=== PATIENT | female | born 1945 | race Caucasian/White ===

== ENCOUNTER → 2017-07-04 07:53 | Outpatient (CLI) | payer MEDICARE, SELFPAY ==
--- NOTE | 2017-07-04 10:31 | NEURO ---
NCS and/or EMG Patient Report Ordering Doctor: Marcio Novak DATE OF SERVICE: 07/04/17 This is a right upper and right lower extremity EMG and nerve conduction study performed on this 71-year-old female with a history of progressive neuropathy most significant in her legs. She experiences burning in the tops of her feet bilaterally as well as the bottoms of her feet. She is a diabetic but her hemoglobin A1c is 6.7. She is on Lyrica and is healthy otherwise. Nerve conduction studies of the right upper and right lower extremities were performed. In the right upper extremity the median motor and sensory distal latencies mildly prolonged with preservation of amplitude and mild reduction of conduction velocity. The ulnar motor and sensory and radial sensory responses are normal. The median and ulnar F waves are normal. In the right lower extremity the sural sensory responses normal. The common peroneal and tibial motor conduction velocities are mildly slowed, with mild prolongation of distal latencies and mild to moderate reduction of amplitudes. The H reflex amplitudes from the bilateral tibial H reflex responses are low, and the tibial and common peroneal F-wave latencies are prolonged. Right upper and right lower extremity needle electromyography was performed. In the right upper extremity muscles evaluated included the first dorsal interosseous, abductor pollicis brevis, brachioradialis, biceps, triceps and deltoid muscles. All muscles in the right upper extremity demonstrated normal insertional activity with absence of pathologic spontaneous activity. Motor unit potential recruitment pattern and amplitude was normal in all muscles tested. In the right lower extremity muscles evaluated included the extensor digitorum brevis, abductor hallucis, medial gastrocnemius, anterior tibialis, vastus lateralis and vastus medialis muscles. Distal muscles demonstrated increased insertional activity with large motor units. These abnormalities resolve more proximally with proximal muscles consistent with length dependent pattern. Impression: 1. Mild to moderate median neuropathy at the right wrist. 2. 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
== END ==
PROVIDERS: Family Provider Family Medicine; PCP Family Medicine; Visit Provider Psychiatry & Neurology Neurology
DX: R20.2 Paresthesia of skin (principal); R20.0 Anesthesia of skin; G62.9 Polyneuropathy, unspecified
CPT/HCPCS: 95886; 95912

== ENCOUNTER → 2017-08-10 15:01 | Outpatient (CLI) | payer MEDICARE, SELFPAY | PROVIDERS: Family Provider Family Medicine; PCP Family Medicine; Visit Provider Physician Assistant Medical | DX: J02.9 Acute pharyngitis, unspecified (principal) | CPT/HCPCS: 87081 ==

== ENCOUNTER → 2017-09-28 15:26 | Outpatient (CLI) | payer MEDICARE, SELFPAY ==
--- NOTE | 2017-09-28 15:31 | MRI_ITS ---
MR Spine Lumbar W/O Contrast INDICATION: chronic low back pain sharp/throbbing pain when standing or walking x 1 yr COMPARISON: X-ray of the lumbar spine January 11, 2017 TECHNIQUE: Axial and sagittal T1 and T2 weighted sequences of the lumbar spine without contrast FINDINGS: There are 5 lumbar-type [id number] vertebral bodies as confirmed on plain film. There is minimal left convex scoliosis of the lower lumbar spine. There is normal lumbar lordosis. Height of the vertebral bodies is preserved. Bone marrow signal demonstrates endplate degenerative changes with edema in the L1-2 endplates on the left and in the L3-4 endplates on the right. No evidence of bone marrow lesion. The conus is located at the L1 level and is morphologically unremarkable. There is normal distribution of the nerve roots of the cauda equina. T12-L1 level demonstrates endplate degenerative changes and central posterior disc protrusion with mild spinal canal narrowing. Neural foramina are not significantly narrowed. L1-2 level demonstrates diffuse disc bulging and disc material is seen extending into the inferior portions of the neuroforamina bilaterally. There is mild spinal canal and bilateral neuroforaminal narrowing. L2-3 level demonstrates diffuse disc bulging and mild facet arthritic changes with mild spinal canal and bilateral neuroforaminal narrowing. L3-4 level demonstrates facet arthritic changes and right predominant endplate degenerative changes. The disc is diffusely bulging and there is a superimposed right paracentral and foraminal disc protrusion resulting in severe right neuroforaminal stenosis. Spinal canal and left neuroforamen are moderately narrowed. L4-5 level demonstrates diffuse disc bulging and a very small focal left paracentral disc extrusion. There is mild to moderate spinal canal and bilateral neuroforaminal narrowing. L5-S1 level demonstrates decrease in disc height and marked endplate degenerative changes. Circumferential disc osteophyte formation is noted and disc osteophytes extend into the neuroforaminal bilaterally, left worse than right. There is bilateral facet joint arthropathy/hypertrophy, left worse than right. Combination of the findings result in moderate right and spinal canal stenosis and severe left neuroforaminal stenosis. MRI/Spine Lumbar (Routine) IMPRESSION: Multilevel degenerative disc disease at the lower thoracic and lumbar spine as detailed above. L1-2: Mild spinal canal and bilateral neuroforaminal narrowing. L2-3: Mild spinal canal and bilateral neuroforaminal narrowing. L3-4: Severe right neuroforaminal stenosis and moderate spinal canal and left neuroforaminal stenosis. L4-5: Mild to moderate spinal canal and bilateral neuroforaminal stenosis. L5-S1: Severe left neuroforaminal stenosis and moderate right and spinal canal stenosis. at 0053 Reported and signed by: María Jordan MD Electronically Signed: María Jordan MD at 0:51 EDT Tel , Service support ,
== END ==
PROVIDERS: Family Provider Family Medicine; PCP Family Medicine; Visit Provider Family Medicine
DX: M54.5 Low back pain (principal); G89.29 Other chronic pain
CPT/HCPCS: 72148

== ENCOUNTER → 2017-10-26 12:15 | Outpatient (CLI) | payer MEDICARE, SELFPAY ==
--- NOTE | 2017-10-26 12:20 | RAD_ITS ---
STUDY: X-RAY - THORACIC SPINE REASON FOR EXAM: Female, 71 years old. Pain. Recent fall TECHNIQUE: 3 view(s) of the thoracic spine were obtained. COMPARISON: None. FINDINGS: Normal kyphosis of the thoracic spine. There is no substantial scoliosis. There is multilevel endplate spondylosis of the thoracic vertebrae. There is multilevel disc space narrowing of the thoracic spine. There is no fracture. There are granulomatous calcifications in the lungs and mediastinum. RAD/Thoracic Spine 3 Views IMPRESSION: Normal x-ray examination of the thoracic spine. Electronically Signed: Coy Severino MD at 12:49 EDT , Service support ,
== END ==
PROVIDERS: Family Provider Family Medicine; PCP Family Medicine; Visit Provider Family Medicine
DX: S23.9XXA Sprain of unspecified parts of thorax, initial encounter (principal)
CPT/HCPCS: 72072

== ENCOUNTER → 2017-12-07 07:57 | Outpatient (CLI) | payer MEDICARE, SELFPAY ==
[2017-12-07 11:46] LABS: Vitamin D,25 Hydroxy 72.7 ng/mL (29.95-100.01)
[2017-12-07 11:58] LABS: ALB/GLOB Ratio 0.9 RATIO (0.9-2.4); AST(SGOT) 46 U/L (15-37); Alanine Aminotransfer ALT/SGPT 29 U/L (13-56); Albumin, Serum 3.6 g/dL (3.2-5.0); Alkaline Phosphatase 99 U/L (45-117); Anion Gap 10 (5-15); BUN 22 mg/dL (7-18); BUN/Creat Ratio 21.2 RATIO (10-20); Calcium,Total 9.3 mg/dL (8.5-10.1); Chloride 107 mmol/L (98-107); Cholesterol 133 mg/dL (200); Creatinine, Serum 1.04 mg/dL (0.55-1.02); EST Glomerular Filtration Rate 55 mL/min (>60); Est Glom Filt Rate - Afr Amer 67 mL/min (>60); Free T3 2.1 pg/mL (2.18-3.98); Glucose 92 mg/dL (74-106); High Density Lipoprotein 37 mg/dL; Potassium 4.7 mmol/L (3.5-5.1); Protein, Total 7.6 g/dL (6.4-8.2); Sodium Level 139 mmol/L (136-145); T4 Free Direct 1.39 ng/dL (0.76-1.46); Thyroid Stim Hormone (TSH) 1.52 uIU/mL (0.358-3.74); Triglycerides 193 mg/dL; Very Low Density Lipoprotein 39 mg/dL (5-40)
[2017-12-07 14:20] LABS: Hemoglobin A1c 6.1 % (4.2-6.3)
== END ==
PROVIDERS: Family Provider Family Medicine; PCP Family Medicine; Visit Provider Internal Medicine Endocrinology, Diabetes & Metabolism
DX: E03.9 Hypothyroidism, unspecified (principal); E55.9 Vitamin D deficiency, unspecified; E11.42 Type 2 diabetes mellitus with diabetic polyneuropathy
CPT/HCPCS: 36415; 80053; 80061; 82306; 83036; 84439; 84443; 84481

== ENCOUNTER → 2018-03-27 10:07 | Outpatient (CLI) | payer MEDICARE, SELFPAY ==
[2018-03-27 12:37] LABS: ALB/GLOB Ratio 0.8 RATIO (0.9-2.4); AST(SGOT) 39 U/L (15-37); Alanine Aminotransfer ALT/SGPT 29 U/L (13-56); Albumin, Serum 3.4 g/dL (3.2-5.0); Alkaline Phosphatase 106 U/L (45-117); Anion Gap 8 (5-15); BUN 16 mg/dL (7-18); BUN/Creat Ratio 22.2 RATIO (10-20); Calcium,Total 8.8 mg/dL (8.5-10.1); Chloride 105 mmol/L (98-107); Creatinine, Serum 0.72 mg/dL (0.55-1.02); EST Glomerular Filtration Rate 85 mL/min (>60); Est Glom Filt Rate - Afr Amer 102 mL/min (>60); Globulin 4.4 g/dL (2.2-4.2); Glucose 133 mg/dL (74-106); Hemoglobin A1c 7.1 % (4.2-6.3); Protein, Total 7.8 g/dL (6.4-8.2); Sodium Level 139 mmol/L (136-145); Thyroid Stim Hormone (TSH) 1.25 uIU/mL (0.358-3.74)
== END ==
PROVIDERS: Family Provider Family Medicine; PCP Family Medicine; Referring Provider Internal Medicine Endocrinology, Diabetes & Metabolism; Visit Provider Internal Medicine Endocrinology, Diabetes & Metabolism
DX: E11.42 Type 2 diabetes mellitus with diabetic polyneuropathy (principal)
CPT/HCPCS: 36415; 80053; 83036; 84443

== ENCOUNTER → 2018-04-16 10:27 | Outpatient (CLI) | payer MEDICARE, SELFPAY ==
--- NOTE | 2018-04-16 10:32 | RAD_ITS ---
STUDY: X-RAY - PELVIS AND LEFT HIP REASON FOR EXAM: Female, 72 years old. Left hip pain. No known injury. TECHNIQUE: 3 views of the pelvis and hip. COMPARISON: AP pelvis and 2 views of the right hip January 11, 2017. FINDINGS: There is a non-specific bowel gas pattern. There are atherosclerotic vascular calcifications of the pelvic arteries. Mild degenerative changes suggested in the visualized lower lumbar spine. Normal bilateral iliac wings, sacroiliac joints and visualized sacrum. Normal bilateral superior and inferior pubic rami. Normal pubic symphysis. Normal bilateral ischial tuberosities. There is no demonstrated osseous destructive lesion or acute fracture. Normal visualized femoral head. Normal acetabulum. Normal hip joint. RAD/HIP, UNI W/ Pelvis 2-3 Views IMPRESSION: Stable mild degenerative changes suggested in the visualized lower lumbar spine, otherwise normal x-ray examination of the pelvis and left hip. Atherosclerotic vascular calcifications again noted. Electronically Signed: Russel Cox MD at 20:00 EST , Service support ,
== END ==
PROVIDERS: Family Provider Family Medicine; PCP Family Medicine; Visit Provider Anesthesiology Pain Medicine
DX: M25.552 Pain in left hip (principal)
CPT/HCPCS: 73502

== ENCOUNTER → 2018-07-23 10:44 | Outpatient (CLI) | payer MEDICARE, SELFPAY ==
[2018-07-23 12:36] LABS: Microalbumin,Random Urine 25.3 mg/L (NO RANGE EST.); Microalbumin:Creatinine Ratio 23.9 mg/g CRE (<30 mg/g CRE)
[2018-07-23 12:54] LABS: ALB/GLOB Ratio 0.9 RATIO (0.9-2.4); AST(SGOT) 29 U/L (15-37); Alanine Aminotransfer ALT/SGPT 16 U/L (13-56); Albumin, Serum 3.7 g/dL (3.2-5.0); Alkaline Phosphatase 79 U/L (45-117); Anion Gap 12 (5-15); BUN 13 mg/dL (7-18); BUN/Creat Ratio 18.7 RATIO (10-20); Calcium,Total 8.9 mg/dL (8.5-10.1); Chloride 106 mmol/L (98-107); Cholesterol 127 mg/dL (200); EST Glomerular Filtration Rate 88 mL/min (>60); Est Glom Filt Rate - Afr Amer 106 mL/min (>60); Globulin 4.2 g/dL (2.2-4.2); Glucose 103 mg/dL (74-106); High Density Lipoprotein 36 mg/dL; Protein, Total 7.9 g/dL (6.4-8.2); Sodium Level 142 mmol/L (136-145); Thyroid Stim Hormone (TSH) 0.68 uIU/mL (0.358-3.74); Triglycerides 188 mg/dL; Very Low Density Lipoprotein 38 mg/dL (5-40)
[2018-07-23 13:03] LABS: Hemoglobin A1c 6.4 % (4.2-6.3)
== END ==
PROVIDERS: Family Provider Family Medicine; PCP Family Medicine; Referring Provider Internal Medicine Endocrinology, Diabetes & Metabolism; Visit Provider Internal Medicine Endocrinology, Diabetes & Metabolism
DX: E11.42 Type 2 diabetes mellitus with diabetic polyneuropathy (principal)
CPT/HCPCS: 36415; 80053; 80061; 82043; 82570; 83036; 84443

== ENCOUNTER 2018-08-19 09:12 | Outpatient (RCR) | payer MEDICARE, SELFPAY ==
--- NOTE | 2018-08-19 10:29 | HP.PTEVAL ---
Patient's Visit Information SULEIMAN RAMSEY is a 72 year old F referred to Physical Therapy by Casie Cabello MD with a diagnosis of LBP. Date of Evaluation: 08/19/18 Physical Therapist: Kristian Ramires, EDWINT, OCS, CSCS - Visit Plan Frequency: 2x /Week Duration: 4-6 Weeks Plan: 2x/week for 3-6, start pool based neutral spine, posture, forward weight shift and balance. Then may need land ex. - Subjective Findings: Chronic back pain and seeing Irineo for close to a year now. He did an ablation 03/31 which did help. Will ahve another injection tomorrow, they did not help much in past. Pain is in Low back, no leg symptoms. If stands too long like in [employer] or walks long distances then she hurts in the L hip and into leg L. Goes away when she sits. Can only walk about 200 feet before it gets uncomfy and can be on feet 15 minutes max. Sitting is only slightly painful. Sleep is OK on ibuprofen at bedtime, fair. 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 Spends day sitting becasue she cannot do alot. Enjoys gardening adn keeping house, bending is not a big problem but to stand up is worse. Basic ADLS are getting done but needs frequent breaks form standing, has a high stool in kitchen that she sits at to prepare food. Ablation seem to wear off a month ago. Fell a month ago and loses abalnce here adn there. Was carrying too much last time and backing up. - Pain LBP Pain Intensity (Out of 10): 1 Pain Intensity Range: 0, 7 Comment: worse walking - Objective Walks slowly with soje pain towards the end of our 250 foot walk in LB. Stands with flat lordosis and kyphotic T/S. reflexes 2/3 patella and achilles. Sensation LE WNL except distally at feet slightly poor to light touch B. Strength LE 4/5 without myotomal abnormalities. LB AROM Mod limited in ext adn min in B SB with pain ext in L hip and LB. Flexion is fulla nd feels good. HS and quads adn hip flexors mildly tight. - Balance Scores Functional Gait Assessment Score: 22 % Disability: 26.6700 CATSIB Score (Max score 120 seconds): 85 - Goals Goal 1:: I approp HEP to minimize LBP and maximize walking/balance Goal Time Frame: 4-6 Weeks Goal 2:: Balance FGA 24 Goal Time Frame: 4-6 Weeks Goal 3:: LBP 50% better adn 3/10 at worst, able to stand at counter without increased pain Goal Time Frame: 4-6 Weeks - Rehabilitation Potential Physical Therapy Diagnosis: LBP/stenosis degenrative changes. Rehabilitation Potential: Fair - Anticipated Interventions Patient/Client Instruction: Educate patient on: Condition, Plan of Care For the Purpose of:: To decrease pain, To improve balance Therapeutic Exercise to Include: Strength training, Balance training, Flexibilty training, In an aquatic setting, Passive ROM, Active ROM, Dynamic Lumbar Stabilization For the Purpose of:: To decrease pain, To improve balance Thank you for the opportunity to evaluate your patient. For Medicare and Medicare HMO plans, please review the plan of care and approve it. It will need to be FAXED BACK to us at [phone] for Medicare purposes. For Medicare only, by signing this I certify the plan of care. Please let me know if there are questions or concerns regarding this plan of care. Physician Signature: Date:
--- NOTE | 2018-11-05 12:23 | HP.PT.NRP ---
HP - Discharge Summary (1) - Patient Information SULEIMAN RAMSEY was seen in my office for initial evaluation on 08/19/18. The following Plan of Care was established for this patient: Initial Frequency: 2x /Week Initial Duration: 4-6 Weeks - Anticipated Interventions Patient/Client Instruction: Educate patient on: Condition, Plan of Care For the Purpose of:: To decrease pain, To improve balance Therapeutic Exercise to Include: Strength training, Balance training, Flexibilty training, In an aquatic setting, Passive ROM, Active ROM, Dynamic Lumbar Stabilization For the Purpose of:: To decrease pain, To improve balance This patient was last seen in our office 08/19/18. Pertinent comments regarding their Physical therapy will appear below: Pt seen for initial evaluationa dn POC formed. Pt neglected to schedule any further visits adn at this point it has been over two months. I will discontinue due to nonattendance. At this point I will be discontinuing this patient from physical therapy. I would be happy to see this patient again in the future if found appropriate by the physician. Thank you! Kristian Ramires, DPT, OCS, CSCS
== END 2018-08-19 19:00 | disposition home or self-care (01) ==
LOC: PT 09:12
PROVIDERS: Family Provider Family Medicine; PCP Family Medicine; Referring Provider Anesthesiology Pain Medicine; Visit Provider Anesthesiology Pain Medicine
DX: M54.5 Low back pain (principal); M54.16 Radiculopathy, lumbar region
CPT/HCPCS: 97110; 97162

== ENCOUNTER → 2018-11-25 | Outpatient (CLI) | payer MEDICARE, SELFPAY ==
[2018-11-25 11:33] LABS: ALB/GLOB Ratio 0.9 RATIO (0.9-2.4); AST(SGOT) 30 U/L (15-37); Alanine Aminotransfer ALT/SGPT 19 U/L (13-56); Albumin, Serum 3.5 g/dL (3.2-5.0); Alkaline Phosphatase 157 U/L (45-117); Anion Gap 9 (5-15); BUN 17 mg/dL (7-18); BUN/Creat Ratio 24.7 RATIO (10-20); Calcium,Total 9.2 mg/dL (8.5-10.1); Chloride 108 mmol/L (98-107); Creatinine, Serum 0.69 mg/dL (0.55-1.02); EST Glomerular Filtration Rate 89 mL/min (>60); Est Glom Filt Rate - Afr Amer 108 mL/min (>60); Glucose 175 mg/dL (74-106); Potassium 3.8 mmol/L (3.5-5.1); Protein, Total 7.5 g/dL (6.4-8.2); Sodium Level 143 mmol/L (136-145); T4 Free Direct 1.27 ng/dL (0.76-1.46)
[2018-11-25 12:14] LABS: Hemoglobin A1c 6.9 % (4.2-6.3)
== END | disposition home or self-care (01) ==
LOC: MTLAB 08:32
PROVIDERS: Family Provider Family Medicine; PCP Family Medicine; Referring Provider Internal Medicine Endocrinology, Diabetes & Metabolism; Visit Provider Internal Medicine Endocrinology, Diabetes & Metabolism
DX: E11.42 Type 2 diabetes mellitus with diabetic polyneuropathy (principal)
CPT/HCPCS: 36415; 80053; 83036; 84439; 84443

== ENCOUNTER → 2019-01-16 | Outpatient (CLI) | payer MEDICARE, BC, SELFPAY ==
--- NOTE | 2019-01-16 17:48 | MRI_ITS ---
STUDY: MRI LUMBAR SPINE WITHOUT CONTRAST REASON FOR EXAM: Female, 73 years old. 18 months of back pain. TECHNIQUE: Standardized fat and water weighted pulse sequences were obtained in the sagittal and axial planes. COMPARISON: 09/28/2017 MRI lumbar spine. FINDINGS: No fracture or acute signal changes in the vertebrae or disks. Multilevel disc desiccation, and degenerative endplate signal changes and irregularity, most prominent at L3-4 and L5-S1, similar to previous. Alignment remains anatomic. Conus terminates at the level of the middle to vertebral body with normal contour and signal. Thecal sac terminates at the S1-S2 level. No acute or concerning findings in the paraspinal soft tissues. At T12-L1, small diffuse disc bulge and central protrusion with mild bilateral facet degeneration causes only mild narrowing, similar to previous. At L1-2, small diffuse disc bulge and mild bilateral facet degeneration causes only mild narrowing with no evidence of nerve root impingement, similar to previous. At L2-3, moderate diffuse disc bulge and moderate bilateral facet degeneration causes mild narrowing of the bilateral subarticular zones and foramina, disc abuts but does not displace the traversing bilateral L3 nerve roots. This level is also similar to prior. At L3-4, diffuse disc bulge and marked bilateral facet degeneration causes moderate narrowing of the spinal canal. Disc displaces posteriorly but does not compress the traversing bilateral L4 nerve roots in the subarticular zones. Osteophyte and disc extends into and markedly narrows the right foramen, moderately compressing the exiting right L3 nerve root. Only mild left foraminal narrowing. At L4-5, prominent epidural fat mildly effaces the lateral aspect of the spinal canal, more prominent on the left, mildly displacing the left greater than right traversing L5 nerve roots in the lateral recesses at the level of the L5 pedicles. More inferiorly, small disc bulge and moderate bilateral facet degeneration causes mild right and moderate left subarticular zone narrowing, with disc mildly displacing posteriorly but not compressing the traversing left L5 nerve root in the left subarticular zone. Only mild foraminal narrowing. This is all similar to prior. At L5-S1, prominent epidural fat mildly effaces the anterolateral aspects of the spinal canal. Diffuse disc bulge with underlying vertebral body osteophytes moderately narrows the left subarticular zone, displacing posteriorly and mildly compressing the traversing left S1 nerve root. Only mild right subarticular zone narrowing. Vertebral body osteophytes extend into and moderately narrow the bilateral foramina, mildly effacing the exiting bilateral L4 nerve roots. This level is similar to prior. MRI/Spine Lumbar (Routine) IMPRESSION: Multilevel prominent degenerative changes, and prominent epidural fat at the levels of L4 and L5, similar to the previous study. This includes a high-grade narrowing of the right L3-4 foramen, and several other areas of moderate narrowing as outlined above. Electronically Signed: Aleks Miller, at 22:14 EDT Tel , Service support ,
== END | disposition home or self-care (01) ==
LOC: MRI 17:41
PROVIDERS: Family Provider Family Medicine; PCP Family Medicine; Referring Provider Anesthesiology Pain Medicine; Visit Provider Anesthesiology Pain Medicine
DX: M54.9 Dorsalgia, unspecified (principal); M79.606 Pain in leg, unspecified; M54.5 Low back pain; M54.16 Radiculopathy, lumbar region
CPT/HCPCS: 72148; 97113

== ENCOUNTER 2019-01-31 09:30 | Outpatient (RCR) | payer MEDICARE, BC, SELFPAY ==
--- NOTE | 2018-12-11 15:58 | HP.PTEVAL_ITS ---
Patient's Visit Information SULEIMAN RAMSEY is a 73 year old F referred to Physical Therapy by Casie Cabello MD with a diagnosis of LBP. Date of Evaluation: 12/11/18 Physical Therapist: Kristian Ramires, DPT, OCS, CSCS - Visit Plan Frequency: 2x /Week Duration: 4-6 Weeks Plan: 2x/week for 4 weeks for aquatic ex for. lumbar rotation adn flexion, HS and quad stretch. DLS with neural spine and general ex in pool and progress to I. - Subjective Findings: Was in for PT evaluation earlier in the year but could not do PT due to cataracts. Has LBP OA and stenosis. Has pain constantly. Cannot stand or walk very far at all. Has stool in kitchen that she sits at. Has been doing that for 2 years. Pain is in LB and can be 7/10 if overdoes it, comfortable sitting as long as it is not for too long. Does not sleep well but that is not due to back. Seen [facility] for last 1.5 years for injections and pain meds. Has neuropathy in tops of both feet from DM. Activities are very limited at home in that she cannot do heavy housekeeping and cannot be on feet for long periods of time. Hard to vaccuum. Basic ADLS are OK just painfula t times. Hobbies: Gardening whcih she does because bending does not bother her. Ex: every am does [facility] whcih helps. 50x - Pain LBP Pain Intensity (Out of 10): 1 Pain Intensity Range: 1, 6 - Objective Walks with stiff spine adn slow but I. Trasnfers I. LB AROM ext painful and mod limited, SB min limited and stiff. flexion mod limited and feels better. Pelvic tilt movement good in supine and harder in standing but able. reflexes 1/3 patella and achilles B. Sensation diminished in feet B minimally. Strength in LE 4-/5 in LE. Walking about 200 feet before back pressure kicks in. Steps are reciprocal with one rail. - Balance Scores Functional Gait Assessment Score: 23 % Disability: 23.3400 - Goals Goal 1:: Stand at mass on sunday without having to sit. Goal Time Frame: 4-6 Weeks Goal 2:: Pt feel 75% better in LB and I approp HEP to maintain it. Goal Time Frame: 4-6 Weeks Goal 3:: Washes dishes without having to sit down. - Rehabilitation Potential Physical Therapy Diagnosis: LBP and stenosis form degeneration in lumbar. Rehabilitation Potential: Fair - Anticipated Interventions Patient/Client Instruction: Educate patient on: Condition, Plan of Care For the Purpose of:: To decrease pain, To increase tolerance to activity /condition/position Therapeutic Exercise to Include: Strength training, Flexibilty training, Gait and locomotor training, In an aquatic setting, Active ROM, Dynamic Lumbar S tabilization For the Purpose of:: To decrease pain, To improve muscle performance and motor function, To improve gait and locomotor functions Thank you for the opportunity to evaluate your patient. For Medicare and Medicare HMO plans, please review the plan of care and approve it. It will need to be FAXED BACK to us at [phone] for Medicare purposes. For Medicare only, by signing this I certify the plan of care. Please let me know if there are questions or concerns regarding this plan of care. Physician Signature:_ Date:
--- NOTE | 2019-01-09 09:41 | HP.PTREVAL ---
Casie Cabello MD, It has been my pleasure to treat SULEIMAN RAMSEY over the last 9 visits for LBP. Please see the progress note below for an update on the physical therapy plan of care! Subjective: Been in the pool 2x/week. Was out in the yard yesterday working adn felt like balance was quite a bit better. LBP is unchanged. Warm water feels good while in it. Pain in LB is 5/10. Typically 3/10 depending on if on feet alot. Walking adn stadning stillc ause pain and sitting feels good. Farily short time of a couple minutes on feet and back starts to hurt. Sleep is not great, not sure she can get comfortable in bed. No f/u with pain doctor noted. Attempting to get ortho referral to [facility]. Injections aren't helping. Finding it hard to focus on neutral spine position when standing or walking. Patient wishes to continue with water ex as balance improving. wants ortho referral for backa dn to [facility] water ex. Objective/Function: L/S AROM WNL and painfree today. FGA +3 today. Balance is better adn back pain not subjectively improving but moving better. Pt not with solid exit strategy. Wants to try adn join pool and needs further instruct for this and HEP. Doing well and fair prognosis to new goals. Plan Plan: 2x/week in water to progress to I(pt to consider joining here or elsewhere adn continue I). Please include progression of flexion adn neutral spine and balance HEP with pics to tolerance. Goals Goal 1:: Stand at mass on sunday without having to sit. Goal Time Frame: 4-6 Weeks Goal Progress: 5 minutes Goal 2:: Pt feel 75% better in LB and I approp HEP to maintain it. Goal Time Frame: 4-6 Weeks Goal Progress: Not Progressing Goal 3:: Washes dishes without having to sit down. Goal Progress: sits on stool. Goal 4:: <25% disability on oswestry Goal Time Frame: 2-4 Weeks Goal Progress: NEW GOAL Goal 5:: Ia pprop Home or pool program to manage symptoms. Goal Time Frame: 2-4 Weeks Goal Progress: NEW GOAL Anticipated Interventions Patient/Client Instruction: Educate patient on: Condition, Plan of Care For the Purpose of:: To decrease pain, To increase tolerance to activity/condition/position Therapeutic Exercise to Include: Strength training, Flexibilty training, Gait and locomotor training, In an aquatic setting, Active ROM, Dynamic Lumbar Stabilization For the Purpose of:: To decrease pain, To improve muscle performance and motor function, To improve gait and locomotor functions Please do not hesitate to contact me at [phone] by phone or if you have questions or concerns regarding this new plan of care! Sincerely, Kristian Ramires, EDWINT, OCS, CSCS
--- NOTE | 2019-01-31 10:00 | HP.PTDCSUM_ITS ---
HP - PT D/C Summary It has been my pleasure to treat SULEIMAN RASMEY under orders from Casie Cabello MD, for the diagnosis of LBP for a total of 16 visit(s). Discharge Date: 01/31/19 Please see the following information for a summary of their discharge status. - Subjective Subjective: Getting better. Working in the yard and balance feels better. Feel better in general. Pain level is more relaxed but still hurts 4/10 most of day. Sitting is slightly better than being up and about. Sleep is sometimes uncomfortable. No f/u scheduled with Dr. Cabello. Asked for referral to ortho at [facility]. Wants to join but hours here are not good. Checking out local pools. - Pain LBP Pain Intensity (Out of 10): 3 - Overall Improvement % Improvement: 40 - Objective Objective/Function: LB ROM is good but still some increased discomfort with ext this morning that she says would be better if she had loosened up. Flexiona dn SB are good. Walking and steps are I without rail. FGA is high end of normal for her age. OVERALL MOVING AND FEELING BETTER BUT PAIN STILL LIMITING BEING ON FEET ADN ACTIVITIY. WANTS TO SEE AA SPECIALIST AND WILL TRY TO GO THROUGH DR. Mechelle AVALOS FOR THIS. - Goals Goal 1:: Stand at mass on sunday without having to sit. Goal Progress: 5 minutes Goal 2:: Pt feel 75% better in LB and I approp HEP to maintain it. Goal Progress: Not Progressing Goal 3:: Washes dishes without having to sit down. Goal Progress: sits on stool. Goal 4:: <25% disability on oswestry Goal Progress: Not Progressing Goal 5:: Ia pprop Home or pool program to manage symptoms. Goal Progress: Goal Met - Plan Plan: D/C TO I POOL PROGRAM IN [facility]. - D/C Information Discharge Comments: [facility] Wishes to f/u with Dr. Cabello and possibly seek ortho referral. If there are questions or concerns regarding this patient's physical therapy, please feel free to call me at [phone]. Thank you for the referral of this patient. Sincerely, Kristian Ramires, DPT, OCS, CSCS
== END 2019-01-31 19:00 | disposition home or self-care (01) ==
LOC: PT 09:30
PROVIDERS: Family Provider Family Medicine; PCP Family Medicine; Referring Provider Anesthesiology Pain Medicine; Visit Provider Anesthesiology Pain Medicine
DX: M54.5 Low back pain (principal); M54.16 Radiculopathy, lumbar region
CPT/HCPCS: 97113; 97162; 97530

== ENCOUNTER → 2019-02-28 | Outpatient (CLI) | payer MEDICARE, BC, SELFPAY ==
[2019-01-24 12:21] VITALS: BMI 33.5
[2019-02-28 13:03] LABS: ALB/GLOB Ratio 0.9 RATIO (0.9-2.4); AST(SGOT) 26 U/L (15-37); Alanine Aminotransfer ALT/SGPT 19 U/L (13-56); Albumin, Serum 3.7 g/dL (3.2-5.0); Alkaline Phosphatase 117 U/L (45-117); Anion Gap 6 (5-15); BUN 23 mg/dL (7-18); BUN/Creat Ratio 28.5 RATIO (10-20); Chloride 109 mmol/L (98-107); Cholesterol 132 mg/dL (200); Creatinine, Serum 0.81 mg/dL (0.55-1.02); EST Glomerular Filtration Rate 74 mL/min (>60); Est Glom Filt Rate - Afr Amer 89 mL/min (>60); Glucose 175 mg/dL (74-106); High Density Lipoprotein 36 mg/dL; Potassium 4.2 mmol/L (3.5-5.1); Protein, Total 7.7 g/dL (6.4-8.2); Sodium Level 138 mmol/L (136-145); Triglycerides 198 mg/dL; Very Low Density Lipoprotein 40 mg/dL (5-40)
[2019-02-28 13:05] LABS: Absolute Lymphocyte Count 2.77 X10^3/uL (0.83-4.51); Absolute Neutrophil Count 6.1 X10^3/uL (2.0-7.7); Basophil# 0.13 X10^3/uL; Basophil% 1.3 % (0-1); Eosinophil# 0.44 X10^3/uL; Eosinophils% 4.3 % (0-5); Hematocrit 39.2 % (37-47); Hemoglobin 12.7 g/dL (12.0-15.0); Lymphocyte # 2.77 X10^3/ul (4.0); Lymphocyte % 27.3 % (19-41); Mean Corp Hgb Conc 32.4 g/dL (32-36); Mean Corpuscular Volume 92.7 fL (81-99); Mean Platelet Vol. 11.1 fl (6.2-12.0); Monocyte% 6.9 % (0-10); NRBC Flagged by Analyzer 0 % (0-5); Neutrophil # 6.06 X10^3/uL (2.7-7.7); Neutrophil % 59.7 % (47-70); Platelet Count 267 K/mm3 (150-450); RBC Distribution Width CV 13.2 % (11.6-14.6); RBC Distribution Width SD 44.4 fl (35.1-43.9); Red Blood Count 4.23 M/mm3 (4.2-5.4); White Blood Count 10.2 K/mm3 (4.4-11.0)
[2019-02-28 13:09] LABS: Vitamin B12 257 pg/mL (211-911)
[2019-03-04 14:42] LABS: Vitamin B1, Thiamine 104.7 nmol/L (66.5-200.0)
== END | disposition home or self-care (01) ==
PROVIDERS: Family Provider Family Medicine; PCP Family Medicine; Referring Provider Family Medicine; Visit Provider Family Medicine
DX: I10 Essential (primary) hypertension (principal); G62.9 Polyneuropathy, unspecified; E78.5 Hyperlipidemia, unspecified
CPT/HCPCS: 36415; 80053; 80061; 82607; 84425; 85025

== ENCOUNTER → 2019-03-10 | Outpatient (CLI) | payer MEDICARE, BC, SELFPAY ==
[2019-01-24 12:21] VITALS: BMI 33.5
--- NOTE | 2019-03-10 10:58 | CDU_ITS ---
Reason For Study: carotid stenosis Rt. Velocities/BP Lt. Velocities/BP Prox CCA 102.1/17.3 cm/sec. Prox CCA 92.6/19.0 cm/sec. Mid CCA 90.4/14.7 cm/sec. Mid CCA 88.2/21.2 cm/sec. Dist CCA 70.8/14.7 cm/sec. Dist CCA 80.5/19.0 cm/sec. Prox ICA 49.9/13.4 cm/sec. Prox ICA 77.2/16.0 cm/sec. Mid ICA 59.1/18.6 cm/sec. Mid ICA 72.9/21.2 cm/sec. Dist ICA 51.2/14.7 cm/sec. Dist ICA 55.3/17.9 cm/sec. Rt. ICA/CCA = .7. Lt. ICA/CCA = .9. Prox ECA 98.2/13.4 cm/sec. Prox ECA 84.9/12.4 cm/sec. Rt. Vert. 29.6/7.8 cm/sec. Lt. Vert. 45.4/11.3 cm/sec. Right Extracranial There is homogeneous, smooth atherosclerotic plaque noted in the right common carotid artery. There is heterogeneous, irregular atherosclerotic plaque noted in the right internal carotid artery. There is intimal thickening but no significant atherosclerotic plaque noted in the right external carotid artery. Antegrade flow is noted in the right vertebral artery. Left Extracranial There is intimal thickening but no significant atherosclerotic plaque noted in the left common carotid artery. There is heterogeneous, irregular atherosclerotic plaque noted in the left internal carotid artery. There is intimal thickening but no significant atherosclerotic plaque noted in the left external carotid artery. Antegrade flow is noted in the left vertebral artery. Procedure Carotid Duplex [id number]. The exam was diagnostic. Exam performed in department. Interpretation Summary Mild (<50%) stenosis right extracranial internal carotid. Mild (<50%) stenosis left extracranial internal carotid. Flow within the vertebral arteries is antegrade bilaterally. Ordering Physician: Abhinav Bosch Performed By: Alonso Cardoza RVT
== END | disposition home or self-care (01) ==
LOC: CVS 10:57
PROVIDERS: Family Provider Family Medicine; PCP Family Medicine; Referring Provider Family Medicine; Visit Provider Family Medicine
DX: I65.23 Occlusion and stenosis of bilateral carotid arteries (principal)
CPT/HCPCS: 93880

== ENCOUNTER → 2019-04-14 11:10 | Outpatient (CLI) | payer MEDICARE, BC, SELFPAY ==
[2019-01-24 12:21] VITALS: BMI 33.5
[2019-04-14 12:37] LABS: Hemoglobin A1c 6.2 % (4.2-6.3)
[2019-04-14 12:56] LABS: ALB/GLOB Ratio 0.8 RATIO (0.9-2.4); AST(SGOT) 36 U/L (15-37); Alanine Aminotransfer ALT/SGPT 18 U/L (13-56); Albumin, Serum 3.7 g/dL (3.2-5.0); Alkaline Phosphatase 90 U/L (45-117); Anion Gap 10 (5-15); BUN 18 mg/dL (7-18); BUN/Creat Ratio 24.5 RATIO (10-20); Chloride 105 mmol/L (98-107); Cholesterol 151 mg/dL (200); Creatinine, Serum 0.73 mg/dL (0.55-1.02); EST Glomerular Filtration Rate 83 mL/min (>60); Est Glom Filt Rate - Afr Amer 100 mL/min (>60); Globulin 4.4 g/dL (2.2-4.2); Glucose 100 mg/dL (74-106); High Density Lipoprotein 38 mg/dL; Potassium 3.9 mmol/L (3.5-5.1); Protein, Total 8.1 g/dL (6.4-8.2); Sodium Level 138 mmol/L (136-145); Thyroid Stim Hormone (TSH) 0.64 uIU/mL (0.358-3.74); Triglycerides 216 mg/dL; Very Low Density Lipoprotein 43 mg/dL (5-40)
== END ==
PROVIDERS: Family Provider Family Medicine; PCP Family Medicine; Referring Provider Internal Medicine Endocrinology, Diabetes & Metabolism; Visit Provider Internal Medicine Endocrinology, Diabetes & Metabolism
DX: E11.9 Type 2 diabetes mellitus without complications (principal); E03.9 Hypothyroidism, unspecified
CPT/HCPCS: 36415; 80053; 80061; 83036; 84443

== ENCOUNTER 2019-05-05 12:00 | Outpatient (RCR) | payer MEDICARE, BC, SELFPAY ==
[2019-01-24 12:21] VITALS: BMI 33.5
--- NOTE | 2019-04-15 11:28 | HP.PTEVAL ---
Patient's Visit Information SULEIMAN RAMSEY is a 73 year old F referred to Physical Therapy by Giovanni Reyes DO with a diagnosis of B posterior microdecompression 03/12/19. Date of Evaluation: 04/15/19 Physical Therapist: Kristian Ramires, DPT, OCS, CSCS - Visit Plan Frequency: 2x /Week Duration: 4-6 Weeks Plan: 2x/week for 4-6 weeks. 1. incision massage and STM LB. 2. LB ROM and progress to HEP. 3. Instruct and progress core adn postural adn EL strength via HEP. Consider pool or gym as pain necessitates or patient desires after on HEP. - Subjective Findings: Had water therapy prior to surgery and got stronger but did not help back pain. Therefore had 03/12/19 where she had a microdiscectomy/decompression. Since then has been laying around. No exercises but gave prescription 2 weeks ago. Has been doing knees to chest ex but was fearful. Pain since surgery has been about the same or slightly worse. Pain is across LB and incision area. No leg symptoms before or now. Pain is 5/10 at worst and 1/10 tolerable at rest sitting or lying. Worse when up and about. Sleeping is not good as pain keeps her up and is hard to get to sleep. Getting 4-6 at time and normal is 7. Basic ADLs are gettign done at home with limitations, no vaccuming, not lifting anything with weight, avoids bending, avoids twisting. Spends day doing house hold chores including food adn dishes. Sits on tall stool in kitchen to prepare. Needs to sit to peel potatoes. Puts the laundrya way. Spends day watching TV on couch or lying. Has granddaughter for Thanksgiving and watched all [employer]. Has brace she wears if on feet alot whcih seems to help. - Pain LBP Pain Intensity (Out of 10): 1 Pain Intensity Range: 1, 5 - Objective Walks slow but steady. Trasnfers I. Mod I. L/S ext max limited adn painful Posterior. flexion full and SB mod limited without pain. reflexes 2/3 patella and achilles. Sensation LE WNL to gross light touch. Strength LE 4-/5 without increased pain. - slump test. - SLR. Incision has healed well with mild scar tissue palpable adn mod discomfort. - Balance Scores Functional Gait Assessment Score: 27 % Disability: 10.0000 - Goals Goal 1:: Sleep without interruption from pain. Goal Time Frame: 4-6 Weeks Goal 2:: Patient feel 75% diminihsed pain to 1/10 at worst and manageable. Goal Time Frame: 4-6 Weeks Goal 3:: Patient back to all Basic ADLs without increased pain. Goal Time Frame: 4-6 Weeks Goal 4:: I appropriate HEP to manage symptoms. Goal Time Frame: 4-6 Weeks - Rehabilitation Potential Physical Therapy Diagnosis: LBP stauts post dedcompression. Rehabilitation Potential: Good - Anticipated Interventions Patient/Client Instruction: Educate patient on: Condition, Plan of Care For the Purpose of:: To decrease pain, To increase ROM, To improve muscle performance and motor function, To increase tolerance to activity/condition/position, To improve ability of physical actions for home/community/work/leisure, To improve gait and locomotor functions Therapeutic Exercise to Include: Strength training, Postural training, Flexibilty training, Gait and locomotor training, Passive ROM, Active ROM, Dynamic Lumbar Stabilization For the Purpose of:: To decrease pain, To increase ROM, To improve muscle performance and motor function, To increase tolerance to activity/condition/position, To improve ability of physical actions for home/community/work/leisure Manual Therapy Techniques to Include: Scar massage, Soft tissue mobilization For the Purpose of:: To decrease pain, To increase ROM Thank you for the opportunity to evaluate your patient. For Medicare and Medicare HMO plans, please review the plan of care and approve it. It will need to be FAXED BACK to us at [phone] for Medicare purposes. For Medicare only, by signing this I certify the plan of care. Please let me know if there are questions or concerns regarding this plan of care. Physician Signature: Date:
--- NOTE | 2019-05-05 12:54 | HP.PTDCSUM ---
HP - PT D/C Summary It has been my pleasure to treat SULEIMAN RAMSEY under orders from Giovanni Reyes DO, for the diagnosis of B posterior microdecompression 03/12/19 for a total of 6 visit(s). Discharge Date: 05/05/19 Please see the following information for a summary of their discharge status. - Subjective Subjective: Getting stronger. Less incision pain, back still hurts to 4/10 intermittently. Worse with walkign or up on feet alot. Feels better at rest. Ex treating well at home and feels like could do water. No f/u with doctor. Activities at home pretty normal. Sleeping better. - Pain LBP Pain Intensity (Out of 10): 3 - Overall Improvement % Improvement: 40 - Objective Objective/Function: Walking normal, steps reciprocal with one rail. AROM without increased pain today and WFL. Transferring easily and I. Very functional and slowly feeling better. Will continue on her own in pool and with HEP and call if problems. - Goals Goal 1:: Sleep without interruption from pain. Goal Progress: Progressing Goal 2:: Patient feel 75% diminihsed pain to 1/10 at worst and manageable. Goal Progress: Progressing Goal 3:: Patient back to all Basic ADLs without increased pain. Goal Progress: Goal Met, hesitantly Goal 4:: I appropriate HEP to manage symptoms. Goal Progress: Goal Met - Plan Plan: d/c to HEP and water ex. - D/C Information Discharge Comments: Pt doing well and will cotninue herself via HEP and water ex adn contact doctor if problems. If there are questions or concerns regarding this patient's physical therapy, please feel free to call me at [phone]. Thank you for the referral of this patient. Sincerely, Kristian Ramires, DPT, OCS, CSCS
== END 2019-05-05 19:00 | disposition home or self-care (01) ==
LOC: PT 12:00
PROVIDERS: Family Provider Family Medicine; PCP Family Medicine; Referring Provider Orthopaedic Surgery; Visit Provider Orthopaedic Surgery
DX: Z48.89 Encounter for other specified surgical aftercare (principal)
CPT/HCPCS: 97110; 97140; 97162; 97530

== ENCOUNTER → 2019-07-02 11:11 | Outpatient (CLI) | payer MEDICARE, BC, SELFPAY ==
[2019-01-24 12:21] VITALS: BMI 33.5
[2019-07-02 12:31] LABS: Absolute Lymphocyte Count 3.01 X10^3/uL (0.83-4.51); Absolute Neutrophil Count 5.8 X10^3/uL (2.0-7.7); Eosinophil# 0.51 X10^3/uL; Hematocrit 38.5 % (37-47); Lymphocyte # 3.01 X10^3/ul (4.0); Lymphocyte % 29.7 % (19-41); Mean Corp Hgb Conc 31.2 g/dL (32-36); Mean Corpuscular Hgb 27.5 pg (27.0-32.0); Mean Corpuscular Volume 88.3 fL (81-99); Mean Platelet Vol. 10.2 fl (6.2-12.0); Monocyte# 0.65 X10^3/uL; Monocyte% 6.4 % (0-10); NRBC Flagged by Analyzer 0 % (0-5); Neutrophil # 5.84 X10^3/uL (2.7-7.7); Neutrophil % 57.5 % (47-70); Platelet Count 339 K/mm3 (150-450); RBC Distribution Width CV 13.9 % (11.6-14.6); RBC Distribution Width SD 44.5 fl (35.1-43.9); Red Blood Count 4.36 M/mm3 (4.2-5.4); White Blood Count 10.2 K/mm3 (4.4-11.0)
[2019-07-02 13:07] LABS: ALB/GLOB Ratio 0.8 RATIO (0.9-2.4); AST(SGOT) 29 U/L (15-37); Alanine Aminotransfer ALT/SGPT 19 U/L (13-56); Albumin, Serum 3.5 g/dL (3.2-5.0); Alkaline Phosphatase 104 U/L (45-117); Anion Gap 7 (5-15); BUN 14 mg/dL (7-18); BUN/Creat Ratio 19.2 RATIO (10-20); Calcium,Total 9.2 mg/dL (8.5-10.1); Chloride 108 mmol/L (98-107); Cholesterol 173 mg/dL (200); Creatinine, Serum 0.73 mg/dL (0.55-1.02); EST Glomerular Filtration Rate 83 mL/min (>60); Est Glom Filt Rate - Afr Amer 100 mL/min (>60); Globulin 4.2 g/dL (2.2-4.2); Glucose 188 mg/dL (74-106); High Density Lipoprotein 34 mg/dL; Protein, Total 7.7 g/dL (6.4-8.2); Sodium Level 138 mmol/L (136-145); Triglycerides 263 mg/dL; Very Low Density Lipoprotein 53 mg/dL (5-40)
== END ==
PROVIDERS: PCP Family Medicine; Referring Provider Family Medicine; Visit Provider Family Medicine
DX: I10 Essential (primary) hypertension (principal); E78.5 Hyperlipidemia, unspecified; E53.1 Pyridoxine deficiency
CPT/HCPCS: 36415; 80053; 80061; 85025

== ENCOUNTER → 2020-01-07 12:59 | Outpatient (CLI) | payer MEDICARE, BC, SELFPAY ==
[2019-01-24 12:21] VITALS: BMI 33.5
[2020-01-07 13:15] LABS: Mucous, Urine 0 SEEN /hpf (<or=2+); Red Blood Cells-Urine 0 SEEN /hpf (0-5)
[2020-01-07 15:44] LABS: Color, Urine Yellow (Yellow); Glucose, Dipstick Normal (Normal); Ketone-Dipstick Negative (Negative); Leukocyte Esterase-Dipstick 500 /ul (Negative); Nitrite-Dipstick Negative (Negative); Occult Blood-Urine 10 /ul (Negative); Protein-Dipstick 15 mg/dl (Negative); Urine Bilirubin Dipstick Negative (Negative); Urine Clarity Sl. Cloudy (Clear); Urine Urobilinogen Normal (Normal)
[2020-01-07 15:56] LABS: Squamous Epithelial Cells - UA 0-5 SEEN /hpf (5-10); White Blood Cells 25-50 SEEN /hpf (0-5)
[2020-01-07 15:57] LABS: Bacteria RARE /hpf (None Seen)
[2020-01-07 16:05] LABS: Vitamin D,25 Hydroxy 45.7 ng/mL
[2020-01-07 16:08] LABS: Hemoglobin A1c 7.2 % (3.8-5.6)
[2020-01-07 16:22] LABS: Microalbumin,Random Urine 24.1 mg/L (NO RANGE EST.)
[2020-01-07 16:23] LABS: ALB/GLOB Ratio 0.8 RATIO (0.9-2.4); AST(SGOT) 40 U/L (15-37); Alanine Aminotransfer ALT/SGPT 23 U/L (13-56); Albumin, Serum 3.6 g/dL (3.2-5.0); Alkaline Phosphatase 104 U/L (45-117); Anion Gap 6 (5-15); BUN 20 mg/dL (7-18); BUN/Creat Ratio 21.6 RATIO (10-20); Calcium,Total 8.7 mg/dL (8.5-10.1); Chloride 106 mmol/L (98-107); Cholesterol 152 mg/dL (200); Creatinine, Serum 0.92 mg/dL (0.55-1.02); EST Glomerular Filtration Rate 63 mL/min (>60); Est Glom Filt Rate - Afr Amer 76 mL/min (>60); Globulin 4.6 g/dL (2.2-4.2); Glucose 147 mg/dL (74-106); High Density Lipoprotein 32 mg/dL; Potassium 4.6 mmol/L (3.5-5.1); Protein, Total 8.2 g/dL (6.4-8.2); Sodium Level 136 mmol/L (136-145); Triglycerides 220 mg/dL; Very Low Density Lipoprotein 44 mg/dL (5-40)
== END ==
PROVIDERS: PCP Family Medicine; Referring Provider Family Medicine; Visit Provider Family Medicine
DX: E11.9 Type 2 diabetes mellitus without complications (principal); E03.9 Hypothyroidism, unspecified; G62.9 Polyneuropathy, unspecified; E55.9 Vitamin D deficiency, unspecified; N18.2 Chronic kidney disease, stage 2 (mild)
CPT/HCPCS: 36415; 80053; 80061; 81001; 82043; 82306; 83036; 84443

== ENCOUNTER → 2020-05-11 11:05 | Outpatient (CLI) | payer MEDICARE, BC, SELFPAY ==
[2019-01-24 12:21] VITALS: BMI 33.5
[2020-05-11 12:14] LABS: Absolute Lymphocyte Count 3.36 X10^3/uL (0.83-4.51); Absolute Neutrophil Count 7.3 X10^3/uL (2.0-7.7); Basophil# 0.11 X10^3/uL; Basophil% 0.9 % (0-1); Eosinophil# 0.46 X10^3/uL; Eosinophils% 3.8 % (0-5); Hematocrit 40.7 % (37-47); Hemoglobin 12.9 g/dL (12.0-15.0); Lymphocyte # 3.36 X10^3/ul (4.0); Lymphocyte % 27.9 % (19-41); Mean Corp Hgb Conc 31.7 g/dL (32-36); Mean Corpuscular Hgb 29.5 pg (27.0-32.0); Mean Corpuscular Volume 93.1 fL (81-99); Mean Platelet Vol. 10.8 fl (6.2-12.0); Monocyte# 0.76 X10^3/uL; Monocyte% 6.3 % (0-10); NRBC Flagged by Analyzer 0 % (0-5); Neutrophil # 7.29 X10^3/uL (2.7-7.7); Neutrophil % 60.6 % (47-70); Platelet Count 328 K/mm3 (150-450); RBC Distribution Width CV 13.2 % (11.6-14.6); RBC Distribution Width SD 44.7 fl (35.1-43.9); Red Blood Count 4.37 M/mm3 (4.2-5.4)
[2020-05-11 13:08] LABS: ALB/GLOB Ratio 0.8 RATIO (0.9-2.4); AST(SGOT) 39 U/L (15-37); Alanine Aminotransfer ALT/SGPT 20 U/L (13-56); Albumin, Serum 3.7 g/dL (3.2-5.0); Alkaline Phosphatase 89 U/L (45-117); Anion Gap 8 (5-15); BUN 14 mg/dL (7-18); BUN/Creat Ratio 18.5 RATIO (10-20); Chloride 103 mmol/L (98-107); Cholesterol 159 mg/dL (200); Creatinine, Serum 0.76 mg/dL (0.55-1.02); EST Glomerular Filtration Rate 80 mL/min (>60); Est Glom Filt Rate - Afr Amer 96 mL/min (>60); Globulin 4.4 g/dL (2.2-4.2); Glucose 150 mg/dL (74-106); High Density Lipoprotein 36 mg/dL; Protein, Total 8.1 g/dL (6.4-8.2); Sodium Level 137 mmol/L (136-145); Triglycerides 279 mg/dL; Very Low Density Lipoprotein 56 mg/dL (5-40)
== END ==
PROVIDERS: PCP Family Medicine; Referring Provider Family Medicine; Visit Provider Family Medicine
DX: I10 Essential (primary) hypertension (principal); E78.5 Hyperlipidemia, unspecified
CPT/HCPCS: 36415; 80053; 80061; 85025

== ENCOUNTER → 2020-05-17 11:36 | Outpatient (CLI) | payer MEDICARE, BC, SELFPAY ==
[2019-01-24 12:21] VITALS: BMI 33.5
[2020-05-17 16:09] LABS: Microalbumin,Random Urine 28.8 mg/L (NO RANGE EST.)
[2020-05-17 16:13] LABS: BUN 11 mg/dL (7-18); Creatinine, Serum 0.77 mg/dL (0.55-1.02); EST Glomerular Filtration Rate 78 mL/min (>60); Glucose 122 mg/dL (74-106)
[2020-05-17 16:14] LABS: ALB/GLOB Ratio 0.9 RATIO (0.9-2.4); AST(SGOT) 32 U/L (15-37); Alanine Aminotransfer ALT/SGPT 19 U/L (13-56); Albumin, Serum 3.8 g/dL (3.2-5.0); Alkaline Phosphatase 97 U/L (45-117); Anion Gap 9 (5-15); BUN/Creat Ratio 14.4 RATIO (10-20); Calcium,Total 9.5 mg/dL (8.5-10.1); Chloride 103 mmol/L (98-107); Est Glom Filt Rate - Afr Amer 95 mL/min (>60); Globulin 4.4 g/dL (2.2-4.2); Potassium 3.8 mmol/L (3.5-5.1); Protein, Total 8.2 g/dL (6.4-8.2); Sodium Level 137 mmol/L (136-145); T4 Free Direct 1.23 ng/dL (0.76-1.46); Thyroid Stim Hormone (TSH) 2.63 uIU/mL (0.358-3.74)
== END ==
PROVIDERS: PCP Family Medicine; Referring Provider Internal Medicine Endocrinology, Diabetes & Metabolism; Visit Provider Internal Medicine Endocrinology, Diabetes & Metabolism
DX: E11.22 Type 2 diabetes mellitus with diabetic chronic kidney disease (principal); G62.9 Polyneuropathy, unspecified; E03.9 Hypothyroidism, unspecified; E55.9 Vitamin D deficiency, unspecified; N18.2 Chronic kidney disease, stage 2 (mild)
CPT/HCPCS: 36415; 80053; 82043; 82306; 83036; 84439; 84443

== ENCOUNTER → 2020-05-21 12:32 | Outpatient (CLI) | payer MEDICARE, BC, SELFPAY ==
[2019-01-24 12:21] VITALS: BMI 33.5
--- NOTE | 2020-05-21 12:38 | CDU_ITS ---
Reason For Study: Carotid Stenosis Rt. Velocities/BP Lt. Velocities/BP Prox CCA 96/10 cm/sec. Prox CCA 81/15 cm/sec. Mid CCA 72/11 cm/sec. Mid CCA 82/14 cm/sec. Dist CCA 71/10 cm/sec. Dist CCA 78/11 cm/sec. Prox ICA 45/12 cm/sec. Prox ICA 71/13 cm/sec. Mid ICA 61/18 cm/sec. Mid ICA 77/23 cm/sec. Dist ICA 67/21 cm/sec. Dist ICA 88/25 cm/sec. Rt. ICA/CCA = 0.9. Lt. ICA/CCA = 1.1. Prox ECA 90/6 cm/sec. Prox ECA 108/7 cm/sec. Rt. Vert. 38/11 cm/sec. Lt. Vert. 45/11 cm/sec. Right Extracranial There is heterogeneous, irregular atherosclerotic plaque noted in the right common carotid artery. There is heterogeneous, irregular atherosclerotic plaque noted in the right internal carotid artery. There is no significant atherosclerotic plaque noted in the right external carotid artery. Antegrade flow is noted in the right vertebral artery. Left Extracranial There is heterogeneous, irregular atherosclerotic plaque noted in the left common carotid artery. There is heterogeneous, irregular atherosclerotic plaque noted in the left internal carotid artery. There is no significant atherosclerotic plaque noted in the left external carotid artery. Antegrade flow is noted in the left vertebral artery. Procedure Carotid Duplex [id number]. Exam performed in department. Interpretation Summary Irregular plague at the proximal right internal carotid with <50% stenosis <50% stenosis right external carotid Irregular plague at the proximal left internal carotid with <50% stenosis <50% stenosis left external carotid Patent, antegrade vertebrals bilaterally Ordering Physician: Abhinav Bosch Referring Physician: Abhinav Bosch Performed By: Marina Livingston, MARIKA, RVT
--- NOTE | 2020-05-21 12:39 | ECHOCS_ITS ---
Reason For Study: SOB Procedure This was a 2D Doppler, Color Flow transthoracic echocardiogram. The study was technically difficult. Contrast injection was performed. Exam performed in department. Left Ventricle Normal LV size. Left ventricular systolic function is normal. The estimated ejection fraction is 55 %. Septal motion consistent with IVCD. Diastolic function is indeterminate. Right Ventricle Normal RV size. Normal systolic function. Atria The left atrium is mildly enlarged. Normal right atrium. No doppler evidence for ASD. Mitral Valve There is mild to moderate mitral annular calcification. Extension of the mitral annular calcification on the base of posterior mitral valve leaflet. Trivial mitral valve insufficiency. Tricuspid Valve Normal tricuspid valve. Trivial tricuspid valve insufficiency. Unable to estimate RV systolic pressure/pulmonary artery pressure due to technically difficult study. Aortic Valve Trisinus/trileaflet aortic valve. Mild focal aortic valve calcification. Pulmonic Valve The pulmonic valve is not well visualized. Trivial pulmonic valve insufficiency. Great Vessels Normal sized aortic root. Pericardium/Pleural No pericardial effusion. Medication 22 gauge I.V. with prn adaptor inserted into right arm. Diluted definity 2ml given slow IV push to enhance endocardial definition. MMode/2D Measurements & Calculations LVIDd: 4.8 cm IVSd: 1.7 cm Ao root diam: 3.2 cm LVIDs: 2.9 cm LVPWd: 1.3 cm FS: 38.6 % LAV(MOD-bp): 53.7 ml LA A4 area: 19.3 cm2 RA A4 area: 11.7 cm2 LAV(MOD-bp) Indexed: 29.8 ml/m2 LAV(MOD-sp2): 51.4 ml LAV(MOD-sp4): 55.0 ml Time Measurements MV dec time: 0.34 sec Doppler Measurements & Calculations MV E max mehran: 76.0 cm/sec Lat Peak E' Mehran: 4.8 cm/sec Med Peak E' Mehran: 4.8 cm/sec MV A max mehran: 114.9 cm/sec E/E' lat: 15.7 E/E' med: 15.7 MV E/A: 0.66 MV V2 max: 133.9 cm/sec MV P1/2t max mehran: 99.2 cm/sec Ao V2 max: 133.9 cm/sec MV max P.2 mmHg MV P1/2t: 111.0 msec Ao max P.2 mmHg MV V2 mean: 70.0 cm/sec MV dec slope: 261.8 cm/sec2 MV mean P.3 mmHg MV V2 VTI: 37.2 cm MVA(P1/2t): 2.0 cm2 LV V1 max: 77.8 cm/sec PA V2 max: 115.6 cm/sec LV V1 max P.4 mmHg Interpretation Summary The study was technically difficult. Contrast injection was performed. Left ventricular systolic function is normal. The estimated ejection fraction is 55 %. Septal motion consistent with IVCD. The left atrium is mildly enlarged. There is mild to moderate mitral annular calcification. Extension of the mitral annular calcification on the base of posterior mitral valve leaflet. Trivial mitral valve insufficiency. Trivial tricuspid valve insufficiency. Mild focal aortic valve calcification. Trivial pulmonic valve insufficiency. Unable to estimate RV systolic pressure/pulmonary artery pressure due to technically difficult study. Diastolic function is indeterminate. Ordering Physician: Abhinav Boshc Referring Physician: Abhinav Bosch Performed By: Hector Guo RCS
== END ==
PROVIDERS: PCP Family Medicine; Referring Provider Family Medicine; Visit Provider Family Medicine
DX: I65.23 Occlusion and stenosis of bilateral carotid arteries (principal); R06.02 Shortness of breath
CPT/HCPCS: 93306; 93880; Q9957; A4216; C8929

== ENCOUNTER → 2020-06-08 12:22 | Outpatient (CLI) | payer MEDICARE, BC, SELFPAY ==
[2019-01-24 12:21] VITALS: BMI 33.5
--- NOTE | 2020-06-08 12:25 | CT_ITS ---
STUDY: CT BRAIN WITHOUT CONTRAST REASON FOR EXAM: Female, 74 years old. FALL WITH HEADACHE ONE WEEK AGO, NAUSEA, FATIGUE RADIATION DOSAGE (If Supplied By Facility): CTDIvol = ( 44.99 ) mGy, DLP = ( 762.36 ) mGycm TECHNIQUE: Transaxial CT imaging of the brain was performed without administration of intravenous contrast material. Individualized dose optimization techniques were used for this CT. COMPARISON: No relevant priors. FINDINGS: Normal soft tissue structures. Normal calvarium. There is mild cerebral atrophy with widening of the extra-axial spaces and ventricular dilatation. Normal white matter tracts of the cerebral hemispheres. Normal basal ganglia and thalami. Normal brainstem. Normal cerebellum. There is no intracranial hemorrhage. There are no findings of an acute ischemic infarction. Atherosclerotic calcification of the cavernous portion of the internal carotid arteries bilaterally. Partial opacification of the right sphenoid sinus. CT/Brain/Head without Contrast IMPRESSION: Chronic involutional changes of the brain. Partial opacification of the right sphenoid sinus. Electronically Signed: Daron Russell MD at 12:56 EST , Service support ,
--- NOTE | 2020-06-08 12:40 | RAD_ITS ---
STUDY: X-RAY - RIGHT KNEE REASON FOR EXAM: Female, 74 years old. PAIN, Pt. unable to stand TECHNIQUE: 2 view(s) of the knee. COMPARISON: None. FINDINGS: Normal visualized distal femur. Normal visualized proximal tibia and fibula. Normal proximal tibiofibular articulation. Normal medial femorotibial compartment. Normal lateral femorotibial compartment. Normal patellofemoral articulation. The soft tissue structures are unremarkable. RAD/Knee 1 or 2 Views IMPRESSION: Normal x-ray examination of the knee. Electronically Signed: Daron Rusesll MD at 14:50 EST , Service support ,
--- NOTE | 2020-06-08 12:40 | RAD_ITS ---
STUDY: X-RAY - LEFT KNEE REASON FOR EXAM: Female, 74 years old. PAIN, pt. unable to stand TECHNIQUE: 2 view(s) of the knee. COMPARISON: None. FINDINGS: Normal visualized distal femur. Normal visualized proximal tibia and fibula. Normal proximal tibiofibular articulation. There is mild degenerative arthrosis of the medial femorotibial compartment. Normal lateral femorotibial compartment. Normal patellofemoral articulation. The soft tissue structures are unremarkable. RAD/Knee 1 or 2 Views IMPRESSION: Degenerative arthrosis. Electronically Signed: Daron Russell MD at 14:50 EST , Service support ,
--- NOTE | 2020-06-08 12:40 | RAD_ITS ---
STUDY: X-RAY - LUMBAR SPINE REASON FOR EXAM: Female, 74 years old. Pain TECHNIQUE: 5 view(s) of the lumbar spine were obtained including oblique views. COMPARISON: Comparison is made with prior examination of 01/11/2017. FINDINGS: Normal lumbar lordosis. There is no substantial scoliosis. There is a normal alignment of the vertebrae. There is multilevel endplate spondylosis of the lumbar vertebrae. There is multi-level degenerative disc disease with multi-level disc space narrowing. Facet joint osteoarthritis. There is atherosclerotic calcification of the abdominal aorta without a demonstrated aneurysm. RAD/L/S Spine Min 4 Views IMPRESSION: Degenerative changes of the spine, as detailed above. Electronically Signed: Daron Russell MD at 14:52 EST , Service support ,
== END ==
PROVIDERS: PCP Family Medicine; Visit Provider Family Medicine
DX: R11.0 Nausea (principal); R53.83 Other fatigue; R51.9 Headache, unspecified; M54.9 Dorsalgia, unspecified; M25.569 Pain in unspecified knee; W19.XXXA Unspecified fall, initial encounter
CPT/HCPCS: 70450; 72110; 73560

== ENCOUNTER → 2020-08-05 13:29 | Outpatient (CLI) | payer MEDICARE, BC, SELFPAY ==
[2019-01-24 12:21] VITALS: BMI 33.5
== END ==
PROVIDERS: Visit Provider Family Medicine
DX: R30.0 Dysuria (principal)
CPT/HCPCS: 87077; 87086; 87088; 87186

== ENCOUNTER → 2020-08-12 11:31 | Outpatient (CLI) | payer MEDICARE, BC, SELFPAY ==
[2019-01-24 12:21] VITALS: BMI 33.5
[2020-08-12 12:46] LABS: Bacteria 0 SEEN /hpf (None Seen); Mucous, Urine 0 SEEN /hpf (<or=2+); Red Blood Cells-Urine 0 SEEN /hpf (0-5)
[2020-08-12 15:05] LABS: Absolute Lymphocyte Count 3.59 X10^3/uL (0.83-4.51); Absolute Neutrophil Count 6.9 X10^3/uL (2.0-7.7); Basophil# 0.14 X10^3/uL; Basophil% 1.2 % (0-1); Eosinophil# 0.47 X10^3/uL; Hematocrit 40.8 % (37-47); Hemoglobin 12.8 g/dL (12.0-15.0); Lymphocyte # 3.59 X10^3/ul (4.0); Lymphocyte % 30.3 % (19-41); Mean Corp Hgb Conc 31.4 g/dL (32-36); Mean Corpuscular Hgb 29.2 pg (27.0-32.0); Mean Corpuscular Volume 93.2 fL (81-99); Mean Platelet Vol. 10.6 fl (6.2-12.0); Monocyte# 0.71 X10^3/uL; NRBC Flagged by Analyzer 0 % (0-5); Neutrophil # 6.88 X10^3/uL (2.7-7.7); Neutrophil % 58.2 % (47-70); Platelet Count 342 K/mm3 (150-450); RBC Distribution Width CV 13.2 % (11.6-14.6); RBC Distribution Width SD 45.1 fl (35.1-43.9); Red Blood Count 4.38 M/mm3 (4.2-5.4); White Blood Count 11.8 K/mm3 (4.4-11.0)
[2020-08-12 15:13] LABS: Color, Urine Yellow (Yellow); Glucose, Dipstick Normal (Normal); Ketone-Dipstick Negative (Negative); Leukocyte Esterase-Dipstick 100 /ul (Negative); Nitrite-Dipstick Negative (Negative); Occult Blood-Urine Negative /ul (Negative); Protein-Dipstick 15 mg/dl (Negative); Urine Bilirubin Dipstick Negative (Negative); Urine Clarity Clear (Clear); Urine Urobilinogen Normal (Normal)
[2020-08-12 15:20] LABS: Vitamin B12 251 pg/mL (211-911); Vitamin D,25 Hydroxy 30.7 ng/mL
[2020-08-12 15:21] LABS: Renal Epithelial Cells 0-5 SEEN /hpf (0-5); Squamous Epithelial Cells - UA 0-5 SEEN /hpf (5-10); White Blood Cells 5-10 SEEN /hpf (0-5)
[2020-08-12 15:22] LABS: Hemoglobin A1c 6.8 % (3.8-5.6)
[2020-08-12 15:25] LABS: ALB/GLOB Ratio 0.8 RATIO (0.9-2.4); AST(SGOT) 43 U/L (15-37); Alanine Aminotransfer ALT/SGPT 22 U/L (13-56); Albumin, Serum 3.7 g/dL (3.2-5.0); Alkaline Phosphatase 105 U/L (45-117); Anion Gap 10 (5-15); BUN 21 mg/dL (7-18); BUN/Creat Ratio 22.6 RATIO (10-20); CPK Total, Creatine Kinase 141 U/L (26-192); Calcium,Total 9.9 mg/dL (8.5-10.1); Chloride 104 mmol/L (98-107); Cholesterol 156 mg/dL (200); Creatinine, Serum 0.93 mg/dL (0.55-1.02); EST Glomerular Filtration Rate 63 mL/min (>60); Est Glom Filt Rate - Afr Amer 76 mL/min (>60); Ferritin 29 ng/mL (8-252); Globulin 4.5 g/dL (2.2-4.2); Glucose 161 mg/dL (74-106); High Density Lipoprotein 36 mg/dL; Magnesium 1.1 mg/dL (1.6-2.6); Potassium 4.4 mmol/L (3.5-5.1); Protein, Total 8.2 g/dL (6.4-8.2); Sodium Level 138 mmol/L (136-145); Thyroid Stim Hormone (TSH) 1.53 uIU/mL (0.358-3.74); Triglycerides 339 mg/dL; Very Low Density Lipoprotein 68 mg/dL (5-40)
[2020-08-21 12:07] LABS: VITAMIN B6 4.4 ug/L (2.0-32.8)
== END ==
PROVIDERS: PCP Family Medicine; Referring Provider Internal Medicine Endocrinology, Diabetes & Metabolism; Visit Provider Internal Medicine Endocrinology, Diabetes & Metabolism
DX: E11.9 Type 2 diabetes mellitus without complications (principal); E03.9 Hypothyroidism, unspecified; G62.9 Polyneuropathy, unspecified; E55.9 Vitamin D deficiency, unspecified; E78.5 Hyperlipidemia, unspecified; R25.2 Cramp and spasm; R30.0 Dysuria; I10 Essential (primary) hypertension
CPT/HCPCS: 80053; 80061; 81001; 82306; 82550; 82607; 82728; 83036; 83735; 84207; 84425; 84443; 85025; 87086; 87088

== ENCOUNTER → 2020-09-08 12:31 | Outpatient (CLI) | payer MEDICARE, BC, SELFPAY ==
[2019-01-24 12:21] VITALS: BMI 33.5
[2020-09-08 15:38] LABS: Magnesium 1.6 mg/dL (1.6-2.6)
== END ==
PROVIDERS: PCP Family Medicine; Referring Provider Family Medicine; Visit Provider Family Medicine
DX: N39.0 Urinary tract infection, site not specified (principal); E83.42 Hypomagnesemia
CPT/HCPCS: 36415; 83735; 87077; 87086; 87088; 87186

== ENCOUNTER → 2020-12-01 11:11 | Outpatient (CLI) | payer MEDICARE, BC, SELFPAY ==
[2019-01-24 12:21] VITALS: BMI 33.5
[2020-12-01 12:32] LABS: Microalbumin,Random Urine 29.9 mg/L (NO RANGE EST.); Microalbumin:Creatinine Ratio 41.2 mg/g CRE (<30 mg/g CRE)
[2020-12-01 15:28] LABS: Vitamin B12 706 pg/mL (211-911)
[2020-12-01 15:46] LABS: ALB/GLOB Ratio 0.8 RATIO (0.9-2.4); AST(SGOT) 53 U/L (15-37); Alanine Aminotransfer ALT/SGPT 23 U/L (13-56); Albumin, Serum 3.7 g/dL (3.2-5.0); Alkaline Phosphatase 82 U/L (45-117); Anion Gap 8 (5-15); BUN 23 mg/dL (7-18); BUN/Creat Ratio 26.4 RATIO (10-20); Calcium,Total 9.8 mg/dL (8.5-10.1); Chloride 105 mmol/L (98-107); Cholesterol 164 mg/dL (200); Creatinine, Serum 0.87 mg/dL (0.55-1.02); EST Glomerular Filtration Rate 67 mL/min (>60); Est Glom Filt Rate - Afr Amer 82 mL/min (>60); Globulin 4.5 g/dL (2.2-4.2); Glucose 178 mg/dL (74-106); High Density Lipoprotein 37 mg/dL; Magnesium 1.2 mg/dL (1.6-2.6); Potassium 4.3 mmol/L (3.5-5.1); Protein, Total 8.2 g/dL (6.4-8.2); Sodium Level 136 mmol/L (136-145); Triglycerides 292 mg/dL; Very Low Density Lipoprotein 58 mg/dL (5-40)
[2020-12-06 20:07] LABS: VITAMIN B6 5.7 ug/L (2.0-32.8)
[2020-12-06 21:51] LABS: Vitamin B1, Thiamine 133.5 nmol/L (66.5-200.0)
== END ==
PROVIDERS: PCP Family Medicine; Visit Provider Family Medicine
DX: N39.0 Urinary tract infection, site not specified (principal); E78.5 Hyperlipidemia, unspecified; G62.9 Polyneuropathy, unspecified; E83.42 Hypomagnesemia
CPT/HCPCS: 36415; 80053; 80061; 82043; 82570; 82607; 83735; 84207; 84425; 87086; 87088; 87186

== ENCOUNTER → 2020-12-27 11:21 | Outpatient (CLI) | payer MEDICARE, BC, SELFPAY ==
[2019-01-24 12:21] VITALS: BMI 33.5
--- NOTE | 2020-12-27 11:25 | US_ITS ---
STUDY: RENAL ULTRASOUND - COMPLETE REASON FOR EXAM: Female, 75 years old. Recurrent UTIs. TECHNIQUE: Ultrasound evaluation of the kidneys was performed with real-time and static stratton-scale imaging. COMPARISON: None. FINDINGS: RIGHT KIDNEY: Normal location of the right kidney, which is normal in size. The right kidney measures 11.4 cm x 4.6 cm x 5.9 cm. There is a normal cortex of the right kidney. The renal cortex measures 1.6 cm. There is no right renal mass or cyst. There are no right renal calculi. There is no right hydronephrosis. DISTAL RIGHT URETER: There is non-visualization of the distal right ureter. There is no demonstrated right ureterovesical junction calculus. There is a visualized right ureteral jet. LEFT KIDNEY: Normal location of the left kidney, which is normal in size. The left kidney measures 11.5 cm x 4.5 cm x 5.7 cm. There is a normal cortex of the left kidney. The renal cortex measures 2.2 cm. There is no left renal mass or cyst. There are no left renal calculi. There is no left hydronephrosis. DISTAL LEFT URETER: There is non-visualization of the distal left ureter. There is no demonstrated left ureterovesical junction calculus. There is a visualized left ureteral jet. BLADDER: The distended urinary bladder has a volume of 105 ml. There is a normal wall thickness of the distended urinary bladder. Thickening of the bladder wall measuring 5 mm. There are no demonstrated bladder calculi. Incidental note is made of a 6.3 cm x 6 cm x 5.4 cm fundal fibroid. US/Kidney and Bladder IMPRESSION: Bladder wall thickening. Electronically Signed: Daron Russell MD at 15:41 EDT , Service support ,
== END ==
PROVIDERS: PCP Family Medicine; Referring Provider Urology; Visit Provider Urology
DX: N39.0 Urinary tract infection, site not specified (principal)
CPT/HCPCS: 76770

== ENCOUNTER → 2020-12-28 09:33 | Outpatient (CLI) | payer MEDICARE, BC, SELFPAY ==
[2019-01-24 12:21] VITALS: BMI 33.5
[2020-12-28 12:35] LABS: ALB/GLOB Ratio 0.9 RATIO (0.9-2.4); AST(SGOT) 38 U/L (15-37); Alanine Aminotransfer ALT/SGPT 26 U/L (13-56); Albumin, Serum 3.7 g/dL (3.2-5.0); Alkaline Phosphatase 86 U/L (45-117); Anion Gap 7 (5-15); BUN 18 mg/dL (7-18); BUN/Creat Ratio 27.1 RATIO (10-20); Calcium,Total 9.2 mg/dL (8.5-10.1); Chloride 107 mmol/L (98-107); Cholesterol 154 mg/dL (200); Creatinine, Serum 0.66 mg/dL (0.55-1.02); EST Glomerular Filtration Rate 92 mL/min (>60); Est Glom Filt Rate - Afr Amer 111 mL/min (>60); Globulin 4.3 g/dL (2.2-4.2); Glucose 124 mg/dL (74-106); High Density Lipoprotein 37 mg/dL; Potassium 4.3 mmol/L (3.5-5.1); Sodium Level 138 mmol/L (136-145); T4 Free Direct 1.29 ng/dL (0.76-1.46); Thyroid Stim Hormone (TSH) 2.86 uIU/mL (0.358-3.74); Triglycerides 201 mg/dL; Very Low Density Lipoprotein 40 mg/dL (5-40)
[2020-12-28 12:43] LABS: Microalbumin,Random Urine 72.7 mg/L (NO RANGE EST.)
[2020-12-28 12:47] LABS: Magnesium 1.3 mg/dL (1.6-2.6)
== END ==
PROVIDERS: PCP Family Medicine; Referring Provider Internal Medicine Endocrinology, Diabetes & Metabolism; Visit Provider Internal Medicine Endocrinology, Diabetes & Metabolism
DX: E11.9 Type 2 diabetes mellitus without complications (principal); E03.9 Hypothyroidism, unspecified; E78.5 Hyperlipidemia, unspecified; I10 Essential (primary) hypertension; E55.9 Vitamin D deficiency, unspecified
CPT/HCPCS: 36415; 80053; 80061; 82043; 83036; 83735; 84439; 84443

== ENCOUNTER → 2021-01-17 16:15 | Outpatient (CLI) | payer MEDICARE, BC, SELFPAY ==
[2021-01-17 16:33] LABS: Color, Urine Yellow (Yellow); Glucose, Dipstick Normal (Normal); Ketone-Dipstick Negative (Negative); Leukocyte Esterase-Dipstick 500 /ul (Negative); Nitrite-Dipstick Negative (Negative); Occult Blood-Urine 10 /ul (Negative); Protein-Dipstick Negative (Negative); Specific Gravity, Urine 1.005 (1.002-1.030); Urine Bilirubin Dipstick Negative (Negative); Urine Clarity Sl. Cloudy (Clear); Urine Urobilinogen Normal (Normal); Urine pH 6.5 (5.0 - 8.0)
[2021-01-17 16:54] LABS: Bacteria 2+ /hpf (None Seen); Mucous, Urine RARE /hpf (<or=2+); Red Blood Cells-Urine 0-5 SEEN /hpf (0-5); Squamous Epithelial Cells - UA 0-5 SEEN /hpf (5-10); White Blood Cells 25-50 SEEN /hpf (0-5)
== END ==
PROVIDERS: PCP Family Medicine; Referring Provider Physician Assistant Surgical; Visit Provider Physician Assistant Surgical
DX: N39.0 Urinary tract infection, site not specified (principal); R35.0 Frequency of micturition; Z11.52 Encounter for screening for COVID-19
CPT/HCPCS: 81001; 87086; 87088; 87186; 87635; U0005; U0003

== ENCOUNTER 2021-01-24 13:26 | Emergency (ER) | payer MEDICARE, BC, SELFPAY ==
[2021-01-24 13:29] VITALS: BP 194/97; PULSE 72; RESP 17; TEMP 36.6; O2SAT 97; BMI 33.9
--- NOTE | 2021-01-24 14:15 | EKG12_ITS ---
Test Reason : ABD PAIN Blood Pressure : / mmHG Vent. Rate : 071 BPM Atrial Rate : 071 BPM P-R Int : 220 ms QRS Dur : 134 ms QT Int : 426 ms P-R-T Axes : 024 -46 082 degrees QTc Int : 462 ms Sinus rhythm with 1st degree A-V block Left axis deviation Left bundle branch block Abnormal ECG Confirmed by BRIAN ULRICH, JAKE ([id number]), editorial clerk MILANA RENAE ([id number]) on 01/26/2021 10:22:12 AM Referred By: DHIRAJ/LEISA Confirmed By:JAKE TORRES MD
--- NOTE | 2021-01-24 14:16 | CT_ITS ---
STUDY: CT ABDOMEN AND PELVIS WITHOUT CONTRAST REASON FOR EXAM: Female, 75 years old. Lower abd pain RADIATION DOSAGE (If Supplied By Facility): CTDIvol = ( 18.22 ) mGy, DLP = ( 879.58 ) mGycm TECHNIQUE: Transaxial images were obtained from the dome of the diaphragm to the symphysis pubis without oral contrast, and without intravenous contrast. Sagittal and coronal images were reconstructed. Individualized dose optimization techniques were used for this CT. COMPARISON: None. FINDINGS: Calcified granulomas at the right lung base. Mild increased linear markings at the lung bases suggestive of mild scarring. Coronary artery calcification. Normal liver. There are tiny gallstones in the gallbladder lumen.. There are multiple benign calcified granulomata of the spleen. Normal pancreas. Normal bilateral adrenal glands. Normal right kidney. Normal left kidney. There is a small hiatal hernia. Normal small intestine. Normal colon. The appendix is visualized and appears normal. There is diffuse atherosclerotic calcification of the abdominal aorta and its major visceral branches, without a demonstrated aneurysm. Normal inferior vena cava. Normal retroperitoneum. Normal urinary bladder. Enlarged fibroid uterus. There is a left-sided inguinal hernia containing adipose tissue. Small umbilical hernia containing fat. There are diffuse degenerative changes of the visualized lumbar spine. CT/Abdomen/Pelvis without Cont IMPRESSION: Enlarged fibroid uterus. Small left inguinal hernia and umbilical hernia containing fat. Electronically Signed: Daron Russell MD at 15:37 EDT , Service support ,
--- NOTE | 2021-01-24 14:18 | EDS_ITS ---
HPI History of Present Illness Chief Complaint: Abd Pain Narrative Narrative: Patient here with multiple complaints. Reports for the past month lower abdominal pain and diarrhea. States at least twice a day. Nonbloody stools. States when she eats she would go right through her. Reports [facility] for symptoms reported urine frequency found and treated for UTI on Cipro on her last day. Still has similar symptoms. No fevers. In addition states also the past month noted rhinorrhea congestion mild dyspnea and cough. She states she had a Covid test at the [facility] however does not know the results. She has been vaccinated. No infections in the past. Reports additionally worsening low back pain feet pain with her neuropathy. She is on Lyrica 200 mg twice daily. She states her prescription ran out 4 days ago and there is no refills at the pharmacy. She did see her PCP Dr. Bosch on Sunday states refilled supposed to be called in. Denies any trauma. Currently states she is nauseated. No vomiting. Denies any abdominal surgery history. Reports had colonoscopy in the past. No history of diverticulitis. Reports PCP was to order blood test and stool studies. She states there has been no diarrhea today. Prior similar symptoms: No PFSH PFSH Medical History Arthritis Back pain Diabetes Diarrhea Difficulty balancing Hypertension SOB (shortness of breath) Thyroid disease Home Medications diclofenac sodium 75 mg PO BIDCM PRN 12/03/14 [History Last Taken Unknown] doxycycline hyclate 50 mg PO DAILY 12/03/14 [History Last Taken Unknown] levothyroxine 150 mcg PO DAILY 12/03/14 [History Last Taken Unknown] olmesartan 20 mg PO DAILY 12/03/14 [History Last Taken 12/14/14 06:30] pregabalin 200 mg PO BID 12/03/14 [History Last Taken 12/14/14 06:30] simvastatin 20 mg PO QHS 12/03/14 [History Last Taken Unknown] blood sugar diagnostic #100 ea 01/24/19 [History Last Taken Unknown] blood-glucose meter #1 ea 01/24/19 [History Last Taken Unknown] cyanocobalamin (vitamin B-12) 1,000 mcg/mL oral drops 1 ml PO DAILY 01/24/19 [History Last Taken Unknown] ergocalciferol (vitamin D2) 1,000 unit capsule unit PO cap 01/24/19 [History Last Taken Unknown] escitalopram oxalate 10 mg tablet PO #90 tab 01/24/19 [History Last Taken Unknown] insulin aspar prot-insulin aspart 100 unit/mL (70-30) subcutaneous pen 5 unit SC BID 01/24/19 [History Last Taken Unknown] insulin glargine U-300 conc 300 unit/mL (1.5 mL) subcutaneous pen SC #36 ml 01/24/19 [History Last Taken Unknown] metformin 500 mg tablet,extended release 24 hr PO #360 tab 01/24/19 [History Last Taken Unknown] vi-6-gcr-epa-fish oil-vit D3 300 mg-1,000 mg-1,000 unit capsule cap PO cap 01/24/19 [History Last Taken Unknown] ondansetron 4 mg PO Q6H PRN #10 tab 01/24/21 [Rx Last Taken Unknown] pregabalin 200 mg PO BID #60 cap 01/24/21 [Rx Last Taken Unknown] Allergy/AdvReac Type Severity Reaction Status Date / Time No Known Allergies Allergy Verified 01/24/21 13:33 Family History Other Cancer Social History Smoking Status: Never smoker alcohol intake: never ROS ROS ED Constitutional Constitutional ED: Denies chills, fever(s) or sweats Eyes Eyes: Denies change in vision ENT ENT ED: Denies dysphagia or sore throat Cardiovascular Cardiovascular: Denies chest pain, leg edema, palpitations or racing heartbeat Respiratory/Chest Respiratory/Chest: Reports cough and dyspnea; Denies dyspnea on exertion Gastrointestinal Gastrointestinal: Reports abdominal pain, diarrhea and nausea; Denies vomiting Genitourinary Genitourinary ED: Reports urinary frequency; Denies dysuria or hematuria Musculoskeletal Musculoskeletal: Denies back pain, extremity pain or neck pain Integumentary Denies rash or wounds Neurologic Neurologic: Denies headache(s), paresthesias or weakness EXAM Physical Exam Const Vital Signs: 01/24/21 13:29 01/24/21 15:33 01/24/21 17:05 Temperature 97.9 F Temperature Source Temporal Pulse Rate 72 73 72 Respiratory Rate 17 11 L 16 Blood Pressure 194/97 H 191/81 H 138/79 H Blood Pressure Mean 129 117 Pulse Ox 97 97 95 Oxygen Delivery Method Room Air Room Air Positive well nourished and well developed General Appearance ED: well developed and NAD HEENT Reports moist mucous membranes normocephalic and atraumatic Eyes PERRL, EOMs intact bilaterally and conjunctivae normal General Eye ED: Yes normal appearance of both eyes Neck no lymphadenopathy and supple General: Negative for tenderness Chest Wall Chest: Negative for tenderness Resp normal respiratory effort and normal air movement Effort and Inspection: symmetric chest movement; Negative for respiratory distress Cardio regular rate, regular rhythm and no murmurs Peripheral Pulses: pulses 2+ throughout GI normal to inspection, nondistended, normoactive bowel sounds GI Narrative: Mild lower abdominal tenderness without guarding or rebound. Palpation: Negative for guarding or rebound tenderness present Back/Spine no CVA tenderness and no thoracic nor lumbar tenderness Back/Spine Narrative: Straight leg test negative bilaterally. Extremity normal to inspection General Extremety ED: Negative for edema or tenderness General Extremity: Negative for edema Neuro oriented x3 and no sensory deficits noted Sensorium / Orientation: awake and alert Skin no rashes or lesions noted and no wounds MDM MDM MDM Narrative Medical decision making narrative: Patient here with multiple complaints. Nontoxic nonsurgical abdomen. With her back and foot pain she has neuropathy history with a flare currently has not had her Lyrica for 4 days. For her persistent suprapubic pain work-up initiated. Abdominal labs are all normal CT scan noted uterine fibroid. This is her area of pain. Also noted a small fat- containing left inguinal hernia. She is not tender in that region. With her reported diarrhea cough, this been going on for a month. Chest x-ray negative. Covid testing obtained negative. Urine culture was in the system from a week ago positive for E. coli sensitive to her Cipro. Discussed with patient to finish her Cipro. She had no loose stools in the ED or any today to obtain any samples for testing. Discussed continue oral hydration follow-up with her PCP. She also was given follow-up with gynecology as an outpatient. All questions were answered. Patient is being discharged under pandemic conditions under declared global, national and state disaster activation, with limited medical resources. Patient and community understands this. Results discussed in layman's terms to the patient satisfaction. All questions answered in layman's terms. Patient understands importance of follow-up care as directed. Patient has been instructed to return to the ED immediately if new symptoms, problems, or questions occur. We mutually agree with the plan of disposition. The patient understand that they may call or return with any questions or concerns at any time. Lab Data Attestation: I reviewed the patient's lab results. Labs: Laboratory Results - last 24 hr 01/24/21 01/24/21 01/24/21 13:30 13:30 15:15 WBC 10.3 RBC 4.38 Hgb 13.1 Hct 40.2 MCV 91.8 MCH 29.9 MCHC 32.6 RDW Std Deviation 44.6 H RDW Coeff of Luiza 13.3 Plt Count 300 MPV 10.5 Immature Gran % (Auto) 0.200 Neut % (Auto) 53.6 Lymph % (Auto) 34.8 Richardson % (Auto) 7.0 Eos % (Auto) 3.4 Baso % (Auto) 1.0 Absolute Neuts (auto) 5.5 Absolute Lymphs (auto) 3.59 Nucleated RBC % 0 Sodium 137 Potassium 3.5 Chloride 104 Carbon Dioxide 24.0 Anion Gap 9 BUN 14 Creatinine 0.71 Estim Creat Clear Calc 36.68 Est GFR (MDRD) Af Amer 103 Est GFR (MDRD) Non-Af 85 BUN/Creatinine Ratio 19.7 Glucose 119 H Calcium 9.8 Total Bilirubin 0.80 AST 73 H ALT 27 Alkaline Phosphatase 79 Total Protein 8.6 H Albumin 3.6 Globulin 5.0 H Albumin/Globulin Ratio 0.7 L Lipase 130 Urine Color Yellow Urine Clarity Clear Urine pH 8.0 Ur Specific [place] 1.010 Urine Protein Negative Urine Glucose (UA) Normal Urine Ketones 15 H Urine Occult Blood Negative Urine Nitrite Negative Urine Bilirubin Negative Urine Urobilinogen Normal Ur Leukocyte Esterase 25 H Urine RBC 0 SEEN Urine WBC 0-5 SEEN Ur Squamous Epith Cells 0 SEEN Urine Bacteria 0 SEEN Urine Mucus 0 SEEN Radiography Chest X-Ray - ED: 1 View, Read by ED Physician and Read by Radiologist Diagnostic Testing: Radiology Impression Abdomen/Pelvis CT 01/24/21 14:16 IMPRESSION: Enlarged fibroid uterus. Small left inguinal hernia and umbilical hernia containing fat. Electronically Signed: Daron Russell MD at 15:37 EDT , Service support , Chest X-Ray 01/24/21 14:25 IMPRESSION: Mild degree of increased markings at the left lung base suggestive of mild linear atelectasis and/or scarring. Electronically Signed: Daron Russell MD at 14:46 EDT , Service support , EKG Initial EKG: Attestation: I personally reviewed and interpreted this EKG as follows: Interpretation: Sinus Rhythm and LBBB Comments: Sinus rate of 71, no ST or T wave changes. Left bundle branch block. Discharge Plan Triage Chief Complaint: Abd Pain ED Provider: Chucky Rizvi Dx/Rx/DC Orders Clinical Impression: Fibroid, uterine, Abdominal pain, Diarrhea, Neuropathy Instructions: Abdominal Pain, ED Diet for Vomiting or ..., ED Uterine Fibroids Prescriptions: New pregabalin 200 mg capsule 200 mg PO BID Qty: 60 RF: 0 ondansetron 4 mg tablet,disintegrating 4 mg PO Q6H PRN (Reason: nausea and vomiting) Qty: 10 RF: 0 No Action escitalopram oxalate 10 mg tablet PO Qty: 90 RF: 0 insulin glargine U-300 conc 300 unit/mL (1.5 mL) insulin pen SC Qty: 36 RF: 0 (DME) blood sugar diagnostic Strip See Rx Instructions .ROUTE .MEDSUPPLY Qty: 100 RF: 0 metformin 500 mg tablet extended release 24 hr PO Qty: 360 RF: 0 Novolog Mix 70-30FlexPen U-100 100 unit/mL (70-30) insulin pen 5 unit SC BID RF: 0 Vitamin B-12 1,000 mcg/mL drops 1 ml PO DAILY RF: 0 yc-5-rjm-epa-fish oil-vit D3 [Fish Oil-Vit D3] 300-1,000-1,000 mg-mg-unit capsule PO RF: 0 ergocalciferol (vitamin D2) 1,000 unit capsule 1,000 unit capsule PO RF: 0 (DME) blood-glucose meter Misc See Rx Instructions .ROUTE .MEDSUPPLY Qty: 1 RF: 0 doxycycline hyclate 50 mg capsule 50 mg PO DAILY RF: 0 simvastatin 20 mg tablet 20 mg PO QHS RF: 0 levothyroxine 150 MCG tablet 150 mcg PO DAILY RF: 0 diclofenac sodium 75 MG tablet 75 mg PO BIDCM PRN (Reason: Pain) RF: 0 olmesartan 20 mg tablet 20 mg PO DAILY RF: 0 pregabalin 200 mg capsule 200 mg PO BID RF: 0 Primary Care Provider: Abhinav Bosch Referrals: Katie Zavala MD [STAFF PHYSICIAN] - 1 Week Abhinav Bosch MD [Primary Care Provider] - 3-5 Days Activity Restrictions/Additional Instructions: CT scan notes uterine fibroid, small fat-containing left inguinal hernia. No other acute process. Finish your Cipro antibiotics as this is treating your E. coli UTI from culture a week ago. Continue oral fluids. Follow-up with gynecology as outpatient for your fibroid. Follow-up with your doctor. Disposition Disposition: Home, Self Care Discharge Date/Time: 01/24/21 17:06
--- NOTE | 2021-01-24 14:25 | RAD_ITS ---
STUDY: X-RAY CHEST REASON FOR EXAM: Female, 75 years old. Cough TECHNIQUE: Single AP portable view of the chest. COMPARISON: None. FINDINGS: EKG electrodes are seen. Mild increased linear markings at the left lung base suggestive of mild linear atelectasis and/or scarring. There is blunting of the left costophrenic angle. Normal size heart. Normal mediastinum and shonda. Normal visualized pulmonary arteries. There is atherosclerotic calcification of the aortic arch with tortuosity. There are degenerative changes of the visualized thoracic spine. Normal visualized ribs, clavicles, and shoulders. There is no demonstrated abnormality of the visualized soft tissue structures of the upper abdomen. RAD/Chest 1 View (Portable) IMPRESSION: Mild degree of increased markings at the left lung base suggestive of mild linear atelectasis and/or scarring. Electronically Signed: Daron Russell MD at 14:46 EDT , Service support ,
[2021-01-24] MEDS: 0.9% Normal Saline 1,000 ML 1000 ML IV (14:37)
[2021-01-24] MEDS: Ondansetron 4 MG/2 ML Vial IV (14:37)
[2021-01-24 14:47] LABS: Absolute Lymphocyte Count 3.59 X10^3/uL (0.83-4.51); Absolute Neutrophil Count 5.5 X10^3/uL (2.0-7.7); Eosinophil# 0.35 X10^3/uL; Eosinophils% 3.4 % (0-5); Hematocrit 40.2 % (37-47); Hemoglobin 13.1 g/dL (12.0-15.0); Lymphocyte # 3.59 X10^3/ul (0.83-4.51); Lymphocyte % 34.8 % (19-41); Mean Corp Hgb Conc 32.6 g/dL (32-36); Mean Corpuscular Hgb 29.9 pg (27.0-32.0); Mean Corpuscular Volume 91.8 fL (81-99); Mean Platelet Vol. 10.5 fl (6.2-12.0); Monocyte# 0.72 X10^3/uL; NRBC Flagged by Analyzer 0 % (0-5); Neutrophil # 5.54 X10^3/uL (2.7-7.7); Neutrophil % 53.6 % (47-70); Platelet Count 300 K/mm3 (150-450); RBC Distribution Width CV 13.3 % (11.6-14.6); RBC Distribution Width SD 44.6 fl (35.1-43.9); Red Blood Count 4.38 M/mm3 (4.2-5.4); White Blood Count 10.3 K/mm3 (4.4-11.0)
[2021-01-24 15:03] LABS: ALB/GLOB Ratio 0.7 RATIO (0.9-2.4); AST(SGOT) 73 U/L (15-37); Alanine Aminotransfer ALT/SGPT 27 U/L (13-56); Albumin, Serum 3.6 g/dL (3.2-5.0); Alkaline Phosphatase 79 U/L (45-117); Anion Gap 9 (5-15); BUN 14 mg/dL (7-18); BUN/Creat Ratio 19.7 RATIO (10-20); Calcium,Total 9.8 mg/dL (8.5-10.1); Chloride 104 mmol/L (98-107); Creatinine, Serum 0.71 mg/dL (0.55-1.02); EST Glomerular Filtration Rate 85 mL/min (>60); Est Glom Filt Rate - Afr Amer 103 mL/min (>60); Estimated Creatinine Clearance 36.68 ml/min; Glucose 119 mg/dL (74-106); Lipase 130 U/L (73-393); Potassium 3.5 mmol/L (3.5-5.1); Protein, Total 8.6 g/dL (6.4-8.2); Sodium Level 137 mmol/L (136-145)
[2021-01-24 15:22] LABS: Bacteria 0 SEEN /hpf (None Seen); Mucous, Urine 0 SEEN /hpf (<or=2+); Red Blood Cells-Urine 0 SEEN /hpf (0-5); Squamous Epithelial Cells - UA 0 SEEN /hpf (5-10)
[2021-01-24 15:29] LABS: Color, Urine Yellow (Yellow); Glucose, Dipstick Normal (Normal); Ketone-Dipstick 15 mg/dl (Negative); Leukocyte Esterase-Dipstick 25 /ul (Negative); Nitrite-Dipstick Negative (Negative); Occult Blood-Urine Negative /ul (Negative); Protein-Dipstick Negative (Negative); Urine Bilirubin Dipstick Negative (Negative); Urine Clarity Clear (Clear); Urine Urobilinogen Normal (Normal)
[2021-01-24 15:33] VITALS: BP 191/81; PULSE 73; RESP 11; O2SAT 97
[2021-01-24 15:58] LABS: White Blood Cells 0-5 SEEN /hpf (0-5)
[2021-01-24] MEDS: Morphine 2 MG/ML Syringe IV (16:08)
[2021-01-24 17:05] VITALS: BP 138/79; PULSE 72; RESP 16; O2SAT 95
== END 2021-01-24 17:06 | disposition home or self-care (01) ==
PROVIDERS: Emergency Provider Emergency Medicine; PCP Family Medicine
DX: D25.9 Leiomyoma of uterus, unspecified (principal); R10.30 Lower abdominal pain, unspecified; R19.7 Diarrhea, unspecified; G62.9 Polyneuropathy, unspecified
CPT/HCPCS: 71045; 74176; 80053; 81001; 83690; 85025; 87426; 93005; 96374; 96375; 99285; A4216; J2405

== ENCOUNTER → 2021-01-28 15:54 | Outpatient (CLI) | payer MEDICARE, BC, SELFPAY ==
--- NOTE | 2021-01-28 16:00 | RAD_ITS ---
STUDY: X-RAY - ACUTE ABDOMINAL SERIES REASON FOR EXAM: Female, 75 years old. ABD PAIN TECHNIQUE: Single view of the chest. Supine, and upright view(s) of the abdomen were obtained. COMPARISON: None. FINDINGS: The lungs are clear and expanded. Small calcified granuloma in the right lower lobe Normal size heart. Normal mediastinum and shonda. Normal visualized pulmonary arteries. Mildly calcified aortic arch and descending thoracic aorta. There is a non-specific bowel gas pattern. Diffuse fecal retention noted within the ascending and to a lesser extent the descending colon. Calcification of the abdominal aorta without evidence for aneurysm. Severe levoscoliosis of the lumbar spine and degenerative change RAD/Acute Abdomen Inc Chest IMPRESSION: Fecal retention within the ascending and descending colon. No evidence for small bowel obstruction Electronically Signed: Avery Collins MD at 17:54 EDT , Service support ,
[2021-01-28 17:29] LABS: Absolute Lymphocyte Count 4.07 X10^3/uL (0.83-4.51); Absolute Neutrophil Count 5.3 X10^3/uL (2.0-7.7); Basophil# 0.11 X10^3/uL; Eosinophil# 0.48 X10^3/uL; Eosinophils% 4.5 % (0-5); Hematocrit 41.5 % (37-47); Hemoglobin 13.6 g/dL (12.0-15.0); Lymphocyte # 4.07 X10^3/ul (0.83-4.51); Lymphocyte % 38.4 % (19-41); Mean Corp Hgb Conc 32.8 g/dL (32-36); Mean Corpuscular Hgb 30.2 pg (27.0-32.0); Mean Platelet Vol. 10.3 fl (6.2-12.0); Monocyte# 0.63 X10^3/uL; Monocyte% 5.9 % (0-10); NRBC Flagged by Analyzer 0 % (0-5); Neutrophil # 5.27 X10^3/uL (2.7-7.7); Neutrophil % 49.8 % (47-70); Platelet Count 369 K/mm3 (150-450); RBC Distribution Width CV 13.3 % (11.6-14.6); RBC Distribution Width SD 45.1 fl (35.1-43.9); Red Blood Count 4.51 M/mm3 (4.2-5.4); White Blood Count 10.6 K/mm3 (4.4-11.0)
[2021-01-28 17:36] LABS: ALB/GLOB Ratio 0.8 RATIO (0.9-2.4); AST(SGOT) 40 U/L (15-37); Alanine Aminotransfer ALT/SGPT 28 U/L (13-56); Albumin, Serum 3.6 g/dL (3.2-5.0); Alkaline Phosphatase 86 U/L (45-117); Anion Gap 9 (5-15); BUN 13 mg/dL (7-18); BUN/Creat Ratio 14.6 RATIO (10-20); Calcium,Total 9.6 mg/dL (8.5-10.1); Chloride 104 mmol/L (98-107); Creatinine, Serum 0.89 mg/dL (0.55-1.02); EST Glomerular Filtration Rate 66 mL/min (>60); Est Glom Filt Rate - Afr Amer 80 mL/min (>60); Globulin 4.8 g/dL (2.2-4.2); Glucose 177 mg/dL (74-106); Magnesium 1.3 mg/dL (1.6-2.6); Potassium 3.9 mmol/L (3.5-5.1); Protein, Total 8.4 g/dL (6.4-8.2); Sodium Level 137 mmol/L (136-145)
== END ==
PROVIDERS: PCP Family Medicine; Referring Provider Family Medicine; Visit Provider Family Medicine
DX: R10.9 Unspecified abdominal pain (principal); E83.42 Hypomagnesemia
CPT/HCPCS: 36415; 74022; 80053; 83735; 85025

== ENCOUNTER → 2021-02-08 11:37 | Outpatient (CLI) | payer MEDICARE, BC, SELFPAY ==
[2021-02-08 15:48] LABS: ALB/GLOB Ratio 0.8 RATIO (0.9-2.4); AST(SGOT) 24 U/L (15-37); Alanine Aminotransfer ALT/SGPT 17 U/L (13-56); Albumin, Serum 3.4 g/dL (3.2-5.0); Alkaline Phosphatase 90 U/L (45-117); Anion Gap 10 (5-15); BUN 14 mg/dL (7-18); BUN/Creat Ratio 18.5 RATIO (10-20); Calcium,Total 9.5 mg/dL (8.5-10.1); Chloride 104 mmol/L (98-107); Cholesterol 127 mg/dL (200); Creatinine, Serum 0.76 mg/dL (0.55-1.02); EST Glomerular Filtration Rate 79 mL/min (>60); Est Glom Filt Rate - Afr Amer 96 mL/min (>60); Globulin 4.4 g/dL (2.2-4.2); Glucose 112 mg/dL (74-106); High Density Lipoprotein 36 mg/dL; Magnesium 1.4 mg/dL (1.6-2.6); Potassium 4.1 mmol/L (3.5-5.1); Protein, Total 7.8 g/dL (6.4-8.2); Sodium Level 139 mmol/L (136-145); Triglycerides 191 mg/dL; Very Low Density Lipoprotein 38 mg/dL (5-40)
== END ==
PROVIDERS: PCP Family Medicine; Referring Provider Family Medicine; Visit Provider Family Medicine
DX: R19.7 Diarrhea, unspecified (principal); E78.5 Hyperlipidemia, unspecified
CPT/HCPCS: 36415; 80053; 80061; 83735

== ENCOUNTER → 2021-02-10 13:58 | Outpatient (CLI) | payer MEDICARE, BC, SELFPAY | PROVIDERS: PCP Family Medicine; Referring Provider Family Medicine; Visit Provider Family Medicine | DX: R19.7 Diarrhea, unspecified (principal) | CPT/HCPCS: 82705; 83630; 87177; 87209; 87493; 87506 ==

== ENCOUNTER 2021-02-21 09:54 | Day surgery (SDC) | payer MEDICARE, BC, SELFPAY ==
--- NOTE | 2021-02-21 | IMM_PTH ---
PATIENT: SULEIMAN RMASEY LOC: EN U#:[id number] AGE/SX: 75/F ROOM: RE02/21/[address]: Dr. Prem Sanchez DO : 1945 BED: DIS: 02/21/2021 SPEC #: [id number] RECD: 02/22/21 12:48 STATUS: MAYELIN REQ #: [id number] PRIYANKA: 02/21/21 00:[address]: Prem Sanchez DEPT: IMMUNOHISTOCHEMISTRY RECD BY: Nina Urban ENTERED: 02/22/21 12:49 SP TYPE: IMMUNO OTHR DR: Dr. Abhinav Bosch MD Tissues: C - Stomach, NOS Procedures: H Pylori (initial) PHYSICIAN & INSTITUTION [place] [phone] SPECIMEN INFORMATION: Tissue Source: C ? Gastric ulcer biopsy Clinical Info: Bloating, abdominal pain, dumping syndrome Specimen Number: [id number] CPT code: 50303 METHODOLOGY: Deparaffinized sections of prefer/formalin-fixed tissue or PAP/DQ stained slides are incubated with monoclonal/polyclonal antibodies/oligonucleotide probes. Localization is made via biotin free immunoperoxidase method. Appropriate controls are performed and reacted as expected. Results on target cell population are indicated in the following table: RESULTS: ANTIBODY / CLONE RESULT Block C H Pylori (polyclonal) positive These tests were developed and their performance characteristics determined by [facility]. They may not have been cleared or approved by the U.[place]. Food and Drug Administration. The FDA has determined that such clearance or approval is not necessary. The above immunohistochemical/dualISH markers are ordered and reviewed by the Pathologist. INTERPRETATION: C. Gastric ulcer, biopsy: Positive for numerous Helicobacter pylori organisms. SJ:angie 02/23/2021
[2021-02-21 10:24] VITALS: BP 144/79; PULSE 71; RESP 16; TEMP 36.3; O2SAT 98; BMI 33.0
--- NOTE | 2021-02-21 11:00 | EGD_PTH ---
PATIENT: SULEIMAN RAMSEY LOC: EN U#:[id number] AGE/SX: 75/F ROOM: RE02/21/[address]: Dr. Prem Sanchez DO : 1945 BED: DIS: 02/21/2021 SPEC #: [id number] RECD: 02/21/21 13:15 STATUS: MAYELIN DVAE #: [id number] PRIYANKA: 02/21/21 11:[address]: Prem Sanchez DEPT: SURGICAL PATHOLOGY RECD BY: Renay Yao ENTERED: 02/21/21 13:38 SP TYPE: EGD [facility] DR: Dr. Abhinav Bosch MD Tissues: A - Esophagus, NOS B - Duodenum, NOS C - Gastric mucous membrane Procedures: Special Stain Group II Surgery Specimen Level IV Alcian Blue/PAS (control) HEADER OPERATION: EGD ([facility]) PRE-OP DIAGNOSIS: Bloating, abdominal pain, dumping syndrome TISSUE SUBMITTED: A ? Distal esophagus biopsy, B ? Duodenum biopsy, C ? Gastric ulcer biopsy MICROSCOPIC DIAGNOSIS A. Distal esophagus, biopsy: Gastroesophageal junctional mucosa with mild chronic inflammation. No evidence of goblet cell metaplasia. See comment. B. Duodenum, biopsy: No pathologic change. C. Gastric ulcer, biopsy: Chronic active gastritis. Positive for Helicobacter pylori organisms. See comment. AM:angie 02/22/2021 COMMENT A. Alcian blue/PAS stain with matched control supports the above diagnosis. C. The results of immunohistochemistry for Helicobacter pylori will be reported separately ([id number]). MICROSCOPIC DESCRIPTION Slides are reviewed. GROSS DESCRIPTION A - Received in fixative is one container labeled with the patient's name and designated distal esophagus biopsy. The specimen consists of multiple irregular fragments of light [place] soft tissue that in aggregate measure 0.6 x 0.6 x 0.1 cm. The specimen is totally submitted in one cassette. B - Received in fixative is one container labeled with the patient's name and designated duodenum biopsy. The specimen consists of multiple irregular fragments of light [place] soft tissue that in aggregate measure 0.5 x 0.3 x 0.1 cm. The specimen is totally submitted in one cassette. C - Received in fixative is one container labeled with the patient's name and designated gastric ulcer biopsy. The specimen consists of two irregular fragments of light [place] soft tissue that in aggregate measure 0.5 x 0.5 x 0.1 cm. The specimen is totally submitted in one cassette. / SJ:rg 02/21/21 TC:3 CPT: 39305 x3, 48659
[2021-02-21 11:01] LABS: Bedside Glucose 141 mg/dL (70-110)
--- NOTE | 2021-02-21 11:16 | PCM.HP.BLA ---
History and Physical Date of Admission: 02/21/21 [facility] [address] [place] [address] OFFICE VISITDate of Service: 02/14/21 MR#:[id number]: SULEIMAN RAMSEY #:[id number]:1945 Provider:Prem Friend, DOAge/Sex: 75/F Location[facility] [place]Signed Intake Vital Signs 02/14/21 11:00 Height 5 ft 1 in Weight: 176 lb 8 oz BMI 33.3 Intake Visit Reasons: gastric pain, bloating, & diarrhea Chief Complaint: cough and body aches Is patient in pain?: No Allergies No Known Allergies Allergy (Verified 01/24/21 13:33) Medications doxycycline hyclate 50 mg PO DAILY 12/03/14 [History Confirmed 01/24/19] levothyroxine 150 mcg PO DAILY 12/03/14 [History Confirmed 02/14/21] olmesartan 20 mg PO DAILY 12/03/14 [History Confirmed 02/14/21] simvastatin 20 mg PO QHS 12/03/14 [History Confirmed 02/14/21] blood sugar diagnostic #100 ea 01/24/19 [History Confirmed 01/24/19] blood-glucose meter #1 ea 01/24/19 [History Confirmed 01/24/19] cyanocobalamin (vitamin B-12) 1,000 mcg/mL oral drops 1 ml PO DAILY 01/24/19 [History Confirmed 02/14/21] ergocalciferol (vitamin D2) 1,000 unit capsule unit PO cap 01/24/19 [History Confirmed 02/14/21] escitalopram oxalate 10 mg tablet PO #90 tab 01/24/19 [History Confirmed 01/24/19] metformin 500 mg tablet,extended release 24 hr PO #360 tab 01/24/19 [History Confirmed 02/14/21] ondansetron 4 mg PO Q6H PRN #10 tab 01/24/21 [Rx Confirmed 02/14/21] pregabalin 200 mg PO BID #60 cap 01/24/21 [Rx Confirmed 02/14/21] insulin glargine U-300 conc 300 unit/mL (1.5 mL) subcutaneous pen 30 unit SUBCUT QHS 02/14/21 [History Confirmed 02/14/21] insulin lispro 100 unit/mL subcutaneous half-unit pen 1 sliding scale dose SUBCUT USEASDIRECTD 02/14/21 [History Confirmed 02/14/21] rifaximin 550 mg tablet 550 mg PO TID #42 tab 02/14/21 [Rx Confirmed 02/14/21] Nurse's Note: Last two month she has been having explosive diarrhea and urgent diarrhea with intake and during the night. She has changed her diet and is not waking during night as often. Pressure and discomfort located in her abdomen. Stools are very liquid and soft/pasty, denies blood. Went to [facility] ED for abd pain and neuropathy pain (she was out of [place]). CT Scan done with only abnormal noted a fibroid in her uterus. Has been having issues with reflux with all PO intake and increased abdominal pressure, this has been going on for a significant period of time. Uses OTC medications: Rolaids and baking soda in warm water. Last colonoscopy performed approximately 4 years ago. No EGD performed. [facility] Medical History (Updated 02/14/21 @ 11:[address] Amaro Friend, DO) Abdominal pain Arthritis Back pain Bloating Cataracts, bilateral CKD (chronic kidney disease) Diabetes Diarrhea Difficulty balancing GERD (gastroesophageal reflux disease) Hypergammaglobulinemia Hyperlipidemia Hypertension Hypomagnesemia SOB (shortness of breath) Thyroid disease Family History Other Cancer Social History Smoking Status: Never smoker alcohol intake: never HPI HPI Chief Complaint: cough and body aches Details: SULEIMAN RAMSEY, is a 75 F who presents to the office today for lower abdominal pain and diarrhea. States at least twice a day. Nonbloody stools. States when she eats she would go right through her. Reports went to now clinic a week ago for symptoms reported urine frequency found and treated for UTI on Cipro on her last day. Still has similar symptoms. In the ED she had biochemical work-up with that showed an elevated globulin level. Her white blood cell count was normal. She had a CT scan abdomen pelvis that did not show any acute abnormalities. It did show a hiatal hernia. She did not have a contrast study secondary to underlying CKD. She went to see a urologist who performed cystoscopy and imaging of her urinary tract. No abnormalities were seen as per the patient. She also had stool studies that were negative for enteric pathogens. Her stool was too formed in order to run C. difficile. She is still having a lot of bloating, gurgling and abdominal pain. She says had she has cut back her diet significantly in order to try to figure out what foods were causing her problems. She cannot identify anything. She was given stool softeners approximately 2 weeks ago because there was a note of possible constipation on her CT scan. It made her have some liquid stools but then she went back to the bloating cramping and upper abdominal pain. Originally she was constipated which is different for her, but that turned into diarrhea prior to her being seen in the ED. ROS Const Constitutional: Positive for fatigue and weight change (loss) Gastro GI: Positive for abdominal pain, bloating, change in bowel habits, diarrhea, heartburn and nausea/dyspepsia Musc Musculoskeletal: Positive for numbness, tingling and Arthritis Neuro Neurology: Positive for numbness and tingling Endo Endocrine: Positive for fatigue Exam Const General: cooperative and comfortable Nutritional Appearance: average body habitus and well nourished HENTN Head: normal to inspection Ears: hearing grossly normal bilaterally Nose: external nose normal Face and sinus: normal facial exam Mouth: oral mucosae normal Throat: posterior oropharynx normal Eyes General: appearance normal, both eyes and all related structures Neck Neck: normal visual inspection Chest Chest palpation & inspection: normal inspection of the chest and normal palpation of entire chest wall Resp Effort & Inspection: normal respiratory effort Auscultation: Bilateral: Clear to Auscultation Cardio Palpation: normal PMI Rate: regular rate Rhythm: regular rhythm GI Inspection: normal to inspection Auscultation: normal bowel sounds Percussion: normal to percussion Palpation: no hepatosplenomegaly Skin General: no rashes or lesions noted Neuro General: patient alert Extrem General: normal to inspection Psych Affect: normal affect Quality Reporting Tobacco Screening ([facility]) Smoking Status: Never smoker Assessment and Plan Assessment and Plan (1) Bloating: Status: Acute Plan - Dr. Amaro Friend, DO: She has risk factors for delayed gastric emptying being a medication side effect and insulin-dependent diabetes. She should undergo an upper endoscopy for evaluation of her upper GI tract. At that time we will look for any signs of pyloric stenosis, gastritis, duodenitis and less likely celiac disease. As always on the differential diagnosis for bloating abdominal pain. (2) Abdominal pain: Status: Acute Plan - Dr. Amaro Friend, DO: We will evaluate her upper GI tract during endoscopy. If it is negative and we do not see any reason for abdominal pain or upper endoscopy we may pursue other imaging such as small bowel follow-through, colonoscopy or a gastric emptying study. (3) Dumping syndrome: Status: Acute Plan - Dr. Amaro Friend, DO: She gives a history that whenever she eats she develops abdominal pain cramping and bloating and that can be associated with an infection such as Giardia, pancreatic insufficiency which can be seen in type I diabetic and bacterial overgrowth. I will give her a course of Xifaxan 550 mg 3 times a day. If this does not get approved then we will put her on doxycycline as she was on it in the past for rosacea. 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 Nothing is changed regarding her problems or diagnosis.
[2021-02-21 11:41] VITALS: BP 136/76; BP 144/79; PULSE 64; RESP 16; TEMP 36.1; O2SAT 95
--- NOTE | 2021-02-21 11:44 | OP.EGD_ITS ---
Patient Name: Terrie Bill Procedure Date: 02/21/2021 11:19 AM Date of : 1945 Age: 75 Procedure: Upper GI endoscopy Indications: Epigastric abdominal pain Providers: Prem Sanchez DO Medicines: Propofol per Anesthesia Patient Profile: This is a 75 year old female. Refer to note in patient chart for documentation of history and physical. Patient has symptoms of acute abdominal cramping. The symptoms first began 2017. Complications: No immediate complications. Procedure: Pre-Anesthesia Assessment: - Prior to the procedure, a History and Physical was performed, and patient medications and allergies were reviewed. The patient is competent. The risks and benefits of the procedure and the sedation options and risks were discussed with the patient. All questions were answered and informed consent was obtained. Patient identification and proposed procedure were verified. Mental Status Examination: alert and oriented. Airway Examination: normal oropharyngeal airway and neck mobility. Respiratory Examination: clear to auscultation. CV Examination: normal. Prophylactic Antibiotics: The patient does not require prophylactic antibiotics. Prior Anticoagulants: The patient has taken no previous anticoagulant or antiplatelet agents. ASA Grade Assessment: II - A patient with mild systemic disease. After reviewing the risks and benefits, the patient was deemed in satisfactory condition to undergo the procedure. The anesthesia plan was to use moderate sedation / analgesia (conscious sedation). Immediately prior to administration of medications, the patient was re-assessed for adequacy to receive sedatives. The heart rate, respiratory rate, oxygen saturations, blood pressure, adequacy of pulmonary ventilation, and response to care were monitored throughout the procedure. The physical status of the patient was re-assessed after the procedure. After obtaining informed consent, the endoscope was passed under direct vision. Throughout the procedure, the patient's blood pressure, pulse, and oxygen saturations were monitored continuously. The gastroscope was introduced through the mouth, and advanced to the second part of duodenum. The upper GI endoscopy was accomplished without difficulty. The patient tolerated the procedure well. Moderate Sedation: Moderate (conscious) sedation was administered by the endoscopy nurse and supervised by the endoscopist. The patient's oxygen saturation, heart rate, blood pressure and response to care were monitored. Total physician intraservice time was 1 minute. Scope In: 11:32:26 AM Scope Out: 11:36:50 AM Total Procedure Duration Time 0 hours 4 minutes 24 seconds Findings: LA Grade A (one or more mucosal breaks less than 5 mm, not extending between tops of 2 mucosal folds) esophagitis with no bleeding was found 34 to 35 cm from the incisors. Biopsies were taken with a cold forceps for histology. Verification of patient identification for the specimen was done. Estimated blood loss was minimal. A non-obstructing Schatzki ring was found in the lower third of the esophagus. Diffuse moderately erythematous mucosa without active bleeding and with no stigmata of bleeding was found in the first portion of the duodenum. This was biopsied with a cold forceps for histology. Verification of patient identification for the specimen was done. Estimated blood loss was minimal. Impression: - LA Grade A reflux esophagitis. Biopsied. - Non-obstructing Schatzki ring. - Non-obstructing non-bleeding gastric ulcer with no stigmata of bleeding. Biopsied. Recommendation: - Discharge patient to home. - Resume previous diet. - Continue present medications. - Await pathology results. - Repeat upper endoscopy in 1 year for surveillance. - Return to GI office in 1 week. Procedure Code(s): --- Professional --- 55484, Esophagogastroduodenoscopy, flexible, transoral; with biopsy, single or multiple CPT copyright 2017 [employer]. All rights reserved. The codes documented in this report are preliminary and upon bootmaker review may be revised to meet current compliance requirements. Prem Sanchez DO 02/21/2021 11:43:35 AM This report has been signed electronically. Number of Addenda: 1 Note Initiated On: 02/21/2021 11:19 AM Addendum Number: 1 Addendum Date: 01/12/2022 4:30:36 PM MAC was used instead of moderate sedation for this patient. Prem Sanchez DO 01/12/2022 4:30:41 PM This report has been signed electronically.
[2021-02-21 11:45] VITALS: BP 133/83; BP 144/79; PULSE 63; RESP 16; O2SAT 97
--- NOTE | 2021-02-21 11:45 | OP.CCLET_ITS ---
01/12/2022 Abhinav Bosch [address] [place] [address] Re : Upper GI endoscopy procedure for Terrie Bill Dear Dr. Bosch This procedure was performed on Sunday, February 21, 2021. My impressions and recommendations are as follows: Impressions : - LA Grade A reflux esophagitis. Biopsied. - Non-obstructing Schatzki ring. - Non-obstructing non-bleeding gastric ulcer with no stigmata of bleeding. Biopsied. Recommendations : - Discharge patient to home. - Resume previous diet. - Continue present medications. - Await pathology results. - Repeat upper endoscopy in 1 year for surveillance. - Return to GI office in 1 week. My findings are described in the full procedure note, which is enclosed. If I can be of further assistance, please feel free to contact me at . Sincerely, Prem Friend, DO 02/21/2021 11:43:35 AM This report has been signed electronically.
[2021-02-21 11:50] VITALS: BP 129/76; BP 144/79; PULSE 63; RESP 16; O2SAT 98
[2021-02-21 11:55] VITALS: BP 144/79; BP 152/86; PULSE 63; RESP 16; TEMP 36.1; O2SAT 97
[2021-02-21 12:31] VITALS: BP 144/79
== END 2021-02-21 12:42 ==
LOC: EN 09:55 → AC 09:55
PROVIDERS: PCP Family Medicine; Referring Provider Family Medicine; Visit Provider Internal Medicine Gastroenterology
PROC: 0DJ08ZZ Inspection of Upper Intestinal Tract, Via Natural or Artificial Opening Endoscopic (ICD-10-PCS; CPT 43235; principal; 2021-02-21 10:55)
DX: K29.50 Unspecified chronic gastritis without bleeding (principal); K21.00 Gastro-esophageal reflux disease with esophagitis, without bleeding; K22.2 Esophageal obstruction; A04.8 Other specified bacterial intestinal infections; K31.89 Other diseases of stomach and duodenum; E11.22 Type 2 diabetes mellitus with diabetic chronic kidney disease; I12.9 Hypertensive chronic kidney disease with stage 1 through stage 4 chronic kidney disease, or unspecified chronic kidney disease; N18.9 Chronic kidney disease, unspecified; E78.5 Hyperlipidemia, unspecified; E07.9 Disorder of thyroid, unspecified; R63.4 Abnormal weight loss; H26.9 Unspecified cataract; M19.90 Unspecified osteoarthritis, unspecified site; K91.1 Postgastric surgery syndromes; Z68.33 Body mass index [BMI] 33.0-33.9, adult; Z87.891 Personal history of nicotine dependence; Z79.899 Other long term (current) drug therapy; Z79.4 Long term (current) use of insulin
CPT/HCPCS: 43239; 82962; 88305; 88313; 88342; J7120; J2405

== ENCOUNTER → 2021-03-16 09:47 | Outpatient (CLI) | payer MEDICARE, BC, SELFPAY ==
--- NOTE | 2021-03-16 09:50 | NM_ITS ---
CLINICAL: 75-year-old female with reported history of abdominal pain. RADIONUCLIDE HEPATOBILIARY SCINTIGRAPHY COMPARISON: CT of the abdomen-pelvis report 01/24/2021 FINDINGS: Following the intravenous administration of 5.3 mCi of 99m Tc Mebrofenin, hepatobiliary images reveal: 1. Relatively prompt and homogeneous radiopharmaceutical concentration is noted by the liver parenchyma. The left lobe is prominent in size. No parenchymal defects are identified. 2. Gallbladder activity is identified at 15 minutes post radiopharmaceutical administration. 3. Small intestinal tract is not visualized during 60 minutes of pre-CCK sequential imaging. Small bowel activity is identified following the administration of cholecystokinin. 4. Washout of the radiopharmaceutical by the hepatic parenchyma appears qualitatively normal. Cholecystokinin (0.02 ug/kg) was administered intravenously over a 30-minute period. The post CCK gallbladder ejection fraction calculated at 21 minutes following Cholecystokinin administration was noted to be 62.0 % (normal greater than 35%). During 30 minutes of post CCK imaging, there is no scintigraphic evidence of reflux of the radiotracer into the common hepatic duct or refilling of the gallbladder. ID/Hepatobilliary Img w/Pharm Int IMPRESSION: 1. NORMAL 99m Tc Mebrofenin hepatobiliary imaging examination with Cholecystokinin. A. A gallbladder ejection fraction calculated to be greater than 35% following the administration of Cholecystokinin makes the probability of functional hepatobiliary disease (gallbladder and/or sphincter of Oddi dyskinesia) and/or organic hepatobiliary disease (chronic acalculous cholecystitis and/or cystic duct syndrome) to be low. (Mady Russell et al, Journal of Nuclear Medicine 32:1695, 1991). Electronically Signed: Teja Zhu DO at 22:10 EDT Tel , Service support ,
== END ==
PROVIDERS: PCP Family Medicine; Referring Provider Internal Medicine Gastroenterology; Visit Provider Internal Medicine Gastroenterology
DX: R10.9 Unspecified abdominal pain (principal)
CPT/HCPCS: 78227; A9537; J2805

== ENCOUNTER 2021-06-22 09:36 | Outpatient (CLI) | payer MEDICARE, BC, SELFPAY ==
[2021-06-22 12:46] LABS: Vitamin D,25 Hydroxy 31.3 ng/mL
[2021-06-22 13:02] LABS: ALB/GLOB Ratio 0.8 RATIO (0.9-2.4); AST(SGOT) 53 U/L (15-37); Alanine Aminotransfer ALT/SGPT 24 U/L (13-56); Albumin, Serum 3.5 g/dL (3.2-5.0); Alkaline Phosphatase 99 U/L (45-117); Anion Gap 9 (5-15); BUN 18 mg/dL (7-18); BUN/Creat Ratio 26.3 RATIO (10-20); Calcium,Total 8.9 mg/dL (8.5-10.1); Chloride 106 mmol/L (98-107); Creatinine, Serum 0.68 mg/dL (0.55-1.02); EST Glomerular Filtration Rate 89 mL/min (>60); Est Glom Filt Rate - Afr Amer 108 mL/min (>60); Globulin 4.4 g/dL (2.2-4.2); Glucose 188 mg/dL (74-106); Potassium 3.7 mmol/L (3.5-5.1); Protein, Total 7.9 g/dL (6.4-8.2); Sodium Level 139 mmol/L (136-145); T4 Free Direct 1.29 ng/dL (0.76-1.46); Thyroid Stim Hormone (TSH) 8.48 uIU/mL (0.358-3.74)
[2021-06-22 13:26] LABS: Hemoglobin A1c 7.2 % (3.8-5.6)
== END 2021-06-22 23:59 | disposition home or self-care (01) ==
LOC: MTLAB 09:38
PROVIDERS: PCP Family Medicine; Referring Provider Internal Medicine Endocrinology, Diabetes & Metabolism; Visit Provider Internal Medicine Endocrinology, Diabetes & Metabolism
DX: E11.9 Type 2 diabetes mellitus without complications (principal); E55.9 Vitamin D deficiency, unspecified; E03.9 Hypothyroidism, unspecified; I10 Essential (primary) hypertension; E78.5 Hyperlipidemia, unspecified
CPT/HCPCS: 36415; 80053; 82306; 83036; 84439; 84443; 84481

== ENCOUNTER → 2021-10-05 | Outpatient (CLI) | payer MEDICARE, BC, SELFPAY ==
--- NOTE | 2021-10-05 11:48 | RAD_ITS ---
STUDY: X-RAY - CERVICAL SPINE REASON FOR EXAM: Female, 75 years old. CERVICAL RADICULOPATHY TECHNIQUE: 2 view(s) of the cervical spine were obtained. COMPARISON: None FINDINGS: Normal anterior atlantoaxial articulation. Normal odontoid process. There is straightening of the normal cervical lordosis. There is multi-level endplate spondylosis. There is multi-level degenerative disc disease with multilevel disc space narrowing. Normal visualized intervertebral neuroforamina. The soft tissue structures are unremarkable. RAD/Cerv Spine 2 or 3 Views IMPRESSION: Moderate degenerative disc disease with straightening of the normal lordotic curvature. MRI would be useful. Electronically Signed: Teja Marr MD at 16:58 EDT ,
--- NOTE | 2021-10-05 11:49 | RAD_ITS ---
STUDY: X-RAY - THORACIC SPINE REASON FOR EXAM: Female, 75 years old. CERVICAL RADICULOPATHY -- back pain TECHNIQUE: 2 view(s) of the thoracic spine were obtained. COMPARISON: 10/26/2017 FINDINGS: Normal kyphosis of the thoracic spine. There is no substantial scoliosis. There is multilevel endplate spondylosis of the thoracic vertebrae. There is multilevel disc space narrowing of the thoracic spine. The soft tissue structures are unremarkable. RAD/Thoracic Spine 2 Views IMPRESSION: No change in mild diffuse degenerative disc disease. Electronically Signed: Teja Marr MD at 16:27 EDT ,
== END | disposition home or self-care (01) ==
LOC: MTRAD 11:46
PROVIDERS: PCP Family Medicine; Referring Provider Family Medicine; Visit Provider Family Medicine
DX: M54.12 Radiculopathy, cervical region (principal)
CPT/HCPCS: 72040; 72070

== ENCOUNTER → 2021-11-02 | Outpatient (CLI) | payer MEDICARE, BC, SELFPAY ==
--- NOTE | 2021-11-02 16:22 | RAD_ITS ---
STUDY: XR Wrist Min 3 Views REASON FOR EXAM: Female, 75 years old. Left wrist pain post fall TECHNIQUE: XR Wrist Min 3 Views LEFT COMPARISON: None FINDINGS: There are no acute findings of the visualized distal radius. There are no acute findings of the radiocarpal articulation. Normal distal radioulnar articulation. Normal carpal bones. Normal carpal articulations. There are no acute findings of the carpometacarpal articulation of the thumb. Normal second through fifth carpometacarpal articulations. There are no acute findings of the visualized metacarpal bones. Oblique fracture of the distal ulna. There is displacement. There is non-specific soft tissue swelling. RAD/Wrist min 3 Views IMPRESSION: Oblique fracture of the distal ulna. There is displacement. There is non-specific soft tissue swelling. Electronically Signed: Evert Montes MD at 17:24 EDT ,
== END | disposition home or self-care (01) ==
PROVIDERS: PCP Family Medicine; Referring Provider Physician Assistant Surgical; Visit Provider Physician Assistant Surgical
DX: S60.212A Contusion of left wrist, initial encounter (principal)
CPT/HCPCS: 73110

== ENCOUNTER → 2021-12-09 | Outpatient (CLI) | payer MEDICARE, BC, SELFPAY ==
[2021-12-09 15:39] LABS: ALB/GLOB Ratio 0.9 RATIO (0.9-2.4); AST(SGOT) 44 U/L (15-37); Alanine Aminotransfer ALT/SGPT 26 U/L (13-56); Albumin, Serum 3.5 g/dL (3.2-5.0); Alkaline Phosphatase 93 U/L (45-117); Anion Gap 8 (5-15); BUN 22 mg/dL (7-18); Calcium,Total 10.3 mg/dL (8.5-10.1); Chloride 105 mmol/L (98-107); Cholesterol 143 mg/dL (200); Creatinine, Serum 0.92 mg/dL (0.55-1.02); EST Glomerular Filtration Rate 63 mL/min (>60); Est Glom Filt Rate - Afr Amer 77 mL/min (>60); Globulin 4.1 g/dL (2.2-4.2); Glucose 153 mg/dL (74-106); High Density Lipoprotein 35 mg/dL; Microalbumin,Random Urine 12.9 mg/L (NO RANGE EST.); Potassium 4.4 mmol/L (3.5-5.1); Protein, Total 7.6 g/dL (6.4-8.2); Sodium Level 138 mmol/L (136-145); T4 Free Direct 1.64 ng/dL (0.76-1.46); Thyroid Stim Hormone (TSH) 0.24 uIU/mL (0.358-3.74); Triglycerides 290 mg/dL; Very Low Density Lipoprotein 58 mg/dL (5-40)
[2021-12-09 16:06] LABS: Hemoglobin A1c 6.9 % (3.8-5.6)
== END | disposition home or self-care (01) ==
LOC: MTLAB 11:54
PROVIDERS: PCP Family Medicine; Referring Provider Internal Medicine Endocrinology, Diabetes & Metabolism; Visit Provider Internal Medicine Endocrinology, Diabetes & Metabolism
DX: E11.40 Type 2 diabetes mellitus with diabetic neuropathy, unspecified (principal); E03.9 Hypothyroidism, unspecified; I10 Essential (primary) hypertension; E78.5 Hyperlipidemia, unspecified
CPT/HCPCS: 36415; 80053; 80061; 82043; 83036; 84439; 84443

== ENCOUNTER → 2021-12-21 | Outpatient (CLI) | payer MEDICARE, BC, SELFPAY ==
--- NOTE | 2021-12-21 09:05 | BD_ITS ---
STUDY: DUAL ENERGY X-RAY ABSORPTIOMETRY / DXA REASON FOR EXAM: Female, 76 years old. M810. The patient is postmenopausal. TECHNIQUE: Bone Mineral Density (BMD) measurements of lumbar spine and bilateral hips were obtained. COMPARISON: None. FINDINGS: Lumbar Spine (L1-L4): g/cm2 (0.990) / T-score (-0.3) / Z-score (2.2) Findings are suggestive of normal bone density with a low fracture risk. Left Femur Total: g/cm2 (0.843) / T-score (-0.8) / Z-score (1.0) Left Femoral Neck: g/cm2 (0.676) / T-score (-1.6) / Z-score (0.6) Right Femur Total: g/cm2 (0.809) / T-score (-1.1) / Z-score (0.7) Right Femoral Neck: g/cm2 (0.603) / T-score (-2.2) / Z-score (-0.1) BD/Dexa Bone Density Study IMPRESSION: The patient is considered osteopenic as outlined below according to World [employer] Organization (WHO) criteria with a high fracture risk. Reference Information: The T-score is the number of standard deviations above or below the standard which is normal for young adults at their peak bone mineral density. The World Health Organization (WHO) interprets the T-scores as follows: Above -1 Normal bone density Between -1 and -2.5 Osteopenia Equal to / or below -2.5 Osteoporosis As a practical clinical guideline, osteopenia may be graded as follows: Mild -1 through -1.5 Moderate -1.6 through -2.0 Severe -2.1 through -2.4 The Z-score is the number of standard deviations above or below age-matched controls. A Z-score of less than -1.5 would be considered abnormal. References: 1. NIH Osteoporosis and Related Bone Diseases www osteo.org 2. International Society for Clinical Densitometry www iscd.org 3. National Osteoporosis Foundation www nof.org Electronically Signed: Daron Russell MD at 8:41 EDT ,
== END | disposition home or self-care (01) ==
LOC: OPBD 09:00
PROVIDERS: PCP Family Medicine; Visit Provider Internal Medicine Endocrinology, Diabetes & Metabolism
DX: M81.0 Age-related osteoporosis without current pathological fracture (principal)
CPT/HCPCS: 77080

== ENCOUNTER → 2022-02-18 | Outpatient (CLI) | payer MEDICARE, BC, SELFPAY ==
--- NOTE | 2022-02-18 10:10 | CT_ITS ---
EXAMINATION: COMPUTED TOMOGRAPHY OF THE LEFT FOREARM AND WRIST WITHOUT CONTRAST ENHANCEMENT OF 2228 HOURS ON 02/18/2022 CLINICAL: 76-year-old female with known oblique displaced fracture of the distal ulna in November 2021. PROCEDURE: Helical computed tomography of the left forearm and wrist was performed without contrast enhancement was demonstrated in osseous and soft tissue algorithm in the axial, coronal, and sagittal projections. FINDINGS: There is a 95% laterally displaced and 9 mm fracture of the distal ulna at 1.25 cm from the left wrist joint. There is no evidence of healing or callus formation at the fracture site. There is no evidence of associated osseous lytic, sclerotic or mass lesions. There is no evidence of a distal radial fracture. The bones of the wrist are without fractures or dislocations. The proximal metacarpals are without abnormalities. There are no findings of an osteomyelitis or periostitis. The surrounding soft tissues are without abnormalities. CT/Extremity Upper without Contra IMPRESSION: 1. Presence of a 95% laterally displaced and 9 mm fracture of the distal ulna at 1.25 cm from the left wrist joint. 2. No evidence of healing or callus formation at the fracture site. 3. No associated osseous lytic, sclerotic or mass lesions. 4. No osteomyelitis or periostitis. 5. No other fractures or dislocations. 6. Normal surrounding soft tissues. Electronically Signed: Jaun Gilbert MD at 23:29 EDT ,
== END | disposition home or self-care (01) ==
LOC: CT 10:08
PROVIDERS: PCP Family Medicine; Referring Provider Physician Assistant; Visit Provider Physician Assistant
DX: S52.232D Displaced oblique fracture of shaft of left ulna, subsequent encounter for closed fracture with routine healing (principal)
CPT/HCPCS: 73200

== ENCOUNTER 2022-03-16 05:52 | Day surgery (SDC) | payer MEDICARE, BC, SELFPAY ==
--- NOTE | 2022-03-09 10:52 | EKG12_ITS ---
Test Reason : PREOP Blood Pressure : / mmHG Vent. Rate : 075 BPM Atrial Rate : 075 BPM P-R Int : 214 ms QRS Dur : 130 ms QT Int : 402 ms P-R-T Axes : 036 -60 084 degrees QTc Int : 448 ms Sinus rhythm with 1st degree A-V block Left axis deviation Left bundle branch block Abnormal ECG Confirmed by MORRIS ULRICH, ALEX ([id number]), newspaper editor MILANA RENAE ([id number]) on 03/10/2022 2:29:42 P M Referred By: Harsh Elizabeth Confirmed By:BEV CACERES MD
--- NOTE | 2022-03-09 10:57 | RAD_ITS ---
EXAM: XR CHEST, 2 VIEWS CLINICAL INDICATION: PREOP TECHNIQUE: Frontal and lateral views of the chest. This report was created using [employer] report generation technology. COMPARISON: XR Chest dated 09/26/2021 FINDINGS: LUNGS AND PLEURAL SPACES: Shallow inspiration. Linear density left lung base again seen suggestive of scarring. No pneumothorax. No effusion. HEART: Normal heart size. MEDIASTINUM: Calcified subcarinal lymph nodes. BONES/JOINTS: No acute abnormality. SOFT TISSUES: Normal. RAD/Chest PA and Lateral IMPRESSION: No acute cardiopulmonary abnormality. Electronically Signed: Trevor Pruitt MD at 11:54 EDT ,
[2022-03-09 11:35] LABS: Absolute Lymphocyte Count 3.71 X10^3/uL (0.83-4.51); Absolute Neutrophil Count 6.1 X10^3/uL (2.0-7.7); Basophil# 0.12 X10^3/uL; Basophil% 1.1 % (0-1); Eosinophil# 0.49 X10^3/uL; Eosinophils% 4.4 % (0-5); Hematocrit 38.9 % (37-47); Hemoglobin 12.9 g/dL (12.0-15.0); Lymphocyte # 3.71 X10^3/ul (0.83-4.51); Mean Corp Hgb Conc 33.2 g/dL (32-36); Mean Corpuscular Volume 90.5 fL (81-99); Mean Platelet Vol. 10.4 fl (6.2-12.0); Monocyte# 0.73 X10^3/uL; Monocyte% 6.5 % (0-10); NRBC Flagged by Analyzer 0 % (0-5); Neutrophil # 6.14 X10^3/uL (2.7-7.7); Neutrophil % 54.6 % (47-70); Platelet Count 306 K/mm3 (150-450); RBC Distribution Width CV 13.2 % (11.6-14.6); RBC Distribution Width SD 42.9 fl (35.1-43.9); White Blood Count 11.2 K/mm3 (4.4-11.0)
[2022-03-09 11:59] LABS: Albumin, Serum 3.7 g/dL (3.2-5.0); Anion Gap 5 (5-15); BUN 15 mg/dL (7-18); BUN/Creat Ratio 20.5 RATIO (10-20); Calcium,Total 10.6 mg/dL (8.5-10.1); Chloride 106 mmol/L (98-107); Creatinine, Serum 0.73 mg/dL (0.55-1.02); EST Glomerular Filtration Rate 82 mL/min (>60); Est Glom Filt Rate - Afr Amer 99 mL/min (>60); Glucose 144 mg/dL (74-106); Sodium Level 139 mmol/L (136-145)
[2022-03-09 12:05] LABS: Vitamin D,25 Hydroxy 90.4 ng/mL
[2022-03-09 12:09] LABS: Hemoglobin A1c 7.3 % (3.8-5.6)
[2022-03-09 12:18] LABS: Thyroid Stim Hormone (TSH) 0.29 uIU/mL (0.358-3.74)
[2022-03-16] VITALS (8 sets, daily range): BP systolic 133–168; BP diastolic 58–88; PULSE 69–77; RESP 16–18; TEMP 36.1–37.1; O2SAT 93–96; BMI 35.8
--- NOTE | 2022-03-16 06:30 | RAD_ITS ---
STUDY: X-RAY - LEFT WRIST REASON FOR EXAM: Female, 76 years old. Period of ORIF of ulnar. Intraoperative digital documentation images. TECHNIQUE: 2 intraoperative digital documentation view(s) of the wrist were obtained. COMPARISON: November 02, 2021. FINDINGS: 2 intraoperative digital documentation views show 2 malleable plate and screws having been placed across the previously described distal ulnar fracture. Anatomic alignment without complications. RAD/Wrist 2 Views IMPRESSION: ORIF of distal ulna without complications. Electronically Signed: Elton Levine, at 12:56 EDT ,
[2022-03-16] MEDS: Lactated Ringers 1,000 ML 15 ML IV (06:53)
[2022-03-16 07:36] LABS: Bedside Glucose 236 mg/dL (74-106)
[2022-03-16] MEDS: Cefazolin 2 GM in 0.9% Normal Saline 100 ML IV (07:40)
--- NOTE | 2022-03-16 09:24 | DCINST_ITS ---
Discharge Instructions Follow Up Care Test Results: Test results from this visit will be discussed in further detail at your follow- up appointment, if applicable. Discharge Plan Admission Primary Reason for Your Visit: Left wrist surgery Attending Provider: Harsh Elizabeth Primary Care Provider: Abhinav Bosch Instructions Additional Instructions / Restrictions: Follow preprinted instructions from your surgeons office. Discharge Orders/Prescriptions Prescriptions: New oxycodone 5 mg tablet 5 mg PO Q6H PRN (Reason: pain) 7 Days Qty: 28 0RF Continued (DME) blood sugar diagnostic Strip See Rx Instructions .ROUTE .MEDSUPPLY Qty: 100 Label Comments: use 1 Strip four times daily Rx Instructions: As directed metformin 500 mg tablet extended release 24 hr 2,000 mg PO QHS Qty: 360 Label Comments: TAKE 4 TABLETS BY MOUTH ONCE DAILY AT NIGHT ergocalciferol (vitamin D2) 1,000 unit capsule 1,000 unit capsule 1,000 unit PO DAILY (DME) blood-glucose meter Misc See Rx Instructions .ROUTE .MEDSUPPLY Qty: 1 Rx Instructions: As directed Toujeo SoloStar U-300 Insulin 300 unit/mL (1.5 mL) insulin pen 70 unit subcut 1730 insulin lispro [Humalog Alec KwikPen U-100] 100 unit/mL insulin pen, half- unit 30 unit subcut DINNER simvastatin 20 mg tablet 20 mg PO QHS Label Comments: 1 tablet by mouth once a day levothyroxine 150 MCG tablet 150 mcg PO DAILY olmesartan [Benicar] 20 mg tablet 20 mg PO DAILY Label Comments: 1 tablet by mouth once a day pregabalin [Lyrica] 200 mg capsule 200 mg PO BID cyanocobalamin (vitamin B-12) 1,000 mcg Tablet, Sublingual 1,000 mcg SUBLINGUAL DAILY famotidine [Acid Designer And Patternmaker (famotidine)] 10 mg Tablet 10 mg PO QHS acetaminophen 650 mg Tablet Extended Release 650 mg PO Q12H PRN (Reason: Pain) ibuprofen 400 mg Tablet 400 mg PO Q6H PRN (Reason: Pain) Referrals / Follow Up: Abhinav Bosch MD [Primary Care Provider] - Harsh Elizabeth DO [Med Staff - Active Staff] - Within 2 Weeks Disposition Disposition (needs filled in before D/C Order can be placed): Home, Self Care
--- NOTE | 2022-03-16 09:40 | OP.PCM_ITS ---
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 Repair left distal radius nonunion with internal fixation 2. Autograft cancellous bone harvesting left distal radius Surgeon: Harsh Elizabeth DO Final Application Reviewer: Bryanna Michaels PA-C Anesthesia: General LMA with axillary block Anesthesiologist: Dr. Qiu Complications: None Drains: None Estimated blood loss: 25 cc Urinary output: None recorded IV fluids: 1600 cc crystalloid Specimens: None Surgical implants: Synthes 6-hole 2.7 mm LCDC plate, Synthes 6 hole 2.0 mm LCDC plate Surgical indications: This is a 76-year-old female who sustained a left distal ulnar shaft fracture and October 2021. She was managed nonoperatively in a cast. She eventually went on to nonunion. Her nonunion work-up was benign. She failed bone stimulator for 6 weeks. I saw the patient in consultation. There was no healing as evidenced on x-ray and CT scan. I recommended surgical intervention in the form of left distal ulnar shaft nonunion takedown with internal fixation and autograft from the left distal radius metaphysis. The risk, benefits, alternatives to procedure reviewed with the patient at length and she agreed to proceed. Risks included but were not limited to bleeding, infection, loss of life or limb, nonhealing bone or wounds, persistent pain, neurovascular injury, loss of function of the hand wrist or forearm, symptomatic hardware, DVT or PE. Patient expressed understanding of these risks and wished to proceed with surgery. Description of procedure: Patient was seen in preoperative holding area. He was identified by name, medical record number, date of . The operative extremity was marked with a surgical marker. We confirmed informed consent with the patient and all questions were answered to his satisfaction. An axillary block was placed in the preoperative holding area by the anesthesia staff. At time of her procedure, patient was brought to the operative suite and positioned supine on a standard operating table. All bony prominences were well-padded. General anesthesia was administered. After adequate anesthesia, a well-padded pneumatic tourniquet was applied to the upper arm of the operative extremity. We then spun the bed 90 degrees. We prepped and draped the operative extremity in a normal, sterile orthopedic fashion. We then performed a timeout with all parties in attendance in agreement the side, site, and operation be performed. No concerns were voiced and we elected to proceed. 2 g Ancef was administered for antibiotic prophylaxis prior to the incision by anesthesia staff. I first exsanguinated the operative extremity with an Esmarch bandage. Tourniquet was inflated to 250 mmHg. Esmarch was removed. I percent my a ttention to the distal radial metaphysis. Approximately 1 cm proximal to Kaykay's tubercle, a 1 cm longitudinal incision was made. I bluntly dissected down the level of the dorsal fascia. This was split in line with the incision. I bluntly dissected down to level of the dorsal cortex of the distal radius. I then utilized the OsteoAuger autograft harvest device from [employer] utilizing a 6 mm diameter retrieving approximately 5 cc of cancellous bone graft. I then turned my attention to the distal ulna. Standard longitudinal subcutaneous approach to the ulna was utilized approximately 6 cm in length. Full-thickness skin flaps were developed down to level of fascia. Fascia was opened sharply with a 15 blade scalpel. I elevated the periosteum of the ulna. There was fibrous tissue noted at the nonunion site which was debrided with 15 blade, rongeur. I freshen the ends of the bone with a curette. I packed the fracture site with the harvested bone graft. I then provisionally held reduction with lobster-claw forceps. A K wire was placed across the fracture site. I then selected a 6-hole 2.7 mm LCDC plate from [employer] after anatomic reduction was confirmed on fluoroscopy. Plate was secured to bone with cortical screws on either side of the fracture site. Locking screw was placed distal to the fracture site as well as it was only able to achieve 2 points of fixation distally. 3 cortical screws were placed proximal to the fracture site. Due to limited surface area distal to the fracture site, I elected to place a second 2.0 mm LCDC plate along the dorsum of the ulna. In similar fashion, cortical screws were placed proximal and distal to fracture site. Rigid fixation was achieved at the fracture site. Final fluoroscopic images were obtained. I copiously irrigated the wounds with normal saline solution. Tourniquet was deflated. Hemostasis was excellent. We closed the dermis in buried intradermal fashion with a 3-0 Vicryl. Skin was finally reapproximated with horizontal mattress 3-0 nylon suture. Sterile compression dressing was applied as well as a short arm volar fiberglass splint. Patient tolerated procedure well without complication. She was safely extubated in the operative suite and transferred to PACU in stable condition. Need for skilled clinical trials assistant: Bryanna Michaels PA-C was critical to the outcome of the case. During the course of the procedure the physician clinical trials assistant played a vital role. Her intimate knowledge of my steps in the procedure aided in safe and expedient completion of the procedure. The PA played a vital role in positi oning particularly in obtaining the appropriate positioning. The PA was also vital in the retraction of soft tissues during the exposure and protecting vital structures. The PA was also vital and obtaining fracture reduction and assisting with hardware placement. She also played a vital role in closure and splint application with my direct supervision. Post Operative Plan: Weightbearing: Nonweightbearing operative extremity Antibiotics: 2 g Ancef x 1 dose preoperatively DVT Prophylaxis: 81 mg aspirin twice daily starting tomorrow Dressing: Maintain splint, keep it clean dry and intact until follow-up X-Rays: 2 weeks postop in the office Pain Medication: Oxycodone prescription sent to her pharmacy Follow-up: 2 weeks post-operatively with me in the office
[2022-03-16 10:35] LABS: Bedside Glucose 180 mg/dL (74-106)
== END 2022-03-16 12:23 | disposition home or self-care (01) ==
LOC: SDC 05:53 → AC 05:53
PROVIDERS: Anesthesiology; PCP Family Medicine; Referring Provider Student in an Organized Health Care Education/Training Program; Visit Provider Student in an Organized Health Care Education/Training Program
PROC: (CPT 25405; principal; 2022-03-16 07:10)
DX: S52.232 Displaced oblique fracture of shaft of left ulna (principal); E11.9 Type 2 diabetes mellitus without complications; Z79.4 Long term (current) use of insulin; Y93.89 Activity, other specified; W19.XXXA Unspecified fall, initial encounter; I44.0 Atrioventricular block, first degree; I44.7 Left bundle-branch block, unspecified; I10 Essential (primary) hypertension; E07.9 Disorder of thyroid, unspecified; E78.00 Pure hypercholesterolemia, unspecified; E66.8 Other obesity; Z71.3 Dietary counseling and surveillance; Z68.32 Body mass index [BMI] 32.0-32.9, adult; Z79.84 Long term (current) use of oral hypoglycemic drugs; Z79.899 Other long term (current) drug therapy; Z87.891 Personal history of nicotine dependence
CPT/HCPCS: 25405; 01830; 64417; 36415; 71046; 73100; 76000; 80048; 82040; 82306; 82962; 83036; 84443; 85025; 93005; C1776; J7120; J2405

== ENCOUNTER → 2022-04-11 | Outpatient (CLI) | payer MEDICARE, BC, SELFPAY ==
[2022-04-11 12:52] LABS: PTHIN 50.6 pg/mL (18.4-80.1)
[2022-04-11 12:53] LABS: Vitamin D,25 Hydroxy 79.1 ng/mL
[2022-04-11 13:17] LABS: AST(SGOT) 41 U/L (15-37); Alanine Aminotransfer ALT/SGPT 22 U/L (13-56); Albumin, Serum 3.8 g/dL (3.2-5.0); Alkaline Phosphatase 87 U/L (45-117); Anion Gap 8 (5-15); BUN 17 mg/dL (7-18); BUN/Creat Ratio 23.5 RATIO (10-20); Calcium,Total 11.1 mg/dL (8.5-10.1); Chloride 106 mmol/L (98-107); Cholesterol 180 mg/dL (200); Creatinine, Serum 0.72 mg/dL (0.55-1.02); EST Glomerular Filtration Rate 83 mL/min (>60); Est Glom Filt Rate - Afr Amer 101 mL/min (>60); Globulin 3.9 g/dL (2.2-4.2); Glucose 148 mg/dL (74-106); High Density Lipoprotein 41 mg/dL; Phosphorus 3.1 mg/dL (2.5-4.9); Potassium 4.3 mmol/L (3.5-5.1); Protein, Total 7.7 g/dL (6.4-8.2); Sodium Level 138 mmol/L (136-145); Thyroid Stim Hormone (TSH) 0.96 uIU/mL (0.358-3.74); Triglycerides 265 mg/dL; Very Low Density Lipoprotein 53 mg/dL (5-40)
[2022-04-11 13:50] LABS: Hemoglobin A1c 7.2 % (3.8-5.6)
[2022-04-13 20:48] LABS: Vitamin D 1,25-Dihydroxy 46.9 pg/mL (24.8-81.5)
== END | disposition home or self-care (01) ==
LOC: MTLAB 09:22
PROVIDERS: PCP Family Medicine; Referring Provider Internal Medicine Endocrinology, Diabetes & Metabolism; Visit Provider Internal Medicine Endocrinology, Diabetes & Metabolism
DX: E11.21 Type 2 diabetes mellitus with diabetic nephropathy (principal); E03.9 Hypothyroidism, unspecified; E78.5 Hyperlipidemia, unspecified; I10 Essential (primary) hypertension; E55.9 Vitamin D deficiency, unspecified
CPT/HCPCS: 36415; 80053; 80061; 82306; 82330; 82652; 83036; 83970; 84100; 84439; 84443

== ENCOUNTER → 2022-04-17 | Outpatient (CLI) | payer MEDICARE, BC, SELFPAY | END | disposition home or self-care (01) | PROVIDERS: PCP Family Medicine; Visit Provider Nurse Practitioner Family | DX: N39.0 Urinary tract infection, site not specified (principal) | CPT/HCPCS: 87077; 87086; 87088; 87186 ==

== ENCOUNTER → 2022-05-17 | Outpatient (CLI) | payer MEDICARE, BC, SELFPAY ==
[2022-05-17 10:20] LABS: Calcium, Urine (Random) 6.8 mg/dL (Not Estab.)
[2022-05-17 10:30] LABS: PTHIN 47.9 pg/mL (18.4-80.1)
[2022-05-17 10:35] LABS: Vitamin D,25 Hydroxy 66.5 ng/mL
[2022-05-17 10:36] LABS: Phosphorus 3.5 mg/dL (2.5-4.9)
[2022-05-19 19:31] LABS: Vitamin D 1,25-Dihydroxy 44.2 pg/mL (24.8-81.5)
== END | disposition home or self-care (01) ==
PROVIDERS: PCP Family Medicine; Referring Provider Internal Medicine Endocrinology, Diabetes & Metabolism; Visit Provider Internal Medicine Endocrinology, Diabetes & Metabolism
DX: E11.9 Type 2 diabetes mellitus without complications (principal); E03.9 Hypothyroidism, unspecified; E78.5 Hyperlipidemia, unspecified; I10 Essential (primary) hypertension; G62.9 Polyneuropathy, unspecified; E55.9 Vitamin D deficiency, unspecified
CPT/HCPCS: 36415; 82306; 82330; 82340; 82570; 82652; 83735; 83970; 84100

== ENCOUNTER → 2022-06-06 | Outpatient (CLI) | payer MEDICARE, BC, SELFPAY ==
[2022-06-06 15:30] LABS: Vitamin B12 272 pg/mL (211-911)
[2022-06-11 19:06] LABS: Thyroid Peroxidase AB 92 IU/mL (0-34); Vitamin B1, Thiamine 134.6 nmol/L (66.5-200.0)
[2022-06-11 22:32] LABS: Thyroglobulin Antibody < 1.0 IU/mL (0.0-0.9); VITAMIN B6 4.8 ug/L (3.4-65.2)
== END | disposition home or self-care (01) ==
LOC: MTLAB 11:15
PROVIDERS: PCP Family Medicine; Referring Provider Family Medicine; Visit Provider Family Medicine
DX: E53.9 Vitamin B deficiency, unspecified (principal)
CPT/HCPCS: 36415; 82607; 84207; 84425; 86376; 86800

== ENCOUNTER → 2022-06-28 | Outpatient (CLI) | payer MEDICARE, BC, SELFPAY ==
[2022-06-28 11:09] LABS: PTHIN 59.4 pg/mL (18.4-80.1)
[2022-06-28 11:13] LABS: Vitamin D,25 Hydroxy 44.8 ng/mL
[2022-06-28 11:22] LABS: ALB/GLOB Ratio 0.8 RATIO (0.9-2.4); AST(SGOT) 41 U/L (15-37); Alanine Aminotransfer ALT/SGPT 18 U/L (13-56); Albumin, Serum 3.3 g/dL (3.2-5.0); Alkaline Phosphatase 100 U/L (45-117); Anion Gap 9 (5-15); BUN 21 mg/dL (7-18); BUN/Creat Ratio 26.8 RATIO (10-20); Calcium,Total 9.3 mg/dL (8.5-10.1); Chloride 105 mmol/L (98-107); Cholesterol 113 mg/dL (200); Creatinine, Serum 0.78 mg/dL (0.55-1.02); EST Glomerular Filtration Rate 76 mL/min (>60); Est Glom Filt Rate - Afr Amer 92 mL/min (>60); Globulin 3.9 g/dL (2.2-4.2); Glucose 222 mg/dL (74-106); High Density Lipoprotein 38 mg/dL; Phosphorus 2.2 mg/dL (2.5-4.9); Potassium 3.9 mmol/L (3.5-5.1); Protein, Total 7.2 g/dL (6.4-8.2); Sodium Level 139 mmol/L (136-145); T4 Free Direct 1.38 ng/dL (0.76-1.46); Thyroid Stim Hormone (TSH) 5.43 uIU/mL (0.358-3.74); Triglycerides 287 mg/dL; Very Low Density Lipoprotein 57 mg/dL (5-40)
== END | disposition home or self-care (01) ==
LOC: MTLAB 08:53
PROVIDERS: PCP Family Medicine; Referring Provider Internal Medicine Endocrinology, Diabetes & Metabolism; Visit Provider Internal Medicine Endocrinology, Diabetes & Metabolism
DX: E11.9 Type 2 diabetes mellitus without complications (principal); E03.9 Hypothyroidism, unspecified; E78.5 Hyperlipidemia, unspecified; I10 Essential (primary) hypertension; E55.9 Vitamin D deficiency, unspecified
CPT/HCPCS: 36415; 80053; 80061; 82306; 82330; 83036; 83970; 84100; 84439; 84443

== ENCOUNTER → 2022-07-05 | Outpatient (CLI) | payer MEDICARE, BC, SELFPAY ==
--- NOTE | 2022-07-05 12:40 | RAD_ITS ---
STUDY: X-RAY LEFT FOOT, THIRD TOE REASON FOR EXAM: Female, 76 years old. Third digit wound after procedure. TECHNIQUE: 4 view(s) of the toe were obtained. COMPARISON: None. FINDINGS: Osteopenia. Moderate arthrosis of the MTP and IP joints with hammertoe deformities. Diffuse soft tissue swelling of the third digit. RAD/Toe(s) Min 2 Views IMPRESSION: Osteopenia, osteoarthritic changes and diffuse third digit soft tissue swelling. Electronically Signed: Elton Levine, at 12:56 EST ,
== END | disposition home or self-care (01) ==
LOC: MTRAD 12:35
PROVIDERS: PCP Family Medicine; Referring Provider Family Medicine; Visit Provider Family Medicine
DX: M79.675 Pain in left toe(s) (principal)
CPT/HCPCS: 73660

== ENCOUNTER → 2022-07-25 | Outpatient (CLI) | payer MEDICARE, BC, SELFPAY ==
[2022-07-25 17:46] LABS: Erythrocyte Sedimentation Rate 30 mm/hr (0-30)
== END | disposition home or self-care (01) ==
LOC: MFPLAB 16:19
PROVIDERS: PCP Family Medicine; Visit Provider Family Medicine
DX: L03.90 Cellulitis, unspecified (principal)
CPT/HCPCS: 36415; 85652

== ENCOUNTER → 2022-08-01 | Outpatient (CLI) | payer MEDICARE, BC, SELFPAY ==
--- NOTE | 2022-08-01 09:49 | ART_ITS ---
Reason For Study: Decreased Pedal Pulse Procedure A bilateral lower extremity continuous wave Doppler with analog waveform analysis,segmental pressures,and ankle brachial indexes with exercise. Left Segmental Pressures Left brachial= 180mmHg. Left posterior tibial artery = >254mmHg. Left dorsalis pedis artery = 219mmHg. Left digit = 123 mmHg. The left posterior tibial artery waveforms are triphasic. The left dorsalis pedis waveforms are triphasic. Right Segmental Pressures Right brachial= 171mmHg. Right posterior tibial artery = >254mmHg. Right dorsalis pedis artery = 217mmHg. Right digit = 155 mmHg. The right posterior tibial artery waveforms are triphasic. The right dorsalis pedis waveforms are triphasic. Indices The right ankle brachial index by the posterior tibial artery is N/C. The right ankle brachial index by the dorsalis pedis is 1.21. The right digital-brachial index is 0.86. The right ankle brachial index by the dorsalis pedis post exercise is 1.16. The left ankle brachial index by the posterior tibial artery is N/C. The left ankle brachial index by the dorsalis pedis is 1.22. The left digital- brachial index is 0.73. The left dorsalis pedis index post exercise is 1.16. VL/Lower Ext Art Exam w/ Exercise Interpretation Summary Triphasic Doppler waveforms are noted at ankle level bilaterally. Pulse-volume recordings appear satisfactory at all levels bilaterally. Resting ankle-brachial indices are norm al bilaterally. Digital-brachial indices are normal bilaterally. The patient ambulated on a micky admill for 4 minutes at 1 MPH and a 5% incline, following which ankle pressures augmented bilaterall y, a normal physiological response. There is no evidence of significant arterial occlusive disease in the lower ext remities bilaterally. Ordering Physician: Benny Bosch Referring Physician: BENNY BOSCH MD Performed By: Mark David RVT
== END | disposition home or self-care (01) ==
LOC: CVS 09:47
PROVIDERS: PCP Family Medicine; Referring Provider Family Medicine; Visit Provider Family Medicine
DX: R09.89 Other specified symptoms and signs involving the circulatory and respiratory systems (principal)
CPT/HCPCS: 93924

== ENCOUNTER 2022-08-17 15:29 | Emergency (ER) | payer MEDICARE, BC, SELFPAY ==
[2022-08-17 15:29] VITALS: BP 209/135; PULSE 81; RESP 16; TEMP 36.6; O2SAT 100; BMI 31.1
[2022-08-17 15:42] VITALS: BP 194/107; PULSE 79; RESP 12; O2SAT 98
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
[2022-08-17] MEDS: Morphine 2 MG/ML Syringe IV (16:18)
[2022-08-17] MEDS: Ondansetron 4 MG/2 ML Vial IV (16:18)
[2022-08-17] MEDS: 0.9% Normal Saline 1,000 ML 1000 ML IV (16:19)
[2022-08-17 16:33] LABS: Absolute Lymphocyte Count 3.42 X10^3/uL (0.83-4.51); Absolute Neutrophil Count 6.5 X10^3/uL (2.0-7.7); Basophil# 0.12 X10^3/uL; Basophil% 1.1 % (0-1); Eosinophil# 0.27 X10^3/uL; Eosinophils% 2.4 % (0-5); Hematocrit 40.7 % (37-47); Hemoglobin 13.1 g/dL (12.0-15.0); Lymphocyte # 3.42 X10^3/ul (0.83-4.51); Lymphocyte % 30.6 % (19-41); Mean Corp Hgb Conc 32.2 g/dL (32-36); Mean Corpuscular Hgb 28.7 pg (27.0-32.0); Mean Corpuscular Volume 89.3 fL (81-99); Mean Platelet Vol. 10.2 fl (6.2-12.0); Monocyte# 0.84 X10^3/uL; Monocyte% 7.5 % (0-10); NRBC Flagged by Analyzer 0 % (0-5); Neutrophil # 6.51 X10^3/uL (2.7-7.7); Neutrophil % 58.1 % (47-70); Platelet Count 362 K/mm3 (150-450); RBC Distribution Width CV 13.9 % (11.6-14.6); RBC Distribution Width SD 44.8 fl (35.1-43.9); Red Blood Count 4.56 M/mm3 (4.2-5.4); White Blood Count 11.2 K/mm3 (4.4-11.0)
[2022-08-17 16:43] VITALS: BP 191/107; PULSE 76; RESP 13; O2SAT 98
[2022-08-17 16:46] LABS: ALB/GLOB Ratio 0.8 RATIO (0.9-2.4); AST(SGOT) 67 U/L (15-37); Alanine Aminotransfer ALT/SGPT 26 U/L (13-56); Albumin, Serum 3.9 g/dL (3.2-5.0); Alkaline Phosphatase 81 U/L (45-117); Anion Gap 8 (5-15); BUN 13 mg/dL (7-18); BUN/Creat Ratio 18.9 RATIO (10-20); Calcium,Total 10.7 mg/dL (8.5-10.1); Chloride 104 mmol/L (98-107); Creatinine, Serum 0.69 mg/dL (0.55-1.02); EST Glomerular Filtration Rate 88 mL/min (>60); Est Glom Filt Rate - Afr Amer 107 mL/min (>60); Estimated Creatinine Clearance 39.59 ml/min; Globulin 4.6 g/dL (2.2-4.2); Glucose 153 mg/dL (74-106); Lipase 144 U/L (73-393); Potassium 3.8 mmol/L (3.5-5.1); Protein, Total 8.5 g/dL (6.4-8.2); Sodium Level 135 mmol/L (136-145)
[2022-08-17 17:16] VITALS: BP 200/100; PULSE 74; RESP 17; O2SAT 98
[2022-08-17 18:45] LABS: Bacteria 0 SEEN /hpf (None Seen); Mucous, Urine 0 SEEN /hpf (<or=2+); Red Blood Cells-Urine 0 SEEN /hpf (0-5); Squamous Epithelial Cells - UA 0 SEEN /hpf (5-10); White Blood Cells 0 SEEN /hpf (0-5)
[2022-08-17 18:47] LABS: Color, Urine Yellow (Yellow); Glucose, Dipstick Normal (Normal); Ketone-Dipstick Negative (Negative); Leukocyte Esterase-Dipstick Negative /ul (Negative); Nitrite-Dipstick Negative (Negative); Occult Blood-Urine Negative /ul (Negative); Protein-Dipstick 15 mg/dl (Negative); Urine Bilirubin Dipstick Negative (Negative); Urine Clarity Clear (Clear); Urine Urobilinogen Normal (Normal)
[2022-08-17 19:10] VITALS: BP 190/89; PULSE 78; RESP 15; O2SAT 97
[2022-08-17 19:55] VITALS: BP 179/139; PULSE 77; RESP 16; O2SAT 97
[2022-08-17] MEDS: Ondansetron ODT 4 MG Tablet PO (20:01)
--- NOTE | 2022-08-17 20:06 | ED.RN ---
PER DR. FINN, PT OKAY TO TAKE HOME MORNING BLOOD PRESSURE MEDICATION WHEN SHE GETS HOME. THIS RN LET PT AND PT FAMILY MEMBER KNOW THIS WITH DISCHARGE INSTRUCTIONS.
== END 2022-08-17 20:07 | disposition home or self-care (01) ==
PROVIDERS: Emergency Provider Emergency Medicine; PCP Family Medicine; Visit Provider Emergency Medicine
DX: R10.30 Lower abdominal pain, unspecified (principal); S09.90XA Unspecified injury of head, initial encounter; N18.9 Chronic kidney disease, unspecified; K76.0 Fatty (change of) liver, not elsewhere classified; V89.2XXA Person injured in unspecified motor-vehicle accident, traffic, initial encounter; Z87.891 Personal history of nicotine dependence
CPT/HCPCS: 70450; 74177; 80053; 81001; 83690; 85025; 96361; 96374; 96375; 99284; J7030; Q9967; A4216; J2405

== ENCOUNTER → 2022-09-18 | Outpatient (CLI) | payer MEDICARE, BC, SELFPAY ==
[2022-09-18 13:16] LABS: Bacteria 0 SEEN /hpf (None Seen); Mucous, Urine 0 SEEN /hpf (<or=2+); Red Blood Cells-Urine 0 SEEN /hpf (0-5); Squamous Epithelial Cells - UA 0 SEEN /hpf (5-10); White Blood Cells 0 SEEN /hpf (0-5)
[2022-09-18 13:29] LABS: Color, Urine Yellow (Yellow); Glucose, Dipstick Normal (Normal); Ketone-Dipstick Negative (Negative); Leukocyte Esterase-Dipstick Negative /ul (Negative); Nitrite-Dipstick Negative (Negative); Occult Blood-Urine Negative /ul (Negative); Protein-Dipstick 15 mg/dl (Negative); Specific Gravity, Urine 1.015 (1.002-1.030); Urine Bilirubin Dipstick Negative (Negative); Urine Clarity Sl. Cloudy (Clear); Urine Urobilinogen Normal (Normal)
== END | disposition home or self-care (01) ==
LOC: LABSPEC 13:05
PROVIDERS: PCP Family Medicine; Referring Provider Nurse Practitioner Family; Visit Provider Nurse Practitioner Family
DX: R35.0 Frequency of micturition (principal)
CPT/HCPCS: 81001; 87086; 87088

== ENCOUNTER → 2022-10-30 | Outpatient (CLI) | payer MEDICARE, BC, SELFPAY ==
[2022-10-30 10:26] LABS: Absolute Lymphocyte Count 2.64 X10^3/uL (0.83-4.51); Eosinophil# 0.36 X10^3/uL; Eosinophils% 3.7 % (0-5); Hematocrit 36.5 % (37-47); Hemoglobin 11.8 g/dL (12.0-15.0); Lymphocyte # 2.64 X10^3/ul (0.83-4.51); Lymphocyte % 26.8 % (19-41); Mean Corp Hgb Conc 32.3 g/dL (32-36); Mean Corpuscular Hgb 29.6 pg (27.0-32.0); Mean Corpuscular Volume 91.7 fL (81-99); Monocyte# 0.75 X10^3/uL; Monocyte% 7.6 % (0-10); NRBC Flagged by Analyzer 0 % (0-5); Neutrophil # 5.98 X10^3/uL (2.7-7.7); Neutrophil % 60.6 % (47-70); Platelet Count 260 K/mm3 (150-450); RBC Distribution Width CV 14.3 % (11.6-14.6); RBC Distribution Width SD 47.6 fl (35.1-43.9); Red Blood Count 3.98 M/mm3 (4.2-5.4); White Blood Count 9.9 K/mm3 (4.4-11.0)
[2022-10-30 10:30] LABS: Vitamin B12 1334 pg/mL (211-911); Vitamin D,25 Hydroxy 53.4 ng/mL
[2022-10-30 10:32] LABS: Ionized Calcium 5.45 mg/dL (4.36-5.20)
[2022-10-30 11:03] LABS: ALB/GLOB Ratio 0.9 RATIO (0.9-2.4); AST(SGOT) 35 U/L (15-37); Alanine Aminotransfer ALT/SGPT 20 U/L (13-56); Albumin, Serum 3.5 g/dL (3.2-5.0); Alkaline Phosphatase 96 U/L (45-117); Anion Gap 7 (5-15); BUN 18 mg/dL (7-18); BUN/Creat Ratio 23.3 RATIO (10-20); Calcium,Total 10.4 mg/dL (8.5-10.1); Chloride 107 mmol/L (98-107); Cholesterol 111 mg/dL (200); Creatinine, Serum 0.77 mg/dL (0.55-1.02); EST Glomerular Filtration Rate 77 mL/min (>60); Est Glom Filt Rate - Afr Amer 93 mL/min (>60); Free T3 2.5 pg/mL (2.18-3.98); Globulin 4.1 g/dL (2.2-4.2); Glucose 176 mg/dL (74-106); High Density Lipoprotein 38 mg/dL; Phosphorus 2.7 mg/dL (2.5-4.9); Protein, Total 7.6 g/dL (6.4-8.2); Sodium Level 138 mmol/L (136-145); T4 Free Direct 1.55 ng/dL (0.76-1.46); Thyroid Stim Hormone (TSH) 0.41 uIU/mL (0.358-3.74); Triglycerides 150 mg/dL; Very Low Density Lipoprotein 30 mg/dL (5-40)
[2022-10-30 13:34] LABS: PTHIN 52.3 pg/mL (18.4-80.1)
[2022-10-30 19:36] LABS: Microalbumin,Random Urine 59.5 mg/L (NO RANGE EST.); Microalbumin:Creatinine Ratio 83.2 mg/g CRE (<30 mg/g CRE)
[2022-11-02 20:07] LABS: VITAMIN B6 8.6 ug/L (3.4-65.2); Vitamin B1, Thiamine 228.8 nmol/L (66.5-200.0)
== END | disposition home or self-care (01) ==
LOC: MTLAB 08:32
PROVIDERS: PCP Family Medicine; Referring Provider Internal Medicine Endocrinology, Diabetes & Metabolism; Visit Provider Internal Medicine Endocrinology, Diabetes & Metabolism
DX: E11.49 Type 2 diabetes mellitus with other diabetic neurological complication (principal); E83.52 Hypercalcemia; E03.9 Hypothyroidism, unspecified; G62.9 Polyneuropathy, unspecified; E78.5 Hyperlipidemia, unspecified
CPT/HCPCS: 80053; 80061; 82043; 82306; 82330; 82570; 82607; 83036; 83970; 84100; 84207; 84425; 84439; 84443; 84481; 85025

== ENCOUNTER → 2022-11-10 | Outpatient (CLI) | payer MEDICARE, BC, SELFPAY ==
--- NOTE | 2022-11-10 09:26 | BI_ITS ---
MAMMOGRAPHY - BILATERAL DIAGNOSTIC REASON FOR EXAM: Female, 76 years old. Palpable lump at the 12 to 1:00 position of the right breast. PERTINENT HISTORY: Non-contributory. TECHNIQUE: Digital bilateral breast ashlyn (3D mammographic acquisition) in the CC and MLO projections. 2-D mediolateral oblique (MLO) and craniocaudad (CC) views of both breasts were obtained. CAD: Full Field Digital Mammography with Computer Added Detection was performed. COMPARISON: No comparison mammograms available at this time. If any prior films become available, an addendum to this report can be generated. FINDINGS: Breast Composition: There are scattered areas of fibroglandular density. The palpable lump corresponds to a area in the upper quadrant of the right breast with multiple irregular nodular densities. Correlation with ultrasound is recommended. No other significant abnormalities are identified. BI/DIAG MAMM W/CAD, BILAT IMPRESSION: Irregular nodules are seen in the right breast in the upper inner quadrant of the breast suggestive of a neoplastic process. Correlation with ultrasound is recommended. ASSESSMENT CATEGORY: BIRADS Category 0: Incomplete. Need additional imaging evaluation. A letter regarding these results will be sent to the patient by the facility within 30 days. Approximately 10% of breast cancers are not detected by mammography. A normal mammogram should not delay biopsy of a clinically suspicious abnormality. Electronically Signed: Daron Russell MD at 10:16 EDT ,
--- NOTE | 2022-11-10 09:26 | US_ITS ---
STUDY: ULTRASOUND BREAST - RIGHT REASON FOR EXAM: Female, 76 years old. Palpable lump in the upper quadrant of the right breast. TECHNIQUE: Axial and longitudinal images of the RIGHT breast were performed with a high resolution ultrasound transducer. # OF IMAGES: 47 COMPARISON: Comparison is made with prior study dated November 10, 2022. FINDINGS: RIGHT Breast: The palpable in the mouth to corresponds to a conglomeration of multiple hypoechoic spiculated irregular nodular densities at the 1:00 position of the breast at 11 cm from nipple. The largest nodule measures 1 cm x 2.7 cm x 1.4 cm. US/Breast Limited Unilateral IMPRESSION: Multiple hypoechoic irregular nodules in the upper inner quadrant of the right breast at the 1:00 position at 12 cm from the nipple. Biopsy recommended. ASSESSMENT CATEGORY: BIRADS Category 5: Highly Suggestive of Malignancy - Appropriate Action Should Be Taken. A letter regarding these results will be sent to the patient by the facility within 30 days. Electronically Signed: Daron Russell MD at 11:08 EDT ,
== END | disposition home or self-care (01) ==
PROVIDERS: PCP Family Medicine; Referring Provider Internal Medicine Endocrinology, Diabetes & Metabolism; Visit Provider Internal Medicine Endocrinology, Diabetes & Metabolism
DX: R92.8 Other abnormal and inconclusive findings on diagnostic imaging of breast (principal)
CPT/HCPCS: 76642; 77062; 77066; G0279

== ENCOUNTER → 2022-11-15 | Outpatient (CLI) | payer MEDICARE, BC, SELFPAY ==
--- NOTE | 2022-11-15 | IMM_PTH ---
PATIENT: SULEIMAN RAMSEY LOC: [facility] U#:[id number] AGE/SX: 76/F ROOM: RE11/15/[address]: Dr. Rio Richards MD : 1945 BED: DIS: 11/15/2022 SPEC #: [id number] RECD: 11/17/22 14:06 STATUS: MAYELIN REQ #: [id number] PRIYANKA: 11/15/22 00:[address]: Rio Richards DEPT: IMMUNOHISTOCHEMISTRY RECD BY: Nina Urban ENTERED: 11/17/22 14:12 SP TYPE: IMMUNO OTHR DR: Dr. Abhinav Bosch MD Tissues: Right breast, NOS Procedures: CALPONIN-1 (add) CK5-6 (add) CK8 (add) ARREDONDO-2 (add) E-CAD (add) HER2 SHEEBA (add) KI-67 (add) P53 (add) MD (add) IN SITU HYBRIDIZATION P40 (add) ER (initial) PHYSICIAN & [address] [address] SPECIMEN INFORMATION: Tissue Source: Right breast Clinical Info: Abnormal right breast ultrasound Specimen Number: [id number] CPT code: 28949, 04055 x7, 78668 x3 METHODOLOGY: Deparaffinized sections of prefer/formalin-fixed tissue or PAP/DQ stained slides are incubated with monoclonal/polyclonal antibodies/oligonucleotide probes. Localization is made via biotin free immunoperoxidase method. Appropriate controls are performed and reacted as expected. Results on target cell population are indicated in the following table: RESULTS: ANTIBODY / CLONE RESULT P53 (DO-7) positive Ki-67 (30-9) positive CK8 (32wypeN82) positive CK5-6 (D5 & 1684) negative Calponin-1 (HM860J) negative P40 (BC28) negative E-Cad (ECH-6) positive ARREDONDO-2 (SP21) positive MORPHOMETRIC ANALYSIS ER (clone 6F11) >95% , strong MD (clone 16/1E2) 80%, weak to moderate Her-2Neu (clone CB11) 1 - 2+ (equivocal) The prognostic test for HER2 is performed on formalin-fixed paraffin embedded tissue. A 3+ (positive) staining pattern is defined as intense, homogeneous, complete, circumferential membranous staining in >10% of contiguous tumor cells. A similar weak (2+) staining pattern is interpreted as equivocal. CHANNING follow-up testing is recommended for all equivocal cases. Positivity/negativity for ER/MD is reported if > or < 1% of the tumor cells are immuno- reactive, respectively. The ASCO/CAP criteria is used for scoring. Reference: Journal of Clinical Oncology, 2013; 31:5549-4900 & 2010; 16:2751-9566. Duration of fixation: 29.5 Hrs; Sample Adequate: Yes. These assays have not been validated on decalcified tissues. Results should be interpreted with caution given the likelihood of false negativity on decalcified specimens. These tests were developed and their performance characteristics determined by [facility]. They may not have been cleared or approved by the U.S. Food and Drug Administration. The FDA has determined that such clearance or approval is not necessary. The above immunohistochemical/dualISH markers are ordered and reviewed by the Pathologist. INTERPRETATION: Right breast, biopsy: Invasive ductal carcinoma, nuclear grade 2. Positive for estrogen receptors (favorable prognostic indicator). Positive for progesterone receptors (favorable prognostic indicator). Equivocal for overexpression of NRM9zez. AM:karen 11/21/2022 ADDENDUM ADDENDUM ADDENDUM ADDENDUM ADDENDUM ADDENDUM ADDENDUM ADDENDUM ADDENDUM ADDENDUM ADDENDUM ADDENDUM ADDENDUM ADDENDUM ADDENDUM ADDENDUM ADDENDUM ADDENDUM ADDENDUM ADDENDUM ADDENDUM ADDENDUM ADDENDUM ADDENDUM 11/23/2022 14:18 ADDENDUM 11/23/2022 14:18 ADDENDUM 11/23/2022 14:18 ADDENDUM 11/23/2022 14:18 ADDENDUM 11/23/2022 14:18 Breast Cancer HER-2 Dual CHANNING Analysis Interpretation: Non Amplified Her-2: CEP-17 ratio: 1.32 Average Her2 Signal: 3.65 Average CEP-17 Signal: 2.75 Number of Tumor Cells Scanned 50 Interpretative Information: The INFORM HER2 Dual CHANNING DNA probe Cocktail assay is performed on formalin-fixed paraffin embedded tissue and determines HER2 gene status by detecting HER2 copies via silver in situ hybridization (SISH) and Chromosome 17 copies via chromogenic red in situ hybridization on tumor cells. HER2 gene status is classified as Non-Amplified (HER2/Chr17 ratio < 2.0) or Amplified (HER2/Chr17 ratio greater than or equal to 2.0). If the resulting HER2/Chr17 ratio falls within 1.8 - 2.2 (Borderline), retesting by FISH is recommended. References: 2013 ASCO/CAP HER2 Testing Guideline Update: Recommendations for Human Epidermal Growth Factor Receptor 2 Testing in Breast Cancer, Kevin et al, Arch Pathol Lab Med, doi: 10.5858/arpa, 6765-1488-ED. Comment: Mild polysomy noted AM:karen 11/23/22
--- NOTE | 2022-11-15 13:30 | BRBX_PTH ---
PATIENT: SULEIMAN RAMSEY LOC: [facility] U#:[id number] AGE/SX: 76/F ROOM: RE11/15/[address]: Dr. Rio Richards MD : 1945 BED: DIS: 11/15/2022 SPEC #: [id number] RECD: 11/15/22 14:07 STATUS: MAYELIN ACOSTA #: [id number] PRIYANKA: 11/15/22 13:[address]: Rio Richards DEPT: SURGICAL PATHOLOGY RECD BY: Thomas Eaton ENTERED: 11/16/22 08:40 SP TYPE: BREAST BX OTHR DR: Dr. Abhinav Bosch MD Tissues: Right breast, NOS Procedures: Surgery Specimen Level IV HEADER OPERATION: Right breast biopsy PRE-OP DIAGNOSIS: Abnormal breast ultrasound right TISSUE SUBMITTED: Right breast tissue MICROSCOPIC DIAGNOSIS Right breast, ultrasound-guided core biopsy: Invasive ductal carcinoma with the following characteristics: Nuclear grade - 2/3 Maximal length - 13 millimeters See comment. AM:angie 11/17/2022 COMMENT Immunohistochemistry ([id number]) supports the above diagnosis. Case has been reviewed in consultation with Dr. Horvath who concurs with the above diagnosis. IDC:[id number] MICROSCOPIC DESCRIPTION Slides are reviewed. GROSS DESCRIPTION Received in fixative is one container labeled with the patient's name and designated right breast. The specimen consists of a single elongated core of [place] tissue measuring 1.5 cm in length and 0.1 cm in average diameter. The specimen is totally submitted in one cassette. / AM:angie 11/16/2022 TC:0 CPT: 26869 ADDENDUM ADDENDUM ADDENDUM ADDENDUM ADDENDUM ADDENDUM ADDENDUM ADDENDUM ADDENDUM ADDENDUM ADDENDUM 12/26/2022 09:36 ADDENDUM 12/26/2022 09:36 ADDENDUM 12/26/2022 09:36 ADDENDUM 12/26/2022 09:36 ADDENDUM 12/26/2022 09:36 This addendum is added to incorporate an outside pathology consultation report. The case was examined at [facility] (#[id number]) and the following diagnosis was rendered. Right breast, ultrasound-guided core biopsy: Invasive ductal carcinoma, provisional histologic grade 2, measuring 13 mm in greatest dimension. Please see complete above mentioned consultation report in EMR
== END | disposition home or self-care (01) ==
LOC: LABSPEC 14:14
PROVIDERS: PCP Family Medicine; Referring Provider Surgery; Visit Provider Surgery
DX: R92.8 Other abnormal and inconclusive findings on diagnostic imaging of breast (principal)
CPT/HCPCS: 88305; 88341; 88342; 88368

== ENCOUNTER → 2022-11-29 | Outpatient (CLI) | payer MEDICARE, BC, SELFPAY ==
--- NOTE | 2022-11-29 07:50 | CT_ITS ---
STUDY: CT CHEST, ABDOMEN T PELVIS WITH CONTRAST REASON FOR EXAM: Female, 77 years old. STAGING BREAST CANCER RIGHT SIDE NEW DIAGNOSIS RADIATION DOSAGE (If Supplied By Facility): CTDIvol = ( 16.81 ) mGy, DLP = ( 1603.65 ) mGycm TECHNIQUE: Transaxial imaging was performed following intravenous administration of IV 100mL Isovue-300. Individualized dose optimization techniques were used for this CT. COMPARISON: CT abdomen and pelvis August 17, 2022; PA and lateral chest x-ray March 09, 2022 FINDINGS: CHEST Two calcified granulomata seen in the posterior periphery of the basilar right lower lobe, the larger measuring 9 mm. There is minor subsegmental crowding or scarring at the posterior midlungs and the lung bases, but the lung mccollum are otherwise clear. There is no demonstrated pleural abnormality. Normal heart size and pericardium. There are calcifications in the aortic and mitral valve annuli. Atherosclerotic calcifications noted in the left anterior descending coronary artery. Lobulated 3.15 x 1.4 x 2 cm subcarinal calcification is consistent with a cluster of calcified lymph nodes. Normal hilar regions. Normal unenhanced pulmonary arteries. Atherosclerotic calcific plaquing of the aorta arch and descending thoracic aorta. 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 There are multilevel degenerative changes of the thoracic spine. Shallow, well-corticated evagination of the superior T10 vertebral endplate is consistent with a benign Schmorl''s node. A cluster of lobulated nodular soft tissue densities are seen in the right breast. Focal hyperdensity that may be a post biopsy microclip is noted within one of the larger nodularities. ABDOMEN Normal liver. The patent portal vein diameter is 14.5 mm. Normal gallbladder and extrahepatic biliary system. Diameter of the common bile duct is 5 mm. There are a few small calcified granulomata in the spleen. Normal size and contour of the pancreas. Diameter of the central pancreatic duct reaches a 6 mm. Normal bilateral adrenal glands. Normal right kidney. Normal left kidney. No hydronephrosis. Normal visualized stomach. Normal small intestine. Normal caliber of the colon. There are numerous diverticula of the left and sigmoid colon The appendix is visualized and appears normal. There is diffuse atherosclerotic calcific plaquing of the abdominal aorta, common iliac, and internal iliac arteries. No demonstrated aneurysm. Normal inferior vena cava. Normal retroperitoneum. Stable small, fat filled umbilical hernia. There are stable multilevel degenerative changes of the lumbar spine. PELVIS Normal urinary bladder. There is no pelvic fluid. There is no pelvic lymphadenopathy or mass lesion. Stable bulbous appearance of the uterus, which may be due to an anteflexed position, but also raising question of a 5 cm fibroid in the anterior body of the uterus. There is a fat filled small left inguinal hernia. Normal osseous structures. CT/CT Chest, Abd, Pel w/Contrast IMPRESSION: 1. A group of nodular soft tissue densities are present in the right breast. Small postbiopsy microclip may be present within one of the nodules. These presumably correlate with the breast cancer noted in the patient''s history. 2. No CT findings for metastatic disease in the chest, abdomen, or pelvis. 3. Atherosclerotic vascular calcifications present, as described. Calcifications are also seen in the aortic and mitral valve annuli. No demonstrated aortic aneurysm. 4. Findings of old calcified granulomatous disease, as noted. 5. Diverticulosis of the left and sigmoid colon. No sign of bowel obstruction. Appendix is unremarkable. 6. Stable small, fat filled umbilical and left inguinal hernias. 7. Stable bulbous appearance of the uterus without a clearly defined mass. If clinical suspicion of a fibroid warrant additional imaging, pelvic ultrasound is advised. 8. Stable extensive degenerative changes of the spine. Electronically Signed: Russel Cox MD at 9:16 EDT Reading Location ID and State: [id number] / Unknown , Service support ,
--- NOTE | 2022-11-29 07:50 | US_ITS ---
INDICATION: STAGING BREAST CANCER -- RIGHT AXILLA EXAMINATION: Right axillary ultrasound. HISTORY: Lobulated right breast mass consistent with malignancy COMPARISON: Right breast ultrasound November 10, 2022 TECHNIQUE: Routine ultrasound imaging of the right axilla was performed. FINDINGS: 2 benign-appearing lymph nodes are identified within the fatty tissues of the axilla. The larger is 10.6 x 6.1 x 7.3 mm and shows significant fatty replacement. A second 4.5 x 8.3 x 2.4 mm nearby lymph node is also seen. There is no demonstrated mass or suspicious adenopathy. US/Ext Non Vasc Limited/Soft Tiss IMPRESSION: No sonographic evidence of suspicious right axillary adenopathy or mass. Electronically Signed: Russel Cox MD at 9:51 EDT Reading Location ID and State: [id number] / Unknown , Service support ,
== END | disposition home or self-care (01) ==
LOC: CT 07:49
PROVIDERS: PCP Family Medicine; Referring Provider Internal Medicine Hematology & Oncology; Visit Provider Internal Medicine Hematology & Oncology
DX: C50.211 Malignant neoplasm of upper-inner quadrant of right female breast (principal); Z17.0 Estrogen receptor positive status [ER+]
CPT/HCPCS: 71260; 74177; 76882; Q9967

== ENCOUNTER → 2022-12-04 | Outpatient (CLI) | payer MEDICARE, BC, SELFPAY ==
--- NOTE | 2022-12-04 08:18 | NM_ITS ---
CLINICAL: 77-year-old female with history of primary breast carcinoma. WHOLE BODY 99m Tc MDP RADIONUCLIDE BONE SCINTIGRAPHY COMPARISON: None available FINDINGS: Following the intravenous administration of 26.8 mCi of 99m Tc MDP, whole body bone images reveal: 1. There is increased radiopharmaceutical concentration defined in the left anterolateral fifth and sixth ribs, linear in presentation in the longitudinal plane. 2. Facilitated uptake is noted in the acromioclavicular and sternoclavicular compartments of both shoulders, the glenohumeral compartment of the left shoulder, the bilateral wrists, both knees, the ankles bilaterally, the right and left mid and forefoot, the third through fifth lumbar vertebra, the first thoracic vertebra posteriorly on the left and right. 3. The remaining skeletal structures are scintigraphically unremarkable with normal-appearing renal images and urinary bladder activity identified. NM/Bone Scan Whole Body IMPRESSION: 1. The increase in tracer uptake defined in the left anterolateral fifth and sixth ribs is commensurate with trauma-fracture. 2. Degenerative arthrosis is defined in the bilateral shoulder and wrist articulations, both knees, the right height left ankles, the mid and forefoot bilaterally, the lower lumbar spine and first thoracic vertebra. Plain film radiography correlation may be of benefit in the region of the lumbar spine. 3. There is no definitive scintigraphic evidence of diffuse skeletal metastatic disease on the current examination. Electronically Signed: Teja Zhu, at 9:00 EDT ,
== END | disposition home or self-care (01) ==
LOC: NM 08:18
PROVIDERS: PCP Family Medicine; Referring Provider Internal Medicine Hematology & Oncology; Visit Provider Internal Medicine Hematology & Oncology
DX: C50.911 Malignant neoplasm of unspecified site of right female breast (principal)
CPT/HCPCS: 78306; A9503

== ENCOUNTER → 2022-12-05 | Outpatient (CLI) | payer MEDICARE, BC, SELFPAY ==
[2022-12-06 13:13] LABS: Free Kappa Light Chains 51.6 mg/L (3.3-19.4); Free Lambda Light Chains 21.5 mg/L (5.7-26.3)
== END | disposition home or self-care (01) ==
LOC: MTLAB 08:53
PROVIDERS: PCP Family Medicine; Referring Provider Psychiatry & Neurology Neurology; Visit Provider Psychiatry & Neurology Neurology
DX: G62.9 Polyneuropathy, unspecified (principal)
CPT/HCPCS: 36415; 82746; 83883

== ENCOUNTER → 2022-12-26 | Outpatient (CLI) | payer MEDICARE, BC, SELFPAY ==
[2022-12-29 15:09] LABS: Albumin 3.7 g/dL (2.9-4.4); Alpha-1-Globulins 0.2 g/dL (0.0-0.4); Alpha-2-Globulins 0.9 g/dL (0.4-1.0); Gamma Globulin 1.1 g/dL (0.4-1.8); Immunoglobulin A 435 mg/dL (64-422); Immunoglobulin G 1252 mg/dL (586-1602); Immunoglobulin M 30 mg/dL (26-217); PROEL- TOTAL PROTEIN 7.3 g/dL (6.0-8.5)
== END | disposition home or self-care (01) ==
LOC: MTLAB 15:03
PROVIDERS: PCP Family Medicine; Referring Provider Psychiatry & Neurology Neurology; Visit Provider Psychiatry & Neurology Neurology
DX: G62.9 Polyneuropathy, unspecified (principal)
CPT/HCPCS: 36415; 82784; 84165; 86334; 86335

== ENCOUNTER → 2023-02-22 | Outpatient (CLI) | payer MEDICARE, BC, SELFPAY ==
[2023-02-22 15:47] LABS: Mucous, Urine 0 SEEN /hpf (<or=2+); Red Blood Cells-Urine 0 SEEN /hpf (0-5)
[2023-02-22 15:59] LABS: Color, Urine Yellow (Yellow); Glucose, Dipstick Normal (Normal); Ketone-Dipstick Negative (Negative); Leukocyte Esterase-Dipstick 100 /ul (Negative); Nitrite-Dipstick Negative (Negative); Occult Blood-Urine 10 /ul (Negative); Protein-Dipstick Negative (Negative); Specific Gravity, Urine 1.005 (1.002-1.030); Urine Bilirubin Dipstick Negative (Negative); Urine Clarity Clear (Clear); Urine Urobilinogen Normal (Normal); Urine pH 6.5 (5.0 - 8.0)
[2023-02-22 16:14] LABS: Bacteria 1+ /hpf (None Seen); Squamous Epithelial Cells - UA 0-5 SEEN /hpf (5-10); Transitional Epithelial - Ur 0-5 SEEN /hpf (0-5); White Blood Cells 10-25 SEEN /hpf (0-5)
== END | disposition home or self-care (01) ==
LOC: LABSPEC 15:31
PROVIDERS: PCP Family Medicine; Referring Provider Physician Assistant Surgical; Visit Provider Physician Assistant Surgical
DX: R30.0 Dysuria (principal)
CPT/HCPCS: 81001; 87086; 87088; 87186

== ENCOUNTER → 2023-05-15 | Outpatient (CLI) | payer MEDICARE, BC, SELFPAY ==
--- OUTSIDE RECORDS SUMMARY | 2023-05-15 08:35 | XMS RPT_ITS | CCD ---
Author Name Unknown Address [id number] [place] [address] Organization [facility] Care Team Providers Care Tassel Maker Name Role Phone Eric Benny Jaquez Primary Care Provider Unavailable Primary Care Provider Unavaillia Bosch MD, Benny Cordova Primary Care Provider Jhonny ULRICH MD, Joy Unavailable [phone] BENNY BOSCH Primary Care Unavailable ALEX DANIELLE Referring Unavailable SAMUEL DINH Attending Unavailable EILEEN FOSTER Referring Unavailable MICKI PARKINSON Attending Unavailable LUIS ALBERTO FOSTERIN Referring Unavailable BENNY BOSCH Referring Unavailable ALEX DANIELLE Attending Unavailable BENNY BOSCH Primary Care Unavailable MICKI PARKINSON A Admitting Unavailable MICKI PARKINSON A Attending Unavailable ALEX DANIELLE Referring Unavailable BENNY BOSCH Primary Care Unavailable ALEX DANIELLE Attending Unavailable BENNY BOSCH Primary Care Unavailable MICKI PARKINSON A Referring Unavailable ALEX DANIELLE Attending Unavailable BENNY BOSCH Primary Care Unavailable BENNY BOSCH Primary Care Unavailable BENNY BOSCH Primary Care Unavailable JOY BARRY Attending Unavailable BENNY BOSCH Primary Care Unavailable BENNY BOSCH Primary Care Unavailable BENNY BOSCH Primary Care Unavailable SULEMAN MONZON Referring Unavailable BENNY BOSCH Primary Care Unavailable BENNY BOSCH Primary Care Unavailable BENNY BOSCH Primary Care Unavailable BENNY BOSCH Primary Care Unavailable BENNY BOSCH Primary Care Unavailable BRITTANY OLVERA Attending Unavailable MICKI PARKINSON A Referring Unavailable BENNY BOSCH Primary Care Unavailable ALEX DANIELLE Attending Unavailable BENNY BOSCH Primary Care Unavailable EVON MICKI A Referring Unavailable SULEMAN MONZON Referring Unavailable BENNY BOSCH Primary Care Unavailable BENNY BOSCH Primary Care Unavailable JOY BARRY Attending Unavailable BENNY BOSCH Primary Care Unavailable BENNY BOSCH Primary Care Unavailable BENNY BOSCH Primary Care Unavailable BENNY BOSCH Primary Care Unavailable SCHBENNY CHRISTOPHER Primary Care Unavailable JOY BARRY Attending Unavailable KORI ROMAN Attending Unavailable BENNY BOSCH Primary Care Unavailable LAEX DANIELLE Referring Unavailable BENNY BOSCH Primary Care Unavailable JOY BARRY Attending Unavailable BENNY BOSCH Primary Care Unavailable BENNY BSOCH Primary Care Unavailable BENNY BOSCH Primary Care Unavailable BENNY BOSCH Primary Care Unavailable BOBBY CHOWDHURY Attending Unavailable BENNY BOSCH Primary Care Unavailable BENNY BOSCH Primary Care Unavailable BENNY BOSCH Primary Care Unavailable SCHBENNY CHRISTOPHER Primary Care Unavailable JOY BARRY Attending Unavailable BENNY BOSCH Primary Care Unavailable BRITTANY OLVERA Attending Unavailable BENNY BOSCH Primary Care Unavailable BENNY BOSCH Primary Care Unavailable SUSAN WILKINSON Attending Unavailable BENNY BOSCH Primary Care Unavailable BOBBY CHOWDHURY Referring Unavailable BENNY BOSCH Primary Care Unavailable JOY BARRY Attending Unavailable BENNY BOSCH Primary Care Unavailable JOY BARRY Attending Unavailable BENNY BOSCH Primary Care Unavailable BENNY BOSCH Primary Care Unavailable JOY BARRY Attending Unavailable BENNY BOSCH Primary Care Unavailable BENNY BOSCH Primary Care Unavailable BENNY BOSCH Primary Care Unavailable JOY BARRY Referring Unavailable JOY BARRY Attending Unavailable BENNY BOSCH Primary Care Unavailable JOY BARRY Referring Unavailable JOY BARRY Attending Unavailable BENNY BOSCH Primary Care Unavailable BENNY BOSCH Primary Care Unavailable BENNY BOSCH Primary Care Unavailable BENNY BOSCH Primary Care Unavailable BENNY BOSCH Primary Care Unavailable Medications Current Medications Medication Drug Class(es) Dates Sig (Normalized) Sig (Original) acetaminophen 500 mg oral tablet (5 sources) Start: 01-09-2023 End: 01-23-2023 take 2 tablets by mouth every six hours as needed acetaminophen (TYLENOL EXTRA STRENGTH) 500 mg tablet Take 2 tablets by mouth every 6 hours as needed for pain for up to 14 days. 24 tablet 0 01/09/2023 01/23/2023 Active Completed/Discontinued Medications Medication Drug Class(es) Dates Sig (Normalized) Sig (Original) acetaminophen 325 mg / HYDROcodone bitartrate 5 mg oral tablet (20 sources) Opioid Agonist Start: 01-09-2023 End: 04-20-2023 take 1 tablet by mouth every eight hours as needed for pain HYDROcodone-acetami nophen (NORCO) 5-325 mg per tablet Indications: Acute post-operative pain Take 1 tablet by mouth every 8 hours as needed for pain. 8 tablet 0 01/09/2023 04/20/2023 Discontinued Problems Active Problems Problem Classification Problem Date Documented Date Episodic/Chronic Cancer of breast (20 sources) Malignant neoplasm of female breast; Translations: [Malignant neoplasm of unspecified site of unspecified female breast] Onset: 12-22-2022 12-15-2022 Chronic Conduction disorders (20 sources) Left bundle branch block; Translations: [Left bundle-branch block, unspecified] Onset: 01-05-2023 01-05-2023 Chronic Diabetes mellitus without complication (20 sources) Diabetes mellitus; Translations: [Type 2 diabetes mellitus without complications] Onset: 01-05-2023 01-05-2023 Chronic Disorders of lipid metabolism (20 sources) Pure hypercholesterolemia; Translations: [Pure hypercholesterolemia, unspecified] Onset: 01-05-2023 01-05-2023 Chronic Essential hypertension (20 sources) Benign essential hypertension; Translations: [Essential (primary) hypertension] Onset: 01-05-2023 01-05-2023 Chronic Menopausal disorders (20 sources) Menopausal symptom; Translations: [Menopausal and female climacteric states] Onset: 02-06-2007 02-06-2007 Chronic Mood disorders (20 sources) Depressive disorder; Translations: [Major depressive disorder, single episode, unspecified] Onset: 04-21-2011 04-21-2011 Chronic Other inflammatory condition of skin (20 sources) Rosacea; Translations: [Rosacea, unspecified] Onset: 06-09-2012 06-09-2012 Chronic Other nervous system disorders (1 source) Other acute postprocedural pain; Translations: [Acute post-operative pain] Onset: 01-09-2023 Episodic Other nutritional; endocrine; and metabolic disorders (20 sources) Obese class I; Translations: [Obesity, unspecified] Onset: 01-10-2023 01-10-2023 Chronic Prolapse of female genital organs (20 sources) Midline cystocele; Translations: [Cystocele, midline] Onset: 04-21-2011 04-21-2011 Chronic Thyroid disorders (20 sources) Hypothyroidism; Translations: [Hypothyroidism, unspecified] Onset: 01-05-2023 01-05-2023 Chronic Unclassified (1 source) Established Patient Onset: 02-09-2023 Past or Other Problems Problem Classification Problem Date Documented Date Episodic/Chronic Allergic reactions (20 sources) Contact dermatitis due to detergent; Translations: [Irritant contact dermatitis due to detergents] Onset: 06-09-2012 06-09-2012 Episodic Nonmalignant breast conditions (20 sources) Breast lump; Translations: [Unspecified lump in unspecified breast] Onset: 02-06-2007 02-06-2007 Episodic Other 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 (1 source) 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; Translations: [Type 2 diabetes mellitus without complication, with long-term current use of insulin (HCC)] Onset: 01-05-2023 Episodic Other circulatory disease (20 sources) Telangiectasia disorder; Translations: [Nevus, non-neoplastic] Onset: 06-09-2012 06-09-2012 Episodic Other connective tissue disease (20 sources) Foot pain; Translations: [Neuralgia and neuritis, unspecified] Onset: 06-09-2012 06-09-2012 Episodic Other female genital disorders (20 sources) Vulval and/or perineal noninflammatory disorders; Translations: [Noninflammatory disorder of vulva and perineum, unspecified] Onset: 02-06-2007 02-06-2007 Episodic Other inflammatory condition of skin (20 sources) Seborrheic dermatitis; Translations: [Other seborrheic dermatitis] Onset: 06-09-2012 06-09-2012 Episodic Other skin disorders (20 sources) Changes in skin texture; Translations: [Other skin changes] Onset: 06-09-2012 06-09-2012 Episodic Other skin disorders (20 sources) Asteatosis cutis; Translations: [Xerosis cutis] Onset: 06-09-2012 06-09-2012 Episodic Other skin disorders (20 sources) Disorder of skin pigmentation; Translations: [Other specified disorders of pigmentation] Onset: 06-09-2012 06-09-2012 Episodic Residual codes; unclassified (2 sources) Estrogen receptor positive status [ER+]; Translations: [Malignant neoplasm of upper-inner quadrant of right breast in female, estrogen receptor positive (HCC)] Onset: 12-22-2022 Episodic Results Test Name Value Interpretation Reference Range Facil ity Vital Signs Date Time Vital Sign Value Performing Clinician [place] 04-20-2023 11:00-0500 Body temperature 97.59 [degF] [place] Wilkinson SYSTEMS ENGINEER.FITNESS AND WELLNESS DIRECTOR Work Phone: [facility] 04-20-2023 11:00-0500 Body weight 76.66 kg Susan Wilkinson SYSTEMS ENGINEER.FITNESS AND WELLNESS DIRECTOR Work Phone: [facility] 04-20-2023 11:00-0500 Diastolic blood pressure 84 mm[Hg] [place] Wilkinson SYSTEMS ENGINEER.FITNESS AND WELLNESS DIRECTOR Work Phone: [facility] 04-20-2023 11:00-0500 Heart rate 81 /min [place] Wilkinson SYSTEMS ENGINEER.FITNESS AND WELLNESS DIRECTOR Work Phone: [facility] 04-20-2023 11:00-0500 Systolic blood pressure 147 mm[Hg] Susan Wilkinson SYSTEMS ENGINEER.FITNESS AND WELLNESS DIRECTOR Work Phone: [facility] 04-03-2023 09:41-0500 Body temperature 97.5 [degF] Treatment Wstr Work Phone: [facility] 04-03-2023 09:41-0500 Diastolic blood pressure 78 mm[Hg] Treatment Wstr Work Phone: [facility] 04-03-2023 09:41-0500 Heart rate 69 /min Treatment Wstr Work Phone: [facility] 04-03-2023 09:41-0500 Systolic blood pressure 136 mm[Hg] Treatment Wstr Work Phone: [facility] 03-27-2023 10:16-0500 Body temperature 97.59 [degF] Joy Barry MD, MD Work Phone: [facility] 03-27-2023 10:16-0500 Diastolic blood pressure 84 mm[Hg] Joy Barry MD, MD Work Phone: [facility] 03-27-2023 10:16-0500 Heart rate 70 /min Joy Barry MD, MD Work Phone: [facility] 03-27-2023 10:16-0500 SaO2% (BldA) [Mass fraction] 97 % Joy Barry MD, MD Work Phone: [facility] 03-27-2023 10:16-0500 Systolic blood pressure 145 mm[Hg] Joy Barry MD, MD Work Phone: [facility] 03-20-2023 10:33-0500 Body temperature 98.01 [degF] Joy Barry MD, MD Work Phone: [facility] 03-20-2023 10:33-0500 Diastolic blood pressure 72 mm[Hg] Joy Barry MD, MD Work Phone: [facility] 03-20-2023 10:33-0500 Heart rate 78 /min Joy Barry MD, MD Work Phone: [facility] 03-20-2023 10:33-0500 SaO2% (BldA) [Mass fraction] 98 % Joy Barry MD, MD Work Phone: [facility] 03-20-2023 10:33-0500 Systolic blood pressure 122 mm[Hg] Joy Barry MD, MD Work Phone: [facility] 03-13-2023 10:17-0400 Body temperature 97.3 [degF] Joy Barry MD, MD Work Phone: [facility] 03-13-2023 10:17-0400 Diastolic blood pressure 82 mm[Hg] Joy Barry MD, MD Work Phone: [facility] 03-13-2023 10:17-0400 Heart rate 69 /min Joy Barry MD, MD Work Phone: [facility] 03-13-2023 10:17-0400 SaO2% (BldA) [Mass fraction] 98 % Joy Barry MD, MD Work Phone: [facility] 03-13-2023 10:17-0400 Systolic blood pressure 138 mm[Hg] Joy Barry MD, MD Work Phone: [facility] 03-06-2023 10:35-0400 Body temperature 97.3 [degF] Joy Barry MD, MD Work Phone: [facility] 03-06-2023 10:35-0400 Diastolic blood pressure 80 mm[Hg] Joy Barry MD, MD Work Phone: [facility] 03-06-2023 10:35-0400 Heart rate 67 /min Joy Barry MD, MD Work Phone: [facility] 03-06-2023 10:35-0400 SaO2% (BldA) [Mass fraction] 99 % Joy Barry MD, MD Work Phone: [facility] 03-06-2023 10:35-0400 Systolic blood pressure 156 mm[Hg] Joy Barry MD, MD Work Phone: [facility] 02-27-2023 10:14-0400 Body temperature 97.11 [degF] Joy Barry MD, MD Work Phone: [facility] 02-27-2023 10:14-0400 Diastolic blood pressure 75 mm[Hg] Joy Barry MD, MD Work Phone: [facility] 02-27-2023 10:14-0400 Heart rate 72 /min Joy Barry MD, MD Work Phone: [facility] 02-27-2023 10:14-0400 SaO2% (BldA) [Mass fraction] 97 % Joy Barry MD, MD Work Phone: [facility] 02-27-2023 10:14-0400 Systolic blood pressure 132 mm[Hg] Joy Barry MD, MD Work Phone: [facility] 02-02-2023 14:23-0400 Body temperature 98.01 [degF] Joy Barry MD, MD Work Phone: [facility] 02-02-2023 14:23-0400 Body weight 78.02 kg Joy Barry MD, MD Work Phone: [facility] 02-02-2023 14:23-0400 Diastolic blood pressure 83 mm[Hg] Joy Barry MD, MD Work Phone: [facility] 02-02-2023 14:23-0400 Heart rate 72 /min Joy Barry MD, MD Work Phone: [facility] 02-02-2023 14:23-0400 Respiratory rate 15 /min Joy Barry MD, MD Work Phone: [facility] 02-02-2023 14:23-0400 SaO2% (BldA) [Mass fraction] 97 % Joy Barry MD, MD Work Phone: [facility] 02-02-2023 14:23-0400 Systolic blood pressure 155 mm[Hg] Joy Barry MD, MD Work Phone: [facility] 02-02-2023 13:32-0400 Body height 154.5 cm Bobby Masci DO Work Phone: [facility] 02-02-2023 13:32-0400 Body temperature 98.01 [degF] Bobby Masci DO Work Phone: [facility] 02-02-2023 13:32-0400 Body weight 78.02 kg Bobby Masci DO Work Phone: [facility] 02-02-2023 13:32-0400 Diastolic blood pressure 83 mm[Hg] Bobby Masci DO Work Phone: [facility] 02-02-2023 13:32-0400 Heart rate 72 /min Bobby Masci DO Work Phone: [facility] 02-02-2023 13:32-0400 SaO2% (BldA) [Mass fraction] 97 % Bobby Masci DO Work Phone: [facility] 02-02-2023 13:32-0400 Systolic blood pressure 155 mm[Hg] Bobby Masci DO Work Phone: [facility] 01-05-2023 16:12-0400 Diastolic blood pressure 82 mm[Hg] Pacc 2 Work Phone: [facility] 01-05-2023 16:12-0400 Systolic blood pressure 155 mm[Hg] Pacc 2 Work Phone: [facility] 01-05-2023 14:25-0400 Body height 154.9 cm Pacc 2 Work Phone: [facility] 01-05-2023 14:25-0400 Body temperature 97.81 [degF] Pacc 2 Work Phone: [facility] 01-05-2023 14:25-0400 Body weight 78.56 kg Pacc 2 Work Phone: [facility] 01-05-2023 14:25-0400 Heart rate 70 /min Pacc 2 Work Phone: [facility] 01-05-2023 14:25-0400 Respiratory rate 16 /min Pacc 2 Work Phone: [facility] 01-05-2023 14:25-0400 SaO2% (BldA) [Mass fraction] 97 % Pacc 2 Work Phone: [facility] 12-22-2022 13:53-0400 Body temperature 98.1 [degF] Samuel Dinh MD Work Phone: [facility] 12-22-2022 13:53-0400 Body weight 78.02 kg Samuel Dinh MD Work Phone: [facility] 12-22-2022 13:53-0400 Diastolic blood pressure 65 mm[Hg] Samuel Dinh MD Work Phone: [facility] 12-22-2022 13:53-0400 Heart rate 81 /min Samuel Dinh MD Work Phone: [facility] 12-22-2022 13:53-0400 SaO2% (BldA) [Mass fraction] 97 % Samuel Dinh MD Work Phone: [facility] 12-22-2022 13:53-0400 Systolic blood pressure 167 mm[Hg] Samuel Dinh MD Work Phone: [facility] 12-22-2022 10:41-0400 Body height 154.9 cm Micki Parkinson DO Work Phone: [facility] 12-22-2022 10:41-0400 Body weight 78.02 kg Micki Parkinson DO Work Phone: [facility] Encounters Encounter Date Encounter Type Care Provider Facility Start: 05-10-2023 End: 05-10-2023 [facility]ulatory [facility] Start: 04-26-2023 End: 04-26-2023 ambulatory Joy Barry MD Work Phone: Radiation Oncology Procedures Date Procedure Procedure Detail Performing Clinician Start: 01-05-2023 Ecg routine ecg w/le ast 12 lds i&r only Suleman Monzon SYSTEMS ENGINEER.FITNESS AND WELLNESS DIRECTOR Work Phone: Start: 04-21-2011 Mammography Simba merlos Work Phone: Plan of Treatment Date Care Activity Detail Author Start: 03-20-2024 BP Controlled (<130/80) BP Con trolled (<130/80) [facility] Start: 02-08-2024 BP Controlled (<130/80) BP Con trolled (<130/80) [facility] Start: 07-08-2023 Hemoglobin A1c measurement HbA1C [facility] Start: 07-08-2023 Hemoglobin A1c/Hemoglobin.total in Blood HBA1C [facility] Start: 04-02-2023 End: 07-02-2023 Basic metabolic 2000 panel - Serum or Plasma BASIC METABOLIC PNL Lab STAT Malignant neoplasm of upper-inner quadrant of right breast in female, estrogen receptor positive (HCC) Expected: 04/02/2023, Expires: 07/02/[address] [facility] Work Phone: Immunizations Immunization Date Immunization Notes Care Provider Fa cility 02-11-2022 influenza virus vacc ine, unspecified formulation Mickiag Parkinson DO Work Phone: [facility] 07-26-2010 pneumococcal polysaccharide vaccine, 23 valradha Broussard Work Phone: [facility] Payers Date Payer Category Payer Medicare [id number] 2018 Unknown JOANNE RUBIO ME DICARE SUPPLEMENT [id number] 2018-Present [phone] [address] [place] [address] Indemnity [id number] 2011 Unknown PRIMETIME PRIMET NORMA HMO POS [id number] 2011-Present HMO [id number] 2010 Medicare MEDICARE MEDICAR E A AND B [id number] 2010-Present [phone] [address] [address] [place] [address] Medicare [id number] 2010 Medicare [id number] Social History Date Type Detail Facility Start: 06-06-2012 End: 12-22-2022 Tobacco smoking status NHIS Former smoker [facility] End: 05-14-1980 History of tobacco use Current smoker [facility] Start: 06-06-2012 End: 12-22-2022 Tobacco use and exposure [facility] Start: 06-06-2012 End: 02-02-2023 Alcohol intake Current drinker of alcohol (finding) [facility] Start: 04-21-2011 Alcohol [facility] Start: 1945 Sex Assigned At Not on file C [facility] End: 05-14-1980 History of tobacco use Cigarette Smoker [facility] Start: 12-28-2021 End: 12-22-2022 History of Social function [facility] Start: 12-28-2021 End: 12-22-2022 Tobacco use panel [facility] National Score (1-10 0), lower number is lower risk 62 [facility] Clinical Notes 09-21-2010 to 05-10-2023 Joy Barry MD, MD - 04/26/2023 1:22 PM ESTTelephone Encounter - Jesica Triplett - 04/20/2023 2:29 PM ESTTelephone Encounter - Susan Wilkinson APRN.CNP - 04/20/2023 1:11 PM ESTPatient Instructions Note Date & Type Note Facility 05-10-2023 Note HNO ID: [id number] Author: Joy Barry MD, Service: ? 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 It's ER positive (>90%, strong), HI positive (40%, weak to moderate) and Her2 2+ and FISH negative. s/p radiation treatment finished on 03/30/23. She is on Arimidex. INTERVAL HISTORY: She is doing well without any specific new complaints. She reports that discomfort over the right chest wall is improving much. ALLERGIES No Known Allergies MEDICATIONS: anastrozole (ARIMIDEX) 1 mg tablet Take 1 tablet by mouth once daily. DULoxetine (CYMBALTA) 30 mg capsule Take 30 mg by mouth once daily. for neuropathy cyanocobalamin (VITAMIN B-12) 1,000 mcg tab Take 2,000 mcg by mouth once daily. Ibuprofen 200 mg cap Take 200 mg by mouth every 6 hours as needed for pain. rosuvastatin (CRESTOR) 20 mg tablet Take 1 tablet by mouth once daily. levothyroxine (SYNTHROID) 150 mcg tablet Take 1 tablet by mouth once daily. olmesartan (BENICAR) 40 mg tablet Take 40 mg by mouth once daily. Pregabalin (LYRICA) 200 mg capsule Take 200 mg by mouth twice daily. metFORMIN ER (GLUCOPHAGE XR) 500 mg 24 hr tablet Take 4 tablets by mouth daily at bedtime. HUMALOG KWIKPEN INSULIN 200 unit/mL (3 mL) injection insulin glargine U-300 conc (TOUJEO SOLOSTAR U-300 INSULIN) 300 unit/mL (1.5 mL) INJECT 70 UNITS SUBCUTANEOUSLY AT BEDTIME cholecalciferol, vitamin D3, (D3-2000 ORAL) diphenhydrAMINE (BENADRYL) 25 mg capsule Take by mouth. Magnesium 200 mg tab Take 400 mg by mouth once daily. 4 tablets daily VITAMIN B COMPLEX ORAL Take by mouth once daily. hydrocortisone 2.5 % lotion Apply to affected spots and/or area(s) of rash or irritated skin or flared Acne Rosacea on face and neck selectively qday to bid until clear as directed and tolerated. AVOID eyes and eyelids. NB: Needs 3-month supply. PHYSICAL EXAM: VS: BP 161/81 Pulse 80 Temp 36.3 ?C (97.4 ?F) (Temporal) Resp 16 Wt 77.1 kg (170 lb) BMI 32.30 kg/m? KPS: 90 General Appearance: Alert and oriented. No acute distress. Right chest wall skin with mild hyperpigmentation. No desquamation. ASSESSMENT AND PLAN: She is recovering well from acute radiation dermatitis. She is on Arimidex and is followed with medical oncology regularly. I will see her as needed. Signed by: Joy Barry MD cc: Benny Bosch MD [address] [place] [address] [facility] 04-26-2023 Note HNO ID: [id number] Author: Joy Barry MD, MD Service: ? Author Type: Physician Type: Progress Notes Filed: 04/26/2023 1:36 PM Note Text: AMBULATORY TELEPHONE VISIT Suleiman Ramsey has consented to this telephone encounter. Persons Present: patient Chief Complaint/Reason: Four week follow-up after radiation treatment. 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 It's ER positive (>90%, strong), HI positive (40%, weak to moderate) and Her2 2+ and FISH negative. s/p radiation treatment finished on 03/30/23. She reports that she continues to have discomfort in the right chest wall. Redness is improving. No skin breakdown. Data Reviewed: None. Assessment: She is recovering slowly from acute radiation dermatitis. Plan: Continue skin care. I will see her in two weeks for a follow-up. Total Time Spent: 5 minutes Joy Barry MD [facility] 04-26-2023 History of Present illness Narrative AMBULATORY TELEPHONE VISIT Suleiman Ramsey has consented to this telephone encounter. Persons Present: patient Chief Complaint/Reason: Four week follow-up after radiation treatment. 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 It's ER positive (>90%, strong), HI positive (40%, weak to moderate) and Her2 2+ and FISH negative. s/p radiation treatment finished on 03/30/23. She reports that she continues to have discomfort in the right chest wall. Redness is improving. No skin breakdown. Data Reviewed: None. Assessment: She is recovering slowly from acute radiation dermatitis. Plan: Continue skin care. I will see her in two weeks for a follow-up. Total Time Spent: 5 minutes Joy Barry MD documented in this encounter [facility] 04-20-2023 Note HNO ID: [id number] Author: Karen Briones RN Service: ? Author Type: Registered Nurse Type: Progress Notes Filed: 04/20/2023 1:52 PM Note Text: CASE [id number] ([id number]): Tissue and Body Fluid Analysis from Patients with Cancer and Other Risk- Associated Lesions Patient seen in clinic for informed consent of the above mentioned protocol. Patient agrees to participate in the above mentioned research study. The patient has signed a copy of the informed consent. Patient has contact information for the study team and Dr. Bobby Chowdhury D.O. . See consent note in Epic. Patient ineligible for a research blood draw. Karen Briones RN [facility] 04-20-2023 Miscellaneous Notes Please update orders as they are still Q3MO Please advise if Next treatment on 06/27/23 should stay as scheduled or should be pushed out. Please see my chart message. Plan for zometa every 6 months with BMP x6 doses. Pt. has already received one dose. Please update schedule. Thank you. Susan Wilkinson APRN.WHIT documented in this encounter [facility] 04-20-2023 History of Present illness Narrative CASE [id number] ([id number]): Tissue and Body Fluid Analysis from Patients with Cancer and Other Risk- Associated Lesions Patient seen in clinic for informed consent of the above mentioned protocol. Patient agrees to participate in the above mentioned research study. The patient has signed a copy of the informed consent. Patient has contact information for the study team and Dr. Bobby Chowdhury D.O. . See consent note in Epic. Patient ineligible for a research blood draw. Karen Briones RN documented in this encounter [facility] 04-20-2023 Note HNO ID: [id number] Author: Susan Wilkinson APRN.WHIT Service: ? Author Type: Nurse Practitioner Type: Progress Notes Filed: 04/20/2023 12:23 PM Note Text: Chief Complaint Patient presents with: Established Patient HPI: Suleiman Ramsey is a 77 year old female who presents here today for SCP/breast cancer. Per Dr. Chowdhury's previous note: H/o hypertension, left bundle branch block, hypercholesterolemia, hypothyroidism, diabetes, atrophic vaginitis and rosacea. Patient noted a mass in her right breast approximately 6 months prior to presentation. She was seen by her equipment operating engineer to confirm the presence of a mass. She underwent a bilateral diagnostic mammogram with a right-sided ultrasound at [facility] 11/10/2022. The ultrasound demonstrated that the palpable mass corresponded to a conglomeration of multiple hypoechoic spiculated irregular nodular densities at the 1 o'clock position of the breast 11 cm from the nipple. Largest measured 1 x 2.7 x 1.4 cm. Patient had a core needle biopsy under ultrasound guidance on 11/15/2022. 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 ER (clone 6F11) >95% , strong HI (clone 16/1E2) 80%, weak to moderate Her-2Neu (clone CB11) 1 - 2+ (equivocal) Patient had a CT of the chest, abdomen pelvis on 11/29/2022 at [facility]. There was a group of nodular soft tissue densities in the right breast. Small postbiopsy microclip was visualized. There was no findings suggestive of metastatic disease in the chest, abdomen pelvis. There is old calcified granulomatous disease with subcarinal adenopathy. Stable, bulbous appearance of the uterus was also observed. Clinical suspicion for fibroid. Stable, extensive degenerative changes in the spine were also observed. Patient had an ultrasound of the right axilla. That study on 11/29/2022 demonstrated 2 benign appearing lymph nodes within the fatty tissues of the axilla. The largest measured 10.6 x 6.1 x 7.33 mm. There was significant fatty replacement. The second was smaller. The impression was no sonographic evidence of suspicious right axillary adenopathy or mass. The patient also had a bone scan on 12/04/2022 at [facility]. That study demonstrated increased uptake in the left anterior lateral fifth and sixth ribs consistent with trauma/fracture. There was no definite scintigraphic evidence of diffuse skeletal metastatic disease. Repeat US 12/22/2022: There is a 2.9 cm x 2.5 cm x 2 cm oval area in the right breast at 11 o'clock middle depth 6 cm from the nipple. This oval area is of mixed echogenicity. This correlates with mammography findings. No significant abnormalities were seen sonographically in the right axilla. Ultrasound evaluation of the right breast demonstrates a conglomeration of masses with irregular and angular borders at the 12 o'clock position 7 cm from the nipple. This is all palpable to the patient. The area measures at least 4.6 x 2.4 x 3.2 cm. In addition in evaluating the upper outer quadrant there are other numerous hypoechoic highly suspicious subcentimeter masses extending until the 2 to 3 o'clock position. The larger masses measure as follow; 2 o'clock position 10 cm from the nipple is a hypoechoic solid mass in the posterior aspect measuring 1.2 x 1.3 x 1.2 cm. This is highly suspicious for an additional satellite lesion. Ultrasound-guided biopsy can be performed if surgically indicated. 2:00 6 cm from the nipple is a hypoechoic lobulated irregular solid suspicious mass measuring 0.8 x 0.7 x 0.7 cm. The 2.9 cm x 2.5 cm x 2 cm oval area in the right breast most likely is fibroglandular tissue or a fibrous ridge and is at a low suspicion for malignancy. A surgical consult is recommended Patient underwent right simple mastectomy along with axillary sentinel lymph node biopsy on 01/09/2023. Pathology: A. Right breast, mastectomy: - Invasive ductal carcinoma, see synoptic report. - Ductal carcinoma in situ, solid and cribriform type, nuclear grade 3, with comedonecrosis. - Biopsy clip identified. B. Right breast, superior radial margin, excision: - Unremarkable fibroadipose tissue and skeletal muscle. C. Right sentinel lymph node, excision: - Two lymph nodes, negative for metastatic carcinoma (0/2). D.Right breast, lateral skin margin, excision: - Unremarkable skin and underlying tissue. SPECIMEN Procedure Total mastectomy Specimen Laterality Right TUMOR Tumor Site Upper outer quadrant Upper inner quadrant Histologic Type Invasive carcinoma of no special type (ductal) Histologic Grade (Dean Histologic Score) Glandular (Acinar) / Tubular Differentiation Score 3 Nuclear Pleomorphism Score 2 Mitotic Rate Score 2 Overall Grade Grade 3 (scores of 8 or 9) Tumor Size Greatest dimension of largest invasive focus (Millimeters): 70 mm Ductal Carcinoma In Situ (DCIS) Present Architectural Patterns Cribriform Solid Nuclear Grade Grade III (high) (more content not included)... [facility] 04-20-2023 History of Present illness Narrative Chief Complaint Patient presents with: Established Patient HPI: Suleiman Ramsey is a 77 year old female who presents here today for SCP/breast cancer. Per Dr. Chowdhury's previous note: H/o hypertension, left bundle branch block, hypercholesterolemia, hypothyroidism, diabetes, atrophic vaginitis and rosacea. Patient noted a mass in her right breast approximately 6 months prior to presentation. She was seen by her equipment operating engineer to confirm the presence of a mass. She underwent a bilateral diagnostic mammogram with a right-sided ultrasound at [facility] 11/10/2022. The ultrasound demonstrated that the palpable mass corresponded to a conglomeration of multiple hypoechoic spiculated irregular nodular densities at the 1 o'clock position of the breast 11 cm from the nipple. Largest measured 1 x 2.7 x 1.4 cm. Patient had a core needle biopsy under ultrasound guidance on 11/15/2022. 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 ER (clone 6F11) >95% , strong HI (clone 16/1E2) 80%, weak to moderate Her-2Neu (clone CB11) 1 - 2+ (equivocal) Patient had a CT of the chest, abdomen pelvis on 11/29/2022 at [facility]. There was a group of nodular soft tissue densities in the right breast. Small postbiopsy microclip was visualized. There was no findings suggestive of metastatic disease in the chest, abdomen pelvis. There is old calcified granulomatous disease with subcarinal adenopathy. Stable, bulbous appearance of the uterus was also observed. Clinical suspicion for fibroid. Stable, extensive degenerative changes in the spine were also observed. Patient had an ultrasound of the right axilla. That study on 11/29/2022 demonstrated 2 benign appearing lymph nodes within the fatty tissues of the axilla. The largest measured 10.6 x 6.1 x 7.33 mm. There was significant fatty replacement. The second was smaller. The impression was no sonographic evidence of suspicious right axillary adenopathy or mass. The patient also had a bone scan on 12/04/2022 at [facility]. That study demonstrated increased uptake in the left anterior lateral fifth and sixth ribs consistent with trauma/fracture. There was no definite scintigraphic evidence of diffuse skeletal metastatic disease. Repeat US 12/22/2022: There is a 2.9 cm x 2.5 cm x 2 cm oval area in the right breast at 11 o'clock middle depth 6 cm from the nipple. This oval area is of mixed echogenicity. This correlates with mammography findings. No significant abnormalities were seen sonographically in the right axilla. Ultrasound evaluation of the right breast demonstrates a conglomeration of masses with irregular and angular borders at the 12 o'clock position 7 cm from the nipple. This is all palpable to the patient. The area measures at least 4.6 x 2.4 x 3.2 cm. In addition in evaluating the upper outer quadrant there are other numerous hypoechoic highly suspicious subcentimeter masses extending until the 2 to 3 o'clock position. The larger masses measure as follow; 2 o'clock position 10 cm from the nipple is a hypoechoic solid mass in the posterior aspect measuring 1.2 x 1.3 x 1.2 cm. This is highly suspicious for an additional satellite lesion. Ultrasound-guided biopsy can be performed if surgically indicated. 2:00 6 cm from the nipple is a hypoechoic lobulated irregular solid suspicious mass measuring 0.8 x 0.7 x 0.7 cm. The 2.9 cm x 2.5 cm x 2 cm oval area in the right breast most likely is fibroglandular tissue or a fibrous ridge and is at a low suspicion for malignancy. A surgical consult is recommended Patient underwent right simple mastectomy along with axillary sentinel lymph node biopsy on 01/09/2023. Pathology: A. Right breast, mastectomy: - Invasive ductal carcinoma, see synoptic report. - Ductal carcinoma in situ, solid and cribriform type, nuclear grade 3, with comedonecrosis. - Biopsy clip identified. B. Right breast, superior radial margin, excision: - Unremarkable fibroadipose tissue and skeletal muscle. C. Right sentinel lymph node, excision: - Two lymph nodes, negative for metastatic carcinoma (0/2). D.Right breast, lateral skin margin, excision: - Unremarkable skin and underlying tissue. SPECIMEN Procedure Total mastectomy Specimen Laterality Right TUMOR Tumor Site Upper outer quadrant Upper inner quadrant Histologic Type Invasive carcinoma of no special type (ductal) Histologic Grade (Dean Histologic Score) Glandular (Acinar) / Tubular Differentiation Score 3 Nuclear Pleomorphism Score 2 Mitotic Rate Score 2 Overall Grade Grade 3 (scores of 8 or 9) Tumor Size Greatest dimension of largest invasive focus (Millimeters): 70 mm Ductal Carcinoma In Situ (DCIS) Present Architectural Patterns Cribriform Solid Nuclear Grade Grade III (high) Lymphatic and / or Vascular Invasion Not identified Treatment Effect in the Breast No known presurgical therapy MARGINS Margin Status for Invasive Carcinoma All margins negative for invasive carcinoma Distance from Invasive Carcinoma to Closest Margin Greater than: 7 mm Closest Margin(s) to Invasive Carcinoma Superior radial Margin Status for DCIS All margins negative for DCIS Distance from DCIS to Closest Margin Greater than: 5 mm REGIONAL LYMPH NODES Regional Lymph Node Status All regional lymph nodes negative for tumor Total Number of Lymph Nodes Examined (sentinel and non-sentinel) 2 Number of Gunpowder Nodes Examined 2 pTNM CLASSIFICATION (AJCC 8th Edition) Reporting of pT, pN, and (when applicable) pM categories is based on information available to the pathologist at the time the report is issued. As per the AJCC (Chapter 1, 8th Ed.) it is the managing physician s responsibility to establish the final pathologic stage based upon all pertinent information, including but potentially not limited to this pathology report. pT Category pT3 pN Category pN0 N Suffix (sn) SPECIAL STUDIES Estrogen Receptor (ER) Status Positive (greater than 10% of cells demonstrate nuclear positivity) Percentage of Cells with Nuclear Positivity 90 % Progesterone Receptor (PgR) Status Positive Percentage of Cells with Nuclear Positivity 40 % HER2 (by immunohistochemistry) Equivocal (Score 2+) Percentage of Cells with Uniform Intense Complete Membrane Staining Cannot be determined HER2 (by in situ hybridization) Negative (not amplified) RADIATION: 02/26/23 - 03/30/23 Current therapy: Zometa first dose 04/03/23 Pt. here today with her daughter. Appetite: Disgustingly good. Energy level: I'm tired a lot. Denies fevers or recent illness. 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 Past medical history, appointments, medications, allergies reviewed. No changes. EXAM: BP 147/84 Pulse 81 Temp 36.4 C (97.6 F) Wt 76.7 kg (169 lb) BMI 32.11 kg/m APPEARANCE Well appearing, alert, in no acute distress, well-hydrated, well nourished. HEART RRR with normal S1 and S2, no murmurs LUNG clear to auscultation BREAST FEMALE R mastectomy scar, mild radiation erythema LYMPH NODES No cervical lymphadenopathy, No supraclavicular lymphadenopathy, and No axillary lymphadenopathy. ABDOMEN bowel sounds normoactive, soft, non-tender EXTREMITIES No edema NEURO Awake, alert and oriented x 3, Normal gait, and No involuntary motions. SKIN Skin color, texture, turgor normal, no suspicious rashes or lesions ASSESSMENT/PLAN: 1. Malignant neoplasm of upper-inner quadrant of right breast in female, estrogen receptor positive (HCC) - ICD9: 174.2, V86.0, ICD10: C50.211, Z17.0 pT3 pN0 M0 grade 3 ER/HI positive, HER2 nonamplified pathologic stage IIA invasive ductal carcinoma of the right breast. Based on her age, comorbid conditions and functional status, not a candidate for adjuvant chemotherapy. - Tolerated radiation well overall. - Discussed Arimidex and potential side effects. Hand-out given. Rx sent. - Reviewed SCP with pt. Copies given. - Discussed follow up plan. - Continue zometa. - Follow up in 3 months. - Pt. aware to call office with any question/concerns. The patient indicates understanding of these issues and agrees with the plan. All documentation from previous visit of 02/02/23-Dr. Chowdhury was copied and pasted, documentation has been reviewed and edited as necessary for today's visit. Susan Wilkinson APRN.FITNESS AND WELLNESS DIRECTOR documented in this encounter [facility] 04-20-2023 Nurse Note Est. Pt, discuss SCP Tatiana Cross LPN documented in this encounter [facility] 04-02-2023 Miscellaneous Notes Dental clearance received from [facility] and sent to scanning. Patient is aware to come for appointment tomorrow. María Severino LPN I called and spoke to patient and scheduled her for an SCP visit with Susan on 04/20/2023 at 11:00 am, patient confirmed this date and time. She had questions about why the dental clearance was needed to start Zometa tomorrow and I let her know the answer via a messaging conversation with the nurse. Patient stated understanding and will plan to be here tomorrow at 9:30 am unless she hears something else from us today Shereen Leblanc Pss PSS- please reschedule today's missed OV to a SCP OV with Susan AFTER radiation is completed. Patient came in today and had labs, missed OV with Dr. Chowdhury. Patient is scheduled for Zometa tomorrow but does not have dental clearance. I spoke with the patient and she did have a dental cleaning last month at [facility]. Their fax machine is down so I emailed a dental clearance form to their office. Will leave appointment as scheduled and await clearance form. María Severino LPN documented in this encounter [facility] 03-30-2023 Note HNO ID: [id number] Author: Joy Barry MD, MD Service: Radiation Oncology Author Type: Physician Type: Progress Notes Filed: 04/04/2023 12:34 AM Note Text: SULEIMAN RAMSEY [id number] : 1945 03/30/2023 [facility] Department of Radiation Oncology RADIATION ONCOLOGY - COMPLETION NOTE DATE OF SIMULATION: 02/22/23 DATES OF TREATMENT: 02/26/23 - 03/30/23 UNIT: W_TRUEBEAM AREA TREATED: Right chest wall/internal mammary region/SC/axilla DISEASE: Stage IIA, pT3 pN0 (sn), grade 3 invasive ductal carcinoma of the right breast s/p right mastectomy and sentinel node biopsy on 01/09/23. It's ER positive (>90%, strong), HI positive (40%, weak to moderate) and Her2 2+ and FISH negative. DELIVERED DOSE: 5000 cGy in 25 fractions treating to the 100,95% isodose line with 6,10,15 MV and 5 segmented mccollum. ELAPSED TIME: 32 days. TOLERANCE/ RESPONSE: Right chest wall mild erythema. No desquamation. REMARKS: She tolerated radiation treatment well. Four week follow-up with me. Staff Physician JOY BARRY M.D. / 0:42 AM Electronically Signed cc: MD Edna Lomax [address] [place] [address] Bobby Duarte Radhamadelin Mickiag Parkinson [facility] 03-30-2023 Note Education (MAUREEN) SULEIMAN RAMSEY ([id number]) 1945 F Date Time Provider Department 03/30/23 JOY BARRY MD Reason for Visit: Patient Education [91] Visit Notes: >> Elizabeth Villalta RN SunMar 30, 2023 10:12 AM Status: Signed Written discharge instructions given and reviewed with patient. Patient verbalizes understanding. Encouraged to call with any questions or concerns. Instruction for 4 week phone call follow up appointment given by Dr. Barry. During your visit today, we recorded the following information about you: Allergies As of Date: 03/30/2023 (No Known Allergies) Date Reviewed: 03/18/2023 Reviewed by: Brittany Olvera RD - Fully Assessed Prescriptions as of 03/30/2023 - DULoxetine (CYMBALTA) 30 mg capsule Take 30 mg by mouth once daily. for neuropathy - HYDROcodone-acetaminophen (NORCO) 5-325 mg per tablet Take 1 tablet by mouth every 8 hours as needed for pain. - cyanocobalamin (VITAMIN B-12) 1,000 mcg tab Take 2,000 mcg by mouth once daily. - Ibuprofen 200 mg cap Take 200 mg by mouth every 6 hours as needed for pain. - rosuvastatin (CRESTOR) 20 mg tablet Take 1 tablet by mouth once daily. - levothyroxine (SYNTHROID) 150 mcg tablet Take 1 tablet by mouth once daily. - olmesartan (BENICAR) 40 mg tablet Take 40 mg by mouth once daily. - Pregabalin (LYRICA) 200 mg capsule Take 200 mg by mouth twice daily. - metFORMIN ER (GLUCOPHAGE XR) 500 mg 24 hr tablet Take 4 tablets by mouth daily at bedtime. - insulin glargine,hum.rec.anlog (TOUJEO SOLOSTAR U-300 INSULIN SUBCUTANEOUS) - HUMALOG KWIKPEN INSULIN 200 unit/mL (3 mL) injection - insulin glargine U-300 conc (TOUJEO SOLOSTAR U-300 INSULIN) 300 unit/mL (1.5 mL) INJECT 70 UNITS SUBCUTANEOUSLY AT BEDTIME - Alpha Lipoic Acid 100 mg cap Take 1 capsule by mouth twice daily. - cholecalciferol, vitamin D3, (D3-2000 ORAL) - diphenhydrAMINE (BENADRYL) 25 mg capsule Take by mouth. - Magnesium 200 mg tab Take 400 mg by mouth once daily. 4 tablets daily - VITAMIN B COMPLEX ORAL Take by mouth once daily. - metroNIDAZOLE (METROGEL) 1 % gel .Apply to entire affected area(s) of rosacea on face QDay as directed and can increase up to bid prn flaring or as needed and tolerated. - tretinoin (RETIN-A) 0.025 % topical cream Apply thin layer to face at entire sun-damaged skin area(s) every other day (qoday) up to once per day (qday) as directed and tolerated in the evening (1/2 hr after washing and at least 1/2 hr before bedtime) and wash off face in the AM before going outside. Beware of potential excess sun sensitivity, use sun protection. - hydrocortisone 2.5 % lotion Apply to affected spots and/or area(s) of rash or irritated skin or flared Acne Rosacea on face and neck selectively qday to bid until clear as directed and tolerated. AVOID eyes and eyelids. NB: Needs 3-month supply. Encounter Status:Closed by ELIZABETH VILLALTA on 03/30/23 [facility] 03-30-2023 Nurse Note Written discharge instructions given and reviewed with patient. Patient verbalizes understanding. Encouraged to call with any questions or concerns. Instruction for 4 week phone call follow up appointment given by Dr. Barry. documented in this encounter [facility] 03-30-2023 History of Present illness Narrative SULEIMAN RAMSEY [id number] : 1945 03/30/2023 [facility] Department of Radiation Oncology RADIATION ONCOLOGY - COMPLETION NOTE DATE OF SIMULATION: 02/22/23 DATES OF TREATMENT: 02/26/23 - 03/30/23 UNIT: W_TRUEBEAM AREA TREATED: Right chest wall/internal mammary region/SC/axilla DISEASE: Stage IIA, pT3 pN0 (sn), grade 3 invasive ductal carcinoma of the right breast s/p right mastectomy and sentinel node biopsy on 01/09/23. It's ER positive (>90%, strong), HI positive (40%, weak to moderate) and Her2 2+ and FISH negative. DELIVERED DOSE: 5000 cGy in 25 fractions treating to the 100,95% isodose line with 6,10,15 MV and 5 segmented mccollum. ELAPSED TIME: 32 days. TOLERANCE/ RESPONSE: Right chest wall mild erythema. No desquamation. REMARKS: She tolerated radiation treatment well. Four week follow-up with me. Staff Physician JOY BARRY M.D. / 310:42 AM Electronically Signed cc: [place] [address] Bobby Parkinson documented in this encounter [facility] 03-27-2023 Note HNO ID: [id number] Author: Joy Barry MD, MD Service: ? Author Type: Physician Type: Progress Notes Filed: 03/27/2023 10:23 AM Note Text: Radiation Oncology - On Treatment Review (OTR) Note PATIENT NAME: Suleiman Ramsey PATIENT DIAGNOSIS: Stage IIA, pT3 pN0 (sn), grade 3 invasive ductal carcinoma of the right breast s/p right mastectomy and sentinel node biopsy on 01/09/23. It's ER positive (>90%, strong), HI positive (40%, weak to moderate) and Her2 2+ and FISH negative. COURSE: post-operative AREA TREATED: Right chest wall/SC/IM/axilla CURRENT DOSE: 4400 cGy in 22 fx PLANNED DOSE: 5000 cGy in 25 fx Status: Post-menopausal SUBJECTIVE: She is doing well without any specific new complaints. EXAM: KPS: 90 General Appearance: Alert and oriented. No acute distress. Right chest wall mild erythema. No desquamation. IMAGING/LAB RESULTS: None Treatment chart checked: Yes Patient treatment site reviewed and verified:Yes Port films reviewed and current:Yes Medications started: Hydrocortisone cream as needed. ASSESSMENT/PLAN: Clinically stable. Toxicity within expected parameters. Continue radiation treatment as planned. Joy Barry MD [facility] 03-27-2023 Nurse Note Radiation Therapy - Nursing Note (OTV) PATIENT NAME: Suleiman Ramsey PATIENT March 27, 2023 [facility]LOCATION: [facility] NURSING NOTE TYPE: BREAST Subjective Data no new complaints Additional Data Do you want to see a Pharmacy Services Director? No Status: Post-menopausal. Stress Scale: On a scale of 0 to 10, what number best describes how much distress you have experienced in the past week?(0 being no distress and 10 being extreme distress) 4 Social work notified: Pt denied need to see social science manager at this time. Nursing Assessment Fatigue: had a lot befroe treatment but does not think it has increased Appetite: good Nutritional Intake: Regular oral intake. Weight Gain/Loss: No Ambulatory weight history: Last 6 Encounter Wt Readings: Date: Wt: 02/02/2023 78 kg (172 lb) 02/02/2023 78 kg (172 lb) 01/05/2023 78.6 kg (173 lb 3.2 oz) 12/26/2022 79.3 kg (174 lb 14.4 oz) 12/22/2022 78 kg (172 lb) 12/22/2022 78 kg (172 lb) Nausea:None Vomiting: None Bowel Function: normal bowel movements Erythema/Hyperpigmentation:mild along incision line and SC area Desquamation:none Rash:mild Skin Care: Aquaphor and Other: advised cortaid for rash area Skin Sensation: mild burning Focused Assessment BREAST: Lymphedema Assessment: Is the patient noting any swelling? No. SIGNED by: Elizabeth Villalta RN documented in this encounter [facility] 03-27-2023 History of Present illness Narrative Radiation Oncology - On Treatment Review (OTR) Note PATIENT NAME: Suleiman Ramsey PATIENT DIAGNOSIS: Stage IIA, pT3 pN0 (sn), grade 3 invasive ductal carcinoma of the right breast s/p right mastectomy and sentinel node biopsy on 01/09/23. It's ER positive (>90%, strong), HI positive (40%, weak to moderate) and Her2 2+ and FISH negative. COURSE: post-operative AREA TREATED: Right chest wall/SC/IM/axilla CURRENT DOSE: 4400 cGy in 22 fx PLANNED DOSE: 5000 cGy in 25 fx Status: Post-menopausal SUBJECTIVE: She is doing well without any specific new complaints. EXAM: KPS: 90 General Appearance: Alert and oriented. No acute distress. Right chest wall mild erythema. No desquamation. IMAGING/LAB RESULTS: None Treatment chart checked: Yes Patient treatment site reviewed and verified:Yes Port films reviewed and current:Yes Medications started: Hydrocortisone cream as needed. ASSESSMENT/PLAN: Clinically stable. Toxicity within expected parameters. Continue radiation treatment as planned. Joy Barry MD documented in this encounter [facility] 03-20-2023 Note HNO ID: [id number] Author: Joy Barry MD, MD Service: ? Author Type: Physician Type: Progress Notes Filed: 03/20/2023 10:46 AM Note Text: Radiation Oncology - On Treatment Review (OTR) Note PATIENT NAME: Suleiman Ramsey PATIENT DIAGNOSIS: Stage IIA, pT3 pN0 (sn), grade 3 invasive ductal carcinoma of the right breast s/p right mastectomy and sentinel node biopsy on 01/09/23. It's ER positive (>90%, strong), HI positive (40%, weak to moderate) and Her2 2+ and FISH negative. COURSE: post-operative AREA TREATED: Right chest wall/SC/IM/axilla CURRENT DOSE: 3400 cGy in 17 fx PLANNED DOSE: 5000 cGy in 25 fx Status: Post-menopausal SUBJECTIVE: She has mild soreness in the right medial axilla. EXAM: KPS: 90 General Appearance: Alert and oriented. No acute distress. Right chest wall mild erythema. No desquamation. IMAGING/LAB RESULTS: None Treatment chart checked: Yes Patient treatment site reviewed and verified:Yes Port films reviewed and current:Yes Medications started: Tylenol as needed. ASSESSMENT/PLAN: Clinically stable. Toxicity within expected parameters. Continue radiation treatment as planned. 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 It's ER positive (>90%, strong), HI positive (40%, weak to moderate) and Her2 2+ and FISH negative. COURSE: post-operative AREA TREATED: Right chest wall/SC/IM/axilla CURRENT DOSE: 3400 cGy in 17 fx PLANNED DOSE: 5000 cGy in 25 fx Status: Post-menopausal SUBJECTIVE: She has mild soreness in the right medial axilla. EXAM: KPS: 90 General Appearance: Alert and oriented. No acute distress. Right chest wall mild erythema. No desquamation. IMAGING/LAB RESULTS: None Treatment chart checked: Yes Patient treatment site reviewed and verified:Yes Port films reviewed and current:Yes Medications started: Tylenol as needed. ASSESSMENT/PLAN: Clinically stable. Toxicity within expected parameters. Continue radiation treatment as planned. Joy Barry MD documented in this encounter [facility] 03-20-2023 Nurse Note Radiation Therapy - Nursing Note (OTV) PATIENT NAME: Suleiman Ramsey PATIENT March 20, 2023 [facility]LOC[facility]: [place] NURSING NOTE TYPE: BREAST Subjective Data c/o some irritation in upper axiliary region thinks it is from bra she wears Additional Data Do you want to see a Pharmacy Services Director? No Status: Post-menopausal. Stress Scale: On a scale of 0 to 10, what number best describes how much distress you have experienced in the past week?(0 being no distress and 10 being extreme distress) 4 Social work notified: Pt denied need to see social science manager at this time. Nursing Assessment Fatigue: moderate; causing difficulty performing some activities Appetite: good Nutritional Intake: Regular oral intake. Weight Gain/Loss: No Ambulatory weight history: Last 6 Encounter Wt Readings: Date: Wt: 02/02/2023 78 kg (172 lb) 02/02/2023 78 kg (172 lb) 01/05/2023 78.6 kg (173 lb 3.2 oz) 12/26/2022 79.3 kg (174 lb 14.4 oz) 12/22/2022 78 kg (172 lb) 12/22/2022 78 kg (172 lb) Nausea:bloating at night around 2-3 am, indigestion, takes rolaids and pepcid as needed Vomiting: None Bowel Function: constipation small one this am, has stool softner but not taking regularly Erythema/Hyperpigmentation:mild Desquamation:none Rash:none Skin Care: Aquaphor Skin Sensation: Within Normal Limits Focused Assessment BREAST: Lymphedema Assessment: Is the patient noting any swelling? No. SIGNED by: Elizabeth Villalta RN documented in this encounter [facility] 03-18-2023 Note HNO ID: [id number] Author: Brittany Olvera RD Service: ? Author Type: Registered Dietitian Type: Progress Notes Filed: 03/18/2023 4:00 PM Note Text: Oncology Nutrition Therapy Progress Note INutrition Intervention: - Aim for 45-60 g carbohydrate meals - Start Glucerna/Masters shake BID between meals - Start 15g carb + protein snack in evening - Eliminate concentrated sweets unless counting toward meal carb count - incorporate lean sources of protein/plant based proteins at meals - Stay well hydrated - sip on fluids throughout the day Nutrition Monitoring AND Evaluation: PO intake Supplement tolerance Wt status Biochemical Markers Skin integrity Plan of care Provided diabetes education on healthy diet. Educated on carb counting, reviewed sample meals, wrote out daily routine. Pt verbalized understanding Educational materials provided: Healthy Food Choices Booklet Need for Follow up: As needed - discussed how to schedule with patient Referred by: Dr. Luciana BEEBE Billing Type: Re-assess/15 min 3 units Billed Time: 45 minutes Signed by: Brittany Olvera RDN, CAROLINE [facility] 03-13-2023 Note Education (KENJI) SULEIMAN RAMSEY ([id number]) 1945 F Date Time Provider Department 03/13/23 11:00 BRITTANY VINSON Reason for Visit: Nutrition Counseling [76] Primary Visit Diagnosis:Malignant neoplasm of upper-inner quadrant of right breast in female, estrogen receptor positive (HCC) [C50.211, Z17.0] During your visit today, we recorded the following information about you: Allergies As of Date: 03/13/2023 (No Known Allergies) Date Reviewed: 03/13/2023 Reviewed by: Elizabeth Villalta, ROBBY - Fully Assessed Prescriptions as of 03/18/2023 - HYDROcodone-acetaminophen (NORCO) 5-325 mg per tablet Take 1 tablet by mouth every 8 hours as needed for pain. - cyanocobalamin (VITAMIN B-12) 1,000 mcg tab Take 2,000 mcg by mouth once daily. - Ibuprofen 200 mg cap Take 200 mg by mouth every 6 hours as needed for pain. - rosuvastatin (CRESTOR) 20 mg tablet Take 1 tablet by mouth once daily. - levothyroxine (SYNTHROID) 150 mcg tablet Take 1 tablet by mouth once daily. - olmesartan (BENICAR) 40 mg tablet Take 40 mg by mouth once daily. - Pregabalin (LYRICA) 200 mg capsule Take 200 mg by mouth twice daily. - metFORMIN ER (GLUCOPHAGE XR) 500 mg 24 hr tablet Take 4 tablets by mouth daily at bedtime. - insulin glargine,hum.rec.anlog (PAUL LUNAAR U-300 INSULIN SUBCUTANEOUS) - HUMALOG KWIKPEN INSULIN 200 unit/mL (3 mL) injection - insulin glargine U-300 conc (TOUJEO SOLOSTAR U-300 INSULIN) 300 unit/mL (1.5 mL) INJECT 70 UNITS SUBCUTANEOUSLY AT BEDTIME - Alpha Lipoic Acid 100 mg cap Take 1 capsule by mouth twice daily. - cholecalciferol, vitamin D3, (D3-2000 ORAL) - diphenhydrAMINE (BENADRYL) 25 mg capsule Take by mouth. - Magnesium 200 mg tab Take 400 mg by mouth once daily. 4 tablets daily - VITAMIN B COMPLEX ORAL Take by mouth once daily. - metroNIDAZOLE (METROGEL) 1 % gel .Apply to entire affected area(s) of rosacea on face QDay as directed and can increase up to bid prn flaring or as needed and tolerated. - tretinoin (RETIN-A) 0.025 % topical cream Apply thin layer to face at entire sun-damaged skin area(s) every other day (qoday) up to once per day (qday) as directed and tolerated in the evening (1/2 hr after washing and at least 1/2 hr before bedtime) and wash off face in the AM before going outside. Beware of potential excess sun sensitivity, use sun protection. - hydrocortisone 2.5 % lotion Apply to affected spots and/or area(s) of rash or irritated skin or flared Acne Rosacea on face and neck selectively qday to bid until clear as directed and tolerated. AVOID eyes and eyelids. NB: Needs 3-month supply. Encounter Status:Closed by BRITTANY OLVERA on 03/18/23 [facility] 03-13-2023 Note HNO ID: [id number] Author: Joy Barry MD, MD Service: ? 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 It's ER positive (>90%, strong), HI positive (40%, weak to moderate) and Her2 2+ and FISH negative. COURSE: post-operative AREA TREATED: Right chest wall/SC/IM/axilla CURRENT DOSE: 2400 cGy in 12 fx PLANNED DOSE: 5000 cGy in 25 fx Status: Post-menopausal SUBJECTIVE: She is doing well without any specific new complaints related to radiation treatment. She feels nodular area in the right lower lateral chest wall. EXAM: KPS: 100 General Appearance: Alert and oriented. No acute distress. Subcutaneous soft nodular area just below lateral edge of the right mastectomy scar likely to be post-mastectomy seroma/hematoma. IMAGING/LAB RESULTS: None Treatment chart checked: Yes Patient treatment site reviewed and verified:Yes Port films reviewed and current:Yes Medications started: None ASSESSMENT/PLAN: Clinically stable. No signs of toxicity. Continue radiation treatment as planned. Joy Barry MD [facility] 03-13-2023 Nurse Note Radiation Therapy - Nursing Note (OTV) PATIENT NAME: Suleiman Ramsey PATIENT March 13, 2023 [facility]: [place] NURSING NOTE TYPE: BREAST Subjective Data concerned about a lump under scar in axilla region thinks it has been there Additional Data Do you want to see a Pharmacy Services Director? Yes scheduled today Status: Post-menopausal. Stress Scale: On a scale of 0 to 10, what number best describes how much distress you have experienced in the past week?(0 being no distress and 10 being extreme distress) 4 Social work notified: Pt denied need to see social science manager at this time. Nursing Assessment Fatigue: increased fatigue over baseline but not altering normal activities Appetite: good Nutritional Intake: Regular oral intake. Weight Gain/Loss: No Ambulatory weight history: Last 6 Encounter Wt Readings: Date: Wt: 02/02/2023 78 kg (172 lb) 02/02/2023 78 kg (172 lb) 01/05/2023 78.6 kg (173 lb 3.2 oz) 12/26/2022 79.3 kg (174 lb 14.4 oz) 12/22/2022 78 kg (172 lb) 12/22/2022 78 kg (172 lb) Nausea:None Vomiting: None Bowel Function: constipation 1 - bowel movement every 2 - 3 days Erythema/Hyperpigmentation:none slight erythema on scar Desquamation:none Rash:none Skin Care: Aquaphor Skin Sensation: Within Normal Limits Focused Assessment BREAST: Lymphedema Assessment: Is the patient noting any swelling? No. SIGNED by: Elizabeth Villalta RN documented in this encounter [facility] 03-13-2023 History of Present illness Narrative Radiation Oncology - On Treatment Review (OTR) Note PATIENT NAME: Suleiman Ramsey PATIENT DIAGNOSIS: Stage IIA, pT3 pN0 (sn), grade 3 invasive ductal carcinoma of the right breast s/p right mastectomy and sentinel node biopsy on 01/09/23. It's ER positive (>90%, strong), HI positive (40%, weak to moderate) and Her2 2+ and FISH negative. COURSE: post-operative AREA TREATED: Right chest wall/SC/IM/axilla CURRENT DOSE: 2400 cGy in 12 fx PLANNED DOSE: 5000 cGy in 25 fx Status: Post-menopausal SUBJECTIVE: She is doing well without any specific new complaints related to radiation treatment. She feels nodular area in the right lower lateral chest wall. EXAM: KPS: 100 General Appearance: Alert and oriented. No acute distress. Subcutaneous soft nodular area just below lateral edge of the right mastectomy scar likely to be post-mastectomy seroma/hematoma. IMAGING/LAB RESULTS: None Treatment chart checked: Yes Patient treatment site reviewed and verified:Yes Port films reviewed and current:Yes Medications started: None ASSESSMENT/PLAN: Clinically stable. No signs of toxicity. Continue radiation treatment as planned. Joy Barry MD documented in this encounter [facility] 03-06-2023 Note HNO ID: [id number] Author: Joy Barry MD, MD Service: ? Author Type: Physician Type: Progress Notes Filed: 03/06/2023 10:46 AM Note Text: Radiation Oncology - On Treatment Review (OTR) Note PATIENT NAME: Suleiman Ramsey PATIENT DIAGNOSIS: Stage IIA, pT3 pN0 (sn), grade 3 invasive ductal carcinoma of the right breast s/p right mastectomy and sentinel node biopsy on 01/09/23. It's ER positive (>90%, strong), HI positive (40%, weak to moderate) and Her2 2+ and FISH negative. COURSE: post-operative AREA TREATED: Right chest wall/SC/IM/axilla CURRENT DOSE: 1400 cGy in 7 fx PLANNED DOSE: 5000 cGy in 25 fx Status: Post-menopausal SUBJECTIVE: She is doing well without any specific new complaints. She denies any skin changes. EXAM: KPS: 100 General Appearance: Alert and oriented. No acute distress. IMAGING/LAB RESULTS: None Treatment chart checked: Yes Patient treatment site reviewed and verified:Yes Port films reviewed and current:Yes Medications started: None ASSESSMENT/PLAN: Clinically stable. No signs of toxicity. Continue radiation treatment as planned. Joy Barry MD [facility] 03-06-2023 Nurse Note Radiation Therapy - Nursing Note (OTV) PATIENT NAME: Suleiman Ramsey PATIENT March 06, 2023 [facility]: [place] NURSING NOTE TYPE: BREAST Subjective Data no complaints Additional Data Do you want to see a Pharmacy Services Director? No Status: Post-menopausal. Stress Scale: On a scale of 0 to 10, what number best describes how much distress you have experienced in the past week?(0 being no distress and 10 being extreme distress) 4 Social work notified: Pt denied need to see social science manager at this time. Nursing Assessment Fatigue: increased fatigue over baseline but not altering normal activities Appetite: good Nutritional Intake: Regular oral intake. Weight Gain/Loss: No Ambulatory weight history: Last 6 Encounter Wt Readings: Date: Wt: 02/02/2023 78 kg (172 lb) 02/02/2023 78 kg (172 lb) 01/05/2023 78.6 kg (173 lb 3.2 oz) 12/26/2022 79.3 kg (174 lb 14.4 oz) 12/22/2022 78 kg (172 lb) 12/22/2022 78 kg (172 lb) Nausea:None Nausea does not interfere with the ability to eat Vomiting: None Bowel Function: normal bowel movements Erythema/Hyperpigmentation:none Desquamation:none Rash:none Skin Care: Aquaphor Skin Sensation: Within Normal Limits Focused Assessment BREAST: Lymphedema Assessment: Is the patient noting any swelling? No. 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 It's ER positive (>90%, strong), HI positive (40%, weak to moderate) and Her2 2+ and FISH negative. COURSE: post-operative AREA TREATED: Right chest wall/SC/IM/axilla CURRENT DOSE: 1400 cGy in 7 fx PLANNED DOSE: 5000 cGy in 25 fx Status: Post-menopausal SUBJECTIVE: She is doing well without any specific new complaints. She denies any skin changes. EXAM: KPS: 100 General Appearance: Alert and oriented. No acute distress. IMAGING/LAB RESULTS: None Treatment chart checked: Yes Patient treatment site reviewed and verified:Yes Port films reviewed and current:Yes Medications started: None ASSESSMENT/PLAN: Clinically stable. No signs of toxicity. Continue radiation treatment as planned. Joy Barry MD documented in this encounter [facility] 02-27-2023 Note HNO ID: [id number] Author: Brittany Olvera RD Service: ? Author Type: Registered Dietitian Type: Progress Notes Filed: 02/27/2023 3:26 PM Note Text: Oncology Nutrition Therapy Initial Assessment I have communicated my name and active licensure. The patient's identity and physical location were verified at the time of this visit. Either the patient or their legal indirect sales representative has been informed of the risks and benefits of -- and alternatives to -- treatment through a remote evaluation and consents to proceed with the evaluation remotely. RECOMMENDED MALNUTRITION DIAGNOSIS: NO MALNUTRITION IDENTIFIED Nutrition Diagnosis: Inconsistent carbohydrate intake, related to, lifestyle factors that interfere with the ability to regulate timing of carbohydrate consumption, as evidenced by patient interview Nutrition Intervention: -Consider meal prepping prior to treatment. - aim for 5-6 small/frequent meals - incorporate lean sources of protein/plant based proteins at meals - Stay well hydrated - sip on fluids throughout the day - start supplementation- pt prefers masters shake Nutrition Monitoring AND Evaluation: PO intake Supplement tolerance Wt status Biochemical Markers Skin integrity Plan of care Patient Condition: Pt presents for nutrition counseling for breast cancer. Pt is currently being treated with RT. Pt denies food allergies/intolerances. Per HPI: The patient is a 77-year-old female with past medical history significant for hypertension, left bundle branch block, hypercholesterolemia, hypothyroidism, diabetes, atrophic vaginitis and rosacea. Patient noted a mass in her right breast approximately 6 months prior to presentation. She was seen by her equipment operating engineer to confirm the presence of a mass. She underwent a bilateral diagnostic mammogram with a right-sided ultrasound at [facility] 11/10/2022. The ultrasound demonstrated that the palpable mass corresponded to a conglomeration of multiple hypoechoic spiculated irregular nodular densities at the 1 o'clock position of the breast 11 cm from the nipple. Largest measured 1 x 2.7 x 1.4 cm. I have confirmed and edited as necessary the hpi obtained by Dr. Chowdhury on 02/02/23 and all reflect current status. Nutrition Assessment: Patient is stable from a nutritional standpoint. Patient's symptoms are: Hyperglycemia Poor sleep Diet History (24hr recall): Breakfast - skips r/t appointments Snack - 2 eggs scrambled on one pc toast, slice of ham Lunch - Snack - Dinner - pasta/ meat, potato, vegetable; sandwich, etc Snack - ashley crackers, vanilla wafers, nuts, Beverages - water, diet coke, hot tea Alcohol- no Vitamins/Supplements - B12, B complex, Vit D3, Social: , son with bipolar disorder Pt states that she has inconsistent meal times and also finds taking humalog before meals difficult. Discussed pairing protein foods with carbohydrate foods. Encouraged her to eat two good meals each day and have healthy snacks. Reviewed list of protein foods. Educational materials provided: soft and moist high protein foods Readiness to Learn: Cognitive ability: Alert and oriented Motivation to learn: Eager Family support: Unable to assess - Family not present Instruction provided to: Patient Patient learns best by: Multiple Methods Factors affecting learning: None Physical limitations affecting learning: None Anthropometrics: Height: Last 1 Encounter Ht Readings: Date: Ht: 02/02/2023 154.5 cm (5' 0.83 ) Current weight: Last 1 Encounter Wt Readings: Date: Wt: 02/02/2023 78 kg (172 lb) Estimated body mass index is 32.68 kg/m? as calculated from the following: Height as of 02/02/23: 154.5 cm (5' 0.83 ). Weight as of 02/02/23: 78 kg (172 lb). Resting Metabolic Rate: 1205 Weight Change: no changes Dosing Weight: 78 kg Estimated kilocalorie needs: 5874-2377 kilocalories determined by 20-25 kcal/kg Estimated protein needs: 93-117 grams determined by 1.2-1.5 g/kg Dosing weight Estimated fluid needs: 1900 milliliters based on 1 mL per kcal Nutrition Focused Physical Exam: Unable to perform exam due to potential for patient discomfort (physical/emotional), will re-attempt during reassessment. Potential Signs of Inflammation: hyperglycemia and chronic condition Allergies: Patient has no known allergies. Medications: Current Outpatient Medications Medication Sig Dispense Refill HYDROcodone-acetaminophen (NORCO) 5-325 mg per tablet Take 1 tablet by mouth every 8 hours as needed for pain. (Patient not taking: Reported on 02/02/2023) 8 tablet 0 cyanocobalamin (VITAMIN B-12) 1,000 mcg tab Take 2,000 mcg by mouth once daily. Ibuprofen 200 mg cap Take 200 mg by mouth every 6 hours as needed for pain. rosuvastatin (CRESTOR) 20 mg tablet Take 1 tablet by mouth once daily. levothyroxine (SYNTHROID) 150 mcg tablet Take 1 tablet by mouth once daily. olmesartan (BENICAR) 40 mg tablet Abdoul (more content not included)... [facility] 02-27-2023 Note Education (KENJI) SULEIMAN RAMSEY ([id number]) 1945 F Date Time Provider Department 02/27/23 2:30 PM BRITTANY OLVERA Reason for Visit: Nutrition Assessment [1591] Primary Visit Diagnosis:Malignant neoplasm of upper-inner quadrant of right breast in female, estrogen receptor positive (HCC) [C50.211, Z17.0] During your visit today, we recorded the following information about you: Allergies As of Date: 02/27/2023 (No Known Allergies) Date Reviewed: 02/27/2023 Reviewed by: Brittany Olvera RD - Fully Assessed Prescriptions as of 02/27/2023 - HYDROcodone-acetaminophen (NORCO) 5-325 mg per tablet Take 1 tablet by mouth every 8 hours as needed for pain. - cyanocobalamin (VITAMIN B-12) 1,000 mcg tab Take 2,000 mcg by mouth once daily. - Ibuprofen 200 mg cap Take 200 mg by mouth every 6 hours as needed for pain. - rosuvastatin (CRESTOR) 20 mg tablet Take 1 tablet by mouth once daily. - levothyroxine (SYNTHROID) 150 mcg tablet Take 1 tablet by mouth once daily. - olmesartan (BENICAR) 40 mg tablet Take 40 mg by mouth once daily. - Pregabalin (LYRICA) 200 mg capsule Take 200 mg by mouth twice daily. - metFORMIN ER (GLUCOPHAGE XR) 500 mg 24 hr tablet Take 4 tablets by mouth daily at bedtime. - insulin glargine,hum.rec.anlog (TOUJEO SOLOSTAR U-300 INSULIN SUBCUTANEOUS) - HUMALOG KWIKPEN INSULIN 200 unit/mL (3 mL) injection - insulin glargine U-300 conc (TOUJEO SOLOSTAR U-300 INSULIN) 300 unit/mL (1.5 mL) INJECT 70 UNITS SUBCUTANEOUSLY AT BEDTIME - Alpha Lipoic Acid 100 mg cap Take 1 capsule by mouth twice daily. - cholecalciferol, vitamin D3, (D3-2000 ORAL) - diphenhydrAMINE (BENADRYL) 25 mg capsule Take by mouth. - Magnesium 200 mg tab Take 400 mg by mouth once daily. 4 tablets daily - VITAMIN B COMPLEX ORAL Take by mouth once daily. - metroNIDAZOLE (METROGEL) 1 % gel .Apply to entire affected area(s) of rosacea on face QDay as directed and can increase up to bid prn flaring or as needed and tolerated. - tretinoin (RETIN-A) 0.025 % topical cream Apply thin layer to face at entire sun-damaged skin area(s) every other day (qoday) up to once per day (qday) as directed and tolerated in the evening (1/2 hr after washing and at least 1/2 hr before bedtime) and wash off face in the AM before going outside. Beware of potential excess sun sensitivity, use sun protection. - hydrocortisone 2.5 % lotion Apply to affected spots and/or area(s) of rash or irritated skin or flared Acne Rosacea on face and neck selectively qday to bid until clear as directed and tolerated. AVOID eyes and eyelids. NB: Needs 3-month supply. Encounter Status:Closed by BRITTANY OLVERA on 02/27/23 [facility] 02-27-2023 History of Present illness Narrative Oncology Nutrition Therapy Initial Assessment I have communicated my name and active licensure. The patient's identity and physical location were verified at the time of this visit. Either the patient or their legal indirect sales representative has been informed of the risks and benefits of -- and alternatives to -- treatment through a remote evaluation and consents to proceed with the evaluation remotely. RECOMMENDED MALNUTRITION DIAGNOSIS: NO MALNUTRITION IDENTIFIED Nutrition Diagnosis: Inconsistent carbohydrate intake, related to, lifestyle factors that interfere with the ability to regulate timing of carbohydrate consumption, as evidenced by patient interview Nutrition Intervention: -Consider meal prepping prior to treatment. - aim for 5-6 small/frequent meals - incorporate lean sources of protein/plant based proteins at meals - Stay well hydrated - sip on fluids throughout the day - start supplementation- pt prefers masters shake Nutrition Monitoring & Evaluation: PO intake Supplement tolerance Wt status Biochemical Markers Skin integrity Plan of care Patient Condition: Pt presents for nutrition counseling for breast cancer. Pt is currently being treated with RT. Pt denies food allergies/intolerances. Per HPI: The patient is a 77-year-old female with past medical history significant for hypertension, left bundle branch block, hypercholesterolemia, hypothyroidism, diabetes, atrophic vaginitis and rosacea. Patient noted a mass in her right breast approximately 6 months prior to presentation. She was seen by her equipment operating engineer to confirm the presence of a mass. She underwent a bilateral diagnostic mammogram with a right-sided ultrasound at [facility] 11/10/2022. The ultrasound demonstrated that the palpable mass corresponded to a conglomeration of multiple hypoechoic spiculated irregular nodular densities at the 1 o'clock position of the breast 11 cm from the nipple. Largest measured 1 x 2.7 x 1.4 cm. I have confirmed and edited as necessary the hpi obtained by Dr. Chowdhury on 02/02/23 and all reflect current status. Nutrition Assessment: Patient is stable from a nutritional standpoint. Patient's symptoms are: Hyperglycemia Poor sleep Diet History (24hr recall): Breakfast - skips r/t appointments Snack - 2 eggs scrambled on one pc toast, slice of ham Lunch - Snack - Dinner - pasta/ meat, potato, vegetable; sandwich, etc Snack - ashley crackers, vanilla wafers, nuts, Beverages - water, diet coke, hot tea Alcohol- no Vitamins/Supplements - B12, B complex, Vit D3, Social: , son with bipolar disorder Pt states that she has inconsistent meal times and also finds taking humalog before meals difficult. Discussed pairing protein foods with carbohydrate foods. Encouraged her to eat two good meals each day and have healthy snacks. Reviewed list of protein foods. Educational materials provided: soft and moist high protein foods Readiness to Learn: Cognitive ability: Alert and oriented Motivation to learn: Eager Family support: Unable to assess - Family not present Instruction provided to: Patient Patient learns best by: Multiple Methods Factors affecting learning: None Physical limitations affecting learning: None Anthropometrics: Height: Last 1 Encounter Ht Readings: Date: Ht: 02/02/2023 154.5 cm (5' 0.83 ) Current weight: Last 1 Encounter Wt Readings: Date: Wt: 02/02/2023 78 kg (172 lb) Estimated body mass index is 32.68 kg/m as calculated from the following: Height as of 02/02/23: 154.5 cm (5' 0.83 ). Weight as of 02/02/23: 78 kg (172 lb). Resting Metabolic Rate: 1205 Weight Change: no changes Dosing Weight: 78 kg Estimated kilocalorie needs: 3061-8795 kilocalories determined by 20-25 kcal/kg Estimated protein needs: 93-117 grams determined by 1.2-1.5 g/kg Dosing weight Estimated fluid needs: 1900 milliliters based on 1 mL per kcal Nutrition Focused Physical Exam: Unable to perform exam due to potential for patient discomfort (physical/emotional), will re-attempt during reassessment. Potential Signs of Inflammation: hyperglycemia and chronic condition Allergies: Patient has no known allergies. Medications: Current Outpatient Medications Medication Sig Dispense Refill HYDROcodone-acetaminophen (NORCO) 5-325 mg per tablet Take 1 tablet by mouth every 8 hours as needed for pain. (Patient not taking: Reported on 02/02/2023) 8 tablet 0 cyanocobalamin (VITAMIN B-12) 1,000 mcg tab Take 2,000 mcg by mouth once daily. Ibuprofen 200 mg cap Take 200 mg by mouth every 6 hours as needed for pain. rosuvastatin (CRESTOR) 20 mg tablet Take 1 tablet by mouth once daily. levothyroxine (SYNTHROID) 150 mcg tablet Take 1 tablet by mouth once daily. olmesartan (BENICAR) 40 mg tablet Take 40 mg by mouth once daily. Pregabalin (LYRICA) 200 mg capsule Take 200 mg by mouth twice daily. metFORMIN ER (GLUCOPHAGE XR) 500 mg 24 hr tablet Take 4 tablets by mouth daily at bedtime. insulin glargine,hum.rec.anlog (TOUJEO SOLOSTAR U-300 INSULIN SUBCUTANEOUS) (Patient not taking: Reported on 12/22/2022) HUMALOG KWIKPEN INSULIN 200 unit/mL (3 mL) injection insulin glargine U-300 conc (TOUJEO SOLOSTAR U-300 INSULIN) 300 unit/mL (1.5 mL) INJECT 70 UNITS SUBCUTANEOUSLY AT BEDTIME Alpha Lipoic Acid 100 mg cap Take 1 capsule by mouth twice daily. cholecalciferol, vitamin D3, (D3-2000 ORAL) diphenhydrAMINE (BENADRYL) 25 mg capsule Take by mouth. Magnesium 200 mg tab Take 400 mg by mouth once daily. 4 tablets daily VITAMIN B COMPLEX ORAL Take by mouth once daily. metroNIDAZOLE (METROGEL) 1 % gel .Apply to entire affected area(s) of rosacea on face QDay as directed and can increase up to bid prn flaring or as needed and tolerated. 2 Tube 4 tretinoin (RETIN-A) 0.025 % topical cream Apply thin layer to face at entire sun-damaged skin area(s) every other day (qoday) up to once per day (qday) as directed and tolerated in the evening (1/2 hr after washing and at least 1/2 hr before bedtime) and wash off face in the AM before going outside. Beware of potential excess sun sensitivity, use sun protection. 15 g 4 hydrocortisone 2.5 % lotion Apply to affected spots and/or area(s) of rash or irritated skin or flared Acne Rosacea on face and neck selectively qday to bid until clear as directed and tolerated. AVOID eyes and eyelids. NB: Needs 3-month supply. 1 Bottle 3 No current facility-administered medications for this visit. Need for Follow up: Will follow up in two weeks. Referred/Supervised by: Dr. Luciana BEEBE Billing Type: Initial Assess/15 min 3 units Billed Time: 45 minutes Signed by: Brittany Olvera RD, LD documented in this encounter [facility] 02-27-2023 Note HNO ID: [id number] Author: Joy Barry MD, Service: ? 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 It's ER positive (>90%, strong), HI positive (40%, weak to moderate) and Her2 2+ and FISH negative. COURSE: post-operative AREA TREATED: Right chest wall/SC/IM/axilla CURRENT DOSE: 400 cGy in 2 fx PLANNED DOSE: 5000 cGy in 25 fx Status: Post-menopausal SUBJECTIVE: She is doing well without any specific new complaints. She denies any skin changes. EXAM: KPS: 100 General Appearance: Alert and oriented. No acute distress. IMAGING/LAB RESULTS: None Treatment chart checked: Yes Patient treatment site reviewed and verified:Yes Port films reviewed and current:Yes Medications started: None ASSESSMENT/PLAN: Clinically stable. No signs of toxicity. Continue radiation treatment as planned. Joy Barry MD [facility] 02-27-2023 Nurse Note Radiation Therapy - Nursing Note (OTV) PATIENT NAME: Suleiman Ramsey PATIENT February 27, 2023 [facility]AC[facility]LOCATION: [place] NURSING NOTE TYPE: BREAST Subjective Data no complaints Additional Data Do you want to see a Pharmacy Services Director? Yes will assist having trouble with blood sugar Status: Post-menopausal. Stress Scale: On a scale of 0 to 10, what number best describes how much distress you have experienced in the past week?(0 being no distress and 10 being extreme distress) 5 Social work notified: Pt denied need to see social science manager at this time. Nursing Assessment Fatigue: none Appetite: good Nutritional Intake: Regular oral intake. Weight Gain/Loss: No Ambulatory weight history: Last 6 Encounter Wt Readings: Date: Wt: 02/02/2023 78 kg (172 lb) 02/02/2023 78 kg (172 lb) 01/05/2023 78.6 kg (173 lb 3.2 oz) 12/26/2022 79.3 kg (174 lb 14.4 oz) 12/22/2022 78 kg (172 lb) 12/22/2022 78 kg (172 lb) Nausea:None Vomiting: None Bowel Function: normal bowel movements Erythema/Hyperpigmentation:none Desquamation:none Rash:none Skin Care: Aquaphor Skin Sensation: Within Normal Limits Focused Assessment BREAST: Lymphedema Assessment: Is the patient noting any swelling? No. 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 It's ER positive (>90%, strong), HI positive (40%, weak to moderate) and Her2 2+ and FISH negative. COURSE: post-operative AREA TREATED: Right chest wall/SC/IM/axilla CURRENT DOSE: 400 cGy in 2 fx PLANNED DOSE: 5000 cGy in 25 fx Status: Post-menopausal SUBJECTIVE: She is doing well without any specific new complaints. She denies any skin changes. EXAM: KPS: 100 General Appearance: Alert and oriented. No acute distress. IMAGING/LAB RESULTS: None Treatment chart checked: Yes Patient treatment site reviewed and verified:Yes Port films reviewed and current:Yes Medications started: None ASSESSMENT/PLAN: Clinically stable. No signs of toxicity. Continue radiation treatment as planned. Joy Barry MD documented in this encounter [facility] 02-24-2023 Note HNO ID: [id number] Author: Note, Interface Service: ? Author Type: ? Type: Progress Notes Filed: 02/24/2023 3:31 AM Note Text: Epic Scheduled Downtime: 02/24/2023 1:00:00 AM to 02/24/2023 1:28:00 AM [facility] 02-22-2023 Note HNO ID: [id number] Author: Joy Barry MD, MD Service: Radiation Oncology Author Type: Physician Type: Progress Notes Filed: 02/24/2023 12:33 AM Note Text: SULEIMAN RAMSEY [id number] 02/22/2023 [facility] Department of Radiation Oncology [facility] RADIATION ONCOLOGY SIMULATION NOTE DATE OF SIMULATION: 02/22/2023 MACHINE: Siemens Definition CT Simulator Diagnosis: Stage IIA, pT3 pN0 (sn), grade 3 invasive ductal carcinoma of the right breast s/p right mastectomy and sentinel node biopsy on 01/09/23. It's ER positive (>90%, strong), HI positive (40%, weak to moderate) and Her2 2+ and FISH negative. AREA:Right Chest Wall/IM/SC/Axilla. PATIENT POSITION: Supine. CONTRAST: None PROTOCOL: None BLOCKING: Custom blocking to be determined at treatment planning. FIXATION DEVICE: In order to achieve accurate and reproducible treatments, the patient is to be immobilized with AIO orfit system. PROCEDURE: A time-out was conducted and recorded by the therapist. Patient was simulated on the CT scanner for external beam radiation therapy. Treatment site was marked by the simulation therapist. ASSESSMENT/PLAN: Patient tolerated simulation procedure well. Treatments will be initiated after treatment planning. The patient is scheduled for a verification simulation on the treatment machine to ensure proper set-up and field arrangement is correct prior to the first treatment of primary and boost mccollum if applicable. Electronically Signed Joy Barry M.D./too :17 AM [facility] 02-22-2023 Note HNO ID: [id number] Author: Joy Barry MD, MD Service: Radiation Oncology Author Type: Physician Type: Progress Notes Filed: 02/24/2023 12:32 AM Note Text: SULEIMAN RAMSEY [id number] 02/22/2023 [facility] Department of Radiation Oncology Treatment Planning Note For reasons stated in the consult note, Suleiman Ramsey is a candidate for radiation therapy. Based on review and interpretation of the relevant diagnostic studies together with the exam findings, Suleiman Ramsey was simulated on 02/22/2023 at which time the target volume and/or requisite mccollum were delineated, as indicated in the simulation note, to be treated according to the prescription. The treatment target and organs at risk were contoured on the simulation scan. After reviewing multiple treatment plans with dosimetry, the best plan was approved to deliver the prescribed course of radiation to the target area using 3D planning to allow for the best isodose distribution, treating to the 100,95% isodose line with 6,10,15 MV and 5 segmented mccollum. Custom MLC wedges asym jaws were the treatment device(s) used to shape/modify the beams. Limiting dose to normal tissue was confirmed upon review of the calculated dose volume histogram. A completed summary of this plan dated 02/23/2023 incorporated herein by reference includes dose, beam arrangements, energy, blocking, isodose distribution, and/or ports and DVH. Electronically Signed Joy Barry M.D. :16 AM [facility] 02-22-2023 Nurse Note Radiation Therapy - Patient Education Note PATIENT NAME: Suleiman Ramsey PATIENT February 22, 2023 [facility]ACILITY[facility]LOCATION: [place] READINESS TO LEARN Cognitive Ability: Alert and oriented Motivation to learn: Eager Interested Family Support: High - Very involved in pt care Instruction provide to: Patient and family member Patient learns best by: Multiple Methods Factors effecting learning: None Physical limitations effecting learning: Sensory Deficit Hearing: Hard of Hearing Hearing Aid LEARNING RESPONSE Diagnosis: Pt simulated today for radiation therapy to right breast. Education Topic/Teaching Points: Radiation therapy, Side effects, and OTV: Method of instruction: Teach Back skin care Individual instruction Written instruction - handouts Verbal instruction Patient /Family response: Patient and family verbalized understanding of radiation treatments, side effects, OTV, and transportation. Follow-up plan: Patient instructed to call with any further issues Contact information given. Supplemental material: Informational handouts on Department phone list, Fatigue, and [facility] instructions, XRT sheet and Aquaphor handout. Referral (recommendation): None, Pt denied need for social work, van service, and tobacco drummer. Was approved? 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 It's ER positive (>90%, strong), HI positive (40%, weak to moderate) and Her2 2+ and FISH negative. AREA:Right Chest Wall/IM/SC/Axilla. PATIENT POSITION: Supine. CONTRAST: None PROTOCOL: None BLOCKING: Custom blocking to be determined at treatment planning. FIXATION DEVICE: In order to achieve accurate and reproducible treatments, the patient is to be immobilized with AIO orfit system. PROCEDURE: A time-out was conducted and recorded by the therapist. Patient was simulated on the CT scanner for external beam radiation therapy. Treatment site was marked by the simulation therapist. ASSESSMENT/PLAN: Patient tolerated simulation procedure well. Treatments will be initiated after treatment planning. The patient is scheduled for a verification simulation on the treatment machine to ensure proper set-up and field arrangement is correct prior to the first treatment of primary and boost mccollum if applicable. Electronically Signed Joy Barry M.D./too 0:17 AM documented in this encounter [facility] 02-22-2023 History of Present illness Narrative SULEIMAN RAMSEY [id number] 02/22/2023 [facility] Department of Radiation Oncology Treatment Planning Note For reasons stated in the consult note, Suleiman Ramsey is a candidate for radiation therapy. Based on review and interpretation of the relevant diagnostic studies together with the exam findings, Suleiman Ramsey was simulated on 02/22/2023 at which time the target volume and/or requisite mccollum were delineated, as indicated in the simulation note, to be treated according to the prescription. The treatment target and organs at risk were contoured on the simulation scan. After reviewing multiple treatment plans with dosimetry, the best plan was approved to deliver the prescribed course of radiation to the target area using 3D planning to allow for the best isodose distribution, treating to the 100,95% isodose line with 6,10,15 MV and 5 segmented mccollum. Custom MLC wedges asym jaws were the treatment device(s) used to shape/modify the beams. Limiting dose to normal tissue was confirmed upon review of the calculated dose volume histogram. A completed summary of this plan dated 02/23/2023 incorporated herein by reference includes dose, beam arrangements, energy, blocking, isodose distribution, and/or ports and DVH. Electronically Signed Joy Barry M.D. 0:16 AM documented in this encounter [facility] 02-09-2023 Note HNO ID: [id number] Author: Alex Danielle PA-C Service: ? Author Type: Physician Marketing Services Vice President Type: Progress Notes Filed: 02/19/2023 2:24 PM Note Text: HISTORY: This 77 year old female is s/p a RIGHT mastectomy, RIGHT sentinel lymph node mapping and biopsy (no reconstruction) performed by Dr. Parkinson (Breast Surgeon) on 01/09/2023. She was seen for the initial Post-Op visit and drain removal. Surgical pathology results were reviewed at that time. She returns reporting she does not have any fluid in the surgical site. Patient denies any fever, chills or redness in the incisional area. She states that she is doing well. EXAMINATION: The Right chest wall incisional line is healing well and without any evidence of infection. There is minimal fullness in the surgical site and the patient prefers that no aspiration be attempted at this point in time. BREAST IMAGING: Breast imaging was not performed today. IMPRESSION: Suleiman Ramsey, 77 year old year old female, s/p a RIGHT mastectomy, RIGHT sentinel lymph node mapping and biopsy (No reconstruction) performed by Dr. Parkinson (Breast Surgeon) on 01/09/2023 Final pathology reports IDC, 7.0 cm (margins clear), Grade 3, 0/2 LN, -LVI ER+, HI+, HER2- PATHOLOGICAL STAGE RIGHT BREAST: p,T3,N0 Small post op seroma, patient declines aspiration at this time. PLAN: Instructions were reviewed regarding the signs and symptoms of infection, seroma development and wound management. She will wear a compression bra garment in hopes of increasing the skin adherence to the muscle, thereby decreasing cavity space/seroma formation for one week, then no need to re-wrap. Encourage to be aware of over extending her arm in order to prevent stress on the incision site. She is instructed on the signs and symptoms of infection including redness, fever, draining, edema, pain. Patient instructed on the signs and symptoms of seroma including edema and discomfort She will follow-up with Dr. hCilds (Radiation Oncologist) as scheduled 02/22/2023, for a simulation planning. Ms. Ramsey should return for a wound/seroma check in 2 weeks (sooner if needed). She has our names and numbers to stay in touch if there are any questions, concerns or problems. Alex Danielle PA-C [facility] 02-07-2023 Note HNO ID: [id number] Author: Kori Roman PT Service: ? Author Type: Physical Therapist Type: Progress Notes Filed: 02/07/2023 1:42 PM Note Text: Episode Visit Count: 1 Therapist That Will Accept/Oversee The Plan Of Care: Kori Roman Start of Care Date: 02/07/23 Onset Date: 01/09/23 Plan of Care Certification Date: 02/07/23 Next Certification Due Date: 05/09/23 Patient Identified by Name and Date of : Yes RE[facility]AB[facility] SPORTS THERAPY PHYSICAL THERAPY EVALUATION PLAN OF CARE: Assessment: Suleiman Ramsey presents with diagnosis of breast cancer, post-mastectomy R that interferes with nothing (Difficulty walking very far or standing prolonged s/t spinal stenosis.) . She presents with impairments in soft tissue healing and tissue tenderness. PROMIS? (Patient-Reported Outcomes Measurement Information System) scores were reviewed and all domains identified as within normal limits. Prognosis for therapy is Excellent due to: current objective clinical presentation, good overall health status, good support system/ coping skills . She will benefit from skilled therapy services to meet the goals established for this plan of care as noted below. Goals for Episode of Care: created on 02/07/23 through 05/09/23 Patient able to verbalize skin care and lymphedema risk reductions Patient will have supple scar with no tenderness to palpation and demonstrate and understanding of scar management Patient/family able to verbalize all pertinent aspects of CDT Patient / family independence with home program Patient Goals: Pt denies any specific goals at this time. Planned Interventions, Frequency, and Duration: Current Frequency: 1 visit Duration: 12 weeks Total Number of Visits Planned: 1 Planned Treatment Interventions: Therapeutic exercise (87391), Manual therapy (51020), Self-group home management (32361), Patient/Family/Caregiver Education PLAN FOR NEXT VISIT: Assess for any changes in skin and soft tissue. May reassess R shld AROM following radiation.further education in self-care, compression recommendations per symptom presentation. Patient demonstrates good understanding of plan of care and treatment. The above goals and plan of care were discussed and agreed upon by patient/family. SUBJECTIVE: Pt reports she feels she is doing well since her surgery. Notes some discomfort at the incision if it is rubbed. Shereports putting an ABD pad over it to avoid friction on it. describes Soft lumpish swelling in a couple places that are resolving. She denies any functional limitations and is able to lift a gallon of mild out of refrigerator. Patient Goals: Pt denies any specific goals at this time. Functional Limitations: nothing (Difficulty walking very far or standing prolonged s/t spinal stenosis.) Prior Level of Function: Independent with restrictions Independent with the following restrictions: prolonged standing/walking as noted above Relevant History Past Relevant Medical Conditions: Diabetes, Hypertension, Thyroid Disease Right or Left Handed: Left Home Environment Patient Lives With: Spouse Intake Information: Prescription present Previous Treatment: None Pain: Pain Pain Level: 4 Pain Location: Chest - Right Description: (Pain if rubbed on healing incision site.) Frequency: Intermittent Post Treatment Pain Post Treatment Pain Level: 0 PROMIS Scales Higher is Better 02/04/2023 Phys Func - Score 39 (moderate dysfunction) Phys Func - Percentile 14 % Self-Eff Symptom - Score 45 (Average) Self-Eff Symptom - Percentile 31 % T-scores: mean of general population = 50. 5 points is clinically meaningfully difference Percentiles provide an indication of how the patient's score ranks in relation to the general population. Higher percentile rankings indicate better function/quality of life. 50th percentile is the average of the general population and indicates half of respondents had a worse score. OBJECTIVE MEASURES WITH LEVEL OF FUNCTION: Sensory Sensory Deficits: (numbness lateral subaxillary region, normal to pressure) Lymphedema Presents with: Decreased knowledge of lymphedema management, Pain, Swelling Lymphedema Contributing Factors: Lymph Node Removal, Radiation Relative Contra-indications to Compression: : Diabetes Relative Contra-indications to Manual Lymph Drainage: : None Relative Contra-indications to Neck Manual Lymph Drainage: : Hyper/hypothyroidism, Age (>70 years old) Relative Contra-indications for Abdominal Sequences: None Skin: (No signs of infection, healing incision at R breast with scabbing.) Breast Cancer Related Stage of Lymphedema: At Risk- Limb volume 0%-3% greater than baseline Upper Extremity Circumferential Measurements R Thumb (proximal phalanx) (cm): 6.5 cm R Index Finger (proximal phalanx) (cm): 6 cm R Middle Finger (proximal phalanx) (cm): 6 cm R Ring Finger (proximal phalanx) (more content not included)... [facility] 02-02-2023 Note HNO ID: [id number] Author: Joy Barry MD, MD Service: ? Author Type: Physician Type: Progress Notes Filed: 02/06/2023 10:27 AM Note Text: Radiation Oncology - New Patient/Consult Note PATIENT NAME: Suleiman Ramsey PATIENT REQUESTING PROVIDER: Dr. 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 It's ER positive (>90%, strong), HI positive (40%, weak to moderate) and Her2 2+ and FISH negative. HPI: 77 year old female who presents with above diagnosis, for an opinion regarding the role of radiation therapy in the management of the patient's disease. Final recommendations will be communicated back to the requesting physician by way of the shared medical record, or letter to requesting physician via [place] mail. 77 year old woman who felt a lump in the right breast for about six months. Bilateral diagnostic mammogram and right breast ultrasound were done on 11/10/22. Mammogram showed multiple masses in the upper inner aspect of the right breast mid depth. There is architectural distortion surrounding this region.The masses span approximately 5.7 x 6.8 cm. US showed multiple irregular, hypoechoic masses in the right upper inner quadrant. The largest imaged region is at the 1:00 position, 12 cm from the nipple, measuring 1.4 x 2.7 x 1 cm. US of the right axilla showed benign nodes. US guided core biopsy of the right breast lesion on 11/15/22 showed grade 2 invasive ductal carcinoma. It's ER positive (>90%, strong), HI positive (40%, weak to moderate) and Her2 2+ and FISH negative. Staging CT C/A/P on 11/29/22 and bone scan on 12/04/22 were all negative for distant metastases. She underwent right mastectomy and sentinel node biopsy on 01/09/23. Pathology showed grade 3 invasive ductal carcinoma measuring 70 mm with negative surgical margins. There was grade 3 DCIS component with comedonecrosis. The closest margin was 7 mm from the superior radial margin with invasive cancer and 5 mm with DCIS. There was no LVI. Two sentinel nodes were negative for metastasis. ALLERGIES No Known Allergies Current Outpatient Medications on File Prior to Visit Medication Sig HYDROcodone-acetaminophen (NORCO) 5-325 mg per tablet Take 1 tablet by mouth every 8 hours as needed for pain. (Patient not taking: Reported on 02/02/2023) cyanocobalamin (VITAMIN B-12) 1,000 mcg tab Take 2,000 mcg by mouth once daily. Ibuprofen 200 mg cap Take 200 mg by mouth every 6 hours as needed for pain. rosuvastatin (CRESTOR) 20 mg tablet Take 1 tablet by mouth once daily. levothyroxine (SYNTHROID) 150 mcg tablet Take 1 tablet by mouth once daily. olmesartan (BENICAR) 40 mg tablet Take 40 mg by mouth once daily. Pregabalin (LYRICA) 200 mg capsule Take 200 mg by mouth twice daily. metFORMIN ER (GLUCOPHAGE XR) 500 mg 24 hr tablet Take 4 tablets by mouth daily at bedtime. insulin glargine,hum.rec.anlog (TOUJEO SOLOSTAR U-300 INSULIN SUBCUTANEOUS) (Patient not taking: Reported on 12/22/2022) HUMALOG KWIKPEN INSULIN 200 unit/mL (3 mL) injection insulin glargine U-300 conc (TOUJEO SOLOSTAR U-300 INSULIN) 300 unit/mL (1.5 mL) INJECT 70 UNITS SUBCUTANEOUSLY AT BEDTIME Alpha Lipoic Acid 100 mg cap Take 1 capsule by mouth twice daily. cholecalciferol, vitamin D3, (D3-2000 ORAL) diphenhydrAMINE (BENADRYL) 25 mg capsule Take by mouth. Magnesium 200 mg tab Take 400 mg by mouth once daily. 4 tablets daily VITAMIN B COMPLEX ORAL Take by mouth once daily. metroNIDAZOLE (METROGEL) 1 % gel .Apply to entire affected area(s) of rosacea on face QDay as directed and can increase up to bid prn flaring or as needed and tolerated. tretinoin (RETIN-A) 0.025 % topical cream Apply thin layer to face at entire sun-damaged skin area(s) every other day (qoday) up to once per day (qday) as directed and tolerated in the evening (1/2 hr after washing and at least 1/2 hr before bedtime) and wash off face in the AM before going outside. Beware of potential excess sun sensitivity, use sun protection. hydrocortisone 2.5 % lotion Apply to affected spots and/or area(s) of rash or irritated skin or flared Acne Rosacea on face and neck selectively qday to bid until clear as directed and tolerated. AVOID eyes and eyelids. NB: Needs 3-month supply. No current facility-administered medications on file prior to visit. PAST MEDICAL HISTORY Diagnosis Date Breast cancer (HCC) 12/2022 right breast Dysplasia of cervix, unspecified 05/14/1991 Essential hypertension, benign Other and unspecified hyperlipidemia PMH - PAST MEDICAL HISTORY OF Diabetes Type 11 Dx one year ago Rosacea Symptomatic menopausal or female climacteric states Unspecified hypothyroidism Prior radiation therapy, collagen vascular disease, or inflammatory bowel disease: No Any implanted or external electric devices? Yes : Continuous glu (more content not included)... [facility] 02-02-2023 Note HNO ID: [id number] Author: Bobby Chowdhury, DO Service: ? Author Type: Physician Type: Progress Notes Filed: 02/02/2023 2:23 PM Note Text: Patient referred by Dr. Parkinson for breast cancer. The impression and plan will be communicated by way of the shared electronic record or faxed under separate cover letter. HPI: The patient is a 77-year-old female with past medical history significant for hypertension, left bundle branch block, hypercholesterolemia, hypothyroidism, diabetes, atrophic vaginitis and rosacea. Patient noted a mass in her right breast approximately 6 months prior to presentation. She was seen by her equipment operating engineer to confirm the presence of a mass. She underwent a bilateral diagnostic mammogram with a right-sided ultrasound at [facility] 11/10/2022. The ultrasound demonstrated that the palpable mass corresponded to a conglomeration of multiple hypoechoic spiculated irregular nodular densities at the 1 o'clock position of the breast 11 cm from the nipple. Largest measured 1 x 2.7 x 1.4 cm. Patient had a core needle biopsy under ultrasound guidance on 11/15/2022. 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 ER (clone 6F11) >95% , strong HI (clone 16/1E2) 80%, weak to moderate Her-2Neu (clone CB11) 1 - 2+ (equivocal) Patient had a CT of the chest, abdomen pelvis on 11/29/2022 at [facility]. There was a group of nodular soft tissue densities in the right breast. Small postbiopsy microclip was visualized. There was no findings suggestive of metastatic disease in the chest, abdomen pelvis. There is old calcified granulomatous disease with subcarinal adenopathy. Stable, bulbous appearance of the uterus was also observed. Clinical suspicion for fibroid. Stable, extensive degenerative changes in the spine were also observed. Patient had an ultrasound of the right axilla. That study on 11/29/2022 demonstrated 2 benign appearing lymph nodes within the fatty tissues of the axilla. The largest measured 10.6 x 6.1 x 7.33 mm. There was significant fatty replacement. The second was smaller. The impression was no sonographic evidence of suspicious right axillary adenopathy or mass. The patient also had a bone scan on 12/04/2022 at [facility]. That study demonstrated increased uptake in the left anterior lateral fifth and sixth ribs consistent with trauma/fracture. There was no definite scintigraphic evidence of diffuse skeletal metastatic disease. Repeat US 12/22/2022: There is a 2.9 cm x 2.5 cm x 2 cm oval area in the right breast at 11 o'clock middle depth 6 cm from the nipple. This oval area is of mixed echogenicity. This correlates with mammography findings. No significant abnormalities were seen sonographically in the right axilla. Ultrasound evaluation of the right breast demonstrates a conglomeration of masses with irregular and angular borders at the 12 o'clock position 7 cm from the nipple. This is all palpable to the patient. The area measures at least 4.6 x 2.4 x 3.2 cm. In addition in evaluating the upper outer quadrant there are other numerous hypoechoic highly suspicious subcentimeter masses extending until the 2 to 3 o'clock position. The larger masses measure as follow; 2 o'clock position 10 cm from the nipple is a hypoechoic solid mass in the posterior aspect measuring 1.2 x 1.3 x 1.2 cm. This is highly suspicious for an additional satellite lesion. Ultrasound-guided biopsy can be performed if surgically indicated. 2:00 6 cm from the nipple is a hypoechoic lobulated irregular solid suspicious mass measuring 0.8 x 0.7 x 0.7 cm. The 2.9 cm x 2.5 cm x 2 cm oval area in the right breast most likely is fibroglandular tissue or a fibrous ridge and is at a low suspicion for malignancy. A surgical consult is recommended Patient underwent right simple mastectomy along with axillary sentinel lymph node biopsy on 01/09/2023. Pathology: A. Right breast, mastectomy: - Invasive ductal carcinoma, see synoptic report. - Ductal carcinoma in situ, solid and cribriform type, nuclear grade 3, with comedonecrosis. - Biopsy clip identified. B. Right breast, superior radial margin, excision: - Unremarkable fibroadipose tissue and skeletal muscle. C. Right sentinel lymph node, excision: - Two lymph nodes, negative for metastatic carcinoma (0/2). D.Right breast, lateral skin margin, excision: - Unremarkable skin and underlying tissue. SPECIMEN Procedure Total mastectomy Specimen Laterality Right TUMOR Tumor Site Upper outer quadrant Upper inner quadrant Histologic Type Invasive carcinoma of no special type (ductal) Histologic Grade (Charmco Histologic Score) Glandular (Acinar) / Tubular Differentiation Score 3 Nuclear Pleomorphism Score 2 Mitotic Rate Score 2 Overall Grade Grade 3 (scores of 8 or 9) Tumor Size Greatest dimension of largest invasive focus (Millimeters): 70 mm Ductal Carcinoma In Situ (DCIS) Present Architectural Patterns Cribrif (more content not included)... [facility] 02-02-2023 History of Present illness Narrative Radiation Oncology - New Patient/Consult Note PATIENT NAME: Suleiman Ramsey PATIENT REQUESTING PROVIDER: Dr. 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 It's ER positive (>90%, strong), HI positive (40%, weak to moderate) and Her2 2+ and FISH negative. HPI: 77 year old female who presents with above diagnosis, for an opinion regarding the role of radiation therapy in the management of the patient's disease. Final recommendations will be communicated back to the requesting physician by way of the shared medical record, or letter to requesting physician via [place] mail. 77 year old woman who felt a lump in the right breast for about six months. Bilateral diagnostic mammogram and right breast ultrasound were done on 11/10/22. Mammogram showed multiple masses in the upper inner aspect of the right breast mid depth. There is architectural distortion surrounding this region.The masses span approximately 5.7 x 6.8 cm. US showed multiple irregular, hypoechoic masses in the right upper inner quadrant. The largest imaged region is at the 1:00 position, 12 cm from the nipple, measuring 1.4 x 2.7 x 1 cm. US of the right axilla showed benign nodes. US guided core biopsy of the right breast lesion on 11/15/22 showed grade 2 invasive ductal carcinoma. It's ER positive (>90%, strong), HI positive (40%, weak to moderate) and Her2 2+ and FISH negative. Staging CT C/A/P on 11/29/22 and bone scan on 12/04/22 were all negative for distant metastases. She underwent right mastectomy and sentinel node biopsy on 01/09/23. Pathology showed grade 3 invasive ductal carcinoma measuring 70 mm with negative surgical margins. There was grade 3 DCIS component with comedonecrosis. The closest margin was 7 mm from the superior radial margin with invasive cancer and 5 mm with DCIS. There was no LVI. Two sentinel nodes were negative for metastasis. ALLERGIES No Known Allergies Current Outpatient Medications on File Prior to Visit Medication Sig HYDROcodone-acetaminophen (NORCO) 5-325 mg per tablet Take 1 tablet by mouth every 8 hours as needed for pain. (Patient not taking: Reported on 02/02/2023) cyanocobalamin (VITAMIN B-12) 1,000 mcg tab Take 2,000 mcg by mouth once daily. Ibuprofen 200 mg cap Take 200 mg by mouth every 6 hours as needed for pain. rosuvastatin (CRESTOR) 20 mg tablet Take 1 tablet by mouth once daily. levothyroxine (SYNTHROID) 150 mcg tablet Take 1 tablet by mouth once daily. olmesartan (BENICAR) 40 mg tablet Take 40 mg by mouth once daily. Pregabalin (LYRICA) 200 mg capsule Take 200 mg by mouth twice daily. metFORMIN ER (GLUCOPHAGE XR) 500 mg 24 hr tablet Take 4 tablets by mouth daily at bedtime. insulin glargine,hum.rec.anlog (TOUJEO SOLOSTAR U-300 INSULIN SUBCUTANEOUS) (Patient not taking: Reported on 12/22/2022) HUMALOG KWIKPEN INSULIN 200 unit/mL (3 mL) injection insulin glargine U-300 conc (TOUJEO SOLOSTAR U-300 INSULIN) 300 unit/mL (1.5 mL) INJECT 70 UNITS SUBCUTANEOUSLY AT BEDTIME Alpha Lipoic Acid 100 mg cap Take 1 capsule by mouth twice daily. cholecalciferol, vitamin D3, (D3-2000 ORAL) diphenhydrAMINE (BENADRYL) 25 mg capsule Take by mouth. Magnesium 200 mg tab Take 400 mg by mouth once daily. 4 tablets daily VITAMIN B COMPLEX ORAL Take by mouth once daily. metroNIDAZOLE (METROGEL) 1 % gel .Apply to entire affected area(s) of rosacea on face QDay as directed and can increase up to bid prn flaring or as needed and tolerated. tretinoin (RETIN-A) 0.025 % topical cream Apply thin layer to face at entire sun-damaged skin area(s) every other day (qoday) up to once per day (qday) as directed and tolerated in the evening (1/2 hr after washing and at least 1/2 hr before bedtime) and wash off face in the AM before going outside. Beware of potential excess sun sensitivity, use sun protection. hydrocortisone 2.5 % lotion Apply to affected spots and/or area(s) of rash or irritated skin or flared Acne Rosacea on face and neck selectively qday to bid until clear as directed and tolerated. AVOID eyes and eyelids. NB: Needs 3-month supply. No current facility-administered medications on file prior to visit. PAST MEDICAL HISTORY Diagnosis Date Breast cancer (HCC) 12/2022 right breast Dysplasia of cervix, unspecified 05/14/1991 Essential hypertension, benign Other and unspecified hyperlipidemia PMH - PAST MEDICAL HISTORY OF Diabetes Type 11 Dx one year ago Rosacea Symptomatic menopausal or female climacteric states Unspecified hypothyroidism Prior radiation therapy, collagen vascular disease, or inflammatory bowel disease: No Any implanted or external electric devices? Yes : Continuous glucose monitor. status: Post-menopausal. PAST SURGICAL HISTORY Procedure Laterality Date CAUTERY CERVIX CRYOCAUTERY INITIAL/REPEAT 05/14/1991 for dysplasia CONIZATION CERVIX W/WO D&C RPR ELTRD EXC 08/12/1997 LEEP-Cervix Cervicitis only found CYSTOSCOPY,+URETEROSCOPY DILATION & CURETTAGE DX&/THER NONOBSTETRIC Dilation & curettage LIG/TRNSXJ FLP TUBE ABDL/VAG APPR UNI/BI Tubal ligation MASTECTOMY, SIMPLE, COMPLETE Right 01/09/2023 PAST SURGICAL HISTORY OF 2021 left wrist fx US BREAST NEEDLE CORE BIOPSY RT Right 12/2022 FAMILY HISTORY Problem Relation Age of Onset Cancer Father =lung, liver , pancreas Heart Father Diabetes Maternal Grandmother Diabetes Paternal Grandfather Anesthesia Problems No Family History Social History Tobacco Use Smoking status: Former Types: Cigarettes Quit date: 05/14/1980 Years since quittin.7 Smokeless tobacco: Never Vaping Use Vaping Use: Never used Substance Use Topics Alcohol use: Yes Comment: one a Year Drug use: No COMPLETE REVIEW OF SYSTEMS: GENERAL: feeling well without fatigue, no recent change in weight HEENT: denies RAYMUNDO, change in hearing or vision, no other ENT complaints NECK: denies swelling or pain in neck RESPIRATORY: no cough, no wheezing or shortness of breath CARDIOVASCULAR: no chest pain, no palpitations GI: normal appetite, tolerating PO well, BMs normal, and no abdominal pain : urination is normal MUSCULOSKELETAL: denies any painful or swollen joints, no muscle aches SKIN: no rash HEMATOLOGY/LYMPHOLOGY: negative for prolonged bleeding, no swollen lymph nodes NEURO: chronic numbness/tingling in feet from diabetic neuropathy. PHYSICAL EXAM: VS: BP 155/83 Pulse 72 Temp 36.7 C (98 F) Resp 15 Wt 78 kg (172 lb) SpO2 97% BMI 32.68 kg/m Is the patient having any pain? No 0 on a scale of 0 to 10 KPS: 100 General Appearance: Alert and oriented. No acute distress. HEENT: NCAT. Sclera anicteric. EOMI. Neck: Normal ROM. Chest: No respiratory distress. Musculoskeletal: Normal ROM in extremities. Neuro: Speech fluent. Gait normal. No focal deficits. Hematologic: No signs of active bleeding. RADIOLOGY/LABORATORY DATA: see HPI ASSESSMENT AND PLAN: 77 year old woman with Stage IIA, pT3 pN0 (sn), grade 3 invasive ductal carcinoma of the right breast s/p right mastectomy and sentinel node biopsy on 01/09/23. It's ER positive (>90%, strong), HI positive (40%, weak to moderate) and Her2 2+ and FISH negative. She has a large grade 3 7 cm tumor located in the upper inner quadrant. I recommend radiation treatment to the right chest wall and regional lymphatics. I explained the rationale, benefits, alternative management options and potential complications of radiation treatment to the patient and she understands and agrees to proceed. It was explained and understood that other personnel such as radiation therapists, brake machine operator, and physicists will participate in planning and delivery of radiation treatment. Permanent tattoo kovacs will be placed to aid with positioning for daily treatment and the patient consented. Patient will have a simulation procedure after she heals from surgery. I understand that she saw Dr. Chowdhury today and will have hormonal therapy after radiation treatment. Thank you very much for allowing us to participate in her care. Signed by: Joy Barry MD cc: Benny Bosch MD [address] [place] [address] Bobby Parkinson documented in this encounter [facility] 02-02-2023 Nurse Note Radiation Therapy - Nursing Note (Consult) PATIENT NAME: Suleiman Ramsey PATIENT February 02, 2023 DR[facility]ITAL FACILITY/LOCATION: [place] Chief Complaint: consult Reason for visit: Consult. Referring physician: Internal provider Dr Parkinson Subjective Data: see pain assessment Additional Data Do you want to see a Pharmacy Services Director? No Are you interested in information about fertility? No Status: Post-menopausal Stress Scale: On a scale of 0 to 10, what number best describes how much distress you have experienced in the past week?(0 being no distress and 10 being extreme distress) 4 Social work notified: Pt denied need to see social science manager at this time. SIGNED by: Gracie Adam RN documented in this encounter [facility] 02-02-2023 History of Present illness Narrative Patient referred by Dr. Parkinson for breast cancer. The impression and plan will be communicated by way of the shared electronic record or faxed under separate cover letter. HPI: The patient is a 77-year-old female with past medical history significant for hypertension, left bundle branch block, hypercholesterolemia, hypothyroidism, diabetes, atrophic vaginitis and rosacea. Patient noted a mass in her right breast approximately 6 months prior to presentation. She was seen by her equipment operating engineer to confirm the presence of a mass. She underwent a bilateral diagnostic mammogram with a right-sided ultrasound at [facility] 11/10/2022. The ultrasound demonstrated that the palpable mass corresponded to a conglomeration of multiple hypoechoic spiculated irregular nodular densities at the 1 o'clock position of the breast 11 cm from the nipple. Largest measured 1 x 2.7 x 1.4 cm. Patient had a core needle biopsy under ultrasound guidance on 11/15/2022. 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 ER (clone 6F11) >95% , strong HI (clone 16/1E2) 80%, weak to moderate Her-2Neu (clone CB11) 1 - 2+ (equivocal) Patient had a CT of the chest, abdomen pelvis on 11/29/2022 at [facility]. There was a group of nodular soft tissue densities in the right breast. Small postbiopsy microclip was visualized. There was no findings suggestive of metastatic disease in the chest, abdomen pelvis. There is old calcified granulomatous disease with subcarinal adenopathy. Stable, bulbous appearance of the uterus was also observed. Clinical suspicion for fibroid. Stable, extensive degenerative changes in the spine were also observed. Patient had an ultrasound of the right axilla. That study on 11/29/2022 demonstrated 2 benign appearing lymph nodes within the fatty tissues of the axilla. The largest measured 10.6 x 6.1 x 7.33 mm. There was significant fatty replacement. The second was smaller. The impression was no sonographic evidence of suspicious right axillary adenopathy or mass. The patient also had a bone scan on 12/04/2022 at [facility]. That study demonstrated increased uptake in the left anterior lateral fifth and sixth ribs consistent with trauma/fracture. There was no definite scintigraphic evidence of diffuse skeletal metastatic disease. Repeat US 12/22/2022: There is a 2.9 cm x 2.5 cm x 2 cm oval area in the right breast at 11 o'clock middle depth 6 cm from the nipple. This oval area is of mixed echogenicity. This correlates with mammography findings. No significant abnormalities were seen sonographically in the right axilla. Ultrasound evaluation of the right breast demonstrates a conglomeration of masses with irregular and angular borders at the 12 o'clock position 7 cm from the nipple. This is all palpable to the patient. The area measures at least 4.6 x 2.4 x 3.2 cm. In addition in evaluating the upper outer quadrant there are other numerous hypoechoic highly suspicious subcentimeter masses extending until the 2 to 3 o'clock position. The larger masses measure as follow; 2 o'clock position 10 cm from the nipple is a hypoechoic solid mass in the posterior aspect measuring 1.2 x 1.3 x 1.2 cm. This is highly suspicious for an additional satellite lesion. Ultrasound-guided biopsy can be performed if surgically indicated. 2:00 6 cm from the nipple is a hypoechoic lobulated irregular solid suspicious mass measuring 0.8 x 0.7 x 0.7 cm. The 2.9 cm x 2.5 cm x 2 cm oval area in the right breast most likely is fibroglandular tissue or a fibrous ridge and is at a low suspicion for malignancy. A surgical consult is recommended Patient underwent right simple mastectomy along with axillary sentinel lymph node biopsy on 01/09/2023. Pathology: A. Right breast, mastectomy: - Invasive ductal carcinoma, see synoptic report. - Ductal carcinoma in situ, solid and cribriform type, nuclear grade 3, with comedonecrosis. - Biopsy clip identified. B. Right breast, superior radial margin, excision: - Unremarkable fibroadipose tissue and skeletal muscle. C. Right sentinel lymph node, excision: - Two lymph nodes, negative for metastatic carcinoma (0/2). D.Right breast, lateral skin margin, excision: - Unremarkable skin and underlying tissue. SPECIMEN Procedure Total mastectomy Specimen Laterality Right TUMOR Tumor Site Upper outer quadrant Upper inner quadrant Histologic Type Invasive carcinoma of no special type (ductal) Histologic Grade (Charmco Histologic Score) Glandular (Acinar) / Tubular Differentiation Score 3 Nuclear Pleomorphism Score 2 Mitotic Rate Score 2 Overall Grade Grade 3 (scores of 8 or 9) Tumor Size Greatest dimension of largest invasive focus (Millimeters): 70 mm Ductal Carcinoma In Situ (DCIS) Present Architectural Patterns Cribriform Solid Nuclear Grade Grade III (high) Lymphatic and / or Vascular Invasion Not identified Treatment Effect in the Breast No known presurgical therapy MARGINS Margin Status for Invasive Carcinoma All margins negative for invasive carcinoma Distance from Invasive Carcinoma to Closest Margin Greater than: 7 mm Closest Margin(s) to Invasive Carcinoma Superior radial Margin Status for DCIS All margins negative for DCIS Distance from DCIS to Closest Margin Greater than: 5 mm REGIONAL LYMPH NODES Regional Lymph Node Status All regional lymph nodes negative for tumor Total Number of Lymph Nodes Examined (sentinel and non-sentinel) 2 Number of Gunpowder Nodes Examined 2 pTNM CLASSIFICATION (AJCC 8th Edition) Reporting of pT, pN, and (when applicable) pM categories is based on information available to the pathologist at the time the report is issued. As per the AJCC (Chapter 1, 8th Ed.) it is the managing physician s responsibility to establish the final pathologic stage based upon all pertinent information, including but potentially not limited to this pathology report. pT Category pT3 pN Category pN0 N Suffix (sn) SPECIAL STUDIES Estrogen Receptor (ER) Status Positive (greater than 10% of cells demonstrate nuclear positivity) Percentage of Cells with Nuclear Positivity 90 % Progesterone Receptor (PgR) Status Positive Percentage of Cells with Nuclear Positivity 40 % HER2 (by immunohistochemistry) Equivocal (Score 2+) Percentage of Cells with Uniform Intense Complete Membrane Staining Cannot be determined HER2 (by in situ hybridization) Negative (not amplified) She has painful neuropathy manifested as a burning sensation on the tops of the feet and balls of the feet. Oftentimes can keep her awake at night. She is unsteady on her feet and is prone to falling. PMH, medications and allergies personally reviewed by me today. Any changes documented in appropriate section. PHYSICAL EXAM: Vitals: Blood pressure 155/83, pulse 72, temperature 36.7 C (98 F), height 154.5 cm (5' 0.83 ), weight 78 kg (172 lb), SpO2 97 %. Well-appearing and in no acute distress. EYES: Sclerae are anicteric bilaterally. LYMPHATIC: There is no palpable cervical, supraclavicular, axillary adenopathy. RESPIRATORY: Inspiratory breath sounds are of normal intensity in all mccollum. No rales, wheezes or rhonchi. CARDIOVASCULAR: Rhythm is regular. BREAST: Daughter chaperoned. Right mastectomy site well healing incision. ABDOMEN: The abdomen is nondistended. Extremities: No swelling or edema. SKIN: No jaundice. ASSESSMENT/PLAN: (C50.211, Z17.0) Malignant neoplasm of upper-inner quadrant of right breast in female, estrogen receptor positive (HCC) (primary encounter diagnosis) Assessment: -pT3 pN0 M0 grade 3 ER/HI positive, HER2 nonamplified pathologic stage IIA invasive ductal carcinoma of the right breast. -Based on her age, comorbid conditions and functional status, not a candidate for adjuvant chemotherapy. -Discussed RT followed by AI therapy. Discussed the potential side effects of AI therapy. Also discussed plan for bisphosphonate administration during AI therapy. -Answered her and her daughter's questions to their satisfaction. Plan: -Has appointment with Dr. Barry this afternoon. -Office visit in about 8 weeks. I spent a total of 60 minutes on the date of the service which included preparing to see the patient, [id number] patient care, completing clinical documentation, obtaining and/or reviewing separately obtained history, performing a medically appropriate examination, counseling and educating the patient/family/caregiver, communicating with other HCPs (not separately reported), and communicating results to the patient/family/caregiver. Bobby Chowdhury DO documented in this encounter [facility] 01-26-2023 Note HNO ID: [id number] Author: Alex Danielle PA-C Service: ? Author Type: Physician Marketing Services Vice President Type: Progress Notes Filed: 01/26/2023 11:10 AM Note Text: This is a 77 year old female s/p a RIGHT mastectomy, RIGHT sentinel lymph node mapping and biopsy (No reconstruction) performed by Dr. Parkinson (Breast Surgeon) on 01/09/2023 . She is here today for drain removal.. RIGHT chest wall incision line is clean, dry and intact without signs or symptoms of infection The drain has been patent and draining less 30 CC's per day over the past 72 hours. Drain removed today without problems. Patient tolerated procedure well. Patient instructed on the signs and symptoms of infection including: redness, fever, draining, edema, pain. Patient instructed on the signs and symptoms of seroma including: edema and discomfort. Appointment made for 2 weeks for drain re-check. She will call with any questions or concerns in the interim. Alex Danielle PA-C [facility] 01-26-2023 Nurse Note Drain removal Last mammogram on: 11/10/22 bilateral Results: see report Electronically Signed By: Brandy Garay LPN In Department: GENERAL SURGERY REVIEW OF PATIENT HISTORY: OB History T0 L3 SAB0 IAB0 Ectopic0 Multiple0 Live Births0 FAMILY HISTORY Problem Relation Age of Onset Cancer Father =lung, liver , pancreas Heart Father Diabetes Maternal Grandmother Diabetes Paternal Grandfather Anesthesia Problems No Family History PAST MEDICAL HISTORY Diagnosis Date Breast cancer (HCC) 12/2022 right breast Dysplasia of cervix, unspecified 05/14/1991 Essential hypertension, benign Other and unspecified hyperlipidemia PMH - PAST MEDICAL HISTORY OF Diabetes Type 11 Dx one year ago Rosacea Symptomatic menopausal or female climacteric states Unspecified hypothyroidism PAST SURGICAL HISTORY Procedure Laterality Date CAUTERY CERVIX CRYOCAUTERY INITIAL/REPEAT 05/14/1991 for dysplasia CONIZATION CERVIX W/WO D&C RPR ELTRD EXC 08/12/1997 LEEP-Cervix Cervicitis only found CYSTOSCOPY,+URETEROSCOPY DILATION & CURETTAGE DX&/THER NONOBSTETRIC Dilation & curettage LIG/TRNSXJ FLP TUBE ABDL/VAG APPR UNI/BI Tubal ligation PAST SURGICAL HISTORY OF 2021 left wrist fx US BREAST NEEDLE CORE BIOPSY RT Right 12/2022 Social History Tobacco Use Smoking status: Former Types: Cigarettes Quit date: 05/14/1980 Years since quittin.7 Smokeless tobacco: Never Vaping Use Vaping Use: Never used Substance Use Topics Alcohol use: Yes Comment: one a Year Drug use: No documented in this encounter [facility] 01-26-2023 History of Present illness Narrative This is a 77 year old female s/p a RIGHT mastectomy, RIGHT sentinel lymph node mapping and biopsy (No reconstruction) performed by Dr. Parkinson (Breast Surgeon) on 01/09/2023 . She is here today for drain removal.. RIGHT chest wall incision line is clean, dry and intact without signs or symptoms of infection The drain has been patent and draining less 30 CC's per day over the past 72 hours. Drain removed today without problems. Patient tolerated procedure well. Patient instructed on the signs and symptoms of infection including: redness, fever, draining, edema, pain. Patient instructed on the signs and symptoms of seroma including: edema and discomfort. Appointment made for 2 weeks for drain re-check. She will call with any questions or concerns in the interim. Alex Danielle PA-C documented in this encounter [facility] 01-19-2023 Note HNO ID: [id number] Author: Alex Danielle PA-C Service: ? Author Type: Physician Marketing Services Vice President Type: Progress Notes Filed: 01/19/2023 3:14 PM Note Text: BREAST CANCER POST OPERATIVE FOLLOW-UP SERVICE DATE: 01/19/23 SURGERY DATE: 01/09/23 POSTOPERATIVE VISIT #1 SUBJECTIVE: Suleiman Ramsey is a 77 year old year old female who is s/p a RIGHT mastectomy, RIGHT sentinel lymph node mapping and biopsy (No reconstruction) performed by Dr. Parkinson (Breast Surgeon) on 01/09/2023 She reports > 30ml of daily drainage output from the drain for the past 2 days. She dreports some bruising that is improving, States the drain is irritating. Denies any redness, increase ib bruising, swelling or discharge from the incision. She denies any fever or chills. Pain of the surgical site is reported as moderate, but intermittent.. No family history of breast or ovarian cancer. OBJECTIVE: PHYSICAL EXAM: BREAST EXAMINATION: The patient was examined in the upright position. RIGHT breast surgically absent, no dominant chest wall masses, no skin changes. The horizontal incision is healing well. RASHAD drain intact with serosanguineous fluid noted in bulb. RIGHT axilla no palpable lymphadenopathy, no evidence of lymphedema, and limited range of motion (per surgeon instruction) Regional Lymph Nodes: There is no concerning supraclavicular, infraclavicular or cervical lymphadenopathy. SURGICAL PATHOLOGY: FINAL DIAGNOSIS A. Right breast, mastectomy: - Invasive ductal carcinoma, see synoptic report. - Ductal carcinoma in situ, solid and cribriform type, nuclear grade 3, with comedonecrosis. - Biopsy clip identified. B. Right breast, superior radial margin, excision: - Unremarkable fibroadipose tissue and skeletal muscle. C. Right sentinel lymph node, excision: - Two lymph nodes, negative for metastatic carcinoma (0/2). D.Right breast, lateral skin margin, excision: - Unremarkable skin and underlying tissue. JR 01/12/2023 Synoptic Report INVASIVE CARCINOMA OF THE BREAST: Resection 8th Edition - Protocol posted: 08/02/2022 INVASIVE CARCINOMA OF THE BREAST: EXCISION - All Specimens SPECIMEN Procedure Total mastectomy Specimen Laterality Right TUMOR Tumor Site Upper outer quadrant Upper inner quadrant Histologic Type Invasive carcinoma of no special type (ductal) Histologic Grade (Dean Histologic Score) Glandular (Acinar) / Tubular Differentiation Score 3 Nuclear Pleomorphism Score 2 Mitotic Rate Score 2 Overall Grade Grade 3 (scores of 8 or 9) Tumor Size Greatest dimension of largest invasive focus (Millimeters): 70 mm Ductal Carcinoma In Situ (DCIS) Present Architectural Patterns Cribriform Solid Nuclear Grade Grade III (high) Lymphatic and / or Vascular Invasion Not identified Treatment Effect in the Breast No known presurgical therapy MARGINS Margin Status for Invasive Carcinoma All margins negative for invasive carcinoma Distance from Invasive Carcinoma to Closest Margin Greater than: 7 mm Closest Margin(s) to Invasive Carcinoma Superior radial Margin Status for DCIS All margins negative for DCIS Distance from DCIS to Closest Margin Greater than: 5 mm REGIONAL LYMPH NODES Regional Lymph Node Status All regional lymph nodes negative for tumor Total Number of Lymph Nodes Examined (sentinel and non-sentinel) 2 Number of Gunpowder Nodes Examined 2 pTNM CLASSIFICATION (AJCC 8th Edition) Reporting of pT, pN, and (when applicable) pM categories is based on information available to the pathologist at the time the report is issued. As per the AJCC (Chapter 1, 8th Ed.) it is the managing physician?s responsibility to establish the final pathologic stage based upon all pertinent information, including but potentially not limited to this pathology report. pT Category pT3 pN Category pN0 N Suffix (sn) SPECIAL STUDIES Estrogen Receptor (ER) Status Positive (greater than 10% of cells demonstrate nuclear positivity) Percentage of Cells with Nuclear Positivity 90 % Progesterone Receptor (PgR) Status Positive Percentage of Cells with Nuclear Positivity 40 % HER2 (by immunohistochemistry) Equivocal (Score 2+) Percentage of Cells with Uniform Intense Complete Membrane Staining Cannot be determined HER2 (by in situ hybridization) Negative (not amplified) Testing Performed on Comment(s) Hat Band Attacher tumor block: A18 . ASSESSMENT: Suleiman Ramsey, 77 year old year old female, s/p a RIGHT mastectomy, RIGHT sentinel lymph node mapping and biopsy (No reconstruction) performed by Dr. Parkinson (Breast Surgeon) on 01/09/2023 Final pathology reports IDC, 7.0 cm (margins clear), Grade 3, 0/2 LN, -LVI ER+, HI+, HER2- PATHOLOGICAL STAGE RIGHT BREAST: p,T3,N0 POST OPERATIVE STATUS: Uncomplicated post-operative course, Patient initially presented on with (more content not included)... [facility] 01-19-2023 Nurse Note Post op Last mammogram on: 11/10/22 bilateral Results: see report Is the patient active on MyChart Yes Electronically Signed By: Brandy Garay LPN In Department: GENERAL SURGERY REVIEW OF PATIENT HISTORY: OB History T0 L3 SAB0 IAB0 Ectopic0 Multiple0 Live Births0 FAMILY HISTORY Problem Relation Age of Onset Cancer Father =lung, liver , pancreas Heart Father Diabetes Maternal Grandmother Diabetes Paternal Grandfather Anesthesia Problems No Family History PAST MEDICAL HISTORY Diagnosis Date Breast cancer (HCC) 12/2022 right breast Dysplasia of cervix, unspecified 05/14/1991 Essential hypertension, benign Other and unspecified hyperlipidemia PMH - PAST MEDICAL HISTORY OF Diabetes Type 11 Dx one year ago Rosacea Symptomatic menopausal or female climacteric states Unspecified hypothyroidism PAST SURGICAL HISTORY Procedure Laterality Date CAUTERY CERVIX CRYOCAUTERY INITIAL/REPEAT 05/14/1991 for dysplasia CONIZATION CERVIX W/WO D&C RPR ELTRD EXC 08/12/1997 LEEP-Cervix Cervicitis only found CYSTOSCOPY,+URETEROSCOPY DILATION & CURETTAGE DX&/THER NONOBSTETRIC Dilation & curettage LIG/TRNSXJ FLP TUBE ABDL/VAG APPR UNI/BI Tubal ligation PAST SURGICAL HISTORY OF 2021 left wrist fx US BREAST NEEDLE CORE BIOPSY RT Right 12/2022 Social History Tobacco Use Smoking status: Former Types: Cigarettes Quit date: 05/14/1980 Years since quittin.7 Smokeless tobacco: Never Vaping Use Vaping Use: Never used Substance Use Topics Alcohol use: Yes Comment: one a Year Drug use: No documented in this encounter [facility] 01-19-2023 History of Present illness Narrative BREAST CANCER POST OPERATIVE FOLLOW-UP SERVICE DATE: 01/19/23 SURGERY DATE: 01/09/23 POSTOPERATIVE VISIT #1 SUBJECTIVE: Suleiman Ramsey is a 77 year old year old female who is s/p a RIGHT mastectomy, RIGHT sentinel lymph node mapping and biopsy (No reconstruction) performed by Dr. Parkinson (Breast Surgeon) on 01/09/2023 She reports > 30ml of daily drainage output from the drain for the past 2 days. She dreports some bruising that is improving, States the drain is irritating. Denies any redness, increase ib bruising, swelling or discharge from the incision. She denies any fever or chills. Pain of the surgical site is reported as moderate, but intermittent.. No family history of breast or ovarian cancer. OBJECTIVE: PHYSICAL EXAM: BREAST EXAMINATION: The patient was examined in the upright position. RIGHT breast surgically absent, no dominant chest wall masses, no skin changes. The horizontal incision is healing well. RASHAD drain intact with serosanguineous fluid noted in bulb. RIGHT axilla no palpable lymphadenopathy, no evidence of lymphedema, and limited range of motion (per surgeon instruction) Regional Lymph Nodes: There is no concerning supraclavicular, infraclavicular or cervical lymphadenopathy. SURGICAL PATHOLOGY: FINAL DIAGNOSIS A. Right breast, mastectomy: - Invasive ductal carcinoma, see synoptic report. - Ductal carcinoma in situ, solid and cribriform type, nuclear grade 3, with comedonecrosis. - Biopsy clip identified. B. Right breast, superior radial margin, excision: - Unremarkable fibroadipose tissue and skeletal muscle. C. Right sentinel lymph node, excision: - Two lymph nodes, negative for metastatic carcinoma (0/2). D.Right breast, lateral skin margin, excision: - Unremarkable skin and underlying tissue. JR 01/12/2023 Synoptic Report INVASIVE CARCINOMA OF THE BREAST: Resection 8th Edition - Protocol posted: 08/02/2022 INVASIVE CARCINOMA OF THE BREAST: EXCISION - All Specimens SPECIMEN Procedure Total mastectomy Specimen Laterality Right TUMOR Tumor Site Upper outer quadrant Upper inner quadrant Histologic Type Invasive carcinoma of no special type (ductal) Histologic Grade (Dean Histologic Score) Glandular (Acinar) / Tubular Differentiation Score 3 Nuclear Pleomorphism Score 2 Mitotic Rate Score 2 Overall Grade Grade 3 (scores of 8 or 9) Tumor Size Greatest dimension of largest invasive focus (Millimeters): 70 mm Ductal Carcinoma In Situ (DCIS) Present Architectural Patterns Cribriform Solid Nuclear Grade Grade III (high) Lymphatic and / or Vascular Invasion Not identified Treatment Effect in the Breast No known presurgical therapy MARGINS Margin Status for Invasive Carcinoma All margins negative for invasive carcinoma Distance from Invasive Carcinoma to Closest Margin Greater than: 7 mm Closest Margin(s) to Invasive Carcinoma Superior radial Margin Status for DCIS All margins negative for DCIS Distance from DCIS to Closest Margin Greater than: 5 mm REGIONAL LYMPH NODES Regional Lymph Node Status All regional lymph nodes negative for tumor Total Number of Lymph Nodes Examined (sentinel and non-sentinel) 2 Number of Gunpowder Nodes Examined 2 pTNM CLASSIFICATION (AJCC 8th Edition) Reporting of pT, pN, and (when applicable) pM categories is based on information available to the pathologist at the time the report is issued. As per the AJCC (Chapter 1, 8th Ed.) it is the managing physician s responsibility to establish the final pathologic stage based upon all pertinent information, including but potentially not limited to this pathology report. pT Category pT3 pN Category pN0 N Suffix (sn) SPECIAL STUDIES Estrogen Receptor (ER) Status Positive (greater than 10% of cells demonstrate nuclear positivity) Percentage of Cells with Nuclear Positivity 90 % Progesterone Receptor (PgR) Status Positive Percentage of Cells with Nuclear Positivity 40 % HER2 (by immunohistochemistry) Equivocal (Score 2+) Percentage of Cells with Uniform Intense Complete Membrane Staining Cannot be determined HER2 (by in situ hybridization) Negative (not amplified) Testing Performed on Comment(s) Hat Band Attacher tumor block: A18 . ASSESSMENT: Suleiman Ramsey, 77 year old year old female, s/p a RIGHT mastectomy, RIGHT sentinel lymph node mapping and biopsy (No reconstruction) performed by Dr. Parkinson (Breast Surgeon) on 01/09/2023 Final pathology reports IDC, 7.0 cm (margins clear), Grade 3, 0/2 LN, -LVI ER+, HI+, HER2- PATHOLOGICAL STAGE RIGHT BREAST: p,T3,N0 POST OPERATIVE STATUS: Uncomplicated post-operative course, Patient initially presented on with a RIGHT breast 6.8 cm span of disease @ 1:00. LN appear normal. Bx (ribbon clip) shows IDC, NG 2. ER+HI+HER2- [id number] PLAN Pathology report reviewed by (Breast Surgeon) and with the patient. All questions were answered and she had no further concerns. Instructions for wound management, the signs and symptoms of infection, and seroma development were reviewed with the patient. will follow-up with Dr. Chowdhury (Medical Oncologist) as scheduled on 02/02/2023, to discuss adjuvant systemic therapy. She will follow-up with Dr. Dwight Barry (Radiation Oncologist) as scheduled on 02/02/2023, to discuss adjuvant local therapy. Patient will schedule a Breast Rehab consult with an occupational therapist for lymphedema prevention strategies and education on range of motion management. Prescription for Breast prosthesis/bras will be provided, as well as list of merchants, once the drains are removed from the surgical site. Ms Ramsey will follow-up with us for drain removal as well as for a one month seroma/wound check. She has our names and numbers to stay in touch if she has any questions, concerns or problems in the interim. Alex Danielle PA-C documented in this encounter [facility] 01-11-2023 Miscellaneous Notes BREAST HEALTH NURSE POST-OP PHONE CONTACT: Suleiman Ramsey was contacted via telephone as follow-up from recent breast surgery. I spoke with her daughter as pt was sleeping at the time of this call. TOPICS ADDRESSED: PAIN ASSESSMENT: Yes LOCATION: surgical incisions PAIN CHARACTER: aching MEDICATIONS: Took one [place] last night at HS, otherwise Tylenol prn EMOTIONAL ASSESSMENT: appropriate. ADJUSTMENT TO DIAGNOSIS AND TREATMENT: reflecting understanding. DRAIN CARE: 1 RASHAD drain patent with red drainage. INCISION SITE: SÁNCHEZ wrap intact. Plans on showering later today. NUTRITION: food intake: adequate. fluid intake: adequate. ACTIVITY AND EXERCISE: Understands ROM limitations with drain in place. Teach Back method of education performed. The patient verbalized understanding. FOLLOW UP: Appt scheduled with NOVA Armijo documented in this encounter [facility] 01-10-2023 Note Education (GENSF) SULEIMAN RAMSEY ([id number]) 1945 F Date Time Provider Department 01/10/23 RADHA BOWERS During your visit today, we recorded the following information about you: Radha Bowers RN 01/10/2023 9:57 AM Signed Visit made to the bedside, post-op day 1. Patient sitting up in bed eating breakfast. She reports feeling well this morning, minimal discomfort. Patient hoping to go home today, eldest daughter is primary caregiver. Reviewed basic home going instructions, including: pain control, bowel management, ROM/activity, showering, incision care, signs/sx infection, nutrition/hydration, drain care (RASHAD x 1). 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 Patient has SÁNCHEZ wrap for dressing. Patient has gift bag and drain pouch. Breast nurse navigator will follow-up tomorrow by phone for post-op assessment. All questions answered. Radha Bowers RN Allergies As of Date: 01/10/2023 (No Known Allergies) Date Reviewed: 01/09/2023 Reviewed by: Cathy iVlla RN - Fully Assessed Reason for Visit: Education Of Patient/family [904] Prescriptions as of 01/10/2023 - cefADROxil (DURICEF) 500 mg capsule Take 1 capsule by mouth every 12 hours for 10 days. - acetaminophen (TYLENOL EXTRA STRENGTH) 500 mg tablet Take 2 tablets by mouth every 6 hours as needed for pain for up to 14 days. - ibuprofen (MOTRIN) 600 mg tablet Take 1 tablet by mouth every 6 hours as needed for pain for up to 14 days. - HYDROcodone-acetaminophen (NORCO) 5-325 mg per tablet Take 1 tablet by mouth every 8 hours as needed for pain. - cyanocobalamin (VITAMIN B-12) 1,000 mcg tab Take 2,000 mcg by mouth once daily. - Ibuprofen 200 mg cap Take 200 mg by mouth every 6 hours as needed for pain. - rosuvastatin (CRESTOR) 20 mg tablet Take 1 tablet by mouth once daily. - levothyroxine (SYNTHROID) 150 mcg tablet Take 1 tablet by mouth once daily. - olmesartan (BENICAR) 40 mg tablet - Pregabalin (LYRICA) 200 mg capsule Take 200 mg by mouth twice daily. - metFORMIN ER (GLUCOPHAGE XR) 500 mg 24 hr tablet - insulin glargine,hum.rec.anlog (TOUJEO SOLOSTAR U-300 INSULIN SUBCUTANEOUS) - HUMALOG KWIKPEN INSULIN 200 unit/mL (3 mL) injection - insulin glargine U-300 conc (TOUJEO SOLOSTAR U-300 INSULIN) 300 unit/mL (1.5 mL) INJECT 70 UNITS SUBCUTANEOUSLY AT BEDTIME - Alpha Lipoic Acid 100 mg cap - cholecalciferol, vitamin D3, (D3-2000 ORAL) - diphenhydrAMINE (BENADRYL) 25 mg capsule Take by mouth. - Magnesium 200 mg tab - VITAMIN B COMPLEX ORAL Take by mouth once daily. - metroNIDAZOLE (METROGEL) 1 % gel .Apply to entire affected area(s) of rosacea on face QDay as directed and can increase up to bid prn flaring or as needed and tolerated. - tretinoin (RETIN-A) 0.025 % topical cream Apply thin layer to face at entire sun-damaged skin area(s) every other day (qoday) up to once per day (qday) as directed and tolerated in the evening (1/2 hr after washing and at least 1/2 hr before bedtime) and wash off face in the AM before going outside. Beware of potential excess sun sensitivity, use sun protection. - hydrocortisone 2.5 % lotion Apply to affected spots and/or area(s) of rash or irritated skin or flared Acne Rosacea on face and neck selectively qday to bid until clear as directed and tolerated. AVOID eyes and eyelids. NB: Needs 3-month supply. Facility-Administered Medications as of 01/10/2023 - pregabalin 100 mg cap(s) (LYRICA) - rosuvastatin 20 mg tab(s) (CRESTOR) - levothyroxine (SYNTHROID) tab(s) 150 mcg - melatonin 1 mg tab(s) - ibuprofen 600 mg tab(s) (MOTRIN) - HYDROcodone 5 mg - acetaminophen 325 mg tablet (NORCO) - dextrose 40 % 15 g - glucagon 1 mg injection - dextrose 10% iv bolus - insulin lispro injection (rapid acting) (HumaLOG) - insulin lispro injection (rapid acting) (HumaLOG) - ceFAZolin iv piggyback 2 g in D5W (iso-osmotic) 100 mL (ANCEF) - valsartan 160 mg tab(s) (DIOVAN) - insulin glargine 56 Units pen (long acting) Problem List As Of Date 01/10/2023 Noted Resolved Rosacea [L71.9] 08/31/2005 06/09/2012 Seborrheic dermatitis, unspecified [L21.9] 08/31/2005 06/09/2012 TELANG///CAPILLARY DIS NEC/NOS [I78.9] 08/16/2006 06/09/2012 ACTINIC DAMAGE//CHR SOLAR SKIN DAMAGE NOS [L57.*08/16/2006 06/09/2012 SOLAR LENTIGINES///DYSCHROMIA OTHER [L81.9] 08/16/2006 06/09/2012 Contact dermatitis and other eczema, due to uns*08/16/2006 06/09/2012 SYMPTOMATIC FEMALE CLIMACTERIC STATE [N95.1] 02/06/2007 ATROPHIC VAGINITIS [N95.2] 02/06/2007 LUMP OR MASS IN BREAST [N63.0] 02/06/2007 NONINFLAM DIS VULVA NOS [N90.9] 02/06/2007 Actinic keratosis [L57.0] 10/26/2008 06/09/2012 Other seborrheic dermatitis [L21.8] 10/26/2008 06/09/2012 Viral warts, unspecified [B07.9] 10/26/2008 06/09/2012 Minocycline pigmentation [L81.9, T36.4X5A] 09/21/2010 06/09/2012 Depre (more content not included)... [facility] 01-10-2023 Note HNO ID: [id number] Author: Ivonne Anderson RN Service: Nursing Author Type: Registered Nurse Type: Nursing Progress Note Filed: 01/10/2023 11:03 AM Note Text: Other: 1100- RASHAD teaching provided to pt and family both verbalize understanding. [facility] 01-10-2023 Note HNO ID: [id number] Author: Radha Bowers RN Service: ? Author Type: Registered Nurse Type: Progress Notes Filed: 01/10/2023 9:57 AM Note Text: Visit made to the bedside, post-op day 1. Patient sitting up in bed eating breakfast. She reports feeling well this morning, minimal discomfort. Patient hoping to go home today, eldest daughter is primary caregiver. Reviewed basic home going instructions, including: pain control, bowel management, ROM/activity, showering, incision care, signs/sx infection, nutrition/hydration, drain care (RASHAD x 1). 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 Patient has SÁNCHEZ wrap for dressing. Patient has gift bag and drain pouch. Breast nurse navigator will follow-up tomorrow by phone for post-op assessment. All questions answered. Radha Bowers, ROBBY [facility] 01-10-2023 Note HNO ID: [id number] Author: Ok Connor MD Service: General Surgery Author Type: Resident Type: Progress Notes Filed: 01/10/2023 8:41 AM Note Text: PROGRESS NOTE - General Surgery ASSESSMENT AND PLAN Suleiman Ramsey is a 77 year old female with history of R breast invasive ductal CA who was admitted on 01/09/2023 for R mastectomy with SLNB with Micki Muir DO. POD 1. - Doing well post-operatively - Plan to DC today Plan to discussed with Micki Muir DO. Ok Connor MD General Surgery Resident SUBJECTIVE Overnight Events: Acute events overnight: none. Pain: well controlled. Slept well Drains: 120 overnight in last 24 hours OBJECTIVE Physical Exam: BP 136/52 Pulse 70 Temp 36.8 ?C (98.2 ?F) (Oral) Resp 17 Ht 154.9 cm (5' 1 ) Wt 79.3 kg (174 lb 14.4 oz) SpO2 94% BMI 33.05 kg/m? Body mass index is 33.05 kg/m?. GENERAL: awake, alert, in no acute distress SKIN: non jaundice, warm, dry LUNGS: nonlabored breathing on RA, no shortness of breath CARDIAC: warm and well perfused throughout, regular rate Breast: Soft, non-tender, no hematoma/fluid collection, flat-chest, Drain SS, incision C/D/I with healthy skin flaps. Labs: CBC, BMP, MG, PHOS Recent Labs 01/05/23 1519 WBC 8.56 HB 11.9 HCT 35.8* PLT 252 NA 140 K 4.0 CHLOR 101 CO2 25 BUN 14 CREAT 0.99* GLUC 295* CA 10.1 Liver Function, Amylase, AND Lipase Recent Labs 01/05/23 1519 TPROT 7.3 ALB 4.2 ALT 19 AST 50* ALKPHOS 80 TBILI 0.6 Coags No results for input(s): APTT , PT , INR in the last 05918 hours. Intake and Output: Date 01/09/23699 - 01/10/23 0601/10/23699 - 01/11/23 0659 Shift 2678-4242 2853-3104 2734-4292 24 Hour Total 9174-0537 1023-4902 1077-8467 24 Hour Total INTAKE IV 3491 574 9467 Volume (mL) (lactated ringers iv infusion) 1200 1200 Volume (mL) (lactated ringers iv infusion) 700 700 Shift Total 7491 637 0691 OUTPUT Urine Urine Not Saved. 2 x 1 x 3 x Tubes 60 60 120 Drain/Tube Output (Drain/Tube 01/09/23 1403 Yifan Talbert Right Lateral Breast Drain #1) 60 60 120 Shift Total 60 60 120 Weight (kg) 79.3 79.3 79.3 79.3 79.3 79.3 79.3 Current Medications: Current Facility-Administered Medications Medication Dose Route Frequency pregabalin 100 mg cap(s) (LYRICA) 100 mg ORAL BID rosuvastatin 20 mg tab(s) (CRESTOR) 20 mg ORAL DAILY levothyroxine (SYNTHROID) tab(s) 150 mcg 150 mcg ORAL DAILY (6 AM) melatonin 1 mg tab(s) 1 mg ORAL DAILY (8 PM) ibuprofen 600 mg tab(s) (MOTRIN) 600 mg ORAL q 6 H PRN HYDROcodone 5 mg - acetaminophen 325 mg tablet (NORCO) 1-2 tablet ORAL q 6 H PRN dextrose 40 % 15 g 15 g ORAL PRN Or glucagon 1 mg injection 1 mg INTRAMUSCULAR PRN Or dextrose 10% iv bolus 12.5 g INTRAVENOUS PRN insulin lispro injection (rapid acting) (HumaLOG) SUBCUTANEOUS w MEALS insulin lispro injection (rapid acting) (HumaLOG) SUBCUTANEOUS AT BEDTIME ceFAZolin iv piggyback 2 g in D5W (iso-osmotic) 100 mL (ANCEF) 2 g INTRAVENOUS q 8 HR valsartan 160 mg tab(s) (DIOVAN) 160 mg ORAL DAILY insulin glargine 56 Units pen (long acting) 56 Units SUBCUTANEOUS AT BEDTIME [facility] 01-10-2023 History of Present illness Narrative Visit made to the bedside, post-op day 1. Patient sitting up in bed eating breakfast. She reports feeling well this morning, minimal discomfort. Patient hoping to go home today, eldest daughter is primary caregiver. Reviewed basic home going instructions, including: pain control, bowel management, ROM/activity, showering, incision care, signs/sx infection, nutrition/hydration, drain care (RASHAD x 1). 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 Patient has SÁNCHEZ wrap for dressing. Patient has gift bag and drain pouch. Breast nurse navigator will follow-up tomorrow by phone for post-op assessment. All questions answered. Radha Bowers RN documented in this encounter [facility] 01-10-2023 Miscellaneous Notes Scheduled with daughter Please schedule her as a new to see either me or Dr. Rivers in 2-3 weeks--first available in that time frame. Will also need consultation with Dr. Barry as well. Same day appointments if able. Bobby Chowdhury DO documented in this encounter [facility] 01-09-2023 Note HNO ID: [id number] Author: Talat Valdez SRNA Service: ? Author Type: Student Type: Anesthesia Procedure Notes Filed: 01/09/2023 12:34 PM Note Text: ANESTHESIOLOGY PROCEDURE NOTE Airway General Information Procedure Start Time/Medication Administration: 01/09/2023 12:27 PM Patient location during procedure: OR Timeout Performed Pre-procedure: timeout performed Consent Obtained: Yes Patient identity confirmed: arm band and patient Staffing DIGITAL ASSISTANT: Susan Foy APRN.DIGITAL ASSISTANT SRNA: Talat Valdez SRNA Performed by: MAMTA and DIGITAL ASSISTANT Indications and Patient Condition Indications for airway management: anesthesia and airway protection Preoxygenated: yes anesthesia circuit Patient position: sniffing Method: asleep Difficult Mask: No Final Airway Details Final airway type: supraglottic airway Number of attempts at approach: 1 Final Supraglottic Airway: i-gel Size 4 Seal Adequate: yes Failed airway: no Airway not difficult SIGNATURE: MAMTA Cr PATIENT NAME: Suleiman Ramsey DATE: January 09, 2023 TIME: 12:33 PM CSN: [id number] [facility] 01-09-2023 Note Education (OLESYA) SULEIMAN RAMSEY ([id number]) 1945 F Date Time Provider Department 01/09/23 RADHA BOWERS During your visit today, we recorded the following information about you: Radha Bowers RN 01/09/2023 9:35 AM Signed BREAST HEALTH NURSE POST-OPERATIVE DISCHARGE INSTRUCTIONS Prior to the patient's discharge from the hospital, the breast health nurse initiated post-op education with the patient. Visit made to the pre-op area, patient is in discussion with surgeon and anesthesia at this time. Gift bag placed with patient belongings. The patient was given the following: Heart shaped pillow -Yes Meditative book -Yes Support group information -Yes Patient will be contacted by phone to evaluate for further educational and emotional support needs. Radha Bowers RN Allergies As of Date: 01/09/2023 (No Known Allergies) Date Reviewed: 01/09/2023 Reviewed by: Heather Anderson RN - Fully Assessed Reason for Visit: Education Of Patient/family [904] Prescriptions as of 01/09/2023 - cyanocobalamin (VITAMIN B-12) 1,000 mcg tab Take 2,000 mcg by mouth once daily. - Ibuprofen 200 mg cap Take 200 mg by mouth every 6 hours as needed for pain. - rosuvastatin (CRESTOR) 20 mg tablet Take 1 tablet by mouth once daily. - levothyroxine (SYNTHROID) 150 mcg tablet Take 1 tablet by mouth once daily. - olmesartan (BENICAR) 40 mg tablet - Pregabalin (LYRICA) 200 mg capsule Take 200 mg by mouth twice daily. - metFORMIN ER (GLUCOPHAGE XR) 500 mg 24 hr tablet - insulin glargine,hum.rec.anlog (TOUJEO SOLOSTAR U-300 INSULIN SUBCUTANEOUS) - HUMALOG KWIKPEN INSULIN 200 unit/mL (3 mL) injection - insulin glargine U-300 conc (TOUJEO SOLOSTAR U-300 INSULIN) 300 unit/mL (1.5 mL) INJECT 70 UNITS SUBCUTANEOUSLY AT BEDTIME - Alpha Lipoic Acid 100 mg cap - cholecalciferol, vitamin D3, (D3-2000 ORAL) - diphenhydrAMINE (BENADRYL) 25 mg capsule Take by mouth. - Magnesium 200 mg tab - VITAMIN B COMPLEX ORAL Take by mouth once daily. - metroNIDAZOLE (METROGEL) 1 % gel .Apply to entire affected area(s) of rosacea on face QDay as directed and can increase up to bid prn flaring or as needed and tolerated. - tretinoin (RETIN-A) 0.025 % topical cream Apply thin layer to face at entire sun-damaged skin area(s) every other day (qoday) up to once per day (qday) as directed and tolerated in the evening (1/2 hr after washing and at least 1/2 hr before bedtime) and wash off face in the AM before going outside. Beware of potential excess sun sensitivity, use sun protection. - hydrocortisone 2.5 % lotion Apply to affected spots and/or area(s) of rash or irritated skin or flared Acne Rosacea on face and neck selectively qday to bid until clear as directed and tolerated. AVOID eyes and eyelids. NB: Needs 3-month supply. Facility-Administered Medications as of 01/09/2023 - lidocaine (PF) 10 mg/mL (1 %) 1-2 mg injection (XYLOCAINE) - lactated ringers iv infusion - NaCl 0.9% iv flush bag - ceFAZolin iv piggyback 2 g in D5W (iso-osmotic) 100 mL (ANCEF) Problem List As Of Date 01/09/2023 Noted Resolved Rosacea [L71.9] 08/31/2005 06/09/2012 Seborrheic dermatitis, unspecified [L21.9] 08/31/2005 06/09/2012 TELANG///CAPILLARY DIS NEC/NOS [I78.9] 08/16/2006 06/09/2012 ACTINIC DAMAGE//CHR SOLAR SKIN DAMAGE NOS [L57.*08/16/2006 06/09/2012 SOLAR LENTIGINES///DYSCHROMIA OTHER [L81.9] 08/16/2006 06/09/2012 Contact dermatitis and other eczema, due to uns*08/16/2006 06/09/2012 SYMPTOMATIC FEMALE CLIMACTERIC STATE [N95.1] 02/06/2007 ATROPHIC VAGINITIS [N95.2] 02/06/2007 LUMP OR MASS IN BREAST [N63.0] 02/06/2007 NONINFLAM DIS VULVA NOS [N90.9] 02/06/2007 Actinic keratosis [L57.0] 10/26/2008 06/09/2012 Other seborrheic dermatitis [L21.8] 10/26/2008 06/09/2012 Viral warts, unspecified [B07.9] 10/26/2008 06/09/2012 Minocycline pigmentation [L81.9, 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.4X5A] 09/21/2010 06/09/2012 Depressive disorder, not elsewhere classified [*04/21/2011 Cystocele, midline [N81.11] 04/21/2011 Contact dermatitis and other eczema due to dete*06/09/2012 Rosacea [L71.9] 06/09/2012 Postinflammatory skin changes [R23.8] 06/09/2012 Other seborrheic dermatitis [L21.8] 06/09/2012 Telangiectasia [I78.1] 06/09/2012 Xerosis cutis [L85.3] 06/09/2012 Actinic skin damage [L57.8] 06/09/2012 Neuropathic pain of foot [M79.2] 06/09/2012 Hyperpigmentation due to minocycline [L81.8, T3*06/09/2012 Malignant neoplasm of upper-inner quadrant of r*12/22/2022 Essential hypertension, benign [I10] 01/05/2023 Pure hypercholesterolemia [E78.00] 01/05/2023 Unspecified hypothyroidism [E03.9] 01/05/2023 Diabetes (HCC) [E11.9] 01/05/2023 LBBB (left bundle branch block) [I44.7] 01/05/2023 Encounter Status:Closed by RADHA BOWERS on 01/09/23 [facility] 01-09-2023 Note HNO ID: [id number] Author: Radha Bowers RN Service: ? Author Type: Registered Nurse Type: Progress Notes Filed: 01/09/2023 9:35 AM Note Text: BREAST HEALTH NURSE POST-OPERATIVE DISCHARGE INSTRUCTIONS Prior to the patient's discharge from the hospital, the breast health nurse initiated post-op education with the patient. Visit made to the pre-op area, patient is in discussion with surgeon and anesthesia at this time. Gift bag placed with patient belongings. The patient was given the following: Heart shaped pillow -Yes Meditative book -Yes Support group information -Yes Patient will be contacted by phone to evaluate for further educational and emotional support needs. Radha Bowers RN [facility] 01-09-2023 Note HNO ID: [id number] Author: Truong Richards, Conjecta Service: Nuclear Medicine Author Type: Geographic Analyst Type: Progress Notes Filed: 01/09/2023 12:46 PM Note Text: RADIOLOGY SERVICE PROGRESS NOTE SERVICE DATE: 01/09/2023 SERVICE TIME: 12:44 PM PATIENT IDENTITY VERIFICATION COMPLETED USING TWO (2) STANDARD IDENTIFIERS: Name and Date of confirmed by patient verbally FALL SCREENING: Has the patient had 2 falls in the last year or 1 fall with injury or currently using an Ambulatory Assistive Device (Walker, Cane, Wheelchair, Crutches, etc.)? No PATIENT GENDER DATA: .female : No ALLERGIES: Reviewed and unchanged MEDICATIONS REVIEWED: No PATIENT RELEVANT IMPLANT DATA REVIEWED: Not Applicable CREATININE: Creatinine Date Value Ref Range Status 01/05/2023 0.99 (H) 0.58 - 0.96 mg/dL Final Estimated Glomerular Filtration Rate Date Value Ref Range Status 01/05/2023 59 (L) >=60 mL/min/1.73m? Final Comment: Estimated Glomerular Filtration Rate (eGFR) is calculated using the 2020 CKD-EPI creatinine equation. This equation utilizes serum creatinine, sex, and age as parameters. The creatinine assay has traceable calibration to isotope dilution-mass spectrometry. Refer to KDIGO guidelines for clinical interpretation. In patients with unstable renal function, e.g. those with acute kidney injury, the eGFR may not accurately reflect actual GFR. P.O.C.T. RESULTS: N/A January 09, [address] PERFORMED: No IV SITE: Ambulatory: Not applicable POST EXAM PIV STATUS: Not applicable PROCEDURE TYPE: NM INJECT: SENTINEL LYMPH NODE INJECTION TO RIGHT BREAST BY DR. PARKINSON. 400 microcuries Tc99m Lymphoseek. No other medications given.. ADMINISTRATION TIME: 1233 PATIENT DISCHARGED TO: Ambulatory patient, left [place] department area. A Diagnostic radioactive procedure has taken place, with no further precautions necessary other than routine body substance precautions. More information regarding radiation safety can be found using this link: [email or web address] [email or web address] SIGNATURE: Truong Richards Conjecta PATIENT NAME: Suleiman Ramsey DATE: January 09, 2023 TIME: 12:44 PM PAGER/CONTACT #: [facility] 01-09-2023 History of Present illness Narrative BREAST HEALTH NURSE POST-OPERATIVE DISCHARGE INSTRUCTIONS Prior to the patient's discharge from the hospital, the breast health nurse initiated post-op education with the patient. Visit made to the pre-op area, patient is in discussion with surgeon and anesthesia at this time. Gift bag placed with patient belongings. The patient was given the following: Heart shaped pillow -Yes Meditative book -Yes Support group information -Yes Patient will be contacted by phone to evaluate for further educational and emotional support needs. Radha Bowers RN documented in this encounter [facility] 01-09-2023 History of Present illness Narrative RADIOLOGY SERVICE PROGRESS NOTE SERVICE DATE: 01/09/2023 SERVICE TIME: 12:44 PM PATIENT IDENTITY VERIFICATION COMPLETED USING TWO (2) STANDARD IDENTIFIERS: Name and Date of confirmed by patient verbally FALL SCREENING: Has the patient had 2 falls in the last year or 1 fall with injury or currently using an Ambulatory Assistive Device (Walker, Cane, Wheelchair, Crutches, etc.)? No PATIENT GENDER DATA: .female : No ALLERGIES: Reviewed and unchanged MEDICATIONS REVIEWED: No PATIENT RELEVANT IMPLANT DATA REVIEWED: Not Applicable CREATININE: Creatinine Date Value Ref Range Status 01/05/2023 0.99 (H) 0.58 - 0.96 mg/dL Final Estimated Glomerular Filtration Rate Date Value Ref Range Status 01/05/2023 59 (L) >=60 mL/min/1.73m Final Comment: Estimated Glomerular Filtration Rate (eGFR) is calculated using the 2020 CKD-EPI creatinine equation. This equation utilizes serum creatinine, sex, and age as parameters. The creatinine assay has traceable calibration to isotope dilution-mass spectrometry. Refer to KDIGO guidelines for clinical interpretation. In patients with unstable renal function, e.g. those with acute kidney injury, the eGFR may not accurately reflect actual GFR. P.O.C.T. RESULTS: N/A January 09, [address] PERFORMED: No IV SITE: Ambulatory: Not applicable POST EXAM PIV STATUS: Not applicable PROCEDURE TYPE: NM INJECT: SENTINEL LYMPH NODE INJECTION TO RIGHT BREAST BY DR. PARKINSON. 400 microcuries Tc99m Lymphoseek. No other medications given.. ADMINISTRATION TIME: 1233 PATIENT DISCHARGED TO: Ambulatory patient, left [place] department area. A Diagnostic radioactive procedure has taken place, with no further precautions necessary other than routine body substance precautions. More information regarding radiation safety can be found using this link: [email or web address] %[email or web address] SIGNATURE: Truong Richards Conjecta PATIENT NAME: Suleiman Ramsey DATE: January 09, 2023 TIME: 12:44 PM PAGER/CONTACT #: documented in this encounter [facility] 01-08-2023 Nurse Note AMBULATORY PATIENT EDUCATION NOTE TOPIC: RIGHT simple mastectomy, RIGHT sentinel lymph node mapping and biopsy READINESS TO LEARN COGNITIVE ABILITY: Alert and oriented MOTIVATION TO LEARN: Interested FAMILY SUPPORT: Low - Inconsistent family involvement INSTRUCTION PROVIDED TO: Daughter PATIENT LEARNS BEST BY: Multiple Methods FACTORS AFFECTING LEARNING: None PHYSICAL LIMITATIONS AFFECTING LEARNING: None LEARNING RESPONSE DIAGNOSIS: C50.211 METHOD OF INSTRUCTION: Individual instruction Written instruction - handouts Verbal instruction PATIENT / FAMILY RESPONSE: Verbalizes understanding of: DRAIN CARE- Correct procedure to perform drain care INFECTION MANAGEMENT-Signs and symptoms of an infection and importance of contacting the physician MEDICATION PRESCRIBED-Accurate knowledge of prescribed medication prior to discharge MEDICATION ROUTE-Correct route for administration of the prescribed medication MEDICATION SIDE EFFECTS-Side effects associated with the medication that warrant a call to the physician PAIN MANAGEMENT-Effective strategies to manage pain in addition to pain medication PHYSICAL RESTRICTIONS-Physical restrictions and recommendations after discharge from the hospital POST-OPERATIVE INSTRUCTIONS-Correct actions to take to reduce postoperative complications PRE-OPERATIVE INSTRUCTIONS-Correct action to take to follow pre-operative instructions PATIENT SAFETY PRINCIPLES VTE prevention measures VTE prevention measures but refuses to follow prevention plan/orders WORSENING CONDITION-Signs and symptoms of a worsening condition that warrant a call to the physician FOLLOW-UP PLAN: Patient instructed to call with any further issues SUPPLEMENTAL MATERIAL: Your Surgical Guide REFERRAL (RECOMMENDATION): None Electronically Signed By: Brandy Garay LPN In Department: [facility] Time spent on patient education: 20 minutes. documented in this encounter [facility] 01-08-2023 Note Education ([facility]) SULEIMAN RAMSEY ([id number]) 1945 F Date Time Provider Department 8/28/23 BRANDY GARAY [facility] Reason for Visit: Patient Education [91] Cmt: RIGHT simple mastectomy, RIGHT sentinel lymph node mapping and biopsy Visit Notes: >> Brandy Garay LPN [facility] Jan 08, 2023 2:42 PM Status: Signed AMBULATORY PATIENT EDUCATION NOTE TOPIC: RIGHT simple mastectomy, RIGHT sentinel lymph node mapping and biopsy READINESS TO LEARN COGNITIVE ABILITY: Alert and oriented MOTIVATION TO LEARN: Interested FAMILY SUPPORT: Low - Inconsistent family involvement INSTRUCTION PROVIDED TO: Daughter PATIENT LEARNS BEST BY: Multiple Methods FACTORS AFFECTING LEARNING: None PHYSICAL LIMITATIONS AFFECTING LEARNING: None LEARNING RESPONSE DIAGNOSIS: C50.211 METHOD OF INSTRUCTION: Individual instruction Written instruction - handouts Verbal instruction PATIENT / FAMILY RESPONSE: Verbalizes understanding of: DRAIN CARE- Correct procedure to perform drain care INFECTION MANAGEMENT-Signs and symptoms of an infection and importance of contacting the physician MEDICATION PRESCRIBED-Accurate knowledge of prescribed medication prior to discharge MEDICATION ROUTE-Correct route for administration of the prescribed medication MEDICATION SIDE EFFECTS-Side effects associated with the medication that warrant a call to the physician PAIN MANAGEMENT-Effective strategies to manage pain in addition to pain medication PHYSICAL RESTRICTIONS-Physical restrictions and recommendations after discharge from the hospital POST-OPERATIVE INSTRUCTIONS-Correct actions to take to reduce postoperative complications PRE-OPERATIVE INSTRUCTIONS-Correct action to take to follow pre-operative instructions PATIENT SAFETY PRINCIPLES VTE prevention measures VTE prevention measures but refuses to follow prevention plan/orders WORSENING CONDITION-Signs and symptoms of a worsening condition that warrant a call to the physician FOLLOW-UP PLAN: Patient instructed to call with any further issues SUPPLEMENTAL MATERIAL: Your Surgical Guide REFERRAL (RECOMMENDATION): None Electronically Signed By: Brandy Garay LPN In Department: [facility] Time spent on patient education: 20 minutes. Primary Visit Diagnosis:Malignant neoplasm of upper-inner quadrant of right breast in female, estrogen receptor positive (HCC) [C50.211, Z17.0] During your visit today, we recorded the following information about you: Allergies As of Date: 01/08/2023 (No Known Allergies) Date Reviewed: 01/08/2023 Reviewed by: Brandy Garay LPN - Fully Assessed Prescriptions as of 01/08/2023 - cyanocobalamin (VITAMIN B-12) 1,000 mcg tab Take 2,000 mcg by mouth once daily. - Ibuprofen 200 mg cap Take 200 mg by mouth every 6 hours as needed for pain. - rosuvastatin (CRESTOR) 20 mg tablet Take 1 tablet by mouth once daily. - levothyroxine (SYNTHROID) 150 mcg tablet Take 1 tablet by mouth once daily. - olmesartan (BENICAR) 40 mg tablet - Pregabalin (LYRICA) 200 mg capsule Take 200 mg by mouth twice daily. - metFORMIN ER (GLUCOPHAGE XR) 500 mg 24 hr tablet - insulin glargine,hum.rec.anlog (TOUJEO SOLOSTAR U-300 INSULIN SUBCUTANEOUS) - HUMALOG KWIKPEN INSULIN 200 unit/mL (3 mL) injection - insulin glargine U-300 conc (TOUJEO SOLOSTAR U-300 INSULIN) 300 unit/mL (1.5 mL) INJECT 70 UNITS SUBCUTANEOUSLY AT BEDTIME - Alpha Lipoic Acid 100 mg cap - cholecalciferol, vitamin D3, (D3-2000 ORAL) - diphenhydrAMINE (BENADRYL) 25 mg capsule Take by mouth. - Magnesium 200 mg tab - VITAMIN B COMPLEX ORAL Take by mouth once daily. - metroNIDAZOLE (METROGEL) 1 % gel .Apply to entire affected area(s) of rosacea on face QDay as directed and can increase up to bid prn flaring or as needed and tolerated. - tretinoin (RETIN-A) 0.025 % topical cream Apply thin layer to face at entire sun-damaged skin area(s) every other day (qoday) up to once per day (qday) as directed and tolerated in the evening (1/2 hr after washing and at least 1/2 hr before bedtime) and wash off face in the AM before going outside. Beware of potential excess sun sensitivity, use sun protection. - hydrocortisone 2.5 % lotion Apply to affected spots and/or area(s) of rash or irritated skin or flared Acne Rosacea on face and neck selectively qday to bid until clear as directed and tolerated. AVOID eyes and eyelids. NB: Needs 3-month supply. Encounter Status:Closed by BRANDY GARAY on 01/08/23 [facility] 01-05-2023 History and physical note HISTORY AND PHYSICAL EXAMINATION SERVICE DATE: 01/05/2023 SERVICE TIME: 3:17 PM PRIMARY CARE PHYSICIAN: Benny Bosch MD, MD REASON FOR VISIT: Suleiman Ramsey is a 77 year old female who is scheduled for Procedure(s) with comments: MASTECTOMY SIMPLE (Right) INTRAOPERATIVE ID OF SENTINEL LYMPH NODE(S) INCL'D INJECTION OF NON-RAD DYE WHEN PERFORMED (Right) BIOPSY NODE SENTINEL AXILLARY (Right) - sentinel injection at 9:15 am, to inject by Dr. Parkinson in [facility] OR LYMPHADENECTOMY AXILLARY COMPLETE (Right) INJECTION PROCEDURE RADIOACTIVE TRACER FOR IDENTIFICATION OF SENTINEL NODE (Right) at the request of Micki Muir DO for consultation. My final recommendation will be communicated back to the requesting physician by way of shared medical record or letter. 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 Neoplasm of Upper-Inner Quadrant of Right Breast in Female, Estrogen Receptor Positive (Hcc) Essential Hypertension, Benign Pure Hypercholesterolemia Unspecified Hypothyroidism Diabetes (Hcc) Lbbb (Left Bundle Branch Block) COVID-19 Immunization Status Overdue - COVID-19 VACCINE (6 - Moderna series) Overdue since 06/14/2022 02/11/2022 Imm Admin: COVID-19 vaccine, age 12+ yr, bivalent (PFIZER-BIONTECH) 10/01/2021 Imm Admin: COVID-19 original vaccine, age 12+ yr, monovalent (PFIZER-BIONTECH - GREGG TOP) 03/10/2021 Imm Admin: COVID-19 original vaccine, full dose, monovalent (MODERNA) Only the first 3 history entries have been loaded, but more history exists. Patient reports being fully vaccinated against COVID-19. Patient reports no prior COVID-19 infections. CHIEF COMPLAINT: pre op HPI: Patient is a 77 year old female presenting with a new dx of left breast cancer. Reports multiple lumps on the right breast. Denies breast asymmetry, or other changes to the breast. Denies family hx of breast cancer . Mammogram done, then biopsy revealed invasive ductal carcinoma. REVIEW OF SYSTEMS: General: No weight loss, malaise or fevers. Neurological: Negative for: headaches, peripheral neuropathy, seizures, TIA and strokes. Respiratory: Positive for: dyspnea (chronic, on exertion intermittently). Negative for: asthma, COPD, prior COVID-19 infection, current cough, home oxygen, tobacco use, URI < 2 weeks and obstructive sleep apnea. Cardiovascular: Denies dizziness or syncope. Positive for: arrhythmia, hyperlipidemia and hypertension Negative for: AICD/PPM, CAD, chest pain, CHF, DVT/PE, recent ID, murmur/valvular heart disease, open heart surgery and valve surgery. GI: Negative for: abdominal pain, GERD, GI bleed <30 days, hepatitis, liver disease, nausea and vomiting. : Denies kidney disease Negative for: dysuria, frequent urination, hematuria and urinary tract infection. 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 Endocrine: Positive for: diabetes mellitus and hypothyroidism. Patient's diabetes mellitus is controlled by diet and insulin. Negative for: hyperthyroidism. Hematology: Negative for: anemia, bruises/bleeds easily, factor V Leiden, hemophilia, thrombocytopenia and von Willebrand disease. Oncology: See HPI. Psych: Negative for: anxiety, bipolar disorder and depression. Musculoskeletal: Negative for joint pain or swelling, back pain or muscle pain. Skin: Negative for lesions, rash and itching. PAST MEDICAL HISTORY Diagnosis Date Breast cancer (HCC) 12/2022 right breast Dysplasia of cervix, unspecified 05/14/1991 Essential hypertension, benign Other and unspecified hyperlipidemia PMH - PAST MEDICAL HISTORY OF Diabetes Type 11 Dx one year ago Rosacea Symptomatic menopausal or female climacteric states Unspecified hypothyroidism PAST SURGICAL HISTORY Procedure Laterality Date CAUTERY CERVIX CRYOCAUTERY INITIAL/REPEAT 05/14/1991 for dysplasia CONIZATION CERVIX W/WO D&C RPR ELTRD EXC 08/12/1997 LEEP-Cervix Cervicitis only found CYSTOSCOPY,+URETEROSCOPY DILATION & CURETTAGE DX&/THER NONOBSTETRIC Dilation & curettage LIG/TRNSXJ FLP TUBE ABDL/VAG APPR UNI/BI Tubal ligation US BREAST NEEDLE CORE BIOPSY RT Right 12/2022 FAMILY HISTORY Problem Relation Age of Onset Cancer Father =lung, liver , pancreas Heart Father Diabetes Maternal Grandmother Diabetes Paternal Grandfather Anesthesia Problems No Family History Social History Tobacco Use Smoking status: Former Types: Cigarettes Quit date: 05/14/1980 Years since quittin.6 Smokeless tobacco: Never Vaping Use Vaping Use: Never used Substance Use Topics Alcohol use: Yes Comment: one a Year Drug use: No Prior to Admission medications as of 01/05/23 1431 Medication Sig Last Dose Taking cyanocobalamin (VITAMIN B-12) 1,000 mcg tab Take 2,000 mcg by mouth once daily. Taking Yes Ibuprofen 200 mg cap Take 200 mg by mouth every 6 hours as needed for pain. Taking Yes rosuvastatin (CRESTOR) 20 mg tablet Take 1 tablet by mouth once daily. Taking Yes levothyroxine (SYNTHROID) 150 mcg tablet Take 1 tablet by mouth once daily. Taking Yes olmesartan (BENICAR) 40 mg tablet Taking Yes Pregabalin (LYRICA) 200 mg capsule Take 200 mg by mouth twice daily. Taking Yes metFORMIN ER (GLUCOPHAGE XR) 500 mg 24 hr tablet Taking Yes HUMALOG KWIKPEN INSULIN 200 unit/mL (3 mL) injection Taking Yes insulin glargine U-300 conc (TOUJEO SOLOSTAR U-300 INSULIN) 300 unit/mL (1.5 mL) INJECT 70 UNITS SUBCUTANEOUSLY AT BEDTIME Taking Yes Alpha Lipoic Acid 100 mg cap Taking Yes cholecalciferol, vitamin D3, (D3-2000 ORAL) Taking Yes diphenhydrAMINE (BENADRYL) 25 mg capsule Take by mouth. Taking Yes Magnesium 200 mg tab Taking Yes VITAMIN B COMPLEX ORAL Take by mouth once daily. Taking Yes hydrocortisone 2.5 % lotion Apply to affected spots and/or area(s) of rash or irritated skin or flared Acne Rosacea on face and neck selectively qday to bid until clear as directed and tolerated. AVOID eyes and eyelids. NB: Needs 3-month supply. Taking Yes insulin glargine,hum.rec.anlog (TOUJEO SOLOSTAR U-300 INSULIN SUBCUTANEOUS) Not Taking metroNIDAZOLE (METROGEL) 1 % gel .Apply to entire affected area(s) of rosacea on face QDay as directed and can increase up to bid prn flaring or as needed and tolerated. tretinoin (RETIN-A) 0.025 % topical cream Apply thin layer to face at entire sun-damaged skin area(s) every other day (qoday) up to once per day (qday) as directed and tolerated in the evening (1/2 hr after washing and at least 1/2 hr before bedtime) and wash off face in the AM before going outside. Beware of potential excess sun sensitivity, use sun protection. No medication comments found. ALLERGIES No Known Allergies Objective PHYSICAL EXAM: General: alert and oriented and healthy appearance. Pertinent negatives noted - not distressed. Skin: normal color, no rash or lesions. HEENT: EOM intact, pupils equal round and pupils reactive to light. Pertinent negatives noted - no carotid bruit. Cardiovascular: regular rate and rhythm, normal S1 and S2, no rub, murmurs, or gallop. Respiratory: normal breath sounds, no wheezes or crackles. No chest wall deformity or tenderness. Abdomen: bowel sounds present and soft. Pertinent negatives noted - not tender. Extremities: no deformity, no edema or tenderness, no joint swelling or clubbing. Neurological: normal cognition and motor skills. Gait normal. No weakness or sensory deficit. PAIN ASSESSMENT: Pain Pain Level: 0 Pain Location: Breast-Right Description: Aching Duration Amount of Time: 2 Duration Units: Months Frequency: Intermittent VITALS: BP 179/74 Pulse 70 Temp (Src) 97.8 (Oral) Resp 16 Ht 5' 1 (1.55m) Wt 173 lb 3.2 oz (78.6kg) SpO2 97% BMI 32.74 kg/(m^2). Diagnostic tests reviewed for today's visit: Lab Value Units Date High Low HB No results within date range. HCT No results within date range. WBC No results within date range. PLT No results within date range. NA No results within date range. K No results within date range. GLUC No results within date range. BUN No results within date range. CREAT No results within date range. PTSEC No results within date range. INR No results within date range. APTT No results within date range. ALT No results within date range. AST No results within date range. TBILI No results within date range. TSH No results within date range. Lab Value Units Date High Low HCGQT No results within date range. UHCG No results within date range. HCG, BODY* No results within date range. Lab Value Units Date High Low ABORHD No results within date range. ABSCREEN No results within date range. No results found for: HBA1C Recent Results (from the past 8760 hour(s)) ECG COMPLETE Collection Time: 01/05/23 3:06 PM Result Value Ventricular Rate 70 Atrial Rate 70 P-R Interval 244 QRS Duration 126 QT Interval 422 QTC Calculation (Bazett) 455 Calculated P [place] 38 Calculated R Cairo -31 Calculated T [place] 94 Impression SINUS RHYTHM WITH 1ST DEGREE AV BLOCK LEFT AXIS DEVIATION COMPLETE LEFT BUNDLE BRANCH BLOCK ABNORMAL ECG No results found for this or any previous visit (from the past 51840 hour(s)). Assessment Patient has the following medical conditions which may affect mitzy-operative course: Pure hypercholesterolemia Assessment: Complaint on statin therapy. Encouraged lifestyle modifications. Essential hypertension, benign Assessment: elevated, complaint on rx. Follows with PCP. Home BP is around 140/80s. Last 3 Encounter BP Readings: Date: BP: 12/22/2022 167/65 04/21/2011 106/68 01/01/2009 122/82 Unspecified hypothyroidism Assessment: Compliant on levothyroxine. Denies recent dose adjustments. Following with PCP. Diabetes (HCC) Assessment: Reports compliance to medication. Reports BS checks ar home, this am 147. Following with endocrine. Encouraged lifestyle modifications. Unknown last A1C. LBBB (left bundle branch block) Assessment: noted on EKG, patient has chronic intermittent SOB. Appears to be chronic, has had in the past, viewed on prior EKG's from [employer] online charts. [place] Activity Status Index: METS: Climb a flight of stairs or walk up a hill (5.50 METs) DASI Score: 5.5 Patient denies any chest pain or undue shortness of breath with the above physical activity. Clinical Frailty Scale: 3. Well, with treated comorbid disease STOP-Bang Score: Snores loudly Has been observed to stop breathing or choking/gasping during sleep Has or is being treated for high blood pressure Patient over 50 years old Denies feeling tired, fatigued, or sleepy during the daytime BMI less than or equal to 35 kg/m^2 Does not have a large neck Non-male patient STOP-Bang Score: 4 [id number] Score: [id number] Score: 0 ANESTHESIA FINDINGS: Intubation History: No history of difficult intubation. No abnormal airway history Significant Anesthesia Considerations: none Airway History: No history of difficult airway No abnormal airway history I - PHYSICAL EVALUATION AIRWAY Patient intubated: No. Tracheostomy tube not present Mallampati: I. TM distance: >3 FB. Neck ROM: full ROM without neurological symptoms. Mouth opening: adequate. Short neck: no. Thick neck: no Lip Bite Test: I Microretrognathia/Micronagthia/Rec essed Chin: No DENTAL Dental findings: teeth intact. II - ANESTHESIA PLAN Anesthetic plan additional comments: *PACC/TCI - anesthesia choice. Beta Josh Monitoring Plan Post Procedure Analgesic Plan Prepared for Surgery: optimally prepared for surgery, pending [see comment]. Ekg, labs ordered. EKG showing LBBB, has had in the past, but no other cardiac work up. Sent message to Dr. Brennan covering for [facility] anesthesia. Notified of BP as well. CONSULTS: The following consults have been initiated at this time: anesthesia. Planned Anesthetic: anesthesia choice The Following Tests/Procedures Have Been Initiated: Orders Placed This Encounter CBC with Differential Standing Status: Future Number of Occurrences: 1 Standing Expiration Date: 03/07/2023 Comp Metabolic Panel Standing Status: Future Number of Occurrences: 1 Standing Expiration Date: 03/07/2023 HGB A1C Standing Status: Future Number of Occurrences: 1 Standing Expiration Date: 03/07/2023 cyanocobalamin (VITAMIN B-12) 1,000 mcg tab Sig: Take 2,000 mcg by mouth once daily. Ibuprofen 200 mg cap Sig: Take 200 mg by mouth every 6 hours as needed for pain. ECG COMPLETE Standing Status: Future Number of Occurrences: 1 Standing Expiration Date: 01/06/2024 Instructions Given to Patient: Instructions located in the after visit summary. Patient given verbal and written preop instructions and voices comprehension and compliance. SIGNATURE: Suleman Monzon APRN.CNP PATIENT NAME: Suleiman Ramsey DATE: January 05, 2023 TIME: 12:12 PM PAGER/CONTACT #: documented in this encounter [facility] 01-05-2023 Instructions Suleman Monzon APRN.CNP - 01/05/2023 12:12 PM EDT PATIENT PREOPERATIVE INSTRUCTIONS Micki Parkinson DO has scheduled you for your procedure at this surgery center: [facility]: [phone] --[id number] [id number]. Please check in on the 1st floor at registration desk 6. Please read below carefully for your personalized instructions. Arrival Time for Surgery: - The Surgery Center or hospital where you are having surgery will call the afternoon before surgery (or Sunday for Sunday surgery) with a scheduled arrival time. - If you have not heard by 4 pm, please contact the surgery center above. Dietary Restrictions: - No solid food after midnight. - You may have 12 ounces of clear liquids (water, clear juices such as apple juice or gatorade, carbonated beverages, clear tea, black coffee, jello) until 2 hours before scheduled arrival at facility. - Do not drink any alcohol after midnight the night before your surgery. Medications: Unless instructed differently below, stay on all of your medications until your surgery. Approved medications to take the morning of surgery with a sip of water: Levothyroxine (Synthroid) crestor Lyrica (Pregablin) DO NOT TAKE YOUR Benicar THE NIGHT BEFORE OR MORNING OF SURGERY Is Patient Diabetic:Yes Preoperative Instructions for Patient's with Diabetes Mellitus Diabetic Medication Instructions:Please take the following meds at your usual dose the day before surgery. DO NOT TAKE THE MORNING OF SURGERY; Trajenta, Metformin, Actos/Pioglitazone and Amaryl/Glimepiride. Insulin Medication Instructions:Please take the following medications at your usual dose the day before surgery. DO NOT TAKE THE MORNING OF SURGERY: Afrezza, Novolog, Regular Insulin, Apidra and Humalog For the following medication, take 75% of your usual dose the evening before surgery. If not possible to take 75% of your usual dose then take your full dose. DO NOT TAKE ON THE MORNING OF SURGERY: Basaglar, Lantus, Levemir, Rougeo and Tresiba If you start any new medications after today's visit, please contact the surgeon's office. Blood Thinning Medications: - Stop NSAIDS (Ibuprofen, Advil, Aleve, Motrin, Celebrex, Mobic, etc.) 7 days before surgery, as directed by your surgeon. - Stop Aspirin 7 days before surgery, as directed by your surgeon. - Stop Vitamin E, ALL multi-vitamins, herbals and dietary supplements 14 days before surgery. - You may take Tylenol (Acetaminophen) or any of your pain medications that do not contain aspirin or NSAIDS as needed. Important Reminders: - If you use CPAP/BIPAP, bring the machine with you to the surgery center. - If you are prescribed inhalers for breathing, continue using them. -Please be sure to brush your teeth and you can use mouth wash or rinse your mouth if dry. - Candy, mints, and tobacco products are NOT permitted the morning of surgery. - Hearing aids, dentures and glasses may be worn the morning of surgery. - NO jewelry, body piercings, makeup, hairpins or contacts are to be worn the day of surgery. If you develop symptoms such as a fever, cold, or flu, or have other changes to your health within TWO DAYS of scheduled surgery or the morning of surgery, please contact the surgery center above. Personal Belongings: -Please have photo ID and insurance cards. -If you do not have a copy of advance directives on file with us, please bring a copy with you on the day of surgery. - Leave ALL valuables and money at home or with family members. For Outpatient Procedures: - YOU MUST HAVE A RESPONSIBLE TOOL HARDENER TAKE YOU HOME. A PARALEGAL SECRETARY OR NEWS WRITER CANNOT BE MADE A RESPONSIBLE TOOL HARDENER. - We recommend that a responsible person stays with you overnight to take care of you. - You cannot stay in a hotel alone after outpatient surgery. You will not be permitted to have your surgery, if you do not have someone to take care of you. Please be aware that emergency situations arise, which may delay or change your surgical time. If this happens, we will notify you as soon as possible and regret any inconvenience. If you already have an Advance Directive, please fax a copy to [phone] or email to for it to be added to your chart. If you do not have an Advance Directive, you can find the appropriate form and more information at [email or web address]. We recommend that you complete the Advance Directive form found on the website and bring it with you the day of your surgery. It can be witnessed and scanned into your chart that day. Suleman Monzon APRN.CNP documented in this encounter [facility] 01-05-2023 Miscellaneous Notes Left voicemail on Anel's (Suleiman's daughter) phone with my name and number to call if she has any questions or concerns about mother's surgery Sunday. documented in this encounter [facility] 01-03-2023 Note HNO ID: [id number] Author: Alex Danielle PA-C Service: ? Author Type: Physician Marketing Services Vice President Type: Progress Notes Filed: 01/03/2023 12:29 PM Note Text: REASON FOR TODAY'S VISIT: Pre-operative surgical review HISTORY: Suleiman Ramsey is a 77 year old female with RIGHT breast cancer spanning 6.8 cm. Genetics not indicated. Patient is scheduled to undergo RIGHT simple mastectomy, RIGHT sentinel lymph node mapping and biopsy with Dr. Parkinson on 01/09/2023. Pre-operative physical is scheduled for 01/05/2023 Patient is anticipating an overnight stay. Charlene localization is not indicated. Nuclear medicine injection for Gunpowder node biopsies is scheduled for the day of surgery in the operating room. Reviewed her home medications and allergies. Reviewed her past medical history including hyperlipidemia, HTN, IDDM,hypothyroidism Spoke to patient's daughter Anel, states Ms Ramsey has equipment operating engineer named Dr. Leora Villa, ([facility]). Advise to send/fax the notes with any mitzy-operative recommendations to the office. Patient reports she takes 70 units of Toujeo insulin and 30 units of Humalog after her dinner in the evening. Discussed post-operative pain medications and alternative methods of pain control. Would like any post-operative medication e-scripted to [facility] in [place]. (Pharmacy listed in [place]) Multiple surgical questions addressed today. She is encouraged to call or send a tastytrade message with any additional question or concerns. Contact numbers reviewed for her convenience. Alex Danielle PA-C [facility] 01-03-2023 History of Present illness Narrative REASON FOR TODAY'S VISIT: Pre-operative surgical review HISTORY: Suleiman Ramsey is a 77 year old female with RIGHT breast cancer spanning 6.8 cm. Genetics not indicated. Patient is scheduled to undergo RIGHT simple mastectomy, RIGHT sentinel lymph node mapping and biopsy with Dr. Parkinson on 01/09/2023. Pre-operative physical is scheduled for 01/05/2023 Patient is anticipating an overnight stay. Charlene localization is not indicated. Nuclear medicine injection for Gunpowder node biopsies is scheduled for the day of surgery in the operating room. Reviewed her home medications and allergies. Reviewed her past medical history including hyperlipidemia, HTN, IDDM,hypothyroidism Spoke to patient's daughter Anel, states Ms Ramsey has equipment operating engineer named Dr. Leora Villa, ([facility]). Advise to send/fax the notes with any mitzy-operative recommendations to the office. Patient reports she takes 70 units of Toujeo insulin and 30 units of Humalog after her dinner in the evening. Discussed post-operative pain medications and alternative methods of pain control. Would like any post-operative medication e-scripted to [facility] in [place]. (Pharmacy listed in [place]) Multiple surgical questions addressed today. She is encouraged to call or send a tastytrade message with any additional question or concerns. Contact numbers reviewed for her convenience. Alex Danielle PA-C documented in this encounter [facility] 12-26-2022 Miscellaneous Notes Spoke to patient. Informed surgery information and appointments . And notes from her equipment operating engineer. Spoke to patient's daughter Anel , informed patient surgery date and appointments related to her procedure with Dr. Parkinson on 01/09 . Lathe Machinist note with recommendations needed before her mother's surgery. documented in this encounter [facility] 12-26-2022 Miscellaneous Notes Spoke with patient who would like to proceed with RIGHT simple mastectomy, RIGHT sentinel lymph node mapping and biopsy with on 01/09/2023. Surgeon and surgical schedulers will be notified. Contact numbers reviewed for her convenience. Alex Danielle PA-C documented in this encounter [facility] 12-22-2022 Note HNO ID: [id number] Author: Samuel Dinh MD Service: ? Author Type: Physician Type: Progress Notes Filed: 12/29/2022 2:01 PM Note Text: BREAST RECONSTRUCTION EVALUATION CC: Suleiman Ramsey is a 77 year old that presents today for breast reconstruction evaluation. HPI: Suleiman Ramsey is a 77 year old female with a history of RIGHT breast cancer. Diagnosis was made at [facility] by means of ultrasound-guided core biopsy of Right breast on 11/15/2022. The pathology report showed Infiltrating Ductal Carcinoma Grade 2, ER positive, HI positive, HER2 non-amplified (FISH). She has a hx of DM type 2, blood sugars have been a little high. Most recent HgBA1C was 12.1 on (11/27/22). Significant peripheral neuropathy in the feet, mild in the hands. Hx of HTN and HLD, well-controlled with medication (Benicar) Former smoker. Quit in 1979. Not on any blood thinners. No bleeding or clotting d/o. Denies cardiac or pulmonary disease. Spinal stenosis surgery 2019 No abdominal surgeries. Patient's 2 family members accompanied her today. Prior breast procedures: Yes, date: 11/10/22, results: IMAGING FINDINGS: Bilateral diagnostic mammogram dated 11/10/2022: There are multiple masses in the upper inner aspect of the right breast, mid depth. There is architectural distortion surrounding this region. The masses span approximately 5.7 x 6.8 cm. No suspicious masses, architectural distortion, or calcifications in the left breast. Right breast ultrasound dated 11/10/2022: In the scanned region of the right breast labeled as the upper inner quadrant, there are multiple irregular, hypoechoic masses which display posterior acoustic shadowing and internal vascularity. The largest imaged region is at the 1:00 position, 12 cm from the nipple, measuring 1.4 x 2.7 x 1 cm. Right breast ultrasound-guided biopsy dated 11/15/2022: An irregular, hypoechoic mass resembling the above-noted largest lesion at the 1:00 position noted above is seen on initial imaging, although the images are not definitively labeled. Multiple passes of a biopsy needle through this mass are then seen. Right axillary ultrasound dated 11/29/2022: Normal-appearing lymph nodes are seen in the imaged aspects of the right axilla. No abnormal lymph nodes are identified. Radiation Therapy: No Chemotherapy: No PAIN : No: 0 on a scale of 0 to 10 Bra Size: D Desired Bra Size: B OB HISTORY: Para: 3 : Patient did not breastfeed Plan for future pregnancies: No HISTORY OF BREAST DISEASE: no hx prior to this most recent diagnosis. PRIOR MAMMOGRAM: Yes, see above FAMILY HISTORY OF BREAST CANCER: No family history of breast cancer PMH: PAST MEDICAL HISTORY Diagnosis Date Dysplasia of cervix, unspecified 1991 Essential hypertension, benign Other and unspecified hyperlipidemia PMH - PAST MEDICAL HISTORY OF Diabetes Type 11 Dx one year ago Rosacea Symptomatic menopausal or female climacteric states Unspecified hypothyroidism PSH: PAST SURGICAL HISTORY Procedure Laterality Date CAUTERY CERVIX CRYOCAUTERY INITIAL/REPEAT 1991 for dysplasia CONIZATION CERVIX W/WO DANDC RPR ELTRD EXC LEEP-Cervix Cervicitis only found CYSTOSCOPY,+URETEROSCOPY DILATION AND CURETTAGE DXAND/THER NONOBSTETRIC Dilation AND curettage LIG/TRNSXJ FLP TUBE ABDL/VAG APPR UNI/BI Tubal ligation MEDS: Current Outpatient Medications on File Prior to Visit Medication Sig metroNIDAZOLE (METROGEL) 1 % gel .Apply to entire affected area(s) of rosacea on face QDay as directed and can increase up to bid prn flaring or as needed and tolerated. INSULIN DETEMIR (LEVEMIR SUBCUTANEOUS) Inject subcutaneously once daily. LIRAGLUTIDE (VICTOZA 3-BEN SUBCUTANEOUS) Inject subcutaneously once daily. doxycycline 50 mg capsule Take one(1) capsule by mouth (with food OK) twice per day (bid) for flaring Rosacea as tolerated and directed. Can taper down to one (1) capsule by mouth per day when flaring has subsided, as directed. tretinoin (RETIN-A) 0.025 % topical cream Apply thin layer to face at entire sun-damaged skin area(s) every other day (qoday) up to once per day (qday) as directed and tolerated in the evening (1/2 hr after washing and at least 1/2 hr before bedtime) and wash off face in the AM before going outside. Beware of potential excess sun sensitivity, use sun protection. hydrocortisone 2.5 % lotion Apply to affected spots and/or area(s) of rash or irritated skin or flared Acne Rosacea on face and neck selectively qday to bid until clear as directed and tolerated. AVOID eyes and eyelids. NB: Needs 3-month supply. venlafaxine XR (EFFEXOR XR) 75 mg ORAL 24 hr capsule Take 1 capsule by mouth once daily. olmesartan (BENICAR) 20 mg ORAL tablet Take 20 mg by mouth once daily. Take one(1) tablet daily. simvastatin 20 mg ORAL tablet Take 20 mg by mouth daily at bedtime. Take one(1) tablet d (more content not included)... [facility] 12-22-2022 History of Present illness Narrative Images from the original note were not included. BREAST RECONSTRUCTION EVALUATION CC: Suleiman Ramsey is a 77 year old that presents today for breast reconstruction evaluation. HPI: Suleiman Ramsey is a 77 year old female with a history of RIGHT breast cancer. Diagnosis was made at [facility] by means of ultrasound-guided core biopsy of Right breast on 11/15/2022. The pathology report showed Infiltrating Ductal Carcinoma Grade 2, ER positive, HI positive, HER2 non-amplified (FISH). She has a hx of DM type 2, blood sugars have been a little high. Most recent HgBA1C was 12.1 on (11/27/22). Significant peripheral neuropathy in the feet, mild in the hands. Hx of HTN and HLD, well-controlled with medication (Benicar) Former smoker. Quit in 1979. Not on any blood thinners. No bleeding or clotting d/o. Denies cardiac or pulmonary disease. Spinal stenosis surgery 2019 No abdominal surgeries. Patient's 2 family members accompanied her today. Prior breast procedures: Yes, date: 11/10/22, results: IMAGING FINDINGS: Bilateral diagnostic mammogram dated 11/10/2022: There are multiple masses in the upper inner aspect of the right breast, mid depth. There is architectural distortion surrounding this region. The masses span approximately 5.7 x 6.8 cm. No suspicious masses, architectural distortion, or calcifications in the left breast. Right breast ultrasound dated 11/10/2022: In the scanned region of the right breast labeled as the upper inner quadrant, there are multiple irregular, hypoechoic masses which display posterior acoustic shadowing and internal vascularity. The largest imaged region is at the 1:00 position, 12 cm from the nipple, measuring 1.4 x 2.7 x 1 cm. Right breast ultrasound-guided biopsy dated 11/15/2022: An irregular, hypoechoic mass resembling the above-noted largest lesion at the 1:00 position noted above is seen on initial imaging, although the images are not definitively labeled. Multiple passes of a biopsy needle through this mass are then seen. Right axillary ultrasound dated 11/29/2022: Normal-appearing lymph nodes are seen in the imaged aspects of the right axilla. No abnormal lymph nodes are identified. Radiation Therapy: No Chemotherapy: No PAIN : No: 0 on a scale of 0 to 10 Bra Size: D Desired Bra Size: B OB HISTORY: Para: 3 : Patient did not breastfeed Plan for future pregnancies: No HISTORY OF BREAST DISEASE: no hx prior to this most recent diagnosis. PRIOR MAMMOGRAM: Yes, see above FAMILY HISTORY OF BREAST CANCER: No family history of breast cancer PMH: PAST MEDICAL HISTORY Diagnosis Date Dysplasia of cervix, unspecified 1991 Essential hypertension, benign Other and unspecified hyperlipidemia PMH - PAST MEDICAL HISTORY OF Diabetes Type 11 Dx one year ago Rosacea Symptomatic menopausal or female climacteric states Unspecified hypothyroidism PSH: PAST SURGICAL HISTORY Procedure Laterality Date CAUTERY CERVIX CRYOCAUTERY INITIAL/REPEAT 1991 for dysplasia CONIZATION CERVIX W/WO D&C RPR ELTRD EXC LEEP-Cervix Cervicitis only found CYSTOSCOPY,+URETEROSCOPY DILATION & CURETTAGE DX&/THER NONOBSTETRIC Dilation & curettage LIG/TRNSXJ FLP TUBE ABDL/VAG APPR UNI/BI Tubal ligation MEDS: Current Outpatient Medications on File Prior to Visit Medication Sig metroNIDAZOLE (METROGEL) 1 % gel .Apply to entire affected area(s) of rosacea on face QDay as directed and can increase up to bid prn flaring or as needed and tolerated. INSULIN DETEMIR (LEVEMIR SUBCUTANEOUS) Inject subcutaneously once daily. LIRAGLUTIDE (VICTOZA 3-BEN SUBCUTANEOUS) Inject subcutaneously once daily. doxycycline 50 mg capsule Take one(1) capsule by mouth (with food OK) twice per day (bid) for flaring Rosacea as tolerated and directed. Can taper down to one (1) capsule by mouth per day when flaring has subsided, as directed. tretinoin (RETIN-A) 0.025 % topical cream Apply thin layer to face at entire sun-damaged skin area(s) every other day (qoday) up to once per day (qday) as directed and tolerated in the evening (1/2 hr after washing and at least 1/2 hr before bedtime) and wash off face in the AM before going outside. Beware of potential excess sun sensitivity, use sun protection. hydrocortisone 2.5 % lotion Apply to affected spots and/or area(s) of rash or irritated skin or flared Acne Rosacea on face and neck selectively qday to bid until clear as directed and tolerated. AVOID eyes and eyelids. NB: Needs 3-month supply. venlafaxine XR (EFFEXOR XR) 75 mg ORAL 24 hr capsule Take 1 capsule by mouth once daily. olmesartan (BENICAR) 20 mg ORAL tablet Take 20 mg by mouth once daily. Take one(1) tablet daily. simvastatin 20 mg ORAL tablet Take 20 mg by mouth daily at bedtime. Take one(1) tablet daily. levothyroxine sodium(SYNTHROID 150 MCG TAB) Take one(1) tablet daily. No current facility-administered medications on file prior to visit. SMOKING HISTORY: Ex-smoker - quit 1980 ETOH USE: None USE OF VITAMIN E, HERBS, ASA, NSAIDS: Yes: vitamin B12 MARITAL STATUS: EMPLOYMENT: Patient is retired EXAM: There were no vitals taken for this visit. There is no height or weight on file to calculate BMI. Back Exam: no scar; latissimus dorsi muscle function appears to be intact, + mild scoliosis right shoulder higher than left Abdominal Exam: soft, non-tender, overweight, BS+, non-distended, scar from tubes tied around umbilicus Breast Exam: Extremity Lymphedema Asymmetry: L>R Masses: 5 cm mass on right upper breast Axillary Lymphadenopathy: no Scars: none Note: measurements are in centimeters SN to NIPPLE: R: 29 L: 30.5 WIDTH: R: 20 L: 18 MIDLINE to NIPPLE: R: 13 L: 13 IMF to NIPPLE: R: 12 L: 9 PTOSIS: R: Grade III L: Grade IV MEDIALLY DISPLACED NIPPLE: Moderate bilaterally Appoximate Implant Size: 800cc Type of Implant: Tissue 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 Consultation requested by Dr. Parkinson for an opinion regarding breast reconstruction. My final recommendations will be communicated back to the requesting physician by way of shared Medical record or letter to requesting physician via US mail. The patient was seen with Dr. Dinh who performed the Review of Systems and Past/Family/Social History. I have reviewed these and agree with her findings. The History and Physical as taken by me are documented above and/or dictated below. By signing my name below, I, Maryann Soriano, attest that this documentation has been prepared under the direction and in the presence of Dr. Dinh Electronically signed, Leyla Syed December 22, 2022 2:54 PM Provider Attestation: I, Samuel Dinh MD, personally performed the services described in this documentation. All medical record entries made by the scribe were at my direction and in my presence. I have reviewed the chart and discharge instructions (if applicable) and agree that the record reflects my personal performance and is accurate and complete. Dr. Samuel Dinh MD December 29, 2022 2:01 PM documented in this encounter [facility] 12-22-2022 Note HNO ID: [id number] Author: Micki Parkinson, DO Service: ? Author Type: Physician Type: Progress Notes Filed: 12/25/2022 8:25 AM Note Text: NEW BREAST CANCER - INITIAL SURGICAL VISIT SERVICE DATE: 12/19/2022 REFERRING PROVIDER: Dr. Rio Richards SUBJECTIVE: REASON FOR TODAY'S VISIT: Breast Cancer Evaluation HISTORY of PRESENT ILLNESS: Suleiman Ramsey is a 77 year old White female who presents to the [facility] at the request of for an opinion regarding a new diagnosis of RIGHT breast cancer. Patient states the palpable breast mass was first noted in 6 months ago on a self breast exam. She saw her equipment operating engineer who also palpated the mass. She was sent for a bilateral diagnostic mammogram with RIGHT ultrasound at an OSH on 11/10/2022. Imaging a conglomeration of multiple spiculated nodular densities at 1:00, 11-12 cm form the nipple, with the largest measuring 1 x 2.7 x 1.4 cm. No abnormalities noted in the right axilla. The extent of disease is approximately 4.6 cm in size. Diagnosis was made at [facility] by means of ultrasound-guided core biopsy of Right breast on 11/15/2022. The pathology report showed Infiltrating Ductal Carcinoma Grade 2, ER positive, HI positive, HER2 non-amplified (FISH). Metastatic workup with CT chest/abdomen/pelvis and bone scan showed no evidence of metastatic disease. She states the mass subjectively has remained the same in size and consistency since the initial examination. Patient notes pain in the right breast for the past 2 months. She denies any other skin changes, breast masses, and nipple discharge. She states about 15 years ago a breast surgeon attempted a needle biopsy for a concern in the right breast, but was not able to get a specimen. Patient has not had other previous breast concerns, procedures or surgeries. She presents with her daughter and today. She has poorly controlled diabetes with peripheral neuropathy in her feet. HISTORY OF BREAST PROCEDURE(S): None PAST MEDICAL HISTORY: PAST MEDICAL HISTORY Diagnosis Date Breast cancer (HCC) 12/2022 right breast Dysplasia of cervix, unspecified 05/14/1991 Essential hypertension, benign Other and unspecified hyperlipidemia PMH - PAST MEDICAL HISTORY OF Diabetes Type 11 Dx one year ago Rosacea Symptomatic menopausal or female climacteric states Unspecified hypothyroidism PAST SURGICAL HISTORY: PAST SURGICAL HISTORY Procedure Laterality Date CAUTERY CERVIX CRYOCAUTERY INITIAL/REPEAT 05/14/1991 for dysplasia CONIZATION CERVIX W/WO DANDC RPR ELTRD EXC 08/12/1997 LEEP-Cervix Cervicitis only found CYSTOSCOPY,+URETEROSCOPY DILATION AND CURETTAGE DXAND/THER NONOBSTETRIC Dilation AND curettage LIG/TRNSXJ FLP TUBE ABDL/VAG APPR UNI/BI Tubal ligation US BREAST NEEDLE CORE BIOPSY RT Right 12/2022 OBSTETRIC RELATED HISTORY: Patient did not breast feed. Age at of First Child: 22 years of age. Age at Onset of Menses: 12 years of age. Age at Menopause: 58 years of age. Ovaries: both intact Uterus: intact P: 3 Patient's last menstrual period was 12/13/03 Exogenous Hormone Use: Used OCPs for about 10 years. Used an estrogen patch for 10 years about 20 years ago. Oral Contraceptives Estrogen Progesterone FAMILY HISTORY: FAMILY HISTORY Problem Relation Age of Onset Cancer Father =lung, liver , pancreas Heart Father Diabetes Paternal Grandfather Diabetes Maternal Grandmother The patient is not of Ashkenazic Ancestry. Breast cancer: Negative Ovarian cancer:Negative SOCIAL HISTORY: Occupation: Retired Social History Tobacco Use Smoking status: Former Types: Cigarettes Quit date: 05/14/1980 Years since quittin.6 Smokeless tobacco: Never Substance Use Topics Alcohol use: Yes Comment: one a Year Drug use: No ACTIVE PROBLEM LIST Malignant Neoplasm of Upper-Inner Quadrant of Right Breast in Female, Estrogen Receptor Positive (Hcc) - 12/22/2022 Contact Dermatitis and Other Eczema Due to Detergents - 06/09/2012 Rosacea - 06/09/2012 Postinflammatory Skin Changes - 06/09/2012 Other Seborrheic Dermatitis - 06/09/2012 Telangiectasia - 06/09/2012 Xerosis Cutis - 06/09/2012 Actinic Skin Damage - 06/09/2012 Neuropathic Pain of Foot - 06/09/2012 Hyperpigmentation Due to Minocycline - 06/09/2012 Depressive Disorder, Not Elsewhere Classified - 04/21/2011 Cystocele, Midline - 04/21/2011 Symptomatic Menopausal Or Female Climacteric States - 02/06/2007 Postmenopausal Atrophic Vaginitis - 02/06/2007 Lump Or Mass in Breast - 02/06/2007 Unspecified Noninflammatory Disorder of Vulva and Perineum - 02/06/2007 CURRENT MEDICATIONS: levothyroxine (SYNTHROID) 150 mcg tablet Take 1 tablet by mouth once daily. diphenhydrAMINE (BENADRYL) 25 mg capsule Take by mouth. VITAMIN B COMPLEX ORAL Take by mouth. rosuvastatin (CRESTOR) 20 mg tablet Take 1 (more content not included)... [facility] 12-22-2022 Nurse Note Patient was referred by: Did patient bring outside records to appt today? : Films: Sent in by other facility Pathology: Sent in by other facility Reports: Sent in by other facility Last mammogram on: 11/10/22 bilateral Results: see report Patient current bra size: 46D Coping: It is normal to feel some distress when you have cancer. On a scale of 0-10 please indicate the number that best describes your level of distress on the average over the past week. 07/21 Referred to social work: No Is the patient active on [employer] Yes Electronically Signed By: Brandy Garay LPN In Department: GENERAL SURGERY REVIEW OF PATIENT HISTORY: OB History T0 L3 SAB0 IAB0 Ectopic0 Multiple0 Live Births0 FAMILY HISTORY Problem Relation Age of Onset Cancer Father =lung, liver , pancreas Heart Father Diabetes Paternal Grandfather Diabetes Maternal Grandmother PAST MEDICAL HISTORY Diagnosis Date Dysplasia of cervix, unspecified 1991 Essential hypertension, benign Other and unspecified hyperlipidemia PMH - PAST MEDICAL HISTORY OF Diabetes Type 11 Dx one year ago Rosacea Symptomatic menopausal or female climacteric states Unspecified hypothyroidism PAST SURGICAL HISTORY Procedure Laterality Date CAUTERY CERVIX CRYOCAUTERY INITIAL/REPEAT 1991 for dysplasia CONIZATION CERVIX W/WO D&C RPR ELTRD EXC LEEP-Cervix Cervicitis only found CYSTOSCOPY,+URETEROSCOPY DILATION & CURETTAGE DX&/THER NONOBSTETRIC Dilation & curettage LIG/TRNSXJ FLP TUBE ABDL/VAG APPR UNI/BI Tubal ligation Social History Tobacco Use Smoking status: Former Types: Cigarettes Quit date: 05/14/1980 Years since quittin.6 Smokeless tobacco: Never Substance Use Topics Alcohol use: Yes Comment: one a Year Drug use: No documented in this encounter [facility] 12-22-2022 History of Present illness Narrative NEW BREAST CANCER - INITIAL SURGICAL VISIT SERVICE DATE: 12/19/2022 REFERRING PROVIDER: Dr. Rio Cebul SUBJECTIVE: REASON FOR TODAY'S VISIT: Breast Cancer Evaluation HISTORY of PRESENT ILLNESS: Suleiman Ramsey is a 77 year old White female who presents to the [facility] at the request of RIGHT for an opinion regarding a new diagnosis of RIGHT breast cancer. Patient states the palpable breast mass was first noted in 6 months ago on a self breast exam. She saw her equipment operating engineer who also palpated the mass. She was sent for a bilateral diagnostic mammogram with RIGHT ultrasound at an OSH on 11/10/2022. Imaging a conglomeration of multiple spiculated nodular densities at 1:00, 11-12 cm form the nipple, with the largest measuring 1 x 2.7 x 1.4 cm. No abnormalities noted in the right axilla. The extent of disease is approximately 4.6 cm in size. Diagnosis was made at [facility] by means of ultrasound-guided core biopsy of Right breast on 11/15/2022. The pathology report showed Infiltrating Ductal Carcinoma Grade 2, ER positive, HI positive, HER2 non-amplified (FISH). Metastatic workup with CT chest/abdomen/pelvis and bone scan showed no evidence of metastatic disease. She states the mass subjectively has remained the same in size and consistency since the initial examination. Patient notes pain in the right breast for the past 2 months. She denies any other skin changes, breast masses, and nipple discharge. She states about 15 years ago a breast surgeon attempted a needle biopsy for a concern in the right breast, but was not able to get a specimen. Patient has not had other previous breast concerns, procedures or surgeries. She presents with her daughter and today. She has poorly controlled diabetes with peripheral neuropathy in her feet. HISTORY OF BREAST PROCEDURE(S): None PAST MEDICAL HISTORY: PAST MEDICAL HISTORY Diagnosis Date Breast cancer (HCC) 12/2022 right breast Dysplasia of cervix, unspecified 05/14/1991 Essential hypertension, benign Other and unspecified hyperlipidemia PMH - PAST MEDICAL HISTORY OF Diabetes Type 11 Dx one year ago Rosacea Symptomatic menopausal or female climacteric states Unspecified hypothyroidism PAST SURGICAL HISTORY: PAST SURGICAL HISTORY Procedure Laterality Date CAUTERY CERVIX CRYOCAUTERY INITIAL/REPEAT 05/14/1991 for dysplasia CONIZATION CERVIX W/WO D&C RPR ELTRD EXC 08/12/1997 LEEP-Cervix Cervicitis only found CYSTOSCOPY,+URETEROSCOPY DILATION & CURETTAGE DX&/THER NONOBSTETRIC Dilation & curettage LIG/TRNSXJ FLP TUBE ABDL/VAG APPR UNI/BI Tubal ligation US BREAST NEEDLE CORE BIOPSY RT Right 12/2022 OBSTETRIC RELATED HISTORY: Patient did not breast feed. Age at of First Child: 22 years of age. Age at Onset of Menses: 12 years of age. Age at Menopause: 58 years of age. Ovaries: both intact Uterus: intact P: 3 Patient's last menstrual period was 12/13/03 Exogenous Hormone Use: Used OCPs for about 10 years. Used an estrogen patch for 10 years about 20 years ago. Oral Contraceptives Estrogen Progesterone FAMILY HISTORY: FAMILY HISTORY Problem Relation Age of Onset Cancer Father =lung, liver , pancreas Heart Father Diabetes Paternal Grandfather Diabetes Maternal Grandmother The patient is not of Ashkenazic Ancestry. Breast cancer: Negative Ovarian cancer:Negative SOCIAL HISTORY: Occupation: Retired Social History Tobacco Use Smoking status: Former Types: Cigarettes Quit date: 05/14/1980 Years since quittin.6 Smokeless tobacco: Never Substance Use Topics Alcohol use: Yes Comment: one a Year Drug use: No ACTIVE PROBLEM LIST Malignant Neoplasm of Upper-Inner Quadrant of Right Breast in Female, Estrogen Receptor Positive (Hcc) - 12/22/2022 Contact Dermatitis and Other Eczema Due to Detergents - 06/09/2012 Rosacea - 06/09/2012 Postinflammatory Skin Changes - 06/09/2012 Other Seborrheic Dermatitis - 06/09/2012 Telangiectasia - 06/09/2012 Xerosis Cutis - 06/09/2012 Actinic Skin Damage - 06/09/2012 Neuropathic Pain of Foot - 06/09/2012 Hyperpigmentation Due to Minocycline - 06/09/2012 Depressive Disorder, Not Elsewhere Classified - 04/21/2011 Cystocele, Midline - 04/21/2011 Symptomatic Menopausal Or Female Climacteric States - 02/06/2007 Postmenopausal Atrophic Vaginitis - 02/06/2007 Lump Or Mass in Breast - 02/06/2007 Unspecified Noninflammatory Disorder of Vulva and Perineum - 02/06/2007 CURRENT MEDICATIONS: levothyroxine (SYNTHROID) 150 mcg tablet Take 1 tablet by mouth once daily. diphenhydrAMINE (BENADRYL) 25 mg capsule Take by mouth. VITAMIN B COMPLEX ORAL Take by mouth. rosuvastatin (CRESTOR) 20 mg tablet Take 1 tablet by mouth every afternoon. olmesartan (BENICAR) 40 mg tablet Pregabalin (LYRICA) 200 mg capsule metFORMIN ER (GLUCOPHAGE XR) 500 mg 24 hr tablet insulin glargine,hum.rec.anlog (TOUJEO SOLOSTAR U-300 INSULIN SUBCUTANEOUS) (Patient not taking: Reported on 12/22/2022) HUMALOG KWIKPEN INSULIN 200 unit/mL (3 mL) injection insulin glargine U-300 conc (TOUJEO SOLOSTAR U-300 INSULIN) 300 unit/mL (1.5 mL) INJECT 70 UNITS SUBCUTANEOUSLY AT BEDTIME Alpha Lipoic Acid 100 mg cap cholecalciferol, vitamin D3, (D3-2000 ORAL) Magnesium 200 mg tab metroNIDAZOLE (METROGEL) 1 % gel .Apply to entire affected area(s) of rosacea on face QDay as directed and can increase up to bid prn flaring or as needed and tolerated. INSULIN DETEMIR (LEVEMIR SUBCUTANEOUS) Inject subcutaneously once daily. LIRAGLUTIDE (VICTOZA 3-BEN SUBCUTANEOUS) Inject subcutaneously once daily. doxycycline 50 mg capsule Take one(1) capsule by mouth (with food OK) twice per day (bid) for flaring Rosacea as tolerated and directed. Can taper down to one (1) capsule by mouth per day when flaring has subsided, as directed. tretinoin (RETIN-A) 0.025 % topical cream Apply thin layer to face at entire sun-damaged skin area(s) every other day (qoday) up to once per day (qday) as directed and tolerated in the evening (1/2 hr after washing and at least 1/2 hr before bedtime) and wash off face in the AM before going outside. Beware of potential excess sun sensitivity, use sun protection. hydrocortisone 2.5 % lotion Apply to affected spots and/or area(s) of rash or irritated skin or flared Acne Rosacea on face and neck selectively qday to bid until clear as directed and tolerated. AVOID eyes and eyelids. NB: Needs 3-month supply. venlafaxine XR (EFFEXOR XR) 75 mg ORAL 24 hr capsule Take 1 capsule by mouth once daily. olmesartan (BENICAR) 20 mg ORAL tablet Take 20 mg by mouth once daily. Take one(1) tablet daily. simvastatin 20 mg ORAL tablet Take 20 mg by mouth daily at bedtime. Take one(1) tablet daily. levothyroxine sodium(SYNTHROID 150 MCG TAB) Take one(1) tablet daily. ALLERGIES No Known Allergies REVIEW OF SYSTEMS: GENERAL: No weight loss, malaise or fevers HEENT: Negative for frequent or significant headaches, No changes in hearing or vision RESPIRATORY: Negative for cough, wheezing, or shortness of breath CARDIOVASCULAR: Negative for chest pain, leg swelling, or heart palpitations MUSCULOSKELETAL: Negative for joint pain or swelling, back pain or muscle pain, no upper extremity swelling or lymphedema ABD: no abdominal pain INTEGUMENTARY: Denies Scleroderma or Lupus. Denies chronic skin conditions. BREASTS: Denies skin changes, nipple discharge, nipple retraction, breast pain or masses in her axilla. Admits to a large palpalbe mass in the upper inner portion of her RIGHT breast All other reviewed and negative other than HPI. OBJECTIVE: PHYSICAL EXAM: Ht 154.9 cm (5' 1 ) Wt 78 kg (172 lb) BMI 32.50 kg/m GENERAL:well-nourished, healthy, alert and oriented x 3, calm SKIN:warm, dry, skin color, texture, turgor normal HEAD/EYES:normocephalic, atraumatic, and anicteric NECK: supple, symmetrical, no thyromegaly RESPIRATORY: Respirations regular & non-labored ABDOMEN: soft, nondistended. No hepatomegaly., No masses MUSCULOSKELETAL: No observed limitations in range of motion of upper extremities. Patient ambulates independently BREASTS: The Patient was examined in the upright and supine positions. Breasts are symmetric. There are no significant fibrocystic changes. Patient's cup size is D The patient was examined in the upright and supine position. RIGHT breast soft, there is a large dominant 5-6 cm lobular, ill defined mass in the upper inner breast, no overlying skin or underlying muscle involvement, nipple everted, no discharge, no skin changes RIGHT axilla no palpable axillary lymphadenopathy LEFT breast soft, no dominant masses, nipple everted, no discharge, no skin changes LEFT axilla no palpable axillary lymphadenopathy Regional Lymph Nodes: There is no concerning supraclavicular, infraclavicular or cervical lymphadenopathy. IMAGING TO DATE: PROCEDURE REASON: Previous report is inadequate. * * * * Physician Interpretation * * * * EXAMINATION: OUTSIDE IMAGING INTERPRETATION Indication for the Request / Reason for Over read: Previous report is inadequate. Service Requesting Consult: Breast Surgery Any specific Issue(s) to be discussed: 2nd opinion Images Reviewed: Mammography and breast ultrasound dated 11/10/2022. Right breast ultrasound dated 11/15/2022. Right axillary ultrasound dated 11/29/2022. Over read Date: 12/19/2022 1:55 PM IMAGING FINDINGS: Bilateral diagnostic mammogram dated 11/10/2022: There are multiple masses in the upper inner aspect of the right breast, mid depth. There is architectural distortion surrounding this region. The masses span approximately 5.7 x 6.8 cm. No suspicious masses, architectural distortion, or calcifications in the left breast. Right breast ultrasound dated 11/10/2022: In the scanned region of the right breast labeled as the upper inner quadrant, there are multiple irregular, hypoechoic masses which display posterior acoustic shadowing and internal vascularity. The largest imaged region is at the 1:00 position, 12 cm from the nipple, measuring 1.4 x 2.7 x 1 cm. Right breast ultrasound-guided biopsy dated 11/15/2022: An irregular, hypoechoic mass resembling the above-noted largest lesion at the 1:00 position noted above is seen on initial imaging, although the images are not definitively labeled. Multiple passes of a biopsy needle through this mass are then seen. Right axillary ultrasound dated 11/29/2022: Normal-appearing lymph nodes are seen in the imaged aspects of the right axilla. No abnormal lymph nodes are identified. IMPRESSION/RECOMMENDATIONS: 1. Conglomeration of masses in the right upper inner breast is compatible with known biopsy-proven malignancy. The biopsy report states that a clip was placed at the site of biopsy. However, post-clip mammogram is not provided. A right diagnostic mammogram is recommended to assess clip placement. MRI of the breasts could be considered to assess disease extent. Continued surgical consultation is recommended. Right breast and axilla ultrasounda dated 12/22/2022 There is a 2.9 cm x 2.5 cm x 2 cm oval area in the right breast at 11 o'clock middle depth 6 cm from the nipple. This oval area is of mixed echogenicity. This correlates with mammography findings. No significant abnormalities were seen sonographically in the right axilla. Ultrasound evaluation of the right breast demonstrates a conglomeration of masses with irregular and angular borders at the 12 o'clock position 7 cm from the nipple. This is all palpable to the patient. The area measures at least 4.6 x 2.4 x 3.2 cm. In addition in evaluating the upper outer quadrant there are other numerous hypoechoic highly suspicious subcentimeter masses extending until the 2 to 3 o'clock position. The larger masses measure as follow; 2 o'clock position 10 cm from the nipple is a hypoechoic solid mass in the posterior aspect measuring 1.2 x 1.3 x 1.2 cm. This is highly suspicious for an additional satellite lesion. Ultrasound-guided biopsy can be performed if surgically indicated. 2:00 6 cm from the nipple is a hypoechoic lobulated irregular solid suspicious mass measuring 0.8 x 0.7 x 0.7 cm. IMPRESSION: HIGHLY SUGGESTIVE OF MALIGNANCY - APPROPRIATE ACTION SHOULD BE TAKEN The 2.9 cm x 2.5 cm x 2 cm oval area in the right breast most likely is fibroglandular tissue or a fibrous ridge and is at a low suspicion for malignancy. A surgical consult is recommended. Right diagnostic mammogram dated 12/22/2022 There are multiple coalescent irregular masses in the central to upper and inner right breast measuring on mammography at least 6.6 x 5.8 x 7.3 cm. There is a biopsy ribbon clip identified in the superior midportion of the coalescent cluster of masses. The ultrasound guided biopsy was performed at the other institution with a result of multifocal invasive ductal carcinoma. In addition there is a patch of tissue in the upper outer quadrant of the breast measuring approximately 3 cm most likely representing fibroglandular tissue however with no previous older mammograms for comparison this is difficult to say. Further evaluation of the known multifocal IDC will be performed with ultrasound as well as evaluation of the upper outer quadrant. No significant masses, calcifications, or other findings are seen in the breast. PATHOLOGY RESULTS: Outside [facility] Pathology read at [facility] pending IDC grade 2 ER+ HI+ Her2 non-amplified by FISH OVERREAD FINAL DIAGNOSIS Outside case S [id number], collected 11/15/2022: Right breast, ultrasound-guided core biopsy: - Invasive ductal carcinoma, provisional histologic grade 2, measuring 13 mm in greatest dimension. - Received immunohistochemical stains show the following: ER: Positive, >90%, strong staining intensity. HI: Positive, 40%, weak to moderate staining intensity. HER2: Equivocal (2+) - Per outside report, HER2 FISH is not amplified (ratio 1.3, HER2 signal copy, 3.6) ASSESSMENT: Suleiman Ramsey is a 77 year old female with a RIGHT breast 6.8 cm span of disease @ 1:00. LN appear normal. Bx (ribbon clip) shows IDC, NG 2. ER+HI+HER2- [id number] PLAN: DIAGNOSIS: (C50.211, Z17.0) Malignant neoplasm of upper-inner quadrant of right breast in female, estrogen receptor positive (HCC) (primary encounter diagnosis) I have examined Ms. Ramsey and reviewed the physical findings, imaging and pathology reports with her. A discussion was held with the patient regarding the local-regional, as well as systemic treatment of her Breast Cancer. We discussed role of breast conservation surgery or mastectomy, indications and risks of sentinel lymph node biopsy, possibility of axillary lymph node dissection, breast reconstruction, and role of systemic and radiation therapy. We discussed that due to the extent of disease (tumor span/size), mastectomy is indicated. We discussed reconstruction. She is seeing Dr. Dinh today to discuss reconstruction options. Realistically, she has uncontrolled diabetes, so immediate reconstruction may not be ideal due to complication risk. Will need better DM control REFERRAL(S) for breast cancer treatment planning considerations: Medical oncology consultation and Radiation oncology consultation (Dr. Chowdhury and Dr. Barry) Due to tumor biology, despite size, her lymph nodes appear clinically normal and ER+, so no indication for NAC, she is resectable. Did discuss need for potential PMRT based on final tumor size and LN status Tentative plan: RIGHT simple mastectomy, RIGHT sentinel lymph node mapping and biopsy We reviewed the mastectomy procedure, where the scars are placed, the lymph node injection and biopsy procedure, the post-op course (will have a drain) recover restrictions and activity. All questions were answered and the patient had no further concerns at this time was given our contact information if she has any further questions or concerns. Micki Parkinson DO, FACS Breast Surgeon [facility] Cc: Dr. Cebujavier Yi documented in this encounter [facility] 12-20-2022 Miscellaneous Notes Called and spoke to pt regarding her imaging review. Informed pt she needs a right mammogram for post clip placement. She verbalized understanding. Offered pt this Sunday at 8:30 am before she sees . pt and agreed to this time and date. Brandy Garay LPN documented in this encounter [facility] 12-13-2022 Miscellaneous Notes Called and spoke to pt daughter regarding her moms up coming appointment with Dr. Parkinson on 12/22. Went over additional appointments she may or may not need. I maging received and what (MMG/US/MRI - radiology reviewed yet? In process from [facility]. no other imaging in over 10 years Pathology slides sent / reviewed? Requested from [facility] Consults: Breast psych (Ag) not at this time Med onc pt has oncologist she is est with at [facility]. Rad onc no pt is thinking mastectomy Plastics requesting . I answered all questions and she thanked me for the call. Brandy Garay LPN documented in this encounter [facility] 08-19-2013 Miscellaneous Notes Patient needs Rx. refill of Doxycycline 50 mg. She states this has been helping her rosacea. Taking has been taking twice daily, then 3 days took 100 mg daily. Now plans to use medication 50 mg daily, unless flaring. uses [facility] to fax. Has apt. September 11. Dang Keller LPN documented in this encounter [facility] documented as of this encounter (statuses as of 09/08/2020) [facility]05-11-2011 History of Past illness Narrative* Problem Noted Date Diagnosed Date Resolved Date Minocycline pigmentation 09/21/2010 Actinic keratosis 10/26/2008 06/09/2012 Other seborrheic dermatitis 10/26/2008 06/09/2012 Viral warts, unspecified 10/26/2008 TELANG///CAPILLARY DIS NEC/NOS 08/16/2006 06/09/2012 ACTINIC DAMAGE//CHR SOLAR SKIN DAMAGE NOS 08/16/2006 06/09/2012 SOLAR LENTIGINES///DYSCHROMIA OTHER 08/16/2006 06/09/2012 Contact dermatitis and other eczema, due to unspecified cause 08/16/2006 06/09/2012 Rosacea 08/31/2005 06/09/2012 Seborrheic dermatitis, unspecified 08/31/2005 06/09/2012 documented as of this encounter (statuses as of 12/13/2022) [facility] History of Past illness Narrative* Problem Noted Date Diagnosed Date Resolved Date Minocycline pigmentation 09/21/2010 Actinic keratosis 10/26/2008 06/09/2012 Other seborrheic dermatitis 10/26/2008 06/09/2012 Viral warts, unspecified 10/26/2008 TELANG///CAPILLARY DIS NEC/NOS 08/16/2006 06/09/2012 ACTINIC DAMAGE//CHR SOLAR SKIN DAMAGE NOS 08/16/2006 06/09/2012 SOLAR LENTIGINES///DYSCHROMIA OTHER 08/16/2006 06/09/2012 Contact dermatitis and other eczema, due to unspecified cause 08/16/2006 06/09/2012 Rosacea 08/31/2005 06/09/2012 Seborrheic dermatitis, unspecified 08/31/2005 06/09/2012 documented as of this encounter (statuses as of 12/13/2022) [facility] History of Past illness Narrative* Problem Noted Date Diagnosed Date Resolved Date Minocycline pigmentation 09/21/2010 Actinic keratosis 10/26/2008 06/09/2012 Other seborrheic dermatitis 10/26/2008 06/09/2012 Viral warts, unspecified 10/26/2008 TELANG///CAPILLARY DIS NEC/NOS 08/16/2006 06/09/2012 ACTINIC DAMAGE//CHR SOLAR SKIN DAMAGE NOS 08/16/2006 06/09/2012 SOLAR LENTIGINES///DYSCHROMIA OTHER 08/16/2006 06/09/2012 Contact dermatitis and other eczema, due to unspecified cause 08/16/2006 06/09/2012 Rosacea 08/31/2005 06/09/2012 Seborrheic dermatitis, unspecified 08/31/2005 06/09/2012 documented as of this encounter (statuses as of 12/15/2022) [facility] History of Past illness Narrative* Problem Noted Date Diagnosed Date Resolved Date Minocycline pigmentation 09/21/2010 Actinic keratosis 10/26/2008 06/09/2012 Other seborrheic dermatitis 10/26/2008 06/09/2012 Viral warts, unspecified 10/26/2008 TELANG///CAPILLARY DIS NEC/NOS 08/16/2006 06/09/2012 ACTINIC DAMAGE//CHR SOLAR SKIN DAMAGE NOS 08/16/2006 06/09/2012 SOLAR LENTIGINES///DYSCHROMIA OTHER 08/16/2006 06/09/2012 Contact dermatitis and other eczema, due to unspecified cause 08/16/2006 06/09/2012 Rosacea 08/31/2005 06/09/2012 Seborrheic dermatitis, unspecified 08/31/2005 06/09/2012 documented as of this encounter (statuses as of 12/20/2022) [facility] History of Past illness Narrative* Problem Noted Date Diagnosed Date Resolved Date Minocycline pigmentation 09/21/2010 Actinic keratosis 10/26/2008 06/09/2012 Other seborrheic dermatitis 10/26/2008 06/09/2012 Viral warts, unspecified 10/26/2008 TELANG///CAPILLARY DIS NEC/NOS 08/16/2006 06/09/2012 ACTINIC DAMAGE//CHR SOLAR SKIN DAMAGE NOS 08/16/2006 06/09/2012 SOLAR LENTIGINES///DYSCHROMIA OTHER 08/16/2006 06/09/2012 Contact dermatitis and other eczema, due to unspecified cause 08/16/2006 06/09/2012 Rosacea 08/31/2005 06/09/2012 Seborrheic dermatitis, unspecified 08/31/2005 06/09/2012 documented as of this encounter (statuses as of 12/25/2022) [facility] History of Past illness Narrative* Problem Noted Date Diagnosed Date Resolved Date Minocycline pigmentation 09/21/2010 Actinic keratosis 10/26/2008 06/09/2012 Other seborrheic dermatitis 10/26/2008 06/09/2012 Viral warts, unspecified 10/26/2008 TELANG///CAPILLARY DIS NEC/NOS 08/16/2006 06/09/2012 ACTINIC DAMAGE//CHR SOLAR SKIN DAMAGE NOS 08/16/2006 06/09/2012 SOLAR LENTIGINES///DYSCHROMIA OTHER 08/16/2006 06/09/2012 Contact dermatitis and other eczema, due to unspecified cause 08/16/2006 06/09/2012 Rosacea 08/31/2005 06/09/2012 Seborrheic dermatitis, unspecified 08/31/2005 06/09/2012 documented as of this encounter (statuses as of 12/26/2022) [facility] History of Past illness Narrative* Problem Noted Date Diagnosed Date Resolved Date Minocycline pigmentation 09/21/2010 Actinic keratosis 10/26/2008 06/09/2012 Other seborrheic dermatitis 10/26/2008 06/09/2012 Viral warts, unspecified 10/26/2008 TELANG///CAPILLARY DIS NEC/NOS 08/16/2006 06/09/2012 ACTINIC DAMAGE//CHR SOLAR SKIN DAMAGE NOS 08/16/2006 06/09/2012 SOLAR LENTIGINES///DYSCHROMIA OTHER 08/16/2006 06/09/2012 Contact dermatitis and other eczema, due to unspecified cause 08/16/2006 06/09/2012 Rosacea 08/31/2005 06/09/2012 Seborrheic dermatitis, unspecified 08/31/2005 06/09/2012 documented as of this encounter (statuses as of 12/26/2022) [facility] History of Past illness Narrative* Problem Noted Date Diagnosed Date Resolved Date Minocycline pigmentation 09/21/2010 Actinic keratosis 10/26/2008 06/09/2012 Other seborrheic dermatitis 10/26/2008 06/09/2012 Viral warts, unspecified 10/26/2008 TELANG///CAPILLARY DIS NEC/NOS 08/16/2006 06/09/2012 ACTINIC DAMAGE//CHR SOLAR SKIN DAMAGE NOS 08/16/2006 06/09/2012 SOLAR LENTIGINES///DYSCHROMIA OTHER 08/16/2006 06/09/2012 Contact dermatitis and other eczema, due to unspecified cause 08/16/2006 06/09/2012 Rosacea 08/31/2005 06/09/2012 Seborrheic dermatitis, unspecified 08/31/2005 06/09/2012 documented as of this encounter (statuses as of 12/29/2022) [facility] History of Past illness Narrative* Problem Noted Date Diagnosed Date Resolved Date Minocycline pigmentation 09/21/2010 Actinic keratosis 10/26/2008 06/09/2012 Other seborrheic dermatitis 10/26/2008 06/09/2012 Viral warts, unspecified 10/26/2008 TELANG///CAPILLARY DIS NEC/NOS 08/16/2006 06/09/2012 ACTINIC DAMAGE//CHR SOLAR SKIN DAMAGE NOS 08/16/2006 06/09/2012 SOLAR LENTIGINES///DYSCHROMIA OTHER 08/16/2006 06/09/2012 Contact dermatitis and other eczema, due to unspecified cause 08/16/2006 06/09/2012 Rosacea 08/31/2005 06/09/2012 Seborrheic dermatitis, unspecified 08/31/2005 06/09/2012 documented as of this encounter (statuses as of 01/03/2023) [facility] History of Past illness Narrative* Problem Noted Date Diagnosed Date Resolved Date Minocycline pigmentation 09/21/2010 Actinic keratosis 10/26/2008 06/09/2012 Other seborrheic dermatitis 10/26/2008 06/09/2012 Viral warts, unspecified 10/26/2008 TELANG///CAPILLARY DIS NEC/NOS 08/16/2006 06/09/2012 ACTINIC DAMAGE//CHR SOLAR SKIN DAMAGE NOS 08/16/2006 06/09/2012 SOLAR LENTIGINES///DYSCHROMIA OTHER 08/16/2006 06/09/2012 Contact dermatitis and other eczema, due to unspecified cause 08/16/2006 06/09/2012 Rosacea 08/31/2005 06/09/2012 Seborrheic dermatitis, unspecified 08/31/2005 06/09/2012 documented as of this encounter (statuses as of 01/05/2023) [facility] History of Past illness Narrative* Problem Noted Date Diagnosed Date Resolved Date Minocycline pigmentation 09/21/2010 Actinic keratosis 10/26/2008 06/09/2012 Other seborrheic dermatitis 10/26/2008 06/09/2012 Viral warts, unspecified 10/26/2008 TELANG///CAPILLARY DIS NEC/NOS 08/16/2006 06/09/2012 ACTINIC DAMAGE//CHR SOLAR SKIN DAMAGE NOS 08/16/2006 06/09/2012 SOLAR LENTIGINES///DYSCHROMIA OTHER 08/16/2006 06/09/2012 Contact dermatitis and other eczema, due to unspecified cause 08/16/2006 06/09/2012 Rosacea 08/31/2005 06/09/2012 Seborrheic dermatitis, unspecified 08/31/2005 06/09/2012 documented as of this encounter (statuses as of 01/05/2023) [facility] History of Past illness Narrative* Problem Noted Date Diagnosed Date Resolved Date Minocycline pigmentation 09/21/2010 Actinic keratosis 10/26/2008 06/09/2012 Other seborrheic dermatitis 10/26/2008 06/09/2012 Viral warts, unspecified 10/26/2008 TELANG///CAPILLARY DIS NEC/NOS 08/16/2006 06/09/2012 ACTINIC DAMAGE//CHR SOLAR SKIN DAMAGE NOS 08/16/2006 06/09/2012 SOLAR LENTIGINES///DYSCHROMIA OTHER 08/16/2006 06/09/2012 Contact dermatitis and other eczema, due to unspecified cause 08/16/2006 06/09/2012 Rosacea 08/31/2005 06/09/2012 Seborrheic dermatitis, unspecified 08/31/2005 06/09/2012 documented as of this encounter (statuses as of 01/09/2023) [facility] History of Past illness Narrative* Problem Noted Date Diagnosed Date Resolved Date Minocycline pigmentation 09/21/2010 Actinic keratosis 10/26/2008 06/09/2012 Other seborrheic dermatitis 10/26/2008 06/09/2012 Viral warts, unspecified 10/26/2008 TELANG///CAPILLARY DIS NEC/NOS 08/16/2006 06/09/2012 ACTINIC DAMAGE//CHR SOLAR SKIN DAMAGE NOS 08/16/2006 06/09/2012 SOLAR LENTIGINES///DYSCHROMIA OTHER 08/16/2006 06/09/2012 Contact dermatitis and other eczema, due to unspecified cause 08/16/2006 06/09/2012 Rosacea 08/31/2005 06/09/2012 Seborrheic dermatitis, unspecified 08/31/2005 06/09/2012 documented as of this encounter (statuses as of 01/09/2023) [facility] History of Past illness Narrative* Problem Noted Date Diagnosed Date Resolved Date Minocycline pigmentation 09/21/2010 Actinic keratosis 10/26/2008 06/09/2012 Other seborrheic dermatitis 10/26/2008 06/09/2012 Viral warts, unspecified 10/26/2008 TELANG///CAPILLARY DIS NEC/NOS 08/16/2006 06/09/2012 ACTINIC DAMAGE//CHR SOLAR SKIN DAMAGE NOS 08/16/2006 06/09/2012 SOLAR LENTIGINES///DYSCHROMIA OTHER 08/16/2006 06/09/2012 Contact dermatitis and other eczema, due to unspecified cause 08/16/2006 06/09/2012 Rosacea 08/31/2005 06/09/2012 Seborrheic dermatitis, unspecified 08/31/2005 06/09/2012 documented as of this encounter (statuses as of 01/09/2023) [facility] History of Past illness Narrative* Problem Noted Date Diagnosed Date Resolved Date Minocycline pigmentation 09/21/2010 Actinic keratosis 10/26/2008 06/09/2012 Other seborrheic dermatitis 10/26/2008 06/09/2012 Viral warts, unspecified 10/26/2008 TELANG///CAPILLARY DIS NEC/NOS 08/16/2006 06/09/2012 ACTINIC DAMAGE//CHR SOLAR SKIN DAMAGE NOS 08/16/2006 06/09/2012 SOLAR LENTIGINES///DYSCHROMIA OTHER 08/16/2006 06/09/2012 Contact dermatitis and other eczema, due to unspecified cause 08/16/2006 06/09/2012 Rosacea 08/31/2005 06/09/2012 Seborrheic dermatitis, unspecified 08/31/2005 06/09/2012 documented as of this encounter (statuses as of 01/10/2023) [facility] History of Past illness Narrative* Problem Noted Date Diagnosed Date Resolved Date Minocycline pigmentation 09/21/2010 Actinic keratosis 10/26/2008 06/09/2012 Other seborrheic dermatitis 10/26/2008 06/09/2012 Viral warts, unspecified 10/26/2008 TELANG///CAPILLARY DIS NEC/NOS 08/16/2006 06/09/2012 ACTINIC DAMAGE//CHR SOLAR SKIN DAMAGE NOS 08/16/2006 06/09/2012 SOLAR LENTIGINES///DYSCHROMIA OTHER 08/16/2006 06/09/2012 Contact dermatitis and other eczema, due to unspecified cause 08/16/2006 06/09/2012 Rosacea 08/31/2005 06/09/2012 Seborrheic dermatitis, unspecified 08/31/2005 06/09/2012 documented as of this encounter (statuses as of 01/10/2023) [facility] History of Past illness Narrative* Problem Noted Date Diagnosed Date Resolved Date Minocycline pigmentation 09/21/2010 Actinic keratosis 10/26/2008 06/09/2012 Other seborrheic dermatitis 10/26/2008 06/09/2012 Viral warts, unspecified 10/26/2008 TELANG///CAPILLARY DIS NEC/NOS 08/16/2006 06/09/2012 ACTINIC DAMAGE//CHR SOLAR SKIN DAMAGE NOS 08/16/2006 06/09/2012 SOLAR LENTIGINES///DYSCHROMIA OTHER 08/16/2006 06/09/2012 Contact dermatitis and other eczema, due to unspecified cause 08/16/2006 06/09/2012 Rosacea 08/31/2005 06/09/2012 Seborrheic dermatitis, unspecified 08/31/2005 06/09/2012 documented as of this encounter (statuses as of 01/11/2023) [facility] History of Past illness Narrative* Problem Noted Date Diagnosed Date Resolved Date Minocycline pigmentation 09/21/2010 Actinic keratosis 10/26/2008 06/09/2012 Other seborrheic dermatitis 10/26/2008 06/09/2012 Viral warts, unspecified 10/26/2008 TELANG///CAPILLARY DIS NEC/NOS 08/16/2006 06/09/2012 ACTINIC DAMAGE//CHR SOLAR SKIN DAMAGE NOS 08/16/2006 06/09/2012 SOLAR LENTIGINES///DYSCHROMIA OTHER 08/16/2006 06/09/2012 Contact dermatitis and other eczema, due to unspecified cause 08/16/2006 06/09/2012 Rosacea 08/31/2005 06/09/2012 Seborrheic dermatitis, unspecified 08/31/2005 06/09/2012 documented as of this encounter (statuses as of 01/18/2023) [facility] History of Past illness Narrative* Problem Noted Date Diagnosed Date Resolved Date Minocycline pigmentation 09/21/2010 Actinic keratosis 10/26/2008 06/09/2012 Other seborrheic dermatitis 10/26/2008 06/09/2012 Viral warts, unspecified 10/26/2008 TELANG///CAPILLARY DIS NEC/NOS 08/16/2006 06/09/2012 ACTINIC DAMAGE//CHR SOLAR SKIN DAMAGE NOS 08/16/2006 06/09/2012 SOLAR LENTIGINES///DYSCHROMIA OTHER 08/16/2006 06/09/2012 Contact dermatitis and other eczema, due to unspecified cause 08/16/2006 06/09/2012 Rosacea 08/31/2005 06/09/2012 Seborrheic dermatitis, unspecified 08/31/2005 06/09/2012 documented as of this encounter (statuses as of 01/19/2023) [facility] History of Past illness Narrative* Problem Noted Date Diagnosed Date Resolved Date Minocycline pigmentation 09/21/2010 Actinic keratosis 10/26/2008 06/09/2012 Other seborrheic dermatitis 10/26/2008 06/09/2012 Viral warts, unspecified 10/26/2008 TELANG///CAPILLARY DIS NEC/NOS 08/16/2006 06/09/2012 ACTINIC DAMAGE//CHR SOLAR SKIN DAMAGE NOS 08/16/2006 06/09/2012 SOLAR LENTIGINES///DYSCHROMIA OTHER 08/16/2006 06/09/2012 Contact dermatitis and other eczema, due to unspecified cause 08/16/2006 06/09/2012 Rosacea 08/31/2005 06/09/2012 Seborrheic dermatitis, unspecified 08/31/2005 06/09/2012 documented as of this encounter (statuses as of 01/25/2023) [facility] History of Past illness Narrative* Problem Noted Date Diagnosed Date Resolved Date Minocycline pigmentation 09/21/2010 Actinic keratosis 10/26/2008 06/09/2012 Other seborrheic dermatitis 10/26/2008 06/09/2012 Viral warts, unspecified 10/26/2008 TELANG///CAPILLARY DIS NEC/NOS 08/16/2006 06/09/2012 ACTINIC DAMAGE//CHR SOLAR SKIN DAMAGE NOS 08/16/2006 06/09/2012 SOLAR LENTIGINES///DYSCHROMIA OTHER 08/16/2006 06/09/2012 Contact dermatitis and other eczema, due to unspecified cause 08/16/2006 06/09/2012 Rosacea 08/31/2005 06/09/2012 Seborrheic dermatitis, unspecified 08/31/2005 06/09/2012 documented as of this encounter (statuses as of 01/26/2023) [facility] History of Past illness Narrative* Problem Noted Date Diagnosed Date Resolved Date Minocycline pigmentation 09/21/2010 Actinic keratosis 10/26/2008 06/09/2012 Other seborrheic dermatitis 10/26/2008 06/09/2012 Viral warts, unspecified 10/26/2008 TELANG///CAPILLARY DIS NEC/NOS 08/16/2006 06/09/2012 ACTINIC DAMAGE//CHR SOLAR SKIN DAMAGE NOS 08/16/2006 06/09/2012 SOLAR LENTIGINES///DYSCHROMIA OTHER 08/16/2006 06/09/2012 Contact dermatitis and other eczema, due to unspecified cause 08/16/2006 06/09/2012 Rosacea 08/31/2005 06/09/2012 Seborrheic dermatitis, unspecified 08/31/2005 06/09/2012 documented as of this encounter (statuses as of 02/03/2023) [facility] History of Past illness Narrative* Problem Noted Date Diagnosed Date Resolved Date Minocycline pigmentation 09/21/2010 Actinic keratosis 10/26/2008 06/09/2012 Other seborrheic dermatitis 10/26/2008 06/09/2012 Viral warts, unspecified 10/26/2008 TELANG///CAPILLARY DIS NEC/NOS 08/16/2006 06/09/2012 ACTINIC DAMAGE//CHR SOLAR SKIN DAMAGE NOS 08/16/2006 06/09/2012 SOLAR LENTIGINES///DYSCHROMIA OTHER 08/16/2006 06/09/2012 Contact dermatitis and other eczema, due to unspecified cause 08/16/2006 06/09/2012 Rosacea 08/31/2005 06/09/2012 Seborrheic dermatitis, unspecified 08/31/2005 06/09/2012 documented as of this encounter (statuses as of 02/06/2023) [facility] History of Past illness Narrative* Problem Noted Date Diagnosed Date Resolved Date Minocycline pigmentation 09/21/2010 Actinic keratosis 10/26/2008 06/09/2012 Other seborrheic dermatitis 10/26/2008 06/09/2012 Viral warts, unspecified 10/26/2008 TELANG///CAPILLARY DIS NEC/NOS 08/16/2006 06/09/2012 ACTINIC DAMAGE//CHR SOLAR SKIN DAMAGE NOS 08/16/2006 06/09/2012 SOLAR LENTIGINES///DYSCHROMIA OTHER 08/16/2006 06/09/2012 Contact dermatitis and other eczema, due to unspecified cause 08/16/2006 06/09/2012 Rosacea 08/31/2005 06/09/2012 Seborrheic dermatitis, unspecified 08/31/2005 06/09/2012 documented as of this encounter (statuses as of 02/22/2023) [facility] History of Past illness Narrative* Problem Noted Date Diagnosed Date Resolved Date Minocycline pigmentation 09/21/2010 Actinic keratosis 10/26/2008 06/09/2012 Other seborrheic dermatitis 10/26/2008 06/09/2012 Viral warts, unspecified 10/26/2008 TELANG///CAPILLARY DIS NEC/NOS 08/16/2006 06/09/2012 ACTINIC DAMAGE//CHR SOLAR SKIN DAMAGE NOS 08/16/2006 06/09/2012 SOLAR LENTIGINES///DYSCHROMIA OTHER 08/16/2006 06/09/2012 Contact dermatitis and other eczema, due to unspecified cause 08/16/2006 06/09/2012 Rosacea 08/31/2005 06/09/2012 Seborrheic dermatitis, unspecified 08/31/2005 06/09/2012 documented as of this encounter (statuses as of 02/22/2023) [facility] History of Past illness Narrative* Problem Noted Date Diagnosed Date Resolved Date Minocycline pigmentation 09/21/2010 Actinic keratosis 10/26/2008 06/09/2012 Other seborrheic dermatitis 10/26/2008 06/09/2012 Viral warts, unspecified 10/26/2008 TELANG///CAPILLARY DIS NEC/NOS 08/16/2006 06/09/2012 ACTINIC DAMAGE//CHR SOLAR SKIN DAMAGE NOS 08/16/2006 06/09/2012 SOLAR LENTIGINES///DYSCHROMIA OTHER 08/16/2006 06/09/2012 Contact dermatitis and other eczema, due to unspecified cause 08/16/2006 06/09/2012 Rosacea 08/31/2005 06/09/2012 Seborrheic dermatitis, unspecified 08/31/2005 06/09/2012 documented as of this encounter (statuses as of 02/24/2023) [facility] History of Past illness Narrative* Problem Noted Date Diagnosed Date Resolved Date Minocycline pigmentation 09/21/2010 Actinic keratosis 10/26/2008 06/09/2012 Other seborrheic dermatitis 10/26/2008 06/09/2012 Viral warts, unspecified 10/26/2008 TELANG///CAPILLARY DIS NEC/NOS 08/16/2006 06/09/2012 ACTINIC DAMAGE//CHR SOLAR SKIN DAMAGE NOS 08/16/2006 06/09/2012 SOLAR LENTIGINES///DYSCHROMIA OTHER 08/16/2006 06/09/2012 Contact dermatitis and other eczema, due to unspecified cause 08/16/2006 06/09/2012 Rosacea 08/31/2005 06/09/2012 Seborrheic dermatitis, unspecified 08/31/2005 06/09/2012 documented as of this encounter (statuses as of 02/27/2023) [facility] History of Past illness Narrative* Problem Noted Date Diagnosed Date Resolved Date Minocycline pigmentation 09/21/2010 Actinic keratosis 10/26/2008 06/09/2012 Other seborrheic dermatitis 10/26/2008 06/09/2012 Viral warts, unspecified 10/26/2008 TELANG///CAPILLARY DIS NEC/NOS 08/16/2006 06/09/2012 ACTINIC DAMAGE//CHR SOLAR SKIN DAMAGE NOS 08/16/2006 06/09/2012 SOLAR LENTIGINES///DYSCHROMIA OTHER 08/16/2006 06/09/2012 Contact dermatitis and other eczema, due to unspecified cause 08/16/2006 06/09/2012 Rosacea 08/31/2005 06/09/2012 Seborrheic dermatitis, unspecified 08/31/2005 06/09/2012 documented as of this encounter (statuses as of 02/28/2023) [facility] History of Past illness Narrative* Problem Noted Date Diagnosed Date Resolved Date Minocycline pigmentation 09/21/2010 Actinic keratosis 10/26/2008 06/09/2012 Other seborrheic dermatitis 10/26/2008 06/09/2012 Viral warts, unspecified 10/26/2008 TELANG///CAPILLARY DIS NEC/NOS 08/16/2006 06/09/2012 ACTINIC DAMAGE//CHR SOLAR SKIN DAMAGE NOS 08/16/2006 06/09/2012 SOLAR LENTIGINES///DYSCHROMIA OTHER 08/16/2006 06/09/2012 Contact dermatitis and other eczema, due to unspecified cause 08/16/2006 06/09/2012 Rosacea 08/31/2005 06/09/2012 Seborrheic dermatitis, unspecified 08/31/2005 06/09/2012 documented as of this encounter (statuses as of 03/06/2023) [facility] History of Past illness Narrative* Problem Noted Date Diagnosed Date Resolved Date Minocycline pigmentation 09/21/2010 Actinic keratosis 10/26/2008 06/09/2012 Other seborrheic dermatitis 10/26/2008 06/09/2012 Viral warts, unspecified 10/26/2008 TELANG///CAPILLARY DIS NEC/NOS 08/16/2006 06/09/2012 ACTINIC DAMAGE//CHR SOLAR SKIN DAMAGE NOS 08/16/2006 06/09/2012 SOLAR LENTIGINES///DYSCHROMIA OTHER 08/16/2006 06/09/2012 Contact dermatitis and other eczema, due to unspecified cause 08/16/2006 06/09/2012 Rosacea 08/31/2005 06/09/2012 Seborrheic dermatitis, unspecified 08/31/2005 06/09/2012 documented as of this encounter (statuses as of 03/13/2023) [facility] History of Past illness Narrative* Problem Noted Date Diagnosed Date Resolved Date Minocycline pigmentation 09/21/2010 Actinic keratosis 10/26/2008 06/09/2012 Other seborrheic dermatitis 10/26/2008 06/09/2012 Viral warts, unspecified 10/26/2008 TELANG///CAPILLARY DIS NEC/NOS 08/16/2006 06/09/2012 ACTINIC DAMAGE//CHR SOLAR SKIN DAMAGE NOS 08/16/2006 06/09/2012 SOLAR LENTIGINES///DYSCHROMIA OTHER 08/16/2006 06/09/2012 Contact dermatitis and other eczema, due to unspecified cause 08/16/2006 06/09/2012 Rosacea 08/31/2005 06/09/2012 Seborrheic dermatitis, unspecified 08/31/2005 06/09/2012 documented as of this encounter (statuses as of 03/21/2023) [facility] History of Past illness Narrative* Problem Noted Date Diagnosed Date Resolved Date Minocycline pigmentation 09/21/2010 Actinic keratosis 10/26/2008 06/09/2012 Other seborrheic dermatitis 10/26/2008 06/09/2012 Viral warts, unspecified 10/26/2008 TELANG///CAPILLARY DIS NEC/NOS 08/16/2006 06/09/2012 ACTINIC DAMAGE//CHR SOLAR SKIN DAMAGE NOS 08/16/2006 06/09/2012 SOLAR LENTIGINES///DYSCHROMIA OTHER 08/16/2006 06/09/2012 Contact dermatitis and other eczema, due to unspecified cause 08/16/2006 06/09/2012 Rosacea 08/31/2005 06/09/2012 Seborrheic dermatitis, unspecified 08/31/2005 06/09/2012 documented as of this encounter (statuses as of 03/27/2023) [facility] History of Past illness Narrative* Problem Noted Date Diagnosed Date Resolved Date Minocycline pigmentation 09/21/2010 Actinic keratosis 10/26/2008 06/09/2012 Other seborrheic dermatitis 10/26/2008 06/09/2012 Viral warts, unspecified 10/26/2008 TELANG///CAPILLARY DIS NEC/NOS 08/16/2006 06/09/2012 ACTINIC DAMAGE//CHR SOLAR SKIN DAMAGE NOS 08/16/2006 06/09/2012 SOLAR LENTIGINES///DYSCHROMIA OTHER 08/16/2006 06/09/2012 Contact dermatitis and other eczema, due to unspecified cause 08/16/2006 06/09/2012 Rosacea 08/31/2005 06/09/2012 Seborrheic dermatitis, unspecified 08/31/2005 06/09/2012 documented as of this encounter (statuses as of 03/30/2023) [facility] History of Past illness Narrative* Problem Noted Date Diagnosed Date Resolved Date Minocycline pigmentation 09/21/2010 Actinic keratosis 10/26/2008 06/09/2012 Other seborrheic dermatitis 10/26/2008 06/09/2012 Viral warts, unspecified 10/26/2008 TELANG///CAPILLARY DIS NEC/NOS 08/16/2006 06/09/2012 ACTINIC DAMAGE//CHR SOLAR SKIN DAMAGE NOS 08/16/2006 06/09/2012 SOLAR LENTIGINES///DYSCHROMIA OTHER 08/16/2006 06/09/2012 Contact dermatitis and other eczema, due to unspecified cause 08/16/2006 06/09/2012 Rosacea 08/31/2005 06/09/2012 Seborrheic dermatitis, unspecified 08/31/2005 06/09/2012 documented as of this encounter (statuses as of 03/30/2023) [facility] History of Past illness Narrative* Problem Noted Date Diagnosed Date Resolved Date Minocycline pigmentation 09/21/2010 Actinic keratosis 10/26/2008 06/09/2012 Other seborrheic dermatitis 10/26/2008 06/09/2012 Viral warts, unspecified 10/26/2008 TELANG///CAPILLARY DIS NEC/NOS 08/16/2006 06/09/2012 ACTINIC DAMAGE//CHR SOLAR SKIN DAMAGE NOS 08/16/2006 06/09/2012 SOLAR LENTIGINES///DYSCHROMIA OTHER 08/16/2006 06/09/2012 Contact dermatitis and other eczema, due to unspecified cause 08/16/2006 06/09/2012 Rosacea 08/31/2005 06/09/2012 Seborrheic dermatitis, unspecified 08/31/2005 06/09/2012 documented as of this encounter (statuses as of 04/03/2023) [facility] History of Past illness Narrative* Problem Noted Date Diagnosed Date Resolved Date Minocycline pigmentation 09/21/2010 Actinic keratosis 10/26/2008 06/09/2012 Other seborrheic dermatitis 10/26/2008 06/09/2012 Viral warts, unspecified 10/26/2008 TELANG///CAPILLARY DIS NEC/NOS 08/16/2006 06/09/2012 ACTINIC DAMAGE//CHR SOLAR SKIN DAMAGE NOS 08/16/2006 06/09/2012 SOLAR LENTIGINES///DYSCHROMIA OTHER 08/16/2006 06/09/2012 Contact dermatitis and other eczema, due to unspecified cause 08/16/2006 06/09/2012 Rosacea 08/31/2005 06/09/2012 Seborrheic dermatitis, unspecified 08/31/2005 06/09/2012 documented as of this encounter (statuses as of 04/03/2023) [facility] History of Past illness Narrative* Problem Noted Date Diagnosed Date Resolved Date Minocycline pigmentation 09/21/2010 Actinic keratosis 10/26/2008 06/09/2012 Other seborrheic dermatitis 10/26/2008 06/09/2012 Viral warts, unspecified 10/26/2008 TELANG///CAPILLARY DIS NEC/NOS 08/16/2006 06/09/2012 ACTINIC DAMAGE//CHR SOLAR SKIN DAMAGE NOS 08/16/2006 06/09/2012 SOLAR LENTIGINES///DYSCHROMIA OTHER 08/16/2006 06/09/2012 Contact dermatitis and other eczema, due to unspecified cause 08/16/2006 06/09/2012 Rosacea 08/31/2005 06/09/2012 Seborrheic dermatitis, unspecified 08/31/2005 06/09/2012 documented as of this encounter (statuses as of 04/04/2023) [facility] History of Past illness Narrative* Problem Noted Date Diagnosed Date Resolved Date Minocycline pigmentation 09/21/2010 Actinic keratosis 10/26/2008 06/09/2012 Other seborrheic dermatitis 10/26/2008 06/09/2012 Viral warts, unspecified 10/26/2008 TELANG///CAPILLARY DIS NEC/NOS 08/16/2006 06/09/2012 ACTINIC DAMAGE//CHR SOLAR SKIN DAMAGE NOS 08/16/2006 06/09/2012 SOLAR LENTIGINES///DYSCHROMIA OTHER 08/16/2006 06/09/2012 Contact dermatitis and other eczema, due to unspecified cause 08/16/2006 06/09/2012 Rosacea 08/31/2005 06/09/2012 Seborrheic dermatitis, unspecified 08/31/2005 06/09/2012 documented as of this encounter (statuses as of 04/20/2023) [facility] History of Past illness Narrative* Problem Noted Date Diagnosed Date Resolved Date Minocycline pigmentation 09/21/2010 Actinic keratosis 10/26/2008 06/09/2012 Other seborrheic dermatitis 10/26/2008 06/09/2012 Viral warts, unspecified 10/26/2008 TELANG///CAPILLARY DIS NEC/NOS 08/16/2006 06/09/2012 ACTINIC DAMAGE//CHR SOLAR SKIN DAMAGE NOS 08/16/2006 06/09/2012 SOLAR LENTIGINES///DYSCHROMIA OTHER 08/16/2006 06/09/2012 Contact dermatitis and other eczema, due to unspecified cause 08/16/2006 06/09/2012 Rosacea 08/31/2005 06/09/2012 Seborrheic dermatitis, unspecified 08/31/2005 06/09/2012 documented as of this encounter (statuses as of 04/20/2023) [facility] History of Past illness Narrative* Problem Noted Date Diagnosed Date Resolved Date Minocycline pigmentation 09/21/2010 Actinic keratosis 10/26/2008 06/09/2012 Other seborrheic dermatitis 10/26/2008 06/09/2012 Viral warts, unspecified 10/26/2008 TELANG///CAPILLARY DIS NEC/NOS 08/16/2006 06/09/2012 ACTINIC DAMAGE//CHR SOLAR SKIN DAMAGE NOS 08/16/2006 06/09/2012 SOLAR LENTIGINES///DYSCHROMIA OTHER 08/16/2006 06/09/2012 Contact dermatitis and other eczema, due to unspecified cause 08/16/2006 06/09/2012 Rosacea 08/31/2005 06/09/2012 Seborrheic dermatitis, unspecified 08/31/2005 06/09/2012 documented as of this encounter (statuses as of 04/20/2023) [facility] History of Past illness Narrative* Problem Noted Date Diagnosed Date Resolved Date Minocycline pigmentation 09/21/2010 Actinic keratosis 10/26/2008 06/09/2012 Other seborrheic dermatitis 10/26/2008 06/09/2012 Viral warts, unspecified 10/26/2008 TELANG///CAPILLARY DIS NEC/NOS 08/16/2006 06/09/2012 ACTINIC DAMAGE//CHR SOLAR SKIN DAMAGE NOS 08/16/2006 06/09/2012 SOLAR LENTIGINES///DYSCHROMIA OTHER 08/16/2006 06/09/2012 Contact dermatitis and other eczema, due to unspecified cause 08/16/2006 06/09/2012 Rosacea 08/31/2005 06/09/2012 Seborrheic dermatitis, unspecified 08/31/2005 06/09/2012 documented as of this encounter (statuses as of 04/27/2023) [facility] note* Diagnosis Malignant neoplasm of female breast, unspecified estrogen receptor status, unspecified laterality, unspecified site of breast (HCC)- [facility] Diagnosis Malignant neoplasm of upper-inner quadrant of right breast in female, estrogen receptor positive (HCC)- Primary [facility] Diagnosis Bilateral malignant neoplasm involving both nipple and areola in female, unspecified estrogen receptor status (HCC)- Primary Malignant neoplasm of upper-inner quadrant of right breast in female, 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, estrogen receptor positive (HCC) [facility] Diagnosis Malignant neoplasm of upper-inner quadrant of right breast in female, estrogen receptor positive (HCC)- Primary Malignant neoplasm of upper-inner quadrant of right breast in female, estrogen receptor positive (HCC) [facility] Diagnosis Malignant neoplasm of upper-inner quadrant of right breast in female, estrogen receptor positive (HCC)- Primary Malignant neoplasm of upper-inner quadrant of right breast in female, estrogen receptor positive (HCC) [facility] Diagnosis Pre-op evaluation- Primary Preoperative examination, unspecified Essential hypertension, benign Pure hypercholesterolemia Unspecified hypothyroidism Type 2 diabetes mellitus without complication, with long-term current use of insulin (HCC) LBBB (left bundle branch block) Other left bundle branch block Malignant neoplasm of upper-inner quadrant of right breast in female, estrogen receptor positive (HCC) [facility] Diagnosis Malignant neoplasm of upper-inner quadrant of right breast in female, estrogen receptor positive (HCC)- [facility] Diagnosis Malignant neoplasm of upper-inner quadrant of right breast in female, estrogen receptor positive (HCC)- [facility] Diagnosis Malignant neoplasm of upper-inner quadrant of right breast in female, estrogen receptor positive (HCC)- Primary [facility] Diagnosis Malignant neoplasm of upper-inner quadrant of right breast in female, estrogen receptor positive (HCC)- Primary [facility] Diagnosis Malignant neoplasm of upper-inner quadrant of right breast in female, estrogen receptor positive (HCC)- Primary [facility] Diagnosis Malignant neoplasm of upper-inner quadrant of right breast in female, estrogen receptor positive (HCC)- [facility] Diagnosis Malignant neoplasm of upper-inner quadrant of right breast in female, estrogen receptor positive (HCC)- [facility] Diagnosis Malignant neoplasm of upper-inner quadrant of right breast in female, estrogen receptor positive (HCC)- [facility] Diagnosis Malignant neoplasm of upper-inner quadrant of right breast in female, estrogen receptor positive (HCC)- [facility] Diagnosis Malignant neoplasm of upper-inner quadrant of right breast in female, estrogen receptor positive (HCC)- [facility] Diagnosis Malignant neoplasm of upper-inner quadrant of right breast in female, estrogen receptor positive (HCC)- [facility] Diagnosis Malignant neoplasm of upper-inner quadrant of right breast in female, estrogen receptor positive (HCC)- [facility] Diagnosis Malignant neoplasm of upper-inner quadrant of right breast in female, estrogen receptor positive (HCC)- [facility] Diagnosis Malignant neoplasm of upper-inner quadrant of right breast in female, estrogen receptor positive (HCC)- [facility] Diagnosis Malignant neoplasm of upper-inner quadrant of right breast in female, estrogen receptor positive (HCC)- [facility] Diagnosis Malignant neoplasm of upper-inner quadrant of right breast in female, estrogen receptor positive (HCC)- [facility] Diagnosis Malignant neoplasm of upper-inner quadrant of right breast in female, estrogen receptor positive (HCC)- [facility] Malignant neoplasm of upper-inner quadrant of right breast in female, estrogen receptor positive (HCC)- Primary [facility] Outpatient Procedure (Routine) - Closed Specialty Diagnoses / Procedures Referred By Jace t Referred To [facility] Diagnoses Pre-op evaluation Essential hypertension, benign Pure hypercholesterolemia Unspecified hypothyroidism Type 2 diabetes mellitus without complication, with long-term current use of insulin (HCC) Procedures ECG COMPLETE ECG ROUTINE ECG W/LEAST 12 LDS W/I&R Suleman Monzon APRN.FITNESS AND WELLNESS DIRECTOR [id number] [place] [address] [facility] [place] [address] [place] [address] Referral ID Status Reason Start Date Expiration Date V isits Requested Visits Authorized [id number] Closed Auto-Generate d Referral 01/05/2023 01/05/2024 1 1 [facility] Summary Purpose Family History No Family History Records FoundNo Family History Records FoundNo Family History Records Found Advance Directives No Advanced Directives Records FoundNo Advanced Directives Records FoundNo Advanced Directives Records Found Reason for Referral Specialty Diagnoses / Procedures Referred By Jace pereira Referred To Contact Endocrinology Diagnoses Malignant neoplasm of upper-inner quadrant of right breast in female, estrogen receptor positive (HCC) Procedures CONSULT TO ENDOCRINOLOGY OFFICE/OUTPATIENT [facility] 60-74 MINUTES Alex Danielle PA-C [address] [address] [place] [id number] Referral ID Status Reason Start Date Expiration Date Visits Requested Visits Authorized [id number] Authorized PCP Requested Referral 12/26/2022 12/26/2023 1 1 Specialty Diagnoses / Procedures Referred By Jace t Referred To Contact [facility] Diagnoses Malignant neoplasm of upper-inner quadrant of right breast in female, estrogen receptor positive (HCC) Procedures CONSULT TO BREAST REHAB PROGRAM THERAPEUTIC EXERCISES RE, EA 15 MIN. THERAPEUT ACTVITY DIRECT PT CONTACT EACH 15 MIN Alex Danielle PA-C [address] [place] [address] [facility] [place] [address] [place] [address] Referral ID Status Reason Start Date Expiration Date Visits Requested Visits Authorized [id number] Authorized PCP Requested Referral Auto-Generate d Referral 01/17/2023 01/17/[phone] Specialty Diagnoses / Procedures Referred By Contac t Referred To Contact Diagnoses Malignant neoplasm of upper-inner quadrant of right breast in female, estrogen receptor positive (HCC) Procedures CT SIM PLANNING RADIATION ONCOLOGY THER RAD SIMULAJ-AIDED FIELD SETTING COMPLEX Joy Barry MD, [address] [place] [address] Referral ID Status Reason Start Date Expiration Date Visits Requested Visits Authorized [id number] Pending Review PCP Requested Referral 3 05/22/2023 1 1 Medications Administered Section Inactive Administered Medications - up to 3 most recent administrations Medication Order MAR Action Action Date Dose Rate Site zoledronic bl-uhfnrbcl-9.9NaCl 4 mg iv piggyback 100 mL (ZOMETA) 4 mg, INTRAVENOUS, Administer over 15 Minutes, ONCE, 1 dose, On Sun04/03/23 at 1030, Hazardous Potential Reproductive Risk Drug: Use appropriate PPE. New Bag/Syringe/Bottle 04/03/2023 10:23 AM EST 4 mg Additional Source Comments INFORMATION SOURCE (unrecogn ized section and content) DATE CREATED AUTHOR AUTHOR'S ORGANIZ ATION 02/25/2023 [facility] DATE CREATED AUTHOR AUTHOR'S ORGANIZ ATION 05/12/2023 [facility] Source Comments (unrecognize d section and content) In the event this informatio n is protected by the Federal Confidentiality of Alcohol and Drug Abuse Patient Records regulations: The Federal rules restrict any use of the information to criminally investigate or prosecute any alcohol or drug abuse patient.[facility] event this information is protected by the Federal Confidentiality of Alcohol and Drug Abuse Patient Records regulations: The Federal rules restrict any use of the information to criminally investigate or prosecute any alcohol or drug abuse patient.[facility] the event this information is protected by the Federal Confidentiality of Alcohol and Drug Abuse Patient Records regulations: The Federal rules restrict any use of the information to criminally investigate or prosecute any alcohol or drug abuse patient.[facility] the event this information is protected by the Federal Confidentiality of Alcohol and Drug Abuse Patient Records regulations: The Federal rules restrict any use of the information to criminally investigate or prosecute any alcohol or drug abuse patient.[facility] the event this information is protected by the Federal Confidentiality of Alcohol and Drug Abuse Patient Records regulations: The Federal rules restrict any use of the information to criminally investigate or prosecute any alcohol or drug abuse patient.[facility] the event this information is protected by the Federal Confidentiality of Alcohol and Drug Abuse Patient Records regulations: The Federal rules restrict any use of the information to criminally investigate or prosecute any alcohol or drug abuse patient.[facility] the event this information is protected by the Federal Confidentiality of Alcohol and Drug Abuse Patient Records regulations: The Federal rules restrict any use of the information to criminally investigate or prosecute any alcohol or drug abuse patient.[facility]In the event this information is protected by the Federal Confidentiality of Alcohol and Drug Abuse Patient Records regulations: The Federal rules restrict any use of the information to criminally investigate or prosecute any alcohol or drug abuse patient.[facility]In the event this information is protected by the Federal Confidentiality of Alcohol and Drug Abuse Patient Records regulations: The Federal rules restrict any use of the information to criminally investigate or prosecute any alcohol or drug abuse patient.[facility]In the event this information is protected by the Federal Confidentiality of Alcohol and Drug Abuse Patient Records regulations: The Federal rules restrict any use of the information to criminally investigate or prosecute any alcohol or drug abuse patient.[facility]In the event this information is protected by the Federal Confidentiality of Alcohol and Drug Abuse Patient Records regulations: The Federal rules restrict any use of the information to criminally investigate or prosecute any alcohol or drug abuse patient.[facility] HospitalIn the event this information is protected by the Federal Confidentiality of Alcohol and Drug Abuse Patient Records regulations: The Federal rules restrict any use of the information to criminally investigate or prosecute any alcohol or drug abuse patient.[facility] HospitalIn the event this information is protected by the Federal Confidentiality of Alcohol and Drug Abuse Patient Records regulations: The Federal rules restrict any use of the information to criminally investigate or prosecute any alcohol or drug abuse patient.[facility]In the event this information is protected by the Federal Confidentiality of Alcohol and Drug Abuse Patient Records regulations: The Federal rules restrict any use of the information to criminally investigate or prosecute any alcohol or drug abuse patient.[facility] HospitalIn the event this information is protected by the Federal Confidentiality of Alcohol and Drug Abuse Patient Records regulations: The Federal rules restrict any use of the information to criminally investigate or prosecute any alcohol or drug abuse patient.[facility] HospitalIn the event this information is protected by the Federal Confidentiality of Alcohol and Drug Abuse Patient Records regulations: The Federal rules restrict any use of the information to criminally investigate or prosecute any alcohol or drug abuse patient.[facility]In the event this information is protected by the Federal Confidentiality of Alcohol and Drug Abuse Patient Records regulations: The Federal rules restrict any use of the information to criminally investigate or prosecute any alcohol or drug abuse patient.[facility] HospitalIn the event this information is protected by the Federal Confidentiality of Alcohol and Drug Abuse Patient Records regulations: The Federal rules restrict any use of the information to criminally investigate or prosecute any alcohol or drug abuse patient.[facility] HospitalIn the event this information is protected by the Federal Confidentiality of Alcohol and Drug Abuse Patient Records regulations: The Federal rules restrict any use of the information to criminally investigate or prosecute any alcohol or drug abuse patient.[facility] HospitalIn the event this information is protected by the Federal Confidentiality of Alcohol and Drug Abuse Patient Records regulations: The Federal rules restrict any use of the information to criminally investigate or prosecute any alcohol or drug abuse patient.[facility] HospitalIn the event this information is protected by the Federal Confidentiality of Alcohol and Drug Abuse Patient Records regulations: The Federal rules restrict any use of the information to criminally investigate or prosecute any alcohol or drug abuse patient.[facility] HospitalIn the event this information is protected by the Federal Confidentiality of Alcohol and Drug Abuse Patient Records regulations: The Federal rules restrict any use of the information to criminally investigate or prosecute any alcohol or drug abuse patient.[facility] HospitalIn the event this information is protected by the Federal Confidentiality of Alcohol and Drug Abuse Patient Records regulations: The Federal rules restrict any use of the information to criminally investigate or prosecute any alcohol or drug abuse patient.[facility] HospitalIn the event this information is protected by the Federal Confidentiality of Alcohol and Drug Abuse Patient Records regulations: The Federal rules restrict any use of the information to criminally investigate or prosecute any alcohol or drug abuse patient.[facility] HospitalIn the event this information is protected by the Federal Confidentiality of Alcohol and Drug Abuse Patient Records regulations: The Federal rules restrict any use of the information to criminally investigate or prosecute any alcohol or drug abuse patient.[facility] HospitalIn the event this information is protected by the Federal Confidentiality of Alcohol and Drug Abuse Patient Records regulations: The Federal rules restrict any use of the information to criminally investigate or prosecute any alcohol or drug abuse patient.[facility] HospitalIn the event this information is protected by the Federal Confidentiality of Alcohol and Drug Abuse Patient Records regulations: The Federal rules restrict any use of the information to criminally investigate or prosecute any alcohol or drug abuse patient.[facility] HospitalIn the event this information is protected by the Federal Confidentiality of Alcohol and Drug Abuse Patient Records regulations: The Federal rules restrict any use of the information to criminally investigate or prosecute any alcohol or drug abuse patient.[facility] HospitalIn the event this information is protected by the Federal Confidentiality of Alcohol and Drug Abuse Patient Records regulations: The Federal rules restrict any use of the information to criminally investigate or prosecute any alcohol or drug abuse patient.[facility] HospitalIn the event this information is protected by the Federal Confidentiality of Alcohol and Drug Abuse Patient Records regulations: The Federal rules restrict any use of the information to criminally investigate or prosecute any alcohol or drug abuse patient.[facility] HospitalIn the event this information is protected by the Federal Confidentiality of Alcohol and Drug Abuse Patient Records regulations: The Federal rules restrict any use of the information to criminally investigate or prosecute any alcohol or drug abuse patient.[facility] HospitalIn the event this information is protected by the Federal Confidentiality of Alcohol and Drug Abuse Patient Records regulations: The Federal rules restrict any use of the information to criminally investigate or prosecute any alcohol or drug abuse patient.[facility] HospitalIn the event this information is protected by the Federal Confidentiality of Alcohol and Drug Abuse Patient Records regulations: The Federal rules restrict any use of the information to criminally investigate or prosecute any alcohol or drug abuse patient.[facility] HospitalIn the event this information is protected by the Federal Confidentiality of Alcohol and Drug Abuse Patient Records regulations: The Federal rules restrict any use of the information to criminally investigate or prosecute any alcohol or drug abuse patient.[facility] HospitalIn the event this information is protected by the Federal Confidentiality of Alcohol and Drug Abuse Patient Records regulations: The Federal rules restrict any use of the information to criminally investigate or prosecute any alcohol or drug abuse patient.[facility] HospitalIn the event this information is protected by the Federal Confidentiality of Alcohol and Drug Abuse Patient Records regulations: The Federal rules restrict any use of the information to criminally investigate or prosecute any alcohol or drug abuse patient.[facility] HospitalIn the event this information is protected by the Federal Confidentiality of Alcohol and Drug Abuse Patient Records regulations: The Federal rules restrict any use of the information to criminally investigate or prosecute any alcohol or drug abuse patient.[facility] HospitalIn the event this information is protected by the Federal Confidentiality of Alcohol and Drug Abuse Patient Records regulations: The Federal rules restrict any use of the information to criminally investigate or prosecute any alcohol or drug abuse patient.[facility] HospitalIn the event this information is protected by the Federal Confidentiality of Alcohol and Drug Abuse Patient Records regulations: The Federal rules restrict any use of the information to criminally investigate or prosecute any alcohol or drug abuse patient.[facility] HospitalIn the event this information is protected by the Federal Confidentiality of Alcohol and Drug Abuse Patient Records regulations: The Federal rules restrict any use of the information to criminally investigate or prosecute any alcohol or drug abuse patient.[facility] HospitalIn the event this information is protected by the Federal Confidentiality of Alcohol and Drug Abuse Patient Records regulations: The Federal rules restrict any use of the information to criminally investigate or prosecute any alcohol or drug abuse patient.[facility] HospitalIn the event this information is protected by the Federal Confidentiality of Alcohol and Drug Abuse Patient Records regulations: The Federal rules restrict any use of the information to criminally investigate or prosecute any alcohol or drug abuse patient.[facility] HospitalIn the event this information is protected by the Federal Confidentiality of Alcohol and Drug Abuse Patient Records regulations: The Federal rules restrict any use of the information to criminally investigate or prosecute any alcohol or drug abuse patient.[facility] HospitalIn the event this information is protected by the Federal Confidentiality of Alcohol and Drug Abuse Patient Records regulations: The Federal rules restrict any use of the information to criminally investigate or prosecute any alcohol or drug abuse patient.[facility] HospitalIn the event this information is protected by the Federal Confidentiality of Alcohol and Drug Abuse Patient Records regulations: The Federal rules restrict any use of the information to criminally investigate or prosecute any alcohol or drug abuse patient.[facility] Reason for Visit (unrecogniz ed section and content) 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 Reason Comments Appointment Reason Comments New Patient Right breast cancer Reason Comments Anesthesia Consult Reason Comments Patient Education RIGHT simple mastect jin, RIGHT sentinel lymph node mapping and biopsy Reason Comments Education Of Patient/family Reason Comments Radiology NM Reason Comments Post Op Call Reason Comments Post Op Reason Comments Opened In Error Reason Comments Established Patient Drain removal Reason Comments New Patient Reason Comments Consult Reason Onset Date Comments Simulation Request Form 02/21/2023 Reason Comments Patient Education Reason Comments Nutrition Assessment Reason Comments Radiotherapy On-treatment Visit Reason Comments Non-Chemotherapy Treatment Specialty Diagnoses / Procedures Referred By Contac t Referred To Contact Diagnoses Malignant neoplasm of upper-inner quadrant of right breast in female, estrogen receptor positive (HCC) Bobby Chowdhury, DO [address] [place] [address] [facility] [address] [place] [address] Referral ID Status Reason Start Date Expiration Date V isits Requested Visits Authorized [id number] Authorized 02/12/2023 05/13/2023 99 99 Reason Comments Established Patient Reason Comments Research [id number] Consent Reason Comments Recheck Care Teams (unrecognized sec tion and content) Tassel Maker Relationship Specialty Start Date End Date Benny Bosch MD [address] [place] [address] PCP - General Family Medicine 12/27/22 Tassel Maker Relationship Specialty Start Date End Date Benny Bosch MD [address] [place] [address] PCP - General Family Medicine 12/27/22 Tassel Maker Relationship Specialty Start Date End Date Benny Bosch MD [address] [place] [address] PCP - General Family Medicine 12/27/22 Tassel Maker Relationship Specialty Start Date End Date Benny Bosch MD [address] [place] [address] PCP - General Family Medicine 12/27/22 Tassel Maker Relationship Specialty Start Date End Date Benny Bosch MD [address] [place] [address] PCP - General Family Medicine 12/27/22 Tassel Maker Relationship Specialty Start Date End Date Benny Bosch MD [address] [place] [address] PCP - General Family Medicine 12/27/22 Tassel Maker Relationship Specialty Start Date End Date Benny Bosch MD [address] [place] [address] PCP - General Family Medicine 12/27/22 Tassel Maker Relationship Specialty Start Date End Date Benny Bosch MD [address] [place] [address] PCP - General Family Medicine 12/27/22 Tassel Maker Relationship Specialty Start Date End Date Benny Bosch MD [address] [place] [address] PCP - General Family Medicine 12/27/22 Joy Barry MD, [address] [place] [address] Physician Radiation Oncology 01/11/23 Tassel Maker Relationship Specialty Start Date End Date Benny Bosch MD [address] [place] [address] PCP - General Family Medicine 12/27/22 Joy Barry MD, [address] [place] [address] Physician Radiation Oncology 01/11/23 Tassel Maker Relationship Specialty Start Date End Date Benny Bosch MD [address] [place] [address] PCP - General Family Medicine 12/27/22 Joy Barry MD, [address] [place] [address] Physician Radiation Oncology 01/11/23 Tassel Maker Relationship Specialty Start Date End Date Benny Bosch MD [address] [place] [address] PCP - General Family Medicine 12/27/22 Joy Barry MD, [address] [place] [address] Physician Radiation Oncology 01/11/23 Tassel Maker Relationship Specialty Start Date End Date Benny Bosch MD [address] [place] [address] PCP - General Family Medicine 12/27/22 Joy Barry MD, [address] [place] [address] Physician Radiation Oncology 01/11/23 Tassel Maker Relationship Specialty Start Date End Date Benny Bosch MD [address] [place] [address] PCP - General Family Medicine 12/27/22 Joy Barry MD, [address] [place] [address] Physician Radiation Oncology 01/11/23 Tassel Maker Relationship Specialty Start Date End Date Benny Bosch MD [address] [place] [address] PCP - General Family Medicine 12/27/22 Joy Barry MD, [address] [place] [address] Physician Radiation Oncology 01/11/23 Tassel Maker Relationship Specialty Start Date End Date Benny Bosch MD [address] [place] [address] PCP - General Family Medicine 12/27/22 Joy Barry MD, MD [address] [place] [address] Physician Radiation Oncology 01/11/23 Tassel Maker Relationship Specialty Start Date End Date Benny Bosch MD [address] [facility] [address] [place] [address] PCP - General Family Medicine 12/27/22 Joy Barry MD, [address] [place] [address] Physician Radiation Oncology 01/11/23 Tassel Maker Relationship Specialty Start Date End Date Benny Bosch MD [address] [facility] [address] [place] [address] PCP - General Family Medicine 12/27/22 Joy Barry MD, [address] [place] [address] Physician Radiation Oncology 01/11/23 Tassel Maker Relationship Specialty Start Date End Date Benny Bosch MD [address] [place] [address] PCP - General Family Medicine 12/27/22 Joy Barry MD, [address] [place] [address] Physician Radiation Oncology 01/11/23 Tassel Maker Relationship Specialty Start Date End Date Benny Bosch MD [address] [place] [address] PCP - General Family Medicine 12/27/22 Joy Barry MD, [address] [place] [address] Physician Radiation Oncology 01/11/23 Tassel Maker Relationship Specialty Start Date End Date Benny Bosch MD [address] [place] [address] PCP - General Family Medicine 12/27/22 Joy Barry MD, [address] [place] [address] Physician Radiation Oncology 01/11/23 Tassel Maker Relationship Specialty Start Date End Date Benny Bosch MD [address] [place] [address] PCP - General Family Medicine 12/27/22 Joy Barry MD, [address] [place] [address] Physician Radiation Oncology 01/11/23 Tassel Maker Relationship Specialty Start Date End Date Benny Bosch MD [address] [place] [address] PCP - General Family Medicine 12/27/22 Joy Barry MD, [address] [place] [address] Physician Radiation Oncology 01/11/23 Tassel Maker Relationship Specialty Start Date End Date Benny Bosch MD [address] [place] [address] PCP - General Family Medicine 12/27/22 Joy Barry MD, [address] [place] [address] Physician Radiation Oncology 01/11/23 Tassel Maker Relationship Specialty Start Date End Date Benny Bosch MD [address] [place] [address] PCP - General Family Medicine 12/27/22 Joy Barry MD, [address] [place] [address] Physician Radiation Oncology 01/11/23 Tassel Maker Relationship Specialty Start Date End Date Benny Bosch MD [address] [place], [place] [address] PCP - General Family Medicine 12/27/22 Joy Barry MD, [address] [place] [address] Physician Radiation Oncology 01/11/23 Tassel Maker Relationship Specialty Start Date End Date Benny Bosch MD [address] [place], [place] [address] PCP - General Family Medicine 12/27/22 Joy Barry MD, [address] [place] [address] Physician Radiation Oncology 01/11/23 Tassel Maker Relationship Specialty Start Date End Date Benny Bosch MD [address] [facility] [address] [place], [place] [address] PCP - General Family Medicine 12/27/22 Joy Barry MD, [address] [place], [place] [address] Physician Radiation Oncology 01/11/23 Tassel Maker Relationship Specialty Start Date End Date Benny Bosch MD [address] [facility] [address] [place], [place] [address] PCP - General Family Medicine 12/27/22 Joy Barry MD, [address] [place], [place] [address] Physician Radiation Oncology 01/11/23 FOR RECORDS PERTAINING TO PATIENTS WHO ARE OR HAVE BEEN ENROLLED IN A CHEMICAL DEPENDENCY/SUBSTANCEABUSE PROGRAM, SOME INFORMATION MAY BE OMITTED. This clinical summary was aggregated from multiple sources. Caution should be exercised in using it in the provision of clinical care. This summary normalizes information from multiple sources, and as a consequence, information in this document may materially change the coding, format and clinical context of patient data. In addition, data may be omitted in some cases. CLINICAL DECISIONS SHOULD BE BASED ON THE PRIMARY CLINICAL RECORDS. [employer] [facility]. provides no warranty or guarantee of the accuracy or completeness of information in this document.
[2023-05-15 10:49] LABS: Microalbumin,Random Urine 55.1 mg/L (NO RANGE EST.); Microalbumin:Creatinine Ratio 49.2 mg/g CRE (<30 mg/g CRE)
[2023-05-15 11:13] LABS: ALB/GLOB Ratio 0.8 RATIO (0.9-2.4); AST(SGOT) 44 U/L (15-37); Alanine Aminotransfer ALT/SGPT 20 U/L (13-56); Albumin, Serum 3.4 g/dL (3.2-5.0); Alkaline Phosphatase 93 U/L (45-117); Anion Gap 10 (5-15); BUN 15 mg/dL (7-18); BUN/Creat Ratio 18.8 RATIO (10-20); Calcium,Total 9.4 mg/dL (8.5-10.1); Chloride 105 mmol/L (98-107); Cholesterol 105 mg/dL (200); EST Glomerular Filtration Rate 74 mL/min (>60); Est Glom Filt Rate - Afr Amer 90 mL/min (>60); Globulin 4.1 g/dL (2.2-4.2); Glucose 217 mg/dL (74-106); High Density Lipoprotein 38 mg/dL; Potassium 3.7 mmol/L (3.5-5.1); Protein, Total 7.5 g/dL (6.4-8.2); Sodium Level 139 mmol/L (136-145); T4 Free Direct 1.25 ng/dL (0.76-1.46); Thyroid Stim Hormone (TSH) 4.57 uIU/mL (0.358-3.74); Triglycerides 304 mg/dL; Very Low Density Lipoprotein 61 mg/dL (5-40)
[2023-05-15 11:37] LABS: Hemoglobin A1c 7.4 % (3.8-5.6)
== END | disposition home or self-care (01) ==
LOC: MTLAB 08:14
PROVIDERS: PCP Family Medicine; Referring Provider Internal Medicine Endocrinology, Diabetes & Metabolism; Visit Provider Internal Medicine Endocrinology, Diabetes & Metabolism
DX: E11.9 Type 2 diabetes mellitus without complications (principal); E78.5 Hyperlipidemia, unspecified; E03.9 Hypothyroidism, unspecified; E83.52 Hypercalcemia; I10 Essential (primary) hypertension
CPT/HCPCS: 36415; 80053; 80061; 82043; 82570; 83036; 84439; 84443

== ENCOUNTER → 2023-05-21 | Outpatient (CLI) | payer MEDICARE, BC, SELFPAY ==
[2023-05-21 10:26] LABS: Bacteria 0 SEEN /hpf (None Seen); Mucous, Urine 0 SEEN /hpf (<or=2+); Red Blood Cells-Urine 0 SEEN /hpf (0-5); Squamous Epithelial Cells - UA 0 SEEN /hpf (5-10); White Blood Cells 0 SEEN /hpf (0-5)
[2023-05-21 10:31] LABS: Color, Urine Yellow (Yellow); Glucose, Dipstick Normal (Normal); Ketone-Dipstick Negative (Negative); Leukocyte Esterase-Dipstick Negative /ul (Negative); Nitrite-Dipstick Negative (Negative); Occult Blood-Urine Negative /ul (Negative); Protein-Dipstick Negative (Negative); Specific Gravity, Urine 1.015 (1.002-1.030); Urine Bilirubin Dipstick Negative (Negative); Urine Clarity Clear (Clear); Urine Urobilinogen Normal (Normal)
== END | disposition home or self-care (01) ==
LOC: LABSPEC 10:20
PROVIDERS: PCP Family Medicine; Referring Provider Nurse Practitioner Family; Visit Provider Nurse Practitioner Family
DX: R35.0 Frequency of micturition (principal)
CPT/HCPCS: 81001; 87086

== ENCOUNTER → 2023-06-28 | Outpatient (CLI) | payer MEDICARE, BC, SELFPAY ==
[2023-06-28 15:34] LABS: Mucous, Urine 0 SEEN /hpf (<or=2+); Red Blood Cells-Urine 0 SEEN /hpf (0-5)
[2023-06-28 15:43] LABS: Color, Urine Yellow (Yellow); Glucose, Dipstick Normal (Normal); Ketone-Dipstick Negative (Negative); Leukocyte Esterase-Dipstick 500 /ul (Negative); Nitrite-Dipstick Positive (Negative); Occult Blood-Urine 25 /ul (Negative); Protein-Dipstick 30 mg/dl (Negative); Urine Bilirubin Dipstick Negative (Negative); Urine Clarity Sl. Cloudy (Clear); Urine Urobilinogen Normal (Normal)
[2023-06-28 15:55] LABS: Bacteria 1+ /hpf (None Seen); Squamous Epithelial Cells - UA 0-5 SEEN /hpf (5-10); White Blood Cells >100 SEEN /hpf (0-5)
== END | disposition home or self-care (01) ==
LOC: LABSPEC 14:31
PROVIDERS: PCP Psychiatry & Neurology Neurology; Referring Provider Physician Assistant Surgical; Visit Provider Physician Assistant Surgical
DX: R30.0 Dysuria (principal)
CPT/HCPCS: 81001; 87077; 87086; 87088; 87186

== ENCOUNTER → 2023-08-01 | Outpatient (CLI) | payer MEDICARE, BC, SELFPAY ==
[2023-08-01 11:01] LABS: Mucous, Urine 0 SEEN /hpf (<or=2+)
[2023-08-01 12:28] LABS: Absolute Lymphocyte Count 1.84 X10^3/uL (0.83-4.51); Absolute Neutrophil Count 6.4 X10^3/uL (2.0-7.7); Basophil# 0.12 X10^3/uL; Basophil% 1.3 % (0-1); Eosinophil# 0.44 X10^3/uL; Eosinophils% 4.6 % (0-5); Hematocrit 32.9 % (37-47); Hemoglobin 10.3 g/dL (12.0-15.0); Lymphocyte # 1.84 X10^3/ul (0.83-4.51); Lymphocyte % 19.3 % (19-41); Mean Corp Hgb Conc 31.3 g/dL (32-36); Mean Corpuscular Hgb 27.7 pg (27.0-32.0); Mean Corpuscular Volume 88.4 fL (81-99); Mean Platelet Vol. 10.3 fl (6.2-12.0); Monocyte# 0.68 X10^3/uL; Monocyte% 7.1 % (0-10); NRBC Flagged by Analyzer 0 % (0-5); Neutrophil # 6.41 X10^3/uL (2.7-7.7); Neutrophil % 67.1 % (47-70); Platelet Count 253 K/mm3 (150-450); RBC Distribution Width SD 44.7 fl (35.1-43.9); Red Blood Count 3.72 M/mm3 (4.2-5.4); White Blood Count 9.6 K/mm3 (4.4-11.0)
[2023-08-01 12:35] LABS: Color, Urine Yellow (Yellow); Glucose, Dipstick Normal (Normal); Ketone-Dipstick Negative (Negative); Leukocyte Esterase-Dipstick 100 /ul (Negative); Nitrite-Dipstick Negative (Negative); Occult Blood-Urine Negative /ul (Negative); Protein-Dipstick 15 mg/dl (Negative); Specific Gravity, Urine 1.015 (1.002-1.030); Urine Bilirubin Dipstick Negative (Negative); Urine Clarity Clear (Clear); Urine Urobilinogen Normal (Normal)
[2023-08-01 12:47] LABS: Bacteria 1+ /hpf (None Seen); Red Blood Cells-Urine 0-5 SEEN /hpf (0-5); Squamous Epithelial Cells - UA 0-5 SEEN /hpf (5-10); White Blood Cells 5-10 SEEN /hpf (0-5)
[2023-08-01 12:59] LABS: ALB/GLOB Ratio 0.8 RATIO (0.9-2.4); AST(SGOT) 57 U/L (15-37); Alanine Aminotransfer ALT/SGPT 26 U/L (13-56); Albumin, Serum 3.1 g/dL (3.2-5.0); Alkaline Phosphatase 73 U/L (45-117); Anion Gap 8 (5-15); BUN 14 mg/dL (7-18); BUN/Creat Ratio 20.1 RATIO (10-20); Calcium,Total 9.5 mg/dL (8.5-10.1); Chloride 105 mmol/L (98-107); Cholesterol 91 mg/dL (200); EST Glomerular Filtration Rate 87 mL/min (>60); Est Glom Filt Rate - Afr Amer 105 mL/min (>60); Globulin 4.1 g/dL (2.2-4.2); Glucose 187 mg/dL (74-106); High Density Lipoprotein 36 mg/dL; Potassium 3.9 mmol/L (3.5-5.1); Protein, Total 7.2 g/dL (6.4-8.2); Sodium Level 138 mmol/L (136-145); Thyroid Stim Hormone (TSH) 1.65 uIU/mL (0.358-3.74); Triglycerides 183 mg/dL; Very Low Density Lipoprotein 37 mg/dL (5-40)
[2023-08-01 13:00] LABS: Vitamin B12 > 2000 pg/mL (211-911); Vitamin D,25 Hydroxy 45.8 ng/mL
[2023-08-01 14:21] LABS: Microalbumin,Random Urine 61.4 mg/L (NO RANGE EST.); Microalbumin:Creatinine Ratio 70.5 mg/g CRE (<30 mg/g CRE)
[2023-08-06 10:07] LABS: VITAMIN B6 9.1 ug/L (3.4-65.2); Vitamin B1, Thiamine 196.9 nmol/L (66.5-200.0)
== END | disposition home or self-care (01) ==
PROVIDERS: PCP Family Medicine; Referring Provider Family Medicine; Visit Provider Family Medicine
DX: E11.59 Type 2 diabetes mellitus with other circulatory complications (principal); E55.9 Vitamin D deficiency, unspecified; E03.9 Hypothyroidism, unspecified
CPT/HCPCS: 36415; 80053; 80061; 81001; 82043; 82306; 82570; 82607; 83036; 83735; 84207; 84425; 84439; 84443; 85025

== ENCOUNTER → 2023-08-08 | Outpatient (CLI) | payer MEDICARE, BC, SELFPAY ==
[2023-08-08 11:12] LABS: Magnesium 1.5 mg/dL (1.6-2.6)
== END | disposition home or self-care (01) ==
PROVIDERS: PCP Family Medicine; Referring Provider Family Medicine; Visit Provider Family Medicine
DX: E83.42 Hypomagnesemia (principal)
CPT/HCPCS: 36415; 83735

== ENCOUNTER → 2023-08-23 | Outpatient (CLI) | payer MEDICARE, BC, SELFPAY ==
[2023-08-23 15:28] LABS: Hematocrit 34.4 % (37-47); Mean Corpuscular Hgb 28.6 pg (27.0-32.0); Mean Corpuscular Volume 89.4 fL (81-99); Mean Platelet Vol. 10.6 fl (6.2-12.0); Platelet Count 299 K/mm3 (150-450); RBC Distribution Width CV 14.6 % (11.6-14.6); RBC Distribution Width SD 46.5 fl (35.1-43.9); Red Blood Count 3.85 M/mm3 (4.2-5.4); White Blood Count 9.7 K/mm3 (4.4-11.0)
[2023-08-23 17:11] LABS: Ferritin 13 ng/mL (8-252); Free T3 2.1 pg/mL (2.18-3.98); Iron 66 ug/dL (50-170); Iron Binding Capacity,Total 433 ug/dL (250-450)
== END | disposition home or self-care (01) ==
PROVIDERS: PCP Family Medicine; Referring Provider Internal Medicine Endocrinology, Diabetes & Metabolism; Visit Provider Internal Medicine Endocrinology, Diabetes & Metabolism
DX: E11.9 Type 2 diabetes mellitus without complications (principal); E78.5 Hyperlipidemia, unspecified; E03.9 Hypothyroidism, unspecified; E83.52 Hypercalcemia; I10 Essential (primary) hypertension
CPT/HCPCS: 36415; 82728; 82746; 83540; 83550; 84481; 85027

== ENCOUNTER → 2023-11-07 | Outpatient (CLI) | payer MEDICARE, BC, SELFPAY ==
[2023-11-07 12:26] LABS: Absolute Neutrophil Count 7.1 X10^3/uL (2.0-7.7); Basophil# 0.11 X10^3/uL; Basophil% 1.1 % (0-1); Eosinophil# 0.43 X10^3/uL; Eosinophils% 4.2 % (0-5); Hematocrit 36.9 % (37-47); Hemoglobin 11.8 g/dL (12.0-15.0); Lymphocyte % 18.5 % (19-41); Mean Corpuscular Hgb 29.6 pg (27.0-32.0); Mean Corpuscular Volume 92.7 fL (81-99); Mean Platelet Vol. 10.9 fl (6.2-12.0); Monocyte# 0.75 X10^3/uL; Monocyte% 7.3 % (0-10); NRBC Flagged by Analyzer 0 % (0-5); Neutrophil # 7.05 X10^3/uL (2.7-7.7); Neutrophil % 68.5 % (47-70); Platelet Count 243 K/mm3 (150-450); RBC Distribution Width CV 13.8 % (11.6-14.6); Red Blood Count 3.98 M/mm3 (4.2-5.4); White Blood Count 10.3 K/mm3 (4.4-11.0)
[2023-11-07 15:54] LABS: Vitamin B12 329 pg/mL (211-911); Vitamin D,25 Hydroxy 48.5 ng/mL
[2023-11-07 16:13] LABS: ALB/GLOB Ratio 0.9 RATIO (0.9-2.4); AST(SGOT) 41 U/L (15-37); Alanine Aminotransfer ALT/SGPT 17 U/L (13-56); Albumin, Serum 3.6 g/dL (3.2-5.0); Alkaline Phosphatase 117 U/L (45-117); Anion Gap 9 (5-15); BUN 24 mg/dL (7-18); BUN/Creat Ratio 28.6 RATIO (10-20); Calcium,Total 9.8 mg/dL (8.5-10.1); Chloride 106 mmol/L (98-107); Cholesterol 114 mg/dL (200); Creatinine, Serum 0.84 mg/dL (0.55-1.02); EST Glomerular Filtration Rate 70 mL/min (>60); Est Glom Filt Rate - Afr Amer 85 mL/min (>60); Globulin 4.2 g/dL (2.2-4.2); Glucose 188 mg/dL (74-106); High Density Lipoprotein 39 mg/dL; Magnesium 1.2 mg/dL (1.6-2.6); Potassium 4.4 mmol/L (3.5-5.1); Protein, Total 7.8 g/dL (6.4-8.2); Sodium Level 136 mmol/L (136-145); Triglycerides 260 mg/dL; Very Low Density Lipoprotein 52 mg/dL (5-40)
== END | disposition home or self-care (01) ==
LOC: MTLAB 10:48
PROVIDERS: PCP Family Medicine; Referring Provider Family Medicine; Visit Provider Family Medicine
DX: E11.59 Type 2 diabetes mellitus with other circulatory complications (principal); E55.9 Vitamin D deficiency, unspecified
CPT/HCPCS: 36415; 80053; 80061; 82306; 82607; 83735; 84425; 85025

== ENCOUNTER → 2023-11-20 | Outpatient (CLI) | payer MEDICARE, BC, SELFPAY ==
[2023-11-20 16:07] LABS: Magnesium 1.7 mg/dL (1.6-2.6)
== END | disposition home or self-care (01) ==
LOC: MTLAB 12:40
PROVIDERS: PCP Family Medicine; Referring Provider Family Medicine; Visit Provider Family Medicine
DX: E83.42 Hypomagnesemia (principal)
CPT/HCPCS: 36415; 83735

== ENCOUNTER → 2024-01-04 | Outpatient (CLI) | payer MEDICARE, BC, SELFPAY ==
[2024-01-04 10:33] LABS: Hematocrit 35.3 % (37-47); Hemoglobin 11.3 g/dL (12.0-15.0); Mean Corpuscular Volume 93.6 fL (81-99); Mean Platelet Vol. 10.3 fl (6.2-12.0); Platelet Count 273 K/mm3 (150-450); RBC Distribution Width CV 13.9 % (11.6-14.6); RBC Distribution Width SD 46.6 fl (35.1-43.9); Red Blood Count 3.77 M/mm3 (4.2-5.4); White Blood Count 8.8 K/mm3 (4.4-11.0)
[2024-01-04 10:51] LABS: Microalbumin,Random Urine 49.5 mg/L (NO RANGE EST.); Microalbumin:Creatinine Ratio 50.6 mg/g CRE (<30 mg/g CRE)
[2024-01-04 10:58] LABS: Hemoglobin A1c 7.7 % (3.8-5.6)
[2024-01-04 11:34] LABS: ALB/GLOB Ratio 0.8 RATIO (0.9-2.4); AST(SGOT) 52 U/L (15-37); Alanine Aminotransfer ALT/SGPT 24 U/L (13-56); Albumin, Serum 3.4 g/dL (3.2-5.0); Alkaline Phosphatase 126 U/L (45-117); Anion Gap 12 (5-15); BUN 27 mg/dL (7-18); BUN/Creat Ratio 24.8 RATIO (10-20); Calcium,Total 9.3 mg/dL (8.5-10.1); Chloride 103 mmol/L (98-107); Cholesterol 107 mg/dL (200); Creatinine, Serum 1.09 mg/dL (0.55-1.02); EST Glomerular Filtration Rate 52 mL/min (>60); Est Glom Filt Rate - Afr Amer 62 mL/min (>60); Free T3 1.5 pg/mL (2.18-3.98); Globulin 4.2 g/dL (2.2-4.2); Glucose 323 mg/dL (74-106); High Density Lipoprotein 36 mg/dL; Potassium 4.5 mmol/L (3.5-5.1); Protein, Total 7.6 g/dL (6.4-8.2); Sodium Level 134 mmol/L (136-145); Triglycerides 410 mg/dL
== END | disposition home or self-care (01) ==
LOC: MTLAB 09:12
PROVIDERS: PCP Family Medicine; Referring Provider Internal Medicine Endocrinology, Diabetes & Metabolism; Visit Provider Internal Medicine Endocrinology, Diabetes & Metabolism
DX: E11.9 Type 2 diabetes mellitus without complications (principal); E61.1 Iron deficiency; E78.5 Hyperlipidemia, unspecified; E03.9 Hypothyroidism, unspecified; I10 Essential (primary) hypertension
CPT/HCPCS: 36415; 80053; 80061; 82043; 82570; 83036; 84443; 84481; 85027

== ENCOUNTER → 2024-02-21 | Outpatient (CLI) | payer MEDICARE, BC, SELFPAY ==
[2024-02-21 12:29] LABS: Protein, Urine (Random) 36.9 mg/dL (<11.9); Protein:Creat Ratio 298 mg/g CRE (0-200)
[2024-02-21 13:20] LABS: Free T3 1.8 pg/mL (2.18-3.98); T4 Free Direct 1.24 ng/dL (0.76-1.46)
== END | disposition home or self-care (01) ==
PROVIDERS: PCP Family Medicine; Referring Provider Internal Medicine Endocrinology, Diabetes & Metabolism; Visit Provider Internal Medicine Endocrinology, Diabetes & Metabolism
DX: E11.9 Type 2 diabetes mellitus without complications (principal); E61.1 Iron deficiency; E78.5 Hyperlipidemia, unspecified; E03.9 Hypothyroidism, unspecified; I10 Essential (primary) hypertension
CPT/HCPCS: 36415; 82570; 84156; 84439; 84443; 84481

== ENCOUNTER → 2024-03-27 | Outpatient (CLI) | payer MEDICARE, BC, SELFPAY ==
--- NOTE | 2024-03-27 16:32 | CT_ITS ---
STUDY: CT ABDOMEN AND PELVIS WITH CONTRAST REASON FOR EXAM: Female, 78 years old. abdominal pain RADIATION DOSAGE (If Supplied By Facility): CTDIvol = ( 17.08 ) mGy, DLP = ( 1153.99 ) mGycm TECHNIQUE: Transaxial images were obtained from the dome of the diaphragm to the symphysis pubis without oral contrast. IV 100mL Isovue-300 was administered. Sagittal and coronal images were reconstructed. Individualized dose optimization techniques were used for this CT. COMPARISON: August 17, 2022 FINDINGS: There are tiny calcified granulomata in the right lower lobe as well as calcified mediastinal nodes. Heart size is normal. There is mild coronary artery calcification. Normal liver. Tiny poorly calcified gallstone without evidence for acute inflammation. Multiple tiny calcified granulomata within normal size spleen. Normal pancreas. Normal bilateral adrenal glands. Normal right kidney. Normal left kidney. Normal visualized stomach. Normal small intestine. Diverticular changes of the distal descending and sigmoid colon without evidence for acute diverticulitis. The appendix is visualized and appears normal. Atherosclerotic change of the aorta without evidence for aneurysm. Normal inferior vena cava. Normal retroperitoneum. Normal urinary bladder. Small fat-containing umbilical hernia and left inguinal hernia.. Lumbar spine demonstrates degenerative change CT/Abdomen/Pelvis W IV Cont ONLY IMPRESSION: Cholelithiasis without definitive evidence for acute cholecystitis.. Ultrasound or HIDA scan would be helpful for further evaluation if indicated. Diverticulosis of the colon without evidence for acute diverticulitis No evidence for small bowel obstruction or other acute abnormality Electronically Signed: Avery Collins MD at 18:00 EST Reading Location ID and State: [facility] / [place] Tel , Service support ,
[2024-03-27 17:03] LABS: CREATININE FINGERSTICK 1.2 mg/dL (0.55-1.02)
== END | disposition home or self-care (01) ==
LOC: CT 16:31
PROVIDERS: PCP Family Medicine; Referring Provider Family Medicine; Visit Provider Family Medicine
DX: R10.9 Unspecified abdominal pain (principal)
CPT/HCPCS: 74177; Q9967; A4216

== ENCOUNTER 2024-03-30 13:33 | Emergency (ER) | payer MEDICARE, BC, SELFPAY ==
[2024-03-30 13:34] VITALS: BP 185/94; PULSE 74; RESP 16; TEMP 36.6; O2SAT 99; BMI 32.5
--- NOTE | 2024-03-30 14:10 | EKG12_ITS ---
Test Reason : ABD PAIN Blood Pressure : */* mmHG Vent. Rate : 70 BPM Atrial Rate : 70 BPM P-R Int : 288 ms QRS Dur : 130 ms QT Int : 430 ms P-R-T Axes : 18 -38 125 degrees QTcB Int : 464 ms Sinus rhythm with 1st degree A-V block Left axis deviation Left bundle branch block Abnormal ECG Confirmed by JONEL ULRICH, CAITLIN ([id number]), online content editor REBECCA SCHREIBER ([id number]) on 03/31/2024 9:53:07 AM Referred By: Confirmed By: CAITLIN REMY MD
--- NOTE | 2024-03-30 14:12 | EDS_ITS ---
HPI HPI - GI History of Present Illness Chief Complaint: Abd Pain Informant: patient and family (daughter) Narrative Narrative: Patient 78-year-old female with history of diabetes mellitus, breast cancer, gastric reflux, hypertension, hyperlipidemia, peripheral neuropathy and prior dumping syndrome presenting with 1 week generalized malaise, nausea and abdominal pain. No vomiting reported. His does not have any nausea medicine at home. Saw her PCP on Sunday, 2 days ago, and had an outpatient CT of the abdomen pelvis ordered. Did not show any acute process but did show cholelithiasis, diverticulosis and small fat-containing umbilical hernia and left inguinal hernia. Patient was started on omeprazole. She has not had improvement of her symptoms and continued to feel poorly so family brought her to the emergency room today per the recommendation of the on-call doctor. Patient had decreased appetite. Abdominal pain is diffuse but seems to be centered in the epigastric region. She does report associated chest pain and s hortness of breath. She does report particularly bad reflux with no help anywhere from Rolaids or Pepto-Bismol. She did have a small bowel movement this morning. Denies any acute change in her stools. Does have a history of chronic UTIs but currently denies any urinary symptoms. Notes that sometimes drinking chicken broth will help. Was started on Ozempic 2 weeks ago. Denies fevers but has had cold sweats. Has a history of a tubal ligation as well as EGD and colonoscopy in the past. Has seen Dr. Sanchez in the past as well but is been a couple years per the daughter [facility] Medical History History of recent fall Fatty liver Restless legs Dietary restriction History of hiatal hernia History of ulceration Abdominal pain Post-menopausal Wears hearing aid Wears glasses Insulin dependent diabetes mellitus High cholesterol Back pain Gastric reflux Former smoker History of echocardiogram History of stress test Hx of corn of toe Hx of dermabrasion Bloating Hypergammaglobulinemia CKD (chronic kidney disease) Hyperlipidemia Cataracts, bilateral Increased urinary frequency Back pain Difficulty balancing Arthritis Thyroid disease Hypertension Home Medications ?Medication ?Instructions ?Recorded ?Last Taken ?Type levothyroxine 150 mcg tablet 150 mcg PO DAILY 12/03/14 03/16/22 History blood sugar diagnostic #100 ea 01/24/19 03/15/22 History blood-glucose meter #1 ea 01/24/19 03/15/22 History metformin 500 mg tablet,extended 2,000 mg PO QHS #360 tabs 01/24/19 03/15/22 History release 24 hr insulin glargine U-300 conc 300 70 unit subcut 1730 02/14/21 03/15/22 History unit/mL (1.5 mL) subcutaneous pen 35 UNITS ([employer] SoloStar U-300 Insulin) insulin lispro 100 unit/mL 30 unit subcut DINNER 02/14/21 03/15/22 History subcutaneous half-unit pen (Humalog Alec KwikPen (U-100)) ibuprofen 400 mg tablet 400 mg PO Q6H PRN Pain 03/08/22 03/15/22 History olmesartan 20 mg tablet (Benicar) 40 mg PO DAILY 11/15/22 Unknown History cholecalciferol (vitamin D3) 50 50 mcg PO DAILY 11/27/22 Unknown History mcg (2,000 unit) capsule diphenhydramine HCl 25 mg capsule 25 mg PO QHS PRN 11/27/22 Unknown History (Benadryl) magnesium oxide 1,600 mg PO DAILY 11/27/22 Unknown History mecobalamin (vitamin B12) 1,000 2,000 mcg PO DAILY 11/27/22 Unknown History mcg chewable tablet rosuvastatin 20 mg tablet 20 mg PO DAILY 11/27/22 Unknown History vitamin B complex 1 tab PO DAILY 11/27/22 Unknown History Bilateral wrist splints #2 ea 12/21/22 Unknown Rx duloxetine 60 mg capsule,delayed 60 mg PO QHS #90 caps 10/04/23 Unknown Rx release pregabalin 200 mg capsule (Lyrica) 200 mg PO BID #180 caps 10/04/23 Unknown Rx anastrozole 1 mg tablet 1 mg PO DAILY 10/05/23 Unknown History ondansetron 4 mg disintegrating 4 mg PO Q8H PRN PRN Nausea #14 tabs 03/30/24 Unknown Rx tablet sucralfate 1 gram tablet (Carafate) 1 g PO [id number] #40 tabs 03/30/24 Unknown Rx Allergy/AdvReac Type Severity Reaction Status Date / Time gabapentin AdvReac Severe Other Verified 03/30/24 13:34 Family History Father Cancer lung/liver/pancreas Myocardial infarction Heart disease Grandfather Rectal cancer paternal Surgical History History of right breast biopsy (~11/2022) S/P ORIF (open reduction internal fixation) fracture Hx of arthroscopic knee surgery Hx of tubal ligation Social History Smoking Status: Former smoker alcohol intake: never ROS ROS ED Constitutional Constitutional ED: Reports chills and sweats; Denies fever(s) Cardiovascular Cardiovascular: Reports chest pain Respiratory/Chest Respiratory/Chest: Reports dyspnea; Denies cough Gastrointestinal Gastrointestinal: Reports abdominal pain and nausea; Denies constipation, diarrhea, melena or vomiting Genitourinary Genitourinary ED: Denies dysuria, hematuria or urinary frequency Musculoskeletal Musculoskeletal: Denies arthralgias, back pain or myalgias Integumentary Denies rash Neurologic Neurologic: Reports weakness; Denies headache(s) Hematologic/Lymphatic Hematologic/Lymphatic: Denies easy bleeding or easy bruising EXAM Physical Exam Const Vital Signs: 03/30/24 13:34 03/30/24 15:33 03/30/24 17:00 Temperature 97.9 F Temperature Source Oral Pulse Rate 74 80 Respiratory Rate 16 16 Blood Pressure 185/94 H 160/78 H 155/72 H Blood Pressure Mean 124 105 99 Pulse Ox 99 94 Oxygen Delivery Method Room Air Room Air Positive well nourished and well developed General Appearance ED: well developed and NAD; Negative for pallor HEENT Reports moist mucous membranes normocephalic and atraumatic Eyes PERRL General Eye ED: Negative for scleral icterus Neck supple Resp normal respiratory effort and clear to auscultation bilaterally Cardio regular rate and regular rhythm GI non-distended GI Narrative: Mild tenderness to palpation epigastric region. Negative El sign. Auscultation: hypoactive bowel sounds Palpation: soft and tender epigastric; Negative for guarding, rigid or mass Extremity full ROM General Extremety ED: Negative for edema General Extremity: Negative for edema Neuro Sensorium / Orientation: alert, oriented to person, oriented to place and nathan ented to time Motor Exam: general weakness Skin no wounds General Skin Exam: Negative for jaundice or pallor MDM MDM MDM Narrative Medical decision making narrative: Patient is evaluated for 1 week continued epigastric abdominal pain. She does report some pain in her chest as well. Vital signs upon arrival significant for hypertension but otherwise normal. Differential includes ACS, gastritis, esophagitis, cholecystitis, pancreatitis, peptic ulcer disease, H. pylori, symptomatic anemia, urinary tract infection and choledocholithiasis. Patient given IV morphine and Zofran and will obtain workup including CBC, BMP, liver panel, lipase, urinalysis and EKG. Patient had a CT of the abdomen pelvis performed 3 days ago which did not show any acute process. Will defer imaging at this time. Lab Data Labs: Laboratory Results - last 24 hr 03/30/24 03/30/24 13:48 15:15 WBC 9.3 RBC 4.29 Hgb 12.5 Hct 39.2 MCV 91.4 MCH 29.1 MCHC 31.9 L RDW Std Deviation 45.1 H RDW Coeff of [place]iza 13.5 Plt Count 297 MPV 9.9 Immature Gran % (Auto) 0.400 Neut % (Auto) 69.2 Lymph % (Auto) 19.5 [place] % (Auto) 7.2 Eos % (Auto) 3.1 Baso % (Auto) 0.6 Absolute Neuts (auto) 6.4 Absolute Lymphs (auto) 1.81 Nucleated RBC % 0 Sodium 138 Potassium 4.1 Chloride 109 H Carbon Dioxide 23.0 Anion Gap 5 BUN 12 Creatinine 0.99 Estim Creat Clear Calc 44.28 Est GFR (MDRD) Af Amer 70 Est GFR (MDRD) Non-Af 57 L BUN/Creatinine Ratio 12.1 Glucose 177 H Calcium 9.0 Magnesium 1.3 L Troponin I High Sens 10 Lipase 68 Urine Color Yellow Urine Clarity Clear Urine pH 8.0 Ur Specific [place] 1.010 Urine Protein 30 H Urine Glucose (UA) 50 H Urine Ketones Negative Urine Occult Blood Negative Urine Nitrite Negative Urine Bilirubin Negative Urine Urobilinogen Normal Ur Leukocyte Esterase 25 H Urine RBC 0-5 SEEN Urine WBC 0-5 SEEN Ur Squamous Epith Cells 0 SEEN Urine Bacteria 0 SEEN Urine Mucus 0 SEEN Rhythm Strip Rhythm Strip: Sinus Rhythm Rate: 70 Ectopy: None EKG Initial EKG: Attestation: I personally reviewed and interpreted this EKG as follows: Interpretation: Sinus Rhythm Comments: Normal sinus rhythm at a rate of 70 bpm First-degree AV block with UT interval 288 Left bundle branch pattern Left axis deviation Prior EKG tracings: available for review Prior: Unchanged Discharge Plan Triage Chief Complaint: Abd Pain ED Provider: Miriam Leon Dx/Rx/DC Orders Clinical Impression: Epigastric abdominal pain, Nausea Instructions: Tips to Control Acid Reflux, ED Epigastric Pain Uncertain Cause Prescriptions: New ondansetron 4 mg tablet,disintegrating 4 mg PO Q8H PRN PRN (Reason: Nausea) Qty: 14 0RF sucralfate [Carafate] 1 gram tablet 1 g PO [id number] Qty: 40 0RF No Action (DME) blood sugar diagnostic Strip See Rx Instructions .ROUTE .MEDSUPPLY Qty: 100 Patient Comments: use 1 Strip four times daily Rx Instructions: As directed metformin 500 mg tablet extended release 24 hr 2,000 mg PO QHS Qty: 360 Patient Comments: TAKE 4 TABLETS BY MOUTH ONCE DAILY AT NIGHT (DME) blood-glucose meter Misc See Rx Instructions .ROUTE .MEDSUPPLY Qty: 1 Rx Instructions: As directed [employer] SoloStar U-300 Insulin 300 unit/mL (1.5 mL) insulin pen 70 unit subcut 1730 insulin lispro [Humalog Alec KwikPen U-100] 100 unit/mL insulin pen, half- unit 30 unit subcut DINNER diphenhydramine HCl [Benadryl] 25 mg capsule 25 mg PO QHS PRN vitamin B complex Tablet 1 tab PO DAILY rosuvastatin 20 mg tablet 20 mg PO DAILY cholecalciferol (vitamin D3) 50 mcg (2,000 unit) capsule 50 mcg PO DAILY magnesium oxide 400 mg magnesium tablet 1,600 mg PO DAILY mecobalamin (vitamin B12) 1,000 mcg tablet,chewable 2,000 mcg PO DAILY duloxetine 60 mg capsule,delayed release(DR/EC) 60 mg PO QHS Qty: 90 2RF pregabalin [Lyrica] 200 mg capsule 200 mg PO BID Qty: 180 1RF anastrozole 1 mg tablet 1 mg PO DAILY levothyroxine 150 MCG tablet 150 mcg PO DAILY olmesartan [Benicar] 20 mg tablet 40 mg PO DAILY Patient Comments: 1 tablet by mouth once a day ibuprofen 400 mg Tablet 400 mg PO Q6H PRN (Reason: Pain) (DME) Bilateral wrist splints See Rx Instructions .ROUTE .MEDSUPPLY Qty: 2 0RF Rx Instructions: Right and left wrist splints to be worn at night Primary Care Provider: Abhinav Bosch Referrals: Abhinav Bosch MD [Primary Care Provider] - Friend,Prem, DO [Med Staff - Active Staff] - 3-5 Days Activity Restrictions/Additional Instructions: Double up on your omeprazole for the next 5 days (take it twice a day instead of once a day). You have also been prescribed nausea medicine and another medicine to help coat your stomach and help with pain in your abdomen. Please call GI office tomorrow let them know you you are seen in the ER and need close follow- up. If you start vomiting then especially if you have blood in your vomit, have worsening pain or fevers please return to the emergency room. As we discussed please try to adhere to a low acid diet as well. Print Language: [place] Citizen Disposition Disposition: Home, Self Care
[2024-03-30 14:17] LABS: Absolute Lymphocyte Count 1.81 X10^3/uL (0.83-4.51); Absolute Neutrophil Count 6.4 X10^3/uL (2.0-7.7); Basophil# 0.06 X10^3/uL; Basophil% 0.6 % (0-1); Eosinophil# 0.29 X10^3/uL; Eosinophils% 3.1 % (0-5); Hematocrit 39.2 % (37-47); Hemoglobin 12.5 g/dL (12.0-15.0); Lymphocyte # 1.81 X10^3/ul (0.83-4.51); Lymphocyte % 19.5 % (19-41); Mean Corp Hgb Conc 31.9 g/dL (32-36); Mean Corpuscular Hgb 29.1 pg (27.0-32.0); Mean Corpuscular Volume 91.4 fL (81-99); Mean Platelet Vol. 9.9 fl (6.2-12.0); Monocyte# 0.67 X10^3/uL; Monocyte% 7.2 % (0-10); NRBC Flagged by Analyzer 0 % (0-5); Neutrophil # 6.39 X10^3/uL (2.7-7.7); Neutrophil % 69.2 % (47-70); Platelet Count 297 K/mm3 (150-450); RBC Distribution Width CV 13.5 % (11.6-14.6); RBC Distribution Width SD 45.1 fl (35.1-43.9); Red Blood Count 4.29 M/mm3 (4.2-5.4); White Blood Count 9.3 K/mm3 (4.4-11.0)
[2024-03-30] MEDS: Ondansetron 4 MG/2 ML Vial IV (14:30)
[2024-03-30] MEDS: Morphine 4 MG/ML Syringe IV (14:30)
[2024-03-30 14:38] LABS: Anion Gap 5 (5-15); BUN 12 mg/dL (7-18); BUN/Creat Ratio 12.1 RATIO (10-20); Chloride 109 mmol/L (98-107); Creatinine, Serum 0.99 mg/dL (0.55-1.02); EST Glomerular Filtration Rate 57 mL/min (>60); Est Glom Filt Rate - Afr Amer 70 mL/min (>60); Estimated Creatinine Clearance 44.28 ml/min; Glucose 177 mg/dL (74-106); Lipase 68 U/L (13-75); Magnesium 1.3 mg/dL (1.6-2.6); Potassium 4.1 mmol/L (3.5-5.1); Sodium Level 138 mmol/L (136-145); Troponin-I HS 10 pg/mL (3.0-54.0)
[2024-03-30 15:19] LABS: Bacteria 0 SEEN /hpf (None Seen); Mucous, Urine 0 SEEN /hpf (<or=2+); Squamous Epithelial Cells - UA 0 SEEN /hpf (5-10)
[2024-03-30 15:25] LABS: Color, Urine Yellow (Yellow); Glucose, Dipstick 50 mg/dl (Normal); Ketone-Dipstick Negative (Negative); Leukocyte Esterase-Dipstick 25 /ul (Negative); Nitrite-Dipstick Negative (Negative); Occult Blood-Urine Negative /ul (Negative); Protein-Dipstick 30 mg/dl (Negative); Urine Bilirubin Dipstick Negative (Negative); Urine Clarity Clear (Clear); Urine Urobilinogen Normal (Normal)
[2024-03-30 15:33] VITALS: BP 160/78; PULSE 80; RESP 16; O2SAT 94
[2024-03-30 15:40] LABS: Red Blood Cells-Urine 0-5 SEEN /hpf (0-5); White Blood Cells 0-5 SEEN /hpf (0-5)
[2024-03-30] MEDS: Mag Hydrox/Al Hydrox/Simeth 30 ML UDC PO (16:17)
[2024-03-30] MEDS: Lidocaine 2% Viscous15 ML UDC 15 ML PO (16:17)
[2024-03-30] MEDS: Pantoprazole Sodium 40 MG in 0.9% Normal Saline (100mL MB+) 100 ML 330 MG IV (16:23)
[2024-03-30 17:00] VITALS: BP 155/72
== END 2024-03-30 17:36 | disposition home or self-care (01) ==
PROVIDERS: Emergency Provider Emergency Medicine; PCP Family Medicine; Visit Provider Emergency Medicine
DX: R10.13 Epigastric pain (principal); C50.919 Malignant neoplasm of unspecified site of unspecified female breast; E11.40 Type 2 diabetes mellitus with diabetic neuropathy, unspecified; E11.22 Type 2 diabetes mellitus with diabetic chronic kidney disease; Z79.4 Long term (current) use of insulin; R11.0 Nausea; R53.81 Other malaise; K21.9 Gastro-esophageal reflux disease without esophagitis; I12.9 Hypertensive chronic kidney disease with stage 1 through stage 4 chronic kidney disease, or unspecified chronic kidney disease; I44.0 Atrioventricular block, first degree; I44.7 Left bundle-branch block, unspecified; K76.0 Fatty (change of) liver, not elsewhere classified; E78.00 Pure hypercholesterolemia, unspecified; E07.9 Disorder of thyroid, unspecified; N18.9 Chronic kidney disease, unspecified; M19.90 Unspecified osteoarthritis, unspecified site; G25.81 Restless legs syndrome; Z87.19 Personal history of other diseases of the digestive system; Z98.51 Tubal ligation status; Z79.84 Long term (current) use of oral hypoglycemic drugs; Z79.899 Other long term (current) drug therapy; Z79.890 Hormone replacement therapy; Z87.891 Personal history of nicotine dependence; Z87.440 Personal history of urinary (tract) infections
CPT/HCPCS: 80048; 81001; 83690; 83735; 84484; 85025; 93005; 96374; 96375; 99283; J7040; A4216; J2405

== ENCOUNTER → 2024-04-02 | Outpatient (CLI) | payer MEDICARE, BC, SELFPAY ==
[2024-04-04 14:09] LABS: H. PYLORI STOOL AG Negative (Negative)
== END | disposition home or self-care (01) ==
PROVIDERS: PCP Family Medicine; Referring Provider Nurse Practitioner Acute Care; Visit Provider Nurse Practitioner Acute Care
DX: R10.13 Epigastric pain (principal); R11.0 Nausea; R53.83 Other fatigue
CPT/HCPCS: 87338

== ENCOUNTER 2024-04-24 10:25 | Emergency (ER) | payer MEDICARE, BC, SELFPAY ==
[2024-04-24 10:27] VITALS: BP 177/90; PULSE 80; RESP 13; O2SAT 98
[2024-04-24 10:29] VITALS: BP 186/95; PULSE 82; RESP 16; TEMP 36.5; O2SAT 98; BMI 31.4
--- NOTE | 2024-04-24 11:23 | EKG12_ITS ---
Test Reason : POST CHEST PAIN Blood Pressure : */* mmHG Vent. Rate : 81 BPM Atrial Rate : 81 BPM P-R Int : 228 ms QRS Dur : 136 ms QT Int : 388 ms P-R-T Axes : 42 -23 125 degrees QTcB Int : 450 ms Sinus rhythm with 1st degree A-V block Left bundle branch block Abnormal ECG Confirmed by JONEL ULRICH, CAITLIN ([id number]), sound editor MILANA RENAE ([id number]) on 04/30/2024 1:19:28 PM Referred By: MASOUD/RASHMI Confirmed By: CAITLIN REMY MD
--- NOTE | 2024-04-24 11:24 | RAD_ITS ---
HISTORY: chest pain. TECHNIQUE: XR Chest 2 Views. COMPARISON: 03/09/2022. FINDINGS: CARDIOMEDIASTINAL BORDERS: Mediastinal contour also unchanged with calcified subcarinal lymph nodes. LUNGS: Mild linear opacities in the right mid and left lower lung. PLEURA: No pleural effusion or pneumothorax seen. OSSEOUS STRUCTURES: Mild degenerative change. Surgical clips in the right axilla. RAD/Chest PA and Lateral IMPRESSION: Mild atelectasis or inflammation in the right mid and left lower lung. Electronically Signed: Tabatha Campos MD at 12:41 EST ,
--- NOTE | 2024-04-24 11:24 | ED.VIS.CHEST ---
HPI <NOVA Max - Last Filed: 04/24/24 15:48> History of Present Illness Chief Complaint: Chest Pain Narrative Narrative: Patient presenting today with substernal chest pressure/burning that started this morning and resolved. She reports that she has had upper abdominal pain over the past 6 weeks, her pain today is unchanged. She has been evaluated for this abdominal pain in the past, she reports that her PCP thinks this is likely a gastric ulcer and she was taking omeprazole which did provide some relief, especially after the dose was increased when she was here in the ED for evaluation. However, she ran out of her omeprazole 4 days ago and has noticed her pain has been worse over the last 4 days and describes it as a burning sensation with gastric reflux. She is having regular bowel movements, her last was this morning. She denies any history of previous abdominal surgery. She has intermittent nausea but denies vomiting, diarrhea, blood in the stool, and urinary symptoms. She denies any significant cardiac history. She has a PMH of T2DM, HTN, GERD, HLD. PE Risk Factors: Negative for Recent Immobilization or Prior DVT or PE PFSH <NOVA Max - Last Filed: 04/24/24 15:48> [facility] Medical History History of recent fall Fatty liver Restless legs Dietary restriction History of hiatal hernia History of ulceration Abdominal pain Post-menopausal Wears hearing aid Wears glasses Insulin dependent diabetes mellitus High cholesterol Back pain Gastric reflux Former smoker History of echocardiogram History of stress test Hx of corn of toe Hx of dermabrasion Bloating Hypergammaglobulinemia CKD (chronic kidney disease) Hyperlipidemia Cataracts, bilateral Increased urinary frequency Back pain Difficulty balancing Arthritis Thyroid disease Hypertension Home Medications ?Medication ?Instructions ?Recorded ?Last Taken ?Type levothyroxine 150 mcg tablet 150 mcg PO DAILY 12/03/14 03/16/22 History blood sugar diagnostic #100 ea 01/24/19 03/15/22 History blood-glucose meter #1 ea 01/24/19 03/15/22 History metformin 500 mg tablet,extended 2,000 mg PO QHS #360 tabs 01/24/19 03/15/22 History release 24 hr insulin glargine U-300 conc 300 70 unit subcut 1730 02/14/21 03/15/22 History unit/mL (1.5 mL) subcutaneous pen 35 UNITS ([employer] SoloStar U-300 Insulin) ibuprofen 400 mg tablet 400 mg PO Q6H PRN Pain 03/08/22 03/15/22 History olmesartan 20 mg tablet (Benicar) 40 mg PO DAILY 11/15/22 Unknown History cholecalciferol (vitamin D3) 50 50 mcg PO DAILY 11/27/22 Unknown History mcg (2,000 unit) capsule diphenhydramine HCl 25 mg capsule 25 mg PO QHS PRN 11/27/22 Unknown History (Benadryl) magnesium oxide 1,600 mg PO DAILY 11/27/22 Unknown History rosuvastatin 20 mg tablet 20 mg PO DAILY 11/27/22 Unknown History Bilateral wrist splints #2 ea 12/21/22 Unknown Rx duloxetine 60 mg capsule,delayed 60 mg PO QHS #90 caps 10/04/23 Unknown Rx release pregabalin 200 mg capsule (Lyrica) 200 mg PO BID #180 caps 10/04/23 Unknown Rx anastrozole 1 mg tablet 1 mg PO DAILY 10/05/23 Unknown History insulin lispro 100 unit/mL 40 unit subcut DINNER 04/02/24 Unknown History subcutaneous half-unit pen (Humalog Alec KwikPen (U-100)) omeprazole 40 mg capsule,delayed 40 mg PO BID abdominal pain #44 04/02/24 Unknown Rx release caps semaglutide 1 mg/dose (4 mg/3 mL) 1 mg subcut QWEEK 04/02/24 Unknown History subcutaneous pen injector (Ozempic) ondansetron HCl 4 mg tablet 4 mg PO Q8H #20 tabs 04/07/24 Unknown Rx Allergy/AdvReac Type Severity Reaction Status Date / Time gabapentin AdvReac Severe Other Verified 04/24/24 10:28 Family History Father Cancer lung/liver/pancreas Myocardial infarction Heart disease Grandfather Rectal cancer paternal Surgical History History of right breast biopsy (~11/2022) S/P ORIF (open reduction internal fixation) fracture Hx of arthroscopic knee surgery Hx of tubal ligation Social History Smoking Status: Former smoker alcohol intake: never ROS <NOVA Max - Last Filed: 04/24/24 15:48> ROS ED Constitutional Constitutional ED: Denies chills or fever(s) Cardiovascular Cardiovascular: Reports chest pain; Denies palpitations Respiratory/Chest Respiratory/Chest: Denies cough or dyspnea Gastrointestinal Gastrointestinal: Reports abdominal pain and nausea; Denies constipation, diarrhea, melena or vomiting Genitourinary Genitourinary ED: Denies dysuria, hematuria or urinary urgency Musculoskeletal Musculoskeletal: Denies arthralgias or myalgias Integumentary Denies rash Neurologic Neurologic: Denies weakness EXAM <NOVA Max - Last Filed: 04/24/24 15:48> Physical Exam Const Vital Signs: 04/24/24 10:27 04/24/24 10:29 04/24/24 12:27 Temperature 97.7 F L Temperature Source Oral Pulse Rate 80 82 78 Respiratory Rate 13 16 14 Blood Pressure 177/90 H 186/95 H 163/136 H Blood Pressure Mean 119 125 145 Pulse Ox 98 98 95 Oxygen Delivery Method Room Air Room Air Room Air 04/24/24 14:00 04/24/24 14:33 Temperature 97.7 F L Temperature Source Pulse Rate 79 79 Respiratory Rate 17 17 Blood Pressure 157/89 H 157/89 H Blood Pressure Mean 111 111 Pulse Ox 96 96 Oxygen Delivery Method Room Air Positive well nourished, well developed and no apparent distress General Appearance ED: well developed HEENT Reports normocephalic and head/scalp atraumatic Mouth ED: Yes moist mucous membranes normal Eyes PERRL and EOMs intact bilaterally Neck full ROM and supple Chest Wall inspection of chest normal Resp normal respiratory effort and clear to auscultation bilaterally Cardio regular rate and regular rhythm GI soft to palpation, non-tender, non-distended and no masses Back/Spine normal ROM and normal to inspection Extremity normal to inspection and full ROM Neuro oriented x3, CN's II-XII intact bilaterally, moves all extremities, no focal motor deficits and no sensory deficits noted Sensorium / Orientation: awake and alert Psych mental status grossly normal and thought process normal Skin no rashes or lesions noted and no wounds <Dr. Hector Manzano DO - Last Filed: 04/24/24 16:03> Physical Exam Const Vital Signs: 04/24/24 10:27 04/24/24 10:29 04/24/24 12:27 Temperature 97.7 F L Temperature Source Oral Pulse Rate 80 82 78 Respiratory Rate 13 16 14 Blood Pressure 177/90 H 186/95 H 163/136 H Blood Pressure Mean 119 125 145 Pulse Ox 98 98 95 Oxygen Delivery Method Room Air Room Air Room Air 04/24/24 14:00 04/24/24 14:33 Temperature 97.7 F L Temperature Source Pulse Rate 79 79 Respiratory Rate 17 17 Blood Pressure 157/89 H 157/89 H Blood Pressure Mean 111 111 Pulse Ox 96 96 Oxygen Delivery Method Room Air [facility] <NOVA Max - Last Filed: 04/24/24 15:48> [facility] Narrative Medical decision making narrative: Patient presenting today due to midsternal/substernal chest pain that started earlier today, it felt like a burning sensation she does have a history of gastric reflux which has been worse over the last 4 days since her omeprazole ran out. She did see her PCP today in the office who saw a left bundle branch block on her EKG, he did not have any recent EKGs to compare this to and sent her in for evaluation. She no longer has any chest discomfort. She has had chronic epigastric abdominal pain over the last 6 weeks that has been controlled with omeprazole until running out. Cardiac workup was obtained, she has a nonsignificant delta troponin. No transaminitis or ERNESTO on CMP. Lipase WNL. Her abdomen is soft and nontender, she recently had a CT scan of her abdomen, I do not feel any further abdominal imaging is indicated given her pain has not changed. I did speak with her PCP who has wrote her a prescription for the omeprazole, she is scheduled to have a gastric emptying study performed in May. She was given a GI cocktail here and Pepcid and reports complete resolution of her symptoms. Low suspicion for cardiac etiology. She will be discharged home in stable condition. Supervisory Physician Note Patient was seen and examined with the Advanced Practice Provider. Nursing notes and vital signs have been reviewed. Pertinent old records have been reviewed. I agree with the essential elements of the SHAWNA's history, physical exam, assessment, and plan. The differential diagnosis and management options were discussed with the SHAWNA. I participated in determining and agree with the management, procedures, final impression and disposition as documented. See changes noted by me. Please see addendum or separate note for any additional details. 78-year-old female with history of DM, HTN, HLD presents for evaluation of substernal chest pain. Patient was sent in by PCP. Onset of chest pain was today and has since resolved. Did not radiate down the arm, into the jaw. No diaphoresis. Patient states that she has endorsed epigastric abdominal pain for the past with 6 weeks. She states that pain improved with omeprazole however this was stopped 4 days ago by PCP for testing. She states yesterday her epigastric abdominal pain reoccurred. She describes it as burning. Associated symptom is increased acid reflux. She states her substernal chest pain was radiating from her epigastrium. She denies any fever, chills, shortness of breath, vomiting, diarrhea, constipation, bloody bowel movements, dysuria. No bilateral lower extremity swelling or pain. No recent travel or surgery. Patient saw her PCP today who did a outpatient EKG and showed a left bundle branch block. He sent her in for further evaluation. Gen: A&O x3, NAD Head: Normocephalic, atraumatic Eyes: No sclera icterus, conjunctiva clear ENT: Moist mucous membranes Neck: Trachea midline, No JVD CV: RRR, no murmurs, no peripheral edema Resp: Lungs CTA BL, no w/r/c GI: Abd soft, non-distended, non-tender, no r/r/g Musc: Full ROM, no deformity Skin: Warm, dry Neuro: Alert, oriented, grossly intact, sensation intact Psych: Cooperative, appropriate mood and affect Differential diagnosis includes but is not limited to gastritis, PUD, GERD. Her chest pain was atypical in nature. It has since resolved. Suspect less likely ACS. On chart review, patient was seen in our emergency department for her epigastric pain previously. She had unremarkable laboratory workup as well as negative CT abdomen pelvis. Patient's abdominal exam is benign and therefore I do not think repeat CT abdomen and pelvis is needed at this time. Pepcid, GI cocktail ordered for epigastric abdominal pain/symptoms. EKG was interpreted by me, EM physician. EKG shows normal sinus rhythm with known left bundle branch block. No acute ischemic changes. This is similar to previous EKG on 03/30/2024. Chest x-ray was personally interpreted and reviewed by self. Patient has mild atelectasis. No pneumonia, effusion, cardiomegaly, pneumothorax. CBC with mild leukocytosis 13.1. No anemia. CMP relatively unremarkable except for mild renal insufficiency with creatinine of 1.11. Patient states she has been eating and drinking well. No vomiting. Lipase unremarkable. Troponin flat x 2. On reevaluation, patient is still not having chest pain. Her epigastric abdominal pain has improved. I suspect her cause is gastritis. Patient's PCP was contacted okay to restart PPI. He wrote prescription. Patient stable to discharge home. Lab Data Attestation: I reviewed the patient's lab results. Labs: Laboratory Results - last 24 hr 04/24/24 04/24/24 10:15 13:35 WBC 13.1 H RBC 4.57 Hgb 13.5 Hct 40.8 MCV 89.3 MCH 29.5 MCHC 33.1 RDW Std Deviation 44.3 H RDW Coeff of Luiza 13.6 Plt Count 364 MPV 10.3 Immature Gran % (Auto) 0.500 Neut % (Auto) 65.0 Lymph % (Auto) 18.4 L Zapata % (Auto) 6.5 Eos % (Auto) 8.5 H Baso % (Auto) 1.1 H Absolute Neuts (auto) 8.6 H Absolute Lymphs (auto) 2.41 Nucleated RBC % 0 Sodium 134 L Potassium 4.0 Chloride 95 L Carbon Dioxide 27.0 Anion Gap 12 BUN 17 Creatinine 1.11 H Estim Creat Clear Calc 38.83 Est GFR (MDRD) Af Amer 61 Est GFR (MDRD) Non-Af 51 L BUN/Creatinine Ratio 15.3 Glucose 129 H Calcium 11.8 H Total Bilirubin 0.70 AST 31 ALT 17 Alkaline Phosphatase 97 Troponin I High Sens 43 40 Total Protein 9.0 H Albumin 3.6 Globulin 5.4 H Albumin/Globulin Ratio 0.7 L Lipase 41 Radiography Diagnostic Testing: Clinical Impression(s) from Imaging Studies Chest X-Ray 04/24/24 11:24 IMPRESSION: Mild atelectasis or inflammation in the right mid and left lower lung. Electronically Signed: Tabatha Campos MD at 12:41 EST Reading Location ID and State: [facility] / [place] Tel , Service support , EKG Initial EKG: Comments: 81 bpm, sinus rhythm with first-degree AV block, left bundle branch block <Dr. Hector Manzano, DO - Last Filed: 04/24/24 16:03> [facility] Narrative Medical decision making narrative: Patient presenting today due to midsternal/substernal chest pain that started earlier today, it felt like a burning sensation she does have a history of gastric reflux which has been worse over the last 4 days since her omeprazole ran out. She did see her PCP today in the office who saw a left bundle branch block on her EKG, he did not have any recent EKGs to compare this to and sent her in for evaluation. She no longer has any chest discomfort. She has had chronic epigastric abdominal pain over the last 6 weeks that has been controlled with omeprazole until running out. Cardiac workup was obtained, she has a nonsignificant delta troponin. No transaminitis or ERNESTO on CMP. Lipase WNL. Her abdomen is soft and nontender, she recently had a CT scan of her abdomen, I do not feel any further abdominal imaging is indicated given her pain has not changed. I did speak with her PCP who has wrote her a prescription for the omeprazole, she is scheduled to have a gastric emptying study performed in May. She was given a GI cocktail here and Pepcid and reports complete resolution of her symptoms. Low suspicion for cardiac etiology. She will be discharged home in stable condition. Supervisory Physician Note Patient was seen and examined with the Advanced Practice Provider. Nursing notes and vital signs have been reviewed. Pertinent old records have been reviewed. I agree with the essential elements of the SHAWNA's history, physical exam, assessment, and plan. The differential diagnosis and management options were discussed with the SHAWNA. I participated in determining and agree with the management, procedures, final impression and disposition as documented. See changes noted by me. Please see addendum or separate note for any additional details. 78-year-old female with history of DM, HTN, HLD presents for evaluation of substernal chest pain. Patient was sent in by PCP. Onset of chest pain was today and has since resolved. Did not radiate down the arm, into the jaw. No diaphoresis. Patient states that she has endorsed epigastric abdominal pain for the past with 6 weeks. She states that pain improved with omeprazole however this was stopped 4 days ago by PCP for testing. She states yesterday her epigastric abdominal pain reoccurred. She describes it as burning. Associated symptom is increased acid reflux. She states her substernal chest pain was radiating from her epigastrium. She denies any fever, chills, shortness of breath, vomiting, diarrhea, constipation, bloody bowel movements, dysuria. No bilateral lower extremity swelling or pain. No recent travel or surgery. Patient saw her PCP today who did a outpatient EKG and showed a left bundle branch block. He sent her in for further evaluation. Gen: A&O x3, NAD Head: Normocephalic, atraumatic Eyes: No sclera icterus, conjunctiva clear ENT: Moist mucous membranes Neck: Trachea midline, No JVD CV: RRR, no murmurs, no peripheral edema Resp: Lungs CTA BL, no w/r/c GI: Abd soft, non-distended, non-tender, no r/r/g Musc: Full ROM, no deformity Skin: Warm, dry Neuro: Alert, oriented, grossly intact, sensation intact Psych: Cooperative, appropriate mood and affect Differential diagnosis includes but is not limited to gastritis, PUD, GERD. Her chest pain was atypical in nature. It has since resolved. Suspect less likely ACS. On chart review, patient was seen in our emergency department for her epigastric pain previously. She had unremarkable laboratory workup as well as negative CT abdomen pelvis. Patient's abdominal exam is benign and therefore I do not think repeat CT abdomen and pelvis is needed at this time. Pepcid, GI cocktail ordered for epigastric abdominal pain/symptoms. EKG was interpreted by me, EM physician. EKG shows normal sinus rhythm with known left bundle branch block. No acute ischemic changes. This is similar to previous EKG on 03/30/2024. Chest x-ray was personally interpreted and reviewed by self. Patient has mild atelectasis. No pneumonia, effusion, cardiomegaly, pneumothorax. CBC with mild leukocytosis 13.1. No anemia. CMP relatively unremarkable except for mild renal insufficiency with creatinine of 1.11. Patient states she has been eating and drinking well. No vomiting. Lipase unremarkable. Troponin flat x 2. On reevaluation, patient is still not having chest pain. Her epigastric abdominal pain has improved. I suspect her cause is gastritis. Patient's PCP was contacted okay to restart PPI. He wrote prescription. Patient stable to discharge home. Follow-up with PCP. Impression: 1. Gastritis 2. GERD 3. Abdominal pain 4. Atypical chest pain. Lab Data Labs: Laboratory Results - last 24 hr 04/24/24 04/24/24 10:15 13:35 WBC 13.1 H RBC 4.57 Hgb 13.5 Hct 40.8 MCV 89.3 MCH 29.5 MCHC 33.1 RDW Std Deviation 44.3 H RDW Coeff of Luiza 13.6 Plt Count 364 MPV 10.3 Immature Gran % (Auto) 0.500 Neut % (Auto) 65.0 Lymph % (Auto) 18.4 L Zapata % (Auto) 6.5 Eos % (Auto) 8.5 H Baso % (Auto) 1.1 H Absolute Neuts (auto) 8.6 H Absolute Lymphs (auto) 2.41 Nucleated RBC % 0 Sodium 134 L Potassium 4.0 Chloride 95 L Carbon Dioxide 27.0 Anion Gap 12 BUN 17 Creatinine 1.11 H Estim Creat Clear Calc 38.83 Est GFR (MDRD) Af Amer 61 Est GFR (MDRD) Non-Af 51 L BUN/Creatinine Ratio 15.3 Glucose 129 H Calcium 11.8 H Total Bilirubin 0.70 AST 31 ALT 17 Alkaline Phosphatase 97 Troponin I High Sens 43 40 Total Protein 9.0 H Albumin 3.6 Globulin 5.4 H Albumin/Globulin Ratio 0.7 L Lipase 41 Radiography Diagnostic Testing: Clinical Impression(s) from Imaging Studies Chest X-Ray 04/24/24 11:24 IMPRESSION: Mild atelectasis or inflammation in the right mid and left lower lung. Electronically Signed: Tabatha Campos MD at 12:41 EST , Discharge Plan Triage Chief Complaint: Chest Pain ED Midlevel Provider: Stacey Ward ED Provider: Hector Manzano Dx/Rx/DC Orders Clinical Impression: Hx of gastroesophageal reflux (GERD), Abdominal pain, Atypical chest pain Instructions: ED GERD (Adult), ED Epigastric Pain Uncertain Cause Prescriptions: No Action (DME) blood sugar diagnostic Strip See Rx Instructions .ROUTE .MEDSUPPLY Qty: 100 Patient Comments: use 1 Strip four times daily Rx Instructions: As directed metformin 500 mg tablet extended release 24 hr 2,000 mg PO QHS Qty: 360 Patient Comments: TAKE 4 TABLETS BY MOUTH ONCE DAILY AT NIGHT (DME) blood-glucose meter Misc See Rx Instructions .ROUTE .MEDSUPPLY Qty: 1 Rx Instructions: As directed [employer] SoloStar U-300 Insulin 300 unit/mL (1.5 mL) insulin pen 70 unit subcut 1730 insulin lispro [Humalog Alec KwikPen U-100] 100 unit/mL insulin pen, half-unit 40 unit subcut DINNER diphenhydramine HCl [Benadryl] 25 mg capsule 25 mg PO QHS PRN rosuvastatin 20 mg tablet 20 mg PO DAILY cholecalciferol (vitamin D3) 50 mcg (2,000 unit) capsule 50 mcg PO DAILY magnesium oxide 400 mg magnesium tablet 1,600 mg PO DAILY duloxetine 60 mg capsule,delayed release(DR/EC) 60 mg PO QHS Qty: 90 2RF pregabalin [Lyrica] 200 mg capsule 200 mg PO BID Qty: 180 1RF anastrozole 1 mg tablet 1 mg PO DAILY Ozempic 1 mg/dose (4 mg/3 mL) pen injector 1 mg subcut QWEEK omeprazole 40 mg capsule,delayed release(DR/EC) 40 mg PO BID Qty: 44 0RF Rx Instructions: x2 until 04/09 then 1 tablet QD after that levothyroxine 150 MCG tablet 150 mcg PO DAILY olmesartan [Benicar] 20 mg tablet 40 mg PO DAILY Patient Comments: 1 tablet by mouth once a day ibuprofen 400 mg Tablet 400 mg PO Q6H PRN (Reason: Pain) (DME) Bilateral wrist splints See Rx Instructions .ROUTE .MEDSUPPLY Qty: 2 0RF Rx Instructions: Right and left wrist splints to be worn at night ondansetron HCl 4 mg tablet 4 mg PO Q8H Qty: 20 1RF Primary Care Provider: Abhinav Bosch Referrals: Abhinav Bosch MD [Primary Care Provider] - 5-7 Days Activity Restrictions/Additional Instructions: Follow-up with your PCP and return for any worsening symptoms. Print Language: Icelandic Disposition Disposition: Home, Self Care Discharge Date/Time: 04/24/24 14:43
[2024-04-24 11:30] LABS: Absolute Lymphocyte Count 2.41 X10^3/uL (0.83-4.51); Absolute Neutrophil Count 8.6 X10^3/uL (2.0-7.7); Basophil# 0.14 X10^3/uL; Basophil% 1.1 % (0-1); Eosinophil# 1.11 X10^3/uL; Eosinophils% 8.5 % (0-5); Hematocrit 40.8 % (37-47); Hemoglobin 13.5 g/dL (12.0-15.0); Lymphocyte # 2.41 X10^3/ul (0.83-4.51); Lymphocyte % 18.4 % (19-41); Mean Corp Hgb Conc 33.1 g/dL (32-36); Mean Corpuscular Hgb 29.5 pg (27.0-32.0); Mean Corpuscular Volume 89.3 fL (81-99); Mean Platelet Vol. 10.3 fl (6.2-12.0); Monocyte# 0.85 X10^3/uL; Monocyte% 6.5 % (0-10); NRBC Flagged by Analyzer 0 % (0-5); Neutrophil # 8.56 X10^3/uL (2.7-7.7); Platelet Count 364 K/mm3 (150-450); RBC Distribution Width CV 13.6 % (11.6-14.6); RBC Distribution Width SD 44.3 fl (35.1-43.9); Red Blood Count 4.57 M/mm3 (4.2-5.4); White Blood Count 13.1 K/mm3 (4.4-11.0)
[2024-04-24 11:51] LABS: ALB/GLOB Ratio 0.7 RATIO (0.9-2.4); AST(SGOT) 31 U/L (15-37); Alanine Aminotransfer ALT/SGPT 17 U/L (13-56); Albumin, Serum 3.6 g/dL (3.2-5.0); Alkaline Phosphatase 97 U/L (45-117); Anion Gap 12 (5-15); BUN 17 mg/dL (7-18); BUN/Creat Ratio 15.3 RATIO (10-20); Calcium,Total 11.8 mg/dL (8.5-10.1); Chloride 95 mmol/L (98-107); Creatinine, Serum 1.11 mg/dL (0.55-1.02); EST Glomerular Filtration Rate 51 mL/min (>60); Est Glom Filt Rate - Afr Amer 61 mL/min (>60); Estimated Creatinine Clearance 38.83 ml/min; Globulin 5.4 g/dL (2.2-4.2); Glucose 129 mg/dL (74-106); Lipase 41 U/L (13-75); Sodium Level 134 mmol/L (136-145); Troponin-I HS (w/2H Reflex) 43 pg/mL (3.0-54.0)
[2024-04-24] MEDS: Mag Hydrox/Al Hydrox/Simeth 30 ML UDC PO (11:56)
[2024-04-24] MEDS: Famotidine 20 MG Tablet PO (11:56)
[2024-04-24] MEDS: Lidocaine 2% Viscous15 ML UDC 15 ML PO (11:56)
[2024-04-24 12:27] VITALS: BP 163/136; PULSE 78; RESP 14; O2SAT 95
[2024-04-24 13:27] LABS: Reflex Troponin-HS? (from REC) Y
[2024-04-24 14:00] VITALS: BP 157/89; PULSE 79; RESP 17; O2SAT 96
[2024-04-24 14:07] LABS: Troponin-I HS 40 pg/mL (3.0-54.0)
[2024-04-24 14:33] VITALS: BP 157/89; PULSE 79; RESP 17; TEMP 36.5; O2SAT 96
== END 2024-04-24 14:43 | disposition home or self-care (01) ==
PROVIDERS: Physician Assistant; Emergency Provider Surgery; PCP Family Medicine; Visit Provider Surgery
DX: K29.70 Gastritis, unspecified, without bleeding (principal); E11.22 Type 2 diabetes mellitus with diabetic chronic kidney disease; Z79.4 Long term (current) use of insulin; I12.9 Hypertensive chronic kidney disease with stage 1 through stage 4 chronic kidney disease, or unspecified chronic kidney disease; I44.0 Atrioventricular block, first degree; R07.89 Other chest pain; I44.7 Left bundle-branch block, unspecified; N18.9 Chronic kidney disease, unspecified; K21.9 Gastro-esophageal reflux disease without esophagitis; E07.9 Disorder of thyroid, unspecified; E78.00 Pure hypercholesterolemia, unspecified; J98.11 Atelectasis; Z87.19 Personal history of other diseases of the digestive system; Z79.84 Long term (current) use of oral hypoglycemic drugs; Z79.899 Other long term (current) drug therapy; Z79.890 Hormone replacement therapy; Z87.891 Personal history of nicotine dependence
CPT/HCPCS: 71046; 80053; 83690; 84484; 85025; 93005; 99285; A4216

== ENCOUNTER → 2024-05-22 | Outpatient (CLI) | payer MEDICARE, BC, SELFPAY ==
--- NOTE | 2024-05-22 10:13 | NM_ITS ---
CLINICAL: 78-year-old diabetic female with history of abdominal pain. SEMI-SOLID PHASE 99m Tc SULFUR COLLOID GASTRIC EMPTYING STUDY COMPARISON: CT of the abdomen-pelvis report 03/27/2024 FINDINGS: The patient was administered 1.2 mCi of 99m Tc sulfur colloid mixed with oatmeal and consumed per os. Image acquisitions in the anterior-posterior projections were obtained for 60 minutes. There is prompt visualization of the stomach. There is no gastroesophageal reflux identified. First order kinetics are maintained throughout the duration of the acquisitions. The T ? linear fit was extrapolated to be 68.30 minutes, (Normal: 12-56 minutes). NM/Gastric Emptying Study IMPRESSION: 1. ABNORMAL 99m Tc sulfur colloid semi-solid phase (oatmeal) gastric emptying imaging examination. A. There is delayed semi-solid phase gastric emptying compared to normal controls with maintained first order kinetics throughout all components of the examination. Electronically Signed: Teja Zhu DO at 9:15 EST ,
== END | disposition home or self-care (01) ==
LOC: NM 10:10
PROVIDERS: PCP Family Medicine; Referring Provider Family Medicine; Visit Provider Family Medicine
DX: E11.8 Type 2 diabetes mellitus with unspecified complications (principal)
CPT/HCPCS: 78264; A9541

== ENCOUNTER 2024-05-23 06:02 | Day surgery (SDC) | payer MEDICARE, BC, SELFPAY ==
[2024-05-21 12:26] VITALS: BMI 30.6
--- NOTE | 2024-05-21 13:57 | PAT.ANESEVAL ---
Pre-Assessment Diagnosis/Proposed Procedure Planned Operative Procedure(s): EGD Anesthesia History Anesthesia History - supervisor composing room: Anesthesia History - supervisor composing room Hx Hospitalization No 05/21/24 12:26 Any Problems With Anesthesia No 05/21/24 12:26 Cholinesterase deficiency No 05/21/24 12:26 You/Your Family Experience No 05/21/24 12:26 fever (hyperthermia) with Relationship Recent Exposure to Contagious No 03/16/22 06:30 Disease Does patient have nerve No 05/21/24 12:26 stimulator Patient instructed to have device shut off --Does patient have Pacemaker or ICD? When Was Last Pacemaker Check QUESTION #4 FULL TEXT: You/Your Family Experience fever (hyperthermia) with Anesthesia Last Oral Intake Last Oral intake: Last Oral Intake NPO since Meds taken in AM with sips of water? Meds patient instructed to take am of surgery PONV PONV - supervisor composing room: PONV - supervisor composing room Female Yes 05/21/24 12:26 HX of Motion Sickness No 05/21/24 12:26 HX of N/V After Surgery No 05/21/24 12:26 Non-Smoker Yes 05/21/24 12:26 Duration of Surgery greater No 05/21/24 12:26 than 60 minutes Number of Risk Factors 2 05/21/24 12:26 PONV Score Moderate Risk 05/21/24 12:26 Height & Weight Height & Weight: Anesthesia: Height & Weight Height 5 ft 1 in 05/21/24 12:26 Weight: 73.549 kg 05/21/24 12:26 Body Mass Index (BMI) 30.6 05/21/24 12:26 Respiratory Assessment Respiratory Assessment - supervisor composing room: Respiratory Tract Infection Hx - supervisor composing room Hx Respiratory Tract Infection No 05/21/24 12:26 STOP Sleep Apnea STOP Sleep Apnea - supervisor composing room: STOP Sleep Apnea - supervisor composing room Hx Hypertension Yes: CONTROLLED ON MED 05/21/24 12:26 Hx Sleep Apnea No 05/21/24 12:26 CPAP No 05/21/24 12:26 BIPAP No 05/21/24 12:26 Do you snore loudly (louder No 05/21/24 12:26 than talking or can be heard Do you often feel tired/ No 05/21/24 12:26 fatigued/ sleepy during daytime? Has anyone observed you stop No 05/21/24 12:26 breathing during sleep? STOP Results Negative 05/21/24 12:26 QUESTION #5 FULL TEXT : Do you snore loudly (louder than talking or can be heard through closed doors)? 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 Specify any problems Hx of Preganancy in last 3 No 05/21/24 12:26 Months Nurse Filling Out Transfusion VCHRISTIN 05/21/24 12:26 & Questions: Date: 05/21/24 05/21/24 12:26 Time: 12:27 05/21/24 12:26 Patient unable to answer at this time (ie. confused, unrespo /Reproduction History /Reproductive History - supervisor composing room: /Reproductive Hx- supervisor composing room Hx Now No 05/21/24 12:26 Gestational Age (in weeks): EDC: Hx Hx Para Hx Section SAB No 05/21/24 12:26 PFSH Medical History (Updated 05/21/24 @ 12:26 by Hollie Walls) Cancer Thyroid disease Diabetes Leg cramps History of neuropathy History of recent fall Fatty liver Restless legs Dietary restriction History of hiatal hernia History of ulceration Abdominal pain Post-menopausal Wears hearing aid Wears glasses Insulin dependent diabetes mellitus High cholesterol Back pain Gastric reflux Former smoker History of echocardiogram History of stress test Hx of corn of toe Hx of dermabrasion Bloating Hypergammaglobulinemia CKD (chronic kidney disease) Hyperlipidemia Cataracts, bilateral Increased urinary frequency Back pain Difficulty balancing Arthritis Thyroid disease Hypertension Home Medications ?Medication ?Instructions ?Recorded ?Last Taken ?Type levothyroxine 150 mcg tablet 150 mcg PO DAILY 12/03/14 03/16/22 History blood sugar diagnostic #100 ea 01/24/19 03/15/22 History blood-glucose meter #1 ea 01/24/19 03/15/22 History metformin 500 mg tablet,extended 2,000 mg PO QHS #360 tabs 01/24/19 03/15/22 History release 24 hr insulin glargine U-300 conc 300 70 unit subcut 1730 02/14/21 03/15/22 History unit/mL (1.5 mL) subcutaneous pen 35 UNITS (Toujeo SoloStar U-300 Insulin) ibuprofen 400 mg tablet 400 mg PO Q6H PRN Pain 03/08/22 03/15/22 History olmesartan 20 mg tablet (Benicar) 40 mg PO DAILY 11/15/22 Unknown History cholecalciferol (vitamin D3) 50 50 mcg PO DAILY 11/27/22 Unknown History mcg (2,000 unit) capsule diphenhydramine HCl 25 mg capsule 25 mg PO QHS PRN sleep 11/27/22 Unknown History (Benadryl) magnesium oxide 1,600 mg PO DAILY 11/27/22 Unknown History rosuvastatin 20 mg tablet 20 mg PO DAILY 11/27/22 Unknown History Bilateral wrist splints #2 ea 12/21/22 Unknown Rx anastrozole 1 mg tablet 1 mg PO DAILY 10/05/23 Unknown History insulin lispro 100 unit/mL 40 unit subcut .1/2 HR PRIOR TO 04/02/24 Unknown History subcutaneous half-unit pen MEAL (Humalog Alec Abrahan (U-100)) omeprazole 40 mg capsule,delayed 40 mg PO BID abdominal pain #44 04/02/24 Unknown Rx release caps semaglutide 1 mg/dose (4 mg/3 mL) 1 mg subcut QWEEK 04/02/24 05/04/24 History subcutaneous pen injector (Ozempic) ondansetron HCl 4 mg tablet 4 mg PO Q8H #20 tabs 04/07/24 Unknown Rx duloxetine 60 mg capsule,delayed 60 mg PO QHS #90 caps 05/13/24 Unknown Rx release pregabalin 200 mg capsule (Lyrica) 200 mg PO BID #180 caps 05/13/24 Unknown Rx Allergy/AdvReac Type Severity Reaction Status Date / Time gabapentin AdvReac Severe Other Verified 05/21/24 12:03 Family History Father Cancer lung/liver/pancreas Myocardial infarction Heart disease Grandfather Rectal cancer paternal Surgical History (Updated 05/21/24 @ 12:26 by Hollie Walls) History of back surgery Hx of right mastectomy History of right breast biopsy (~11/2022) S/P ORIF (open reduction internal fixation) fracture Hx of arthroscopic knee surgery Hx of tubal ligation Social History Smoking Status: Former smoker alcohol intake: never Audit: Pertinent Findings Pertinent Findings EKG Perinent findings: 04/24/2024 sinus rhythm first-degree AV block left bundle branch block Echo (EF%) pertinent findings: 05/21/2020 EF 55% septal motion consistent with interventricular conduction delay left bundle branch block present Recommendation Anesthesia Recommendation Anesthesia recommendation: OPTIMIZED for anesthesia
[2024-05-23] VITALS (8 sets, daily range): BP systolic 80–139; BP diastolic 47–80; PULSE 76–77; RESP 16; TEMP 36.4–36.7; O2SAT 94–100; BMI 30.8
--- NOTE | 2024-05-23 06:38 | HP.PCM_ITS ---
HPI - General General Date of Admission: 05/23/24 Date of Service: 05/23/24 Chief Complaint: abdominal pain HPI Narrative HPI HPI Chief Complaint: abd pain Details: SULEIMAN RAMSEY, is a 78 F who presents to the office today for f/u. [facility] established 02.14.21 EGD 01.12.22; - LA Grade A reflux esophagitis. Biopsied. - Non-obstructing Schatzki ring. - Non-obstructing non-bleeding gastric ulcer with no stigmata of bleeding. Biopsied. OV 04.02.24 w/ epigastric pain, nausea and 5lbs weight loss for one week. Hx of H. pylori infection. Started ozempic prior to symptom start. Increased omeprazole to 40 mg BID. EGD scheduled [facility] ED 04.24.24 visit after presenting to PCP with chest pain. Work up negative for cardiac etiology. GI cocktail resolved symptoms Discharged. OV 05.02.24 Here today for f/u after ED visit. Pt daughter is here with her today and helps provide hx. Her epigastric pain is better while on twice a day PPI but not completely resolved. She continues to have pain with eating. She has only been able to eat soups and nutritional drinks. She is now also having diarrhea after she eats any food.PCP recently ordered GES. [facility] Medical History Cancer Thyroid disease Diabetes Leg cramps History of neuropathy History of recent fall Fatty liver Restless legs Dietary restriction History of hiatal hernia History of ulceration Abdominal pain Post-menopausal Wears hearing aid Wears glasses Insulin dependent diabetes mellitus High cholesterol Back pain Gastric reflux Former smoker History of echocardiogram History of stress test Hx of corn of toe Hx of dermabrasion Bloating Hypergammaglobulinemia CKD (chronic kidney disease) Hyperlipidemia Cataracts, bilateral Increased urinary frequency Back pain Difficulty balancing Arthritis Thyroid disease Hypertension Home Medications ?Medication ?Instructions ?Recorded ?Last Taken ?Type levothyroxine 150 mcg tablet 150 mcg PO DAILY 12/03/14 05/23/24 History blood sugar diagnostic #100 ea 01/24/19 03/15/22 History blood-glucose meter #1 ea 01/24/19 03/15/22 History metformin 500 mg tablet,extended 2,000 mg PO QHS #360 tabs 01/24/19 03/15/22 History release 24 hr insulin glargine U-300 conc 300 70 unit subcut 1730 02/14/21 05/23/24 History unit/mL (1.5 mL) subcutaneous pen (Toujeo SoloStar U-300 Insulin) ibuprofen 400 mg tablet 400 mg PO Q6H PRN Pain 03/08/22 03/15/22 History olmesartan 20 mg tablet (Benicar) 40 mg PO DAILY 11/15/22 05/23/24 History cholecalciferol (vitamin D3) 50 50 mcg PO DAILY 11/27/22 Unknown History mcg (2,000 unit) capsule diphenhydramine HCl 25 mg capsule 25 mg PO QHS PRN sleep 11/27/22 Unknown History (Benadryl) magnesium oxide 1,600 mg PO DAILY 11/27/22 Unknown History rosuvastatin 20 mg tablet 20 mg PO DAILY 11/27/22 Unknown History Bilateral wrist splints #2 ea 12/21/22 Unknown Rx anastrozole 1 mg tablet 1 mg PO DAILY 10/05/23 Unknown History insulin lispro 100 unit/mL 40 unit subcut .1/2 HR PRIOR TO 04/02/24 Unknown History subcutaneous half-unit pen MEAL (Humalog Alec KwikPen (U-100)) omeprazole 40 mg capsule,delayed 40 mg PO BID abdominal pain #44 04/02/24 Unknown Rx release caps semaglutide 1 mg/dose (4 mg/3 mL) 1 mg subcut QWEEK 04/02/24 05/04/24 History subcutaneous pen injector (Ozempic) ondansetron HCl 4 mg tablet 4 mg PO Q8H #20 tabs 04/07/24 Unknown Rx duloxetine 60 mg capsule,delayed 60 mg PO QHS #90 caps 05/13/24 Unknown Rx release pregabalin 200 mg capsule (Lyrica) 200 mg PO BID #180 caps 05/13/24 05/23/24 Rx Allergy/AdvReac Type Severity Reaction Status Date / Time gabapentin AdvReac Severe Other Verified 05/23/24 06:20 Family History Father Cancer lung/liver/pancreas Myocardial infarction Heart disease Grandfather Rectal cancer paternal Surgical History History of back surgery Hx of right mastectomy History of right breast biopsy (~11/2022) S/P ORIF (open reduction internal fixation) fracture Hx of arthroscopic knee surgery Hx of tubal ligation Social History Smoking Status: Former smoker alcohol intake: never ROS Constitutional Constitutional: Denies fatigue, fever(s), poor appetite, weight gain or weight loss Gastrointestinal Gastrointestinal: Denies belching, bloating, change in bowel habits, change in stool character, chewing difficulty, coffee ground emesis, constipation, cramping, diarrhea, dyspepsia, dysphagia, early satiety, excessive flatus, fecal incontinence, heartburn, hematemesis, hematochezia, hemorrhoids, loose stools, melena, nausea, odynophagia, rectal bleeding, tenesmus, vomiting or weight changes Vital Signs Vital Signs Vital Signs: 05/23/24 06:22 05/23/24 06:22 Temperature 97.8 F Temperature Source Temporal Pulse Rate 77 Respiratory Rate 16 Respiratory Pattern Normal Blood Pressure 139/80 H Blood Pressure Mean 99 Blood Pressure Source Monitor Blood Pressure Position Semi-Fowlers Blood Pressure Location Right Arm Pulse Ox 100 Oxygen Delivery Method Room Air Weight Weight: 163 lb 2.273 oz Body Mass Index (BMI) 30.8 Physical Exam Const alert, oriented x3, no apparent distress and healthy appearing General Appearance: cooperative GI normal to inspection, nondistended, normoactive bowel sounds, soft to palpation, non-tender and non-distended Percussion: normal to percussion Rectal Exam: deferred Assessment & Plan Assessment/Plan (1) Gastric reflux: (2) Abdominal pain: PLAN: Assessment and Plan Assessment and Plan (1) Epigastric abdominal pain: Status: Inactive Plan: This is a 78 yo female pt here today for hospital f/u. Pt has been seeing I for epigastric pain. Omeprazole was increased to twice a day and this has help ed. She will continue this for now. She has a hx if H. pylori infection but testing was negative. She is already scheduled for EGD. Since pt is having diarrhea she will also undergo colonoscopy at the same time. -Continue omeprazole 40 mg BID -EGD and Colonoscopy -PCP ordered GES -f/u after procedure
--- NOTE | 2024-05-23 06:46 | PCM.PRE.AN2 ---
ASA Classification* ASA Classification ASA Classification: 3 Assessment & Plan Anesthesia* Anesthesia Assessment Anesthesia Assessment: Discussed sedation and/or anesthesia options, risks, benefits, and alternatives with patient/parents/legal guardian/POA. Questions invited. The patient/parents/legal guardian/POA seems to understand and agrees to proceed with anesthesia plan. Reviewed the physical assessment, medical history, allergy history and patient home medications list prior to surgery/procedure/anesthetic and documented any changes. Performed airway and anesthesia risk assessments. Anesthesia Type Anesthesia Type: MAC History Source History Obtained from:: Patient and Chart Anesthesia Focused Assessment* Temperature: 97.8 F Pulse Rate: 77 Blood Pressure: 139/80 Respiratory Rate: 16 Pulse Ox: 100 Oxygen Delivery Method: Room Air Airway Assessment Mouth opens: >3 cm Mallampati Score: I Teeth Condition: Caps/Crowns (Patient has a couple crowns. They are tight.) and Missing (Patient has 1 missing tooth. The rest are tight.) Neck Range of motion (ROM): Full ROM Focused Labs Anesthesia Preop lab: CBC WBC 13.1 K/mm3 (4.4-11.0) H 04/24/24 10:15 RBC 4.57 M/mm3 (4.2-5.4) 04/24/24 10:15 Hgb 13.5 g/dL (12.0-15.0) 04/24/24 10:15 Hct 40.8 % (37-47) 04/24/24 10:15 Plt Count 364 K/mm3 (150-450) 04/24/24 10:15 CHEMISTRY Potassium 4.0 mmol/L (3.5-5.1) 04/24/24 10:15 Sodium 134 mmol/L (136-145) L 04/24/24 10:15 Magnesium 1.3 mg/dL (1.6-2.6) L 03/30/24 13:48 Phosphorus 2.7 mg/dL (2.5-4.9) 10/30/22 08:36 BUN 17 mg/dL (7-18) 04/24/24 10:15 Creatinine 1.11 mg/dL (0.55-1.02) H 04/24/24 10:15 Glucose 129 mg/dL (74-106) H 04/24/24 10:15 POC Glucose 180 mg/dL (74-106) H 03/16/22 10:14 TSH 5.660 uIU/mL (0.358-3.740) H 02/21/24 10:31 COAG Pre-Assessment Diagnosis/Proposed Procedure Planned Operative Procedure(s): EGD Anesthesia History Anesthesia History - solar/renewable energy sales: Anesthesia History - solar/renewable energy sales Hx Hospitalization No 05/21/24 12:26 Any Problems With Anesthesia No 05/21/24 12:26 Cholinesterase deficiency No 05/21/24 12:26 You/Your Family Experience No 05/21/24 12:26 fever (hyperthermia) with Relationship Recent Exposure to Contagious No 05/23/24 06:22 Disease Does patient have nerve No 05/21/24 12:26 stimulator Patient instructed to have device shut off --Does patient have Pacemaker No 05/23/24 06:22 or ICD? When Was Last Pacemaker Check QUESTION #4 FULL TEXT: You/Your Family Experience fever (hyperthermia) with Anesthesia Last Oral Intake Last Oral intake: Last Oral Intake NPO since 22:00 05/23/24 06:22 Meds taken in AM with sips of water? Meds patient instructed to take am of surgery Any additional information?: Yes Meds taken in AM with sips of water?: Yes PONV PONV - solar/renewable energy sales: PONV - solar/renewable energy sales Female Yes 05/21/24 12:26 HX of Motion Sickness No 05/21/24 12:26 HX of N/V After Surgery No 05/21/24 12:26 Non-Smoker Yes 05/21/24 12:26 Duration of Surgery greater No 05/21/24 12:26 than 60 minutes Number of Risk Factors 2 05/21/24 12:26 PONV Score Moderate Risk 05/21/24 12:26 Height & Weight Height & Weight: Anesthesia: Height & Weight Height 5 ft 1 in 05/23/24 06:22 Weight: 74 kg 05/23/24 06:22 Body Mass Index (BMI) 30.8 05/23/24 06:22 Respiratory Assessment Respiratory Assessment - solar/renewable energy sales: Respiratory Tract Infection Hx - solar/renewable energy sales Hx Respiratory Tract Infection No 05/21/24 12:26 STOP Sleep Apnea STOP Sleep Apnea - solar/renewable energy sales: STOP Sleep Apnea - solar/renewable energy sales Hx Hypertension Yes: CONTROLLED ON MED 05/21/24 12:26 Hx Sleep Apnea No 05/21/24 12:26 CPAP No 05/21/24 12:26 BIPAP No 05/21/24 12:26 Do you snore loudly (louder No 05/21/24 12:26 than talking or can be heard Do you often feel tired/ No 05/21/24 12:26 fatigued/ sleepy during daytime? Has anyone observed you stop No 05/21/24 12:26 breathing during sleep? STOP Results Negative 05/21/24 12:26 QUESTION #5 FULL TEXT : Do you snore loudly (louder than talking or can be heard through closed doors)? 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 Specify any problems Hx of Preganancy in last 3 No 05/21/24 12:26 Months Nurse Filling Out Transfusion VCHRISTIN 05/21/24 12:26 & Questions: Date: 05/21/24 05/21/24 12:26 Time: 12:27 05/21/24 12:26 Patient unable to answer at this time (ie. confused, unrespo /Reproduction History /Reproductive History - solar/renewable energy sales: /Reproductive Hx- solar/renewable energy sales Hx Now No 05/21/24 12:26 Gestational Age (in weeks): EDC: Hx Hx Para Hx Section SAB No 05/21/24 12:26 PFSH Medical History Cancer Thyroid disease Diabetes Leg cramps History of neuropathy History of recent fall Fatty liver Restless legs Dietary restriction History of hiatal hernia History of ulceration Abdominal pain Post-menopausal Wears hearing aid Wears glasses Insulin dependent diabetes mellitus High cholesterol Back pain Gastric reflux Former smoker History of echocardiogram History of stress test Hx of corn of toe Hx of dermabrasion Bloating Hypergammaglobulinemia CKD (chronic kidney disease) Hyperlipidemia Cataracts, bilateral Increased urinary frequency Back pain Difficulty balancing Arthritis Thyroid disease Hypertension Home Medications ?Medication ?Instructions ?Recorded ?Last Taken ?Type levothyroxine 150 mcg tablet 150 mcg PO DAILY 12/03/14 05/23/24 History blood sugar diagnostic #100 ea 01/24/19 03/15/22 History blood-glucose meter #1 ea 01/24/19 03/15/22 History metformin 500 mg tablet,extended 2,000 mg PO QHS #360 tabs 01/24/19 03/15/22 History release 24 hr insulin glargine U-300 conc 300 70 unit subcut 1730 02/14/21 05/23/24 History unit/mL (1.5 mL) subcutaneous pen (TouH-umus SoloStar U-300 Insulin) ibuprofen 400 mg tablet 400 mg PO Q6H PRN Pain 03/08/22 03/15/22 History olmesartan 20 mg tablet (Benicar) 40 mg PO DAILY 11/15/22 05/23/24 History cholecalciferol (vitamin D3) 50 50 mcg PO DAILY 11/27/22 Unknown History mcg (2,000 unit) capsule diphenhydramine HCl 25 mg capsule 25 mg PO QHS PRN sleep 11/27/22 Unknown History (Benadryl) magnesium oxide 1,600 mg PO DAILY 11/27/22 Unknown History rosuvastatin 20 mg tablet 20 mg PO DAILY 11/27/22 Unknown History Bilateral wrist splints #2 ea 12/21/22 Unknown Rx anastrozole 1 mg tablet 1 mg PO DAILY 10/05/23 Unknown History insulin lispro 100 unit/mL 40 unit subcut .1/2 HR PRIOR TO 04/02/24 Unknown History subcutaneous half-unit pen MEAL (Humalog Alec Abrahan (U-100)) omeprazole 40 mg capsule,delayed 40 mg PO BID abdominal pain #44 04/02/24 Unknown Rx release caps semaglutide 1 mg/dose (4 mg/3 mL) 1 mg subcut QWEEK 04/02/24 05/04/24 History subcutaneous pen injector (Ozempic) ondansetron HCl 4 mg tablet 4 mg PO Q8H #20 tabs 04/07/24 Unknown Rx duloxetine 60 mg capsule,delayed 60 mg PO QHS #90 caps 05/13/24 Unknown Rx release pregabalin 200 mg capsule (Lyrica) 200 mg PO BID #180 caps 05/13/24 05/23/24 Rx Allergy/AdvReac Type Severity Reaction Status Date / Time gabapentin AdvReac Severe Other Verified 05/23/24 06:20 Family History Father Cancer lung/liver/pancreas Myocardial infarction Heart disease Grandfather Rectal cancer paternal Surgical History History of back surgery Hx of right mastectomy History of right breast biopsy (~11/2022) S/P ORIF (open reduction internal fixation) fracture Hx of arthroscopic knee surgery Hx of tubal ligation Social History Smoking Status: Former smoker alcohol intake: never Review of Systems (Anesthesia) ROS Narrative System reviewed and no additional complaints, except as documented.
--- NOTE | 2024-05-23 07:00 | EGD_PTH ---
PATIENT: SULEIMAN RAMSEY LOC: EN U#:[id number] AGE/SX: 78/F ROOM: RE05/23/[address]: Dr. Prem Sanchez DO : 1945 BED: DIS: 05/23/2024 SPEC #: [id number] RECD: 05/23/24 10:41 STATUS: MAYELIN DAVE #: [id number] PRIYANKA: 05/23/24 07:[address]: Prem Sanchez DEPT: SURGICAL PATHOLOGY RECD BY: Renay Yao ENTERED: 05/23/24 11:46 SP TYPE: EGD BIOPSY JORGE DR: Dr. Abhinav Bosch MD Tissues: A - Esophagus, NOS B - Duodenum, NOS Procedures: Special Stain Group I Surgery Specimen Level IV Alcian Blue/PAS (control) HEADER OPERATION: EGD and biopsy PRE-OP DIAGNOSIS: Gastric reflux, abdominal pain TISSUE SUBMITTED: A- Distal esophagus biopsy, B- Duodenum biopsy MICROSCOPIC DIAGNOSIS A. Distal esophagus, biopsy: Fragments of gastroesophageal mucosa with moderate chronic inflammation. Intestinal metaplasia (goblet cell metaplasia) not identified. See comment. B. Duodenum, biopsy: Fragments of duodenal mucosa, no pathologic diagnosis. MARY ELLEN. 05/26/2024 COMMENT A. Alcian blue/PAS stain with matched control is used in the evaluation of the specimen. MICROSCOPIC DESCRIPTION Slides are reviewed. GROSS DESCRIPTION A. Received in fixative is one container labeled with the patient's name and designated Distal esophagus biopsy. The specimen consists of multiple irregular fragments of light [place] soft tissue that in aggregate measure 1.0 x 0.3 x 0.1 cm. The specimen is totally submitted in one cassette. B. Received in fixative is one container labeled with the patient's name and designated Duodenum biopsy. The specimen consists of two irregular fragments of light [place] soft tissue that in aggregate measure 0.6 x 0.3 x 0.1 cm. The specimen is totally submitted in one cassette. MARY ELLEN. 05/23/2024 TC:3 CPT:[id number]
[2024-05-23 07:17] LABS: Bedside Glucose 176 mg/dL (74-106)
--- NOTE | 2024-05-23 07:25 | PCM.POSTANE2 ---
Anesthesia Postop Eval I Sum Postop Eval Completion status Anesthesia document: Postop Eval 1 completed: Yes Anesthesia Postop Eval I Summary Anesthesia Postop Eval I Summary: Anesthesia Postop Eval I: Assessment Summary Airway patent Yes 05/23/24 07:42 [email or web address] Spontaneous unlabored Yes 05/23/24 07:42 [email or web address] respirations Mental status Asleep 05/23/24 07:42 [email or web address] nausea No 05/23/24 07:42 [email or web address] Vomiting No 05/23/24 07:42 [email or web address] Anesthesia Postop Eval I: Fluid Summary Crystalloid volume administer 30 05/23/24 07:42 [email or web address] (ml) Colloids volume administered ( ml) Blood Product volume administered (ml) Total IV fluid infused 30 05/23/24 07:42 [email or web address] Anesthesia Postop Eval I: Summary Notes Anesthesia Complication No 05/23/24 07:42 [email or web address] Anesthesia Complication Comment: Post-operative progress note Anesthesia: Postop Eval II Evaluation Mental status: Awake Pain Level: 0 nausea: No Vomiting: No
--- NOTE | 2024-05-23 07:36 | OP.EGD_ITS ---
Patient Name: Terrie Bill Procedure Date: 05/23/2024 7:15 AM Date of : 1945 Age: 78 Procedure: Upper GI endoscopy Indications: Epigastric abdominal pain Providers: Prem Sanchez DO Referring MD: Abhinav Bosch Medicines: Monitored Anesthesia Care Patient Profile: This is a 78 year old female. Refer to note in patient chart for documentation of history and physical. Patient has symptoms of chronic abdominal distention, chronic epigastric abdominal pain and chronic dyspepsia. Complications: No immediate complications. Procedure: Pre-Anesthesia Assessment: - Prior to the procedure, a History and Physical was performed, and patient medications and allergies were reviewed. The patient is competent. The risks and benefits of the procedure and the sedation options and risks were discussed with the patient. All questions were answered and informed consent was obtained. Patient identification and proposed procedure were verified by the physician in the pre-procedure area. Mental Status Examination: alert and oriented. Airway Examination: normal oropharyngeal airway and neck mobility. Respiratory Examination: clear to auscultation. CV Examination: normal. Prophylactic Antibiotics: The patient does not require prophylactic antibiotics. Prior Anticoagulants: The patient has taken no anticoagulant or antiplatelet agents except for NSAID medication. ASA Grade Assessment: III - A patient with severe systemic disease. After reviewing the risks and benefits, the patient was deemed in satisfactory condition to undergo the procedure. The anesthesia plan was to use monitored anesthesia care (MAC). Immediately prior to administration of medications, the patient was re-assessed for adequacy to receive sedatives. The heart rate, respiratory rate, oxygen saturations, blood pressure, adequacy of pulmonary ventilation, and response to care were monitored throughout the procedure. The physical status of the patient was re-assessed after the procedure. After obtaining informed consent, the endoscope was passed under direct vision. Throughout the procedure, the patient's blood pressure, pulse, and oxygen saturations were monitored continuously. The gastroscope was introduced through the mouth, and advanced to the second part of duodenum. The upper GI endoscopy was accomplished without difficulty. The patient tolerated the procedure well. Scope In: 7:27:07 AM Scope Out: 7:30:28 AM Total Procedure Duration Time 0 hours 3 minutes 21 seconds Findings: LA Grade A (one or more mucosal breaks less than 5 mm, not extending between tops of 2 mucosal folds) esophagitis with no bleeding was found 38 to 40 cm from the incisors. Biopsies were taken with a cold forceps for histology. Verification of patient identification for the specimen was done. Estimated blood loss was minimal. Suspect gastroparesis due to absence of peristalsis, patient symptoms and retained gastric contents. Patchy mildly erythematous mucosa without active bleeding and with no stigmata of bleeding was found in the duodenal bulb and in the first portion of the duodenum. Biopsies were taken with a cold forceps for histology. Verification of patient identification for the specimen was done. Estimated blood loss was minimal. Impression: - LA Grade A chronic esophagitis with no bleeding. Biopsied. - Gastroparesis, secondary to diabetes mellitus type II. - Erythematous duodenopathy. Biopsied. Recommendation: - Discharge patient to home. - Resume previous diet. - Continue present medications. - Await pathology results. - Gastric emptying study Procedure Code(s): --- Professional --- 39952, Esophagogastroduodenoscopy, flexible, transoral; with biopsy, single or multiple CPT copyright 2021 [employer]. All rights reserved. The codes documented in this report are preliminary and upon deaf/hard of hearing specialist review may be revised to meet current compliance requirements. Prem Sanchez DO 05/23/2024 7:36:11 AM This report has been signed electronically. Number of Addenda: 0 Note Initiated On: 05/23/2024 7:15 AM
--- NOTE | 2024-05-23 07:36 | OP.CCLET_ITS ---
05/23/2024 Abhinav Bosch [address] [place] [address] Re : Upper GI endoscopy procedure for Terrie Bill Dear Dr. Bosch This procedure was performed on Thursday, May 23, 2024. My impressions and recommendations are as follows: Impressions : - LA Grade A chronic esophagitis with no bleeding. Biopsied. - Gastroparesis, secondary to diabetes mellitus type II. - Erythematous duodenopathy. Biopsied. Recommendations : - Discharge patient to home. - Resume previous diet. - Continue present medications. - Await pathology results. - Gastric emptying study My findings are described in the full procedure note, which is enclosed. If I can be of further assistance, please feel free to contact me at . Sincerely, Prem Sanchez, 05/23/2024 7:36:11 AM This report has been signed electronically.
--- NOTE | 2024-05-23 07:41 | PCM.POST.ANE ---
Anesthesia: Postop Eval I Current Vital Signs Temperature: 98.1 F Pulse Rate: 76 Blood Pressure: 86/47 Respiratory Rate: 16 Pulse Ox: 97 Oxygen Delivery Method: Room Air Assessment Airway patent: Yes Spontaneous unlabored respirations: Yes Mental status: Asleep nausea: No Vomiting: No Anesthesia Complication: No Fluid Hydration Crystalloid volume administer (ml): 30 Total IV fluid infused: 30 Progress Note Anesthesia document: Postop Eval 1 completed: Yes
[2024-05-23 08:12] LABS: Bedside Glucose 217 mg/dL (74-106)
== END 2024-05-23 08:15 | disposition home or self-care (01) ==
LOC: EN 06:03 → AC 06:05
PROVIDERS: PCP Family Medicine; Referring Provider Family Medicine; Visit Provider Internal Medicine Gastroenterology
PROC: 0DJ08ZZ Inspection of Upper Intestinal Tract, Via Natural or Artificial Opening Endoscopic (ICD-10-PCS; CPT 43235; principal; 2024-05-23 06:55)
DX: K21.00 Gastro-esophageal reflux disease with esophagitis, without bleeding (principal); Z79.4 Long term (current) use of insulin; E11.22 Type 2 diabetes mellitus with diabetic chronic kidney disease; E11.43 Type 2 diabetes mellitus with diabetic autonomic (poly)neuropathy; K31.84 Gastroparesis; K31.89 Other diseases of stomach and duodenum; K76.0 Fatty (change of) liver, not elsewhere classified; I44.0 Atrioventricular block, first degree; I44.7 Left bundle-branch block, unspecified; E07.9 Disorder of thyroid, unspecified; E78.00 Pure hypercholesterolemia, unspecified; M19.90 Unspecified osteoarthritis, unspecified site; I12.9 Hypertensive chronic kidney disease with stage 1 through stage 4 chronic kidney disease, or unspecified chronic kidney disease; N18.9 Chronic kidney disease, unspecified; G25.81 Restless legs syndrome; Z79.84 Long term (current) use of oral hypoglycemic drugs; Z79.899 Other long term (current) drug therapy; Z87.891 Personal history of nicotine dependence; Z79.890 Hormone replacement therapy
CPT/HCPCS: 43239; 82962; 88305; 88312; A4216; J2405

== ENCOUNTER → 2024-05-26 | Outpatient (CLI) | payer MEDICARE, BC, SELFPAY ==
[2024-05-26 15:45] LABS: Color, Urine Yellow (Yellow); Glucose, Dipstick Normal (Normal); Ketone-Dipstick Negative (Negative); Leukocyte Esterase-Dipstick 500 /ul (Negative); Nitrite-Dipstick Negative (Negative); Occult Blood-Urine 25 /ul (Negative); Protein-Dipstick 30 mg/dl (Negative); Specific Gravity, Urine 1.015 (1.002-1.030); Urine Bilirubin Dipstick Negative (Negative); Urine Clarity Cloudy (Clear); Urine Urobilinogen Normal (Normal)
== END | disposition home or self-care (01) ==
LOC: LABSPEC 13:33
PROVIDERS: PCP Family Medicine; Referring Provider Family Medicine; Visit Provider Family Medicine
DX: N39.0 Urinary tract infection, site not specified (principal)
CPT/HCPCS: 81002; 87086; 87088; 87186

== ENCOUNTER 2024-06-03 12:07 | Day surgery (SDC) | payer MEDICARE, BC, SELFPAY ==
--- NOTE | 2024-05-30 16:04 | PAT.ANE_ITS ---
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 When Was Last Pacemaker Check QUESTION #4 FULL TEXT: You/Your Family Experience fever (hyperthermia) with Anesthesia Last Oral Intake Last Oral intake: Last Oral Intake NPO since Meds taken in AM with sips of water? Meds patient instructed to take am of surgery PONV PONV - supervising law enforcement analyst: PONV - supervising law enforcement analyst Female Yes 05/30/24 10:44 HX of Motion Sickness No 05/30/24 10:44 HX of N/V After Surgery No 05/30/24 10:44 Non-Smoker Yes 05/30/24 10:44 Duration of Surgery greater No 05/30/24 10:44 than 60 minutes Number of Risk Factors 2 05/30/24 10:44 PONV Score Moderate Risk 05/30/24 10:44 Height & Weight Height & Weight: Anesthesia: Height & Weight Height 5 ft 1 in 03/30/24 13:34 Respiratory Assessment Respiratory Assessment - supervising law enforcement analyst: Respiratory Tract Infection Hx - supervising law enforcement analyst Hx Respiratory Tract Infection No 05/30/24 10:44 STOP Sleep Apnea STOP Sleep Apnea - supervising law enforcement analyst: STOP Sleep Apnea - supervising law enforcement analyst Hx Hypertension Yes: CONTROLLED ON MED 05/30/24 10:44 Hx Sleep Apnea No 05/30/24 10:44 CPAP No 05/30/24 10:44 BIPAP No 05/30/24 10:44 Do you snore loudly (louder Yes 05/30/24 10:44 than talking or can be heard Do you often feel tired/ Yes 05/30/24 10:44 fatigued/ sleepy during daytime? Has anyone observed you stop Yes 05/30/24 10:44 breathing during sleep? STOP Results Positive 05/30/24 10:44 QUESTION #5 FULL TEXT : Do you snore loudly (louder than talking or can be heard through closed doors)? 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 Specify any problems Hx of Preganancy in last 3 No 05/30/24 10:44 Months Nurse Filling Out Transfusion MGRIFFITH 05/30/24 10:44 & Questions: Date: 05/30/24 05/30/24 10:44 Time: 10:45 05/30/24 10:44 Patient unable to answer at this time (ie. confused, unrespo /Reproduction History /Reproductive History - supervising law enforcement analyst: /Reproductive Hx- supervising law enforcement analyst Hx Now Gestational Age (in weeks): EDC: Hx Hx Para Hx Section SAB No 05/30/24 10:44 PFSH Medical History Cancer Thyroid disease Diabetes Leg cramps History of neuropathy History of recent fall Fatty liver Restless legs Dietary restriction History of hiatal hernia History of ulceration Abdominal pain Post-menopausal Wears hearing aid Wears glasses Insulin dependent diabetes mellitus High cholesterol Back pain Gastric reflux Former smoker History of echocardiogram History of stress test Hx of corn of toe Hx of dermabrasion Bloating Hypergammaglobulinemia CKD (chronic kidney disease) Hyperlipidemia Cataracts, bilateral Increased urinary frequency Back pain Difficulty balancing Arthritis Thyroid disease Hypertension Home Medications ?Medication ?Instructions ?Recorded ?Last Taken ?Type levothyroxine 150 mcg tablet 150 mcg PO DAILY 12/03/14 05/23/24 History blood sugar diagnostic #100 ea 01/24/19 03/15/22 History blood-glucose meter #1 ea 01/24/19 03/15/22 History metformin 500 mg tablet,extended 2,000 mg PO QHS #360 tabs 01/24/19 03/15/22 History release 24 hr insulin glargine U-300 conc 300 70 unit subcut 1730 02/14/21 05/23/24 History unit/mL (1.5 mL) subcutaneous pen (Toujeo SoloStar U-300 Insulin) ibuprofen 400 mg tablet 400 mg PO Q6H PRN Pain 03/08/22 03/15/22 History olmesartan 20 mg tablet (Benicar) 40 mg PO DAILY 11/15/22 05/23/24 History cholecalciferol (vitamin D3) 50 50 mcg PO DAILY 11/27/22 Unknown History mcg (2,000 unit) capsule diphenhydramine HCl 25 mg capsule 25 mg PO QHS PRN sleep 11/27/22 Unknown History (Benadryl) magnesium oxide 1,600 mg PO DAILY 11/27/22 Unknown History rosuvastatin 20 mg tablet 20 mg PO DAILY 11/27/22 Unknown History Bilateral wrist splints #2 ea 12/21/22 Unknown Rx anastrozole 1 mg tablet 1 mg PO DAILY 10/05/23 Unknown History insulin lispro 100 unit/mL 40 unit subcut .1/2 HR PRIOR TO 04/02/24 Unknown History subcutaneous half-unit pen MEAL (Humalog Alec KwikPen (U-100)) omeprazole 40 mg capsule,delayed 40 mg PO BID abdominal pain #44 04/02/24 Unknown Rx release caps duloxetine 60 mg capsule,delayed 60 mg PO QHS #90 caps 05/13/24 Unknown Rx release pregabalin 200 mg capsule (Lyrica) 200 mg PO BID #180 caps 05/13/24 05/23/24 Rx ondansetron HCl 4 mg tablet 4 mg PO Q8H PRN nausea and vomiting 05/30/24 Unknown History Allergy/AdvReac Type Severity Reaction Status Date / Time gabapentin AdvReac Severe Other Verified 05/30/24 10:38 Family History Father Cancer lung/liver/pancreas Myocardial infarction Heart disease Grandfather Rectal cancer paternal Surgical History (Updated 05/30/24 @ 10:49 by Lisa Thomas) History of esophagogastroduodenoscopy (EGD) History of back surgery Hx of right mastectomy History of right breast biopsy (~11/2022) S/P ORIF (open reduction internal fixation) fracture Hx of arthroscopic knee surgery Hx of tubal ligation Social History Smoking Status: Former smoker alcohol intake: never Audit: Pertinent Findings Pertinent Findings EKG Perinent findings: April 24, 2024. Sinus rhythm with first-degree AV block. Left bundle branch block. Echo (EF%) pertinent findings: May 21, 2020. Ejection fraction 55%. No aortic stenosis noted. Pulmonary function results/spirometer pertinent findings: Chest x-ray. 04/24/2024. Mild atelectasis or inflammation of the right mid and left lower lung. Recommendation Anesthesia Recommendation Anesthesia recommendation: OPTIMIZED for anesthesia
[2024-06-03] VITALS (10 sets, daily range): BP systolic 75–104; BP diastolic 44–73; PULSE 63–79; RESP 14–16; TEMP 36.3–36.6; O2SAT 93–100; BMI 30.4
--- NOTE | 2024-06-03 12:46 | HP.PCM_ITS ---
HPI - General General Date of Admission: 06/03/24 Date of Service: 06/03/24 Chief Complaint: persistent abdominal pain HPI Narrative SULEIMAN RAMSEY, is here for a colonoscopy regarding continued abdominal pain and diarrhea.. [facility] established 02.14.21 EGD 01.12.22; - LA Grade A reflux esophagitis. Biopsied. - Non-obstructing Schatzki ring. - Non-obstructing non-bleeding gastric ulcer with no stigmata of bleeding. Biopsied. OV 04.02.24 w/ epigastric pain, nausea and 5lbs weight loss for one week. Hx of H. pylori infection. Started ozempic prior to symptom start. Increased omeprazole to 40 mg BID. EGD scheduled [facility] ED 04.24.24 visit after presenting to PCP with chest pain. Work up negative for cardiac etiology. GI cocktail resolved symptoms Discharged. OV 05.02.24 Here today for f/u after ED visit. Pt daughter is here with her today and helps provide hx. Her epigastric pain is better while on twice a day PPI but not completely resolved. She continues to have pain with eating. She has only been able to eat soups and nutritional drinks. She is now also having diarrhea after she eats any food.PCP recently ordered GES. Home Medications ?Medication ?Instructions ?Recorded ?Last Taken ?Type levothyroxine 150 mcg tablet 150 mcg PO DAILY 12/03/14 05/23/24 History blood sugar diagnostic #100 ea 01/24/19 03/15/22 History blood-glucose meter #1 ea 01/24/19 03/15/22 History metformin 500 mg tablet,extended 2,000 mg PO QHS #360 tabs 01/24/19 03/15/22 History release 24 hr insulin glargine U-300 conc 300 70 unit subcut 1730 02/14/21 05/23/24 History unit/mL (1.5 mL) subcutaneous pen (Toukhushio SoloStar U-300 Insulin) ibuprofen 400 mg tablet 400 mg PO Q6H PRN Pain 03/08/22 03/15/22 History olmesartan 20 mg tablet (Benicar) 40 mg PO DAILY 11/15/22 05/23/24 History cholecalciferol (vitamin D3) 50 50 mcg PO DAILY 11/27/22 Unknown History mcg (2,000 unit) capsule diphenhydramine HCl 25 mg capsule 25 mg PO QHS PRN sleep 11/27/22 Unknown History (Benadryl) magnesium oxide 1,600 mg PO DAILY 11/27/22 Unknown History rosuvastatin 20 mg tablet 20 mg PO DAILY 11/27/22 Unknown History Bilateral wrist splints #2 ea 12/21/22 Unknown Rx anastrozole 1 mg tablet 1 mg PO DAILY 10/05/23 Unknown History insulin lispro 100 unit/mL 40 unit subcut .1/2 HR PRIOR TO 04/02/24 Unknown History subcutaneous half-unit pen MEAL (Humalog Alec KwikPen (U-100)) omeprazole 40 mg capsule,delayed 40 mg PO BID abdominal pain #44 04/02/24 Unknown Rx release caps semaglutide 1 mg/dose (4 mg/3 mL) 1 mg subcut QWEEK 04/02/24 05/04/24 History subcutaneous pen injector (Ozempic) ondansetron HCl 4 mg tablet 4 mg PO Q8H #20 tabs 04/07/24 Unknown Rx duloxetine 60 mg capsule,delayed 60 mg PO QHS #90 caps 05/13/24 Unknown Rx release pregabalin 200 mg capsule (Lyrica) 200 mg PO BID #180 caps 05/13/24 05/23/24 Rx Allergy/AdvReac Type Severity Reaction Status Date / Time gabapentin AdvReac Severe Other Verified 05/23/24 06:20 [facility] Medical History Cancer Thyroid disease Diabetes Leg cramps History of neuropathy History of recent fall Fatty liver Restless legs Dietary restriction History of hiatal hernia History of ulceration Abdominal pain Post-menopausal Wears hearing aid Wears glasses Insulin dependent diabetes mellitus High cholesterol Back pain Gastric reflux Former smoker History of echocardiogram History of stress test Hx of corn of toe Hx of dermabrasion Bloating Hypergammaglobulinemia CKD (chronic kidney disease) Hyperlipidemia Cataracts, bilateral Increased urinary frequency Back pain Difficulty balancing Arthritis Thyroid disease Hypertension Home Medications ?Medication ?Instructions ?Recorded ?Last Taken ?Type levothyroxine 150 mcg tablet 150 mcg PO DAILY 12/03/14 05/23/24 History blood sugar diagnostic #100 ea 01/24/19 03/15/22 History blood-glucose meter #1 ea 01/24/19 03/15/22 History metformin 500 mg tablet,extended 2,000 mg PO QHS #360 tabs 01/24/19 03/15/22 History release 24 hr insulin glargine U-300 conc 300 70 unit subcut 1730 02/14/21 05/23/24 History unit/mL (1.5 mL) subcutaneous pen (Toujeo SoloStar U-300 Insulin) ibuprofen 400 mg tablet 400 mg PO Q6H PRN Pain 03/08/22 03/15/22 History olmesartan 20 mg tablet (Benicar) 40 mg PO DAILY 11/15/22 05/23/24 History cholecalciferol (vitamin D3) 50 50 mcg PO DAILY 11/27/22 Unknown History mcg (2,000 unit) capsule diphenhydramine HCl 25 mg capsule 25 mg PO QHS PRN sleep 11/27/22 Unknown History (Benadryl) magnesium oxide 1,600 mg PO DAILY 11/27/22 Unknown History rosuvastatin 20 mg tablet 20 mg PO DAILY 11/27/22 Unknown History Bilateral wrist splints #2 ea 12/21/22 Unknown Rx anastrozole 1 mg tablet 1 mg PO DAILY 10/05/23 Unknown History insulin lispro 100 unit/mL 40 unit subcut .1/2 HR PRIOR TO 04/02/24 Unknown History subcutaneous half-unit pen MEAL (Humalog Alec SayikPen (U-100)) omeprazole 40 mg capsule,delayed 40 mg PO BID abdominal pain #44 04/02/24 Unknown Rx release caps duloxetine 60 mg capsule,delayed 60 mg PO QHS #90 caps 05/13/24 Unknown Rx release pregabalin 200 mg capsule (Lyrica) 200 mg PO BID #180 caps 05/13/24 05/23/24 Rx ondansetron HCl 4 mg tablet 4 mg PO Q8H PRN nausea and vomiting 05/30/24 Unknown History Allergy/AdvReac Type Severity Reaction Status Date / Time gabapentin AdvReac Severe Other Verified 06/03/24 12:48 Family History Father Cancer lung/liver/pancreas Myocardial infarction Heart disease Grandfather Rectal cancer paternal Surgical History (Updated 05/30/24 @ 10:49 by Lisa Thomas) History of esophagogastroduodenoscopy (EGD) History of back surgery Hx of right mastectomy History of right breast biopsy (~11/2022) S/P ORIF (open reduction internal fixation) fracture Hx of arthroscopic knee surgery Hx of tubal ligation Social History Smoking Status: Former smoker alcohol intake: never ROS Constitutional Constitutional: Denies fatigue, fever(s), poor appetite, weight gain or weight loss Gastrointestinal Gastrointestinal: Denies belching, bloating, change in bowel habits, change in stool character, chewing difficulty, coffee ground emesis, constipation, cramping, diarrhea, dyspepsia, dysphagia, early satiety, excessive flatus, fecal incontinence, heartburn, hematemesis, hematochezia, hemorrhoids, loose stools, melena, nausea, odynophagia, rectal bleeding, tenesmus, vomiting or weight changes Physical Exam Const alert, oriented x3, no apparent distress and healthy appearing General Appearance: cooperative GI normal to inspection, nondistended, normoactive bowel sounds, soft to palpation, non-tender and non-distended Percussion: normal to percussion Rectal Exam: deferred Assessment & Plan Assessment/Plan (1) Diarrhea: PLAN: Home Medications ?Medication ?Instructions ?Recorded ?Last Taken ?Type levothyroxine 150 mcg tablet 150 mcg PO DAILY 12/03/14 05/23/24 History blood sugar diagnostic #100 ea 01/24/19 03/15/22 History blood-glucose meter #1 ea 01/24/19 03/15/22 History metformin 500 mg tablet,extended 2,000 mg PO QHS #360 tabs 01/24/19 03/15/22 History release 24 hr insulin glargine U-300 conc 300 70 unit subcut 1730 02/14/21 05/23/24 History unit/mL (1.5 mL) subcutaneous pen (Toujeo SoloStar U-300 Insulin) ibuprofen 400 mg tablet 400 mg PO Q6H PRN Pain 03/08/22 03/15/22 History olmesartan 20 mg tablet (Benicar) 40 mg PO DAILY 11/15/22 05/23/24 History cholecalciferol (vitamin D3) 50 50 mcg PO DAILY 11/27/22 Unknown History mcg (2,000 unit) capsule diphenhydramine HCl 25 mg capsule 25 mg PO QHS PRN sleep 11/27/22 Unknown History (Benadryl) magnesium oxide 1,600 mg PO DAILY 11/27/22 Unknown History rosuvastatin 20 mg tablet 20 mg PO DAILY 11/27/22 Unknown History Bilateral wrist splints #2 ea 12/21/22 Unknown Rx anastrozole 1 mg tablet 1 mg PO DAILY 10/05/23 Unknown History insulin lispro 100 unit/mL 40 unit subcut .1/2 HR PRIOR TO 04/02/24 Unknown History subcutaneous half-unit pen MEAL (Humalog Alec KwikPen (U-100)) omeprazole 40 mg capsule,delayed 40 mg PO BID abdominal pain #44 04/02/24 Unknown Rx release caps semaglutide 1 mg/dose (4 mg/3 mL) 1 mg subcut QWEEK 04/02/24 05/04/24 History subcutaneous pen injector (Ozempic) ondansetron HCl 4 mg tablet 4 mg PO Q8H #20 tabs 04/07/24 Unknown Rx duloxetine 60 mg capsule,delayed 60 mg PO QHS #90 caps 05/13/24 Unknown Rx release pregabalin 200 mg capsule (Lyrica) 200 mg PO BID #180 caps 05/13/24 05/23/24 Rx Allergy/AdvReac Type Severity Reaction Status Date / Time gabapentin AdvReac Severe Other Verified 05/23/24 06:20 Family History 05/23/2505:22 05/23/2505:22 Temperature 97.8 F Temperature Source Temporal Pulse Rate 77 Respiratory Rate 16 Respiratory Pattern Normal Blood Pressure 139/80 H Blood Pressure Mean 99 Blood Pressure Source Monitor Blood Pressure Position Semi-Fowlers Blood Pressure Location Right Arm Pulse Ox 100 Oxygen Delivery Method Room Air Weight Weight: 163 lb 2.273 oz Body Mass Index (BMI) 30.8 : PLAN: Assessment and Plan Assessment and Plan (1) Epigastric abdominal pain: Status: Inactive Plan: This is a 78 yo female pt here today for hospital f/u. Pt has been seeing [facility] for epigastric pain. Omeprazole was increased to twice a day and this has helped. She will continue this for now. She has a hx if H. pylori infection but testing was negative. D. Since pt is having diarrhea she willundergo colonoscopy. -Continue omeprazole 40 mg BID Colonoscopy -PCP ordered GES -f/u after procedure
--- NOTE | 2024-06-03 12:57 | PRE.ANES_ITS ---
ASA Classification* ASA Classification ASA Classification: 3 Assessment & Plan Anesthesia* Anesthesia Assessment Anesthesia Assessment: Discussed sedation and/or anesthesia options, risks, benefits, and alternatives with patient/parents/legal guardian/POA. Questions invited. The patient/parents/legal guardian/POA seems to understand and agrees to proceed with anesthesia plan. Reviewed the physical assessment, medical history, allergy history and patient home medications list prior to surgery/procedure/anesthetic and documented any changes. Performed airway and anesthesia risk assessments. Anesthesia Type Anesthesia Type: MAC History Source History Obtained from:: Patient and Chart Anesthesia Focused Assessment* Temperature: 97.8 F Pulse Rate: 79 Blood Pressure: 103/73 Respiratory Rate: 16 Pulse Ox: 100 Oxygen Delivery Method: Room Air Airway Assessment Mouth opens: >3 cm Mallampati Score: II Teeth Condition: Caps/Crowns (Patient has 2 caps. They are tight.) and Missing (1 missing left upper molar) Neck Range of motion (ROM): Full ROM Focused Labs Anesthesia Preop lab: CBC WBC 13.1 K/mm3 (4.4-11.0) H 04/24/24 10:15 RBC 4.57 M/mm3 (4.2-5.4) 04/24/24 10:15 Hgb 13.5 g/dL (12.0-15.0) 04/24/24 10:15 Hct 40.8 % (37-47) 04/24/24 10:15 Plt Count 364 K/mm3 (150-450) 04/24/24 10:15 CHEMISTRY Potassium 4.0 mmol/L (3.5-5.1) 04/24/24 10:15 Sodium 134 mmol/L (136-145) L 04/24/24 10:15 Magnesium 1.3 mg/dL (1.6-2.6) L 03/30/24 13:48 Phosphorus 2.7 mg/dL (2.5-4.9) 10/30/22 08:36 BUN 17 mg/dL (7-18) 04/24/24 10:15 Creatinine 1.11 mg/dL (0.55-1.02) H 04/24/24 10:15 Glucose 129 mg/dL (74-106) H 04/24/24 10:15 POC Glucose 217 mg/dL (74-106) H 05/23/24 07:53 TSH 5.660 uIU/mL (0.358-3.740) H 02/21/24 10:31 COAG Pre-Assessment Diagnosis/Proposed Procedure Planned Operative Procedure(s): COLONOSCOPY Anesthesia History Anesthesia History - therapeutic strategy lead: Anesthesia History - therapeutic strategy lead Hx Hospitalization No 05/30/24 10:44 Any Problems With Anesthesia No 05/30/24 10:44 Cholinesterase deficiency No 05/30/24 10:44 You/Your Family Experience No 05/30/24 10:44 fever (hyperthermia) with Relationship Recent Exposure to Contagious No 06/03/24 12:50 Disease Does patient have nerve No 05/30/24 10:44 stimulator Patient instructed to have device shut off --Does patient have Pacemaker No 06/03/24 12:50 or ICD? When Was Last Pacemaker Check QUESTION #4 FULL TEXT: You/Your Family Experience fever (hyperthermia) with Anesthesia Last Oral Intake Last Oral intake: Last Oral Intake NPO since 08:00 06/03/24 12:50 Meds taken in AM with sips of Yes 06/03/24 12:50 water? Meds patient instructed to SEE MED REC 06/03/24 12:50 take am of surgery Any additional information?: Yes NPO since: 09:00 (Patient finished prep at 9 AM.) Meds taken in AM with sips of water?: Yes PONV PONV - therapeutic strategy lead: PONV - therapeutic strategy lead Female Yes 05/30/24 10:44 HX of Motion Sickness No 05/30/24 10:44 HX of N/V After Surgery No 05/30/24 10:44 Non-Smoker Yes 05/30/24 10:44 Duration of Surgery greater No 05/30/24 10:44 than 60 minutes Number of Risk Factors 2 05/30/24 10:44 PONV Score Moderate Risk 05/30/24 10:44 Height & Weight Height & Weight: Anesthesia: Height & Weight Height 5 ft 1 in 06/03/24 12:50 Weight: 73 kg 06/03/24 12:50 Body Mass Index (BMI) 30.4 06/03/24 12:50 Respiratory Assessment Respiratory Assessment - therapeutic strategy lead: Respiratory Tract Infection Hx - therapeutic strategy lead Hx Respiratory Tract Infection No 05/30/24 10:44 STOP Sleep Apnea STOP Sleep Apnea - therapeutic strategy lead: STOP Sleep Apnea - therapeutic strategy lead Hx Hypertension Yes: CONTROLLED ON MED 05/30/24 10:44 Hx Sleep Apnea No 05/30/24 10:44 CPAP No 05/30/24 10:44 BIPAP No 05/30/24 10:44 Do you snore loudly (louder Yes 05/30/24 10:44 than talking or can be heard Do you often feel tired/ Yes 05/30/24 10:44 fatigued/ sleepy during daytime? Has anyone observed you stop Yes 05/30/24 10:44 breathing during sleep? STOP Results Positive 05/30/24 10:44 QUESTION #5 FULL TEXT : Do you snore loudly (louder than talking or can be heard through closed doors)? Tobacco Use History Tobacco Use History - therapeutic strategy lead: Tobacco Use History - therapeutic strategy lead Tobacco Use Smoking Status Former smoker 05/30/24 10:44 Hx Tobacco Use No 05/30/24 10:44 Years Smoking Packs Smoked per Day Smoking Cessation Date was No - quit smoking greater 05/30/24 10:44 within the last 15 years than 15 years ago Hx Smoking Cessation Date 10/13/79 05/30/24 10:44 Hx Smoking Cessation Counseling Hematologic Medial History Hematologic Hx - therapeutic strategy lead: Hematologic Medical Hx - ornament stitcher Hx of Blood Transfusion No 05/30/24 10:44 Hx of Transfusion in last 3 No 05/30/24 10:44 Months Date of Last Transfusion (if within last 3 months) Ever experience any problems No 05/30/24 10:44 with transfusion(s)? Specify any problems Hx of Preganancy in last 3 No 05/30/24 10:44 Months Nurse Filling Out Transfusion MGRIFFITH 05/30/24 10:44 & Questions: Date: 05/30/24 05/30/24 10:44 Time: 10:45 05/30/24 10:44 Patient unable to answer at this time (ie. confused, unrespo /Reproduction History /Reproductive History - therapeutic strategy lead: /Reproductive Hx- therapeutic strategy lead Hx Now Gestational Age (in weeks): EDC: Hx Hx Para Hx Section SAB No 05/30/24 10:44 PFSH Medical History Cancer Thyroid disease Diabetes Leg cramps History of neuropathy History of recent fall Fatty liver Restless legs Dietary restriction History of hiatal hernia History of ulceration Abdominal pain Post-menopausal Wears hearing aid Wears glasses Insulin dependent diabetes mellitus High cholesterol Back pain Gastric reflux Former smoker History of echocardiogram History of stress test Hx of corn of toe Hx of dermabrasion Bloating Hypergammaglobulinemia CKD (chronic kidney disease) Hyperlipidemia Cataracts, bilateral Increased urinary frequency Back pain Difficulty balancing Arthritis Thyroid disease Hypertension Home Medications ?Medication ?Instructions ?Recorded ?Last Taken ?Type levothyroxine 150 mcg tablet 150 mcg PO DAILY 12/03/14 06/03/24 08:00 History blood sugar diagnostic #100 ea 01/24/19 03/15/22 History blood-glucose meter #1 ea 01/24/19 03/15/22 History metformin 500 mg tablet,extended 2,000 mg PO QHS #360 tabs 01/24/19 03/15/22 History release 24 hr insulin glargine U-300 conc 300 70 unit subcut 1730 02/14/21 05/23/24 History unit/mL (1.5 mL) subcutaneous pen (Toujeo SoloStar U-300 Insulin) ibuprofen 400 mg tablet 400 mg PO Q6H PRN Pain 03/08/22 03/15/22 History olmesartan 20 mg tablet (Benicar) 40 mg PO DAILY 11/15/22 06/03/24 08:00 History cholecalciferol (vitamin D3) 50 50 mcg PO DAILY 11/27/22 Unknown History mcg (2,000 unit) capsule diphenhydramine HCl 25 mg capsule 25 mg PO QHS PRN sleep 11/27/22 Unknown History (Benadryl) magnesium oxide 1,600 mg PO DAILY 11/27/22 Unknown History rosuvastatin 20 mg tablet 20 mg PO DAILY 11/27/22 Unknown History Bilateral wrist splints #2 ea 12/21/22 Unknown Rx anastrozole 1 mg tablet 1 mg PO DAILY 10/05/23 Unknown History insulin lispro 100 unit/mL 40 unit subcut .1/2 HR PRIOR TO 04/02/24 Unknown History subcutaneous half-unit pen MEAL (Humalog Alec Abrahan (U-100)) omeprazole 40 mg capsule,delayed 40 mg PO BID abdominal pain #44 04/02/24 Unknown Rx release caps duloxetine 60 mg capsule,delayed 60 mg PO QHS #90 caps 05/13/24 Unknown Rx release pregabalin 200 mg capsule (Lyrica) 200 mg PO BID #180 caps 05/13/24 06/03/24 08:00 Rx ondansetron HCl 4 mg tablet 4 mg PO Q8H PRN nausea and vomiting 05/30/24 Unknown History Allergy/AdvReac Type Severity Reaction Status Date / Time gabapentin AdvReac Severe Other Verified 06/03/24 12:48 Family History Father Cancer lung/liver/pancreas Myocardial infarction Heart disease Grandfather Rectal cancer paternal Surgical History (Updated 05/30/24 @ 10:49 by Lisa Thomas) History of esophagogastroduodenoscopy (EGD) History of back surgery Hx of right mastectomy History of right breast biopsy (~11/2022) S/P ORIF (open reduction internal fixation) fracture Hx of arthroscopic knee surgery Hx of tubal ligation Social History Smoking Status: Former smoker alcohol intake: never Review of Systems (Anesthesia) ROS Narrative System reviewed and no additional complaints, except as documented.
--- NOTE | 2024-06-03 13:00 | COLBX_PTH ---
PATIENT: SULEIMAN RAMSEY LOC: EN U#:[id number] AGE/SX: 78/F ROOM: RE06/03/[address]: Dr. Prem Sanchez DO : 1945 BED: DIS: 06/03/2024 SPEC #: [id number] RECD: 06/03/24 15:12 STATUS: MAYELIN RECarrillo #: [id number] PRIYANKA: 06/03/24 13:[address]: Prem Sanchez DEPT: SURGICAL PATHOLOGY RECD BY: Renay Yao ENTERED: 06/04/24 08:46 SP TYPE: COLON BX OT DR: Dr. Abhinav Bosch MD Tissues: A - Ileum, NOS B - COLON BIOPSY Procedures: Surgery Specimen Level IV HEADER OPERATION: Colonoscopy with biopsy PRE-OP DIAGNOSIS: Diarrhea TISSUE SUBMITTED: A- Terminal ileum biopsy, B- Random colon biopsy MICROSCOPIC DIAGNOSIS A. Terminal ileum, biopsy: Fragments of small intestinal mucosa, no pathologic diagnosis. B. Colon, random biopsy: Fragments of colonic mucosa, no pathologic diagnosis. SJ.mr 06/05/2024 MICROSCOPIC DESCRIPTION Slides are reviewed. GROSS DESCRIPTION A. Received in fixative is one container labeled with the patient's name and designated Terminal ileum biopsy. The specimen consists of two irregular fragments of light [place] soft tissue that in aggregate measure 1.1 x 0.3 x 0.2 cm. The specimen is totally submitted in one cassette. B. Received in fixative is one container labeled with the patient's name and designated Random colon biopsy. The specimen consists of multiple irregular fragments of light [place] soft tissue that in aggregate measure 2.2 x 0.3 x 0.2 cm. The specimen is totally submitted in one cassette. DANIA.mr 06/04/2024 TC:4 [facility]:[id number]
--- NOTE | 2024-06-03 13:36 | OP.COLON_ITS ---
Patient Name: Terrie Bill Procedure Date: 06/03/2024 12:52 PM Date of : 1945 Age: 78 Procedure: Colonoscopy Indications: Abdominal pain in the left lower quadrant, Lower abdominal pain, Chronic diarrhea, Clinically significant diarrhea of unexplained origin Providers: Prem Sanchez DO Referring MD: Prem Sanchez DO Medicines: Monitored Anesthesia Care Patient Profile: This is a 78 year old female. Refer to note in patient chart for documentation of history and physical. Last Colonoscopy: several years ago. Complications: No immediate complications. Procedure: Pre-Anesthesia Assessment: - Prior to the procedure, a History and Physical was performed, and patient medications and allergies were reviewed. The patient is competent. The risks and benefits of the procedure and the sedation options and risks were discussed with the patient. All questions were answered and informed consent was obtained. Patient identification and proposed procedure were verified by the physician in the pre-procedure area. Mental Status Examination: alert and oriented. Airway Examination: normal oropharyngeal airway and neck mobility. Respiratory Examination: clear to auscultation. CV Examination: normal. Prophylactic Antibiotics: The patient does not require prophylactic antibiotics. Prior Anticoagulants: The patient has taken no anticoagulant or antiplatelet agents except for NSAID medication. ASA Grade Assessment: III - A patient with severe systemic disease. After reviewing the risks and benefits, the patient was deemed in satisfactory condition to undergo the procedure. The anesthesia plan was to use monitored anesthesia care (MAC). Immediately prior to administration of medications, the patient was re-assessed for adequacy to receive sedatives. The heart rate, respiratory rate, oxygen saturations, blood pressure, adequacy of pulmonary ventilation, and response to care were monitored throughout the procedure. The physical status of the patient was re-assessed after the procedure. After I obtained informed consent, the scope was passed under direct vision. Throughout the procedure, the patient's blood pressure, pulse, and oxygen saturations were monitored continuously. The Colonoscope was introduced through the anus and advanced to the terminal ileum. The colonoscopy was performed without difficulty. The patient tolerated the procedure fairly well. The quality of the bowel preparation was adequate. The terminal ileum, ileocecal valve, appendiceal orifice, and rectum were photographed. Scope In: 1:10:32 PM Scope Withdrawal Time 0 hours 10 minutes 48 seconds Scope Out: 1:25:52 PM Total Procedure Duration Time 0 hours 15 minutes 20 seconds Findings: The perianal and digital rectal examinations were normal. Multiple small and large-mouthed diverticula were found in the recto-sigmoid colon, sigmoid colon and descending colon. An area of mildly congested mucosa was found in the rectum, in the recto-sigmoid colon, in the sigmoid colon, in the descending colon, at the splenic flexure and in the ascending colon. Biopsies were taken with a cold forceps for histology. Verification of patient identification for the specimen was done. Estimated blood loss was minimal. The terminal ileum appeared normal. Biopsies were taken with a cold forceps for histology. Verification of patient identification for the specimen was done. Estimated blood loss was minimal. Impression: - Diverticulosis in the recto-sigmoid colon, in the sigmoid colon and in the descending colon. - Congested mucosa in the rectum, in the recto-sigmoid colon, in the sigmoid colon, in the descending colon, at the splenic flexure and in the ascending colon. Biopsied. - The examined portion of the ileum was normal. Biopsied. Recommendation: - Discharge patient to home. - Resume previous diet. - Continue present medications. - Await pathology results. - Repeat colonoscopy is recommended for surveillance. The colonoscopy date will be determined after pathology results from today's exam become available for review. Procedure Code(s): --- Professional --- 74796, Colonoscopy, flexible; with biopsy, single or multiple CPT copyright 2021 [employer]. All rights reserved. The codes documented in this report are preliminary and upon administrative services director review may be revised to meet current compliance requirements. Prem Sanchez DO 06/03/2024 1:36:18 PM This report has been signed electronically. Number of Addenda: 0 Note Initiated On: 06/03/2024 12:52 PM
--- NOTE | 2024-06-03 13:36 | OP.CCLET_ITS ---
06/03/2024 Bee Roldan Md Re : Colonoscopy procedure for Terrie Smith Yuli This procedure was performed on Monday, June 03, 2024. My impressions and recommendations are as follows: Impressions : - Diverticulosis in the recto-sigmoid colon, in the sigmoid colon and in the descending colon. - Congested mucosa in the rectum, in the recto-sigmoid colon, in the sigmoid colon, in the descending colon, at the splenic flexure and in the ascending colon. Biopsied. - The examined portion of the ileum was normal. Biopsied. Recommendations : - Discharge patient to home. - Resume previous diet. - Continue present medications. - Await pathology results. - Repeat colonoscopy is recommended for surveillance. The colonoscopy date will be determined after pathology results from today's exam become available for review. My findings are described in the full procedure note, which is enclosed. If I can be of further assistance, please feel free to contact me at . Sincerely, Prem Sanchez, 06/03/2024 1:36:18 PM This report has been signed electronically.
--- NOTE | 2024-06-03 13:37 | PCM.POST.ANE ---
Anesthesia: Postop Eval I Current Vital Signs Temperature: 97.3 F Pulse Rate: 68 Blood Pressure: 77/44 Respiratory Rate: 16 Pulse Ox: 95 Oxygen Delivery Method: Room Air Assessment Airway patent: Yes Spontaneous unlabored respirations: Yes Mental status: Asleep nausea: No Vomiting: No Anesthesia Complication: No Fluid Hydration Crystalloid volume administer (ml): 40 Total IV fluid infused: 40 Progress Note Anesthesia document: Postop Eval 1 completed: Yes
--- NOTE | 2024-06-03 19:41 | PCM.POSTANE2 ---
Anesthesia Postop Eval I Sum Postop Eval Completion status Anesthesia document: Postop Eval 1 completed: Yes Anesthesia Postop Eval I Summary Anesthesia Postop Eval I Summary: Anesthesia Postop Eval I: Assessment Summary Airway patent Yes 06/03/24 13:38 [email or web address] Spontaneous unlabored Yes 06/03/24 13:38 [email or web address] respirations Mental status Asleep 06/03/24 13:38 [email or web address] nausea No 06/03/24 13:38 [email or web address] Vomiting No 06/03/24 13:38 [email or web address] Anesthesia Postop Eval I: Fluid Summary Crystalloid volume administer 40 06/03/24 13:38 [email or web address] (ml) Colloids volume administered ( ml) Blood Product volume administered (ml) Total IV fluid infused 40 06/03/24 13:38 [email or web address] Anesthesia Postop Eval I: Summary Notes Anesthesia Complication No 06/03/24 13:38 [email or web address] Anesthesia Complication Comment: Post-operative progress note Anesthesia: Postop Eval II Evaluation Mental status: Awake and Calm Pain Level: 0 nausea: No Vomiting: No Complications Anesthesia Complication: No
== END 2024-06-03 14:42 | disposition home or self-care (01) ==
LOC: EN 12:09 → AC 12:10
PROVIDERS: PCP Family Medicine; Referring Provider Family Medicine; Visit Provider Internal Medicine Gastroenterology
PROC: 0DJD8ZZ Inspection of Lower Intestinal Tract, Via Natural or Artificial Opening Endoscopic (ICD-10-PCS; CPT 45378; principal; 2024-06-03 12:55)
DX: K52.9 Noninfective gastroenteritis and colitis, unspecified (principal); E11.40 Type 2 diabetes mellitus with diabetic neuropathy, unspecified; Z79.4 Long term (current) use of insulin; K57.30 Diverticulosis of large intestine without perforation or abscess without bleeding; K21.9 Gastro-esophageal reflux disease without esophagitis; I10 Essential (primary) hypertension; E07.9 Disorder of thyroid, unspecified; E78.00 Pure hypercholesterolemia, unspecified; M19.90 Unspecified osteoarthritis, unspecified site; G25.81 Restless legs syndrome; Z79.890 Hormone replacement therapy; Z79.84 Long term (current) use of oral hypoglycemic drugs; Z79.899 Other long term (current) drug therapy; Z87.891 Personal history of nicotine dependence
CPT/HCPCS: 45380; 88305; A4216; J2405

== ENCOUNTER → 2024-07-25 | Outpatient (CLI) | payer MEDICARE, BC, SELFPAY ==
[2024-07-25 10:51] LABS: Free T3 2.1 pg/mL (2.18-3.98)
== END | disposition home or self-care (01) ==
LOC: MTLAB 09:27
PROVIDERS: PCP Family Medicine; Referring Provider Internal Medicine Endocrinology, Diabetes & Metabolism; Visit Provider Internal Medicine Endocrinology, Diabetes & Metabolism
DX: E11.9 Type 2 diabetes mellitus without complications (principal); E61.1 Iron deficiency; E78.5 Hyperlipidemia, unspecified; E03.9 Hypothyroidism, unspecified; I10 Essential (primary) hypertension
CPT/HCPCS: 36415; 84439; 84443; 84481

== ENCOUNTER → 2024-09-02 | Outpatient (CLI) | payer MEDICARE, BC, SELFPAY ==
--- NOTE | 2024-09-02 17:06 | RAD_ITS ---
PROCEDURE: SHOULDER MIN 2 VIEWS 09/02/2024 REASON FOR EXAM: PAIN FALL TECHNIQUE: Four views view of the left shoulder COMPARISON: None FINDINGS: Bones: Normal mineralization of the osseous structures is noted. There are no fractures or dislocations. Joints: Joints appear well preserved. Soft tissues: Unremarkable Other: The visualized left lung is clear. There is no pneumothorax or lung contusion. No displaced rib fractures are seen. RAD/Shoulder min 2 Views IMPRESSION: Unremarkable right shoulder. Reading Location: [id number]
== END | disposition home or self-care (01) ==
LOC: MTRAD 17:06
PROVIDERS: PCP Family Medicine; Referring Provider Family Medicine; Visit Provider Family Medicine
DX: M25.512 Pain in left shoulder (principal)
CPT/HCPCS: 73030

== ENCOUNTER → 2024-10-07 | Outpatient (CLI) | payer MEDICARE, BC, SELFPAY ==
--- NOTE | 2024-10-07 07:04 | BI_ITS ---
EXAM: SCREEN MAMM (CAD) W/JOVAN UNI L DATE: 10/07/2024 CLINICAL HISTORY: F, Age 78 y/o , SCREENING Personal history of breast cancer. Prior right mastectomy with radiation and chemotherapy. BREAST CANCER RISK ASSESSMENT: Not assessed TECHNIQUE: Bilateral screening digital breast tomosynthesis with 2D and 3D images. Computer aided detection. COMPARISON: Prior exam(s) dated November 10, 2022.. FINDINGS: TISSUE DENSITY: The breast tissue is composed of scattered area of fibroglandular density. Bilateral Breast Mammographic Findings: No significant masses, calcifications or other abnormalities are identified. No suspicious masses, areas of developing architectural distortion, or suspicious calcifications. There has been no significant interval change. BI/SCREEN MAMM (CAD) W/JOVAN UNI L IMPRESSION: OVERALL FINAL ASSESSMENT: BIRADS 1 NEGATIVE RECOMMENDATION: Routine annual follow-up in 1 Year A letter with findings and recommendations will be mailed to the patient. Reading Location: [place] [id number]
== END | disposition home or self-care (01) ==
PROVIDERS: PCP Family Medicine; Referring Provider Obstetrics & Gynecology; Visit Provider Obstetrics & Gynecology
DX: Z12.31 Encounter for screening mammogram for malignant neoplasm of breast (principal)
CPT/HCPCS: 77063; 77067

== ENCOUNTER → 2024-10-30 | Outpatient (CLI) | payer MEDICARE, BC, SELFPAY ==
[2024-10-30 13:08] LABS: Hemoglobin A1c 8.3 % (<=5.6)
[2024-10-30 13:11] LABS: Microalbumin,Random Urine 32.2 mg/L (NO RANGE EST.); Microalbumin:Creatinine Ratio 25.6 mg/g CRE
[2024-10-30 13:18] LABS: ALB/GLOB Ratio 1.2 RATIO (0.9-2.4); AST(SGOT) 59 U/L (<=31); Alanine Aminotransfer ALT/SGPT 17 U/L (<=34); Alkaline Phosphatase 84 U/L (35-104); Anion Gap 14 (5-15); BUN 23 mg/dL (4-19); BUN/Creat Ratio 22.7 RATIO (10-20); Calcium,Total 10.1 mg/dL (7.6-11.0); Carbon Dioxide 19.8 mmol/L (21.0-32.0); Chloride 104 mmol/L (98-108); Cholesterol 126 mg/dL (<=200); Creatinine, Serum 1.02 mg/dL (0.70-1.20); EST Glomerular Filtration Rate 56 (>60); Free T3 2.5 pg/mL (2.18-3.98); Globulin 3.5 g/dL (2.2-4.2); Glucose 179 mg/dL (70-99); High Density Lipoprotein 35 mg/dL; Low Density Lipoprotein Calc. 43 mg/dL; Potassium 4.9 mmol/L (3.3-5.1); Protein, Total 7.5 g/dL (5.9-8.4); Sodium Level 137 mmol/L (133-145); Triglycerides 241 mg/dL; Very Low Density Lipoprotein 48 mg/dL (5-40)
[2024-10-30 17:08] LABS: Vitamin D,25 Hydroxy 44.7 ng/mL (30-100)
== END | disposition home or self-care (01) ==
LOC: MTLAB 09:53
PROVIDERS: PCP Family Medicine; Referring Provider Internal Medicine Endocrinology, Diabetes & Metabolism; Visit Provider Internal Medicine Endocrinology, Diabetes & Metabolism
DX: E11.9 Type 2 diabetes mellitus without complications (principal); E61.1 Iron deficiency; E78.5 Hyperlipidemia, unspecified; E03.9 Hypothyroidism, unspecified; I10 Essential (primary) hypertension
CPT/HCPCS: 36415; 80053; 80061; 82043; 82306; 82570; 83036; 84439; 84443; 84481

== ENCOUNTER 2024-12-06 13:07 | Emergency (ER) | payer MEDICARE, BC, SELFPAY ==
[2024-12-06 13:08] VITALS: BP 149/71; PULSE 89; RESP 18; TEMP 36.8; O2SAT 98; BMI 33.4
--- NOTE | 2024-12-06 13:23 | EKG12_ITS ---
Test Reason : FALL Blood Pressure : */* mmHG Vent. Rate : 89 BPM Atrial Rate : 89 BPM P-R Int : 260 ms QRS Dur : 124 ms QT Int : 378 ms P-R-T Axes : 57 -45 99 degrees QTcB Int : 459 ms Sinus rhythm with 1st degree A-V block Left axis deviation Left bundle branch block Abnormal ECG Confirmed by JONEL ULRICH, CAITLIN ([id number]), sports editor REBECCA SCHREIBER ([id number]) on 12/08/2024 7:29:32 AM Referred By: Confirmed By: CAITLIN REMY MD
--- NOTE | 2024-12-06 13:25 | CT_ITS ---
PROCEDURE: BRAIN/HEAD WITHOUT CONTRAST 12/06/2024 REASON FOR EXAM: HEAD INJURY TECHNIQUE: BRAIN/HEAD WITHOUT CONTRAST Coronal and Sagittal reconstruction series were provided. One or more dose reduction techniques were used (e.g., Automated exposure control, adjustment of the mA and/or kV according to patient size, use of iterative reconstruction technique. RADIATION DOSE SUMMARY: CTDlvol: 45 mGy DLP: 748 mGycm FINDINGS: There is no intracranial mass. There is no intracranial hemorrhage. No hydrocephalus. Minimal right sphenoid mucosal thickening with small air-fluid levels CT/Brain/Head without Contrast IMPRESSION: Mild atrophy. Sphenoid sinusitis. Reading Location: [id number]
[2024-12-06] MEDS: 0.9% Normal Saline (500mL Bag) 500 ML 999 ML IV (13:34)
--- OUTSIDE RECORDS SUMMARY | 2024-12-06 13:34 | XMS RPT_ITS | CCD ---
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 Benny Bosch Primary Care Provider [phone] Dr. Benny Bosch Referring Provider NOVA Fierro Attending Provider Dr. Gold Farmer Attending Provider NOVA Hernandez Referring Provider Dr. Benny Bosch Primary Care Provider Dr. Rosanna Celaya Attending Provider [phone] Dr. Harsh Elizabeth Referring Provider Dr. Benny Bosch Referring Provider NOVA Fierro Attending Provider Dr. Benny Bosch Primary Care Provider Dr. Benny Bosch Primary Care Provider Dr. Benny Bosch Referring Provider NOVA Fierro Attending Provider Dr. Benny Bosch Primary Care Provider Dr. Benny Bosch Referring Provider Yara ADVANCED MANUFACTURING CONSULTANT, ADVANCED MANUFACTURING CONSULTANT-C Benny Burgess Attending Provider Dr. Rio Richards Attending Provider [phone] Dr. Rio Richards Referring Provider Dr. Alejandro Morales Attending Provider Baddour, Dr. Cong Attending Provider Unavailable Primary Care Provider Unavaillia Bosch MD, Benny Cordova Primary Care Provider Jhonny ULRICH MD, Daesung Unavailable BENNY BOSCH Primary Care Unavailable SHASHI, ALEX Referring Unavailable TJ, SAMUEL Alex Attending Unavailable DIMOV, VESSELIN Referring Unavailable IGGY, MICKI A Attending Unavailable DIMOV, VESSELIN Referring Unavailable SCHINBENNY MACKAY Referring Unavailable SHASHI, ALEX Attending Unavailable HIRO, BENNY Cordova Primary Care Unavailable IGGY, MICKI A Admitting Unavailable IGGY, MICKI A Attending Unavailable SHASHI, ALEX Referring Unavailable SCHINTHOMPSON, BENNY Cordova Primary Care Unavailable SHASHI, ALEX Attending Unavailable HIRO, BENNY Cordova Primary Care Unavailable IGGY, MICKI A Referring Unavailable SHASHI, ALEX Attending Unavailable Dr. Benny Bosch Primary Care Provider [phone] Dr. Benny Bosch Referring Provider NOVA Fierro Attending Provider Dr. Cong Morrison Attending Provider Dr. Cong Morrison Referring Provider MICK Saunders Attending Provider Jhonny ULRICH, Joy Unavailable Dr. Benny Bosch Primary Care Provider [phone] Dr. Benny Bosch Referring Provider Dr. Cong Morrison Primary Care Provider [phone] NOVA Fierro Attending Provider Dr. Benny Bosch Primary Care Provider Dr. Cong Morrison Attending Provider Dr. Cong Morrison Referring Provider Dr. Benny Bosch Referring Provider MICK Saunders Attending Provider Dr. Cong Morrison Primary Care Provider NOVA Fierro Attending Provider [phone] Dr. Benny Bosch Primary Care Provider [phone] Dr. Cong Morrison Attending Provider Dr. Cong Morrison Referring Provider Benny Bosch MD Primary Care Provider Unavailable Primary Care Provider Unavaillia Bosch MD, Dr. Benny Cordova Primary Care Provider Jose Juan MACIAS, Dr. Young Attending Provider Jose Juan MACIAS, Dr. Young Emergency Provider Hiro ULRICH, Dr. Benny Cordova Referring Provider Lindsay Alston Attending Provider Dr. Cong Morrison MD Attending Provider Dr. Benny Bosch MD Attending Provider [phone] Dr. Prem Sanchez DO Attending Provider Daniel MACIAS, Dr. Amaro Other Provider [phone] Bee Roldan MD Primary Care Provider Bee Roldan MD Attending Provider [phone] Bee Roldan MD Referring Provider [phone] Daisy ULRICH, Dr. Leora Beltran Attending Provide r Dr. Leora Villa MD Referring Provide r BENNY BOSCH Primary Care Unavailable ALEX DANIELLE Referring Unavailable BENNY BOSCH Primary Care Unavailable BENNY BOSCH Primary Care Unavailable SUSAN WLIKINSON Referring Unavailable BENNY BOSCH Primary Care Unavailable DANAY GRIFFIN Attending Unavailable BENNY BOSCH Primary Care Unavailable BENNY BOSCH Primary Care Unavailable BENNY BOSCH Primary Care Unavailable BENNY BOSCH Primary Care Unavailable BENNY BOSCH Primary Care Unavailable DANAY GRIFFIN Attending Unavailable SCHINNER, BENNY E Primary Care Unavailable ALEX DANIELLE Attending Unavailable SCHINNER, BENNY E Primary Care Unavailable MARSHAL PARK Attending Unavailable SUSAN WILKINSON Attending Unavailable SCHCANDI, BENNY E Primary Care Unavailable Hiro ULRICH, Dr. Benny Cordova Referring Provider [phone] Hiro ULRICH, Dr. Benny Cordova Primary Care Provider Lindsay Alston Attending Provider Hiro ULRICH, Dr. Benny Cordova Primary Care Provider Hiro ULRICH, Dr. Benny Cordova Referring Provider [phone] Hiro ULRICH, Dr. Benny Cordova Attending Provider Xavier MACIAS, Dr. Hyman Attending Provider Xavier MACIAS, Dr. Hyman Referring Provider [phone] Hiro ULRICH, Dr. Benny Cordova Primary Care Provider Hiro ULRICH, Dr. Benny Cordova Referring Provider Tamiko ULRICH, Dr. Gar Attending Provider Benny Bosch E Primary Care Unavailable Schcandi, Benny E Referring Unavailable Cong Morrison Attending Unavailable Schinthompson, Benny E Primary Care Unavailable Raghunathan, Leora Na Referring Unavaila ble Ragjoseph, Leora Na Attending Unavaila Marshal Navarro Referring Unavailable Marshal Park Attending Unavailable Benny Bosch E Primary Care Unavailable Prem Sanchez Attending Unavailable Schinner, Benny E Primary Care Unavailable Schinner, Benny E Referring Unavailable SchinnerBenny E Attending Unavailable Schinner, Benny E Primary Care Unavailable Schinner, Benny E Referring Unavailable YuliDustinon Referring Unavailable Bee Roldan Attending Unavailable Yuli, Chalon Primary Care Unavailable Schinner, Benny E Primary Care Unavailable Brandy Gonsalez Referring Unavailable Brandy Gonsalez Attending Unavailable Miriam Leon Attending Unavailable Schinner, Benny E Primary Care Unavailable Hector Manzano Attending Unavaillia e Schinner, Benny E Primary Care Unavailable Schinner, Benny E Referring Unavailable Lindsay Shoemaker Attending Unavailable Schinthompson, Benny E Primary Care Unavailable Benny Bosch Referring Unavailable Brandy Gonsalez Attending Unavailable Benny Bosch Primary Care Unavailable Benny Bosch Referring Unavailable Lindsay Shoemaker Attending Unavailable Cong Morrison Attending Unavailable Benny Bosch Referring Unavailable Prem Sanchez Attending Unavailable Prem Sanchez Consulting Unavailable Benny Bosch Primary Care Unavailable SchBenny cowan Referring Unavailable Benny Bosch Attending Unavailable Benny Bosch Primary Care Unavailable SchBenny cowan Referring Unavailable SchBenny cowan Primary Care Unavailable Raghunathan, Leora Na Referring Unavaila ble Raghufifi, Leora Na Attending Unavaila Benny Garcia Attending Unavailable Benny Bosch Primary Care Unavailable Benny Bosch Referring Unavailable Benny Bosch Attending Unavailable Benny Bosch Primary Care Unavailable SchBenny cowan Referring Unavailable Raghunathan, Leora Na Attending Unavaila ble Benny Bosch Primary Care Unavailable Raghunathan, Leora Na Referring Unavaila alexa FriendPrem Attending Unavailable Benny Bosch Referring Unavailable Benny Bosch Primary Care Unavailable SchBenny cowan Primary Care Unavailable Raghunathan, Leora Na Attending Unavaila ble Raghunathan, Leora Na Referring Unavaila alexa FriendPrem Attending Unavailable Prem Sanchez Consulting Unavailable Benny Bosch Referring Unavailable Benny Bosch Primary Care Unavailable Allergies Allergy Classification Reported Allergen(s) Allergy Type Date of Onset Reaction(s) Facility (17 sources) gabapentin Drug Allergy 09-17-2022 Other [facility] Comment on above: mental status change s (1 source) gabapentin Drug Allergy 11-06-2024 [facility] Repository Medications Current Medications Medication Drug Class(es) Dates Sig (Normalized) Sig (Original) acetaminophen 500 mg oral tablet (20 sources) Start: 01-09-2023 End: 01-23-2023 take 2 tablets by mouth every six hours as needed acetaminophen (TYLENOL EXTRA STRENGTH) 500 mg tablet Take 2 tablets by mouth every 6 hours as needed for pain for up to 14 days. 24 tablet 0 01/09/2023 01/23/2023 Active Start: 03-08-2022 End: 2022 take 1 tablet by mouth every twelve hours as needed for pain Acetaminophen 650 mg Tablet Extended Release Discontinued 650 mg PO Q12H as needed for Pain March 08, 2022 12:00am 2022 3:08pm Comment on above: Take 2 tablets by mo [facility] every 6 hours as needed for pain for up to 14 days. amoxicillin 500 mg oral capsule (2 sources) Penicillin-class Antibacterial Start: take 500 mg by mouth every twelve hours Amoxicillin Active 500 MG PO Q12H February 22, 2021 12:00am anastrozole 1 mg oral tablet (20 sources) Aromatase Inhibitor Start: 4 End: 4 take 1 tablet by mouth once daily Anastrozole 1 mg tablet Active 1 mg PO DAILY October 05, 2023 12:00am Start: 04-20-2023 End: 08-04-2023 take 1 tablet by mouth once daily anastrozole (ARIMIDEX) 1 mg tablet Take 1 tablet by mouth once daily. 30 tablet 2 04/20/2023 08/04/2023 Discontinued Comment on above: Take 1 tablet by [facility] once daily. Bilateral wrist splints (20 sources) Start: 12-21-2022 Bilateral wrist splints Active 0 .ROUTE .MEDSUPPLY 2 December 21, 2022 4:24pm Right and left wrist splints to be worn at night Start: 12-21-2022 Bilateral wris t splints Active 0 .ROUTE .MEDSUPPLY 2 December 21, 2022 3:24pm Right and left wrist splints to be worn at night Start: 12-06-2022 End: 12-21-2022 Bilateral wrist splints Disc ontinued 0 .ROUTE .MEDSUPPLY 2 December 06, 2022 12:00am December 21, 2022 4:25pm Right and left wrist splints to be worn at night Start: 12-06-2022 End: 12-21-2022 Bilateral wrist splints Disc ontinued 0 .ROUTE .MEDSUPPLY 2 December 05, 2022 11:00pm December 21, 2022 3:25pm Right and left wrist splints to be worn at night Start: 12-06-2022 Bilateral wris t splints Active 0 .ROUTE .MEDSUPPLY 2 December 06, 2022 12:00am Right and left wrist splints to be worn at night bismuth subsalicylate 262 mg oral tablet (2 sources) Bismuth Start: 02-22-2021 take 2 tablets by mouth every twenty-four hours Bismuth Subsalicylate (Pepto-Bismol) 262 mg tablet Active 2 TABLET PO every 30 to 60 minutes 56 February 22, 2021 12:00am do not exceed 16 tabs per 24 hrs Blood Sugar Diagnostic (20 sources) Start: 01-24-2019 Blood Sugar Diagnostic Active 0 .ROUTE .MEDSUPPLY January 23, 2019 11:00pm As directed Start: 01-24-2019 Blood Sugar Di agnostic Active 0 .ROUTE .MEDSUPPLY January 24, 2019 12:00am As directed Blood-Glucose Meter (20 sources) Start: 01-24-2019 Blood-Glucose Meter Active 0 .ROUTE .MEDSUPPLY January 23, 2019 11:00pm As directed Start: 01-24-2019 Blood-Glucose Meter Active 0 .ROUTE .MEDSUPPLY January 24, 2019 12:00am As directed Blood-Glucose Meter misc (5 sources) Start: 01-24-2019 Blood-Glucose Meter misc Active 0 .ROUTE .MEDSUPPLY January 24, 2019 12:00am As directed cefadroxil 500 mg oral capsule (5 sources) Cephalosporin Antibacterial Start: 01-09-2023 End: 01-19-2023 take 1 capsule by mouth every twelve hours cefADROxil (DURICEF) 500 mg capsule Take 1 capsule by mouth every 12 hours for 10 days. 20 capsule 0 01/09/2023 01/19/2023 Active Comment on above: Take 1 capsule by [facility] every 12 hours for 10 days. cholecalciferol 0.05 mg oral capsule (13 sources) Vitamin D Start: 2022 take 1 capsule by mouth once daily Cholecalciferol (Vitamin D3) 50 mcg (2,000 unit) capsule Active 50 ug PO DAILY 2022 12:00am cholecalciferol, vitamin D3, (D3-1999 ORAL) (20 sources) cholecalciferol, vitamin D3, (D3-1999 ORAL) Active cholecalciferol, vitamin D3, (D3-1999 ORAL) clarithromycin 500 mg oral tablet (2 sources) Macrolide Antimicrobial Start: 02-22-2021 take 500 mg by mouth every twelve hours Clarithromycin Active 500 MG PO Q12H February 22, 2021 12:00am dicyclomine hydrochloride 10 mg oral capsule (20 sources) Anticholinergic Start: 03-21-2021 take 1 capsule by mouth three times daily Dicyclomine Active 10 MG PO THREE TIMES A DAY 60 March 21, 2021 4:48pm Take one capsule by mouth for 30 days. Start: 03-02-2021 End: 03-21-2021 take 1 capsule by mouth twice daily Dicyclomine 10 mg capsule Discontinued 10 mg PO TWICE A DAY 60 March 02, 2021 12:00am March 21, 2021 4:55pm Take one capsule by mouth for 30 days. diphenhydrAMINE hydrochloride 25 mg oral capsule (20 sources) Histamine-1 Receptor Antagonist Start: 2022 take 1 capsule by mouth at bedtime as needed for sleep Diphenhydramine Hcl (Benadryl) 25 mg capsule Active 25 mg PO AT BEDTIME as needed for sleep 2022 12:00am Comment on above: Take by mouth. ferrous sulfate (1 source) take 1 tablet by mouth once daily ferrous sulfate (IRON ORAL) Take 1 tablet by mouth once daily. Active ibuprofen 600 mg oral tablet (20 sources) Nonsteroidal Anti-inflammatory Drug Start: 01-09-2023 End: 01-23-2023 take 1 tablet by mouth every six hours as needed ibuprofen (MOTRIN) 600 mg tablet Take 1 tablet by mouth every 6 hours as needed for pain for up to 14 days. 24 tablet 0 01/09/2023 01/23/2023 Active Start: 03-08-2022 take 1 tablet by efrem th every six hours as needed for pain Ibuprofen 400 mg Tablet Active 400 mg PO EVERY 6 HOURS as needed for Pain March 08, 2022 12:00am Start: 12-03-2014 End: 01-24-2019 take 3 tablets by mouth every six hours as needed for pain Ibuprofen 200 MG tablet Discontinued 600 mg PO EVERY 6 HOURS NEEDED as needed for Pain December 03, 2014 12:00am January 24, 2019 12:11pm Start: 12-03-2014 End: 01-24-2019 take 600 mg by mouth every six hours as needed Ibuprofen Discontinued 600 MG PO EVERY 6 HOURS NEEDED December 03, 2014 12:00am January 24, 2019 12:11pm take 1 capsule by mo ut every six hours as needed Ibuprofen 200 mg cap Take 200 mg by mouth every 6 hours as needed for pain. Active Comment on above: Take 200 mg by mouth every 6 hours as needed for pain. Take 1 tablet by efrem every 6 hours as needed for pain for up to 14 days. 1.5 ml insulin glargine 300 unt/ml pen injector (20 sources) Insulin Analog Start: 02-14-2021 Insulin Glargine U-300 Conc (Toujeo Solostar U-300 Insulin) 300 unit/mL (1.5 mL) insulin pen Active 70 U SC 1729February 14, 2021 12:00am Start: 01-24-2019 End: 02-14-2021 Insulin Glargine U-300 Conc 300 unit/mL (1.5 mL) insulin pen Discontinued ID January 24, 2019 12:00am February 14, 2021 10:59am Start: 01-24-2019 End: 02-14-2021 Insulin Glargine U-300 Conc Discontinued SC January 24, 2019 12:00am February 14, 2021 10:59am insulin glargine U-300 conc (TOUJEO SOLOSTAR U-300 INSULIN) 300 unit/mL (1.5 mL) INJECT 70 UNITS SUBCUTANEOUSLY AT BEDTIME Active Comment on above: INJECT 70 UNITS SUBC UTANEOUSLY AT BEDTIME 0.5 unt doses 3 ml insulin lispro 100 unt/ml pen injector (20 sources) Insulin Analog Start: 04-02-2024 Insulin Lispro (Humalog Alec Kwikpen U-100) 100 unit/mL insulin pen, half-unit Active 40 U SC .1/2 HR PRIOR TO MEAL April 02, 2024 11:17am Start: 11-08-2022 HUMALOG KWIKPE N INSULIN 200 unit/mL (3 mL) injection Inject 40 Units subcutaneously two times a day. 11/08/2022 Active Start: 11-08-2022 HUMALOG KWIKPE N INSULIN 200 unit/mL (3 mL) injection 11/08/2022 Active Start: 02-14-2021 End: 04-02-2024 Insulin Lispro (Humalog Baltazar or Kwikpen U-100) 100 unit/mL insulin pen, half-unit Discontinued 30 U SC WITH DINNER February 14, 2021 12:00am April 02, 2024 11:22am levothyroxine sodium 0.15 mg oral tablet (20 sources) l-Thyroxine Start: 10-07-2008 End: 01-03-2023 take 1 tablet by mouth once daily Levothyroxine 150 MCG tablet Active 150 ug PO DAILY December 03, 2014 12:00am Comment on above: Take one(1) tablet d aily. Take 1 tablet by efrem th once daily. Magnesium (20 sources) take 4 tablets by mouth once daily Magnesium 200 mg tab Take 4 tablets by mouth once daily. Active take 4 tablets by mouth once roseanne ly Magnesium 200 mg tab Take 400 mg by mouth once daily. 4 tablets daily Active take 4 tablets by mouth once roseanne ly Magnesium 200 mg tab Take 400 mg by mouth once daily. 4 tablets daily 0 Active Magnesium 200 mg tab Comment on above: Take 400 mg by mouth once daily. 4 tablets daily magnesium oxide 400 mg oral tablet (13 sources) Start: 2022 take 4 tablets by mouth once daily Magnesium Oxide 400 mg magnesium tablet Active 1600 mg PO DAILY 2022 12:00am Start: 2022 take 1600 mg by mouth once roseanne ly Magnesium Oxide Active 1600 MG PO DAILY 2022 12:00am 24 hr metFORMIN hydrochloride 500 mg extended release oral tablet (20 sources) Biguanide Start: 11-12-2022 take 4 tablets by mouth once daily at bedtime metFORMIN ER (GLUCOPHAGE XR) 500 mg 24 hr tablet Take 4 tablets by mouth daily at bedtime. 11/12/2022 Active Start: 11-12-2022 metFORMIN ER ( GLUCOPHAGE XR) 500 mg 24 hr tablet Start: 01-24-2019 Metformin 500 mg tablet extended release 24 hr Active 2000 mg PO AT BEDTIME 360 January 24, 2019 12:00am Start: 01-24-2019 take 2000 mg by mouth at bedti me Metformin Active 2000 MG PO AT BEDTIME 360 January 24, 2019 12:00am Comment on above: Take 4 tablets by mo uth daily at bedtime. metoclopramide 5 mg oral tablet (2 sources) Dopamine-2 Receptor Antagonist Start: take 1 tablet by mouth at bedtime Metoclopramide Hcl (Reglan) 5 mg tablet Active 5 MG PO before meals and at bedtime March 07, 2021 12:00am metroNIDAZOLE 500 mg oral tablet (20 sources) Nitroimidazole Antimicrobial Start: take 500 mg by mouth every twelve hours Metronidazole Active 500 MG PO Q12H February 22, 2021 12:00am Start: 09-17-2013 End: 04-20-2023 metroNIDAZOLE (METROGEL) 1 % gel Indications: Rosacea .Apply to entire affected area(s) of rosacea on face QDay as directed and can increase up to bid prn flaring or as needed and tolerated. 2 Tube 4 09/17/2013 04/20/2023 Discontinued Comment on above: .Apply to entire aff ected area(s) of rosacea on face QDay as directed and can increase up to bid prn flaring or as needed and tolerated. olmesartan medoxomil 40 mg oral tablet (20 sources) Angiotensin 2 Receptor Josh Start: 11-15-2022 take 1 tablet by mouth once daily olmesartan (BENICAR) 40 mg tablet Take 40 mg by mouth once daily. 11/15/2022 Active Start: 11-15-2022 take 2 tablets by mo [facility] once daily Olmesartan (Benicar) 20 mg tablet Active 40 mg PO DAILY November 15, 2022 1:13pm Start: 12-03-2014 End: 01-03-2023 take 1 tablet by mouth once daily Olmesartan (Benicar) 20 mg tablet Discontinued 20 mg PO DAILY December 03, 2014 12:00am November 15, 2022 1:16pm Comment on above: Take 20 mg by mouth once daily. Take one(1) tablet daily. Take 40 mg by mouth once daily. ondansetron 4 mg oral tablet (20 sources) Serotonin-3 Receptor Antagonist Start: End: take 1 tablet by mouth every eight hours as needed for nausea and vomiting Ondansetron Hcl 4 mg tablet Active 4 mg PO Q8H as needed for nausea and vomiting May 30, 2024 1:00am Start: 03-30-2024 End: 04-02-2024 take 1 tablet by mouth every eight hours as needed for nausea Ondansetron 4 mg tablet,disintegrating Discontinued 4 mg PO EVERY 8 HOURS NEEDED as needed for Nausea March 30, 2024 1:00am April 02, 2024 11:20am Start: 08-17-2022 End: 11-15-2022 take 1 tablet by mouth every eight hours as needed for nausea Ondansetron 4 mg tablet,disintegrating Discontinued 4 mg PO EVERY 8 HOURS NEEDED as needed for Nausea August 17, 2022 12:00am November 15, 2022 1:15pm Start: 01-24-2021 take 4 mg by mouth e very six hours Ondansetron Active 4 MG PO EVERY 6 HOURS January 24, 2021 12:00am rifAXIMin 550 mg oral tablet (2 sources) Rifamycin Antibacterial Start: 02-14-2021 take 1 tablet by mouth three times daily Rifaximin (Xifaxan) 550 mg tablet Active 550 MG PO THREE TIMES A DAY February 14, 2021 12:00am rosuvastatin calcium 20 mg oral tablet (20 sources) HMG-CoA Reductase Inhibitor Start: 09-20-2022 take 1 tablet by mouth once daily Rosuvastatin 20 mg tablet Active 20 mg PO DAILY 2022 12:00am Comment on above: Take 1 tablet by efrem th every afternoon. Take 1 tablet by efrem th once daily. traMADol hydrochloride 50 mg oral tablet (2 sources) Opioid Agonist Start: 03-07-2021 take 50 mg by mouth every eight hours Tramadol Active 50 MG PO Q8H March 07, 2021 12:00am Vitamin B Complex (20 sources) Start: 2022 take 1 tablet by mouth once daily Vitamin B Complex Active 1 TABLET PO DAILY November 26, 2022 11:00pm Start: 2022 take 1 tablet by mouth once da nikole Vitamin B Complex Active 1 TABLET PO DAILY 2022 12:00am vitamin B comple x (SUPER B [id number] ORAL) Active vitamin B comple x (SUPER B [id number] ORAL) Completed/Discontinued Medications Medication Drug Class(es) Dates Sig [...] pain. 8 tablet 0 01/09/2023 04/20/2023 Discontinued Start: 12-13-2014 End: 01-24-2019 Hydrocodone-Acetaminophen 1 TABLET tablet Discontinued 1 - 2 {tbl} PO EVERY 4 HOURS NEEDED as needed for Pain December 13, 2014 12:00am January 24, 2019 12:10pm Start: 12-13-2014 End: 01-24-2019 take 1 tablet by mouth every four hours as needed Hydrocodone-Acetaminophen Discontinued 1 - 2 TABLET PO EVERY 4 HOURS NEEDED December 13, 2014 12:00am January 24, 2019 12:10pm Comment on above: Take 1 tablet by efrem th every 8 hours as needed for pain. cephalexin 500 mg oral capsule (11 sources) Cephalosporin Antibacterial Start: 4 End: take 1 capsule by mouth every twelve hours Cephalexin 500 mg capsule Discontinued 500 mg PO Q12H 20 June 28, 2023 1:00am July 07, 2023 1:00am July 08, 2023 1:04am Start: 03-30-2021 take 500 mg by mouth three times daily Cephalexin Active 500 MG PO THREE TIMES A DAY March 30, 2021 1:00am chlorthalidone 25 mg oral tablet (20 sources) Thiazide-like Diuretic Start: 12-03-2014 End: 01-24-2019 take 1 tablet by mouth every other day Chlorthalidone 25 mg tablet Discontinued 25 mg PO EVERY OTHER DAY December 03, 2014 12:00am January 24, 2019 12:10pm ciprofloxacin 500 mg oral tablet (20 sources) Quinolone Antimicrobial Start: 09-17-2022 End: 09-24-2022 take 1 tablet by mouth twice daily Ciprofloxacin Hcl 500 mg tablet Discontinued 500 mg PO TWICE A DAY 14 September 17, 2022 11:33am September 23, 2022 12:00am September 24, 2022 12:04am Start: 01-17-2021 End: 01-24-2021 take 1 tablet by mouth twice daily Ciprofloxacin Hcl 500 mg tablet Discontinued 500 mg PO TWICE A DAY 14 January 17, 2021 12:00am January 23, 2021 12:00am January 24, 2021 12:01am diclofenac sodium 75 mg delayed release oral tablet (20 sources) Nonsteroidal Anti-inflammatory Drug Start: 12-03-2014 End: 02-14-2021 take 1 tablet by mouth twice daily at mealtime as needed for pain Diclofenac Sodium 75 MG tablet Discontinued 75 mg PO TWICE DAILY WITH MEALS as needed for Pain December 03, 2014 12:00am February 14, 2021 10:58am doxycycline hyclate 50 mg oral capsule (6 sources) Tetracycline-class Drug Start: 09-11-2013 End: 12-25-2022 take 1 capsule by mouth twice daily at mealtime, then take 1 capsule by mouth twice daily doxycycline 50 mg capsule Indications: Rosacea Take one(1) capsule by mouth (with food OK) twice per day (bid) for flaring Rosacea as tolerated and directed. Can taper down to one (1) capsule by mouth per day when flaring has subsided, as directed. 110 capsule 8 09/11/2013 12/25/2022 Discontinued Comment on above: Take one(1) capsule by mouth (with food OK) twice per day (bid) for flaring Rosacea as tolerated and directed. Can taper down to one (1) capsule by mouth per day when flaring has subsided, as directed. DULoxetine 60 mg delayed release oral capsule (20 sources) Serotonin and Norepinephrine Reuptake Inhibitor Start: 09-04-2023 End: 05-13-2024 take 1 capsule by mouth at bedtime Duloxetine 60 mg capsule,delayed release(DR/EC) Discontinued 60 mg PO AT BEDTIME May 02, 2024 2:26pm May 13, 2024 2:53pm Start: 03-16-2023 End: 09-04-2023 take 1 capsule by mouth at bedtime Duloxetine 30 mg capsule,delayed release(DR/EC) Discontinued 30 mg PO AT BEDTIME April 02, 2023 3:58pm September 04, 2023 4:15pm Start: 03-16-2023 End: 04-02-2023 take 1 capsule by mouth once daily at bedtime Duloxetine 60 mg capsule,delayed release(DR/EC) Discontinued 60 mg PO AT BEDTIME March 16, 2023 12:00am April 02, 2023 3:58pm Begin after completing one week course of duloxetine 30mg nightly. Comment on above: Take 30 mg by mouth once daily. for neuropathy ergocalciferol (vitamin D2) 1,000 unit capsule (20 sources) Start: 01-25-20 End: 11-28-19 take 1 capsule by mouth once daily ergocalciferol (vitamin D2) 1,000 unit capsule Discontinued 1000 UNIT PO DAILY January 23, 2019 11:00pm 2022 2:07pm Start: 01-24-2019 End: 2022 take 1 capsule by mouth once daily ergocalciferol (vitamin D2) 1,000 unit capsule Discontinued 1000 UNIT PO DAILY January 24, 2019 12:00am 2022 3:07pm Start: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 of the pelvic arteries. Mild degenerative changes suggested in the visualized lower lumbar spine. Normal bilateral iliac wings, sacroiliac joints and visualized sacrum. Normal bilateral superior and inferior pubic rami. Normal pubic symphysis. Normal bilateral ischial tuberosities. There is no demonstrated osseous destructive lesion or acute fracture. Normal visualized femoral head. Normal acetabulum. Normal hip joint. IMPRESSION: Stable mild degenerative changes suggested in the visualized lower lumbar spine, otherwise normal x-ray examination of the pelvis and left hip. Atherosclerotic vascular calcifications again noted. Lumbar MRI (01/16/2019): COMPARISON: 09/28/2017 MRI lumbar spine. FINDINGS: No fracture or acute signal changes in the vertebrae or disks. Multilevel disc desiccation, and degenerative endplate signal changes and irregularity, most prominent at L3-4 and L5-S1, similar to previous. Alignment remains anatomic. Conus terminates at the level of the middle to vertebral body with normal contour and signal. Thecal sac terminates at the S1-S2 level. No acute or concerning findings in the paraspinal soft tissues. At T12-L1, small diffuse disc bulge and central protrusion with mild bilateral facet degeneration causes only mild narrowing, similar to previous. At L1-2, small diffuse disc bulge and mild bilateral facet degeneration causes only mild narrowing with no evidence of nerve root impingement, similar to previous. At L2-3, moderate diffuse disc bulge and moderate bilateral facet (more content not included)... Normal [facility] Anion gap in Serum or Plasma Ordered By: Leora Villa on 10-30-2024 Anion gap [Moles/Vol] 14 mmol/L 5- [facility] BUN/creatinine ratioOrdered By: Leora Villa on 10-30-2024 Urea nitrogen/Creatinine [Mass ratio] 22.7 mg/mg High 10- [facility] Bilirubin, totalOrdered By: Leora Villa on 10-30-2024 Bilirubin [Mass/Vol] 0.40 mg/dL 0.00-1.30 [facility] Calculated very low density lipoprotein (VLDL) cholesterol measurementOrdered By: Leora Villa on 10-30-2024 Calculated very low density lipoprotein (VLDL) cholesterol measurement 48 mg/dL High 5-40 [facility] Carbon dioxide, total [Moles /volume] in Central venous bloodOrdered By: Leora Villa on 10-30-2024 CO2 [Moles/Vol] 19.8 mmol/L Low 21.0-32.0 [facility] Chloride assayOrdered By: Bryan Villa on 10-30-2024 Chloride [Moles/Vol] 104 mmol/L 98-108 [facility] Comprehensive Metabolic Prof ilon 10-30-2024 Albumin [Mass/Vol] 4.0 g/dL Normal 3.4-4.8 [facility] Comment on above: Order Comment: PLEAS E FAX LABS TO [phone] Performed By: #### L 500.4050, L501.2450, L100.0100, L501.5425 #### [facility] [address] [place], [address] Albumin/Globulin [Mass ratio] 1.2 {ratio} Normal 0.9-2.4 [facility] Comment on above: Order Comment: PLEAS E FAX LABS TO [phone] Performed By: #### L 500.4050, L501.2450, L100.0100, L501.5425 #### [facility] [address] [place], [address] ALK PHOS 84 U/L Normal 35-104 [facility] Comment on above: Order Comment: PLEAS E FAX LABS TO [phone] Performed By: #### L 500.4050, L501.2450, L100.0100, L501.5425 #### [facility] [address] [place], [address] ALT [Catalytic activity/Vol] 17 U/L Normal <=34 [facility] Comment on above: Order Comment: PLEAS E FAX LABS TO [phone] Performed By: #### L 500.4050, L501.2450, L100.0100, L501.5425 #### [facility] [address] [place], [address] AST [Catalytic activity/Vol] 59 U/L High <=31 [facility] Comment on above: Order Comment: PLEAS E FAX LABS TO [phone] Performed By: #### L 500.4050, L501.2450, L100.0100, L501.5425 #### [facility] [address] [place], [address] Bilirubin [Mass/Vol] 0.40 mg/dL Normal 0.00-1.30 [facility] Comment on above: Order Comment: PLEAS E FAX LABS TO [phone] Performed By: #### L 500.4050, L501.2450, L100.0100, L501.5425 #### [facility] [address] [place], [address] BUN/CRE 22.7 RATIO High 10-20 [facility] Comment on above: Order Comment: PLEAS E FAX LABS TO [phone] Performed By: #### L 500.4050, L501.2450, L100.0100, L501.5425 #### [facility] [address] [place], [address] Calcium [Mass/Vol] 10.1 mg/dL Normal 7.6-11.0 [facility] Comment on above: Order Comment: PLEAS E FAX LABS TO [phone] Performed By: #### L 500.4050, L501.2450, L100.0100, L501.5425 #### [facility] [address] [place], [address] Chloride [Moles/Vol] 104 mmol/L Normal 98-108 [facility] Comment on above: Order Comment: PLEAS E FAX LABS TO [phone] Performed By: #### L 500.4050, L501.2450, L100.0100, L501.5425 #### [facility] [address] [place], [address] CO2 [Moles/Vol] 19.8 mmol/L Low 21.0-32.0 [facility] Comment on above: Order Comment: PLEAS E FAX LABS TO [phone] Performed By: #### L 500.4050, L501.2450, L100.0100, L501.5425 #### [facility] [address] [place], [address] Creatinine [Mass/Vol] 1.02 mg/dL Normal 0.70-1.20 [facility] Comment on above: Order Comment: PLEAS E FAX LABS TO [phone] Performed By: #### L 500.4050, L501.2450, L100.0100, L501.5425 #### [facility] [address] [place], [address] GAP 14 Normal 5-15 [facility] Comment on above: Order Comment: PLEAS E FAX LABS TO [phone] Performed By: #### L 500.4050, L501.2450, L100.0100, L501.5425 #### [facility] [address] [place], [address] GFR/1.73 sq M.predicted among non-blacks MDRD (S/P/Bld) [Vol rate/Area] 56 mL/min/{1.73_m2} Low >60 [facility] Comment on above: Order Comment: PLEAS E FAX LABS TO [phone] Result Comment: mL/m in/1.73m2 CKD-EPI Creatinine Equation (2020) Performed By: #### L 500.4050, L501.2450, L100.0100, L501.5425 #### [facility] [address] [place], [address] Globulin (S) [Mass/Vol] 3.5 g/dL Normal 2.2-4.2 [facility] Comment on above: Order Comment: PLEAS E FAX LABS TO [phone] Performed By: #### L 500.4050, L501.2450, L100.0100, L501.5425 #### [facility] [address] [place], [address] Glucose [Mass/Vol] 179 mg/dL High 70-99 [facility] Comment on above: Order Comment: PLEAS E FAX LABS TO [phone] Performed By: #### L 500.4050, L501.2450, L100.0100, L501.5425 #### [facility] [address] [place], [address] Potassium [Moles/Vol] 4.9 mmol/L Normal 3.3-5.1 [facility] Comment on above: Order Comment: PLEAS E FAX LABS TO [phone] Performed By: #### L 500.4050, L501.2450, L100.0100, L501.5425 #### [facility] [address] [place], [address] Sodium [Moles/Vol] 137 mmol/L Normal 133-145 [facility] Comment on above: Order Comment: PLEAS E FAX LABS TO [phone] Performed By: #### L 500.4050, L501.2450, L100.0100, L501.5425 #### [facility] [address] [place], [address] T PROT 7.5 g/dL Normal 5.9-8.4 [facility] Comment on above: Order Comment: PLEAS E FAX LABS TO [phone] Performed By: #### L 500.4050, L501.2450, L100.0100, L501.5425 #### [facility] [address] [place], [address] Urea nitrogen [Mass/Vol] 23 mg/dL High 08-30 [facility] Comment on above: Order Comment: PLEAS E FAX LABS TO [phone] Performed By: #### L 500.4050, L501.2450, L100.0100, L501.5425 #### [facility] [address] [place], [address] Free T3on 10-30-2024 Free T3 [Mass/Vol] 2.5 pg/mL Normal 2.18-3.98 [facility] Comment on above: Order Comment: PLEAS E FAX LABS TO [phone] Performed By: #### L 500.4050, L501.2450, L100.0100, L501.5425 #### [facility] [address] [place], [address] Free P2Trsslob By: Leora lutz on 10-30-2024 Free T3 [Mass/Vol] 2.5 pg/mL 2.18-3.98 [facility] Glomerular filtration rate ( GFR) estimation/1.73 sq m using serum, plasma, or whole bOrdered By: Leora Villa on 10-30-2024 GFR/1.73 sq M.predicted among non-blacks MDRD (S/P/Bld) [Vol rate/Area] 56 mL/min/{1.73_m2} Low >60 [facility] Comment on above: mL/min/1.73m2 CKD-EP I Creatinine Equation (2020) Hemoglobin A1con 10-30-2024 HbA1c (Bld) [Mass fraction] 8.3 % High <=5.6 [facility] Comment on above: Order Comment: PLEAS E FAX LABS TO [phone] Result Comment: Norm al < 5.7 % Prediabetic 5.7 - 6.4 % Diabetic >or= 6.5 % Please note range changes. Performed By: #### L 500.4050, L501.2450, L100.0100, L501.5425 #### [facility] [address] [place], [place], [address] Hemoglobin A1c percentageOrd ered By: Leora Villa on 10-30-2024 HbA1c (Bld) [Mass fraction] 8.3 % High <5.7 [facility] Comment on above: Normal < 5.7 % Predi abetic 5.7 - 6.4 % Diabetic >or= 6.5 % Please note range changes. LDL calc ser/plasOrdered By: Leora Villa on 10-30-2024 Cholesterol in LDL [Mass/Vol] 43 mg/dL [facility] Comment on above: Codxurbnax=908-791 m g/dL & Higher Hjhw=578 mg/dL or greater Laboratory - Chemistry and C hemistry - challengeOrdered By: Leora Villa on 10-30-2024 AST [Catalytic activity/Vol] 59 U/L High <32 [facility] Lipid Profileon 10-30-2024 CHOL:HDL 3.60 Normal [facility] Comment on above: Order Comment: PLEAS E FAX LABS TO [phone] Performed By: #### L 500.4050, L501.2450, L100.0100, L501.5425 #### [facility] [address] [place], [place], [address] Cholesterol [Mass/Vol] 126 mg/dL Normal <=200 [facility] Comment on above: Order Comment: PLEAS E FAX LABS TO [phone] Result Comment: Chol esterol level, Desirable <200 mg/dL Borderline high cholesterol 200-239 mg/dL High cholesterol >=240 mg/dL Recommendations of the NCEP Adult Treatment Panel for the following risk-cutoff thresholds for the [place] population. Performed By: #### L 500.4050, L501.2450, L100.0100, L501.5425 #### [facility] [address] [place], [address] Cholesterol in HDL [Mass/Vol] 35 mg/dL Low [facility] Comment on above: Order Comment: PLEAS E FAX LABS TO [phone] Result Comment: Cristy onal Cholesterol Education Program (NCEP) guidelines: <40 mg/dL: Low HDL-cholesterol (major risk factor for CHD) >= 60 mg/dL: High HDL-cholesterol (negative risk factor for CHD) HDL-cholesterol is affected by a number of factors, e.g. smoking, exercise, hormones, sex and age. Performed By: #### L 500.4050, L501.2450, L100.0100, L501.5425 #### [facility] [address] [place], [address] Cholesterol in LDL [Mass/Vol] 43 mg/dL Normal [facility] Comment on above: Order Comment: PLEAS E FAX LABS TO [phone] Result Comment: Bord sxhyel=527-986 mg/dL Higher Ocee=252 mg/dL or greater Performed By: #### L 500.4050, L501.2450, L100.0100, L501.5425 #### [facility] [address] [place], [address] Cholesterol in VLDL [Mass/Vol] 48 mg/dL High 5-40 [facility] Comment on above: Order Comment: PLEAS E FAX LABS TO [phone] Performed By: #### L 500.4050, L501.2450, L100.0100, L501.5425 #### [facility] [address] [place], [address] Triglyceride [Mass/Vol] 241 mg/dL High [facility] Comment on above: Order Comment: PLEAS E FAX LABS TO [phone] Result Comment: The drugs N-Acetylcysteine and Metamizole may falsely depress this assay. Normal range: <150 mg/dL Borderline High: 150-199 mg/dL High: 200-499 mg/dL Very High: >500 mg/dL Performed By: #### L 500.4050, L501.2450, L100.0100, L501.5425 #### [facility] [address] [place], [address] Microalb:Creat Ratio,Random URon 10-30-2024 Creatinine [Mass/Vol] 126.00 mg/dL Normal 28.00- 217. 00 [facility] Comment on above: Order Comment: PLEAS E FAX LABS TO [phone] Performed By: #### L 500.4050, L501.2450, L100.0100, L501.5425 #### [facility] [address] [place], [address] MALB:CREAT 25.6 mg/g CRE Normal [facility] Comment on above: Order Comment: PLEAS E FAX LABS TO [phone] Performed By: #### L 500.4050, L501.2450, L100.0100, L501.5425 #### [facility] [address] [place], [address] MICROALBUMIN,UR 32.2 mg/L Normal NO RANGE EST. [facility] Comment on above: Order Comment: PLEAS E FAX LABS TO [phone] Performed By: #### L 500.4050, L501.2450, L100.0100, L501.5425 #### [facility] [address] [place], [address] Potassium measurement (mass/ volume)Ordered By: Leora Villa on 10-30-2024 Potassium (Unsp spec) [Mass/Vol] 4.9 mmol/L 3.3-5.1 [facility] Random urine creatinine wale urement (mass/volume)Ordered By: Leora Villa on 10-30-2024 Creatinine Unsp time (U) [Mass/Vol] 126.00 mg/dL 28.00-217. 00 [facility] Screening total cholesterol/ high density lipoprotein (HDL) cholesterol ratioOrdered By: Leora Villa on 10-30-2024 Cholesterol.total/Cho lesterol in HDL [Mass ratio] 3.60 {ratio} [facility] Serum creatinine measurement (mass/volume)Ordered By: Leora Villa on 10-30-2024 Creatinine [Mass/Vol] 1.02 mg/dL 0.70-1.20 [facility] Serum globulin measurementOr dered By: Leora Villa on 10-30-2024 Globulin (S) [Mass/Vol] 3.5 g/dL 2.2-4.2 [facility] Serum glucose measurement (m ass/volume)Ordered By: Leora Villa on 10-30-2024 Glucose [Mass/Vol] 179 mg/dL High 70-99 [facility] Serum or plasma alanine gayle otransferase (ALT) measurementOrdered By: Leora Villa on 10-30-2024 ALT [Catalytic activity/Vol] 17 U/L <35 [facility] Serum or plasma albumin wale urement (mass/volume)Ordered By: Leora Villa on 10-30-2024 Albumin [Mass/Vol] 4.0 g/dL 3.4-4.8 [facility] Serum or plasma albumin/glob ulin mass ratioOrdered By: Leora Villa on 10-30-2024 Albumin/Globulin [Mass ratio] 1.2 {ratio} 0.9-2.4 [facility] Serum or plasma alkaline valentin sphatase measurementOrdered By: Leora Villa on 10-30-2024 ALP [Catalytic activity/Vol] 84 U/L 35-104 [facility] Serum or plasma calcium wale urement (mass/volume)Ordered By: Leora Villa on 10-30-2024 Calcium [Mass/Vol] 10.1 mg/dL 7.6-11.0 [facility] Serum or plasma cholesterol in HDL measurement (mass/volume)Ordered By: Leora Villa on 10-30-2024 Cholesterol in HDL [Mass/Vol] 35 mg/dL Low >40 [facility] Comment on above: National Cholesterol Education Program (NCEP) guidelines:<40 mg/dL: Low HDL-cholesterol (major risk factor for CHD)>= 60 mg/dL: High HDL-cholesterol (negative risk factor for CHD)HDL-cholesterol is affected by a number of factors, e.g. smoking, exercise, hormones, sex and age. Serum or plasma cholesterol measurement (mass/volume)Ordered By: Leora Villa on 10-30-2024 Cholesterol [Mass/Vol] 126 mg/dL <201 [facility] Comment on above: Cholesterol level, D esirable <200 mg/dLBorderline high cholesterol 200-239 mg/dLHigh cholesterol >=240 mg/dLRecommendations of the NCEP Adult Treatment Panel for the following risk-cutoff thresholds for the [place] population. Serum or plasma urea nitroge n measurement (mass/volume)Ordered By: Leora Villa on 10-30-2024 Urea nitrogen [Mass/Vol] 23 mg/dL High - [facility] Sodium levelOrdered By: Jose Villa on 10-30-2024 Sodium [Moles/Vol] 137 mmol/L 133-145 [facility] T4 Free Directon 10-30-2024 T4 FREE DIRECT 1.40 ng/dL Normal 0.76-1.46 [facility] Comment on above: Order Comment: SINDY Cordova FAX LABS TO [phone] Performed By: #### L 500.4050, L501.2450, L100.0100, L501.5407 #### [facility] [address] [place], [place], [address] T4 freeOrdered By: Leora lutz on 10-30-2024 Free T4 [Mass/Vol] 1.40 ng/dL 0.76-1.46 [facility] TSH DL <= 0.005 mIU/L QnOrde red By: Leora Villa on 10-30-2024 TSH Qn 2.140 uIU/mL 0.300-4.20 0 [facility] Thyroid Stim Hormone (TSH)on 10-30-2024 TSH 2.140 uIU/mL Normal 0.300-4.20 0 [facility] Comment on above: Order Comment: SINDY Cordova FAX LABS TO [phone] Performed By: #### L 500.4050, L501.2450, L100.0100, L501.5425 #### [facility] [address] [place], [place], [address] Total proteinOrdered By: Lester Villa on 10-30-2024 Protein [Mass/Vol] 7.5 g/dL 5.9-8.4 [facility] Triglycerides measurementOrd ered By: Leora Villa on 10-30-2024 Triglyceride [Mass/Vol] 241 mg/dL High <199 [facility] Comment on above: The drugs N-Acetylcy steine and Metamizole may falsely depress this assay. Normal range: <150 mg/dLBorderline High: 150-199 mg/dLHigh: 200-499 mg/dLVery High: >500 mg/dL Urine albumin measurement wi detection limit of 20 mg/L or less (mass/volume)Ordered By: Leora Villa on 10-30-2024 Albumin DL <= 20 mg/L (U) [Mass/Vol] 32.2 mg/L NO RANGE EST. [facility] Vitamin D,25 Hydroxyon 10-30 Vitamin D 25-OH 44.7 ng/mL Normal 30-100 [facility] Comment on above: Result Comment: Ann-Marie min D Status Deficiency: <20 ng/mL (50nmol/L) Insufficiency: 20-30 ng/mL (50-75 nmol/L) Sufficiency: 30-100 ng/mL (75-250 nmol/L) Toxicity: >100 ng/mL (>250 nmol/L) Performed By: #### L 506.1001 ####[facility] [id number] [place], [place], [address] Breast imaging reportOrdered By: Daron Russell on 10-07-2024 Study report [facility] Imaging Services [address] [place], [place] [address] SCREEN MAMM (CAD) W/JOVAN UNI L MR#: [id number] Acct: [id number] Name: SULEIMAN RAMSEY Rep #: [id number] : 1945 F 78 From: Carson Russell MD PCP: Dr. Benny Bosch MD Status: RE G CLI Study:SCREEN MAMM (CAD) W/JOVAN UNI L Date of Exam: 10/07/24 Exam# [id number] Ordering Dr: Marshal Park DO EXAM: SCREEN MAMM (CAD) W/JOVAN UNI L DATE: 10/07/2024 CLINICAL HISTORY: F, Age 78 y/o , SCREENING Personal history of breast cancer. Prior right mastectomy with radiation and chemotherapy. BREAST CANCER RISK ASSESSMENT: Not assessed TECHNIQUE: Bilateral screening digital breast tomosynthesis with 2D and 3D images. Computeraided detection. COMPARISON: Prior exam(s) dated November 10, 2022.. FINDINGS: TISSUE DENSITY: The breast tissue is composed of scattered area of fibroglandular density. Bilateral Breast Mammographic Findings: No significant masses, calcifications or other abnormalities are identified. No suspicious masses, areas of developing architectural distortion, or suspicious calcifications. There has been no significant interval change. BI/SCREEN MAMM (CAD) W/JOVAN UNI L IMPRESSION: OVERALL FINAL ASSESSMENT: BIRADS 1 NEGATIVE RECOMMENDATION: Routine annual follow-up in 1 Year A letter with findings and recommendations will be mailed to the patient. Reading Location: [facility] CC: Dr. Benny Bosch MD; Dr. Marshal Park DO ~ Marketing Operations Specialist: Signed [facility] SCREEN MAMM (CAD) W/JOVAN UNI Nikita 10-07-2024 SCREEN MAMM (CAD) W/JOVAN UNI L [facility] Imaging Services [address] [place], [place] [id number] SCREEN MAMM (CAD) W/JOVAN UNI L MR#: [id number] Acct: [id number] Name: SULEIMAN RAMSEY Rep #: [id number] : 1945 F 78 From: Daron weaver MD PCP: Dr. Benny Bosch MD Status: REG CLI Study: SCREEN MAMM (CAD) W/JOVAN UNI L Date of Exam: 0 10/07/24 Exam# [id number] Ordering Dr: Marshal Park DO EXAM: SCREEN MAMM (CAD) W/JOVAN UNI L DATE: 10/07/2024 CLINICAL HISTORY: F, Age 78 y/o , SCREENING Personal history of breast cancer. Prior right mastectomy with radiation and chemotherapy. BREAST CANCER RISK ASSESSMENT: Not assessed TECHNIQUE: Bilateral screening digital breast tomosynthesis with 2D and 3D images. Computer aided detection. COMPARISON: Prior exam(s) dated November 10, 2022.. FINDINGS: TISSUE DENSITY: The breast tissue is composed of scattered area of fibroglandular density. Bilateral Breast Mammographic Findings: No significant masses, calcifications or other abnormalities are identified. No suspicious masses, areas of developing architectural distortion, or suspicious calcifications. There has been no significant interval change. BI/SCREEN MAMM (CAD) W/JOVAN UNI L IMPRESSION: OVERALL FINAL ASSESSMENT: BIRADS 1 NEGATIVE RECOMMENDATION: Routine annual follow-up in 1 Year A letter with findings and recommendations will be mailed to the patient. Reading Location: [place] [address] CC: Dr. Benny Bosch MD; Dr. Marshal Park DO Marketing Operations Specialist: Signed Normal [facility] Shoulder min 2 Viewson 09-02 Shoulder min 2 Views [facility] Imaging Services [address] [place] [address] Shoulder min 2 Views MR#: [id number] Acct: [id number] Name: SULEIMAN RAMSEY Rep #: [id number] : 1945 F 78 From: Emperatriz Langston PCP: Dr. Benny Bosch MD Status: REG CLI Study: Shoulder min 2 Views Date of Exam: 09/02/24 Exam# [id number] Ordering Dr: Benny Bosch MD PROCEDURE: SHOULDER MIN 2 VIEWS 09/02/2024 REASON FOR EXAM: PAIN FALL TECHNIQUE: Four views view of the left shoulder COMPARISON: None FINDINGS: Bones: Normal mineralization of the osseous structures is noted. There are no fractures or dislocations. Joints: Joints appear well preserved. Soft tissues: Unremarkable Other: The visualized left lung is clear. There is no pneumothorax or lung contusion. No displaced rib fractures are seen. RAD/Shoulder min 2 Views IMPRESSION: Unremarkable right shoulder. Reading Location: [id number] CC: Dr. Benny Bosch MD Marketing Operations Specialist: Signed Normal [facility] Basic metabolic 2000 panelon 08-18-2024 Anion gap [Moles/Vol] 8 mmol/L Normal 8-15 [facility] Comment on above: Order Comment: Speci men Type: BLOOD SPECIMENOrdering Facility: [facility] Address: [address] [place] [address] Performed By: #### 2 4321-2 ####[facility] [id number] [place] [address] [place] Calcium [Mass/Vol] 10.2 mg/dL Normal 8.5-10.2 [facility] Comment on above: Order Comment: Speci men Type: BLOOD SPECIMENOrdering Facility: [facility] Address: [address] [place] [address] Performed By: #### 2 4321-2 ####[facility] [id number] [place] [address] [place] Chloride [Moles/Vol] 102 mmol/L Normal 98-107 [facility] Comment on above: Order Comment: Speci men Type: BLOOD SPECIMENOrdering Facility: [facility] Address: [address] [place] [address] Performed By: #### 2 4321-2 ####[facility] [id number] [place] [address] [place] CO2 [Moles/Vol] 25 mmol/L Normal 22-30 [facility] Comment on above: Order Comment: Speci men Type: BLOOD SPECIMENOrdering Facility: [facility] Address: [address] [place] [address] Performed By: #### 2 4321-2 ####[facility] PIETROKNIFE RIVERNCLI [id number] [place] [address] [place] Creatinine [Mass/Vol] 0.82 mg/dL Normal 0.58-0.96 [facility] Comment on above: Order Comment: Speci men Type: BLOOD SPECIMENOrdering Facility: [facility] Address: [address] [place] [address] Performed By: #### 2 4321-2 ####[facility] [id number] [place] [address] [place] Creatinine and Glomerular filtration rate.predicted panel (S/P/Bld) 73 mL/min/1.73m??? Normal >=60 [facility] Comment on above: Order Comment: Speci men Type: BLOOD SPECIMENOrdering Facility: [facility] Address: [address] [place] [address] Result Comment: Payal mated Glomerular Filtration Rate (eGFR) is calculated using the 2020 CKD-EPI creatinine equation. This equation utilizes serum creatinine, sex, and age as parameters. The creatinine assay has traceable calibration to isotope dilution-mass spectrometry. Refer to KDIGO guidelines for clinical interpretation. In patients with unstable renal function, e.g. those with acute kidney injury, the eGFR may not accurately reflect actual GFR. Performed By: #### 2 4321-2 ####[facility] [id number] [place] [address] [place] Glucose [Mass/Vol] 250 mg/dL High 74-99 [facility] Comment on above: Order Comment: Speci men Type: BLOOD SPECIMENOrdering Facility: [facility] Address: [address] [place] [address] Result Comment: The [place] Diabetes Association (ADA) provides guidance for cutoff values for fasting glucose and random glucose. The ADA defines fasting as no caloric intake for at least 8 hours. Fasting plasma glucose results between 100 to 125 mg/dL indicate increased risk for diabetes (prediabetes). Fasting plasma glucose results greater than or equal to 126 mg/dL meet the criteria for diagnosis of diabetes. In the absence of unequivocal hyperglycemia, results should be confirmed by repeat testing. In a patient with classic symptoms of hyperglycemia or hyperglycemic crisis, random plasma glucose results greater than or equal to 200 mg/dL meet the criteria for diagnosis of diabetes. Reference: Standards of Medical Care in Diabetes 2016, [place] Diabetes Association. Diabetes Care. 2016.39(Suppl 1). Performed By: #### 2 4321-2 ####[facility] MILLTOWBENIGNOLIA [id number] [place] [address] [place] Potassium [Moles/Vol] 4.1 mmol/L Normal 3.7-5.1 [facility] Comment on above: Order Comment: Speci men Type: BLOOD SPECIMENOrdering Facility: [facility] Address: [address] [place] [address] Performed By: #### 2 4321-2 ####[facility] [id number] [place] [address] [place] Sodium [Moles/Vol] 135 mmol/L Low 136-144 [facility] Comment on above: Order Comment: Speci men Type: BLOOD SPECIMENOrdering Facility: [facility] Address: [address] [place] [address] Performed By: #### 2 4321-2 ####[facility] [id number] [place] [address] [place] Urea nitrogen [Mass/Vol] 20 mg/dL Normal 7-21 [facility] Comment on above: Order Comment: Speci men Type: BLOOD SPECIMENOrdering Facility: [facility] Address: [address] [place] [address] Performed By: #### 2 4321-2 ####[facility] [id number] [place] [id number] [place] [address] [place] CNOVSPon 08-18-2024 CNOVSP Visit (SP) Office (H EMAWS) SULEIMAN RAMSEY ([id number]) 1945 F Date Time Provider Department 08/18/24 10:00 AM DANAY GRIFFIN During your visit today, we recorded the following information about you: Temperature Pulse Blood pressure Weight 97.4 degrees 74/minute 186/110 79.8 kg Danay Griffin 08/18/2024 2:34 PM Signed Suleiman Ramsey 1945 08/18/2024 HPI: Suleiman Ramsey is a 78 year old female who presents here today for follow up breast cancer. Per Dr. Chowdhury's previous note: H/o hypertension, left bundle branch block, hypercholesterolemia, hypothyroidism, diabetes, atrophic vaginitis and rosacea. Patient noted a mass in her right breast approximately 6 months prior to presentation. She was seen by her day habilitation specialist to confirm the presence of a mass. She underwent a bilateral diagnostic mammogram with a right-sided ultrasound at [facility] 11/10/2022. The ultrasound demonstrated that the [...] 2/3. ER (clone 6F11) >95% , strong CA (clone 16/1E2) 80%, weak to moderate Her-2Neu (clone CB11) 1 - 2+ (equivocal) Patient had a CT of the chest, abdomen pelvis on 11/29/2022 at [facility]. There was a group of nodular [...] had a bone scan on 12/04/2022 at [facility]. That study demonstrated increased uptake in [...] of no special type (ductal) Histologic Grade ([place] Histologic Score) Glandular (Acinar) / Tubular Differentiation Score 3 Nuclear Pleomorphism Score 2 Mitotic Rate Score 2 O (more content not included)... Normal [facility] Free T3on 07-25-2024 Free T3 [Mass/Vol] 2.1 pg/mL Low 2.18-3.98 [facility] Comment on above: Performed By: #### L 501.89213, L506.0400, L501.9520 ####[facility] [id number] [place], [place], [id number] Free N3Dzntyhu By: Leora lutz on 07-25-2024 Free T3 [Mass/Vol] 2.1 pg/mL Low 2.18-3.98 [facility] Free Triiodothyronine (T3) pg/dL 2.1 pg/mL Low 2.18-3.98 [facility] T4 Free Directon 07-25-2024 T4 FREE DIRECT 1.10 ng/dL Normal 0.76-1.46 [facility] Comment on above: Performed By: #### L 501.76679, L506.0400, L501.9520 ####[facility] [id number] [place], [place], [id number] T4 freeOrdered By: Leora lutz on 03-14-2025 Free T4 [Mass/Vol] 1.10 ng/dL 0.76-1.46 [facility] TSH DL <= 0.005 mIU/L QnOrde red By: Leora Villa on 07-25-2024 Thyroid Stimulating Hormone (TSH) 10.300 uIU/mL High 0.300-4.20 0 [facility] TSH Qn 10.300 uIU/mL High 0.300-4.20 0 [facility] Thyroid Stim Hormone (TSH)on 07-25-2024 TSH 10.300 uIU/mL High 0.300-4.20 0 [facility] Comment on above: Performed By: #### L 501.79765, L506.0400, L501.9520 ####[facility] [id number] [place], [address] Gastroenterology Visit Repor ton 06-17-2024 Gastroenterology Visit Report [facility] Gastroenterology [address] [place] [address] OFFICE VISIT Date of Service: 06/17/24 MR#: [id number] Acct: [id number] Name: SULEIMAN RAMSEY Rep #: [id number] : 1945 Provider: NOVA Ruiz Age/Sex: 78/F Location: [facility] Status: Signed Intake Vital Signs 04/24/24 10:29 06/03/24 12:50 Height 5 ft 1 in 5 ft 1 in Intake Visit Reasons: TEST RESULTS Chief Complaint: f/u Allergies gabapentin Adverse Reaction (Severe, Verified 06/03/24 12:48) Other Patient : No Have you fallen in the past year?: No Nurse's Note: OV 06.18.24 Pt here for f/u. Reports she is feeling good and is only experiencing gas and bloating. Pt would like a refill on her omeprazole but had no further concerns. [facility] Medical History (Updated 06/17/24 @ 08:47 by NOVA Ruiz) Cancer Thyroid disease Diabetes Leg cramps History of neuropathy History of recent fall Fatty liver Restless legs Dietary restriction History of hiatal hernia History of ulceration Abdominal pain Post-menopausal Wears hearing aid Wears glasses Insulin dependent diabetes mellitus High cholesterol Back pain Gastric reflux Former smoker History of echocardiogram History of stress test Hx of corn of toe Hx of dermabrasion Bloating Hypergammaglobulinemia CKD (chronic kidney disease) Hyperlipidemia Cataracts, bilateral Increased urinary frequency Back pain Difficulty balancing Arthritis Thyroid disease Hypertension Surgical History (Updated 05/30/24 @ 10:49 by Lisa Thomas) History of esophagogastroduodenoscopy (EGD) History of back surgery Hx of right mastectomy History of right breast biopsy ( 11/2022) S/P ORIF (open reduction internal fixation) fracture Hx of arthroscopic knee surgery Hx of tubal ligation Family History Father Cancer lung/liver/pancreas Myocardial infarction Heart disease Grandfather Rectal cancer paternal Social History Smoking Status: Former smoker alcohol intake: never HPI HPI Chief Complaint: f/u Details: SULEIMAN RAMSEY, is a 78 F who presents to the office today for f/u. BGI established .. EGD .06.04; - LA Grade A reflux esophagitis. Biopsied. - Non-obstructing Schatzki ring. - Non-obstructing non-bleeding gastric ulcer with no stigmata of bleeding. Biopsied. OV 04.02.24 w/ epigastric pain, nausea and 5lbs weight loss for one week. Hx of H. pylori infection. Started ozempic prior to symptom start. Increased omeprazole to 40 mg BID. EGD scheduled [facility] ED 04.24.24 visit after presenting to PCP with chest pain. Work up negative for cardiac etiology. GI cocktail resolved symptoms Discharged. OV 05.02.24 Here today for f/u after ED visit. Pt daughter is here with her today and helps provide hx. Her epigastric pain is better while on twice a day PPI but not completely resolved. She continues to have pain with eating. She has only been able to eat soups and nutritional drinks. She is now also having diarrhea after she eats any food.PCP recently ordered GES. GES 1.9.25; prolonged at 68 minutes Colonoscopy 1.21.25; - Diverticulosis in the recto-sigmoid colon, in the sigmoid colon and in the descending colon. - Congested mucosa in the rectum, in the recto-sigmoid colon, in the sigmoid colon, in the descending colon, at the splenic flexure and in the ascending colon. Biopsied. - The examined portion of the ileum was normal. Biopsied. non-specific inflammation OV 2.4.25 Pt has been doing well. She is having one bowel movement daily that is solid. She denies epigastric pain. She continues taking omeprazole 40 mg BID which controls her epigastric pain. She is eating a normal diet with no difficulties. ROS Const Constitutional: Positive for fatigue and weight change; No fever(s) ENT ENT: No difficulty swallowing Gastro GI: Positive for bloating; No abdominal pain, belching, change in bowel habits, change in stool character, coffee ground emesis, constipation, cramping, diarrhea, heartburn, difficulty swallowing, feeling full early, excessive flatus, incontinent of stools, Vomiting blood/hematemesis, Blood in stool, loose stools, Black,tarry stools, nausea/dyspepsia, pain with swallowing, vomiting or other Musc Musculoskeletal: Positive for abnormal gait, back pain, muscle cramps and restless legs; No joint pain Skin Skin: No yellowing of the eye or itchy eyes Neuro Neurology: Positive for abnormal gait and restless legs Psych Psychiatric: No anxiety and No depression Endo Endocrine: Positive for fatigue and weight change Aller/Imm Allergy/Immunologic: No itchy eyes Rafiq/Lymp Hematologic/Lymphatic: No easy blee (more content not included)... Normal [facility] Colonoscopy Reporton 025 Colonoscopy Report [facility] Medical Records Department [address] [place] [address] Colonoscopy Report MR#: [id number] Acct: [id number] Name: SULEIMAN RAMSEY Rep #: [id number] : 1945 78 From: Prem Sanchez DO PCP: Dr. Benny Bosch MD Status:[facility] Patient Name: Suleiman Ramsey Procedure Date: 06/03/2024 12:52 PM Date of : 1945 Age: 78 Procedure: Colonoscopy Indications: Abdominal pain in the left lower quadrant, Lower abdominal pain, Chronic diarrhea, Clinically significant diarrhea of unexplained origin Providers: Prem Sanchez DO Referring MD: Prem Sanchez DO Medicines: Monitored Anesthesia Care Patient Profile: This is a 78 year old female. Refer to note in patient chart for documentation of history and physical. Last Colonoscopy: several years ago. Complications: No immediate complications. Procedure: Pre-Anesthesia Assessment: - Prior to the procedure, a History and Physical was performed, and patient medications and allergies were reviewed. The patient is competent. The risks and benefits of the procedure and the sedation options and risks were discussed with the patient. All questions were answered and informed consent was obtained. Patient identification and proposed procedure were verified by the physician in the pre-procedure area. Mental Status Examination: alert and oriented. Airway Examination: normal oropharyngeal airway and neck mobility. Respiratory Examination: clear to auscultation. CV Examination: normal. Prophylactic Antibiotics: The patient does not require prophylactic antibiotics. Prior Anticoagulants: The patient has taken no anticoagulant or antiplatelet agents except for NSAID medication. ASA Grade Assessment: III - A patient with severe systemic disease. After reviewing the risks and benefits, the patient was deemed in satisfactory condition to undergo the procedure. The anesthesia plan was to use monitored anesthesia care (MAC). Immediately prior to administration of medications, the patient was re-assessed for adequacy to receive sedatives. The heart rate, respiratory rate, oxygen saturations, blood pressure, adequacy of pulmonary ventilation, and response to care were monitored throughout the procedure. The physical status of the patient was re-assessed after the procedure. After I obtained informed consent, the scope was passed under direct vision. Throughout the procedure, the patient's blood pressure, pulse, and oxygen saturations were monitored continuously. The Colonoscope was introduced through the anus and advanced to the terminal ileum. The colonoscopy was performed without difficulty. The patient tolerated the procedure fairly well. The quality of the bowel preparation was adequate. The terminal ileum, ileocecal valve, appendiceal orifice, and rectum were photographed. Scope In: 1:10:32 PM Scope Withdrawal Time 0 hours 10 minutes 48 seconds Scope Out: 1:25:52 PM Total Procedure Duration Time 0 hours 15 minutes 20 seconds Findings: The perianal and digital rectal examinations were normal. Multiple small and large-mouthed diverticula were found in the recto-sigmoid colon, sigmoid colon and descending colon. An area of mildly congested mucosa was found in the rectum, in the recto-sigmoid colon, in the sigmoid colon, in the descending colon, at the splenic flexure and in the ascending colon. Biopsies were taken with a cold forceps for histology. Verification of patient identification for the specimen was done. Estimated blood loss was minimal. The terminal ileum appeared normal. Biopsies were taken with a cold forceps for histology. Verification of patient identification for the specimen was done. Estimated blood loss was minimal. Impression: - Diverticulosis in the recto-sigmoid colon, in the sigmoid colon and in the descending colon. - Congested mucosa in the rectum, in the recto-sigmoid colon, in the sigmoid colon, in the descending colon, at the splenic flexure and in the ascending colon. Biopsied. - The examined portion of the ileum was normal. Biopsied. Recommendation: - Discharge patient to home. - Resume previous diet. - Continue present medications. - Await pathology results. - Repeat colonoscopy is recommended for surveillance. The colonoscopy date will be determined after pathology results from today's exam become available for review. Procedure Code(s): --- Professional --- 11733, Colonoscopy, flexible; with biopsy, single or multiple CPT copyright 2021 [employer]. All rights reserved. The codes documented in this report are preliminary and upon progressive care nurse review may be revised to meet current compliance requirements. Prem Sanchez DO 06/03/2024 1:36:18 PM This report has been signed electronically. Number of Addenda: 0 Note Initiat (more content not included)... Normal [facility] MR/POSTOP.[facility] 06-03-2024 MR/POSTOP.[facility] Medical Records Department [address] [place] [address] Anesthesia Postop Eval I 06/03/24 1337 MR#: [id number] Acct: [id number] Name: SULEIMAN RAMSEY Rep #: [id number] : 1945 78 From: Elton Pardo PCP: Dr. Benny Bosch MD Status:REG SDC Y Race: C Location: [place] [address] Anesthesia: Postop Eval I Current Vital Signs Temperature: 97.3 F Pulse Rate: 68 Blood Pressure: 77/44 Respiratory Rate: 16 Pulse Ox: 95 Oxygen Delivery Method: Room Air Assessment Airway patent: Yes Spontaneous unlabored respirations: Yes Mental status: Asleep nausea: No Vomiting: No Anesthesia Complication: No Fluid Hydration Crystalloid volume administer (ml): 40 Total IV fluid infused: 40 Progress Note Anesthesia document: Postop Eval 1 completed: Yes 06/03/24 1338 Date Elton Paz Signature: Date CC: Signed Normal [facility] MR/[id number] 06-03-2024 [facility] Medical Records Department [address] [place] [address] Anesthesia Postop Eval II 06/03/241940 MR#: [id number] Acct: [id number] Name: SULEIMAN RAMSEY Rep #: [id number] : 1945 78 From: Yonathan Carr MD PCP: Dr. Benny Bosch MD Status:[facility] Y Race: C Location: [place] Anesthesia Postop Eval I Sum Postop Eval Completion status Anesthesia document: Postop Eval 1 completed: Yes Anesthesia Postop Eval I Summary Anesthesia Postop Eval I Summary: Anesthesia Postop Eval I: Assessment Summary Airway patent Yes 06/03/24 13:38 [email or web address] Spontaneous unlabored Yes 06/03/24 13:38 [email or web address] respirations Mental status Asleep 06/03/24 13:38 [email or web address] nausea No 06/03/24 13:38 [email or web address] Vomiting No 06/03/24 13:38 [email or web address] Anesthesia Postop Eval I: Fluid Summary Crystalloid volume administer 40 06/03/24 13:38 [email or web address] (ml) Colloids volume administered ( ml) Blood Product volume administered (ml) Total IV fluid infused 40 06/03/24 13:38 [email or web address] Anesthesia Postop Eval I: Summary Notes Anesthesia Complication No 06/03/24 13:38 [email or web address] Anesthesia Complication Comment: Post-operative progress note Anesthesia: Postop Eval II Evaluation Mental status: Awake and Calm Pain Level: 0 nausea: No Vomiting: No Complications Anesthesia Complication: No 06/03/241941 Date Yonathan Paz Signature: Date CC: Signed Normal [facility] Surgery Specimen Level Gabriela 06-03-2024 Surgery Specimen Level IV -------- Patient Age/Sex Location Account Attending Physician -------- SULEIMAN RAMSEY 78/F EN [id number] Prem Sanchez DO -------- Specimen: [id number] Received: 06/03/24 Status: MAYELIN Nobles Num: [id number] Spec Type: COLON BX Subm Dr: Prem Sanchez DO HEADER OPERATION: Colonoscopy with biopsy PRE-OP DIAGNOSIS: Diarrhea TISSUE SUBMITTED: A- Terminal ileum biopsy, B- Random colon biopsy -------- MICROSCOPIC DIAGNOSIS A. Terminal ileum, biopsy: Fragments of small intestinal mucosa, no pathologic diagnosis. B. Colon, random biopsy: Fragments of colonic mucosa, no pathologic diagnosis. MARY ELLEN. 06/05/2024 MICROSCOPIC DESCRIPTION Slides are reviewed. GROSS DESCRIPTION A. Received in fixative is one container labeled with the patient's name and designated Terminal ileum biopsy. The specimen consists of two irregular fragments of light [place] soft tissue that in aggregate measure 1.1 x 0.3 x 0.2 cm. The specimen is totally submitted in one cassette. B. Received in fixative is one container labeled with the patient's name and designated Random colon biopsy. The specimen consists of multiple irregular fragments of light [place] soft tissue that in aggregate measure 2.2 x 0.3 x 0.2 cm. The specimen is totally submitted in one cassette. 06/04/2024 TC:4 CPT:69362x3 -------- Patient Age/Sex Location Account Attending Physician -------- SULEIMAN RAMSEY 78/F EN [id number] Prem Sanchez DO -------- Signed (signature on file) Dr. Hernan Horvath MD 06/05/24 1154 -------- Normal [facility] Comment on above: Performed By: #### L 3100.1950 #### [facility] Laboratory [address] [place], [address] /PATJose David 05-30-2024 /PAT.[facility] Medical Records Department [address] [place] [address] PAT - Anesthesia 05/30/24 1604 MR#: [id number] Acct: [id number] Name: SULEIMAN RAMSEY Rep #: [id number] : 1945 78 From: Yonathan Carr MD PCP: Dr. 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 When Was Last Pacemaker Check QUESTION #4 FULL TEXT: You/Your Family Experience fever (hyperthermia) with Anesthesia Last Oral Intake Last Oral intake: Last Oral Intake NPO since Meds taken in AM with sips of water? Meds patient instructed to take am of surgery PONV PONV - instructor apparel manufacture: PONV - instructor apparel manufacture Female Yes 05/30/24 10:44 HX of Motion Sickness No 05/30/24 10:44 HX of N/V After Surgery No 05/30/24 10:44 Non-Smoker Yes 05/30/24 10:44 Duration of Surgery greater No 05/30/24 10:44 than 60 minutes Number of Risk Factors 2 05/30/24 10:44 PONV Score Moderate Risk 05/30/24 10:44 Height Weight Height Weight: Anesthesia: Height Weight Height 5 ft 1 in 03/30/24 13:34 Respiratory Assessment Respiratory Assessment - instructor apparel manufacture: Respiratory Tract Infection Hx - instructor apparel manufacture Hx Respiratory Tract Infection No 05/30/24 10:44 STOP Sleep Apnea STOP Sleep Apnea - instructor apparel manufacture: STOP Sleep Apnea - instructor apparel manufacture Hx Hypertension Yes: CONTROLLED ON MED 05/30/24 10:44 Hx Sleep Apnea No 05/30/24 10:44 CPAP No 05/30/24 10:44 BIPAP No 05/30/24 10:44 Do you snore loudly (louder Yes 05/30/24 10:44 than talking or can be heard Do you often feel tired/ Yes 05/30/24 10:44 fatigued/ sleepy during daytime? Has anyone observed you stop Yes 05/30/24 10:44 breathing during sleep? STOP Results Positive 05/30/24 10:44 QUESTION #5 FULL TEXT : Do you snore loudly (louder than talking or can be heard through closed doors)? 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 Specify any problems Hx of Preganancy in last 3 No 05/30/24 10:44 Months Nurse Filling Out Transfusion MGRIFFITH 05/30/24 10:44 Questions: Date: 05/30/24 05/30/24 10:44 Time: 10:45 05/30/24 10:44 Patient unable to answer at this time (ie. confused, unrespo /Reproduction History /Reproductive History - instructor apparel manufacture: /Reproductive Hx- instructor apparel manufacture Hx Now Gestational Age (in weeks): EDC: Hx Hx Para Hx Section SAB No 05/30/24 10:44 PFSH Medical History Cancer Thyroid disease Diabetes Leg cramps History of neuropathy History of recent fall Fatty liver Restless legs Dietary restriction History of hiatal hernia History of ulceration Abdominal pain Post-menopausal Wears hearing aid Wears glasses Insulin dependent diabetes mellitus High cholesterol Back pain Gastric reflux Former smoker History of echocardiogram History of stress test Hx of corn of toe Hx of dermabrasion Bloating Hypergammaglobulinemia CKD (chronic kidney disease) Hyperlipidemia Cataracts, bilateral Increased urinary frequency Back pain Difficulty balancing Arthritis Thyroid disease Hypertension Home Medications ???Medication ???Instructions ???Recorded ???Last Taken ???Type levothyroxine 150 mcg tablet 150 (more content not included)... Normal [facility] Urine Cultureon 05-28-2024 URC Presumptive E. coli [place] Count >100,000 Presumptive E. coli: REACTION Ampicillin Islt SIMIN >=32 Ampicillin+Sulbac Islt SIMIN >=32 R Cefepime Islt SIMIN <=0.12 S cefTRIAXone Islt SIMIN <=0.25 S Ciprofloxacin Islt SIMIN 0.25 S B-Lactamase Extended Susc Islt NEG Gentamicin Islt SIMIN <=1 S levoFLOXacin Islt SIMIN 0.5 S Meropenem Islt SIMIN <=0.25 S Nitrofurantoin Islt SIMIN <=16 S Pip+Tazo Islt SIMIN <=4 S TMP SMX Islt SIMIN <=20 S Normal [facility] Comment on above: Performed By: #### L 500.4050, L501.2450, L100.0100, L501.5425 #### [facility] [address] [place], [address] Bilirubin Test strip Ql (U)O rdered By: Bee Roldan on 05-26-2024 Bilirubin Ql (U) Negative Negative [facility] Glucose Ql (U)Ordered By: Karan Roldan on 05-26-2024 Urine Glucose (UA) Normal mg/dl Normal [facility] Ketones Test strip Ql (U)Ord ered By: Dustinjacinda Yuli on 05-26-2024 Ketones Ql (U) Negative Negative [facility] Nitrite Test strip Ql (U)Ord ered By: Dustinjacinda Yuli on 05-26-2024 Nitrite Ql (U) Negative Negative [facility] Protein Test strip Ql (U)Ord ered By: Bee Yuli on 05-26-2024 Protein Ql (U) 30 mg/dl High Negative [facility] Urinalysis, Routine (Dipstic k)on 05-26-2024 BILIRUBIN URINE Negative Normal Negative [facility] Comment on above: Order Comment: 1 Y Performed By: #### L 500.4050, L501.2450, L100.0100, L501.5425 #### [facility] [address] [place], [address] Clarity (U) Cloudy Normal Clear [facility] Comment on above: Order Comment: 1 Y Performed By: #### L 500.4050, L501.2450, L100.0100, L501.5425 #### [facility] [address] [place], [address] Color (U) Yellow Normal Yellow [facility] Comment on above: Order Comment: 1 Y Performed By: #### L 500.4050, L501.2450, L100.0100, L501.5425 #### [facility] [address] [place], [address] GLUCOSE, UR Normal Normal Normal [facility] Comment on above: Order Comment: 1 Y Performed By: #### L 500.4050, L501.2450, L100.0100, L501.5425 #### [facility] [address] [place], [address] KETONE UR Negative Normal Negative [facility] Comment on above: Order Comment: 1 Y Performed By: #### L 500.4050, L501.2450, L100.0100, L501.5425 #### [facility] [address] [place], [address] LEUK ESTERASE 500 /ul Abnormal Negative [facility] Comment on above: Order Comment: 1 Y Performed By: #### L 500.4050, L501.2450, L100.0100, L501.5425 #### [facility] [address] [place], [address] Nitrite Ql (U) Negative Normal Negative [facility] Comment on above: Order Comment: 1 Y Performed By: #### L 500.4050, L501.2450, L100.0100, L501.5425 #### [facility] [address] [place], [address] OCCULT BLOOD-UR 25 /ul Abnormal Negative [facility] Comment on above: Order Comment: 1 Y Performed By: #### L 500.4050, L501.2450, L100.0100, L501.5425 #### [facility] [address] [place], [address] pH UR 6.0 Normal 5.0 - 8.0 [facility] Comment on above: Order Comment: 1 Y Performed By: #### L 500.4050, L501.2450, L100.0100, L501.5425 #### [facility] [address] [place], [address] PROT DIPSTX 30 mg/dl Abnormal Negative [facility] Comment on above: Order Comment: 1 Y Performed By: #### L 500.4050, L501.2450, L100.0100, L501.5425 #### [facility] [address] [place], [address] SP.GR. DIPSTX 1.015 Normal 1.002-1.03 0 [facility] Comment on above: Order Comment: 1 Y Performed By: #### L 500.4050, L501.2450, L100.0100, L501.5425 #### [facility] [address] [place], [address] UROBILI Normal Normal Normal [facility] Comment on above: Order Comment: 1 Y Performed By: #### L 500.4050, L501.2450, L100.0100, L501.5425 #### [facility] [address] [place], [address] Urine blood detectionOrdered By: Bee Roldan on 05-26-2024 Urine Occult Blood 25 /ul High Negative [facility] Urine clarityOrdered By: Arlene Roldan on 05-26-2024 Clarity (U) Cloudy Clear [facility] Urine color determinationOrd ered By: Bee Roldan on 05-26-2024 Color (U) Yellow Yellow [facility] Urine cultureOrdered By: Arlene Roldan on 05-26-2024 Bacteria identified Cx Nom (U) Presumptive E. coli Abnormal [facility] Urine leukocyte esterase det ection by dipstickOrdered By: Bee Roldan on 05-26-2024 Leukocyte esterase Test strip Ql (U) 500 /ul High Negative [facility] Urine pHOrdered By: Bee zhu on 05-26-2024 pH (U) 6.0 [pH] 5.0 - 8.0 [facility] Urine specific gravity measu rementOrdered By: Bee Roldan on 05-26-2024 Specific gravity (U) [Rel density] 1.015 1.002-1.03 0 [facility] Urobilinogen Ql (U)Ordered B y: Bee Roldan on 05-26-2024 Urine Urobilinogen Normal mg/dl Normal [facility] Bedside Glucoseon 05-23-2024 FINGERSTICK GLU 217 mg/dL High 74-106 [facility] Comment on above: Result Comment: TANK GEMENT OF PATIENT CARE PER NURSING PROTOCOL Performed By: #### L 500.4050, L501.2450, L100.0100, L501.5425 #### [facility] [address] [place], [address] FINGERSTICK GLU 176 mg/dL High 74-106 [facility] Comment on above: Result Comment: TANK GEMENT OF PATIENT CARE PER NURSING PROTOCOL Performed By: #### L 500.4050, L501.2450, L100.0100, L501.5425 #### [facility] [address] [place], [address] EGD Reporton 05-23-2024 EGD Report [facility] Medical Records Department [address] [place] [address] EGD Report MR#: [id number] Acct: [id number] Name: SULEIMAN RAMSEY Rep #: [id number] : 1945 78 From: Prem Sanchez DO PCP: Dr. Benny Bosch MD Status:[facility] Patient Name: Suleiman Ramsey Procedure Date: 05/23/2024 7:15 AM Date of : 1945 Age: 78 Procedure: Upper GI endoscopy Indications: Epigastric abdominal pain Providers: Prem Sanchez DO Referring MD: Benny Bosch Medicines: Monitored Anesthesia Care Patient Profile: This is a 78 year old female. Refer to note in patient chart for documentation of history and physical. Patient has symptoms of chronic abdominal distention, chronic epigastric abdominal pain and chronic dyspepsia. Complications: No immediate complications. Procedure: Pre-Anesthesia Assessment: - Prior to the procedure, a History and Physical was performed, and patient medications and allergies were reviewed. The patient is competent. The risks and benefits of the procedure and the sedation options and risks were discussed with the patient. All questions were answered and informed consent was obtained. Patient identification and proposed procedure were verified by the physician in the pre-procedure area. Mental Status Examination: alert and oriented. Airway Examination: normal oropharyngeal airway and neck mobility. Respiratory Examination: clear to auscultation. CV Examination: normal. Prophylactic Antibiotics: The patient does not require prophylactic antibiotics. Prior Anticoagulants: The patient has taken no anticoagulant or antiplatelet agents except for NSAID medication. ASA Grade Assessment: III - A patient with severe systemic disease. After reviewing the risks and benefits, the patient was deemed in satisfactory condition to undergo the procedure. The anesthesia plan was to use monitored anesthesia care (MAC). Immediately prior to administration of medications, the patient was re-assessed for adequacy to receive sedatives. The heart rate, respiratory rate, oxygen saturations, blood pressure, adequacy of pulmonary ventilation, and response to care were monitored throughout the procedure. The physical status of the patient was re-assessed after the procedure. After obtaining informed consent, the endoscope was passed under direct vision. Throughout the procedure, the patient's blood pressure, pulse, and oxygen saturations were monitored continuously. The gastroscope was introduced through the mouth, and advanced to the second part of duodenum. The upper GI endoscopy was accomplished without difficulty. The patient tolerated the procedure well. Scope In: 7:27:07 AM Scope Out: 7:30:28 AM Total Procedure Duration Time 0 hours 3 minutes 21 seconds Findings: LA Grade A (one or more mucosal breaks less than 5 mm, not extending between tops of 2 mucosal folds) esophagitis with no bleeding was found 38 to 40 cm from the incisors. Biopsies were taken with a cold forceps for histology. Verification of patient identification for the specimen was done. Estimated blood loss was minimal. Suspect gastroparesis due to absence of peristalsis, patient symptoms and retained gastric contents. Patchy mildly erythematous mucosa without active bleeding and with no stigmata of bleeding was found in the duodenal bulb and in the first portion of the duodenum. Biopsies were taken with a cold forceps for histology. Verification of patient identification for the specimen was done. Estimated blood loss was minimal. Impression: - LA Grade A chronic esophagitis with no bleeding. Biopsied. - Gastroparesis, secondary to diabetes mellitus type II. - Erythematous duodenopathy. Biopsied. Recommendation: - Discharge patient to home. - Resume previous diet. - Continue present medications. - Await pathology results. - Gastric emptying study Procedure Code(s): --- Professional --- 02113, Esophagogastroduodenoscopy, flexible, transoral; with biopsy, single or multiple CPT copyright 2021 [employer]. All rights reserved. The codes documented in this report are preliminary and upon progressive care nurse review may be revised to meet current compliance requirements. Prem Sanchez DO 05/23/2024 7:36:11 AM This report has been signed electronically. Number of Addenda: 0 Note Initiated On: 05/23/2024 7:15 AM 05/23/24735 Date Prem Sanchez DO Cosigner Signature: Date (if indicated) CC: Dr. Benny Bosch MD; Prem Sanchez DO Date Dictated: 05/23/24714 Date Transcribed: Marketing Operations Specialist: JUSTINA Signed Normal [facility] Gl[facility] deOrdered By: Prem Sanchez on 05-23-2024 Bedside Glucose (Misc Panel) 217 mg/dL High 74-106 [facility] Comment on above: MANAGEMENT OF PATIEN T CARE PER NURSING PROTOCOL MR/POSTOP.Elidia 05-23-2024 MR/POSTOP.ASTRID [facility] Medical Records Department [address] [place] [address] Anesthesia Postop Eval I 05/23/24740 MR#: [id number] Acct: [id number] Name: SULEIMAN RAMSEY Rep #: [id number] : 1945 78 From: Elton Pardo PCP: Dr. Benny Bosch MD Status:[facility] Y Race: C Location: [place] [address] Anesthesia: Postop Eval I Current Vital Signs Temperature: 98.1 F Pulse Rate: 76 Blood Pressure: 86/47 Respiratory Rate: 16 Pulse Ox: 97 Oxygen Delivery Method: Room Air Assessment Airway patent: Yes Spontaneous unlabored respirations: Yes Mental status: Asleep nausea: No Vomiting: No Anesthesia Complication: No Fluid Hydration Crystalloid volume administer (ml): 30 Total IV fluid infused: 30 Progress Note Anesthesia document: Postop Eval 1 completed: Yes 05/23/24741 Date Elton Paz Signature: Date CC: Signed Normal [facility] MR/[id number] 05-23-2024 [facility] Medical Records Department [address] [place] [address] Anesthesia Postop Eval II 05/23/24724 MR#: [id number] Acct: [id number] Name: SULEIMAN RAMSEY Rep #: [id number] : 1945 78 From: Ryann Mcdonough PCP: Dr. Benny Bosch MD Status:[facility] Y Race: C Location: [place] Anesthesia Postop Eval I Sum Postop Eval Completion status Anesthesia document: Postop Eval 1 completed: Yes Anesthesia Postop Eval I Summary Anesthesia Postop Eval I Summary: Anesthesia Postop Eval I: Assessment Summary Airway patent Yes 05/23/24 07:42 [email or web address] Spontaneous unlabored Yes 05/23/24 07:42 [email or web address] respirations Mental status Asleep 05/23/24 07:42 [email or web address] nausea No 05/23/24 07:42 [email or web address] Vomiting No 05/23/24 07:42 [email or web address] Anesthesia Postop Eval I: Fluid Summary Crystalloid volume administer 30 05/23/24 07:42 [email or web address] (ml) Colloids volume administered ( ml) Blood Product volume administered (ml) Total IV fluid infused 30 05/23/24 07:42 [email or web address] Anesthesia Postop Eval I: Summary Notes Anesthesia Complication No 05/23/24 07:42 [email or web address] Anesthesia Complication Comment: Post-operative progress note Anesthesia: Postop Eval II Evaluation Mental status: Awake Pain Level: 0 nausea: No Vomiting: No 05/23/24930 Date Ryann Paz Signature: Date CC: Signed Normal [facility] Special Stain Group Ion - Special Stain Group I -------- Patient Age/Sex Location Account Attending Physician -------- SULEIMAN RAMSEY 78/F EN [id number] Prem Sanchez DO -------- Specimen: [id number] Received: 05/23/24 Status: MAYELIN Nobles Num: [id number] Spec Type: EGD BIOPSY Subm Dr: DO ANU Mabry OPERATION: EGD and biopsy PRE-OP DIAGNOSIS: Gastric reflux, abdominal pain TISSUE SUBMITTED: A- Distal esophagus biopsy, B- Duodenum biopsy -------- MICROSCOPIC DIAGNOSIS A. Distal esophagus, biopsy: Fragments of gastroesophageal mucosa with moderate chronic inflammation. Intestinal metaplasia (goblet cell metaplasia) not identified. See comment. B. Duodenum, biopsy: Fragments of duodenal mucosa, no pathologic diagnosis. . 05/26/2024 COMMENT A. Alcian blue/PAS stain with matched control is used in the evaluation of the specimen. MICROSCOPIC DESCRIPTION Slides are reviewed. GROSS DESCRIPTION A. Received in fixative is one container labeled with the patient's name and designated Distal esophagus biopsy. The specimen consists of multiple irregular fragments of light [place] soft tissue that in aggregate measure 1.0 x 0.3 x 0.1 cm. The specimen is totally submitted in one cassette. B. Received in fixative is one container labeled with the patient's name and designated Duodenum biopsy. The specimen consists of two irregular fragments of light [place] soft tissue that in aggregate measure 0.6 x 0.3 x 0.1 cm. The specimen is totally submitted in one cassette. . 05/23/2024 TC:3 CPT:51477x1,39969 -------- Patient Age/Sex Location Account Attending Physician -------- SULEIMAN RAMSEY 78/F EN [id number] Prem Sanchez DO -------- Signed (signature on file) Dr. Hernan Horvath MD 05/26/24 1114 -------- Normal [facility] Comment on above: Performed By: #### P SSI ####[facility] [address] [place], [address] Gastric Emptying Studyon Gastric Emptying Study [facility] Imaging Services [address] [place] [address] Gastric Emptying Study MR#: [id number] Acct: [id number] Name: SULEIMAN RAMSEY Rep #: [id number] : 1945 F 78 From: Teja Langston PCP: Dr. Benny Bosch MD Status: REG CLI Study: Gastric Emptying Study Date of Exam: 05/22/24 Exam# [id number] Ordering Dr: Benny Bosch MD :[id number] CLINICAL: 78-year-old diabetic female with history of abdominal pain. SEMI-SOLID PHASE 99m Tc SULFUR COLLOID GASTRIC EMPTYING STUDY COMPARISON: CT of the abdomen-pelvis report 03/27/2024 FINDINGS: The patient was administered 1.2 mCi of 99m Tc sulfur colloid mixed with oatmeal and consumed per os. Image acquisitions in the anterior-posterior projections were obtained for 60 minutes. There is prompt visualization of the stomach. There is no gastroesophageal reflux identified. First order kinetics are maintained throughout the duration of the acquisitions. The T ? linear fit was extrapolated to be 68.30 minutes, (Normal: 12-56 minutes). NM/Gastric Emptying Study IMPRESSION: 1. ABNORMAL 99m Tc sulfur colloid semi-solid phase (oatmeal) gastric emptying imaging examination. A. There is delayed semi-solid phase gastric emptying compared to normal controls with maintained first order kinetics throughout all components of the examination. Electronically Signed: Teja Zhu DO at 9:15 EST , CC: Dr. Benny Bosch MD Marketing Operations Specialist: Signed Normal [facility] MR/PAT.ANEon 05-21-2024 MR/PAT.ANE [facility] Medical Records Department [address] [place] [address] PAT - Anesthesia 05/21/24 1357 MR#: [id number] Acct: [id number] Name: SULEIMAN RAMSEY Rep #: [id number] : 1945 78 From: Mateusz Bradley MD PCP: Dr. 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 When Was Last Pacemaker Check QUESTION #4 FULL TEXT: You/Your Family Experience fever (hyperthermia) with Anesthesia Last Oral Intake Last Oral intake: Last Oral Intake NPO since Meds taken in AM with sips of water? Meds patient instructed to take am of surgery PONV PONV - instructor apparel manufacture: PONV - instructor apparel manufacture Female Yes 05/21/24 12:26 HX of Motion Sickness No 05/21/24 12:26 HX of N/V After Surgery No 05/21/24 12:26 Non-Smoker Yes 05/21/24 12:26 Duration of Surgery greater No 05/21/24 12:26 than 60 minutes Number of Risk Factors 2 05/21/24 12:26 PONV Score Moderate Risk 05/21/24 12:26 Height Weight Height Weight: Anesthesia: Height Weight Height 5 ft 1 in 05/21/24 12:26 Weight: 73.549 kg 05/21/24 12:26 Body Mass Index (BMI) 30.6 05/21/24 12:26 Respiratory Assessment Respiratory Assessment - instructor apparel manufacture: Respiratory Tract Infection Hx - instructor apparel manufacture Hx Respiratory Tract Infection No 05/21/24 12:26 STOP Sleep Apnea STOP Sleep Apnea - instructor apparel manufacture: STOP Sleep Apnea - instructor apparel manufacture Hx Hypertension Yes: CONTROLLED ON MED 05/21/24 12:26 Hx Sleep Apnea No 05/21/24 12:26 CPAP No 05/21/24 12:26 BIPAP No 05/21/24 12:26 Do you snore loudly (louder No 05/21/24 12:26 than talking or can be heard Do you often feel tired/ No 05/21/24 12:26 fatigued/ sleepy during daytime? Has anyone observed you stop No 05/21/24 12:26 breathing during sleep? STOP Results Negative 05/21/24 12:26 QUESTION #5 FULL TEXT : Do you snore loudly (louder than talking or can be heard through closed doors)? 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 Specify any problems Hx of Preganancy in last 3 No 05/21/24 12:26 Months Nurse Filling Out Transfusion VCHRISTIN 05/21/24 12:26 Questions: Date: 05/21/24 05/21/24 12:26 Time: 12:27 05/21/24 12:26 Patient unable to answer at this time (ie. confused, unrespo /Reproduction History /Reproductive History - instructor apparel manufacture: /Reproductive Hx- instructor apparel manufacture Hx Now No 05/21/24 12:26 Gestational Age (in weeks): EDC: Hx Hx Para Hx Section SAB No 05/21/24 12:26 [facility] Medical History (Updated 05/21/24 @ 12:26 by Hollie Walls) Cancer Thyroid disease Diabetes Leg cramps History of neuropathy History of recent fall Fatty liver Restless legs Dietary restriction History of hiatal hernia History of ulceration Abdominal pain Post-menopausal Wears hearing aid Wears glasses Insulin dependent diabetes mellitus High cholesterol Back pain Gastric reflux Former smoker History of echocardiogram History of stress test Hx of corn of toe Hx of dermabrasion Bloating Hypergammaglobulinemia CKD (chronic kidney disease) Hyperlipidemia Cataracts, bilateral Increased urinary frequency Back pain Difficulty balancing Arthritis Thyroid disease Hypertension Home Medications ???Medication ??? (more content not included)... Normal [facility] Neurology Visit Reporton Neurology Visit Report [facility] [address] [place] [address] OFFICE VISIT Date of Service: 05/13/24 MR#: [id number] Acct: [id number] Name: SULEIMAN RAMSEY Rep #: [id number] : 1945 Provider: Dr. Cong wilson MD Age/Sex: 78/F Location: [facility] Status: Signed HPI HPI Chief Complaint: Details: Interim History: Suleiman returns for follow-up visit. She has a history of hypertension, diabetes mellitus, hypothyroidism, osteopenia hyperlipidemia and breast cancer (status post right mastectomy and radiation therapy earlier in 2022). She has been experiencing burning pain in the feet since around 2015. This had worsened over time. Her symptoms are worse at night. She has numbness in the feet. She has chronic low back pain; she is not experiencing pain in the extremities radiating from the lower back. On evaluation with a lumbar MRI, she was found to have moderate central canal stenosis at L3-4 and multilevel neuroforaminal narrowing. She underwent lumbar decompressive surgery in 2019; this was not of significant benefit for her pain. Pregabalin 200 mg twice daily (200 mg 3 times daily was not of added benefit) has been of moderate benefit for her neuropathic pain. Pregabalin has been well-tolerated. The addition of duloxetine has been of benefit in reducing her neuropathic pain. Gabapentin, (caused gait imbalance), nortriptyline and amitriptyline were not well-tolerated. She reported having difficulties standing or walking for extended periods of time due to her pain. She denied having neck pain, weakness, dizziness, headaches or vision change. She has chronic hearing loss and uses bilateral hearing aids. She reported having intermittent numbness and tingling in the hands and this is most prominent when she awakens in the morning. Bengay, Vicks rub and other topical products have been of transient benefit for her neuropathic pain in the feet however these formulations commonly lose efficacy after a period of use. She has been diagnosed in the past with right carpal tunnel syndrome. She did not pursue carpal tunnel surgery. She had a left ulnar fracture in 2021 for which she had surgery. Wrist splints were not of benefit. EMG/nerve conduction studies of the lower extremities were unremarkable. Skin biopsy to assess for small fiber polyneuropathy revealed significantly reduced epidural nerve fiber density consistent with small fiber neuropathy at the left calf and left foot biopsy sites. She has fatigue. A B12 1000 mcg IM injection was not of significant benefit for her fatigue. B12 1500 mcg IM was of initial benefit for her fatigue however this treatment then lost efficacy. Alpha lipoic acid (600 mg every morning and 1200 mg every evening) was not of benefit for her neuropathic pain. Physical Exam: Neuro: The patient is awake and alert and responds appropriately; speech is fluent; motor strength is 5/5 in the foot dorsiflexors bilaterally Neck: No bruits Heart: Regular rhythm and rate Supplemental Info Pelvic and left hip x-rays (04/16/2018): FINDINGS: There is a non-specific bowel gas pattern. There are atherosclerotic vascular calcifications of the pelvic arteries. Mild degenerative changes suggested in the visualized lower lumbar spine. Normal bilateral iliac wings, sacroiliac joints and visualized sacrum. Normal bilateral superior and inferior pubic rami. Normal pubic symphysis. Normal bilateral ischial tuberosities. There is no demonstrated osseous destructive lesion or acute fracture. Normal visualized femoral head. Normal acetabulum. Normal hip joint. IMPRESSION: Stable mild degenerative changes suggested in the visualized lower lumbar spine, otherwise normal x-ray examination of the pelvis and left hip. Atherosclerotic vascular calcifications again noted. Lumbar MRI (01/16/2019): COMPARISON: 09/28/2017 MRI lumbar spine. FINDINGS: No fracture or acute signal changes in the vertebrae or disks. Multilevel disc desiccation, and degenerative endplate signal changes and irregularity, most prominent at L3-4 and L5-S1, similar to previous. Alignment remains anatomic. Conus terminates at the level of the middle to vertebral body with normal contour and signal. Thecal sac terminates at the S1-S2 level. No acute or concerning findings in the paraspinal soft tissues. At T12-L1, small diffuse disc bulge and central protrusion with mild bilateral facet degeneration causes only mild narrowing, similar to previous. At L1-2, small diffuse disc bulge and mild bilateral facet degeneration causes only mild narrowing with no evidence of nerve root impingement, similar to previous. At L2-3, moderate diffuse disc bulge and moderate bilateral facet degeneration causes mild narrowing of the bilateral subarticular zones and foramina, disc abuts but does not displace the traversing bilateral L3 nerve roots. Thi (more content not included)... Normal [facility] Gastroenterology Visit Repor ton 05-02-2024 Gastroenterology Visit Report [facility] Gastroenterology [address] [place] [address] OFFICE VISIT Date of Service: 05/02/24 MR#: [id number] Acct: [id number] Name: SULEIMAN RAMSEY Rep #: [id number] : 1945 Provider: NOVA Ruiz Age/Sex: 78/F Location: [facility] [email or web address] Status: Signed Intake Vital Signs 04/24/24 10:29 Height 5 ft 1 in Intake Visit Reasons: Hospital FU Chief Complaint: abd pain Allergies gabapentin Adverse Reaction (Severe, Verified 04/24/24 10:28) Other Medications ???Medication ???Instructions ???Recorded ???Confirmed ???Type levothyroxine 150 mcg tablet 150 mcg PO DAILY 12/03/14 05/02/24 History blood sugar diagnostic #100 ea 01/24/19 06/28/23 History blood-glucose meter #1 ea 01/24/19 06/28/23 History metformin 500 mg tablet,extended 2,000 mg PO QHS #360 tabs 01/24/19 05/02/24 History release 24 hr insulin glargine U-300 conc 300 70 unit subcut 1730 02/14/21 04/02/24 History unit/mL (1.5 mL) subcutaneous pen (Tousloan SoloStar U-300 Insulin) ibuprofen 400 mg tablet 400 mg PO Q6H PRN Pain 03/08/22 05/02/24 History olmesartan 20 mg tablet (Benicar) 40 mg PO DAILY 11/15/22 05/02/24 History cholecalciferol (vitamin D3) 50 50 mcg PO DAILY 11/27/22 05/02/24 History mcg (2,000 unit) capsule diphenhydramine HCl 25 mg capsule 25 mg PO QHS PRN 11/27/22 05/02/24 History (Benadryl) magnesium oxide 1,600 mg PO DAILY 11/27/22 05/02/24 History rosuvastatin 20 mg tablet 20 mg PO DAILY 11/27/22 05/02/24 History Bilateral wrist splints #2 ea 12/21/22 06/28/23 Rx anastrozole 1 mg tablet 1 mg PO DAILY 10/05/23 05/02/24 History insulin lispro 100 unit/mL 40 unit subcut DINNER 04/02/24 04/02/24 History subcutaneous half-unit pen (Humalog Alec JuleePen (U-100)) omeprazole 40 mg capsule,delayed 40 mg PO BID abdominal pain #44 04/02/24 05/02/24 Rx release caps semaglutide 1 mg/dose (4 mg/3 mL) 1 mg subcut QWEEK 04/02/24 05/02/24 History subcutaneous pen injector (Ozempic) ondansetron HCl 4 mg tablet 4 mg PO Q8H #20 tabs 04/07/24 05/02/24 Rx pregabalin 200 mg capsule (Lyrica) 200 mg PO BID #180 caps 04/24/24 05/02/24 Rx duloxetine 60 mg capsule,delayed 60 mg PO QHS 05/02/24 History release Is last menstrual period known: No Patient : No Have you fallen in the past year?: No Nurse's Note: OV 05.02.24 Pt here for f/u from hospital and reports nausea, gas, bloating, and diarrhea. Pt continues taking omeprazole daily and finds it is helping. [facility] Medical History History of recent fall Fatty liver Restless legs Dietary restriction History of hiatal hernia History of ulceration Abdominal pain Post-menopausal Wears hearing aid Wears glasses Insulin dependent diabetes mellitus High cholesterol Back pain Gastric reflux Former smoker History of echocardiogram History of stress test Hx of corn of toe Hx of dermabrasion Bloating Hypergammaglobulinemia CKD (chronic kidney disease) Hyperlipidemia Cataracts, bilateral Increased urinary frequency Back pain Difficulty balancing Arthritis Thyroid disease Hypertension Surgical History History of right breast biopsy ( 11/2022) S/P ORIF (open reduction internal fixation) fracture Hx of arthroscopic knee surgery Hx of tubal ligation Family History Father Cancer lung/liver/pancreas Myocardial infarction Heart disease Grandfather Rectal cancer paternal Social History Smoking Status: Former smoker alcohol intake: never HPI HPI Chief Complaint: abd pain Details: SULEIMAN RAMSEY, is a 78 F who presents to the office today for f/u. [facility]GI established 02.14.21 EGD .06.04; - LA Grade A reflux esophagitis. Biopsied. - Non-obstructing Schatzki ring. - Non-obstructing non-bleeding gastric ulcer with no stigmata of bleeding. Biopsied. OV 04.02.24 w/ epigastric pain, nausea and 5lbs weight loss for one week. Hx of H. pylori infection. Started ozempic prior to symptom start. Increased omeprazole to 40 mg BID. EGD scheduled [facility] ED 04.24.24 visit after presenting to PCP with chest pain. Work up negative for cardiac etiology. GI cocktail resolved symptoms Discharged. OV 05.02.24 Here today for f/u after ED visit. Pt daughter is here with her today and helps provide hx. Her epigastric pain is better while on twice a day PPI but not completely resolved. She continues to have pain with eating. She has only been able to eat soups and nutritional drinks. She is now also having diarrhea after she eats any food.PCP recently ordered GES. ROS Const Constitutional: Positiv (more content not included)... Normal [facility] 12 Lead EKGon 04-24-2024 12 Lead EKG [facility] Cardiovascular Services [address] [place] [address] 12 Lead EKG 04/24/24 1027 MR#: [id number] Acct: [id number] Name: SULEIMAN RAMSEY Rep #: [id number] : 1945 78 From: Gold Farmer MD Attending Dr: Status: DEP ER Ordering Dr: Stacey Ward Date: 04/24/24 Location: ED Sex: F C Admitted: Test Reason : POST CHEST PAIN Blood Pressure : */* mmHG Vent. Rate : 81 BPM Atrial Rate : 81 BPM P-R Int : 228 ms QRS Dur : 136 ms QT Int : 388 ms P-R-T Axes : 42 -23 125 degrees QTcB Int : 450 ms Sinus rhythm with 1st degree A-V block Left bundle branch block Abnormal ECG Confirmed by JONEL ULRICH, GOLD ([id number]), editor sound BRITTANY RENAE ([id number]) on 04/30/2024 1:19:28 PM Referred By: MASOUD/RASHMI Confirmed By: GOLD FARMER MD 04/30/24 1319 Date Gold Farmer MD CC: Dr. Hector Manzano DO; Dr. Benny Bosch MD; NOVA Max Signed Normal [facility] Absolute neutrophil countOrd ered By: Stacey Ward on 04-24-2024 Neutrophils (Bld) [#/Vol] 8.6 10*3/uL High 2.0-7.7 [facility] Albumin to globulin ratioOrd ered By: Stacey Ward on 04-24-2024 Albumin/Globulin [Mass ratio] 0.7 {ratio} Low 0.9-2.4 [facility] Basophil percentageOrdered B y: Stacey Ward on 04-24-2024 Basophils/100 WBC (Bld) 1.1 % High 0-1 [facility] Bilirubin, totalOrdered By: Stacey Ward on 04-24-2024 Bilirubin [Mass/Vol] 0.70 mg/dL 0.20-1.00 [facility] Comment on above: For patients on eltr ombopag therapy, use of Dimension [place] TBIL is not recommended. Blood urea nitrogen (BUN)/cr eatinine ratioOrdered By: Stacey Ward on 04-24-2024 Urea nitrogen/Creatinine [Mass ratio] 15.3 mg/mg 10-20 [facility] CBC W/Diff, Automatedon 04-13 Absolute Lymph 2.41 X10 3/uL Normal 0.83-4.51 [facility] Comment on above: Performed By: #### L 500.4050, L501.2450, L100.0100, L501.5425 #### [facility] [address] [place], [id number] Absolute Neut 8.6 X10 3/uL High 2.0-7.7 [facility] Comment on above: Performed By: #### L 500.4050, L501.2450, L100.0100, L501.5425 #### [facility] [address] [place], [address] Basophils/100 WBC (Bld) 1.1 % High 0-1 [facility] Comment on above: Performed By: #### L 500.4050, L501.2450, L100.0100, L501.5425 #### [facility] [address] [place], [id number] Eosinophils/100 WBC (Bld) 8.5 % High 0-5 [facility] Comment on above: Performed By: #### L 500.4050, L501.2450, L100.0100, L501.5425 #### [facility] [address] [place], [address] Erythrocyte distribution width (RBC) [Ratio] 13.6 % Normal 11.6-14.6 [facility] Comment on above: Performed By: #### L 500.4050, L501.2450, L100.0100, L501.5425 #### [facility] [address] [place], [address] Hematocrit (Bld) [Volume fraction] 40.8 % Normal 37-47 [facility] Comment on above: Performed By: #### L 500.4050, L501.2450, L100.0100, L501.5425 #### [facility] [address] [place], [address] Hemoglobin (Bld) [Mass/Vol] 13.5 g/dL Normal 12.0-15.0 [facility] Comment on above: Performed By: #### L 500.4050, L501.2450, L100.0100, L501.5425 #### [facility] [address] [place], [address] IG% 0.500 Normal 0.0-0.9 [facility] Comment on above: Result Comment: IG% - Immature Granulocytes (promyelocytes, myelocytes and metamyelocytes) > 1% indicates that a LEFT SHIFT is Present. Performed By: #### L 500.4050, L501.2450, L100.0100, L501.5425 #### [facility] [address] [place], [address] Lymphocytes/100 WBC (Bld) 18.4 % Low 19-41 [facility] Comment on above: Performed By: #### L 500.4050, L501.2450, L100.0100, L501.5425 #### [facility] [address] [place], [address] MCH (RBC) [Entitic mass] 29.5 pg Normal 27.0-32.0 [facility] Comment on above: Performed By: #### L 500.4050, L501.2450, L100.0100, L501.5425 #### [facility] [address] [place], [address] MCHC (RBC) [Mass/Vol] 33.1 g/dL Normal 32-36 [facility] Comment on above: Performed By: #### L 500.4050, L501.2450, L100.0100, L501.5425 #### [facility] [address] [place], [address] MCV (RBC) [Entitic vol] 89.3 fL Normal 81-99 [facility] Comment on above: Performed By: #### L 500.4050, L501.2450, L100.0100, L501.5425 #### [facility] [address] [place], [address] Monocytes/100 WBC (Bld) 6.5 % Normal 0-10 [facility] Comment on above: Performed By: #### L 500.4050, L501.2450, L100.0100, L501.5425 #### [facility] [address] [place], [address] Neutrophils/100 WBC (Bld) 65.0 % Normal 47-70 [facility] Comment on above: Performed By: #### L 500.4050, L501.2450, L100.0100, L501.5425 #### [facility] [address] [place], [address] Nucleated RBC (Bld) [#/Vol] 0 10*3/uL Normal 0-5 [facility] Comment on above: Performed By: #### L 500.4050, L501.2450, L100.0100, L501.5425 #### [facility] [address] [place], [address] Platelet mean volume (Bld) [Entitic vol] 10.3 fL Normal 6.2-12.0 [facility] Comment on above: Performed By: #### L 500.4050, L501.2450, L100.0100, L501.5425 #### [facility] [address] [place], [address] Platelets (Bld) [#/Vol] 364 10*3/uL Normal 150-450 [facility] Comment on above: Performed By: #### L 500.4050, L501.2450, L100.0100, L501.5425 #### [facility] [address] [place], [address] RBC (Bld) [#/Vol] 4.57 10*6/uL Normal 4.2-5.4 [facility] Comment on above: Performed By: #### L 500.4050, L501.2450, L100.0100, L501.5425 #### [facility] [address] [place], [address] RDW SD 44.3 fl High 35.1-43.9 [facility] Comment on above: Performed By: #### L 500.4050, L501.2450, L100.0100, L501.5425 #### [facility] [address] [place], [address] WBC (Bld) [#/Vol] 13.1 10*3/uL High 4.4-11.0 [facility] Comment on above: Performed By: #### L 500.4050, L501.2450, L100.0100, L501.5425 #### [facility] [address] [place], [address] Carbon dioxide measurementOr dered By: Stacey Ward on 04-24-2024 CO2 [Moles/Vol] 27.0 mmol/L 21.0-32.0 [facility] Chest PA and Lateralon 04-24 Chest PA and Lateral [facility] Imaging Services [address] [place] [address] Chest PA and Lateral MR#: [id number] Acct: [id number] Name: SULEIMAN RAMSEY Rep #: [id number] : 1945 F 78 From: Tabatha kendall MD PCP: Dr. Benny Bosch MD Status: [facility] ER Study: Chest PA and Lateral Date of Exam: 04/24/24 Exam# [id number] Ordering Dr: Stacey Ward :[id number] HISTORY: chest pain. TECHNIQUE: XR Chest 2 Views. COMPARISON: 03/09/2022. FINDINGS: CARDIOMEDIASTINAL BORDERS: Mediastinal contour also unchanged with calcified subcarinal lymph nodes. LUNGS: Mild linear opacities in the right mid and left lower lung. PLEURA: No pleural effusion or pneumothorax seen. OSSEOUS STRUCTURES: Mild degenerative change. Surgical clips in the right axilla. RAD/Chest PA and Lateral IMPRESSION: Mild atelectasis or inflammation in the right mid and left lower lung. Electronically Signed: Tabatha Campos MD at 12:41 EST , CC: Dr. Benny Bosch MD; NOVA Max Marketing Operations Specialist: Signed Normal [facility] Chloride measurementOrdered By: Stacey Ward on 04-24-2024 Chloride [Moles/Vol] 95 mmol/L Low 98-107 [facility] Comprehensive Metabolic Prof ilon 04-24-2024 Albumin [Mass/Vol] 3.6 g/dL Normal 3.2-5.0 [facility] Comment on above: Order Comment: 1 Y Performed By: #### L 500.4050, L501.2450, L100.0100, L501.5425 #### [facility] [address] [place], [address] Albumin/Globulin [Mass ratio] 0.7 {ratio} Low 0.9-2.4 [facility] Comment on above: Order Comment: 1 Y Performed By: #### L 500.4050, L501.2450, L100.0100, L501.5425 #### [facility] [address] [place], [address] ALK P 97 U/L Normal 45-117 [facility] Comment on above: Order Comment: 1 Y Performed By: #### L 500.4050, L501.2450, L100.0100, L501.5425 #### [facility] [address] [place], [address] ALT [Catalytic activity/Vol] 17 U/L Normal 13-56 [facility] Comment on above: Order Comment: 1 Y Performed By: #### L 500.4050, L501.2450, L100.0100, L501.5425 #### [facility] [address] [place], [id number] AST [Catalytic activity/Vol] 31 U/L Normal 15-37 [facility] Comment on above: Order Comment: 1 Y Performed By: #### L 500.4050, L501.2450, L100.0100, L501.5425 #### [facility] [address] [place], [id number] Bilirubin [Mass/Vol] 0.70 mg/dL Normal 0.20-1.00 [facility] Comment on above: Order Comment: 1 Y Result Comment: For patients on eltrombopag therapy, use of Dimension [place] TBIL is not recommended. Performed By: #### L 500.4050, L501.2450, L100.0100, L501.5425 #### [facility] [address] [place], [id number] BUN/CRE 15.3 RATIO Normal 10-20 [facility] Comment on above: Order Comment: 1 Y Performed By: #### L 500.4050, L501.2450, L100.0100, L501.5425 #### [facility] [address] [place], [id number] CA,Total 11.8 mg/dL High 8.5-10.1 [facility] Comment on above: Order Comment: 1 Y Performed By: #### L 500.4050, L501.2450, L100.0100, L501.5425 #### [facility] [address] [place], [id number] Chloride [Moles/Vol] 95 mmol/L Low 98-107 [facility] Comment on above: Order Comment: 1 Y Performed By: #### L 500.4050, L501.2450, L100.0100, L501.5425 #### [facility] [address] [place], [address] CO2 [Moles/Vol] 27.0 mmol/L Normal 21.0-32.0 [facility] Comment on above: Order Comment: 1 Y Performed By: #### L 500.4050, L501.2450, L100.0100, L501.5425 #### [facility] [address] [place], [address] Creatinine [Mass/Vol] 1.11 mg/dL High 0.55-1.02 [facility] Comment on above: Order Comment: 1 Y Result Comment: The validity of the calculated GFR GFRAA in patients over 70 years has not been determined. Clinical correlation is essential. Performed By: #### L 500.4050, L501.2450, L100.0100, L501.5425 #### [facility] [address] [place], [address] ECRCL 38.83 ml/min Normal [facility] Comment on above: Order Comment: 1 Y Performed By: #### L 500.4050, L501.2450, L100.0100, L501.5425 #### [facility] [address] [place], [address] EST GFR - AA 61 mL/min Normal >60 [facility] Comment on above: Order Comment: 1 Y Result Comment: Afri can Swiss GFR Calc Performed By: #### L 500.4050, L501.2450, L100.0100, L501.5425 #### [facility] [address] [place], [address] GAP 12 Normal 5-15 [facility] Comment on above: Order Comment: 1 Y Performed By: #### L 500.4050, L501.2450, L100.0100, L501.5425 #### [facility] [address] [place], [address] GFR/1.73 sq M.predicted among non-blacks MDRD (S/P/Bld) [Vol rate/Area] 51 mL/min/{1.73_m2} Low >60 [facility] Comment on above: Order Comment: 1 Y Result Comment: Non- GFR Calc Performed By: #### L 500.4050, L501.2450, L100.0100, L501.5425 #### [facility] [address] [place], [address] Globulin (S) [Mass/Vol] 5.4 g/dL High 2.2-4.2 [facility] Comment on above: Order Comment: 1 Y Performed By: #### L 500.4050, L501.2450, L100.0100, L501.5425 #### [facility] [address] [place], [address] Glucose [Mass/Vol] 129 mg/dL High 74-106 [facility] Comment on above: Order Comment: 1 Y Result Comment: Fast ing Glucose result greater than or equal to 126 mg/dL suggests DIABETES MELLITUS per A.D.A. criteria. Performed By: #### L 500.4050, L501.2450, L100.0100, L501.5425 #### [facility] [address] [place], [address] Potassium [Moles/Vol] 4.0 mmol/L Normal 3.5-5.1 [facility] Comment on above: Order Comment: 1 Y Performed By: #### L 500.4050, L501.2450, L100.0100, L501.5425 #### [facility] [address] [place], [address] Sodium [Moles/Vol] 134 mmol/L Low 136-145 [facility] Comment on above: Order Comment: 1 Y Performed By: #### L 500.4050, L501.2450, L100.0100, L501.5425 #### [facility] [address] [place], [address] T PROT 9.0 g/dL High 6.4-8.2 [facility] Comment on above: Order Comment: 1 Y Performed By: #### L 500.4050, L501.2450, L100.0100, L501.5425 #### [facility] [address] [place], [address] Urea nitrogen [Mass/Vol] 17 mg/dL Normal 7-18 [facility] Comment on above: Order Comment: 1 Y Performed By: #### L 500.4050, L501.2450, L100.0100, L501.5425 #### [facility] [address] [place], [address] Emergency Department Summary on 04-24-2024 Emergency Department Summary [facility] Medical Records Department [address] [place] [address] Emergency Department Summary 04/24/24 MR#: [id number] Acct: [id number] Name: SULEIMAN RAMSEY Rep #: [id number] : 1945 78 From: Stacey BHATT PCP: Dr. Benny Bosch MD Status:DEP ER Location: ED HPI History of Present Illness Chief Complaint: Chest Pain Narrative Narrative: Patient presenting today with substernal chest pressure/burning that started this morning and resolved. She reports that she has had upper abdominal pain over the past 6 weeks, her pain today is unchanged. She has been evaluated for this abdominal pain in the past, she reports that her PCP thinks this is likely a gastric ulcer and she was taking omeprazole which did provide some relief, especially after the dose was increased when she was here in the ED for evaluation. However, she ran out of her omeprazole 4 days ago and has noticed her pain has been worse over the last 4 days and describes it as a burning sensation with gastric reflux. She is having regular bowel movements, her last was this morning. She denies any history of previous abdominal surgery. She has intermittent nausea but denies vomiting, diarrhea, blood in the stool, and urinary symptoms. She denies any significant cardiac history. She has a PMH of T2DM, HTN, GERD, HLD. PE Risk Factors: Negative for Recent Immobilization or Prior DVT or PE [facility] Medical History History of recent fall Fatty liver Restless legs Dietary restriction History of hiatal hernia History of ulceration Abdominal pain Post-menopausal Wears hearing aid Wears glasses Insulin dependent diabetes mellitus High cholesterol Back pain Gastric reflux Former smoker History of echocardiogram History of stress test Hx of corn of toe Hx of dermabrasion Bloating Hypergammaglobulinemia CKD (chronic kidney disease) Hyperlipidemia Cataracts, bilateral Increased urinary frequency Back pain Difficulty balancing Arthritis Thyroid disease Hypertension Home Medications ???Medication ???Instructions ???Recorded ???Last Taken ???Type levothyroxine 150 mcg tablet 150 mcg PO DAILY 12/03/14 03/16/22 History blood sugar diagnostic #100 ea 01/24/19 03/15/22 History blood-glucose meter #1 ea 01/24/19 03/15/22 History metformin 500 mg tablet,extended 2,000 mg PO QHS #360 tabs 01/24/19 03/15/22 History release 24 hr insulin glargine U-300 conc 300 70 unit subcut 1730 02/14/21 03/15/22 History unit/mL (1.5 mL) subcutaneous pen 35 UNITS (Toujeo SoloStar U-300 Insulin) ibuprofen 400 mg tablet 400 mg PO Q6H PRN Pain 03/08/22 03/15/22 History olmesartan 20 mg tablet (Benicar) 40 mg PO DAILY 11/15/22 Unknown History cholecalciferol (vitamin D3) 50 50 mcg PO DAILY 11/27/22 Unknown History mcg (2,000 unit) capsule diphenhydramine HCl 25 mg capsule 25 mg PO QHS PRN 11/27/22 Unknown History (Benadryl) magnesium oxide 1,600 mg PO DAILY 11/27/22 Unknown History rosuvastatin 20 mg tablet 20 mg PO DAILY 11/27/22 Unknown History Bilateral wrist splints #2 ea 12/21/22 Unknown Rx duloxetine 60 mg capsule,delayed 60 mg PO QHS #90 caps 10/04/23 Unknown Rx release pregabalin 200 mg capsule (Lyrica) 200 mg PO BID #180 caps 10/04/23 Unknown Rx anastrozole 1 mg tablet 1 mg PO DAILY 10/05/23 Unknown History insulin lispro 100 unit/mL 40 unit subcut DINNER 04/02/24 Unknown History subcutaneous half-unit pen (Humalog Alec Abrahan (U-100)) omeprazole 40 mg capsule,delayed 40 mg PO BID abdominal pain #44 04/02/24 Unknown Rx release caps semaglutide 1 mg/dose (4 mg/3 mL) 1 mg subcut QWEEK 04/02/24 Unknown History subcutaneous pen injector (Ozempic) ondansetron HCl 4 mg tablet 4 mg PO Q8H #20 tabs 04/07/24 Unknown Rx Allergy/AdvReac Type Severity Reaction Status Date / Time gabapentin AdvReac Severe Other Verified 04/24/24 10:28 Family History Father Cancer lung/liver/pancreas Myocardial infarction Heart disease Grandfather Rectal cancer paternal Surgical History History of right breast biopsy ( 11/2022) S/P ORIF (open reduction internal fixation) fracture Hx of arthroscopic knee surgery Hx of tubal ligation Social History Smoking Status: Former smoker alcohol intake: never ROS ROS ED Constitutional Constitutional ED: Denies chills or fever(s) Cardiovascular Cardiovascular: Reports chest pain; Denies palpitations Respiratory/Chest Respiratory/Chest: Denies cough or dyspnea Gastrointestinal Gastrointestinal: Reports abdominal pain and nausea; Denies constipatio (more content not included)... Normal [facility] Eosinophil percentageOrdered By: Stacey Ward on 04-24-2024 Eosinophils/100 WBC (Bld) 8.5 % High 0-5 [facility] Erythrocyte distribution wid th ratioOrdered By: Stacey Wadr on 04-24-2024 Erythrocyte distribution width (RBC) [Ratio] 13.6 % 11.6-14.6 [facility] Erythrocyte distribution wid th standard deviationOrdered By: Stacey Ward on 04-24-2024 Erythrocyte distribution width (RBC) [Entitic vol] 44.3 fL High 35.1-43.9 [facility] Estimated glomerular filtrat ion rate (GFR) AmericanOrdered By: Stacey Ward on 04-24-2024 Estimated GFR (MDRD) Amer 61 mL/min >60 [facility] Comment on above: GFR Calc Estimation of creatinine maria del carmen aranceOrdered By: Stacey Ward on 04-24-2024 Estimated Creatinine Clearance Calc 38.83 ml/min [facility] Glomerular filtration rate ( GFR) estimationOrdered By: Stacey Ward on 04-24-2024 Estimated GFR (MDRD) Non-Af Amer 51 mL/min Low >60 [facility] Comment on above: Non- GFR Calc Glucose measurementOrdered B y: Stacey Ward on 04-24-2024 Glucose [Mass/Vol] 129 mg/dL High 74-106 [facility] Comment on above: Fasting Glucose resu lt greater than or equal to 126 mg/dL suggests DIABETES MELLITUS per A.D.A. criteria. Hematocrit Auto (Bld) [Volum e fraction]Ordered By: Stacey Ward on 04-24-2024 Hematocrit (Bld) [Volume fraction] 40.8 % 37-47 [facility] Hemoglobin measurementOrdere d By: Stacey Ward on 04-24-2024 Hemoglobin (Bld) [Mass/Vol] 13.5 g/dL 12.0-15.0 [facility] Immature granulocytes/100 WB C Auto (Bld)Ordered By: Stacey Ward on 04-24-2024 Immature granulocytes/100 WBC (Bld) 0.500 % 0.0-0.9 [facility] Comment on above: IG% - Immature Granu locytes (promyelocytes, myelocytes and metamyelocytes) > 1% indicates that a LEFT SHIFT is Present. L501.4020on 04-24-2024 TROPONIN-I HS 40 pg/mL Normal 3.0-54.0 [facility] Comment on above: Result Comment: Plea se Note: New Test Units and Gender Specific Reference Ranges. For more information see Policy Stat Procedure [place] High Sensitivity Troponin (TNIH) and attachments. Performed By: #### L 500.4050, L501.2450, L100.0100, L501.5425 #### [facility] [address] [place], [address] L501.5425on 04-24-2024 TROPONIN-I HS 43 pg/mL Normal 3.0-54.0 [facility] Comment on above: Order Comment: 1 Y Result Comment: Plea se Note: New Test Units and Gender Specific Reference Ranges. For more information see Policy Stat Procedure [place] High Sensitivity Troponin (TNIH) and attachments. Performed By: #### L 500.4050, L501.2450, L100.0100, L501.5425 #### [facility] [address] [place], [address] Laboratory - Chemistry and C hemistry - challengeOrdered By: Stacey Ward on 04-24-2024 AST [Catalytic activity/Vol] 31 U/L 15-37 [facility] Lipaseon 04-24-2024 Lipase [Catalytic activity/Vol] 41 U/L Normal 13-75 [facility] Comment on above: Order Comment: 1 Y Result Comment: Plegerald garcia note: LIPASE revised reference range effective 22. New Lipase methodology. Expected to produce lower values than the previous assay method. NEW Reference Range: 13 - 75 U/L Performed By: #### L 500.4050, L501.2450, L100.0100, L501.5425 #### [facility] [address] [place], [address] Lipase measurementOrdered By : Stacey Ward on 04-24-2024 Lipase [Catalytic activity/Vol] 41 U/L 13-75 [facility] Comment on above: Please note:LIPASE r evised reference range effective 22. New Lipase methodology. Expected to produce lower values than the previous assay method. NEW Reference Range: 13 - 75 U/L Lymphocytes Auto (Unsp spec) [#/Vol]Ordered By: Stacey Ward on 04-24-2024 Lymphocytes (Bld) [#/Vol] 2.41 10*3/uL 0.83-4.51 [facility] Lymphocytes/100 WBC Auto (Un sp spec)Ordered By: Stacey Ward on 04-24-2024 Lymphocytes/100 WBC (Bld) 18.4 % Low 19-41 [facility] MCV (mean corpuscular volume ) determinationOrdered By: Stacey Ward on 04-24-2024 MCV (RBC) [Entitic vol] 89.3 fL 81-99 [facility] Mean corpuscular hemoglobin (MCH) determinationOrdered By: Stacey Ward on 04-24-2024 MCH (RBC) [Entitic mass] 29.5 pg 27.0-32.0 [facility] Mean corpuscular hemoglobin concentration (MCHC) determinationOrdered By: Stacey Ward on 04-24-2024 MCHC (RBC) [Mass/Vol] 33.1 g/dL 32-36 [facility] Mean platelet volume determi nationOrdered By: Stacey Ward on 04-24-2024 Platelet mean volume (Bld) [Entitic vol] 10.3 fL 6.2-12.0 [facility] Monocyte percentageOrdered B y: Stacey Ward on 04-24-2024 Monocytes/100 WBC (Bld) 6.5 % 0-10 [facility] Neutrophil percentageOrdered By: Stacey Ward on 04-24-2024 Neutrophils/100 WBC (Bld) 65.0 % 47-70 [facility] Nucleated red blood cell per centageOrdered By: Stacey Ward on 04-24-2024 Nucleated RBC/100 WBC (Bld) [Ratio] 0 % 0-5 [facility] Platelet countOrdered By: Christi Ward on 04-24-2024 Platelets (Bld) [#/Vol] 364 10*3/uL 150-450 [facility] Potassium measurementOrdered By: Stacey Ward on 04-24-2024 Potassium [Moles/Vol] 4.0 mmol/L 3.5-5.1 [facility] RBC Auto (Bld) [#/Vol]Ordere d By: Stacey Ward on 04-24-2024 RBC (Bld) [#/Vol] 4.57 10*6/uL 4.2-5.4 [facility] Serum anion gap measurementO rdered By: Stacey Ward on 04-24-2024 Anion gap [Moles/Vol] 12 mmol/L 5-15 [facility] Serum globulin measurementOr dered By: Stacey Ward on 04-24-2024 Globulin (S) [Mass/Vol] 5.4 g/dL High 2.2-4.2 [facility] Serum or plasma alanine gayle otransferase (ALT) measurementOrdered By: Stacey Ward on 04-24-2024 ALT [Catalytic activity/Vol] 17 U/L 13-56 [facility] Serum or plasma albumin wale urement (mass/volume)Ordered By: Stacey Ward on 04-24-2024 Albumin [Mass/Vol] 3.6 g/dL 3.2-5.0 [facility] Serum or plasma alkaline valentin sphatase measurementOrdered By: Stacey Ward on 04-24-2024 ALP [Catalytic activity/Vol] 97 U/L 45-117 [facility] Serum or plasma calcium wale urement (mass/volume)Ordered By: Stacey Ward on 04-24-2024 Calcium [Mass/Vol] 11.8 mg/dL High 8.5-10.1 [facility] Serum or plasma creatinine m easurement (mass/volume)Ordered By: Stacey Ward on 04-24-2024 Creatinine [Mass/Vol] 1.11 mg/dL High 0.55-1.02 [facility] Comment on above: The validity of the calculated GFR & GFRAA in patients over 70 years has not been determined. Clinical correlation is essential. Serum or plasma urea nitroge n measurement (mass/volume)Ordered By: Stacey Ward on 04-24-2024 Urea nitrogen [Mass/Vol] 17 mg/dL 7-18 [facility] Sodium levelOrdered By: Ras Ward on 04-24-2024 Sodium [Moles/Vol] 134 mmol/L Low 136-145 [facility] Total proteinOrdered By: Karl Ward on 04-24-2024 Protein [Mass/Vol] 9.0 g/dL High 6.4-8.2 [facility] Troponin IOrdered By: Mik georgiana Ward on 04-24-2024 Troponin I High Sensitivity 40 pg/mL 3.0-54.0 [facility] Comment on above: Please Note: New Gill t Units and Gender Specific Reference Ranges. For more information see Policy Stat Procedure [place] High Sensitivity Troponin (TNIH) and attachments. White blood cell (WBC) count Ordered By: Stacey Ward on 04-24-2024 WBC (Bld) [#/Vol] 13.1 10*3/uL High 4.4-11.0 [facility] H. PYLORI STOOL AGon 024 H PYLORI STL AG Negative Normal Negative [facility] Comment on above: Order Comment: PER P T-JUST STOOL SAMPLE Result Comment: Perf ormed at: - [facility] [address] [id number] Nursing Care Partner: Tramaine Palacios PhD, Phone: [phone] Performed By: #### L 3100.1950 #### [facility] [address] [place], [address] Gastroenterology Visit Repor ton 04-02-2024 Gastroenterology Visit Report [facility] Gastroenterology [address] [place] [address] OFFICE VISIT Date of Service: 04/02/24 MR#: [id number] Acct: [id number] Name: SULEIMAN RAMSEY Rep #: [id number] : 1945 Provider: MICK chu Age/Sex: 78/F Location: [facility] Status: Signed Intake Vital Signs 03/30/24 13:34 04/02/24 10:28 Height 5 ft 1 in Weight: 167 lb 8 oz BP 148/86 H Respiration 16 Pulse 74 Temp 98.0 F Pulse Oximetry (%) 96 Oxygen Delivery Method room air Intake Visit Reasons: Hospital FU Chief Complaint: abd. 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 Accompanied by: Is patient in pain?: No Allergies gabapentin Adverse Reaction (Severe, Verified 04/02/24 10:13) Other Medications ???Medication ???Instructions ???Recorded ???Confirmed ???Type levothyroxine 150 mcg tablet 150 mcg PO DAILY 12/03/14 04/02/24 History blood sugar diagnostic #100 ea 01/24/19 06/28/23 History blood-glucose meter #1 ea 01/24/19 06/28/23 History metformin 500 mg tablet,extended 2,000 mg PO QHS #360 tabs 01/24/19 04/02/24 History release 24 hr insulin glargine U-300 conc 300 70 unit subcut 1730 02/14/21 04/02/24 History unit/mL (1.5 mL) subcutaneous pen (Toujeo SoloStar U-300 Insulin) ibuprofen 400 mg tablet 400 mg PO Q6H PRN Pain 03/08/22 04/02/24 History olmesartan 20 mg tablet (Benicar) 40 mg PO DAILY 11/15/22 04/02/24 History cholecalciferol (vitamin D3) 50 50 mcg PO DAILY 11/27/22 04/02/24 History mcg (2,000 unit) capsule diphenhydramine HCl 25 mg capsule 25 mg PO QHS PRN 11/27/22 04/02/24 History (Benadryl) magnesium oxide 1,600 mg PO DAILY 11/27/22 04/02/24 History rosuvastatin 20 mg tablet 20 mg PO DAILY 11/27/22 04/02/24 History Bilateral wrist splints #2 ea 12/21/22 06/28/23 Rx duloxetine 60 mg capsule,delayed 60 mg PO QHS #90 caps 10/04/23 04/02/24 Rx release pregabalin 200 mg capsule (Lyrica) 200 mg PO BID #180 caps 10/04/23 04/02/24 Rx anastrozole 1 mg tablet 1 mg PO DAILY 10/05/23 04/02/24 History insulin lispro 100 unit/mL 40 unit subcut DINNER 04/02/24 04/02/24 History subcutaneous half-unit pen (Humalog Junior Gauthier (U-100)) omeprazole 40 mg capsule,delayed 40 mg PO BID abdominal pain #44 04/02/24 04/02/24 Rx release caps semaglutide 1 mg/dose (4 mg/3 mL) 1 mg subcut QWEEK 04/02/24 04/02/24 History subcutaneous pen injector (Ozempic) Have you fallen in the past year?: No PFSH Medical History History of recent fall Fatty liver Restless legs Dietary restriction History of hiatal hernia History of ulceration Abdominal pain Post-menopausal Wears hearing aid Wears glasses Insulin dependent diabetes mellitus High cholesterol Back pain Gastric reflux Former smoker History of echocardiogram History of stress test Hx of corn of toe Hx of dermabrasion Bloating Hypergammaglobulinemia CKD (chronic kidney disease) Hyperlipidemia Cataracts, bilateral Increased urinary frequency Back pain Difficulty balancing Arthritis Thyroid disease Hypertension Surgical History History of right breast biopsy ( 11/2022) S/P ORIF (open reduction internal fixation) fracture Hx of arthroscopic knee surgery Hx of tubal ligation Family History Father Cancer lung/liver/pancreas Myocardial infarction Heart disease Grandfather Rectal cancer paternal Social History Smoking Status: Former smoker alcohol intake: never HPI HPI Chief Complaint: abd. pain, nausea Details: 78y/o female presents for consultation of epigastric abdominal pain. Her PMH is significant for diabetes mellitus, breast cancer, GERD, HTN, HLD, peripheral neuropathy and prior dumping syndrome. She was seen in the emergency department on 03/30/2024 with complaints of generalized malaise, nausea and abdominal pain. CT completed 03/27/2024 revealed cholelithiasis, diverticulosis and small fat-containing umbilical hernia and left inguinal hernia. ER increased Omeprazole to BID x5 days and added Ondansetron 4mg Q8prn and sucralfate 1g Q6H [id number]. EGD 01/12/2022 [place] Grade A reflux esophagitis, schatzki's ring, gastric ulcer ---unable to locate pathology EGD 02/21/2021 [place] Grade A esophagitis, schatzki's ring, duodenal erythema POSITIVE for H. pylori Colonoscopy: a long time ago - Paternal GF with colon CA - abdominal pain, sudden onset, generalized began 1 week ago, denies any radiation of pain - denies any worsening of pain with PO intake - c/o extreme nausea - she reports the abdominal pain has presently resolved - denies any melena (more content not included)... Normal [facility] 12 Lead EKGon 03-30-2024 12 Lead EKG [facility] Cardiovascular Services [address] [place] [address] 12 Lead EKG 03/30/24 1421 MR#: [id number] Acct: [id number] Name: SULEIMAN RAMSEY Rep #: [id number] : 1945 78 From: Gold Farmer MD Attending Dr: Status: DEP ER Ordering Dr: Miriam Leon DO Date: 03/30/24 Location: ED Sex: F C Admitted: Test Reason : ABD PAIN Blood Pressure : */* mmHG Vent. Rate : 70 BPM Atrial Rate : 70 BPM P-R Int : 288 ms QRS Dur : 130 ms QT Int : 430 ms P-R-T Axes : 18 -38 125 degrees QTcB Int : 464 ms Sinus rhythm with 1st degree A-V block Left axis deviation Left bundle branch block Abnormal ECG Confirmed by JONEL ULRICH, GOLD ([id number]), editor sound REBECCA SCHREIBER ([id number]) on 03/31/2024 9:53:07 AM Referred By: Confirmed By: GOLD FARMER MD 03/31/24 0953 Date Gold Farmer MD CC: Dr. Miriam Leon DO; Dr. Benny Bosch MD Signed Normal [facility] Basic Metabolic Profile (BMP )on 03-30-2024 BUN/CRE 12.1 RATIO Normal - [facility] Comment on above: Order Comment: 'TROP ' Serial specimen #1, #2 or #3: 1 Performed By: #### L 501.2450, L501.4020, L501.5200, L500.2500 ####[facility] [address] [place], [address] CA,Total 9.0 mg/dL Normal 8.5-10.1 [facility] Comment on above: Order Comment: 'TROP ' Serial specimen #1, #2 or #3: 1 Performed By: #### L 501.2450, L501.4020, L501.5200, L500.2500 ####[facility] [address] [place], [address] Chloride [Moles/Vol] 109 mmol/L High 98-107 [facility] Comment on above: Order Comment: 'TROP ' Serial specimen #1, #2 or #3: 1 Performed By: #### L 501.2450, L501.4020, L501.5200, L500.2500 ####[facility] [address] [place], [address] CO2 [Moles/Vol] 23.0 mmol/L Normal 21.0-32.0 [facility] Comment on above: Order Comment: 'TROP ' Serial specimen #1, #2 or #3: 1 Performed By: #### L 501.2450, L501.4020, L501.5200, L500.2500 ####[facility] [address] [place], [address] Creatinine [Mass/Vol] 0.99 mg/dL Normal 0.55-1.02 [facility] Comment on above: Order Comment: 'TROP ' Serial specimen #1, #2 or #3: 1 Result Comment: The validity of the calculated GFR GFRAA in patients over 70 years has not been determined. Clinical correlation is essential. Performed By: #### L 501.2450, L501.4020, L501.5200, L500.2500 ####[facility] [address] [place], [address] ECRCL 44.28 ml/min Normal [facility] Comment on above: Order Comment: 'TROP ' Serial specimen #1, #2 or #3: 1 Performed By: #### L 501.2450, L501.4020, L501.5200, L500.2500 ####[facility] [address] [place], [address] EST GFR - AA 70 mL/min Normal >60 [facility] Comment on above: Order Comment: 'TROP ' Serial specimen #1, #2 or #3: 1 Result Comment: Afri can Swiss GFR Calc Performed By: #### L 501.2450, L501.4020, L501.5200, L500.2500 ####[facility] [address] [place], [address] GAP 5 Normal 5-15 [facility] Comment on above: Order Comment: 'TROP ' Serial specimen #1, #2 or #3: 1 Performed By: #### L 501.2450, L501.4020, L501.5200, L500.2500 ####[facility] [address] [place], [address] GFR/1.73 sq M.predicted among non-blacks MDRD (S/P/Bld) [Vol rate/Area] 57 mL/min/{1.73_m2} Low >60 [facility] Comment on above: Order Comment: 'TROP ' Serial specimen #1, #2 or #3: 1 Result Comment: Non- GFR Calc Performed By: #### L 501.2450, L501.4020, L501.5200, L500.2500 ####[facility] [address] [place], [address] Glucose [Mass/Vol] 177 mg/dL High 74-106 [facility] Comment on above: Order Comment: 'TROP ' Serial specimen #1, #2 or #3: 1 Result Comment: Fast ing Glucose result greater than or equal to 126 mg/dL suggests DIABETES MELLITUS per A.D.A. criteria. Performed By: #### L 501.2450, L501.4020, L501.5200, L500.2500 ####[facility] [address] [place], [address] Potassium [Moles/Vol] 4.1 mmol/L Normal 3.5-5.1 [facility] Comment on above: Order Comment: 'TROP ' Serial specimen #1, #2 or #3: 1 Performed By: #### L 501.2450, L501.4020, L501.5200, L500.2500 ####[facility] [address] [place], [address] Sodium [Moles/Vol] 138 mmol/L Normal 136-145 [facility] Comment on above: Order Comment: 'TROP ' Serial specimen #1, #2 or #3: 1 Performed By: #### L 501.2450, L501.4020, L501.5200, L500.2500 ####[facility] [address] [place], [address] Urea nitrogen [Mass/Vol] 12 mg/dL Normal 7-18 [facility] Comment on above: Order Comment: 'TROP ' Serial specimen #1, #2 or #3: 1 Performed By: #### L 501.2450, L501.4020, L501.5200, L500.2500 ####[facility] [address] [place], [address] CBC W/Diff, Automatedon 03-14 Absolute Lymph 1.81 X10 3/uL Normal 0.83-4.51 [facility] Comment on above: Performed By: #### L 100.0100 #### [facility] [address] [place], [address] Absolute Neut 6.4 X10 3/uL Normal 2.0-7.7 [facility] Comment on above: Performed By: #### L 100.0100 #### [facility] [address] [place], [address] Basophils/100 WBC (Bld) 0.6 % Normal 0-1 [facility] Comment on above: Performed By: #### L 100.0100 #### [facility] [address] [place], [address] Eosinophils/100 WBC (Bld) 3.1 % Normal 0-5 [facility] Comment on above: Performed By: #### L 100.0100 #### [facility] [address] [place], [address] Erythrocyte distribution width (RBC) [Ratio] 13.5 % Normal 11.6-14.6 [facility] Comment on above: Performed By: #### L 100.0100 #### [facility] [address] [place], [address] Hematocrit (Bld) [Volume fraction] 39.2 % Normal 37-47 [facility] Comment on above: Performed By: #### L 100.0100 #### [facility] [address] [place], [address] Hemoglobin (Bld) [Mass/Vol] 12.5 g/dL Normal 12.0-15.0 [facility] Comment on above: Performed By: #### L 100.0100 #### [facility] [address] [place], [address] IG% 0.400 Normal 0.0-0.9 [facility] Comment on above: Result Comment: IG% - Immature Granulocytes (promyelocytes, myelocytes and metamyelocytes) > 1% indicates that a LEFT SHIFT is Present. Performed By: #### L 100.0100 #### [facility] [address] [place], [address] Lymphocytes/100 WBC (Bld) 19.5 % Normal 19-41 [facility] Comment on above: Performed By: #### L 100.0100 #### [facility] [address] [place], [address] MCH (RBC) [Entitic mass] 29.1 pg Normal 27.0-32.0 [facility] Comment on above: Performed By: #### L 100.0100 #### [facility] [address] [place], [address] MCHC (RBC) [Mass/Vol] 31.9 g/dL Low 32-36 [facility] Comment on above: Performed By: #### L 100.0100 #### [facility] [address] [place], [address] MCV (RBC) [Entitic vol] 91.4 fL Normal 81-99 [facility] Comment on above: Performed By: #### L 100.0100 #### [facility] [address] [place], [address] Monocytes/100 WBC (Bld) 7.2 % Normal 0-10 [facility] Comment on above: Performed By: #### L 100.0100 #### [facility] [place], [address] Neutrophils/100 WBC (Bld) 69.2 % Normal 47-70 [facility] Comment on above: Performed By: #### L 100.0100 #### [facility] [address] [place], [address] Nucleated RBC (Bld) [#/Vol] 0 10*3/uL Normal 0-5 [facility] Comment on above: Performed By: #### L 100.0100 #### [facility] [address] [place], [address] Platelet mean volume (Bld) [Entitic vol] 9.9 fL Normal 6.2-12.0 [facility] Comment on above: Performed By: #### L 100.0100 #### [facility] [address] [place], [address] Platelets (Bld) [#/Vol] 297 10*3/uL Normal 150-450 [facility] Comment on above: Performed By: #### L 100.0100 #### [facility] [address] [place], [address] RBC (Bld) [#/Vol] 4.29 10*6/uL Normal 4.2-5.4 [facility] Comment on above: Performed By: #### L 100.0100 #### [facility] [address] [place], [address] RDW SD 45.1 fl High 35.1-43.9 [facility] Comment on above: Performed By: #### L 100.0100 #### [facility] [address] [place], [address] WBC (Bld) [#/Vol] 9.3 10*3/uL Normal 4.4-11.0 [facility] Comment on above: Performed By: #### L 100.0100 #### [facility] [address] [place], [address] Emergency Department Summary on 03-30-2024 Emergency Department Summary [facility] Medical Records Department [address] [place] [address] Emergency Department Summary 03/30/24 MR#: [id number] Acct: [id number] Name: SULEIMAN RAMSEY Rep #: [id number] : 1945 78 From: Miriam Leon DO PCP: Dr. Benny Bosch MD Status:DEP ER Location: ED HPI HPI - GI History of Present Illness Chief Complaint: Abd Pain Informant: patient and family (daughter) Narrative Narrative: Patient 78-year-old female with history of diabetes mellitus, breast cancer, gastric reflux, hypertension, hyperlipidemia, peripheral neuropathy and prior dumping syndrome presenting with 1 week generalized malaise, nausea and abdominal pain. No vomiting reported. His does not have any nausea medicine at home. Saw her PCP on Sunday, 2 days ago, and had an outpatient CT of the abdomen pelvis ordered. Did not show any acute process but did show cholelithiasis, diverticulosis and small fat-containing umbilical hernia and left inguinal hernia. Patient was started on omeprazole. She has not had improvement of her symptoms and continued to feel poorly so family brought her to the emergency room today per the recommendation of the on-call doctor. Patient had decreased appetite. Abdominal pain is diffuse but seems to be centered in the epigastric region. She does report associated chest pain and shortness of breath. She does report particularly bad reflux with no help anywhere from Rolaids or Pepto-Bismol. She did have a small bowel movement this morning. Denies any acute change in her stools. Does have a history of chronic UTIs but currently denies any urinary symptoms. Notes that sometimes drinking chicken broth will help. Was started on Ozempic 2 weeks ago. Denies fevers but has had cold sweats. Has a history of a tubal ligation as well as EGD and colonoscopy in the past. Has seen Dr. Sanchez in the past as well but is been a couple years per the daughter [facility] Medical History History of recent fall Fatty liver Restless legs Dietary restriction History of hiatal hernia History of ulceration Abdominal pain Post-menopausal Wears hearing aid Wears glasses Insulin dependent diabetes mellitus High cholesterol Back pain Gastric reflux Former smoker History of echocardiogram History of stress test Hx of corn of toe Hx of dermabrasion Bloating Hypergammaglobulinemia CKD (chronic kidney disease) Hyperlipidemia Cataracts, bilateral Increased urinary frequency Back pain Difficulty balancing Arthritis Thyroid disease Hypertension Home Medications ???Medication ???Instructions ???Recorded ???Last Taken ???Type levothyroxine 150 mcg tablet 150 mcg PO DAILY 12/03/14 03/16/22 History blood sugar diagnostic #100 ea 01/24/19 03/15/22 History blood-glucose meter #1 ea 01/24/19 03/15/22 History metformin 500 mg tablet,extended 2,000 mg PO QHS #360 tabs 01/24/19 03/15/22 History release 24 hr insulin glargine U-300 conc 300 70 unit subcut 1730 02/14/21 03/15/22 History unit/mL (1.5 mL) subcutaneous pen 35 UNITS (Toujeo SoloStar U-300 Insulin) insulin lispro 100 unit/mL 30 unit subcut DINNER 02/14/21 03/15/22 History subcutaneous half-unit pen (Humalog Alec Abrahan (U-100)) ibuprofen 400 mg tablet 400 mg PO Q6H PRN Pain 03/08/22 03/15/22 History olmesartan 20 mg tablet (Benicar) 40 mg PO DAILY 11/15/22 Unknown History cholecalciferol (vitamin D3) 50 50 mcg PO DAILY 11/27/22 Unknown History mcg (2,000 unit) capsule diphenhydramine HCl 25 mg capsule 25 mg PO QHS PRN 11/27/22 Unknown History (Benadryl) magnesium oxide 1,600 mg PO DAILY 11/27/22 Unknown History mecobalamin (vitamin B12) 1,000 2,000 mcg PO DAILY 11/27/22 Unknown History mcg chewable tablet rosuvastatin 20 mg tablet 20 mg PO DAILY 11/27/22 Unknown History vitamin B complex 1 tab PO DAILY 11/27/22 Unknown History Bilateral wrist splints #2 ea 12/21/22 Unknown Rx duloxetine 60 mg capsule,delayed 60 mg PO QHS #90 caps 10/04/23 Unknown Rx release pregabalin 200 mg capsule (Lyrica) 200 mg PO BID #180 caps 10/04/23 Unknown Rx anastrozole 1 mg tablet 1 mg PO DAILY 10/05/23 Unknown History ondansetron 4 mg disintegrating 4 mg PO Q8H PRN PRN Nausea #14 tabs 03/30/24 Unknown Rx tablet sucralfate 1 gram tablet (Carafate) 1 g PO [id number] #40 tabs 03/30/24 Unknown Rx Allergy/AdvReac Type Severity Reaction Status Date / Time gabapentin AdvReac Severe Other Verified 03/30/24 13:34 Family History Father Cancer lung/liver/pancreas Myocardial infarction Heart disease Grandfather Rectal cancer paternal Surgical History History of right breast biopsy ( 11/2022) S/P RIKA (more content not included)... Normal [facility] L501.4020on 03-30-2024 TROPONIN-I HS 10 pg/mL Normal 3.0-54.0 [facility] Comment on above: Order Comment: 'TROP ' Serial specimen #1, #2 or #3: 1 Result Comment: Plea se Note: New Test Units and Gender Specific Reference Ranges. For more information see Policy Stat Procedure [place] High Sensitivity Troponin (TNIH) and attachments. Performed By: #### L 501.2450, L501.4020, L501.5200, L500.2500 ####[facility] [address] [place], [address] Lipaseon 03-30-2024 Lipase [Catalytic activity/Vol] 68 U/L Normal 13-75 [facility] Comment on above: Order Comment: 'TROP ' Serial specimen #1, #2 or #3: 1 Result Comment: Plea se note: LIPASE revised reference range effective 22. New Lipase methodology. Expected to produce lower values than the previous assay method. NEW Reference Range: 13 - 75 U/L Performed By: #### L 501.2450, L501.4020, L501.5200, L500.2500 ####[facility] [address] [place], [address] Magnesiumon 03-30-2024 Magnesium [Mass/Vol] 1.3 mg/dL Low 1.6-2.6 [facility] Comment on above: Order Comment: 'TROP ' Serial specimen #1, #2 or #3: 1 Performed By: #### L 501.2450, L501.4020, L501.5200, L500.2500 ####[facility] [address] [place], [address] Urinalysis, Completeon 03-30 RBC 0-5 SEEN Normal 0-5 [facility] Comment on above: Order Comment: CLEAN CATCH Performed By: #### L 400.0001 #### [facility] [address] [place], [address] WBC 0-5 SEEN Normal 0-5 [facility] Comment on above: Order Comment: CLEAN CATCH Performed By: #### L 400.0001 #### [facility] [address] [place], [address] BACTERIA 0 SEEN Normal None Seen [facility] Comment on above: Order Comment: CLEAN CATCH Performed By: #### L 400.0001 #### [facility] [address] [place], [address] EPI,SQUAMOUS 0 SEEN Normal 5-10 [facility] Comment on above: Order Comment: CLEAN CATCH Performed By: #### L 400.0001 #### [facility] [address] [place], [address] Mucus Ql (Urine sed) 0 SEEN Normal [facility] Comment on above: Order Comment: CLEAN CATCH Performed By: #### L 400.0001 #### [facility] [address] [place], [address] Abdomen/Pelvis W IV Cont ONL Yon 03-27-2024 Abdomen/Pelvis W IV Cont ONLY [facility] Imaging Services [address] [place] [address] Abdomen/Pelvis W IV Cont ONLY MR#: [id number] Acct: [id number] Name: SULEIMAN RAMSEY Rep #: [id number] : 1945 F 78 From: Avery Collins MD PCP: Dr. Benny Bosch MD Status: REG CLI Study: Abdomen/Pelvis W IV Cont ONLY Date of Exam: Exam# [id number] Ordering Dr: Benny Bosch MD :[id number] STUDY: CT ABDOMEN AND PELVIS WITH CONTRAST REASON FOR EXAM: Female, 78 years old. abdominal pain RADIATION DOSAGE (If Supplied By Facility): CTDIvol = ( 17.08 ) mGy, DLP = ( 1153.99 ) mGycm TECHNIQUE: Transaxial images were obtained from the dome of the diaphragm to the symphysis pubis without oral contrast. IV 100mL Isovue-300 was administered. Sagittal and coronal images were reconstructed. Individualized dose optimization techniques were used for this CT. COMPARISON: August 17, 2022 FINDINGS: There are tiny calcified granulomata in the right lower lobe as well as calcified mediastinal nodes. Heart size is normal. There is mild coronary artery calcification. Normal liver. Tiny poorly calcified gallstone without evidence for acute inflammation. Multiple tiny calcified granulomata within normal size spleen. Normal pancreas. Normal bilateral adrenal glands. Normal right kidney. Normal left kidney. Normal visualized stomach. Normal small intestine. Diverticular changes of the distal descending and sigmoid colon without evidence for acute diverticulitis. The appendix is visualized and appears normal. Atherosclerotic change of the aorta without evidence for aneurysm. Normal inferior vena cava. Normal retroperitoneum. Normal urinary bladder. Small fat-containing umbilical hernia and left inguinal hernia.. Lumbar spine demonstrates degenerative change CT/Abdomen/Pelvis W IV Cont ONLY IMPRESSION: Cholelithiasis without definitive evidence for acute cholecystitis.. Ultrasound or HIDA scan would be helpful for further evaluation if indicated. Diverticulosis of the colon without evidence for acute diverticulitis No evidence for small bowel obstruction or other acute abnormality Electronically Signed: Avery Collins MD at 18:00 EST Reading Location ID and State: [address] [place] [address] Tel , Service support , CC: Dr. Benny Bosch MD Marketing Operations Specialist: Signed Normal [facility] CREATININE FINGERSTICKon Creatinine [Mass/Vol] 1.2 mg/dL High 0.55-1.02 [facility] Comment on above: Performed By: #### L 500.4050, L501.2450, L100.0100, L501.5425 #### [facility] [address] [place], [place], [address] GFR/1.73 sq M.predicted among non-blacks MDRD (S/P/Bld) [Vol rate/Area] 44.0000 mL/min/{1.73_m2} Low >60 [facility] Comment on above: Performed By: #### L 500.4050, L501.2450, L100.0100, L501.5425 #### [facility] [address] [place], [address] Basic metabolic 2000 panelon 03-03-2024 Anion gap [Moles/Vol] 11 mmol/L Normal 8-15 [facility] Comment on above: Order Comment: Speci men Type: BLOOD SPECIMENOrdering Facility: [facility] Address: [address] [place] [address] Performed By: #### 2 4321-2 ####[facility]ARC[facility] [id number] [place] [address] [place] Calcium [Mass/Vol] 11.5 mg/dL High 8.5-10.2 [facility] Comment on above: Order Comment: Speci men Type: BLOOD SPECIMENOrdering Facility: [facility] Address: [address] [place] [address] Performed By: #### 2 4321-2 ####[facility]ITALNCLIZABETHA [id number] [place] [address] [place] Chloride [Moles/Vol] 100 mmol/L Normal 98-107 [facility] Comment on above: Order Comment: Speci men Type: BLOOD SPECIMENOrdering Facility: [facility] Address: [address] [place] [address] Performed By: #### 2 4321-2 ####[facility] [id number] [place] [address] [place] CO2 [Moles/Vol] 21 mmol/L Low 22-30 [facility] Comment on above: Order Comment: Speci men Type: BLOOD SPECIMENOrdering Facility: [facility] Address: [address] [place] [address] Performed By: #### 2 4321-2 ####[facility]ITALNCLI [id number] [place] [address] [place] Creatinine [Mass/Vol] 0.68 mg/dL Normal 0.58-0.96 [facility] Comment on above: Order Comment: Sebastián esqueda Type: BLOOD SPECIMENOrdering Facility: [facility] Address: [address] [place] [address] Performed By: #### 2 4321-2 ####[facility] [id number] [place] [address] [place] Creatinine and Glomerular filtration rate.predicted panel (S/P/Bld) 89 mL/min/1.73m??? Normal >=60 [facility] Comment on above: Order Comment: Sebastián esqueda Type: BLOOD SPECIMENOrdering Facility: [facility] Address: [address] [place] [address] Result Comment: Payal mated Glomerular Filtration Rate (eGFR) is calculated using the 2020 CKD-EPI creatinine equation. This equation utilizes serum creatinine, sex, and age as parameters. The creatinine assay has traceable calibration to isotope dilution-mass spectrometry. Refer to KDIGO guidelines for clinical interpretation. In patients with unstable renal function, e.g. those with acute kidney injury, the eGFR may not accurately reflect actual GFR. Performed By: #### 2 4321-2 ####[facility] [id number] [place] [address] [place] Glucose [Mass/Vol] 159 mg/dL High 74-99 [facility] Comment on above: Order Comment: Sebastián esqueda Type: BLOOD SPECIMENOrdering Facility: [facility] Address: [address] [place] [address] Result Comment: The [place] Diabetes Association (ADA) provides guidance for cutoff values for fasting glucose and random glucose. The ADA defines fasting as no caloric intake for at least 8 hours. Fasting plasma glucose results between 100 to 125 mg/dL indicate increased risk for diabetes (prediabetes). Fasting plasma glucose results greater than or equal to 126 mg/dL meet the criteria for diagnosis of diabetes. In the absence of unequivocal hyperglycemia, results should be confirmed by repeat testing. In a patient with classic symptoms of hyperglycemia or hyperglycemic crisis, random plasma glucose results greater than or equal to 200 mg/dL meet the criteria for diagnosis of diabetes. Reference: Standards of Medical Care in Diabetes 2016, [place] Diabetes Association. Diabetes Care. 2016.39(Suppl 1). Performed By: #### 2 4321-2 ####[facility] [id number] [place] [address] [place] Potassium [Moles/Vol] 4.2 mmol/L Normal 3.7-5.1 [facility] Comment on above: Order Comment: Sebastián esqueda Type: BLOOD SPECIMENOrdering Facility: [facility] Address: [address] [place] [address] Performed By: #### 2 4321-2 ####[facility] [id number] [place] [address] [place] Sodium [Moles/Vol] 132 mmol/L Low 136-144 [facility] Comment on above: Order Comment: Sebastián esqueda Type: BLOOD SPECIMENOrdering Facility: [facility] Address: [address] [place] [address] Performed By: #### 2 4321-2 ####[facility] [id number] [place] [address] [place] Urea nitrogen [Mass/Vol] 18 mg/dL Normal 7-21 [facility] Comment on above: Order Comment: Sebastián esqueda Type: BLOOD SPECIMENOrdering Facility: [facility] Address: [address] [place] [address] Performed By: #### 2 4321-2 ####[facility] [id number] [place] [address] [place] CNOVSPon 03-03-2024 CNOVSP Visit (SP) Office ( EMAWS) SULEIMAN RAMSEY ([id number]) 1945 F Date Time Provider Department 03/03/24 9:00 AM TREATMENT RM 14 [facility] WSTRHEMAWS During your visit today, we recorded the following information about you: Referring Provider: SUSAN WILKINSON [[id number]] Allergies As of Date: 03/03/2024 (No Known Allergies) Date Reviewed: 03/03/2024 Reviewed by: Nina Jarquin Ma, MA - Fully Assessed Reason for Visit: Non-Chemotherapy Treatment [795] Primary Visit Diagnosis:Malignant neoplasm of upper-inner quadrant of right breast in female, estrogen receptor positive (HCC) [C50.211, Z17.0] Order(s):PHARMACY COMMUNICATION PATIENT ARRIVEDDisp: Rfl: [] zoledronic ng-vfwujxpt-7.9NaCl 4 mg iv piggyback 100 mL (ZOMETA)Disp: Rfl: Prescriptions as of 03/03/2024 - anastrozole (ARIMIDEX) 1 mg tablet Take 1 tablet by mouth once daily. - vitamin B complex (SUPER B FWDTRIZ-C-08 ORAL) - DULoxetine (CYMBALTA) 30 mg capsule Take 30 mg by mouth once daily. for neuropathy - Ibuprofen 200 mg cap Take 200 [...] tablets by mouth daily at bedtime. - HUMALOG KWIKPEN INSULIN 200 unit/mL (3 mL) injection Inject 40 Units subcutaneously two times a day. - insulin glargine U-300 conc (TOUJEO SOLOSTAR U-300 INSULIN) 300 unit/mL (1.5 mL) INJECT 70 UNITS SUBCUTANEOUSLY AT BEDTIME - cholecalciferol, vitamin D3, (D3-2000 ORAL) - diphenhydrAMINE (BENADRYL) 25 mg capsule Take by mouth. - Magnesium 200 mg tab Take 4 tablets by mouth once daily. Facility-Administered Medications as of 03/03/2024 - PHARMACY COMMUNICATION PATIENT ARRIVED Problem List As Of Date 03/03/2024 Noted Resolved Rosacea [L71.9] 08/31/2005 06/09/2012 Seborrheic [...] LBBB (left bundle branch block) [I44.7] 01/05/2023 Obesity, Class I, BMI 30-34.9 [E66.811] 01/10/2023 Encounter Status:Closed by MIK JAMESON on 03/03/24 [facility] Visit (SP) Office (H EMAWS) SULEIMAN RAMSEY ([id number]) 1945 F Date Time Provider Department 03/03/24 8:30 AM DANAY GRIFFIN During your visit today, we recorded the following information about you: Temperature Pulse Blood pressure Weight 97.3 degrees 78/minute 155/92 78.9 kg Danay Griffin 03/03/2024 1:24 PM Signed Suleiman Rajendra Fly 1945 03/03/2024 HPI: Suleiman Rajendra Fly is a 78 year old female who presents here today for follow up breast cancer. Per Dr. Chowdhury's previous note: H/o hypertension, left bundle branch block, hypercholesterolemia, hypothyroidism, diabetes, atrophic vaginitis and rosacea. Patient noted a mass in her right breast approximately 6 months prior to presentation. She was seen by her day habilitation specialist to confirm the presence of a mass. She underwent a bilateral diagnostic mammogram with a right-sided ultrasound at [facility] 11/10/2022. The ultrasound demonstrated that the [...] 2/3. ER (clone 6F11) >95% , strong CA (clone 16/1E2) 80%, weak to moderate Her-2Neu (clone CB11) 1 - 2+ (equivocal) Patient had a CT of the chest, abdomen pelvis on 11/29/2022 at [facility]. There was a group of nodular [...] had a bone scan on 12/04/2022 at [facility]. That study demonstrated increased uptake in [...] of no special type (ductal) Histologic Grade ([place] Histologic Score) Glandular (Acinar) / Tubular Differentiation Score 3 Nuclear Pleomorphism Score 2 Mitotic Rate Score 2 (more content not included)... Normal [facility] CNOVon 02-27-2024 CNOV Office Visit (WMHLST ) SULEIMAN RAMSEY ([id number]) 1945 F Date Time Provider Department 02/27/24 9:00 AM ALEX DANIELLE WMHLST During your visit today, we recorded the following information about you: Alex Danielle PA-C 02/27/2024 10:38 AM Signed REASON FOR TODAY'S VISIT: Patient presents with: Established Patient HISTORY of PRESENT ILLNESS: Suleiman Ramsey, 78 year old year old female, s/p a RIGHT mastectomy, RIGHT sentinel lymph node mapping and biopsy (no reconstruction) performed by Dr. Parkinson (Breast Surgeon) on 01/09/2023 Final pathology reports 7.0 cm IDC (margins clear), Grade 3, 0/2 LN, -LVI ER+, CA+, HER2- PATHOLOGICAL STAGE RIGHT BREAST: p,T3,N0 HISTORY: Patient was last seen for a six month follow up on 08/17/2023 At that time, she had consulted with Dr. Chowdhury (Medical Oncologist) who did not recommend adjuvant chemotherapy. She had undergone radiation treatment to the right chest wall and recovered well. Patient tried a trial of Arimidex, but stopped it one month later due to joint pain. In the interim, she has since resumed Arimidex and reports she is tolerating well. Continues with Zometa infusion every six months which is scheduled. Last LEFT sided screening mammogram was on 11/26/2023 No suspicious findings were noted. Patient is here for a clinical examination ROS: HEENT: Denies vision changes or headaches BREAST: Denies palpating any new breast masses, no breast pain, no skin changes, no left nipple discharge ABD: Denies any abdominal pain or new changes in bowel habits MUSCULOSKELETAL: Denies any bone, joint or muscle pain IMAGING: DATE OF EXAM: Nov 26 2023 11:24AM [facility] 0582 - [facility] SCREENING W JOVAN / PROCEDURE REASON: multiple diagnoses * * * * Physician Interpretation * * * * RESULT: THIS REPORT HAS BEEN AMENDED. #[id number] - [facility] SCREENING W JOVAN UNILATERAL LEFT DIGITAL SCREENING MAMMOGRAM TOMOSYNTHESIS WITH CAD: 11/26/2023 HISTORY: Multiple Diagnoses /Screening Mammogram with JOVAN - patient reports NO breast symptoms /priors available for comparison. RESULT: TECHNIQUE: The study was acquired using full field digital technology and interpreted from soft copy. Digital Breast Tomosynthesis (DBT) images were obtained and used to assist in the interpretation of this examination. Current study was also evaluated with a Computer Aided Detection (CAD). Comparison is made to exams dated: 11/10/2022 mammogram and 12/22/2022 mammogram - [facility]. There are scattered areas of fibroglandular density in the left breast. Left mastectomy. No significant masses, calcifications, or other findings are seen in the breast. There has been no significant interval change. IMPRESSION: BENIGN FINDING There is no mammographic evidence of malignancy. A 1 year screening mammogram is recommended. Gordon Hoffman M.D. pt/hamzah:2023 09:17:03 AMENDMENT: 2023 Gordon Hoffman M.D. Amendment to correct the patient had a RIGHT mastectomy. No suspicious findings in the left breast. Amended BI-RADS: 2 Benign finding letter sent: Normal - Films Compared Marketing Operations Specialist: Hamzah Transcribe Date/Time: Nov 26 2023 11:01A Dictated by: GORDON HOFFMAN MD EXAMINATION: GEN alert and orientated, well nourished, calm Regional Lymph Nodes There is no concerning supraclavicular, infraclavicular or cervical lymphadenopathy. BREASTS: The patient was examined in the upright and supine position. RIGHT breast surgically absent with mild hyperpigmentation s/p radiation treastments. Soft, no dominant masses, no NAC, no discharge, no skin changes. Horizontal incision well healed RIGHT axilla no palpable axillary lymphadenopathy LEFT breast soft, no dominant masses, nipple everted, no discharge, no skin changes LEFT axilla no palpable axillary lymphadenopathy ABD soft, non-distended, non-tender, no organomegaly EXT ambulated independently, good ROM of upper extremities, no evidence of lymphedema IMPRESSION: Suleiman Ramsey, 78 year old year old female, s/p a RIGHT mastectomy, RIGHT sentinel lymph node mapping and biopsy (No reconstruction) performed by Dr. Parkinson (Breast Surgeon) on 01/09/2023 Final pathology reports IDC, 7.0 cm (margins clear), Grade 3, 0/2 LN, -LVI ER+, CA+, HER2- PATHOLOGICAL STAGE RIGHT BREAST: p,T3,N0 SOZO LDEX LEFT arm -0.1 12/22/2022 LDEX LEFT arm -2.0 02/27/2024 No clinical or mammographic evidence of disease process today PLAN: L-DEX results discussed and negative for subclinical evidence of lymphedema. Ms. Ramsey will follow-up with WHIT Berger, (Medical Oncology) as scheduled, 03/03/2024. She understands the importance of follow up after completion of Breast Cancer Treatments. Guidelines reviewed and include clinical examinations every six month with annual mammograms for fiv (more content not included)... [facility]-2024 Free T3 [Mass/Vol] 1.8 pg/mL Low 2.18-3.98 [facility] Comment on above: Performed By: #### L 500.4050, L501.2450, L100.0100, L501.5425 #### [facility] [address] [place], [address] Protein+Creatinine Ratio,Uri neon 02-21-2024 PROT:CRE RATIO 298 mg/g CRE High 0-200 [facility] Comment on above: Performed By: #### L 500.4050, L501.2450, L100.0100, L501.5425 #### [facility] [address] [place], [address] Protein (U) [Mass/Vol] 36.9 mg/dL High <11.9 [facility] Comment on above: Performed By: #### L 500.4050, L501.2450, L100.0100, L501.5425 #### [facility] [address] [place], [address] UR CREAT 124.00 mg/dL Normal NO RANGE EST. [facility] Comment on above: Performed By: #### L 500.4050, L501.2450, L100.0100, L501.5425 #### [facility] [address] [place], [address] T4 Free Directon 02-21-2024 T4 FREE DIRECT 1.24 ng/dL Normal 0.76-1.46 [facility] Comment on above: Performed By: #### L 500.4050, L501.2450, L100.0100, L501.5425 #### [facility] [address] [place], [address] Thyroid Stim Hormone (TSH)on 02-21-2024 TSH 5.660 uIU/mL High 0.358-3.74 0 [facility] Comment on above: Performed By: #### L 500.4050, L501.2450, L100.0100, L501.5425 #### [facility] [address] [place], [address] CNOVon 01-28-2024 CNOV Office Visit (OBGYWM ) SULEIMAN RAMSEY ([id number]) 1945 F Date Time Provider Department 01/28/24 9:40 AM MARSHAL PARK OBGYWLupe During your visit today, we recorded the following information about you: Blood pressure Weight Height 130/94 78.9 kg 1.537 m Marshal Park MD 01/28/2024 12:50 PM Signed Supervisor Communications And Signals offered: Patient declinesRosaura Falcon is a 78 year old who presents for an annual gynecologic exam without complaints. Postmenopausal: Yes Denies post menopausal bleeding HRT use: No. Last Pap: 05/03/2011 normal HPV: 02/11/2007 negative History of abnormal pap: Yes Last mammogram: 2023 History of abnormal mammogram: H/o breast cancer OB History T0 L3 SAB0 IAB0 Ectopic0 Multiple0 Live Births0 Safety Leader History LMP: Postmenopausal Age at Menarche: Age at First : Age at Menopause: Safety Leader History Comments: Menarche: 12; Age at 1st : 22; Post menopausal Sexual Activity: Not Currently; Male Contraception: No contraception data on record PAST MEDICAL HISTORY Diagnosis Date Breast cancer [...] Paternal Grandfather Anesthesia Problems No Family History SOCIAL HISTORY Social History Tobacco Use Smoking status: Former Current packs/day: 0.00 Types: Cigarettes Quit date: 05/14/1980 Years since quittin.7 Smokeless tobacco: Never Vaping Use Vaping status: Never Used Substance Use Topics Alcohol use: Yes Comment: one a Year Drug use: No REVIEW OF SYSTEMS Abdomen: No abdominal pain, nausea, vomiting, diarrhea, or constipation. No bloating, early satiety, indigestion, or increased flatulence. Bladder: No dysuria, gross hematuria, urinary frequency, urinary urgency, or incontinence Breast: No breast lumps, nipple d/c, overlying skin changes, redness or skin retraction Allergies and current medication updated:Yes SENSITIVE EXAM: The sensitive examination was discussed with the Patient or Patient's Authorized Waterworks Supervisor. As applicable, any other physician, advance practice provider, medical student, or other health professional student that will be observing or involved in the sensitive examination for educational or training purposes was discussed with the Patient or Authorized Waterworks Supervisor. The Patient or Authorized Waterworks Supervisor has agreed to proceed with the sensitive examination. (Sensitive examination includes inspection and/or palpation of the breasts, pelvis, prostate and anorectal regions). EXAM: BP 130/94 Ht 5' .5 (1.54m) Wt 174 lb (78.9kg) BMI 33.41 kg/(m2). GENERAL: pleasant, female in no apparent distress HEENT: Normocephalic and atraumatic NECK: full range of motion BREAST: Left breast soft, non-tender, no dominant mass, normal nipple-areolar complex, no lymphadenopathy, and no nipple discharge. Right mastectomy noted CHEST: Normal inspiratory effort ABDOMEN: soft, non-tender, and no masses PELVIC: external genitalia normal, normal Bartholin's glands, urethra, Jennings's glands, no vulvar lesions, no cervical lesions, physiologic discharge present, normal appearing perineal body and perianal region BIMANUAL: uterus normal size, shape and consistency, no adnexal masses, and non-tender RECTOVAGINAL: deferred. NEURO: exam grossly non-focal EXTREMITIES: normal ASSESSMENT/PLAN: 1) Health maintenance: Pap/HPV screening no longer needed Mammogram up to date Nutrition, exercise and routine health maintenance exams reviewed. Colon cancer screening: followed by PCP TSH/lipids/glucose: followed by PCP BMD: followed by PCP 2) Follow up one year or sooner as needed Marshal Park DO Allergies As of Date: 01/28/2024 (No Known Allergies) Date Reviewed: 01/28/2024 Reviewed by: Brittany Leyva MA - Fully Assessed Reason for Visit: Well Woman [1463] Primary Visit Diagnosis:Encounter for gynecological examination (general) (routine) without abnormal fin (more content not included)... Normal [facility] CBC-Complete Blood Cnt No Di ffon 01-04-2024 Erythrocyte distribution width (RBC) [Ratio] 13.9 % Normal 11.6-14.6 [facility] Comment on above: Performed By: #### L 500.4050, L501.2450, L100.0100, L501.5425 #### [facility] [address] [place], [address] Hematocrit (Bld) [Volume fraction] 35.3 % Low 37-47 [facility] Comment on above: Performed By: #### L 500.4050, L501.2450, L100.0100, L501.5425 #### [facility] [address] [place], [address] Hemoglobin (Bld) [Mass/Vol] 11.3 g/dL Low 12.0-15.0 [facility] Comment on above: Performed By: #### L 500.4050, L501.2450, L100.0100, L501.5425 #### [facility] [address] [place], [address] MCH (RBC) [Entitic mass] 30.0 pg Normal 27.0-32.0 [facility] Comment on above: Performed By: #### L 500.4050, L501.2450, L100.0100, L501.5425 #### [facility] [address] [place], [address] MCHC (RBC) [Mass/Vol] 32.0 g/dL Normal 32-36 [facility] Comment on above: Performed By: #### L 500.4050, L501.2450, L100.0100, L501.5425 #### [facility] [address] [place], [address] MCV (RBC) [Entitic vol] 93.6 fL Normal 81-99 [facility] Comment on above: Performed By: #### L 500.4050, L501.2450, L100.0100, L501.5425 #### [facility] [address] [place], [address] Platelet mean volume (Bld) [Entitic vol] 10.3 fL Normal 6.2-12.0 [facility] Comment on above: Performed By: #### L 500.4050, L501.2450, L100.0100, L501.5425 #### [facility] [address] [place], [address] Platelets (Bld) [#/Vol] 273 10*3/uL Normal 150-450 [facility] Comment on above: Performed By: #### L 500.4050, L501.2450, L100.0100, L501.5425 #### [facility] [address] [place], [id number] RBC (Bld) [#/Vol] 3.77 10*6/uL Low 4.2-5.4 [facility] Comment on above: Performed By: #### L 500.4050, L501.2450, L100.0100, L501.5425 #### [facility] [address] [place], [address] RDW SD 46.6 fl High 35.1-43.9 [facility] Comment on above: Performed By: #### L 500.4050, L501.2450, L100.0100, L501.5425 #### [facility] [address] [place], [address] WBC (Bld) [#/Vol] 8.8 10*3/uL Normal 4.4-11.0 [facility] Comment on above: Performed By: #### L 500.4050, L501.2450, L100.0100, L501.5425 #### [facility] [address] [place], [id number] Comprehensive Metabolic [facility] 01-04-2024 Albumin [Mass/Vol] 3.4 g/dL Normal 3.2-5.0 [facility] Comment on above: Performed By: #### L 500.4050, L501.2450, L100.0100, L501.5425 #### [facility] [address] [place], [address] Albumin/Globulin [Mass ratio] 0.8 {ratio} Low 0.9-2.4 [facility] Comment on above: Performed By: #### L 500.4050, L501.2450, L100.0100, L501.5425 #### [facility] [address] [place], [id number] ALK P 126 U/L High 45-117 [facility] Comment on above: Performed By: #### L 500.4050, L501.2450, L100.0100, L501.5425 #### [facility] [address] [place], [address] ALT [Catalytic activity/Vol] 24 U/L Normal 13-56 [facility] Comment on above: Performed By: #### L 500.4050, L501.2450, L100.0100, L501.5425 #### [facility] [address] [place], [address] AST [Catalytic activity/Vol] 52 U/L High 15-37 [facility] Comment on above: Performed By: #### L 500.4050, L501.2450, L100.0100, L501.5425 #### [facility] [address] [place], [address] Bilirubin [Mass/Vol] 0.40 mg/dL Normal 0.20-1.00 [facility] Comment on above: Result Comment: For patients on eltrombopag therapy, use of Dimension [place] TBIL is not recommended. Performed By: #### L 500.4050, L501.2450, L100.0100, L501.5425 #### [facility] [address] [place], [address] BUN/CRE 24.8 RATIO High 10-20 [facility] Comment on above: Performed By: #### L 500.4050, L501.2450, L100.0100, L501.5425 #### [facility] [address] [place], [address] CA,Total 9.3 mg/dL Normal 8.5-10.1 [facility] Comment on above: Performed By: #### L 500.4050, L501.2450, L100.0100, L501.5425 #### [facility] [address] [place], [address] Chloride [Moles/Vol] 103 mmol/L Normal 98-107 [facility] Comment on above: Performed By: #### L 500.4050, L501.2450, L100.0100, L501.5425 #### [facility] [address] [place], [address] CO2 [Moles/Vol] 19.0 mmol/L Low 21.0-32.0 [facility] Comment on above: Performed By: #### L 500.4050, L501.2450, L100.0100, L501.5425 #### [facility] [address] [place], [address] Creatinine [Mass/Vol] 1.09 mg/dL High 0.55-1.02 [facility] Comment on above: Result Comment: The validity of the calculated GFR GFRAA in patients over 70 years has not been determined. Clinical correlation is essential. Performed By: #### L 500.4050, L501.2450, L100.0100, L501.5425 #### [facility] [address] [place], [address] EST GFR - AA 62 mL/min Normal >60 [facility] Comment on above: Result Comment: Afri can Swiss GFR Calc Performed By: #### L 500.4050, L501.2450, L100.0100, L501.5425 #### [facility] [address] [place], [address] GAP 12 Normal 5-15 [facility] Comment on above: Performed By: #### L 500.4050, L501.2450, L100.0100, L501.5425 #### [facility] [address] [place], [address] GFR/1.73 sq M.predicted among non-blacks MDRD (S/P/Bld) [Vol rate/Area] 52 mL/min/{1.73_m2} Low >60 [facility] Comment on above: Result Comment: Non- GFR Calc Performed By: #### L 500.4050, L501.2450, L100.0100, L501.5425 #### [facility] [address] [place], [address] Globulin (S) [Mass/Vol] 4.2 g/dL Normal 2.2-4.2 [facility] Comment on above: Performed By: #### L 500.4050, L501.2450, L100.0100, L501.5425 #### [facility] [address] [place], [address] Glucose [Mass/Vol] 323 mg/dL High 74-106 [facility] Comment on above: Result Comment: Gluc ose result greater than or equal to 200 mg/dL suggests DIABETES MELLITUS per A.D.A. criteria. Performed By: #### L 500.4050, L501.2450, L100.0100, L501.5425 #### [facility] [address] [place], [address] Potassium [Moles/Vol] 4.5 mmol/L Normal 3.5-5.1 [facility] Comment on above: Performed By: #### L 500.4050, L501.2450, L100.0100, L501.5425 #### [facility] [address] [place], [address] Sodium [Moles/Vol] 134 mmol/L Low 136-145 [facility] Comment on above: Performed By: #### L 500.4050, L501.2450, L100.0100, L501.5425 #### [facility] [address] [place], [address] T PROT 7.6 g/dL Normal 6.4-8.2 [facility] Comment on above: Performed By: #### L 500.4050, L501.2450, L100.0100, L501.5425 #### [facility] [address] [place], [address] Urea nitrogen [Mass/Vol] 27 mg/dL High 7-18 [facility] Comment on above: Performed By: #### L 500.4050, L501.2450, L100.0100, L501.5425 #### [facility] [address] [place], [address] Free T3on 01-04-2024 Free T3 [Mass/Vol] 1.5 pg/mL Low 2.18-3.98 [facility] Comment on above: Performed By: #### L 500.4050, L501.2450, L100.0100, L501.5425 #### [facility] [address] [place], [address] Hemoglobin A1con 01-04-2024 HbA1c (Bld) [Mass fraction] 7.7 % High 3.8-5.6 [facility] Comment on above: Result Comment: Norm al < 5.7 % Prediabetic 5.7 - 6.4 % Diabetic >or= 6.5 % Please note range changes. Performed By: #### L 500.4050, L501.2450, L100.0100, L501.5425 #### [facility] [address] [place], [address] Lipid Profileon 01-04-2024 Cholesterol [Mass/Vol] 107 mg/dL Normal 200 [facility] Comment on above: Result Comment: <200 mg/dL Desirable 200-240 mg/dL Borderline >240 mg/dL High Risk Performed By: #### L 500.4050, L501.2450, L100.0100, L501.5425 #### [facility] [address] [place], [address] Cholesterol in HDL [Mass/Vol] 36 mg/dL Low [facility] Comment on above: Result Comment: The drugs N-Acetylcysteine and Metamizole may falsely depress this assay. Reference Range HDL <40 mg/dL Low HDL Cholesterol HDL >or= 60 mg/dL High HDL Cholesterol Performed By: #### L 500.4050, L501.2450, L100.0100, L501.5425 #### [facility] [address] [place], [address] LDL TNP Normal 0-130 [facility] Comment on above: Performed By: #### L 500.4050, L501.2450, L100.0100, L501.5425 #### [facility] [address] [place], [address] Triglyceride [Mass/Vol] 410 mg/dL High [facility] Comment on above: Result Comment: The drugs N-Acetylcysteine and Metamizole may falsely depress this assay. TRIGLYCERIDE IS GREATER THAN 400 mg/dL. LDL RESULT IS INVALID AND WILL NOT BE REPORTED. Serum Triglycerides Reference Interval Normal <150 mg/dL Borderline high 150 - 199 mg/dL High 200 - 499 mg/dL Very High > or = 500 mg/dL Performed By: #### L 500.4050, L501.2450, L100.0100, L501.5425 #### [facility] [address] [place], [address] VLDL TNP Normal 5-40 [facility] Comment on above: Performed By: #### L 500.4050, L501.2450, L100.0100, L501.5425 #### [facility] [address] [place], [address] Microalb:Creat Ratio,Random URon 01-04-2024 Creatinine [Mass/Vol] 97.80 mg/dL Normal NO RAN GE EST. [facility] Comment on above: Performed By: #### L 500.4050, L501.2450, L100.0100, L501.5425 #### [facility] [address] [place], [address] MALB:CRE 50.6 mg/g CRE High <30 mg/g CRE [facility] Comment on above: Performed By: #### L 500.4050, L501.2450, L100.0100, L501.5425 #### [facility] [address] [place], [address] MICROALBUMIN,UR 49.5 mg/L Normal NO RANGE EST. [facility] Comment on above: Performed By: #### L 500.4050, L501.2450, L100.0100, L501.5425 #### [facility] [address] [place], [address] Thyroid Stim Hormone (TSH)on 01-04-2024 TSH 13.000 uIU/mL High 0.358-3.74 0 [facility] Comment on above: Performed By: #### L 500.4050, L501.2450, L100.0100, L501.5425 #### [facility] [address] [place], [address] CNOVSPon 12-11-2023 CNOVSP Visit (SP) Office (H EMAWS) SULEIMAN RAMSEY ([id number]) 1945 F Date Time Provider Department 12/11/23 10:00 AM SUSAN WILKINSON During your visit today, we recorded the following information about you: Temperature Pulse Blood pressure Weight 97.2 degrees 77/minute 152/83 78.9 kg Susan Wilkinson APRN.CNP 12/12/2023 12:03 PM Signed Chief Complaint Patient presents with: Established Patient HPI: Suleiman Ramsey is a 78 year old female who presents here today for follow up breast cancer. Per Dr. Chowdhury's previous note: H/o hypertension, left bundle branch block, hypercholesterolemia, hypothyroidism, diabetes, atrophic vaginitis and rosacea. Patient noted a mass in her right breast approximately 6 months prior to presentation. She was seen by her day habilitation specialist to confirm the presence of a mass. She underwent a bilateral diagnostic mammogram with a right-sided ultrasound at [facility] 11/10/2022. The ultrasound demonstrated that the [...] 2/3. ER (clone 6F11) >95% , strong CA (clone 16/1E2) 80%, weak to moderate Her-2Neu (clone CB11) 1 - 2+ (equivocal) Patient had a CT of the chest, abdomen pelvis on 11/29/2022 at [facility]. There was a group of nodular [...] had a bone scan on 12/04/2022 at [facility]. That study demonstrated increased uptake in [...] (Acinar) / Tubular Differentiation Score 3 Nuclear Pleomorphis (more content not included)... Normal [facility] 2023 [facility] HNO ID: [id number] Author: COORDINATOR, MAMMOGRAPHY, ? Service: ? Author Type: Physician Type: Letter Filed: 2023 09:20 Note Text: 2023 PID: [id number] Suleiman Ramsey [address] [place] [address] Dear Ms. Ramsey, Your prior imaging studies have arrived and been compared to your current study. We are pleased to inform you that the results of your recent breast imaging exam on 11/26/2023 are normal. Breast tissue can be either dense or not dense. Dense tissue makes it harder to find breast cancer on a mammogram and also raises the risk of developing breast cancer. Your breast tissue is not dense. Talk to your healthcare provider about breast density, risks for breast cancer, and your individual situation. Early detection of cancer is very important. We also understand recommendations regarding breast cancer screening are controversial. Please discuss with your primary care provider which strategy is best for you and whether a mammogram is right for you. Your imaging studies and report will be kept on file at [facility] as part of your permanent medical record and are available for your continuing care. Thank you for allowing us to help in meeting your health care needs. Sincerely, Dr. Hoffman Interpreting Radiologist [facility] (Normal Old Films compared) Normal [facility] EVAN SCREENING W TOMOon 11-25 EVAN SCREENING W JOVAN * * *Final Report* * * * * * SEE BOTTOM OF REPORT FOR ADDENDED TEXT * * * DATE OF EXAM: Nov 26 2023 11:24AM [id number] - EVAN SCREENING W JOVAN / PROCEDURE REASON: multiple diagnoses * * * * Physician Interpretation * * * * RESULT: THIS REPORT HAS BEEN AMENDED. #[id number] - EVAN SCREENING W JOVAN UNILATERAL LEFT DIGITAL SCREENING MAMMOGRAM TOMOSYNTHESIS WITH CAD: 11/26/2023 HISTORY: Multiple Diagnoses /Screening Mammogram with JOVAN - patient reports NO breast symptoms /priors available for comparison. RESULT: TECHNIQUE: The study was acquired using full field digital technology and interpreted from soft copy. Digital Breast Tomosynthesis (DBT) images were obtained and used to assist in the interpretation of this examination. Current study was also evaluated with a Computer Aided Detection (CAD). Comparison is made to exams dated: 11/10/2022 mammogram and 12/22/2022 mammogram - [facility]. There are scattered areas of fibroglandular density in the left breast. Left mastectomy. No significant masses, calcifications, or other findings are seen in the breast. There has been no significant interval change. IMPRESSION: BENIGN FINDING There is no mammographic evidence of malignancy. A 1 year screening mammogram is recommended. Gordon Hoffman M.D. pt/penrad:2023 09:17:03 Benzene Operator(s): RT Roderick(R)(M), [facility] letter sent: Normal over 40 Mammogram BI-RADS: 2 Benign finding Multiple national specialty organizations have released breast cancer screening guidelines for women at average risk for developing breast cancer - guidelines that are based on both evidence and opinion, yet differ on when to start and how often to screen for breast cancer. With representation from Breast Imaging, Internal Medicine, Women's Health, Family Medicine, and Medical/Surgical Oncology, the [facility] has carefully reviewed the data and reached the following consensus: 1) All women should engage in shared decision-making with their providers to decide when to start and how often to screen; 2) All women should have the opportunity to start screening mammography at age 40; 3) For women ages 45-55, we recommend annual screening mammograms; 4) For women ages 55 and over, we support both the transition from an annual to a biennial interval if this aligns more with patient's values and preferences, or continuation with annual screening; 5) All women should discuss with their providers when to stop screening mammograms. AMENDMENT: 2023 Gordon Hoffman M.D. Amendment to correct the patient had a RIGHT mastectomy. No suspicious findings in the left breast. Amended BI-RADS: 2 Benign finding letter sent: Normal - Films Compared Marketing Operations Specialist: Hamzah Transcribe Date/Time: Nov 26 2023 11:01A Dictated by: GORDON HOFFMAN MD This examination was interpreted and the report reviewed and electronically signed by: GORDON HOFFMAN MD on 2023 9:17AM EST This document has been addended by: GORDON HOFFMAN MD on 2023 9:20AM EST [id number] Normal [facility] Magnesiumon 11-20-2023 Magnesium [Mass/Vol] 1.7 mg/dL Normal 1.6-2.6 [facility] Comment on above: Performed By: #### L 501.5200 ####[facility] [id number] [place], [address] Sixto 11-07-2023 [place]ILLA Telephone (HEMAWS) SULEIMAN RAMSEY ([id number]) 1945 F Date Time Provider Department 11/07/23 SUSAN WILKINSON During your visit today, we recorded the following information about you: Kori Mohamud 11/07/2023 10:49 AM Signed Please fax office visit note from 08/02 to PCP office at [phone]. María Jenkins LPN 11/07/2023 11:12 AM Signed Note faxed as requested. María Jenkins LPN Allergies As of Date: 11/07/2023 (No Known Allergies) Date Reviewed: 09/18/2023 Reviewed by: Mik Jameson, RN - Fully Assessed Reason for Visit: Electronic Communication [820] Prescriptions as of 11/07/2023 - vitamin B complex (SUPER B [id number] ORAL) - anastrozole (ARIMIDEX) 1 mg tablet Take 1 tablet by mouth once daily. - DULoxetine (CYMBALTA) 30 mg capsule Take 30 mg by mouth once daily. for neuropathy - Ibuprofen 200 mg cap Take 200 [...] tablets by mouth daily at bedtime. - HUMALOG KWIKPEN INSULIN 200 unit/mL (3 mL) injection - insulin glargine U-300 conc (TOUJEO SOLOSTAR U-300 INSULIN) 300 unit/mL (1.5 mL) INJECT 70 UNITS SUBCUTANEOUSLY AT BEDTIME - cholecalciferol, vitamin D3, (D3-2000 ORAL) - diphenhydrAMINE (BENADRYL) 25 mg capsule Take by mouth. - Magnesium 200 mg tab Take 400 mg by mouth once daily. 4 tablets daily Problem List As Of Date 11/07/2023 Noted Resolved Rosacea [L71.9] 08/31/2005 06/09/2012 Seborrheic [...] LBBB (left bundle branch block) [I44.7] 01/05/2023 Obesity, Class I, BMI 30-34.9 [E66.9] 01/10/2023 Encounter Status:Closed by MARÍA JENKINS on 11/07/23 Normal [facility] [facility] Basic metabolic 2000 panelon 09-18-2023 Anion gap [Moles/Vol] 9 mmol/L Normal 9-18 [facility] Comment on above: Order Comment: Sebastián esqueda Type: BLOOD SPECIMENOrdering Facility: [facility] Address: [address] [place] [address] Performed By: #### 2 4321-2 ####[facility] [id number] [place] [address] [place] Calcium [Mass/Vol] 10.1 mg/dL Normal 8.5-10.2 [facility] Comment on above: Order Comment: Speci dheeraj Type: BLOOD SPECIMENOrdering Facility: [facility] Address: [address] [place] [address] Performed By: #### 2 4321-2 ####[facility] [id number] [place] [address] [place] Chloride [Moles/Vol] 103 mmol/L Normal 97-105 [facility] Comment on above: Order Comment: Speci men Type: BLOOD SPECIMENOrdering Facility: [facility] Address: [address] [place] [address] Performed By: #### 2 4321-2 ####[facility] DAVIDWNCLIA [id number] [place] [address] [place] [facility] CO2 [Moles/Vol] 23 mmol/L Normal 22-30 [facility] Comment on above: Order Comment: Speci men Type: BLOOD SPECIMENOrdering Facility: [facility] Address: [address] [place] [address] Performed By: #### 2 4321-2 ####[facility] [id number] [address] [place] Creatinine [Mass/Vol] 0.59 mg/dL Normal 0.58-0.96 [facility] Comment on above: Order Comment: Speci men Type: BLOOD SPECIMENOrdering Facility: [facility] Address: [address] [place] [address] Performed By: #### 2 4321-2 ####[facility] [id number] [address] Creatinine and Glomerular filtration rate.predicted panel (S/P/Bld) 93 mL/min/1.73m??? Normal >=60 [facility] Comment on above: Order Comment: Speci men Type: BLOOD SPECIMENOrdering Facility: [facility] Address: [address] [place] [address] Result Comment: Payal mated Glomerular Filtration Rate (eGFR) is calculated using the 2020 CKD-EPI creatinine equation. This equation utilizes serum creatinine, sex, and age as parameters. The creatinine assay has traceable calibration to isotope dilution-mass spectrometry. Refer to KDIGO guidelines for clinical interpretation. In patients with unstable renal function, e.g. those with acute kidney injury, the eGFR may not accurately reflect actual GFR. Performed By: #### 2 4321-2 ####[facility]ITALTOWNCLIA [id number] [place] [address] [place] Glucose [Mass/Vol] 213 mg/dL High 74-99 [facility] Comment on above: Order Comment: Speci men Type: BLOOD SPECIMENOrdering Facility: [facility] Address: [address] [place] [address] Result Comment: The [place] Diabetes Association (ADA) provides guidance for cutoff values for fasting glucose and random glucose. The ADA defines fasting as no caloric intake for at least 8 hours. Fasting plasma glucose results between 100 to 125 mg/dL indicate increased risk for diabetes (prediabetes). Fasting plasma glucose results greater than or equal to 126 mg/dL meet the criteria for diagnosis of diabetes. In the absence of unequivocal hyperglycemia, results should be confirmed by repeat testing. In a patient with classic symptoms of hyperglycemia or hyperglycemic crisis, random plasma glucose results greater than or equal to 200 mg/dL meet the criteria for diagnosis of diabetes. Reference: Standards of Medical Care in Diabetes 2016, [place] Diabetes Association. Diabetes Care. 2016.39(Suppl 1). Performed By: #### 2 4321-2 ####[facility] [id number] [place] [address] [place] Potassium [Moles/Vol] 4.5 mmol/L Normal 3.7-5.1 [facility] Comment on above: Order Comment: Speci men Type: BLOOD SPECIMENOrdering Facility: [facility] Address: [address] [place] [address] Performed By: #### 2 4321-2 ####[facility]ITAL[facility]CL[facility] [id number] [place] [address] [place] Sodium [Moles/Vol] 135 mmol/L Low 136-144 [facility] Comment on above: Order Comment: Speci men Type: BLOOD SPECIMENOrdering Facility: [facility] Address: [address] [place], [place] [id number] Performed By: #### 2 4321-2 ####[facility]ITAL[facility]CL[facility] [id number] [place] [address] [place] Urea nitrogen [Mass/Vol] 22 mg/dL High 7-21 [facility] Comment on above: Order Comment: Speci men Type: BLOOD SPECIMENOrdering Facility: [facility] Address: [address] [place] [address] Performed By: #### 2 4321-2 ####[facility]IP[facility]ARC[facility] [id number] [place] [id number] [place] Basophil percentageOrdered B y: Leora Villa on 08-23-2023 Hemoglobin (Bld) [Mass/Vol] 11.0 g/dL 12.0-15.0 [facility] WBC (Bld) [#/Vol] 9.7 10*3/uL 4.4-11.0 [facility] Determination of erythrocyte mean corpuscular volume (MCV)Ordered By: Leora Villa on 08-23-2023 MCV (RBC) [Entitic vol] 89.4 fL 81-99 [facility] Erythrocyte distribution wid th ratioOrdered By: [facility] Hospitaldelvin on 08-23-2023 Erythrocyte distribution width (RBC) [Ratio] 14.6 % 11.6-14.6 [facility] Erythrocyte distribution wid th standard deviationOrdered By: Leoragerald Villa on 08-23-2023 Erythrocyte distribution width (RBC) [Entitic vol] 46.5 fL 35.1-43.9 [facility] Hematocrit Auto (Bld) [Volum e fraction]Ordered By: Leoragerald Villa on 08-23-2023 Hematocrit (Bld) [Volume fraction] 34.4 % 37-47 [facility] Iron measurement (mass/mass) Ordered By: Leora Villa on 08-23-2023 Iron (Unsp spec) [Mass/Mass] 66 ug/dL 50-170 [facility] Laboratory - Chemistry and C hemistry - challengeOrdered By: Leora Villa on 08-23-2023 Ferritin [Mass/Vol] 13 ng/mL 8-252 [facility] Laboratory - Hematology and Cell countsOrdered By: Leora Villa on 08-23-2023 MCH (RBC) [Entitic mass] 28.6 pg 27.0-32.0 [facility] MCHC (RBC) [Mass/Vol] 32.0 g/dL 32-36 [facility] Platelet mean volume (Bld) [Entitic vol] 10.6 fL 6.2-12.0 [facility] Platelets (Bld) [#/Vol] 299 10*3/uL 150-450 [facility] No Panel InformationOrdered By: Leora Villa on 08-23-2023 Folate 25.90 ng/mL 3.1-55.4 [facility] Free Triiodothyronine (T3) pg/dL 2.1 pg/mL 2.18-3.98 [facility] Total Iron Binding Capacity 433 ug/dL 250-450 [facility] RBC Auto (Bld) [#/Vol]Ordere d By: Leora Villa on 08-23-2023 RBC (Bld) [#/Vol] 3.85 10*6/uL 4.2-5.4 [facility] Laboratory - Chemistry and C hemistry - challengeOrdered By: Benny Bosch on 08-08-2023 Magnesium [Mass/Vol] 1.5 mg/dL 1.6-2.6 [facility] Absolute lymphocyte countOrd ered By: Benny Bosch on 08-01-2023 Lymphocytes Auto (Unsp spec) [#/Vol] 1.84 10*3/uL 0.83-4.51 [facility] Automated lymphocyte count a s percentage of total leukocytesOrdered By: Benny Bosch on 08-01-2023 Lymphocytes/100 WBC Auto (Unsp spec) 19.3 % 19-41 [facility] Basophil percentageOrdered B y: Benny Bosch on 08-01-2023 Basophil percentage 5-10 SEEN /hpf 0-5 [facility] Basophils/100 WBC (Bld) 1.3 % 0-1 [facility] Bilirubin [Mass/Vol] 0.40 mg/dL 0.20-1.00 [facility] Comment on above: For patients on eltr ombopag therapy, use of Dimension [place] TBIL is not recommended. Chloride [Moles/Vol] 105 mmol/L 98-107 [facility] Cholesterol [Mass/Vol] 91 mg/dL <200 [facility] Comment on above: <200 mg/dL Desirable 200-240 mg/dL Borderline >240 mg/dL High Risk Eosinophils/100 WBC (Bld) 4.6 % 0-5 [facility] Glucose [Mass/Vol] 187 mg/dL 74-106 [facility] Comment on above: Fasting Glucose resu lt greater than or equal to 126 mg/dL suggests DIABETES MELLITUS per A.D.A. criteria. Hemoglobin (Bld) [Mass/Vol] 10.3 g/dL 12.0-15.0 [facility] Monocytes/100 WBC (Bld) 7.1 % 0-10 [facility] Neutrophils (Bld) [#/Vol] 6.4 10*3/uL 2.0-7.7 [facility] Neutrophils/100 WBC (Bld) 67.1 % 47-70 [facility] Potassium [Moles/Vol] 3.9 mmol/L 3.5-5.1 [facility] Protein [Mass/Vol] 7.2 g/dL 6.4-8.2 [facility] Sodium [Moles/Vol] 138 mmol/L 136-145 [facility] Triglyceride [Mass/Vol] 183 mg/dL <199 [facility] Comment on above: The drugs N-Acetylcy steine and Metamizole may falsely depress this assay.Serum Triglycerides Reference Interval Normal <150 mg/dL Borderline high 150 - 199 mg/dL High 200 - 499 mg/dL Very High > or = 500 mg/dL WBC (Bld) [#/Vol] 9.6 10*3/uL 4.4-11.0 [facility] Bilirubin Test strip Ql (U)O rdered By: Benny Bosch on 08-01-2023 Bilirubin Ql (U) Negative Negative [facility] Determination of erythrocyte mean corpuscular volume (MCV)Ordered By: Benny Bosch on 08-01-2023 MCV (RBC) [Entitic vol] 88.4 fL 81-99 [facility] Erythrocyte distribution wid th ratioOrdered By: Benny Bosch on 08-01-2023 Erythrocyte distribution width (RBC) [Ratio] 14.0 % 11.6-14.6 [facility] Erythrocyte distribution wid th standard deviationOrdered By: Benny Bosch on 08-01-2023 Erythrocyte distribution width (RBC) [Entitic vol] 44.7 fL 35.1-43.9 [facility] Hematocrit Auto (Bld) [Volum e fraction]Ordered By: Benny Bosch on 08-01-2023 Hematocrit (Bld) [Volume fraction] 32.9 % 37-47 [facility] Immature granulocytes/100 WB C Auto (Bld)Ordered By: Benny Bosch on 08-01-2023 Immature granulocytes/100 WBC (Bld) 0.600 % 0.0-0.9 [facility] Comment on above: IG% - Immature Granu locytes (promyelocytes, myelocytes and metamyelocytes) > 1% indicates that a LEFT SHIFT is Present. Ketones Test strip Ql (U)Ord ered By: Benny Bosch on 08-01-2023 Ketones Ql (U) Negative Negative [facility] Laboratory - Chemistry and C hemistry - challengeOrdered By: Benny Bosch on 08-01-2023 Albumin/Globulin [Mass ratio] 0.8 {ratio} 0.9-2.4 [facility] ALP [Catalytic activity/Vol] 73 U/L 45-117 [facility] ALT [Catalytic activity/Vol] 26 U/L 13-56 [facility] Cholesterol in HDL [Mass/Vol] 36 mg/dL >40 [facility] Comment on above: The drugs N-Acetylcy steine and Metamizole may falsely depress this assay. Reference Range HDL <40 mg/dL Low HDL Cholesterol HDL >or= 60 mg/dL High HDL Cholesterol Cholesterol in LDL [Mass/Vol] 18 mg/dL 0-130 [facility] CO2 [Moles/Vol] 25.0 mmol/L 21.0-32.0 [facility] Globulin (S) [Mass/Vol] 4.1 g/dL 2.2-4.2 [facility] Magnesium [Mass/Vol] 1.0 mg/dL 1.6-2.6 [facility] Urea nitrogen/Creatinine [Mass ratio] 20.1 mg/mg 10-20 [facility] Laboratory - Hematology and Cell countsOrdered By: Benny Bosch on 08-01-2023 MCH (RBC) [Entitic mass] 27.7 pg 27.0-32.0 [facility] MCHC (RBC) [Mass/Vol] 31.3 g/dL 32-36 [facility] Nucleated RBC/100 WBC (Bld) [Ratio] 0 % 0-5 [facility] Platelet mean volume (Bld) [Entitic vol] 10.3 fL 6.2-12.0 [facility] Platelets (Bld) [#/Vol] 253 10*3/uL 150-450 [facility] Mucus LM Ql (Urine sed)Order ed By: Benny Bosch on 08-01-2023 Mucus Ql (Urine sed) 0 SEEN /hpf [facility] Nitrite Test strip Ql (U)Ord ered By: Benny Bosch on 08-01-2023 Nitrite Ql (U) Negative Negative [facility] No Panel InformationOrdered By: Benny Bosch on 08-01-2023 Estimated GFR (MDRD) Amer 105 mL/min >60 [facility] Comment on above: GFR Calc Estimated GFR (MDRD) Non-Af Amer 87 mL/min >60 [facility] Comment on above: Non- GFR Calc Urine Microalbumin/Creatini ne Ratio 70.5 mg/g CRE <30 [facility] Urine RBC 0-5 SEEN /hpf 0-5 [facility] Vitamin B12 Level > 2000 pg/mL 211-911 [facility] Vitamin B6 Level 9.1 ug/L 3.4-65.2 [facility] Comment on above: Deficiency: <3.4 Mar ginal: 3.4 - 5.1 Adequate: >5.1 Vitamin D 25-Hydroxy 45.8 ng/mL [facility] Comment on above: Vitamin D 25(OH) Sta tus Range Deficiency <20 ng/mL (50nmol/L) Insufficiency 20 - 30 ng/mL (50 - 75 nmol/L) Sufficiency 30 - 100 ng/mL (75 - 250 nmol/L) Toxicity >100 ng/mL (>250 nmol/L) VLDL Cholesterol 37 mg/dL 5-40 [facility] Protein Test strip Ql (U)Ord ered By: Benny Bosch on 08-01-2023 Protein Ql (U) 15 mg/dl Negative [facility] RBC Auto (Bld) [#/Vol]Ordere d By: Benny Bosch on 08-01-2023 RBC (Bld) [#/Vol] 3.72 10*6/uL 4.2-5.4 [facility] Serum or plasma calcium wale urement (mass/volume)Ordered By: Benny Bosch on 08-01-2023 Calcium [Mass/Vol] 9.5 mg/dL 8.5-10.1 [facility] Serum or plasma creatinine m easurement (mass/volume)Ordered By: Benny Bosch on 08-01-2023 Creatinine [Mass/Vol] 0.70 mg/dL 0.55-1.02 [facility] Comment on above: The validity of the calculated GFR & GFRAA in patients over 70 years has not been determined. Clinical correlation is essential. Serum or plasma thiamine vineet surement (mass/volume)Ordered By: Benny Bosch on 08-01-2023 Thiamine [Mass/Vol] 196.9 nmol/L 66.5-200.0 [facility] Comment on above: Performed at: [address] [id number] Director: Yogesh Ramos MD, Phone: [phone] Serum or plasma thyroid stim ulating hormone (TSH) measurement (units/volume)Ordered By: Benny Bosch on 08-01-2023 TSH Qn 1.65 uIU/mL 0.358-3.74 [facility] Serum or plasma urea nitroge n measurement (mass/volume)Ordered By: Benny Bosch on 08-01-2023 Urea nitrogen [Mass/Vol] 14 mg/dL 7-18 [facility] Squamous epithelial cells de tection in urine sediment by light microscopyOrdered By: Benny Bosch on 08-01-2023 Epithelial cells.squamous LM Ql (Urine sed) 0-5 SEEN /hpf 5-10 [facility] Thin prep Papanicolaou smear with manual screeningOrdered By: Benny Bosch on 08-01-2023 Thin prep Papanicolaou smear with manual screening 3.1 g/dL 3.2-5.0 [facility] Thin prep Papanicolaou smear with manual screening 57 U/L 15-37 [facility] Thin prep Papanicolaou smear with manual screening 8 5-15 [facility] Thin prep Papanicolaou smear with manual screening 61.4 mg/L NO RANGE EST. [facility] Thin prep Papanicolaou smear with manual screening 1.50 ng/dL 0.76-1.46 [facility] Urine blood detectionOrdered By: Benny Bosch on 08-01-2023 RBC Ql (U) Negative Negative [facility] Urine clarityOrdered By: Shmuel Bosch on 08-01-2023 Clarity (U) Clear Clear [facility] Urine color determinationOrd ered By: Benny Bosch on 08-01-2023 Color (U) Yellow Yellow [facility] Urine creatinine measurement (mass/volume)Ordered By: Benny Bosch on 08-01-2023 Creatinine (U) [Mass/Vol] 87.10 mg/dL NO RANGE EST. [facility] Urine glucose detectionOrder ed By: Benny Bosch on 08-01-2023 Glucose Ql (U) Normal mg/dl Normal [facility] Urine leukocyte esterase det ection by dipstickOrdered By: Benny Bosch on 08-01-2023 Leukocyte esterase Test strip Ql (U) 100 /ul Negative [facility] Urine pHOrdered By: Benny cowan on 08-01-2023 pH (U) 6.0 [pH] 5.0 - 8.0 [facility] Urine sediment bacteria coun t by microscopy (number/high power field)Ordered By: Benny Bosch on 08-01-2023 Bacteria LM.HPF (Urine sed) [#/Area] 1 /[HPF] None Seen [facility] Urine specific gravity measu rementOrdered By: Benny Bosch on 08-01-2023 Specific gravity (U) [Rel density] 1.015 1.002-1.03 0 [facility] Urine urobilinogen measureme ntOrdered By: Benny Bosch on 08-01-2023 Urobilinogen Ql (U) Normal mg/dl Normal [facility] Whole blood hemoglobin A1c/t otal hemoglobin ratio (mass fraction)Ordered By: Benny Bosch on 08-01-2023 HbA1c (Bld) [Mass fraction] 8.0 % 3.8-5.6 [facility] Comment on above: Normal < 5.7 % Predi abetic 5.7 - 6.4 % Diabetic >or= 6.5 % Please note range changes. Basophil percentageOrdered B y: Anuj Elizabeth on 06-28-2023 Basophil percentage >100 SEEN /hpf 0-5 [facility] Bilirubin Test strip Ql (U)O rdered By: Anuj Elizabeth on 06-28-2023 Bilirubin Ql (U) Negative Negative [facility] Culture, urineOrdered By: Walker Elizabeth on 06-28-2023 Bacteria identified Cx Nom (U) Escherichia coli [facility] Bacteria identified Cx Nom (U) Escherichia coli [facility] Ketones Test strip Ql (U)Ord ered By: Anuj Elizabeth on 06-28-2023 Ketones Ql (U) Negative Negative [facility] Laboratory - Chemistry and C hemistry - challengeon 06-28-2023 Bilirubin Ql (U) Negative [facility] Glucose Ql (U) Negative [facility] Ketones Ql (U) Negative [facility] pH (U) 7.0 [pH] [facility] Specific gravity (U) [Rel density] 1.010 [facility] Urobilinogen (U) [Mass/Vol] 0.9093766 mg/dL [facility] Laboratory - Hematology and Cell countson 06-28-2023 Hemoglobin Ql (U) Moderate [facility] Laboratory - Specimen inform ationon 06-28-2023 Clarity (U) Cloudy [facility] Color (U) YELLOW [facility] Laboratory - Urinalysison Nitrite Ql (U) Negative [facility] Protein Ql (U) Negative [facility] Mucus LM Ql (Urine sed)Order ed By: Anuj Elizabeth on 06-28-2023 Mucus Ql (Urine sed) 0 SEEN /hpf [facility] Nitrite Test strip Ql (U)Ord ered By: Anuj Elizabeth on 06-28-2023 Nitrite Ql (U) Positive Negative [facility] No Panel InformationOrdered By: Anuj Elizabeth on 06-28-2023 Urine RBC 0 SEEN /hpf 0-5 [facility] No Panel Informationon 06-28 Urine Leukocytes Positive [facility] Urine Non-Hemolyzed Blood Negative [facility] Protein Test strip Ql (U)Ord ered By: Anuj Elizabeth on 06-28-2023 Protein Ql (U) 30 mg/dl Negative [facility] Squamous epithelial cells de tection in urine sediment by light microscopyOrdered By: Anuj Elizabeth on 06-28-2023 Epithelial cells.squamous LM Ql (Urine sed) 0-5 SEEN /hpf 5-10 [facility] Urine blood detectionOrdered By: Anuj Elizabeth on 06-28-2023 RBC Ql (U) 25 /ul Negative [facility] Urine clarityOrdered By: Sarath Elizabeth on 06-28-2023 Clarity (U) Sl. Cloudy Clear [facility] Urine color determinationOrd ered By: Anuj Elizabeth on 06-28-2023 Color (U) Yellow Yellow [facility] Urine glucose detectionOrder ed By: Anuj Elizabeth on 06-28-2023 Glucose Ql (U) Normal mg/dl Normal [facility] Urine leukocyte esterase det ection by dipstickOrdered By: Anuj Elizabeth on 06-28-2023 Leukocyte esterase Test strip Ql (U) 500 /ul Negative [facility] Urine pHOrdered By: Anuj gaitan on 06-28-2023 pH (U) 8.0 [pH] 5.0 - 8.0 [facility] Urine sediment bacteria coun t by microscopy (number/high power field)Ordered By: Anuj Elizabeth on 06-28-2023 Bacteria LM.HPF (Urine sed) [#/Area] 1 /[HPF] None Seen [facility] Urine specific gravity measu rementOrdered By: Anuj Elizabeth on 06-28-2023 Specific gravity (U) [Rel density] 1.010 1.002-1.03 0 [facility] Urine urobilinogen measureme ntOrdered By: Anuj Elizabeth on 06-28-2023 Urobilinogen Ql (U) Normal mg/dl Normal [facility] Basophil percentageOrdered B y: Annmarie Saunders on 05-21-2023 Basophil percentage 0 SEEN /hpf 0-5 [facility] Bilirubin Test strip Ql (U)O rdered By: Annmarie Saunders on 05-21-2023 Bilirubin Ql (U) Negative Negative [facility] Culture, urineOrdered By: Onel Saunders on 05-21-2023 Bacteria identified Cx Nom (U) Culture exhibits no growth. [facility] Bacteria identified Cx Nom (U) Culture exhibits no growth. [facility] Ketones Test strip Ql (U)Ord ered By: Annmarie Saunders on 05-21-2023 Ketones Ql (U) Negative Negative [facility] Mucus LM Ql (Urine sed)Order ed By: Annmarie Saunders on 05-21-2023 Mucus Ql (Urine sed) 0 SEEN /hpf [facility] Nitrite Test strip Ql (U)Ord ered By: Annmarie Saunders on 05-21-2023 Nitrite Ql (U) Negative Negative [facility] Protein Test strip Ql (U)Ord ered By: Annmarie Saunders on 05-21-2023 Protein Ql (U) Negative Negative [facility] Squamous epithelial cells de tection in urine sediment by light microscopyOrdered By: Annmarie Saunders on 05-21-2023 Epithelial cells.squamous LM Ql (Urine sed) 0 SEEN /hpf 5-10 [facility] Urine blood detectionOrdered By: Annmarie Saunders on 05-21-2023 RBC Ql (U) Negative Negative [facility] RBC Ql (U) 0 SEEN /hpf 0-5 [facility] Urine clarityOrdered By: Cameron Saunders on 05-21-2023 Clarity (U) Clear Clear [facility] Urine color determinationOrd ered By: Annmarie Saunders on 05-21-2023 Color (U) Yellow Yellow [facility] Urine glucose detectionOrder ed By: Annmarie Saunders on 05-21-2023 Glucose Ql (U) Normal mg/dl Normal [facility] Urine leukocyte esterase det ection by dipstickOrdered By: Annmarie Saunders on 05-21-2023 Leukocyte esterase Test strip Ql (U) Negative Negative [facility] Urine pHOrdered By: Dru Saunders on 05-21-2023 pH (U) 6.0 [pH] 5.0 - 8.0 [facility] Urine sediment bacteria coun t by microscopy (number/high power field)Ordered By: Annmarie Saunders on 05-21-2023 Bacteria LM.HPF (Urine sed) [#/Area] 0 /[HPF] None Seen [facility] Urine specific gravity measu rementOrdered By: Annmarie Saunders on 05-21-2023 Specific gravity (U) [Rel density] 1.015 1.002-1.03 0 [facility] Urobilinogen Auto test strip Ql (U)Ordered By: Annmarie Saunders on 05-21-2023 Urobilinogen Ql (U) Normal mg/dl Normal [facility] Laboratory - Chemistry and C hemistry - challengeon 05-19-2023 Bilirubin Ql (U) Negative [facility] Glucose Ql (U) Negative [facility] Ketones Ql (U) Negative [facility] pH (U) 5.0 [pH] [facility] Specific gravity (U) [Rel density] 1.010 [facility] Urobilinogen (U) [Mass/Vol] Negative [facility] Laboratory - Hematology and Cell countson 05-19-2023 Hemoglobin Ql (U) Negative [facility] Laboratory - Specimen inform ationon 05-19-2023 Clarity (U) Turbid [facility] Color (U) YELLOW [facility] Laboratory - Urinalysison Nitrite Ql (U) Negative [facility] Protein Ql (U) Negative [facility] No Panel Informationon 05-19 Urine Leukocytes Positive [facility] Urine Non-Hemolyzed Blood Negative [facility] Basophil percentageOrdered B y: Leora Villa on 05-15-2023 Bilirubin [Mass/Vol] 0.40 mg/dL 0.20-1.00 [facility] Comment on above: For patients on eltr ombopag therapy, use of Dimension [place] TBIL is not recommended. Chloride [Moles/Vol] 105 mmol/L 98-107 [facility] Cholesterol [Mass/Vol] 105 mg/dL <200 [facility] Comment on above: <200 mg/dL Desirable 200-240 mg/dL Borderline >240 mg/dL High Risk Glucose [Mass/Vol] 217 mg/dL 74-106 [facility] Comment on above: Glucose result great er than or equal to 200 mg/dLsuggests DIABETES MELLITUS per A.D.A. criteria. Potassium [Moles/Vol] 3.7 mmol/L 3.5-5.1 [facility] Protein [Mass/Vol] 7.5 g/dL 6.4-8.2 [facility] Sodium [Moles/Vol] 139 mmol/L 136-145 [facility] Triglyceride [Mass/Vol] 304 mg/dL <199 [facility] Comment on above: The drugs N-Acetylcy steine and Metamizole may falsely depress this assay.Serum Triglycerides Reference Interval Normal <150 mg/dL Borderline high 150 - 199 mg/dL High 200 - 499 mg/dL Very High > or = 500 mg/dL Laboratory - Chemistry and C hemistry - challengeOrdered By: Leora Villa on 05-15-2023 ALP [Catalytic activity/Vol] 93 U/L 45-117 [facility] ALT [Catalytic activity/Vol] 20 U/L 13-56 [facility] CO2 [Moles/Vol] 24.0 mmol/L 21.0-32.0 [facility] Free T4 [Mass/Vol] 1.25 ng/dL 0.76-1.46 [facility] Globulin (S) [Mass/Vol] 4.1 g/dL 2.2-4.2 [facility] Urea nitrogen/Creatinine [Mass ratio] 18.8 mg/mg 10-20 [facility] No Panel InformationOrdered By: Leora Villa on 05-15-2023 Estimated GFR (MDRD) Amer 90 mL/min >60 [facility] Comment on above: GFR Calc Estimated GFR (MDRD) Non-Af Amer 74 mL/min >60 [facility] Comment on above: Non- GFR Calc Thyroid Stimulating Hormone (TSH) 4.57 uIU/mL 0.358-3.74 [facility] Urine Microalbumin/Creatini ne Ratio 49.2 mg/g CRE <30 [facility] Serum or plasma albumin wale urement (mass/volume)Ordered By: Leora Villa on 05-15-2023 Albumin [Mass/Vol] 3.4 g/dL 3.2-5.0 [facility] Serum or plasma albumin/glob ulin mass ratioOrdered By: Leora Villa on 05-15-2023 Albumin/Globulin [Mass ratio] 0.8 {ratio} 0.9-2.4 [facility] Serum or plasma calcium wale urement (mass/volume)Ordered By: Leora Villa on 05-15-2023 Calcium [Mass/Vol] 9.4 mg/dL 8.5-10.1 [facility] Serum or plasma cholesterol in HDL measurement (mass/volume)Ordered By: Leora Villa on 05-15-2023 Cholesterol in HDL [Mass/Vol] 38 mg/dL >40 [facility] Comment on above: The drugs N-Acetylcy steine and Metamizole may falsely depress this assay. Reference Range HDL <40 mg/dL Low HDL Cholesterol HDL >or= 60 mg/dL High HDL Cholesterol Serum or plasma cholesterol in VLDL measurement (mass/volume)Ordered By: Leora Villa on 05-15-2023 Cholesterol in VLDL [Mass/Vol] 61 mg/dL 5-40 [facility] Serum or plasma creatinine m easurement (mass/volume)Ordered By: Leora Villa on 05-15-2023 Creatinine [Mass/Vol] 0.80 mg/dL 0.55-1.02 [facility] Comment on above: The validity of the calculated GFR & GFRAA in patients over 70 years has not been determined. Clinical correlation is essential. Serum or plasma low density lipoprotein (LDL) cholesterol measurement (mass/volume)Ordered By: Leora Villa on 05-15-2023 Cholesterol in LDL [Mass/Vol] 6 mg/dL 0-130 [facility] Serum or plasma urea nitroge n measurement (mass/volume)Ordered By: Leora Villa on 05-15-2023 Urea nitrogen [Mass/Vol] 15 mg/dL 7-18 [facility] Thin prep Papanicolaou smear with manual screeningOrdered By: Leora Villa on 05-15-2023 Thin prep Papanicolaou smear with manual screening 44 U/L 15-37 [facility] Thin prep Papanicolaou smear with manual screening 10 5-15 [facility] Thin prep Papanicolaou smear with manual screening 55.1 mg/L NO RANGE EST. [facility] Urine creatinine measurement (mass/volume)Ordered By: Leora Villa on 05-15-2023 Creatinine (U) [Mass/Vol] 112.00 mg/dL NO RANGE EST. [facility] Whole blood hemoglobin A1c/t otal hemoglobin ratio (mass fraction)Ordered By: Leora Villa on 05-15-2023 HbA1c (Bld) [Mass fraction] 7.4 % 3.8-5.6 [facility] Comment on above: Normal < 5.7 % Predi abetic 5.7 - 6.4 % Diabetic >or= 6.5 % Please note range changes. Culture, urineOrdered By: Walker Elizabeth on 02-23-2023 Bacteria identified Cx Nom (U) Presumptive E. coli [facility] Basophil percentageOrdered B y: Anuj Elizabeth on 02-22-2023 Basophil percentage 10-25 SEEN /hpf 0-5 [facility] Bilirubin Test strip Ql (U)O rdered By: Anuj Elizabeth on 02-22-2023 Bilirubin Ql (U) Negative Negative [facility] Ketones Test strip Ql (U)Ord ered By: Anuj Elizabeth on 02-22-2023 Ketones Ql (U) Negative Negative [facility] Laboratory - Chemistry and C hemistry - challengeon 02-22-2023 Bilirubin Ql (U) Negative [facility] Glucose Ql (U) Negative [facility] Ketones Ql (U) Moderate (40+) [facility] pH (U) 5.0 [pH] [facility] Specific gravity (U) [Rel density] 1.010 [facility] Urobilinogen (U) [Mass/Vol] 0.8764538 mg/dL [facility] Laboratory - Hematology and Cell countson 02-22-2023 Hemoglobin Ql (U) Negative [facility] Laboratory - Specimen inform ationon 02-22-2023 Clarity (U) Clear [facility] Color (U) Yellow [facility] Laboratory - Urinalysison Nitrite Ql (U) Negative [facility] Protein Ql (U) Negative [facility] Mucus LM Ql (Urine sed)Order ed By: Anuj Elizabeth on 02-22-2023 Mucus Ql (Urine sed) 0 SEEN /hpf [facility] Nitrite Test strip Ql (U)Ord ered By: Anuj Elizabeth on 02-22-2023 Nitrite Ql (U) Negative Negative [facility] No Panel InformationOrdered By: Anuj Elizabeth on 02-22-2023 Urine Transitional Epithelial Cells 0-5 SEEN /hpf 0-5 [facility] No Panel Informationon 02-22 Urine Leukocytes Positive [facility] Urine Non-Hemolyzed Blood Negative [facility] Protein Test strip Ql (U)Ord ered By: Anuj Elizabeth on 02-22-2023 Protein Ql (U) Negative Negative [facility] Squamous epithelial cells de tection in urine sediment by light microscopyOrdered By: Anuj Elizabeth on 02-22-2023 Epithelial cells.squamous LM Ql (Urine sed) 0-5 SEEN /hpf 5-10 [facility] Urine blood detectionOrdered By: Anuj Elizabeth on 02-22-2023 RBC Ql (U) 10 /ul Negative [facility] RBC Ql (U) 0 SEEN /hpf 0-5 [facility] Urine clarityOrdered By: Sarath Elizabeth on 02-22-2023 Clarity (U) Clear Clear [facility] Urine color determinationOrd ered By: Anuj Elizabeth on 02-22-2023 Color (U) Yellow Yellow [facility] Urine glucose detectionOrder ed By: Anuj Elizabeth on 02-22-2023 Glucose Ql (U) Normal mg/dl Normal [facility] Urine leukocyte esterase det ection by dipstickOrdered By: Anuj Elizabeth on 02-22-2023 Leukocyte esterase Test strip Ql (U) 100 /ul Negative [facility] Urine pHOrdered By: Anuj gaitan on 02-22-2023 pH (U) 6.5 [pH] 5.0 - 8.0 [facility] Urine sediment bacteria coun t by microscopy (number/high power field)Ordered By: Anuj Elizabeth on 02-22-2023 Bacteria LM.HPF (Urine sed) [#/Area] 1 /[HPF] None Seen [facility] Urine specific gravity measu rementOrdered By: Anuj Elizabeth on 02-22-2023 Specific gravity (U) [Rel density] 1.005 1.002-1.03 0 [facility] Urobilinogen Auto test strip Ql (U)Ordered By: Anuj Elizabeth on 02-22-2023 Urobilinogen Ql (U) Normal mg/dl Normal [facility] CNOVon 02-09-2023 CNOV Office Visit (GENSF) SULEIMAN RAMSEY ([id number]) 1945 F Date Time Provider Department 02/09/23 3:00 PM ALEX DANIELLE GENSF During your visit today, we recorded the following information about you: Alex Danielle PA-C 02/19/2023 2:24 PM Addendum HISTORY: This 77 year old female is [...] clear), Grade 3, 0/2 LN, -LVI ER+, CA+, HER2- PATHOLOGICAL STAGE RIGHT BREAST: p,T3,N0 Small [...] and discomfort She will follow-up with Dr. Childs (Radiation Oncologist) as scheduled 02/22/2023, for a simulation planning. Ms. Ramsey should return for a wound/seroma check in 2 weeks (sooner if needed). She has our names and numbers to stay in touch if there are any questions, concerns or problems. SANDY Armijo Jennifer, LPN 02/09/2023 3:04 PM Signed Seroma check Last mammogram on: 11/10/22 bilateral Results: see report Is the patient active on [employer] Yes Electronically Signed By: Brandy Morales LPN In Department: GENERAL SURGERY REVIEW OF [...] Comment: one a Year Drug use: No Referring Provider: BENNY BOSCH [[id number]] Allergies As of Date: 02/09/2023 (No Known Allergies) Date Reviewed: 02/09/2023 Reviewed by: Brandy Morales LPN - Fully Assessed Reason for Visit: Established Patient [175] Primary Visit Diagnosis:Malignant neoplasm of upper-inner quadrant of right breast in female, estrogen receptor positive (HCC) [C50.211, Z17.0] Prescriptions as of 02/19/2023 - HYDROcodone-acetaminophen (NORCO) 5-325 mg per tablet Take 1 tablet by mouth every 8 hours as needed for pain. - cyanocobalamin (VITAMIN B-12) 1,000 mcg tab Take 2,000 mcg by mouth once daily. - Ibuprofen 200 mg cap Take 200 mg by mouth every 6 hours as needed for pain. - rosuvastatin (CRESTOR) 20 mg tablet Take 1 tablet by mouth once daily. (more content not included)... Normal [facility] CNOVon 01-26-2023 CNOV Office Visit (GENSF) SULEIMAN RAMSEY ([id number]) 1945 F Date Time Provider Department 01/26/23 2:30 PM ALEX DANIELLE During your visit today, we recorded the following information about you: Alex Danielle PA-C 01/26/2023 11:10 AM Signed This is a 77 year old female [...] any questions or concerns in the interim. SANDY Armijo Jennifer, LPN 01/26/2023 11:10 AM Signed Drain removal Last mammogram on: 11/10/22 bilateral Results: see report Electronically Signed By: Brandy Morales LPN In Department: GENERAL SURGERY REVIEW OF [...] Comment: one a Year Drug use: No Allergies As of Date: 01/26/2023 (No Known Allergies) Date Reviewed: 01/26/2023 Reviewed by: Brandy Morales LPN - Fully Assessed Reason for Visit: Established Patient [175] Cmt: Drain removal Primary Visit Diagnosis:Malignant neoplasm of upper-inner quadrant of right breast in female, estrogen receptor positive (HCC) [C50.211, Z17.0] Prescriptions as of 01/26/2023 - HYDROcodone-acetaminophen (NORCO) 5-325 mg per tablet [...] flared Acne Rosacea on face and neck mckayla (more content not included)... Normal [facility] CNOVon 01-19-2023 CNOV Office Visit (GENSF) SULEIMAN RAMSEY ([id number]) 1945 F Date Time Provider Department 01/19/23 1:00 PM ALEX DANIELLE GENSF During your visit today, we recorded the following information about you: Alex Danielle PA-C 01/19/2023 3:14 PM Signed BREAST CANCER POST OPERATIVE FOLLOW-UP SERVICE DATE: [...] of no special type (ductal) Histologic Grade ([place] Histologic Score) Glandular (Acinar) / Tubular Differentiation [...] Examined (sentinel and non-sentinel) 2 Number of [place] Nodes Examined 2 pTNM CLASSIFICATION (AJCC 8th [...] Negative (not amplified) Testing Performed on Comment(s) 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 ASSESSMENT: Suleiman Ramsey, 77 year old year old female, s/p a RIGHT mastectomy, RIGHT sentinel lymph node mapping and biopsy (No reconstruction) performed by Dr. 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 Normal [facility] SULE[facility] RAM[facility]Y ([id number]) 1945 F Date Time Provider Department 01/11/23 KEILA GODOY During your visit today, we recorded the following information about you: Keila Godoy, ROBBY 01/11/2023 11:03 AM Signed BREAST HEALTH NURSE POST-OP PHONE CONTACT: Suleiman Ramsey was contacted via telephone as follow-up from recent breast surgery. I spoke with her daughter as pt was sleeping at the time of this call. TOPICS ADDRESSED: PAIN ASSESSMENT: Yes LOCATION: surgical incisions PAIN CHARACTER: aching MEDICATIONS: Took one [place] last night at [facility], otherwise Tylenol prn [...] FOLLOW UP: Appt scheduled with NOVA Armijo Allergies As of Date: 01/11/2023 (No Known Allergies) Date Reviewed: 01/09/2023 Reviewed by: Cathy Villa, RN - Fully Assessed Reason for Visit: Post Op Call [[id number]] Prescriptions as of 01/11/2023 - cefADROxil (DURICEF) 500 mg capsule Take [...] eyes and eyelids. NB: Needs 3-month supply. Problem List As Of Date 01/11/2023 Noted Resolved Rosacea [L71.9] 08/31/2005 06/09/2012 Seborrheic [...] Neuropathic pain of foot [M79.2] 06/09/2012 Hyperpigmentation (more content not included)... Normal [facility] ANES POSTPROC EVALon 023 ANES POSTPROC EVAL HNO ID: [id number] Author: Nina Echols MD Service: Anesthesiology Author Type: Physician Type: Anesthesia Postprocedure Evaluation Filed: 01/15/2023 9:17 AM Note Text: POST ANESTHESIA EVALUATION NOTE : 1945 Procedure Summary Date: 01/09/23 Room / Location: OR03 / [facility] OR Anesthesia Start: 1219 Anesthesia Stop: 1508 Procedures: MASTECTOMY SIMPLE (Right: Breast) INTRAOPERATIVE ID OF SENTINEL LYMPH NODE(S) INCL'D INJECTION OF NON-RAD DYE WHEN PERFORMED (Right: Axillary) BIOPSY NODE SENTINEL AXILLARY (Right: Axillary) INJECTION PROCEDURE RADIOACTIVE TRACER FOR IDENTIFICATION OF SENTINEL NODE (Right) Diagnosis: Malignant neoplasm of upper-inner quadrant of right breast in female, estrogen receptor positive (HCC) (Malignant neoplasm of upper-inner quadrant of right breast in female, estrogen receptor positive (HCC) [C50.211, Z17.0]) Surgeons: Micki Parkinson DO Responsible Provider: Nina Echols MD Anesthesia Type: general ASA Status: 3 Anesthesia Type: general Airway Type: LMA Last Vitals Vitals Value Taken Time BP 136/52 01/10/23 0730 Temp 36.8 ?C (98.2 ?F) 01/10/23 0730 Pulse 70 01/10/23 0730 Resp 17 01/10/23 0730 SpO2 94 % 01/10/23 0730 Post Anesthesia Patient Status Patient Evaluation: PACU. PACU/ICU Patient Condition: stable. Anticipated Disposition: inpatient floor planned admission. Neurological Status: aware and responsive. Pulmonary Status: breathing comfortably on supplemental oxygen Airway Control: returned to baseline unsupported. Cardiovascular Status: stable. Pain Management: clinically adequate Postoperative Hydration: acceptable. Intraoperative Events: no significant anesthesia events Post Operative Nausea/Vomiting Status: no significant post operative nausea or vomiting Recommendation: continue current plan of care. MIPS#404 Anesthesiology Smoking Abstinence Not current smoker MIPS#424 Perioperative Temperature Management Anesthesia start to Anesthesia end time was 60 minutes or longer. (6440F), Anesthesia administered was General (Inhalational or TIVA), or Neuraxial block (X0424) MIPS#430 ADULT Prevention of Post-Operative Nausea AND Vomiting (PONV) Patient received an inhalational anesthetic (4554F), Patient does not exhibit three or more risk factors for PONV (X0430). MIPS#477 Multimodal Pain Management Not emergent case , Patient was administered multimodal pain management (two or more drugs and/or interventions excluding systemic opioids) in the perioperative period; occurring at some time between 6 hours prior to anesthesia start time until discharged from PACU. (G2148) Anesthesia Observations No Documentation SIGNATURE: Nina Echols MD PATIENT NAME: Suleiman Ramsey DATE: January 15, 2023 TIME: 9:16 AM CSN: [id number] [facility] ANES PRE-OPon 01-09-2023 ANES PRE-OP HNO ID: [id number] Author: Benji Mayo MD Service: Anesthesiology Author Type: Anesthesiologist Type: Anesthesia Preprocedure Evaluation Filed: 01/09/2023 8:28 AM Note Text: ANESTHESIOLOGY DAY OF SURGERY NOTE : 1945 Procedure Information Date/Time: 01/09/23 0945 Procedures: MASTECTOMY SIMPLE (Right: Breast) INTRAOPERATIVE ID OF SENTINEL LYMPH NODE(S) INCL'D INJECTION OF NON-RAD DYE WHEN PERFORMED (Right: Axillary) BIOPSY NODE SENTINEL AXILLARY (Right: Axillary) - sentinel injection at 9:15 am, to inject by Dr. Parkinson in [facility] OR LYMPHADENECTOMY AXILLARY COMPLETE (Right: Axillary) INJECTION PROCEDURE RADIOACTIVE TRACER FOR IDENTIFICATION OF SENTINEL NODE (Right) Location: [facility] OR03 / [facility] OR Surgeons: Micki Parkinson DO Estimated body mass index is 32.73 kg/m? as calculated from the following: Height as of 01/05/23: 154.9 cm (5' 1). Weight as of 01/05/23: 78.6 kg (173 lb 3.2 oz). Most recent hematocrit and potassium results: Hematocrit 35.8 01/05/2023 Potassium 4.0 01/05/2023 Relevant Problems CARDIO (+) Essential hypertension, benign (+) LBBB (left bundle branch block) (+) Telangiectasia ENDO (+) Unspecified hypothyroidism Endocrinology (+) Diabetes (HCC) I - PHYSICAL EVALUATION AIRWAY Patient intubated: No. Tracheostomy tube not present Mallampati: II. TM distance: >3 FB. Neck ROM: full ROM without neurological symptoms. Mouth opening: adequate. Short neck: no. Thick neck: no DENTAL Dental findings: teeth intact. Additional exam findings: no II - ANESTHESIA PLAN ASA Score: 3 Anesthetic Plan: general Airway type: LMA NPO Status: adequate Beta Josh Monitoring Plan Monitoring plan: Standard ASA. Post Procedure Analgesic Plan Postoperative analgesic plan: parenteral or oral opioids and multimodal analgesia. Informed Consent Anesthetic risks, benefits, alternatives, personnel and consent discussed: yes. Patient / Responsible Alliance Party agrees to proceed: yes Patient / Surrogate agrees to blood products: yes DNR status not reviewed with patient and/or family prior to surgery. Significant changes in the patient condition since the History and Physical, not otherwise documented in primary service progress note: no. Potential Anesthesia issues that may suggest increased risk of complications or contraindication to planned procedure: none. No vitals data found for the desired time range. Facility-Administered Medications as of 01/09/2023 Medication Dose Route Frequency - lidocaine (PF) 10 mg/mL (1 %) 1-2 mg injection (XYLOCAINE) 0.1-0.2 mL INTRADERMAL PRN - lactated ringers iv infusion 5-30 mL/hr INTRAVENOUS CONTINUOUS - NaCl 0.9% iv flush bag 20 mL INTRAVENOUS PRN - ceFAZolin iv piggyback 2 g in D5W (iso-osmotic) 100 mL (ANCEF) 2 g INTRAVENOUS Pre-Op Once - acetaminophen 1,000 mg tab(s) (TYLENOL) 1,000 mg ORAL Pre-Op Once - promethazine 12.5 mg tab(s) (PHENERGAN) 12.5 mg ORAL Pre-Op Once Outpatient Medications as of 01/09/2023 Medication Sig - rosuvastatin (CRESTOR) 20 mg tablet Take [...] SUBCUTANEOUS) (Patient not taking: Reported on 12/22/2022) - HUMALOG KWIKPEN INSULIN 200 unit/mL (3 [...] eyes and eyelids. NB: Needs 3-month supply. I have interviewed and examined the patient. I have reviewed the medical record and/or the pre-anesthesia evaluation, pertinent labs, and test results. This contains updated information obtained within 48 hours of Surgery/Procedure. SIGNATURE: Benji Mayo MD P (more content not included)... Normal [facility] BRIEF OP NOTon 01-09-2023 BRIEF OP NOT HNO ID: [id number] Author: Micki Parkinson DO Service: General Surgery Author Type: Physician Type: Brief Op Note Filed: 01/09/2023 2:12 PM Note Text: BRIEF OPERATIVE / PROCEDURE NOTE LOG ID: [id number] SURGERY/PROCEDURE DATE: 01/09/2023 INCISION/PROCEDURE START TIME: 12:42 PM INCISION CLOSE/PROCEDURE END TIME: SURGEON(S)/PROCEDURALIST(S) AND HEEL PAINTER(S): Surgeon(s) and Role: * iMcki Parkinson DO - Primary * Mabel Loredo MD - Resident - Assisting Physician Physician Neonatology: Alex Danielle PA-C SURGERY/PROCEDURE(S): RIGHT mastectomy RIGHT breast blue dye lymphatic tracer injection RIGHT breast nuclear medicine lymphatic tracer injection RIGHT sentinel lymph node biopsy ANESTHESIA: General FINDINGS: SLN x2 ESTIMATED BLOOD LOSS: 50 mls SPECIMENS: ID Type Source Tests Collected by Time Destination A : Tissue BREAST MASTECTOMY RIGHT SURGICAL PATHOLOGY Micki Parkinson, 01/09/2023 1:52 PM B : Superior radial margin. Tissue BREAST MARGIN RIGHT SURGICAL PATHOLOGY Micki Parkinson, 01/09/2023 1:54 PM C : Right sentinel lymph node x 2. Tissue SENTINEL LYMPH NODE RIGHT SURGICAL PATHOLOGY Micki Parkinson, 01/09/2023 1:56 PM D : Tissue BREAST MARGIN RIGHT SURGICAL PATHOLOGY Micki Parkinson, 01/09/2023 2:10 PM COMPLICATIONS: None CLOSURE TECHNIQUE: Primary PRE-OP/PRE-PROCEDURE DIAGNOSIS: RIGHT breast cancer POST-OP/POST-PROCEDURE DIAGNOSIS: Same as Preop SIGNATURE: Micki Parkinson DO PATIENT NAME: Suleiman Ramsey DATE: January 09, 2023 TIME: 2:08 PM [facility] SURGICAL BREAST SPECIMEN RTon 01-09-2023 [facility] SURGICAL BREAST SPECIMEN RT * * *Final Report* * * DATE OF EXAM: Jan 09 2023 1:46PM [facility] 0639 - [facility] SURGICAL BREAST SPECIMEN RT / PROCEDURE REASON: Other (document in comments) * * * * Physician Interpretation * * * * RESULT: #[id number] - [facility] SURGICAL BREAST SPECIMEN RT UNI-PLANAR RADIOGRAPH SPECIMEN IMAGING RIGHT BREAST: 01/09/2023 HISTORY: Other (Document In Comments)/ Right surgical specimen. Correlation is made to exams dated: 12/22/2022 mammogram and 12/22/2022 ultrasound - [facility]. A full mastectomy specimen was imaged using uni-planar radiograph specimen imaging for the previous biopsy site located in the right breast. IMPRESSION: UNI-PLANAR RADIOGRAPH SPECIMEN IMAGING The imaged specimen includes a biopsy clip. SUMMARY: Urgent Results: The results of the specimen radiograph were discussed with Dr. Parkinson in the OR on 01/09/2023. Melissa Camejo M.D., cp/hamzah:01/09/2023 13:52:43 copy to: Gerald LA, ph: [phone] Benzene Operator(s): RT Seferino(R)(M), [facility] Multiple national specialty organizations have released breast cancer screening guidelines for women at average risk for developing breast cancer - guidelines that are based on both evidence and opinion, yet differ on when to start and how often to screen for breast cancer. With representation from Breast Imaging, Internal Medicine, Women's Health, Family Medicine, and Medical/Surgical Oncology, the [facility] has carefully reviewed the data and reached the following consensus: 1) All women should engage in shared decision-making with their providers to decide when to start and how often to screen; 2) All women should have the opportunity to start screening mammography at age 40; 3) For women ages 45-55, we recommend annual screening mammograms; 4) For women ages 55 and over, we support both the transition from an annual to a biennial interval if this aligns more with patient's values and preferences, or continuation with annual screening; 5) All women should discuss with their providers when to stop screening mammograms. Marketing Operations Specialist: Hamzah Transcribe Date/Time: Jan 09 2023 1:45P Dictated by: MELISSA CAMEJO MD This examination was interpreted and the report reviewed and electronically signed by: MELISSA CAMEJO MD on Jan 09 2023 1:52PM EST [id number] Normal [facility] NURSING PROGon 01-09-2023 NURSING PROG HNO ID: [id number] Author: Jada Morocho RN Service: Nursing Author Type: Registered Nurse Type: Nursing Progress Note Filed: 01/09/2023 8:19 AM Note Text: PATIENT EDUCATION TOPIC: PATIENT NAME: Suleiman Ramsey PATIENT LOCATION: [facility] OR POOL/[facility] OR POOL READINESS TO LEARN COGNITIVE ABILITY: Alert and oriented MOTIVATION TO LEARN: Interested FAMILY SUPPORT: Unable to assess - Family not present INSTRUCTION PROVIDED TO: Patient PATIENT LEARNS BEST BY: Individual Instruction FACTORS AFFECTING LEARNING: None PHYSICAL LIMITATIONS AFFECTING LEARNING: None LEARNING RESPONSE DIAGNOSIS: ADULT: Well Adult PATIENT/FAMILY RESPONSE: Verbalizes understanding of: PRE-OPERATIVE INSTRUCTIONS-Correct action to take to follow pre-operative instructions METHOD OF INSTRUCTION: Individual instruction FOLLOW-UP PLAN: Patient instructed to call with any further issues INSTRUCTIONAL AIDS USED: NA SUPPLEMENTAL MATERIAL PROVIDED TO PATIENT: None REFERRAL (RECOMMENDATION): None Electronically Signed By: Jada Hutchison [facility] OPERATIVE NOon 01-09-2023 OPERATIVE NO HNO ID: [id number] Author: Micki Parkinson DO Service: General Surgery Author Type: Physician Type: Operative Report Filed: 01/13/2023 9:03 AM Note Text: [facility] - Operative Report SULEIMAN RAMSEY : 1945 AGE: 77. SEX: F PATIENT TYPE: A HOSP SVC: Surgical LOCATION: [id number] ATTENDING PHYSICIAN: UNRULY NUMBER: [id number] DATE OF SURGERY/PROCEDURE: 01/09/2023 INCISION/PROCEDURE START TIME: 12:42 PM INCISION CLOSE/PROCEDURE END TIME: 2:44 PM PREOPERATIVE DIAGNOSIS: Right breast cancer upper inner quadrant. POSTOPERATIVE DIAGNOSIS: Right breast cancer upper inner quadrant. SURGEON: Micki Parkinson D.O HEEL PAINTER: 1. Mabel Loredo DO - resident. 2. NOVA Armijo. SURGERY/PROCEDURE: 1. Right breast simple mastectomy. 2. Right breast nuclear medicine injection for lymphatic mapping. 3. Right breast blue dye injection for lymphatic mapping. 4. Right axillary sentinel lymph node biopsy. ANESTHESIA: General. INDICATIONS: The patient is a 77-year-old female who was found to have a multifocal cancer in her right breast upper inner quadrant. Clinically, her lymph nodes appeared negative. Mastectomy was indicated and reconstruction was declined. The risks and benefits of surgery were discussed with her and she agreed to proceed. DESCRIPTION OF PROCEDURE: The patient was brought into the operating room, placed in supine position on the operating room table. A time-out was performed. She was identified by name and date. Site and surgery were confirmed. General anesthesia was induced. Her right breast, chest, axilla, and upper extremity were prepped and draped in the usual sterile fashion. At 1133, 400 mCi of nuclear medicine was injected into the right breast dermal area by myself at 12 o'clock position. Next a 2 mL of Isosulfan blue was injected at the 9 o'clock position, both for lymphatic mapping and the breast was massaged for approximately 5 minutes. Next, the right breast, chest, and axilla were prepped and draped in usual sterile fashion. Preop antibiotics were administered. SCDs were placed and films were reviewed. She had a large palpable cancer close to the 1 o'clock, 11 cm from the nipple position, and therefore skin was needed to be sized, horizontal elliptical incision was designed to remove skin over this area. Using a scalpel, a horizontal elliptical incision was made, superior skin flaps were made using electrocautery superiorly to the clavicle, medially to lateral portion of sternum, laterally to the latissimus dorsi, and inferiorly to the inframammary crease. The breast was then removed from the underlying chest wall in a cranial to caudal manner with care to include the underlying pectoralis fascia as a part of the specimen. Laterally, the axillary contents were identified and preserved. The breast was removed in its entirety, and orientated short stitch superior, long stitch lateral and on palpation, the closest margin was felt to be the superior radial margin. Therefore, an additional superior radial shave margin was taken over the known cancer area on the mastectomy flap and sent as a separate specimen, ink marked new specimen, large margin. The breast was sent for radiograph, which I viewed myself in the operating room, which showed that the cancer and ribbon clip were within the specimen with a good margin of tissue around. The breast was then sent to pathology for permanent sectioning. Next, through this incision, the sentinel lymph node biopsy, the surgery was able to be performed. Laterally in the axilla, the clavipectoral fascia was identified and incised. Upon dissection, there were 2 hot and blue lymph nodes identified. Any lymphatics or blood vessels going to or from the lymph nodes were clipped and ligated. The lymph nodes were removed in their entirety and sent to pathology for permanent sectioning. There were no other hot, blue, or abnormally palpable lymph nodes identified. The wound was copiously irrigated and hemostasis was achieved. A local anesthetic, mixture of 20 mL of Exparel with 20 mL of Marcaine was injected as a modified Pecs and serrated in circumferential wound block. A 15 round drain was brought through a separate stab incision below the inframammary crease and rested on the anterior chest wall. This was sewn in place with a 3-0 nylon. The mastectomy flaps were reapproximated and excess lateral skin was trimmed and sent as right breast excess lateral margin. The dermis was reapproximated with interrupted 2-0 Vicryl. The skin was closed with a running 4-0 Monocryl. Exofin glue was placed on the incision. The patient tolerated the procedure well, was extubated. A Biopatch was placed around the drain site and held in place with Tegaderm. She was wrapped with fluffs and an SÁNCHEZ wrap and sent to PACU in stable condition. ESTIMATED BLOOD LOSS: 50 mL. INTRAVE (more content not included)... Normal [facility] SURGICAL PATHOLOGYon 023 BLOCK FOR ADDITIONAL BIOMARKERS/MOLECULAR STUDIES Waterworks Supervisor tumor block: A18 [facility] Comment on above: Order Comment: Speci men Type: TISSUE SPECIMENOrdering Facility: [facility] Address: [address] [place] [address] Performed By: #### S ####[facility] [id number] [address] [place] CASE REPORT Normal [facility] Comment on above: Order Comment: Speci men Type: TISSUE SPECIMENOrdering Facility: [facility] Address: [address] [place] [address] Result Comment: Surg [facility] Pathology Report Case: [id number] Authorizing Provider: Micki Parkinson DO Collected: 01/09/2023 01:52 PM Ordering Location: [facility] Received: 01/09/2023 02:28 PM Operating Room Pathologist: Stephanie Pinto MD Specimens: A) - BREAST MASTECTOMY RIGHT B) - BREAST MARGIN RIGHT, Superior radial margin. C) - SENTINEL LYMPH NODE RIGHT, Right sentinel lymph node x 2. D) - BREAST MARGIN RIGHT, Right lateral skin margin. Performed By: #### S ####[facility] [id number] [address] OF [facility] CLINICAL HISTORY Normal [facility] Comment on above: Order Comment: Speci men Type: TISSUE SPECIMENOrdering Facility: [facility] Address: [address] [place], [place] [address] Result Comment: Pre- op diagnosis: Malignant neoplasm of upper-inner quadrant of right breast in female, estrogen receptor positive (HCC) [C50.211, Z17.0] Performed By: #### S ####[facility] LABCLIA [id number] [address] OF [facility] FINAL DIAGNOSIS Normal [facility] Comment on above: Order Comment: Speci men Type: TISSUE SPECIMENOrdering Facility: [facility] Address: [address] Result Comment: A. R ight breast, mastectomy: - Invasive ductal carcinoma, see [...] Unremarkable skin and underlying tissue. JR 01/12/2023 Performed By: #### S ####[facility] LABIA [id number] [address] FINAL PERFORMING LAB Normal [facility] Comment on above: Order Comment: Speci men Type: TISSUE SPECIMENOrdering Facility: [facility] Address: [address] [place], [place] [id number] Result Comment: Diag nostic interpretation performed at [facility], [address] [address] CLIA# [id number] [employer] Therapist: Cam Loera M.D. Performed By: #### S ####[facility] LABCLIA [id number] [address] OF [facility] GROSS DESCRIPTION Normal [facility] Comment on above: Order Comment: Speci men Type: TISSUE SPECIMENOrdering Facility: [facility] Address: [address] [place] [id number] Result Comment: A. B REAST MASTECTOMY RIGHT Received in formalin labeled breast mastectomy right is an oriented right simple mastectomy specimen measuring 22 cm (medial-lateral) by 16.5 cm (superior-inferior) by 5.5 cm (anterior-posterior) and weighing 883.2 g. The specimen is oriented per the requisition as short suture-superior and long suture-lateral. The specimen is partially surfaced on the radial margin by a london unremarkable skin ellipse measuring 19.5 cm (medial-lateral) by 14 cm (superior-inferior). The nipple and areola complex measures 4 cm in maximum diameter. The unremarkable nipple measures 1.5 x 1.3 x 0.8 cm. There are no segments of pectoralis muscle attached to the deep margin. The specimen is inked as follows: Superior radial margin-blue, inferior radial margin-green, deep margin-black. The specimen radiograph reveals a single biopsy clip. The specimen is sectioned from lateral to medial. There is an irregular, nodular, pink-white lesion with ribbon clip spanning the upper inner and upper outer quadrants measuring 7 x 6.5 x 5 cm. The lesion is situated 0.7 cm from the superior radial margin (straddling the upper quadrants) and 1.7 cm from the deep margin. The remainder the cut surfaces are composed of soft adipose tissue interspersed by dense fibrous tissue (25%). There are no additional masses or lesions. A specimen radiograph is attached to the case. Waterworks Supervisor sections are submitted as follows: A1: Lesion with superior radial margin A2: Lesion with deep margin A3-A25: Longest linear dimension non-marginal (submitted lateral to medial) A26: Upper outer quadrant non-marginal A27: Lower outer quadrant non-marginal A28: Lower inner quadrant and marginal A29: Upper inner quadrant non-marginal A30: Central region non-marginal A31-A32: Entire bisected nipple The specimen was removed from the patient on January 09, 2023 at 1:38 PM and placed in formalin at 2:22 PM. LEENA January 10, 2023 11:23 AM Gross examination performed at [facility], [address] [place] [address] B. BREAST MARGIN RIGHT Received in formalin designated superior radial margin is an oriented london-yellow rubbery and lobulated fragment of fibrofatty tissue that weighs 3 g and measures 4 x 2.4 x 0.5 cm. There is purple ink that designates the new margin. The new margin is inked black and the previous margin is inked blue. The specimen is serially sectioned to reveal london-yellow rubbery and lobulated cut surfaces. The specimen is entirely submitted in 4 cassettes. WE January 09, 2023 2:50 PM Gross examination performed at [facility], [address] [place] [address] C. SENTINEL LYMPH NODE RIGHT Received in formalin designated right sentinel lymph node #2 are 2 pink-london lymph nodes that measure 2 and 3.1 cm in greatest dimension. The lymph nodes are entirely submitted as follows: C1-C2. Single serially sectioned lymph node C3-C5. Single serially sectioned lymph node WE January 09, 2023 2:47 PM Gross examination performed at [facility], [address] [id number] D. BREAST MARGIN RIGHT Received fresh designated right lateral skin margin is a portion of skin and fibrofatty tissue that weighs 73 g and measures 12 x 10 x 1.2 cm. The skin surface is pink-london and wrinkled. The fibrofatty tissue is london-yellow rubbery and lobulated. The outer surface is inked black. The specimen is serially sectioned to reveal fibrous cut surfaces. Waterworks Supervisor sections are submitted in 4 cassettes. WE January 09, 2023 2:44 PM Gross examination performed at [facility], [id number] [place] [address] Performed By: #### S ####[facility] LABCLIA [id number] [facility] [id number] [place] [address] [place] SYNOPTIC REPORT Normal [facility] Comment on above: Order Comment: Speci men Type: TISSUE SPECIMENOrdering Facility: [facility] Address: [address] [id number] Result Comment: INVA SIVE CARCINOMA OF THE BREAST: Resection INVASIVE CARCINOMA OF THE BREAST: EXCISION - All Specimens 8th Edition - Protocol posted: 08/02/2022 SPECIMEN Procedure: Total mastectomy Specimen Laterality: Right TUMOR Tumor Site: Upper outer quadrant Tumor Site: Upper inner quadrant Histologic Type: Invasive carcinoma of no special type (ductal) Histologic Grade ([place] Histologic Score): Glandular (Acinar) / Tubular Differentiation: Score 3 Nuclear Pleomorphism: Score 2 Mitotic Rate: Score 2 Overall Grade: Grade 3 (scores of 8 or 9) Tumor Size: Greatest dimension of largest invasive focus (Millimeters): 70 mm Ductal Carcinoma In Situ (DCIS): Present Architectural Patterns: Cribriform Architectural Patterns: Solid Nuclear Grade: Grade III (high) Lymphatic and / or Vascular Invasion: Not identified Treatment Effect in the Breast: No known presurgical therapy MARGINS Margin Status for Invasive Carcinoma: All margins negative for invasive carcinoma Distance from Invasive Carcinoma to Closest Margin: Greater than: 7 mm Closest Margin(s) to Invasive Carcinoma: Superior radial Margin Status for DCIS: All margins negative for DCIS Distance from DCIS to Closest Margin: Greater than: 5 mm REGIONAL LYMPH NODES Regional Lymph Node Status: : All regional lymph nodes negative for tumor Total Number of Lymph Nodes Examined (sentinel and non-sentinel): 2 Number of [place] Nodes Examined: 2 pTNM CLASSIFICATION (AJCC 8th Edition) Reporting of pT, pN, and (when applicable) pM categories is based on information available to the pathologist at the time the report is issued. As per the AJCC (Chapter 1, 8th Ed.) it is the managing physician???s responsibility to establish the final pathologic stage based upon all pertinent information, including but potentially not limited to this pathology report. pT Category: pT3 pN Category: pN0 N Suffix: (sn) SPECIAL STUDIES Estrogen Receptor (ER) Status: Positive (greater than 10% of cells demonstrate nuclear positivity) Percentage of Cells with Nuclear Positivity: 90 % Progesterone Receptor (PgR) Status: Positive Percentage of Cells with Nuclear Positivity: 40 % HER2 (by immunohistochemistry): Equivocal (Score 2+) Percentage of Cells with Uniform Intense Complete Membrane Staining: Cannot be determined HER2 (by in situ hybridization): Negative (not amplified) Testing Performed on Comment(s): Waterworks Supervisor tumor block: A18 Performed By: #### S ####[facility] LABCLIA [id number] [place] [address] [place] CBC W Auto Differential pane l (Bld)on 01-05-2023 Basophils (Bld) [#/Vol] 0.09 10*3/uL <0.11 k/uL [facility] Basophils/100 WBC (Bld) 1.1 % [facility] Differential cell count method Nom (Bld) Auto [facility] Eosinophils (Bld) [#/Vol] 0.37 10*3/uL <0.46 k/uL [facility] Eosinophils/100 WBC (Bld) 4.3 % [facility] Erythrocyte distribution width (RBC) [Ratio] 13.1 % 11.5 - 15.0 % [facility] Hematocrit (Bld) [Volume fraction] 35.8 % Low 36.0 - 46.0 % [facility] Hemoglobin (Bld) [Mass/Vol] 11.9 g/dL 11.5 - 15.5 g/dL [facility] Immature granulocytes (Bld) [#/Vol] 0.03 10*3/uL <0.10 k/uL [facility] Immature granulocytes/100 WBC (Bld) 0.4 % [facility] Lymphocytes (Bld) [#/Vol] 2.33 10*3/uL 1.00 - 4.00 k/uL [facility] Lymphocytes/100 WBC (Bld) 27.2 % [facility] MCH (RBC) [Entitic mass] 30.1 pg 26.0 - 34.0 pg [facility] MCHC (RBC) [Mass/Vol] 33.2 g/dL 30.5 - 36.0 g/dL [facility] MCV (RBC) [Entitic vol] 90.6 fL 80.0 - 100.0 fL [facility] Monocytes (Bld) [#/Vol] 0.59 10*3/uL <0.87 k/uL [facility] Monocytes/100 WBC (Bld) 6.9 % [facility] Neutrophils (Bld) [#/Vol] 5.15 10*3/uL 1.45 - 7.50 k/uL [facility] Neutrophils/100 WBC (Bld) 60.1 % [facility] Nucleated RBC (Bld) [#/Vol] <0.01 k/uL [facility] Nucleated RBC/100 WBC (Bld) [Ratio] 0.0 /100 WBC [facility] Platelet mean volume (Bld) [Entitic vol] 10.0 fL 9.0 - 12.7 fL [facility] Platelets (Bld) [#/Vol] 252 10*3/uL 150 - 400 k/uL [facility] RBC (Bld) [#/Vol] 3.95 10*6/uL 3.90 - 5.20 m/uL [facility] WBC (Bld) [#/Vol] 8.56 10*3/uL 3.70 - 11.00 k/uL [facility] CNPNon 01-05-2023 CNPN Telephone (GENSF) SULEIMAN RAMSEY ([id number]) 1945 F Date Time Provider Department 01/05/23 TAQUERIA GRACIA During your visit today, we recorded the following information about you: Taqueria Gracia RN 01/05/2023 10:40 AM Signed Left voicemail on Gama's (Suleiman's daughter) phone with my name and number to call if she has any questions or concerns about mother's surgery Sunday. Allergies As of Date: 01/05/2023 (No Known Allergies) Date Reviewed: 12/22/2022 Reviewed by: Criss Sutton MA - Fully Assessed Prescriptions as of 01/05/2023 - rosuvastatin (CRESTOR) 20 mg tablet Take 1 tablet by mouth every afternoon. - levothyroxine (SYNTHROID) 150 mcg tablet Take 1 tablet by mouth once daily. - olmesartan (BENICAR) 40 mg tablet - Pregabalin (LYRICA) 200 mg capsule - metFORMIN ER (GLUCOPHAGE XR) 500 mg [...] - VITAMIN B COMPLEX ORAL Take by mouth. - metroNIDAZOLE (METROGEL) 1 % gel .Apply [...] eyes and eyelids. NB: Needs 3-month supply. Problem List As Of Date 01/05/2023 Noted Resolved Rosacea [L71.9] 08/31/2005 06/09/2012 Seborrheic [...] Malignant neoplasm of upper-inner quadrant of r*12/22/2022 Encounter Status:Closed by TAQUERIA GRACIA on 01/05/23 [facility] Comprehensive metabolic 2000 panelon 01-05-2023 Albumin [Mass/Vol] 4.2 g/dL 3.9 - 4.9 g/dL [facility] ALP [Catalytic activity/Vol] 80 U/L 34 - 123 U/L [facility] ALT [Catalytic activity/Vol] 19 U/L 7 - 38 U/L [facility] Anion gap [Moles/Vol] 14 mmol/L 9 - 18 mmol/L [facility] AST [Catalytic activity/Vol] 50 U/L High 13 - 35 U/L [facility] Bilirubin [Mass/Vol] 0.6 mg/dL 0.2 - 1 .3 mg/dL [facility] Calcium [Mass/Vol] 10.1 mg/dL 8.5 - 10. 2 mg/dL [facility] Chloride [Moles/Vol] 101 mmol/L 97 - 10 5 mmol/L [facility] CO2 [Moles/Vol] 25 mmol/L 22 - 30 mmol/L [facility] Creatinine [Mass/Vol] 0.99 mg/dL High 0.58 - 0.96 mg/dL [facility] Estimated Glomerular Filtration Rate 59 mL/min/1.73m Low >=60 mL/min/1.7 3m [facility] Glucose [Mass/Vol] 295 mg/dL High 74 - 99 mg/dL [facility] Potassium [Moles/Vol] 4.0 mmol/L 3.7 - 5.1 mmol/L [facility] Protein [Mass/Vol] 7.3 g/dL 6.3 - 8.0 g/dL [facility] Sodium [Moles/Vol] 140 mmol/L 136 - 144 mmol/L [facility] Urea nitrogen [Mass/Vol] 14 mg/dL 7 - 21 mg/dL [facility] ECG COMPLETEon 01-05-2023 Atrial Rate 70 BPM [facility] Calculated P [place] 38 degrees [facility] Calculated R [place] -31 degrees [facility] Calculated T [place] 94 degrees [facility] P-R Interval 244 ms [facility] QRS Duration 126 ms [facility] QT Interval 422 ms [facility] QTC Calculation (Bazett) 455 ms [facility] Ventricular Rate 70 BPM [facility] HbA1c (Bld)on 01-05-2023 Average glucose Estimated from glycated hemoglobin (Bld) [Mass/Vol] 177 mg/dL [facility] HbA1c (Bld) [Mass fraction] 7.8 % High 4.3 - 5.6 % [facility] CNPNon 12-26-2022 CNPN Telephone (GENSF) SULEIMAN RAMSEY ([id number]) 1945 F Date Time Provider Department 12/26/22 MICKI PARKINSONSGrace During your visit today, we recorded the following information about you: Brandy Valenzuela 12/26/2022 12:55 PM Addendum Spoke to patient's daughter Gama , informed patient surgery date and appointments related to her procedure with Dr. Parkinson on 01/09 . Family Lawyer note with recommendations needed before her mother's surgery. Brandy Valenzuela 12/26/2022 12:53 PM Signed Spoke to patient. Informed surgery information and appointments . And notes from her day habilitation specialist. Allergies As of Date: 12/26/2022 (No Known Allergies) Date Reviewed: 12/22/2022 Reviewed by: Criss Sutton MA - Fully Assessed Reason for Visit: Appointment [[id number]] Prescriptions as of 12/26/2022 - rosuvastatin (CRESTOR) 20 mg tablet Take 1 tablet by mouth every afternoon. - levothyroxine (SYNTHROID) 150 mcg tablet Take 1 tablet by mouth once daily. - olmesartan (BENICAR) 40 mg tablet - Pregabalin (LYRICA) 200 mg capsule - metFORMIN ER (GLUCOPHAGE XR) 500 mg [...] - VITAMIN B COMPLEX ORAL Take by mouth. - metroNIDAZOLE (METROGEL) 1 % gel .Apply to entire affected area(s) of rosacea on face QDay as directed and can increase up to bid prn flaring or as needed and tolerated. - INSULIN DETEMIR (LEVEMIR SUBCUTANEOUS) Inject subcutaneously once daily. - LIRAGLUTIDE (VICTOZA 3-BEN SUBCUTANEOUS) Inject subcutaneously once daily. - tretinoin (RETIN-A) 0.025 % topical cream [...] eyes and eyelids. NB: Needs 3-month supply. - venlafaxine XR (EFFEXOR XR) 75 mg ORAL 24 hr capsule Take 1 capsule by mouth once daily. - olmesartan (BENICAR) 20 mg ORAL tablet Take 20 mg by mouth once daily. Take one(1) tablet daily. - simvastatin 20 mg ORAL tablet Take 20 mg by mouth daily at bedtime. Take one(1) tablet daily. - levothyroxine sodium(SYNTHROID 150 MCG TAB) Take one(1) tablet daily. Problem List As Of Date 12/26/2022 Noted Resolved Rosacea [L71.9] 08/31/2005 06/09/2012 Seborrheic [...] Malignant neoplasm of upper-inner quadrant of r*12/22/2022 Encounter Status:Closed by BRANDY VALENZUELA on 12/26/22 [facility] CNOVon 12-22-2022 CNOV Office Visit ([facility] ) SULEIMAN RAMSEY ([id number]) 1945 F Date Time Provider Department 12/22/22 2:00 PM SAMUEL DINH [facility] During your visit today, we recorded the following information about you: Temperature Pulse Blood pressure Weight 98.1 degrees 81/minute 167/65 78 kg Samuel Dinh MD 12/29/2022 2:01 PM Signed BREAST RECONSTRUCTION EVALUATION CC: Suleiman Ramsey is a 77 year old that presents today for breast reconstruction evaluation. HPI: Suleiman Ramsey is a 77 year old female with a history of RIGHT breast cancer. Diagnosis was made at [facility] by means of ultrasound-guided core biopsy of Right breast on 11/15/2022. The pathology report showed Infiltrating Ductal Carcinoma Grade 2, ER positive, CA positive, HER2 non-amplified (FISH). She has a [...] eyelids. NB: Needs 3-month supply. venlafaxine XR (more content not included)... Normal [facility] CNOV Office Visit (GENSF) SULEIMAN RAMSEY ([id number]) 1945 F Date Time Provider Department 12/22/22 10:30 AM MICKI PARKINSON During your visit today, we recorded the following information about you: Weight Height 78 kg 1.549 m Micki Parkinson DO 12/25/2022 8:25 AM Signed NEW BREAST CANCER - INITIAL SURGICAL VISIT SERVICE DATE: 12/19/2022 REFERRING PROVIDER: Dr. Rio Rcihards SUBJECTIVE: REASON FOR TODAY'S VISIT: Breast Cancer Evaluation HISTORY of PRESENT ILLNESS: Suleiman Ramsey is a 77 year old White female who presents to the [facility] at the request of RIGHT for an opinion regarding a new diagnosis of RIGHT breast cancer. Patient states the palpable breast mass was first noted in 6 months ago on a self breast exam. She saw her day habilitation specialist who also palpated the mass. She was [...] cm in size. Diagnosis was made at [facility] by means of ultrasound-guided core biopsy of Right breast on 11/15/2022. The pathology report showed Infiltrating Ductal Carcinoma Grade 2, ER positive, CA positive, HER2 non-amplified (FISH). Metastatic workup with [...] of Vulva and Perineum - 02/06/2007 CURRENT MEDICATIO (more content not included)... Normal [facility] DBT Breast - right diagnosti c for implanton 12-22-2022 * * *Final Report* * * DATE OF EXAM: Dec 22 2022 9:09AM SSW 0629 - [facility] DIAG W JOVAN RT / PROCEDURE REASON: multiple diagnoses * * * * Physician Interpretation * * * * RESULT: #[id number] - [facility] DIAG W JOVAN RT #[id number] - [facility] US BREAST LTD RT UNILATERAL RIGHT DIGITAL DIAGNOSTIC MAMMOGRAM TOMOSYNTHESIS WITH CAD: 12/22/2022 HISTORY: Multiple Diagnoses Multiple Diagnoses. RESULT: TECHNIQUE: The study was acquired using full field digital technology and interpreted from soft copy. Digital Breast Tomosynthesis (DBT) images were obtained and used to assist in the interpretation of this examination. Current study was also evaluated with a Computer Aided Detection (CAD). Comparison is made to exams dated: 11/10/2022 mammogram, 11/10/2022 ultrasound, and 11/29/2022 ultrasound. The tissue of right breast is heterogeneously dense. This may lower the sensitivity of mammography. The patient return for a right diagnostic mammogram is recommended from the second opinion performed at this institution of a mammogram and ultrasound dated 11/10/2022. No other comparison films are available. There are multiple coalescent irregular masses in [...] other findings are seen in the breast. DIVISION OF RADIOLOGY Provider, Neha Diana [facility] - 12/22/2022 * * *Final Report* * * DATE OF EXAM: Dec 22 2022 9:09AM SSW 0629 - EVAN DIAG W JOVAN RT / PROCEDURE REASON: multiple diagnoses * * * * Physician Interpretation * * * * RESULT: #[id number] - [facility] DIAG W JOVAN RT #[id number] - [facility] US BREAST LTD RT UNILATERAL RIGHT DIGITAL DIAGNOSTIC MAMMOGRAM TOMOSYNTHESIS WITH CAD: 12/22/2022 HISTORY: Multiple Diagnoses Multiple Diagnoses. RESULT: TECHNIQUE: The study was acquired using full field digital technology and interpreted from soft copy. Digital Breast Tomosynthesis (DBT) images were obtained and used to assist in the interpretation of this examination. Current study was also evaluated with a Computer Aided Detection (CAD). Comparison is made to exams dated: 11/10/2022 mammogram, 11/10/2022 ultrasound, and 11/29/2022 ultrasound. The tissue of right breast is heterogeneously dense. This may lower the sensitivity of mammography. The patient return for a right diagnostic mammogram is recommended from the second opinion performed at this institution of a mammogram and ultrasound dated 11/10/2022. No other comparison films are available. There are multiple coalescent irregular masses in [...] other findings are seen in the breast. IMPRESSION IMPRESSION: BENIGN FINDING There is no mammographic evidence of malignancy. LIMITED ULTRASOUND OF RIGHT BREAST AND AXILLA: 12/22/2022 RESULT: Comparison is made to exams dated: 11/10/2022 mammogram, 11/10/2022 ultrasound, and 11/29/2022 ultrasound. Color flow and real-time ultrasound of the right breast 1-4 o'clock, and axilla regions were performed. Lynch scale images of the real-time examination were reviewed. There is a 2.9 cm x 2.5 [...] for malignancy. A surgical consult is recommended. SUMMARY: I discussed the findings of the examination with the patient. At the time of the examination the patient was considering a mastectomy. I explained to her if she decides on conservation surgery that additional biopsy would be recommended. If conservation is considered following discussion/surgical consultation that I would recommend a biopsy of the 11:00 6 cm from the nipple to confirm benignity and 2:00 10 o'clock position for extent of disease. In addition I would recommend an MRI of the breast to evaluate extent of disease and evaluate the left breast if the patient is clinically able. The patient is scheduled for a surgical consultation with Dr. Parkinson. Kalyan samayoa/hamzah:12/22/2022 11:22:46 Multiple national specialty organizations have released breast cancer screening guidelines for women at average risk for developing breast cancer - guidelines that are based on both evidence and opinion, yet differ on when to start and how often to (more content not included)... [facility] Radiology Study observation (narrative) [facility] No Panel Informationon 12-22 IMPRESSION: BENIGN F INDING There is no mammographic evidence of malignancy. LIMITED ULTRASOUND OF RIGHT BREAST AND AXILLA: 12/22/2022 RESULT: Comparison is made to exams dated: 11/10/2022 mammogram, 11/10/2022 ultrasound, and 11/29/2022 ultrasound. Color flow and real-time ultrasound of the right breast 1-4 o'clock, and axilla regions were performed. Lynch scale images of the real-time examination were reviewed. There is a 2.9 cm x 2.5 [...] for malignancy. A surgical consult is recommended. SUMMARY: I discussed the findings of the examination with the patient. At the time of the examination the patient was considering a mastectomy. I explained to her if she decides on conservation surgery that additional biopsy would be recommended. If conservation is considered following discussion/surgical consultation that I would recommend a biopsy of the 11:00 6 cm from the nipple to confirm benignity and 2:00 10 o'clock position for extent of disease. In addition I would recommend an MRI of the breast to evaluate extent of disease and evaluate the left breast if the patient is clinically able. The patient is scheduled for a surgical consultation with Dr. Parkinson. Kalyan Keating M.D. yao/hamzah:12/22/2022 11:22:46 Multiple national specialty organizations have released breast cancer screening guidelines for women at average risk for developing breast cancer - guidelines that are based on both evidence and opinion, yet differ on when to start and how often to screen for breast cancer. With representation from Breast Imaging, Internal Medicine, Women's Health, Family Medicine, and Medical/Surgical Oncology, the [facility] has carefully reviewed the data and reached the following consensus: 1) All women should engage in shared decision-making with their providers to decide when to start and how often to screen; 2) All women should have the opportunity to start screening mammography at age 40; 3) For women ages 45-55, we recommend annual screening mammograms; 4) For women ages 55 and over, we support both the transition from an annual to a biennial interval if this aligns more with patient's values and preferences, or continuation with annual screening; 5) All women should discuss with their providers when to stop screening mammograms. Benzene Operator(s): Arianna Whitley RT(R)(M), [facility]; Ashley Seo RT(R)(M), [facility] OVERALL STUDY BIRADS: 5 Highly suggestive of malignancy - Appropriate action should be taken Marketing Operations Specialist: Hamzah Transcribe Date/Time: Dec 22 2022 8:37A Dictated by: KALYAN KEATING MD This examination was interpreted and the report reviewed and electronically signed by: KALYAN KEATING MD on Dec 22 2022 11:22AM [facility] DIVISION OF RADIOLOGY No Panel InformationOrdered By: Cc Provider on 12-22-2022 [facility] US Breast - right limitedon 12-22-2022 * * *Final Report* * * DATE OF EXAM: Dec 22 2022 10:10AM SSW 0594 - [facility] US BREAST LTD RT / PROCEDURE REASON: multiple diagnoses * * * * Physician Interpretation * * * * RESULT: #[id number] - [facility] DIAG W JOVAN RT #[id number] - [facility] US BREAST LTD RT UNILATERAL RIGHT DIGITAL DIAGNOSTIC MAMMOGRAM TOMOSYNTHESIS WITH CAD: 12/22/2022 HISTORY: Multiple Diagnoses Multiple Diagnoses. RESULT: TECHNIQUE: The study was acquired using full field digital technology and interpreted from soft copy. Digital Breast Tomosynthesis (DBT) images were obtained and used to assist in the interpretation of this examination. Current study was also evaluated with a Computer Aided Detection (CAD). Comparison is made to exams dated: 11/10/2022 mammogram, 11/10/2022 ultrasound, and 11/29/2022 ultrasound. The tissue of right breast is heterogeneously dense. This may lower the sensitivity of mammography. The patient return for a right diagnostic mammogram is recommended from the second opinion performed at this institution of a mammogram and ultrasound dated 11/10/2022. No other comparison films are available. There are multiple coalescent irregular masses in [...] other findings are seen in the breast. DIVISION OF RADIOLOGY Provider, [facility] - 12/22/2022 * * *Final Report* * * DATE OF EXAM: Dec 22 2022 10:10AM [facility] 0594 - [facility] Graftys BREAST Stimatix GI RT / PROCEDURE REASON: multiple diagnoses * * * * Physician Interpretation * * * * RESULT: #[id number] - [facility] MURIEL RECIOO RT #[id number] - [facility] [employer] BREAST Stimatix GI RT UNILATERAL RIGHT DIGITAL DIAGNOSTIC MAMMOGRAM TOMOSYNTHESIS WITH CAD: 12/22/2022 HISTORY: Multiple Diagnoses Multiple Diagnoses. RESULT: TECHNIQUE: The study was acquired using full field digital technology and interpreted from soft copy. Digital Breast Tomosynthesis (DBT) images were obtained and used to assist in the interpretation of this examination. Current study was also evaluated with a Computer Aided Detection (CAD). Comparison is made to exams dated: 11/10/2022 mammogram, 11/10/2022 ultrasound, and 11/29/2022 ultrasound. The tissue of right breast is heterogeneously dense. This may lower the sensitivity of mammography. The patient return for a right diagnostic mammogram is recommended from the second opinion performed at this institution of a mammogram and ultrasound dated 11/10/2022. No other comparison films are available. There are multiple coalescent irregular masses in [...] other findings are seen in the breast. IMPRESSION IMPRESSION: BENIGN FINDING There is no mammographic evidence of malignancy. LIMITED ULTRASOUND OF RIGHT BREAST AND AXILLA: 12/22/2022 RESULT: Comparison is made to exams dated: 11/10/2022 mammogram, 11/10/2022 ultrasound, and 11/29/2022 ultrasound. Color flow and real-time ultrasound of the right breast 1-4 o'clock, and axilla regions were performed. Lynch scale images of the real-time examination were reviewed. There is a 2.9 cm x 2.5 [...] for malignancy. A surgical consult is recommended. SUMMARY: I discussed the findings of the examination with the patient. At the time of the examination the patient was considering a mastectomy. I explained to her if she decides on conservation surgery that additional biopsy would be recommended. If conservation is considered following discussion/surgical consultation that I would recommend a biopsy of the 11:00 6 cm from the nipple to confirm benignity and 2:00 10 o'clock position for extent of disease. In addition I would recommend an MRI of the breast to evaluate extent of disease and evaluate the left breast if the patient is clinically able. The patient is scheduled for a surgical consultation with Dr. Parkinson. Kalyan Keating M.D. /hamzah:12/22/2022 11:22:46 Multiple national specialty organizations have released breast cancer screening guidelines for women at average risk for developing breast cancer - guidelines that are based on both evidence and opinion, yet differ on when to start and how often (more content not included)... [facility] Radiology Study observation (narrative) [facility] No Panel InformationOrdered By: Cong Morrison on 12-05-2022 Free Lambda Light Chains, Quant 21.5 mg/L 5.7-26.3 [facility] Serum immunoglobulin kappa l ight chains/immunoglobulin lambda light chains mass ratioOrdered By: Cong Morrison on 12-05-2022 Immunoglobulin light chains.kappa/Immunogl obulin light chains.lambda (S) [Mass ratio] 2.40 0.26-1.65 [facility] Comment on above: Performed at: [facility] [place], [place] [id number] Director: Tramaine Palaicos PhD, Phone: [phone] Serum or plasma folate measu rement (mass/volume)Ordered By: Cong Morrison on 12-05-2022 Folate [Mass/Vol] 30.60 ng/mL 3.1-55.4 [facility] Serum or plasma immunoglobul in kappa light chains measurement (mass/volume)Ordered By: Cong Morrison on 12-05-2022 Immunoglobulin light chains.kappa [Mass/Vol] 51.6 mg/L 3.3-19.4 [facility] Absolute lymphocyte countOrd ered By: Alejandro Morales on 2022 Lymphocytes Auto (Unsp spec) [#/Vol] 3.53 10*3/uL 0.83-4.51 [facility] Basophil percentageOrdered B y: Alejandro Morales on 2022 Basophils/100 WBC (Bld) 0.8 % 0-1 [facility] Bilirubin [Mass/Vol] 0.50 mg/dL 0.20-1.00 [facility] Comment on above: For patients on eltr ombopag therapy, use of Dimension [place] TBIL is not recommended. Chloride [Moles/Vol] 105 mmol/L 98-107 [facility] Eosinophils/100 WBC (Bld) 4.6 % 0-5 [facility] Glucose [Mass/Vol] 285 mg/dL 74-106 [facility] Comment on above: Glucose result great er than or equal to 200 mg/dLsuggests DIABETES MELLITUS per A.D.A. criteria. Neutrophils (Bld) [#/Vol] 7.1 10*3/uL 2.0-7.7 [facility] Neutrophils/100 WBC (Bld) 58.6 % 47-70 [facility] Potassium [Moles/Vol] 4.3 mmol/L 3.5-5.1 [facility] Protein [Mass/Vol] 8.0 g/dL 6.4-8.2 [facility] Sodium [Moles/Vol] 135 mmol/L 136-145 [facility] WBC (Bld) [#/Vol] 12.1 10*3/uL 4.4-11.0 [facility] Blood erythrocytes count (nu mber/volume)Ordered By: Alejandro Morales on 2022 RBC (Bld) [#/Vol] 4.08 10*6/uL 4.2-5.4 [facility] Blood hemoglobin measurement (mass/volume)Ordered By: Alejandro Morales on 2022 Hemoglobin (Bld) [Mass/Vol] 12.1 g/dL 12.0-15.0 [facility] Blood lymphocytes/100 leukoc ytesOrdered By: [facility] Morales on 2022 Lymphocytes/100 WBC (Bld) 29.2 % 19-41 [facility] Blood monocytes/100 leukocyt esOrdered By: [facility] Morales on 2022 Monocytes/100 WBC (Bld) 6.6 % 0-10 [facility] Blood platelet mean volumeOr dered By: Alejandro Morales on 2022 Platelet mean volume (Bld) [Entitic vol] 10.8 fL 6.2-12.0 [facility] Determination of erythrocyte mean corpuscular volume (MCV)Ordered By: Alejandro Morales on 2022 MCV (RBC) [Entitic vol] 92.4 fL 81-99 [facility] Hematocrit Auto (Bld) [Volum e fraction]Ordered By: [facility] Mor[facility] on 2022 Hematocrit (Bld) [Volume fraction] 37.7 % 37-47 [facility] Laboratory - Chemistry and C hemistry - challengeOrdered By: Alejandro Morales on 2022 ALP [Catalytic activity/Vol] 103 U/L 45-117 [facility] ALT [Catalytic activity/Vol] 26 U/L 13-56 [facility] CO2 [Moles/Vol] 23.0 mmol/L 21.0-32.0 [facility] Globulin (S) [Mass/Vol] 4.5 g/dL 2.2-4.2 [facility] Urea nitrogen/Creatinine [Mass ratio] 15.2 mg/mg 10-20 [facility] Laboratory - Hematology and Cell countsOrdered By: Alejandro Morales on 2022 Erythrocyte distribution width (RBC) [Entitic vol] 45.7 fL 35.1-43.9 [facility] Erythrocyte distribution width (RBC) [Ratio] 13.6 % 11.6-14.6 [facility] Immature granulocytes/100 WBC (Bld) 0.200 % 0.0-0.9 [facility] Comment on above: IG% - Immature Granu locytes (promyelocytes, myelocytes and metamyelocytes) > 1% indicates that a LEFT SHIFT is Present. MCH (RBC) [Entitic mass] 29.7 pg 27.0-32.0 [facility] Nucleated RBC/100 WBC (Bld) [Ratio] 0 % 0-5 [facility] MCHC Auto (RBC) [Mass/Vol]Or dered By: Alejandro Morales on 2022 MCHC (RBC) [Mass/Vol] 32.1 g/dL 32-36 [facility] No Panel InformationOrdered By: Alejandro Morales on 2022 Estimated GFR (MDRD) Amer 70 mL/min >60 [facility] Comment on above: GFR Calc Estimated GFR (MDRD) Non-Af Amer 58 mL/min >60 [facility] Comment on above: Non- GFR Calc Platelets bldOrdered By: Subhash Morales on 2022 Platelets (Bld) [#/Vol] 261 10*3/uL 150-450 [facility] Serum or plasma albumin wale urement (mass/volume)Ordered By: Alejandro Morales on 2022 Albumin [Mass/Vol] 3.5 g/dL 3.2-5.0 [facility] Serum or plasma albumin/glob ulin mass ratioOrdered By: Alejandro Morales on 2022 Albumin/Globulin [Mass ratio] 0.8 {ratio} 0.9-2.4 [facility] Serum or plasma calcium wale urement (mass/volume)Ordered By: Alejandro Morales on 2022 Calcium [Mass/Vol] 10.8 mg/dL 8.5-10.1 [facility] Serum or plasma creatinine m easurement (mass/volume)Ordered By: Alejandro Morales on 2022 Creatinine [Mass/Vol] 0.98 mg/dL 0.55-1.02 [facility] Comment on above: The validity of the calculated GFR & GFRAA in patients over 70 years has not been determined. Clinical correlation is essential. Serum or plasma urea nitroge n measurement (mass/volume)Ordered By: Alejandro Morales on 2022 Urea nitrogen [Mass/Vol] 15 mg/dL 7-18 [facility] Thin prep Papanicolaou smear with manual screeningOrdered By: [facility] Morales on 2022 Thin prep Papanicolaou smear with manual screening 43 U/L 15-37 [facility] Thin prep Papanicolaou smear with manual screening 7 5-15 [facility] Absolute lymphocyte countOrd ered By: Dr. Bosch on 10-30-2022 Lymphocytes Auto (Unsp spec) [#/Vol] 2.64 10*3/uL 0.83-4.51 [facility] Basophil percentageOrdered B y: Dr. Bosch on 10-30-2022 Basophil percentage 2.7 mg/dL 2.5-4.9 [facility] Basophils/100 WBC (Bld) 1.0 % 0-1 [facility] Bilirubin [Mass/Vol] 0.40 mg/dL 0.20-1.00 [facility] Comment on above: For patients on eltr ombopag therapy, use of Dimension [place] TBIL is not recommended. Chloride [Moles/Vol] 107 mmol/L 98-107 [facility] Cholesterol [Mass/Vol] 111 mg/dL <200 [facility] Comment on above: <200 mg/dL Desirable 200-240 mg/dL Borderline >240 mg/dL High Risk Eosinophils/100 WBC (Bld) 3.7 % 0-5 [facility] Glucose [Mass/Vol] 176 mg/dL 74-106 [facility] Comment on above: Fasting Glucose resu lt greater than or equal to 126 mg/dL suggests DIABETES MELLITUS per A.D.A. criteria. Neutrophils (Bld) [#/Vol] 6.0 10*3/uL 2.0-7.7 [facility] Neutrophils/100 WBC (Bld) 60.6 % 47-70 [facility] Potassium [Moles/Vol] 4.0 mmol/L 3.5-5.1 [facility] Protein [Mass/Vol] 7.6 g/dL 6.4-8.2 [facility] Sodium [Moles/Vol] 138 mmol/L 136-145 [facility] Triglyceride [Mass/Vol] 150 mg/dL <199 [facility] Comment on above: The drugs N-Acetylcy steine and Metamizole may falsely depress this assay.Serum Triglycerides Reference Interval Normal <150 mg/dL Borderline high 150 - 199 mg/dL High 200 - 499 mg/dL Very High > or = 500 mg/dL WBC (Bld) [#/Vol] 9.9 10*3/uL 4.4-11.0 [facility] Blood erythrocytes count (nu mber/volume)Ordered By: Dr. Bosch on 10-30-2022 RBC (Bld) [#/Vol] 3.98 10*6/uL 4.2-5.4 [facility] Blood hemoglobin measurement (mass/volume)Ordered By: Dr. Bosch on 10-30-2022 Hemoglobin (Bld) [Mass/Vol] 11.8 g/dL 12.0-15.0 [facility] Blood lymphocytes/100 leukoc ytesOrdered By: Dr. Bosch on 10-30-2022 Lymphocytes/100 WBC (Bld) 26.8 % 19-41 [facility] Blood monocytes/100 leukocyt esOrdered By: Dr. Bosch on 10-30-2022 Monocytes/100 WBC (Bld) 7.6 % 0-10 [facility] Blood platelet mean volumeOr dered By: Dr. Bosch on 10-30-2022 Platelet mean volume (Bld) [Entitic vol] 11.0 fL 6.2-12.0 [facility] Determination of erythrocyte mean corpuscular volume (MCV)Ordered By: Dr. Bosch on 10-30-2022 MCV (RBC) [Entitic vol] 91.7 fL 81-99 [facility] Hematocrit Auto (Bld) [Volum e fraction]Ordered By: Dr. Bosch on 10-30-2022 Hematocrit (Bld) [Volume fraction] 36.5 % 37-47 [facility] Laboratory - Chemistry and C hemistry - challengeOrdered By: Dr. Bosch on 10-30-2022 ALP [Catalytic activity/Vol] 96 U/L 45-117 [facility] ALT [Catalytic activity/Vol] 20 U/L 13-56 [facility] CO2 [Moles/Vol] 24.0 mmol/L 21.0-32.0 [facility] Cobalamin (Vitamin B12) [Mass/Vol] 1334 pg/mL 211-911 [facility] Free T4 [Mass/Vol] 1.55 ng/dL 0.76-1.46 [facility] Globulin (S) [Mass/Vol] 4.1 g/dL 2.2-4.2 [facility] Urea nitrogen/Creatinine [Mass ratio] 23.3 mg/mg 10-20 [facility] Laboratory - Hematology and Cell countsOrdered By: Dr. Bosch on 10-30-2022 Erythrocyte distribution width (RBC) [Entitic vol] 47.6 fL 35.1-43.9 [facility] Erythrocyte distribution width (RBC) [Ratio] 14.3 % 11.6-14.6 [facility] Immature granulocytes/100 WBC (Bld) 0.300 % 0.0-0.9 [facility] Comment on above: IG% - Immature Granu locytes (promyelocytes, myelocytes and metamyelocytes) > 1% indicates that a LEFT SHIFT is Present. MCH (RBC) [Entitic mass] 29.6 pg 27.0-32.0 [facility] Nucleated RBC/100 WBC (Bld) [Ratio] 0 % 0-5 [facility] MCHC Auto (RBC) [Mass/Vol]Or dered By: Dr. Bosch on 10-30-2022 MCHC (RBC) [Mass/Vol] 32.3 g/dL 32-36 [facility] No Panel InformationOrdered By: Dr. Villa on 10-30-2022 Ionized Calcium 5.45 mg/dL 4.36-5.20 [facility] No Panel InformationOrdered By: Dr. Bosch on 10-30-2022 Parathyroid Hormone (Intact) 52.3 pg/mL 18.4-80.1 [facility] Estimated GFR (MDRD) Amer 93 mL/min >60 [facility] Comment on above: GFR Calc Estimated GFR (MDRD) Non-Af Amer 77 mL/min >60 [facility] Comment on above: Non- GFR Calc Free Triiodothyronine (T3) pg/dL 2.5 pg/mL 2.18-3.98 [facility] Thyroid Stimulating Hormone (TSH) 0.41 uIU/mL 0.358-3.74 [facility] Urine Microalbumin/Creatini ne Ratio 83.2 mg/g CRE <30 [facility] Vitamin D 25-Hydroxy 53.4 ng/mL [facility] Comment on above: Vitamin D 25(OH) Sta tus Range Deficiency <20 ng/mL (50nmol/L) Insufficiency 20 - 30 ng/mL (50 - 75 nmol/L) Sufficiency 30 - 100 ng/mL (75 - 250 nmol/L) Toxicity >100 ng/mL (>250 nmol/L) No Panel InformationOrdered By: Benny Bosch on 10-30-2022 Vitamin B6 Level 8.6 ug/L 3.4-65.2 [facility] Comment on above: Deficiency: <3.4 [facility] ginal: 3.4 - 5.1 Adequate: >5.1 Whole Blood Vitamin B1 Level 228.8 nmol/L 66.5-200.0 [facility] Comment on above: Performed at: [address] [id number] Director: Yogesh Ramos MD, Phone: [phone] Platelets bldOrdered By: Dr. Bosch on 10-30-2022 Platelets (Bld) [#/Vol] 260 10*3/uL 150-450 [facility] Serum or plasma albumin wale urement (mass/volume)Ordered By: Dr. Bosch on 10-30-2022 Albumin [Mass/Vol] 3.5 g/dL 3.2-5.0 [facility] Serum or plasma albumin/glob ulin mass ratioOrdered By: Dr. Bosch on 10-30-2022 Albumin/Globulin [Mass ratio] 0.9 {ratio} 0.9-2.4 [facility] Serum or plasma calcium wale urement (mass/volume)Ordered By: Dr. Bosch on 10-30-2022 Calcium [Mass/Vol] 10.4 mg/dL 8.5-10.1 [facility] Serum or plasma cholesterol in HDL measurement (mass/volume)Ordered By: Dr. Bosch on 10-30-2022 Cholesterol in HDL [Mass/Vol] 38 mg/dL >40 [facility] Comment on above: The drugs N-Acetylcy steine and Metamizole may falsely depress this assay. Reference Range HDL <40 mg/dL Low HDL Cholesterol HDL >or= 60 mg/dL High HDL Cholesterol Serum or plasma cholesterol in VLDL measurement (mass/volume)Ordered By: Dr. Bosch on 10-30-2022 Cholesterol in VLDL [Mass/Vol] 30 mg/dL 5-40 [facility] Serum or plasma creatinine m easurement (mass/volume)Ordered By: Dr. Bosch on 10-30-2022 Creatinine [Mass/Vol] 0.77 mg/dL 0.55-1.02 [facility] Comment on above: The validity of the calculated GFR & GFRAA in patients over 70 years has not been determined. Clinical correlation is essential. Serum or plasma low density lipoprotein (LDL) cholesterol measurement (mass/volume)Ordered By: Dr. Bosch on 10-30-2022 Cholesterol in LDL [Mass/Vol] 43 mg/dL 0-130 [facility] Serum or plasma urea nitroge n measurement (mass/volume)Ordered By: Dr. Bosch on 10-30-2022 Urea nitrogen [Mass/Vol] 18 mg/dL 7-18 [facility] Thin prep Papanicolaou smear with manual screeningOrdered By: Dr. Bosch on 10-30-2022 Thin prep Papanicolaou smear with manual screening 35 U/L 15-37 [facility] Thin prep Papanicolaou smear with manual screening 7 5-15 [facility] Thin prep Papanicolaou smear with manual screening 59.5 mg/L NO RANGE EST. [facility] Urine creatinine measurement (mass/volume)Ordered By: Dr. Bosch on 10-30-2022 Creatinine (U) [Mass/Vol] 71.50 mg/dL NO RANGE EST. [facility] Whole blood hemoglobin A1c/t otal hemoglobin ratio (mass fraction)Ordered By: Dr. Bosch on 10-30-2022 HbA1c (Bld) [Mass fraction] 7.0 % 3.8-5.6 [facility] Comment on above: Normal < 5.7 % Predi abetic 5.7 - 6.4 % Diabetic >or= 6.5 % Please note range changes. Culture, urineOrdered By: Margaret Livingston on 09-20-2022 Bacteria identified Cx Nom (U) Mixed Gram Pos & Gram Neg Org [facility] Basophil percentageOrdered B y: Benny Livingston on 09-17-2022 Basophil percentage 0 SEEN /hpf 0-5 [facility] Bilirubin Test strip Ql (U)O rdered By: Benny Livingston on 09-17-2022 Bilirubin Ql (U) Negative Negative [facility] Culture, urineOrdered By: Margaret Livingston on 09-17-2022 Bacteria identified Cx Nom (U) Mixed Gram Pos & Gram Neg Org [facility] Ketones Test strip Ql (U)Ord ered By: Benny Livingston on 09-17-2022 Ketones Ql (U) Negative Negative [facility] Laboratory - Chemistry and C hemistry - challengeon 09-17-2022 Bilirubin Ql (U) Negative [facility] Glucose Ql (U) Negative [facility] Ketones Ql (U) Negative [facility] pH (U) 6.0 [pH] [facility] Specific gravity (U) [Rel density] 1.015 [facility] Urobilinogen (U) [Mass/Vol] Negative [facility] Laboratory - Hematology and Cell countson 09-17-2022 Hemoglobin Ql (U) Negative [facility] Laboratory - Specimen inform ationon 09-17-2022 Clarity (U) Clear [facility] Color (U) YELLOW [facility] Laboratory - Urinalysison Nitrite Ql (U) Negative [facility] Protein Ql (U) Negative [facility] Mucus LM Ql (Urine sed)Order ed By: Benny Livingston on 09-17-2022 Mucus Ql (Urine sed) 0 SEEN /hpf [facility] Nitrite Test strip Ql (U)Ord ered By: Benny Livingston on 09-17-2022 Nitrite Ql (U) Negative Negative [facility] No Panel Informationon 05-07 -2023 Urine Leukocytes Negatve [facility] Urine Non-Hemolyzed Blood Negative [facility] Protein Test strip Ql (U)Ord ered By: Benny Livingston on 09-17-2022 Protein Ql (U) 15 mg/dl Negative [facility] Squamous epithelial cells de tection in urine sediment by light microscopyOrdered By: Benny Livingston on 09-17-2022 Epithelial cells.squamous LM Ql (Urine sed) 0 SEEN /hpf 5-10 [facility] Urine blood detectionOrdered By: Benny Livingston on 09-17-2022 RBC Ql (U) Negative Negative [facility] RBC Ql (U) 0 SEEN /hpf 0-5 [facility] Urine clarityOrdered By: Shmuel Livingston on 09-17-2022 Clarity (U) Sl. Cloudy Clear [facility] Urine color determinationOrd ered By: Benny Livingston on 09-17-2022 Color (U) Yellow Yellow [facility] Urine glucose detectionOrder ed By: Benny Livingston on 09-17-2022 Glucose Ql (U) Normal mg/dl Normal [facility] Urine leukocyte esterase det ection by dipstickOrdered By: Benny Livingston on 09-17-2022 Leukocyte esterase Test strip Ql (U) Negative Negative [facility] Urine pHOrdered By: Benny lizama on 09-17-2022 pH (U) 6.0 [pH] 5.0 - 8.0 [facility] Urine sediment bacteria coun t by microscopy (number/high power field)Ordered By: Benny Livingston on 09-17-2022 Bacteria LM.HPF (Urine sed) [#/Area] 0 /[HPF] None Seen [facility] Urine specific gravity measu rementOrdered By: Benny Livingston on 09-17-2022 Specific gravity (U) [Rel density] 1.015 1.002-1.03 0 [facility] Urobilinogen Auto test strip Ql (U)Ordered By: Benny Livingston on 09-17-2022 Urobilinogen Ql (U) Normal mg/dl Normal [facility] Absolute lymphocyte countOrd ered By: Dr. Alvarez on 08-17-2022 Lymphocytes Auto (Unsp spec) [#/Vol] 3.42 10*3/uL 0.83-4.51 [facility] Basophil percentageOrdered B y: Dr. Alvarez on 08-17-2022 Basophil percentage 0 SEEN /hpf 0-5 [facility] Basophils/100 WBC (Bld) 1.1 % 0-1 [facility] Bilirubin [Mass/Vol] 0.90 mg/dL 0.20-1.00 [facility] Comment on above: For patients on eltr ombopag therapy, use of Dimension [place] TBIL is not recommended. Chloride [Moles/Vol] 104 mmol/L 98-107 [facility] Eosinophils/100 WBC (Bld) 2.4 % 0-5 [facility] Glucose [Mass/Vol] 153 mg/dL 74-106 [facility] Comment on above: Fasting Glucose resu lt greater than or equal to 126 mg/dL suggests DIABETES MELLITUS per A.D.A. criteria. Neutrophils (Bld) [#/Vol] 6.5 10*3/uL 2.0-7.7 [facility] Neutrophils/100 WBC (Bld) 58.1 % 47-70 [facility] Potassium [Moles/Vol] 3.8 mmol/L 3.5-5.1 [facility] Protein [Mass/Vol] 8.5 g/dL 6.4-8.2 [facility] Sodium [Moles/Vol] 135 mmol/L 136-145 [facility] WBC (Bld) [#/Vol] 11.2 10*3/uL 4.4-11.0 [facility] Bilirubin Test strip Ql (U)O rdered By: Dr. Alvarez on 08-17-2022 Bilirubin Ql (U) Negative Negative [facility] Blood erythrocytes count (nu mber/volume)Ordered By: Dr. Alvarez on 08-17-2022 RBC (Bld) [#/Vol] 4.56 10*6/uL 4.2-5.4 [facility] Blood hemoglobin measurement (mass/volume)Ordered By: Dr. Alvarez on 08-17-2022 Hemoglobin (Bld) [Mass/Vol] 13.1 g/dL 12.0-15.0 [facility] Blood lymphocytes/100 leukoc ytesOrdered By: Dr. Alvarez on 08-17-2022 Lymphocytes/100 WBC (Bld) 30.6 % 19-41 [facility] Blood monocytes/100 leukocyt esOrdered By: Dr. Alvarez on 08-17-2022 Monocytes/100 WBC (Bld) 7.5 % 0-10 [facility] Blood platelet mean volumeOr dered By: Dr. Alvarez on 08-17-2022 Platelet mean volume (Bld) [Entitic vol] 10.2 fL 6.2-12.0 [facility] Determination of erythrocyte mean corpuscular volume (MCV)Ordered By: Dr. Alvarez on 08-17-2022 MCV (RBC) [Entitic vol] 89.3 fL 81-99 [facility] Hematocrit Auto (Bld) [Volum e fraction]Ordered By: Dr. Alvarez on 08-17-2022 Hematocrit (Bld) [Volume fraction] 40.7 % 37-47 [facility] Ketones Test strip Ql (U)Ord ered By: Dr. Alvarez on 08-17-2022 Ketones Ql (U) Negative Negative [facility] Laboratory - Chemistry and C hemistry - challengeOrdered By: Dr. Alvarez on 08-17-2022 ALP [Catalytic activity/Vol] 81 U/L 45-117 [facility] ALT [Catalytic activity/Vol] 26 U/L 13-56 [facility] CO2 [Moles/Vol] 23.0 mmol/L 21.0-32.0 [facility] Globulin (S) [Mass/Vol] 4.6 g/dL 2.2-4.2 [facility] Lipase [Catalytic activity/Vol] 144 U/L 73-393 [facility] Urea nitrogen/Creatinine [Mass ratio] 18.9 mg/mg 10-20 [facility] Laboratory - Hematology and Cell countsOrdered By: Dr. Alvarez on 08-17-2022 Erythrocyte distribution width (RBC) [Entitic vol] 44.8 fL 35.1-43.9 [facility] Erythrocyte distribution width (RBC) [Ratio] 13.9 % 11.6-14.6 [facility] Immature granulocytes/100 WBC (Bld) 0.300 % 0.0-0.9 [facility] Comment on above: IG% - Immature Granu locytes (promyelocytes, myelocytes and metamyelocytes) > 1% indicates that a LEFT SHIFT is Present. MCH (RBC) [Entitic mass] 28.7 pg 27.0-32.0 [facility] Nucleated RBC/100 WBC (Bld) [Ratio] 0 % 0-5 [facility] MCHC Auto (RBC) [Mass/Vol]Or dered By: Dr. Alvarez on 08-17-2022 MCHC (RBC) [Mass/Vol] 32.2 g/dL 32-36 [facility] Mucus LM Ql (Urine sed)Order ed By: Dr. Alvarez on 08-17-2022 Mucus Ql (Urine sed) 0 SEEN /hpf [facility] Nitrite Test strip Ql (U)Ord ered By: Dr. Alvarez on 08-17-2022 Nitrite Ql (U) Negative Negative [facility] No Panel InformationOrdered By: Dr. Alvarez on 08-17-2022 Estimated Creatinine Clearance Calc 39.59 ml/min [facility] Estimated GFR (MDRD) Amer 107 mL/min >60 [facility] Comment on above: GFR Calc Estimated GFR (MDRD) Non-Af Amer 88 mL/min >60 [facility] Comment on above: Non- GFR Calc Platelets bldOrdered By: Dr. Alvarez on 08-17-2022 Platelets (Bld) [#/Vol] 362 10*3/uL 150-450 [facility] Protein Test strip Ql (U)Ord ered By: Dr. Alvarez on 08-17-2022 Protein Ql (U) 15 mg/dl Negative [facility] Serum or plasma albumin wale urement (mass/volume)Ordered By: Dr. Alvarez on 08-17-2022 Albumin [Mass/Vol] 3.9 g/dL 3.2-5.0 [facility] Serum or plasma albumin/glob ulin mass ratioOrdered By: Dr. Alvarez on 08-17-2022 Albumin/Globulin [Mass ratio] 0.8 {ratio} 0.9-2.4 [facility] Serum or plasma calcium wale urement (mass/volume)Ordered By: Dr. Alvarez on 08-17-2022 Calcium [Mass/Vol] 10.7 mg/dL 8.5-10.1 [facility] Serum or plasma creatinine m easurement (mass/volume)Ordered By: Dr. Alvarez on 08-17-2022 Creatinine [Mass/Vol] 0.69 mg/dL 0.55-1.02 [facility] Comment on above: The validity of the calculated GFR & GFRAA in patients over 70 years has not been determined. Clinical correlation is essential. Serum or plasma urea nitroge n measurement (mass/volume)Ordered By: Dr. Alvarez on 08-17-2022 Urea nitrogen [Mass/Vol] 13 mg/dL 7-18 [facility] Squamous epithelial cells de tection in urine sediment by light microscopyOrdered By: Dr. Alvarez on 08-17-2022 Epithelial cells.squamous LM Ql (Urine sed) 0 SEEN /hpf 5-10 [facility] Thin prep Papanicolaou smear with manual screeningOrdered By: Dr. Alvarez on 08-17-2022 Thin prep Papanicolaou smear with manual screening 67 U/L 15-37 [facility] Thin prep Papanicolaou smear with manual screening 8 5-15 [facility] Urine blood detectionOrdered By: Dr. Alvarez on 08-17-2022 RBC Ql (U) Negative Negative [facility] RBC Ql (U) 0 SEEN /hpf 0-5 [facility] Urine clarityOrdered By: Dr. Alvarez on 08-17-2022 Clarity (U) Clear Clear [facility] Urine color determinationOrd ered By: Dr. Alvarez on 08-17-2022 Color (U) Yellow Yellow [facility] Urine glucose detectionOrder ed By: Dr. Alvarez on 08-17-2022 Glucose Ql (U) Normal mg/dl Normal [facility] Urine leukocyte esterase det ection by dipstickOrdered By: Dr. Alvarez on 08-17-2022 Leukocyte esterase Test strip Ql (U) Negative Negative [facility] Urine pHOrdered By: Dr. Shaw melton on 08-17-2022 pH (U) 5.0 [pH] 5.0 - 8.0 [facility] Urine sediment bacteria coun t by microscopy (number/high power field)Ordered By: Dr. Alvarez on 08-17-2022 Bacteria LM.HPF (Urine sed) [#/Area] 0 /[HPF] None Seen [facility] Urine specific gravity measu rementOrdered By: Dr. Alvarez on 08-17-2022 Specific gravity (U) [Rel density] 1.010 1.002-1.03 0 [facility] Urobilinogen Auto test strip Ql (U)Ordered By: Dr. Alvarez on 08-17-2022 Urobilinogen Ql (U) Normal mg/dl Normal [facility] Erythrocyte sedimentation ra teOrdered By: Dr. Bosch on 07-25-2022 ESR (Bld) [Velocity] 30 mm/h 0-30 [facility] Basophil percentageOrdered B y: Dr. Villa on 06-28-2022 Basophil percentage 2.2 mg/dL 2.5-4.9 [facility] Bilirubin [Mass/Vol] 0.50 mg/dL 0.20-1.00 [facility] Comment on above: For patients on eltr ombopag therapy, use of Dimension [place] TBIL is not recommended. Chloride [Moles/Vol] 105 mmol/L 98-107 [facility] Cholesterol [Mass/Vol] 113 mg/dL <200 [facility] Comment on above: <200 mg/dL Desirable 200-240 mg/dL Borderline >240 mg/dL High Risk Glucose [Mass/Vol] 222 mg/dL 74-106 [facility] Comment on above: Glucose result great er than or equal to 200 mg/dLsuggests DIABETES MELLITUS per A.D.A. criteria. Potassium [Moles/Vol] 3.9 mmol/L 3.5-5.1 [facility] Protein [Mass/Vol] 7.2 g/dL 6.4-8.2 [facility] Sodium [Moles/Vol] 139 mmol/L 136-145 [facility] Triglyceride [Mass/Vol] 287 mg/dL <199 [facility] Comment on above: The drugs N-Acetylcy steine and Metamizole may falsely depress this assay.Serum Triglycerides Reference Interval Normal <150 mg/dL Borderline high 150 - 199 mg/dL High 200 - 499 mg/dL Very High > or = 500 mg/dL Laboratory - Chemistry and C hemistry - challengeOrdered By: Dr. Villa on 06-28-2022 ALP [Catalytic activity/Vol] 100 U/L 45-117 [facility] ALT [Catalytic activity/Vol] 18 U/L 13-56 [facility] CO2 [Moles/Vol] 25.0 mmol/L 21.0-32.0 [facility] Free T4 [Mass/Vol] 1.38 ng/dL 0.76-1.46 [facility] Globulin (S) [Mass/Vol] 3.9 g/dL 2.2-4.2 [facility] Urea nitrogen/Creatinine [Mass ratio] 26.8 mg/mg 10-20 [facility] No Panel InformationOrdered By: Dr. Villa on 06-28-2022 Estimated GFR (MDRD) Amer 92 mL/min >60 [facility] Comment on above: GFR Calc Estimated GFR (MDRD) Non-Af Amer 76 mL/min >60 [facility] Comment on above: Non- GFR Calc Ionized Calcium 5.2 mg/dL 4.5-5.6 [facility] Comment on above: Performed at: [facility] [place] [id number] Director: Tramaine Palacios PhD, Phone: [phone] Parathyroid Hormone (Intact) 59.4 pg/mL 18.4-80.1 [facility] Thyroid Stimulating Hormone (TSH) 5.43 uIU/mL 0.358-3.74 [facility] Vitamin D 25-Hydroxy 44.8 ng/mL [facility] Comment on above: Vitamin D 25(OH) Sta tus Range Deficiency <20 ng/mL (50nmol/L) Insufficiency 20 - 30 ng/mL (50 - 75 nmol/L) Sufficiency 30 - 100 ng/mL (75 - 250 nmol/L) Toxicity >100 ng/mL (>250 nmol/L) Serum or plasma albumin wale urement (mass/volume)Ordered By: Dr. Villa on 06-28-2022 Albumin [Mass/Vol] 3.3 g/dL 3.2-5.0 [facility] Serum or plasma albumin/glob ulin mass ratioOrdered By: Dr. Villa on 06-28-2022 Albumin/Globulin [Mass ratio] 0.8 {ratio} 0.9-2.4 [facility] Serum or plasma calcium wale urement (mass/volume)Ordered By: Dr. Villa on 06-28-2022 Calcium [Mass/Vol] 9.3 mg/dL 8.5-10.1 [facility] Serum or plasma cholesterol in HDL measurement (mass/volume)Ordered By: Dr. Villa on 06-28-2022 Cholesterol in HDL [Mass/Vol] 38 mg/dL >40 [facility] Comment on above: The drugs N-Acetylcy steine and Metamizole may falsely depress this assay. Reference Range HDL <40 mg/dL Low HDL Cholesterol HDL >or= 60 mg/dL High HDL Cholesterol Serum or plasma cholesterol in VLDL measurement (mass/volume)Ordered By: Dr. Villa on 06-28-2022 Cholesterol in VLDL [Mass/Vol] 57 mg/dL 5-40 [facility] Serum or plasma creatinine m easurement (mass/volume)Ordered By: Dr. Villa on 06-28-2022 Creatinine [Mass/Vol] 0.78 mg/dL 0.55-1.02 [facility] Comment on above: The validity of the calculated GFR & GFRAA in patients over 70 years has not been determined. Clinical correlation is essential. Serum or plasma low density lipoprotein (LDL) cholesterol measurement (mass/volume)Ordered By: Dr. Villa on 06-28-2022 Cholesterol in LDL [Mass/Vol] 18 mg/dL 0-130 [facility] Serum or plasma urea nitroge n measurement (mass/volume)Ordered By: Dr. Villa on 06-28-2022 Urea nitrogen [Mass/Vol] 21 mg/dL 7-18 [facility] Thin prep Papanicolaou smear with manual screeningOrdered By: Dr. Villa on 06-28-2022 Thin prep Papanicolaou smear with manual screening 41 U/L 15-37 [facility] Thin prep Papanicolaou smear with manual screening 9 5-15 [facility] Whole blood hemoglobin A1c/t otal hemoglobin ratio (mass fraction)Ordered By: Dr. Villa on 06-28-2022 HbA1c (Bld) [Mass fraction] 8.0 % 3.8-5.6 [facility] Comment on above: Normal < 5.7 % Predi abetic 5.7 - 6.4 % Diabetic >or= 6.5 % Please note range changes. Laboratory - Chemistry and C hemistry - challengeOrdered By: Dr. Bosch on 06-06-2022 Cobalamin (Vitamin B12) [Mass/Vol] 272 pg/mL 211-911 [facility] No Panel InformationOrdered By: Dr. Bosch on 06-06-2022 Thyroglobulin Antibody < 1.0 IU/mL 0.0-0.9 [facility] Comment on above: Thyroglobulin Antibo dy measured by MobilitieMethodologyPerformed at: - [facility] [address] [id number] Director: Yogesh Ramos MD, Phone: [phone] at: [employer] [address] [id number] Director: Tramaine Palacios PhD, Phone: [phone] Vitamin B6 Level 4.8 ug/L 3.4-65.2 [facility] Comment on above: Deficiency: <3.4 Mar ginal: 3.4 - 5.1 Adequate: >5.1 Whole Blood Vitamin B1 Level 134.6 nmol/L 66.5-200.0 [facility] Serum or plasma thyroperoxid ase antibody assay (units/volume)Ordered By: Dr. Bosch on 06-06-2022 TPO Ab Qn 92 [IU]/mL 0-34 [facility] 24 hour urine calcium measur ement (mass/volume)Ordered By: Dr. Villa on 05-17-2022 Calcium (24H U) [Mass/Vol] 6.8 mg/dL Not Estab. [facility] Basophil percentageOrdered B y: Dr. Villa on 05-17-2022 Basophil percentage 3.5 mg/dL 2.5-4.9 [facility] Laboratory - Chemistry and C hemistry - challengeOrdered By: Dr. Villa on 05-17-2022 Magnesium [Mass/Vol] 1.0 mg/dL 1.6-2.6 [facility] No Panel InformationOrdered By: Dr. Villa on 05-17-2022 Ionized Calcium 5.6 mg/dL 4.5-5.6 [facility] Comment on above: Performed at: [facility] [address] [place], [place] [id number] Director: Tramaine Palacios PhD, Phone: [phone] Miscellaneous Test See comment [facility] Comment on above: TEST RESULT LIMITS P THrP (PTH-Related Peptide) <2.0 pmol/L This test was developed and its performance characteristics determined by [facility]. It has not been cleared or approved by the Food and Drug Administration. Reference Range: All Ages: <2.0 The PTHrP assay should not be used to exclude cancer or screen tumor patients for humoral hypercalcemia of malignancy (HHM). The results should always be assessed in conjunction with the patient's medical history, clinical examination, and other findings. If test results are clinically discordant, please contact the laboratory. ____ TESTING PERFORMED AT [employer]. ORIGINAL REPORT ON FILE IN LAB CONTAINS ADDITIONAL TEST SITE INFORMATION. Parathyroid Hormone (Intact) 47.9 pg/mL 18.4-80.1 [facility] Vitamin D 25-Hydroxy 66.5 ng/mL [facility] Comment on above: Vitamin D 25(OH) Sta tus Range Deficiency <20 ng/mL (50nmol/L) Insufficiency 20 - 30 ng/mL (50 - 75 nmol/L) Sufficiency 30 - 100 ng/mL (75 - 250 nmol/L) Toxicity >100 ng/mL (>250 nmol/L) Serum or plasma calcitriol m easurement (mass/volume)Ordered By: Dr. Villa on 05-17-2022 1,25-dihydroxyvitamin D3 [Mass/Vol] 44.2 pg/mL 24.8-81.5 [facility] Comment on above: Performed at: [facility] [address] [id number] Director: Yogesh Ramos MD, Phone: [phone] Urine creatinine measurement (mass/volume)Ordered By: Dr. Villa on 05-17-2022 Creatinine (U) [Mass/Vol] 75.60 mg/dL NO RANGE EST. [facility] Culture, urineOrdered By: Giuliana Jacobs on 04-19-2022 Bacteria identified Cx Nom (U) Klebsiella pneumoniae sp pneum [facility] Basophil percentageOrdered B y: Dr. Villa on 04-11-2022 Basophil percentage 3.1 mg/dL 2.5-4.9 [facility] Bilirubin [Mass/Vol] 0.60 mg/dL 0.20-1.00 [facility] Comment on above: For patients on eltr ombopag therapy, use of Dimension [place] TBIL is not recommended. Chloride [Moles/Vol] 106 mmol/L 98-107 [facility] Cholesterol [Mass/Vol] 180 mg/dL <200 [facility] Comment on above: <200 mg/dL Desirable 200-240 mg/dL Borderline >240 mg/dL High Risk Glucose [Mass/Vol] 148 mg/dL 74-106 [facility] Comment on above: Fasting Glucose resu lt greater than or equal to 126 mg/dL suggests DIABETES MELLITUS per A.D.A. criteria. Potassium [Moles/Vol] 4.3 mmol/L 3.5-5.1 [facility] Protein [Mass/Vol] 7.7 g/dL 6.4-8.2 [facility] Sodium [Moles/Vol] 138 mmol/L 136-145 [facility] Triglyceride [Mass/Vol] 265 mg/dL <199 [facility] Comment on above: The drugs N-Acetylcy steine and Metamizole may falsely depress this assay.Serum Triglycerides Reference Interval Normal <150 mg/dL Borderline high 150 - 199 mg/dL High 200 - 499 mg/dL Very High > or = 500 mg/dL Laboratory - Chemistry and C hemistry - challengeOrdered By: Dr. Villa on 04-11-2022 ALP [Catalytic activity/Vol] 87 U/L 45-117 [facility] ALT [Catalytic activity/Vol] 22 U/L 13-56 [facility] CO2 [Moles/Vol] 24.0 mmol/L 21.0-32.0 [facility] Free T4 [Mass/Vol] 1.30 ng/dL 0.76-1.46 [facility] Globulin (S) [Mass/Vol] 3.9 g/dL 2.2-4.2 [facility] Urea nitrogen/Creatinine [Mass ratio] 23.5 mg/mg 10-20 [facility] No Panel InformationOrdered By: Dr. Villa on 04-11-2022 Estimated GFR (MDRD) Amer 101 mL/min >60 [facility] Comment on above: GFR Calc Estimated GFR (MDRD) Non-Af Amer 83 mL/min >60 [facility] Comment on above: Non- GFR Calc Ionized Calcium 6.6 mg/dL 4.5-5.6 [facility] Comment on above: Verified by repeat analysisPerformed at: [facility] [id number] Director: Tramaine Palacios PhD, Phone: [phone] Parathyroid Hormone (Intact) 50.6 pg/mL 18.4-80.1 [facility] Thyroid Stimulating Hormone (TSH) 0.96 uIU/mL 0.358-3.74 [facility] Vitamin D 25-Hydroxy 79.1 ng/mL [facility] Comment on above: Vitamin D 25(OH) Sta tus Range Deficiency <20 ng/mL (50nmol/L) Insufficiency 20 - 30 ng/mL (50 - 75 nmol/L) Sufficiency 30 - 100 ng/mL (75 - 250 nmol/L) Toxicity >100 ng/mL (>250 nmol/L) Serum or plasma albumin wale urement (mass/volume)Ordered By: Dr. Villa on 04-11-2022 Albumin [Mass/Vol] 3.8 g/dL 3.2-5.0 [facility] Serum or plasma albumin/glob ulin mass ratioOrdered By: Dr. Villa on 04-11-2022 Albumin/Globulin [Mass ratio] 1.0 {ratio} 0.9-2.4 [facility] Serum or plasma calcitriol m easurement (mass/volume)Ordered By: Dr. Villa on 04-11-2022 1,25-dihydroxyvitamin D3 [Mass/Vol] 46.9 pg/mL 24.8-81.5 [facility] Comment on above: Performed at: [address] [id number] Director: Yogesh Ramos MD, Phone: [phone] Serum or plasma calcium wale urement (mass/volume)Ordered By: Dr. Villa on 04-11-2022 Calcium [Mass/Vol] 11.1 mg/dL 8.5-10.1 [facility] Serum or plasma cholesterol in HDL measurement (mass/volume)Ordered By: Dr. Villa on 04-11-2022 Cholesterol in HDL [Mass/Vol] 41 mg/dL >40 [facility] Comment on above: The drugs N-Acetylcy steine and Metamizole may falsely depress this assay. Reference Range HDL <40 mg/dL Low HDL Cholesterol HDL >or= 60 mg/dL High HDL Cholesterol Serum or plasma cholesterol in VLDL measurement (mass/volume)Ordered By: Dr. Villa on 04-11-2022 Cholesterol in VLDL [Mass/Vol] 53 mg/dL 5-40 [facility] Serum or plasma creatinine m easurement (mass/volume)Ordered By: Dr. Villa on 04-11-2022 Creatinine [Mass/Vol] 0.72 mg/dL 0.55-1.02 [facility] Comment on above: The validity of the calculated GFR & GFRAA in patients over 70 years has not been determined. Clinical correlation is essential. Serum or plasma low density lipoprotein (LDL) cholesterol measurement (mass/volume)Ordered By: Dr. Villa on 04-11-2022 Cholesterol in LDL [Mass/Vol] 86 mg/dL 0-130 [facility] Serum or plasma urea nitroge n measurement (mass/volume)Ordered By: Dr. Villa on 04-11-2022 Urea nitrogen [Mass/Vol] 17 mg/dL 7-18 [facility] Thin prep Papanicolaou smear with manual screeningOrdered By: Dr. Villa on 04-11-2022 Thin prep Papanicolaou smear with manual screening 41 U/L 15-37 [facility] Thin prep Papanicolaou smear with manual screening 8 5-15 [facility] Whole blood hemoglobin A1c/t otal hemoglobin ratio (mass fraction)Ordered By: Dr. Villa on 04-11-2022 HbA1c (Bld) [Mass fraction] 7.2 % 3.8-5.6 [facility] Comment on above: Normal < 5.7 % Predi abetic 5.7 - 6.4 % Diabetic >or= 6.5 % Please note range changes. Glucose Glucometer (BldC) [M ass/Vol]Ordered By: Dr. Elizabeth on 03-16-2022 Glucose [Mass/Vol] 180 mg/dL 74-106 [facility] Comment on above: MANAGEMENT OF PATIEN T CARE PER NURSING PROTOCOL Absolute lymphocyte countOrd ered By: Dr. Elizabeth on 03-09-2022 Lymphocytes Auto (Unsp spec) [#/Vol] 3.71 10*3/uL 0.83-4.51 [facility] Basophil percentageOrdered B y: Dr. Elizabeth on 03-09-2022 Basophils/100 WBC (Bld) 1.1 % 0-1 [facility] Chloride [Moles/Vol] 106 mmol/L 98-107 [facility] Eosinophils/100 WBC (Bld) 4.4 % 0-5 [facility] Glucose [Mass/Vol] 144 mg/dL 74-106 [facility] Comment on above: Fasting Glucose resu lt greater than or equal to 126 mg/dL suggests DIABETES MELLITUS per A.D.A. criteria. Neutrophils (Bld) [#/Vol] 6.1 10*3/uL 2.0-7.7 [facility] Neutrophils/100 WBC (Bld) 54.6 % 47-70 [facility] Potassium [Moles/Vol] 4.0 mmol/L 3.5-5.1 [facility] Sodium [Moles/Vol] 139 mmol/L 136-145 [facility] WBC (Bld) [#/Vol] 11.2 10*3/uL 4.4-11.0 [facility] Blood erythrocytes count (nu mber/volume)Ordered By: Dr. Elizabeth on 03-09-2022 RBC (Bld) [#/Vol] 4.30 10*6/uL 4.2-5.4 [facility] Blood hemoglobin measurement (mass/volume)Ordered By: Dr. Elizabeth on 03-09-2022 Hemoglobin (Bld) [Mass/Vol] 12.9 g/dL 12.0-15.0 [facility] Blood lymphocytes/100 leukoc ytesOrdered By: Dr. Elizabeth on 03-09-2022 Lymphocytes/100 WBC (Bld) 33.0 % 19-41 [facility] Blood monocytes/100 leukocyt esOrdered By: Dr. Elizabeth on 03-09-2022 Monocytes/100 WBC (Bld) 6.5 % 0-10 [facility] Blood platelet mean volumeOr dered By: Dr. Elizabeth on 03-09-2022 Platelet mean volume (Bld) [Entitic vol] 10.4 fL 6.2-12.0 [facility] Determination of erythrocyte mean corpuscular volume (MCV)Ordered By: Dr. Elizabeth on 03-09-2022 MCV (RBC) [Entitic vol] 90.5 fL 81-99 [facility] Hematocrit Auto (Bld) [Volum e fraction]Ordered By: Dr. Elizabeth on 03-09-2022 Hematocrit (Bld) [Volume fraction] 38.9 % 37-47 [facility] Laboratory - Chemistry and C hemistry - challengeOrdered By: Dr. Elizabeth on 03-09-2022 CO2 [Moles/Vol] 28.0 mmol/L 21.0-32.0 [facility] Urea nitrogen/Creatinine [Mass ratio] 20.5 mg/mg 10-20 [facility] Laboratory - Hematology and Cell countsOrdered By: Dr. Elizabeth on 03-09-2022 Erythrocyte distribution width (RBC) [Entitic vol] 42.9 fL 35.1-43.9 [facility] Erythrocyte distribution width (RBC) [Ratio] 13.2 % 11.6-14.6 [facility] Immature granulocytes/100 WBC (Bld) 0.400 % 0.0-0.9 [facility] Comment on above: IG% - Immature Granu locytes (promyelocytes, myelocytes and metamyelocytes) > 1% indicates that a LEFT SHIFT is Present. MCH (RBC) [Entitic mass] 30.0 pg 27.0-32.0 [facility] Nucleated RBC/100 WBC (Bld) [Ratio] 0 % 0[facility]5 [facility] [Mass/Vol]Or dered By: Dr. Elizabeth on 03-09-2022 MCHC (RBC) [Mass/Vol] 33.2 g/dL 32-36 [facility] No Panel InformationOrdered By: Dr. Elizabeth on 03-09-2022 Estimated GFR (MDRD) Amer 99 mL/min >60 [facility] Comment on above: GFR Calc Estimated GFR (MDRD) Non-Af Amer 82 mL/min >60 [facility] Comment on above: Non- GFR Calc Vitamin D 25-Hydroxy 90.4 ng/mL [facility] Comment on above: Vitamin D 25(OH) Sta tus Range Deficiency <20 ng/mL (50nmol/L) Insufficiency 20 - 30 ng/mL (50 - 75 nmol/L) Sufficiency 30 - 100 ng/mL (75 - 250 nmol/L) Toxicity >100 ng/mL (>250 nmol/L) No Panel InformationOrdered By: Dr. Bradley on 03-09-2022 Thyroid Stimulating Hormone (TSH) 0.29 uIU/mL 0.358-3.74 [facility] Platelets bldOrdered By: Dr. Elizabeth on 03-09-2022 Platelets (Bld) [#/Vol] 306 10*3/uL 150-450 [facility] Serum or plasma albumin wale urement (mass/volume)Ordered By: Dr. Elizabeth on 03-09-2022 Albumin [Mass/Vol] 3.7 g/dL 3.2-5.0 [facility] Serum or plasma calcium wale urement (mass/volume)Ordered By: Dr. Elizabeth on 03-09-2022 Calcium [Mass/Vol] 10.6 mg/dL 8.5-10.1 [facility] Serum or plasma creatinine m easurement (mass/volume)Ordered By: Dr. Elizabeth on 03-09-2022 Creatinine [Mass/Vol] 0.73 mg/dL 0.55-1.02 [facility] Comment on above: The validity of the calculated GFR & GFRAA in patients over 70 years has not been determined. Clinical correlation is essential. Serum or plasma urea nitroge n measurement (mass/volume)Ordered By: Dr. Elizabeth on 03-09-2022 Urea nitrogen [Mass/Vol] 15 mg/dL -18 [facility] Thin prep Papanicolaou smear with manual screeningOrdered By: Dr. Elizabeth on 03-09-2022 Thin prep Papanicolaou smear with manual screening 5 -15 [facility] Whole blood hemoglobin A1c/t otal hemoglobin ratio (mass fraction)Ordered By: Dr. Elizabeth on 03-09-2022 HbA1c (Bld) [Mass fraction] 7.3 % 3.8-5.6 [facility] Comment on above: Normal < 5.7 % Predi abetic 5.7 - 6.4 % Diabetic >or= 6.5 % Please note range changes. Basophil percentageon 2021 Bilirubin [Mass/Vol] 0.40 mg/dL 0.20-1.00 [facility] Work Phone: Comment on above: For patients on eltr ombopag therapy, use of Dimension [place] TBIL is not recommended. Chloride [Moles/Vol] 105 mmol/L 98-107 [facility] Work Phone: Cholesterol [Mass/Vol] 143 mg/dL <200 [facility] Work Phone: Comment on above: <200 mg/dL Desirable 200-240 mg/dL Borderline >240 mg/dL High Risk Glucose [Mass/Vol] 153 mg/dL 74-106 [facility] Work Phone: Comment on above: Fasting Glucose resu lt greater than or equal to 126 mg/dL suggests DIABETES MELLITUS per A.D.A. criteria. Potassium [Moles/Vol] 4.4 mmol/L 3.5-5.1 [facility] Work Phone: Protein [Mass/Vol] 7.6 g/dL 6.4-8.2 [facility] Work Phone: Sodium [Moles/Vol] 138 mmol/L 136-145 [facility] Work Phone: Triglyceride [Mass/Vol] 290 mg/dL <199 [facility] Work Phone: Comment on above: The drugs N-Acetylcy steine and Metamizole may falsely depress this assay.Serum Triglycerides Reference Interval Normal <150 mg/dL Borderline high 150 - 199 mg/dL High 200 - 499 mg/dL Very High > or = 500 mg/dL Laboratory - Chemistry and C hemistry - challengeon 12-09-2021 ALP [Catalytic activity/Vol] 93 U/L 45-117 [facility] Work Phone: ALT [Catalytic activity/Vol] 26 U/L 13-56 [facility] Work Phone: CO2 [Moles/Vol] 25.0 mmol/L 21.0-32.0 [facility] Work Phone: Free T4 [Mass/Vol] 1.64 ng/dL 0.76-1.46 [facility] Work Phone: Globulin (S) [Mass/Vol] 4.1 g/dL 2.2-4.2 [facility] Work Phone: Urea nitrogen/Creatinine [Mass ratio] 24.0 mg/mg 10-20 [facility] Work Phone: No Panel Informationon 12-09 Estimated GFR (MDRD) Amer 77 mL/min >60 [facility] Work Phone: Comment on above: GFR Calc Estimated GFR (MDRD) Non-Af Amer 63 mL/min >60 [facility] Work Phone: Comment on above: Non- GFR Calc Thyroid Stimulating Hormone (TSH) 0.24 uIU/mL 0.358-3.74 [facility] Work Phone: Serum or plasma albumin wale urement (mass/volume)on 12-09-2021 Albumin [Mass/Vol] 3.5 g/dL 3.2-5.0 [facility] Work Phone: Serum or plasma albumin/glob ulin mass ratioon 07-29-2022 Albumin/Globulin [Mass ratio] 0.9 {ratio} 0.9-2.4 [facility] Work Phone: Serum or plasma calcium wale urement (mass/volume)on 12-09-2021 Calcium [Mass/Vol] 10.3 mg/dL 8.5-10.1 [facility] Work Phone: Serum or plasma cholesterol in HDL measurement (mass/volume)on 12-09-2021 Cholesterol in HDL [Mass/Vol] 35 mg/dL >40 [facility] Work Phone: Comment on above: The drugs N-Acetylcy steine and Metamizole may falsely depress this assay. Reference Range HDL <40 mg/dL Low HDL Cholesterol HDL >or= 60 mg/dL High HDL Cholesterol Serum or plasma cholesterol in VLDL measurement (mass/volume)on 12-09-2021 Cholesterol in VLDL [Mass/Vol] 58 mg/dL 5-40 [facility] Work Phone: Serum or plasma creatinine m easurement (mass/volume)on 12-09-2021 Creatinine [Mass/Vol] 0.92 mg/dL 0.55-1.02 [facility] Work Phone: Comment on above: The validity of the calculated GFR & GFRAA in patients over 70 years has not been determined. Clinical correlation is essential. Serum or plasma low density lipoprotein (LDL) cholesterol measurement (mass/volume)on 12-09-2021 Cholesterol in LDL [Mass/Vol] 50 mg/dL 0-130 [facility] Work Phone: Serum or plasma urea nitroge n measurement (mass/volume)on 12-09-2021 Urea nitrogen [Mass/Vol] 22 mg/dL 7-18 [facility] Work Phone: Thin prep Papanicolaou smear with manual screeningon 12-09-2021 Thin prep Papanicolaou smear with manual screening 44 U/L 15-37 [facility] Work Phone: Thin prep Papanicolaou smear with manual screening 8 5-15 [facility] Work Phone: Thin prep Papanicolaou smear with manual screening 12.9 mg/L NO RANGE EST. [facility] Work Phone: Whole blood hemoglobin A1c/t otal hemoglobin ratio (mass fraction)on 12-09-2021 HbA1c (Bld) [Mass fraction] 6.9 % 3.8-5.6 [facility] Work Phone: Comment on above: Normal < 5.7 % Predi abetic 5.7 - 6.4 % Diabetic >or= 6.5 % Please note range changes. Final Surgical Pathology Rep [facility] 09-23-2018 Final Surgical Pathology Report . Pathology Reports Accession: Collected Date/Time: Received Date/Time: Pathologist: [id number] 09/19/2018 14:43 EDT 09/20/2018 14:43 EDT ALBERTO SULLIVAN MD Final Surgical Pathology Report DIAGNOSIS: CECUM, POLYPECTOMY- TUBULAR ADENOMA. CLINICAL INFORMATION: CHANGE IN BOWELS SPECIMEN: A POLYP, CECUM BIOPSY GROSS DESCRIPTION: Received in formalin labeled cecum polyp is a 0.5 cm [place] glistening soft tissue. TS -1 Dictated by Angeli BHATT ([facility]) MICROSCOPIC DESCRIPTION: Slides reviewed. Electronically Signed by Pathology Report verified by [facility] Electronically signed by ALBERTO SULLIVAN Sign out Date: 09/23/2018 15:23 Performing Lab: [address] ([place]) Comment on above: Performed By: #### S PFR #### [place] [address] Culture, urine Bacteria identified Cx Nom (U) Klebsiella pneumoniae sp pneum [facility] Work Phone: Vital Signs Date Time Vital Sign Value Performing Clinician Facility 11-06-2024 11:48-0400 Body height 154.[address] Benny Bosch MD Work Phone: [facility] 11-06-2024 11:48-0400 Body mass index (BMI) [Ratio] 33.4 kg/m2 Dr. Benny Bosch MD Work Phone: [facility] 11-06-2024 11:48-0400 Body temperature 97.8 [degF] Dr. Benny Bosch MD Work Phone: [facility] 11-06-2024 11:48-0400 Body weight 80.[address] Benny Bosch MD Work Phone: [facility] 11-06-2024 11:48-0400 Diastolic blood pressure 76 mm[Hg] Dr. Benny Bosch MD Work Phone: [facility] 11-06-2024 11:48-0400 Heart rate 89 /min Dr. Benny Bosch MD Work Phone: [facility] 11-06-2024 11:48-0400 Respiratory rate 16 /min Dr. Benny Bosch MD Work Phone: [facility] 11-06-2024 11:48-0400 SaO2% (BldA) [Mass fraction] 97 % Dr. Benny Bosch MD Work Phone: [facility] 11-06-2024 11:48-0400 Systolic blood pressure 138 mm[Hg] Dr. Benny Bosch MD Work Phone: [facility] 08-18-2024 10:34-0400 Body mass index (BMI) [Ratio] 33.81 kg/m2 Danay Griffin Work Phone: [facility] 08-18-2024 10:34-0400 Body temperature 97.39 [degF] Danaycarla Griffin Work Phone: [facility] 08-18-2024 10:34-0400 Body weight 79.83 kg Danay Griffin Work Phone: [facility] 08-18-2024 10:34-0400 Diastolic blood pressure 110 mm[Hg] Danay Lozoyaight Work Phone: [facility] 08-18-2024 10:34-0400 Heart rate 74 /min Danay Griffin Work Phone: [facility] 08-18-2024 10:34-0400 SaO2% (BldA) [Mass fraction] 99 % Danay Lozoyaight Work Phone: [facility] 08-18-2024 10:34-0400 Systolic blood pressure 186 mm[Hg] Danay Griffin Work Phone: [facility] 08-18-2024 08:00-0400 Body temperature 98.2 [degF] Treatment Wstr Work Phone: [facility] 08-18-2024 08:00-0400 Diastolic blood pressure 89 mm[Hg] Treatment Wstr Work Phone: [facility] 08-18-2024 08:00-0400 Heart rate 67 /min Treatment Wstr Work Phone: [facility] 08-18-2024 08:00-0400 Systolic blood pressure 164 mm[Hg] Treatment Wstr Work Phone: [facility] 06-03-2024 14:03-0500 Body temperature 97.5 [degF] Dr. Benny Bosch MD Work Phone: [facility] 06-03-2024 14:03-0500 Diastolic blood pressure 61 mm[Hg] Dr. Benny Bosch MD Work Phone: [facility] 06-03-2024 14:03-0500 Heart rate 63 /min Dr. Benny Bosch MD Work Phone: [facility] 06-03-2024 14:03-0500 Respiratory rate 16 /min Dr. Benny Bosch MD Work Phone: [facility] 06-03-2024 14:03-0500 SaO2% (BldA) [Mass fraction] 97 % Dr. Benny Bosch MD Work Phone: [facility] 06-03-2024 14:03-0500 Systolic blood pressure 104 mm[Hg] Dr. Benny Bosch MD Work Phone: [facility] 06-03-2024 12:50-0500 Body height 154.[address] Benny Bosch MD Work Phone: [facility] 06-03-2024 12:50-0500 Body mass index (BMI) [Ratio] 30.4 kg/m2 Dr. Benny Bosch MD Work Phone: 0(307)574-433464 [place] [address] 06-03-2024 12:50-0500 Body weight [address] Benny Bosch MD Work Phone: 7(871)244-643164 [place] [address] 05-23-2024 07:55-0500 Body temperature 97.6 [degF] Dr. Benny Bosch MD Work Phone: 8(625)091-089415 [place] [address] 05-23-2024 07:55-0500 Diastolic blood pressure 56 mm[Hg] Dr. Benny Bosch MD Work Phone: 1(028)862-553815 [place] [address] 05-23-2024 07:55-0500 Heart rate 76 /min Dr. Benny Bosch MD Work Phone: 1(028)195-805715 [place] [address] 05-23-2024 07:55-0500 Respiratory rate 16 /min Dr. Benny Bosch MD Work Phone: 4(223)549-044915 [place] [address] 05-23-2024 07:55-0500 SaO2% (BldA) [Mass fraction] 96 % Dr. Benny Bosch MD Work Phone: 2(935)310-092215 [place] [address] 05-23-2024 07:55-0500 Systolic blood pressure 99 mm[Hg] Dr. Benny Bosch MD Work Phone: 7(890)423-570315 [place] [address] 05-23-2024 06:22-0500 Body mass index (BMI) [Ratio] 30.8 kg/m2 Dr. Benny Bosch MD Work Phone: 7(086)915-364764 [place] [address] 05-23-2024 06:22-0500 Body weight [address] Benny Bosch MD Work Phone: 8(438)152-538615 [place] [address] 05-13-2024 13:26-0500 Body mass index (BMI) [Ratio] 30.6 kg/m2 Dr. Benny Bosch MD Work Phone: 8(460)326-266364 [place] [address] 05-13-2024 13:26-0500 Body temperature 98.2 [degF] Dr. Benny Bosch MD Work Phone: [facility] 05-13-2024 13:26-0500 Body weight 73.[address] Benny Bosch MD Work Phone: [facility] 05-13-2024 13:26-0500 Diastolic blood pressure 84 mm[Hg] Dr. Benny Bosch MD Work Phone: [facility] 05-13-2024 13:26-0500 Heart rate 91 /min Dr. Benny Bosch MD Work Phone: [facility] 05-13-2024 13:26-0500 Respiratory rate 14 /min Dr. Benny Bosch MD Work Phone: [facility] 05-13-2024 13:26-0500 SaO2% (BldA) [Mass fraction] 96 % Dr. Benny Bosch MD Work Phone: 5(020)097-311364 [place] [address] 05-13-2024 13:26-0500 Systolic blood pressure 148 mm[Hg] Dr. Benny Bosch MD Work Phone: [facility] 04-24-2024 14:33-0500 Body temperature 97.7 [degF] Dr. Benny Bosch MD Work Phone: [facility] 04-24-2024 14:33-0500 Diastolic blood pressure 89 mm[Hg] Dr. Benny Bosch MD Work Phone: [facility] 04-24-2024 14:33-0500 Heart rate 79 /min Dr. Benny Bosch MD Work Phone: [facility] 04-24-2024 14:33-0500 Respiratory rate 17 /min Dr. Benny Bosch MD Work Phone: [facility] 04-24-2024 14:33-0500 SaO2% (BldA) [Mass fraction] 96 % Dr. Benny Bosch MD Work Phone: [facility] 04-24-2024 14:33-0500 Systolic blood pressure 157 mm[Hg] Dr. Benny Bosch MD Work Phone: [facility] 04-24-2024 10:29-0500 Body mass index (BMI) [Ratio] 31.4 kg/m2 Dr. Benny Bosch MD Work Phone: [facility] 04-24-2024 10:29-0500 Body weight 75.[address] Benny Bosch MD Work Phone: [facility] 03-03-2024 08:31-0400 Body mass index (BMI) [Ratio] 33.42 kg/m2 Danay Griffin Work Phone: [facility] 03-03-2024 08:31-0400 Body temperature 97.3 [degF] Danay Griffin Work Phone: [facility] 03-03-2024 08:31-0400 Body weight 78.93 kg Danay Griffin Work Phone: [facility] 03-03-2024 08:31-0400 Diastolic blood pressure 92 mm[Hg] Danay Griffin Work Phone: [facility] 03-03-2024 08:31-0400 Heart rate 78 /min Danay Griffin Work Phone: [facility] 03-03-2024 08:31-0400 SaO2% (BldA) [Mass fraction] 98 % Danay Griffin Work Phone: [facility] 03-03-2024 08:31-0400 Systolic blood pressure 155 mm[Hg] Danay Griffin Work Phone: [facility] 01-28-2024 09:38-0400 Body height 153.7 cm Marshal Park MD Work Phone: [facility] 01-28-2024 09:38-0400 Body mass index (BMI) [Ratio] 33.42 kg/m2 Marshal Park MD Work Phone: [facility] 01-28-2024 09:38-0400 Body weight 78.93 kg Marshal Park MD Work Phone: [facility] 01-28-2024 09:38-0400 Diastolic blood pressure 94 mm[Hg] Marshal Park MD Work Phone: [facility] 01-28-2024 09:38-0400 Systolic blood pressure 130 mm[Hg] Marshal Park MD Work Phone: [facility] 12-11-2023 09:28-0400 Body mass index (BMI) [Ratio] 33.05 kg/m2 Susan Wilkinson ENVIRONMENTAL SYSTEMS COORDINATOR.[employer] Work Phone: [facility] 12-11-2023 09:28-0400 Body temperature 97.2 [degF] Susan Wilkinson ENVIRONMENTAL SYSTEMS COORDINATOR.[employer] Work Phone: [facility] 12-11-2023 09:28-0400 Body weight 78.88 kg Susan Wilkinson ENVIRONMENTAL SYSTEMS COORDINATOR.[employer] Work Phone: [facility] 12-11-2023 09:28-0400 Diastolic blood pressure 83 mm[Hg] Susan Wilkinson ENVIRONMENTAL SYSTEMS COORDINATOR.[employer] Work Phone: [facility] 12-11-2023 09:28-0400 Heart rate 77 /min Susan Wilkinson ENVIRONMENTAL SYSTEMS COORDINATOR.[employer] Work Phone: [facility] 12-11-2023 09:28-0400 SaO2% (BldA) [Mass fraction] 99 % Susan Wilkinson ENVIRONMENTAL SYSTEMS COORDINATOR.[employer] Work Phone: [facility] 12-11-2023 09:28-0400 Systolic blood pressure 152 mm[Hg] Susan Wilkinson ENVIRONMENTAL SYSTEMS COORDINATOR.[employer] Work Phone: [facility] 09-18-2023 09:00-0400 Body temperature 97.59 [degF] Treatment Wstr Work Phone: [facility] 09-18-2023 09:00-0400 Diastolic blood pressure 67 mm[Hg] Treatment Wstr Work Phone: [facility] 09-18-2023 09:00-0400 Heart rate 74 /min Treatment Wstr Work Phone: [facility] 09-18-2023 09:00-0400 Systolic blood pressure 154 mm[Hg] Treatment Wstr Work Phone: [facility] 08-03-2023 09:15-0400 Body temperature 98.1 [degF] Susan Choudhuryenter ENVIRONMENTAL SYSTEMS COORDINATOR.[employer] Work Phone: [facility] 08-03-2023 09:15-0400 Body weight 78.47 kg Susan Wilkinson ENVIRONMENTAL SYSTEMS COORDINATOR.[employer] Work Phone: [facility] 08-03-2023 09:15-0400 Diastolic blood pressure 84 mm[Hg] Susan Choudhuryenter ENVIRONMENTAL SYSTEMS COORDINATOR.[employer] Work Phone: [facility] 08-03-2023 09:15-0400 Heart rate 75 /min Susan Wilkinson ENVIRONMENTAL SYSTEMS COORDINATOR.[employer] Work Phone: [facility] 08-03-2023 09:15-0400 SaO2% (BldA) [Mass fraction] 97 % Susan Wilkinson ENVIRONMENTAL SYSTEMS COORDINATOR.[employer] WR[employer] Work Phone: [facility] 08-03-2023 09:15-0400 Systolic blood pressure 146 mm[Hg] [place] [employer] Wilkinson ENVIRONMENTAL SYSTEMS COORDINATOR.[employer]IA WR[employer]PER [employer]KER Work Phone: [facility] 06-28-2023 11:32-0500 Body height 154.[address] Benny Bosch Work Phone: [facility] 06-28-2023 11:32-0500 Body mass index (BMI) [Ratio] 32.3 kg/m2 Dr. Benny Bosch Work Phone: [facility] 06-28-2023 11:32-0500 Body temperature 98 [degF] Dr. Benny Bosch Work Phone: [facility] 06-28-2023 11:32-0500 Body weight 77.[address] Benny Bosch Work Phone: [facility] 06-28-2023 11:32-0500 Diastolic blood pressure 86 mm[Hg] Dr. Benny Bosch Work Phone: [facility] 06-28-2023 11:32-0500 Heart rate 77 /min Dr. Benny Bosch Work Phone: [facility] 06-28-2023 11:32-0500 Respiratory rate 16 /min Dr. Benny Bosch Work Phone: [facility] 06-28-2023 11:32-0500 SaO2% (BldA) [Mass fraction] 98 % Dr. Benny Bosch Work Phone: [facility] 06-28-2023 11:32-0500 Systolic blood pressure 128 mm[Hg] Dr. Benny Bosch Work Phone: [facility] 06-21-2023 11:37-0500 Body mass index (BMI) [Ratio] 32.8 kg/m2 Dr. Benny Bosch Work Phone: [facility] 06-21-2023 11:37-0500 Body temperature 98 [degF] Dr. Benny Bosch Work Phone: [facility] 06-21-2023 11:37-0500 Body weight 78.[address] Benny Bosch Work Phone: [facility] 06-21-2023 11:37-0500 Diastolic blood pressure 74 mm[Hg] Dr. Benny Bosch Work Phone: [facility] 06-21-2023 11:37-0500 Heart rate 78 /min Dr. Benny Bosch Work Phone: [facility] 06-21-2023 11:37-0500 Respiratory rate 17 /min Dr. Benny Bosch Work Phone: [facility] 06-21-2023 11:37-0500 SaO2% (BldA) [Mass fraction] 96 % Dr. Benny Bosch Work Phone: [facility] 06-21-2023 11:37-0500 Systolic blood pressure 110 mm[Hg] Dr. Benny Bosch Work Phone: [facility] 05-19-2023 10:50-0500 Body temperature 97.8 [degF] Dr. Benny Bosch Work Phone: [facility] 05-19-2023 10:50-0500 Diastolic blood pressure 78 mm[Hg] Dr. Benny Bosch Work Phone: [facility] 05-19-2023 10:50-0500 Heart rate 84 /min Dr. Benny Bosch Work Phone: [facility] 05-19-2023 10:50-0500 Respiratory rate 14 /min Dr. Benny Bosch Work Phone: [facility] 05-19-2023 10:50-0500 SaO2% (BldA) [Mass fraction] 96 % Dr. Benny Bosch Work Phone: [facility] 05-19-2023 10:50-0500 Systolic blood pressure 120 mm[Hg] Dr. Benny Bosch Work Phone: [facility] 04-20-2023 11:00-0500 Body temperature 97.59 [degF] Susan Wilkinson ENVIRONMENTAL SYSTEMS COORDINATOR.[employer] WR[employer]PER MAKER Work Phone: [facility] 04-20-2023 11:00-0500 Body weight 76.66 kg Susan Wilkinson ENVIRONMENTAL SYSTEMS COORDINATOR.[employer] WR[employer]PER MAKER Work Phone: [facility] 04-20-2023 11:00-0500 Diastolic blood pressure 84 mm[Hg] [place] [employer] Wilkinson ENVIRONMENTAL SYSTEMS COORDINATOR.LUMPIA WRAPPER MAKER Work Phone: [facility] 04-20-2023 11:00-0500 Heart rate 81 /min [employer] Wilkinson ENVIRONMENTAL SYSTEMS COORDINATOR.LUMPIA WRAPPER MAKER Work Phone: [facility] 04-20-2023 11:00-0500 Systolic blood pressure 147 mm[Hg] Susan Wilkinson ENVIRONMENTAL SYSTEMS COORDINATOR.LU[employer]IA WRAPPER MAKER Work Phone: [facility] 04-03-2023 09:41-0500 Body temperature 97.5 [degF] Treatment Wstr Work Phone: [facility] 04-03-2023 09:41-0500 Diastolic blood pressure 78 mm[Hg] Treatment Wstr Work Phone: [facility] 04-03-2023 09:41-0500 Heart rate 69 /min Treatment Wstr Work Phone: [facility] 04-03-2023 09:41-0500 Systolic blood pressure 136 mm[Hg] Treatment Wstr Work Phone: [facility] 03-27-2023 10:16-0500 Body temperature 97.59 [degF] Joy Barry MD, MD Work Phone: [facility] 03-27-2023 10:16-0500 Diastolic blood pressure 84 mm[Hg] Joy Barry MD, MD Work Phone: [facility] 03-27-2023 10:16-0500 Heart rate 70 /min Joy Barry MD, MD Work Phone: [facility] 03-27-2023 10:16-0500 SaO2% (BldA) [Mass fraction] 97 % Joy Barry MD, MD Work Phone: [facility] 03-27-2023 10:16-0500 Systolic blood pressure 145 mm[Hg] Joy Barry MD, MD Work Phone: [facility] 03-20-2023 10:33-0500 Body temperature 98.01 [degF] Joy Barry MD, MD Work Phone: [facility] 03-20-2023 10:33-0500 Diastolic blood pressure 72 mm[Hg] Joy Barry MD, MD Work Phone: [facility] 03-20-2023 10:33-0500 Heart rate 78 /min Joy Barry MD, MD Work Phone: [facility] 03-20-2023 10:33-0500 SaO2% (BldA) [Mass fraction] 98 % Joy Barry MD, MD Work Phone: [facility] 03-20-2023 10:33-0500 Systolic blood pressure 122 mm[Hg] Joy Barry MD, MD Work Phone: [facility] 03-15-2023 14:42-0400 Body height 154.[address] Benny Bosch Work Phone: [facility] 03-15-2023 14:42-0400 Body mass index (BMI) [Ratio] 32.4 kg/m2 Dr. Benny Bosch Work Phone: [facility] 03-15-2023 14:42-0400 Body temperature 98.2 [degF] Dr. Benny Bosch Work Phone: [facility] 03-15-2023 14:42-0400 Body weight 77.[address] Benny Bosch Work Phone: [facility] 03-15-2023 14:42-0400 Diastolic blood pressure 80 mm[Hg] Dr. Benny Bosch Work Phone: [facility] 03-15-2023 14:42-0400 Heart rate 76 /min Dr. Benny Bosch Work Phone: [facility] 03-15-2023 14:42-0400 Respiratory rate 17 /min Dr. Benny Bosch Work Phone: [facility] 03-15-2023 14:42-0400 SaO2% (BldA) [Mass fraction] 95 % Dr. Benny Bosch Work Phone: [facility] 03-15-2023 14:42-0400 Systolic blood pressure 130 mm[Hg] Dr. Benny Bosch Work Phone: [facility] 03-13-2023 10:17-0400 Body temperature 97.3 [degF] Joy Barry MD, MD Work Phone: [facility] 03-13-2023 10:17-0400 Diastolic blood pressure 82 mm[Hg] Joy Barry MD, MD Work Phone: [facility] 03-13-2023 10:17-0400 Heart rate 69 /min Joy Barry MD, MD Work Phone: [facility] 03-13-2023 10:17-0400 SaO2% (BldA) [Mass fraction] 98 % Joy Barry MD, MD Work Phone: [facility] 03-13-2023 10:17-0400 Systolic blood pressure 138 mm[Hg] Joy Barry MD, MD Work Phone: [facility] 03-06-2023 10:35-0400 Body temperature 97.3 [degF] Joy Barry MD, MD Work Phone: [facility] 03-06-2023 10:35-0400 Diastolic blood pressure 80 mm[Hg] oJy Barry MD, MD Work Phone: [facility] 03-06-2023 10:35-0400 Heart rate 67 /min Joy Barry MD, MD Work Phone: [facility] 03-06-2023 10:35-0400 SaO2% (BldA) [Mass fraction] 99 % Joy Barry MD, MD Work Phone: [facility] 03-06-2023 10:35-0400 Systolic blood pressure 156 mm[Hg] Joy Barry MD, MD Work Phone: [facility] 02-27-2023 10:14-0400 Body temperature 97.11 [degF] Joy Barry MD, MD Work Phone: [facility] 02-27-2023 10:14-0400 Diastolic blood pressure 75 mm[Hg] Joy Barry MD, MD Work Phone: [facility] 02-27-2023 10:14-0400 Heart rate 72 /min Joy Barry MD, MD Work Phone: [facility] 02-27-2023 10:14-0400 SaO2% (BldA) [Mass fraction] 97 % Joy Barry MD, MD Work Phone: [facility] 02-27-2023 10:14-0400 Systolic blood pressure 132 mm[Hg] Joy Barry MD, MD Work Phone: [facility] 02-22-2023 13:43-0400 Body temperature 97.8 [degF] Dr. Benny Bosch Work Phone: [facility] 02-22-2023 13:43-0400 Diastolic blood pressure 72 mm[Hg] Dr. Benny Bosch Work Phone: [facility] 02-22-2023 13:43-0400 Heart rate 76 /min Dr. Benny Bosch Work Phone: [facility] 02-22-2023 13:43-0400 Respiratory rate 18 /min Dr. Benny Bosch Work Phone: [facility] 02-22-2023 13:43-0400 SaO2% (BldA) [Mass fraction] 96 % Dr. Benny Bosch Work Phone: [facility] 02-22-2023 13:43-0400 Systolic blood pressure 140 mm[Hg] Dr. Benny Bosch Work Phone: [facility] 02-02-2023 14:23-0400 Body temperature 98.01 [degF] Joy Barry MD, MD Work Phone: [facility] 02-02-2023 14:23-0400 Body weight 78.02 kg Joy Barry MD, MD Work Phone: [facility] 02-02-2023 14:23-0400 Diastolic blood pressure 83 mm[Hg] Joy Barry MD, MD Work Phone: [facility] 02-02-2023 14:23-0400 Heart rate 72 /min Joy Barry MD, MD Work Phone: [facility] 02-02-2023 14:23-0400 Respiratory rate 15 /min Joy Barry MD, MD Work Phone: [facility] 02-02-2023 14:23-0400 SaO2% (BldA) [Mass fraction] 97 % Joy Barry MD, MD Work Phone: [facility] 02-02-2023 14:23-0400 Systolic blood pressure 155 mm[Hg] Joy Barry MD, MD Work Phone: [facility] 02-02-2023 13:32-0400 Body height 154.5 cm Bobby Masci DO Work Phone: [facility] 02-02-2023 13:32-0400 Body temperature 98.01 [degF] Bobby Masci DO Work Phone: [facility] 02-02-2023 13:32-0400 Body weight 78.02 kg Bobby Masci DO Work Phone: [facility] 02-02-2023 13:32-0400 Diastolic blood pressure 83 mm[Hg] Bobby Masci DO Work Phone: [facility] 02-02-2023 13:32-0400 Heart rate 72 /min Bobby Masci DO Work Phone: [facility] 02-02-2023 13:32-0400 SaO2% (BldA) [Mass fraction] 97 % Bobby Masci DO Work Phone: [facility] 02-02-2023 13:32-0400 Systolic blood pressure 155 mm[Hg] Bobby Masci DO Work Phone: [facility] 01-05-2023 16:12-0400 Diastolic blood pressure 82 mm[Hg] Pacc 2 Work Phone: [facility] 01-05-2023 16:12-0400 Systolic blood pressure 155 mm[Hg] Pacc 2 Work Phone: [facility] 01-05-2023 14:25-0400 Body height 154.9 cm Pacc 2 Work Phone: [facility] 01-05-2023 14:25-0400 Body temperature 97.81 [degF] Pacc 2 Work Phone: [facility] 01-05-2023 14:25-0400 Body weight 78.56 kg Pacc 2 Work Phone: [facility] 01-05-2023 14:25-0400 Heart rate 70 /min Pacc 2 Work Phone: [facility] 01-05-2023 14:25-0400 Respiratory rate 16 /min Pacc 2 Work Phone: [facility] 01-05-2023 14:25-0400 SaO2% (BldA) [Mass fraction] 97 % Pacc 2 Work Phone: [facility] 12-22-2022 13:53-0400 Body temperature 98.1 [degF] Samuel Dinh MD Work Phone: [facility] 12-22-2022 13:53-0400 Body weight 78.02 kg Samuel Dinh MD Work Phone: [facility] 12-22-2022 13:53-0400 Diastolic blood pressure 65 mm[Hg] Samuel Dinh MD Work Phone: [facility] 12-22-2022 13:53-0400 Heart rate 81 /min Samuel Dinh MD Work Phone: [facility] 12-22-2022 13:53-0400 SaO2% (BldA) [Mass fraction] 97 % Samuel Dinh MD Work Phone: [facility] 12-22-2022 13:53-0400 Systolic blood pressure 167 mm[Hg] Samuel Dinh MD Work Phone: [facility] 12-22-2022 10:41-0400 Body height 154.9 cm Mickiag Parkinson DO Work Phone: [facility] 12-22-2022 10:41-0400 Body weight 78.02 kg Micki Draperente DO Work Phone: [facility] 12-05-2022 09:10-0400 Body temperature 98.1 [degF] Dr. Benny Bosch Work Phone: [facility] 12-05-2022 09:10-0400 Diastolic blood pressure 88 mm[Hg] Dr. Benny Bosch Work Phone: [facility] 12-05-2022 09:10-0400 Heart rate 72 /min Dr. Benny Bosch Work Phone: [facility] 12-05-2022 09:10-0400 Respiratory rate 17 /min Dr. Benny Bosch Work Phone: [facility] 12-05-2022 09:10-0400 SaO2% (BldA) [Mass fraction] 97 % Dr. Benny Bosch Work Phone: [facility] 12-05-2022 09:10-0400 Systolic blood pressure 164 mm[Hg] Dr. Benny Bosch Work Phone: [facility] 12-04-2022 10:10-0400 Body height 154.[address] Benny Bosch Work Phone: [facility] 12-04-2022 10:10-0400 Body mass index (BMI) [Ratio] 32.5 kg/m2 Dr. Benny Bosch Work Phone: [facility] 12-04-2022 10:10-0400 Body temperature 98.2 [degF] Dr. Benny Bosch Work Phone: [facility] 12-04-2022 10:10-0400 Body weight 78.[address] Benny Bosch Work Phone: [facility] 12-04-2022 10:10-0400 Diastolic blood pressure 82 mm[Hg] Dr. Benny Bosch Work Phone: [facility] 12-04-2022 10:10-0400 Heart rate 79 /min Dr. Benny Bosch Work Phone: [facility] 12-04-2022 10:10-0400 Respiratory rate 18 /min Dr. Benny Bosch Work Phone: [facility] 12-04-2022 10:10-0400 SaO2% (BldA) [Mass fraction] 99 % Dr. Benny Bosch Work Phone: [facility] 12-04-2022 10:10-0400 Systolic blood pressure 160 mm[Hg] Dr. Benny Bosch Work Phone: [facility] 2022 15:00-0400 Body mass index (BMI) [Ratio] 32.2 kg/m2 Dr. Benny Bosch Work Phone: [facility] 2022 15:00-0400 Body temperature 98.3 [degF] Dr. Benny Bosch Work Phone: [facility] 2022 15:00-0400 Body weight 77.[address] Benny Bosch Work Phone: [facility] 2022 15:00-0400 Diastolic blood pressure 76 mm[Hg] Dr. Benny Bosch Work Phone: [facility] 2022 15:00-0400 Heart rate 80 /min Dr. Benny Bosch Work Phone: [facility] 2022 15:00-0400 Respiratory rate 16 /min Dr. Benny Bosch Work Phone: [facility] 2022 15:00-0400 SaO2% (BldA) [Mass fraction] 97 % Dr. Benny Bosch Work Phone: [facility] 2022 15:00-0400 Systolic blood pressure 127 mm[Hg] Dr. Benny Bosch Work Phone: [facility] 11-15-2022 13:12-0400 Body height 154.[address] Benny Bosch Work Phone: [facility] 11-15-2022 13:12-0400 Body mass index (BMI) [Ratio] 32 kg/m2 Dr. Benny Bosch Work Phone: [facility] 11-15-2022 13:12-0400 Body temperature 98.1 [degF] Dr. Benny Bosch Work Phone: [facility] 11-15-2022 13:12-0400 Body weight 76.[address] Benny Bosch Work Phone: [facility] 11-15-2022 13:12-0400 Diastolic blood pressure 78 mm[Hg] Dr. Benny Bosch Work Phone: [facility] 11-15-2022 13:12-0400 Heart rate 78 /min Dr. Benny Bosch Work Phone: [facility] 11-15-2022 13:12-0400 Respiratory rate 16 /min Dr. Benny Bosch Work Phone: [facility] 11-15-2022 13:12-0400 SaO2% (BldA) [Mass fraction] 98 % Dr. Benny Bosch Work Phone: [facility] 11-15-2022 13:12-0400 Systolic blood pressure 157 mm[Hg] Dr. Benny Bosch Work Phone: [facility] 09-17-2022 11:26-0400 Body temperature 97.8 [degF] Dr. Benny Bosch Work Phone: [facility] 09-17-2022 11:26-0400 Diastolic blood pressure 86 mm[Hg] Dr. Benny Bosch Work Phone: [facility] 09-17-2022 11:26-0400 Heart rate 87 /min Dr. Benny Bosch Work Phone: [facility] 09-17-2022 11:26-0400 Respiratory rate 16 /min Dr. Benny Bosch Work Phone: [facility] 09-17-2022 11:26-0400 SaO2% (BldA) [Mass fraction] 98 % Dr. Benny Bosch Work Phone: [facility] 09-17-2022 11:26-0400 Systolic blood pressure 186 mm[Hg] Dr. Benny Bosch Work Phone: [facility] 08-17-2022 19:55-0400 Diastolic blood pressure 139 mm[Hg] Dr. Benny Bosch Work Phone: [facility] 08-17-2022 19:55-0400 Heart rate 77 /min Dr. Benny Bosch Work Phone: [facility] 08-17-2022 19:55-0400 Respiratory rate 16 /min Dr. Benny Bosch Work Phone: [facility] 08-17-2022 19:55-0400 SaO2% (BldA) [Mass fraction] 97 % Dr. Benny Bosch Work Phone: [facility] 08-17-2022 19:55-0400 Systolic blood pressure 179 mm[Hg] Dr. Benny Bosch Work Phone: [facility] 08-17-2022 15:29-0400 Body height 160.[address] Benny Bosch Work Phone: [facility] 08-17-2022 15:29-0400 Body mass index (BMI) [Ratio] 31.1 kg/m2 Dr. Benny Bosch Work Phone: [facility] 08-17-2022 15:29-0400 Body temperature 97.8 [degF] Dr. Benny Bosch Work Phone: [facility] 08-17-2022 15:29-0400 Body weight 79.[address] Benny Bosch Work Phone: [facility] 04-07-2022 12:39-0500 Body temperature 98.2 [degF] Dr. Benny Bosch Work Phone: [facility] 04-07-2022 12:39-0500 Diastolic blood pressure 72 mm[Hg] Dr. Benny Bosch Work Phone: [facility] 04-07-2022 12:39-0500 Heart rate 71 /min Dr. Benny Bosch Work Phone: [facility] 04-07-2022 12:39-0500 Respiratory rate 16 /min Dr. Benny Bosch Work Phone: [facility] 04-07-2022 12:39-0500 SaO2% (BldA) [Mass fraction] 98 % Dr. Benny Bosch Work Phone: [facility] 04-07-2022 12:39-0500 Systolic blood pressure 168 mm[Hg] Dr. Benny Bosch Work Phone: [facility] 03-16-2022 12:01-0400 Body temperature 98.8 [degF] [facility] 03-16-2022 12:01-0400 Diastolic blood pressure 68 mm[Hg] [facility] 03-16-2022 12:01-0400 Heart rate 74 /min [facility] 03-16-2022 12:01-0400 Respiratory rate 16 /min [facility] 03-16-2022 12:01-0400 SaO2% (BldA) [Mass fraction] 95 % [facility] 03-16-2022 12:01-0400 Systolic blood pressure 146 mm[Hg] [facility] 03-16-2022 09:45-0400 Inhaled oxygen flow rate 2 L/min [facility] 03-16-2022 06:30-0400 Body height 154.94 cm [facility] 03-16-2022 06:30-0400 Body mass index (BMI) [Ratio] 35.8 kg/m2 [facility] 03-16-2022 06:30-0400 Body weight 86 kg [facility] 11-02-2021 16:04-0400 Body temperature 98.2 [degF] Dr. Benny Bosch Work Phone: [facility] Work Phone: 11-02-2021 16:04-0400 Diastolic blood pressure 74 mm[Hg] Dr. Benny Bosch Work Phone: [facility] Work Phone: 11-02-2021 16:04-0400 Heart rate 74 /min Dr. Benny Bosch Work Phone: [facility] Work Phone: 11-02-2021 16:04-0400 Respiratory rate 14 /min Dr. Benny Bosch Work Phone: [facility] Work Phone: 11-02-2021 16:04-0400 SaO2% (BldA) [Mass fraction] 97 % Dr. Benny Bosch Work Phone: [facility] Work Phone: 11-02-2021 16:04-0400 Systolic blood pressure 118 mm[Hg] Dr. Benny Bosch Work Phone: [facility] Work Phone: 09-26-2021 12:11-0400 Body temperature 98.2 [degF] Dr. Benny Bosch Work Phone: [facility] Work Phone: 09-26-2021 12:11-0400 Diastolic blood pressure 88 mm[Hg] Dr. Benny Bosch Work Phone: [facility] Work Phone: 09-26-2021 12:11-0400 Heart rate 78 /min Dr. Benny Bosch Work Phone: [facility] Work Phone: 09-26-2021 12:11-0400 Respiratory rate 18 /min Dr. Benny Bosch Work Phone: [facility] Work Phone: 09-26-2021 12:11-0400 SaO2% (BldA) [Mass fraction] 98 % Dr. Benny Bosch Work Phone: [facility] Work Phone: 09-26-2021 12:11-0400 Systolic blood pressure 154 mm[Hg] Dr. Benny Bosch Work Phone: [facility] Work Phone: Encounters Encounter Date Encounter Type Care Provider Facility Start: 11-06-2024 End: 11-06-[address] Cong Morrison MD -[facility] Work Phone: Start: 11-06-2024 End: 11-06-[address] Benny Bosch MD Work Phone: [facility] Work Phone: Start: 10-30-2024 End: 10-30-[address] Benny Bosch MD Work Phone: [facility] Work Phone: Start: 10-30-2024 End: 10-30-[address] Leora Villa MD -Laboratory [place] Work Phone: Start: 10-30-2024 End: 10-30-2024 ambulatory Benny Bosch Facility:[facility] Start: 10-07-2024 End: 10-07-[address] Benny Bosch MD Work Phone: [facility] Work Phone: Start: 10-07-2024 End: 10-07-[address] Marshal Park DO -[facility]patient [facility] Work Phone: Start: 10-07-2024 End: 10-07-2024 ambulatory Marshal Park Facility:[facility] Start: 09-02-2024 End: 09-02-[address] Benny Bosch MD Work Phone: [facility] Work Phone: Start: 09-02-2024 End: 09-02-[address] 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 Benny Bosch MD Work Phone: [facility] Work Phone: Start: 07-25-2024 End: 07-25-[address] Leora Villa MD -Laboratory, [place] Work Phone: Start: 07-25-2024 End: 07-25-2024 ambulatory Benny Bosch Facility:[facility] Start: 06-17-2024 End: 06-17-2024 Patient encounter procedure Lindsay BHATT -[facility] Work Phone: Start: 06-17-2024 End: 06-17-2024 ambulatory Benny Bosch Facility[place] Start: 06-03-2024 Non-patient / Non-visit Prem Sanchez DO [facility] Start: 06-03-2024 End: 06-03-2024 Admission to same day surgery center Prem Sanchez DO -Endoscopy Work Phone: Start: 06-03-2024 End: 06-03-2024 ambulatory Prem Sanchez Facility:[facility] Start: 05-26-2024 End: 05-26-[address] Bee Roldan MD -Laboratory, [place] Work Phone: Start: 05-26-2024 End: 05-26-2024 ambulatory [facility]an [facility] [facility] Start: 05-23-2024 Non-patient / Non-visit Prem Sanchez DO -[facility] Start: 05-23-2024 End: 05-23-2024 Admission to same day surgery center Prem Sanchez DO -Endoscopy Work Phone: Start: 05-23-2024 End: 05-23-2024 ambulatory Prem Sanchez Facility:[facility] Start: 05-22-2024 End: 05-22-[address] Benny Bosch MD -Nuclear Medicine, [facility] Work Phone: Start: 05-22-2024 End: 05-22-2024 ambulatory Benny Bosch Facility:[facility] Start: 05-13-2024 End: 05-13-[address] Cong Morrison MD -[facility] Work Phone: Start: 05-13-2024 End: 05-13-2024 ambulatory Cong Morrison Facility:[facility] Start: 05-02-2024 End: 05-02-2024 Patient encounter procedure Lindsay BHATT -[facility] Work Phone: Start: 05-02-2024 End: 05-02-2024 ambulatory Benny Bosch [facility] Start: 04-24-2024 End: 04-24-2024 Emergency department patient visit Dr. Hector Manzano DO -Emergency Department Work Phone: Start: 04-02-2024 End: 04-02-2024 ambulatory Benny Bosch [facility] [place] Start: 04-02-2024 End: 04-02-2024 ambulatory Benny Bosch Facility:[facility] Start: 03-30-2024 End: 03-30-2024 Emergency department patient visit Miriam Leon Facility:[facility] Start: 03-27-2024 End: 03-27-2024 ambulatory Benny Bosch Facility:[facility] Start: 03-03-2024 End: 03-03-2024 Patient encounter procedure Treatment Rm 14 Rafiq [facility] Work Phone: Hematology/Oncology Start: 03-03-2024 End: 03-03-2024 ambulatory Danay Griffin Work Phone: Hematology/Oncology Comment on above: 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, estrogen receptor positive (HCC) (Primary Dx) Start: 02-27-2024 End: 02-27-2024 ambulatory BENNY BOSCH Facility:[facility] Start: 02-27-2024 End: 02-27-2024 Patient encounter procedure Alex Danielle PA-C Work Phone: [facility] Comment on above: 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, estrogen receptor positive (HCC) (Primary Dx); At risk for lymphedema Start: 02-21-2024 End: 02-21-2024 [facility] Start: 01-28-2024 End: 01-28-2024 ambulatory [facility] Facility:[facility] Start: 01-28-2024 End: 01-28-2024 Patient encounter procedure Marshal Park MD Work Phone: OB/Gynecology Comment on above: Encounter for gyneco logical examination (general) (routine) without abnormal findings (Primary Dx); Encounter for screening mammogram for breast cancer Start: 01-28-2024 End: 01-28-2024 Patient encounter status Marshal Park MD Work Phone: [facility] Start: 01-04-2024 End: 01-04-2024 ambulatory Leora Villa Facility:[facility] Start: 12-19-2023 Refill Susan hernandez ENVIRONMENTAL SYSTEMS COORDINATOR.LUMPIA WRAPPER MAKER Work Phone: Hematology/Oncology Comment on above: Refill Request Start: 12-11-2023 End: 12-11-2023 Patient encounter procedure Susan Wilkinson APRN.CNP Work Phone: Hematology/Oncology Start: 12-11-2023 End: 12-11-2023 ambulatory Susan Wilkinson ENVIRONMENTAL SYSTEMS COORDINATOR.LUMPIA WRAPPER MAKER Work Phone: Hematology/Oncology Comment on above: 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, estrogen receptor positive (HCC) (Primary Dx) Start: 2023 Documentation procedure Mammography Coordinator [facility] Department Start: 2023 Letter encounter Mammography Coordinator [facility] Start: 11-26-2023 End: 11-26-2023 ambulatory [facility] Art BOSCH Facility:[facility] Start: 11-26-2023 End: 11-26-2023 Subsequent hospital visit by physician Screen Mammo [facility] Mammogram Comment on above: Breast cancer screen ing, high risk patient [Z12.39] Start: 11-20-2023 End: 11-20-2023 ambulatory Benny Bosch Facility:[facility] Start: 11-07-2023 Telephone encounter Susan calderon APRN.CNP Work Phone: Hematology/Oncology Comment on above: Electronic Communica tion Start: 09-18-2023 End: 09-18-2023 ambulatory Treatment Rm 13 Rafiq [facility] Work Phone: Hematology/Oncology Comment on above: 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 Benny Bosch Work Phone: [facility] Work Phone: Start: 08-23-2023 End: 08-23-[address] 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 Benny Bosch Work Phone: [facility] Work Phone: Start: 08-08-2023 End: 08-08-[address] 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 Benny Bosch Work Phone: [facility] Work Phone: Start: 08-01-2023 End: 08-01-[address] Benny Bosch Work Phone: [facility] Work Phone: Start: 06-28-2023 End: 06-28-[address] Benny Bosch Work Phone: [facility] Work Phone: Start: 06-28-2023 End: 06-28-[address] Benny Bosch Work Phone: [facility], Specimen Work Phone: Start: 06-28-2023 End: 06-28-[address] Benny Bosch Work Phone: [facility] Work Phone: Start: 06-21-2023 Telephone encounter Susan Choudhury yumiko ENVIRONMENTAL SYSTEMS COORDINATOR.LUMPIA WRAPPER MAKER Work Phone: Hematology/Oncology Comment on above: Medication Problem; Return Call Request Start: 06-21-2023 End: 06-21-[address] Benny Bosch Work Phone: [facility] Neurology Work Phone: Start: 05-21-2023 End: 05-21-[address] Benny Bosch Work Phone: [facility] Neurology Work Phone: Start: 05-21-2023 End: 05-21-[address] Benny Bosch Work Phone: [facility] Work Phone: Start: 05-21-2023 End: 05-21-[address] [facility] Work Phone: Start: 05-19-2023 End: 05-19-[address] Benny Bosch Work Phone: [facility] Work Phone: Start: 05-15-2023 End: 05-15-[address] Benny Bosch Work Phone: [facility] Work Phone: Start: 05-15-2023 End: 05-15-[address] 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, estrogen receptor positive (HCC) (Primary Dx) [employer] Start: 04-20-2023 Chart abstracting Karen Briones RN Hematology/Oncology Comment on above: Research ([id number] Consent) Start: 04-20-2023 E-mail encounter fro m caregiver Susan Wilkinson ENVIRONMENTAL SYSTEMS COORDINATOR.LUMPIA WRAPPER MAKER Work Phone: [facility] Start: 04-20-2023 End: 04-20-2023 Patient encounter procedure Susan Wilkinson ENVIRONMENTAL SYSTEMS COORDINATOR.LUMPIA WRAPPER MAKER Work Phone: [facility] Start: 04-17-2023 End: 04-17-[address] 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, estrogen receptor positive (HCC) (Primary Dx) Start: 03-30-2023 Patient encounter procedure Joy Barry MD, MD Work Phone: [facility] Start: 03-30-2023 Radiation Oncology Note Joy Barry MD Work Phone: Radiation Oncology Comment on above: Completion Note Start: 03-27-2023 End: 03-27-2023 Patient encounter procedure Joy Barry MD Work Phone: Radiation Oncology Comment on above: 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, estrogen receptor positive (HCC) (Primary Dx) Start: 02-27-2023 End: 02-27-[address] Work Phone: [facility] Start: 02-27-2023 End: 02-27-2023 Nutrition therapy Brittany Olvera RD Work Phone: Nutrition Therapy Comment on above: Nutrition Assessment Start: 02-27-2023 End: 02-27-2023 Patient encounter procedure Joy Barry MD Work Phone: Radiation Oncology Comment on above: 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, estrogen receptor positive (HCC) (Primary Dx) Start: 02-22-2023 End: 02-22-2023 Patient encounter procedure Joy Barry MD, MD Work Phone: [facility] Start: 02-22-2023 Radiation Oncology Note Joy Barry MD Work Phone: Radiation Oncology Comment on above: Simulation Note Treatment Planning Start: 02-22-2023 End: 02-22-2023 Nursing evaluation of patient and report Nurse Radt [facility] Work Phone: Radiation Oncology Comment on above: 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, estrogen receptor positive (HCC) (Primary Dx) Start: 02-21-2023 Orders Only Joy Barry MD Work Phone: Radiation Oncology Comment on above: 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, estrogen receptor positive (HCC) (Primary Dx) Start: 02-09-2023 End: 02-09-2023 [facility] Start: 02-02-2023 End: 02-02-2023 ambulatory Bobby Chowdhury DO Work Phone: Hematology/Oncology Comment on above: 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, estrogen receptor positive (HCC) (Primary Dx) Start: 02-02-2023 End: 02-02-2023 Patient encounter procedure Bobby Chowdhury DO Work Phone: [facility] Comment on above: 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, estrogen receptor positive (HCC) (Primary Dx) Start: 01-26-2023 End: 01-26-2023 Patient encounter procedure Alex Danielle PA-C Work Phone: General Surgery Comment on above: 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, estrogen receptor positive (HCC) (Primary Dx) Start: 01-26-2023 End: 01-26-2023 [facility] Start: 01-25-2023 Telephone encounter Micki Parkinson DO Work Phone: General Surgery Comment on above: Opened In Error Start: 01-19-2023 End: 01-19-2023 ambulatory [facility] Facility:[facility] Start: 01-19-2023 End: 01-19-2023 Patient encounter procedure Alex Danielle PA-C Work Phone: General Surgery Comment on above: 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, estrogen receptor positive (HCC) (Primary Dx) Start: 01-17-2023 Orders Only Micki mills DO Work Phone: [facility] Comment on above: 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, estrogen receptor positive (HCC) (Primary Dx) Start: 01-11-2023 Telephone encounter Keila Sunshine RN Work Phone: General Surgery Comment on above: Post Op Call Start: 01-10-2023 ambulatory Radha Bowers RN G eneral Surgery Comment on above: Education Of Patient /family Start: 01-10-2023 Telephone encounter Bobby peng DO Work Phone: Hematology/Oncology Comment on above: Appointment Start: 01-09-2023 End: 01-10-2023 ambulatory Radha Bowers RN General Surgery Comment on above: Education Of Patient /family Start: 01-09-2023 End: 01-09-2023 Subsequent hospital visit by physician [facility] Work Phone: [facility] Comment on above: 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, estrogen receptor positive (HCC) [C50.211, Z17.0] Start: 01-08-2023 ambulatory Brandy colin LPN Work Phone: [facility] Comment on above: drain care Patient Education (R IGHT simple mastectomy, RIGHT sentinel lymph node mapping and biopsy ) Start: 01-08-2023 E-mail encounter karly m caregiver Brandy Morales LPN Work Phone: [facility] Start: 01-05-2023 End: 01-05-2023 Admission to [facility] 2 Work Phone: [facility] Start: 01-05-2023 End: 01-05-2023 ambulatory [facility] 2 Work Phone: Pre Anesthesia Comment on above: Pre-op evaluation (P rimary Dx); Essential hypertension, benign; Pure hypercholesterolemia; Unspecified hypothyroidism; Type 2 diabetes mellitus without complication, with long-term current use of insulin (HCC); LBBB (left bundle branch block) Start: 01-05-2023 End: 01-05-2023 Preprocedural examination done [facility] 2 Work Phone: [facility] Work Phone: Start: 01-05-2023 Telephone encounter Taqueria Gracia RN General Surgery Start: 01-03-2023 End: 01-03-2023 Patient encounter procedure Alex Danielle PA-C Work Phone: [facility] Comment on above: 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, estrogen receptor positive (HCC) (Primary Dx) Start: 12-26-2022 ambulatory Micki mills DO Work Phone: [facility] Start: 12-26-2022 Telephone encounter lAex kendall PA-C Work Phone: [facility] Comment on above: Central Office Operator Supervisor - O ther Appointment Start: 12-22-2022 End: 12-22-2022 ambulatory SAMUEL DINH Facility:[facility] Start: 12-22-2022 End: 12-22-2022 ambulatory MICKI PARKINSON Facility:[facility] Start: 12-22-2022 End: 12-22-2022 Patient encounter procedure Micki Parkinson DO Work Phone: General Surgery Comment on above: 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, estrogen receptor positive (HCC) (Primary Dx) Start: 12-22-2022 End: 12-22-2022 Subsequent hospital visit by physician Diagnostic Mammo [facility] Stro Mammography Start: 12-20-2022 Telephone encounter Brandy hinson LPN Work Phone: [facility] Comment on above: Appointment Start: 12-15-2022 Orders Only Brandy colin LPN Work Phone: [facility] Comment on above: Malignant neoplasm o f female breast, unspecified estrogen receptor status, unspecified laterality, unspecified site of breast (HCC) (Primary Dx) Start: 12-13-2022 Orders Only Brandy colin LPN Work Phone: [facility] Comment on above: Central Office Operator Supervisor - O ther Start: 12-05-2022 End: 12-05-[address] Benny Bosch Work Phone: [facility] Work Phone: Start: 12-05-2022 End: 12-05-[address] Benny Bosch Work Phone: [facility] Neurology Work Phone: Start: 12-04-2022 End: 12-04-[address] Benny Bosch Work Phone: [facility] Neurology Work Phone: Start: 12-04-2022 End: 12-04-[address] Benny Bosch Work Phone: [facility] Work Phone: Start: 11-29-2022 End: 11-29-[address] Benny Bosch Work Phone: [facility] Work Phone: Start: 11-29-2022 End: 11-29-[address] Benny Bosch Work Phone: [facility] Work Phone: Start: [address] Benny Bosch Work Phone: [facility] Oncology Start: 2022 End: [address] Benny Bosch Work Phone: [facility] Work Phone: Start: 11-23-2022 End: 11-23-[address] Benny Bosch Work Phone: [facility] Work Phone: Start: 11-15-2022 End: 11-15-[address] Benny Bosch Work Phone: [facility] Work Phone: Start: 11-15-2022 End: 11-15-[address] [facility] Work Phone: Start: 11-15-2022 End: 11-15-[address] Benny Bosch Work Phone: [facility] Work Phone: Start: 11-10-2022 End: 11-10-[address] Benny Bosch Work Phone: [facility] Work Phone: Start: 11-10-2022 End: 11-10-[address] Benny Bosch Work Phone: [facility]-Outpatient Breast Imaging Work Phone: Start: 10-30-2022 End: 10-30-[address] Benny Bosch Work Phone: [facility] Work Phone: Start: 10-30-2022 End: 10-30-[address] Benny Bosch Work Phone: [facility] Start: 09-18-2022 End: 09-18-[address] Benny Bosch Work Phone: [facility] Work Phone: Start: 09-18-2022 End: 09-18-[address] Benny Bosch Work Phone: [facility]-Laboratory, Specimen Start: 09-17-2022 End: 09-17-[address] Benny Bosch Work Phone: [facility] Start: 08-17-2022 End: 08-17-2022 Emergency department patient visit Dr. Benny Bosch Work Phone: [facility]-Emergency Department Start: 08-01-2022 End: 08-01-2022 ambulatory [facility] Work Phone: Start: 08-01-2022 End: 08-01-2022 [facility] Start: 07-25-2022 End: 07-25-[address] Benny Bosch Work Phone: [facility] Work Phone: Start: 07-25-2022 End: 07-25-[address] Benny Bosch Work Phone: [facility] Start: 07-05-2022 End: 07-05-[address] Benny Bosch Work Phone: [facility] Work Phone: Start: 07-05-2022 End: 07-05-[address] Benny Bosch Work Phone: [facility] Start: 06-28-2022 End: 06-28-[address] Benny Bosch Work Phone: [facility] Work Phone: Start: 06-28-2022 End: 06-28-[address] Benny Bosch Work Phone: [facility] Start: 06-06-2022 End: 06-06-[address] Benny Bosch Work Phone: [facility] Start: 05-17-2022 End: 05-17-[address] Benny Bosch Work Phone: [facility] Work Phone: Start: 05-17-2022 End: 05-17-[address] Benny Bosch Work Phone: [facility] Start: 04-17-2022 End: 04-17-[address] Benny Bosch Work Phone: [facility] Work Phone: Start: 04-17-2022 End: 04-17-[address] Benny Bosch Work Phone: [facility]-Laboratory, Specimen Start: 04-11-2022 End: 04-11-[address] Benny Bosch Work Phone: [facility] Work Phone: Start: 04-11-2022 End: 04-11-[address] Benny Bosch Work Phone: [facility] Start: 04-07-2022 End: 04-07-[address] Benny Bosch Work Phone: [facility] Start: 03-16-2022 End: 03-16-2022 Admission to same day surgery center [facility]-Surgical Day Care Start: 03-16-2022 End: 03-16-2022 ambulatory [facility] Work Phone: Start: 03-09-2022 End: 03-16-2022 Non-patient / Non-visit Dr. Benny Bosch Work Phone: [facility] Start: 02-18-2022 End: 02-18-2022 Patient encounter procedure [facility] Start: 12-21-2021 End: 12-21-[address] Benny Bosch Work Phone: [facility]-Outpatient Bone Densitometry Start: 12-09-2021 End: 12-09-[address] Benny Bosch Work Phone: [facility] Start: 11-02-2021 End: 11-02-[address] Benny Bosch Work Phone: [facility] Start: 10-05-2021 End: 10-05-[address] Benny Bosch Work Phone: [facility] Start: 09-26-2021 End: 09-26-[address] Benny Bosch Work Phone: [facility] Start: 08-19-2013 End: 08-19-2013 Refill Simba Jenifer Aarti Work Phone: Dermatology Comment on above: Refill Request Procedures Date Procedure Procedure Detail Performing Clinician Start: 10-30-2024 Urine microalbumin/creatinine ratio measurement Dr. Benny Bosch MD Work Phone: Start: 10-30-2024 Vitamin D, 25-hydrox y measurement Dr. Benny Bosch MD Work Phone: Comment on above: Vitamin D StatusDefi ciency: <20 ng/mL (50nmol/L)Insufficiency: 20-30 ng/mL (50-75 nmol/L)Sufficiency: 30-100 ng/mL (75-250 nmol/L)Toxicity: >100 ng/mL (>250 nmol/L) Start: 10-07-2024 Screening mammograph y of left breast Dr. Benny Bosch MD Work Phone: Start: 09-02-2024 Plain X-ray of shoulder Dr. Benny Bosch MD Work Phone: Start: 05-26-[address] Benny Bosch MD Work Phone: Start: 05-22-2024 Radionuclide gastric emptying study Dr. Benny Bosch MD Work Phone: Start: 04-24-2024 X-ray of chest, PA a nd lateral views Dr. Benny Bosch MD Work Phone: Start: 06-28-[address] Benny Bosch Work Phone: Start: 05-21-[address] Benny Bosch Work Phone: Start: 02-22-[address] Benny Bosch Work Phone: Start: 01-05-2023 Ecg routine ecg w/le ast 12 lds i&r only Malia Acosta ENVIRONMENTAL SYSTEMS COORDINATOR.LUMPIA WRAPPER MAKER Work Phone: Start: 12-22-2022 Us breast uni real t asnti with image limited Micki Parkinson DO Work Phone: Start: 12-22-2022 Digital breast tomos ynthesis unilateral Mickiag Parkinson DO Work Phone: Start: 12-04-2022 Radionuclide whole b ang bone study Dr. Benny Bosch Work Phone: Start: 11-29-2022 CT of chest and abdomen Dr. Benny Bosch Work Phone: Start: 11-29-[address] Benny Bosch Work Phone: Start: 11-10-2022 Bilateral mammography Desirae Bosch Work Phone: Start: 11-10-[address] Benny Bosch Work Phone: Start: 09-17-[address] Benny Bosch Work Phone: Start: 08-17-2022 Computed tomography of abdomen and pelvis with contrast Dr. Benny Bosch Work Phone: Start: 08-17-2022 CT of head without contrast Dr. Benny Bosch Work Phone: Start: 07-05-2022 Plain X-ray of toe Dr. Benny Bosch Work Phone: Start: 03-16-2022 Open reduction of fr acture of radius with internal fixation Start: 03-16-2022 Fluoroscopic guidance Start: 03-16-2022 Plain x-ray of wrist Dr Rosaura Bosch Work Phone: Start: 03-09-2022 Plain chest X-ray Start: 02-18-2022 CT of upper limb wit hout contrast Start: 12-21-2021 Dual energy X-ray absorptiometry Dr. Benny Bosch Work Phone: Start: 11-02-2021 Plain x-ray of wrist Dr Rosaura Bosch Work Phone: Start: 10-05-2021 Radiography of thora cic spine Dr. Benny Bosch Work Phone: Start: 10-05-2021 X-ray of cervical spine Dr. Benny Bosch Work Phone: Start: 09-26-2021 Plain chest X-ray Dr. Stephanie Bosch Work Phone: Start: 09-26-2021 X-ray of lumbosacral spine Dr. Benny Bosch Work Phone: Start: 04-21-2011 Mammography Simba Urias fn Work Phone: Bacteria identified in Urine by Culture Dr. Benny Bosch Work Phone: Urine culture Dr. Benny mackay Work Phone: Urine culture Dr. Benny mackay Work Phone: Urine culture Dr. Benny mackay Work Phone: Plan of Treatment Date Care Activity Detail Author Start: 02-02-2025 End: 02-02-2025 ambulatory [facility] Comment on above: BMP(S)* OV/LAB&TREATMENT TOD AY* 2nd Start: 08-18-2024 End: 08-18-2024 ambulatory [facility] Comment on above: BMP(S)* 2nd OV Start: 08-02-2024 Covid-19 Vaccine ( season) Covid-19 Vaccine ( season) [facility] Start: 06-03-2024 Colonoscopy w/biopsy single/multiple COLONOSCOPY AND BIOPSY [facility] Start: 06-03-2024 Patient discharge [facility] Start: 05-23-2024 Egd transoral biopsy single/multiple EGD BIOPSY SINGLE/MULTIPLE [facility] Start: 05-23-2024 Patient discharge [facility] Start: 05-14-2024 Advance Directive Discussion Advance Directive Discussion [facility] Start: 04-24-2024 [facility] Start: 04-24-2024 End: 04-24-2024 [facility] Start: 03-20-2024 BP Controlled (<130/80) BP Con trolled (<130/80) [facility] Start: 03-04-2024 End: 03-04-2024 ambulatory Hematology/Oncology Comment on above: Q6MO ZOMETA/MDCR* 3 Mo OV 2nd Start: 03-03-2024 End: 03-03-2024 ambulatory [facility] Comment on above: BMP(S)* 3 MO OV/LAB EARLY/ZO META TODAY* WILKINSON 2nd Start: 02-20-2024 End: 02-20-2024 Patient encounter procedure 02/20/2024 9:00 AM EDT Office Visit [facility] [id number] [place] [id number] Alex Danielle PA-C [address] [place] [address] 6 mo follow up [facility] Comment on above: 6 mo follow up Start: 02-08-2024 BP Controlled (<130/80) BP Con trolled (<130/80) [facility] Start: 01-28-2024 End: 01-28-2024 Patient encounter procedure 01/28/2024 9:40 AM EDT Office Visit OB/Gynecology [address] [place] [address] Marshal Park MD [address] [facility] [place] [address] Annual OB/Gynecology Comment on above: Annual Start: 01-13-2024 Covid-19 Vaccine ( season) Covid-19 Vaccine ( season) [facility] Start: 01-13-2024 Influenza vaccination Influenza Vacc ine (#1) [facility] Start: 12-11-2023 End: 12-11-2023 ambulatory 12/11/2023 10:00 AM EDT Visit (SP) Office Hematology/Oncology [address] [place] [address] Susan Wilkinson APRN.LUMPIA WRAPPER MAKER [address] [place], [place] [id number] 4MO OV* Hematology/Oncology Comment on above: 4MO OV* Start: 11-26-2023 End: 11-26-2023 Patient encounter procedure 11/26/2023 11:10 AM EDT Appointment Mammogram [address] [place] [address] Breast cancer screening, high risk patient [Z12.39]; Encounter for screening mammogram for malignant neoplasm of breast [Z12.31]- Location per Pt Mammogram Comment on above: Breast cancer screen ing, high risk patient [Z12.39]; Encounter for screening mammogram for malignant neoplasm of breast [Z12.31]- Location per Pt Start: 07-12-2023 Covid-19 Vaccine () Covid-19 Vaccine () [facility] Start: 07-08-2023 Hemoglobin A1c measurement HbA1C [facility] Start: 07-08-2023 Hemoglobin A1c/Hemoglobin.total in Blood HBA1C [facility] Start: 07-07-2023 Shingrix Vaccine (2 of 2) Brown grix Vaccine (2 of 2) [facility] Start: 05-14-2023 Advance Directive Discussion Advance Directive Discussion [facility] Start: 04-02-2023 End: 07-02-2023 Basic metabolic 2000 panel - Serum or Plasma BASIC METABOLIC PNL Lab STAT Malignant neoplasm of upper-inner quadrant of right breast in female, estrogen receptor positive (HCC) Expected: 04/02/2023, Expires: 07/02/2023 [facility] Work Phone: Comment on above: Expected: 04/02/2023 , Expires: 07/02/2023 Start: 01-12-2023 Covid-19 Vaccine () Covid-19 Vaccine () [facility] Start: 01-12-2023 Influenza vaccination C [facility] Start: 12-04-2022 NM Whole body Bone Views [facility] Start: 12-04-2022 Radionuclide whole b ang bone study Bone Scan Whole Body [facility] Start: 10-30-2022 Thiamine measurement [facility] Start: 10-30-2022 Vitamin B6 measurement [facility] Start: 06-14-2022 COVID-19 VACCINE (6 - Moderna series) COVID-19 VACCINE (6 - Moderna series) [facility] Start: 05-17-2022 Procedure [facility] Start: 05-14-2022 ADVANCE DIRECTIVE DISCUSSION ADVANCE DIRECTIVE DISCUSSION [facility] Start: 05-14-2022 DEPRESSION ASSESSMENT DEPRESSION ASS ESSMENT [facility] Start: 03-16-2022 Anes arthrs/endscpy dstl radius ulna/wrist/hand ANESTH LOWER ARM SURGERY [facility] Start: 03-16-2022 Injection aa&/strd axillary nerve [facility] Start: 03-16-2022 Rpr nonunion/malunio n radius/ulna w/autograft REPAIR/GRAFT RADIUS OR ULNA [facility] Start: 03-16-2022 Application of ice collar, cap or bag [facility] Start: 03-16-2022 Catheterization of vein [facility] Start: 03-16-2022 Elevation of affecte d extremity [facility] Start: 03-16-2022 Following clinical pathway protocol [facility] Start: 03-16-2022 Patient discharge [facility] Start: 03-16-2022 Procedure discontinued [facility] Start: 03-16-2022 Taking patient vital signs [facility] Start: 03-16-2022 Vital signs measurements [facility] Start: 03-16-2022 [facility] Start: 03-16-2022 Plain x-ray of wrist Wrist 2 Views W [facility] Work Phone: Start: 03-16-2022 XR Wrist 2 Views [facility] Work Phone: Start: 03-16-2022 Medication education [facility] Start: 11-02-2021 Patient referral [facility] Work Phone: Start: 01-12-2021 Influenza vaccination INFLUENZ A (Season Ended) [facility] Start: 07-27-2015 PNEUMOVAX AGE 65 AND OVER WITH 5YR LOOKBACK (#1) PNEUMOVAX AGE 65 AND OVER WITH 5YR LOOKBACK (#1) [facility] Start: 04-21-2012 Mammography MAMMOGRAM [facility] Start: 07-27-2011 Pneumococcal Vaccine : 50+ (2 of 2 - PCV) Pneumococcal Vaccine: 50+ (2 of 2 - PCV) [facility] Start: 07-27-2011 Pneumococcal Vaccine : 65+ (2 - PCV) Pneumococcal Vaccine: 65+ (2 - PCV) [facility] Start: 07-27-2011 Pneumococcal Vaccine : 65+ (2 of 2 - PCV) Pneumococcal Vaccine: 65+ (2 of 2 - PCV) [facility] Start: 07-27-2011 PNEUMOCOCCAL: 65+ (2 - PCV) PNEUMOCOCCAL: 65+ (2 - PCV) [facility] Start: 2010 ADVANCE DIRECTIVE DISCUSSION ADVANCE DIRECTIVE DISCUSSION [facility] Start: 2005 Hepatitis B Vaccine (1 of 3 - Risk 3-dose series) Hepatitis B Vaccine (1 of 3 - Risk 3-dose series) [facility] Start: 2005 RSV Vaccine (1 - 1-d ose 60+ series) RSV Vaccine (1 - 1-dose 60+ series) [facility] Start: 11-28-1995 Screening for malign ant neoplasm of colon [facility] Start: 11-28-1995 SHINGRIX VACCINE (1 of 2) BROWN GRIX VACCINE (1 of 2) [facility] Start: 1990 DIABETES SCREEN DIABETES SCREEN [facility] Start: 1990 LIPID SCREEN LIPID SCREEN [facility] Start: 1964 Urine microalbumin profile [facility] Start: 11-28-1963 ANNUAL PCP TEAM PSYCHIATRIC TECH KARL DISEASE VISIT ANNUAL PCP TEAM CHRONIC DISEASE VISIT [facility] Start: 11-28-1963 Anxiety Screening Anxiety Screening [facility] Start: 11-28-1963 BP CONTROLLED (<130/80) BP CON TROLLED (<130/80) [facility] Start: 11-28-1963 Hepatitis B surface antibody level LDL CHOLESTEROL [facility] Start: 11-28-1963 HEPATITIS C SCREENING HEPATITIS [facility] Start: 11-28-1963 Hepatitis C screening Hepatitis C [facility] Start: 1957 Adult depression screening assessment DEPRESSION SCREENING [facility] Start: 11-28-1955 3 comp foot exam completed DIABETIC FOOT EXAM [facility] Start: 11-28-1955 Diabetic foot examination Diabetic F oot Exam [facility] Start: 11-28-1955 Glaucoma screening Dilated Retinal E xam [facility] Start: 11-28-1955 Hepatitis B screening URINE ALBUMIN:CREATININE RATIO [facility] Start: 11-28-1955 Hepatitis C antibody , confirmatory test DILATED RETINAL EXAM [facility] Start: 1950 Hemoglobin A1c/Hemoglobin.total in Blood HBA1C [facility] Start: 05-30-1946 COVID-19 VACCINE (#1) COVID-19 VACCI NE (#1) [facility] Bx/exc lymph node op en deep axillary node BX/REMV,LYMPH NODE,DEEP AXILL Procedures Routine Malignant neoplasm of upper-inner quadrant of right breast in female, estrogen receptor positive (HCC) Ordered: 12/26/2022 [facility] Work Phone: Comment on above: Ordered: 12/26/2022 CT SIM PLANNING RADI ATION ONCOLOGY CT SIM PLANNING RADIATION ONCOLOGY Radiology Routine Malignant neoplasm of upper-inner quadrant of right breast in female, estrogen receptor positive (HCC) Ordered: 02/22/2023 [facility] Work Phone: Comment on above: Ordered: 02/22/2023 DBT Breast - bilater al screening EVAN SCREENING W JOVAN Radiology Routine Breast cancer screening, high risk patient Encounter for screening mammogram for malignant neoplasm of breast 11/26/2023 11:24 AM EDT [facility] Work Phone: End: 02-26-2025 DBT Breast - bilateral screening EVAN SCREENING W JOVAN Radiology Routine Encounter for screening mammogram for breast cancer 1 Occurrences starting 01/28/2024 until 02/26/2025 [facility] Work Phone: Comment on above: 1 Occurrences starti ng 01/28/2024 until 02/26/2025 End: 09-15-2024 DBT Breast - bilateral screening EVAN SCREENING W JOVAN Radiology Routine Breast cancer screening, high risk patient Encounter for screening mammogram for malignant neoplasm of breast 1 Occurrences starting 08/17/2023 until 09/15/2024 [facility] Work Phone: Comment on above: 1 Occurrences starti ng 08/17/2023 until 09/15/2024 H&P for surgery H&P FOR SURGERY Procedures Routine Malignant neoplasm of upper-inner quadrant of right breast in female, estrogen receptor positive (HCC) Ordered: 12/26/2022 [facility] Work Phone: Comment on above: Ordered: 12/26/2022 Inj radioactive trac er for id of sentinel node IDENTIFY SENTINEL NODE Procedures Routine Malignant neoplasm of upper-inner quadrant of right breast in female, estrogen receptor positive (HCC) Ordered: 12/26/2022 [facility] Work Phone: Comment on above: Ordered: 12/26/2022 Mastectomy simple complete MASTECTOMY, SIMPLE, COMPLETE Procedures Routine Malignant neoplasm of upper-inner quadrant of right breast in female, estrogen receptor positive (HCC) Ordered: 12/26/2022 [facility] Work Phone: Comment on above: Ordered: 12/26/2022 End: 01-27-2024 NM INJ SENTINEL NODE BREAST RIGHT NM INJ SENTINEL NODE BREAST RIGHT Radiology Routine Malignant neoplasm of upper-inner quadrant of right breast in female, estrogen receptor positive (HCC) 1 Occurrences starting 12/26/2022 until 01/27/2024 [facility] Work Phone: Comment on above: 1 Occurrences starti ng 12/26/2022 until 01/27/2024 NM INJ SENTINEL NODE BREAST RIGHT NM INJ SENTINEL NODE BREAST RIGHT Radiology Routine Malignant neoplasm of upper-inner quadrant of right breast in female, estrogen receptor positive (HCC) 01/09/2023 3:01 PM EDT [facility] Work Phone: OUTSIDE SURG PATH SL JL REVIEW OUTSIDE SURG PATH SLIDE REVIEW Lab Routine Ordered: 12/13/2022 [facility] Work Phone: Comment on above: Ordered: 12/13/2022 Patient Education [facility] Work Phone: Patient referral [facility] Work Phone: PT education noc individ PT EDUC ATION NOC INDIVID Procedures Routine Malignant neoplasm of upper-inner quadrant of right breast in female, estrogen receptor positive (HCC) Ordered: 12/26/2022 [facility] Work Phone: Comment on above: Ordered: 12/26/2022 Serum immunofixation [facility] Urinalysis complete panel - Urine [facility] Urinalysis complete panel - Urine [facility] Urine immunofixation [facility] Immunizations Immunization Date Immunization Notes Care Provider Fa [facility] 03-11-2023 influenza virus vacc ine, unspecified formulation Screen Wstr [facility] 02-11-2022 influenza virus vacc ine, unspecified formulation Micki Parkinson DO Work Phone: [facility] 07-26-2010 pneumococcal polysaccharide vaccine, 23 valent Simba Broussard Work Phone: [facility] Payers Date Payer Category Payer Self-pay [id number] 2018 [facility] [place] DICARE SUPPLEMENT [id number] 2018 Unknown JOANNE [place] DICARE SUPPLEMENT [id number] 2018-Present [phone] [address] [place] [address] Indemnity [id number] 2018 Unknown [id number] 2016 Unknown [id number] 2011 Unknown PRIMETIME PRIMET SANTI HMO POS [id number] 2011-Present HMO [id number] 2010 Medicare [id number] 2010 Medicare [id number] Unknown [id number] [id number]. 2.462 Unknown [id number] 2.16.840.1.148206.3.579. 2.462 Unknown [id number] 2.16.840.1.436485.3.579. 2.462 Unknown [id number] 2.16.840.1.373970.3.579. 2.462 Unknown [id number] 2.16.840.1.808733.3.579. 2.462 Unknown [id number] 2.16.840.1.148937.3.579. 2.462 Unknown [id number] 2.16.840.1.704965.3.579. 2.462 Unknown [id number] 2.16.840.1.440221.3.579. 2.462 Unknown [id number] 2.16.840.1.208352.3.579. 2.462 Unknown [id number] 2.16.840.1.672532.3.579. 2.462 Unknown [id number] 2.16.840.1.228585.3.579. 2.462 Unknown [id number] 2.16.840.1.293629.3.579. 2.462 Unknown [id number] 2.16.840.1.371547.3.579. 2.462 Unknown [id number] 2.16.840.1.134648.3.579. 2.462 Unknown [id number] 2.16.840.1.568990.3.579. 2.462 Unknown [id number] 2.16.840.1.765480.3.579. 2.462 Unknown [id number] 2.16.840.1.516606.3.579. 2.462 Unknown [id number] 2.16840.1.532668.3.579. 2.462 Unknown [id number] 2.16840.1.112375.3.579. 2.462 Unknown [id number] 2.16840.1.738501.3.579. 2.462 Unknown [id number] [id number]. 2.462 Unknown [id number] [id number]. 2.462 Social History Date Type Detail Facility Start: 06-06-2012 End: 05-30-2024 Tobacco smoking status NHIS Former smoker [facility] End: 05-14-1980 History of tobacco use Current smoker [facility] Start: 06-06-2012 End: 01-28-2024 Tobacco use and exposure Never used [facility] Start: 06-06-2012 End: 08-18-2024 Alcohol intake Current drinker of alcohol (finding) [facility] Start: 04-21-2011 Alcohol Comment one a Year [facility] Start: 1945 Sex Assigned At Not on file [facility] Start: 11-02-2021 End: 06-28-2023 Tobacco smoking status NHIS Unknown if ever smoked [facility] Start: 1945 Sex Assigned At Female [facility] End: 05-14-1980 History of tobacco use Cigarette Smoker [facility] Start: 12-28-2021 End: 12-22-2022 History of Social function [facility] Start: 12-28-2021 End: 12-22-2022 Tobacco use panel [facility] National Score (1-100), lower number is lower risk 62 [facility] Start: 08-03-2024 End: 09-08-2024 Sex Female (finding) [facility] NEGATED: Highlighted row [facility] NEGATED: Highlighted row Not [facility] Medical Equipment Procedure Code Equipment Code Equipment Origin al Text Equipment Identifier Dates ORIF, fracture, radius, distal 2.0 LCP PLATES FDA Start: 03-16-2022 ORIF, fracture, radius, distal 2.7 CORTEX SCREW FDA Start: 03-16-2022 ORIF, fracture, radius, distal 2.7 CORTEX SCREW FDA Start: 03-16-2022 ORIF, fracture, radius, distal 2.7 CORTEX SCREW FDA Start: 03-16-2022 ORIF, fracture, radius, distal 2.7 LCP PLATE FDA Start: 03-16-2022 ORIF, fracture, radius, distal 2.7 LOCKING SCREW FDA Start: 03-16-2022 ORIF, fracture, radius, distal 2.7MM CORTEX SCREW FDA Start: 03-16-2022 ORIF, fracture, radius, distal 2.0 LCP PLATES FDA Start: 03-16-2022 ORIF, fracture, radius, distal 2.7 CORTEX SCREW FDA Start: 03-16-2022 ORIF, fracture, radius, distal 2.7 CORTEX SCREW FDA Start: 03-16-2022 ORIF, fracture, radius, distal 2.7 CORTEX SCREW FDA Start: 03-16-2022 ORIF, fracture, radius, distal 2.7 LCP PLATE FDA Start: 03-16-2022 ORIF, fracture, radius, distal 2.7 LOCKING SCREW FDA Start: 03-16-2022 ORIF, fracture, radius, distal 2.7MM CORTEX SCREW FDA Start: 03-16-2022 ORIF, fracture, radius, distal 2.0 LCP PLATES FDA Start: 03-16-2022 ORIF, fracture, radius, distal 2.7 CORTEX SCREW FDA Start: 03-16-2022 ORIF, fracture, radius, distal 2.7 CORTEX SCREW FDA Start: 03-16-2022 ORIF, fracture, radius, distal 2.7 CORTEX SCREW FDA Start: 03-16-2022 ORIF, fracture, radius, distal 2.7 LCP PLATE FDA Start: 03-16-2022 ORIF, fracture, radius, distal 2.7 LOCKING SCREW FDA Start: 03-16-2022 ORIF, fracture, radius, distal 2.7MM CORTEX SCREW FDA Start: 03-16-2022 ORIF, fracture, radius, distal 2.0 LCP PLATES FDA Start: 03-16-2022 ORIF, fracture, radius, distal 2.7 CORTEX SCREW FDA Start: 03-16-2022 ORIF, fracture, radius, distal 2.7 CORTEX SCREW FDA Start: 03-16-2022 ORIF, fracture, radius, distal 2.7 CORTEX SCREW FDA Start: 03-16-2022 ORIF, fracture, radius, distal 2.7 LCP PLATE FDA Start: 03-16-2022 ORIF, fracture, radius, distal 2.7 LOCKING SCREW FDA Start: 03-16-2022 ORIF, fracture, radius, distal 2.7MM CORTEX SCREW FDA Start: 03-16-2022 ORIF, fracture, radius, distal 2.0 LCP PLATES FDA Start: 03-16-2022 ORIF, fracture, radius, distal 2.7 CORTEX SCREW FDA Start: 03-16-2022 ORIF, fracture, radius, distal 2.7 CORTEX SCREW FDA Start: 03-16-2022 ORIF, fracture, radius, distal 2.7 CORTEX SCREW FDA Start: 03-16-2022 ORIF, fracture, radius, distal 2.7 LCP PLATE FDA Start: 03-16-2022 ORIF, fracture, radius, distal 2.7 LOCKING SCREW FDA Start: 03-16-2022 ORIF, fracture, radius, distal 2.7MM CORTEX SCREW FDA Start: 03-16-2022 ORIF, fracture, radius, distal 2.0 LCP PLATES FDA Start: 03-16-2022 ORIF, fracture, radius, distal 2.7 CORTEX SCREW FDA Start: 03-16-2022 ORIF, fracture, radius, distal 2.7 CORTEX SCREW FDA Start: 03-16-2022 ORIF, fracture, radius, distal 2.7 CORTEX SCREW FDA Start: 03-16-2022 ORIF, fracture, radius, distal 2.7 LCP PLATE FDA Start: 03-16-2022 ORIF, fracture, radius, distal 2.7 LOCKING SCREW FDA Start: 03-16-2022 ORIF, fracture, radius, distal 2.7MM CORTEX SCREW FDA Start: 03-16-2022 ORIF, fracture, radius, distal 2.0 LCP PLATES FDA Start: 03-16-2022 ORIF, fracture, radius, distal 2.7 CORTEX SCREW FDA Start: 03-16-2022 ORIF, fracture, radius, distal 2.7 CORTEX SCREW FDA Start: 03-16-2022 ORIF, fracture, radius, distal 2.7 CORTEX SCREW FDA Start: 03-16-2022 ORIF, fracture, radius, distal 2.7 LCP PLATE FDA Start: 03-16-2022 ORIF, fracture, radius, distal 2.7 LOCKING SCREW FDA Start: 03-16-2022 ORIF, fracture, radius, distal 2.7MM CORTEX SCREW FDA Start: 03-16-2022 ORIF, fracture, radius, distal 2.0 LCP PLATES FDA Start: 03-16-2022 ORIF, fracture, radius, distal 2.7 CORTEX SCREW FDA Start: 03-16-2022 ORIF, fracture, radius, distal 2.7 CORTEX SCREW FDA Start: 03-16-2022 ORIF, fracture, radius, distal 2.7 CORTEX SCREW FDA Start: 03-16-2022 ORIF, fracture, radius, distal 2.7 LCP PLATE FDA Start: 03-16-2022 ORIF, fracture, radius, distal 2.7 LOCKING SCREW FDA Start: 03-16-2022 ORIF, fracture, radius, distal 2.7MM CORTEX SCREW FDA Start: 03-16-2022 ORIF, fracture, radius, distal 2.0 LCP PLATES FDA Start: 03-16-2022 ORIF, fracture, radius, distal 2.7 CORTEX SCREW FDA Start: 03-16-2022 ORIF, fracture, radius, distal 2.7 CORTEX SCREW FDA Start: 03-16-2022 ORIF, fracture, radius, distal 2.7 CORTEX SCREW FDA Start: 03-16-2022 ORIF, fracture, radius, distal 2.7 LCP PLATE FDA Start: 03-16-2022 ORIF, fracture, radius, distal 2.7 LOCKING SCREW FDA Start: 03-16-2022 ORIF, fracture, radius, distal 2.7MM CORTEX SCREW FDA Start: 03-16-2022 ORIF, fracture, radius, distal 2.0 LCP PLATES FDA Start: 03-16-2022 ORIF, fracture, radius, distal 2.7 CORTEX SCREW FDA Start: 03-16-2022 ORIF, fracture, radius, distal 2.7 CORTEX SCREW FDA Start: 03-16-2022 ORIF, fracture, radius, distal 2.7 CORTEX SCREW FDA Start: 03-16-2022 ORIF, fracture, radius, distal 2.7 LCP PLATE FDA Start: 03-16-2022 ORIF, fracture, radius, distal 2.7 LOCKING SCREW FDA Start: 03-16-2022 ORIF, fracture, radius, distal 2.7MM CORTEX SCREW FDA Start: 03-16-2022 ORIF, fracture, radius, distal 2.0 LCP PLATES FDA Start: 03-16-2022 ORIF, fracture, radius, distal 2.7 CORTEX SCREW FDA Start: 03-16-2022 ORIF, fracture, radius, distal 2.7 CORTEX SCREW FDA Start: 03-16-2022 ORIF, fracture, radius, distal 2.7 CORTEX SCREW FDA Start: 03-16-2022 ORIF, fracture, radius, distal 2.7 LCP PLATE FDA Start: 03-16-2022 ORIF, fracture, radius, distal 2.7 LOCKING SCREW FDA Start: 03-16-2022 ORIF, fracture, radius, distal 2.7MM CORTEX SCREW FDA Start: 03-16-2022 ORIF, fracture, radius, distal 2.0 LCP PLATES FDA Start: 03-16-2022 ORIF, fracture, radius, distal 2.7 CORTEX SCREW FDA Start: 03-16-2022 ORIF, fracture, radius, distal 2.7 CORTEX SCREW FDA Start: 03-16-2022 ORIF, fracture, radius, distal 2.7 CORTEX SCREW FDA Start: 03-16-2022 ORIF, fracture, radius, distal 2.7 LCP PLATE FDA Start: 03-16-2022 ORIF, fracture, radius, distal 2.7 LOCKING SCREW FDA Start: 03-16-2022 ORIF, fracture, radius, distal 2.7MM CORTEX SCREW FDA Start: 03-16-2022 ORIF, fracture, radius, distal 2.0 LCP PLATES FDA Start: 03-16-2022 ORIF, fracture, radius, distal 2.7 CORTEX SCREW FDA Start: 03-16-2022 ORIF, fracture, radius, distal 2.7 CORTEX SCREW FDA Start: 03-16-2022 ORIF, fracture, radius, distal 2.7 CORTEX SCREW FDA Start: 03-16-2022 ORIF, fracture, radius, distal 2.7 LCP PLATE FDA Start: 03-16-2022 ORIF, fracture, radius, distal 2.7 LOCKING SCREW FDA Start: 03-16-2022 ORIF, fracture, radius, distal 2.7MM CORTEX SCREW FDA Start: 03-16-2022 ORIF, fracture, radius, distal 2.0 LCP PLATES FDA Start: 03-16-2022 ORIF, fracture, radius, distal 2.7 CORTEX SCREW FDA Start: 03-16-2022 ORIF, fracture, radius, distal 2.7 CORTEX SCREW FDA Start: 03-16-2022 ORIF, fracture, radius, distal 2.7 CORTEX SCREW FDA Start: 03-16-2022 ORIF, fracture, radius, distal 2.7 LCP PLATE FDA Start: 03-16-2022 ORIF, fracture, radius, distal 2.7 LOCKING SCREW FDA Start: 03-16-2022 ORIF, fracture, radius, distal 2.7MM CORTEX SCREW FDA Start: 03-16-2022 ORIF, fracture, radius, distal 2.0 LCP PLATES FDA Start: 03-16-2022 ORIF, fracture, radius, distal 2.7 CORTEX SCREW FDA Start: 03-16-2022 ORIF, fracture, radius, distal 2.7 CORTEX SCREW FDA Start: 03-16-2022 ORIF, fracture, radius, distal 2.7 CORTEX SCREW FDA Start: 03-16-2022 ORIF, fracture, radius, distal 2.7 LCP PLATE FDA Start: 03-16-2022 ORIF, fracture, radius, distal 2.7 LOCKING SCREW FDA Start: 03-16-2022 ORIF, fracture, radius, distal 2.7MM CORTEX SCREW FDA Start: 03-16-2022 ORIF, fracture, radius, distal 2.0 LCP PLATES FDA Start: 03-16-2022 ORIF, fracture, radius, distal 2.7 CORTEX SCREW FDA Start: 03-16-2022 ORIF, fracture, radius, distal 2.7 CORTEX SCREW FDA Start: 03-16-2022 ORIF, fracture, radius, distal 2.7 CORTEX SCREW FDA Start: 03-16-2022 ORIF, fracture, radius, distal 2.7 LCP PLATE FDA Start: 03-16-2022 ORIF, fracture, radius, distal 2.7 LOCKING SCREW FDA Start: 03-16-2022 ORIF, fracture, radius, distal 2.7MM CORTEX SCREW FDA Start: 03-16-2022 ORIF, fracture, radius, distal 2.0 LCP PLATES FDA Start: 03-16-2022 ORIF, fracture, radius, distal 2.7 CORTEX SCREW FDA Start: 03-16-2022 ORIF, fracture, radius, distal 2.7 CORTEX SCREW FDA Start: 03-16-2022 ORIF, fracture, radius, distal 2.7 CORTEX SCREW FDA Start: 03-16-2022 ORIF, fracture, radius, distal 2.7 LCP PLATE FDA Start: 03-16-2022 ORIF, fracture, radius, distal 2.7 LOCKING SCREW FDA Start: 03-16-2022 ORIF, fracture, radius, distal 2.7MM CORTEX SCREW FDA Start: 03-16-2022 ORIF, fracture, radius, distal 2.0 LCP PLATES FDA Start: 03-16-2022 ORIF, fracture, radius, distal 2.7 CORTEX SCREW FDA Start: 03-16-2022 ORIF, fracture, radius, distal 2.7 CORTEX SCREW FDA Start: 03-16-2022 ORIF, fracture, radius, distal 2.7 CORTEX SCREW FDA Start: 03-16-2022 ORIF, fracture, radius, distal 2.7 LCP PLATE FDA Start: 03-16-2022 ORIF, fracture, radius, distal 2.7 LOCKING SCREW FDA Start: 03-16-2022 ORIF, fracture, radius, distal 2.7MM CORTEX SCREW FDA Start: 03-16-2022 ORIF, fracture, radius, distal 2.0 LCP PLATES FDA Start: 03-16-2022 ORIF, fracture, radius, distal 2.7 CORTEX SCREW FDA Start: 03-16-2022 ORIF, fracture, radius, distal 2.7 CORTEX SCREW FDA Start: 03-16-2022 ORIF, fracture, radius, distal 2.7 CORTEX SCREW FDA Start: 03-16-2022 ORIF, fracture, radius, distal 2.7 LCP PLATE FDA Start: 03-16-2022 ORIF, fracture, radius, distal 2.7 LOCKING SCREW FDA Start: 03-16-2022 ORIF, fracture, radius, distal 2.7MM CORTEX SCREW FDA Start: 03-16-2022 ORIF, fracture, radius, distal 2.0 LCP PLATES FDA Start: 03-16-2022 ORIF, fracture, radius, distal 2.7 CORTEX SCREW FDA Start: 03-16-2022 ORIF, fracture, radius, distal 2.7 CORTEX SCREW FDA Start: 03-16-2022 ORIF, fracture, radius, distal 2.7 CORTEX SCREW FDA Start: 03-16-2022 ORIF, fracture, radius, distal 2.7 LCP PLATE FDA Start: 03-16-2022 ORIF, fracture, radius, distal 2.7 LOCKING SCREW FDA Start: 03-16-2022 ORIF, fracture, radius, distal 2.7MM CORTEX SCREW FDA Start: 03-16-2022 ORIF, fracture, radius, distal 2.0 LCP PLATES FDA Start: 03-16-2022 ORIF, fracture, radius, distal 2.7 CORTEX SCREW FDA Start: 03-16-2022 ORIF, fracture, radius, distal 2.7 CORTEX SCREW FDA Start: 03-16-2022 ORIF, fracture, radius, distal 2.7 CORTEX SCREW FDA Start: 03-16-2022 ORIF, fracture, radius, distal 2.7 LCP PLATE FDA Start: 03-16-2022 ORIF, fracture, radius, distal 2.7 LOCKING SCREW FDA Start: 03-16-2022 ORIF, fracture, radius, distal 2.7MM CORTEX SCREW FDA Start: 03-16-2022 ORIF, fracture, radius, distal 2.0 LCP PLATES FDA Start: 03-16-2022 ORIF, fracture, radius, distal 2.7 CORTEX SCREW FDA Start: 03-16-2022 ORIF, fracture, radius, distal 2.7 CORTEX SCREW FDA Start: 03-16-2022 ORIF, fracture, radius, distal 2.7 CORTEX SCREW FDA Start: 03-16-2022 ORIF, fracture, radius, distal 2.7 LCP PLATE FDA Start: 03-16-2022 ORIF, fracture, radius, distal 2.7 LOCKING SCREW FDA Start: 03-16-2022 ORIF, fracture, radius, distal 2.7MM CORTEX SCREW FDA Start: 03-16-2022 ORIF, fracture, radius, distal 2.0 LCP PLATES FDA Start: 03-16-2022 ORIF, fracture, radius, distal 2.7 CORTEX SCREW FDA Start: 03-16-2022 ORIF, fracture, radius, distal 2.7 CORTEX SCREW FDA Start: 03-16-2022 ORIF, fracture, radius, distal 2.7 CORTEX SCREW FDA Start: 03-16-2022 ORIF, fracture, radius, distal 2.7 LCP PLATE FDA Start: 03-16-2022 ORIF, fracture, radius, distal 2.7 LOCKING SCREW FDA Start: 03-16-2022 ORIF, fracture, radius, distal 2.7MM CORTEX SCREW FDA Start: 03-16-2022 ORIF, fracture, radius, distal 2.0 LCP PLATES FDA Start: 03-16-2022 ORIF, fracture, radius, distal 2.7 CORTEX SCREW FDA Start: 03-16-2022 ORIF, fracture, radius, distal 2.7 CORTEX SCREW FDA Start: 03-16-2022 ORIF, fracture, radius, distal 2.7 CORTEX SCREW FDA Start: 03-16-2022 ORIF, fracture, radius, distal 2.7 LCP PLATE FDA Start: 03-16-2022 ORIF, fracture, radius, distal 2.7 LOCKING SCREW FDA Start: 03-16-2022 ORIF, fracture, radius, distal 2.7MM CORTEX SCREW FDA Start: 03-16-2022 Blood Sugar Diagnostic strip Start: 01-24-2019 Blood Sugar Diagnostic strip Start: 01-24-2019 Blood Sugar Diagnostic strip Start: 01-24-2019 Blood Sugar Diagnostic strip Start: 01-24-2019 Blood Sugar Diagnostic strip Start: 01-24-2019 Goals Date Patient Goal Desired Activity /State Functional Status Date Assessment Result Facility 01-10-2023 Are you deaf, or do you have serious difficulty hearing No 01/10/2023 11:02 AM Ivonne Anderson RN No [facility] 01-10-2023 Are you blind, or do you have serious difficulty seeing, even when wearing glasses No 01/10/2023 11:02 AM Ivonne Anderson RN No [facility] 01-10-2023 Do you have serious difficulty walking or climbing stairs No 01/10/2023 11:02 AM Ivonne Anderson RN No [facility] 01-10-2023 Do you have difficul ty dressing or bathing No 01/10/2023 11:02 AM Ivonne Anderson RN No [facility] 01-10-2023 Because of a physica l, mental, or emotional condition, do you have difficulty doing errands alone such as visiting a physician's office or shopping No 01/10/2023 11:02 AM Ivonne Anderson RN [facility] 03-16-2022 Functional status Ambulates;Bath room Privilege [facility] Work Phone: Mental Status Date Assessment Result Facility 06-03-2024 Cognitive function Voice/Name [facility] Work Phone: 05-23-2024 Cognitive function Voice/Name [facility] Work Phone: 04-24-2024 Cognitive function Voice/Name [facility] Work Phone: 01-10-2023 Because of a physica l, mental, or emotional condition, do you have serious difficulty concentrating, remembering, or making decisions No 01/10/2023 11:02 AM Ivonne Anderson RN No [facility] 03-16-2022 Cognitive function Level Of Cons ciousness Sedated [facility] Work Phone: 03-16-2022 Cognitive function Voice/Name [facility] Work Phone: Clinical Notes 09-21-2010 to 09-02-2024 Danay Griffin 08/18/2024 10:00 AM EDT Note Date & Type Note Facility 09-02-2024 Radiology Diagnostic study note [facility] Imaging Services [address] [place], [place] [address] Shoulder min 2 Views MR#: [id number] Acct: [id number] Name: SULEIMAN RAMSEY Rep #: [id number] : 1945 F 78 From: Brown Garcia DO PCP: Dr. Benny Bosch MD Status: RE G CLI Study:Shoulder min 2 Views Date of Exam: 09/02/24 Exam# [id number] Ordering Dr: Benny Bosch MD PROCEDURE: SHOULDER MIN 2 VIEWS 09/02/2024 REASON FOR EXAM: PAIN FALL TECHNIQUE: Four views view of the left shoulder COMPARISON: None FINDINGS: Bones: Normal mineralization of the osseous structures is noted. There are no fractures or dislocations. Joints: Joints appear well preserved. Soft tissues: Unremarkable Other: The visualized left lung is clear. There is no pneumothorax or lung contusion. No displaced rib fractures are seen. RAD/Shoulder min 2 Views IMPRESSION: Unremarkable right shoulder. Reading Location: [id number] CC: Dr. Benny Bosch MD ~ Marketing Operations Specialist: Signed [facility] 08-18-2024 History of Present illness Narrative Suleiman Ramsey 1945 08/18/2024 HPI: Suleiman Ramsey is a 78 year old female who presents here today for follow up breast cancer. Per Dr. Chowdhury's previous note: H/o hypertension, left bundle branch block, hypercholesterolemia, hypothyroidism, diabetes, atrophic vaginitis and rosacea. Patient noted a mass in her right breast approximately 6 months prior to presentation. She was seen by her day habilitation specialist to confirm the presence of a mass. She underwent a bilateral diagnostic mammogram with a right-sided ultrasound at [facility] 11/10/2022. The ultrasound demonstrated that the [...] 2/3. ER (clone 6F11) >95% , strong CA (clone 16/1E2) 80%, weak to moderate Her-2Neu (clone CB11) 1 - 2+ (equivocal) Patient had a CT of the chest, abdomen pelvis on 11/29/2022 at [facility]. There was a group of nodular [...] had a bone scan on 12/04/2022 at [facility]. That study demonstrated increased uptake in [...] of no special type (ductal) Histologic Grade ([place] Histologic Score) Glandular (Acinar) / Tubular Differentiation [...] Examined (sentinel and non-sentinel) 2 Number of [place] Nodes Examined 2 pTNM CLASSIFICATION (AJCC 8th [...] (not amplified) RADIATION: 02/26/23 - 03/30/23 Current therapy:Arimidex Began mid April 2023. Zometa first dose 04/03/23 Interval Hx: Ms. Ramsey presents today for follow up while on AI. She reports feeling well. Received zometa prior to this appt. Did not take her BP medication this morning, thought she needed to be NPO for infusion. Reviewed with her today no needed. She is asymptomatic. Denies new issues. Denies new aches or pains. Appetite and energy level stable. No SOB, CP, or palpitations. Feels that her hearing is gradually getting worse despite hearing aids. No RAYMUNDO, dizziness, or changes in vision. No changes in bowel or bladder habits. No rash or skin changes. Denies bleeding or bruising. HF, tolerable. Joint aches have improved. Tolerating AI well. Has been on PO iron for some time. ROS: All systems reviewed on 08/18/2024 with pertinent positives and negatives as outlined in the interval history. Past medical history, appointments, medications, allergies reviewed. No changes. EXAM: BP 186/110 Pulse 74 Temp 36.3 C (97.4 F) (Temporal) Wt 79.8 kg (176 lb) SpO2 99% BMI 33.81 kg/m APPEARANCE Well appearing, alert, in no acute distress, well-hydrated, well nourished. HEART RRR with normal S1 and S2, no murmurs LUNG clear to auscultation LYMPH NODES No cervical lymphadenopathy, No supraclavicular lymphadenopathy, and No axillary lymphadenopathy. ABDOMEN bowel sounds normoactive, soft, non-tender EXTREMITIES No edema NEURO Awake, alert and oriented x 3, Normal gait, and No involuntary motions. SKIN Skin color, texture, turgor normal, no suspicious rashes or lesions I have performed the physical exam today (08/18/2024) and have edited the note to correlate with current findings. ASSESSMENT/PLAN: 1. 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 Based on her age, comorbid conditions and functional status, not a candidate for adjuvant chemotherapy. - No new concerning findings on exam today, 03/03/2024 - Stopped Arimidex after taking it for a month d/t hand/foot/joint stiffness/aches. She did not call the office. - Resumed arimidex once sinusitis resolved August 2023, tolerating well since - Continue arimidex. - Continue zometa every 6 months with BMP for a total of 6 doses pending tolerance. Next as scheduled in 2024-will be dose #5. - Due for MMG in November [address] Park, reviewed with patient today - Follow up when zometa due in Jan with BMP. - Pt. aware to call office with any question/concerns. - follow up with PCP for health maintenance Danay Griffin APRN.[employer] I spent a total of 30 minutes on the date of the service which included preparing to see the patient, [id number] patient care, completing clinical documentation, performing a medically appropriate examination, and counseling and educating the patient/family/caregiver. Portions of this note including HPI, ROS, impression/plan may have been copied forward as to provide important historical information essential in contributing to medical decision making. Documentation has been reviewed and edited as necessary to support clinical decision making for today's visit and to reflect my own independent evaluation of this patient. documented in this encounter [facility] 08-18-2024 Note HNO ID: [id number] Author: DANAY GRIFFIN, ? Service: ? Author Type: Nurse Practitioner Type: Progress Notes Filed: 08/18/2024 14:34 Note Text: Suleiman Ramsey 1945 08/18/2024 HPI: Suleiman Ramsey is a 78 year old female who presents here today for follow up breast cancer. Per Dr. Chowdhury's previous note: H/o hypertension, left bundle branch block, hypercholesterolemia, hypothyroidism, diabetes, atrophic vaginitis and rosacea. Patient noted a mass in her right breast approximately 6 months prior to presentation. She was seen by her day habilitation specialist to confirm the presence of a mass. She underwent a bilateral diagnostic mammogram with a right-sided ultrasound at [facility] 11/10/2022. The ultrasound demonstrated that the [...] 2/3. ER (clone 6F11) >95% , strong CA (clone 16/1E2) 80%, weak to moderate Her-2Neu (clone CB11) 1 - 2+ (equivocal) Patient had a CT of the chest, abdomen pelvis on 11/29/2022 at [facility]. There was a group of nodular [...] had a bone scan on 12/04/2022 at [facility]. That study demonstrated increased uptake in [...] of no special type (ductal) Histologic Grade ([place] Histologic Score) Glandular (Acinar) / Tubular Differentiation Score 3 Nuclear Pleomorphism Score 2 Mitotic Rate Score 2 Overall Grade Grade 3 (scores of 8 or 9) Tumor Size Greatest dimension of largest invasive focus (Millimeters): 70 mm Ductal Carcinoma In Situ (DCIS) Present Architectural Patterns Cribriform Solid Nuclear Grade Grade III (high) Lymphatic and / or Vascular In (more content not included)... [facility] 06-17-2024 Evaluation note Diagnosis Onset Date Resolution Diarrhea acute June 17, 2024 8:17am Gastric reflux acute June 172024 8:17am [facility] Work Phone: 1(776) 476-235401-21-2025 [facility] Medical Records Department [address] [place] [address] History Physical Exam 06/03/24 1246 MR#: [id number] Acct: [id number] Name: SULEIMAN RAMSEY Rep #: [id number] : 1945 78 From: Prem Friend DO PCP: Dr. Benny Bosch MD Status:[facility] Location: [place] [address] HPI - General General Date of Admission: 06/03/24 Date of Service: 06/03/24 Chief Complaint: persistent abdominal pain HPI Narrative SULEIMAN RAMSEY, is here for a colonoscopy regarding continued abdominal pain and diarrhea.. BGI established .09.01 EGD .06.04; - LA Grade A reflux esophagitis. Biopsied. - Non-obstructing Schatzki ring. - Non-obstructing non-bleeding gastric ulcer with no stigmata of bleeding. Biopsied. OV 04.02.24 w/ epigastric pain, nausea and 5lbs weight loss for one week. Hx of H. pylori infection. Started ozempic prior to symptom start. Increased omeprazole to 40 mg BID. EGD scheduled [facility] ED 04.24.24 visit after presenting to PCP with chest pain. Work up negative for cardiac etiology. GI cocktail resolved symptoms Discharged. OV 05.02.24 Here today for f/u after ED visit. Pt daughter is here with her today and helps provide hx. Her epigastric pain is better while on twice a day PPI but not completely resolved. She continues to have pain with eating. She has only been able to eat soups and nutritional drinks. She is now also having diarrhea after she eats any food.PCP recently ordered GES. Home Medications ???Medication ???Instructions ???Recorded ???Last Taken ???Type levothyroxine 150 mcg tablet 150 mcg PO DAILY 12/03/14 05/23/24 History blood sugar diagnostic #100 ea 01/24/19 03/15/22 History blood-glucose meter #1 ea 01/24/19 03/15/22 History metformin 500 mg tablet,extended 2,000 mg PO QHS #360 tabs 01/24/19 03/15/22 History release 24 hr insulin glargine U-300 conc 300 70 unit subcut 1730 02/14/21 05/23/24 History unit/mL (1.5 mL) subcutaneous pen (Tou[employer]dG[employer] SoloStar U-300 Insulin) ibuprofen 400 mg tablet 400 mg PO Q6H PRN Pain 03/08/22 03/15/22 History olmesartan 20 mg tablet (Benicar) 40 mg PO DAILY 11/15/22 05/23/24 History cholecalciferol (vitamin D3) 50 50 mcg PO DAILY 11/27/22 Unknown History mcg (2,000 unit) capsule diphenhydramine HCl 25 mg capsule 25 mg PO QHS PRN sleep 11/27/22 Unknown History (Benadryl) magnesium oxide 1,600 mg PO DAILY 11/27/22 Unknown History rosuvastatin 20 mg tablet 20 mg PO DAILY 11/27/22 Unknown History Bilateral wrist splints #2 ea 12/21/22 Unknown Rx anastrozole 1 mg tablet 1 mg PO DAILY 10/05/23 Unknown History insulin lispro 100 unit/mL 40 unit subcut .1/2 HR PRIOR TO 04/02/24 Unknown History subcutaneous half-unit pen MEAL (Humalog Alec Abrahan (U-100)) omeprazole 40 mg capsule,delayed 40 mg PO BID abdominal pain #44 04/02/24 Unknown Rx release caps semaglutide 1 mg/dose (4 mg/3 mL) 1 mg subcut QWEEK 04/02/24 05/04/24 History subcutaneous pen injector (Ozempic) ondansetron HCl 4 mg tablet 4 mg PO Q8H #20 tabs 04/07/24 Unknown Rx duloxetine 60 mg capsule,delayed 60 mg PO QHS #90 caps 05/13/24 Unknown Rx release pregabalin 200 mg capsule (Lyrica) 200 mg PO BID #180 caps 05/13/24 05/23/24 Rx Allergy/AdvReac Type Severity Reaction Status Date / Time gabapentin AdvReac Severe Other Verified 05/23/24 06:20 PFSH Medical History Cancer Thyroid disease Diabetes Leg cramps History of neuropathy History of recent fall Fatty liver Restless legs Dietary restriction History of hiatal hernia History of ulceration Abdominal pain Post-menopausal Wears hearing aid Wears glasses Insulin dependent diabetes mellitus High cholesterol Back pain Gastric reflux Former smoker History of echocardiogram History of stress test Hx of corn of toe Hx of dermabrasion Bloating Hypergammaglobulinemia CKD (chronic kidney disease) Hyperlipidemia Cataracts, bilateral Increased urinary frequency Back pain Difficulty balancing Arthritis Thyroid disease Hypertension Home Medications ???Medication ???Instructions ???Recorded ???Last Taken ???Type levothyroxine 150 mcg tablet 150 mcg PO DAILY 12/03/14 05/23/24 History blood sugar diagnostic #100 ea 01/24/19 03/15/22 History blood-glucose meter #1 ea 01/24/19 03/15/22 History metformin 500 mg tablet,extended 2,000 mg PO QHS #360 tabs 01/24/19 03/15/22 History release 24 hr insulin glargine U-300 conc 300 70 unit subcut 1730 02/14/21 05/23/24 History unit/mL (1.5 mL) subcutaneous pen (Toujeo SoloStar U-300 Insulin) ibuprofen 400 mg tablet 400 mg PO Q6H PRN Pain 03/08/22 03/15/22 History olmesartan 20 mg tablet (Benicar) 40 mg PO DAILY 11/15/22 05/23/24 History cholecalciferol (vitamin D3) 50 50 mcg PO (more content not included)...[facility]01-10-2025 [facility] Medical Records Department [address] [place] [address] History Physical Exam 05/23/24 06 MR#: [id number] Acct: [id number] Name: SULEIMAN RAMSEY Rep #: [id number] : 1945 78 From: Prem Friend DO PCP: Dr. Benny Bosch MD Status:[facility] [place] [place] Location: [place] [address] HPI - General General Date of Admission: 05/23/24 Date of Service: 05/23/24 Chief Complaint: abdominal pain HPI Narrative HPI HPI Chief Complaint: abd pain Details: SULEIMAN RAMSEY, is a 78 F who presents to the office today for f/u. BGI established 02.14.21 EGD 01.12.22; - LA Grade A reflux esophagitis. Biopsied. - Non-obstructing Schatzki ring. - Non-obstructing non-bleeding gastric ulcer with no stigmata of bleeding. Biopsied. OV 04.02.24 w/ epigastric pain, nausea and 5lbs weight loss for one week. Hx of H. pylori infection. Started ozempic prior to symptom start. Increased omeprazole to 40 mg BID. EGD scheduled [facility] ED 04.24.24 visit after presenting to PCP with chest pain. Work up negative for cardiac etiology. GI cocktail resolved symptoms Discharged. OV 05.02.24 Here today for f/u after ED visit. Pt daughter is here with her today and helps provide hx. Her epigastric pain is better while on twice a day PPI but not completely resolved. She continues to have pain with eating. She has only been able to eat soups and nutritional drinks. She is now also having diarrhea after she eats any food.PCP recently ordered GES. [facility] Medical History Cancer Thyroid disease Diabetes Leg cramps History of neuropathy History of recent fall Fatty liver Restless legs Dietary restriction History of hiatal hernia History of ulceration Abdominal pain Post-menopausal Wears hearing aid Wears glasses Insulin dependent diabetes mellitus High cholesterol Back pain Gastric reflux Former smoker History of echocardiogram History of stress test Hx of corn of toe Hx of dermabrasion Bloating Hypergammaglobulinemia CKD (chronic kidney disease) Hyperlipidemia Cataracts, bilateral Increased urinary frequency Back pain Difficulty balancing Arthritis Thyroid disease Hypertension Home Medications ???Medication ???Instructions ???Recorded ???Last Taken ???Type levothyroxine 150 mcg tablet 150 mcg PO DAILY 12/03/14 05/23/24 History blood sugar diagnostic #100 ea 01/24/19 03/15/22 History blood-glucose meter #1 ea 01/24/19 03/15/22 History metformin 500 mg tablet,extended 2,000 mg PO QHS #360 tabs 01/24/19 03/15/22 History release 24 hr insulin glargine U-300 conc 300 70 unit subcut 1730 02/14/21 05/23/24 History unit/mL (1.5 mL) subcutaneous pen (Toujeo SoloStar U-300 Insulin) ibuprofen 400 mg tablet 400 mg PO Q6H PRN Pain 03/08/22 03/15/22 History olmesartan 20 mg tablet (Benicar) 40 mg PO DAILY 11/15/22 05/23/24 History cholecalciferol (vitamin D3) 50 50 mcg PO DAILY 11/27/22 Unknown History mcg (2,000 unit) capsule diphenhydramine HCl 25 mg capsule 25 mg PO QHS PRN sleep 11/27/22 Unknown History (Benadryl) magnesium oxide 1,600 mg PO DAILY 11/27/22 Unknown History rosuvastatin 20 mg tablet 20 mg PO DAILY 11/27/22 Unknown History Bilateral wrist splints #2 ea 12/21/22 Unknown Rx anastrozole 1 mg tablet 1 mg PO DAILY 10/05/23 Unknown History insulin lispro 100 unit/mL 40 unit subcut .1/2 HR PRIOR TO 04/02/24 Unknown History subcutaneous half-unit pen MEAL (Humalog Alec Abrahan (U-100)) omeprazole 40 mg capsule,delayed 40 mg PO BID abdominal pain #44 04/02/24 Unknown Rx release caps semaglutide 1 mg/dose (4 mg/3 mL) 1 mg subcut QWEEK 04/02/24 05/04/24 History subcutaneous pen injector (Ozempic) ondansetron HCl 4 mg tablet 4 mg PO Q8H #20 tabs 04/07/24 Unknown Rx duloxetine 60 mg capsule,delayed 60 mg PO QHS #90 caps 05/13/24 Unknown Rx release pregabalin 200 mg capsule (Lyrica) 200 mg PO BID #180 caps 05/13/24 05/23/24 Rx Allergy/AdvReac Type Severity Reaction Status Date / Time gabapentin AdvReac Severe Other Verified 05/23/24 06:20 Family History Father Cancer lung/liver/pancreas Myocardial infarction Heart disease Grandfather Rectal cancer paternal Surgical History History of back surgery Hx of right mastectomy History of right breast biopsy ( 11/2022) S/P ORIF (open reduction internal fixation) fracture Hx of arthroscopic knee surgery Hx of tubal ligation Social History Smoking Status: Former smoker alcohol intake: never ROS Constitutional Constitutional: Denies fatigue, fever(s), poor appetite, weight gain or weight loss (more content not included)...[facility]12-31-2024 Evaluation note* Diagnosis Onset Date Resolution Status Admit Date Polyneuropathy chronic April 152023 1:23pm Abdominal pain acute May 232024 6:02am Gastric reflux acute May 232024 6:02am Diarrhea acute June 03, 2024 12:07pm Diarrhea acute June 17, 2024 8:17am Gastric reflux acute June 172024 8:17am [facility] Work Phone: 1(763) 578-754612-20-2024 Evaluation note* Diagnosis Onset Date Resolution Status Admit Date Epigastric abdominal pain inactive May 02, 2024 12:57pm Polyneuropathy chronic April 152023 1:23pm Abdominal pain acute May 232024 6:02am Gastric reflux acute May 232024 6:02am Diarrhea acute June 03, 2024 12:07pm Diarrhea acute June 17, 2024 8:17am Gastric reflux acute June 172024 8:17am [facility] Work Phone: 1(584) 900-958810-21-2024 NoteHNO ID: [id number] Author: DANAY GRIFFIN, ? Service: ? Author Type: Nurse Practitioner Type: Progress Notes Filed: 03/03/2024 13:24 Note Text: Suleiman Ramsey 1945 03/03/2024 HPI: Suleiman Ramsey is a 78 year old female who presents here today for follow up breast cancer. Per Dr. Chowdhury's previous note: H/o hypertension, left bundle branch block, hypercholesterolemia, hypothyroidism, diabetes, atrophic vaginitis and rosacea. Patient noted a mass in her right breast approximately 6 months prior to presentation. She was seen by her day habilitation specialist to confirm the presence of a mass. She underwent a bilateral diagnostic mammogram with a right-sided ultrasound at [facility] 11/10/2022. The ultrasound demonstrated that the [...] 2/3. ER (clone 6F11) >95% , strong CA (clone 16/1E2) 80%, weak to moderate Her-2Neu (clone CB11) 1 - 2+ (equivocal) Patient had a CT of the chest, abdomen pelvis on 11/29/2022 at [facility]. There was a group of nodular [...] had a bone scan on 12/04/2022 at [facility]. That study demonstrated increased uptake in [...] III (high) Lymphatic and / or Vascular (more content not included)...[facility]10-21-2024 History of Present illness Narrative* Danay Griffin - 03/03/2024 8:36 AM EDT Suleiman Ramsey 1945 03/03/2024 HPI: Sueliman Ramsey is a 78 year old female who presents here today for follow up breast cancer. Per Dr. Chowdhury's previous note: H/o hypertension, left bundle branch block, hypercholesterolemia, hypothyroidism, diabetes, atrophic vaginitis and rosacea. Patient noted a mass in her right breast approximately 6 months prior to presentation. She was seenby her day habilitation specialist to confirm the presence of a mass. She underwent a bilateral diagnostic mammogram with a right-sided ultrasound at [facility] 11/10/2022. The ultrasound demonstrated that the [...] 2/3. ER (clone 6F11) >95% , strong CA (clone 16/1E2) 80%, weak to moderate Her-2Neu (clone CB11) 1 - 2+ (equivocal) Patient had a CT of the chest, abdomen pelvis on 11/29/2022 at [facility]. There was a group of nodular soft tissue densities in the right breast. Small postbiopsy microclip was visualized. There was no findings suggestive of metastatic disease in the chest, abdomen pelvis. There is old calcified granulomatous disease with subcarinal adenopathy. Stable, bulbous appearance of the uterus was also observed.Clinical suspicion for fibroid. Stable, extensive degenerative changes [...] had a bone scan on 12/04/2022 at [facility]. That study demonstrated increased uptake in the left anterior lateral fifth and sixth ribs consistent with trauma/fracture. There was no definitescintigraphic evidence of diffuse skeletal metastatic disease. Repeat [...] Examined (sentinel and non-sentinel) 2 Number of [place] Nodes Examined 2 pTNM CLASSIFICATION (AJCC 8th Edition) Reporting of pT, pN, and (when applicable) pM categories is based on information available to the pathologist at the time the report is issued. As per the AJCC (Chapter 1, 8th Ed.) it is the managingphysician s responsibility to establish the final pathologic [...] (not amplified) RADIATION: 02/26/23 - 03/30/23 Current therapy:Arimidex Began mid April 2023. Zometa first dose 04/03/23 Interval Hx: Ms. Ramsey presents today for follow up while on AI. She reports feeling well. Denies new issues. Denies new aches or pains. Appetite is too good. Energy level stable. No SOB, CP, or palpitations. Occasional PARKS, stable. No RAYMUNDO, dizziness, or changes in vision. Denies N/V/C/D. No changes in bowel or bladder habits. No rash or skin changes. Denies bleeding or bruising. HF, tolerable. Joint aches have improved. States that she is tolerating AI much better. ROS: All systems reviewed on 03/03/2024 with pertinent positives and negatives as outlined in the interval history. Past medical history, appointments, medications, allergies reviewed. No changes. EXAM: BP 155/92 Pulse 78 Temp 36.3 C (97.3 F) (Temporal) Wt 78.9 kg (174 lb) SpO2 98% BMI 33.42kg/m APPEARANCE Well appearing, alert, in no acute distress, well-hydrated, well nourished. HEART RRR with normal S1 and S2, no murmurs LUNG clear to auscultation BREAST FEMALE R mastectomy scar, no nodule/skin changes, L no mass/nodule (declined today 03/03/2024, had CBE with surg last week 02/27/2024) LYMPH NODES No cervical lymphadenopathy, No supraclavicular lymphadenopathy, and No axillary lymphadenopathy. ABDOMEN bowel sounds normoactive, soft, non-tender EXTREMITIES No edema NEURO Awake, alert and oriented x 3, Normal gait, and No involuntary motions. SKIN Skin color, texture, turgor normal, no suspicious rashes or lesions I have performed the physical exam today (03/03/2024) and have edited the note to correlate with current findings. ASSESSMENT/PLAN: 1. Malignant neoplasm of upper-inner quadrant of right breast in female, estrogen receptor positive(HCC) - ICD9: 174.2, V86.0, ICD10: C50.211, Z17.0 pT3 pN0 M0 grade 3 ER/CA positive, HER2 nonamplified pathologic stage IIA invasive ductal carcinomaof the right breast. Based on her age, comorbid conditions and functional status, not a candidate for adjuvant chemotherapy. - No new concerning findings on exam today, 03/03/2024 - Stopped Arimidex after taking it for a month d/t hand/foot/joint stiffness/aches. She did not call the office. - Resumed arimidex once sinusitis resolved August 2023, tolerating well since - Continue arimidex. - Continue zometa every 6 months with BMP for a total of 6 doses pending tolerance. Next as scheduled in 2023-will be dose #4. - Follow up when zometa due in August with BMP. - Pt. aware to call office with any question/concerns. Danay Griffin APRN.LUMPIA WRAPPER MAKER I spent a total of 30 minutes on the date of the service which included preparing to see the patient, dipy-um-ohle patient care, completing clinical documentation, performing a medically appropriate examination, and counseling and educating the patient/family/caregiver. Portions of this note including HPI, ROS, impression/plan may have been copied forward as to provide important historical information essential in contributing to medical decision making. Documentation has been reviewed and edited as necessary to support clinical decision making for today's visit and to reflect my own independent evaluation of this patient. [facility] Nurse Note* Brandy Morales LPN - 02/27/2024 9:05 AM EDT Follow up Last mammogram on: 11/26/2023 bilateral Results: see report Is the patient active on [employer] Yes Electronically Signed By: Brandy Morales LPN In Department: [facility] REVIEW OF PATIENT HISTORY: OB History T0 [...] Social History Tobacco Use Smoking status: Former Current packs/day: 0.00 Types: Cigarettes Quit date: 05/14/1980 Years since quittin.8 Smokeless tobacco: Never Vaping Use Vaping status: Never Used Substance Use Topics Alcohol use: Yes Comment: one a Year Drug use: No [facility] Work Phone: 1(857) 103-511310-16-2024 Nurse Note* Brandy Morales LPN - 02/27/2024 9:05 AM EDT Follow up Last mammogram on: 11/26/2023 bilateral Results: see report Is the patient active on [employer] Yes Electronically Signed By: Brandy Morales LPN In Department: [facility] REVIEW OF PATIENT HISTORY: OB History T0 [...] Social History Tobacco Use Smoking status: Former Current packs/day: 0.00 Types: Cigarettes Quit date: 05/14/1980 Years since quittin.8 Smokeless tobacco: Never Vaping Use Vaping status: Never Used Substance Use Topics Alcohol use: Yes Comment: one a Year Drug use: No documented in this encounterC[facility]10[facility] History of Present illness Narrative* Alex Danielle PA-C - 02/27/2024 9:00 AM EDT REASON FOR TODAY'S VISIT: Patient presents with: Established Patient HISTORY of PRESENT ILLNESS: Suleiman Ramsey, 78 year old year old female, s/p a RIGHT mastectomy, RIGHT sentinel lymph node mapping and biopsy (no reconstruction) performed by Dr. Parkinson (Breast Surgeon) on 01/09/2023 Final pathology reports 7.0 cm IDC (margins clear), Grade 3, 0/2 LN, -LVI ER+, CA+, HER2- PATHOLOGICAL STAGE RIGHT BREAST: p,T3,N0 HISTORY: Patient was last seen for a six month follow up on 08/17/2023 At that time, she had consulted with Dr. Chowdhury (Medical Oncologist) who did not recommend adjuvant chemotherapy. She had undergone radiation treatment to the right chest wall and recovered well. Patient tried a trial of Arimidex, but stopped it one month later due to joint pain. In the interim, she has since resumed Arimidex and reports she is tolerating well. Continues with Zometa infusion every six months which is scheduled. Last LEFT sided screening mammogram was on 11/26/2023 No suspicious findings were noted. Patient is here for a clinical examination ROS: HEENT: Denies vision changes or headaches BREAST: Denies palpating any new breast masses, no breast pain, no skin changes, no left nipple discharge ABD: Denies any abdominal pain or new changes in bowel habits MUSCULOSKELETAL: Denies any bone, joint or muscle pain IMAGING: DATE OF EXAM: Nov 26 2023 11:24AM [facility] [id number] - [facility] SCREENING W JOVAN / PROCEDURE REASON: multiple diagnoses * * * * Physician Interpretation * * * * RESULT: THIS REPORT HAS BEEN AMENDED. #[id number] - [facility] SCREENING W JOVAN UNILATERAL LEFT DIGITAL SCREENING MAMMOGRAM TOMOSYNTHESIS WITH CAD: 11/26/2023 HISTORY: Multiple Diagnoses /Screening Mammogram with JOVAN - patient reports NO breast symptoms /priors available for comparison. RESULT: TECHNIQUE: The study was acquired using full field digital technology and interpreted from soft copy. Digital Breast Tomosynthesis (DBT) images were obtained and used to assist in the interpretation of this examination. Current study was also evaluated with a Computer Aided Detection (CAD). Comparison is made to exams dated: 11/10/2022 mammogram and 12/22/2022 mammogram - [facility]. There are scattered areas of fibroglandular density in the left breast. Left mastectomy. No significant masses, calcifications, or other findings are seen in the breast. There has been no significant interval change. IMPRESSION: BENIGN FINDING There is no mammographic evidence of malignancy. A 1 year screening mammogram is recommended. Gordon Hoffman M.D. pt/mikierad:2023 09:17:03 AMENDMENT: 2023 Gordon Hoffman M.D. Amendment to correct the patient had a RIGHT mastectomy. No suspicious findings in the left breast. Amended BI-RADS: 2 Benign finding letter sent: Normal - Films Compared Marketing Operations Specialist: Hamzah Transcribe Date/Time: Nov 26 2023 11:01A Dictated by: GORDON HOFFMAN MD EXAMINATION: GEN alert and orientated, well nourished, calm Regional Lymph Nodes There is no concerning supraclavicular, infraclavicular or cervical lymphadenopathy. BREASTS: The patient was examined in the upright and supine position. RIGHT breast surgically absent with mild hyperpigmentation s/p radiation treastments. Soft, no dominant masses, no NAC, no discharge, no skin changes. Horizontal incision well healed RIGHT axilla no palpable axillary lymphadenopathy LEFT breast soft, no dominant masses, nipple everted, no discharge, no skin changes LEFT axilla no palpable axillary lymphadenopathy ABD soft, non-distended, non-tender, no organomegaly EXT ambulated independently, good ROM of upper extremities, no evidence of lymphedema IMPRESSION: Suleiman Ramsey, 78 year old year old female, s/p a RIGHT mastectomy, RIGHT sentinel lymph node mapping and biopsy (No reconstruction) performed by Dr. Parkinson (Breast Surgeon) on 01/09/2023 Final pathology reports IDC, 7.0 cm (margins clear), Grade 3, 0/2 LN, -LVI ER+, CA+, HER2- PATHOLOGICAL STAGE RIGHT BREAST: p,T3,N0 SOZO LDEX LEFT arm -0.1 12/22/2022 LDEX LEFT arm -2.0 02/27/2024 No clinical or mammographic evidence of disease process today PLAN: L-DEX results discussed and negative for subclinical evidence of lymphedema. Ms. Ramsey will follow-up with WHIT Berger, (Medical Oncology) as scheduled, 03/03/2024. She understands the importance of follow up after completion of Breast Cancer Treatments. Guidelines reviewed and include clinical examinations every six month with annual mammograms for five years. Followed by annual mammogram with annual clinical examination. Discussed the importance of self-breast awareness and healthy lifestyle. Patient instructed on how to perform a breast self-examination (SBE). Mammogram indicated in 11/2024 I will refer Ms Ramsey to Dr. Chowdhury (Medical Oncologist) and his team for future imaging and clinical examination. She will follow up with us on an as needed basis. She has our names and numbers to stay in touch if she has any questions, concerns or problems in the interim. I spent a total of 25 minutes on the date of the service which included preparing to see the patient, [id number] patient care, completing clinical documentation, obtaining and/or reviewing separately obtained history, performing a medically appropriate examination, and counseling and educating the patient/family/caregiver. Alex Danielle PA-C cc: Micki Parkinson, DO Breast Surgeon Benny Bosch [place] [address] documented in this encounterC[facility]10-16-[facility]24 NoteHNO ID: [id number] Author: ALEX DANIELLE PA-C Service: ? Author Type: Physician Physician Neonatology Type: Progress Notes Filed: 02/27/2024 10:38 Note Text: REASON FOR TODAY'S VISIT: Patient presents with: Established Patient HISTORY of PRESENT ILLNESS: Suleiman Ramsey, 78 year old year old female, s/p a RIGHT mastectomy, RIGHT sentinel lymph node mapping and biopsy (no reconstruction) performed by Dr. Parkinson (Breast Surgeon) on 01/09/2023 Final pathology reports 7.0 cm IDC (margins clear), Grade 3, 0/2 LN, -LVI ER+, CA+, HER2- PATHOLOGICAL STAGE RIGHT BREAST: p,T3,N0 HISTORY: Patient was last seen for a six month follow up on 08/17/2023 At that time, she had consulted with Dr. Chowdhury (Medical Oncologist) who did not recommend adjuvant chemotherapy. She had undergone radiation treatment to the right chest wall and recovered well. Patient tried a trial of Arimidex, but stopped it one month later due to joint pain. In the interim, she has since resumed Arimidex and reports she is tolerating well. Continues with Zometa infusion every six months which is scheduled. Last LEFT sided screening mammogram was on 11/26/2023 No suspicious findings were noted. Patient is here for a clinical examination ROS: HEENT: Denies vision changes or headaches BREAST: Denies palpating any new breast masses, no breast pain, no skin changes, no left nipple discharge ABD: Denies any abdominal pain or new changes in bowel habits MUSCULOSKELETAL: Denies any bone, joint or muscle pain IMAGING: DATE OF EXAM: Nov 26 2023 11:24AM [facility] [id number] - [facility] SCREENING W JOVAN / PROCEDURE REASON: multiple diagnoses * * * * Physician Interpretation * * * * RESULT: THIS REPORT HAS BEEN AMENDED. #[id number] - [facility] SCREENING W JOVAN UNILATERAL LEFT DIGITAL SCREENING MAMMOGRAM TOMOSYNTHESIS WITH CAD: 11/26/2023 HISTORY: Multiple Diagnoses /Screening Mammogram with JOVAN - patient reports NO breast symptoms /priors available for comparison. RESULT: TECHNIQUE: The study was acquired using full field digital technology and interpreted from soft copy. Digital Breast Tomosynthesis (DBT) images were obtained and used to assist in the interpretation of this examination. Current study was also evaluated with a Computer Aided Detection (CAD). Comparison is made to exams dated: 11/10/2022 mammogram and 12/22/2022 mammogram - [facility]. There are scattered areas of fibroglandular density in the left breast. Left mastectomy. No significant masses, calcifications, or other findings are seen in the breast. There has been no significant interval change. IMPRESSION: BENIGN FINDING There is no mammographic evidence of malignancy. A 1 year screening mammogram is recommended. Gordon Hoffman M.D. pt/penrad:2023 09:17:03 AMENDMENT: 2023 Gordon Hoffman M.D. Amendment to correct the patient had a RIGHT mastectomy. No suspicious findings in the left breast. Amended BI-RADS: 2 Benign finding letter sent: Normal - Films Compared Marketing Operations Specialist: Hamzah Transcribe Date/Time: Nov 26 2023 11:01A Dictated by: GORDON HOFFMAN MD EXAMINATION: GEN alert and orientated, well nourished, calm Regional Lymph Nodes There is no concerning supraclavicular, infraclavicular or cervical lymphadenopathy. BREASTS: The patient was examined in the upright and supine position. RIGHT breast surgically absent with mild hyperpigmentation s/p radiation treastments. Soft, no dominant masses, no NAC, no discharge, no skin changes. Horizontal incision well healed RIGHT axilla no palpable axillary lymphadenopathy LEFT breast soft, no dominant masses, nipple everted, no discharge, no skin changes LEFT axilla no palpable axillary lymphadenopathy ABD soft, non-distended, non-tender, no organomegaly EXT ambulated independently, good ROM of upper extremities, no evidence of lymphedema IMPRESSION: Suleiman Ramsey, 78 year old year old female, s/p a RIGHT mastectomy, RIGHT sentinel lymph node mapping and biopsy (No reconstruction) performed by Dr. Parkinson (Breast Surgeon) on 01/09/2023 Final pathology reports IDC, 7.0 cm (margins clear), Grade 3, 0/2 LN, -LVI ER+, CA+, HER2- PATHOLOGICAL STAGE RIGHT BREAST: p,T3,N0 SOZO LDEX LEFT arm -0.1 12/22/2022 LDEX LEFT arm -2.0 02/27/2024 No clinical or mammographic evidence of disease process today PLAN: L-DEX results discussed and negative for subclinical evidence of lymphedema. Ms. Ramsey will follow-up with WHIT Berger, (Medical Oncology) as scheduled, 03/03/2024. She understands the importance of follow up after completion of Breast Cancer Treatments. Guidelines reviewed and include clinical examinations every six month with annual mammograms for five years. Followed by annual mammogram with annual clinical examination. Discussed the importance of self-breast awareness and healthy lifestyle. Patient instructed on how to perfo (more content not included)...[facility]09-16-[facility] History of Present illness Narrative* Marshal Park MD - 01/28/2024 9:29 AM EDT Supervisor Communications And Signals offered: Patient declines. Suleiman is a 78 year old who presents for an annual gynecologic exam without complaints. Postmenopausal: Yes Denies post menopausal bleeding HRT use: No. Last Pap: 05/03/2011 normal HPV: 02/11/2007 negative History of abnormal pap: Yes Last mammogram: 2023 History of abnormal mammogram: H/o breast cancer OB History T0 L3 SAB0 IAB0 Ectopic0 Multiple0 Live Births0 Safety Leader History LMP: Postmenopausal Age at Menarche: Age at First : Age at Menopause: Safety Leader History Comments: Menarche: 12; Age at 1st : 22; Post menopausal Sexual Activity: Not Currently; Male Contraception: No contraception data on record PAST MEDICAL HISTORY Diagnosis Date Breast cancer [...] Paternal Grandfather Anesthesia Problems No Family History SOCIAL HISTORY Social History Tobacco Use Smoking status: Former Current packs/day: 0.00 Types: Cigarettes Quit date: 05/14/1980 Years since quittin.7 Smokeless tobacco: Never Vaping Use Vaping status: Never Used Substance Use Topics Alcohol use: Yes Comment: one a Year Drug use: No REVIEW OF SYSTEMS Abdomen: No abdominal pain, nausea, vomiting, diarrhea, or constipation. No bloating, early satiety, indigestion, or increased flatulence. Bladder: No dysuria, gross hematuria, urinary frequency, urinary urgency, or incontinence Breast: No breast lumps, nipple d/c, overlying skin changes, redness or skin retraction Allergies and current medication updated:Yes SENSITIVE EXAM: The sensitive examination was discussed with the Patient or Patient's Authorized Waterworks Supervisor. As applicable, any other physician, advance practice provider, medical student, or other health professional student that will be observing or involved in the sensitive examination for educational or training purposes was discussed with the Patient or Authorized Waterworks Supervisor. The Patient or Authorized Waterworks Supervisor has agreed to proceed with the sensitive examination. (Sensitive examination includes inspection and/or palpation of the breasts, pelvis, prostate and anorectal regions). EXAM: BP 130/94 Ht 5' .5 (1.54m) Wt 174 lb (78.9kg) BMI 33.41 kg/(m^2). GENERAL: pleasant, female in no apparent distress HEENT: Normocephalic and atraumatic NECK: full range of motion BREAST: Left breast soft, non-tender, no dominant mass, normal nipple-areolar complex, no lymphadenopathy, and no nipple discharge. Right mastectomy noted CHEST: Normal inspiratory effort ABDOMEN: soft, non-tender, and no masses PELVIC: external genitalia normal, normal Bartholin's glands, urethra, Jennings's glands, no vulvar lesions, no cervical lesions, physiologic discharge present, normal appearing perineal body and perianal region BIMANUAL: uterus normal size, shape and consistency, no adnexal masses, and non-tender RECTOVAGINAL: deferred. NEURO: exam grossly non-focal EXTREMITIES: normal ASSESSMENT/PLAN: 1) Health maintenance: Pap/HPV screening no longer needed Mammogram up to date Nutrition, exercise and routine health maintenance exams reviewed. Colon cancer screening: followed by PCP TSH/lipids/glucose: followed by PCP BMD: followed by PCP 2) Follow up one year or sooner as needed Marshal Park DO documented in this encounterC[facility] [facility]09[facility]16-[facility]24 NoteHNO ID: [id number] Author: MARSHAL PARK MD Service: ? Author Type: Physician Type: Progress Notes Filed: 01/28/2024 12:50 Note Text: Supervisor Communications And Signals offered: Patient declines. Suleiman is a 78 year old who presents for an annual gynecologic exam without complaints. Postmenopausal: Yes Denies post menopausal bleeding HRT use: No. Last Pap: 05/03/2011 normal HPV: 02/11/2007 negative History of abnormal pap: Yes Last mammogram: 2023 History of abnormal mammogram: H/o breast cancer OB History T0 L3 SAB0 IAB0 Ectopic0 Multiple0 Live Births0 Safety Leader History LMP: Postmenopausal Age at Menarche: Age at First : Age at Menopause: Safety Leader History Comments: Menarche: 12; Age at 1st : 22; Post menopausal Sexual Activity: Not Currently; Male Contraception: No contraception data on record PAST MEDICAL HISTORY Diagnosis Date Breast cancer [...] Paternal Grandfather Anesthesia Problems No Family History SOCIAL HISTORY Social History Tobacco Use Smoking status: Former Current packs/day: 0.00 Types: Cigarettes Quit date: 05/14/1980 Years since quittin.7 Smokeless tobacco: Never Vaping Use Vaping status: Never Used Substance Use Topics Alcohol use: Yes Comment: one a Year Drug use: No REVIEW OF SYSTEMS Abdomen: No abdominal pain, nausea, vomiting, diarrhea, or constipation. No bloating, early satiety, indigestion, or increased flatulence. Bladder: No dysuria, gross hematuria, urinary frequency, urinary urgency, or incontinence Breast: No breast lumps, nipple d/c, overlying skin changes, redness or skin retraction Allergies and current medication updated:Yes SENSITIVE EXAM: The sensitive examination was discussed with the Patient or Patient's Authorized Waterworks Supervisor. As applicable, any other physician, advance practice provider, medical student, or other health professional student that will be observing or involved in the sensitive examination for educational or training purposes was discussed with the Patient or Authorized Waterworks Supervisor. The Patient or Authorized Waterworks Supervisor has agreed to proceed with the sensitive examination. (Sensitive examination includes inspection and/or palpation of the breasts, pelvis, prostate and anorectal regions). EXAM: BP 130/94 Ht 5' .5 (1.54m) Wt 174 lb (78.9kg) BMI 33.41 kg/(m2). GENERAL: pleasant, female in no apparent distress HEENT: Normocephalic and atraumatic NECK: full range of motion BREAST: Left breast soft, non-tender, no dominant mass, normal nipple-areolar complex, no lymphadenopathy, and no nipple discharge. Right mastectomy noted CHEST: Normal inspiratory effort ABDOMEN: soft, non-tender, and no masses PELVIC: external genitalia normal, normal Bartholin's glands, urethra, Jennings's glands, no vulvar lesions, no cervical lesions, physiologic discharge present, normal appearing perineal body and perianal region BIMANUAL: uterus normal size, shape and consistency, no adnexal masses, and non-tender RECTOVAGINAL: deferred. NEURO: exam grossly non-focal EXTREMITIES: normal ASSESSMENT/PLAN: 1) Health maintenance: Pap/HPV screening no longer needed Mammogram up to date Nutrition, exercise and routine health maintenance exams reviewed. Colon cancer screening: followed by PCP TSH/lipids/glucose: followed by PCP BMD: followed by PCP 2) Follow up one year or sooner as needed Marshal Park, [facility] Telephone encounter Note* Telephone Encounter - Susan Wilkinson APRN.CNP - 12/19/2023 12:09 PM EDT Refill done on December 10. [place] [facility]08-07-2024 Miscellaneous Notes* Telephone Encounter - Susan Wilkinson APRN.CNP - 12/19/2023 12:09 PM EDT Refill done on December 10. documented in this encounterC[place] [facility]07-30-2024 NoteHNO ID: [id number] Author: SUSAN WILKINSON APRN.WHIT Service: ? Author Type: Nurse Practitioner Type: Progress Notes Filed: 12/12/2023 12:03 Note Text: Chief Complaint Patient presents with: Established Patient HPI: Suleiman Ramsey is a 78 year old female who presents here today for follow up breast cancer. Per Dr. Chowdhury's previous note: H/o hypertension, left bundle branch block, hypercholesterolemia, hypothyroidism, diabetes, atrophic vaginitis and rosacea. Patient noted a mass in her right breast approximately 6 months prior to presentation. She was seen by her day habilitation specialist to confirm the presence of a mass. She underwent a bilateral diagnostic mammogram with a right-sided ultrasound at [facility] 11/10/2022. The ultrasound demonstrated that the [...] 2/3. ER (clone 6F11) >95% , strong CA (clone 16/1E2) 80%, weak to moderate Her-2Neu (clone CB11) 1 - 2+ (equivocal) Patient had a CT of the chest, abdomen pelvis on 11/29/2022 at [facility]. There was a group of nodular [...] had a bone scan on 12/04/2022 at [facility]. That study demonstrated increased uptake in [...] of no special type (ductal) Histologic Grade ([place] Histologic Score) Glandular (Acinar) / Tubular Differentiation Score 3 Nuclear Pleomorphism Score 2 Mitotic Rate Score 2 Overall Grade Grade 3 (scores of 8 or 9) Tumor Size Greatest dimension of largest invasive focus (Millimeters): 70 mm Ductal Carcinoma In Situ (DCIS) Present Architectural Patterns Cribriform Solid Nuclear Grade Grade III (high) (more content not included)...[facility]07-30-2024 History of Present illness Narrative* Susan Wilkinson, STORM.LUMPIA WRAPPER MAKER - 12/11/2023 9:36 AM EDT Chief Complaint Patient presents with: Established Patient HPI: Suleiman Ramsey is a 78 year old female who presents here today for follow up breast cancer. Per Dr. Chowdhury's previous note: H/o hypertension, left bundle branch block, hypercholesterolemia, hypothyroidism, diabetes, atrophic vaginitis and rosacea. Patient noted a mass in her right breast approximately 6 months prior to presentation. She was seenby her day habilitation specialist to confirm the presence of a mass. She underwent a bilateral diagnostic mammogram with a right-sided ultrasound at [facility] 11/10/2022. The ultrasound demonstrated that the [...] 2/3. ER (clone 6F11) >95% , strong CA (clone 16/1E2) 80%, weak to moderate Her-2Neu (clone CB11) 1 - 2+ (equivocal) Patient had a CT of the chest, abdomen pelvis on 11/29/2022 at [facility]. There was a group of nodular soft tissue densities in the right breast. Small postbiopsy microclip was visualized. There was no findings suggestive of metastatic disease in the chest, abdomen pelvis. There is old calcified granulomatous disease with subcarinal adenopathy. Stable, bulbous appearance of the uterus was also observed.Clinical suspicion for fibroid. Stable, extensive degenerative changes [...] had a bone scan on 12/04/2022 at [facility]. That study demonstrated increased uptake in the left anterior lateral fifth and sixth ribs consistent with trauma/fracture. There was no definitescintigraphic evidence of diffuse skeletal metastatic disease. Repeat [...] of no special type (ductal) Histologic Grade ([place] Histologic Score) Glandular (Acinar) / Tubular Differentiation [...] Examined (sentinel and non-sentinel) 2 Number of [place] Nodes Examined 2 pTNM CLASSIFICATION (AJCC 8th Edition) Reporting of pT, pN, and (when applicable) pM categories is based on information available to the pathologist at the time the report is issued. As per the AJCC (Chapter 1, 8th Ed.) it is the managingphysician s responsibility to establish the final pathologic [...] (not amplified) RADIATION: 02/26/23 - 03/30/23 Current therapy:Arimidex Began mid April 2023. Zometa first dose 04/03/23 No new concerns today. Appetite:Disgustingly good. Energy level:I feel like I have it but then I do something and I'm wiped out. [place] [address] way prior to dx. Denies fevers. 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 Past medical history, appointments, medications, allergies reviewed. No changes. EXAM: BP 152/83 Pulse 77 Temp 36.2 C (97.2 F) Wt 78.9 kg (173 lb 14.4 oz) SpO2 99% BMI 33.05 kg/m APPEARANCE Well appearing, alert, in no acute distress, well-hydrated, well nourished. HEART RRR with normal S1 and S2, no murmurs LUNG clear to auscultation BREAST FEMALE R mastectomy scar, no nodule/skin changes, L no mass/nodule LYMPH NODES No cervical lymphadenopathy, No supraclavicular lymphadenopathy, and No axillary lymphadenopathy. ABDOMEN bowel sounds normoactive, soft, non-tender EXTREMITIES No edema NEURO Awake, alert and oriented x 3, Normal gait, and No involuntary motions. SKIN Skin color, texture, turgor normal, no suspicious rashes or lesions ASSESSMENT/PLAN: 1. Malignant neoplasm of upper-inner quadrant of right breast in female, estrogen receptor positive(HCC) - ICD9: 174.2, V86.0, ICD10: C50.211, Z17.0 pT3 pN0 M0 grade 3 ER/CA positive, HER2 nonamplified pathologic stage IIA invasive ductal carcinomaof the right breast. Based on her age, comorbid conditions and functional status, not a candidate for adjuvant chemotherapy. - No new concerning findings on exam. - Stopped Arimidex after taking it for a month d/t hand/foot/joint stiffness/aches. She did not call the office. - Resumed arimidex once sinusitis resolved August 2023. - Continue arimidex. Rx sent. - Continue zometa every 6 months with BMP for a total of 6 doses pending tolerance. Next as scheduled in 2023-will be dose #3. - Pt. requests est. care appt. with MARBLE FINISHER. - Follow up when zometa due in Feb. with BMP. - Pt. aware to call office with any question/concerns. The patient indicates understanding of these issues and agrees with the plan. All documentation from previous visit of 08/03/23-Dr. Chowdhury/myself was copied and pasted, documentation has been reviewed and edited as necessary for today's visit. Susan Wilkinson APRN.WHIT documented in this encounterC[facility] [facility]07-16-2024 Miscellaneous Notes* Letter - Coordinator, Mammography - 2023 9:20 AM EDT 2023 PID: [id number] Suleiman Ramsey [address] [place] [address] Dear Ms. Ramsey, Your prior imaging studies have arrived and been compared to your current study. We are pleased to inform you that the results of your recent breast imaging exam on 11/26/2023 are normal. Breast tissue can be either dense or not dense. Dense tissue makes it harder to find breast cancer on a mammogram and also raises the risk of developing breast cancer. Your breast tissue is not dense. Talk to your healthcare provider about breast density, risks for breast cancer, and your individual situation. Early detection of cancer is very important. We also understand recommendations regarding breast cancer screening are controversial. Please discuss with your primary care provider which strategy is best for you and whether a mammogram is right for you. Your imaging studies and report will be kept on file at [facility] as part of your permanent medical record and are available for your continuing care. Thank you for allowing us to help in meeting your health care needs. Sincerely, Dr. Hoffman Interpreting Radiologist [facility] (Normal Old Films compared) documented in this encounterCinc[place] [facility]07-16-2024 Note* Letter - Coordinator, Mammography - 2023 9:20 AM EDT 2023 PID: [id number] Suleiman Ramsey [address] [place] [address] Dear Ms. Ramsey, Your prior imaging studies have arrived and been compared to your current study. We are pleased to inform you that the results of your recent breast imaging exam on 11/26/2023 are normal. Breast tissue can be either dense or not dense. Dense tissue makes it harder to find breast cancer on a mammogram and also raises the risk of developing breast cancer. Your breast tissue is not dense. Talk to your healthcare provider about breast density, risks for breast cancer, and your individual situation. Early detection of cancer is very important. We also understand recommendations regarding breast cancer screening are controversial. Please discuss with your primary care provider which strategy is best for you and whether a mammogram is right for you. Your imaging studies and report will be kept on file at [facility] as part of your permanent medical record and are available for your continuing care. Thank you for allowing us to help in meeting your health care needs. Sincerely, Dr. Hoffman Interpreting Radiologist [facility] (Normal Old Films compared) [place] [facility]07-15-2024 History of Present illness Narrative* Janes Sellers Mammo Tech - 11/26/2023 11:10 AM EDT Radiology Service Progress Note PATIENT NAME: Suleiman Ramsey DATE OF SERVICE: November 26, 2023 TIME: 10:59 AM PATIENT IDENTITY VERIFICATION COMPLETED USING TWO (2) IDENTIFIERS: Name and Date of confirmedby patient verbally. FALL SCREENING: Has the patient had 2 falls in the last year or 1 fall with injury or currently using an Ambulatory Assistive Device (Walker, Cane, Wheelchair, Crutches, etc.)? No PATIENT GENDER DATA: Female. status: : No status: NO. PATIENT RELEVANT IMPLANT DATA REVIEWED: Not Applicable PATIENT PRESENTS WITH AN IMPLANTABLE OR ATTACHED LIFE ENRICHMENT MANAGER: Yes [facility] RAD[facility]OLOGY DEPARTMENT: Mammography PERIPHERAL IV DATA: Not applicable SIGNED BY: Omaira Crowell November 26, 2023 10:59 AM documented in this encounterCinc[place] [facility]07-15-2024 NoteHNO ID: [id number] Author: JANES SELLERS Mammo Tech Service: ? Author Type: Otr Owner Operator Type: Progress Notes Filed: 11/26/2023 11:16 Note Text: Radiology Service Progress Note PATIENT NAME: Suleiman Ramsey DATE OF SERVICE: November 26, 2023 TIME: 10:59 AM PATIENT IDENTITY VERIFICATION COMPLETED USING TWO (2) IDENTIFIERS: Name and Date of confirmed by patient verbally. FALL SCREENING: Has the patient had 2 falls in the last year or 1 fall with injury or currently using an Ambulatory Assistive Device (Walker, Cane, Wheelchair, Crutches, etc.)? No PATIENT GENDER DATA: Female. status: : No status: NO. PATIENT RELEVANT IMPLANT DATA REVIEWED: Not Applicable PATIENT PRESENTS WITH AN IMPLANTABLE OR ATTACHED LIFE ENRICHMENT MANAGER: Yes [facility] RADIOLOGY DEPARTMENT: Mammography PERIPHERAL IV DATA: Not applicable SIGNED BY: Omaira Crowell November 26, 2023 10:59 [facility]06-26-2024 Telephone encounter Note* Telephone Encounter - María Jenkins LPN - 11/07/2023 11:12 AM EDT Note faxed as requested. María Jenkins LPN [place] [facility]06-26-2024 Miscellaneous Notes* Telephone Encounter - María Jenkins LPN - 11/07/2023 11:12 AM EDT Note faxed as requested. María Jenkins LPN * Telephone Encounter - Kori Mohamud - 11/07/2023 10:48 AM EDT Please fax office visit note from 08/02 to PCP office at [phone]. documented in this encounterCinc[place] [facility]06-26-2024 Telephone encounter Note * Telephone Encounter - Kori Mohamud - 11/07/2023 10:48 AM EDT Please fax office visit note from 08/02 to PCP office at [phone]. [facility] Work Phone: 1(124) 671-866304-05-2024 Nurse Note* Brandy Morales LPN - 08/17/2023 1:38 PM EDT Follow up Last mammogram on: 11/10/22 bilateral Results: see report Is the patient active on [employer] Yes Electronically Signed By: Brandy Morales LPN In Department: GENERAL SURGERY REVIEW OF [...] Types: Cigarettes Quit date: 05/14/1980 Years since quittin.2 Smokeless tobacco: Never Vaping Use Vaping Use: Never used Substance Use Topics Alcohol use: Yes Comment: one a Year Drug use: No documented in this encounterCinc[place] [facility]04-05-2024 History of Present illness Narrative* Alex Danielle PA-C - 08/17/2023 1:30 PM EDT REASON FOR TODAY'S VISIT: Patient presents with: Established Patient HISTORY of PRESENT ILLNESS: Suleiman Ramsey, 77 year old year old female, s/p a RIGHT mastectomy, RIGHT sentinel lymph node mapping and biopsy (No reconstruction) performed by Dr. Parkinson (Breast Surgeon) on 01/09/2023 Final pathology reports IDC, 7.0 cm (margins clear), Grade 3, 0/2 LN, -LVI ER+, CA+, HER2- PATHOLOGICAL STAGE RIGHT BREAST: p,T3,N0 Small post op seroma, patient declines aspiration at this time. HISTORY: Patient was last seen for a seroma check on 02/09/2023. At that time, she was healing well and had a small seroma in the RIGHT surgical site, but declined aspiration. In the interim, she consulted with Dr. Chowdhury (Medical Oncologist) who reviewed the pathology findings and health history/functional status and did not recommended adjuvant chemotherapy, but did discuss AI post radiation treatments. Underwent adjuvant Radiation treatments to the right side from 02/26/23 - 03/30/[address] Childs (Radiation Oncologist). Reports she has healed well. She began Arimidex in 04/2023, but stopped it one month later d/t joint pain. Patient began the medication on 08/13/2023 Last bilateral mammogram was on 11/10/2022 ROS: HEENT: Denies vision changes or headaches BREAST: Denies palpating any new breast masses, no breast/chest wall pain, no skin changes, no nipple discharge ABD: Denies any abdominal pain or new changes in bowel habits MUSCULOSKELETAL: Denies any bone, joint or muscle pain EXAMINATION: GEN alert and orientated, well nourished, calm Regional Lymph Nodes There is no concerning supraclavicular, infraclavicular or cervical lymphadenopathy. BREASTS: The patient was examined in the upright and supine position. RIGHT breast surgically absent with incision healing well. Soft, no dominant masses, no nipple, no discharge, no skin changes RIGHT axilla no palpable axillary lymphadenopathy LEFT breast soft, pendulous No dominant masses, nipple everted, no discharge, no skin changes LEFT axilla no palpable axillary lymphadenopathy ABD soft, non-distended, non-tender, no organomegaly EXT ambulated independently, good ROM of upper extremities, no evidence of lymphedema IMPRESSION: Suleiman Ramsey, 77 year old year old female, s/p a RIGHT mastectomy, RIGHT sentinel lymph node mapping and biopsy (No reconstruction) performed by Dr. Parkinson (Breast Surgeon) on 01/09/2023 Final pathology reports IDC, 7.0 cm (margins clear), Grade 3, 0/2 LN, -LVI ER+, CA+, HER2- PATHOLOGICAL STAGE RIGHT BREAST: p,T3,N0 No clinical evidence of disease process today PLAN: LEFT sided mammogram is indicated in 11/2023. Instructed on how to perform a breast/chest wall monthly examination. Ms. Ramsey will follow-up with Ms Wilkinson (Medical Oncology) as scheduled, 12/11/2023. She will follow-up with Dr. Dwight Barry (Radiation Oncologist) on as needed basis. Ms. Ramsey will follow-up with us in 6 months.. She has our names and numbers to stay in touch if she has any questions, concerns or problems in the interim. I spent a total of 20 minutes on the date of the service which included preparing to see the patient, [id number] patient care, completing clinical documentation, obtaining and/or reviewing separately obtained history, performing a medically appropriate examination, counseling and educating the pat ient/family/caregiver, and ordering medications, tests, or procedures. Alex Danielle PA-C cc: Micki Parkinson, DO Breast Surgeon Benny Bosch MD [address] [facility] [address] [facility] [address] Benny Bosch MD [address] [facility] [address] [place] [address] documented in this encounterCinc[place] [facility]03-22-2024 History of Present illness Narrative* Susan Wilkinson APRN.LUMPIA WRAPPER MAKER - 08/03/2023 9:16 AM EDT Chief Complaint Patient presents with: Established Patient HPI: Suleiman Ramsey is a 77 year old female who presents here today for follow up breast cancer. Per Dr. Chowdhury's previous note: H/o hypertension, left bundle branch block, hypercholesterolemia, hypothyroidism, diabetes, atrophic vaginitis and rosacea. Patient noted a mass in her right breast approximately 6 months prior to presentation. She was seenby her day habilitation specialist to confirm the presence of a mass. She underwent a bilateral diagnostic mammogram with a right-sided ultrasound at [facility] 11/10/2022. The ultrasound demonstrated that the [...] 2/3. ER (clone 6F11) >95% , strong CA (clone 16/1E2) 80%, weak to moderate Her-2Neu (clone CB11) 1 - 2+ (equivocal) Patient had a CT of the chest, abdomen pelvis on 11/29/2022 at [facility]. There was a group of nodular soft tissue densities in the right breast. Small postbiopsy microclip was visualized. There was no findings suggestive of metastatic disease in the chest, abdomen pelvis. There is old calcified granulomatous disease with subcarinal adenopathy. Stable, bulbous appearance of the uterus was also observed.Clinical suspicion for fibroid. Stable, extensive degenerative changes [...] had a bone scan on 12/04/2022 at [facility]. That study demonstrated increased uptake in the left anterior lateral fifth and sixth ribs consistent with trauma/fracture. There was no definitescintigraphic evidence of diffuse skeletal metastatic disease. Repeat [...] of no special type (ductal) Histologic Grade ([place] Histologic Score) Glandular (Acinar) / Tubular Differentiation [...] Examined (sentinel and non-sentinel) 2 Number of [place] Nodes Examined 2 pTNM CLASSIFICATION (AJCC 8th Edition) Reporting of pT, pN, and (when applicable) pM categories is based on information available to the pathologist at the time the report is issued. As per the AJCC (Chapter 1, 8th Ed.) it is the managingphysician s responsibility to establish the final pathologic [...] (not amplified) RADIATION: 02/26/23 - 03/30/23 Current therapy:Arimidex Began mid April 2023. Zometa first dose 04/03/23 Pt. stopped arimidex about a month after starting it. My hands and feet really hurt and just all over achiness. +covid and now has a sinus infection being treated by PCP. Appetite:Comes and goes. Energy level:Not really. It's on the floor. Denies fevers. Resp:+cough sporadically. 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 Past medical history, appointments, medications, allergies reviewed. No changes. EXAM: BP 146/84 Pulse 75 Temp 36.7 C (98.1 F) (Temporal) Wt 78.5 kg (173 lb) SpO2 97% BMI 32.87kg/m APPEARANCE fatigued appearing, alert, in no acute distress, well-hydrated, well nourished. HEART RRR with normal S1 and S2, no murmurs LUNG clear to auscultation BREAST FEMALE R mastectomy scar no nodule LYMPH NODES No cervical lymphadenopathy, No supraclavicular lymphadenopathy, and No axillary lymphadenopathy. ABDOMEN bowel sounds normoactive, soft, non-tender EXTREMITIES No edema NEURO Awake, alert and oriented x 3, Normal gait, and No involuntary motions. SKIN Skin color, texture, turgor normal, no suspicious rashes or lesions ASSESSMENT/PLAN: 1. Malignant neoplasm of upper-inner quadrant of right breast in female, estrogen receptor positive(HCC) - ICD9: 174.2, V86.0, ICD10: C50.211, Z17.0 pT3 pN0 M0 grade 3 ER/CA positive, HER2 nonamplified pathologic stage IIA invasive ductal carcinomaof the right breast. Based on her age, comorbid conditions and functional status, not a candidate for adjuvant chemotherapy. - Tolerated radiation well overall. - No new concerning findings on exam. - Stopped Arimidex after taking it for a month d/t hand/foot/joint stiffness/aches. She did not call the office. - Pt. plans to restart arimidex after sinusitis resolves. - Continue zometa every 6 months with BMP for a total of 6 doses pending tolerance. Next as scheduled in September. - Follow up in 3-4 months. - Pt. aware to call office with any question/concerns. The patient indicates understanding of these issues and agrees with the plan. All documentation from previous visit of 04/20/23-Dr. Chowdhury/myself was copied and pasted, documentation has been reviewed and edited as necessary for today's visit. Susan Wilkinson APRN.WHIT documented in this encounterCincinnati Children'[facility]02-09-2024 Miscellaneous Notes* Telephone Encounter - Susan Wilkinson APRN.CNP - 06/22/2023 1:17 PM EST Spoke with daughter. Pt. will hold arimidex until OV and will discuss plan at that time. Susan Wilkinson APRN.WHIT * Telephone Encounter - Ruth Pearce - 06/22/2023 10:17 AM EST Daughter returned call and received the previous message. Daughter states that she frequently visits the patient and she has not complained of any side effects. Daughter believes patient was improving with medication. She is wanting to discuss with care team before changing patient's medication regiment. Please contact daughter to discuss plan of care. * Telephone Encounter - Tatiana Cross LPN - 06/22/2023 8:19 AM EST Spoke with pt. Who was having a difficult time hearing. Informed I would speak with her daughter(Gama) Left detailed message on [employer] concerning pt. Holding her Arimidex and re-evaluate at next OV. Also sent information to them via my chart. Tatiana Cross LPN * Telephone Encounter - Susan Wilkinson APRN.CNP - 06/22/2023 7:40 AM EST Please advise pt. to hold arimidex until her OV. We can discuss options and her symptoms at that time. Thank you. Susan Wilkinson APRN.CNP * Telephone Encounter - Luisana Jasso LPN - 06/21/2023 3:32 PM EST She states symptoms started the entire time she has been on the medication. The pain has gotten worse over the course of the medication. She states she is not sleeping well. She wakes often through the night. Very tired throughout the day. She tries to stay awake so she can sleep at night. The painin her feet keep her awake. No numbness or tingling, just pain. Stinging sensation when she walks, s hoes are very uncomfortable. This is the first AI she has tried. next follow up 07/20/23. She wants to come off the medication for a couple weeks to see how she feels then maybe try something else. Lucien Cho. Luisana Jasso LPN * Telephone Encounter - Kori Mohamud - 06/21/2023 3:25 PM EST Patient called stating that her medication Anastrozole is making her miserable. Hands and feet hurt. Extreme fatigue. Unsteady on feet. documented in this encounterCincinnati [facility]12-14-2023 History of Present illness Narrative* Joy Barry MD, - 04/26/2023 1:22 PM EST AMBULATORY TELEPHONE VISIT Suleiman Rasmey has consented to this telephone encounter. Persons Present: patient Chief Complaint/Reason: Four week follow-up after radiation treatment. 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 It's ER positive (>90%, strong), CA positive (40%, weak to moderate) and Her2 2+ and FISH negative. s/p radiation treatment finished on 03/30/23. She reports that she continues to have discomfort in the right chest wall. Redness is improving. Noskin breakdown. Data Reviewed: None. Assessment: She is recovering slowly from acute radiation dermatitis. Plan: Continue skin care. I will see her in two weeks for a follow-up. Total Time Spent: 5 minutes Joy Barry MD documented in this encounterCincinnati Children'[facility]12-08-2023 Miscellaneous Notes* Telephone Encounter - Jesica Triplett - 04/20/2023 2:29 PM EST Please update orders as they are still Q3MO Please advise if Next treatment on 06/27/23 should stay as scheduled or should be pushed out. * Telephone Encounter - Susan Wilkinson APRN.CNP - 04/20/2023 1:11 PM EST Please see my chart message. Plan for zometa every 6 months with BMP x6 doses. Pt. has already received one dose. Please update schedule. Thank you. Susan Wilkinson APRN.WHIT documented in this encounterCincinnati Children'[facility]12-08-2023 History of Present illness Narrative* Karen Briones RN - 04/20/2023 1:23 PM EST CASE [id number] ([id number]): Tissue and Body [...] draw. Karen Briones RN documented in this encounterCincinnati Children'[facility]12-08-2023 History of Present illness Narrative* Susan Wilkinson APRN.CNP - 04/20/2023 11:02 AM EST Chief Complaint Patient presents with: Established Patient HPI: Suleiman Ramsey is a 77 year old female who presents here today for SCP/breast cancer. Per Dr. Chowdhury's previous note: H/o hypertension, left bundle branch block, hypercholesterolemia, hypothyroidism, diabetes, atrophic vaginitis and rosacea. Patient noted a mass in her right breast approximately 6 months prior to presentation. She was seenby her day habilitation specialist to confirm the presence of a mass. She underwent a bilateral diagnostic mammogram with a right-sided ultrasound at [facility] 11/10/2022. The ultrasound demonstrated that the [...] 2/3. ER (clone 6F11) >95% , strong CA (clone 16/1E2) 80%, weak to moderate Her-2Neu (clone CB11) 1 - 2+ (equivocal) Patient had a CT of the chest, abdomen pelvis on 11/29/2022 at [facility]. There was a group of nodular soft tissue densities in the right breast. Small postbiopsy microclip was visualized. There was no findings suggestive of metastatic disease in the chest, abdomen pelvis. There is old calcified granulomatous disease with subcarinal adenopathy. Stable, bulbous appearance of the uterus was also observed.Clinical suspicion for fibroid. Stable, extensive degenerative changes [...] had a bone scan on 12/04/2022 at [facility]. That study demonstrated increased uptake in the left anterior lateral fifth and sixth ribs consistent with trauma/fracture. There was no definitescintigraphic evidence of diffuse skeletal metastatic disease. Repeat [...] of no special type (ductal) Histologic Grade ([place] Histologic Score) Glandular (Acinar) / Tubular Differentiation [...] Examined (sentinel and non-sentinel) 2 Number of [place] Nodes Examined 2 pTNM CLASSIFICATION (AJCC 8th Edition) Reporting of pT, pN, and (when applicable) pM categories is based on information available to the pathologist at the time the report is issued. As per the AJCC (Chapter 1, 8th Ed.) it is the managingphysician s responsibility to establish the final pathologic [...] 04/03/23 Pt. here today with her daughter. Appetite:Disgustingly good. Energy level:I'm tired a lot. Denies fevers or recent [...] of right breast in female, estrogen receptor positive(HCC) - ICD9: 174.2, V86.0, ICD10: C50.211, Z17.0 pT3 pN0 M0 grade 3 ER/CA positive, HER2 nonamplified pathologic stage IIA invasive ductal carcinomaof the right breast. Based on her age, [...] 02/02/23-Dr. Chowdhury was copied and pasted, documentation hasbeen reviewed and edited as necessary for today's visit. Susan Wilkinson APRN.LUMPIA WRAPPER MAKER documented in this encounterCincinnati Children'[facility]12-08-2023 Nurse Note* Tatiana Cross LPN - 04/20/2023 10:59 AM EST Est. Pt, discuss SCP Tatiana Cross LPN documented in this encounterCincinnati Children'S [facility]11-20-2023 Miscellaneous Notes* Telephone Encounter - María Jenkins LPN - 04/02/2023 4:41 PM EST Dental clearance received from [facility] and sent to scanning. Patient is aware to come for appointment tomorrow. María Jenkins LPN * Telephone Encounter - Benji ArinShereen - 04/02/2023 2:42 PM EST I called and spoke to patient and scheduled her for an SCP visit with Susan on 04/20/2023 at 11:00 am, patient confirmed this date and time. She had questions about why the dental clearance was neededto start Zometa tomorrow and I let her know the answer via a messaging conversation with the nurse.Patient stated understanding and will plan to be here tomorrow at 9:30 am unless she hears something else from us today Shereen Leblanc Pss * Telephone Encounter - María Jenkins LPN - 04/02/2023 1:51 PM EST PSS- please reschedule today's missed OV to a SCP OV with Susan AFTER radiation is completed. Patient came in today and had labs, missed OV with Dr. Chowdhury. Patient is scheduled for Zometa tomorrow but does not have dental clearance. I spoke with the patient and she did have a dental cleaning last month at [facility]. Their fax machine is down so I emailed a dental clearance form to their office. Will leave appointment as scheduled and await clearance form. María Jenkins LPN documented in this encounterCincinnati Children'S [facility]11-17-2023 Nurse Note* Elizabeth Villalta RN - 03/30/2023 10:12 AM EST Written discharge instructions given and reviewed with patient. Patient verbalizes understanding. Encouraged to call with any questions or concerns. Instruction for 4 week phone call follow up appointment given by Dr. Barry. 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 It's ER positive (>90%, strong), CA positive (40%,weak to moderate) and Her2 2+ and FISH negative. DELIVERED DOSE: 5000 cGy in 25 fractions treating to the 100,95% isodose line with 6,10,15 MV and 5segmented mccollum. ELAPSED TIME: 32 days. TOLERANCE/ RESPONSE: Right chest wall mild erythema. No desquamation. REMARKS: She tolerated radiation treatment well. Four week follow-up with me. Staff Physician JOY BARRY M.D. / 310:42 AM Electronically Signed cc: MD Edna Lomax [address] [place] [address] Bobby Parkinson documented in this encounterCincinnati Children'S [facility] Center11-14-2023 Nurse Note* Elizabeth Villalta RN - 03/27/2023 10:13 AM EST Radiation Therapy - Nursing Note (OTV) PATIENT NAME: Suleiman Ramsey PATIENT March 27, 2023 [facility] FACILITY/LOCATION: [place] NURSING NOTE TYPE: BREAST Subjective Data no new complaints Additional Data Do you want to see a Knowledge Analyst? No Status: Post-menopausal. Stress Scale: On a scale of 0 to 10, what number best describes how much distress you have experienced in the past week?(0 being no distress and 10 being extreme distress) 4 Social work notified: Pt denied need to see social insurance analyst at this time. Nursing Assessment Fatigue: had [...] by: Elizabeth Villalta RN documented in this encounterCincinnati Children'S [facility] Center11-14-2023 History of Present illness Narrative* Joy Barry MD, MD - 03/27/2023 10:03 AM EST Radiation Oncology - On Treatment Review (OTR) Note PATIENT NAME: Suleiman Ramsey PATIENT DIAGNOSIS: Stage IIA, pT3 pN0 (sn), grade 3 invasive ductal carcinoma of the right breast s/p rightmastectomy and sentinel node biopsy on 01/09/23. It's ER positive (>90%, strong), CA positive (40%, weak to moderate) and Her2 [...] expected parameters. Continue radiation treatment as planned. oJy Barry MD documented in this encounterCincinnati [facility]11-07-2023 History of Present illness Narrative* Joy Barry MD, MD - 03/20/2023 10:34 AM EST Radiation Oncology - On Treatment Review (OTR) Note PATIENT NAME: Suleiman Ramsey PATIENT DIAGNOSIS: Stage IIA, pT3 pN0 (sn), grade 3 invasive ductal carcinoma of the right breast s/p rightmastectomy and sentinel node biopsy on 01/09/23. It's ER positive (>90%, strong), CA positive (40%, weak to moderate) and Her2 [...] planned. Joy Barry MD documented in this encounterCincinnati Children'[facility]11-07-2023 Nurse Note* Elizabeth Villalta RN - 03/20/2023 10:28 AM EST Radiation Therapy - Nursing Note (OTV) PATIENT NAME: Suleiman Ramsey PATIENT March 20, 2023 [facility] FACILITY/LOCATION: [place] NURSING NOTE TYPE: BREAST Subjective Data c/o some irritation in upper axiliary region thinks it is from bra she wears Additional Data Do you want to see a Knowledge Analyst? No Status: Post-menopausal. Stress Scale: On a scale of 0 to 10, what number best describes how much distress you have experienced in the past week?(0 being no distress and 10 being extreme distress) 4 Social work notified: Pt denied need to see social insurance analyst at this time. Nursing Assessment Fatigue: moderate; [...] by: Elizabeth Villalta RN documented in this encounterCincinnati Children'S [facility] Center10-31-2023 Nurse Note* Elizabeth Villalta RN - 03/13/2023 10:14 AM EDT Radiation Therapy - Nursing Note (OTV) PATIENT NAME: Suleiman Ramsey PATIENT March 13, 2023 [facility] FACILITY/LOCATION: [place] NURSING NOTE TYPE: BREAST Subjective Data concerned about a lump under scar in axilla region thinks it has been there Additional Data Do you want to see a Knowledge Analyst? Yes scheduled today Status: Post-menopausal. Stress Scale: On a scale of 0 to 10, what number best describes how much distress you have experienced in the past week?(0 being no distress and 10 being extreme distress) 4 Social work notified: Pt denied need to see social insurance analyst at this time. Nursing Assessment Fatigue: increased [...] by: Elizabeth Villalta RN documented in this encounterCincinnati Children'[facility] Center10-31-2023 History of Present illness Narrative* Joy Barry MD, MD - 03/13/2023 10:13 AM EDT Radiation Oncology - On Treatment Review (OTR) Note PATIENT NAME: Suleiman Ramsey PATIENT DIAGNOSIS: Stage IIA, pT3 pN0 (sn), grade 3 invasive ductal carcinoma of the right breast s/p rightmastectomy and sentinel node biopsy on 01/09/23. It's ER positive (>90%, strong), CA positive (40%, weak to moderate) and Her2 [...] planned. Joy Barry MD documented in this encounterCincinnati Children'[facility]10-24-2023 Nurse Note* Elizabeth Villalta RN - 03/06/2023 10:30 AM EDT Radiation Therapy - Nursing Note (OTV) PATIENT NAME: Suleiman Ramsey PATIENT March 06, 2023 [facility] FACILITY/LOCATION: [place] NURSING NOTE TYPE: BREAST Subjective Data no complaints Additional Data Do you want to see a Knowledge Analyst? No Status: Post-menopausal. Stress Scale: On a scale of 0 to 10, what number best describes how much distress you have experienced in the past week?(0 being no distress and 10 being extreme distress) 4 Social work notified: Pt denied need to see social insurance analyst at this time. 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 It's ER positive (>90%, strong), CA positive (40%, weak to moderate) and Her2 [...] planned. Joy Barry MD documented in this encounterCincinnati Children'[facility]10-17-2023 History of Present illness Narrative* Brittany Olvera, RD - 02/27/2023 2:32 PM EDT Oncology Nutrition Therapy Initial Assessment I have communicated my name and active licensure. The patient's identity and physical location wereverified at the time of this visit. Either the patient or their legal customer development representative has been informed of the risks and benefits of -- and alternatives to -- treatment through a remote evaluation andconsents to proceed with the evaluation remotely. RECOMMENDED MALNUTRITION DIAGNOSIS: NO MALNUTRITION IDENTIFIED Nutrition Diagnosis: Inconsistent carbohydrate intake, related to, lifestyle factors that interferewith the ability to regulate timing of carbohydrate [...] 6 months prior to presentation. She was seenby her day habilitation specialist to confirm the presence of a mass. She underwent a bilateral diagnostic mammogram with a right-sided ultrasound at [facility] 11/10/2022. The ultrasound demonstrated that the [...] Encouraged her to eat two good meals eachday and have healthy snacks. Reviewed list of [...] Readings: Date: Ht: 02/02/2023 154.5 cm (5' 0.83) Current weight: Last 1 Encounter Wt Readings: Date: Wt: 02/02/2023 78 kg (172 lb) Estimated body mass index is 32.68 kg/m as calculated from the following: Height as of 02/02/23: 154.5 cm (5' 0.83). Weight as of 02/02/23: 78 kg (172 lb). Resting Metabolic Rate: 1205 Weight Change: no changes Dosing Weight: 78 kg Estimated kilocalorie needs: 1547-7593 kilocalories determined by 20-25 kcal/kg Estimated protein [...] Brittany Olvera RD, LD documented in this encounterCincinnati Children'S [facility]10-17-2023 Nurse Note* Elizabeth Villalta RN - 02/27/2023 10:14 AM EDT Radiation Therapy - Nursing Note (OTV) PATIENT NAME: Suleiman Ramsey PATIENT February 27, 2023 [facility] FACILITY/LOCATION: [place] NURSING NOTE TYPE: BREAST Subjective Data no complaints Additional Data Do you want to see a Knowledge Analyst? Yes will assist having trouble with blood sugar Status: Post-menopausal. Stress Scale: On a scale of 0 to 10, what number best describes how much distress you have experienced in the past week?(0 being no distress and 10 being extreme distress) 5 Social work notified: Pt denied need to see social insurance analyst at this time. Nursing Assessment Fatigue: none [...] by: Elizabeth Villalta RN documented in this encounterCincinnati Children'S [facility] Center10-17-2023 History of Present illness Narrative* Joy Barry MD, - 02/27/2023 10:11 AM EDT Radiation Oncology - On Treatment Review (OTR) Note PATIENT NAME: Suleiman Ramsey PATIENT DIAGNOSIS: Stage IIA, pT3 pN0 (sn), grade 3 invasive ductal carcinoma of the right breast s/p rightmastectomy and sentinel node biopsy on 01/09/23. It's ER positive (>90%, strong), CA positive (40%, weak to moderate) and Her2 [...] planned. Joy Barry MD documented in this encounterCincinnati Children'S [facility] Center10-14-2023 NoteHNO ID: [id number] Author: Note, Interface Service: ? Author Type: ? Type: Progress Notes Filed: 02/24/2023 3:31 AM Note Text: Epic Scheduled Downtime: 02/24/2023 1:00:00 AM to 02/24/2023 1:28:00 [facility]10-12-2023 Nurse Note* Gracie Adam RN - 02/22/2023 11:22 AM EDT Radiation Therapy - Patient Education Note PATIENT NAME: Suleiman Ramsey PATIENT February 22, 2023 [facility] FACILITY/LOCATION: [place] READINESS TO LEARN Cognitive Ability: Alert and [...] and family verbalized understanding of radiation treatments, sideeffects, OTV, and transportation. Follow-up plan: Patient instructed to call with any further issues Contact information given. Supplemental material: Informational handouts on Department phone list, [facility], and [place] instructions, XRT sheet and [employer] handout. Referral (recommendation): None, Pt denied need for social work, van service, and business services manager. Was approved? unknown Signed by: Gracie Adam RN documented in this encounterCincinnati Children'S [facility] Center10-12-2023 History of Present illness Narrative* Joy Barry MD, - 02/22/2023 12:00 AM EDT SULEIMAN RAMSEY [id number] 02/22/2023 [facility] Department of Radiation Oncology [facility] RADIATION ONCOLOGY SIMULATION NOTE DATE OF SIMULATION: 02/22/2023 MACHINE: Siemens Definition CT Simulator Diagnosis: Stage IIA, pT3 pN0 (sn), grade 3 invasive ductal carcinoma of the right breast s/p rightmastectomy and sentinel node biopsy on 01/09/23. It's ER positive (>90%, strong), CA positive (40%, weak to moderate) and Her2 [...] a verification simulation on the treatment machine toensure proper set-up and field arrangement is correct prior to the first treatment of primary and boost mccollum if applicable. Electronically Signed Joy Barry M.D./too 0:17 AM documented in this encounterCincinnati Children'S [facility] Center10-12-2023 History of Present illness Narrative* Joy Barry MD, MD - 02/22/2023 12:00 AM EDT SULEIMAN RAMSEY [id number] 02/22/2023 [facility] Department of Radiation Oncology Treatment Planning Note For reasons stated in the consult note, Suleiman Ramsey is a candidate for radiation therapy. Basedon review and interpretation of the relevant diagnostic [...] Barry M.D. 0:16 AM documented in this encounterCincinnati Children'S [facility] Center09-29-2023 NoteHNO ID: [id number] Author: Alex Danielle PA-C Service: ? Author Type: Physician Physician Neonatology Type: Progress Notes Filed: 02/19/2023 2:24 PM [...] clear), Grade 3, 0/2 LN, -LVI ER+, CA+, HER2- PATHOLOGICAL STAGE RIGHT BREAST: p,T3,N0 Small [...] and discomfort She will follow-up with Dr. Childs (Radiation Oncologist) as scheduled 02/22/2023, for a simulation planning. Ms. Ramsey should return for a wound/seroma check in 2 weeks (sooner if needed). She has our names and numbers to stay in touch if there are any questions, concerns or problems. [facility]09-22-2023 History of Present illness Narrative* Joy Barry MD, MD - 02/02/2023 2:26 PM EDT Radiation Oncology - New Patient/Consult Note PATIENT NAME: Suleiman Ramsey PATIENT REQUESTING PROVIDER: Dr. Bobby Chowdhury DIAGNOSIS: Stage IIA, pT3 pN0 (sn), grade 3 invasive ductal carcinoma of the right breast s/p rightmastectomy and sentinel node biopsy on 01/09/23. It's ER positive (>90%, strong), CA positive (40%, weak to moderate) and Her2 [...] cm. US showed multiple irregular, hypoechoic masses inthe right upper inner quadrant. The largest imaged region is at the 1:00 position, 12 cm from the nipple, measuring 1.4 x 2.7 x 1 cm. US of the right axilla showed benign nodes. US guided core biopsy of the right breast lesion on 11/15/22 showed grade 2 invasive ductal carcinoma. It's ER positive (>90%, strong), CA positive (40%, weak to moderate) and Her2 2+ and FISH negative. Staging CT C/A/P on 11/29/22 and bone scan on 12/04/22 were all negative for distant metastases. She underwent right mastectomy and sentinel node biopsy on 01/09/23. Pathology showed grade 3 invasive ductal carcinoma measuring 70 mm with negative surgical margins. 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 The closest margin was 7 mm [...] by mouth twice daily. cholecalciferol, vitamin D3, (D3-1999 ORAL) diphenhydrAMINE (BENADRYL) 25 mg capsule Take [...] on 01/09/23. It's ER positive (>90%, strong), CA positive (40%, weak to moderate) and Her2 [...] that other personnel such as radiation therapists, warehouse general laborer, and physicists will partici castorena in planning and delivery of radiation treatment. [...] MD cc: Benny Bosch MD [address] [facility] [place] [address] Bobby Parkinson documented in this encounterCincinnati Children'S Hospital [facility] Center09-22-2023 Nurse Note* Gracie Adam RN - 02/02/2023 2:24 PM EDT Radiation Therapy - Nursing Note (Consult) PATIENT NAME: Suleiman Ramsey PATIENT February 02, 2023 [facility] FACILITY/LOCATION: [place] Chief Complaint: consult Reason for visit: Consult. Referring physician: Internal provider Dr Parkinson Subjective Data: see pain assessment Additional Data Do you want to see a Knowledge Analyst? No Are you interested in information about fertility? No Status: Post-menopausal Stress Scale: On a scale of 0 to 10, what number best describes how much distress you have experienced in the past week?(0 being no distress and 10 being extreme distress) 4 Social work notified: Pt denied need to see social insurance analyst at this time. SIGNED by: Gracie Adam RN documented in this encounterCincinnati Children'S Hospital [facility] Center09-22-2023 History of Present illness Narrative* Bobby Chowdhury DO - 02/02/2023 1:30 PM EDT Patient referred by Dr. Parkinson for breast [...] 6 months prior to presentation. She was seenby her day habilitation specialist to confirm the presence of a mass. She underwent a bilateral diagnostic mammogram with a right-sided ultrasound at [facility] 11/10/2022. The ultrasound demonstrated that the [...] 2/3. ER (clone 6F11) >95% , strong CA (clone 16/1E2) 80%, weak to moderate Her-2Neu (clone CB11) 1 - 2+ (equivocal) Patient had a CT of the chest, abdomen pelvis on 11/29/2022 at [facility]. There was a group of nodular soft tissue densities in the right breast. Small postbiopsy microclip was visualized. There was no findings suggestive of metastatic disease in the chest, abdomen pelvis. There is old calcified granulomatous disease with subcarinal adenopathy. Stable, bulbous appearance of the uterus was also observed.Clinical suspicion for fibroid. Stable, extensive degenerative changes [...] had a bone scan on 12/04/2022 at [facility]. That study demonstrated increased uptake in the left anterior lateral fifth and sixth ribs consistent with trauma/fracture. There was no definitescintigraphic evidence of diffuse skeletal metastatic disease. Repeat [...] of no special type (ductal) Histologic Grade ([place] Histologic Score) Glandular (Acinar) / Tubular Differentiation [...] Examined (sentinel and non-sentinel) 2 Number of Selma Nodes Examined 2 pTNM CLASSIFICATION (AJCC 8th Edition) Reporting of pT, pN, and (when applicable) pM categories is based on information available to the pathologist at the time the report is issued. As per the AJCC (Chapter 1, 8th Ed.) it is the managingphysician s responsibility to establish the final pathologic [...] C (98 F), height 154.5 cm (5' 0.83), weight 78 kg (172 lb), SpO2 97 [...] diagnosis) Assessment: -pT3 pN0 M0 grade 3 ER/CA positive, HER2 nonamplified pathologic stage IIA invasive [...] which included preparing to see the patient, lyim-sv-omrt patient care, completing clinical documentation, obtaining and/or reviewing separately obtained history, performing a medically appropriate examination, counseling and educating the pat ient/family/caregiver, communicating with other HCPs (not separately reported), and communicating results to the patient/family/caregiver. Bobby Chowdhury DO documented in this encounterCincinnati Children'S Hospital [facility] Center09-15-2023 NoteHNO ID: [id number] Author: Alex Danielle PA-C Service: ? Author Type: Physician Physician Neonatology Type: Progress Notes Filed: 01/26/2023 11:10 AM [...] any questions or concerns in the interim. [facility]09-15-2023 Nurse Note* Brandy Morales LPN - 01/26/2023 11:09 AM EDT Drain removal Last mammogram on: 11/10/22 bilateral Results: see report Electronically Signed By: Brandy Morales LPN In Department: GENERAL SURGERY REVIEW OF [...] Year Drug use: No documented in this encounterCincinnati Children'S Hospital [facility] Center09-15-2023 History of Present illness Narrative* Alex Danielle PA-C - 01/26/2023 10:50 AM EDT This is a 77 year old female [...] interim. Alex Danielle PA-C documented in this encounterCincinnati Children'S Hospital [facility] Center09-08-2023 NoteHNO ID: [id number] Author: Alex Danielle PA-C Service: ? Author Type: Physician Physician Neonatology Type: Progress Notes Filed: 01/19/2023 3:14 PM [...] of no special type (ductal) Histologic Grade ([place] Histologic Score) Glandular (Acinar) / Tubular Differentiation [...] Examined (sentinel and non-sentinel) 2 Number of Selma Nodes Examined 2 pTNM CLASSIFICATION (AJCC 8th [...] Negative (not amplified) Testing Performed on Comment(s) 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 ASSESSMENT: Suleiman Ramsey, 77 year old year old female, s/p a RIGHT mastectomy, RIGHT sentinel lymph node mapping and biopsy (No reconstruction) performed by Dr. Parkinson (Breast Surgeon) on 01/09/2023 Final pathology reports IDC, 7.0 cm (margins clear), Grade 3, 0/2 LN, -LVI ER+, CA+, HER2- PATHOLOGICAL STAGE RIGHT BREAST: p,T3,N0 POST OPERATIVE STATUS: Uncomplicated post-operative course, Patient initially presented on with (more content not included)... [facility] CenterFlrnktoi05-07-6766 Nurse Note* Brandy Morales LPN - 01/19/2023 1:20 PM EDT Post op Last mammogram on: 11/10/22 bilateral Results: see report Is the patient active on [employer] Yes Electronically Signed By: Brandy Morales LPN In Department: GENERAL SURGERY REVIEW OF [...] Year Drug use: No documented in this encounterCincinnati Children'S [facility] Center09-08-2023 History of Present illness Narrative* Alex Danielle PA-C - 01/19/2023 1:00 PM EDT BREAST CANCER POST OPERATIVE FOLLOW-UP SERVICE DATE: [...] Examined (sentinel and non-sentinel) 2 Number of Selma Nodes Examined 2 pTNM CLASSIFICATION (AJCC 8th Edition) Reporting of pT, pN, and (when applicable) pM categories is based on information available to the pathologist at the time the report is issued. As per the AJCC (Chapter 1, 8th Ed.) it is the managingphysician s responsibility to establish the final pathologic [...] Negative (not amplified) Testing Performed on Comment(s) 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 ASSESSMENT: Suleiman Ramsey, 77 year old year old female, s/p a RIGHT mastectomy, RIGHT sentinel lymph node mapping and biopsy (No reconstruction) performed by Dr. Parkinson (Breast Surgeon) on 01/09/2023 Final pathology reports IDC, 7.0 cm (margins clear), Grade 3, 0/2 LN, -LVI ER+, CA+, HER2- PATHOLOGICAL STAGE RIGHT BREAST: p,T3,N0 POST OPERATIVE STATUS: Uncomplicated post-operative course, Patient initially presented on with a RIGHT breast 6.8 cm span of disease @ 1:00. LN appear normal. Bx (ribbon clip) shows IDC, NG 2. ER+CA+HER2- [id number] PLAN Pathology report reviewed by (Breast Surgeon) and with the patient. All questions were answered and she had no further concerns. Instructions for wound management, the signs and symptoms of infection, and seroma development werereviewed with the patient. will follow-up with Dr. [...] interim. Alex Danielle PA-C documented in this encounterCincinnati Children'S [facility] Center08-31-2023 Miscellaneous Notes* Telephone Encounter - Keila Gdooy RN - 01/11/2023 10:58 AM EDT BREAST HEALTH NURSE POST-OP PHONE CONTACT: Suleiman Ramsey was contacted via telephone as follow-up from recent breast surgery. I spoke withher daughter as pt was sleeping at the time of this call. TOPICS ADDRESSED: PAIN ASSESSMENT: Yes LOCATION: surgical incisions PAIN CHARACTER: aching MEDICATIONS: Took one [place] last night at HS, otherwise Tylenol prn [...] scheduled with NOVA Armijo documented in this encounterCincinnati Children'S Hospital [facility] Center08-30-2023 NoteEducation (GENSF) SULEIMAN RAMSEY ([id number]) 1945 F Date Time Provider Department 01/10/23 [...] (RASHAD x 1). 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 Patient has SÁNCHEZ wrap for dressing. Patient has gift bag and drain pouch. Breast nurse navigator will follow-up tomorrow by phone for post-op assessment. All questions answered. Radha Bowers RN Allergies As of Date: 01/10/2023 (No Known Allergies) Date Reviewed: 01/09/2023 Reviewed by: Cathy Villa RN - Fully Assessed Reason for Visit: [...] T36.4X5A] 09/21/2010 06/09/2012 Depre (more content not included)...[facility] CenterTkyxtvdw23-90-6047 NoteHNO ID: [id number] Author: Ivonne Anderson RN Service: Nursing Author Type: Registered Nurse Type: Nursing Progress Note Filed: 01/10/2023 11:03 AM Note Text: Other: 1100- RASHAD teaching provided to pt and family both verbalize understanding. [facility] CenterXdnnroev07-95-6020 NoteHNO ID: [id number] Author: Radha Bowers RN Service: ? Author [...] (RASHAD x 1). 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 Patient has SÁNCHEZ wrap for dressing. Patient has gift bag and drain pouch. Breast nurse navigator will follow-up tomorrow by phone for post-op assessment. All questions answered. Radha Bowers, [facility]08-30-2023 NoteHNO ID: [id number] Author: Ok Connor MD Service: General Surgery [...] (Oral) Resp 17 Ht 154.9 cm (5' 1) Wt 79.3 kg (174 lb 14.4 oz) [...] TBILI 0.6 Coags No results for input(s): APTT, PT, INR in the last 08475 hours. Intake and Output: Date 01/09/23 07 - 01/10/2365801/10/23 07 - 01/11/23 0659 Shift 1097-0887 7394-3891 4504-7844 24 Hour Total 5589-9488 0223-7954 1345-5141 24 Hour Total INTAKE IV 5165 470 0971 Volume (mL) (lactated ringers iv infusion) 1200 1200 Volume (mL) (lactated ringers iv infusion) 700 700 Shift Total 6445 529 3891 OUTPUT Urine Urine Not Saved. 2 x [...] pen (long acting) 56 Units SUBCUTANEOUS AT BEDTIMEMassachusetts Mental Health CenterWgnmdjzd09-12-4635 History of Present illness Narrative* Radha Bowers RN - 01/10/2023 9:53 AM EDT Visit made to the bedside, post-op day 1. Patient sitting up in bed eating breakfast. She reports feeling well this morning, minimal discomfort. Patient hoping to go home today, eldest daughter is primary caregiver. Reviewed basic home going instructions, including: pain control, bowel management, ROM/activity, showering, incision care, signs/sx infection, nutrition/hydration, drain care (RASHAD x 1). 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 Patient has SÁNCHEZ wrap for dressing. Patient has gift bag and drain pouch. Breast nurse navigator will follow-up tomorrow by phone for post-op assessment. All questions answered. Radha Bowers RN documented in this encounterCincinnati Children'S Hospital [facility] Center08-30-2023 Miscellaneous Notes* Telephone Encounter - Kori Mohamud - 01/10/2023 8:18 AM EDT Scheduled with daughter * Telephone Encounter - Bobby Chowdhury DO - 01/10/2023 4:54 AM EDT Please schedule her as a new to see either me or Dr. Rivers in 2-3 weeks--first available in that time frame. Will also need consultation with Dr. Barry as well. Same day appointments if able. Bobby Chowdhury DO documented in this encounterCincinnati Children'S Hospital [facility] Center08-29-2023 NoteHNO ID: [id number] Author: Talat Valdez SRNA Service: ? Author Type: Student Type: Anesthesia Procedure Notes Filed: 01/09/2023 12:34 PM Note Text: ANESTHESIOLOGY PROCEDURE NOTE Airway General Information Procedure Start Time/Medication Administration: 01/09/2023 12:27 PM Patient location during procedure: OR Timeout Performed Pre-procedure: timeout performed Consent Obtained: Yes Patient identity confirmed: arm band and patient Staffing WELCOME WAGON HOST/HOSTESS: Susan Foy APRN.WELCOME WAGON HOST/HOSTESS SRNA: Talat Valdez SRNA Performed by: MATMA and WELCOME WAGON HOST/HOSTESS Indications and Patient Condition Indications for airway [...] January 09, 2023 TIME: 12:33 PM CSN: [id number] NoteEducation (GENSF) SULEIMAN RAMSEY ([id number]) 1945 F Date Time Provider Department 01/09/23 [...] 01/05/2023 Encounter Status:Closed by RADHA BOWERS on 01/09/23[facility] 01-09-2023 NoteHNO ID: [id number] Author: Radha Bowers RN Service: ? Author [...] further educational and emotional support needs. Radha Bowers, [facility]08-29-2023 NoteHNO ID: [id number] Author: Truong Richards, [employer] Service: Nuclear Medicine Author Type: Otr Owner Operator Type: Progress Notes Filed: 01/09/2023 12:46 PM [...] safety can be found using this link: [email or web address] SIGNATURE: Gypsy Lord PATIENT NAME: Suleiman Ramsey DATE: January 09, 2023 TIME: 12:44 PM PAGER/CONTACT #:[facility] [id number] History of Present illness Narrative* Radha Bowers RN - 01/09/2023 9:34 AM EDT BREAST HEALTH NURSE POST-OPERATIVE DISCHARGE INSTRUCTIONS Prior [...] needs. Radha Bowers RN documented in this encounterCincinnati Children'S Hospital [facility] Center08-29-2023 History of Present illness Narrative* Truong Richards, Gypsy Otero - 01/09/2023 9:15 AM EDT RADIOLOGY SERVICE PROGRESS NOTE SERVICE DATE: 01/09/2023 [...] creatinine assay has traceable calibration to isotope dilution- mass spectrometry. Refer to KDIGO guidelines for clinical interpretation. In patients with unstable renal function, e.g. those with acute kidney injury, the eGFRmay not accurately reflect actual GFR. P.O.C.T. RESULTS: [...] information regarding radiation safety can be found usingthis link: [email or web address] 20Diagnostic%20Nuclear%20Medicine%[email or web address] SIGNATURE: Gypsy Lord PATIENT NAME: Suleiman Ramsey DATE: January 09, 2023 TIME: 12:44 PM PAGER/CONTACT #: documented in this encounterCincinnati Children'S Hospital [facility] Center08-28-2023 Nurse Note* Brandy Morales LPN - 01/08/2023 2:42 PM EDT AMBULATORY PATIENT EDUCATION NOTE TOPIC: RIGHT simple [...] REFERRAL (RECOMMENDATION): None Electronically Signed By: Brandy Morales LPN In Department: [facility] Time spent on patient education: 20 minutes. documented in this encounterCincinnati Children'S Hospital Medical Center08-25-2023 History and physical note * Malia Acosta APRN.LUMPIA WRAPPER MAKER - 01/05/2023 2:20 PM EDT HISTORY AND PHYSICAL EXAMINATION SERVICE DATE: 01/05/2023 [...] Admin: COVID-19 vaccine, age 12+ yr, bivalent ([employer]-BIONTECH) 10/01/2021 Imm Admin: COVID-19 original vaccine, age 12+ yr, monovalent ([employer]- BIONTZyga - GREGG TOP) 03/10/2021 Imm Admin: COVID-19 [...] or other changes to the breast. Denies familyhx of breast cancer . Mammogram done, then [...] AICD/PPM, CAD, chest pain, CHF, DVT/PE, recent SC, murmur/valvular heart disease, open heart surgery and valve surgery. GI: Negative for: abdominal pain, GERD, GI bleed <30 days, hepatitis, liver disease, nausea and vomiting. : Denies kidney disease Negative for: dysuria, frequent urination, hematuria and urinary tract infection. MARBLE FINISHER: Negative for: vaginal bleeding. Endocrine: Positive for: [...] 422 QTC Calculation (Bazett) 455 Calculated P [place] 38 Calculated R [place] -31 Calculated T [place] 94 Impression SINUS RHYTHM WITH 1ST DEGREE AV BLOCK LEFT AXIS DEVIATION COMPLETE LEFT BUNDLE BRANCH BLOCK ABNORMAL ECG No results found for this or any previous visit (from the past 60217 hour(s)). Assessment Patient has the following medical [...] the past, viewed on prior EKG's from [employer] online charts. Cabral Activity Status Index: METS: [...] large neck Non-male patient STOP-Bang Score: 4 [id number] Score: [id number] Score: 0 ANESTHESIA FINDINGS: Intubation History: No [...] Thick neck: no Lip Bite Test: I Microretrognathia/Micronagthia/Recessed Chin: No DENTAL Dental findings: teeth intact. [...] instructions and voices comprehension and compliance. SIGNATURE: Maila Acosta APRN.CNP PATIENT NAME: Suleiman Ramsey DATE: January 05, 2023 TIME: 12:12 PM PAGER/CONTACT #: documented in this encounterCincinnati Children'S Hospital [facility] Center08-25-2023 Instructions* Patient Instructions* Malia Acosta APRN.CNP - 01/05/2023 12:12 PM EDT PATIENT PREOPERATIVE INSTRUCTIONS Micki Parkinson DO has scheduled you for your procedure at this [facility] center: [facility]: [phone] --[phone] [address]. Please check in on the1st floor at registration desk 6. Please read [...] Procedures: - YOU MUST HAVE A RESPONSIBLE YARD DEMURRAGE CLERK TAKE YOU HOME. A CAFE ASSOCIATE OR BUILD MASTER CANNOT BE MADE A RESPONSIBLE YARD DEMURRAGE CLERK. - We recommend that a responsible person stays with you overnight to take care of you. - You cannot stay in a hotel alone after outpatient surgery. You will not be permitted to have yoursurgery, if you do not have someone to take care of you. Please be aware that emergency situations arise, which may delay or change your surgical time. If this happens, we will notify you as soon as possible and regret any inconvenience. If you already have an Advance Directive, please fax a copy to [phone] or email to for it to be added to your chart. If you do not have an Advance Directive, you can find the appropriate form and more information at [email or web address]. We recommend that youcomplete the Advance Directive form found on the website and bring it with you the day of your surgery. It can be witnessed and scanned into your chart that day. Malia Acosta APRN.LUMPIA WRAPPER MAKER documented in this encounterCincinnati Children'S Hospital [facility] Center08-25-2023 Miscellaneous Notes* Telephone Encounter - Taqueria Gracia RN - 01/05/2023 10:38 AM EDT Left voicemail on Gama's (Suleiman's daughter) phone with my name and number to call if she has any questions or concerns about mother's surgery Sunday. documented in this encounterCincinnati Children'S Hospital Medical Center08-23-2023 History of Present illness Narrative* Alex Danielle PA-C - 01/03/2023 11:00 AM EDT REASON FOR TODAY'S VISIT: Pre-operative surgical review [...] is not indicated. Nuclear medicine injection for Selma node biopsies is scheduled for the day of surgery in the operating room. Reviewed her home medications and allergies. Reviewed her past medical history including hyperlipidemia, HTN, IDDM,hypothyroidism Spoke to patient's daughter Gama, states Ms Ramsey has day habilitation specialist named Dr. Leora Villa, ([facility]). Advise to send/fax the notes with any imtzy-operative recommendations to the office. Patient reports she takes 70 units of Toujeo insulin and 30 units of Humalog after her dinner in the evening. Discussed post-operative pain medications and alternative methods of pain control. Would like any post-operative medication e-scripted to [facility] in [place]. (Pharmacy listed in [facility]) Multiple surgical questions addressed today. She is encouraged to call or send a [employer] message with any additional question or concerns. Contact numbers reviewed for her convenience. Alex Danielle PA-C documented in this encounterCincinnati Children'S [facility] Center08-15-2023 Miscellaneous Notes* Telephone Encounter - Brandy Vaelnzuela - 12/26/2022 12:51 PM EDT Spoke to patient. Informed surgery information and appointments . And notes from her day habilitation specialist. * Telephone Encounter - Brandy Valenzuela - 12/26/2022 10:10 AM EDT Spoke to patient's daughter Gama , informed patient surgery date and appointments related to herprocedure with Dr. Parkinson on 01/09 . Family Lawyer note with recommendations needed before her mother's surgery. documented in this encounterCincinnati Children'S Hospital [facility] Center08-15-2023 Miscellaneous Notes* Telephone Encounter - Alex Danielle PA-C - 12/26/2022 9:05 AM EDT Spoke with patient who would like to proceed with RIGHT simple mastectomy, RIGHT sentinel lymph node mapping and biopsy with on 01/09/2023. Surgeon and surgical schedulers will be notified. Contact numbers reviewed for her convenience. Alex Danielle PA-C documented in this encounterCincinnati Children'S [facility] Center08-11-2023 NoteHNO ID: [id number] Author: Samuel Dinh MD Service: ? Author Type: Physician Type: Progress Notes Filed: 12/29/2022 2:01 PM Note Text: BREAST RECONSTRUCTION EVALUATION CC: Suleiman Ramsey is a 77 year old that presents today for breast reconstruction evaluation. HPI: Suleiman Ramsey is a 77 year old female with a history of RIGHT breast cancer. Diagnosis was made at [facility] by means of ultrasound-guided core biopsy of Right breast on 11/15/2022. The pathology report showed Infiltrating Ductal Carcinoma Grade 2, ER positive, CA positive, HER2 non-amplified (FISH). She has a [...] INITIAL/REPEAT 1991 for dysplasia CONIZATION CERVIX W/WO DANCA RPR ELTRD EXC LEEP-Cervix Cervicitis only found [...] Take one(1) tablet d (more content not included)...[facility] CenterKnqrkylv13-13-4626 History of Present illness Narrative* Samuel Dinh MD - 12/22/2022 2:00 PM EDT Images from the original note were not included. BREAST RECONSTRUCTION EVALUATION CC: Suleiman Ramsey is a 77 year old that presents today for breast reconstruction evaluation. HPI: Suleiman Ramsey is a 77 year old female with a history of RIGHT breast cancer. Diagnosis was made at [facility] by means of ultrasound-guided core biopsy of Rightbreast on 11/15/2022. The pathology report showed Infiltrating Ductal Carcinoma Grade 2, ER positive,CA positive, HER2 non-amplified (FISH). She has a [...] Implant Size: 800cc Type of Implant: Tissue Production Shift Supervisor Assessment: - Would be moderate candidate for water jet loom fixer based reconstruction, with high risk of infection due tohigh BMI and diabetes Plan: - Patient has [...] physician by way of shared Medical record orletter to requesting physician via US mail. The [...] December 22, 2022 2:54 PM Provider Attestation: ISamuel MD, personally performed the services described in this documentation. All medical record entries made by the nabilaibart were at my direction and in my presence. I have reviewed the chart and discharge instructions (if applicable) and agree that the record reflects my personal performance and is accurate and complete. Dr. Samuel Dinh MD December 29, 2022 2:01 PM documented in this encounterCincinnati Children'S [facility] Center08-11-2023 NoteHNO ID: [id number] Author: Micki Parkinson, DO Service: ? Author Type: Physician Type: Progress Notes Filed: 12/25/2022 8:25 AM Note Text: NEW BREAST CANCER - INITIAL SURGICAL VISIT SERVICE DATE: 12/19/2022 REFERRING PROVIDER: Dr. Rio Richards SUBJECTIVE: REASON FOR TODAY'S VISIT: Breast Cancer Evaluation HISTORY of PRESENT ILLNESS: Suleiman Ramsey is a 77 year old White female who [facility] at the request of RIGHT for an opinion regarding a new diagnosis of RIGHT breast cancer. Patient states the palpable breast mass was first noted in 6 months ago on a self breast exam. She saw her day habilitation specialist who also palpated the mass. She was [...] cm in size. Diagnosis was made at [facility] by means of ultrasound-guided core biopsy of Right breast on 11/15/2022. The pathology report showed Infiltrating Ductal Carcinoma Grade 2, ER positive, CA positive, HER2 non-amplified (FISH). Metastatic workup with [...] tablet Take 1 (more content not included)... [facility] [id number] Nurse Note* Brandy Morales LPN - 12/22/2022 10:48 AM EDT Patient was referred by: Did patient bring outside records to appt today? : Films: Sent in by other facility Pathology: Sent in by other facility Reports: Sent in by other facility Last mammogram on: 11/10/22 bilateral Results: see report Patient current bra size: 46D Coping: It is normal to feel some distress when you have cancer. On a scale of 0-10 please indicatethe number that best describes your level of distress on the average over the past week. 07/21 Referred to social work: No Is the patient active on [employer] Yes Electronically Signed By: Brandy Morales LPN In Department: GENERAL SURGERY REVIEW OF [...] Year Drug use: No [facility] History of Present illness Narrative* Micki Parkinson DO - 12/22/2022 10:30 AM EDT NEW BREAST CANCER - INITIAL SURGICAL VISIT SERVICE DATE: 12/19/2022 REFERRING PROVIDER: Dr. Rio Richards SUBJECTIVE: REASON FOR TODAY'S VISIT: Breast Cancer Evaluation HISTORY of PRESENT ILLNESS: Suleiman Ramsey is a 77 year old White female who [facility] at the request of RIGHT for an opinion regarding a new diagnosis of RIGHT breast cancer. Patient states the palpable breast mass was first noted in 6 months ago on a self breast exam. She saw her day habilitation specialist who also palpated the mass. She was [...] cm in size. Diagnosis was made at [facility] by means of ultrasound-guided core biopsy of Rightbreast on 11/15/2022. The pathology report showed Infiltrating Ductal Carcinoma Grade 2, ER positive,CA positive, HER2 non-amplified (FISH). Metastatic workup with [...] years ago a breast surgeon attempted a needlebiopsy for a concern in the right breast, [...] OBJECTIVE: PHYSICAL EXAM: Ht 154.9 cm (5' 1) Wt 78 kg (172 lb) BMI 32.50 kg/m GENERAL:well-nourished, healthy, alert and oriented x 3, calm SKIN:warm, dry, skin color, texture, turgor normal HEAD/EYES:normocephalic, atraumatic, and anicteric NECK: supple, symmetrical, no thyromegaly RESPIRATORY: Respirations regular & non-labored ABDOMEN: soft, nondistended. No hepatomegaly., No masses MUSCULOSKELETAL: No observed limitations in range of motion of upper extremities. Patient ambulatesindependently BREASTS: The Patient was examined in the upright and supine positions. Breasts are symmetric. Thereare no significant fibrocystic changes. Patient's cup size [...] However, post-clip mammogram is not provided. A rightdiagnostic mammogram is recommended to assess clip placement. [...] seen in the breast. PATHOLOGY RESULTS: Outside [facility] Pathology read at [facility] pending IDC grade 2 ER+ CA+ Her2 non-amplified by FISH OVERREAD FINAL DIAGNOSIS Outside case [id number], collected 11/15/2022: Right breast, ultrasound-guided core biopsy: - Invasive ductal carcinoma, provisional histologic grade 2, measuring 13 mm in greatest dimension. - Received immunohistochemical stains show the following: ER: Positive, >90%, strong staining intensity. CA: Positive, 40%, weak to moderate staining intensity. HER2: Equivocal (2+) - Per outside report, HER2 FISH is not amplified (ratio 1.3, HER2 signal copy, 3.6) ASSESSMENT: Suleiman Ramsey is a 77 year old female with a RIGHT breast 6.8 cm span of disease @ 1:00. LN appear normal. Bx (ribbon clip) shows IDC, NG 2. ER+CA+HER2- [id number] PLAN: DIAGNOSIS: (C50.211, Z17.0) Malignant neoplasm of [...] role of breast conservation surgery or mastectomy, indicationsand risks of sentinel lymph node biopsy, possibility [...] concerns. Micki Parkinson DO, FACS Breast Surgeon [facility] Cc: Dr. Susie Yi documented in this encounterCinc[facility]08-09-[facility]23 Miscellaneous Notes* Telephone Encounter - Brandy Morales LPN - 12/20/2022 8:50 AM EDT Called and spoke to pt regarding her imaging review. Informed pt she needs a right mammogram for post clip placement. She verbalized understanding. Offered pt this Sunday at 8:30 am before she sees . pt and agreed to this time and date. Brandy Morales LPN documented in this encounterC[facility]08-02-2023 Miscellaneous Notes* Telephone Encounter - Brandy Morales LPN - 12/13/2022 1:37 PM EDT Called and spoke to pt daughter regarding her moms up coming appointment with Dr. Parkinson on 12/22. Went over additional appointments she may or may not need. I diana received and what (MMG/US/MRI - radiology reviewed yet? In process from [facility]. no other imaging in over 10 years Pathology slides sent / reviewed? Requested from [facility] Consults: Breast psych (Ag) not at this time Med onc pt has oncologist she is est with at [facility]. Rad onc no pt is thinking mastectomy Plastics requesting . I answered all questions and she thanked me for the call. Brandy Morales LPN documented in this encounterC[facility]04-[facility]-2014 Miscellaneous Notes* Telephone Encounter - Dang Keller Lpn - 08/19/2013 9:04 AM EDT Patient needs Rx. refill of Doxycycline 50 mg. She states this has been helping her rosacea. Takinghas been taking twice daily, then 3 days took 100 mg daily. Now plans to use medication 50 mg daily, unless flaring. uses [facility] to fax. Has apt. September 11. Dang Keller LPN documented in this encounterCincinnati [facility]05-11-2011 History of Past illness Narrative* Problem Noted Date Resolved Date Minocycline pigmentation 09/21/2010 013 Actinic keratosis 10/26/2008 06/09/2012 Other seborrheic dermatitis 10/26/200805/15 Viral warts, unspecified 10/26/2008 013 TELANG///CAPILLARY DIS NEC/NOS 08/16/2006 0 06/09/2012 ACTINIC DAMAGE//CHR SOLAR SKIN DAMAGE NOS 200606/09/2012 SOLAR LENTIGINES///DYSCHROMIA OTHER 08/16/2006 06/09/2012 Contact dermatitis and other eczema, due to unspecified cause 08/16/2006 06/09/2012 Rosacea 08/31/2005 06/09/2012 Seborrheic dermatitis, unspecified 08/31/2005 06/09/2012 documented as of this encounter (statuses as of 09/08/2020) [facility] History of Past illness Narrative* Problem Noted [...] of this encounter (statuses as of 12/13/2022) [facility] Narrative* Problem Noted [...] of this encounter (statuses as of 12/13/2022) [facility] Narrative* Problem Noted [...] of this encounter (statuses as of 12/15/2022) [facility] Narrative* Problem Noted [...] of this encounter (statuses as of 12/20/2022) [facility] Narrative* Problem Noted [...] of this encounter (statuses as of 12/25/2022) [facility] Narrative* Problem Noted [...] of this encounter (statuses as of 12/26/2022) [facility] Narrative* Problem Noted [...] of this encounter (statuses as of 12/26/2022) [facility] Narrative* Problem Noted [...] of this encounter (statuses as of 12/29/2022) [facility] Narrative* Problem Noted [...] of this encounter (statuses as of 01/03/2023) [facility] Narrative* Problem Noted [...] of this encounter (statuses as of 01/05/2023) [facility] Narrative* Problem Noted [...] of this encounter (statuses as of 01/05/2023) [facility] Narrative* Problem Noted [...] of this encounter (statuses as of 01/09/2023) [facility] Narrative* Problem Noted [...] of this encounter (statuses as of 01/09/2023) [facility] Narrative* Problem Noted [...] of this encounter (statuses as of 01/09/2023) [facility] Narrative* Problem Noted [...] of this encounter (statuses as of 01/10/2023) [facility] Narrative* Problem Noted [...] of this encounter (statuses as of 01/10/2023) [facility] Narrative* Problem Noted [...] of this encounter (statuses as of 01/11/2023) [facility] Narrative* Problem Noted [...] of this encounter (statuses as of 01/18/2023) [facility] Narrative* Problem Noted [...] of this encounter (statuses as of 01/19/2023) [facility] Narrative* Problem Noted [...] of this encounter (statuses as of 01/25/2023) [facility] Narrative* Problem Noted [...] of this encounter (statuses as of 01/26/2023) [facility] Narrative* Problem Noted [...] of this encounter (statuses as of 02/03/2023) [facility] Narrative* Problem Noted [...] of this encounter (statuses as of 02/06/2023) [facility] N[facility]* Problem Noted [...] of this encounter (statuses as of 02/22/2023) [facility] Narrative* Problem Noted [...] of this encounter (statuses as of 02/22/2023) [facility] Narrative* Problem Noted [...] of this encounter (statuses as of 02/24/2023) [facility] Narrative* Problem Noted [...] of this encounter (statuses as of 02/27/2023) [facility] Narrative* Problem Noted [...] of this encounter (statuses as of 02/28/2023) [facility] Narrative* Problem Noted [...] of this encounter (statuses as of 03/06/2023) [facility] N[facility]* Problem Noted [...] of this encounter (statuses as of 03/13/2023) [facility] N[facility]* Problem Noted [...] of this encounter (statuses as of 03/21/2023) [facility] N[facility]* Problem Noted [...] of this encounter (statuses as of 03/27/2023) [facility] N[facility]* Problem Noted [...] of this encounter (statuses as of 03/30/2023) [facility] N[facility]* Problem Noted [...] of this encounter (statuses as of 03/30/2023) [facility]* Problem Noted [...] of this encounter (statuses as of 04/03/2023) [facility]* Problem Noted [...] of this encounter (statuses as of 04/03/2023) [facility]* Problem Noted [...] of this encounter (statuses as of 04/04/2023) [facility]* Problem Noted [...] of this encounter (statuses as of 04/20/2023) [facility] N[facility]* Problem Noted [...] of this encounter (statuses as of 04/20/2023) [facility]* Problem Noted [...] of this encounter (statuses as of 04/20/2023) [facility]* Problem Noted [...] of this encounter (statuses as of 04/27/2023) [facility]* Problem Noted [...] as of this encounter (statuses as of 06/22/2023) [facility]* Problem Noted [...] as of this encounter (statuses as of 08/03/2023) [facility]* Problem Noted [...] as of this encounter (statuses as of 08/06/2023) [facility]* Problem Noted [...] as of this encounter (statuses as of 08/17/2023) [facility] Narrative* Problem Noted [...] as of this encounter (statuses as of 08/17/2023) [facility] note* Diagnosis Onset Date Resolution Status Contusion of rib on left side acute Contusion, scapular region a cute Fall acute Strain of lumbar region acut e Closed displaced comminuted fracture of shaft of left ulna acute Contusion of left wrist, initial encounter acute [facility] Work Phone: Evaluation noteNo assessment information available [facility] Work Phone: evaluation note* Diagnosis Onset Date Resolution Status Hearing loss acute [facility] Work Phone: Evaluation note* Diagnosis Onset Date Resolution Status Urinary tract infection acut e [facility] Work Phone: Evaluation note* Diagnosis Onset Date Resolution Status Urinary tract infection acut e Abnormal mammogram of right breast acute [facility] Work Phone: Evaluation note* Diagnosis Onset Date Resolution Status Urinary tract infection acut e Breast cancer, right acute Breast cancer, right acute Neuropathy noneactive [facility] Work Phone: Evaluation note* Diagnosis Onset Date Resolution Status Urinary tract infection acut e Breast cancer, right acute Breast cancer, right acute Bilateral carpal tunnel syndrome acute Fatigue acute Polyneuropathy acute [facility] Work Phone: Evaluation note* Diagnosis Malignant neoplasm of female breast, unspecified estrogen receptor status, unspecified laterality, unspecified site of breast (HCC)- Primary [facility] Diagnosis Malignant neoplasm of upper-inner quadrant of right breast in female, estrogen receptor positive (HCC)- Primary documented in this encounter [facility] note* Diagnosis Bilateral malignant neoplasm involving both nipple and areola in female, unspecified estrogen receptor status (HCC)- Primary Malignant neoplasm of upper-inner quadrant of right breast in female, 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, estrogen receptor positive (HCC) [facility] Malignant neoplasm of upper-inner quadrant of right breast in female, estrogen receptor positive (HCC)- Primary Malignant neoplasm of upper-inner quadrant of right breast in female, estrogen receptor positive (HCC) [facility] Malignant neoplasm of upper-inner quadrant of right breast in female, estrogen receptor positive (HCC)- Primary Malignant neoplasm of upper-inner quadrant of right breast in female, estrogen receptor positive (HCC) [facility]* [facility] Pre-op evaluation- Primary Preoperative examination, unspecified Essential hypertension, benign Pure hypercholesterolemia Unspecified hypothyroidism Type 2 diabetes mellitus without complication, with long-term current use of insulin (HCC) LBBB (left bundle branch block) Other left bundle branch block Malignant neoplasm of upper-inner quadrant of right breast in female, estrogen receptor positive (HCC) [facility] Malignant neoplasm of upper-inner quadrant of right breast in female, estrogen receptor positive (HCC)- Primary [facility]* Diagnosis Malignant neoplasm of upper-inner quadrant of right breast in female, estrogen receptor positive (HCC)- [facility]* Diagnosis Malignant neoplasm of upper-inner quadrant of right breast in female, estrogen receptor positive (HCC)- [facility]* Diagnosis Malignant neoplasm of upper-inner quadrant of right breast in female, estrogen receptor positive (HCC)- [facility]* Diagnosis Malignant neoplasm of upper-inner quadrant of right breast in female, estrogen receptor positive (HCC)- [facility]* Diagnosis Malignant neoplasm of upper-inner quadrant of right breast in female, estrogen receptor positive (HCC)- [facility] Diagnosis Malignant neoplasm of upper-inner quadrant of right breast in female, estrogen receptor positive (HCC)- [facility]* Diagnosis Malignant neoplasm of upper-inner quadrant of right breast in female, estrogen receptor positive (HCC)- [facility] Diagnosis Malignant neoplasm of upper-inner quadrant of right breast in female, estrogen receptor positive (HCC)- Primary [facility]* Diagnosis Malignant neoplasm of upper-inner quadrant of right breast in female, estrogen receptor positive (HCC)- Primary documented in this encounter [facility] note* Diagnosis Malignant neoplasm of upper-inner quadrant of right breast in female, estrogen receptor positive (HCC)- Primary documented in this encounter [facility] note* Diagnosis Malignant neoplasm of upper-inner quadrant of right breast in female, estrogen receptor positive (HCC)- Primary documented in this encounter [facility] note* Diagnosis Malignant neoplasm of upper-inner quadrant of right breast in female, estrogen receptor positive (HCC)- Primary [facility]* Diagnosis Malignant neoplasm of upper-inner quadrant of right breast in female, estrogen receptor positive (HCC)- Primary documented in this encounter [facility] note* Diagnosis Malignant neoplasm of upper-inner quadrant of right breast in female, estrogen receptor positive (HCC)- Primary documented in this encounter [facility] note* Diagnosis Malignant neoplasm of upper-inner quadrant of right breast in female, estrogen receptor positive (HCC)- Primary documented in this encounter [facility] note* Diagnosis Malignant neoplasm of upper-inner quadrant of right breast in female, estrogen receptor positive (HCC)- Primary documented in this encounter [facility] note* Diagnosis Malignant neoplasm of upper-inner quadrant of right breast in female, estrogen receptor positive (HCC)- Primary documented in this encounter [facility] note* Diagnosis Onset Date Resolution Status Urinary tract infection acut e Bilateral carpal tunnel syndrome acute Fatigue acute Polyneuropathy chronic Fatigue acute Increased urinary frequency acute [facility] Work Phone: Evaluation note* Diagnosis Onset Date Resolution Status Urinary tract infection acut e Bilateral carpal tunnel syndrome acute Fatigue acute Polyneuropathy chronic Fatigue acute Increased urinary frequency acute Fatigue acute [facility] Work Phone: Evaluation note* Diagnosis Onset Date Resolution Status Bilateral carpal tunnel syndrome acute Fatigue acute Polyneuropathy chronic Fatigue acute Increased urinary frequency acute Fatigue acute Fatigue acute Urinary tract infection acut e [facility] Work Phone: Evaluation note* Diagnosis Malignant neoplasm of upper-inner quadrant of right breast in female, estrogen receptor positive (HCC)- Primary documented in this encounter [facility] note* Diagnosis Onset Date Resolution Status Fatigue acute Increased urinary frequency acute Fatigue acute Fatigue acute Urinary tract infection [facility] Work Phone: Evaluation note* Diagnosis Onset Date Resolution Status Increased urinary frequency acute Fatigue acute Fatigue acute Urinary tract infection [facility] Work Phone: Evaluation note* Diagnosis Malignant neoplasm of upper-inner quadrant of right breast in female, estrogen receptor positive (HCC)- Primary documented in this encounter [facility] note* Diagnosis Breast cancer screening, high risk patient Screening mammogram for high-risk patient Encounter for screening mammogram for malignant neoplasm of breast Other screening mammogram documented in this encounter [facility] note* Diagnosis Malignant neoplasm of upper-inner quadrant of right breast in female, estrogen receptor positive (HCC)- Primary documented in this encounter [facility] note* Diagnosis Pre-op evaluation- Primary Preoperative examination, unspecified Essential hypertension, benign Pure hypercholesterolemia Unspecified hypothyroidism Type 2 diabetes mellitus without complication, with long-term current use of insulin (HCC) LBBB (left bundle branch block) Other left bundle branch block Encounter for gynecological examination (general) (routine) without abnormal findings- Primary Encounter for screening mammogram for breast cancer documented in this encounter [facility] note* Diagnosis Malignant neoplasm of right female breast, unspecified estrogen receptor status, unspecified site of breast (HCC) Malignant neoplasm of upper-outer quadrant of right female breast, unspecified estrogen receptor status (HCC) documented in this encounter [facility] note* Diagnosis Pre-op evaluation- Primary Preoperative examination, unspecified Essential hypertension, benign Pure hypercholesterolemia Unspecified hypothyroidism Type 2 diabetes mellitus without complication, with long-term current use of insulin (HCC) LBBB (left bundle branch block) Other left bundle branch block Malignant neoplasm of upper-inner quadrant of right breast in female, estrogen receptor positive (HCC)- Primary At risk for lymphedema Other specified conditions influencing health status documented in this encounter [facility] note* Diagnosis Pre-op evaluation- Primary Preoperative examination, unspecified Essential hypertension, benign Pure hypercholesterolemia Unspecified hypothyroidism Type 2 diabetes mellitus without complication, with long-term current use of insulin (HCC) LBBB (left bundle branch block) Other left bundle branch block Malignant neoplasm of upper-inner quadrant of right breast in female, estrogen receptor positive (HCC)- Primary [facility]* Diagnosis Pre-op evaluation- Primary Preoperative examination, unspecified Essential hypertension, benign Pure hypercholesterolemia Unspecified hypothyroidism Type 2 diabetes mellitus without complication, with long-term current use of insulin (HCC) LBBB (left bundle branch block) Other left bundle branch block Malignant neoplasm of upper-inner quadrant of right breast in female, estrogen receptor positive (HCC)- [facility] Diagnosis Breast cancer screening, high risk patient- Primary Screening mammogram for high-risk patient Encounter for screening mammogram for malignant neoplasm of breast Other screening mammogram documented [facility] Diagnosis Malignant neoplasm of upper-inner quadrant of right breast in female, estrogen receptor positive (HCC)- Primary [facility]* Diagnosis Pre-op evaluation- Primary Preoperative examination, unspecified Essential hypertension, benign Pure hypercholesterolemia Unspecified hypothyroidism Type 2 diabetes mellitus without complication, with long-term current use of insulin (HCC) LBBB (left bundle branch block) Other left bundle branch block Malignant neoplasm of upper-inner quadrant of right breast in female, estrogen receptor positive (HCC)- Primary [facility] Diagnosis Pre-op evaluation- Primary Preoperative examination, unspecified Essential hypertension, benign Pure hypercholesterolemia Unspecified hypothyroidism Type 2 diabetes mellitus without complication, with long-term current use of insulin (HCC) LBBB (left bundle branch block) Other left bundle branch block Malignant neoplasm of upper-inner quadrant of right breast in female, estrogen receptor positive (HCC)- Primary [facility] Diagnosis Onset Date Resolution Status Admit Date Polyneuropathy chronic November 06, 2024 11:49am [facility] Work Phone: Hospital Discharge instructions Additional Instructions Follow preprinted instructions from your surgeons office. 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 SYSTEM, 6MM LOT#[id number] EXP#03/13/2026[facility] Work Phone: Reason for referral (narrative)* Outpatient Procedure (Routine) - Closed Specialty Diagnoses / Procedures Referred By Jace t Referred To [facility] Diagnoses Pre-op evaluation Essential hypertension, benign Pure hypercholesterolemia Unspecified hypothyroidism Type 2 diabetes mellitus without complication, with long-term current use of insulin (HCC) Procedures ECG COMPLETE ECG ROUTINE ECG W/LEAST 12 LDS W/I&R Malia Acosta APRN.CNP [address] [place] [address] [facility] [address] [place] [address] Referral ID Status Reason Start Date Expiration Date V isits Requested Visits Authorized [id number] Closed Auto-Generate d Referral 01/05/2023 01/05/2024 1 1 [facility] for referral (narrative)* Diagnostic Procedure Only (Routine) - New Request Specialty Diagnoses / Procedures Referred By Jace pereira Referred To Contact [facility] Diagnoses Encounter for screening mammogram for breast cancer Procedures EVAN SCREENING W JOVAN SCREENING DIGITAL BREAST TOMOSYNTHESIS BI SCREENING MAMMOGRAPHY BI 2-VIEW BREAST INC Marshal Mcconnell MD [address] [place] [address] [facility] [address] [place] [address] Referral ID Status Reason Start Date Expiration Date Visits Requested Visits Authorized [id number] New Request Auto-Generat ed Referral 01/28/2024 02/26/2025 1 1 [facility] for referral (narrative)* Diagnostic Procedure Only (Routine) - Authorized Specialty Diagnoses / Procedures Referred By Jace pereira Referred To Contact [facility] Diagnoses Breast cancer screening, high risk patient Encounter for screening mammogram for malignant neoplasm of breast Procedures EVAN SCREENING W JOVAN SCREENING DIGITAL BREAST TOMOSYNTHESIS BI SCREENING MAMMOGRAPHY BI 2-VIEW BREAST INC Alex Arriaza PA-C [address] [place] [address] [facility] [address] [place] [address] Referral ID Status Reason Start Date Expiration Date Visits Requested Visits Authorized [id number] Authorized Auto-Generat ed Referral 08/17/2023 09/15/2024 1 1 [facility] for referral (narrative)No reason for referral information availableWS[facility]: [facility] N[facility]* Diagnostic Procedure Only (Routine) - Closed Specialty Diagnoses / Procedures Referred By Contfarshad t Referred To Contact [facility] Diagnoses Breast cancer screening, high risk patient Encounter for screening mammogram for malignant neoplasm of breast Procedures EVAN SCREENING W JOVAN SCREENING DIGITAL BREAST TOMOSYNTHESIS BI SCREENING MAMMOGRAPHY BI 2-VIEW BREAST INC CAD Alex Danielle PA-C [address] [place] [address] [facility] [address] [place] [address] Referral ID Status Reason Start Date Expiration Date V isits Requested Visits Authorized [id number] Closed Auto-Generate d Referral 08/17/2023 09/15/2024 1 1 [facility] for visit Narrative* Diagnostic Procedure Only (Routine) - Closed Specialty Diagnoses / Procedures Referred By Jace t Referred To Contact [facility] Diagnoses Malignant neoplasm of right female breast, unspecified estrogen receptor status, unspecified site of breast (HCC) Malignant neoplasm of upper-outer quadrant of right female breast, unspecified estrogen receptor status (HCC) Procedures EVAN DIAGNOSTIC RIGHT DIAGNOSTIC MAMMOGRAPHY COMPUT[place] [address] [place] [address] [facility] [address] [address] Referral ID Status Reason Start Date Expiration Date V isits Requested Visits Authorized [id number] Closed Auto-Generate d Referral 12/20/2022 01/19/2024 1 1 [facility] Summary Purpose Family History No Family History Records Found Relationship Condition Age at Onset Recorded Date/T santi Not Specified Malignant neoplasm Unknown Relationship Condition Age at Onset Recorded Date/T santi father Malignant neoplasm Unknown Myocardial infarction Unknown Cardiac disease Unknown grandfather Malignant neoplasm of rectum Unknown Advance Directives No Advanced Directives Records Found Advance Directive Response Recorded Date/ Time Advance Directives Yes August 09, 018 8:35am Living Will Yes February 16 1:48pm Power of Radioisotope Production Operator Yes February 16 1:48pm Advance Directive Response Recorded Date/ Time Name of Medical Power of Radioisotope Production Operator SPOUSE March 08, 2022 8:45am Advance Directives Yes August 09, 018 8:35am Living Will Yes March 08 8:45am Power of Radioisotope Production Operator Yes March 08, 2022 8:45am Advance Directive Response Recorded Date/ Time Name of Medical Power of Radioisotope Production Operator SPOUSE March 08, 2022 7:45am Advance Directives Yes August 09, 7:35am Living Will Yes March 08 7:45am Power of Radioisotope Production Operator Yes March 08, 2022 7:45am Advance Directive Response Recorded Date/ Time Advance Directives Yes August 09, 018 8:35am Living Will Yes March 08 8:45am Power of Radioisotope Production Operator Yes March 08, 2022 8:45am Advance Directive Response Recorded Date/ Time Name of Medical Power of Radioisotope Production Operator GAMA RAMSEY - DAUGHTER August 17, 2022 4:17pm Advance Directives Yes August 09, 018 8:35am Living Will Yes August 17, 2022 4:17pm Power of Radioisotope Production Operator Yes August 17 4:17pm Advance Directive Response Recorded Date/ Time Advance Directives Yes August 09, 018 7:35am Living Will Yes August 17, 2022 3:17pm Power of Radioisotope Production Operator Yes August 17 3:17pm Advance Directive Response Recorded Date/ Time Advance Directives Yes August 09, 018 8:35am Living Will Yes August 17, 2022 4:17pm Power of Radioisotope Production Operator Yes August 17 4:17pm Advance Directive Response Recorded Date/ Time Living Will Yes May 30 11:44am Do you have a Healthcare Pow er of Radioisotope Production Operator? Yes May 30, 2024 11:44am Name of Medical Power of Radioisotope Production Operator GAMA RAMSEY May 30, 2024 11:44am Living Will Yes May 21 1:26pm Do you have a Healthcare Pow er of Radioisotope Production Operator? Yes May 21, 2024 1:26pm Name of Medical Power of Radioisotope Production Operator LASHELL RAMSEY May 21, 2024 1:26pm Living Will Yes April 24, 024 11:35am Do you have a Healthcare Pow er of Radioisotope Production Operator? Yes April 24, 2024 11:35am Name of Medical Power of Radioisotope Production Operator OR MY ELDEST DAUGHTER GAMA April 24, 2024 11:35am Advance Directives Yes August 09, 018 8:35am Advance Directive Response Recorded Date/ Time Living Will Yes May 30 11:44am Do you have a Healthcare Power of Radioisotope Production Operator? Yes May 30, 2024 11:44am Name of Medical Power of Radioisotope Production Operator GAMA RAMSEY May 30, 2024 11:44am Living Will Yes May 21 1:26pm Do you have a Healthcare Power of Radioisotope Production Operator? Yes May 21, 2024 1:26pm Name of Medical Power of Radioisotope Production Operator LASHELL RAMSEY May 21, 2024 1:26pm Advance Directives Yes August 09, 018 8:35am Advance Directive Response Recorded Date/ Time Advance Directives Yes August 09, 018 8:35am Chief Complaint and Reason for Visit Chief Complaint PAIN IN TORSO FROM F ALL/RIB/BACK PAIN X-Ray Radiculopathy, cervical region LEFT WRIST/POST FALL 1 HR PRIOR EORDER Reason for Visit Contusion of rib on left side Contusion, scapular region Fall Strain of lumbar region Closed displaced comminuted fracture of shaft of left ulna Contusion of left wrist, initial encounter Chief Complaint PAIN IN TORSO FROM F ALL/RIB/BACK PAIN X-Ray Radiculopathy, cervical region LEFT WRIST/POST FALL 1 HR PRIOR EORDER OSTEO Reason for Visit Contusion of rib on left side Contusion, scapular region Fall Strain of lumbar region Closed displaced comminuted fracture of shaft of left ulna Contusion of left wrist, initial encounter Chief Complaint OSTEO Displaced oblique fracture of shaft of left ulna, LEFT DISTAL ULNA NONUNION ORIF WITH DISTAL RADIUS Chief Complaint Displaced oblique fr acture of shaft of left ulna, LEFT DISTAL ULNA NONUNION ORIF WITH DISTAL RADIUS LEFT DISTAL ULNA NONUNION ORIF WITH DISTAL RADIUS B/L EAR PLUG UP Reason for Visit Hearing loss Chief Complaint LEFT DISTAL ULNA NON UNION ORIF WITH DISTAL RADIUS LEFT DISTAL ULNA NONUNION ORIF WITH DISTAL RADIUS B/L EAR PLUG UP EORDER Reason for Visit Hearing loss Chief Complaint LEFT DISTAL ULNA NON UNION ORIF WITH DISTAL RADIUS B/L EAR PLUG UP EORDER Reason for Visit Hearing loss Chief Complaint B/L EAR PLUG UP EORDER Reason for Visit Hearing loss Chief Complaint EORDER DECREASED PEDAL PULSES Chief Complaint EORDER DECREASED PEDAL PULSES ABD PAIN Urinary tract infection Reason for Visit Urinary tract infect ion Chief Complaint DECREASED PEDAL PULS ES ABD PAIN Urinary tract infection EORDER FROM DR BOSCH Reason for Visit Urinary tract infect ion Chief Complaint DECREASED PEDAL PULS ES ABD PAIN Urinary tract infection EORDER FROM DR BOSCH BREAST MASS R BREAST BIRADS 5 ABNORMAL BREAST US/RIGHT Reason for Visit Urinary tract infect ion Abnormal mammogram of right breast Chief Complaint ABD PAIN Urinary tract infection EORDER FROM DR BOSCH BREAST MASS R BREAST BIRADS 5 ABNORMAL BREAST US/RIGHT Discuss Results/R BREAST BIRADS 5 NEW - BREAST CANCER RT BREAST CANCER INITIAL WORKUP, RT AXILLA STAGING RT BREAST CANCER Neuropathy Reason for Visit Urinary tract infect ion Breast cancer, right Breast cancer, right Neuropathy Chief Complaint ABD PAIN Urinary tract infection EORDER FROM DR BOSCH BREAST MASS R BREAST BIRADS 5 ABNORMAL BREAST US/RIGHT Discuss Results/R BREAST BIRADS 5 NEW - BREAST CANCER RT BREAST CANCER INITIAL WORKUP, RT AXILLA STAGING RT BREAST CANCER Neuropathy EORDER B12 inject Reason for Visit Urinary tract infect ion Breast cancer, right Breast cancer, right Bilateral carpal tunnel syndrome Fatigue Polyneuropathy Chief Complaint Urinary tract infect ion 4 M FU B12 inject CONCERN FOR UTI Reason for Visit Urinary tract infect ion Bilateral carpal tunnel syndrome Fatigue Polyneuropathy Fatigue Increased urinary frequency Chief Complaint Urinary tract infect ion 4 M FU B12 inject CONCERN FOR UTI B12 Reason for Visit Urinary tract infect ion Bilateral carpal tunnel syndrome Fatigue Polyneuropathy Fatigue Increased urinary frequency Fatigue Chief Complaint 4 M FU B12 inject CONCERN FOR UTI B12 b12 Urinary tract infection Reason for Visit Bilateral carpal coleen cindi syndrome Fatigue Polyneuropathy Fatigue Increased urinary frequency Fatigue Fatigue Urinary tract infection Chief Complaint B12 inject CONCERN FOR UTI B12 b12 Urinary tract infection EORDER Reason for Visit Fatigue Increased urinary frequency Fatigue Fatigue Urinary tract infection Chief Complaint B12 inject CONCERN FOR UTI B12 b12 Urinary tract infection EORDER EORDER Reason for Visit Fatigue Increased urinary frequency Fatigue Fatigue Urinary tract infection Chief Complaint CONCERN FOR UTI B12 b12 Urinary tract infection EORDER EORDER Reason for Visit Increased urinary fr equency Fatigue Fatigue Urinary tract infection Chief Complaint Admit Date abd pain April 24, 2024 10:25am Hospital FU May 02, 2024 12:57pm 6 month follow up May 13, 2024 1:23pm Type 2 diabetes mellitus with unspecifie d complica May 22, 2024 10:06am TEST RESULTS June 17, 2024 8 :17am Reason for Visit Admit Date Epigastric abdominal pain May 02, 2024 12:57pm Polyneuropathy May 13, 2024 1:23pm Abdominal pain May 23, 2024 6 :02am Gastric reflux May 23, 2024 6 :02am Diarrhea June 03, 2024 1 2:07pm Diarrhea June 17, 2024 8 :17am Gastric reflux June 17, 2024 8 :17am Chief Complaint Admit Date 6 month follow up May 13, 2024 1:23pm Type 2 diabetes mellitus with unspecifie d complica May 22, 2024 10:06am TEST RESULTS June 17, 2024 8 :17am pain fall- LEFT SHOULDER September 02 5:05pm Reason for Visit Admit Date Polyneuropathy May 13, 2024 1:23pm Abdominal pain May 23, 2024 6 :02am Gastric reflux May 23, 2024 6 :02am Diarrhea June 03, 2024 1 2:07pm Diarrhea June 17, 2024 8 :17am Gastric reflux June 17, 2024 8 :17am Chief Complaint Admit Date TEST RESULTS June 17, 2024 8 :17am pain fall- LEFT SHOULDER September 02 5:05pm SCREENING October 07, 2024 6:56a m Reason for Visit Admit Date Diarrhea June 17, 2024 8 :17am Gastric reflux June 17, 2024 8 :17am Chief Complaint Admit Date pain fall- LEFT SHOULDER September 02 5:05pm SCREENING October 07, 2024 6:56a m Chief Complaint Admit Date pain fall- LEFT SHOULDER September 02 5:05pm SCREENING October 07, 2024 6:56a m 6 M FU November 06, 2024 11:4 9am Reason for Visit Admit Date Polyneuropathy November 06, 2024 11:4 9am Reason for Referral Specialty Diagnoses / Procedures Referred By Jace t Referred To Contact Endocrinology Diagnoses Malignant neoplasm of upper-inner quadrant of right breast in female, estrogen receptor positive (HCC) Procedures CONSULT TO ENDOCRINOLOGY OFFICE/OUTPATIENT NEW HIGH MDM 60-74 MINUTES Alex Danielle PA-C [address] [place] [address] Referral ID Status Reason Start Date Expiration Date Visits Requested Visits Authorized [id number] Authorized PCP Requested Referral 12/26/2022 12/26/2023 1 1 Specialty Diagnoses / Procedures Referred By Contac t Referred To Contact [facility] Diagnoses Malignant neoplasm of upper-inner quadrant of right breast in female, estrogen receptor positive (HCC) Procedures CONSULT TO BREAST REHAB PROGRAM THERAPEUTIC EXERCISES RE, EA 15 MIN. THERAPEUT ACTVITY DIRECT PT CONTACT EACH 15 MIN Alex Danielle PA-C [address] [place] [address] [facility] [place] [address] [place] [address] Referral ID Status Reason Start Date Expiration Date Visits Requested Visits Authorized [id number] Authorized PCP Requested Referral Auto-Generate d Referral 01/17/2023 01/17/2024 99 99 Specialty Diagnoses / Procedures Referred By Contac t Referred To Contact Diagnoses Malignant neoplasm of upper-inner quadrant of right breast in female, estrogen receptor positive (HCC) Procedures CT SIM PLANNING RADIATION ONCOLOGY THER RAD SIMULAJ-AIDED FIELD SETTING COMPLEX Joy Barry MD, [address] [facility] [place] [address] Referral ID Status Reason Start Date Expiration Date Visits Requested Visits Authorized [id number] Pending Review PCP Requested Referral 05/22/2023 1 1 Medications Administered Section Inactive Administered Medications - up to 3 most recent administrations Medication Order MAR Action Action Date Dose Rate Site zoledronic un-[id number] 4 mg iv piggyback 100 mL (ZOMETA) 4 mg, INTRAVENOUS, Administer over 15 Minutes, ONCE, 1 dose, On Sun04/03/23 at 1030, Hazardous Potential Reproductive Risk Drug: Use appropriate PPE. New Bag/Syringe/Bottle 04/03/2023 10:23 AM EST 4 mg Additional Source Comments INFORMATION SOURCE (unrecogn ized section and content) DATE CREATED AUTHOR 10/13/2018 [facility] ([place]) DATE CREATED AUTHOR AUTHOR'S ORGANIZ ATION 02/25/2023 [facility] DATE CREATED AUTHOR AUTHOR'S ORGANIZ ATION 08/20/2024 [facility] DATE CREATED AUTHOR AUTHOR'S ORGANIZ ATION 11/07/2024 [facility] Source Comments (unrecognize d section and content) In the event this informatio n is protected by the Federal Confidentiality of Alcohol and Drug Abuse Patient Records regulations: The Federal rules restrict any use of the information to criminally investigate or prosecute any alcohol or drug abuse patient.[facility] the event this information is protected by the Federal Confidentiality of Alcohol and Drug Abuse Patient Records regulations: The Federal rules restrict any use of the information to criminally investigate or prosecute any alcohol or drug abuse patient.[facility] CenterIn the event this information is protected by the Federal Confidentiality of Alcohol and Drug Abuse Patient Records regulations: The Federal rules restrict any use of the information to criminally investigate or prosecute any alcohol or drug abuse patient.[facility] CenterIn the event this information is protected by the Federal Confidentiality of Alcohol and Drug Abuse Patient Records regulations: The Federal rules restrict any use of the information to criminally investigate or prosecute any alcohol or drug abuse patient.[facility] CenterIn the event this information is protected by the Federal Confidentiality of Alcohol and Drug Abuse Patient Records regulations: The Federal rules restrict any use of the information to criminally investigate or prosecute any alcohol or drug abuse patient.[facility] CenterIn the event this information is protected by the Federal Confidentiality of Alcohol and Drug Abuse Patient Records regulations: The Federal rules restrict any use of the information to criminally investigate or prosecute any alcohol or drug abuse patient.[facility] CenterIn the event this information is protected by the Federal Confidentiality of Alcohol and Drug Abuse Patient Records regulations: The Federal rules restrict any use of the information to criminally investigate or prosecute any alcohol or drug abuse patient.[facility] CenterIn the event this information is protected by the Federal Confidentiality of Alcohol and Drug Abuse Patient Records regulations: The Federal rules restrict any use of the information to criminally investigate or prosecute any alcohol or drug abuse patient.[facility] CenterIn the event this information is protected by the Federal Confidentiality of Alcohol and Drug Abuse Patient Records regulations: The Federal rules restrict any use of the information to criminally investigate or prosecute any alcohol or drug abuse patient.[facility] CenterIn the event this information is protected by the Federal Confidentiality of Alcohol and Drug Abuse Patient Records regulations: The Federal rules restrict any use of the information to criminally investigate or prosecute any alcohol or drug abuse patient.[facility] CenterIn the event this information is protected by the Federal Confidentiality of Alcohol and Drug Abuse Patient Records regulations: The Federal rules restrict any use of the information to criminally investigate or prosecute any alcohol or drug abuse patient.[facility] CenterIn the event this information is protected by the Federal Confidentiality of Alcohol and Drug Abuse Patient Records regulations: The Federal rules restrict any use of the information to criminally investigate or prosecute any alcohol or drug abuse patient.[facility] CenterIn the event this information is protected by the Federal Confidentiality of Alcohol and Drug Abuse Patient Records regulations: The Federal rules restrict any use of the information to criminally investigate or prosecute any alcohol or drug abuse patient.[facility] CenterIn the event this information is protected by the Federal Confidentiality of Alcohol and Drug Abuse Patient Records regulations: The Federal rules restrict any use of the information to criminally investigate or prosecute any alcohol or drug abuse patient.[facility] CenterIn the event this information is protected by the Federal Confidentiality of Alcohol and Drug Abuse Patient Records regulations: The Federal rules restrict any use of the information to criminally investigate or prosecute any alcohol or drug abuse patient.[facility] CenterIn the event this information is protected by the Federal Confidentiality of Alcohol and Drug Abuse Patient Records regulations: The Federal rules restrict any use of the information to criminally investigate or prosecute any alcohol or drug abuse patient.[facility] CenterIn the event this information is protected by the Federal Confidentiality of Alcohol and Drug Abuse Patient Records regulations: The Federal rules restrict any use of the information to criminally investigate or prosecute any alcohol or drug abuse patient.[facility] CenterIn the event this information is protected by the Federal Confidentiality of Alcohol and Drug Abuse Patient Records regulations: The Federal rules restrict any use of the information to criminally investigate or prosecute any alcohol or drug abuse patient.[facility] CenterIn the event this information is protected by the Federal Confidentiality of Alcohol and Drug Abuse Patient Records regulations: The Federal rules restrict any use of the information to criminally investigate or prosecute any alcohol or drug abuse patient.[facility] CenterIn the event this information is protected by the Federal Confidentiality of Alcohol and Drug Abuse Patient Records regulations: The Federal rules restrict any use of the information to criminally investigate or prosecute any alcohol or drug abuse patient.[facility] CenterIn the event this information is protected by the Federal Confidentiality of Alcohol and Drug Abuse Patient Records regulations: The Federal rules restrict any use of the information to criminally investigate or prosecute any alcohol or drug abuse patient.[facility] CenterIn the event this information is protected by the Federal Confidentiality of Alcohol and Drug Abuse Patient Records regulations: The Federal rules restrict any use of the information to criminally investigate or prosecute any alcohol or drug abuse patient.[facility] CenterIn the event this information is protected by the Federal Confidentiality of Alcohol and Drug Abuse Patient Records regulations: The Federal rules restrict any use of the information to criminally investigate or prosecute any alcohol or drug abuse patient.[facility] CenterIn the event this information is protected by the Federal Confidentiality of Alcohol and Drug Abuse Patient Records regulations: The Federal rules restrict any use of the information to criminally investigate or prosecute any alcohol or drug abuse patient.[facility] CenterIn the event this information is protected by the Federal Confidentiality of Alcohol and Drug Abuse Patient Records regulations: The Federal rules restrict any use of the information to criminally investigate or prosecute any alcohol or drug abuse patient.[facility] CenterIn the event this information is protected by the Federal Confidentiality of Alcohol and Drug Abuse Patient Records regulations: The Federal rules restrict any use of the information to criminally investigate or prosecute any alcohol or drug abuse patient.[facility] CenterIn the event this information is protected by the Federal Confidentiality of Alcohol and Drug Abuse Patient Records regulations: The Federal rules restrict any use of the information to criminally investigate or prosecute any alcohol or drug abuse patient.[facility] CenterIn the event this information is protected by the Federal Confidentiality of Alcohol and Drug Abuse Patient Records regulations: The Federal rules restrict any use of the information to criminally investigate or prosecute any alcohol or drug abuse patient.[facility] CenterIn the event this information is protected by the Federal Confidentiality of Alcohol and Drug Abuse Patient Records regulations: The Federal rules restrict any use of the information to criminally investigate or prosecute any alcohol or drug abuse patient.[facility] CenterIn the event this information is protected by the Federal Confidentiality of Alcohol and Drug Abuse Patient Records regulations: The Federal rules restrict any use of the information to criminally investigate or prosecute any alcohol or drug abuse patient.[facility] CenterIn the event this information is protected by the Federal Confidentiality of Alcohol and Drug Abuse Patient Records regulations: The Federal rules restrict any use of the information to criminally investigate or prosecute any alcohol or drug abuse patient.[facility] CenterIn the event this information is protected by the Federal Confidentiality of Alcohol and Drug Abuse Patient Records regulations: The Federal rules restrict any use of the information to criminally investigate or prosecute any alcohol or drug abuse patient.[facility] CenterIn the event this information is protected by the Federal Confidentiality of Alcohol and Drug Abuse Patient Records regulations: The Federal rules restrict any use of the information to criminally investigate or prosecute any alcohol or drug abuse patient.[facility] CenterIn the event this information is protected by the Federal Confidentiality of Alcohol and Drug Abuse Patient Records regulations: The Federal rules restrict any use of the information to criminally investigate or prosecute any alcohol or drug abuse patient.[facility] CenterIn the event this information is protected by the Federal Confidentiality of Alcohol and Drug Abuse Patient Records regulations: The Federal rules restrict any use of the information to criminally investigate or prosecute any alcohol or drug abuse patient.[facility] CenterIn the event this information is protected by the Federal Confidentiality of Alcohol and Drug Abuse Patient Records regulations: The Federal rules restrict any use of the information to criminally investigate or prosecute any alcohol or drug abuse patient.[facility] CenterIn the event this information is protected by the Federal Confidentiality of Alcohol and Drug Abuse Patient Records regulations: The Federal rules restrict any use of the information to criminally investigate or prosecute any alcohol or drug abuse patient.[facility] CenterIn the event this information is protected by the Federal Confidentiality of Alcohol and Drug Abuse Patient Records regulations: The Federal rules restrict any use of the information to criminally investigate or prosecute any alcohol or drug abuse patient.[facility] CenterIn the event this information is protected by the Federal Confidentiality of Alcohol and Drug Abuse Patient Records regulations: The Federal rules restrict any use of the information to criminally investigate or prosecute any alcohol or drug abuse patient.[facility] CenterIn the event this information is protected by the Federal Confidentiality of Alcohol and Drug Abuse Patient Records regulations: The Federal rules restrict any use of the information to criminally investigate or prosecute any alcohol or drug abuse patient.[facility] CenterIn the event this information is protected by the Federal Confidentiality of Alcohol and Drug Abuse Patient Records regulations: The Federal rules restrict any use of the information to criminally investigate or prosecute any alcohol or drug abuse patient.[facility] CenterIn the event this information is protected by the Federal Confidentiality of Alcohol and Drug Abuse Patient Records regulations: The Federal rules restrict any use of the information to criminally investigate or prosecute any alcohol or drug abuse patient.[facility] CenterIn the event this information is protected by the Federal Confidentiality of Alcohol and Drug Abuse Patient Records regulations: The Federal rules restrict any use of the information to criminally investigate or prosecute any alcohol or drug abuse patient.[facility] CenterIn the event this information is protected by the Federal Confidentiality of Alcohol and Drug Abuse Patient Records regulations: The Federal rules restrict any use of the information to criminally investigate or prosecute any alcohol or drug abuse patient.[facility] CenterIn the event this information is protected by the Federal Confidentiality of Alcohol and Drug Abuse Patient Records regulations: The Federal rules restrict any use of the information to criminally investigate or prosecute any alcohol or drug abuse patient.[facility] CenterIn the event this information is protected by the Federal Confidentiality of Alcohol and Drug Abuse Patient Records regulations: The Federal rules restrict any use of the information to criminally investigate or prosecute any alcohol or drug abuse patient.[facility] CenterIn the event this information is protected by the Federal Confidentiality of Alcohol and Drug Abuse Patient Records regulations: The Federal rules restrict any use of the information to criminally investigate or prosecute any alcohol or drug abuse patient.[facility] CenterIn the event this information is protected by the Federal Confidentiality of Alcohol and Drug Abuse Patient Records regulations: The Federal rules restrict any use of the information to criminally investigate or prosecute any alcohol or drug abuse patient.[facility] CenterIn the event this information is protected by the Federal Confidentiality of Alcohol and Drug Abuse Patient Records regulations: The Federal rules restrict any use of the information to criminally investigate or prosecute any alcohol or drug abuse patient.[facility] CenterIn the event this information is protected by the Federal Confidentiality of Alcohol and Drug Abuse Patient Records regulations: The Federal rules restrict any use of the information to criminally investigate or prosecute any alcohol or drug abuse patient.[facility] CenterIn the event this information is protected by the Federal Confidentiality of Alcohol and Drug Abuse Patient Records regulations: The Federal rules restrict any use of the information to criminally investigate or prosecute any alcohol or drug abuse patient.[facility] CenterIn the event this information is protected by the Federal Confidentiality of Alcohol and Drug Abuse Patient Records regulations: The Federal rules restrict any use of the information to criminally investigate or prosecute any alcohol or drug abuse patient.[facility] CenterIn the event this information is protected by the Federal Confidentiality of Alcohol and Drug Abuse Patient Records regulations: The Federal rules restrict any use of the information to criminally investigate or prosecute any alcohol or drug abuse patient.[facility] CenterIn the event this information is protected by the Federal Confidentiality of Alcohol and Drug Abuse Patient Records regulations: The Federal rules restrict any use of the information to criminally investigate or prosecute any alcohol or drug abuse patient.[facility] CenterIn the event this information is protected by the Federal Confidentiality of Alcohol and Drug Abuse Patient Records regulations: The Federal rules restrict any use of the information to criminally investigate or prosecute any alcohol or drug abuse patient.[facility] CenterIn the event this information is protected by the Federal Confidentiality of Alcohol and Drug Abuse Patient Records regulations: The Federal rules restrict any use of the information to criminally investigate or prosecute any alcohol or drug abuse patient.[facility] CenterIn the event this information is protected by the Federal Confidentiality of Alcohol and Drug Abuse Patient Records regulations: The Federal rules restrict any use of the information to criminally investigate or prosecute any alcohol or drug abuse patient.[facility] CenterIn the event this information is protected by the Federal Confidentiality of Alcohol and Drug Abuse Patient Records regulations: The Federal rules restrict any use of the information to criminally investigate or prosecute any alcohol or drug abuse patient.[facility] CenterIn the event this information is protected by the Federal Confidentiality of Alcohol and Drug Abuse Patient Records regulations: The Federal rules restrict any use of the information to criminally investigate or prosecute any alcohol or drug abuse patient.[facility] CenterIn the event this information is protected by the Federal Confidentiality of Alcohol and Drug Abuse Patient Records regulations: The Federal rules restrict any use of the information to criminally investigate or prosecute any alcohol or drug abuse patient.[facility] CenterIn the event this information is protected by the Federal Confidentiality of Alcohol and Drug Abuse Patient Records regulations: The Federal rules restrict any use of the information to criminally investigate or prosecute any alcohol or drug abuse patient.[facility] CenterIn the event this information is protected by the Federal Confidentiality of Alcohol and Drug Abuse Patient Records regulations: The Federal rules restrict any use of the information to criminally investigate or prosecute any alcohol or drug abuse patient.[facility] CenterIn the event this information is protected by the Federal Confidentiality of Alcohol and Drug Abuse Patient Records regulations: The Federal rules restrict any use of the information to criminally investigate or prosecute any alcohol or drug abuse patient.[facility] Reason for Visit (unrecogniz ed section and content) Reason Onset Date Comments Refill Request 08/19/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 Reason Comments [...] (HCC) Bobby Chowdhury, DO [address] [place] [address] [facility] [address] [place] [id number] Referral ID Status Reason Start Date Expiration Date V isits Requested Visits Authorized [id number] Authorized 02/12/2023 05/13/2023 99 99 Reason Comments Established Patient Reason Comments Research [id number] Consent Reason Comments Recheck Reason Comments Medication Problem Return Call Request Reason Onset Date Comments Refill Request 08/04/2023 Specialty Diagnoses / Procedures Referred By Contac t Referred To Contact Diagnoses Malignant neoplasm of upper-inner quadrant of right breast in female, estrogen receptor positive (HCC) Susan Wilkinson APRN.LUMPIA WRAPPER MAKER [address] [place] [address] [facility] [address] [place] [id number] Referral ID Status Reason Start Date Expiration Date V isits Requested Visits Authorized [id number] Authorized 04/27/2023 07/26/2023 99 99 Reason Comments Electronic Communication Reason Onset Date Comments Refill Request 12/19/2023 Reason Comments Well Woman Specialty Diagnoses / Procedures Referred By Contac t Referred To Contact Diagnoses Malignant neoplasm of upper-inner quadrant of right breast in female, estrogen receptor positive (HCC) Susan Wilkinson APRN.[employer] WRAPPER MAKER [address] [place] [address] Phone: tel: fax: Susan Wilkinson APRN.[employer] WRAPPER MAKER [address] [place] [address] Phone: tel: fax: Referral ID Status Reason Start Date Expiration Date V isits Requested Visits Authorized [id number] Authorized 08/18/2024 11/16/2024 99 99 Goals (unrecognized section and content) Goals may be documented in a n alternate sectionGoals may be documented in an alternate sectionGoals may be documented in an alternate sectionGoals may be documented in an alternate sectionGoals may be documented in an alternate sectionGoals may be documented in an alternate sectionGoals may be documented in an alternate sectionGoals may be documented in an alternate sectionGoals may be documented in an alternate sectionGoals may be documented in an alternate sectionGoals may be documented in an alternate sectionGoals may be documented in an alternate sectionGoals may be documented in an alternate sectionGoals may be documented in an alternate sectionGoals may be documented in an alternate sectionGoals may be documented in an alternate sectionGoals may be documented in an alternate sectionGoals may be documented in an alternate sectionGoals may be documented in an alternate section Care Teams (unrecognized sec tion and content) Team Status: Active Member Role Status Dates Dr. Benny Bosch MD Family Provider Active Dr. Benny Bosch MD Primary Care Provider Active Team Status: Active Member Role Status Dates Dr. Benny Bosch MD Primary Care Provider Active Dr. Rosanna Celaya MD Attending Provider Activ e Dr. Harsh Elizabeth DO Referring Provider Active Team Status: Inactive Member Role Status Dates Dr. Benny Bosch MD Primary Care Provider, Referr ing Provider Active Anuj Elizabeth PA, PA Attending Provider Active Team Status: Inactive Member Role Status Dates Dr. Benny Bosch MD Primary Care Provider Active Elton BHATT, PA-C Attending Provider, Referring Pr ovider Active Team Status: Inactive Member Role Status Dates Dr. Benny Bosch MD Primary Care Provider Active Dr. Harsh Elizabeth DO Attending Provider, Referrin g Provider Active Team Status: Inactive Member Role Status Dates Dr. Benny Bosch MD Primary Care Provider Active Dr. Leora Villa MD Attending Provider, Re ferring Provider Active Team Status: Inactive Member Role Status Dates Dr. Benny Bosch MD Primary Care Provider Active Mariajose Jacobs NP-C Attending Provider Active Team Status: Inactive Member Role Status Dates Dr. Benny Bosch MD Primary Care Pr ovider, Attending Provider, Referring Provider Active Team Status: Active Member Role Status Dates Dr. Benny Bosch MD Primary Care Pr ovider, Attending Provider, Referring Provider Active Team Status: Inactive Member Role Status Dates Dr. Benny Bosch MD Primary Care Provider, Attend ing Provider Active Team Status: Inactive Member Role Status Dates Dr. Benny Bosch MD Primary Care Provider, Referr ing Provider Active Benny Livingston ADVANCED MANUFACTURING CONSULTANT, ADVANCED MANUFACTURING CONSULTANT-C Attending Provider Active Team Status: Inactive Member Role Status Dates Dr. Benny Bosch MD Primary Care Provider Active Dr. Kristian Alvarez DO Attending Provider, Darren myles Active Team Status: Inactive Member Role Status Dates Dr. Benny Bosch MD Primary Care Provider Active Benny Livingston ADVANCED MANUFACTURING CONSULTANT, ADVANCED MANUFACTURING CONSULTANT-C Attending Provider, Referring Pro vider Active Team Status: Inactive Member Role Status Dates Dr. Benny Bosch MD Primary Care Provider, Referr ing Provider Active Dr. Rio Richards MD Attending Provider Active Team Status: Active Member Role Status Dates Dr. Benny Bosch MD Primary Care Provider Active Dr. Rio Richards MD Attending Provider, Referring Provider Active Team Status: Inactive Member Role Status Dates Dr. Benny Bosch MD Primary Care Provider Active Dr. Rio Richards MD Attending Provider, Referring Provider Active Team Status: Inactive Member Role Status Dates Dr. Benny Bosch MD Primary Care Provider, Referr ing Provider Active Dr. Cong Morrison MD Attending Provider Active Team Status: Inactive Member Role Status Dates Dr. Alejandro Morales MD Attending Provider Active Team Status: Inactive Member Role Status Dates Dr. Alejandro Morales MD Attending Provider, Referrin g Provider Active Dr. Benny Bosch MD Primary Care Provider Active Team Status: Active Member Role Status Dates Dr. Alejandro Morales MD Attending Provider, Referrin g Provider Active Team Status: Active Member Role Status Dates Dr. Benny Bosch MD Primary Care Provider Active Dr. Alejandro Morales MD Attending Provider, Referrin g Provider Active Team Status: Inactive Member Role Status Dates Dr. Benny Bosch MD Primary Care Provider Active Dr. Cong Morrison MD Attending Provider, Referring Provider Active Team Status: Inactive Member Role Status Dates Dr. Benny Bosch MD Primary Care Provider Active Dr. Alejandro Morales MD Attending Provider, Referrin g Provider Active Raw Shellfish Preparer Relationship Specialty Start Date End Date Benny Bosch MD [address] [place] [address] PCP - General Family Medicine 12/27/22 Raw Shellfish Preparer Relationship Specialty Start Date End Date Benny Bosch MD [address] [place] [address] PCP - General Family Medicine 12/27/22 Raw Shellfish Preparer Relationship Specialty Start Date End Date Benny Bosch MD [address] [place] [address] PCP - General Family Medicine 12/27/22 Raw Shellfish Preparer Relationship Specialty Start Date End Date Benny Bosch MD [address] [place] [address] PCP - General Family Medicine 12/27/22 Raw Shellfish Preparer Relationship Specialty Start Date End Date Benny Bosch MD [address] [place] [address] PCP - General Family Medicine 12/27/22 Raw Shellfish Preparer Relationship Specialty Start Date End Date Benny Bosch MD [address] [place] [address] PCP - General Family Medicine 12/27/22 Raw Shellfish Preparer Relationship Specialty Start Date End Date Benny Bosch MD [address] [place] [address] PCP - General Family Medicine 12/27/22 Raw Shellfish Preparer Relationship Specialty Start Date End Date Benny Bosch MD [address] [place] [address] PCP - General Family Medicine 12/27/22 Raw Shellfish Preparer Relationship Specialty Start Date End Date Benny Bosch MD [address] [place] [address] PCP - General Family Medicine 12/27/22 Raw Shellfish Preparer Relationship Specialty Start Date End Date Benny Bosch MD [address] [place] [address] PCP - General Family Medicine 12/27/22 Joy Barry MD, [address] [place] [address] Physician Radiation Oncology 01/11/23 Raw Shellfish Preparer Relationship Specialty Start Date End Date Benny Bosch MD [address] [place] [address] PCP - General Family Medicine 12/27/22 Joy Barry MD, [address] [place] [address] Physician Radiation Oncology 01/11/23 Raw Shellfish Preparer Relationship Specialty Start Date End Date Benny Bosch MD [address] [place] [address] PCP - General Family Medicine 12/27/22 Joy Barry MD, [address] [place] [address] Physician Radiation Oncology 01/11/23 Raw Shellfish Preparer Relationship Specialty Start Date End Date Benny Bosch MD [address] [place] [address] PCP - General Family Medicine 12/27/22 Joy Barry MD, [address] [place] [address] Physician Radiation Oncology 01/11/23 Raw Shellfish Preparer Relationship Specialty Start Date End Date Benny Bosch MD [address] [place] [address] PCP - General Family Medicine 12/27/22 Joy Barry MD, [address] [place] [address] Physician Radiation Oncology 01/11/23 Raw Shellfish Preparer Relationship Specialty Start Date End Date Benny Bosch MD [address] [place], [place] [address] PCP - General Family Medicine 12/27/22 Joy Barry MD, [address] [place] [address] Physician Radiation Oncology 01/11/23 Raw Shellfish Preparer Relationship Specialty Start Date End Date Benny Bosch MD [address] [place] [address] PCP - General Family Medicine 12/27/22 Joy Barry MD, [address] [place], [place] [address] [phone] Physician Radiation Oncology 01/11/23 Raw Shellfish Preparer Relationship Specialty Start Date End Date Benny Bosch MD [address] [place], [place] [address] PCP - General Family Medicine 12/27/22 Joy Barry MD, [address] [place] [address] Physician Radiation Oncology 01/11/23 Raw Shellfish Preparer Relationship Specialty Start Date End Date Benny Bosch MD [address] [place] [address] PCP - General Family Medicine 12/27/22 Joy Barry MD, [address] [place] [address] Physician Radiation Oncology 01/11/23 Raw Shellfish Preparer Relationship Specialty Start Date End Date Benny Bosch MD [address] [place] [address] PCP - General Family Medicine 12/27/22 Joy Barry MD, [address] [place] [address] Physician Radiation Oncology 01/11/23 Raw Shellfish Preparer Relationship Specialty Start Date End Date Benny Bosch MD [address] [place] [address] PCP - General Family Medicine 12/27/22 Joy Barry MD, [address] [place], [place] [address] [phone] Physician Radiation Oncology 01/11/23 Raw Shellfish Preparer Relationship Specialty Start Date End Date Benny Bosch MD [address] [place], [place] [address] PCP - General Family Medicine 12/27/22 Joy Barry MD, [address] [place] [address] Physician Radiation Oncology 01/11/23 Raw Shellfish Preparer Relationship Specialty Start Date End Date Benny Bosch MD [address] [place] [address] PCP - General Family Medicine 12/27/22 Joy Barry MD, [address] [place] [address] Physician Radiation Oncology 01/11/23 Raw Shellfish Preparer Relationship Specialty Start Date End Date Benny Bosch MD [address] [place] [address] PCP - General Family Medicine 12/27/22 Joy Barry MD, [address] [place] [address] Physician Radiation Oncology 01/11/23 Raw Shellfish Preparer Relationship Specialty Start Date End Date Benny Bosch MD [address] [place] [address] PCP - General Family Medicine 12/27/22 Joy Barry MD, [address] [place] [address] Physician Radiation Oncology 01/11/23 Raw Shellfish Preparer Relationship Specialty Start Date End Date Benny Bosch MD [address] [facility] [address] [place] [address] PCP - General Family Medicine 12/27/22 Joy Barry MD, [address] [place] [address] Physician Radiation Oncology 01/11/23 Raw Shellfish Preparer Relationship Specialty Start Date End Date Benny Bosch MD [address] [place] [address] PCP - General Family Medicine 12/27/22 Joy Barry MD, [address] [place] [address] Physician Radiation Oncology 01/11/23 Raw Shellfish Preparer Relationship Specialty Start Date End Date Benny Bosch MD [address] [facility] [address] [place] [address] PCP - General Family Medicine 12/27/22 Joy Barry MD, [address] [place] [address] Physician Radiation Oncology 01/11/23 Raw Shellfish Preparer Relationship Specialty Start Date End Date Benny Bosch MD [address] [place] [address] PCP - General Family Medicine 12/27/22 Joy Barry MD, [address] [place] [address] Physician Radiation Oncology 01/11/23 Raw Shellfish Preparer Relationship Specialty Start Date End Date Benny Bosch MD [address] [place] [address] PCP - General Family Medicine 12/27/22 Joy Barry MD, [address] [place], [place] [address] Physician Radiation Oncology 01/11/23 Raw Shellfish Preparer Relationship Specialty Start Date End Date Benny Bosch MD [address] [facility] [address] [place] [address] PCP - General Family Medicine 12/27/22 Joy Barry MD, [address] [place], [place] [address] Physician Radiation Oncology 01/11/23 Team Status: Inactive Member Role Status Dates Dr. Benny Bosch MD Primary Care Provider, Referr ing Provider Active MICK Aguiar Attending Provider Active Team Status: Inactive Member Role Status Dates Dr. Benny Bosch MD Primary Care Provider Active Anuj BHATT, PA Attending Provider, Referring Provi wilma Active Team Status: Inactive Member Role Status Dates Dr. Benny Bosch MD Primary Care Provider Active MICK Aguiar Attending Provider, Referring Provider Active Raw Shellfish Preparer Relationship Specialty Start Date End Date Benny Bosch MD [address] [facility] [address] [place] [address] PCP - General Family Medicine 12/27/22 Joy Barry MD [address] [place] [address] Physician Radiation Oncology 01/11/23 Team Status: Active Member Role Status Dates Dr. Benny Bosch MD Family Provider Active Dr. Cong Morrison MD Primary Care Provider Active Team Status: Inactive Member Role Status Dates Dr. Benny Bosch MD Referring Provider Active Dr. Cong Morrison MD Primary Care Provider, Attend ing Provider Active Team Status: Inactive Member Role Status Dates Dr. Cnog Morrison MD Primary Care Provider, Referr ing Provider Active NOVA Antonio Attending Provider Active Team Status: Inactive Member Role Status Dates Dr. Cong Morrison MD Primary Care Provider Active NOVA Antonio Attending Provider, Referring Provi wilma Active Raw Shellfish Preparer Relationship Specialty Start Date End Date Benny Bosch MD [address] [place] [address] PCP - General Family Medicine 12/27/22 Joy Barry MD [address] [place] [address] Physician Radiation Oncology 01/11/23 Raw Shellfish Preparer Relationship Specialty Start Date End Date Benny Bosch MD [address] [place] [address] PCP - General Family Medicine 12/27/22 Joy Barry MD [address] [place] [address] Physician Radiation Oncology 01/11/23 Team Status: Inactive Member Role Status Dates Dr. Cong Morrison MD Primary Care Pr ovider, Attending Provider, Referring Provider Active Raw Shellfish Preparer Relationship Specialty Start Date End Date Benny Bosch MD [address] [place] [address] PCP - General Family Medicine 12/27/22 Joy Barry MD [address] [place] [address] Physician Radiation Oncology 01/11/23 Raw Shellfish Preparer Relationship Specialty Start Date End Date Benny Bosch MD [address] [place] [address] PCP - General Family Medicine 12/27/22 oJy Barry MD [address] [place] [address] Physician Radiation Oncology 01/11/23 Raw Shellfish Preparer Relationship Specialty Start Date End Date Benny Bosch MD [address] [place] [address] PCP - General Family Medicine 12/27/22 Joy Barry MD [address] [place] [address] Physician Radiation Oncology 01/11/23 Raw Shellfish Preparer Relationship Specialty Start Date End Date Benny Bosch MD [address] [place] [address] PCP - General Family Medicine 12/27/22 Joy Barry MD [address] [place] [address] Physician Radiation Oncology 01/11/23 Raw Shellfish Preparer Relationship Specialty Start Date End Date Benny Bosch MD [address] [place] [address] PCP - General Family Medicine 12/27/22 Joy Barry MD [address] [place] [address] Physician Radiation Oncology 01/11/23 Raw Shellfish Preparer Relationship Specialty Start Date End Date Benny Bosch MD [address] [place] [address] PCP - General Family Medicine 12/27/22 Joy Barry MD [address] [place] [address] Physician Radiation Oncology 01/11/23 Raw Shellfish Preparer Relationship Specialty Start Date End Date Benny Bosch MD [address] [place] [address] PCP - General Family Medicine 12/27/22 Joy Barry MD [address] [place] [address] Physician Radiation Oncology 01/11/23 Raw Shellfish Preparer Relationship Specialty Start Date End Date Benny Bosch MD [address] [place] [address] PCP - General Family Medicine 12/27/22 Joy Barry MD [address] [place], [place] [address] [phone] Physician Radiation Oncology 01/11/23 Raw Shellfish Preparer Relationship Specialty Start Date End Date Benny Bosch MD [address] [place] [address] PCP - General Family Medicine 12/27/22 Joy Barry MD [address] [place] [address] Physician Radiation Oncology 01/11/23 Team Status: Active Member Role Status Dates Dr. Benny Bosch MD Primary Care Provider Active Team Status: Inactive Member Role Status Dates Dr. Benny Bosch MD Primary Care Provider Active Start: April 24, 2024 End: April 24, 2024 Dr. Hector Manzano DO Attending Provider Activ e Start: April 24, 2024 End: April 24, 2024 Dr. Hector Manzano DO Emergency Provider Activ e Start: April 24, 2024 End: April 24, 2024 Team Status: Inactive Member Role Status Dates Dr. Benny Bosch MD Referring Provider Active Start: May 02, 2024 End: May 02, 2024 NOVA Ruiz Attending Provider Active Start: May 02, 2024 End: May 02, 2024 Team Status: Inactive Member Role Status Dates Dr. Benny Bosch MD Referring Provider Active Start: May 13, 2024 End: May 13, 2024 Dr. Cong Morrison MD Attending Provider Active Start: May 13, 2024 End: May 13, 2024 Team Status: Inactive Member Role Status Dates Dr. Benny Bosch MD Primary Care Provider Active Start: May 22, 2024 End: May 22, 2024 Dr. Benny Bosch MD Attending Provider Active Start: May 22, 2024 End: May 22, 2024 Dr. Benny Bosch MD Referring Provider Active Start: May 22, 2024 End: May 22, 2024 Team Status: Inactive Member Role Status Dates Dr. Prem Sanchez DO Attending Provider Active Start: May 23, 2024 End: May 23, 2024 Dr. Benny Bosch MD Primary Care Provider Active Start: May 23, 2024 End: May 23, 2024 Dr. Benny Bosch MD Referring Provider Active Start: May 23, 2024 End: May 23, 2024 Team Status: Active Member Role Status Dates Dr. Prem Sanchez DO Attending Provider Active Start: May 23, 2024 Dr. Prem Sanchez DO Other Provider Active St art: May 23, 2024 Dr. Benny Bosch MD Primary Care Provider Active Start: May 23, 2024 Dr. Benny Bosch MD Referring Provider Active Start: May 23, 2024 Team Status: Inactive Member Role Status Dates Bee Roldan MD Primary Care Provider Active St art: May 26, 2024 End: May 26, 2024 Bee Roldan MD Attending Provider Active Start : May 26, 2024 End: May 26, 2024 Bee Roldan MD Referring Provider Active Start : May 26, 2024 End: May 26, 2024 Team Status: Inactive Member Role Status Dates Dr. Prem Sanchez DO Attending Provider Active Start: June 03, 2024 End: June 03, 2024 Dr. Benny Bosch MD Primary Care Provider Active Start: June 03, 2024 End: June 03, 2024 Dr. Benny Bosch MD Referring Provider Active Start: June 03, 2024 End: June 03, 2024 Team Status: Active Member Role Status Dates Dr. Prem Sanchez DO Attending Provider Active Start: June 03, 2024 Dr. Prem Sanchez DO Other Provider Active St art: June 03, 2024 Dr. Benny Bosch MD Primary Care Provider Active Start: June 03, 2024 Dr. Benny Bosch MD Referring Provider Active Start: June 03, 2024 Team Status: Inactive Member Role Status Dates NOVA Ruiz Attending Provider Active Start: June 17, 2024 End: June 17, 2024 Dr. Benny Bosch MD Primary Care Provider Active Start: June 17, 2024 End: June 17, 2024 Dr. Benny Bosch MD Referring Provider Active Start: June 17, 2024 End: June 17, 2024 Team Status: Inactive Member Role Status Dates Dr. Benny Bosch MD Primary Care Provider Active Start: July 25, 2024 End: July 25, 2024 Dr. Leoar Villa MD Attending Provider Act [place] Start: July 25, 2024 End: July 25, 2024 Dr. Leora Villa MD Referring Provider Act [place] Start: July 25, 2024 End: July 25, 2024 Raw Shellfish Preparer Relationship Specialty Start Date End Date Benny Bosch MD [address] [place] [address] PCP - General Family Medicine 12/27/22 Joy Barry MD [address] [place] [address] Physician Radiation Oncology 01/11/23 Raw Shellfish Preparer Relationship Specialty Start Date End Date Benny Bosch MD [address] [place], [place] [address] PCP - General Family Medicine 12/27/22 Joy Barry MD [address] [place], [place] [address] Physician Radiation Oncology 01/11/23 Team Status: Inactive Member Role Status Dates Dr. Benny Bosch MD Primary Care Provider Active Start: September 02, 2024 End: September 02, 2024 Dr. Benny Bosch MD Attending Provider Active Start: September 02, 2024 End: September 02, 2024 Dr. Benny Bosch MD Referring Provider Active Start: September 02, 2024 End: September 02, 2024 Team Status: Inactive Member Role Status Dates Dr. Benny Bosch MD Primary Care Provider Active Start: October 07, 2024 End: October 07, 2024 Dr. Marshal Park DO Attending Provider Active Start: October 07, 2024 End: October 07, 2024 Dr. Marshal Park DO Referring Provider Active Start: October 07, 2024 End: October 07, 2024 Team Status: Inactive Member Role Status Dates Dr. Benny Bosch MD Primary Care Provider Active Start: October 30, 2024 End: October 30, 2024 Dr. Leora Villa MD Attending Provider Act [place] Start: October 30, 2024 End: October 30, 2024 Dr. Leora Villa MD Referring Provider Act [place] Start: October 30, 2024 End: October 30, 2024 Team Status: Inactive Member Role Status Dates Dr. Cong Morrison MD Attending Provider Active Start: November 06, 2024 End: November 06, 2024 Dr. Benny Bosch MD Primary Care Provider Active Start: November 06, 2024 End: November 06, 2024 Dr. Benny Bosch MD Referring Provider Active Start: November 06, 2024 End: November 06, 2024 FOR RECORDS PERTAINING TO PATIENTS WHO ARE [...] BE BASED ON THE PRIMARY CLINICAL RECORDS. [facility] [employer] provides no warranty or guarantee of the accuracy or completeness of information in this document.
[2024-12-06 13:41] LABS: Hematocrit 35.6 % (37-47); Hemoglobin 11.6 g/dL (12.0-15.0); Immature Granulocytes Count 0.050 X10^3/uL (0.0-0.0); Mean Corp Hgb Conc 32.6 g/dL (32-36); Mean Corpuscular Volume 93.0 fL (81-99); Mean Platelet Vol. 10.6 fl (6.2-12.0); NRBC Flagged by Analyzer 0 % (0-5); Platelet Count 254 K/mm3 (150-450); RBC Distribution Width CV 13.9 % (11.6-14.6); RBC Distribution Width SD 46.6 fl (35.1-43.9); Red Blood Count 3.83 M/mm3 (4.2-5.4); White Blood Count 10.7 K/mm3 (4.4-11.0)
--- NOTE | 2024-12-06 13:50 | RAD_ITS ---
PROCEDURE: CHEST PA AND LATERAL 12/06/2024 REASON FOR EXAM: WEAKNESS, SOB TECHNIQUE: CHEST PA AND LATERAL COMPARISON: 04/24/2024. FINDINGS: The heart is normal in size. The lungs are clear. No acute osseous abnormalities. RAD/Chest PA and Lateral IMPRESSION: NO ACUTE FINDINGS. Reading Location: [id number]
--- NOTE | 2024-12-06 13:50 | RAD_ITS ---
PROCEDURE: PELVIS 1 OR 2 VIEWS 12/06/2024 REASON FOR EXAM: PAIN, FALL TECHNIQUE: PELVIS 1 OR 2 VIEWS COMPARISON: None. FINDINGS: No evidence of acute fracture or dislocation. Mild bilateral hip osteoarthrosis. Partially visualized degenerative changes of the spine. RAD/Pelvis 1 or 2 Views IMPRESSION: No acute osseous abnormalities. Reading Location: [id number]
[2024-12-06 14:25] LABS: Anion Gap 15 (5-15); BUN 22 mg/dL (4-19); BUN/Creat Ratio 24.3 RATIO (10-20); Calcium,Total 10.2 mg/dL (7.6-11.0); Carbon Dioxide 17.9 mmol/L (21.0-32.0); Chloride 101 mmol/L (98-108); Estimated Creatinine Clearance 49.18 ml/min (50-250); Glucose 274 mg/dL (70-99); Potassium 5.0 mmol/L (3.3-5.1)
--- NOTE | 2024-12-06 14:29 | EX.ED.DYSGE1 ---
HPI <NOVA Max - Last Filed: 12/06/24 20:54> History of Present Illness Chief Complaint: Weakness Narrative Narrative: Patient presenting today due to generalized weakness that has been on going over the last week. She reports occasional lightheadedness with ambulating. She denies vertiginous dizziness. She had a mechanical fall last week when she tripped over a rubber mat and hit her head and right arm against a metal door. She does have a small bruise to the right side of her forehead and to her right upper arm. No LOC occurred from that fall, she is not on any blood thinners. She reports intermittent pain to her head since the fall. She denies fevers, chills, chest pain, abdominal pain, nausea, and vomiting. PFS <NOVA Max - Last Filed: 12/06/24 20:54> [facility] Medical History Cancer Thyroid disease Diabetes Leg cramps History of neuropathy History of recent fall Fatty liver Restless legs Dietary restriction History of hiatal hernia History of ulceration Abdominal pain Post-menopausal Wears hearing aid Wears glasses Insulin dependent diabetes mellitus High cholesterol Back pain Gastric reflux Former smoker History of echocardiogram History of stress test Hx of corn of toe Hx of dermabrasion Bloating Hypergammaglobulinemia CKD (chronic kidney disease) Hyperlipidemia Cataracts, bilateral Increased urinary frequency Back pain Difficulty balancing Arthritis Thyroid disease Hypertension Home Medications ?Medication ?Instructions ?Recorded ?Last Taken ?Type levothyroxine 150 mcg tablet 150 mcg PO DAILY 12/03/14 06/03/24 08:00 History blood sugar diagnostic #100 ea 01/24/19 03/15/22 History blood-glucose meter #1 ea 01/24/19 03/15/22 History metformin 500 mg tablet,extended 2,000 mg PO QHS #360 tabs 01/24/19 03/15/22 History release 24 hr insulin glargine U-300 conc 300 70 unit subcut 1730 02/14/21 05/23/24 History unit/mL (1.5 mL) subcutaneous pen (Toujeo SoloStar U-300 Insulin) ibuprofen 400 mg tablet 400 mg PO Q6H PRN Pain 03/08/22 03/15/22 History olmesartan 20 mg tablet (Benicar) 40 mg PO DAILY 11/15/22 06/03/24 08:00 History cholecalciferol (vitamin D3) 50 50 mcg PO DAILY 11/27/22 Unknown History mcg (2,000 unit) capsule diphenhydramine HCl 25 mg capsule 25 mg PO QHS PRN sleep 11/27/22 Unknown History (Benadryl) magnesium oxide 1,600 mg PO DAILY 11/27/22 Unknown History rosuvastatin 20 mg tablet 20 mg PO DAILY 11/27/22 Unknown History Bilateral wrist splints #2 ea 12/21/22 Unknown Rx anastrozole 1 mg tablet 1 mg PO DAILY 10/05/23 Unknown History insulin lispro 100 unit/mL 40 unit subcut .1/2 HR PRIOR TO 04/02/24 Unknown History subcutaneous half-unit pen MEAL (Humalog Alec KwikPen (U-100)) ondansetron HCl 4 mg tablet 4 mg PO Q8H PRN nausea and vomiting 05/30/24 Unknown History omeprazole 40 mg capsule,delayed 40 mg PO BID abdominal pain 90 06/17/24 Unknown Rx release days #180 caps duloxetine 60 mg capsule,delayed 60 mg PO QHS #90 caps 11/07/24 Unknown Rx release pregabalin 200 mg capsule 200 mg PO BID 11/07/24 Unknown History cefdinir 300 mg capsule 300 mg PO BID #13 caps 12/06/24 Unknown Rx Allergy/AdvReac Type Severity Reaction Status Date / Time gabapentin AdvReac Severe Other Verified 12/06/24 13:11 Family History Father Cancer lung/liver/pancreas Myocardial infarction Heart disease Grandfather Rectal cancer paternal Surgical History History of esophagogastroduodenoscopy (EGD) History of back surgery Hx of right mastectomy History of right breast biopsy (~11/2022) S/P ORIF (open reduction internal fixation) fracture Hx of arthroscopic knee surgery Hx of tubal ligation Social History Smoking Status: Former smoker alcohol intake: never ROS <NOVA Max - Last Filed: 12/06/24 20:54> ROS ED Constitutional Constitutional ED: Denies chills or fever(s) Cardiovascular Cardiovascular: Denies chest pain Respiratory/Chest Respiratory/Chest: Denies dyspnea Gastrointestinal Gastrointestinal: Denies abdominal pain, nausea or vomiting Genitourinary Genitourinary ED: Denies dysuria, hematuria or urinary frequency Musculoskeletal Musculoskeletal: Denies arthralgias or myalgias Integumentary Reports other Details: Bruise to the right upper arm and right side of forehead ; Denies rash Neurologic Neurologic: Reports weakness EXAM <NOVA Max - Last Filed: 12/06/24 20:54> Physical Exam Const Vital Signs: 12/06/24 13:08 12/06/24 13:16 12/06/24 15:44 Temperature 98.2 F Temperature Source Oral Pulse Rate 89 Pulse Rate [Lying] 86 Pulse Rate [Sitting (for 1 minute prior to obtaining)] 90 Pulse Rate [Standing (for 1 minute prior to obtaining)] 93 Respiratory Rate 18 Respiratory Effort Normal Non-Labored Respiratory Pattern Normal Blood Pressure 149/71 H Blood Pressure [Lying] 134/81 H Blood Pressure [Sitting (for 1 minute prior to obtaining)] 151/76 H Blood Pressure [Standing (for 1 minute prior to obtaining)] 148/79 H Blood Pressure Mean 97 Blood Pressure Mean [Lying] 98 Blood Pressure Mean [Sitting (for 1 minute prior to obtaining)] 101 Blood Pressure Mean [Standing (for 1 minute prior to obtaining)] 102 Pulse Ox 98 Oxygen Delivery Method Room Air 12/06/24 15:44 12/06/24 17:00 12/06/24 17:29 Temperature 98.8 F Temperature Source Pulse Rate 88 90 90 Pulse Rate [Lying] Pulse Rate [Sitting (for 1 minute prior to obtaining)] Pulse Rate [Standing (for 1 minute prior to obtaining)] Respiratory Rate 18 18 18 Respiratory Effort Respiratory Pattern Blood Pressure 134/81 H 130/85 H 144/77 H Blood Pressure [Lying] Blood Pressure [Sitting (for 1 minute prior to obtaining)] Blood Pressure [Standing (for 1 minute prior to obtaining)] Blood Pressure Mean 98 100 99 Blood Pressure Mean [Lying] Blood Pressure Mean [Sitting (for 1 minute prior to obtaining)] Blood Pressure Mean [Standing (for 1 minute prior to obtaining)] Pulse Ox 97 97 97 Oxygen Delivery Method Room Air Room Air Positive well nourished, well developed and no apparent distress General Appearance ED: well developed HEENT Reports normocephalic and head/scalp atraumatic HEENT Narrative: Small old appearing bruise to the right side of the forehead Mouth ED: Yes moist mucous membranes normal Eyes PERRL and EOMs intact bilaterally Neck full ROM and supple Neck Narrative: No midline cervical tenderness Chest Wall inspection of chest normal Resp normal respiratory effort and clear to auscultation bilaterally Cardio regular rate and regular rhythm GI soft to palpation, non-tender, non-distended and no masses Back/Spine normal ROM and normal to inspection Extremity normal to inspection and full ROM Extremity Narrative: Bruise to the right upper arm, no tenderness along the right humerus or to the right shoulder with full range of motion to the right shoulder. Right radial pulse 2+ Neuro oriented x3, CN's II-XII intact bilaterally, moves all extremities, no focal motor deficits and no sensory deficits noted Sensorium / Orientation: awake and alert Psych mental status grossly normal and thought process normal Skin no rashes or lesions noted and no wounds <Dr. You Degroot, DO - Last Filed: 12/06/24 21:01> Physical Exam Const Vital Signs: 12/06/24 13:08 12/06/24 13:16 12/06/24 15:44 Temperature 98.2 F Temperature Source Oral Pulse Rate 89 Pulse Rate [Lying] 86 Pulse Rate [Sitting (for 1 minute prior to obtaining)] 90 Pulse Rate [Standing (for 1 minute prior to obtaining)] 93 Respiratory Rate 18 Respiratory Effort Normal Non-Labored Respiratory Pattern Normal Blood Pressure 149/71 H Blood Pressure [Lying] 134/81 H Blood Pressure [Sitting (for 1 minute prior to obtaining)] 151/76 H Blood Pressure [Standing (for 1 minute prior to obtaining)] 148/79 H Blood Pressure Mean 97 Blood Pressure Mean [Lying] 98 Blood Pressure Mean [Sitting (for 1 minute prior to obtaining)] 101 Blood Pressure Mean [Standing (for 1 minute prior to obtaining)] 102 Pulse Ox 98 Oxygen Delivery Method Room Air 12/06/24 15:44 12/06/24 17:00 12/06/24 17:29 Temperature 98.8 F Temperature Source Pulse Rate 88 90 90 Pulse Rate [Lying] Pulse Rate [Sitting (for 1 minute prior to obtaining)] Pulse Rate [Standing (for 1 minute prior to obtaining)] Respiratory Rate 18 18 18 Respiratory Effort Respiratory Pattern Blood Pressure 134/81 H 130/85 H 144/77 H Blood Pressure [Lying] Blood Pressure [Sitting (for 1 minute prior to obtaining)] Blood Pressure [Standing (for 1 minute prior to obtaining)] Blood Pressure Mean 98 100 99 Blood Pressure Mean [Lying] Blood Pressure Mean [Sitting (for 1 minute prior to obtaining)] Blood Pressure Mean [Standing (for 1 minute prior to obtaining)] Pulse Ox 97 97 97 Oxygen Delivery Method Room Air Room Air [facility] <NOVA Max - Last Filed: 12/06/24 20:54> [facility] Narrative Medical decision making narrative: Patient presenting today with vague complaints of weakness following a mechanical fall last Sunday. She has a small bruise to the right side of her forehead and right upper arm as a result of this fall. No tenderness along her right upper extremity. She has had intermittent pain to her head since falling, therefore head CT will be obtained to assess for intracranial bleed. She does not have any neck pain or C-spine tenderness to necessitate need for C-spine imaging. Head CT i shows mild atrophy with sphenoid sinusitis. She did report pain to her, pubic bone following the fall, she had no tenderness to her hips on exam, pelvis x-ray obtained and is negative for fracture. Chest x-ray negative for cardiopulmonary abnormality. She will be given IV fluids. Labs obtained to assess for leukocytosis, electrolyte derangement, anemia, UTI, ERNESTO. UA does show evidence of a UTI, this will be cultured and she will be started on cefdinir with first dose here. She is able to ambulate and on reexamination is requesting to go home. She is feeling improved. Recommended she have close follow-up with her PCP and she will be discharged home in stable condition. Lab Data Attestation: I reviewed the patient's lab results. Labs: Laboratory Results - last 24 hr 12/06/24 12/06/24 12/06/24 13:23 15:00 15:15 WBC 10.7 RBC 3.83 L Hgb 11.6 L Hct 35.6 L MCV 93.0 MCH 30.3 MCHC 32.6 RDW Std Deviation 46.6 H RDW Coeff of Luiza 13.9 Plt Count 254 MPV 10.6 Immature Gran % (Auto) 0.500 Neut % (Auto) 68.0 Lymph % (Auto) 18.0 L [place] % (Auto) 7.3 Eos % (Auto) 5.2 H Baso % (Auto) 1.0 Absolute Neuts (auto) 7.3 Absolute Lymphs (auto) 1.92 Nucleated RBC % 0 Sodium 134 Potassium 5.0 Chloride 101 Carbon Dioxide 17.9 L Anion Gap 15 BUN 22 H Creatinine 0.89 Estim Creat Clear Calc 49.18 L Est GFR (MDRD) Non-Af 66 BUN/Creatinine Ratio 24.3 H Glucose 274 H Calcium 10.2 Troponin T High Sens 17 H Troponin T Hi Sens 2 Hr 18 H TSH 1.370 Urine Color Yellow Urine Clarity Sl. Cloudy Urine pH 6.0 Ur Specific [place] 1.010 Urine Protein 15 H Urine Glucose (UA) 50 H Urine Ketones Negative Urine Occult Blood Negative Urine Nitrite Negative Urine Bilirubin Negative Urine Urobilinogen Normal Ur Leukocyte Esterase 500 H Urine RBC 0 SEEN Urine WBC 5-10 SEEN Ur Squamous Epith Cells 0-5 SEEN Urine Bacteria 2+ Urine Mucus 1+ Radiography X-Ray: Read by ED Physician Diagnostic Testing: Clinical Impression(s) from Imaging Studies Brain CT 12/06/24 13:25 IMPRESSION: Mild atrophy. Sphenoid sinusitis. Reading Location: [facility] Chest X-Ray 12/06/24 13:50 IMPRESSION: NO ACUTE FINDINGS. Reading Location: [facility] Pelvis X-Ray 12/06/24 13:50 IMPRESSION: No acute osseous abnormalities. Reading Location: [facility] EKG Initial EKG: Comments: 89 bpm, sinus rhythm with first-degree AV block, no ST elevation <Dr. You Degroot, DO - Last Filed: 12/06/24 21:01> [facility] Lab Data Labs: Laboratory Results - last 24 hr 12/06/24 12/06/24 12/06/24 13:23 15:00 15:15 WBC 10.7 RBC 3.83 L Hgb 11.6 L Hct 35.6 L MCV 93.0 MCH 30.3 MCHC 32.6 RDW Std Deviation 46.6 H RDW Coeff of Luiza 13.9 Plt Count 254 MPV 10.6 Immature Gran % (Auto) 0.500 Neut % (Auto) 68.0 Lymph % (Auto) 18.0 L [place] % (Auto) 7.3 Eos % (Auto) 5.2 H Baso % (Auto) 1.0 Absolute Neuts (auto) 7.3 Absolute Lymphs (auto) 1.92 Nucleated RBC % 0 Sodium 134 Potassium 5.0 Chloride 101 Carbon Dioxide 17.9 L Anion Gap 15 BUN 22 H Creatinine 0.89 Estim Creat Clear Calc 49.18 L Est GFR (MDRD) Non-Af 66 BUN/Creatinine Ratio 24.3 H Glucose 274 H Calcium 10.2 Troponin T High Sens 17 H Troponin T Hi Sens 2 Hr 18 H TSH 1.370 Urine Color Yellow Urine Clarity Sl. Cloudy Urine pH 6.0 Ur Specific [place] 1.010 Urine Protein 15 H Urine Glucose (UA) 50 H Urine Ketones Negative Urine Occult Blood Negative Urine Nitrite Negative Urine Bilirubin Negative Urine Urobilinogen Normal Ur Leukocyte Esterase 500 H Urine RBC 0 SEEN Urine WBC 5-10 SEEN Ur Squamous Epith Cells 0-5 SEEN Urine Bacteria 2+ Urine Mucus 1+ Radiography Diagnostic Testing: Clinical Impression(s) from Imaging Studies Brain CT 12/06/24 13:25 IMPRESSION: Mild atrophy. Sphenoid sinusitis. Reading [facility] Chest X-Ray 12/06/24 13:50 IMPRESSION: NO ACUTE FINDINGS. Reading Location: [id number] Pelvis X-Ray 12/06/24 13:50 IMPRESSION: No acute osseous abnormalities. Reading Location: [id number] Treatment and Re-Evaluation :: ED attending note: I evaluated the patient in conjunction with the [facility]. I agree with his/her statements and above findings. I have personally performed a face to face assessment of the patient and have reviewed the [facility] Note. I performed a substantive portion of the visit including all aspects of the following. I personally saw the patient performed chart review, physical exam, reviewed labs, imaging (if obtained), and formulated a treatment and management plan. This note was generated with Dragon dictation software. It may contain incorrect words, spelling, and punctuation that were not noted in review of the chart prior to signing. Discharge Plan Triage Chief Complaint: Weakness ED Midlevel Provider: Stacey Ward ED Provider: You Degroot Dx/Rx/DC Orders Clinical Impression: Weakness, UTI (urinary tract infection), Fall Instructions: UTIs, ED Weakness Uncertain Cause Prescriptions: New cefdinir 300 mg capsule 300 mg PO BID Qty: 13 0RF No Action (DME) blood sugar diagnostic Strip See Rx Instructions .ROUTE .MEDSUPPLY Qty: 100 Patient Comments: use 1 Strip four times daily Rx Instructions: As directed metformin 500 mg tablet extended release 24 hr 2,000 mg PO QHS Qty: 360 Patient Comments: TAKE 4 TABLETS BY MOUTH ONCE DAILY AT NIGHT (DME) blood-glucose meter Misc See Rx Instructions .ROUTE .MEDSUPPLY Qty: 1 Rx Instructions: As directed Toujeo SoloStar U-300 Insulin 300 unit/mL (1.5 mL) insulin pen 70 unit subcut 1730 insulin lispro [Humalog Alec KwikPen U-100] 100 unit/mL insulin pen, half-unit 40 unit subcut .1/2 HR PRIOR TO MEAL diphenhydramine HCl [Benadryl] 25 mg capsule 25 mg PO QHS PRN (Reason: sleep) rosuvastatin 20 mg tablet 20 mg PO DAILY cholecalciferol (vitamin D3) 50 mcg (2,000 unit) capsule 50 mcg PO DAILY magnesium oxide 400 mg magnesium tablet 1,600 mg PO DAILY anastrozole 1 mg tablet 1 mg PO DAILY omeprazole 40 mg capsule,delayed release(DR/EC) 40 mg PO BID 90 Days Qty: 180 3RF Rx Instructions: x2 until 04/09 then 1 tablet QD after that duloxetine 60 mg capsule,delayed release(DR/EC) 60 mg PO QHS Qty: 90 2RF pregabalin 200 mg capsule 200 mg PO BID levothyroxine 150 MCG tablet 150 mcg PO DAILY olmesartan [Benicar] 20 mg tablet 40 mg PO DAILY Patient Comments: 1 tablet by mouth once a day ibuprofen 400 mg Tablet 400 mg PO Q6H PRN (Reason: Pain) ondansetron HCl 4 mg tablet 4 mg PO Q8H PRN (Reason: nausea and vomiting) (DME) Bilateral wrist splints See Rx Instructions [facility] Q[facility]: 2 0RF Rx Instructions: Right and left wrist splints to be worn at night Primary Care Provider: Abhinav Bosch Referrals: Abhinav Bosch MD [Primary Care Provider] - 5-7 Days Activity Restrictions/Additional Instructions: Follow-up with your PCP and return for any other concerns or worsening symptoms. Print Language: Ukrainian Disposition Disposition: Home, Self Care Discharge Date/Time: 12/06/24 17:50
[2024-12-06 14:33] LABS: Troponin T High Sensitivity 17 ng/L (<=14)
[2024-12-06 15:44] VITALS: BP 134/81; BP 148/79; BP 151/76; PULSE 86; PULSE 88; PULSE 90; PULSE 93; RESP 18; O2SAT 97
[2024-12-06 15:48] LABS: Troponin T High Sens 2 HR 18 ng/L (<=14)
[2024-12-06 16:27] LABS: Red Blood Cells-Urine 0 SEEN /hpf (0-5)
[2024-12-06 16:56] LABS: Color, Urine Yellow (Yellow); Glucose, Dipstick 50 mg/dl (Normal); Ketone-Dipstick Negative (Negative); Leukocyte Esterase-Dipstick 500 /ul (Negative); Nitrite-Dipstick Negative (Negative); Occult Blood-Urine Negative /ul (Negative); Protein-Dipstick 15 mg/dl (Negative); Specific Gravity, Urine 1.010 (1.002-1.030); Urine Bilirubin Dipstick Negative (Negative)
[2024-12-06 17:00] VITALS: BP 130/85; PULSE 90; RESP 18; O2SAT 97
[2024-12-06 17:07] LABS: Squamous Epithelial Cells - UA 0-5 SEEN /hpf (5-10)
[2024-12-06 17:08] LABS: Mucous, Urine 1+ /hpf (<or=2+)
[2024-12-06 17:29] VITALS: BP 144/77; PULSE 90; RESP 18; TEMP 37.1; O2SAT 97
== END 2024-12-06 17:50 | disposition home or self-care (01) ==
PROVIDERS: Physician Assistant; Emergency Provider Emergency Medicine; PCP Family Medicine; Visit Provider Emergency Medicine
DX: N39.0 Urinary tract infection, site not specified (principal); E11.22 Type 2 diabetes mellitus with diabetic chronic kidney disease; E11.40 Type 2 diabetes mellitus with diabetic neuropathy, unspecified; S00.83XA Contusion of other part of head, initial encounter; N18.9 Chronic kidney disease, unspecified; R53.1 Weakness; J32.3 Chronic sphenoidal sinusitis; S40.021A Contusion of right upper arm, initial encounter; Z87.891 Personal history of nicotine dependence; E78.00 Pure hypercholesterolemia, unspecified; I12.9 Hypertensive chronic kidney disease with stage 1 through stage 4 chronic kidney disease, or unspecified chronic kidney disease; W01.198A Fall on same level from slipping, tripping and stumbling with subsequent striking against other object, initial encounter
CPT/HCPCS: 70450; 71046; 72170; 80048; 81001; 84443; 84484; 85025; 87077; 87086; 87088; 87186; 93005; 96360; 96361; 99283; A4216

== ENCOUNTER 2025-01-27 12:46 | Emergency (ER) | payer MEDICARE, BC, SELFPAY ==
[2025-01-27 12:49] VITALS: BP 180/94; PULSE 90; RESP 18; TEMP 36.3; O2SAT 98
--- NOTE | 2025-01-27 13:20 | RAD_ITS ---
PROCEDURE: HUMERUS MIN 2 VIEWS 01/27/2025 REASON FOR EXAM: FALL TECHNIQUE: Procedure Code: RADHUM Modality: DX Procedure: HUMERUS MIN 2 VIEWS Laterality: Left shoulder COMPARISON: None FINDINGS: Bones: Impacted nondisplaced fracture of the surgical neck of the humerus with extension to the greater tuberosity. Joints: Normal alignment at the shoulder and elbow. Soft tissues: Soft tissue swelling. Other: RAD/Humerus min 2 Views IMPRESSION: Nondisplaced impacted fracture of the proximal surgical neck of the left humeru s with extension to the greater tuberosity. Soft tissue swelling. Reading Location: [place] [id number]
--- NOTE | 2025-01-27 13:20 | RAD_ITS ---
PROCEDURE: SHOULDER MIN 2 VIEWS 01/27/2025 REASON FOR EXAM: FALL TECHNIQUE: Procedure Code: RADSH Modality: DX Procedure: SHOULDER MIN 2 VIEWS Laterality: Left shoulder COMPARISON: None FINDINGS: Bones: Nondisplaced impacted fracture of the proximal surgical neck of the humerus with extension of the greater tuberosity. Joints: Normal alignment. Mild degenerative changes. Soft tissues: Soft tissue swelling. Other: RAD/Shoulder min 2 Views IMPRESSION: Nondisplaced impacted fracture of the surgical neck of the humerus with extensi on to the greater tuberosity. Soft tissue swelling. Reading Location: [place] [id number]
--- NOTE | 2025-01-27 13:20 | RAD_ITS ---
PROCEDURE: ELBOW MIN 3 VIEWS 01/27/2025 REASON FOR EXAM: PAIN AFTER FALL TECHNIQUE: Procedure Code: RADEL Modality: DX Procedure: ELBOW MIN 3 VIEWS Laterality: Left elbow COMPARISON: None FINDINGS: Bones: No fracture seen. Joints: No evidence of dislocation Soft tissues: Soft tissue swelling. Other: RAD/Elbow min 3 Views IMPRESSION: No fracture. Soft tissue swelling. Reading Location: [place] [id number]
--- NOTE | 2025-01-27 13:21 | EX.ED.UPPERE ---
HPI History of Present Illness Chief Complaint: Upper Extremity Injury Narrative Narrative: Patient is a 79-year-old female with past medical history of hypercholesteremia, GERD, chronic kidney disease, hyperlipidemia, hypertension who presents to the emergency department the chief complaint of left shoulder and elbow pain. Patient states that around 4 AM she got up to use the restroom and states that she slipped on something causing her to fall land on her left shoulder and elbow. States that she did not hit her head she did not pass out. Patient denies any blood thinning medications. She states that the pain is not getting better therefore she came here to be further evaluated [facility] Medical History Cancer Thyroid disease Diabetes Leg cramps History of neuropathy History of recent fall Fatty liver Restless legs Dietary restriction History of hiatal hernia History of ulceration Abdominal pain Post-menopausal Wears hearing aid Wears glasses Insulin dependent diabetes mellitus High cholesterol Back pain Gastric reflux Former smoker History of echocardiogram History of stress test Hx of corn of toe Hx of dermabrasion Bloating Hypergammaglobulinemia CKD (chronic kidney disease) Hyperlipidemia Cataracts, bilateral Increased urinary frequency Back pain Difficulty balancing Arthritis Thyroid disease Hypertension Home Medications ?Medication ?Instructions ?Recorded ?Last Taken ?Type levothyroxine 150 mcg tablet 150 mcg PO DAILY 12/03/14 06/03/24 08:00 History blood sugar diagnostic #100 ea 01/24/19 03/15/22 History blood-glucose meter #1 ea 01/24/19 03/15/22 History metformin 500 mg tablet,extended 2,000 mg PO QHS #360 tabs 01/24/19 03/15/22 History release 24 hr insulin glargine U-300 conc 300 70 unit subcut 1730 02/14/21 05/23/24 History unit/mL (1.5 mL) subcutaneous pen (Toujeo SoloStar U-300 Insulin) ibuprofen 400 mg tablet 400 mg PO Q6H PRN Pain 03/08/22 03/15/22 History olmesartan 20 mg tablet (Benicar) 40 mg PO DAILY 11/15/22 06/03/24 08:00 History cholecalciferol (vitamin D3) 50 50 mcg PO DAILY 11/27/22 Unknown History mcg (2,000 unit) capsule diphenhydramine HCl 25 mg capsule 25 mg PO QHS PRN sleep 11/27/22 Unknown History (Benadryl) magnesium oxide 1,600 mg PO DAILY 11/27/22 Unknown History rosuvastatin 20 mg tablet 20 mg PO DAILY 11/27/22 Unknown History Bilateral wrist splints #2 ea 12/21/22 Unknown Rx anastrozole 1 mg tablet 1 mg PO DAILY 10/05/23 Unknown History insulin lispro 100 unit/mL 40 unit subcut .1/2 HR PRIOR TO 04/02/24 Unknown History subcutaneous half-unit pen MEAL (Humalog Alec SayikPen (U-100)) ondansetron HCl 4 mg tablet 4 mg PO Q8H PRN nausea and vomiting 05/30/24 Unknown History omeprazole 40 mg capsule,delayed 40 mg PO BID abdominal pain 90 06/17/24 Unknown Rx release days #180 caps duloxetine 60 mg capsule,delayed 60 mg PO QHS #90 caps 11/07/24 Unknown Rx release pregabalin 200 mg capsule 200 mg PO BID 11/07/24 Unknown History cefdinir 300 mg capsule 300 mg PO BID #13 caps 12/06/24 Unknown Rx ondansetron 4 mg disintegrating 4 mg PO Q6H PRN nausea and 01/27/25 Unknown Rx tablet vomiting #20 tabs oxycodone-acetaminophen 5 mg-325 1 tab PO Q6H PRN pain 2 days #8 01/27/25 Unknown Rx mg tablet (Endocet) tabs Allergy/AdvReac Type Severity Reaction Status Date / Time gabapentin AdvReac Severe Other Verified 01/27/25 12:49 Family History Father Cancer lung/liver/pancreas Myocardial infarction Heart disease Grandfather Rectal cancer paternal Surgical History History of esophagogastroduodenoscopy (EGD) History of back surgery Hx of right mastectomy History of right breast biopsy (~11/2022) S/P ORIF (open reduction internal fixation) fracture Hx of arthroscopic knee surgery Hx of tubal ligation Social History housing: house Smoking Status: Former smoker alcohol intake: never ROS ROS ED ROS Narrative Constitutional: Denies any lightheadedness, dizziness, fevers, chills, headaches Eyes: Denies double vision Cardiovascular: Denies chest pain Respiratory: Denies shortness of breath Abdomen: Denies nausea vomiting diarrhea : Denies urinary symptoms Neurological: Denies any numbness, weakness, tingling Musculoskeletal: Complains of left elbow and shoulder pain as noted above Skin: Denies any rashes or lesions EXAM Physical Exam Narrative Exam Narrative: General: Patient was lying in bed did appear to be uncomfortable secondary to her left shoulder pain Head: Atraumatic, normocephalic Eyes: PERRL bilaterally, EOMI bilaterally, no conjunctival injection noted Neck: Soft, supple, trachea midline Cardiovascular: Regular rate and rhythm Respiratory: Clear to auscultation bilaterally Abdomen: Soft, nondistended, no tenderness to palpation Musculoskeletal: Patient has tenderness palpation over the left shoulder and left elbow although bony prominences palpated joints taken through full range of motion no pain elicited Extremities: Radial pulses +2/4 in the left upper extremities, +4/5 strength noted in the bilateral lower extremity in the right upper extremity, strength is limited in the left upper extremity secondary to her pain Neurological: Patient following commands knew that she was at [facility] year is 2024. NIH of 0 GCS 15, sensation grossly intact in the median, ulnar, radial and axillary nerve distribution bilaterally Skin: Warm, dry, intact no rashes lesions noted Const Vital Signs: 01/27/25 12:49 Temperature 97.3 F L Temperature Source Temporal Pulse Rate 90 Respiratory Rate 18 Blood Pressure 180/94 H Blood Pressure Mean 122 Pulse Ox 98 Oxygen Delivery Method Room Air MDM MDM MDM Narrative Medical decision making narrative: Patient is a 79-year-old female who presented to the emergency department with a chief complaint of left shoulder pain and elbow pain after a fall. On the differential diagnose includes not limited to proximal humerus dislocation, fracture of the humerus, distal humerus fracture. Once the workup is obtained and reviewed she will be reevaluated. Patient's shoulder x-ray reviewed by myself by radiology and by myself which showed a nondisplaced impacted fracture of the surgical neck of the humerus with extension to the greater tuberosity with soft tissue swelling. Patient's humerus x-ray reviewed by myself and by radiology as well which showed the nondisplaced fracture is noted on the shoulder x-ray and her elbow x-ray reviewed by myself and by radiology showed no acute fracture or dislocation. Patient given [place] and Zofran Did discuss case with on-call orthopedic surgeon Dr. Santiago who states that the patient to be placed in a sling and follow-up. Patient given prescription for Endocet and Zofran for severe pain otherwise for her mild to moderate pain she can use Tylenol and ibuprofen. She is encouraged return if worsening symptoms or concerns. She is agreeable this plan all course concerns answered she was discharged home in stable condition. Discharge Plan Triage Chief Complaint: Upper Extremity Injury Other Complaint: Fall ED Provider: Dewey Pardo Dx/Rx/DC Orders Clinical Impression: Closed fracture of left proximal humerus, Chronic kidney disease, Fall Prescriptions: New oxycodone-acetaminophen [Endocet] 5-325 mg tablet 1 tab PO Q6H PRN (Reason: pain) 2 Days Qty: 8 0RF ondansetron 4 mg tablet,disintegrating 4 mg PO Q6H PRN (Reason: nausea and vomiting) Qty: 20 0RF No Action (DME) blood sugar diagnostic Strip See Rx Instructions .ROUTE .MEDSUPPLY Qty: 100 Patient Comments: use 1 Strip four times daily Rx Instructions: As directed metformin 500 mg tablet extended release 24 hr 2,000 mg PO QHS Qty: 360 Patient Comments: TAKE 4 TABLETS BY MOUTH ONCE DAILY AT NIGHT (DME) blood-glucose meter [facility] See Rx Instructions .ROUTE .MEDSUPPLY Qty: 1 Rx Instructions: As directed Toujeo SoloStar U-300 Insulin 300 unit/mL (1.5 mL) insulin pen 70 unit subcut 1730 insulin lispro [Humalog Alec KwikPen U-100] 100 unit/mL insulin pen, half-unit 40 unit subcut .1/2 HR PRIOR TO MEAL diphenhydramine HCl [Benadryl] 25 mg capsule 25 mg PO QHS PRN (Reason: sleep) rosuvastatin 20 mg tablet 20 mg PO DAILY cholecalciferol (vitamin D3) 50 mcg (2,000 unit) capsule 50 mcg PO DAILY magnesium oxide 400 mg magnesium tablet 1,600 mg PO DAILY anastrozole 1 mg tablet 1 mg PO DAILY omeprazole 40 mg capsule,delayed release(DR/EC) 40 mg PO BID 90 Days Qty: 180 3RF Rx Instructions: x2 until 04/09 then 1 tablet QD after that duloxetine 60 mg capsule,delayed release(DR/EC) 60 mg PO QHS Qty: 90 2RF pregabalin 200 mg capsule 200 mg PO BID levothyroxine 150 MCG tablet 150 mcg PO DAILY olmesartan [Benicar] 20 mg tablet 40 mg PO DAILY Patient Comments: 1 tablet by mouth once a day ibuprofen 400 mg Tablet 400 mg PO Q6H PRN (Reason: Pain) ondansetron HCl 4 mg tablet 4 mg PO Q8H PRN (Reason: nausea and vomiting) cefdinir 300 mg capsule 300 mg PO BID Qty: 13 0RF (DME) Bilateral wrist splints See Rx Instructions .ROUTE .MEDSUPPLY Qty: 2 0RF Rx Instructions: Right and left wrist splints to be worn at night Primary Care Provider: Abhinav Bosch Referrals: Abhinav Bosch MD [Primary Care Provider] - Eamon Santiago MD [Med Staff - Active Staff] - Activity Restrictions/Additional Instructions: Use Tylenol for mild pain max dose Tylenol in 24 hours 4000 mg. Use the Endocet and Zofran for severe pain. Your x-ray did show that you broke your left shoulder. You need to follow-up with orthopedics that you referred to. Return with worsening symptoms or any concerns do not operate anything under the influence of a narcotic. Print Language: Maori Disposition Disposition: Home, Self Care
[2025-01-27] MEDS: HYDROcodone Bitartrate/Apap 5/325 Tablet PO (14:03)
[2025-01-27 14:31] VITALS: BP 168/70; PULSE 90; RESP 18; TEMP 36.3; O2SAT 98
== END 2025-01-27 15:04 | disposition home or self-care (01) ==
PROVIDERS: Emergency Provider Emergency Medicine; PCP Family Medicine; Visit Provider Emergency Medicine
DX: S42.215A Unspecified nondisplaced fracture of surgical neck of left humerus, initial encounter for closed fracture (principal); E11.22 Type 2 diabetes mellitus with diabetic chronic kidney disease; E78.00 Pure hypercholesterolemia, unspecified; N18.9 Chronic kidney disease, unspecified; I12.9 Hypertensive chronic kidney disease with stage 1 through stage 4 chronic kidney disease, or unspecified chronic kidney disease; W01.0XXA Fall on same level from slipping, tripping and stumbling without subsequent striking against object, initial encounter; Z87.891 Personal history of nicotine dependence; K21.9 Gastro-esophageal reflux disease without esophagitis
CPT/HCPCS: 73030; 73060; 73080; 99284

== ENCOUNTER → 2025-03-16 | Outpatient (CLI) | payer MEDICARE, BC, SELFPAY ==
[2025-03-16 15:52] LABS: AST(SGOT) 37 U/L (<=31); Alanine Aminotransfer ALT/SGPT 12 U/L (<=34); Albumin, Serum 4.1 g/dL (3.4-4.8); Alkaline Phosphatase 86 U/L (35-104); Anion Gap 11 (5-15); BUN 20 mg/dL (4-19); BUN/Creat Ratio 22.6 RATIO (10-20); Calcium,Total 9.8 mg/dL (7.6-11.0); Carbon Dioxide 24.1 mmol/L (21.0-32.0); Chloride 104 mmol/L (98-108); Cholesterol 116 mg/dL (<=200); Globulin 3.1 g/dL (2.2-4.2); Glucose 162 mg/dL (70-99); Low Density Lipoprotein Calc. 53 mg/dL; Potassium 4.3 mmol/L (3.3-5.1); Triglycerides 129 mg/dL; Very Low Density Lipoprotein 26 mg/dL (5-40); Vitamin D,25 Hydroxy 36.8 ng/mL (30-100); cholesterol:hdl ratio screen 2.90
[2025-03-16 16:20] LABS: Creatinine, Urine (random) 163.00 mg/dL (28.00-217.00); Microalbumin,Random Urine 78.8 mg/L (<20 mg/L)
== END | disposition home or self-care (01) ==
LOC: MTLAB 11:46
PROVIDERS: PCP Family Medicine; Referring Provider Internal Medicine Endocrinology, Diabetes & Metabolism; Visit Provider Internal Medicine Endocrinology, Diabetes & Metabolism
DX: E11.9 Type 2 diabetes mellitus without complications (principal); E61.1 Iron deficiency; E78.5 Hyperlipidemia, unspecified; E03.9 Hypothyroidism, unspecified; I10 Essential (primary) hypertension
CPT/HCPCS: 36415; 80053; 80061; 82043; 82306; 82570; 83036; 84439; 84443

== ENCOUNTER 2025-04-28 06:57 | Outpatient (CLI) | payer MEDICARE, BC, SELFPAY ==
--- OUTSIDE RECORDS SUMMARY | 2025-04-28 07:01 | XMS RPT_ITS | CCD ---
Author Organization [facility] Care Team Providers Care Front Office Medical Assistant Name Role Phone Benny Keating Primary Care Provider [phone] Dr. Benny Bosch Primary Care Provider [phone] Dr. Benny Bosch Referring Provider NOVA Fierro Attending Provider Dr. Gold Farmer Attending Provider NOVA Hernandez Referring Provider Dr. Benny Bosch Primary Care Provider Dr. Rosanna Celaya Attending Provider Dr. Harsh Elizabeth Referring Provider Dr. Benny Bosch Referring Provider NOVA Fierro Attending Provider Dr. Benny Bosch Primary Care Provider Dr. Benny Bosch Primary Care Provider Dr. Benny Bosch Referring Provider NOVA Fierro Attending Provider Dr. Benny Bosch Primary Care Provider [phone] Dr. Benny Bosch Referring Provider Yara GUEST SERVICES ASSISTANT, GUEST SERVICES ASSISTANT-C Benny Burgess Attending Provider Dr. Rio Richards Attending Provider [phone] Dr. Rio Richards Referring Provider Dr. Alejandro Morales Attending Provider Dr. Cong Morrison Attending Provider Unavailable Primary Care Provider Unavaillia Bosch MD, Benny Cordova Primary Care Provider Jhonny ULRICH MD, Daesung Unavailable BENNY BOSCH Primary Care Unavailable SHASHI, ALEX Referring Unavailable SAMUEL DINH Attending Unavailable DIMOV, VESSELIN Referring Unavailable EVON, MICKI A Attending Unavailable DIMOV, VESSELIN Referring Unavailable SCHBENNY CHRISTOPHER Referring Unavailable SHASHI, ALEX Attending Unavailable BENNY BOSCH Primary Care Unavailable EVON, MICKI A Admitting Unavailable EVON, MICKI A Attending Unavailable SHASHI, ALEX Referring Unavailable BENNY BOSCH Primary Care Unavailable SHASHI, ALEX Attending Unavailable HIRO, BENNY Cordova Primary Care Unavailable EVON, MICKI A Referring Unavailable SHASHI, ALEX Attending Unavailable Dr. Benny Bosch Primary Care Provider Dr. Benny Bosch Referring Provider NOVA Fierro Attending Provider Dr. Cong Morrison Attending Provider Dr. Cong Morrison Referring Provider MICK Saunders Attending Provider Jhonny ULRICH, Joy Unavailable Dr. Benny Bosch Primary Care Provider [phone] Dr. Benny Bosch Referring Provider Dr. Cong Morrison Primary Care Provider NOVA Fierro Attending Provider Dr. Benny Bosch Primary Care Provider Dr. Cong Morrison Attending Provider Dr. Cong Morrison Referring Provider Dr. Benny Bosch Referring Provider MICK Saunders Attending Provider Dr. Cong Morrison Primary Care Provider NOVA Fierro Attending Provider [phone] Dr. Benny Bosch Primary Care Provider Dr. Cong Morrison Attending Provider Dr. Cong Morrison Referring Provider Benny Bosch MD Primary Care Provider Unavailable Primary Care Provider Unavaillia Bosch MD, Dr. Benny Cordova Primary Care Provider Jose Juan MACIAS, Dr. Young Attending Provider Jose Juan MACIAS, Dr. Young Emergency Provider Hiro ULRICH, Dr. Benny Cordova Referring Provider [phone] Lindsay Alston Attending Provider Tamiko ULRICH, Dr. Gar Attending Provider Hiro ULRICH, Dr. Benny Cordova Attending Provider [phone] Daniel MACIAS, Dr. Amaro Attending Provider Daniel MACIAS, Dr. Amaro Other Provider Yuli ULRICH, Bee Primary Care Provider [phone] Bee Roldan MD Attending Provider Bee Roldan MD Referring Provider Daisy ULRICH, Dr. Leora Beltran Attending Provide r Dr. Leora Villa MD Referring Provide r Hiro ULRICH, Dr. Benny Cordova Referring Provider Hiro ULRICH, Dr. Benny Cordova Primary Care Provider Lindsay Alston Attending Provider Hiro ULRICH, Dr. Benny Cordova Primary Care Provider [phone] Hiro ULRICH, Dr. Benny Cordova Referring Provider Hiro ULRICH, Dr. Benny Cordova Attending Provider [phone] Dr. Marshal Park DO Attending Provider Dr. Marshal Park DO Referring Provider Hiro ULRICH, Dr. Benny Cordova Primary Care Provider [phone] Hiro ULRICH, Dr. Benny Cordova Referring Provider Dr. Cong Morrison MD Attending Provider Hiro ULRICH, Dr. Benny Cordova Primary Care Provider Daisy ULRICH, Dr. Leora Beltran Attending Provide r Daisy ULRICH, Dr. Leora Beltran Referring Provide r Dr. You Degroot DO Emergency Provider SCHINNER, BENNY E Primary Care Unavailable SCHINNER, BENNY E Primary Care Unavailable DANAY GRIFFIN Attending Unavailable SCHINNER, BENNY E Primary Care Unavailable ALEX DANIELLE Attending Unavailable SCHINNER, BENNY E Primary Care Unavailable MARSHAL PARK Attending Unavailable SCHINNER, BENNY E Primary Care Unavailable SUSAN WILKINSON Attending Unavailable SCHINNER, BENNY E Primary Care Unavailable BRANT ARANGO Attending Unavailable DANAY GRIFFIN Attending Unavailable SCHINNER, BENNY E Primary Care Unavailable SCHINNER, BENNY E Primary Care Unavailable SCHINNER, BENNY E Primary Care Unavailable SCHINNER, BENNY E Primary Care Unavailable Hiro ULRICH, Dr. Benny Cordova Primary Care Provider Hiro ULRICH, Dr. Benny Cordova Referring Provider [phone] Dr. You Degroot DO Attending Provider Dr. Dewey Pardo DO Emergency Provider Schinner, Benny E Primary Care Unavailable Lester Villapana Na Referring Unavaila Leora Arriola Attending Unavaila ble Schinner, Benny E Referring Unavailable Schinner, Benny E Primary Care Unavailable Cong Morrison Attending Unavailable Schinner, Benny E Primary Care Unavailable Schinner, Benny E Referring Unavailable Lindsay Shoemaker Attending Unavailable Prem Sanchez Consulting Unavailable Schinner, Benny E Primary Care Unavailable Schinner, Benny E Referring Unavailable Prem Sanchez Attending Unavailable Benny Bosch Primary Care Unavailable Benny Bosch Referring Unavailable Benny Bosch Attending Unavailable Benny Bosch Primary Care Unavailable SchBenny christopher Referring Unavailable SchBenny christopher Attending Unavailable Benny Bosch Primary Care Unavailable Brandy Gonsalez Referring Unavailable Brandy Gonsalez Attending Unavailable Miriam Leon Attending Unavailable Benny Bosch Primary Care Unavailable Hector Manzano Attending UnavailBenny Green Primary Care Unavailable Benny Bosch Referring Unavailable Cong Morrison Attending Unavailable Benny Bosch Primary Care Unavailable Benny Bosch Referring Unavailable Brandy Gonsalez Attending Unavailable Benny Bosch Referring Unavailable Benny Bosch Primary Care Unavailable Lindsay Shoemaker Attending Unavailable Benny Bosch Referring Unavailable Lindsay Shoemaker Attending Unavailable Prem Sanchez Consulting Unavailable Benny Bosch Primary Care Unavailable Benny Bosch Referring Unavailable Prem Sanchez Attending Unavailable Benny Bosch Primary Care Unavailable Benny Bosch Referring Unavailable Benny Bosch Attending Unavailable Bee Roldan Primary Care Unavailable Bee Roldan Referring Unavailable Bee Roldan Attending Unavailable Benny Bosch Primary Care Unavailable Ragjoseph, Leora Na Referring Unavaila ble Daisy, Leora Na Attending Unavaila Benny Garcia Referring Unavailable Benny Bosch Primary Care Unavailable Prem Sanchez Attending Unavailable Benny Bosch Referring Unavailable Benny Bosch Primary Care Unavailable Prem Sanchez Attending Unavailable Benny Bosch Primary Care Unavailable Marshal Park Referring Unavailable Marshal Park Attending Unavailable Benny Bosch Primary Care Unavailable Raghunathan, Leora Na Referring Unavaila ble Ragjoseph, Leora Na Attending Unavaila Benny Garcia Primary Care Unavailable Dewey Pardo Attending Unavailable You Degroot Attending Unavailable Benny Bosch Primary Care Unavailable BENNY BOSCH MD Primary Care Physician BENNY BOSCH MD Primary Care Unavailable LEORA VILLA MD [facility] Allergies Allergy Classification Reported Allergen(s) Allergy Type Date of Onset Reaction(s) Facility (20 sources) gabapentin; Translations: [gabapentin] Drug Allergy 3 Other, unknown [facility] Comment on above: mental status change s (1 source) gabapentin Drug Allergy 5 [facility] Repository (1 source) Amitriptyline; Translations: [amitriptyline] Drug Allergy unknown [facility] (1 source) amLODIPine; Translations: [amlodipine] Drug Allergy unknown [facility] (1 source) atorvastatin; Translations: [atorvastatin] Drug Allergy unknown antibiotic [facility] (1 source) FLUoxetine; Translations: [fluoxetine] Drug Allergy unknown [facility] (1 source) hydroCHLOROthia zide; Translations: [hydrochlorothi azide] Drug Allergy unknown [facility] (1 source) Lisinopril; Translations: [lisinopril] Drug Allergy unknown [facility] (1 source) Losartan; Translations: [losartan] Drug Allergy unknown [facility] Medications Current Medications Medication Drug Class(es) Dates [...] on above: Take 2 tablets by mo meh every 6 hours as needed for pain for up to 14 days. acetaminophen 325 mg / oxyCODONE hydrochloride 5 mg oral tablet (1 source) Opioid Agonist Start: 01-28-20 take 1 tablet by mouth every six hours as needed for pain Oxycodone-Acetamino phen (Endocet) 5-325 mg tablet Active 1 {tbl} PO EVERY 6 HOURS as needed for pain 8 2 0 January 27, 2025 Closed fracture of left proximal humerus amoxicillin 500 mg oral capsule (2 sources) Penicillin-class Antibacterial Start: 02-23-20 take 500 mg by mouth every twelve hours Amoxicillin Active 500 MG PO Q12H February 22, 2021 12:00am anastrozole 1 mg oral tablet (20 sources) Aromatase Inhibitor Start: 04-20-20 End: 12-12-19 take 1 tablet by mouth once daily Anastrozole 1 mg tablet Active 1 mg PO DAILY October 05, 2023 12:00am Comment on above: Take 1 tablet by efrem th once daily. Bilateral wrist splints (20 sources) Start: 12-22-19 Bilateral wrist splints Active 0 .ROUTE .MEDSUPPLY 2 0 December 21, 2022 4:24pm Carpal tunnel syndrome, bilateral upper limbs Carpal tunnel syndrome (ICD 10 G56.03) Right and left wrist splints to be [...] splints Disc ontinued 0 .ROUTE .MEDSUPPLY 2 0 December 06, 2022 12:00am December 21, 2022 4:25pm Carpal tunnel syndrome, bilateral upper limbs Carpal tunnel syndrome (ICD 10 G56.03) Right and left wrist splints to be [...] 2019 12:00am As directed Blood-Glucose Meter misc (7 sources) Start: 01-24-2019 Blood-Glucose Meter misc Active 0 .ROUTE .MEDSUPPLY January 24, 2019 12:00am As directed Start: 01-24-2019 Blood-Glucose Meter misc Active 0 [...] Comment on above: Take 1 capsule by mo [facility] every 12 hours for 10 days. cefdinir 300 mg oral capsule (2 sources) Cephalosporin Antibacterial Start: 12-06-2024 take 1 capsule by mouth twice daily Cefdinir 300 mg capsule Active 300 mg PO TWICE A DAY 13 0 December 06, 2024 12:00am cholecalciferol 0.05 mg oral capsule (15 sources) Vitamin D Start: 2022 take 1 capsule by mouth once daily Cholecalciferol (Vitamin D3) 50 mcg (2,000 unit) capsule Active 50 ug PO DAILY 2022 12:00am cholecalciferol, vitamin D3, (D3 ORAL) (20 sources) cholecalciferol, vitamin D3, (D3-1999 ORAL) Active cholecalciferol, vitamin D3, (D3-1999 ORAL) ciprofloxacin 250 mg oral tablet (20 sources) Quinolone Antimicrobial Start: 03-19-2025 End: 03-24-2025 ciprofloxacin 250 mg oral tablet Dose : 250 mg = 1 tab(s), Oral, q12h, X 5 day(s), # 10 tab(s), 0 Refill(s), 03/24/25 3:01:00 PM EST, Pharmacy: [facility] [id number], 155, cm, 03/19/25 14:24:00 EST, Height, 79.3, kg, 03/19/25 14:24:00 EST, Dosing Weight Start Date: 03/19/25 Stop Date: 03/24/25 Status: Ordered Medication Dispense Status: Completed Quantity: 10.0 Unit: tab(s) Total Allowed Fills: 1 Fills Dispensed: 0 Start: 09-17-2022 End: 09-24-2022 take 1 tablet by mouth twice daily Ciprofloxacin Hcl 500 mg tablet Discontinued 500 mg PO TWICE A DAY 14 7 0 September 17, 2022 11:33am September 23, 2022 12:00am September 24, 2022 12:04am Start: 01-17-2021 End: 01-24-2021 take 1 tablet by mouth twice daily Ciprofloxacin Hcl 500 mg tablet Discontinued 500 mg PO TWICE A DAY 14 7 0 January 17, 2021 12:00am January 23, 2021 12:00am January 24, 2021 12:01am clarithromycin 500 mg oral tablet (2 sources) [...] 10 mg PO TWICE A DAY 60 0 March 02, 2021 12:00am March 21, 2021 [...] 12:00am Comment on above: Take by mouth. DULoxetine 60 mg delayed release oral capsule (20 sources) Serotonin and Norepinephrine Reuptake Inhibitor Start: 09-04-2023 End: 11-07-2024 DULoxetine 60 mg oral delayed release capsule Dose : 60 mg = 1 cap(s), Oral, qDay, 0 Refill(s) Start Date: 10/04/23 Status: Ordered Medication Dispense Status: Completed Total Allowed Fills: 1 Fills Dispensed: 0 Start: 03-16-2023 End: 09-04-2023 take 1 capsule by mouth at bedtime Duloxetine 30 mg capsule,delayed release(DR/EC) Discontinued 30 mg PO AT BEDTIME 30 4 April 02, 2023 3:58pm September 04, 2023 4:15pm Start: 03-16-2023 End: 04-02-2023 take 1 capsule by mouth once daily at bedtime Duloxetine 60 mg capsule,delayed release(DR/EC) Discontinued 60 mg PO AT BEDTIME 30 March 16, 2023 12:00am April 02, 2023 3:58pm Begin after completing one week course of duloxetine 30mg nightly. Comment on above: Take 30 mg by mouth once daily. for neuropathy ferrous sulfate (3 sources) take 1 tablet by mouth once daily ferrous sulfate (IRON ORAL) Take 1 tablet by mouth once daily. Active ibuprofen 600 mg oral tablet (20 sources) Nonsteroidal Anti-inflammatory Drug Start: 02-06-2023 ibuprofen 600 mg oral tablet Dose : 600 mg = 1 tab(s), Oral, QID, PRN as needed for pain, # 40 tab(s), 0 Refill(s) Start Date: 02/06/23 Status: Ordered Medication Dispense Status: Completed Quantity: 40.0 Unit: tab(s) Total Allowed Fills: 1 Fills Dispensed: 0 Start: 01-09-2023 End: 01-23-2023 take 1 tablet by mouth every six hours as needed ibuprofen (MOTRIN) 600 mg tablet Take 1 tablet by mouth every 6 hours as needed for pain for up to 14 days. 24 tablet 0 01/09/2023 01/23/2023 Active Start: 03-08-2022 take 1 tablet by eferm th every six hours as needed for [...] 2019 12:11pm take 1 capsule by mo uth every six hours as needed Ibuprofen 200 mg cap Take 200 mg by mouth every 6 hours as needed for pain. Active Comment on above: Take 200 mg by mouth every 6 hours as needed for pain. Take 1 tablet by efrem th every 6 hours as needed for pain for up to 14 days. 1.5 ml insulin glargine 300 unt/ml pen injector (20 sources) Insulin Analog Start: 5 inject 1 dose by subcutaneous injection once daily Maksim Gutierrez Prefilled Pen 300 units/mL subcutaneous solution Dose : 55 unit(s) =, Subcutaneous, qDay, # 12 mL, 3 Refill(s), Pharmacy: [id number], 155, cm, 10/30/24 13:12:00 EDT, Height, kg, 10/30/24 13:12:00 EDT, Dosing Weight Start Date: 03/12/25 Status: Ordered Medication Dispense Status: Completed Quantity: 12.0 Unit: mL Total Allowed Fills: 4 Fills Dispensed: 0 Start: 02-14-2021 Insulin Glargi ne U-300 Conc (Toujeo Solostar U-300 Insulin) 300 unit/mL (1.5 mL) insulin pen Active 70 U SC 1730 February 14, 2021 12:00am Start: 01-24-2019 End: 02-14-2021 Insulin Glargine U-300 Conc 300 unit/mL (1.5 mL) insulin pen Discontinued SC 36 0 January 24, 2019 12:00am February 14, 2021 10:59am Start: 01-24-2019 End: 02-14-2021 Insulin Glargine U-300 Conc Discontinued SC 36 January 24, 2019 12:00am February 14, 2021 10:59am insulin glargine U-300 conc (TOUJEO SOLOSTAR U-300 INSULIN) 300 unit/mL (1.5 mL) INJECT 70 UNITS SUBCUTANEOUSLY AT BEDTIME Active Comment on above: INJECT 70 UNITS SUBC UTANEOUSLY AT BEDTIME 3 ml insulin lispro 200 unt/ml pen injector (20 sources) Insulin Analog Start: 10-30-2024 HumaLOG KwikPen (CONCENTRATED) 200 units/mL PEN See Instructions, 25 units with breakfast, 30 units with lunch, 55 units with dinner., # 15 mL, 3 Refill(s), Pharmacy: [id number], 155, cm, 10/30/24 13:12:00 EDT, Height, kg, 10/30/24 13:12:00 EDT, Dosing Weight Start Date: 10/30/24 Status: Ordered Medication Dispense Status: Completed Quantity: 15.0 Unit: mL Total Allowed Fills: 4 Fills Dispensed: 0 Start: 04-02-2024 Insulin Lispro (Humalog Alec Kwikpen [...] 12:00am April 02, 2024 11:22am levothyroxine sodium 0.175 mg oral capsule (20 sources) l-Thyroxine Start: 01-19-2025 levothyroxine 175 mcg (0.175 mg) oral capsule Dose : 175 mcg = 1 cap(s), Oral, qDay, # 90 cap(s), 1 Refill(s), Pharmacy: [id number], 155, cm, 10/30/24 13:12:00 EDT, Height, kg, 10/30/24 13:12:00 EDT, Dosing Weight Start Date: 01/19/25 Status: Ordered Medication Dispense Status: Completed Quantity: 90.0 Unit: cap(s) Total Allowed Fills: 2 Fills Dispensed: 0 Start: 10-07-2008 End: 01-03-2023 take 1 tablet [...] daily magnesium oxide 400 mg oral tablet (15 sources) Start: 2022 take 4 tablets by mouth once daily Magnesium Oxide 400 mg magnesium tablet Active 1600 mg PO DAILY 2022 12:00am Start: 2022 take 1600 mg by mouth once roseanne ly Magnesium Oxide Active 1600 MG PO DAILY 2022 12:00am metFORMIN hydrochloride 500 mg oral tablet (20 sources) Biguanide Start: 07-24-2024 MetFORMIN (Eqv -Glucophage XR) 500 mg oral tablet, EXTENDED RELEASE Dose : 2,000 mg = 4 tab(s), Oral, qDay, TAKE 4 TABLETS BY MOUTH ONCE DAILY AT NIGHT, # 360 tab(s), 3 Refill(s), Pharmacy: [id number], 155, cm, 07/24/24 14:44:00 EDT, Height, kg, 07/24/24 14:44:00 EDT, Dosing Weight Start Date: 07/24/24 Status: Ordered Medication Dispense Status: Completed Quantity: 360.0 Unit: tab(s) Total Allowed Fills: 4 Fills Dispensed: 0 Start: 11-12-2022 take 4 tablets by mo uth once daily at bedtime metFORMIN ER (GLUCOPHAGE XR) 500 mg 24 hr tablet Take 4 tablets by mouth daily at bedtime. 11/12/2022 Active Start: 11-12-2022 metFORMIN ER ( GLUCOPHAGE XR) 500 mg 24 hr tablet Start: 01-24-2019 Metformin 500 mg tablet extended release 24 hr Active 2000 mg PO AT BEDTIME 360 0 January 24, 2019 12:00am Start: 01-24-2019 take [...] MG PO before meals and at bedtime 60 March 07, 2021 12:00am metroNIDAZOLE 500 mg oral tablet (20 sources) Nitroimidazole Antimicrobial Start: 021 take 500 mg by mouth every twelve [...] (20 sources) Angiotensin 2 Receptor Josh Start: take 2 tablets by mouth once daily Olmesartan (Benicar) 20 mg tablet Active 40 mg PO DAILY November 15, 2022 1:13pm Start: 08-19-2020 take 1 tablet by efrem th once daily olmesartan (BENICAR) 40 mg tablet Take 40 mg by mouth once daily. 11/15/2022 Active Start: 12-03-2014 End: 01-03-2023 take 1 tablet by mouth once daily Olmesartan (Benicar) 20 mg tablet Discontinued 20 mg PO DAILY December 03, 2014 12:00am November 15, 2022 1:16pm Comment on above: Take 20 mg by mouth once daily. Take one(1) tablet daily. Take 40 mg by mouth once daily. omeprazole 40 mg delayed release oral capsule (20 sources) Proton Pump Inhibitor Start: 06-12-2024 take 1 capsule by mouth twice daily omeprazole 40 mg oral delayed release capsule TAKE 1 CAPSULE BY MOUTH TWICE DAILY Start Date: 06/12/24 Status: Ordered Medication Dispense Status: Completed Total Allowed Fills: 1 Fills Dispensed: 0 Start: 04-02-2024 End: 06-17-2024 take [id number] capsule by mouth twice daily, then take 1 capsule by mouth once daily Omeprazole 40 mg capsule,delayed release(DR/EC) Discontinued 40 mg PO TWICE A DAY 44 0 April 02, 2024 11:59am June 17, 2024 9:39am abdominal pain x2 until 04/09 then 1 tablet QD after that Start: 04-02-2024 End: 04-02-2024 take 0.5 capsule by mouth twice daily, then take 1 capsule by mouth once daily Omeprazole 40 mg capsule,delayed release(DR/EC) Discontinued 40 mg PO TWICE A DAY April 02, 2024 1:00am April 02, 2024 11:59am x2 until 04/04 then 1 tablet qd after that ondansetron 4 mg disintegrating oral tablet (20 sources) Serotonin-3 Receptor Antagonist Start: 01-27-2025 take 1 tablet by mouth every six hours as needed for nausea and vomiting Ondansetron 4 mg tablet,disintegrating Active 4 mg PO EVERY 6 HOURS as needed for nausea and vomiting 20 0 January 27, 2025 12:00am Start: 04-07-2024 End: 05-30-2024 take 1 tablet by mouth every eight [...] 8 HOURS NEEDED as needed for Nausea 14 0 March 30, 2024 1:00am April 02, 2024 11:20am Start: 08-17-2022 End: 11-15-2022 take 1 tablet by mouth every eight hours as needed for nausea Ondansetron 4 mg tablet,disintegrating Discontinued 4 mg PO EVERY 8 HOURS NEEDED as needed for Nausea 10 0 August 17, 2022 12:00am November 15, 2022 1:15pm Start: 01-24-2021 take 4 mg by mouth e very six hours Ondansetron Active 4 MG PO EVERY 6 HOURS January 24, 2021 12:00am pregabalin 200 mg oral capsule (20 sources) Start: 01-19-2025 End: 07-18-2025 pregabalin 200 mg oral capsu le Dose : 200 mg = 1 cap(s), Oral, BID, # 180 cap(s), 1 Refill(s), Pharmacy: [facility], Polyneuropathy, 155, cm, 10/30/24 13:12:00 EDT, Height, 79.2, kg, 10/30/24 13:12:00 EDT, Dosing Weight Start Date: 01/19/25 Stop Date: 07/18/25 Status: Ordered Medication Dispense Status: Completed Quantity: 180.0 Unit: cap(s) Total Allowed Fills: 2 Fills Dispensed: 0 Indications: Polyneuropathy, unspecified; Start: 12-03-2014 End: 11-07-2024 take 1 capsule by mouth twice daily Pregabalin (Lyrica) 200 mg capsule Discontinued 200 mg PO TWICE A DAY 180 0 April 24, 2024 5:39pm May 13, 2024 2:53pm Polyneuropathy Polyneuropathy, unspecified Comment on above: Take 200 mg by mouth twice daily. rifAXIMin 550 mg oral tablet (2 sources) Rifamycin Antibacterial Start: 02-15-20 take 1 tablet by mouth three times daily Rifaximin (Xifaxan) 550 mg tablet Active 550 MG PO THREE TIMES A DAY February 14, 2021 12:00am rosuvastatin calcium 40 mg oral tablet (20 sources) HMG-CoA Reductase Inhibitor Start: 07-25-19 rosuvastatin 40 mg oral tablet Dose : 40 mg = 1 tab(s), Oral, qDay, # 90 tab(s), 1 Refill(s), Pharmacy: [facility], 155, cm, 07/24/24 14:44:00 EDT, Height, kg, 07/24/24 14:44:00 EDT, Dosing Weight Start Date: 07/24/24 Status: Ordered Medication Dispense Status: Completed Quantity: 90.0 Unit: tab(s) Total Allowed Fills: 2 Fills Dispensed: 0 Start: 09-20-2022 take 1 tablet by efrem th once daily Rosuvastatin 20 mg tablet Active [...] 12:00am vitamin B comple x (SUPER B [id number] ORAL) Active vitamin B comple x (SUPER B [id number] ORAL) Completed/Discontinued Medications Medication Drug Class(es) Dates [...] 4 HOURS NEEDED as needed for Pain 5 0 December 13, 2014 12:00am January 24, 2019 12:10pm Start: 12-13-2014 End: 01-24-2019 take 1 tablet by mouth every four hours as needed Hydrocodone-Acetaminophen Discontinued 1 - 2 TABLET PO EVERY 4 HOURS NEEDED 5 December 13, 2014 12:00am January 24, 2019 12:10pm Comment on above: Take 1 tablet by efrem th every 8 hours as needed for pain. cephalexin 500 mg oral capsule (13 sources) Cephalosporin Antibacterial Start: End: take 1 capsule by mouth every twelve hours Cephalexin 500 mg capsule Discontinued 500 mg PO Q12H 20 10 0 June 28, 2023 1:00am July 07, 2023 [...] 03, 2014 12:00am January 24, 2019 12:10pm diclofenac sodium 75 mg delayed release oral [...] day when flaring has subsided, as directed. ergocalciferol (vitamin D2) 1,000 unit capsule (20 sources) Start: 01-24-2019 End: 2022 take 1 capsule by mouth once daily ergocalciferol (vitamin D2) 1,000 unit capsule Discontinued 1000 UNIT PO DAILY January 23, 2019 11:00pm 2022 2:07pm Start: 01-24-2019 End: 2022 take 1 capsule by mouth once daily ergocalciferol (vitamin D2) 1,000 unit capsule Discontinued 1000 UNIT PO DAILY January 24, 2019 12:00am 2022 3:07pm Start: 01-24-2019 take 1 capsule by [facility] once daily ergocalciferol (vitamin D2) 1,000 unit capsule Active 1000 UNIT PO DAILY January 23, 2019 11:00pm Start: 01-24-2019 take 1 capsule by [facility] once daily ergocalciferol (vitamin D2) 1,000 unit capsule Active 1000 UNIT PO DAILY January 24, 2019 12:00am Ergocalciferol (Vitamin D2) 1,000 unit capsule (7 sources) Start: 01-24-2019 End: 2022 Ergocalciferol (Vitamin D2) 1,000 unit capsule Discontinued 1000 U PO DAILY 0 January 24, 2019 12:00am 2022 3:07pm Start: 01-24-2019 End: 2022 Ergocalciferol (Vitamin D2) 1,000 unit capsule Discontinued 1000 U PO DAILY January 24, 2019 12:00am 2022 3:07pm famotidine 10 mg oral tablet (20 sources) Histamine-2 Receptor Antagonist Start: 03-08-2022 End: 11-15-2022 take 1 tablet by mouth at bedtime Famotidine (Acid Member Services Coordinator (Famotidine)) 10 mg Tablet Discontinued 10 mg [...] / neomycin 3.5 mg/ml / polymyxin b [id number] unt/ml otic suspension (20 sources) Aminoglycoside Antibacterial, Polymyxin-class Antibacterial, Corticosteroid Start: 01-24-2019 End: 02-01-2019 Neomycin-Polymyxin- Hc 3.5-10,000-1 mg/mL-unit/mL-% drops,suspension Discontinued 3 NMA OTIC Q4H 10 7 0 January 24, 2019 12:00am January 30, 2019 12:00am February 01, 2019 12:08am apply to (cotton) wick; replace wick every 24 hours Start: 01-24-2019 End: 02-01-2019 Bfoqtsmt-Xieivpjde-Pd Discon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 female with past medical history of hypercholesteremia, GERD, chronic kidney disease, hyperlipidemia, hypertension who presents to the emergency department the chief complaint of left shoulder and elbow pain. Patient states that around 4 AM she got up to use the restroom and states that she slipped on something causing her to fall land on her left shoulder and elbow. States that she did not hit her head she did not pass out. Patient denies any blood thinning medications. She states that the pain is not getting better therefore she came here to be further evaluated [facility] Medical History Cancer Thyroid disease Diabetes Leg [...] mcg tablet 150 mcg PO DAILY 12/03/14 06/03/24 08:00 History blood sugar diagnostic #100 ea 01/24/19 03/15/22 History blood-glucose meter #1 ea 01/24/19 03/15/22 History metformin 500 mg tablet,extended 2,000 mg PO QHS #360 tabs 01/24/19 03/15/22 History release 24 hr insulin glargine U-300 conc 300 70 unit subcut 1730 02/14/2105/23 History unit/mL (1.5 mL) subcutaneous pen (Toujeo SoloStar U-300 Insulin) ibuprofen 400 mg tablet 400 mg PO Q6H PRN Pain 03/08/22 History olmesartan 20 mg tablet (Benicar) 40 mg PO DAILY 11/15/22 06/03/24 08:00 History cholecalciferol (vitamin D3) 50 50 mcg PO DAILY 11/27/22 Unknown H istory mcg (2,000 unit) capsule diphenhydramine HCl 25 mg capsule 25 mg PO QHS PRN sleep 11/27/22 U nknown History (Benadryl) magnesium oxide 1,600 mg PO DAILY 11/27/22 Unknown History rosuvastatin 20 mg tablet 20 mg PO DAILY 11/27/22 Unknown Hi story Bilateral wrist splints #2 ea 12/21/22 Unknown Rx anastrozole 1 mg tablet 1 mg PO DAILY 10/05/23 Unknown His tory insulin lispro 100 unit/mL 40 unit subcut .1/2 HR PRIOR TO Unknown History subcutaneous half-unit pen MEAL (Humalog Alec KwikPen (U-100)) ondansetron HCl 4 mg tablet 4 mg PO Q8H PRN nausea and vomitin g 05/30/24 Unknown History omeprazole 40 mg capsule,delayed 40 mg PO BID abdominal pain 90 09/05 Unknown Rx release days #180 caps duloxetine 60 mg capsule,delayed 60 mg PO QHS #90 caps 11/07/24 Unk nown Rx release pregabalin 200 mg capsule 200 mg PO BID 11/07/24 Unknown His tory cefdinir 300 mg capsule 300 mg PO BID #13 caps 12/06/24 Un known Rx ondansetron 4 mg disintegrating 4 mg PO Q6H PRN nausea and 5 Unknown Rx tablet vomiting #20 tabs oxycodone-acetaminophen 5 mg-325 1 tab PO Q6H PRN pain 2 days #8 Unknown Rx mg tablet (Endocet) tabs Allergy/AdvReac Type Severity Reaction Status Date / Time gabapentin AdvReac Severe Other Verified 01/27/25 12:49 Family History Father Cancer lung/liver/pancreas Myocardial infarction Heart disease Grandfather Rectal cancer paternal Surgical History History of esophagogastroduodenoscopy (EGD) History of back surgery Hx of right mastectomy History of right breast biopsy ( 11/2022) S/P ORIF (open reduction internal fixation) fracture Hx of arthroscopic knee surgery Hx of tubal ligation Social History housing: house Smoking Status: Former smoker alcohol intake: never ROS ROS ED ROS Narrative Constitutional: Denies any lightheadedness, dizziness, fevers, chills, headaches Eyes: Denies double vision Cardiovascular: Denies chest pain Respiratory: Denies shortness of breath Abdomen: Denies nausea vomiting diarrhea : Denies urinary symptoms Neur (more content not included)... Normal [facility] Humerus min 2 Viewson 2024 Humerus min 2 Views [facility] Imaging Services [address] [place] [address] Humerus min 2 Views MR#: [id number] Acct: [id number] Name: SULEIMAN RAMSEY Rep #: [id number] : 1945 F 79 From: Daron weaver MD PCP: Dr. Benny Bosch MD Status: REG ER Study: Humerus min 2 Views Date of Exam: 01/27/25 Exam# [id number] Ordering Dr: Dewey Pardo DO PROCEDURE: HUMERUS MIN 2 VIEWS 01/27/2025 REASON FOR EXAM: FALL TECHNIQUE: Procedure Code: RADHUM Modality: DX Procedure: HUMERUS MIN 2 VIEWS Laterality: Left shoulder COMPARISON: None FINDINGS: Bones: Impacted nondisplaced fracture of the surgical neck of the humerus with extension to the greater tuberosity. Joints: Normal alignment at the shoulder and elbow. Soft tissues: Soft tissue swelling. Other: RAD/Humerus min 2 Views IMPRESSION: Nondisplaced impacted fracture of the proximal surgical neck of the left humerus with extension to the greater tuberosity. Soft tissue swelling. Reading Location: [place] [address] CC: Dr. Benny Bosch MD; Dr. Dewey Pardo DO Professor/Nurse Anesthetist: Signed Normal [facility] Shoulder min 2 Viewson 01-27 Shoulder min 2 Views [facility] Imaging Services [address] [place] [place], [place] [address] Shoulder min 2 Views MR#: [id number] Acct: [id number] Name: SULEIMAN RAMSEY Rep #: [id number] : 1945 F 79 From: Daron weaver MD PCP: Dr. Benny Bosch MD Status: REG ER Study: Shoulder min 2 Views Date of Exam: 01/27/25 Exam# [id number] Ordering Dr: Dewey Pardo DO PROCEDURE: SHOULDER MIN 2 VIEWS 01/27/2025 REASON FOR EXAM: FALL TECHNIQUE: Procedure Code: RADSH Modality: DX Procedure: SHOULDER MIN 2 VIEWS Laterality: Left shoulder COMPARISON: None FINDINGS: Bones: Nondisplaced impacted fracture of the proximal surgical neck of the humerus with extension of the greater tuberosity. Joints: Normal alignment. Mild degenerative changes. Soft tissues: Soft tissue swelling. Other: RAD/Shoulder min 2 Views IMPRESSION: Nondisplaced impacted fracture of the surgical neck of the humerus with extension to the greater tuberosity. Soft tissue swelling. Reading Location: [place] [address] CC: Dr. Benny Bosch MD; Dr. Dewey Pardo DO Professor/Nurse Anesthetist: Signed Normal [facility] Urine Cultureon 12-08-2024 URC Escherichia coli [place] Count 80,000-100,000 Escherichia coli: REACTION Ampicillin Islt SIMIN >=32 Ampicillin+Sulbac Islt SIMIN >=32 R Cefepime Islt SIMIN <=0.12 S cefTRIAXone Islt SIMIN <=0.25 S Ciprofloxacin Islt SIMIN 0.12 S B-Lactamase Extended Susc Islt NEG Gentamicin Islt SIMIN <=1 S levoFLOXacin Islt SIMIN 0.5 S Meropenem Islt SIMIN <=0.25 S Nitrofurantoin Islt SIMIN 32 S Pip+Tazo Islt SIMIN <=4 S TMP SMX Islt SIMIN <=20 S Normal [facility] Comment on above: Performed By: #### M 100.2200 ####[facility] [address] [place], [place], [address] 12 Lead EKGon 12-06-2024 12 Lead EKG [facility] Services [address] [place] [address] 12 Lead EKG 12/06/24 1333 MR#: [id number] Acct: [id number] Name: SULEIMAN RAMSEY Rep #: [id number] : 1945 79 From: Gold Farmer MD Attending Dr: Status: DEP ER Ordering Dr: Stacey Ward Date: 12/06/24 Location: ED Sex: F C Admitted: Test Reason : FALL Blood Pressure : */* mmHG Vent. Rate : 89 BPM Atrial Rate : 89 BPM P-R Int : 260 ms QRS Dur : 124 ms QT Int : 378 ms P-R-T Axes : 57 -45 99 degrees QTcB Int : 459 ms Sinus rhythm with 1st degree A-V block Left axis deviation Left bundle branch block Abnormal ECG Confirmed by GOLD FARMER MD ([id number]), non linear editor REBECCA SCHREIBER ([id number]) on 12/08/2024 7:29:32 AM Referred By: Confirmed By: GOLD FARMER MD 12/08/24728 Date Gold Farmer MD CC: Dr. Benny Bosch MD; Dr. You Degroot DO; NOVA Max Signed Normal [facility] Absolute lymphocyte countOrd ered By: Stacey Ward on 12-06-2024 Lymphocytes Auto (Unsp spec) [#/Vol] 1.92 10*3/uL 0.83-4.51 [facility] Absolute neutrophil countOrd ered By: Stacey Ward on 12-06-2024 Neutrophils (Bld) [#/Vol] 7.3 10*3/uL 2.0-7.7 [facility] Anion gap in Serum or Plasma Ordered By: Stacey Ward on 12-06-2024 Anion gap [Moles/Vol] 15 mmol/L 5-15 [facility] Automated lymphocyte count a s percentage of total leukocytesOrdered By: Stacey Ward on 12-06-2024 Lymphocytes/100 WBC Auto (Unsp spec) 18.0 % Low 19-41 [facility] BUN/creatinine ratioOrdered By: Stacey Ward on 12-06-2024 Urea nitrogen/Creatinine [Mass ratio] 24.3 mg/mg High 10-20 [facility] Basic Metabolic Profile (BMP )on 12-06-2024 BUN/CRE 24.3 RATIO High 10- [facility] Comment on above: Performed By: #### L 501.4021, L501.9520 #### [facility] [address] [place], [address] Calcium [Mass/Vol] 10.2 mg/dL Normal 7.6-11.0 [facility] Comment on above: Performed By: #### L 501.4021, L501.9520 #### [facility] [address] [place], [address] Chloride [Moles/Vol] 101 mmol/L Normal 98-108 [facility] Comment on above: Performed By: #### L 501.4021, L501.9520 #### [facility] [address] [place], [address] CO2 [Moles/Vol] 17.9 mmol/L Low 21.0-32.0 [facility] Comment on above: Performed By: #### L 501.4021, L501.9520 #### [facility] [address] [place], [address] Creatinine [Mass/Vol] 0.89 mg/dL Normal 0.70-1.20 [facility] Comment on above: Performed By: #### L 501.4021, L501.9520 #### [facility] [address] [place], [address] ECRCL 49.18 ml/min Low 50-250 [facility] Comment on above: Performed By: #### L 501.4021, L501.9520 #### [facility] [address] [place], [address] GAP 15 Normal 5-15 [facility] Comment on above: Performed By: #### L 501.4021, L501.9520 #### [facility] [address] [place], [address] GFR/1.73 sq M.predicted among non-blacks MDRD (S/P/Bld) [Vol rate/Area] 66 mL/min/{1.73_m2} Normal >60 [facility] Comment on above: Result Comment: mL/m in/1.73m2 CKD-EPI Creatinine Equation (2020) Performed By: #### L 501.4021, L501.9520 #### [facility] [address] [place], [address] Glucose [Mass/Vol] 274 mg/dL High 70-99 [facility] Comment on above: Performed By: #### L 501.4021, L501.9520 #### [facility] [address] [place], [address] Potassium [Moles/Vol] 5.0 mmol/L Normal 3.3-5.1 [facility] Comment on above: Performed By: #### L 501.4021, L501.9520 #### [facility] [address] [place], [address] Sodium [Moles/Vol] 134 mmol/L Normal 133-145 [facility] Comment on above: Performed By: #### L 501.4021, L501.9520 #### [facility] [address] [place], [address] Urea nitrogen [Mass/Vol] 22 mg/dL High 4-19 [facility] Comment on above: Performed By: #### L 501.4021, L501.9520 #### [facility] [address] [place], [place], [address] Basophil percentageOrdered B y: Stacey Ward on 12-06-2024 Basophils/100 WBC (Bld) 1.0 % 0-1 [facility] Bilirubin Test strip Ql (U)O rdered By: Stacey Ward on 12-06-2024 Bilirubin Ql (U) Negative Negative [facility] Brain/Head without Contrasto n 12-06-2024 Brain/Head without Contrast [facility] Imaging Services [address] [place] [address] Brain/Head without Contrast MR#: [id number] Acct: [id number] Name: SULEIMAN RAMSEY Rep #: [id number] : 1945 F 79 From: Uday Camacho MD PCP: Dr. Benny Bosch MD Status: REG ER Study: Brain/Head without Contrast Date of Exam: 11/12 11/05 Exam# [id number] Ordering Dr: Stacey Ward PROCEDURE: BRAIN/HEAD WITHOUT CONTRAST 12/06/2024 REASON FOR EXAM: HEAD INJURY TECHNIQUE: BRAIN/HEAD WITHOUT CONTRAST Coronal and Sagittal reconstruction series were provided. One or more dose reduction techniques were used (e.g., Automated exposure control, adjustment of the mA and/or kV according to patient size, use of iterative reconstruction technique. RADIATION DOSE SUMMARY: CTDlvol: 45 mGy DLP: 748 mGycm FINDINGS: There is no intracranial mass. There is no intracranial hemorrhage. No hydrocephalus. Minimal right sphenoid mucosal thickening with small air-fluid levels CT/Brain/Head without Contrast IMPRESSION: Mild atrophy. Sphenoid sinusitis. Reading Location: [facility] CC: Dr. Benny Bosch MD; NOVA Max Professor/Nurse Anesthetist: Signed Normal [facility] CBC W/Diff, Automatedon 11-12 Absolute Lymph 1.92 X10 3/uL Normal 0.83-4.51 [facility] Comment on above: Performed By: #### L 501.4021, L501.20 #### [facility] [address] [place], [address] Absolute Neut 7.3 X10 3/uL Normal 2.0-7.7 [facility] Comment on above: Performed By: #### L 501.4021, L501.9520 #### [facility] [address] [place], [address] Basophils/100 WBC (Bld) 1.0 % Normal 0-1 [facility] Comment on above: Performed By: #### L 501.4021, L501.9520 #### [facility] [address] [place], [address] Eosinophils/100 WBC (Bld) 5.2 % High 0-5 [facility] Comment on above: Performed By: #### L 501.4021, L5.20 #### [facility] [address] [place], [address] Erythrocyte distribution width (RBC) [Ratio] 13.9 % Normal 11.6-14.6 [facility] Comment on above: Performed By: #### L 501.4021, L501.20 #### [facility] [address] [place], [address] Hematocrit (Bld) [Volume fraction] 35.6 % Low 37-47 [facility] Comment on above: Performed By: #### L 501.4021, L5.20 #### [facility] [address] [place], [address] Hemoglobin (Bld) [Mass/Vol] 11.6 g/dL Low 12.0-15.0 [facility] Comment on above: Performed By: #### L 501.4021, L501.9520 #### [facility] [address] [place], [address] IG% 0.500 Normal 0.0-0.9 [facility] Comment on above: Result Comment: IG% - Immature Granulocytes (promyelocytes, myelocytes and metamyelocytes) > 1% indicates that a LEFT SHIFT is Present. Performed By: #### L 501.4021, L501.9520 #### [facility] [address] [place], [address] Lymphocytes/100 WBC (Bld) 18.0 % Low 19-41 [facility] Comment on above: Performed By: #### L 501.4021, L501.9520 #### [facility] [address] [place], [address] MCH (RBC) [Entitic mass] 30.3 pg Normal 27.0-32.0 [facility] Comment on above: Performed By: #### L 501.4021, L501.9520 #### [facility] [address] [place], [address] MCHC (RBC) [Mass/Vol] 32.6 g/dL Normal 32-36 [facility] Comment on above: Performed By: #### L 501.4021, L501.9520 #### [facility] [address] [place], [address] MCV (RBC) [Entitic vol] 93.0 fL Normal 81-99 [facility] Comment on above: Performed By: #### L 501.4021, L501.9520 #### [facility] [address] [place], [address] Monocytes/100 WBC (Bld) 7.3 % Normal 0-10 [facility] Comment on above: Performed By: #### L 501.4021, L501.9520 #### [facility] [address] [place], [address] Neutrophils/100 WBC (Bld) 68.0 % Normal 47-70 [facility] Comment on above: Performed By: #### L 501.4021, L501.20 #### [facility] [address] [place], [address] Nucleated RBC (Bld) [#/Vol] 0 10*3/uL Normal 0-5 [facility] Comment on above: Performed By: #### L 501.4021, L501.9520 #### [facility] [address] [place], [address] Platelet mean volume (Bld) [Entitic vol] 10.6 fL Normal 6.2-12.0 [facility] Comment on above: Performed By: #### L 501.4021, L501.9520 #### [facility] [address] [place], [address] Platelets (Bld) [#/Vol] 254 10*3/uL Normal 150-450 [facility] Comment on above: Performed By: #### L 501.4021, L501.20 #### [facility] [address] [place], [address] RBC (Bld) [#/Vol] 3.83 10*6/uL Low 4.2-5.4 [facility] Comment on above: Performed By: #### L 501.4021, L501.9520 #### [facility] [address] [place], [address] RDW SD 46.6 fl High 35.1-43.9 [facility] Comment on above: Performed By: #### L 501.4021, L501.9520 #### [facility] [address] [place], [address] WBC (Bld) [#/Vol] 10.7 10*3/uL Normal 4.4-11.0 [facility] Comment on above: Performed By: #### L 501.4021, L501.9520 #### [facility] [address] [place], [address] [facility] ([facility]) SULEIMAN RAMSEY Rajendra ([id number]) 1945 F Date Time Provider Department 12/06/24 1:00 PM BRANT ARANGO During your visit today, we recorded the following information about you: Brant Arango APRN.ELECTRICAL INTERN 12/06/2024 1:08 PM Signed Patient came in with complaints of headache dizziness and unsteadiness. Patient says she fell about a week ago did hit her head. Patient does have significant bruising to the right side. Patient says she is having a hard time remembering things. Worried about slow brain bleed. Patient is being referred to the emergency room 's cannot take her now. Allergies As of Date: 12/06/2024 (No Known Allergies) Date Reviewed: 08/18/2024 Reviewed by: Danay Griffin - Fully Assessed Primary Visit Diagnosis:Dizziness [R42] Prescriptions as of 12/06/2024 - ferrous sulfate (IRON ORAL) Take 1 tablet by mouth once daily. - anastrozole (ARIMIDEX) 1 mg tablet Take 1 tablet by mouth once daily. - vitamin B complex (SUPER B YELKAIA-V-21 ORAL) - DULoxetine (CYMBALTA) 30 mg capsule [...] Take 4 tablets by mouth once daily. Problem List As Of Date 12/06/2024 Noted Resolved Rosacea [L71.9] 08/31/2005 06/09/2012 Seborrheic [...] BMI 30-34.9 [E66.811] 01/10/2023 Encounter Status:Closed by BRANT ARANGO on 12/06/24 Normal [facility] Carbon dioxide, total [Moles /volume] in Central venous bloodOrdered By: Stacey Ward on 12-06-2024 CO2 [Moles/Vol] 17.9 mmol/L Low 21.0-32.0 [facility] Chest PA and Lateralon 12-06 Chest PA and Lateral [facility] Imaging Services [address] [place] [id number] Chest PA and Lateral MR#: [id number] Acct: [id number] Name: SULEIMAN RAMSEY Rep #: [id number] : 1945 F 79 From: Arsh Zaragoza MD PCP: Dr. Benny Bosch MD Status: REG ER Study: Chest PA and Lateral Date of Exam: 12/06/24 Exam# [id number] Ordering Dr: Stacey Ward PROCEDURE: CHEST PA AND LATERAL 12/06/2024 REASON FOR EXAM: WEAKNESS, SOB TECHNIQUE: CHEST PA AND LATERAL COMPARISON: 04/24/2024. FINDINGS: The heart is normal in size. The lungs are clear. No acute osseous abnormalities. RAD/Chest PA and Lateral IMPRESSION: NO ACUTE FINDINGS. Reading Location: [id number] CC: Dr. Benny Bosch MD; NOVA Max Professor/Nurse Anesthetist: Signed Normal [facility] Chloride assayOrdered By: Christi Ward on 12-06-2024 Chloride [Moles/Vol] 101 mmol/L 98-108 [facility] Emergency Department Summary on 12-06-2024 Emergency Department Summary [facility] Medical Records Department [address] [place] [address] Emergency Department Summary 12/06/24 MR#: [id number] Acct: [id number] Name: SULEIMAN RAMSEY Rep #: [id number] : 1945 79 From: You Degroot DO PCP: Dr. Benny Bosch MD Status:DEP ER Location: ED HPI History of Present Illness Chief Complaint: Weakness Narrative Narrative: Patient presenting today due to generalized weakness that has been on going over the last week. She reports occasional lightheadedness with ambulating. She denies vertiginous dizziness. She had a mechanical fall last week when she tripped over a rubber mat and hit her head and right arm against a metal door. She does have a small bruise to the right side of her forehead and to her right upper arm. No LOC occurred from that fall, she is not on any blood thinners. She reports intermittent pain to her head since the fall. She denies fevers, chills, chest pain, abdominal pain, nausea, and vomiting. [facility] Medical History Cancer Thyroid disease Diabetes Leg [...] mcg tablet 150 mcg PO DAILY 12/03/14 06/03/24 08:00 History blood sugar diagnostic #100 ea 01/24/19 03/15/22 History blood-glucose meter #1 ea 01/24/19 03/15/22 History metformin 500 mg tablet,extended 2,000 mg PO QHS #360 tabs 01/24/19 03/15/22 History release 24 hr insulin glargine U-300 conc 300 70 unit subcut 1730 02/14/2105/23 History unit/mL (1.5 mL) subcutaneous pen (TouSlanissueo SoloStar U-300 Insulin) ibuprofen 400 mg tablet 400 mg PO Q6H PRN Pain 03/08/22 History olmesartan 20 mg tablet (Benicar) 40 mg PO DAILY 11/15/22 06/03/24 08:00 History cholecalciferol (vitamin D3) 50 50 mcg PO DAILY 11/27/22 Unknown H istory mcg (2,000 unit) capsule diphenhydramine HCl 25 mg capsule 25 mg PO QHS PRN sleep 11/27/22 U nknown History (Benadryl) magnesium oxide 1,600 mg PO DAILY 11/27/22 Unknown History rosuvastatin 20 mg tablet 20 mg PO DAILY 11/27/22 Unknown Hi story Bilateral wrist splints #2 ea 12/21/22 Unknown Rx anastrozole 1 mg tablet 1 mg PO DAILY 10/05/23 Unknown His tory insulin lispro 100 unit/mL 40 unit subcut .1/2 HR PRIOR TO Unknown History subcutaneous half-unit pen MEAL (Humalog Alec KwikPen (U-100)) ondansetron HCl 4 mg tablet 4 mg PO Q8H PRN nausea and vomitin g 05/30/24 Unknown History omeprazole 40 mg capsule,delayed 40 mg PO BID abdominal pain 90 09/05 Unknown Rx release days #180 caps duloxetine 60 mg capsule,delayed 60 mg PO QHS #90 caps 11/07/24 Unk nown Rx release pregabalin 200 mg capsule 200 mg PO BID 11/07/24 Unknown His tory cefdinir 300 mg capsule 300 mg PO BID #13 caps 12/06/24 Un known Rx Allergy/AdvReac Type Severity Reaction Status Date / Time gabapentin AdvReac Severe Other Verified 12/06/24 13:11 Family History Father Cancer lung/liver/pancreas Myocardial infarction Heart disease Grandfather Rectal cancer paternal Surgical History History of esophagogastroduodenoscopy (EGD) History of back surgery Hx of right mastectomy History of right breast biopsy ( 11/2022) S/P ORIF (open reduction internal fixation) fracture Hx of arthroscopic knee surgery Hx of tubal ligation Social History Smoking Status: Former smoker alcohol intake: never ROS ROS ED Constitutional Constitutional ED: Denies chills or fever(s) Cardiovascular Cardiovascular: Denies chest pain Respiratory/Chest Respiratory/Chest: Denies dyspnea Gastrointestinal Gastrointestinal: Denies abdominal pain, nausea or vomiting Genitourinary Genitourinary ED: Denies dysuria, hematuria or urinary frequency Musculoskeletal Musculoskeletal: Denies arthralgias or myalgias Integumentary Reports other Details: Bruise to the right upper arm and right side of forehead ; Denies rash Neurol (more content not included)... Normal [facility] Eosinophil percentageOrdered By: Stacey Ward on 12-06-2024 Eosinophils/100 WBC (Bld) 5.2 % High 0-5 [facility] Erythrocyte distribution wid th ratioOrdered By: Stacey Ward on 12-06-2024 Erythrocyte distribution width (RBC) [Ratio] 13.9 % 11.6-14.6 [facility] Erythrocyte distribution wid th standard deviationOrdered By: Stacey Ward on 12-06-2024 Erythrocyte distribution width (RBC) [Ratio] 46.6 fl High 35.1-43.9 [facility] Glomerular filtration rate ( GFR) estimation/1.73 sq m using serum, plasma, or whole bOrdered By: Stacey Ward on 12-06-2024 GFR/1.73 sq M.predicted among non-blacks MDRD (S/P/Bld) [Vol rate/Area] 66 mL/min/{1.73_m2} >60 [facility] Comment on above: mL/min/1.73m2 CKD-EP I Creatinine Equation (2020) Hematocrit Auto (Bld) [Volum e fraction]Ordered By: Stacey Ward on 12-06-2024 Hematocrit (Bld) [Volume fraction] 35.6 % Low 37-47 [facility] Hemoglobin measurementOrdere d By: Stacey Ward on 12-06-2024 Hemoglobin (Bld) [Mass/Vol] 11.6 g/dL Low 12.0-15.0 [facility] Immature granulocytes/100 WB C Auto (Bld)Ordered By: Stacey Ward on 12-06-2024 Immature granulocytes/100 WBC (Bld) 0.500 % 0.0-0.9 [facility] Comment on above: IG% - Immature Granu locytes (promyelocytes, myelocytes and metamyelocytes) > 1% indicates that a LEFT SHIFT is Present. Ketones Test strip Ql (U)Ord ered By: Stacey Ward on 12-06-2024 Ketones Ql (U) Negative Negative [facility] L501.4021on 12-06-2024 Trop T High Sen 17 ng/L High <=14 [facility] Comment on above: Performed By: #### L 501.4021, L501.9520 #### [facility] [address] [place], [address] MCV (mean corpuscular volume ) determinationOrdered By: Stacey Ward on 12-06-2024 MCV (RBC) [Entitic vol] 93.0 fL 81-99 [facility] Mean corpuscular hemoglobin (MCH) determinationOrdered By: Stacey Ward on 12-06-2024 MCH (RBC) [Entitic mass] 30.3 pg 27.0-32.0 [facility] Mean corpuscular hemoglobin concentration (MCHC) determinationOrdered By: Stacey Ward on 12-06-2024 MCHC (RBC) [Mass/Vol] 32.6 g/dL 32-36 [facility] Mean platelet volume determi nationOrdered By: Stacey Ward on 12-06-2024 Platelet mean volume (Bld) [Entitic vol] 10.6 fL 6.2-12.0 [facility] Microscopic analysis of urin e for red blood cells (RBC)Ordered By: Stacey Ward on 12-06-2024 Microscopic analysis of urine for red blood cells (RBC) 0 SEEN /hpf 0-5 [facility] Monocyte percentageOrdered B y: Stacey Ward on 12-06-2024 Monocytes/100 WBC (Bld) 7.3 % 0-10 [facility] Mucus LM Ql (Urine sed)Order ed By: Stacey Ward on 12-06-2024 Mucus Ql (Urine sed) 1+ /hpf [facility] Neutrophil percentageOrdered By: Stacey Ward on 12-06-2024 Neutrophils/100 WBC (Bld) 68.0 % 47-70 [facility] Nitrite Test strip Ql (U)Ord ered By: Stacey Ward on 12-06-2024 Nitrite Ql (U) Negative Negative [facility] Nucleated red blood cell per centageOrdered By: Stacey Ward on 12-06-2024 Nucleated RBC/100 WBC (Bld) [Ratio] 0 % 0-5 [facility] Pelvis 1 or 2 Viewson 2024 [facility]vis 1 or 2 Views [facility] [address] [place], [place] [id number] Pelvis 1 or 2 Views MR#: [id number] Acct: [id number] Name: SULEIMAN RAMSEY Rep #: [id number] : 1945 F 79 From: Arsh Zaragoza MD PCP: Dr. Benny Bosch MD Status: REG ER Study: Pelvis 1 or 2 Views Date of Exam: 12/06/24 Exam# [id number] Ordering Dr: Stacey Ward PROCEDURE: PELVIS 1 OR 2 VIEWS 12/06/2024 REASON FOR EXAM: PAIN, FALL TECHNIQUE: PELVIS 1 OR 2 VIEWS COMPARISON: None. FINDINGS: No evidence of acute fracture or dislocation. Mild bilateral hip osteoarthrosis. Partially visualized degenerative changes of the spine. RAD/Pelvis 1 or 2 Views IMPRESSION: No acute osseous abnormalities. Reading Location: [id number] CC: Dr. Benny Bosch MD; NOVA Max Professor/Nurse Anesthetist: Signed Normal [facility] Platelet countOrdered By: Christi blockttart Ward on 12-06-2024 Platelets (Bld) [#/Vol] 254 10*3/uL 150-450 [facility] Potassium measurement (mass/ volume)Ordered By: Stacey Ward on 12-06-2024 Potassium (Unsp spec) [Mass/Vol] 5.0 mmol/L 3.3-5.1 [facility] Protein Test strip Ql (U)Ord ered By: Stacey Ward on 12-06-2024 Protein Ql (U) 15 mg/dl High Negative [facility] RBC Auto (Bld) [#/Vol]Ordere d By: Stacey Ward on 12-06-2024 RBC (Bld) [#/Vol] 3.83 10*6/uL Low 4.2-5.4 [facility] Serum creatinine measurement (mass/volume)Ordered By: Stacey Ward on 12-06-2024 Creatinine [Mass/Vol] 0.89 mg/dL 0.70-1.20 [facility] Serum glucose measurement (m ass/volume)Ordered By: Stacey Ward on 12-06-2024 Glucose [Mass/Vol] 274 mg/dL High 70-99 [facility] Serum or plasma calcium wale urement (mass/volume)Ordered By: Stacey Ward on 12-06-2024 Calcium [Mass/Vol] 10.2 mg/dL 7.6-11.0 [facility] Serum or plasma urea nitroge n measurement (mass/volume)Ordered By: Stacey Ward on 12-06-2024 Urea nitrogen [Mass/Vol] 22 mg/dL High 4-19 [facility] Sodium levelOrdered By: Ras Ward on 12-06-2024 Sodium [Moles/Vol] 134 mmol/L 133-145 [facility] Squamous epithelial cells de tection in urine sediment by light microscopyOrdered By: Stacey Ward on 07-26-2025 Epithelial cells.squamous LM Ql (Urine sed) 0-5 SEEN /hpf 5-10 [facility] TSH DL <= 0.005 mIU/L QnOrde red By: Stacey Ward on 12-06-2024 TSH Qn 1.370 uIU/mL 0.300-4.20 0 [facility] Thyroid Stim Hormone (TSH)on 12-06-2024 TSH 1.370 uIU/mL Normal 0.300-4.20 0 [facility] Comment on above: Performed By: #### L 501.4021, L501.9520 #### [facility] [address] [facility] [address] Troponin T HS 2 HRon 025 Trop T High Sen 18 ng/L High <=14 [facility] Comment on above: Performed By: #### L 499.0042 #### [facility] [address] [facility] [address] Troponin T.cardiac [Mass/vol ume] in Serum or Plasma by High sensitivity methodOrdered By: Stacey Ward on 12-06-2024 Troponin T.cardiac High sensitivity method [Mass/Vol] 18 ng/L High <14 [facility] Troponin T.cardiac High sensitivity method [Mass/Vol] 17 ng/L High <14 [facility] Urinalysis, Completeon 12-06 Mucus Ql (Urine sed) 1+ /hpf Normal [facility] Comment on above: Order Comment: DEONNA CTOR TO SPECIFY Performed By: #### L 400.0001 ####[facility] [address] [place], [address] BACTERIA 2+ /hpf Normal None Seen [facility] Comment on above: Order Comment: DEONNA CTOR TO SPECIFY Performed By: #### L 400.0001 ####[facility] [address] [place], [address] EPI,SQUAMOUS 0-5 SEEN Normal 5-10 [facility] Comment on above: Order Comment: DEONNA CTOR TO SPECIFY Performed By: #### L 400.0001 ####[facility] [address] [place], [address] WBC 5-10 SEEN Normal 0-5 [facility] Comment on above: Order Comment: DEONNA CTOR TO SPECIFY Performed By: #### L 400.0001 ####[facility] [address] [place], [address] RBC 0 SEEN Normal 0-5 [facility] Comment on above: Order Comment: DEONNA CTOR TO SPECIFY Performed By: #### L 400.0001 ####[facility] [address] [place], [place], [id number] Urine clarityOrdered By: Karl Ward on 12-06-2024 Clarity (U) Sl. Cloudy Clear [facility] Urine color determinationOrd ered By: Stacey Ward on 12-06-2024 Color (U) Yellow Yellow [facility] Urine cultureOrdered By: Karl Ward on 12-06-2024 Bacteria identified Cx Nom (U) Escherichia coli Abnormal [facility] Urine glucose detectionOrder ed By: Stacey Ward on 12-06-2024 Glucose Ql (U) 50 mg/dl High Normal [facility] Urine leukocyte esterase det ection by dipstickOrdered By: Stacey Ward on 12-06-2024 Leukocyte esterase Test strip Ql (U) 500 /ul High Negative [facility] Urine pHOrdered By: Jonah Ward on 12-06-2024 pH (U) 6.0 [pH] 5.0 - 8.0 [facility] Urine sediment bacteria coun t by microscopy (number/high power field)Ordered By: Stacey Ward on 12-06-2024 Bacteria LM.HPF (Urine sed) [#/Area] 2 /[HPF] None Seen [facility] Urine specific gravity measu rementOrdered By: Stacey Ward on 12-06-2024 Specific gravity (U) [Rel density] 1.010 1.002-1.03 0 [facility] Urine urobilinogen measureme ntOrdered By: Stacey Ward on 12-06-2024 Urobilinogen Ql (U) Normal mg/dl Normal [facility] White blood cell (WBC) count Ordered By: Stacey Ward on 12-06-2024 WBC (Bld) [#/Vol] 10.7 10*3/uL 4.4-11.0 [facility] White blood cell countOrdere d By: Stacey Ward on 12-06-2024 White blood cell count 5-10 SEEN /hpf 0-5 [facility] Neurology Visit Reporton Neurology Visit Report [facility] [address], [address] [place] [address] OFFICE VISIT Date of Service: 11/06/24 MR#: [id number] Acct: [id number] Name: SULEIMAN RAMSEY Rep #: [id number] : 1945 Provider: Dr. Cong wilson MD Age/Sex: 78/F [place] [facility] [place] Signed HPI HPI Chief Complaint: Details: [...] bilateral facet (more content not included)... Normal [facility] Anion gap in Serum or Plasma Ordered By: Leora Cokerfifi on 10-30-2024 Anion gap [Moles/Vol] 14 mmol/L 5-15 [facility] BUN/creatinine ratioOrdered By: Leora [facility] on 10-30-2024 Urea nitrogen/Creatinine [Mass ratio] 22.7 mg/mg High 10-20 [facility] Bilirubin, totalOrdered By: Leora Ragfifi on 10-30-2024 Bilirubin [Mass/Vol] 0.40 mg/dL 0.00-1.30 [facility] Calculated very low density lipoprotein (VLDL) cholesterol measurementOrdered By: Leora Ragfifi on 10-30-2024 Calculated very low density lipoprotein (VLDL) cholesterol measurement 48 mg/dL High 5-40 [facility] Carbon dioxide, total [Moles /volume] in Central venous bloodOrdered By: Leora Villa on 10-30-2024 CO2 [Moles/Vol] 19.8 mmol/L Low 21.0-32.0 [facility] Chloride assayOrdered By: Bryan Villa on 10-30-2024 Chloride [Moles/Vol] 104 mmol/L 98-108 [facility] Comprehensive Metabolic Prof ilon 10-30-2024 Albumin [Mass/Vol] 4.0 g/dL Normal 3.4-4.8 [facility] Comment on above: Order Comment: SINDY Cordova FAX LABS TO [phone] Performed By: #### L 566.0042 #### [facility] [address] [place], [address] Albumin/Globulin [Mass ratio] 1.2 {ratio} Normal 0.9-2.4 [facility] Comment on above: Order Comment: PLEAS E FAX LABS TO [phone] Performed By: #### L 499.0042 #### [facility] [address] [place], [address] ALK PHOS 84 U/L Normal 35-104 [facility] Comment on above: Order Comment: PLEAS E FAX LABS TO [phone] Performed By: #### L 499.0042 #### [facility] [address] [place], [address] ALT [Catalytic activity/Vol] 17 U/L Normal <=34 [facility] Comment on above: Order Comment: PLEAS E FAX LABS TO [phone] Performed By: #### L 499.0042 #### [facility] [address] [place], [address] AST [Catalytic activity/Vol] 59 U/L High <=31 [facility] Comment on above: Order Comment: PLEAS E FAX LABS TO [phone] Performed By: #### L 499.0042 #### [facility] [address] [place], [address] Bilirubin [Mass/Vol] 0.40 mg/dL Normal 0.00-1.30 [facility] Comment on above: Order Comment: PLEAS E FAX LABS TO [phone] Performed By: #### L 499.0042 #### [facility] [address] [place], [address] BUN/CRE 22.7 RATIO High 10-20 [facility] Comment on above: Order Comment: PLEAS E FAX LABS TO [phone] Performed By: #### L 499.0042 #### [facility] [address] [place], [address] Calcium [Mass/Vol] 10.1 mg/dL Normal 7.6-11.0 [facility] Comment on above: Order Comment: PLEAS E FAX LABS TO [phone] Performed By: #### L 499.0042 #### [facility] [address] [place], [address] Chloride [Moles/Vol] 104 mmol/L Normal 98-108 [facility] Comment on above: Order Comment: PLEAS E FAX LABS TO [phone] Performed By: #### L 499.0042 #### [facility] [address] [place], [address] CO2 [Moles/Vol] 19.8 mmol/L Low 21.0-32.0 [facility] Comment on above: Order Comment: PLEAS E FAX LABS TO [phone] Performed By: #### L 499.0042 #### [facility] [address] [place], [address] Creatinine [Mass/Vol] 1.02 mg/dL Normal 0.70-1.20 [facility] Comment on above: Order Comment: PLEAS E FAX LABS TO [phone] Performed By: #### L 499.0042 #### [facility] [address] [place], [address] GAP 14 Normal 5-15 [facility] Comment on above: Order Comment: PLEAS E FAX LABS TO [phone] Performed By: #### L 499.0042 #### [facility] [address] [place], [address] GFR/1.73 sq M.predicted among non-blacks MDRD (S/P/Bld) [Vol rate/Area] 56 mL/min/{1.73_m2} Low >60 [facility] Comment on above: Order Comment: PLEAS E FAX LABS TO [phone] Result Comment: mL/m in/1.73m2 CKD-EPI Creatinine Equation (2020) Performed By: #### L 499.0042 #### [facility] [address] [place], [address] Globulin (S) [Mass/Vol] 3.5 g/dL Normal 2.2-4.2 [facility] Comment on above: Order Comment: PLEAS E FAX LABS TO [phone] Performed By: #### L 499.0042 #### [facility] [address] [place], [address] Glucose [Mass/Vol] 179 mg/dL High 70-99 [facility] Comment on above: Order Comment: PLEAS E FAX LABS TO [phone] Performed By: #### L 499.0042 #### [facility] [address] [place], [address] Potassium [Moles/Vol] 4.9 mmol/L Normal 3.3-5.1 [facility] Comment on above: Order Comment: PLEAS E FAX LABS TO [phone] Performed By: #### L 499.0042 #### [facility] [address] [place], [address] Sodium [Moles/Vol] 137 mmol/L Normal 133-145 [facility] Comment on above: Order Comment: PLEAS E FAX LABS TO [phone] Performed By: #### L 499.0042 #### [facility] [address] [place], [address] T PROT 7.5 g/dL Normal 5.9-8.4 [facility] Comment on above: Order Comment: PLEAS E FAX LABS TO [phone] Performed By: #### L 499.0042 #### [facility] [address] [place], [address] Urea nitrogen [Mass/Vol] 23 mg/dL High 08-30 [facility] Comment on above: Order Comment: PLEAS E FAX LABS TO [phone] Performed By: #### L 499.0042 #### [facility] [address] [place], [address] Free T3on 10-30-2024 Free T3 [Mass/Vol] 2.5 pg/mL Normal 2.18-3.98 [facility] Comment on above: Order Comment: PLEAS E FAX LABS TO [phone] Performed By: #### L 499.0042 #### [facility] [address] [facility] [place], [address] Free E5Iaftxfi By: Leora lutz on 10-30-2024 Free T3 [Mass/Vol] 2.5 pg/mL 2.18-3.98 [facility] Glomerular filtration rate ( GFR) estimation/1.73 sq m using serum, plasma, or whole bOrdered By: Leora Villa on 10-30-2024 GFR/1.73 sq M.predicted among non-blacks MDRD (S/P/Bld) [Vol rate/Area] 56 mL/min/{1.73_m2} Low >60 [facility] Comment on above: mL/min/1.73m2 CKD-EP I Creatinine Equation (2020) Hemoglobin A1con 10-30-2024 HbA1c (Bld) [Mass fraction] 8.3 % High <=5.6 [facility] Comment on above: Order Comment: PLEAS E FAX LABS TO [phone] Result Comment: Norm al < 5.7 % Prediabetic 5.7 - 6.4 % Diabetic >or= 6.5 % Please note range changes. Performed By: #### L 100.0100 #### [facility] [address] [place], [address] Hemoglobin A1c percentageOrd ered By: Leora Villa on 10-30-2024 HbA1c (Bld) [Mass fraction] 8.3 % High <5.7 [facility] Comment on above: Normal < 5.7 % Predi abetic 5.7 - 6.4 % Diabetic >or= 6.5 % Please note range changes. LDL calc ser/plasOrdered By: Leora Villa on 10-30-2024 Cholesterol in LDL [Mass/Vol] 43 mg/dL [facility] Comment on above: Aizyofcbet=840-839 m g/dL & Higher Bckt=631 mg/dL or greater Laboratory - Chemistry and C hemistry - challengeOrdered By: Leora Villa on 10-30-2024 AST [Catalytic activity/Vol] 59 U/L High <32 [facility] Lipid Profileon 10-30-2024 CHOL:HDL 3.60 Normal [facility] Comment on above: Order Comment: PLEAS E FAX LABS TO [phone] Performed By: #### L 499.0042 #### [facility] [address] [place], [place], [id number] Cholesterol [Mass/Vol] 126 mg/dL Normal <=200 [facility] Comment on above: Order Comment: PLEAS E FAX LABS TO [phone] Result Comment: Chol esterol level, Desirable <200 mg/dL Borderline high cholesterol 200-239 mg/dL High cholesterol >=240 mg/dL Recommendations of the NCEP Adult Treatment Panel for the following risk-cutoff thresholds for the [place] population. Performed By: #### L 499.0042 #### [facility] [address] [place], [place], [id number] Cholesterol in HDL [Mass/Vol] 35 mg/dL Low [facility] Comment on above: Order Comment: PLEAS E FAX LABS TO [phone] Result Comment: Cristy onal Cholesterol Education Program (NCEP) guidelines: <40 mg/dL: Low HDL-cholesterol (major risk factor for CHD) >= 60 mg/dL: High HDL-cholesterol (negative risk factor for CHD) HDL-cholesterol is affected by a number of factors, e.g. smoking, exercise, hormones, sex and age. Performed By: #### L 499.0042 #### [facility] [address] [place], [address] Cholesterol in LDL [Mass/Vol] 43 mg/dL Normal [facility] Comment on above: Order Comment: PLEAS E FAX LABS TO [phone] Result Comment: Bord tawsay=335-209 mg/dL Higher Qecu=307 mg/dL or greater Performed By: #### L 499.0042 #### [facility] [address] [place], [address] Cholesterol in VLDL [Mass/Vol] 48 mg/dL High 5-40 [facility] Comment on above: Order Comment: PLEAS E FAX LABS TO [phone] Performed By: #### L 499.0042 #### [facility] [address] [place], [address] Triglyceride [Mass/Vol] 241 mg/dL High [facility] Comment on above: Order Comment: PLEAS E FAX LABS TO [phone] Result Comment: The drugs N-Acetylcysteine and Metamizole may falsely depress this assay. Normal range: <150 mg/dL Borderline High: 150-199 mg/dL High: 200-499 mg/dL Very High: >500 mg/dL Performed By: #### L 499.0042 #### [facility] [address] [place], [address] Microalb:Creat Ratio,Random URon 10-30-2024 Creatinine [Mass/Vol] 126.00 mg/dL Normal 28.00- 217. 00 [facility] Comment on above: Order Comment: PLEAS E FAX LABS TO [phone] Performed By: #### L 499.0042 #### [facility] [address] [place], [address] MALB:CREAT 25.6 mg/g CRE Normal [facility] Comment on above: Order Comment: PLEAS E FAX LABS TO [phone] Performed By: #### L 499.0042 #### [facility] [address] [place], [address] MICROALBUMIN,UR 32.2 mg/L Normal NO RANGE EST. [facility] Comment on above: Order Comment: SINDY Cordova FAX LABS TO [phone] Performed By: #### L 499.0042 #### [facility] [address] [place], [place], [address] Potassium measurement (mass/ volume)Ordered By: Leora Villa on 10-30-2024 Potassium (Unsp spec) [Mass/Vol] 4.9 mmol/L 3.3-5.1 [facility] Random urine creatinine wale urement (mass/volume)Ordered By: Leora Villa on 10-30-2024 Creatinine Unsp time (U) [Mass/Vol] 126.00 mg/dL 28.00-217. 00 [facility] Screening total cholesterol/ high density lipoprotein (HDL) cholesterol ratioOrdered By: Leora Villa on 10-30-2024 Cholesterol.total/Cho lesterol in HDL [Mass ratio] 3.60 {ratio} [facility] Serum creatinine measurement (mass/volume)Ordered By: Leora Villa on 10-30-2024 Creatinine [Mass/Vol] 1.02 mg/dL 0.70-1.20 [facility] Serum globulin measurementOr dered By: Leora Villa on 10-30-2024 Globulin (S) [Mass/Vol] 3.5 g/dL 2.2-4.2 [facility] Serum glucose measurement (m ass/volume)Ordered By: Leora Villa on 10-30-2024 Glucose [Mass/Vol] 179 mg/dL High 70-99 [facility] Serum or plasma alanine gayle otransferase (ALT) measurementOrdered By: Leora Villa on 10-30-2024 ALT [Catalytic activity/Vol] 17 U/L <35 [facility] Serum or plasma albumin wale urement (mass/volume)Ordered By: Leora Villa on 10-30-2024 Albumin [Mass/Vol] 4.0 g/dL 3.4-4.8 [facility] Serum or plasma albumin/glob ulin mass ratioOrdered By: Leora Villa on 10-30-2024 Albumin/Globulin [Mass ratio] 1.2 {ratio} 0.9-2.4 [facility] Serum or plasma alkaline valentin sphatase measurementOrdered By: Leora Villa on 10-30-2024 ALP [Catalytic activity/Vol] 84 U/L 35-104 [facility] Serum or plasma calcium wale urement (mass/volume)Ordered By: Leora Villa on 10-30-2024 Calcium [Mass/Vol] 10.1 mg/dL 7.6-11.0 [facility] Serum or plasma cholesterol in HDL measurement (mass/volume)Ordered By: Leora Villa on 10-30-2024 Cholesterol in HDL [Mass/Vol] 35 mg/dL Low >40 [facility] Comment on above: National Cholesterol Education Program (NCEP) guidelines:<40 mg/dL: Low HDL-cholesterol (major risk factor for CHD)>= 60 mg/dL: High HDL-cholesterol (negative risk factor for CHD)HDL-cholesterol is affected by a number of factors, e.g. smoking, exercise, hormones, sex and age. Serum or plasma cholesterol measurement (mass/volume)Ordered By: Leora Villa on 10-30-2024 Cholesterol [Mass/Vol] 126 mg/dL <201 [facility] Comment on above: Cholesterol level, D esirable <200 mg/dLBorderline high cholesterol 200-239 mg/dLHigh cholesterol >=240 mg/dLRecommendations of the NCEP Adult Treatment Panel for the following risk-cutoff thresholds for the [place] population. Serum or plasma urea nitroge n measurement (mass/volume)Ordered By: Leora Villa on 10-30-2024 Urea nitrogen [Mass/Vol] 23 mg/dL High -19 [facility] Sodium levelOrdered By: Jose Villa on 10-30-2024 Sodium [Moles/Vol] 137 mmol/L 133-145 [facility] T4 Free Directon 10-30-2024 T4 FREE DIRECT 1.40 ng/dL Normal 0.76-1.46 [facility] Comment on above: Order Comment: PLEAS E FAX LABS TO [phone] Performed By: #### L 499.0042 #### [facility] [address] [place], [place], [address] T4 freeOrdered By: Leora lutz on 10-30-2024 Free T4 [Mass/Vol] 1.40 ng/dL 0.76-1.46 [facility] TSH DL <= 0.005 mIU/L QnOrde red By: Leora Villa on 10-30-2024 TSH Qn 2.140 uIU/mL 0.300-4.20 0 [facility] Thyroid Stim Hormone (TSH)on 10-30-2024 TSH 2.140 uIU/mL Normal 0.300-4.20 0 [facility] Comment on above: Order Comment: PLEAS E FAX LABS TO [phone] Performed By: #### L 499.0042 #### [facility] [address] [place], [place], [address] Total proteinOrdered By: Lester Villa on 10-30-2024 Protein [Mass/Vol] 7.5 g/dL 5.9-8.4 [facility] Triglycerides measurementOrd ered By: Leora Villa on 10-30-2024 Triglyceride [Mass/Vol] 241 mg/dL High <199 [facility] Comment on above: The drugs N-Acetylcy steine and Metamizole may falsely depress this assay. Normal range: <150 mg/dLBorderline High: 150-199 mg/dLHigh: 200-499 mg/dLVery High: >500 mg/dL Urine albumin measurement [facility] detection limit of 20 mg/L or less (mass/volume)Ordered By: Leora Villa on 10-30-2024 Albumin DL <= 20 mg/L (U) [Mass/Vol] 32.2 mg/L NO RANGE EST. [facility] Vitamin D,25 Hydroxyon 10-30 Vitamin D 25-OH 44.7 ng/mL Normal 30-100 [facility] Comment on above: Result Comment: Ann-Marie min D Status Deficiency: <20 ng/mL (50nmol/L) Insufficiency: 20-30 ng/mL (50-75 nmol/L) Sufficiency: 30-100 ng/mL (75-250 nmol/L) Toxicity: >100 ng/mL (>250 nmol/L) Performed By: #### L 506.1001 ####[facility] [address] [facility] [place], [address] Breast imaging reportOrdered By: Daron Russell on 10-07-2024 Study report [facility] Imaging Services [address] [place], [place] [address] SCREEN MAMM (CAD) W/JOVAN UNI L MR#: [id number] Acct: [id number] Name: SULEIMAN RAMSEY Rep #: [id number] : 1945 F 78 From: Carson Russell MD PCP: Dr. Benny Bosch MD Status: RE G CLI Study:SCREEN MAMM (CAD) W/JOVAN UNI L Date of Exam: 10/07/24 Exam# [id number] Ordering Dr: Marshal Park DO EXAM: SCREEN [...] be mailed to the patient. Reading Location: [facility]1 CC: Dr. Benny Bosch MD; Dr. Marshal Park DO ~ Professor/Nurse Anesthetist: Signed [facility] SCREEN MAMM (CAD) W/JOVAN UNI Nikita 10-07-2024 SCREEN MAMM (CAD) W/JOVAN UNI L [facility] Imaging Services [address] [place] [address] SCREEN MAMM (CAD) W/JOVAN UNI L MR#: [id number] Acct: [id number] Name: SULEIMAN RAMSEY Rep #: [id number] : 1945 F 78 From: Daron weaver MD PCP: Dr. Benny Bosch MD Status: REG CL Study: SCREEN MAMM (CAD) W/JOVAN UNI L Date of Exam: 0 10/07/24 Exam# [id number] Ordering Dr: Marshal Park DO EXAM: SCREEN [...] be mailed to the patient. Reading Location: [facility]-1 CC: Dr. Benny Bosch MD; Dr. Marshal Park DO Professor/Nurse Anesthetist: Signed Normal [facility] Shoulder min 2 Viewson 09-02 Shoulder min 2 Views [facility] Imaging Services [address] [place] [address] Shoulder min 2 Views MR#: [id number] Acct: [id number] Name: SULEIMAN RAMSEY Rep #: [id number] : 1945 F 78 From: Emperatriz Langston PCP: Dr. Benny Bosch MD Status: REG CLI Study: Shoulder min 2 Views Date of Exam: 09/02/24 Exam# [id number] Ordering Dr: Benny Bosch MD PROCEDURE: SHOULDER [...] Views IMPRESSION: Unremarkable right shoulder. Reading Location: [facility] CC: Dr. Benny Bosch MD Professor/Nurse Anesthetist: Signed Normal [facility] Basic metabolic 2000 panelon 08-18-2024 Anion gap [Moles/Vol] 8 mmol/L Normal 8-15 [facility] Comment on above: Order Comment: Speci men Type: BLOOD SPECIMENOrdering Facility: [facility] Address: [address] [place] [address] Performed By: #### 2 4321-2 ####[facility] [id number] [place] [address] [place] Calcium [Mass/Vol] 10.2 mg/dL Normal 8.5-10.2 [facility] Comment on above: Order Comment: Speci men Type: BLOOD SPECIMENOrdering Facility: [facility] Address: [address] [place] [address] Performed By: #### 2 4321-2 ####[facility] MILLWNCLIA [id number] [place] [address] [place] Chloride [Moles/Vol] 102 mmol/L Normal 98-107 [facility] Comment on above: Order Comment: Speci men Type: BLOOD SPECIMENOrdering Facility: [facility] Address: [address] [place] [address] Performed By: #### 2 4321-2 ####[facility]ENTERWNCLIA [id number] [place] [address] [place] CO2 [Moles/Vol] 25 mmol/L Normal 22-30 [facility] Comment on above: Order Comment: Speci men Type: BLOOD SPECIMENOrdering Facility: [facility] Address: [address] [place] [address] Performed By: #### 2 4321-2 ####[facility] [id number] [place] [address] [place] Creatinine [Mass/Vol] 0.82 mg/dL Normal 0.58-0.96 [facility] Comment on above: Order Comment: Speci men Type: BLOOD SPECIMENOrdering Facility: [facility] Address: [address] [place] [address] Performed By: #### 2 4321-2 ####[facility] [id number] [address] Creatinine and Glomerular filtration rate.predicted panel (S/P/Bld) 73 mL/min/1.73m??? Normal >=60 [facility] Comment on above: Order Comment: Speci men Type: BLOOD SPECIMENOrdering Facility: [facility] Address: [address] [place] [address] Result Comment: Payal mated Glomerular Filtration Rate [...] actual GFR. Performed By: #### 2 4321-2 ####[facility] MILLTOWNCLIA [id number] [place] [address] [place] Glucose [Mass/Vol] 250 mg/dL High 74-99 [facility] Comment on above: Order Comment: Sebastián men Type: BLOOD SPECIMENOrdering Facility: [facility] Address: [address] [place], [place] [address] Result Comment: The [place] Diabetes Association (ADA) provides guidance for cutoff [...] Standards of Medical Care in Diabetes 2016, [place] [employer] Association. Diabetes Care. 2016.39(Suppl 1). Performed By: #### 2 4321-2 ####[facility] MILLTOWNCLIA [id number] [place] [address] [place] Potassium [Moles/Vol] 4.1 mmol/L Normal 3.7-5.1 [facility] Comment on above: Order Comment: Sebastián men Type: BLOOD SPECIMENOrdering Facility: [facility] Address: [address] [place] [address] Performed By: #### 2 4321-2 ####[facility]ITALTOWNCLIA [id number] [place] [address] [place] Sodium [Moles/Vol] 135 mmol/L Low 136-144 [facility] Comment on above: Order Comment: Sebastián esqueda Type: BLOOD SPECIMENOrdering Facility: [facility] Address: [address] [place] [address] Performed By: #### 2 4321-2 ####[facility] MARQUIS MEJIANCMARCUS [id number] [address] Urea nitrogen [Mass/Vol] 20 mg/dL Normal 7-21 [facility] Comment on above: Order Comment: Sebastián esqueda Type: BLOOD SPECIMENOrdering Facility: [facility] Address: [address] [place], [place] [address] Performed By: #### 2 4321-2 ####[facility] JACKIENCLIA [id number] [address] OF [facility] CNOVSPon 08-18-2024 CNOVSP Visit (SP) Office (H EMAWS) RAMSEYSULEIMAN MALONE ([id number]) 1945 F Date Time Provider Department 08/18/24 10:00 AM DANAY GRIFFIN During your visit today, we recorded the following information about you: Temperature Pulse Blood pressure Weight 97.4 degrees 74/minute 186/110 79.8 kg Danay Griffin 08/18/2024 2:34 PM Signed Suleiman Drew Fly 1945 08/18/2024 HPI: Suleiman Ramsey is a 78 year old female who presents here today for follow up breast cancer. Per Dr. Chowdhury's previous note: H/o hypertension, left bundle branch block, hypercholesterolemia, hypothyroidism, diabetes, atrophic vaginitis and rosacea. Patient noted a mass in her right breast approximately 6 months prior to presentation. She was seen by her superintendent division to confirm the presence of a mass. She underwent a bilateral diagnostic mammogram with a right-sided ultrasound at [facility] 11/10/2022. The ultrasound demonstrated that the [...] 2/3. ER (clone 6F11) >95% , strong NE (clone 16/1E2) 80%, weak to moderate Her-2Neu (clone CB11) 1 - 2+ (equivocal) Patient had a CT of the chest, abdomen pelvis on 11/29/2022 at [facility]. There was a group of nodular [...] had a bone scan on 12/04/2022 at [facility]. That study demonstrated increased uptake in [...] 2 O (more content not included)... Normal [facility] Free T3on 07-25-2024 Free T3 [Mass/Vol] 2.1 pg/mL Low 2.18-3.98 [facility] Comment on above: Performed By: #### L 499.0042 #### [facility] [address] [place], [address] Free A1Vmkmhcz By: Leora lutz on 07-25-2024 Free T3 [Mass/Vol] 2.1 pg/mL Low 2.18-3.98 [facility] Free Triiodothyronine (T3) pg/dL 2.1 pg/mL Low 2.18-3.98 [facility] T4 Free Directon 07-25-2024 T4 FREE DIRECT 1.10 ng/dL Normal 0.76-1.46 [facility] Comment on above: Performed By: #### L 499.0042 #### [facility] [address] [place], [address] T4 freeOrdered By: Leora lutz on 07-25-2024 Free T4 [Mass/Vol] 1.10 ng/dL 0.76-1.46 [facility] TSH DL <= 0.005 mIU/L QnOrde red By: Leora Villa on 07-25-2024 Thyroid Stimulating Hormone (TSH) 10.300 uIU/mL High 0.300-4.20 0 [facility] TSH Qn 10.300 uIU/mL High 0.300-4.20 0 [facility] Thyroid Stim Hormone (TSH)on 07-25-2024 TSH 10.300 uIU/mL High 0.300-4.20 0 [facility] Comment on above: Performed By: #### L 499.0042 #### [facility] [address] [place], [address] Gastroenterology Visit Repor ton 06-17-2024 Gastroenterology Visit Report [facility] Gastroenterology [address] [place] [address] OFFICE VISIT Date of Service: 06/17/24 MR#: [id number] Acct: [id number] Name: SULEIMAN RAMSEY Rep #: [id number] : 1945 Provider: NOVA Ruiz Age/Sex: 78/F [place] [facility] Status: Signed Intake Vital Signs 04/24/24 10:29 [...] her omeprazole but had no further concerns. [facility] Medical History (Updated 06/17/24 @ 08:47 by [...] the office today for f/u. [facility]GI established .09.01 EGD 01.12.22; - LA Grade A reflux esophagitis. Biopsied. - Non-obstructing Schatzki ring. - Non-obstructing non-bleeding gastric ulcer with no stigmata of bleeding. Biopsied. OV 04.02.24 w/ epigastric pain, nausea and 5lbs weight loss for one week. Hx of H. pylori infection. Started ozempic prior to symptom start. Increased omeprazole to 40 mg BID. EGD scheduled [facility] ED 04.24.24 visit after presenting to [...] GES 1.9.25; prolonged at 68 minutes Colonoscopy 1..25; - Diverticulosis in the recto-sigmoid colon, in the sigmoid colon and in the descending colon. - Congested mucosa in the rectum, in the recto-sigmoid colon, in the sigmoid colon, in the descending colon, at the splenic flexure and in the ascending colon. Biopsied. - The examined portion of the ileum was normal. Biopsied. non-specific inflammation OV 2 Pt has been doing well. She is [...] easy blee (more content not included)... Normal [facility] Colonoscopy Reporton 025 Colonoscopy Report [facility] Medical Records Department [address] [place] [address] Colonoscopy Report MR#: [id number] Acct: [id number] Name: SULEIMAN RAMSEY Rep #: [id number] : 1945 78 From: Prem Sanchez DO PCP: Dr. Benny Bosch MD Status:REG [facility] Patient Name: Suleiman Ramsey Procedure Date: 06/03/2024 [...] for review. Procedure Code(s): --- Professional --- 36069, Colonoscopy, flexible; with biopsy, single or multiple CPT copyright 2021 [place] [employer]. All rights reserved. The codes documented in this report are preliminary and upon physician coder review may be revised to meet current compliance requirements. Prem Sanchez DO 06/03/2024 1:36:18 PM This report has been signed electronically. Number of Addenda: 0 Note Initiat (more content not included)... Normal [facility] MR/POSTOP.Elidia 06-03-2024 MR/POSTOP.[facility] Medical Records Department [address] [place] [address] Anesthesia Postop Eval I 06/03/24 1337 MR#: [id number] Acct: [id number] Name: SULEIMAN RAMSEY Rep #: [id number] : 1945 78 From: Elton Pardo PCP: Dr. Benny Bosch MD Status:[facility] Y Race: C Location: [place] [address] Anesthesia: Postop Eval I Current Vital Signs [...] Anesthesia document: Postop Eval 1 completed: Yes 06/03/241337 Date Elton Paz Signature: Date CC: Signed Normal [facility] MR/UEDASJYP7ri 06-03-2024 [facility] Medical Records Department [address] [place] [address] Anesthesia Postop Eval II 06/03/241940 MR#: [id number] Acct: [id number] Name: SULEIMAN RAMSEY Rep #: [id number] : 1945 78 From: Yonathan Carr MD PCP: Dr. Benny Bosch MD Status:[facility] Y Race: C Location: EN Anesthesia Postop [...] Yonathan Paz Signature: Date CC: Signed Normal [facility] Surgery Specimen Level Gabriela 06-03-2024 Surgery Specimen Level IV -------- Patient Age/Sex Location Account Attending Physician -------- SULEIMAN RAMSEY 78/F EN [id number] Prem Sanchez DO -------- Specimen: [id number] Received: 06/03/24 Status: MAYELIN Nobles Num: [id number] Spec Type: COLON BX Subm Dr: Prem Sanchez DO HEADER OPERATION: Colonoscopy with biopsy PRE-OP DIAGNOSIS: Diarrhea TISSUE SUBMITTED: A- Terminal ileum biopsy, B- Random colon biopsy -------- MICROSCOPIC DIAGNOSIS A. Terminal ileum, biopsy: Fragments of small intestinal mucosa, no pathologic diagnosis. B. Colon, random biopsy: Fragments of colonic mucosa, no pathologic diagnosis. 06/05/2024 MICROSCOPIC DESCRIPTION Slides are reviewed. GROSS [...] totally submitted in one cassette. 06/04/2024 TC:4 CPT:05531m3 -------- Patient Age/Sex Location Account Attending Physician -------- SULEIMAN RAMSEY 78/F EN [id number] Prem Sanchez DO -------- Signed (signature on file) Dr. Hernan Horvath MD 06/05/24 1154 -------- Normal [facility] Comment on above: Performed By: #### L 100.0100 #### [facility] [address] [place], [address] MR/PAT.ANEon 05-30-2024 MR/PAT.ASTRID [facility] Medical Records Department [address] [place] [address] PAT - Anesthesia 05/30/24 1604 MR#: [id number] Acct: [id number] Name: SULEIMAN RAMSEY Rep #: [id number] : 1945 78 From: Yonathan Carr MD PCP: Dr. Bee Roldan MD Status:PRE SDC Y Race: C Location: EN Pre-Assessment Diagnosis/Proposed Procedure Planned Operative Procedure(s): COLONOSCOPY Anesthesia History Anesthesia History - brim blocker: Anesthesia History - brim blocker Hx Hospitalization No 05/30/24 10:44 Any Problems [...] take am of surgery PONV PONV - brim blocker: PONV - brim blocker Female Yes 05/30/24 10:44 HX of Motion [...] 03/30/24 13:34 Respiratory Assessment Respiratory Assessment - brim blocker: Respiratory Tract Infection Hx - brim blocker Hx Respiratory Tract Infection No 05/30/24 10:44 STOP Sleep Apnea STOP Sleep Apnea - brim blocker: STOP Sleep Apnea - brim blocker Hx Hypertension Yes: CONTROLLED ON MED 05/30/24 [...] Tobacco Use History Tobacco Use History - brim blocker: Tobacco Use History - brim blocker Tobacco Use Smoking Status Former smoker 05/30/24 10:44 Hx Tobacco Use No 05/30/24 10:44 Years Smoking Packs Smoked per Day Smoking Cessation Date was No - quit smoking greater 05/30/24 10:44 within the last 15 years than 15 years ago Hx Smoking Cessation Date 10/13/79 05/30/24 10:44 Hx Smoking Cessation Counseling Hematologic Medial History Hematologic Hx - brim blocker: Hematologic Medical Hx - frame aligner Hx of Blood Transfusion No 05/30/24 10:44 Hx of Transfusion in last 3 No 05/30/24 10:44 Months Date of Last Transfusion (if within last 3 months) Ever experience any problems No 05/30/24 10:44 with transfusion(s)? Specify any problems Hx of Preganancy in last 3 No 05/30/24 10:44 Months Nurse Filling Out Transfusion MGTEX 05/30/24 10:44 Questions: Date: 05/30/24 05/30/24 10:44 Time: 10:45 05/30/24 10:44 Patient unable to answer at this time (ie. confused, unrespo /Reproduction History /Reproductive History - brim blocker: /Reproductive Hx- brim blocker Hx Now Gestational Age (in weeks): EDC: [...] tablet 150 (more content not included)... Normal [facility] Urine Cultureon 05-28-2024 URC Presumptive E. coli [place] Count >100,000 Presumptive E. coli: REACTION Ampicillin [...] TMP SMX Islt SIMIN <=20 S Normal [facility] Comment on above: Performed By: #### L 501.4021, L501.9520 #### [facility] [address] [place], [place], [address] Bilirubin Test strip Ql (U)O rdered By: Bee Roldan on 05-26-2024 Bilirubin Ql (U) Negative Negative [facility] Glucose Ql (U)Ordered By: Karan Roldan on 05-26-2024 Urine Glucose (UA) Normal mg/dl Normal [facility] Ketones Test strip Ql (U)Ord ered By: Bee Roldan on 05-26-2024 Ketones Ql (U) Negative Negative [facility] Nitrite Test strip Ql (U)Ord ered By: Bee Roldan on 05-26-2024 Nitrite Ql (U) Negative Negative [facility] Protein Test strip Ql (U)Ord ered By: Bee Roldan on 05-26-2024 Protein Ql (U) 30 mg/dl High Negative [facility] Urinalysis, Routine (Dipstic k)on 05-26-2024 BILIRUBIN URINE Negative Normal Negative [facility] Comment on above: Order Comment: CLEAN CATCH Performed By: #### L 501.4021, L501.9520 #### [facility] [address] [place], [address] Clarity (U) Cloudy Normal Clear [facility] Comment on above: Order Comment: CLEAN CATCH Performed By: #### L 501.4021, L501.9520 #### [facility] [address] [place], [address] Color (U) Yellow Normal Yellow [facility] Comment on above: Order Comment: CLEAN CATCH Performed By: #### L 501.4021, L501.9520 #### [facility] [address] [place], [address] GLUCOSE, UR Normal Normal Normal [facility] Comment on above: Order Comment: CLEAN CATCH Performed By: #### L 501.4021, L501.20 #### [facility] [address] [place], [address] KETONE UR Negative Normal Negative [facility] Comment on above: Order Comment: CLEAN CATCH Performed By: #### L 501.4021, L501.20 #### [facility] [address] [place], [address] LEUK ESTERASE 500 /ul Abnormal Negative [facility] Comment on above: Order Comment: CLEAN CATCH Performed By: #### L 501.4021, L501.20 #### [facility] [address] [place], [address] Nitrite Ql (U) Negative Normal Negative [facility] Comment on above: Order Comment: CLEAN CATCH Performed By: #### L 501.4021, L501.9520 #### [facility] [address] [place], [address] OCCULT BLOOD-UR 25 /ul Abnormal Negative [facility] Comment on above: Order Comment: CLEAN CATCH Performed By: #### L 501.4021, L501.9520 #### [facility] [address] [place], [address] pH UR 6.0 Normal 5.0 - 8.0 [facility] Comment on above: Order Comment: CLEAN CATCH Performed By: #### L 501.4021, L501.9520 #### [facility] [address] [place], [address] PROT DIPSTX 30 mg/dl Abnormal Negative [facility] Comment on above: Order Comment: CLEAN CATCH Performed By: #### L 501.4021, L501.9520 #### [facility] [address] [place], [address] SP.GR. DIPSTX 1.015 Normal 1.002-1.03 0 [facility] Comment on above: Order Comment: CLEAN CATCH Performed By: #### L 501.4021, L501.9520 #### [facility] [address] [place], [address] UROBILI Normal Normal Normal [facility] Comment on above: Order Comment: CLEAN CATCH Performed By: #### L 501.4021, L501.9520 #### [facility] [address] [place], [address] Urine blood detectionOrdered By: Bee Roldan on 05-26-2024 Urine Occult Blood 25 /ul High Negative [facility] Urine clarityOrdered By: Arlene Roldan on 05-26-2024 Clarity (U) Cloudy Clear [facility] Urine color determinationOrd ered By: Bee Roldan on 05-26-2024 Color (U) Yellow Yellow [facility] Urine cultureOrdered By: Arlene Roldan on 05-26-2024 Bacteria identified Cx Nom (U) Presumptive E. coli Abnormal [facility] Urine leukocyte esterase det ection by dipstickOrdered By: Bee Roldan on 05-26-2024 Leukocyte esterase Test strip Ql (U) 500 /ul High Negative [facility] Urine pHOrdered By: Bee zhu on 05-26-2024 pH (U) 6.0 [pH] 5.0 - 8.0 [facility] Urine specific gravity measu rementOrdered By: Bee Roldan on 05-26-2024 Specific gravity (U) [Rel density] 1.015 1.002-1.03 0 [facility] Urobilinogen Ql (U)Ordered B y: Bee Roldan on 05-26-2024 Urine Urobilinogen Normal mg/dl Normal [facility] Bedside Glucoseon 05-23-2024 FINGERSTICK GLU 217 mg/dL High 74-106 [facility] Comment on above: Result Comment: TANK GEMENT OF PATIENT CARE PER NURSING PROTOCOL Performed By: #### L 499.0042 #### [facility] [address] [facility] [facility] [address] FINGERSTICK GLU 176 mg/dL High 74-106 [facility] Comment on above: Result Comment: TANK GEMENT OF PATIENT CARE PER NURSING PROTOCOL Performed By: #### L 501.4021, L501.9520 #### [facility] [address] [facility] [address] EGD Reporton 05-23-2024 EGD Report [facility] Medical Records Department [address] [place] [address] EGD Report MR#: [id number] Acct: [id number] Name: SULEIMAN RAMSEY Rep #: [id number] : 1945 78 From: Prem Sanchez DO PCP: Dr. Benny Bosch MD Status:[facility] Patient Name: Suleiman Ramsey Procedure Date: [...] emptying study Procedure Code(s): --- Professional --- 75024, Esophagogastroduodenoscopy, flexible, transoral; with biopsy, single or multiple CPT copyright 2021 [place] [employer]. All rights reserved. The codes documented in this report are preliminary and upon physician coder review may be revised to meet current compliance requirements. Prem Sanchez DO 05/23/2024 7:36:11 AM This report has been signed electronically. Number of Addenda: 0 Note Initiated On: 05/23/2024 7:15 AM 05/23/24735 Date Prem Sanchez DO Cosigner Signature: Date (if indicated) CC: Dr. Benny Bosch MD; Prem Sanchez DO Date Dictated: 05/23/24714 Date Transcribed: Professor/Nurse Anesthetist: JUSTINA Signed Normal [facility] Gl[facility] at [facility] deOrdered By: Prem Sanchez on 05-23-2024 Bedside Glucose (Misc Panel) 217 mg/dL High 74-106 [facility] Comment on above: MANAGEMENT OF PATIEN T CARE PER NURSING PROTOCOL MR/POSTOP.ANEon 05-23-2024 MR/POSTOP.ANE [facility] Medical Records Department [address] [place] [address] Anesthesia Postop Eval I 05/23/24740 MR#: [id number] Acct: [id number] Name: SULEIMAN RAMSEY Rep #: [id number] : 1945 78 From: Elton Pardo PCP: Dr. Benny Bosch MD Status:REG SDC Y Race: C Location: [place] [address] Anesthesia: Postop Eval I Current Vital Signs [...] Eval 1 completed: Yes 05/23/24741 Date Elton Valienteer Jackson Signature: Date CC: Signed Normal [facility] MR/[id number] 05-23-2024 [facility] Medical Records Department [address] [place] [address] Anesthesia Postop Eval II 05/23/24724 MR#: [id number] Acct: [id number] Name: SULEIMAN RAMSEY Rep #: [id number] : 1945 78 From: Ryann Mcdonough PCP: Dr. Benny Bosch MD Status:[facility] Y Race: C Location: EN Anesthesia Postop [...] Pain Level: 0 nausea: No Vomiting: No 05/23/24 0931 Date Ryann giuliana Paz Signature: Date CC: Signed Normal [facility] Special Stain Group Ion - Special Stain Group I -------- Patient Age/Sex Location Account Attending Physician -------- SULEIMAN RAMSEY 78/F EN [id number] Prem Sanchez DO -------- Specimen: [id number] Received: 05/23/24 Status: MAYELIN Nobles Num: [id number] Spec Type: EGD BIOPSY Subm Dr: Prem Sanchez DO HEADER OPERATION: EGD and biopsy PRE-OP DIAGNOSIS: Gastric [...] submitted in one cassette. . 05/23/2024 TC:3 CPT:38668k0,89165 -------- Patient Age/Sex Location Account Attending Physician -------- SULEIMAN RAMSEY 78/F EN [id number] Prem Sanchez DO -------- Signed (signature on file) Dr. Hernan Horvath MD 05/26/24 1114 -------- Normal [facility] Comment on above: Performed By: #### P SSI ####[facility] [address]64 [facility] [place], [address] Gastric Emptying Studyon Gastric Emptying Study [facility] Imaging Services [address] [place], [place] [id number] Gastric Emptying Study MR#: [id number] Acct: [id number] Name: SULEIMAN RAMSEY Rep #: [id number] : 1945 78 From: Teja Langston PCP: Dr. Benny Bosch MD Status: REG CLI Study: Gastric Emptying Study Date of Exam: 05/22/24 Exam# [id number] Ordering Dr: Benny Bosch MD :[id number] CLINICAL: 78-year-old diabetic female with history of [...] Signed: Teja Zhu DO at 9:15 EST Reading Location ID and State: [facility] / [place] Tel , Service support , CC: Dr. Benny Bosch MD Professor/Nurse Anesthetist: Signed [facility] MR/PAT.ANEon 05-21-2024 MR/PAT.ANE [facility] Medical Records Department [address] [place] [address] PAT - Anesthesia 05/21/24 1357 MR#: [id number] Acct: [id number] Name: SULEIMAN RAMSEY Rep #: [id number] : 1945 78 From: Mateusz Bradley MD PCP: Dr. Benny Bosch MD Status:PRE [facility] Y Race: C Location: EN Pre-Assessment Diagnosis/Proposed Procedure Planned Operative Procedure(s): EGD Anesthesia History Anesthesia History - brim blocker: Anesthesia History - brim blocker Hx Hospitalization No 05/21/24 12:26 Any Problems [...] take am of surgery PONV PONV - brim blocker: PONV - brim blocker Female Yes 05/21/24 12:26 HX of Motion [...] 05/21/24 12:26 Respiratory Assessment Respiratory Assessment - brim blocker: Respiratory Tract Infection Hx - brim blocker Hx Respiratory Tract Infection No 05/21/24 12:26 STOP Sleep Apnea STOP Sleep Apnea - brim blocker: STOP Sleep Apnea - brim blocker Hx Hypertension Yes: CONTROLLED ON MED 05/21/24 [...] Tobacco Use History Tobacco Use History - brim blocker: Tobacco Use History - brim blocker Tobacco Use Smoking Status Former smoker 05/21/24 12:26 Hx Tobacco Use No 05/21/24 12:26 Years Smoking Packs Smoked per Day Smoking Cessation Date was No - quit smoking greater 05/21/24 12:26 within the last 15 years than 15 years ago Hx Smoking Cessation Date 10/13/79 05/21/24 12:26 Hx Smoking Cessation Counseling Hematologic Medial History Hematologic Hx - brim blocker: Hematologic Medical Hx - frame aligner Hx of Blood Transfusion No 05/21/24 12:26 [...] confused, unrespo /Reproduction History /Reproductive History - brim blocker: /Reproductive Hx- brim blocker Hx Now No 05/21/24 12:26 Gestational Age (in weeks): EDC: Hx Hx Para Hx Section SAB No 05/21/24 12:26 [facility] Medical History (Updated 05/21/24 @ 12:26 by [...] ???Medication ??? (more content not included)... Normal [facility] Neurology Visit Reporton Neurology Visit Report [facility] [address] [place] [address], [address] [place] [address] OFFICE VISIT Date of Service: 05/13/24 MR#: [id number] Acct: [id number] Name: SULEIMAN RAMSEY Rep #: [id number] : 1945 Provider: Dr. Cong wilson MD Age/Sex: 78/F [place] [facility] [place]: Signed HPI HPI Chief Complaint: Details: [...] roots. Thi (more content not included)... Normal [facility] Gastroenterology Visit Repor ton 12-20-2024 Gastroenterology Visit Report [facility] Gastroenterology [address] [place] [address] OFFICE VISIT Date of Service: 05/02/24 MR#: [id number] Acct: [id number] Name: SULEIMAN RAMSEY Rep #: [id number] : 1945 Provider: NOVA Ruiz Age/Sex: 78/F [place] [facility] [place] Status: Signed Intake Vital Signs 04/24/24 10:29 [...] omeprazole daily and finds it is helping. PFSH Medical History History of recent fall [...] omeprazole to 40 mg BID. EGD scheduled [facility] ED 04.24.24 visit after presenting to [...] Constitutional: Positiv (more content not included)... Normal [facility] 12 Lead EKGon 04-24-2024 12 Lead EKG [facility] Cardiovascular Services [address] [place] [address] 12 Lead EKG 04/24/24 1027 MR#: [id number] Acct: [id number] Name: SULEIMAN RAMSEY Rep #: [id number] : 1945 78 From: Gold Farmer MD [...] Abnormal ECG Confirmed by JONEL ULRICH, GOLD ([id number]), non linear editor BRITTANY RENAE ([id number]) on 04/30/2024 1:19:28 PM Referred By: MASOUD/TA Confirmed By: GOLD FARMER MD 04/30/24 1319 Date Gold Farmer MD CC: Dr. Hector Manzano DO; Dr. Benny Bosch MD; NOVA Max Signed Normal [facility] Absolute neutrophil countOrd ered By: Stacey Ward on 04-24-2024 Neutrophils (Bld) [#/Vol] 8.6 10*3/uL High 2.0-7.7 [facility] Albumin to globulin ratioOrd ered By: Stacey Ward on 04-24-2024 Albumin/Globulin [Mass ratio] 0.7 {ratio} Low 0.9-2.4 [facility] Basophil percentageOrdered B y: Stacey Ward on 04-24-2024 Basophils/100 WBC (Bld) 1.1 % High 0-1 [facility] Bilirubin, totalOrdered By: Stacey Ward on 04-24-2024 Bilirubin [Mass/Vol] 0.70 mg/dL 0.20-1.00 [facility] Comment on above: For patients on eltr ombopag therapy, use of Dimension Barton TBIL is not recommended. Blood urea nitrogen (BUN)/cr eatinine ratioOrdered By: Stacey Ward on 04-24-2024 Urea nitrogen/Creatinine [Mass ratio] 15.3 mg/mg 10-20 [facility] CBC W/Diff, Automatedon 04-13 Absolute Lymph 2.41 X10 3/uL Normal 0.83-4.51 [facility] Comment on above: Performed By: #### L 501.4021, L501.9520 #### [facility] [address] [place], [place], [address] Absolute Neut 8.6 X10 3/uL High 2.0-7.7 [facility] Comment on above: Performed By: #### L 501.4021, L5.9520 #### [facility] [address] [place], [address] Basophils/100 WBC (Bld) 1.1 % High 0-1 [facility] Comment on above: Performed By: #### L 501.4021, L501.9520 #### [facility] [address] [place], [address] Eosinophils/100 WBC (Bld) 8.5 % High 0-5 [facility] Comment on above: Performed By: #### L 501.4021, L5.20 #### [facility] [address] [place], [address] Erythrocyte distribution width (RBC) [Ratio] 13.6 % Normal 11.6-14.6 [facility] Comment on above: Performed By: #### L 501.4021, L5.20 #### [facility] [address] [place], [address] Hematocrit (Bld) [Volume fraction] 40.8 % Normal 37-47 [facility] Comment on above: Performed By: #### L 501.4021, L5.20 #### [facility] [address] [place], [address] Hemoglobin (Bld) [Mass/Vol] 13.5 g/dL Normal 12.0-15.0 [facility] Comment on above: Performed By: #### L 501.4021, L5.9520 #### [facility] [address] [place], [address] IG% 0.500 Normal 0.0-0.9 [facility] Comment on above: Result Comment: IG% - Immature Granulocytes (promyelocytes, myelocytes and metamyelocytes) > 1% indicates that a LEFT SHIFT is Present. Performed By: #### L 501.4021, L5.9520 #### [facility] [address] [place], [address] Lymphocytes/100 WBC (Bld) 18.4 % Low 19-41 [facility] Comment on above: Performed By: #### L 501.4021, L501.9520 #### [facility] [address] [place], [address] MCH (RBC) [Entitic mass] 29.5 pg Normal 27.0-32.0 [facility] Comment on above: Performed By: #### L 501.4021, L501.9520 #### [facility] [address] [place], [address] MCHC (RBC) [Mass/Vol] 33.1 g/dL Normal 32-36 [facility] Comment on above: Performed By: #### L 501.4021, L501.9520 #### [facility] [address] [place], [address] MCV (RBC) [Entitic vol] 89.3 fL Normal 81-99 [facility] Comment on above: Performed By: #### L 501.4021, L501.9520 #### [facility] [address] [place], [address] Monocytes/100 WBC (Bld) 6.5 % Normal 0-10 [facility] Comment on above: Performed By: #### L 501.4021, L501.9520 #### [facility] [address] [place], [address] Neutrophils/100 WBC (Bld) 65.0 % Normal 47-70 [facility] Comment on above: Performed By: #### L 501.4021, L501.9520 #### [facility] [address] [place], [address] Nucleated RBC (Bld) [#/Vol] 0 10*3/uL Normal 0-5 [facility] Comment on above: Performed By: #### L 501.4021, L501.9520 #### [facility] [address] [place], [address] Platelet mean volume (Bld) [Entitic vol] 10.3 fL Normal 6.2-12.0 [facility] Comment on above: Performed By: #### L 501.4021, L501.9520 #### [facility] [address] [place], [address] Platelets (Bld) [#/Vol] 364 10*3/uL Normal 150-450 [facility] Comment on above: Performed By: #### L 501.4021, L501.9520 #### [facility] [address] [place], [address] RBC (Bld) [#/Vol] 4.57 10*6/uL Normal 4.2-5.4 [facility] Comment on above: Performed By: #### L 501.4021, L501.9520 #### [facility] [address] [place], [address] RDW SD 44.3 fl High 35.1-43.9 [facility] Comment on above: Performed By: #### L 501.4021, L501.9520 #### [facility] [address] [place], [address] WBC (Bld) [#/Vol] 13.1 10*3/uL High 4.4-11.0 [facility] Comment on above: Performed By: #### L 501.4021, L501.9520 #### [facility] [address] [place], [address] Carbon dioxide measurementOr dered By: Stacey Ward on 04-24-2024 CO2 [Moles/Vol] 27.0 mmol/L 21.0-32.0 [facility] Chest PA and Lateralon 04-24 Chest PA and Lateral [facility] Imaging Services [address] [place], [place] [address] Chest PA and Lateral MR#: [id number] Acct: [id number] Name: SULEIMAN RAMSEY Rep #: [id number] : 1945 F 78 From: Tabatha kendall MD PCP: Dr. Benny Bosch MD Status: REG ER Study: Chest PA and Lateral Date of Exam: 04/24/24 Exam# [id number] Ordering Dr: Stacey Ward :[id number] HISTORY: chest pain. TECHNIQUE: XR Chest 2 [...] CC: Dr. Benny Bosch MD; NOVA Max Professor/Nurse Anesthetist: Signed Normal [facility] Chloride measurementOrdered By: Stacey Ward on 04-24-2024 Chloride [Moles/Vol] 95 mmol/L Low 98-107 [facility] Comprehensive Metabolic Prof ilon 04-24-2024 Albumin [Mass/Vol] 3.6 g/dL Normal 3.2-5.0 [facility] Comment on above: Order Comment: 1Y Performed By: #### L 501.4021, L501.9520 #### [facility] [address] [place], [place], [address] Albumin/Globulin [Mass ratio] 0.7 {ratio} Low 0.9-2.4 [facility] Comment on above: Order Comment: 1Y Performed By: #### L 501.4021, L501.9520 #### [facility] [address] [place], [address] ALK P 97 U/L Normal 45-117 [facility] Comment on above: Order Comment: 1Y Performed By: #### L 501.4021, L501.9520 #### [facility] [address] [place], [address] ALT [Catalytic activity/Vol] 17 U/L Normal 13-56 [facility] Comment on above: Order Comment: 1Y Performed By: #### L 501.4021, L501.9520 #### [facility] [address] [place], [address] AST [Catalytic activity/Vol] 31 U/L Normal 15-37 [facility] Comment on above: Order Comment: 1Y Performed By: #### L 501.4021, L501.9520 #### [facility] [address] [place], [address] Bilirubin [Mass/Vol] 0.70 mg/dL Normal 0.20-1.00 [facility] Comment on above: Order Comment: 1Y Result Comment: For patients on eltrombopag therapy, use of Dimension Barton TBIL is not recommended. Performed By: #### L 501.4021, L501.9520 #### [facility] [address] [place], [address] BUN/CRE 15.3 RATIO Normal 10-20 [facility] Comment on above: Order Comment: 1Y Performed By: #### L 501.4021, L501.9520 #### [facility] [address] [place], [address] CA,Total 11.8 mg/dL High 8.5-10.1 [facility] Comment on above: Order Comment: 1Y Performed By: #### L 501.4021, L501.9520 #### [facility] [address] [place], [address] Chloride [Moles/Vol] 95 mmol/L Low 98-107 [facility] Comment on above: Order Comment: 1Y Performed By: #### L 501.4021, L501.9520 #### [facility] [address] [place], [address] CO2 [Moles/Vol] 27.0 mmol/L Normal 21.0-32.0 [facility] Comment on above: Order Comment: 1Y Performed By: #### L 501.4021, L501.9520 #### [facility] [address] [place], [address] Creatinine [Mass/Vol] 1.11 mg/dL High 0.55-1.02 [facility] Comment on above: Order Comment: 1Y Result Comment: The validity of the calculated GFR GFRAA in patients over 70 years has not been determined. Clinical correlation is essential. Performed By: #### L 501.4021, L501.9520 #### [facility] [address] [place], [address] ECRCL 38.83 ml/min Normal [facility] Comment on above: Order Comment: 1Y Performed By: #### L 501.4021, L501.9520 #### [facility] [address] [place], [address] EST GFR - AA 61 mL/min Normal >60 [facility] Comment on above: Order Comment: 1Y Result Comment: Afri can Moroccan GFR Calc Performed By: #### L 501.4021, L501.9520 #### [facility] [address] [place], [address] GAP 12 Normal 5-15 [facility] Comment on above: Order Comment: 1Y Performed By: #### L 501.4021, L501.9520 #### [facility] [address] [place], [address] GFR/1.73 sq M.predicted among non-blacks MDRD (S/P/Bld) [Vol rate/Area] 51 mL/min/{1.73_m2} Low >60 [facility] Comment on above: Order Comment: 1Y Result Comment: Non- GFR Calc Performed By: #### L 501.4021, L501.9520 #### [facility] [address] [place], [address] Globulin (S) [Mass/Vol] 5.4 g/dL High 2.2-4.2 [facility] Comment on above: Order Comment: 1Y Performed By: #### L 501.4021, L501.9520 #### [facility] [address] [place], [address] Glucose [Mass/Vol] 129 mg/dL High 74-106 [facility] Comment on above: Order Comment: 1Y Result Comment: Fast ing Glucose result greater than or equal to 126 mg/dL suggests DIABETES MELLITUS per A.D.A. criteria. Performed By: #### L 501.4021, L501.9520 #### [facility] [address] [place], [address] Potassium [Moles/Vol] 4.0 mmol/L Normal 3.5-5.1 [facility] Comment on above: Order Comment: 1Y Performed By: #### L 501.4021, L501.9520 #### [facility] [address] [place], [address] Sodium [Moles/Vol] 134 mmol/L Low 136-145 [facility] Comment on above: Order Comment: 1Y Performed By: #### L 501.4021, L501.9520 #### [facility] [address] [place], [address] T PROT 9.0 g/dL High 6.4-8.2 [facility] Comment on above: Order Comment: 1Y Performed By: #### L 501.4021, L501.9520 #### [facility] [address] [place], [address] Urea nitrogen [Mass/Vol] 17 mg/dL Normal 7-18 [facility] Comment on above: Order Comment: 1Y Performed By: #### L 501.4021, L591.3520 #### [facility] [address] [place], [address] Emergency Department Summary on 04-24-2024 Emergency Department Summary [facility] Medical Records Department [address] [place] [address] Emergency Department Summary 04/24/24 MR#: [id number] Acct: [id number] Name: SULEIMAN RAMSEY Rep #: [id number] : 1945 78 From: Stacey BHATT PCP: [...] Recent Immobilization or Prior DVT or PE [facility] Medical History History of recent fall Fatty [...] 04/02/24 Unknown History subcutaneous half-unit pen (Humalog Junior Gauthier [...] Denies constipatio (more content not included)... Normal [facility] Eosinophil percentageOrdered By: Stacey Ward on 04-24-2024 Eosinophils/100 WBC (Bld) 8.5 % High 0-5 [facility] Erythrocyte distribution wid th ratioOrdered By: Stacey Ward on 04-24-2024 Erythrocyte distribution width (RBC) [Ratio] 13.6 % 11.6-14.6 [facility] Erythrocyte distribution wid th standard deviationOrdered By: Stacey Ward on 04-24-2024 Erythrocyte distribution width (RBC) [Entitic vol] 44.3 fL High 35.1-43.9 [facility] Estimated glomerular filtrat ion rate (GFR) AmericanOrdered By: Stacey Ward on 04-24-2024 Estimated GFR (MDRD) Amer 61 mL/min >60 [facility] Comment on above: GFR Calc Estimation of creatinine maria del carmen aranceOrdered By: Stacey Ward on 04-24-2024 Estimated Creatinine Clearance Calc 38.83 ml/min [facility] Glomerular filtration rate ( GFR) estimationOrdered By: Stacey Ward on 04-24-2024 Estimated GFR (MDRD) Non-Af Amer 51 mL/min Low >60 [facility] Comment on above: Non- GFR Calc Glucose measurementOrdered B y: Stacey Ward on 04-24-2024 Glucose [Mass/Vol] 129 mg/dL High 74-106 [facility] Comment on above: Fasting Glucose resu lt greater than or equal to 126 mg/dL suggests DIABETES MELLITUS per A.D.A. criteria. Hematocrit Auto (Bld) [Volum e fraction]Ordered By: Stacey Ward on 04-24-2024 Hematocrit (Bld) [Volume fraction] 40.8 % 37-47 [facility] Hemoglobin measurementOrdere d By: Stacey Ward on 04-24-2024 Hemoglobin (Bld) [Mass/Vol] 13.5 g/dL 12.0-15.0 [facility] Immature granulocytes/100 WB C Auto (Bld)Ordered By: Stacey Ward on 04-24-2024 Immature granulocytes/100 WBC (Bld) 0.500 % 0.0-0.9 [facility] Comment on above: IG% - Immature Granu locytes (promyelocytes, myelocytes and metamyelocytes) > 1% indicates that a LEFT SHIFT is Present. L501.4020on 04-24-2024 TROPONIN-I HS 40 pg/mL Normal 3.0-54.0 [facility] Comment on above: Result Comment: Plea se Note: New Test Units and Gender Specific Reference Ranges. For more information see Policy Stat Procedure Barton High Sensitivity Troponin (TNIH) and attachments. Performed By: #### L 501.4021, L501.9520 #### [facility] [address] [place], [address] L501.5425on 04-24-2024 TROPONIN-I HS 43 pg/mL Normal 3.0-54.0 [facility] Comment on above: Order Comment: 1Y Result Comment: Plea se Note: New Test Units and Gender Specific Reference Ranges. For more information see Policy Stat Procedure Barton High Sensitivity Troponin (TNIH) and attachments. Performed By: #### L 501.4021, L501.9520 #### [facility] [address] [place], [address] Laboratory - Chemistry and C hemistry - challengeOrdered By: Stacey Ward on 04-24-2024 AST [Catalytic activity/Vol] 31 U/L 15-37 [facility] Lipaseon 04-24-2024 Lipase [Catalytic activity/Vol] 41 U/L Normal 13-75 [facility] Comment on above: Order Comment: 1Y Result Comment: Plea se note: LIPASE revised reference range effective 22. New Lipase methodology. Expected to produce lower values than the previous assay method. NEW Reference Range: 13 - 75 U/L Performed By: #### L 501.4021, L501.9520 #### [facility] [address] [place], [place], [address] Lipase measurementOrdered By : Stacey Ward on 04-24-2024 Lipase [Catalytic activity/Vol] 41 U/L 13-75 [facility] Comment on above: Please note:LIPASE r evised reference range effective 22. New Lipase methodology. Expected to produce lower values than the previous assay method. NEW Reference Range: 13 - 75 U/L Lymphocytes Auto (Unsp spec) [#/Vol]Ordered By: Stacey Ward on 04-24-2024 Lymphocytes (Bld) [#/Vol] 2.41 10*3/uL 0.83-4.51 [facility] Lymphocytes/100 WBC Auto (Un sp spec)Ordered By: Stacey Ward on 04-24-2024 Lymphocytes/100 WBC (Bld) 18.4 % Low 19-41 [facility] MCV (mean corpuscular volume ) determinationOrdered By: Stacey Ward on 04-24-2024 MCV (RBC) [Entitic vol] 89.3 fL 81-99 [facility] Mean corpuscular hemoglobin (MCH) determinationOrdered By: Stacey Ward on 04-24-2024 MCH (RBC) [Entitic mass] 29.5 pg 27.0-32.0 [facility] Mean corpuscular hemoglobin concentration (MCHC) determinationOrdered By: Stacey Ward on 04-24-2024 MCHC (RBC) [Mass/Vol] 33.1 g/dL 32-36 [facility] Mean platelet volume determi nationOrdered By: Stacey Ward on 04-24-2024 Platelet mean volume (Bld) [Entitic vol] 10.3 fL 6.2-12.0 [facility] Monocyte percentageOrdered B y: Stacey Ward on 04-24-2024 Monocytes/100 WBC (Bld) 6.5 % 0-10 [facility] Neutrophil percentageOrdered By: Stacey Ward on 04-24-2024 Neutrophils/100 WBC (Bld) 65.0 % 47-70 [facility] Nucleated red blood cell per centageOrdered By: Stacey Ward on 04-24-2024 Nucleated RBC/100 WBC (Bld) [Ratio] 0 % 0-5 [facility] Platelet countOrdered By: Christi Ward on 04-24-2024 Platelets (Bld) [#/Vol] 364 10*3/uL 150-450 [facility] Potassium measurementOrdered By: Stacey Ward on 04-24-2024 Potassium [Moles/Vol] 4.0 mmol/L 3.5-5.1 [facility] RBC Auto (Bld) [#/Vol]Ordere d By: Stacey Ward on 04-24-2024 RBC (Bld) [#/Vol] 4.57 10*6/uL 4.2-5.4 [facility] Serum anion gap measurementO rdered By: Stacey Ward on 04-24-2024 Anion gap [Moles/Vol] 12 mmol/L 5-15 [facility] Serum globulin measurementOr dered By: Stacey Ward on 04-24-2024 Globulin (S) [Mass/Vol] 5.4 g/dL High 2.2-4.2 [facility] Serum or plasma alanine agyle otransferase (ALT) measurementOrdered By: Stacey Ward on 04-24-2024 ALT [Catalytic activity/Vol] 17 U/L 13-56 [facility] Serum or plasma albumin wale urement (mass/volume)Ordered By: Stacey Ward on 04-24-2024 Albumin [Mass/Vol] 3.6 g/dL 3.2-5.0 [facility] [facility] Serum or plasma alkaline valentin sphatase measurementOrdered By: Stacey Ward on 04-24-2024 ALP [Catalytic activity/Vol] 97 U/L 45-117 [facility] Serum or plasma calcium wale urement (mass/volume)Ordered By: Stacey Ward on 04-24-2024 Calcium [Mass/Vol] 11.8 mg/dL High 8.5-10.1 [facility] Serum or plasma creatinine m easurement (mass/volume)Ordered By: Stacey Ward on 04-24-2024 Creatinine [Mass/Vol] 1.11 mg/dL High 0.55-1.02 [facility] Comment on above: The validity of the calculated GFR & GFRAA in patients over 70 years has not been determined. Clinical correlation is essential. Serum or plasma urea nitroge n measurement (mass/volume)Ordered By: Stacey Ward on 04-24-2024 Urea nitrogen [Mass/Vol] 17 mg/dL 7-18 [facility] Sodium levelOrdered By: Ras Ward on 04-24-2024 Sodium [Moles/Vol] 134 mmol/L Low 136-145 [facility] Total proteinOrdered By: Karl Ward on 04-24-2024 Protein [Mass/Vol] 9.0 g/dL High 6.4-8.2 [facility] Troponin IOrdered By: Mik Ward on 04-24-2024 Troponin I High Sensitivity 40 pg/mL 3.0-54.0 [facility] Comment on above: Please Note: New Gill t Units and Gender Specific Reference Ranges. For more information see Policy Stat Procedure [facility] High Sensitivity Troponin (TNIH) and attachments. White blood cell (WBC) count Ordered By: Stacey Ward on 04-24-2024 WBC (Bld) [#/Vol] 13.1 10*3/uL High 4.4-11.0 [facility] H. PYLORI STOOL AGon 024 H PYLORI STL AG Negative Normal Negative [facility] Comment on above: Order Comment: PER P T-JUST STOOL SAMPLE Result Comment: Perf ormed at: - [facility] [address] [id number] Private Tutors And Teachers: Tramaine Palacios PhD, Phone: [phone] Performed By: #### L 501.4020, L526.9520 #### [facility] [address] [place], [place], [id number] Gastroenterology Visit Repor ton 04-02-2024 Gastroenterology Visit Report [facility] Gastroenterology [address] [place] [address] OFFICE VISIT Date of Service: 04/02/24 MR#: [id number] Acct: [id number] Name: SULEIMAN RAMSEY Rep #: [id number] : 1945 Provider: MICK chu Age/Sex: 78/F Location: [facility] [place] Status: Signed Intake Vital Signs 03/30/24 13:34 04/02/24 10:28 Height 5 ft 1 in Weight: 167 lb 8 oz BP 148/86 H Respiration 16 Pulse 74 Temp 98.0 F Pulse Oximetry (%) 96 Oxygen Delivery Method room air Intake Visit Reasons: Hospital FU Chief Complaint: abd. pain, nausea Cost Manager Required: No Accompanied by: Is patient in [...] 04/02/24 History subcutaneous half-unit pen (Humalog Alec Abrahan (U-100)) omeprazole 40 mg capsule,delayed 40 mg PO BID abdominal pain #44 04/02/24 04/02/24 Rx release caps semaglutide 1 mg/dose (4 mg/3 mL) 1 mg subcut QWEEK 04/02/24 04/02/24 History subcutaneous pen injector (Ozempic) Have you fallen in the past year?: No [facility] Medical History History of recent [...] Ondansetron 4mg Q8prn and sucralfate 1g Q6H n08vioh. EGD 01/12/2022 [place] Grade A reflux esophagitis, [...] any melena (more content not included)... Normal [facility] 12 Lead EKGon 03-30-2024 12 Lead EKG [facility] Cardi[facility] Services [address] [address] 12 Lead EKG 03/30/24 1421 MR#: [id number] Acct: [id number] Name: SULEIMAN RAMSEY Rep #: [id number] : 1945 78 From: Gold Farmer MD [...] bundle branch block Abnormal ECG Confirmed by GOLD FARMER MD ([id number]), non linear editor REBECCA SCHREIBER ([id number]) on 03/31/2024 9:53:07 AM Referred By: Confirmed By: GOLD FARMER MD 03/31/24 0953 Date Gold Farmer MD CC: Dr. Miriam Leon DO; Dr. Benny Bosch MD Signed Normal [facility] Basic Metabolic Profile (BMP )on 03-30-2024 BUN/CRE 12.1 RATIO Normal 10-20 [facility] Comment on above: Order Comment: 'TROP ' Serial specimen #1, #2 or #3: 1 Performed By: #### L 501.2450, L501.4020, L501.5200, L500.2500 #### [facility] [address] [place], [address] CA,Total 9.0 mg/dL Normal 8.5-10.1 [facility] Comment on above: Order Comment: 'TROP ' Serial specimen #1, #2 or #3: 1 Performed By: #### L 501.2450, L501.4020, L501.5200, L500.2500 #### [facility] [address] [place], [address] Chloride [Moles/Vol] 109 mmol/L High 98-107 [facility] Comment on above: Order Comment: 'TROP ' Serial specimen #1, #2 or #3: 1 Performed By: #### L 501.2450, L501.4020, L501.5200, L500.2500 #### [facility] [address] [place], [address] CO2 [Moles/Vol] 23.0 mmol/L Normal 21.0-32.0 [facility] Comment on above: Order Comment: 'TROP ' Serial specimen #1, #2 or #3: 1 Performed By: #### L 501.2450, L501.4020, L501.5200, L500.2500 #### [facility] [address] [place], [address] Creatinine [Mass/Vol] 0.99 mg/dL Normal 0.55-1.02 [facility] Comment on above: Order Comment: 'TROP ' Serial specimen #1, #2 or #3: 1 Result Comment: The validity of the calculated GFR GFRAA in patients over 70 years has not been determined. Clinical correlation is essential. Performed By: #### L 501.2450, L501.4020, L501.5200, L500.2500 #### [facility] [address] [place], [address] ECRCL 44.28 ml/min Normal [facility] Comment on above: Order Comment: 'TROP ' Serial specimen #1, #2 or #3: 1 Performed By: #### L 501.2450, L501.4020, L501.5200, L500.2500 #### [facility] [address] [place], [address] EST GFR - AA 70 mL/min Normal >60 [facility] Comment on above: Order Comment: 'TROP ' Serial specimen #1, #2 or #3: 1 Result Comment: Afri can Moroccan GFR Calc Performed By: #### L 501.2450, L501.4020, L501.5200, L500.2500 #### [facility] [address] [place], [address] GAP 5 Normal 5-15 [facility] Comment on above: Order Comment: 'TROP ' Serial specimen #1, #2 or #3: 1 Performed By: #### L 501.2450, L501.4020, L501.5200, L500.2500 #### [facility] [address] [place], [address] GFR/1.73 sq M.predicted among non-blacks MDRD (S/P/Bld) [Vol rate/Area] 57 mL/min/{1.73_m2} Low >60 [facility] Comment on above: Order Comment: 'TROP ' Serial specimen #1, #2 or #3: 1 Result Comment: Non- GFR Calc Performed By: #### L 501.2450, L501.4020, L501.5200, L500.2500 #### [facility] [address] [place], [address] Glucose [Mass/Vol] 177 mg/dL High 74-106 [facility] Comment on above: Order Comment: 'TROP ' Serial specimen #1, #2 or #3: 1 Result Comment: Fast ing Glucose result greater than or equal to 126 mg/dL suggests DIABETES MELLITUS per A.D.A. criteria. Performed By: #### L 501.2450, L501.4020, L501.5200, L500.2500 #### [facility] [address] [place], [address] Potassium [Moles/Vol] 4.1 mmol/L Normal 3.5-5.1 [facility] Comment on above: Order Comment: 'TROP ' Serial specimen #1, #2 or #3: 1 Performed By: #### L 501.2450, L501.4020, L501.5200, L500.2500 #### [facility] [address] [place], [address] Sodium [Moles/Vol] 138 mmol/L Normal 136-145 [facility] Comment on above: Order Comment: 'TROP ' Serial specimen #1, #2 or #3: 1 Performed By: #### L 501.2450, L501.4020, L501.5200, L500.2500 #### [facility] [address] [place], [address] Urea nitrogen [Mass/Vol] 12 mg/dL Normal 7-18 [facility] Comment on above: Order Comment: 'TROP ' Serial specimen #1, #2 or #3: 1 Performed By: #### L 501.2450, L501.4020, L501.5200, L500.2500 #### [facility] [address] [place], [address] CBC W/Diff, Automatedon 11-05 20-2023 Absolute Lymph 1.81 X10 3/uL Normal 0.83-4.51 [facility] Comment on above: Performed By: #### L 100.0100 #### [facility] [address] [place], [address] Absolute Neut 6.4 X10 3/uL Normal 2.0-7.7 [facility] Comment on above: Performed By: #### L 100.0100 #### [facility] [address] [place], [address] Basophils/100 WBC (Bld) 0.6 % Normal 0-1 [facility] Comment on above: Performed By: #### L 100.0100 #### [facility] [address] [place], [address] Eosinophils/100 WBC (Bld) 3.1 % Normal 0-5 [facility] Comment on above: Performed By: #### L 100.0100 #### [facility] [address] [place], [address] Erythrocyte distribution width (RBC) [Ratio] 13.5 % Normal 11.6-14.6 [facility] Comment on above: Performed By: #### L 100.0100 #### [facility] [address] [place], [address] Hematocrit (Bld) [Volume fraction] 39.2 % Normal 37-47 [facility] Comment on above: Performed By: #### L 100.0100 #### [facility] [address] [place], [address] Hemoglobin (Bld) [Mass/Vol] 12.5 g/dL Normal 12.0-15.0 [facility] Comment on above: Performed By: #### L 100.0100 #### [facility] [address] [place], [address] IG% 0.400 Normal 0.0-0.9 [facility] Comment on above: Result Comment: IG% - Immature Granulocytes (promyelocytes, myelocytes and metamyelocytes) > 1% indicates that a LEFT SHIFT is Present. Performed By: #### L 100.0100 #### [facility] [address] [place], [address] Lymphocytes/100 WBC (Bld) 19.5 % Normal 19-41 [facility] Comment on above: Performed By: #### L 100.0100 #### [facility] [address] [place], [address] MCH (RBC) [Entitic mass] 29.1 pg Normal 27.0-32.0 [facility] Comment on above: Performed By: #### L 100.0100 #### [facility] [address] [place], [address] MCHC (RBC) [Mass/Vol] 31.9 g/dL Low 32-36 [facility] Comment on above: Performed By: #### L 100.0100 #### [facility] [address] [place], [address] MCV (RBC) [Entitic vol] 91.4 fL Normal 81-99 [facility] Comment on above: Performed By: #### L 100.0100 #### [facility] [address] [place], [address] Monocytes/100 WBC (Bld) 7.2 % Normal 0-10 [facility] Comment on above: Performed By: #### L 100.0100 #### [facility] [address] [place], [address] Neutrophils/100 WBC (Bld) 69.2 % Normal 47-70 [facility] Comment on above: Performed By: #### L 100.0100 #### [facility] [address] [place], [address] Nucleated RBC (Bld) [#/Vol] 0 10*3/uL Normal 0-5 [facility] Comment on above: Performed By: #### L 100.0100 #### [facility] [address] [place], [address] Platelet mean volume (Bld) [Entitic vol] 9.9 fL Normal 6.2-12.0 [facility] Comment on above: Performed By: #### L 100.0100 #### [facility] [address] [place], [address] Platelets (Bld) [#/Vol] 297 10*3/uL Normal 150-450 [facility] Comment on above: Performed By: #### L 100.0100 #### [facility] [address] [place], [address] RBC (Bld) [#/Vol] 4.29 10*6/uL Normal 4.2-5.4 [facility] Comment on above: Performed By: #### L 100.0100 #### [facility] [address] [place], [address] RDW SD 45.1 fl High 35.1-43.9 [facility] Comment on above: Performed By: #### L 100.0100 #### [facility] [address] [place], [address] WBC (Bld) [#/Vol] 9.3 10*3/uL Normal 4.4-11.0 [facility] Comment on above: Performed By: #### L 100.0100 #### [facility] [address] [place], [address] Emergency Department Summary on 03-30-2024 Emergency Department Summary [facility] Medical Records Department [address] [place] [address] Emergency Department Summary 03/30/24 MR#: [id number] Acct: [id number] Name: SULEIMAN RAMSEY Rep #: [id number] : 1945 78 From: Miriam Leon DO [...] colonoscopy in the past. Has seen Dr. Friend in the past as well but is been a couple years per the daughter [facility] Medical History History of recent fall Fatty [...] 03/15/22 History subcutaneous half-unit pen (Humalog Alec SayikPen (U-100)) ibuprofen 400 mg tablet 400 mg [...] 1 gram tablet (Carafate) 1 g PO [id number] #40 tabs 03/30/24 Unknown Rx Allergy/AdvReac Type Severity Reaction Status Date / Time gabapentin AdvReac Severe Other Verified 03/30/24 13:34 Family History Father Cancer lung/liver/pancreas Myocardial infarction Heart disease Grandfather Rectal cancer paternal Surgical History History of right breast biopsy ( 11/2022) S/P RIKA (more content not included)... Normal [facility] L501.4020on 03-30-2024 TROPONIN-I HS 10 pg/mL Normal 3.0-54.0 [facility] Comment on above: Order Comment: 'TROP ' Serial specimen #1, #2 or #3: 1 Result Comment: Laura garcia Note: New Test Units and Gender Specific Reference Ranges. For more information see Policy Stat Procedure [facility] High Sensitivity Troponin (TNIH) and attachments. Performed By: #### L 501.2450, L501.4020, L501.5200, L500.2500 #### [facility] [address] [place], [address] Lipaseon 03-30-2024 Lipase [Catalytic activity/Vol] 68 U/L Normal 13-75 [facility] Comment on above: Order Comment: 'TROP ' Serial specimen #1, #2 or #3: 1 Result Comment: Laura garcia note: LIPASE revised reference range effective 22. New Lipase methodology. Expected to produce lower values than the previous assay method. NEW Reference Range: 13 - 75 U/L Performed By: #### L 501.2450, L501.4020, L501.5200, L500.2500 #### [facility] [address] [place], [address] Magnesiumon 03-30-2024 Magnesium [Mass/Vol] 1.3 mg/dL Low 1.6-2.6 [facility] Comment on above: Order Comment: 'TROP ' Serial specimen #1, #2 or #3: 1 Performed By: #### L 501.2450, L501.4020, L501.5200, L500.2500 ####[facility] [address] [place], [address] Urinalysis, Completeon 03-30 RBC 0-5 SEEN Normal 0-5 [facility] Comment on above: Order Comment: CLEAN CATCH Performed By: #### L 501.4021, L501.9520 #### [facility] [address] [place], [address] WBC 0-5 SEEN Normal 0-5 [facility] Comment on above: Order Comment: CLEAN CATCH Performed By: #### L 501.4021, L501.9520 #### [facility] [address] [place], [address] BACTERIA 0 SEEN Normal None Seen [facility] Comment on above: Order Comment: CLEAN CATCH Performed By: #### L 501.4021, L501.9520 #### [facility] [address] [place], [address] EPI,SQUAMOUS 0 SEEN Normal 5-10 [facility] Comment on above: Order Comment: CLEAN CATCH Performed By: #### L 501.4021, L501.9520 #### [facility] [address] [place], [address] Mucus Ql (Urine sed) 0 SEEN Normal [facility] Comment on above: Order Comment: CLEAN CATCH Performed By: #### L 501.4021, L501.9520 #### [facility] [address] [place], [address] Abdomen/Pelvis W IV Cont ONL Yon 03-27-2024 Abdomen/Pelvis W IV Cont ONLY [facility] Imaging Services [address] [place] [address] Abdomen/Pelvis W IV Cont ONLY MR#: [id number] Acct: [id number] Name: SULEIMAN RAMSEY Rep #: [id number] : 1945 F 78 From: Avery Collins MD PCP: Dr. Benny Bosch MD Status: REG CLI Study: Abdomen/Pelvis W IV Cont ONLY Date of Exam: Exam# [id number] Ordering Dr: Benny Bosch MD :[id number] STUDY: CT ABDOMEN AND PELVIS WITH CONTRAST [...] 18:00 EST Reading Location ID and State: [address] [place] [address] Tel , Service support , CC: Dr. Benny Bosch MD Professor/Nurse Anesthetist: Signed Normal [facility] CREATININE FINGERSTICKon Creatinine [Mass/Vol] 1.2 mg/dL High 0.55-1.02 [facility] Comment on above: Performed By: #### L 501.4021, L501.9520 #### [facility] [address] [place], [address] GFR/1.73 sq M.predicted among non-blacks MDRD (S/P/Bld) [Vol rate/Area] 44.0000 mL/min/{1.73_m2} Low >60 [facility] Comment on above: Performed By: #### L 501.4021, L501.9520 #### [facility] [address] [facility] [address] Basic metabolic 2000 panelon 03-03-2024 Anion gap [Moles/Vol] 11 mmol/L Normal 8-15 [facility] Comment on above: Order Comment: Speci men Type: BLOOD SPECIMENOrdering Facility: [facility] Address: [address] [place] [address] Performed By: #### 2 4321-2 ####[facility] [id number] [place] [address] [place] Calcium [Mass/Vol] 11.5 mg/dL High 8.5-10.2 [facility] Comment on above: Order Comment: Speci men Type: BLOOD SPECIMENOrdering Facility: [facility] Address: [address] [place] [address] Performed By: #### 2 4321-2 ####[facility] [id number] [place] [address] [place] Chloride [Moles/Vol] 100 mmol/L Normal 98-107 [facility] Comment on above: Order Comment: Speci men Type: BLOOD SPECIMENOrdering Facility: [facility] Address: [address] [place] [address] Performed By: #### 2 4321-2 ####[facility] [id number] [place] [address] [place] CO2 [Moles/Vol] 21 mmol/L Low 22-30 [facility] Comment on above: Order Comment: Speci men Type: BLOOD SPECIMENOrdering Facility: [facility] Address: [address] [place], [place] [address] Performed By: #### 2 4321-2 ####[facility] [id number] [place] [address] [place] Creatinine [Mass/Vol] 0.68 mg/dL Normal 0.58-0.96 [facility] Comment on above: Order Comment: Speci men Type: BLOOD SPECIMENOrdering Facility: [facility] Address: [address] [place] [address] Performed By: #### 2 4321-2 ####[facility] [id number] [place] [address] [place] Creatinine and Glomerular filtration rate.predicted panel (S/P/Bld) 89 mL/min/1.73m??? Normal >=60 [facility] Comment on above: Order Comment: Sebastián esqueda Type: BLOOD SPECIMENOrdering Facility: [facility] Address: [address] [place] [address] Result Comment: Payal mated Glomerular Filtration Rate [...] By: #### 2 4321-2 ####[facility] [id number] [place] [address] [place] Glucose [Mass/Vol] 159 mg/dL High 74-99 [facility] Comment on above: Order Comment: Sebastián esqueda Type: BLOOD SPECIMENOrdering Facility: [facility] Address: [address] [place] [address] Result Comment: The [place] Diabetes Association (ADA) provides guidance for cutoff [...] Standards of Medical Care in Diabetes 2016, [place] Diabetes Association. Diabetes Care. 2016.39(Suppl 1). Performed By: #### 2 4321-2 ####[facility]ETROWNCLIA [id number] [place] [address] [place] Potassium [Moles/Vol] 4.2 mmol/L Normal 3.7-5.1 [facility] Comment on above: Order Comment: Speci men Type: BLOOD SPECIMENOrdering Facility: [facility] Address: [address] [place] [address] Performed By: #### 2 4321-2 ####[facility] [id number] [place] [address] [place] Sodium [Moles/Vol] 132 mmol/L Low 136-144 [facility] Comment on above: Order Comment: Speci men Type: BLOOD SPECIMENOrdering Facility: [facility] Address: [address] [place] [address] Performed By: #### 2 4321-2 ####[facility] [id number] [place] [address] [place] Urea nitrogen [Mass/Vol] 18 mg/dL Normal 7-21 [facility] Comment on above: Order Comment: Speci men Type: BLOOD SPECIMENOrdering Facility: [facility] Address: [address] [place] [address] Performed By: #### 2 4321-2 ####[facility] [id number] [place] [address] [place] CNOVSPon 03-03-2024 CNOVSP Visit (SP) Office ( KAREL) SULEIMAN RAMSEY ([id number]) 1945 F Date Time Provider Department 03/03/24 9:00 AM TREATMENT RM 14 RAFIQ [facility] During your visit today, we recorded the following information about you: Referring Provider: SUSAN WILKINSON [[id number]] Allergies As of Date: 03/03/2024 (No Known Allergies) Date Reviewed: 03/03/2024 Reviewed by: Nina Jarquin Ma, MA - Fully Assessed Reason for Visit: Non-Chemotherapy Treatment [795] Primary Visit Diagnosis:Malignant neoplasm of upper-inner quadrant of right breast in female, estrogen receptor positive (HCC) [C50.211, Z17.0] Order(s):PHARMACY COMMUNICATION PATIENT ARRIVEDDisp: Rfl: [] zoledronic yt-jqvugzmo-5.9NaCl 4 mg iv piggyback 100 mL (ZOMETA)Disp: Rfl: Prescriptions as of 03/03/2024 - anastrozole (ARIMIDEX) 1 mg tablet Take 1 tablet by mouth once daily. - vitamin B complex (SUPER B [id number]-M-50 ORAL) - DULoxetine (CYMBALTA) 30 mg capsule [...] Encounter Status:Closed by MIK JAMESON on 03/03/24 [facility] (H EMAWS) SULEIMAN RAMSEY ([id number]) 1945 F Date Time Provider Department 03/03/24 8:30 AM DANAY GRIFFIN During your visit today, we recorded the following information about you: Temperature Pulse Blood pressure Weight 97.3 degrees 78/minute 155/92 78.9 kg Danay Griffin 03/03/2024 1:24 PM Signed Suleiman Ramsey 1945 03/03/2024 HPI: Suleiman Rajendra Fly is a 78 year old female who presents here today for follow up breast cancer. Per Dr. Chowdhury's previous note: H/o hypertension, left bundle branch block, hypercholesterolemia, hypothyroidism, diabetes, atrophic vaginitis and rosacea. Patient noted a mass in her right breast approximately 6 months prior to presentation. She was seen by her superintendent division to confirm the presence of a mass. She underwent a bilateral diagnostic mammogram with a right-sided ultrasound at [facility] 11/10/2022. The ultrasound demonstrated that the [...] 2/3. ER (clone 6F11) >95% , strong NE (clone 16/1E2) 80%, weak to moderate Her-2Neu (clone CB11) 1 - 2+ (equivocal) Patient had a CT of the chest, abdomen pelvis on 11/29/2022 at [facility]. There was a group of nodular [...] had a bone scan on 12/04/2022 at [facility]. That study demonstrated increased uptake in [...] of no special type (ductal) Histologic Grade ([place] Histologic Score) Glandular (Acinar) / Tubular Differentiation Score 3 Nuclear Pleomorphism Score 2 Mitotic Rate Score 2 (more content not included)... Normal [facility] CNOVon 02-27-2024 [facility] ([id number]) 1945 F Date Time Provider Department 02/27/24 9:00 AM [facility] During your visit today, we recorded the following information about you: Alex Danielle PA-C 02/27/2024 10:38 AM Signed REASON FOR TODAY'S VISIT: Patient presents with: Established Patient HISTORY of PRESENT ILLNESS: Suleiman S Ramsey, 78 year old year old female, s/p a RIGHT mastectomy, RIGHT sentinel lymph node mapping and biopsy (no reconstruction) performed by Dr. Parkinson (Breast Surgeon) on 01/09/2023 Final pathology reports 7.0 cm IDC (margins clear), Grade 3, 0/2 LN, -LVI ER+, NE+, HER2- PATHOLOGICAL STAGE RIGHT BREAST: p,T3,N0 HISTORY: [...] DATE OF EXAM: Nov 26 2023 11:24AM [facility] - [facility] SCREENING W JOVAN / PROCEDURE REASON: multiple diagnoses * * * * Physician Interpretation * * * * RESULT: THIS REPORT HAS BEEN AMENDED. #[id number] - [facility] SCREENING W JOVAN UNILATERAL LEFT DIGITAL [...] dated: 11/10/2022 mammogram and 12/22/2022 mammogram - Formerly [facility], 1928–1983. There are scattered areas of fibroglandular density [...] finding letter sent: Normal - Films Compared Professor/Nurse Anesthetist: Hamzah Transcribe Date/Time: Nov 26 2023 11:01A [...] clear), Grade 3, 0/2 LN, -LVI ER+, NE+, HER2- PATHOLOGICAL STAGE RIGHT BREAST: p,T3,N0 SOZO [...] for fiv (more content not included)... Normal [facility] CNOVon 01-28-2024 CNOV Office Visit (OBGYWM ) SULEIMAN RAMSEY ([id number]) 1945 F Date Time Provider Department 01/28/24 9:40 AM [facility] OBGYWM During your visit today, we recorded the following information about you: Blood pressure Weight Height 130/94 78.9 kg 1.537 m Marshal Park MD 01/28/2024 12:50 PM Signed Clinical Data Assistant offered: Patient declinesRosaura Falcon is a 78 year old who presents for an annual gynecologic exam without complaints. Postmenopausal: Yes Denies post menopausal bleeding HRT use: No. Last Pap: 05/03/2011 normal HPV: 02/11/2007 negative History of abnormal pap: Yes Last mammogram: 2023 History of abnormal mammogram: H/o breast cancer OB History T0 L3 SAB0 IAB0 Ectopic0 Multiple0 Live Births0 [employer]visor [employer] History LMP: Postmenopausal Age at Menarche: Age at First : Age at Menopause: [employer] History Comments: Menarche: 12; Age at 1st [...] discussed with the Patient or Patient's Authorized Program Advisor. As applicable, any other physician, advance practice provider, medical student, or other health professional student that will be observing or involved in the sensitive examination for educational or training purposes was discussed with the Patient or Authorized Program Advisor. The Patient or Authorized Program Advisor has agreed to proceed with the sensitive [...] external genitalia normal, normal Bartholin's glands, urethra, [place]-Bacavi's glands, no vulvar lesions, no cervical lesions, [...] abnormal fin (more content not included)... Normal [facility] CNOVSPon 12-11-2023 CNOVSP Visit (SP) Office (H EMAWS) SULEIMAN RAMSEY ([id number]) 1945 F Date Time Provider Department 12/11/23 10:00 AM SUSAN WILKINSON During your visit today, we recorded the following information about you: Temperature Pulse Blood pressure Weight 97.2 degrees 77/minute 152/83 78.9 kg Susan Wilkinson APRN.ELECTRICAL INTERN 12/12/2023 12:03 PM Signed Chief Complaint Patient [...] to presentation. She was seen by her superintendent division to confirm the presence of a mass. She underwent a bilateral diagnostic mammogram with a right-sided ultrasound at [facility] 11/10/2022. The ultrasound demonstrated that the [...] 2/3. ER (clone 6F11) >95% , strong NE (clone 16/1E2) 80%, weak to moderate Her-2Neu (clone CB11) 1 - 2+ (equivocal) Patient had a CT of the chest, abdomen pelvis on 11/29/2022 at [facility]. There was a group of nodular [...] had a bone scan on 12/04/2022 at [facility]. That study demonstrated increased uptake in [...] of no special type (ductal) Histologic Grade ([place] Histologic Score) Glandular (Acinar) / Tubular Differentiation Score 3 Nuclear Pleomorphis (more content not included)... Normal [facility] Basophil percentageOrdered B y: Leora Villa on 08-23-2023 Hemoglobin (Bld) [Mass/Vol] 11.0 g/dL 12.0-15.0 [facility] WBC (Bld) [#/Vol] 9.7 10*3/uL 4.4-11.0 [facility] Determination of erythrocyte mean corpuscular volume (MCV)Ordered By: Leora Villa on 08-23-2023 MCV (RBC) [Entitic vol] 89.4 fL 81-99 [facility] Erythrocyte distribution wid th ratioOrdered By: Leora Villa on 08-23-2023 Erythrocyte distribution width (RBC) [Ratio] 14.6 % 11.6-14.6 [facility] Erythrocyte distribution wid th standard deviationOrdered By: Leora Villa on 08-23-2023 Erythrocyte distribution width (RBC) [Entitic vol] 46.5 fL 35.1-43.9 [facility] Hematocrit Auto (Bld) [Volum e fraction]Ordered By: Leora Villa on 08-23-2023 Hematocrit (Bld) [Volume fraction] 34.4 % 37-47 [facility] Iron measurement (mass/mass) Ordered By: Leoragerald Villa on 08-23-2023 Iron (Unsp spec) [Mass/Mass] 66 ug/dL 50-170 [facility] Laboratory - Chemistry and C hemistry - challengeOrdered By: Leora Villa on 08-23-2023 Ferritin [Mass/Vol] 13 ng/mL 8-252 [facility] - Hematology and Cell countsOrdered By: Leora Villa on 08-23-2023 MCH (RBC) [Entitic mass] 28.6 pg 27.0-32.0 [facility] MCHC (RBC) [Mass/Vol] 32.0 g/dL 32-36 [facility] Platelet mean volume (Bld) [Entitic vol] 10.6 fL 6.2-12.0 [facility] Platelets (Bld) [#/Vol] 299 10*3/uL 150-450 [facility] No Panel InformationOrdered By: Leora Villa on 08-23-2023 Folate 25.90 ng/mL 3.1-55.4 [facility] Free Triiodothyronine (T3) pg/dL 2.1 pg/mL 2.18-3.98 [facility] Total Iron Binding Capacity 433 ug/dL 250-450 [facility] RBC Auto (Bld) [#/Vol]Ordere d By: Leora Villa on 08-23-2023 RBC (Bld) [#/Vol] 3.85 10*6/uL 4.2-5.4 [facility] - Chemistry and C hemistry - challengeOrdered By: Benny Bosch on 08-08-2023 Magnesium [Mass/Vol] 1.5 mg/dL 1.6-2.6 [facility] Absolute lymphocyte countOrd ered By: Benny Andersonthompson on 08-01-2023 Lymphocytes Auto (Unsp spec) [#/Vol] 1.84 10*3/uL 0.83-4.51 [facility] Automated lymphocyte count a s percentage of total leukocytesOrdered By: Benny Bosch on 08-01-2023 Lymphocytes/100 WBC Auto (Unsp spec) 19.3 % 19-41 [facility] Basophil percentageOrdered B y: Benny Bosch on 08-01-2023 Basophil percentage 5-10 SEEN /hpf 0-5 [facility] Basophils/100 WBC (Bld) 1.3 % 0-1 [facility] Bilirubin [Mass/Vol] 0.40 mg/dL 0.20-1.00 [facility] Comment on above: For patients on eltr ombopag therapy, use of Dimension Barton TBIL is not recommended. Chloride [Moles/Vol] 105 mmol/L 98-107 [facility] Cholesterol [Mass/Vol] 91 mg/dL <200 [facility] Comment on above: <200 mg/dL Desirable 200-240 mg/dL Borderline >240 mg/dL High Risk Eosinophils/100 WBC (Bld) 4.6 % 0-5 [facility] Glucose [Mass/Vol] 187 mg/dL 74-106 [facility] Comment on above: Fasting Glucose resu lt greater than or equal to 126 mg/dL suggests DIABETES MELLITUS per A.D.A. criteria. Hemoglobin (Bld) [Mass/Vol] 10.3 g/dL 12.0-15.0 [facility] Monocytes/100 WBC (Bld) 7.1 % 0-10 [facility] Neutrophils (Bld) [#/Vol] 6.4 10*3/uL 2.0-7.7 [facility] Neutrophils/100 WBC (Bld) 67.1 % 47-70 [facility] Potassium [Moles/Vol] 3.9 mmol/L 3.5-5.1 [facility] Protein [Mass/Vol] 7.2 g/dL 6.4-8.2 [facility] Sodium [Moles/Vol] 138 mmol/L 136-145 [facility] Triglyceride [Mass/Vol] 183 mg/dL <199 [facility] Comment on above: The drugs N-Acetylcy steine and Metamizole may falsely depress this assay.Serum Triglycerides Reference Interval Normal <150 mg/dL Borderline high 150 - 199 mg/dL High 200 - 499 mg/dL Very High > or = 500 mg/dL WBC (Bld) [#/Vol] 9.6 10*3/uL 4.4-11.0 [facility] Bilirubin Test strip Ql (U)O rdered By: Benny Bosch on 08-01-2023 Bilirubin Ql (U) Negative Negative [facility] Determination of erythrocyte mean corpuscular volume (MCV)Ordered By: Benny Bosch on 08-01-2023 MCV (RBC) [Entitic vol] 88.4 fL 81-99 [facility] Erythrocyte distribution wid th ratioOrdered By: Benny Bosch on 08-01-2023 Erythrocyte distribution width (RBC) [Ratio] 14.0 % 11.6-14.6 [facility] Erythrocyte distribution wid th standard deviationOrdered By: Benny Bosch on 08-01-2023 Erythrocyte distribution width (RBC) [Entitic vol] 44.7 fL 35.1-43.9 [facility] Hematocrit Auto (Bld) [Volum e fraction]Ordered By: Benny Bosch on 08-01-2023 Hematocrit (Bld) [Volume fraction] 32.9 % 37-47 [facility] Immature granulocytes/100 WB C Auto (Bld)Ordered By: Benny Bosch on 08-01-2023 Immature granulocytes/100 WBC (Bld) 0.600 % 0.0-0.9 [facility] Comment on above: IG% - Immature Granu locytes (promyelocytes, myelocytes and metamyelocytes) > 1% indicates that a LEFT SHIFT is Present. Ketones Test strip Ql (U)Ord ered By: Benny Bosch on 08-01-2023 Ketones Ql (U) Negative Negative [facility] Laboratory - Chemistry and C hemistry - challengeOrdered By: Benny Bosch on 08-01-2023 Albumin/Globulin [Mass ratio] 0.8 {ratio} 0.9-2.4 [facility] ALP [Catalytic activity/Vol] 73 U/L 45-117 [facility] ALT [Catalytic activity/Vol] 26 U/L 13-56 [facility] Cholesterol in HDL [Mass/Vol] 36 mg/dL >40 [facility] Comment on above: The drugs N-Acetylcy steine and Metamizole may falsely depress this assay. Reference Range HDL <40 mg/dL Low HDL Cholesterol HDL >or= 60 mg/dL High HDL Cholesterol Cholesterol in LDL [Mass/Vol] 18 mg/dL 0-130 [facility] CO2 [Moles/Vol] 25.0 mmol/L 21.0-32.0 [facility] Globulin (S) [Mass/Vol] 4.1 g/dL 2.2-4.2 [facility] Magnesium [Mass/Vol] 1.0 mg/dL 1.6-2.6 [facility] Urea nitrogen/Creatinine [Mass ratio] 20.1 mg/mg 10-20 [facility] Laboratory - Hematology and Cell countsOrdered By: Benny Bosch on 08-01-2023 MCH (RBC) [Entitic mass] 27.7 pg 27.0-32.0 [facility] MCHC (RBC) [Mass/Vol] 31.3 g/dL 32-36 [facility] Nucleated RBC/100 WBC (Bld) [Ratio] 0 % 0-5 [facility] Platelet mean volume (Bld) [Entitic vol] 10.3 fL 6.2-12.0 [facility] Platelets (Bld) [#/Vol] 253 10*3/uL 150-450 [facility] Mucus LM Ql (Urine sed)Order ed By: Benny Bosch on 08-01-2023 Mucus Ql (Urine sed) 0 SEEN /hpf [facility] Nitrite Test strip Ql (U)Ord ered By: Benny Bosch on 08-01-2023 Nitrite Ql (U) Negative Negative [facility] No Panel InformationOrdered By: Benny Bosch on 08-01-2023 Estimated GFR (MDRD) Amer 105 mL/min >60 [facility] Comment on above: GFR Calc Estimated GFR (MDRD) Non-Af Amer 87 mL/min >60 [facility] Comment on above: Non- GFR Calc Urine Microalbumin/Creatini ne Ratio 70.5 mg/g CRE <30 [facility] Urine RBC 0-5 SEEN /hpf 0-5 [facility] Vitamin B12 Level > 2000 pg/mL 211-911 [facility] Vitamin B6 Level 9.1 ug/L 3.4-65.2 [facility] Comment on above: Deficiency: <3.4 Mar ginal: 3.4 - 5.1 Adequate: >5.1 Vitamin D 25-Hydroxy 45.8 ng/mL [facility] Comment on above: Vitamin D 25(OH) Sta tus Range Deficiency <20 ng/mL (50nmol/L) Insufficiency 20 - 30 ng/mL (50 - 75 nmol/L) Sufficiency 30 - 100 ng/mL (75 - 250 nmol/L) Toxicity >100 ng/mL (>250 nmol/L) VLDL Cholesterol 37 mg/dL 5-40 [facility] Protein Test strip Ql (U)Ord ered By: Benny Bosch on 08-01-2023 Protein Ql (U) 15 mg/dl Negative [facility] RBC Auto (Bld) [#/Vol]Ordere d By: Benny Bosch on 08-01-2023 RBC (Bld) [#/Vol] 3.72 10*6/uL 4.2-5.4 [facility] Serum or plasma calcium wale urement (mass/volume)Ordered By: Benny Bosch on 08-01-2023 Calcium [Mass/Vol] 9.5 mg/dL 8.5-10.1 [facility] Serum or plasma creatinine m easurement (mass/volume)Ordered By: Benny Bosch on 08-01-2023 Creatinine [Mass/Vol] 0.70 mg/dL 0.55-1.02 [facility] Comment on above: The validity of the calculated GFR & GFRAA in patients over 70 years has not been determined. Clinical correlation is essential. Serum or plasma thiamine vineet surement (mass/volume)Ordered By: Benny Bosch on 08-01-2023 Thiamine [Mass/Vol] 196.9 nmol/L 66.5-200.0 [facility] Comment on above: Performed at: [address] [id number] Director: Yogesh Ramos MD, Phone: [phone] Serum or plasma thyroid stim ulating hormone (TSH) measurement (units/volume)Ordered By: Benny Bosch on 08-01-2023 TSH Qn 1.65 uIU/mL 0.358-3.74 [facility] Serum or plasma urea nitroge n measurement (mass/volume)Ordered By: Benny Bosch on 08-01-2023 Urea nitrogen [Mass/Vol] 14 mg/dL 7-18 [facility] Squamous epithelial cells de tection in urine sediment by light microscopyOrdered By: Benny Bosch on 08-01-2023 Epithelial cells.squamous LM Ql (Urine sed) 0-5 SEEN /hpf 5-10 [facility] Thin prep Papanicolaou smear with manual screeningOrdered By: Benny Bosch on 08-01-2023 Thin prep Papanicolaou smear with manual screening 3.1 g/dL 3.2-5.0 [facility] Thin prep Papanicolaou smear with manual screening 57 U/L 15-37 [facility] Thin prep Papanicolaou smear with manual screening 8 5-15 [facility] Thin prep Papanicolaou smear with manual screening 61.4 mg/L NO RANGE EST. [facility] Thin prep Papanicolaou smear with manual screening 1.50 ng/dL 0.76-1.46 [facility] Urine blood detectionOrdered By: Benny Bosch on 08-01-2023 RBC Ql (U) Negative Negative [facility] Urine clarityOrdered By: Shmuel Bosch on 08-01-2023 Clarity (U) Clear Clear [facility] Urine color determinationOrd ered By: Benny Bosch on 08-01-2023 Color (U) Yellow Yellow [facility] Urine creatinine measurement (mass/volume)Ordered By: Benny Bosch on 08-01-2023 Creatinine (U) [Mass/Vol] 87.10 mg/dL NO RANGE EST. [facility] Urine glucose detectionOrder ed By: Benny Bosch on 08-01-2023 Glucose Ql (U) Normal mg/dl Normal [facility] Urine leukocyte esterase det ection by dipstickOrdered By: Benny Bosch on 08-01-2023 Leukocyte esterase Test strip Ql (U) 100 /ul Negative [facility] Urine pHOrdered By: Benny christopher on 08-01-2023 pH (U) 6.0 [pH] 5.0 - 8.0 [facility] Urine sediment bacteria coun t by microscopy (number/high power field)Ordered By: Benny Bosch on 08-01-2023 Bacteria LM.HPF (Urine sed) [#/Area] 1 /[HPF] None Seen [facility] Urine specific gravity measu rementOrdered By: Benny Bosch on 08-01-2023 Specific gravity (U) [Rel density] 1.015 1.002-1.03 0 [facility] Urine urobilinogen measureme ntOrdered By: Benny Bosch on 08-01-2023 Urobilinogen Ql (U) Normal mg/dl Normal [facility] Whole blood hemoglobin A1c/t otal hemoglobin ratio (mass fraction)Ordered By: Benny Bosch on 08-01-2023 HbA1c (Bld) [Mass fraction] 8.0 % 3.8-5.6 [facility] Comment on above: Normal < 5.7 % Predi abetic 5.7 - 6.4 % Diabetic >or= 6.5 % Please note range changes. Basophil percentageOrdered B y: Anuj Elizabeth on 06-28-2023 Basophil percentage >100 SEEN /hpf 0-5 [facility] Bilirubin Test strip Ql (U)O rdered By: Anuj Elizabeth on 06-28-2023 Bilirubin Ql (U) Negative Negative [facility] Culture, urineOrdered By: Walker Elizabeth on 06-28-2023 Bacteria identified Cx Nom (U) Escherichia coli [facility] Bacteria identified Cx Nom (U) Escherichia coli [facility] Ketones Test strip Ql (U)Ord ered By: Anuj Elizabeth on 06-28-2023 Ketones Ql (U) Negative Negative [facility] Laboratory - Chemistry and C hemistry - challengeon 06-28-2023 Bilirubin Ql (U) Negative [facility] Glucose Ql (U) Negative [facility] Ketones Ql (U) Negative [facility] pH (U) 7.0 [pH] [facility] Specific gravity (U) [Rel density] 1.010 [facility] Urobilinogen (U) [Mass/Vol] 0.6313229 mg/dL [facility] Laboratory - Hematology and Cell countson 06-28-2023 Hemoglobin Ql (U) Moderate [facility] Laboratory - Specimen inform ationon 06-28-2023 Clarity (U) Cloudy [facility] Color (U) YELLOW [facility] Laboratory - Urinalysison Nitrite Ql (U) Negative [facility] Protein Ql (U) Negative [facility] Mucus LM Ql (Urine sed)Order ed By: Anuj Elizabeth on 06-28-2023 Mucus Ql (Urine sed) 0 SEEN /hpf [facility] Nitrite Test strip Ql (U)Ord ered By: Anuj Elizabeth on 06-28-2023 Nitrite Ql (U) Positive Negative [facility] No Panel InformationOrdered By: Anuj Elizabeth on 06-28-2023 Urine RBC 0 SEEN /hpf 0-5 [facility] No Panel Informationon 06-28 Urine Leukocytes Positive [facility] Urine Non-Hemolyzed Blood Negative [facility] Protein Test strip Ql (U)Ord ered By: Anuj Elizabeth on 06-28-2023 Protein Ql (U) 30 mg/dl Negative [facility] Squamous epithelial cells de tection in urine sediment by light microscopyOrdered By: Anuj Elizabeth on 06-28-2023 Epithelial cells.squamous LM Ql (Urine sed) 0-5 SEEN /hpf 5-10 [facility] Urine blood detectionOrdered By: Anuj Elizabeth on 06-28-2023 RBC Ql (U) 25 /ul Negative [facility] Urine clarityOrdered By: Sarath Elizabeth on 06-28-2023 Clarity (U) Sl. Cloudy Clear [facility] Urine color determinationOrd ered By: Anuj Elizabeth on 06-28-2023 Color (U) Yellow Yellow [facility] Urine glucose detectionOrder ed By: Aunj Elizabeth on 06-28-2023 Glucose Ql (U) Normal mg/dl Normal [facility] Urine leukocyte esterase det ection by dipstickOrdered By: Anuj Elizabeth on 06-28-2023 Leukocyte esterase Test strip Ql (U) 500 /ul Negative [facility] Urine pHOrdered By: Anuj gaitan on 06-28-2023 pH (U) 8.0 [pH] 5.0 - 8.0 [facility] Urine sediment bacteria coun t by microscopy (number/high power field)Ordered By: Anuj Elizabeth on 06-28-2023 Bacteria LM.HPF (Urine sed) [#/Area] 1 /[HPF] None Seen [facility] Urine specific gravity measu rementOrdered By: Anuj Elizabeth on 06-28-2023 Specific gravity (U) [Rel density] 1.010 1.002-1.03 0 [facility] Urine urobilinogen measureme ntOrdered By: Anuj Elizabeth on 06-28-2023 Urobilinogen Ql (U) Normal mg/dl Normal [facility] Basophil percentageOrdered B y: Annmarie Saunders on 05-21-2023 Basophil percentage 0 SEEN /hpf 0-5 [facility] Bilirubin Test strip Ql (U)O rdered By: Annmarie Saunders on 05-21-2023 Bilirubin Ql (U) Negative Negative [facility] Culture, urineOrdered By: Onel Saunders on 05-21-2023 Bacteria identified Cx Nom (U) Culture exhibits no growth. [facility] Bacteria identified Cx Nom (U) Culture exhibits no growth. [facility] Ketones Test strip Ql (U)Ord ered By: Annmarie Saunders on 05-21-2023 Ketones Ql (U) Negative Negative [facility] Mucus LM Ql (Urine sed)Order ed By: Annmarie Saunders on 05-21-2023 Mucus Ql (Urine sed) 0 SEEN /hpf [facility] Nitrite Test strip Ql (U)Ord ered By: Annmarie Saunders on 05-21-2023 Nitrite Ql (U) Negative Negative [facility] Protein Test strip Ql (U)Ord ered By: Annmarie Saunders on 05-21-2023 Protein Ql (U) Negative Negative [facility] Squamous epithelial cells de tection in urine sediment by light microscopyOrdered By: Annmarie Saunders on 05-21-2023 Epithelial cells.squamous LM Ql (Urine sed) 0 SEEN /hpf 5-10 [facility] Urine blood detectionOrdered By: Annmarie Saunders on 05-21-2023 RBC Ql (U) Negative Negative [facility] RBC Ql (U) 0 SEEN /hpf 0-5 [facility] Urine clarityOrdered By: Cameron Saunders on 05-21-2023 Clarity (U) Clear Clear [facility] Urine color determinationOrd ered By: Annmarie Saunders on 05-21-2023 Color (U) Yellow Yellow [facility] Urine glucose detectionOrder ed By: Annmarie Saunders on 05-21-2023 Glucose Ql (U) Normal mg/dl Normal [facility] Urine leukocyte esterase det ection by dipstickOrdered By: Annmarie Saunders on 05-21-2023 Leukocyte esterase Test strip Ql (U) Negative Negative [facility] Urine pHOrdered By: Dru Saunders on 05-21-2023 pH (U) 6.0 [pH] 5.0 - 8.0 [facility] Urine sediment bacteria coun t by microscopy (number/high power field)Ordered By: Annmarie Saunders on 05-21-2023 Bacteria LM.HPF (Urine sed) [#/Area] 0 /[HPF] None Seen [facility] Urine specific gravity measu rementOrdered By: Annmarie Saunders on 05-21-2023 Specific gravity (U) [Rel density] 1.015 1.002-1.03 0 [facility] Urobilinogen Auto test strip Ql (U)Ordered By: Annmarie Saunders on 05-21-2023 Urobilinogen Ql (U) Normal mg/dl Normal [facility] Laboratory - Chemistry and C hemistry - challengeon 05-19-2023 Bilirubin Ql (U) Negative [facility] Glucose Ql (U) Negative [facility] Ketones Ql (U) Negative [facility] pH (U) 5.0 [pH] [facility] Specific gravity (U) [Rel density] 1.010 [facility] Urobilinogen (U) [Mass/Vol] Negative [facility] Laboratory - Hematology and Cell countson 05-19-2023 Hemoglobin Ql (U) Negative [facility] Laboratory - Specimen inform ationon 05-19-2023 Clarity (U) Turbid [facility] Color (U) YELLOW [facility] Laboratory - Urinalysison Nitrite Ql (U) Negative [facility] Protein Ql (U) Negative [facility] No Panel Informationon 05-19 Urine Leukocytes Positive [facility] Urine Non-Hemolyzed Blood Negative [facility] Basophil percentageOrdered B y: Leora Villa on 05-15-2023 Bilirubin [Mass/Vol] 0.40 mg/dL 0.20-1.00 [facility] Comment on above: For patients on eltr ombopag therapy, use of Dimension [place] TBIL is not recommended. Chloride [Moles/Vol] 105 mmol/L 98-107 [facility] Cholesterol [Mass/Vol] 105 mg/dL <200 [facility] Comment on above: <200 mg/dL Desirable 200-240 mg/dL Borderline >240 mg/dL High Risk Glucose [Mass/Vol] 217 mg/dL 74-106 [facility] Comment on above: Glucose result great er than or equal to 200 mg/dLsuggests DIABETES MELLITUS per A.D.A. criteria. Potassium [Moles/Vol] 3.7 mmol/L 3.5-5.1 [facility] Protein [Mass/Vol] 7.5 g/dL 6.4-8.2 [facility] Sodium [Moles/Vol] 139 mmol/L 136-145 [facility] Triglyceride [Mass/Vol] 304 mg/dL <199 [facility] Comment on above: The drugs N-Acetylcy steine and Metamizole may falsely depress this assay.Serum Triglycerides Reference Interval Normal <150 mg/dL Borderline high 150 - 199 mg/dL High 200 - 499 mg/dL Very High > or = 500 mg/dL Laboratory - Chemistry and C hemistry - challengeOrdered By: Leora Villa on 05-15-2023 ALP [Catalytic activity/Vol] 93 U/L 45-117 [facility] ALT [Catalytic activity/Vol] 20 U/L 13-56 [facility] CO2 [Moles/Vol] 24.0 mmol/L 21.0-32.0 [facility] Free T4 [Mass/Vol] 1.25 ng/dL 0.76-1.46 [facility] Globulin (S) [Mass/Vol] 4.1 g/dL 2.2-4.2 [facility] Urea nitrogen/Creatinine [Mass ratio] 18.8 mg/mg 10-20 [facility] No Panel InformationOrdered By: Leora Villa on 05-15-2023 Estimated GFR (MDRD) Amer 90 mL/min >60 [facility] Comment on above: GFR Calc Estimated GFR (MDRD) Non-Af Amer 74 mL/min >60 [facility] Comment on above: Non- GFR Calc Thyroid Stimulating Hormone (TSH) 4.57 uIU/mL 0.358-3.74 [facility] Urine Microalbumin/Creatini ne Ratio 49.2 mg/g CRE <30 [facility] Serum or plasma albumin wale urement (mass/volume)Ordered By: Leora Villa on 05-15-2023 Albumin [Mass/Vol] 3.4 g/dL 3.2-5.0 [facility] Serum or plasma albumin/glob ulin mass ratioOrdered By: Leora Villa on 05-15-2023 Albumin/Globulin [Mass ratio] 0.8 {ratio} 0.9-2.4 [facility] Serum or plasma calcium wale urement (mass/volume)Ordered By: Loera Villa on 05-15-2023 Calcium [Mass/Vol] 9.4 mg/dL 8.5-10.1 [facility] Serum or plasma cholesterol in HDL measurement (mass/volume)Ordered By: Leora Villa on 05-15-2023 Cholesterol in HDL [Mass/Vol] 38 mg/dL >40 [facility] Comment on above: The drugs N-Acetylcy steine and Metamizole may falsely depress this assay. Reference Range HDL <40 mg/dL Low HDL Cholesterol HDL >or= 60 mg/dL High HDL Cholesterol Serum or plasma cholesterol in VLDL measurement (mass/volume)Ordered By: Leora Villa on 05-15-2023 Cholesterol in VLDL [Mass/Vol] 61 mg/dL 5-40 [facility] Serum or plasma creatinine m easurement (mass/volume)Ordered By: Leora Villa on 05-15-2023 Creatinine [Mass/Vol] 0.80 mg/dL 0.55-1.02 [facility] Comment on above: The validity of the calculated GFR & GFRAA in patients over 70 years has not been determined. Clinical correlation is essential. Serum or plasma low density lipoprotein (LDL) cholesterol measurement (mass/volume)Ordered By: Leora Villa on 05-15-2023 Cholesterol in LDL [Mass/Vol] 6 mg/dL 0-130 [facility] Serum or plasma urea nitroge n measurement (mass/volume)Ordered By: Leoragerald Villa on 05-15-2023 Urea nitrogen [Mass/Vol] 15 mg/dL 7-18 [facility] Thin prep Papanicolaou smear with manual screeningOrdered By: Leoragerald Villa on 05-15-2023 Thin prep Papanicolaou smear with manual screening 44 U/L 15-37 [facility] Thin prep Papanicolaou smear with manual screening 10 5-15 [facility] Thin prep Papanicolaou smear with manual screening 55.1 mg/L NO RANGE EST. [facility] Urine creatinine measurement (mass/volume)Ordered By: Leora Villa on 05-15-2023 Creatinine (U) [Mass/Vol] 112.00 mg/dL NO RANGE EST. [facility] Whole blood hemoglobin A1c/t otal hemoglobin ratio (mass fraction)Ordered By: Leora Villa on 05-15-2023 HbA1c (Bld) [Mass fraction] 7.4 % 3.8-5.6 [facility] Comment on above: Normal < 5.7 % Predi abetic 5.7 - 6.4 % Diabetic >or= 6.5 % Please note range changes. Culture, urineOrdered By: Walker Elizabeth on 02-23-2023 Bacteria identified Cx Nom (U) Presumptive E. coli [facility] Basophil percentageOrdered B y: Anuj Elizabeth on 02-22-2023 Basophil percentage 10-25 SEEN /hpf 0-5 [facility] Bilirubin Test strip Ql (U)O rdered By: Anuj Elizabeth on 02-22-2023 Bilirubin Ql (U) Negative Negative [facility] Ketones Test strip Ql (U)Ord ered By: Anuj Elizabeth on 02-22-2023 Ketones Ql (U) Negative Negative [facility] Laboratory - Chemistry and C hemistry - challengeon 02-22-2023 Bilirubin Ql (U) Negative [facility] Glucose Ql (U) Negative [facility] Ketones Ql (U) Moderate (40+) [facility] pH (U) 5.0 [pH] [facility] Specific gravity (U) [Rel density] 1.010 [facility] Urobilinogen (U) [Mass/Vol] 0.0843758 mg/dL [facility] Laboratory - Hematology and Cell countson 02-22-2023 Hemoglobin Ql (U) Negative [facility] Laboratory - Specimen inform ationon 02-22-2023 Clarity (U) Clear [facility] Color (U) Yellow [facility] Laboratory - Urinalysison Nitrite Ql (U) Negative [facility] Protein Ql (U) Negative [facility] Mucus LM Ql (Urine sed)Order ed By: Anuj Elizabeth on 02-22-2023 Mucus Ql (Urine sed) 0 SEEN /hpf [facility] Nitrite Test strip Ql (U)Ord ered By: Anuj Elizabeth on 02-22-2023 Nitrite Ql (U) Negative Negative [facility] No Panel InformationOrdered By: Anuj Elizabeth on 02-22-2023 Urine Transitional Epithelial Cells 0-5 SEEN /hpf 0-5 [facility] No Panel Informationon 02-22 Urine Leukocytes Positive [facility] Urine Non-Hemolyzed Blood Negative [facility] Protein Test strip Ql (U)Ord ered By: Anuj Elizabeth on 02-22-2023 Protein Ql (U) Negative Negative [facility] Squamous epithelial cells de tection in urine sediment by light microscopyOrdered By: Anuj Elizabeth on 02-22-2023 Epithelial cells.squamous LM Ql (Urine sed) 0-5 SEEN /hpf 5-10 [facility] Urine blood detectionOrdered By: Anuj Elizabeth on 02-22-2023 RBC Ql (U) 10 /ul Negative [facility] RBC Ql (U) 0 SEEN /hpf 0-5 [facility] Urine clarityOrdered By: Sarath Elizabeth on 02-22-2023 Clarity (U) Clear Clear [facility] Urine color determinationOrd ered By: Anuj Elizabeth on 02-22-2023 Color (U) Yellow Yellow [facility] Urine glucose detectionOrder ed By: Anuj Elizabeth on 02-22-2023 Glucose Ql (U) Normal mg/dl Normal [facility] Urine leukocyte esterase det ection by dipstickOrdered By: Anuj Elizabeth on 02-22-2023 Leukocyte esterase Test strip Ql (U) 100 /ul Negative [facility] Urine pHOrdered By: Anuj gaitan on 02-22-2023 pH (U) 6.5 [pH] 5.0 - 8.0 [facility] Urine sediment bacteria coun t by microscopy (number/high power field)Ordered By: Anuj Elizabeth on 02-22-2023 Bacteria LM.HPF (Urine sed) [#/Area] 1 /[HPF] None Seen [facility] Urine specific gravity measu rementOrdered By: Anuj Elizabeth on 02-22-2023 Specific gravity (U) [Rel density] 1.005 1.002-1.03 0 [facility] Urobilinogen Auto test strip Ql (U)Ordered By: Anuj Elizabeth on 02-22-2023 Urobilinogen Ql (U) Normal mg/dl Normal [facility] CNOVon 02-09-2023 CNOV Office Visit (GENSF) SULEIMAN RAMSEY ([id number]) 1945 F Date Time Provider Department 02/09/23 3:00 PM ALEX DANIELLE During your visit today, [...] clear), Grade 3, 0/2 LN, -LVI ER+, NE+, HER2- PATHOLOGICAL STAGE RIGHT BREAST: p,T3,N0 Small [...] see report Is the patient active on Conversion [employer] Yes Electronically Signed By: Brandy Morales LPN [...] Drug use: No Referring Provider: BENNY BOSCH [[id number]] Allergies As of Date: 02/09/2023 (No Known [...] mouth once daily. (more content not included)... [facility] CNOVon 01-26-2023 CNOV Office Visit (GENSF) SULEIMAN RAMSEY ([id number]) 1945 F Date Time Provider Department 01/26/23 [...] neck mckayla (more content not included)... Normal [facility] 01-19-2023 [facility] Office Visit (GENSF) SULEIMAN RAMSEY ([id number]) 1945 F Date Time Provider Department 01/19/23 1:00 PM ALEX DANIELLE During your visit today, [...] of no special type (ductal) Histologic Grade ([place] Histologic Score) Glandular (Acinar) / Tubular Differentiation [...] Examined (sentinel and non-sentinel) 2 Number of [place] Nodes Examined 2 pTNM CLASSIFICATION (AJCC 8th [...] Negative (not amplified) Testing Performed on Comment(s) Program Advisor tumor block: A18 . ASSESSMENT: Suleiman Ramsey, 77 year old year old female, s/p a RIGHT mastectomy, RIGHT sentinel lymph node mapping and biopsy (No reconstruction) performed by Dr. 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 [facility] 01-11-2023 CNPN Telephone (GENSF) SULEIMAN RAMSEY ([id number]) 1945 F Date Time Provider Department 01/11/23 KEILA GODOY During your visit today, we recorded the following information about you: Keila Godoy RN 01/11/2023 11:03 AM Signed BREAST HEALTH NURSE POST-OP PHONE CONTACT: Suleiman Ramsey was contacted via telephone as follow-up from recent breast surgery. I spoke with her daughter as pt was sleeping at the time of this call. TOPICS ADDRESSED: PAIN ASSESSMENT: Yes LOCATION: surgical incisions PAIN CHARACTER: aching MEDICATIONS: Took one [place] last night at [facility], otherwise Tylenol prn [...] mL) injection - insulin glargine U-300 conc (TOUJOSE ENRIQUEO SOLOSTAR U-300 INSULIN) 300 unit/mL (1.5 mL) [...] 06/09/2012 Hyperpigmentation (more content not included)... Normal [facility] ANES POSTPROC EVALon 023 ANES POSTPROC EVAL HNO ID: [id number] Author: Nina Echols MD Service: Anesthesiology Author [...] end time was 60 minutes or longer. (4255F), Anesthesia administered was General (Inhalational or TIVA), [...] January 15, 2023 TIME: 9:16 AM CSN: [id number] [facility] ANES PRE-OPon 01-09-2023 ANES PRE-OP HNO ID: [id number] Author: Benji Mayo MD Service: Anesthesiology Author Type: Anesthesiologist Type: Anesthesia Preprocedure Evaluation Filed: 01/09/2023 8:28 AM Note Text: ANESTHESIOLOGY DAY OF SURGERY NOTE : 1945 Procedure Information Date/Time: 01/09/2345 Procedures: MASTECTOMY SIMPLE (Right: Breast) INTRAOPERATIVE ID [...] and consent discussed: yes. Patient / Responsible Democrat agrees to proceed: yes Patient / Surrogate [...] Mayo MD P (more content not included)... [facility] BRIEF OP NOTon 01-09-2023 BRIEF OP NOT HNO ID: [id number] Author: Micki Parkinson DO Service: General Surgery Author Type: Physician Type: Brief Op Note Filed: 01/09/2023 2:12 PM Note Text: BRIEF OPERATIVE / PROCEDURE NOTE LOG ID: [id number] SURGERY/PROCEDURE DATE: 01/09/2023 INCISION/PROCEDURE START TIME: 12:42 PM INCISION CLOSE/PROCEDURE END TIME: SURGEON(S)/PROCEDURALIST(S) AND APPLIED SCIENCE AND TECHNOLOGIES DEAN(S): Surgeon(s) and Role: * Micki Parkinson DO - Primary * Mabel Loredo MD - Resident - Assisting Physician Sheet Metal Supervisor: Alex Danielle PA-C SURGERY/PROCEDURE(S): RIGHT mastectomy RIGHT breast blue dye lymphatic tracer injection RIGHT breast nuclear medicine lymphatic tracer injection RIGHT sentinel lymph node biopsy ANESTHESIA: General FINDINGS: SLN x2 ESTIMATED BLOOD LOSS: 50 mls SPECIMENS: ID Type Source Tests Collected by Time Destination A : Tissue BREAST MASTECTOMY RIGHT SURGICAL PATHOLOGY Micki Parkinson DO 01/09/2023 1:52 PM B : Superior radial margin. Tissue BREAST MARGIN RIGHT SURGICAL PATHOLOGY Micki Parkinson, 01/09/2023 1:54 PM C : Right sentinel lymph node x 2. Tissue SENTINEL LYMPH NODE RIGHT SURGICAL PATHOLOGY Micki Parkinson DO 01/09/2023 1:56 PM D : Tissue BREAST MARGIN RIGHT SURGICAL PATHOLOGY Micki Parkinson, 01/09/2023 2:10 PM COMPLICATIONS: None CLOSURE TECHNIQUE: Primary PRE-OP/PRE-PROCEDURE DIAGNOSIS: RIGHT breast cancer POST-OP/POST-PROCEDURE DIAGNOSIS: Same as Preop SIGNATURE: Micki Parkinson DO PATIENT NAME: Suleiman Ramsey DATE: January 09, 2023 TIME: 2:08 PM Normal [facility] SURGICAL BREAST SPECIMEN RTon 01-09-2023 [facility] SURGICAL BREAST SPECIMEN RT * * *Final Report* * * DATE OF EXAM: Jan 09 2023 1:46PM [facility] [id number] - [facility] SURGICAL BREAST SPECIMEN RT / PROCEDURE REASON: Other (document in comments) * * * * Physician Interpretation * * * * RESULT: #[id number] - [facility] SURGICAL BREAST SPECIMEN RT UNI-PLANAR RADIOGRAPH SPECIMEN IMAGING RIGHT BREAST: 01/09/2023 HISTORY: Other (Document In Comments)/ Right surgical specimen. Correlation is made to exams dated: 12/22/2022 mammogram and 12/22/2022 ultrasound - [facility], 1928[facility]1983. A full mastectomy specimen was imaged using uni-planar radiograph specimen imaging for the previous biopsy site located in the right breast. IMPRESSION: UNI-PLANAR RADIOGRAPH SPECIMEN IMAGING The imaged specimen includes a biopsy clip. SUMMARY: Urgent Results: The results of the specimen radiograph were discussed with Dr. Parkinson in the OR on 01/09/2023. Melissa Camejo M.D., cp/hamzah:01/09/2023 13:52:43 copy to: Gerald LA, ph: [phone] Member Of Technical Staff(s): RT Seferino(R)(M), [facility] Multiple national specialty organizations have released breast cancer screening guidelines for women at average risk for developing breast cancer - guidelines that are based on both evidence and opinion, yet differ on when to start and how often to screen for breast cancer. With representation from Breast Imaging, Internal Medicine, Women's Health, Family Medicine, and Medical/Surgical Oncology, the [facility] has carefully reviewed the data and reached [...] their providers when to stop screening mammograms. Professor/Nurse Anesthetist: Hamzah Transcribe Date/Time: Jan 09 2023 1:45P Dictated by: MELISSA CAMEJO MD This examination was interpreted and the report reviewed and electronically signed by: MELISSA CAMEJO MD on Jan 09 2023 1:52PM EST [id number] [facility] NURSING PROGon 01-09-2023 NURSING PROG HNO ID: [id number] Author: Jada Morocho RN Service: Nursing Author [...] REFERRAL (RECOMMENDATION): None Electronically Signed By: Jada Morocho [facility] OPERATIVE NOon 01-09-2023 OPERATIVE NO HNO ID: [id number] Author: Micki Parkinson DO Service: General Surgery Author Type: Physician Type: Operative Report Filed: 01/13/2023 9:03 AM Note Text: [facility] - Operative Report SULEIMAN RAMSEY : 1945 AGE: 77. SEX: F PATIENT TYPE: A HOSP SVC: Surgical LOCATION: [id number] ATTENDING PHYSICIAN: UNRULY NUMBER: [id number] DATE OF SURGERY/PROCEDURE: 01/09/2023 INCISION/PROCEDURE START TIME: 12:42 PM INCISION CLOSE/PROCEDURE END TIME: 2:44 PM PREOPERATIVE DIAGNOSIS: Right breast cancer upper inner quadrant. POSTOPERATIVE DIAGNOSIS: Right breast cancer upper inner quadrant. SURGEON: Micki Parkinson D.O APPLIED SCIENCE AND TECHNOLOGIES DEAN: 1. Mabel Loredo DO - resident. 2. [...] mL. INTRAVE (more content not included)... Normal [facility] SURGICAL PATHOLOGYon 023 BLOCK FOR ADDITIONAL BIOMARKERS/MOLECULAR STUDIES Program Advisor tumor block: A18 [facility] Comment on above: Order Comment: Speci men Type: TISSUE SPECIMENOrdering Facility: [facility] Address: [address] [id number] Performed By: #### S ####[facility] LABCLIA [id number] [facility] [id number] [place] [address] [place] CASE REPORT [facility] Comment on above: Order Comment: Speci men Type: TISSUE SPECIMENOrdering Facility: [facility] Address: [address] [place], [place] [phone] Result Comment: Surg ical Pathology Report Case: [id number] Authorizing Provider: Micki Parkinson DO Collected: 01/09/2023 01:52 PM Ordering Location: [facility] Received: 01/09/2023 02:28 PM Operating Room Pathologist: Stephanie Pinto MD Specimens: A) - BREAST MASTECTOMY RIGHT B) - BREAST MARGIN RIGHT, Superior radial margin. C) - SENTINEL LYMPH NODE RIGHT, Right sentinel lymph node x 2. D) - BREAST MARGIN RIGHT, Right lateral skin margin. Performed By: #### S ####[facility] [id number] [address] CLINICAL HISTORY Normal [facility] Comment on above: Order Comment: Speci men Type: TISSUE SPECIMENOrdering Facility: [facility] Address: [address] [place] [address] Result Comment: Pre- op diagnosis: Malignant neoplasm of upper-inner quadrant of right breast in female, estrogen receptor positive (HCC) [C50.211, Z17.0] Performed By: #### S ####[facility] [id number] [address] FINAL DIAGNOSIS Normal [facility] Comment on above: Order Comment: Speci men Type: TISSUE SPECIMENOrdering Facility: [facility] Address: [address] [place] [address] Result Comment: A. R ight breast, mastectomy: [...] tissue. JR 01/12/2023 Performed By: #### S ####[facility] LABCLIA [id number] [address] FINAL PERFORMING LAB Normal [facility] Comment on above: Order Comment: Speci men Type: TISSUE SPECIMENOrdering Facility: [facility] Address: [address] [address] Result Comment: Diag nostic interpretation performed at [facility], [address] [address] CLIA# [id number] [employer]ial Vault Deliverer And Installer: Cam Loera M.D. Performed By: #### S ####[facility] LABCLIA [id number] [address] GROSS DESCRIPTION Normal [facility] Comment on above: Order Comment: Speci men Type: TISSUE SPECIMENOrdering Facility: [facility] Address: [address] [address] Result Comment: A. B REAST MASTECTOMY RIGHT [...] specimen radiograph is attached to the case. Program Advisor sections are submitted as follows: A1: Lesion [...] 2023 11:23 AM Gross examination performed at [facility], [address] [place] [address] B. BREAST MARGIN RIGHT Received in formalin [...] 2023 2:50 PM Gross examination performed at [facility], [address] [place] [address] C. SENTINEL LYMPH NODE RIGHT Received in formalin designated right sentinel lymph node #2 are 2 pink-london lymph nodes that measure 2 and 3.1 cm in greatest dimension. The lymph nodes are entirely submitted as follows: C1-C2. Single serially sectioned lymph node C3-C5. Single serially sectioned lymph node WE January 09, 2023 2:47 PM Gross examination performed at [facility], [address] [place] [address] D. BREAST MARGIN RIGHT Received fresh designated right lateral skin margin is a portion of skin and fibrofatty tissue that weighs 73 g and measures 12 x 10 x 1.2 cm. The skin surface is pink-london and wrinkled. The fibrofatty tissue is london-yellow rubbery and lobulated. The outer surface is inked black. The specimen is serially sectioned to reveal fibrous cut surfaces. Program Advisor sections are submitted in 4 cassettes. WE January 09, 2023 2:44 PM Gross examination performed at [facility], [address] [place] [address] Performed By: #### S ####[facility] LABCLIA [id number] [address] [id number] [address] [place] SYNOPTIC REPORT Normal [facility] Comment on above: Order Comment: Speci men Type: TISSUE SPECIMENOrdering Facility: [facility] Address: [address] [place] [address] Result Comment: INVA SIVE CARCINOMA OF THE BREAST: Resection INVASIVE CARCINOMA OF THE BREAST: EXCISION - All Specimens 8th Edition - Protocol posted: 08/02/2022 SPECIMEN Procedure: Total mastectomy Specimen Laterality: Right TUMOR Tumor Site: Upper outer quadrant Tumor Site: Upper inner quadrant Histologic Type: Invasive carcinoma of no special type (ductal) Histologic Grade (Dean Histologic Score): Glandular (Acinar) / Tubular Differentiation: [...] Examined (sentinel and non-sentinel): 2 Number of [place] Nodes Examined: 2 pTNM CLASSIFICATION (AJCC 8th [...] Negative (not amplified) Testing Performed on Comment(s): Program Advisor tumor block: A18 Performed By: #### S ####[facility] LABCLIA [id number] [place] [address] [place] CBC W Auto Differential pane l (Bld)on 01-05-2023 Basophils (Bld) [#/Vol] 0.09 10*3/uL <0.11 k/uL [facility] Basophils/100 WBC (Bld) 1.1 % [facility] Differential cell count method Nom (Bld) Auto [facility] Eosinophils (Bld) [#/Vol] 0.37 10*3/uL <0.46 k/uL [facility] Eosinophils/100 WBC (Bld) 4.3 % [facility] Erythrocyte distribution width (RBC) [Ratio] 13.1 % 11.5 - 15.0 % [facility] Hematocrit (Bld) [Volume fraction] 35.8 % Low 36.0 - 46.0 % [facility] Hemoglobin (Bld) [Mass/Vol] 11.9 g/dL 11.5 - 15.5 g/dL [facility] Immature granulocytes (Bld) [#/Vol] 0.03 10*3/uL <0.10 k/uL [facility] Immature granulocytes/100 WBC (Bld) 0.4 % [facility] Lymphocytes (Bld) [#/Vol] 2.33 10*3/uL 1.00 - 4.00 k/uL [facility] Lymphocytes/100 WBC (Bld) 27.2 % [facility] MCH (RBC) [Entitic mass] 30.1 pg 26.0 - 34.0 pg [facility] MCHC (RBC) [Mass/Vol] 33.2 g/dL 30.5 - 36.0 g/dL [facility] MCV (RBC) [Entitic vol] 90.6 fL 80.0 - 100.0 fL [facility] Monocytes (Bld) [#/Vol] 0.59 10*3/uL <0.87 k/uL [facility] Monocytes/100 WBC (Bld) 6.9 % [facility] Neutrophils (Bld) [#/Vol] 5.15 10*3/uL 1.45 - 7.50 k/uL [facility] Neutrophils/100 WBC (Bld) 60.1 % [facility] Nucleated RBC (Bld) [#/Vol] <0.01 k/uL [facility] Nucleated RBC/100 WBC (Bld) [Ratio] 0.0 /100 WBC [facility] Platelet mean volume (Bld) [Entitic vol] 10.0 fL 9.0 - 12.7 fL [facility] Platelets (Bld) [#/Vol] 252 10*3/uL 150 - 400 k/uL [facility] RBC (Bld) [#/Vol] 3.95 10*6/uL 3.90 - 5.20 m/uL [facility] WBC (Bld) [#/Vol] 8.56 10*3/uL 3.70 - 11.00 k/uL [facility] CNPNon 01-05-2023 CNPN Telephone (GENRajendraF) SULEIMAN RAMSEY ([id number]) 1945 F Date Time Provider Department 01/05/23 TAQUERIA GRACIA During your visit today, we recorded the following information about you: Taqueria Gracia, ROBBY 01/05/2023 10:40 AM Signed Left voicemail on [...] Encounter Status:Closed by TAQUERIA GRACIA on 01/05/23 Normal [facility] Comprehensive metabolic 2000 panelon 01-05-2023 Albumin [Mass/Vol] 4.2 g/dL 3.9 - 4.9 g/dL [facility] ALP [Catalytic activity/Vol] 80 U/L 34 - 123 U/L [facility] ALT [Catalytic activity/Vol] 19 U/L 7 - 38 U/L [facility] Anion gap [Moles/Vol] 14 mmol/L 9 - 18 mmol/L [facility] AST [Catalytic activity/Vol] 50 U/L High 13 - 35 U/L [facility] Bilirubin [Mass/Vol] 0.6 mg/dL 0.2 - 1 .3 mg/dL [facility] Calcium [Mass/Vol] 10.1 mg/dL 8.5 - 10. 2 mg/dL [facility] Chloride [Moles/Vol] 101 mmol/L 97 - 10 5 mmol/L [facility] CO2 [Moles/Vol] 25 mmol/L 22 - 30 mmol/L [facility] Creatinine [Mass/Vol] 0.99 mg/dL High 0.58 - 0.96 mg/dL [facility] Estimated Glomerular Filtration Rate 59 mL/min/1.73m Low >=60 mL/min/1.7 3m [facility] Glucose [Mass/Vol] 295 mg/dL High 74 - 99 mg/dL [facility] Potassium [Moles/Vol] 4.0 mmol/L 3.7 - 5.1 mmol/L [facility] Protein [Mass/Vol] 7.3 g/dL 6.3 - 8.0 g/dL [facility] Sodium [Moles/Vol] 140 mmol/L 136 - 144 mmol/L [facility] Urea nitrogen [Mass/Vol] 14 mg/dL 7 - 21 mg/dL [facility] ECG COMPLETEon 01-05-2023 Atrial Rate 70 BPM [facility] Calculated P [place] 38 degrees [facility] Calculated R [place] -31 degrees [facility] Calculated T [place] 94 degrees [facility] P-R Interval 244 ms [facility] QRS Duration 126 ms [facility] QT Interval 422 ms [facility] QTC Calculation (Bazett) 455 ms [facility] Ventricular Rate 70 BPM [facility] HbA1c (Bld)on 01-05-2023 Average glucose Estimated from glycated hemoglobin (Bld) [Mass/Vol] 177 mg/dL [facility] HbA1c (Bld) [Mass fraction] 7.8 % High 4.3 - 5.6 % [facility] CNPNon 12-26-2022 CNPN Telephone (GENSF) SULEIMAN RAMSEY ([id number]) 1945 F Date Time Provider Department 12/26/22 MICKI PARKINSON During your visit today, we recorded the following information about you: Brandy Valenzuela 12/26/2022 12:55 PM Addendum Spoke to patient's daughter Gama , informed patient surgery date and appointments related to her procedure with Dr. Parkinson on 01/09 . Counter Tacker note with recommendations needed before her mother's surgery. Brandy Valenzuela 12/26/2022 12:53 PM Signed Spoke to patient. Informed surgery information and appointments . And notes from her superintendent division. Allergies As of Date: 12/26/2022 (No Known [...] Encounter Status:Closed by BRANDY VALENZUELA on 12/26/22 [facility] CNOVjacinda 12-22-2022 CNOV Office Visit ([facility] ) SULEIMAN RAMSEY ([id number]) 1945 F Date Time Provider Department 12/22/22 2:00 PM SAMUEL DINH [facility] During your visit today, we [...] RIGHT breast cancer. Diagnosis was made at [facility] by means of ultrasound-guided core biopsy of Right breast on 11/15/2022. The pathology report showed Infiltrating Ductal Carcinoma Grade 2, ER positive, NE positive, HER2 non-amplified (FISH). She has a [...] venlafaxine XR (more content not included)... Normal [facility] CNOV Office Visit (GENSF) SULEIMAN RAMSEY ([id number]) 1945 F Date Time Provider Department 12/22/22 [...] old White female who presents to the [facility] at the request of for an opinion regarding a new diagnosis of RIGHT breast cancer. Patient states the palpable breast mass was first noted in 6 months ago on a self breast exam. She saw her superintendent division who also palpated the mass. She was [...] cm in size. Diagnosis was made at [facility] by means of ultrasound-guided core biopsy of Right breast on 11/15/2022. The pathology report showed Infiltrating Ductal Carcinoma Grade 2, ER positive, NE positive, HER2 non-amplified (FISH). Metastatic workup with [...] CURRENT MEDICATIO (more content not included)... Normal [facility] DBT Breast - right diagnosti c for implanton 12-22-2022 * * *Final Report* * * DATE OF EXAM: Dec 22 2022 9:09AM SSW 0629 - [facility] DIAG W JOVAN RT / PROCEDURE REASON: multiple diagnoses * * * * Physician Interpretation * * * * RESULT: #[id number] - [facility] DIAG W JOVAN RT #[id number] - [facility] BREAST LTD RT UNILATERAL RIGHT DIGITAL DIAGNOSTIC [...] in the breast. DIVISION OF RADIOLOGY Provider, [facility] - 12/22/2022 * * *Final Report* * * DATE OF EXAM: Dec 22 2022 9:09AM SSW [id number] - [facility] DIAG W JOVAN RT / PROCEDURE REASON: multiple diagnoses * * * * Physician Interpretation * * * * RESULT: #[id number] - [facility] DIAG W JOVAN RT #[id number] - [facility] US BREAST LTD RT UNILATERAL RIGHT [...] how often to (more content not included)... [facility] Radiology Study observation (narrative) [facility] No Panel Informationon 12-22 IMPRESSION: BENIGN F [...] Health, Family Medicine, and Medical/Surgical Oncology, the [facility] has carefully reviewed the data and reached [...] their providers when to stop screening mammograms. Member Of Technical Staff(s): RT Shaan(R)(M), Formerly [facility], 1928–1983; Ashley Seo, RT(R)(M), Formerly [facility], 1928–1983 OVERALL STUDY BIRADS: 5 Highly suggestive of malignancy - Appropriate action should be taken Professor/Nurse Anesthetist: Hamzah Transcribe Date/Time: Dec 22 2022 8:37A Dictated by: KALYAN KEATING MD This examination was interpreted and the report reviewed and electronically signed by: KALYAN KEATING MD on Dec 22 2022 11:22AM [facility] DIVISION OF RADIOLOGY No Panel InformationOrdered By: [facility] Provider on 12-22-2022 [facility] US Breast - right limitedon 12-22-2022 * * *Final Report* * * DATE OF EXAM: Dec 22 2022 10:10AM W 0594 - [facility] US BREAST LTD RT / PROCEDURE REASON: multiple diagnoses * * * * Physician Interpretation * * * * RESULT: #[id number] - [facility] DIAG W JOVAN RT #[id number] - [facility] US BREAST LTD RT UNILATERAL RIGHT [...] in the breast. DIVISION OF RADIOLOGY Provider, Ken Ortiz [facility] - 12/22/2022 * * *Final Report* * * DATE OF EXAM: Dec 22 2022 10:10AM SSW 0594 - [facility] [employer] BREAST [employer] RT / PROCEDURE REASON: multiple diagnoses * * * * Physician Interpretation * * * * RESULT: #[id number] - [facility] DIAG W JOVAN RT #[id number] - [facility] [employer] BREAST [employer] RT UNILATERAL RIGHT DIGITAL DIAGNOSTIC MAMMOGRAM TOMOSYNTHESIS [...] and how often (more content not included)... [facility] Radiology Study observation (narrative) [facility] No Panel InformationOrdered By: Cong Morrison on 12-05-2022 Free Lambda Light Chains, Quant 21.5 mg/L 5.7-26.3 [facility] Serum immunoglobulin kappa l ight chains/immunoglobulin lambda light chains mass ratioOrdered By: Cong Morrison on 12-05-2022 Immunoglobulin light chains.kappa/Immunogl obulin light chains.lambda (S) [Mass ratio] 2.40 0.26-1.65 [facility] Comment on above: Performed at: [address] Director: Tramaine Palacios PhD, Phone: [phone] Serum or plasma folate measu rement (mass/volume)Ordered By: Cong Morrison on 12-05-2022 Folate [Mass/Vol] 30.60 ng/mL 3.1-55.4 [facility] Serum or plasma immunoglobul in kappa light chains measurement (mass/volume)Ordered By: Cong Morrison on 12-05-2022 Immunoglobulin light chains.kappa [Mass/Vol] 51.6 mg/L 3.3-19.4 [facility] Absolute lymphocyte countOrd ered By: Alejandro Morales on 2022 Lymphocytes Auto (Unsp spec) [#/Vol] 3.53 10*3/uL 0.83-4.51 [facility] Basophil percentageOrdered B y: Alejandro Morales on 2022 Basophils/100 WBC (Bld) 0.8 % 0-1 [facility] Bilirubin [Mass/Vol] 0.50 mg/dL 0.20-1.00 [facility] Comment on above: For patients on eltr ombopag therapy, use of Dimension Barton TBIL is not recommended. Chloride [Moles/Vol] 105 mmol/L 98-107 [facility] Eosinophils/100 WBC (Bld) 4.6 % 0-5 [facility] Glucose [Mass/Vol] 285 mg/dL 74-106 [facility] Comment on above: Glucose result great er than or equal to 200 mg/dLsuggests DIABETES MELLITUS per A.D.A. criteria. Neutrophils (Bld) [#/Vol] 7.1 10*3/uL 2.0-7.7 [facility] Neutrophils/100 WBC (Bld) 58.6 % 47-70 [facility] Potassium [Moles/Vol] 4.3 mmol/L 3.5-5.1 [facility] Protein [Mass/Vol] 8.0 g/dL 6.4-8.2 [facility] Sodium [Moles/Vol] 135 mmol/L 136-145 [facility] WBC (Bld) [#/Vol] 12.1 10*3/uL 4.4-11.0 [facility] Blood erythrocytes count (nu mber/volume)Ordered By: Alejandro Morales on 2022 RBC (Bld) [#/Vol] 4.08 10*6/uL 4.2-5.4 [facility] Blood hemoglobin measurement (mass/volume)Ordered By: Alejandro Morales on 2022 Hemoglobin (Bld) [Mass/Vol] 12.1 g/dL 12.0-15.0 [facility] Blood lymphocytes/100 leukoc ytesOrdered By: Alejandro oMrales on 2022 Lymphocytes/100 WBC (Bld) 29.2 % 19-41 [facility] Blood monocytes/100 leukocyt esOrdered By: Alejandro Morales on 2022 Monocytes/100 WBC (Bld) 6.6 % 0-10 [facility] Blood platelet mean volumeOr dered By: Alejandro Morales on 2022 Platelet mean volume (Bld) [Entitic vol] 10.8 fL 6.2-12.0 [facility] Determination of erythrocyte mean corpuscular volume (MCV)Ordered By: Alejandro Morales on 2022 MCV (RBC) [Entitic vol] 92.4 fL 81-99 [facility] Hematocrit Auto (Bld) [Volum e fraction]Ordered By: [facility] Andrew on 2022 Hematocrit (Bld) [Volume fraction] 37.7 % 37-47 [facility] Laboratory - Chemistry and C hemistry - challengeOrdered By: [facility] ALP [Catalytic activity/Vol] 103 U/L 45-117 [facility] ALT [Catalytic activity/Vol] 26 U/L 13-56 [facility] CO2 [Moles/Vol] 23.0 mmol/L 21.0-32.0 [facility] Globulin (S) [Mass/Vol] 4.5 g/dL 2.2-4.2 [facility] Urea nitrogen/Creatinine [Mass ratio] 15.2 mg/mg 10-20 [facility] Laboratory - Hematology and Cell countsOrdered By: [facility] on 2022 Erythrocyte distribution width (RBC) [Entitic vol] 45.7 fL 35.1-43.9 [facility] Erythrocyte distribution width (RBC) [Ratio] 13.6 % 11.6-14.6 [facility] Immature granulocytes/100 WBC (Bld) 0.200 % 0.0-0.9 [facility] Comment on above: IG% - Immature Granu locytes (promyelocytes, myelocytes and metamyelocytes) > 1% indicates that a LEFT SHIFT is Present. MCH (RBC) [Entitic mass] 29.7 pg 27.0-32.0 [facility] Nucleated RBC/100 WBC (Bld) [Ratio] 0 % 0-5 [facility] MCHC Auto (RBC) [Mass/Vol]Or dered By: [facility] Andrew on 2022 MCHC (RBC) [Mass/Vol] 32.1 g/dL 32-36 [facility] No Panel InformationOrdered By: [facility]atie oMrales on 2022 Estimated GFR (MDRD) Amer 70 mL/min >60 [facility] Comment on above: GFR Calc Estimated GFR (MDRD) Non-Af Amer 58 mL/min >60 [facility] Comment on above: Non- GFR Calc Platelets bldOrdered By: Subhash carbajal Andrew on 2022 Platelets (Bld) [#/Vol] 261 10*3/uL 150-450 [facility] Serum or plasma albumin wale urement (mass/volume)Ordered By: Alejandro Andrew on 2022 Albumin [Mass/Vol] 3.5 g/dL 3.2-5.0 [facility] Serum or plasma albumin/glob ulin mass ratioOrdered By: [facility] Andrew on 2022 Albumin/Globulin [Mass ratio] 0.8 {ratio} 0.9-2.4 [facility] Serum or plasma calcium wale urement (mass/volume)Ordered By: Alejandro Andrew on 2022 Calcium [Mass/Vol] 10.8 mg/dL 8.5-10.1 [facility] Serum or plasma creatinine m easurement (mass/volume)Ordered By: Codykatie Morales on 2022 Creatinine [Mass/Vol] 0.98 mg/dL 0.55-1.02 [facility] Comment on above: The validity of the calculated GFR & GFRAA in patients over 70 years has not been determined. Clinical correlation is essential. Serum or plasma urea nitroge n measurement (mass/volume)Ordered By: Codykatie Morales on 2022 Urea nitrogen [Mass/Vol] 15 mg/dL 7-18 [facility] Thin prep Papanicolaou smear with manual screeningOrdered By: Alejandro Morales on 2022 Thin prep Papanicolaou smear with manual screening 43 U/L 15-37 [facility] Thin prep Papanicolaou smear with manual screening 7 5-15 [facility] Absolute lymphocyte countOrd ered By: Dr. Bosch on 10-30-2022 Lymphocytes Auto (Unsp spec) [#/Vol] 2.64 10*3/uL 0.83-4.51 [facility] Basophil percentageOrdered B y: Dr. Bosch on 10-30-2022 Basophil percentage 2.7 mg/dL 2.5-4.9 [facility] Basophils/100 WBC (Bld) 1.0 % 0-1 [facility] Bilirubin [Mass/Vol] 0.40 mg/dL 0.20-1.00 [facility] Comment on above: For patients on eltr ombopag therapy, use of Dimension [place] TBIL is not recommended. Chloride [Moles/Vol] 107 mmol/L 98-107 [facility] Cholesterol [Mass/Vol] 111 mg/dL <200 [facility] Comment on above: <200 mg/dL Desirable 200-240 mg/dL Borderline >240 mg/dL High Risk Eosinophils/100 WBC (Bld) 3.7 % 0-5 [facility] Glucose [Mass/Vol] 176 mg/dL 74-106 [facility] Comment on above: Fasting Glucose resu lt greater than or equal to 126 mg/dL suggests DIABETES MELLITUS per A.D.A. criteria. Neutrophils (Bld) [#/Vol] 6.0 10*3/uL 2.0-7.7 [facility] Neutrophils/100 WBC (Bld) 60.6 % 47-70 [facility] Potassium [Moles/Vol] 4.0 mmol/L 3.5-5.1 [facility] Protein [Mass/Vol] 7.6 g/dL 6.4-8.2 [facility] Sodium [Moles/Vol] 138 mmol/L 136-145 [facility] Triglyceride [Mass/Vol] 150 mg/dL <199 [facility] Comment on above: The drugs N-Acetylcy steine and Metamizole may falsely depress this assay.Serum Triglycerides Reference Interval Normal <150 mg/dL Borderline high 150 - 199 mg/dL High 200 - 499 mg/dL Very High > or = 500 mg/dL WBC (Bld) [#/Vol] 9.9 10*3/uL 4.4-11.0 [facility] Blood erythrocytes count (nu mber/volume)Ordered By: Dr. Bosch on 10-30-2022 RBC (Bld) [#/Vol] 3.98 10*6/uL 4.2-5.4 [facility] Blood hemoglobin measurement (mass/volume)Ordered By: Dr. Bosch on 10-30-2022 Hemoglobin (Bld) [Mass/Vol] 11.8 g/dL 12.0-15.0 [facility] Blood lymphocytes/100 leukoc ytesOrdered By: Dr. Bosch on 10-30-2022 Lymphocytes/100 WBC (Bld) 26.8 % 19-41 [facility] Blood monocytes/100 leukocyt esOrdered By: Dr. Bosch on 10-30-2022 Monocytes/100 WBC (Bld) 7.6 % 0-10 [facility] Blood platelet mean volumeOr dered By: Dr. Bosch on 10-30-2022 Platelet mean volume (Bld) [Entitic vol] 11.0 fL 6.2-12.0 [facility] Determination of erythrocyte mean corpuscular volume (MCV)Ordered By: Dr. Bosch on 10-30-2022 MCV (RBC) [Entitic vol] 91.7 fL 81-99 [facility] Hematocrit Auto (Bld) [Volum e fraction]Ordered By: Dr. Bosch on 10-30-2022 Hematocrit (Bld) [Volume fraction] 36.5 % 37-47 [facility] Laboratory - Chemistry and C hemistry - challengeOrdered By: Dr. Bosch on 10-30-2022 ALP [Catalytic activity/Vol] 96 U/L 45-117 [facility] ALT [Catalytic activity/Vol] 20 U/L 13-56 [facility] CO2 [Moles/Vol] 24.0 mmol/L 21.0-32.0 [facility] Cobalamin (Vitamin B12) [Mass/Vol] 1334 pg/mL 211-911 [facility] Free T4 [Mass/Vol] 1.55 ng/dL 0.76-1.46 [facility] Globulin (S) [Mass/Vol] 4.1 g/dL 2.2-4.2 [facility] Urea nitrogen/Creatinine [Mass ratio] 23.3 mg/mg 10-20 [facility] Laboratory - Hematology and Cell countsOrdered By: Dr. Bosch on 10-30-2022 Erythrocyte distribution width (RBC) [Entitic vol] 47.6 fL 35.1-43.9 [facility] Erythrocyte distribution width (RBC) [Ratio] 14.3 % 11.6-14.6 [facility] Immature granulocytes/100 WBC (Bld) 0.300 % 0.0-0.9 [facility] Comment on above: IG% - Immature Granu locytes (promyelocytes, myelocytes and metamyelocytes) > 1% indicates that a LEFT SHIFT is Present. MCH (RBC) [Entitic mass] 29.6 pg 27.0-32.0 [facility] Nucleated RBC/100 WBC (Bld) [Ratio] 0 % 0-5 [facility] MCHC Auto (RBC) [Mass/Vol]Or dered By: Dr. Bosch on 10-30-2022 MCHC (RBC) [Mass/Vol] 32.3 g/dL 32-36 [facility] No Panel InformationOrdered By: Dr. Villa on 10-30-2022 Ionized Calcium 5.45 mg/dL 4.36-5.20 [facility] No Panel InformationOrdered By: Dr. Bosch on 10-30-2022 Parathyroid Hormone (Intact) 52.3 pg/mL 18.4-80.1 [facility] Estimated GFR (MDRD) Amer 93 mL/min >60 [facility] Comment on above: GFR Calc Estimated GFR (MDRD) Non-Af Amer 77 mL/min >60 [facility] Comment on above: Non- GFR Calc Free Triiodothyronine (T3) pg/dL 2.5 pg/mL 2.18-3.98 [facility] Thyroid Stimulating Hormone (TSH) 0.41 uIU/mL 0.358-3.74 [facility] Urine Microalbumin/Creatini ne Ratio 83.2 mg/g CRE <30 [facility] Vitamin D 25-Hydroxy 53.4 ng/mL [facility] Comment on above: Vitamin D 25(OH) Sta tus Range Deficiency <20 ng/mL (50nmol/L) Insufficiency 20 - 30 ng/mL (50 - 75 nmol/L) Sufficiency 30 - 100 ng/mL (75 - 250 nmol/L) Toxicity >100 ng/mL (>250 nmol/L) No Panel InformationOrdered By: Benny Bosch on 10-30-2022 Vitamin B6 Level 8.6 ug/L 3.4-65.2 [facility] Comment on above: Deficiency: <3.4 Mar ginal: 3.4 - 5.1 Adequate: >5.1 Whole Blood Vitamin B1 Level 228.8 nmol/L 66.5-200.0 [facility] Comment on above: Performed at: [address] [id number] Director: Yogesh Ramos MD, Phone: [phone] Platelets bldOrdered By: Dr. Bosch on 10-30-2022 Platelets (Bld) [#/Vol] 260 10*3/uL 150-450 [facility] Serum or plasma albumin wale urement (mass/volume)Ordered By: Dr. Bosch on 10-30-2022 Albumin [Mass/Vol] 3.5 g/dL 3.2-5.0 [facility] Serum or plasma albumin/glob ulin mass ratioOrdered By: Dr. Bosch on 10-30-2022 Albumin/Globulin [Mass ratio] 0.9 {ratio} 0.9-2.4 [facility] Serum or plasma calcium wale urement (mass/volume)Ordered By: Dr. Bosch on 10-30-2022 Calcium [Mass/Vol] 10.4 mg/dL 8.5-10.1 [facility] Serum or plasma cholesterol in HDL measurement (mass/volume)Ordered By: Dr. Bosch on 10-30-2022 Cholesterol in HDL [Mass/Vol] 38 mg/dL >40 [facility] Comment on above: The drugs N-Acetylcy steine and Metamizole may falsely depress this assay. Reference Range HDL <40 mg/dL Low HDL Cholesterol HDL >or= 60 mg/dL High HDL Cholesterol Serum or plasma cholesterol in VLDL measurement (mass/volume)Ordered By: Dr. Bosch on 10-30-2022 Cholesterol in VLDL [Mass/Vol] 30 mg/dL 5-40 [facility] Serum or plasma creatinine m easurement (mass/volume)Ordered By: Dr. Bosch on 10-30-2022 Creatinine [Mass/Vol] 0.77 mg/dL 0.55-1.02 [facility] Comment on above: The validity of the calculated GFR & GFRAA in patients over 70 years has not been determined. Clinical correlation is essential. Serum or plasma low density lipoprotein (LDL) cholesterol measurement (mass/volume)Ordered By: Dr. Bosch on 10-30-2022 Cholesterol in LDL [Mass/Vol] 43 mg/dL 0-130 [facility] Serum or plasma urea nitroge n measurement (mass/volume)Ordered By: Dr. Bosch on 10-30-2022 Urea nitrogen [Mass/Vol] 18 mg/dL 7-18 [facility] Thin prep Papanicolaou smear with manual screeningOrdered By: Dr. Bosch on 10-30-2022 Thin prep Papanicolaou smear with manual screening 35 U/L 15-37 [facility] Thin prep Papanicolaou smear with manual screening 7 5-15 [facility] Thin prep Papanicolaou smear with manual screening 59.5 mg/L NO RANGE EST. [facility] Urine creatinine measurement (mass/volume)Ordered By: Dr. Bosch on 10-30-2022 Creatinine (U) [Mass/Vol] 71.50 mg/dL NO RANGE EST. [facility] Whole blood hemoglobin A1c/t otal hemoglobin ratio (mass fraction)Ordered By: Dr. Bosch on 10-30-2022 HbA1c (Bld) [Mass fraction] 7.0 % 3.8-5.6 [facility] Comment on above: Normal < 5.7 % Predi abetic 5.7 - 6.4 % Diabetic >or= 6.5 % Please note range changes. Culture, urineOrdered By: Margaret Livingston on 09-20-2022 Bacteria identified Cx Nom (U) Mixed Gram Pos & Gram Neg Org [facility] Basophil percentageOrdered B y: Benny Livingston on 09-17-2022 Basophil percentage 0 SEEN /hpf 0-5 [facility] Bilirubin Test strip Ql (U)O rdered By: Benny Livingston on 09-17-2022 Bilirubin Ql (U) Negative Negative [facility] Culture, urineOrdered By: Margaret Livingston on 09-17-2022 Bacteria identified Cx Nom (U) Mixed Gram Pos & Gram Neg Org [facility] Ketones Test strip Ql (U)Ord ered By: Benny Livingston on 09-17-2022 Ketones Ql (U) Negative Negative [facility] Laboratory - Chemistry and C hemistry - challengeon 09-17-2022 Bilirubin Ql (U) Negative [facility] Glucose Ql (U) Negative [facility] Ketones Ql (U) Negative [facility] pH (U) 6.0 [pH] [facility] Specific gravity (U) [Rel density] 1.015 [facility] Urobilinogen (U) [Mass/Vol] Negative [facility] Laboratory - Hematology and Cell countson 09-17-2022 Hemoglobin Ql (U) Negative [facility] Laboratory - Specimen inform ationon 09-17-2022 Clarity (U) Clear [facility] Color (U) YELLOW [facility] Laboratory - Urinalysison Nitrite Ql (U) Negative [facility] Protein Ql (U) Negative [facility] Mucus LM Ql (Urine sed)Order ed By: Benny Livingston on 09-17-2022 Mucus Ql (Urine sed) 0 SEEN /hpf [facility] Nitrite Test strip Ql (U)Ord ered By: Benny Livingston on 09-17-2022 Nitrite Ql (U) Negative Negative [facility] No Panel Informationon 09-17 Urine Leukocytes Negatve [facility] Urine Non-Hemolyzed Blood Negative [facility] Protein Test strip Ql (U)Ord ered By: Benny Livingston on 09-17-2022 Protein Ql (U) 15 mg/dl Negative [facility] Squamous epithelial cells de tection in urine sediment by light microscopyOrdered By: Benny Livingston on 09-17-2022 Epithelial cells.squamous LM Ql (Urine sed) 0 SEEN /hpf 5-10 [facility] Urine blood detectionOrdered By: Benny Livingston on 09-17-2022 RBC Ql (U) Negative Negative [facility] RBC Ql (U) 0 SEEN /hpf 0-5 [facility] Urine clarityOrdered By: Shmuel Livingston on 09-17-2022 Clarity (U) Sl. Cloudy Clear [facility] Urine color determinationOrd ered By: Benny Livingston on 09-17-2022 Color (U) Yellow Yellow [facility] Urine glucose detectionOrder ed By: Benny Livingston on 09-17-2022 Glucose Ql (U) Normal mg/dl Normal [facility] Urine leukocyte esterase det ection by dipstickOrdered By: Benny Livingston on 09-17-2022 Leukocyte esterase Test strip Ql (U) Negative Negative [facility] Urine pHOrdered By: Benny lizama on 09-17-2022 pH (U) 6.0 [pH] 5.0 - 8.0 [facility] Urine sediment bacteria coun t by microscopy (number/high power field)Ordered By: Benny Livingston on 09-17-2022 Bacteria LM.HPF (Urine sed) [#/Area] 0 /[HPF] None Seen [facility] Urine specific gravity measu rementOrdered By: Benny Livingston on 09-17-2022 Specific gravity (U) [Rel density] 1.015 1.002-1.03 0 [facility] Urobilinogen Auto test strip Ql (U)Ordered By: Benny Livingston on 09-17-2022 Urobilinogen Ql (U) Normal mg/dl Normal [facility] Absolute lymphocyte countOrd ered By: Dr. Alvarez on 08-17-2022 Lymphocytes Auto (Unsp spec) [#/Vol] 3.42 10*3/uL 0.83-4.51 [facility] Basophil percentageOrdered B y: Dr. Alvarez on 08-17-2022 Basophil percentage 0 SEEN /hpf 0-5 [facility] Basophils/100 WBC (Bld) 1.1 % 0-1 [facility] Bilirubin [Mass/Vol] 0.90 mg/dL 0.20-1.00 [facility] Comment on above: For patients on eltr ombopag therapy, use of Dimension [place] TBIL is not recommended. Chloride [Moles/Vol] 104 mmol/L 98-107 [facility] Eosinophils/100 WBC (Bld) 2.4 % 0-5 [facility] Glucose [Mass/Vol] 153 mg/dL 74-106 [facility] Comment on above: Fasting Glucose resu lt greater than or equal to 126 mg/dL suggests DIABETES MELLITUS per A.D.A. criteria. Neutrophils (Bld) [#/Vol] 6.5 10*3/uL 2.0-7.7 [facility] Neutrophils/100 WBC (Bld) 58.1 % 47-70 [facility] Potassium [Moles/Vol] 3.8 mmol/L 3.5-5.1 [facility] Protein [Mass/Vol] 8.5 g/dL 6.4-8.2 [facility] Sodium [Moles/Vol] 135 mmol/L 136-145 [facility] WBC (Bld) [#/Vol] 11.2 10*3/uL 4.4-11.0 [facility] Bilirubin Test strip Ql (U)O rdered By: Dr. Alvarez on 08-17-2022 Bilirubin Ql (U) Negative Negative [facility] Blood erythrocytes count (nu mber/volume)Ordered By: Dr. Alvarez on 08-17-2022 RBC (Bld) [#/Vol] 4.56 10*6/uL 4.2-5.4 [facility] Blood hemoglobin measurement (mass/volume)Ordered By: Dr. Alvarez on 08-17-2022 Hemoglobin (Bld) [Mass/Vol] 13.1 g/dL 12.0-15.0 [facility] Blood lymphocytes/100 leukoc ytesOrdered By: Dr. Alvarez on 08-17-2022 Lymphocytes/100 WBC (Bld) 30.6 % 19-41 [facility] Blood monocytes/100 leukocyt esOrdered By: Dr. Alvarez on 08-17-2022 Monocytes/100 WBC (Bld) 7.5 % 0-10 [facility] Blood platelet mean volumeOr dered By: Dr. Alvarez on 08-17-2022 Platelet mean volume (Bld) [Entitic vol] 10.2 fL 6.2-12.0 [facility] Determination of erythrocyte mean corpuscular volume (MCV)Ordered By: Dr. Alvarez on 08-17-2022 MCV (RBC) [Entitic vol] 89.3 fL 81-99 [facility] Hematocrit Auto (Bld) [Volum e fraction]Ordered By: Dr. Alvarez on 08-17-2022 Hematocrit (Bld) [Volume fraction] 40.7 % 37-47 [facility] Ketones Test strip Ql (U)Ord ered By: Dr. Alvarez on 08-17-2022 Ketones Ql (U) Negative Negative [facility] Laboratory - Chemistry and C hemistry - challengeOrdered By: Dr. Alvarez on 08-17-2022 ALP [Catalytic activity/Vol] 81 U/L 45-117 [facility] ALT [Catalytic activity/Vol] 26 U/L 13-56 [facility] CO2 [Moles/Vol] 23.0 mmol/L 21.0-32.0 [facility] Globulin (S) [Mass/Vol] 4.6 g/dL 2.2-4.2 [facility] Lipase [Catalytic activity/Vol] 144 U/L 73-393 [facility] Urea nitrogen/Creatinine [Mass ratio] 18.9 mg/mg 10-20 [facility] Laboratory - Hematology and Cell countsOrdered By: Dr. Alvarez on 08-17-2022 Erythrocyte distribution width (RBC) [Entitic vol] 44.8 fL 35.1-43.9 [facility] [facility] Erythrocyte distribution width (RBC) [Ratio] 13.9 % 11.6-14.6 [facility] Immature granulocytes/100 WBC (Bld) 0.300 % 0.0-0.9 [facility] Comment on above: IG% - Immature Granu locytes (promyelocytes, myelocytes and metamyelocytes) > 1% indicates that a LEFT SHIFT is Present. MCH (RBC) [Entitic mass] 28.7 pg 27.0-32.0 [facility] Nucleated RBC/100 WBC (Bld) [Ratio] 0 % 0-5 [facility] MCHC Auto (RBC) [Mass/Vol]Or dered By: Dr. Alvarez on 08-17-2022 MCHC (RBC) [Mass/Vol] 32.2 g/dL 32-36 [facility] Mucus LM Ql (Urine sed)Order ed By: Dr. Alvarez on 08-17-2022 Mucus Ql (Urine sed) 0 SEEN /hpf [facility] Nitrite Test strip Ql (U)Ord ered By: Dr. Alvarez on 08-17-2022 Nitrite Ql (U) Negative Negative [facility] No Panel InformationOrdered By: Dr. Alvarez on 08-17-2022 Estimated Creatinine Clearance Calc 39.59 ml/min [facility] Estimated GFR (MDRD) Amer 107 mL/min >60 [facility] Comment on above: GFR Calc Estimated GFR (MDRD) Non-Af Amer 88 mL/min >60 [facility] Comment on above: Non- GFR Calc Platelets bldOrdered By: Dr. Alvarez on 08-17-2022 Platelets (Bld) [#/Vol] 362 10*3/uL 150-450 [facility] Protein Test strip Ql (U)Ord ered By: Dr. Alvarez on 08-17-2022 Protein Ql (U) 15 mg/dl Negative [facility] Serum or plasma albumin wale urement (mass/volume)Ordered By: Dr. Alvarez on 08-17-2022 Albumin [Mass/Vol] 3.9 g/dL 3.2-5.0 [facility] Serum or plasma albumin/glob ulin mass ratioOrdered By: Dr. Alvarez on 08-17-2022 Albumin/Globulin [Mass ratio] 0.8 {ratio} 0.9-2.4 [facility] Serum or plasma calcium wale urement (mass/volume)Ordered By: Dr. Alvarez on 08-17-2022 Calcium [Mass/Vol] 10.7 mg/dL 8.5-10.1 [facility] Serum or plasma creatinine m easurement (mass/volume)Ordered By: Dr. Alvarez on 08-17-2022 Creatinine [Mass/Vol] 0.69 mg/dL 0.55-1.02 [facility] Comment on above: The validity of the calculated GFR & GFRAA in patients over 70 years has not been determined. Clinical correlation is essential. Serum or plasma urea nitroge n measurement (mass/volume)Ordered By: Dr. Alvarez on 08-17-2022 Urea nitrogen [Mass/Vol] 13 mg/dL 7-18 [facility] Squamous epithelial cells de tection in urine sediment by light microscopyOrdered By: Dr. Alvarez on 08-17-2022 Epithelial cells.squamous LM Ql (Urine sed) 0 SEEN /hpf 5-10 [facility] Thin prep Papanicolaou smear with manual screeningOrdered By: Dr. Alvarez on 08-17-2022 Thin prep Papanicolaou smear with manual screening 67 U/L 15-37 [facility] Thin prep Papanicolaou smear with manual screening 8 5-15 [facility] Urine blood detectionOrdered By: Dr. Alvarez on 08-17-2022 RBC Ql (U) Negative Negative [facility] RBC Ql (U) 0 SEEN /hpf 0-5 [facility] Urine clarityOrdered By: Dr. Alvarez on 08-17-2022 Clarity (U) Clear Clear [facility] Urine color determinationOrd ered By: Dr. Alvarez on 08-17-2022 Color (U) Yellow Yellow [facility] Urine glucose detectionOrder ed By: Dr. Alvarez on 08-17-2022 Glucose Ql (U) Normal mg/dl Normal [facility] Urine leukocyte esterase det ection by dipstickOrdered By: Dr. Alvarez on 08-17-2022 Leukocyte esterase Test strip Ql (U) Negative Negative [facility] Urine pHOrdered By: Dr. Shaw melton on 08-17-2022 pH (U) 5.0 [pH] 5.0 - 8.0 [facility] Urine sediment bacteria coun t by microscopy (number/high power field)Ordered By: Dr. Alvarez on 08-17-2022 Bacteria LM.HPF (Urine sed) [#/Area] 0 /[HPF] None Seen [facility] Urine specific gravity measu rementOrdered By: Dr. Alvarez on 08-17-2022 Specific gravity (U) [Rel density] 1.010 1.002-1.03 0 [facility] Urobilinogen Auto test strip Ql (U)Ordered By: Dr. Alvarez on 08-17-2022 Urobilinogen Ql (U) Normal mg/dl Normal [facility] Erythrocyte sedimentation ra teOrdered By: Dr. Bosch on 07-25-2022 ESR (Bld) [Velocity] 30 mm/h 0-30 [facility] Basophil percentageOrdered B y: Dr. Villa on 06-28-2022 Basophil percentage 2.2 mg/dL 2.5-4.9 [facility] Bilirubin [Mass/Vol] 0.50 mg/dL 0.20-1.00 [facility] Comment on above: For patients on eltr ombopag therapy, use of Dimension [place] TBIL is not recommended. Chloride [Moles/Vol] 105 mmol/L 98-107 [facility] Cholesterol [Mass/Vol] 113 mg/dL <200 [facility] Comment on above: <200 mg/dL Desirable 200-240 mg/dL Borderline >240 mg/dL High Risk Glucose [Mass/Vol] 222 mg/dL 74-106 [facility] Comment on above: Glucose result great er than or equal to 200 mg/dLsuggests DIABETES MELLITUS per A.D.A. criteria. Potassium [Moles/Vol] 3.9 mmol/L 3.5-5.1 [facility] Protein [Mass/Vol] 7.2 g/dL 6.4-8.2 [facility] Sodium [Moles/Vol] 139 mmol/L 136-145 [facility] Triglyceride [Mass/Vol] 287 mg/dL <199 [facility] Comment on above: The drugs N-Acetylcy steine and Metamizole may falsely depress this assay.Serum Triglycerides Reference Interval Normal <150 mg/dL Borderline high 150 - 199 mg/dL High 200 - 499 mg/dL Very High > or = 500 mg/dL Laboratory - Chemistry and C hemistry - challengeOrdered By: Dr. Villa on 06-28-2022 ALP [Catalytic activity/Vol] 100 U/L 45-117 [facility] ALT [Catalytic activity/Vol] 18 U/L 13-56 [facility] CO2 [Moles/Vol] 25.0 mmol/L 21.0-32.0 [facility] Free T4 [Mass/Vol] 1.38 ng/dL 0.76-1.46 [facility] Globulin (S) [Mass/Vol] 3.9 g/dL 2.2-4.2 [facility] Urea nitrogen/Creatinine [Mass ratio] 26.8 mg/mg 10-20 [facility] No Panel InformationOrdered By: Dr. Villa on 06-28-2022 Estimated GFR (MDRD) Amer 92 mL/min >60 [facility] Comment on above: GFR Calc Estimated GFR (MDRD) Non-Af Amer 76 mL/min >60 [facility] Comment on above: Non- GFR Calc Ionized Calcium 5.2 mg/dL 4.5-5.6 [facility] Comment on above: Performed at: [address] [id number] Director: Tramaine Palacios PhD, Phone: [phone] Parathyroid Hormone (Intact) 59.4 pg/mL 18.4-80.1 [facility] Thyroid Stimulating Hormone (TSH) 5.43 uIU/mL 0.358-3.74 [facility] Vitamin D 25-Hydroxy 44.8 ng/mL [facility] Comment on above: Vitamin D 25(OH) Sta tus Range Deficiency <20 ng/mL (50nmol/L) Insufficiency 20 - 30 ng/mL (50 - 75 nmol/L) Sufficiency 30 - 100 ng/mL (75 - 250 nmol/L) Toxicity >100 ng/mL (>250 nmol/L) Serum or plasma albumin wale urement (mass/volume)Ordered By: Dr. Villa on 06-28-2022 Albumin [Mass/Vol] 3.3 g/dL 3.2-5.0 [facility] Serum or plasma albumin/glob ulin mass ratioOrdered By: Dr. Villa on 06-28-2022 Albumin/Globulin [Mass ratio] 0.8 {ratio} 0.9-2.4 [facility] Serum or plasma calcium wale urement (mass/volume)Ordered By: Dr. Villa on 06-28-2022 Calcium [Mass/Vol] 9.3 mg/dL 8.5-10.1 [facility] Serum or plasma cholesterol in HDL measurement (mass/volume)Ordered By: Dr. Villa on 06-28-2022 Cholesterol in HDL [Mass/Vol] 38 mg/dL >40 [facility] Comment on above: The drugs N-Acetylcy steine and Metamizole may falsely depress this assay. Reference Range HDL <40 mg/dL Low HDL Cholesterol HDL >or= 60 mg/dL High HDL Cholesterol Serum or plasma cholesterol in VLDL measurement (mass/volume)Ordered By: Dr. Villa on 06-28-2022 Cholesterol in VLDL [Mass/Vol] 57 mg/dL 5-40 [facility] Serum or plasma creatinine m easurement (mass/volume)Ordered By: Dr. Villa on 06-28-2022 Creatinine [Mass/Vol] 0.78 mg/dL 0.55-1.02 [facility] Comment on above: The validity of the calculated GFR & GFRAA in patients over 70 years has not been determined. Clinical correlation is essential. Serum or plasma low density lipoprotein (LDL) cholesterol measurement (mass/volume)Ordered By: Dr. Villa on 06-28-2022 Cholesterol in LDL [Mass/Vol] 18 mg/dL 0-130 [facility] Serum or plasma urea nitroge n measurement (mass/volume)Ordered By: Dr. Villa on 06-28-2022 Urea nitrogen [Mass/Vol] 21 mg/dL 7-18 [facility] Thin prep Papanicolaou smear with manual screeningOrdered By: Dr. Villa on 06-28-2022 Thin prep Papanicolaou smear with manual screening 41 U/L 15-37 [facility] Thin prep Papanicolaou smear with manual screening 9 5-15 [facility] Whole blood hemoglobin A1c/t otal hemoglobin ratio (mass fraction)Ordered By: Dr. Villa on 06-28-2022 HbA1c (Bld) [Mass fraction] 8.0 % 3.8-5.6 [facility] Comment on above: Normal < 5.7 % Predi abetic 5.7 - 6.4 % Diabetic >or= 6.5 % Please note range changes. Laboratory - Chemistry and C hemistry - challengeOrdered By: Dr. Bosch on 06-06-2022 Cobalamin (Vitamin B12) [Mass/Vol] 272 pg/mL 211-911 [facility] No Panel InformationOrdered By: Dr. Bosch on 06-06-2022 Thyroglobulin Antibody < 1.0 IU/mL 0.0-0.9 [facility] Comment on above: Thyroglobulin Antibo dy measured by Harini CoulterMethodologyPerformed at: [facility] - [email or web address] [address] [id number] Director: Yogesh Ramos MD, Phone: [phone] at: [email or web address] [address] [id number] Director: Tramaine Palacios PhD, Phone: [phone] Vitamin B6 Level 4.8 ug/L 3.4-65.2 [facility] Comment on above: Deficiency: <3.4 Mar ginal: 3.4 - 5.1 Adequate: >5.1 Whole Blood Vitamin B1 Level 134.6 nmol/L 66.5-200.0 [facility] Serum or plasma thyroperoxid ase antibody assay (units/volume)Ordered By: Dr. Bosch on 06-06-2022 TPO Ab Qn 92 [IU]/mL 0-34 [facility] 24 hour urine calcium measur ement (mass/volume)Ordered By: Dr. Villa on 05-17-2022 Calcium (24H U) [Mass/Vol] 6.8 mg/dL Not Estab. [facility] Basophil percentageOrdered B y: Dr. Villa on 05-17-2022 Basophil percentage 3.5 mg/dL 2.5-4.9 [facility] Laboratory - Chemistry and C hemistry - challengeOrdered By: Dr. Villa on 05-17-2022 Magnesium [Mass/Vol] 1.0 mg/dL 1.6-2.6 [facility] No Panel InformationOrdered By: Dr. Villa on 05-17-2022 Ionized Calcium 5.6 mg/dL 4.5-5.6 [facility] Comment on above: Performed at: [facility] Director: Tramaine Palacios PhD, Phone: [phone] Miscellaneous Test See comment [facility] Comment on above: TEST RESULT LIMITS P THrP (PTH-Related Peptide) <2.0 pmol/L This test was developed and its performance characteristics determined by [facility]. It has not been cleared or approved [...] contact the laboratory. ____ TESTING PERFORMED AT [facility]. ORIGINAL REPORT ON FILE IN LAB CONTAINS ADDITIONAL TEST SITE INFORMATION. Parathyroid Hormone (Intact) 47.9 pg/mL 18.4-80.1 [facility] Vitamin D 25-Hydroxy 66.5 ng/mL [facility] Comment on above: Vitamin D 25(OH) Sta tus Range Deficiency <20 ng/mL (50nmol/L) Insufficiency 20 - 30 ng/mL (50 - 75 nmol/L) Sufficiency 30 - 100 ng/mL (75 - 250 nmol/L) Toxicity >100 ng/mL (>250 nmol/L) Serum or plasma calcitriol m easurement (mass/volume)Ordered By: Dr. Villa on 05-17-2022 1,25-dihydroxyvitamin D3 [Mass/Vol] 44.2 pg/mL 24.8-81.5 [facility] Comment on above: Performed at: [address] [id number] Director: Yogesh Ramos MD, Phone: [phone] Urine creatinine measurement (mass/volume)Ordered By: Dr. Villa on 05-17-2022 Creatinine (U) [Mass/Vol] 75.60 mg/dL NO RANGE EST. [facility] Culture, urineOrdered By: Giuliana Jacobs on 04-19-2022 Bacteria identified Cx Nom (U) Klebsiella pneumoniae sp pneum [facility] Basophil percentageOrdered B y: Dr. Villa on 04-11-2022 Basophil percentage 3.1 mg/dL 2.5-4.9 [facility] Bilirubin [Mass/Vol] 0.60 mg/dL 0.20-1.00 [facility] Comment on above: For patients on eltr ombopag therapy, use of Dimension [place] TBIL is not recommended. Chloride [Moles/Vol] 106 mmol/L 98-107 [facility] Cholesterol [Mass/Vol] 180 mg/dL <200 [facility] Comment on above: <200 mg/dL Desirable 200-240 mg/dL Borderline >240 mg/dL High Risk Glucose [Mass/Vol] 148 mg/dL 74-106 [facility] Comment on above: Fasting Glucose resu lt greater than or equal to 126 mg/dL suggests DIABETES MELLITUS per A.D.A. criteria. Potassium [Moles/Vol] 4.3 mmol/L 3.5-5.1 [facility] Protein [Mass/Vol] 7.7 g/dL 6.4-8.2 [facility] Sodium [Moles/Vol] 138 mmol/L 136-145 [facility] Triglyceride [Mass/Vol] 265 mg/dL <199 [facility] Comment on above: The drugs N-Acetylcy steine and Metamizole may falsely depress this assay.Serum Triglycerides Reference Interval Normal <150 mg/dL Borderline high 150 - 199 mg/dL High 200 - 499 mg/dL Very High > or = 500 mg/dL Laboratory - Chemistry and C hemistry - challengeOrdered By: Dr. Villa on 04-11-2022 ALP [Catalytic activity/Vol] 87 U/L 45-117 [facility] ALT [Catalytic activity/Vol] 22 U/L 13-56 [facility] CO2 [Moles/Vol] 24.0 mmol/L 21.0-32.0 [facility] Free T4 [Mass/Vol] 1.30 ng/dL 0.76-1.46 [facility] Globulin (S) [Mass/Vol] 3.9 g/dL 2.2-4.2 [facility] Urea nitrogen/Creatinine [Mass ratio] 23.5 mg/mg 10-20 [facility] No Panel InformationOrdered By: Dr. Villa on 04-11-2022 Estimated GFR (MDRD) Amer 101 mL/min >60 [facility] Comment on above: GFR Calc Estimated GFR (MDRD) Non-Af Amer 83 mL/min >60 [facility] Comment on above: Non- GFR Calc Ionized Calcium 6.6 mg/dL 4.5-5.6 [facility] Comment on above: Verified by repeat analysisPerformed at: [facility] [id number] Director: Tramaine Palacios PhD, Phone: [phone] Parathyroid Hormone (Intact) 50.6 pg/mL 18.4-80.1 [facility] Thyroid Stimulating Hormone (TSH) 0.96 uIU/mL 0.358-3.74 [facility] Vitamin D 25-Hydroxy 79.1 ng/mL [facility] Comment on above: Vitamin D 25(OH) Sta tus Range Deficiency <20 ng/mL (50nmol/L) Insufficiency 20 - 30 ng/mL (50 - 75 nmol/L) Sufficiency 30 - 100 ng/mL (75 - 250 nmol/L) Toxicity >100 ng/mL (>250 nmol/L) Serum or plasma albumin wale urement (mass/volume)Ordered By: Dr. Villa on 04-11-2022 Albumin [Mass/Vol] 3.8 g/dL 3.2-5.0 [facility] Serum or plasma albumin/glob ulin mass ratioOrdered By: Dr. Villa on 04-11-2022 Albumin/Globulin [Mass ratio] 1.0 {ratio} 0.9-2.4 [facility] Serum or plasma calcitriol m easurement (mass/volume)Ordered By: Dr. Villa on 04-11-2022 1,25-dihydroxyvitamin D3 [Mass/Vol] 46.9 pg/mL 24.8-81.5 [facility] Comment on above: Performed at: - [address] [id number] Director: Yogesh Ramos MD, Phone: [phone] Serum or plasma calcium wale urement (mass/volume)Ordered By: Dr. Villa on 04-11-2022 Calcium [Mass/Vol] 11.1 mg/dL 8.5-10.1 [facility] Serum or plasma cholesterol in HDL measurement (mass/volume)Ordered By: Dr. Villa on 04-11-2022 Cholesterol in HDL [Mass/Vol] 41 mg/dL >40 [facility] Comment on above: The drugs N-Acetylcy steine and Metamizole may falsely depress this assay. Reference Range HDL <40 mg/dL Low HDL Cholesterol HDL >or= 60 mg/dL High HDL Cholesterol Serum or plasma cholesterol in VLDL measurement (mass/volume)Ordered By: Dr. Villa on 04-11-2022 Cholesterol in VLDL [Mass/Vol] 53 mg/dL 5-40 [facility] Serum or plasma creatinine m easurement (mass/volume)Ordered By: Dr. Villa on 04-11-2022 Creatinine [Mass/Vol] 0.72 mg/dL 0.55-1.02 [facility] Comment on above: The validity of the calculated GFR & GFRAA in patients over 70 years has not been determined. Clinical correlation is essential. Serum or plasma low density lipoprotein (LDL) cholesterol measurement (mass/volume)Ordered By: Dr. Villa on 04-11-2022 Cholesterol in LDL [Mass/Vol] 86 mg/dL 0-130 [facility] Serum or plasma urea nitroge n measurement (mass/volume)Ordered By: Dr. Villa on 04-11-2022 Urea nitrogen [Mass/Vol] 17 mg/dL 7-18 [facility] Thin prep Papanicolaou smear with manual screeningOrdered By: Dr. Villa on 04-11-2022 Thin prep Papanicolaou smear with manual screening 41 U/L 15-37 [facility] Thin prep Papanicolaou smear with manual screening 8 5-15 [facility] Whole blood hemoglobin A1c/t otal hemoglobin ratio (mass fraction)Ordered By: Dr. Villa on 04-11-2022 HbA1c (Bld) [Mass fraction] 7.2 % 3.8-5.6 [facility] Comment on above: Normal < 5.7 % Predi abetic 5.7 - 6.4 % Diabetic >or= 6.5 % Please note range changes. Glucose Glucometer (BldC) [M ass/Vol]Ordered By: Dr. Elizabeth on 03-16-2022 Glucose [Mass/Vol] 180 mg/dL 74-106 [facility] Comment on above: MANAGEMENT OF PATIEN T CARE PER NURSING PROTOCOL Absolute lymphocyte countOrd ered By: Dr. Elizabeth on 03-09-2022 Lymphocytes Auto (Unsp spec) [#/Vol] 3.71 10*3/uL 0.83-4.51 [facility] Basophil percentageOrdered B y: Dr. Elizabeth on 03-09-2022 Basophils/100 WBC (Bld) 1.1 % 0-1 [facility] Chloride [Moles/Vol] 106 mmol/L 98-107 [facility] Eosinophils/100 WBC (Bld) 4.4 % 0-5 [facility] Glucose [Mass/Vol] 144 mg/dL 74-106 [facility] Comment on above: Fasting Glucose resu lt greater than or equal to 126 mg/dL suggests DIABETES MELLITUS per A.D.A. criteria. Neutrophils (Bld) [#/Vol] 6.1 10*3/uL 2.0-7.7 [facility] Neutrophils/100 WBC (Bld) 54.6 % 47-70 [facility] Potassium [Moles/Vol] 4.0 mmol/L 3.5-5.1 [facility] Sodium [Moles/Vol] 139 mmol/L 136-145 [facility] WBC (Bld) [#/Vol] 11.2 10*3/uL 4.4-11.0 [facility] Blood erythrocytes count (nu mber/volume)Ordered By: Dr. Elizabeth on 03-09-2022 RBC (Bld) [#/Vol] 4.30 10*6/uL 4.2-5.4 [facility] Blood hemoglobin measurement (mass/volume)Ordered By: Dr. Elizabeth on 03-09-2022 Hemoglobin (Bld) [Mass/Vol] 12.9 g/dL 12.0-15.0 [facility] Blood lymphocytes/100 leukoc ytesOrdered By: Dr. Elizabeth on 03-09-2022 Lymphocytes/100 WBC (Bld) 33.0 % 19-41 [facility] Blood monocytes/100 leukocyt esOrdered By: Dr. Elizabeth on 03-09-2022 Monocytes/100 WBC (Bld) 6.5 % 0-10 [facility] Blood platelet mean volumeOr dered By: Dr. Elizabeth on 03-09-2022 Platelet mean volume (Bld) [Entitic vol] 10.4 fL 6.2-12.0 [facility] Determination of erythrocyte mean corpuscular volume (MCV)Ordered By: Dr. Elizabeth on 03-09-2022 MCV (RBC) [Entitic vol] 90.5 fL 81-99 [facility] Hematocrit Auto (Bld) [Volum e fraction]Ordered By: Dr. Elizabeth on 03-09-2022 Hematocrit (Bld) [Volume fraction] 38.9 % 37-47 [facility] Laboratory - Chemistry and C hemistry - challengeOrdered By: Dr. Elizabeth on 03-09-2022 CO2 [Moles/Vol] 28.0 mmol/L 21.0-32.0 [facility] Urea nitrogen/Creatinine [Mass ratio] 20.5 mg/mg 10-20 [facility] Laboratory - Hematology and Cell countsOrdered By: Dr. Elizabeth on 03-09-2022 Erythrocyte distribution width (RBC) [Entitic vol] 42.9 fL 35.1-43.9 [facility] Erythrocyte distribution width (RBC) [Ratio] 13.2 % 11.6-14.6 [facility] Immature granulocytes/100 WBC (Bld) 0.400 % 0.0-0.9 [facility] Comment on above: IG% - Immature Granu locytes (promyelocytes, myelocytes and metamyelocytes) > 1% indicates that a LEFT SHIFT is Present. MCH (RBC) [Entitic mass] 30.0 pg 27.0-32.0 [facility] Nucleated RBC/100 WBC (Bld) [Ratio] 0 % 0-5 [facility] MCHC Auto (RBC) [Mass/Vol]Or dered By: Dr. Elizabeth on 03-09-2022 MCHC (RBC) [Mass/Vol] 33.2 g/dL 32-36 [facility] No Panel InformationOrdered By: Dr. Elizabeth on 03-09-2022 Estimated GFR (MDRD) Amer 99 mL/min >60 [facility] Comment on above: GFR Calc Estimated GFR (MDRD) Non-Af Amer 82 mL/min >60 [facility] Comment on above: Non- GFR Calc Vitamin D 25-Hydroxy 90.4 ng/mL [facility] Comment on above: Vitamin D 25(OH) Sta tus Range Deficiency <20 ng/mL (50nmol/L) Insufficiency 20 - 30 ng/mL (50 - 75 nmol/L) Sufficiency 30 - 100 ng/mL (75 - 250 nmol/L) Toxicity >100 ng/mL (>250 nmol/L) No Panel InformationOrdered By: Dr. Bradley on 03-09-2022 Thyroid Stimulating Hormone (TSH) 0.29 uIU/mL 0.358-3.74 [facility] Platelets bldOrdered By: Dr. Elizabeth on 03-09-2022 Platelets (Bld) [#/Vol] 306 10*3/uL 150-450 [facility] Serum or plasma albumin wale urement (mass/volume)Ordered By: Dr. Elizabeth on 03-09-2022 Albumin [Mass/Vol] 3.7 g/dL 3.2-5.0 [facility] Serum or plasma calcium wale urement (mass/volume)Ordered By: Dr. Elizabeth on 03-09-2022 Calcium [Mass/Vol] 10.6 mg/dL 8.5-10.1 [facility] Serum or plasma creatinine m easurement (mass/volume)Ordered By: Dr. Elizabeth on 03-09-2022 Creatinine [Mass/Vol] 0.73 mg/dL 0.55-1.02 [facility] Comment on above: The validity of the calculated GFR & GFRAA in patients over 70 years has not been determined. Clinical correlation is essential. Serum or plasma urea nitroge n measurement (mass/volume)Ordered By: Dr. Elizabeth on 03-09-2022 Urea nitrogen [Mass/Vol] 15 mg/dL 7-18 [facility] Thin prep Papanicolaou smear with manual screeningOrdered By: Dr. Elizabeth on 03-09-2022 Thin prep Papanicolaou smear with manual screening 5 5-15 [facility] Whole blood hemoglobin A1c/t otal hemoglobin ratio (mass fraction)Ordered By: Dr. Elizabeth on 03-09-2022 HbA1c (Bld) [Mass fraction] 7.3 % 3.8-5.6 [facility] Comment on above: Normal < 5.7 % Predi abetic 5.7 - 6.4 % Diabetic >or= 6.5 % Please note range changes. Basophil percentageon 2021 Bilirubin [Mass/Vol] 0.40 mg/dL 0.20-1.00 [facility] Work Phone: Comment on above: For patients on eltr ombopag therapy, use of Dimension [place] TBIL is not recommended. Chloride [Moles/Vol] 105 mmol/L 98-107 [facility] Work Phone: Cholesterol [Mass/Vol] 143 mg/dL <200 [facility] Work Phone: Comment on above: <200 mg/dL Desirable 200-240 mg/dL Borderline >240 mg/dL High Risk Glucose [Mass/Vol] 153 mg/dL 74-106 [facility] Work Phone: Comment on above: Fasting Glucose resu lt greater than or equal to 126 mg/dL suggests DIABETES MELLITUS per A.D.A. criteria. Potassium [Moles/Vol] 4.4 mmol/L 3.5-5.1 [facility] Work Phone: Protein [Mass/Vol] 7.6 g/dL 6.4-8.2 [facility] Work Phone: Sodium [Moles/Vol] 138 mmol/L 136-145 [facility] Work Phone: Triglyceride [Mass/Vol] 290 mg/dL <199 [facility] Work Phone: Comment on above: The drugs N-Acetylcy steine and Metamizole may falsely depress this assay.Serum Triglycerides Reference Interval Normal <150 mg/dL Borderline high 150 - 199 mg/dL High 200 - 499 mg/dL Very High > or = 500 mg/dL Laboratory - Chemistry and C hemistry - challengeon 12-09-2021 ALP [Catalytic activity/Vol] 93 U/L 45-117 [facility] Work Phone: ALT [Catalytic activity/Vol] 26 U/L 13-56 [facility] Work Phone: CO2 [Moles/Vol] 25.0 mmol/L 21.0-32.0 [facility] Work Phone: Free T4 [Mass/Vol] 1.64 ng/dL 0.76-1.46 [facility] Work Phone: Globulin (S) [Mass/Vol] 4.1 g/dL 2.2-4.2 [facility] Work Phone: Urea nitrogen/Creatinine [Mass ratio] 24.0 mg/mg 10-20 [facility] Work Phone: No Panel Informationon 12-09 Estimated GFR (MDRD) Amer 77 mL/min >60 [facility] Work Phone: Comment on above: GFR Calc Estimated GFR (MDRD) Non-Af Amer 63 mL/min >60 [facility] Work Phone: Comment on above: Non- GFR Calc Thyroid Stimulating Hormone (TSH) 0.24 uIU/mL 0.358-3.74 [facility] Work Phone: Serum or plasma albumin wale urement (mass/volume)on 12-09-2021 Albumin [Mass/Vol] 3.5 g/dL 3.2-5.0 [facility] Work Phone: Serum or plasma albumin/glob ulin mass ratioon 12-09-2021 Albumin/Globulin [Mass ratio] 0.9 {ratio} 0.9-2.4 [facility] Work Phone: Serum or plasma calcium wale urement (mass/volume)on 12-09-2021 Calcium [Mass/Vol] 10.3 mg/dL 8.5-10.1 [facility] Work Phone: Serum or plasma cholesterol in HDL measurement (mass/volume)on 12-09-2021 Cholesterol in HDL [Mass/Vol] 35 mg/dL >40 [facility] Work Phone: Comment on above: The drugs N-Acetylcy steine and Metamizole may falsely depress this assay. Reference Range HDL <40 mg/dL Low HDL Cholesterol HDL >or= 60 mg/dL High HDL Cholesterol Serum or plasma cholesterol in VLDL measurement (mass/volume)on 12-09-2021 Cholesterol in VLDL [Mass/Vol] 58 mg/dL 5-40 [facility] Work Phone: Serum or plasma creatinine m easurement (mass/volume)on 12-09-2021 Creatinine [Mass/Vol] 0.92 mg/dL 0.55-1.02 [facility] Work Phone: Comment on above: The validity of the calculated GFR & GFRAA in patients over 70 years has not been determined. Clinical correlation is essential. Serum or plasma low density lipoprotein (LDL) cholesterol measurement (mass/volume)on 12-09-2021 Cholesterol in LDL [Mass/Vol] 50 mg/dL 0-130 [facility] Work Phone: Serum or plasma urea nitroge n measurement (mass/volume)on 12-09-2021 Urea nitrogen [Mass/Vol] 22 mg/dL 7-18 [facility] Work Phone: Thin prep Papanicolaou smear with manual screeningon 12-09-2021 Thin prep Papanicolaou smear with manual screening 44 U/L 15-37 [facility] Work Phone: Thin prep Papanicolaou smear with manual screening 8 5-15 [facility] Work Phone: Thin prep Papanicolaou smear with manual screening 12.9 mg/L NO RANGE EST. [facility] Work Phone: Whole blood hemoglobin A1c/t otal hemoglobin ratio (mass fraction)on 12-09-2021 HbA1c (Bld) [Mass fraction] 6.9 % 3.8-5.6 [facility] Work Phone: Comment on above: Normal < 5.7 % Predi abetic 5.7 - 6.4 % Diabetic >or= 6.5 % Please note range changes. Final Surgical Pathology Rep [facility] 09-23-2018 Final Surgical Pathology Report . Pathology Reports Accession: Collected Date/Time: Received Date/Time: Pathologist: [id number] 09/19/2018 14:43 EDT 09/20/2018 14:43 EDT ALBERTO SULLIVAN MD Final Surgical Pathology Report DIAGNOSIS: CECUM, POLYPECTOMY- TUBULAR ADENOMA. CLINICAL INFORMATION: CHANGE IN BOWELS SPECIMEN: A POLYP, CECUM BIOPSY GROSS DESCRIPTION: Received in formalin labeled cecum polyp is a 0.5 cm [place] glistening soft tissue. TS -1 Dictated by Angeli BHATT ([facility]) MICROSCOPIC DESCRIPTION: Slides reviewed. Electronically Signed by Pathology Report verified by Electronically signed by ALBERTO SULLIVAN Sign out Date: 09/23/2018 15:23 Performing Lab: , [address] [place] [id number] [facility] ([place]) Comment on above: Performed By: #### S PFR #### [address] [place] [id number] Culture, urine Bacteria identified Cx Nom (U) Klebsiella pneumoniae sp pneum [facility] Work Phone: Vital Signs Date Time Vital Sign Value Performing Clinician Facility 01-27-2025 14:31-0400 Body temperature 97.3 [degF] Dr. Benny Bosch MD Work Phone: [facility] 01-27-2025 14:31-0400 Diastolic blood pressure 70 mm[Hg] Dr. Benny Bosch MD Work Phone: [facility] 01-27-2025 14:31-0400 Heart rate 90 /min Dr. Benny Bosch MD Work Phone: [facility] 01-27-2025 14:31-0400 Respiratory rate 18 /min Dr. Benny Bosch MD Work Phone: [facility] 01-27-2025 14:31-0400 SaO2% (BldA) [Mass fraction] 98 % Dr. Benny Bosch MD Work Phone: [facility] 01-27-2025 14:31-0400 Systolic blood pressure 168 mm[Hg] Dr. Benny Bosch MD Work Phone: [facility] 01-27-2025 12:49-0400 Body height 154.[address] Benny Bosch MD Work Phone: [facility] 12-06-2024 17:29-0400 Body temperature 98.8 [degF] Dr. Benny Bosch MD Work Phone: [facility] 12-06-2024 17:29-0400 Diastolic blood pressure 77 mm[Hg] Dr. Benny Bosch MD Work Phone: [facility] 12-06-2024 17:29-0400 Heart rate 90 /min Dr. Benny Bosch MD Work Phone: 4(514)331-640888 [address] 12-06-2024 17:29-0400 Respiratory rate 18 /min Dr. Benny Bosch MD Work Phone: 8(106)039-427828 [place] [address] 12-06-2024 17:29-0400 SaO2% (BldA) [Mass fraction] 97 % Dr. Benny Bosch MD Work Phone: 3(832)043-226728 [place] [address] 12-06-2024 17:29-0400 Systolic blood pressure 144 mm[Hg] Dr. Benny Bosch MD Work Phone: 1(703)996-571828 [place] [address] 12-06-2024 13:08-0400 Body height 154.[address] Benny Bosch MD Work Phone: 4(796)362-938028 [place] [address] 12-06-2024 13:08-0400 Body mass index (BMI) [Ratio] 33.4 kg/m2 Dr. Benny Bosch MD Work Phone: 3(157)670-829428 [place] [address] 12-06-2024 13:08-0400 Body weight 80.[address] Benny Bosch MD Work Phone: 1(978)898-388728 [place] [address] 11-06-2024 11:48-0400 Body height 154.[address] Benny Bosch MD Work Phone: 2(499)407-733128 [place] [address] 11-06-2024 11:48-0400 Body mass index (BMI) [Ratio] 33.4 kg/m2 Dr. Benny Bosch MD Work Phone: 1(240)404-991328 [place] [address] 11-06-2024 11:48-0400 Body temperature 97.8 [degF] Dr. Benny Bosch MD Work Phone: 2(239)268-063828 [place] [address] 11-06-2024 11:48-0400 Body weight 80.[address] Benny Bosch MD Work Phone: 7(492)177-299228 [place] [address] 11-06-2024 11:48-0400 Diastolic blood pressure 76 mm[Hg] Dr. Benny Bosch MD Work Phone: 8(648)640-777728 [place] [address] 11-06-2024 11:48-0400 Heart rate 89 /min Dr. Benny Bosch MD Work Phone: [facility] 11-06-2024 11:48-0400 Respiratory rate 16 /min Dr. Benny Bosch MD Work Phone: [facility] 11-06-2024 11:48-0400 SaO2% (BldA) [Mass fraction] 97 % Dr. Benny Bosch MD Work Phone: [facility] 11-06-2024 11:48-0400 Systolic blood pressure 138 mm[Hg] Dr. Benny Bosch MD Work Phone: [facility] 08-18-2024 10:34-0400 Body mass index (BMI) [Ratio] 33.81 kg/m2 Danayeufemia Griffin Work Phone: [facility] 08-18-2024 10:34-0400 Body temperature 97.39 [degF] Danay Griffin Work Phone: [facility] 08-18-2024 10:34-0400 Body weight 79.83 kg Danayeufemia Griffin Work Phone: [facility] 08-18-2024 10:34-0400 Diastolic blood pressure 110 mm[Hg] Danay Griffin Work Phone: [facility] 08-18-2024 10:34-0400 Heart rate 74 /min Danayeufemia Griffin Work Phone: [facility] 08-18-2024 10:34-0400 SaO2% (BldA) [Mass fraction] 99 % Danayeufemia Griffin Work Phone: [facility] 08-18-2024 10:34-0400 Systolic blood pressure 186 mm[Hg] Danay Griffin Work Phone: [facility] 08-18-2024 08:00-0400 Body temperature 98.2 [degF] [facility] Work Phone: [facility] 08-18-2024 08:00-0400 Diastolic blood pressure 89 mm[Hg] [facility] Work Phone: [facility] 08-18-2024 08:00-0400 Heart rate 67 /min [facility] Work Phone: [facility] 08-18-2024 08:00-0400 Systolic blood pressure 164 mm[Hg] [facility] Work Phone: [facility] 06-03-2024 14:03-0500 Body temperature 97.5 [degF] Dr. Benny Bosch MD Work Phone: [facility] 06-03-2024 14:03-0500 Diastolic blood pressure 61 mm[Hg] Dr. Benny Bosch MD Work Phone: [facility] 06-03-2024 14:03-0500 Heart rate 63 /min Dr. Benny Bosch MD Work Phone: [facility] 06-03-2024 14:03-0500 Respiratory rate 16 /min Dr. Benny Bosch MD Work Phone: [facility] 06-03-2024 14:03-0500 SaO2% (BldA) [Mass fraction] 97 % Dr. Benny Bosch MD Work Phone: [facility] 06-03-2024 14:03-0500 Systolic blood pressure 104 mm[Hg] Dr. Benny Bosch MD Work Phone: [facility] 06-03-2024 12:50-0500 Body height 154.[address] Benny Bosch MD Work Phone: [facility] 06-03-2024 12:50-0500 Body mass index (BMI) [Ratio] 30.4 kg/m2 Dr. Benny Bosch MD Work Phone: [facility] 06-03-2024 12:50-0500 Body weight [address] Benny Bosch MD Work Phone: [facility] 05-23-2024 07:55-0500 Body temperature 97.6 [degF] Dr. Benny Bosch MD Work Phone: [facility] 05-23-2024 07:55-0500 Diastolic blood pressure 56 mm[Hg] Dr. Benny Bosch MD Work Phone: [facility] 05-23-2024 07:55-0500 Heart rate 76 /min Dr. Benny Bosch MD Work Phone: 2(834)099-214988 [address] 05-23-2024 07:55-0500 Respiratory rate 16 /min Dr. Benny Bosch MD Work Phone: 3(831)501-803318 [place] [address] 05-23-2024 07:55-0500 SaO2% (BldA) [Mass fraction] 96 % Dr. Benny Bosch MD Work Phone: 0(881)850-511188 [address] 05-23-2024 07:55-0500 Systolic blood pressure 99 mm[Hg] Dr. Benny Bosch MD Work Phone: 8(708)829-264328 [place] [address] 05-23-2024 06:22-0500 Body mass index (BMI) [Ratio] 30.8 kg/m2 Dr. Benny Bosch MD Work Phone: 3(504)875-213688 [address] 05-23-2024 06:22-0500 Body weight [address] Benny Bosch MD Work Phone: 1(047)879-579088 [address] 05-13-2024 13:26-0500 Body mass index (BMI) [Ratio] 30.6 kg/m2 Dr. Benny Bosch MD Work Phone: 5(463)145-621018 [place] [address] 05-13-2024 13:26-0500 Body temperature 98.2 [degF] Dr. Benny Bosch MD Work Phone: 0(447)629-452118 [place] [address] 05-13-2024 13:26-0500 Body weight 73.[address] Benny Bosch MD Work Phone: 6(958)462-038488 [address] 05-13-2024 13:26-0500 Diastolic blood pressure 84 mm[Hg] Dr. Benny Bosch MD Work Phone: 8(208)459-632318 [place] [address] 05-13-2024 13:26-0500 Heart rate 91 /min Dr. Benny Bosch MD Work Phone: [facility] 05-13-2024 13:26-0500 Respiratory rate 14 /min Dr. Benny Bosch MD Work Phone: [facility] 05-13-2024 13:26-0500 SaO2% (BldA) [Mass fraction] 96 % Dr. Benny Bosch MD Work Phone: [facility] 05-13-2024 13:26-0500 Systolic blood pressure 148 mm[Hg] Dr. Benny Bosch MD Work Phone: 3(923)118-026418 [place] [address] 04-24-2024 14:33-0500 Body temperature 97.7 [degF] Dr. Benny Bosch MD Work Phone: 7(608)940-573018 [place] [address] 04-24-2024 14:33-0500 Diastolic blood pressure 89 mm[Hg] Dr. Benny Bosch MD Work Phone: 3(549)228-414018 [place] [address] 04-24-2024 14:33-0500 Heart rate 79 /min Dr. Benny Bosch MD Work Phone: 6(091)851-678618 [place] [address] 04-24-2024 14:33-0500 Respiratory rate 17 /min Dr. Benny Bosch MD Work Phone: [facility] 04-24-2024 14:33-0500 SaO2% (BldA) [Mass fraction] 96 % Dr. Benny Bosch MD Work Phone: [facility] 04-24-2024 14:33-0500 Systolic blood pressure 157 mm[Hg] Dr. Benny Bosch MD Work Phone: 0(110)072-178618 [place] [address] 04-24-2024 10:29-0500 Body mass index (BMI) [Ratio] 31.4 kg/m2 Dr. Benny Bosch MD Work Phone: [facility] 04-24-2024 10:29-0500 Body weight 75.[address] Benny Bosch MD Work Phone: 2(558)142-285418 [place] [address] 03-03-2024 08:31-0400 Body mass index (BMI) [Ratio] 33.42 kg/m2 Danay Griffin Work Phone: [facility] 03-03-2024 08:31-0400 Body temperature 97.3 [degF] Danay Griffin Work Phone: [facility] 03-03-2024 08:31-0400 Body weight 78.93 kg Danay Griffin Work Phone: [facility] 03-03-2024 08:31-0400 Diastolic blood pressure 92 mm[Hg] Danay Griffin Work Phone: [facility] 03-03-2024 08:31-0400 Heart rate 78 /min Danay Griffin Work Phone: [facility] 03-03-2024 08:31-0400 SaO2% (BldA) [Mass fraction] 98 % Danay Griffin Work Phone: [facility] 03-03-2024 08:31-0400 Systolic blood pressure 155 mm[Hg] Danay Griffin Work Phone: [facility] 01-28-2024 09:38-0400 Body height 153.7 cm Marshal Park MD Work Phone: [facility] 01-28-2024 09:38-0400 Body mass index (BMI) [Ratio] 33.42 kg/m2 Marshal Park MD Work Phone: [facility] 01-28-2024 09:38-0400 Body weight 78.93 kg Marshal Park MD Work Phone: [facility] 01-28-2024 09:38-0400 Diastolic blood pressure 94 mm[Hg] Marshal Park MD Work Phone: [facility] 01-28-2024 09:38-0400 Systolic blood pressure 130 mm[Hg] Marshal Park MD Work Phone: [facility] 12-11-2023 09:28-0400 Body mass index (BMI) [Ratio] 33.05 kg/m2 Altamont Wilkinson [employer] Work Phone: [facility] 12-11-2023 09:28-0400 Body temperature 97.2 [degF] Susan Wilkinson [employer] Work Phone: [facility] 12-11-2023 09:28-0400 Body weight 78.88 kg Susan Wilkinson [employer] Work Phone: [facility] 12-11-2023 09:28-0400 Diastolic blood pressure 83 mm[Hg] Susan Wilkinson [employer] Work Phone: [facility] 12-11-2023 09:28-0400 Heart rate 77 /min Susan Choudhuryenter [employer] Work Phone: [facility] 12-11-2023 09:28-0400 SaO2% (BldA) [Mass fraction] 99 % Susan Choudhuryenter [employer] Work Phone: [facility] 12-11-2023 09:28-0400 Systolic blood pressure 152 mm[Hg] Altamont Wilkinson [employer] Work Phone: [facility] 09-18-2023 09:00-0400 Body temperature 97.59 [degF] [facility] Work Phone: [facility] 09-18-2023 09:00-0400 Diastolic blood pressure 67 mm[Hg] [facility] Work Phone: [facility] 09-18-2023 09:00-0400 Heart rate 74 /min [facility] Work Phone: [facility] 09-18-2023 09:00-0400 Systolic blood pressure 154 mm[Hg] [facility] Work Phone: [facility] 08-03-2023 09:15-0400 Body temperature 98.1 [degF] Altamont Wilkinson [employer] Work Phone: [facility] 08-03-2023 09:15-0400 Body weight 78.47 kg Altamont Wilkinson [employer] Work Phone: [facility] 08-03-2023 09:15-0400 Diastolic blood pressure 84 mm[Hg] Susan Choudhuryenter [employer] Work Phone: [facility] 08-03-2023 09:15-0400 Heart rate 75 /min Susan Choudhuryenter [employer] Work Phone: [facility] 08-03-2023 09:15-0400 SaO2% (BldA) [Mass fraction] 97 % Susan Choudhuryenter [employer] Work Phone: [facility] 08-03-2023 09:15-0400 Systolic blood pressure 146 mm[Hg] Susan Choudhuryenter [employer] Work Phone: [facility] 06-28-2023 11:32-0500 Body height 154.[address] Benny Bosch Work Phone: [facility] 06-28-2023 11:32-0500 Body mass index (BMI) [Ratio] 32.3 kg/m2 Dr. Benny Bosch Work Phone: [facility] 06-28-2023 11:32-0500 Body temperature 98 [degF] Dr. Benny Bosch Work Phone: [facility] 06-28-2023 11:32-0500 Body weight 77.[address] Benny Bosch Work Phone: [facility] 06-28-2023 11:32-0500 Diastolic blood pressure 86 mm[Hg] Dr. Benny Bosch Work Phone: [facility] 06-28-2023 11:32-0500 Heart rate 77 /min Dr. Benny Bosch Work Phone: [facility] 06-28-2023 11:32-0500 Respiratory rate 16 /min Dr. Benny Bosch Work Phone: [facility] 06-28-2023 11:32-0500 SaO2% (BldA) [Mass fraction] 98 % Dr. Benny Bosch Work Phone: [facility] 06-28-2023 11:32-0500 Systolic blood pressure 128 mm[Hg] Dr. Benny Bosch Work Phone: [facility] 06-21-2023 11:37-0500 Body mass index (BMI) [Ratio] 32.8 kg/m2 Dr. Benny Bosch Work Phone: 9(037)433-237118 [place] [address] 06-21-2023 11:37-0500 Body temperature 98 [degF] Dr. Benny Bosch Work Phone: 9(169)196-828218 [place] [address] 06-21-2023 11:37-0500 Body weight 78.[address] Benny Bosch Work Phone: 9(028)449-349818 [place] [address] 06-21-2023 11:37-0500 Diastolic blood pressure 74 mm[Hg] Dr. Benny Bosch Work Phone: 4(793)264-605118 [place] [address] 06-21-2023 11:37-0500 Heart rate 78 /min Dr. Benny Bosch Work Phone: 1(439)385-648818 [place] [address] 06-21-2023 11:37-0500 Respiratory rate 17 /min Dr. Benny Bosch Work Phone: 0(751)120-803618 [place] [address] 06-21-2023 11:37-0500 SaO2% (BldA) [Mass fraction] 96 % Dr. Benyn Bosch Work Phone: 6(765)607-857018 [place] [address] 06-21-2023 11:37-0500 Systolic blood pressure 110 mm[Hg] Dr. Benny Bosch Work Phone: [facility] 05-19-2023 10:50-0500 Body temperature 97.8 [degF] Dr. Benny Bosch Work Phone: 6(818)884-806218 [place] [address] 05-19-2023 10:50-0500 Diastolic blood pressure 78 mm[Hg] Dr. Benny Bosch Work Phone: [facility] 05-19-2023 10:50-0500 Heart rate 84 /min Dr. Benny Bosch Work Phone: 5(509)228-260918 [place] [address] 05-19-2023 10:50-0500 Respiratory rate 14 /min Dr. Benny Bosch Work Phone: [facility] 05-19-2023 10:50-0500 SaO2% (BldA) [Mass fraction] 96 % Dr. Benny Bosch Work Phone: [facility] 05-19-2023 10:50-0500 Systolic blood pressure 120 mm[Hg] Dr. Benny Bosch Work Phone: [facility] 04-20-2023 11:00-0500 Body temperature 97.59 [degF] Altamont Wilkinson [employer] Work Phone: [facility] 04-20-2023 11:00-0500 Body weight 76.66 kg Susan Wilkinson [employer] Work Phone: [facility] 04-20-2023 11:00-0500 Diastolic blood pressure 84 mm[Hg] Susan Wilkinson [employer] Work Phone: [facility] 04-20-2023 11:00-0500 Heart rate 81 /min Altamont Wilkinson [employer] Work Phone: [facility] 04-20-2023 11:00-0500 Systolic blood pressure 147 mm[Hg] Altamont Wilkinson [employer] Work Phone: [facility] 04-03-2023 09:41-0500 Body temperature 97.5 [degF] [facility] Work Phone: [facility] 04-03-2023 09:41-0500 Diastolic blood pressure 78 mm[Hg] [facility] Work Phone: [facility] 04-03-2023 09:41-0500 Heart rate 69 /min [facility] Work Phone: [facility] 04-03-2023 09:41-0500 Systolic blood pressure 136 mm[Hg] [facility] Work Phone: [facility] 03-27-2023 10:16-0500 Body temperature 97.59 [degF] Joy Barry MD, MD Work Phone: [facility] 03-27-2023 10:16-0500 Diastolic blood pressure 84 mm[Hg] Joy Barry MD, MD Work Phone: [facility] 03-27-2023 10:16-0500 Heart rate 70 /min Joy Barry MD, MD Work Phone: [facility] 03-27-2023 10:16-0500 SaO2% (BldA) [Mass fraction] 97 % Joy Barry MD, MD Work Phone: [facility] 03-27-2023 10:16-0500 Systolic blood pressure 145 mm[Hg] Joy Barry MD, MD Work Phone: [facility] 03-20-2023 10:33-0500 Body temperature 98.01 [degF] Joy Barry MD, MD Work Phone: [facility] 03-20-2023 10:33-0500 Diastolic blood pressure 72 mm[Hg] Joy Barry MD, MD Work Phone: [facility] 03-20-2023 10:33-0500 Heart rate 78 /min Joy Barry MD, MD Work Phone: [facility] 03-20-2023 10:33-0500 SaO2% (BldA) [Mass fraction] 98 % Joy Barry MD, MD Work Phone: [facility] 03-20-2023 10:33-0500 Systolic blood pressure 122 mm[Hg] Joy Barry MD, MD Work Phone: [facility] 03-15-2023 14:42-0400 Body height 154.[address] Benny Bosch Work Phone: [facility] 03-15-2023 14:42-0400 Body mass index (BMI) [Ratio] 32.4 kg/m2 Dr. Benny Bosch Work Phone: [facility] 03-15-2023 14:42-0400 Body temperature 98.2 [degF] Dr. Benny Bosch Work Phone: [facility] 03-15-2023 14:42-0400 Body weight 77.[address] Benny Bosch Work Phone: [facility] 03-15-2023 14:42-0400 Diastolic blood pressure 80 mm[Hg] Dr. Benny Bosch Work Phone: [facility] 03-15-2023 14:42-0400 Heart rate 76 /min Dr. Benny Bosch Work Phone: [facility] 03-15-2023 14:42-0400 Respiratory rate 17 /min Dr. Benny Bosch Work Phone: [facility] 03-15-2023 14:42-0400 SaO2% (BldA) [Mass fraction] 95 % Dr. Benny Bosch Work Phone: [facility] 03-15-2023 14:42-0400 Systolic blood pressure 130 mm[Hg] Dr. Benny Bosch Work Phone: [facility] 03-13-2023 10:17-0400 Body temperature 97.3 [degF] Joy Barry MD, MD Work Phone: [facility] 03-13-2023 10:17-0400 Diastolic blood pressure 82 mm[Hg] Joy Barry MD, MD Work Phone: [facility] 03-13-2023 10:17-0400 Heart rate 69 /min Joy Barry MD, MD Work Phone: [facility] 03-13-2023 10:17-0400 SaO2% (BldA) [Mass fraction] 98 % Joy Barry MD, MD Work Phone: [facility] 03-13-2023 10:17-0400 Systolic blood pressure 138 mm[Hg] Joy Barry MD, MD Work Phone: [facility] 03-06-2023 10:35-0400 Body temperature 97.3 [degF] Joy Barry MD, MD Work Phone: [facility] 03-06-2023 10:35-0400 Diastolic blood pressure 80 mm[Hg] Joy Barry MD, MD Work Phone: [facility] 03-06-2023 10:35-0400 Heart rate 67 /min Joy Barry MD, MD Work Phone: [facility] 03-06-2023 10:35-0400 SaO2% (BldA) [Mass fraction] 99 % Joy Barry MD, MD Work Phone: [facility] 03-06-2023 10:35-0400 Systolic blood pressure 156 mm[Hg] Joy Barry MD, MD Work Phone: [facility] 02-27-2023 10:14-0400 Body temperature 97.11 [degF] Joy Barry MD, MD Work Phone: [facility] 02-27-2023 10:14-0400 Diastolic blood pressure 75 mm[Hg] Joy Barry MD, MD Work Phone: [facility] 02-27-2023 10:14-0400 Heart rate 72 /min Joy Barry MD, MD Work Phone: [facility] 02-27-2023 10:14-0400 SaO2% (BldA) [Mass fraction] 97 % Joy Barry MD, MD Work Phone: [facility] 02-27-2023 10:14-0400 Systolic blood pressure 132 mm[Hg] Joy Barry MD, MD Work Phone: [facility] 02-22-2023 13:43-0400 Body temperature 97.8 [degF] Dr. Benny Bosch Work Phone: [facility] 02-22-2023 13:43-0400 Diastolic blood pressure 72 mm[Hg] Dr. Benny Bosch Work Phone: [facility] 02-22-2023 13:43-0400 Heart rate 76 /min Dr. Benny Bosch Work Phone: [facility] 02-22-2023 13:43-0400 Respiratory rate 18 /min Dr. Benny Bosch Work Phone: [facility] 02-22-2023 13:43-0400 SaO2% (BldA) [Mass fraction] 96 % Dr. Benny Bosch Work Phone: [facility] 02-22-2023 13:43-0400 Systolic blood pressure 140 mm[Hg] Dr. Benny Bosch Work Phone: [facility] 02-02-2023 14:23-0400 Body temperature 98.01 [degF] Joy Barry MD, MD Work Phone: [facility] 02-02-2023 14:23-0400 Body weight 78.02 kg Joy Barry MD, MD Work Phone: [facility] 02-02-2023 14:23-0400 Diastolic blood pressure 83 mm[Hg] Joy Barry MD, MD Work Phone: [facility] 02-02-2023 14:23-0400 Heart rate 72 /min Joy Barry MD, MD Work Phone: [facility] 02-02-2023 14:23-0400 Respiratory rate 15 /min Joy Barry MD, MD Work Phone: [facility] 02-02-2023 14:23-0400 SaO2% (BldA) [Mass fraction] 97 % Joy Barry MD, MD Work Phone: [facility] 02-02-2023 14:23-0400 Systolic blood pressure 155 mm[Hg] Joy Barry MD, MD Work Phone: [facility] 02-02-2023 13:32-0400 Body height 154.5 cm Bobby Chowdhury DO Work Phone: [facility] 02-02-2023 13:32-0400 Body temperature 98.01 [degF] Bobby Chowdhury DO Work Phone: [facility] 02-02-2023 13:32-0400 Body weight 78.02 kg Bobby Garciai DO Work Phone: [facility] 02-02-2023 13:32-0400 Diastolic blood pressure 83 mm[Hg] Bobby Garciai DO Work Phone: [facility] 02-02-2023 13:32-0400 Heart rate 72 /min Bobby Garciai DO Work Phone: [facility] 02-02-2023 13:32-0400 SaO2% (BldA) [Mass fraction] 97 % Bobby Radhai DO Work Phone: [facility] 02-02-2023 13:32-0400 Systolic blood pressure 155 mm[Hg] Bobby Garciai DO Work Phone: [facility] 01-05-2023 16:12-0400 Diastolic blood pressure 82 mm[Hg] Pacc 2 Work Phone: [facility] 01-05-2023 16:12-0400 Systolic blood pressure 155 mm[Hg] Pacc 2 Work Phone: [facility] 01-05-2023 14:25-0400 Body height 154.9 cm Pacc 2 Work Phone: [facility] 01-05-2023 14:25-0400 Body temperature 97.81 [degF] Pacc 2 Work Phone: [facility] 01-05-2023 14:25-0400 Body weight 78.56 kg Pacc 2 Work Phone: [facility] 01-05-2023 14:25-0400 Heart rate 70 /min Pacc 2 Work Phone: [facility] 01-05-2023 14:25-0400 Respiratory rate 16 /min Pacc 2 Work Phone: [facility] 01-05-2023 14:25-0400 SaO2% (BldA) [Mass fraction] 97 % Pacc 2 Work Phone: [facility] 12-22-2022 13:53-0400 Body temperature 98.1 [degF] Samuel Dinh MD Work Phone: [facility] 12-22-2022 13:53-0400 Body weight 78.02 kg Samuel Dinh MD Work Phone: [facility] 12-22-2022 13:53-0400 Diastolic blood pressure 65 mm[Hg] Samuel Dinh MD Work Phone: [facility] 12-22-2022 13:53-0400 Heart rate 81 /min Samuel Dinh MD Work Phone: [facility] 12-22-2022 13:53-0400 SaO2% (BldA) [Mass fraction] 97 % Samuel Dinh MD Work Phone: [facility] 12-22-2022 13:53-0400 Systolic blood pressure 167 mm[Hg] Samuel Dinh MD Work Phone: [facility] 12-22-2022 10:41-0400 Body height 154.9 cm Micki Parkinson DO Work Phone: [facility] 12-22-2022 10:41-0400 Body weight 78.02 kg Micki Parkinson DO Work Phone: [facility] 12-05-2022 09:10-0400 Body temperature 98.1 [degF] Dr. Benny Bosch Work Phone: [facility] 12-05-2022 09:10-0400 Diastolic blood pressure 88 mm[Hg] Dr. Benny Bosch Work Phone: [facility] 12-05-2022 09:10-0400 Heart rate 72 /min Dr. Benny Bosch Work Phone: [facility] 12-05-2022 09:10-0400 Respiratory rate 17 /min Dr. Benny Bosch Work Phone: [facility] 12-05-2022 09:10-0400 SaO2% (BldA) [Mass fraction] 97 % Dr. Benny Bosch Work Phone: [facility] 12-05-2022 09:10-0400 Systolic blood pressure 164 mm[Hg] Dr. Benny Bosch Work Phone: [facility] 12-04-2022 10:10-0400 Body height 154.[address] Benny Bosch Work Phone: [facility] 12-04-2022 10:10-0400 Body mass index (BMI) [Ratio] 32.5 kg/m2 Dr. Benny Bosch Work Phone: [facility] 12-04-2022 10:10-0400 Body temperature 98.2 [degF] Dr. Benny Bosch Work Phone: [facility] 12-04-2022 10:10-0400 Body weight 78.[address] Benny Bosch Work Phone: [facility] 12-04-2022 10:10-0400 Diastolic blood pressure 82 mm[Hg] Dr. Benny Bosch Work Phone: [facility] 12-04-2022 10:10-0400 Heart rate 79 /min Dr. Benny Bosch Work Phone: [facility] 12-04-2022 10:10-0400 Respiratory rate 18 /min Dr. Benny Bosch Work Phone: [facility] 12-04-2022 10:10-0400 SaO2% (BldA) [Mass fraction] 99 % Dr. Benny Bosch Work Phone: [facility] 12-04-2022 10:10-0400 Systolic blood pressure 160 mm[Hg] Dr. Benny Bosch Work Phone: [facility] 2022 15:00-0400 Body mass index (BMI) [Ratio] 32.2 kg/m2 Dr. Benny Bosch Work Phone: [facility] 2022 15:00-0400 Body temperature 98.3 [degF] Dr. Benny Bosch Work Phone: [facility] 2022 15:00-0400 Body weight 77.[address] Benny Bosch Work Phone: [facility] 2022 15:00-0400 Diastolic blood pressure 76 mm[Hg] Dr. Benny Bosch Work Phone: [facility] 2022 15:00-0400 Heart rate 80 /min Dr. Benny Bosch Work Phone: [facility] 2022 15:00-0400 Respiratory rate 16 /min Dr. Benny Bosch Work Phone: [facility] 2022 15:00-0400 SaO2% (BldA) [Mass fraction] 97 % Dr. Benny Bosch Work Phone: [facility] 2022 15:00-0400 Systolic blood pressure 127 mm[Hg] Dr. Benny Bosch Work Phone: [facility] 11-15-2022 13:12-0400 Body height 154.[address] Benny Bosch Work Phone: [facility] 11-15-2022 13:12-0400 Body mass index (BMI) [Ratio] 32 kg/m2 Dr. Benny Bosch Work Phone: [facility] 11-15-2022 13:12-0400 Body temperature 98.1 [degF] Dr. Benny Bosch Work Phone: [facility] 11-15-2022 13:12-0400 Body weight 76.[address] Benny Bosch Work Phone: [facility] 11-15-2022 13:12-0400 Diastolic blood pressure 78 mm[Hg] Dr. Benny Bosch Work Phone: [facility] 11-15-2022 13:12-0400 Heart rate 78 /min Dr. Benny Bosch Work Phone: [facility] 11-15-2022 13:12-0400 Respiratory rate 16 /min Dr. Benny Bosch Work Phone: [facility] 11-15-2022 13:12-0400 SaO2% (BldA) [Mass fraction] 98 % Dr. Benny Bosch Work Phone: [facility] 11-15-2022 13:12-0400 Systolic blood pressure 157 mm[Hg] Dr. Benny Bosch Work Phone: [facility] 09-17-2022 11:26-0400 Body temperature 97.8 [degF] Dr. Benny Bosch Work Phone: [facility] 09-17-2022 11:26-0400 Diastolic blood pressure 86 mm[Hg] Dr. Benny Bosch Work Phone: [facility] 09-17-2022 11:26-0400 Heart rate 87 /min Dr. Benny Bosch Work Phone: [facility] 09-17-2022 11:26-0400 Respiratory rate 16 /min Dr. Benny Bosch Work Phone: [facility] 09-17-2022 11:26-0400 SaO2% (BldA) [Mass fraction] 98 % Dr. Benny Bosch Work Phone: [facility] 09-17-2022 11:26-0400 Systolic blood pressure 186 mm[Hg] Dr. Benny Bosch Work Phone: [facility] 08-17-2022 19:55-0400 Diastolic blood pressure 139 mm[Hg] Dr. Benny Bosch Work Phone: [facility] 08-17-2022 19:55-0400 Heart rate 77 /min Dr. Benny Bosch Work Phone: [facility] 08-17-2022 19:55-0400 Respiratory rate 16 /min Dr. Benny Bosch Work Phone: [facility] 08-17-2022 19:55-0400 SaO2% (BldA) [Mass fraction] 97 % Dr. Benny Bosch Work Phone: [facility] 08-17-2022 19:55-0400 Systolic blood pressure 179 mm[Hg] Dr. Benny Bosch Work Phone: [facility] 08-17-2022 15:29-0400 Body height 160.[address] Benny Bosch Work Phone: [facility] 08-17-2022 15:29-0400 Body mass index (BMI) [Ratio] 31.1 kg/m2 Dr. Benny Bosch Work Phone: [facility] 08-17-2022 15:29-0400 Body temperature 97.8 [degF] Dr. Benny Bosch Work Phone: [facility] 08-17-2022 15:29-0400 Body weight 79.[address] Benny Bosch Work Phone: [facility] 04-07-2022 12:39-0500 Body temperature 98.2 [degF] Dr. Benny Bosch Work Phone: [facility] 04-07-2022 12:39-0500 Diastolic blood pressure 72 mm[Hg] Dr. Benny Bosch Work Phone: [facility] 04-07-2022 12:39-0500 Heart rate 71 /min Dr. Benny Bosch Work Phone: [facility] 04-07-2022 12:39-0500 Respiratory rate 16 /min Dr. Benny Bosch Work Phone: [facility] 04-07-2022 12:39-0500 SaO2% (BldA) [Mass fraction] 98 % Dr. Benny Bosch Work Phone: [facility] 04-07-2022 12:39-0500 Systolic blood pressure 168 mm[Hg] Dr. Benny Bosch Work Phone: [facility] 03-16-2022 12:01-0400 Body temperature 98.8 [degF] [facility] 03-16-2022 12:01-0400 Diastolic blood pressure 68 mm[Hg] [facility] 03-16-2022 12:01-0400 Heart rate 74 /min [facility] 03-16-2022 12:01-0400 Respiratory rate 16 /min [facility] 03-16-2022 12:01-0400 SaO2% (BldA) [Mass fraction] 95 % [facility] 03-16-2022 12:01-0400 Systolic blood pressure 146 mm[Hg] [facility] 03-16-2022 09:45-0400 Inhaled oxygen flow rate 2 L/min [facility] 03-16-2022 06:30-0400 Body height 154.94 cm [facility] 03-16-2022 06:30-0400 Body mass index (BMI) [Ratio] 35.8 kg/m2 [facility] 03-16-2022 06:30-0400 Body weight 86 kg [facility] 11-02-2021 16:04-0400 Body temperature 98.2 [degF] Dr. Benny Bosch Work Phone: [facility] Work Phone: 11-02-2021 16:04-0400 Diastolic blood pressure 74 mm[Hg] Dr. Benny Bosch Work Phone: [facility] Work Phone: 11-02-2021 16:04-0400 Heart rate 74 /min Dr. Benny Bosch Work Phone: [facility] Work Phone: 11-02-2021 16:04-0400 Respiratory rate 14 /min Dr. Benny Bosch Work Phone: [facility] Work Phone: 11-02-2021 16:04-0400 SaO2% (BldA) [Mass fraction] 97 % Dr. Benny Bosch Work Phone: [facility] Work Phone: 11-02-2021 16:04-0400 Systolic blood pressure 118 mm[Hg] Dr. Benny Bosch Work Phone: [facility] Work Phone: 09-26-2021 12:11-0400 Body temperature 98.2 [degF] Dr. Benny Bosch Work Phone: [facility] Work Phone: 09-26-2021 12:11-0400 Diastolic blood pressure 88 mm[Hg] Dr. Benny Bosch Work Phone: [facility] Work Phone: 09-26-2021 12:11-0400 Heart rate 78 /min Dr. Benny Bosch Work Phone: [facility] Work Phone: 09-26-2021 12:11-0400 Respiratory rate 18 /min Dr. Benny Bosch Work Phone: [facility] Work Phone: 09-26-2021 12:11-0400 SaO2% (BldA) [Mass fraction] 98 % Dr. Benny Bosch Work Phone: [facility] Work Phone: 09-26-2021 12:11-0400 Systolic blood pressure 154 mm[Hg] Dr. Benny Bosch Work Phone: [facility] Work Phone: Encounters Encounter Date Encounter Type Care Provider Facility Start: 03-19-2025 End: 03-19-2025 ambulatory BENNY BOSCH MD Facility:[facility] Start: 03-19-2025 End: 03-19-2025 Patient encounter procedure LEORA VILLA MD [facility] Start: 03-16-2025 ambulatory Benny Lauren y:[facility] Start: 01-27-2025 End: 01-27-2025 Emergency department patient visit Dr. Benny Bosch MD Work Phone: -Emergency Department Work Phone: Start: 12-23-2024 ambulatory Benny Bosch Facilit y:[facility] Start: 12-11-2024 End: 12-11-2024 Refill Susan Wilkinson MASCARA MOLDER.ELECTRICAL INTERN Work Phone: Hematology/Oncology Comment on above: Refill Request Start: 12-06-2024 End: 12-06-2024 Emergency department patient visit Dr. Benny Bosch MD Work Phone: -Emergency Department Work Phone: Start: 12-06-2024 End: 12-06-2024 Patient encounter procedure Brant Francois INMAN.ELECTRICAL INTERN Work Phone: [facility] Comment on above: Dizziness (Primary D x) Start: 12-06-2024 End: 12-06-2024 ambulatory BENNY BOSCH Facility:[facility] Start: 11-06-2024 End: 11-06-[address] Cong Morrison MD -[facility] Work Phone: Start: 11-06-2024 End: 11-06-[address] Benny Bosch MD Work Phone: [facility] Work Phone: Start: 10-30-2024 End: 10-30-[address] Benny Bosch MD Work Phone: [facility] Work Phone: Start: 10-30-2024 End: 10-30-[address] Leora Villa MD -[facility] Work Phone: Start: 10-30-2024 End: 10-30-2024 ambulatory Benny Bosch Facility:[facility] Start: 10-07-2024 End: 10-07-[address] Benny Bosch MD Work Phone: [facility] Work Phone: Start: 10-07-2024 End: 10-07-[address] Marshal Park DO -Outpatient Breast Imaging Work Phone: Start: 10-07-2024 End: 10-07-2024 ambulatory Benny Bosch Facility:[facility] Start: 09-02-2024 End: 09-02-[address] Benny Bosch MD Work Phone: [facility] Work Phone: Start: 09-02-2024 End: 09-02-[address] 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 Benny Bosch MD Work Phone: [facility] Work Phone: Start: 07-25-2024 End: 07-25-[address] Leora Villa MD -Laboratory, [place] Work Phone: Start: 07-25-2024 End: 07-25-2024 ambulatory Benny Bosch Facility:[facility] Start: 06-17-2024 End: 06-17-2024 Patient encounter procedure Lindsay BHATT -[facility] Work Phone: Start: 06-17-2024 End: 06-17-2024 ambulatory Benny Bosch Facility:[facility] Start: 06-03-2024 Non-patient / Non-visit Prem Sanchez DO -[facility] Start: 06-03-2024 End: 06-03-2024 Admission to same day surgery center [facility] DO -Endoscopy Work Phone: Start: 06-03-2024 End: 06-03-2024 ambulatory Benny Bosch Facility:[facility] Start: 05-26-2024 End: 05-26-[address] Bee Roldan MD -Laboratory, [place] Work Phone: Start: 05-26-2024 End: 05-26-2024 ambulatory Bee Roldan Facility:[facility] Start: 05-23-2024 Non-patient / Non-visit [facility] DO -[facility] Start: 05-23-2024 End: 05-23-2024 Admission to same day surgery [facility] DO -Endoscopy Work Phone: Start: 05-23-2024 End: 05-23-2024 ambulatory Benny Bosch Facility:[facility] Start: 05-22-2024 End: 05-22-[address] Benny Bosch MD -Nuclear Medicine, [facility] Work Phone: Start: 05-22-2024 End: 05-22-2024 ambulatory Benny Bosch Facility:[facility] Start: 05-13-2024 End: 05-13-[address] Cong Morrison MD -[facility] Work Phone: Start: 05-13-2024 End: 05-13-2024 ambulatory Benny Bosch Facility:[facility] Start: 05-02-2024 End: 05-02-2024 Patient encounter procedure Lindsay BHATT -[facility] Work Phone: Start: 05-02-2024 End: 05-02-2024 ambulatory Benny Bosch Facility:[facility] Start: 04-24-2024 End: 04-24-2024 Emergency department patient visit Dr. Hector Manzano DO -Emergency Department Work Phone: Start: 04-02-2024 End: 04-02-2024 ambulatory Benny Bosch [place] Start: 04-02-2024 End: 04-02-2024 [facility] Facility[facility] Start: 03-30-2024 End: 03-30-2024 Emergency department patient visit Miriam Leon Facility:[facility] Start: 03-27-2024 End: 03-27-2024 ambulatory [facility] Facility:[facility] Start: 03-03-2024 End: 03-03-2024 Patient encounter procedure Treatment Rm 14 Rafiq [facility] Work Phone: Hematology/Oncology Start: 03-03-2024 End: 03-03-2024 ambulatory Danay Griffin Work Phone: Hematology/Oncology Comment on above: 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, estrogen receptor positive (HCC) (Primary Dx) Start: 02-27-2024 End: 02-27-2024 ambulatory [facility] Facility:[facility] Start: 02-27-2024 End: 02-27-2024 Patient encounter procedure Alex Danielle PA-C Work Phone: [facility] Comment on above: 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, estrogen receptor positive (HCC) (Primary Dx); At risk for lymphedema Start: 01-28-2024 End: 01-28-2024 ambulatory [facility] Facility:[facility] Start: 01-28-2024 End: 01-28-2024 Patient encounter procedure Marshal Park MD Work Phone: OB/Gynecology Comment on above: Encounter for gyneco logical examination (general) (routine) without abnormal findings (Primary Dx); Encounter for screening mammogram for breast cancer Start: 01-28-2024 End: 01-28-2024 Patient encounter status Marshal Park MD Work Phone: [facility] Start: 12-19-2023 Refill Susan hernandez APRN.CNP Work Phone: Hematology/Oncology Comment on above: Refill Request Start: 12-11-2023 End: 12-11-2023 Patient encounter procedure Susan Wilkinson APRN.CNP Work Phone: Hematology/Oncology Start: 12-11-2023 End: 12-11-2023 ambulatory Susan Wilkinson APRN.CNP Work Phone: Hematology/Oncology Comment on above: 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, estrogen receptor positive (HCC) (Primary Dx) Start: 2023 Documentation procedure Mammography Coordinator [facility] Department Start: 2023 Letter encounter Mammography Coordinator [facility] Start: 11-26-2023 End: 11-26-2023 Subsequent hospital visit by physician Screen Mammo [facility] Comment on above: Breast cancer screen ing, high risk patient [Z12.39] Start: 11-07-2023 Telephone encounter Susan calderon APRN.ELECTRICAL INTERN Work Phone: Hematology/Oncology Comment on above: Electronic Communica tion Start: 09-18-2023 End: 09-18-2023 ambulatory Treatment Rm 13 Rafiq [facility] Work Phone: Hematology/Oncology Comment on above: 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 Benny Bosch Work Phone: [facility] Work Phone: Start: 08-23-2023 End: 08-23-[address] 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 Benny Bosch Work Phone: [facility] Work Phone: Start: 08-08-2023 End: 08-08-[address] 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 Benny Bosch Work Phone: [facility] Work Phone: Start: 08-01-2023 End: 08-01-[address] Benny Bosch Work Phone: [facility] Work Phone: Start: 06-28-2023 End: 06-28-[address] Benny Bosch Work Phone: [facility] Work Phone: Start: 06-28-2023 End: 06-28-[address] Benny Bosch Work Phone: [facility] Work Phone: Start: 06-28-2023 End: 06-28-[address] Benny Bosch Work Phone: [facility] Work Phone: Start: 06-21-2023 Telephone encounter Susan calderon APRN.ELECTRICAL INTERN Work Phone: Hematology/Oncology Comment on above: Medication Problem; Return Call Request Start: 06-21-2023 End: 06-21-[address] Benny Bosch Work Phone: [facility] Work Phone: Start: 05-21-2023 End: 05-21-[address] Benny Bosch Work Phone: [facility] Work Phone: Start: 05-21-2023 End: 05-21-[address] Benny Bosch Work Phone: [facility] Work Phone: Start: 05-21-2023 End: 05-21-[address] [facility] Work [facility] Start: 05-19-2023 End: 05-19-[address] Benny Bosch Work Phone: [facility] Work Phone: Start: 05-15-2023 End: 05-15-[address] Benny Bosch Work Phone: [facility] Work Phone: Start: 05-15-2023 End: 05-15-[address] 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 Benny Bosch Work Phone: [facility] Work Phone: Start: 04-03-2023 End: 04-03-2023 ambulatory Treatment Rm 13 Rafiq [facility] Work Phone: Hematology/Oncology Comment on above: [...] procedure Joy Barry MD, MD Work Phone: [facility] Start: 03-30-2023 Radiation Oncology Note Joy Barry [...] encounter procedure Dr. Benny Bosch Work Phone: [facility] Work Phone: Start: 03-13-2023 End: 03-13-2023 Patient [...] Dx) Start: 02-27-2023 End: 02-27-[address] Work Phone: [facility] Start: 02-27-2023 End: 02-27-2023 Nutrition therapy [...] procedure Joy Barry MD, MD Work Phone: [facility] Start: 02-22-2023 Radiation Oncology Note Joy Barry MD Work Phone: Radiation Oncology Comment on above: Simulation Note Treatment Planning Start: 02-22-2023 End: 02-22-2023 Nursing evaluation of patient and report Nurse Radt [facility] Work Phone: Radiation Oncology Comment on above: 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, estrogen receptor positive (HCC) (Primary Dx) Start: 02-21-2023 Orders Only Joy Barry MD Work Phone: Radiation Oncology Comment on above: 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, estrogen receptor positive (HCC) (Primary Dx) Start: 02-09-2023 End: 02-09-2023 ambulatory [facility] Facility:[facility] Start: 02-02-2023 End: 02-02-2023 ambulatory Bobby Chowdhury DO Work Phone: Hematology/Oncology Comment on above: 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, estrogen receptor positive (HCC) (Primary Dx) Start: 02-02-2023 End: 02-02-2023 Patient encounter procedure Bobby Chowdhury DO Work Phone: [facility] Comment on above: 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, estrogen receptor positive (HCC) (Primary Dx) Start: 01-26-2023 End: 01-26-2023 Patient encounter procedure Alex Danielle PA-C Work Phone: General Surgery Comment on above: 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, estrogen receptor positive (HCC) (Primary Dx) Start: 01-26-2023 End: 01-26-2023 ambulatory [facility] Facility:[facility] Start: 01-25-2023 Telephone encounter Micki Parkinson DO Work Phone: General Surgery Comment on above: Opened In Error Start: 01-19-2023 End: 01-19-2023 ambulatory BENNY BOSCH Facility:[facility] Start: 01-19-2023 End: 01-19-2023 Patient encounter procedure Alex Danielle PA-C Work Phone: General Surgery Comment on above: 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, estrogen receptor positive (HCC) (Primary Dx) Start: 01-17-2023 Orders Only Micki mills DO Work Phone: [facility] Comment on above: Malignant neoplasm o f [...] Subsequent hospital visit by physician [facility] 3 Work Phone: [facility] Comment on above: 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, estrogen receptor positive (HCC) [C50.211, Z17.0] Start: 01-08-2023 ambulatory Brandy colin LPN Work Phone: [facility] Comment on above: drain care Patient Education (R IGHT simple mastectomy, RIGHT sentinel lymph node mapping and biopsy ) Start: 01-08-2023 E-mail encounter fro m caregiver Brandy Morales LPN Work Phone: [facility] Start: 01-05-2023 End: 01-05-2023 Admission to [facility] Work Phone: [facility] Start: 01-05-2023 End: 01-05-2023 ambulatory [place] [id number] Work Phone: Pre Anesthesia Comment on above: Pre-op evaluation (P rimary Dx); Essential hypertension, benign; Pure hypercholesterolemia; Unspecified hypothyroidism; Type 2 diabetes mellitus without complication, with long-term current use of insulin (HCC); LBBB (left bundle branch block) Start: 01-05-2023 End: 01-05-2023 Preprocedural examination done [place] [id number] Work Phone: [facility] Work Phone: Start: 01-05-2023 Telephone encounter Taqueria Gracia RN General Surgery Start: 01-03-2023 End: 01-03-2023 Patient encounter procedure Alex Danielle PA-C Work Phone: [facility] Comment on above: 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, estrogen receptor positive (HCC) (Primary Dx) Start: 12-26-2022 ambulatory Micki mills DO Work Phone: [facility] Start: 12-26-2022 Telephone encounter Alex kendall PA-C Work Phone: [facility] Comment on above: 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 Start: 12-22-2022 End: 12-22-2022 ambulatory SAMUEL DINH Facility:[facility] Start: 12-22-2022 End: 12-22-2022 ambulatory MICKI PARKINSON Facility:[facility] Start: 12-22-2022 End: 12-22-2022 Patient encounter procedure Micki Parkinson DO Work Phone: General Surgery Comment on above: 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, estrogen receptor positive (HCC) (Primary Dx) Start: 12-22-2022 End: 12-22-2022 Subsequent hospital visit by physician Diagnostic Mammo [facility] Start: 12-20-2022 Telephone encounter Brandy hinson LPN Work Phone: [facility] Comment on above: Appointment Start: 12-15-2022 Orders Only Brandy colin LPN Work Phone: [facility] Comment on above: Malignant neoplasm o f female breast, unspecified estrogen receptor status, unspecified laterality, unspecified site of breast (HCC) (Primary Dx) Start: 12-13-2022 Orders Only Brandy colin LPN Work Phone: [facility] Comment on above: 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 Benny Bosch Work Phone: [facility] Work Phone: Start: 12-05-2022 End: 12-05-[address] Benny Bosch Work Phone: [facility] Work Phone: Start: 12-04-2022 End: 12-04-[address] Benny Bosch Work Phone: [facility] Work Phone: Start: 12-04-2022 End: 12-04-[address] Benny Bosch Work Phone: [facility] Work Phone: Start: 11-29-2022 End: 11-29-[address] Benny Bosch Work Phone: [facility] Work Phone: Start: 11-29-2022 End: 11-29-[address] Benny Bosch Work Phone: [facility]-Cat Scan, [facility] Work Phone: Start: [address] Benny Bosch Work Phone: [facility] Start: 2022 End: [address] Benny Bosch Work Phone: [facility] Work Phone: Start: 11-23-2022 End: 11-23-[address] Benny Bosch Work Phone: [facility] Work Phone: Start: 11-15-2022 End: 11-15-[address] Benny Bosch Work Phone: [facility] Work Phone: Start: 11-15-2022 End: 11-15-[address] Benny Bosch Work Phone: [facility]-Laboratory, Specimen Work Phone: Start: 11-15-2022 End: 11-15-[address] Benny Bosch Work Phone: [facility] Work Phone: Start: 11-10-2022 End: 11-10-[address] Benny Bosch Work Phone: [facility] Work Phone: Start: 11-10-2022 End: 11-10-[address] Benny Bosch Work Phone: [facility]-Outpatient Breast Imaging Work Phone: Start: 10-30-2022 End: 10-30-[address] Benny Bosch Work Phone: [facility] Work Phone: Start: 10-30-2022 End: 10-30-[address] Benny Bosch Work Phone: [facility] [place] Start: 09-18-2022 End: 09-18-[address] Benny Bosch Work Phone: [facility] Work Phone: Start: 09-18-2022 End: 09-18-[address] [facility] Start: 09-17-2022 End: 09-17-[address] Benny Bosch Work Phone: [facility] Start: 08-17-2022 End: 08-17-2022 Emergency department patient visit Dr. Benny [facility] Start: 08-01-2022 End: 08-01-2022 ambulatory [facility] Work Phone: Start: 08-01-2022 End: 08-01-2022 [facility] Start: 07-25-2022 End: 07-25-[address] Benny Bosch Work Phone: [facility] Work Phone: Start: 07-25-2022 End: 07-25-[address] Benny Bosch Work Phone: [facility] Start: 07-05-2022 End: 07-05-[address] Benny Bosch Work Phone: [facility] Work Phone: Start: 07-05-2022 End: 07-05-[address] Benny Bosch Work Phone: [facility] Start: 06-28-2022 End: 06-28-[address] Benny Bosch Work Phone: [facility] Work Phone: Start: 06-28-2022 End: 06-28-[address] Benny Bosch Work Phone: [facility] Start: 06-06-2022 End: 06-06-[address] Benny Bosch Work Phone: [facility] Start: 05-17-2022 End: 05-17-[address] Benny Bosch Work Phone: [facility] Work Phone: Start: 05-17-2022 End: 05-17-[address] Benny Bosch Work Phone: [facility] Start: 04-17-2022 End: 04-17-[address] Benny Bosch Work Phone: [facility] Work Phone: Start: 04-17-2022 End: 04-17-[address] Benny Bosch Work Phone: [facility] Start: 04-11-2022 End: 04-11-[address] Benny Bosch Work Phone: [facility] Work Phone: Start: 04-11-2022 End: 04-11-[address] Benny Bosch Work Phone: [facility] Start: 04-07-2022 End: 04-07-[address] Benny Bosch Work Phone: [facility] Start: 03-16-2022 End: 03-16-2022 Admission to same day surgery center [facility] Start: 03-16-2022 End: 03-16-2022 ambulatory [facility] Work Phone: Start: 03-09-2022 End: 03-16-2022 Non-patient / Non-visit Dr. Benny Bosch Work Phone: [facility] Start: 02-18-2022 End: 02-18-2022 Patient encounter procedure [facility] Start: 12-21-2021 End: 12-21-[address] Benny Bosch Work Phone: [facility]-Outpatient Bone Densitometry Start: 12-09-2021 End: 12-09-[address] Benny Bosch Work Phone[facility] Start: 11-02-2021 End: 11-02-[address] Benny Bosch Work Phone: [facility] Start: 10-05-2021 End: 10-05-[address] B[facility] Bosch [facility] Start: 09-26-2021 End: 09-26-[address] Benny Bosch Work Phone: [facility] Start: 08-19-2013 End: 08-19-2013 Refill Simba Broussard Work Phone: Dermatology Comment on above: Refill Request Procedures Date Procedure Procedure Detail Performing Clinician Start: 01-27-2025 Plain x-ray of elbow Dr Rosaura Bosch MD Work Phone: Start: 01-27-2025 Plain x-ray of humerus Dr. Benny Bosch MD Work Phone: Start: 01-27-2025 Plain X-ray of shoulder Dr. Benny Bosch MD Work Phone: Start: 12-06-2024 Urnls dip stick/tabl et reagent auto microscopy Dr. Benny Bosch MD Work Phone: Start: 12-06-[address] Benny Bosch MD Work Phone: Start: 12-06-2024 Plain radiography of pelvis Dr. Benny Bosch MD Work Phone: Start: 12-06-2024 X-ray of chest, PA a nd lateral views Dr. Benny Bosch MD Work Phone: Start: 12-06-2024 CT of head without contrast Dr. Benny Bosch MD Work Phone: Start: 12-06-[address] Benny Bosch MD Work Phone: Start: 10-30-2024 Urine microalbumin/creatinine ratio measurement Dr. [...] ast 12 lds i&r only Malia Acosta MASCARA MOLDER.ELECTRICAL INTERN Work Phone: Start: 12-22-2022 Us breast uni real t santi with image limited Micki Parkinson DO Work Phone: Start: 12-22-2022 Digital breast tomos ynthesis unilateral Mickiag Parkinson DO Work Phone: Start: 12-04-2022 Radionuclide whole b ang bone study Dr. Benny Bosch Work Phone: Start: 11-29-2022 CT of chest and abdomen Dr. Benny Bosch Work Phone: Start: 11-29-[address] Benny Bosch Work Phone: Start: 11-10-2022 Bilateral mammography D edwin Bosch Work Phone: Start: 11-10-[address] Benny Bosch Work Phone: Start: 09-17-[address] Benny oBsch Work Phone: Start: 08-17-2022 Computed tomography of [...] Work Phone: Start: 04-21-2011 Mammography Simba Urias fner Work Phone: Bacteria identified in Urine by Culture Dr. Benny Bosch Work Phone: Urine culture Dr. Benny mackay Work Phone: Urine culture Dr. Benny mackay Work Phone: Urine culture Dr. Benny mackay Work Phone: Plan of Treatment Date Care Activity Detail Author Start: 02-02-2025 End: 02-02-2025 ambulatory [facility] Comment on above: BMP(S)* OV/LAB&TREATMENT TOD AY* 2nd Start: 01-27-2025 [facility] Start: 01-12-2025 Influenza vaccination Influenza Vacc ine (#1) [facility] Start: 12-06-2024 End: 12-06-2024 [facility] Start: 12-06-2024 Bacteria identified in Urine by Culture Urine Culture [facility] Start: 08-18-2024 End: 08-18-2024 ambulatory [facility] Comment on above: BMP(S)* 2nd OV Start: 08-02-2024 Covid-19 Vaccine ( season) Covid-19 Vaccine ( season) [facility] Start: 06-03-2024 Colonoscopy w/biopsy single/multiple COLONOSCOPY AND BIOPSY [facility] Start: 06-03-2024 Patient discharge [facility] Start: 05-23-2024 Egd transoral biopsy single/multiple EGD BIOPSY SINGLE/MULTIPLE [facility] Start: 05-23-2024 Patient discharge [facility] Start: 05-14-2024 Advance Directive Discussion Advance Directive Discussion [facility] Start: 04-24-2024 [facility] Start: 04-24-2024 End: 04-24-2024 [facility] Start: 03-20-2024 BP Controlled (<130/80) BP Con trolled (<130/80) [facility] Start: 03-04-2024 End: 03-04-2024 ambulatory Hematology/Oncology Comment on above: Q6MO ZOMETA/MDCR* 3 Mo OV 2nd Start: 03-03-2024 End: 03-03-2024 ambulatory [facility] Comment on above: BMP(S)* 3 MO OV/LAB EARLY/ZO META TODAY* W[facility]INSON 2nd Start: 02-20-2024 End: 02-20-2024 Patient encounter procedure 02/20/2024 9:00 AM EDT Office Visit [facility] [id number] [place] [id number] Alex Danielle PA-C [address] [place] [address] 6 mo follow up [facility] Comment on above: 6 mo follow up Start: 02-08-2024 BP Controlled (<130/80) BP Con trolled (<130/80) [facility] Start: 01-28-2024 End: 01-28-2024 Patient encounter procedure 01/28/2024 9:40 AM EDT Office Visit OB/Gynecology [address] [place] [address] Marshal Park MD [address] [facility] [place] [address] Annual OB/Gynecology Comment on above: Annual Start: 01-13-2024 Covid-19 Vaccine ( season) Covid-19 Vaccine ( season) [facility] Start: 01-13-2024 Influenza vaccination Influenza Vacc ine (#1) [facility] Start: 12-11-2023 End: 12-11-2023 ambulatory 12/11/2023 10:00 AM EDT Visit (SP) Office Hematology/Oncology [address] [place] [address] Susan Wilkinson APRN.ELECTRICAL INTERN [address] [place] [address] 4MO OV* Hematology/Oncology Comment on above: 4MO OV* Start: 11-26-2023 End: 11-26-2023 Patient encounter procedure 11/26/2023 11:10 AM EDT Appointment Mammogram [address] [place] [address] Breast cancer screening, high risk patient [Z12.39]; Encounter for screening mammogram for malignant neoplasm of breast [Z12.31]- Location per Pt Mammogram Comment on above: Breast cancer screen ing, high risk patient [Z12.39]; Encounter for screening mammogram for malignant neoplasm of breast [Z12.31]- Location per Pt Start: 07-12-2023 Covid-19 Vaccine () Covid-19 Vaccine () [facility] Start: 07-08-2023 Hemoglobin A1c measurement HbA1C [facility] Start: 07-08-2023 Hemoglobin A1c/Hemoglobin.total in Blood HBA1C [facility] Start: 07-07-2023 Shingrix Vaccine (2 of 2) Brown grix Vaccine (2 of 2) [facility] Start: 05-14-2023 Advance Directive Discussion Advance Directive Discussion [facility] Start: 04-02-2023 End: 07-02-2023 Basic metabolic 2000 panel - Serum or Plasma BASIC METABOLIC [facility] Lab STAT Malignant neoplasm of upper-inner quadrant of right breast in female, estrogen receptor positive (HCC) Expected: 04/02/2023, Expires: 07/02/2023 [facility] Work Phone: Comment on above: Expected: 04/02/2023 , Expires: 07/02/2023 Start: 01-12-2023 Covid-19 Vaccine () Covid-19 Vaccine () [facility] Start: 01-12-2023 Influenza vaccination [facility] Start: 12-04-2022 NM Whole body Bone Views [facility] Start: 12-04-2022 Radionuclide whole b ang bone study Bone Scan Whole Body [facility] Start: 10-30-2022 Thiamine measurement [facility] Start: 10-30-2022 Vitamin B6 measurement [facility] Start: 06-14-2022 COVID-19 VACCINE (6 - Moderna series) COVID-19 VACCINE (6 - Moderna series) [facility] Start: 05-17-2022 Procedure [facility] Start: 05-14-2022 ADVANCE DIRECTIVE DISCUSSION ADVANCE DIRECTIVE DISCUSSION [facility] Start: 05-14-2022 DEPRESSION ASSESSMENT DEPRESSION ASS ESSMENT [facility] Start: 03-16-2022 Anes arthrs/endscpy dstl radius ulna/wrist/hand ANESTH LOWER ARM SURGERY [facility] Start: 03-16-2022 Injection aa&/strd axillary nerve [facility] Start: 03-16-2022 Rpr nonunion/malunio n radius/ulna w/autograft REPAIR/GRAFT RADIUS OR ULNA [facility] Start: 03-16-2022 Application of ice collar, cap or bag [facility] Start: 03-16-2022 Catheterization of vein [facility] Start: 03-16-2022 Elevation of affecte d extremity [facility] Start: 03-16-2022 Following clinical pathway protocol [facility] Start: 03-16-2022 Patient discharge [facility] Start: 03-16-2022 Procedure discontinued [facility] Start: 03-16-2022 Taking patient vital signs [facility] Start: 03-16-2022 Vital signs measurements [facility] Start: 03-16-2022 [facility] Start: 03-16-2022 Plain x-ray of wrist Wrist 2 Views [facility] Work Phone: Start: 03-16-2022 XR Wrist 2 Views [facility] Work Phone: Start: 03-16-2022 Medication education [facility] Start: 11-02-2021 Patient referral [facility] Work Phone: Start: 01-12-2021 Influenza vaccination INFLUENZ A (Season Ended) [facility] Start: 07-27-2015 PNEUMOVAX AGE 65 AND OVER WITH 5YR LOOKBACK (#1) PNEUMOVAX AGE 65 AND OVER WITH 5YR LOOKBACK (#1) [facility] Start: 04-21-2012 Mammography MAMMOGRAM [facility] Start: 07-27-2011 Pneumococcal Vaccine : 50+ (2 of 2 - PCV) Pneumococcal Vaccine: 50+ (2 of 2 - PCV) [facility] Start: 07-27-2011 Pneumococcal Vaccine : 65+ (2 - PCV) Pneumococcal Vaccine: 65+ (2 - PCV) [facility] Start: 07-27-2011 Pneumococcal Vaccine : 65+ (2 of 2 - PCV) Pneumococcal Vaccine: 65+ (2 of 2 - PCV) [facility] Start: 07-27-2011 PNEUMOCOCCAL: 65+ (2 - PCV) PNEUMOCOCCAL: 65+ (2 - PCV) [facility] Start: 2010 ADVANCE DIRECTIVE DISCUSSION ADVANCE DIRECTIVE DISCUSSION [facility] Start: 11-11-2010 Medicare Annual Well ness Visit Medicare Annual Wellness Visit [facility] Start: 2005 Hepatitis B Vaccine (1 of 3 - Risk 3-dose series) Hepatitis B Vaccine (1 of 3 - Risk 3-dose series) [facility] Start: 2005 RSV Vaccine (1 - 1-d ose 60+ series) RSV Vaccine (1 - 1-dose 60+ series) [facility] Start: 11-28-1995 Screening for malign ant neoplasm of colon [facility] Start: 11-28-1995 SHINGRIX VACCINE (1 of 2) BROWN GRIX VACCINE (1 of 2) [facility] Start: 1990 DIABETES SCREEN DIABETES SCREEN [facility] Start: 1990 LIPID SCREEN LIPID SCREEN [facility] Start: 1964 Urine microalbumin profile [facility] Start: 11-28-1963 ANNUAL PCP TEAM WATCHSTANDER KARL DISEASE VISIT ANNUAL PCP TEAM CHRONIC DISEASE VISIT [facility] Start: 11-28-1963 Anxiety Screening Anxiety Screening [facility] Start: 11-28-1963 BP CONTROLLED (<130/80) BP CON TROLLED (<130/80) [facility] Start: 11-28-1963 Hepatitis B surface antibody level LDL CHOLESTEROL [facility] Start: 11-28-1963 HEPATITIS C SCREENING [facility]IS [facility] Start: 11-28-1963 Hepatitis C screening Hepatitis C [facility] Start: 1957 Adult depression screening assessment DEPRESSION SCREENING [facility] Start: 11-28-1955 3 comp foot exam completed DIABETIC FOOT EXAM [facility] Start: 11-28-1955 Diabetic foot examination Diabetic F oot Exam [facility] Start: 11-28-1955 Glaucoma screening Dilated Retinal E xam [facility] Start: 11-28-1955 Hepatitis B screening URINE ALBUMIN:CREATININE RATIO [facility] Start: 11-28-1955 Hepatitis C antibody , confirmatory test DILATED RETINAL EXAM [facility] Start: 1950 Hemoglobin A1c/Hemoglobin.total in Blood HBA1C [facility] Start: 05-30-1946 COVID-19 VACCINE (#1) COVID-19 VACCI NE (#1) [facility] Bx/exc lymph node op en deep axillary node BX/REMV,LYMPH NODE,DEEP AXILL Procedures Routine Malignant neoplasm of upper-inner quadrant of right breast in female, estrogen receptor positive (HCC) Ordered: 12/26/2022 [facility] Work Phone: Comment on above: Ordered: 12/26/2022 CT SIM PLANNING RADI ATION ONCOLOGY CT SIM PLANN[facility] RADIATION ONCOLOGY Radiology Routine Malignant neoplasm of upper-inner quadrant of right breast in female, estrogen receptor positive (HCC) Ordered: 02/22/2023 [facility] Work Phone: Comment on above: Ordered: 02/22/2023 DBT Breast - bilater al screening EVAN SCREENING W JOVAN Radiology Routine Breast cancer screening, high risk patient Encounter for screening mammogram for malignant neoplasm of breast 11/26/2023 11:24 AM EDT [facility] Work Phone: End: 02-26-2025 DBT Breast - bilateral screening EVAN SCREENING [facility] Radiology Routine Encounter for screening mammogram for breast cancer 1 Occurrences starting 01/28/2024 until 02/26/2025 [facility] Work Phone: Comment on above: 1 Occurrences starti ng 01/28/2024 until 02/26/2025 End: 09-15-2024 DBT Breast - bilateral screening EVAN SCREENING [facility] Radiology Routine Breast cancer screening, high risk patient Encounter for screening mammogram for malignant neoplasm of breast 1 Occurrences starting 08/17/2023 until 09/15/2024 [facility] Work Phone: Comment on above: 1 Occurrences starti ng 08/17/2023 until 09/15/2024 H&P for surgery H&P FOR SURGERY Procedures Routine Malignant neoplasm of upper-inner quadrant of right breast in female, estrogen receptor positive (HCC) Ordered: 12/26/2022 [facility] Work Phone: Comment on above: Ordered: 12/26/2022 Inj radioactive trac er for id of sentinel node IDENTIFY SENTINEL NODE Procedures Routine Malignant neoplasm of upper-inner quadrant of right breast in female, estrogen receptor positive (HCC) Ordered: 12/26/2022 [facility] Work Phone: Comment on above: Ordered: 12/26/2022 Mastectomy simple complete MASTECTOMY, SIMPLE, COMPLETE Procedures Routine Malignant neoplasm of upper-inner quadrant of right breast in female, estrogen receptor positive (HCC) Ordered: 12/26/2022 [facility] Work Phone: Comment on above: Ordered: 12/26/2022 End: 01-27-2024 NM INJ SENTINEL NODE BREAST RIGHT NM INJ SENTINEL NODE BREAST RIGHT Radiology Routine Malignant neoplasm of upper-inner quadrant of right breast in female, estrogen receptor positive (HCC) 1 Occurrences starting 12/26/2022 until 01/27/2024 [facility] Work Phone: Comment on above: 1 Occurrences starti ng 12/26/2022 until 01/27/2024 NM INJ SENTINEL NODE BREAST RIGHT NM INJ SENTINEL NODE BREAST RIGHT Radiology Routine Malignant neoplasm of upper-inner quadrant of right breast in female, estrogen receptor positive (HCC) 01/09/2023 3:01 PM EDT [facility] Work Phone: OUTSIDE SURG PATH SL JL REVIEW OUTSIDE SURG PATH SLIDE REVIEW Lab Routine Ordered: 12/13/2022 [facility] Work Phone: Comment on above: Ordered: 12/13/2022 Patient Education [facility] Work Phone: Patient referral [facility] Work Phone: PT education noc individ PT EDUC ATION NOC INDIVID Procedures Routine Malignant neoplasm of upper-inner quadrant of right breast in female, estrogen receptor positive (HCC) Ordered: 12/26/2022 [facility] Work Phone: Comment on above: Ordered: 12/26/2022 Serum immunofixation [facility] Urinalysis complete panel - Urine [facility] Urinalysis complete panel - Urine [facility] Urine culture [facility] Urine immunofixation [facility] Immunizations Immunization Date Immunization Notes Care Provider Codie faulkner 02-03-2024 influenza virus vaccine, unspecified formulation Brant Arango APRN.CNP Work Phone: [facility] 03-11-2023 influenza virus vaccine, unspecified formulation Screen [facility] 02-11-2022 influenza virus vaccine, unspecified formulation Micki Parkinson DO Work Phone: [facility] 07-28-2020 SARS-CoV-2 (COVID-19 ) [id number] vaccine; Translations: [Moderna COVID-19 Vaccine] LEORA VILLA MD [facility] 06-30-2020 SARS-CoV-2 (COVID-19 ) mRNA-1273 vaccine; Translations: [Moderna COVID-19 Vaccine] LEORA VILLA MD [facility] 07-26-2010 pneumococcal polysaccharide vaccine, 23 valent Simba Broussard Work Phone: [facility] Payers Date Payer Category Payer Private Health Insurance afa [id number] 2024 Self-pay [id number] 2018 [facility] ANTHEM ME DICARE SUPPLEMENT [id number] 2018 Unknown ANTHEM ANTHEM ME DICARE SUPPLEMENT [id number] 2018-Present [phone] [address] [place] [address] Indemnity [id number] 2018 Unknown [id number] 2016 Unknown [id number] 2011 Unknown PRIMETIME PRIMET SANTI HMO POS [id number] 2011-Present HMO [id number] 2010 Medicare [id number]. [id number] 2010 Medicare [id number] 1945 Unknown [id number] 2.16.840.1.234471.3.579. 2.627 Unknown [id number] 2.16.840.1.157278.3.579. 2.462 Unknown [id number] 2.840.1.442300.3.579. 2.462 Unknown [id number] 2.16.840.1.151182.3.579. 2.462 Unknown [id number] 2.840.1.731595.3.579. 2.462 Unknown [id number] 2.840.1.505566.3.579. 2.462 Unknown [id number] 2.840.1.358099.3.579. 2.462 Unknown [id number] 2.840.1.932879.3.579. 2.462 Unknown [id number] 2.840.1.762783.3.579. 2.462 Unknown [id number] 2.840.1.416845.3.579. 2.462 Unknown [id number] 2.840.1.020380.3.579. 2.462 Unknown [id number] 2.840.1.593651.3.579. 2.462 Unknown [id number] 2.840.1.073750.3.579. 2.462 Unknown [id number] 2.840.1.991253.3.579. 2.462 Unknown [id number] 2.840.1.681661.3.579. 2.462 Unknown [id number] 2.840.1.688101.3.579. 2.462 Unknown [id number] 2.840.1.824733.3.579. 2.462 Unknown [id number] 2.840.1.859133.3.579. 2.462 Unknown [id number] 2.840.1.245437.3.579. 2.462 Unknown [id number] 2.0.1.581992.3.579. 2.462 Unknown [id number] 2.0.1.129705.3.579. 2.462 Unknown [id number] 2.0.1.634842.3.579. 2.462 Unknown [id number] 2.0.1.492798.3.579. 2.462 Unknown [id number] 2.0.1.155563.3.579. 2.462 Social History Date Type Detail Facility Start: 06-06-2012 End: 09-04-2019 Tobacco smoking status HIIS Former smoker [facility] End: 05-14-1980 History of tobacco use Current smoker [facility] Start: 06-06-2012 End: 01-28-2024 Tobacco use and exposure Never used [facility] Start: 06-06-2012 End: 08-18-2024 Alcohol intake Current drinker of alcohol (finding) [facility] Start: 04-21-2011 Alcohol Comment one a Year [facility] Start: 1945 Sex Assigned At Not on file [facility] Start: 11-02-2021 End: 06-28-2023 Tobacco smoking status [facility] Unknown if ever smoked [facility] Start: 1945 Sex Assigned At Female W [facility] End: 05-14-1980 History of tobacco use Cigarette Smoker [facility] Start: 12-28-2021 End: 12-22-2022 History of Social function [facility] Start: 12-28-2021 End: 12-22-2022 Tobacco use panel [facility] National Score (1-100), lower number is lower risk 62 [facility] Start: 07-04-2018 End: 08-03-2024 Sex Female (finding) [facility] Sexual Orientation Ranulfo H amy Trippsubhash Lynch NEGATED: Highlighted row [facility] NEGATED: Highlighted row Not [facility] Medical Equipment Procedure Code Equipment Code [...] 01-24-2019 Blood Sugar Diagnostic strip Start: 01-24-2019 See Instructions , True Metrix Test Strips. 1 TID. 1 box of 100., # 1 EA, 3 Refill(s), Pharmacy: [id number], Controlled diabetes mellitus with hyperglycemia, 155, cm, 07/24/24 14:44:00 EDT, Height, 78, kg, 07/24/24 14:44:00 EDT, Dosing Weight Start: 07-24-2024 See Instructions , Pen needles. 31G x 6mm. Use to administer insulin 4 x daily. 1 box with 3 refills. E11.65, # 1 EA, 3 Refill(s), Pharmacy: [facility], 155, cm, 07/24/24 14:44:00 EDT, Height, 78, kg, 07/24/24 14:44:00 EDT, Dosing Weight Start: 07-24-2024 USE TO INJECT INSULIN UP TO 4 TIMES A DAY Start: 09-04-2019 Goals Date Patient Goal Desired Activity /State Functional Status Date Assessment Result Facility 01-10-2023 Are you deaf, or do you have serious difficulty hearing No 01/10/2023 11:02 AM Ivonne Anderson RN No [facility] 01-10-2023 Are you blind, or do you have serious difficulty seeing, even when wearing glasses No 01/10/2023 11:02 AM Ivonne Anderson RN No [facility] 01-10-2023 Do you have serious difficulty walking or climbing stairs No 01/10/2023 11:02 AM Ivonne Anderson RN No [facility] 01-10-2023 Do you have difficul ty dressing or bathing No 01/10/2023 11:02 AM Ivonne Anderson RN No [facility] 01-10-2023 Because of a physica l, mental, or emotional condition, do you have difficulty doing errands alone such as visiting a physician's office or shopping No 01/10/2023 11:02 AM Ivonne Anderson RN No [facility] 03-16-2022 Functional status Ambulates;Bath room Privilege [facility] Work Phone: Mental Status Date Assessment Result Facility 12-06-2024 Cognitive function Level Of Cons ciousness Awake;Alert;Appropriate;Fol lows Commands [facility] Work Phone: 06-03-2024 Cognitive function Voice/Name [facility] Work Phone: 05-23-2024 Cognitive function Voice/Name [facility] Work Phone: 04-24-2024 Cognitive function Voice/Name [facility] Work Phone: 01-10-2023 Because of a physica l, mental, or emotional condition, do you have serious difficulty concentrating, remembering, or making decisions No 01/10/2023 11:02 AM Ivonne Anderson RN [facility] 03-16-2022 Cognitive function Level Of Cons ciousness Sedated [facility] Work Phone: 03-16-2022 Cognitive function Voice/Name [facility] Work Phone: Clinical Notes 09-21-2010 to 03-21-2025 Note Date & Type Note Facility 03-21-2025 Note . MICRO - Microbiology PROCEDURE: Urine Culture [O1 *1] SOURCE: Urine BODY SITE: COLLECTED DATE/TIME: 03/19/2025 15:34 EST RECEIVED DATE/TIME: 03/20/2025 14:39 EST START DATE/TIME: 03/20/2025 14:39 EST FREE TEXT SOURCE: FINAL REPORTS Final Report [] Verified Date/Time/Personnel: 03/21/2025 12:08 EST >100,000 cfu/ml Multiple bacterial morphotypes present. Probable Contamination. Suggest recollection if clinically indicated. PRELIMINARY REPORTS Preliminary Report [] Verified Date/Time/Personnel: 03/20/2025 15:59 EST Specimen received in lab. Order Comments O1: Urine Culture Added by Discern Performing Locations *1: This test was performed at: , [address] [place] [address], [address] , [facility] 01-27-2025 Discharge summary [facility] 01-27-2025 Discharge summary Note Date/Time January 27, 2025 2:44pm [facility] Medical Records Department [address] [place] [address] Emergency Department Summary 01/27/25 MR#: [id number] Acct: [id number] Name: SULEIMAN RAMSEY Rep #:[id number] : 1945 79 From: Dewey Pardo DO PCP: Dr. Benny Bosch MD Status:RE G ER Location: ED HPI History of Present Illness Chief Complaint: Upper Extremity Injury Narrative Narrative: Patient is a 79-year-old female with past medical history of hypercholesteremia,GERD, chronic kidney disease, hyperlipidemia, hypertension who presents to the emergency department the chief complaint of left shoulder and elbow pain. Patient states that around 4 AM she got up to use the restroom and states that she slipped on something causing her to fall land on her left shoulder and elbow. States that she did not hit her head she did not pass out. Patient denies any blood thinning medications. She states that the pain is not getting better therefore she came here to be further evaluated [facility] Medical History Cancer Thyroid disease Diabetes Leg [...] balancing Arthritis Thyroid disease Hypertension Home Medications ?Medication ?Instructions ?Recorded ?Last Taken ?Type levothyroxine 150 mcg tablet 150 mcg PO DAILY 12/03/14 06/03/24 08:00 History blood sugar diagnostic #100 ea 01/24/19 03/15/22 [employer] blood-glucose meter #1 ea 01/24/19 03/15/22 Hist ory metformin 500 mg tablet,extended 2,000 mg PO QHS #360 tabs 01/24/19 03/15/22 History release 24 hr insulin glargine U-300 conc 300 70 unit subcut 1730 05/23/24 History unit/mL (1.5 mL) subcutaneous pen ([employer] SoloStar U-300 Insulin) ibuprofen 400 mg tablet 400 mg PO Q6H PRN Pain 03/0803/15/22 History olmesartan 20 mg tablet (Benicar) 40 mg PO DAILY 11/1506/03/24 08:00 History cholecalciferol (vitamin D3) 50 50 mcg PO DAILY Unknown History mcg (2,000 unit) capsule diphenhydramine HCl 25 mg capsule 25 mg PO QHS PRN sle ep 11/27/22 Unknown History (Benadryl) magnesium oxide 1,600 mg PO DAILY 11/27/22 U nknown History rosuvastatin 20 mg tablet 20 mg PO DAILY 11/27/22 Unkn own History Bilateral wrist splints #2 ea 12/21/22 Unknown Rx anastrozole 1 mg tablet 1 mg PO DAILY 10/05/23 Unkno wn History insulin lispro 100 unit/mL 40 unit subcut .1/2 HR PRIO R TO 04/02/24 Unknown History subcutaneous half-unit pen MEAL (Humalog Alec Abrahan (U-100)) ondansetron HCl 4 mg tablet 4 mg PO Q8H PRN nausea and vomiting 05/30/24 Unknown History omeprazole 40 mg capsule,delayed 40 mg PO BID abdomina l pain 90 06/17/24 Unknown Rx release days #180 caps duloxetine 60 mg capsule,delayed 60 mg PO QHS #90 caps 11/07/24 Unknown Rx release pregabalin 200 mg capsule 200 mg PO BID 11/07/24 Unkno wn History cefdinir 300 mg capsule 300 mg PO BID #13 caps 12/06 Unknown Rx ondansetron 4 mg disintegrating 4 mg PO Q6H PRN nausea and 01/27/25 Unknown Rx tablet vomiting #20 tabs oxycodone-acetaminophen 5 mg-325 1 tab PO Q6H PRN pain 2 days #8 01/27/25 Unknown Rx mg tablet (Endocet) tabs Allergy/AdvReac Type Severity Reaction Status Date / Time gabapentin AdvReac Severe Other Verified 01/27/25 12:49 Family History Father Cancer lung/liver/pancreas Myocardial infarction Heart disease Grandfather Rectal cancer paternal Surgical History History of esophagogastroduodenoscopy (EGD) History of back surgery Hx of right mastectomy History of right breast biopsy (~11/2022) S/P ORIF (open reduction internal fixation) fracture Hx of arthroscopic knee surgery Hx of tubal ligation Social History housing: house Smoking Status: Former smoker alcohol intake: never ROS ROS ED ROS Narrative Constitutional: Denies any lightheadedness, dizziness, fevers, chills, headaches Eyes: Denies double vision Cardiovascular: Denies chest pain Respiratory: Denies shortness of breath Abdomen: Denies nausea vomiting diarrhea : Denies urinary symptoms Neurological: Denies any numbness, weakness, tingling Musculoskeletal: Complains of left elbow and shoulder pain as noted above Skin: Denies any rashes or lesions EXAM Physical Exam Narrative Exam Narrative: General: Patient was lying in bed did appear to be uncomfortable secondary to her left shoulder pain Head: Atraumatic, normocephalic Eyes: PERRL bilaterally, EOMI bilaterally, no conjunctival injection noted Neck: Soft, supple, trachea midline Cardiovascular: Regular rate and rhythm Respiratory: Clear to auscultation bilaterally Abdomen: Soft, nondistended, no tenderness to palpation Musculoskeletal: Patient has tenderness palpation over the left shoulder and left elbow although bony prominences palpated joints taken through full range ofmotion no pain elicited Extremities: Radial pulses +2/4 in the left upper extremities, +4/5 strength noted in the bilateral lower extremity in the right upper extremity, strength islimited in the left upper extremity secondary to her pain Neurological: Patient following commands knew that she was at [facility] year is 2024. NIH of 0 GCS 15, sensation grossly intact in the median, ulnar, radial and axillary nerve distribution bilaterally Skin: Warm, dry, intact no rashes lesions noted Const Vital Signs: 01/27/25 12:49 Temperature 97.3 F L Temperature Source Temporal Pulse Rate 90 Respiratory Rate 18 Blood Pressure 180/94 H Blood Pressure Mean 122 Pulse Ox 98 Oxygen Delivery Method Room Air MDM MDM MDM Narrative Medical decision making narrative: Patient is a 79-year-old female who presented to the emergency department with achief complaint of left shoulder pain and elbow pain after a fall. On the differential diagnose includes not limited to proximal humerus dislocation, fracture of the humerus, distal humerus fracture. Once the workup is obtained and reviewed she will be reevaluated. Patient's shoulder x-ray reviewed by myself by radiology and by myself which showed a nondisplaced impacted fracture of the surgical neck of the humerus withextension to the greater tuberosity with soft tissue swelling. Patient's humerus x-ray reviewed by myself and by radiology as well which showed the nondisplaced fracture is noted on the shoulder x-ray and her elbow x-ray reviewed by myself and by radiology showed no acute fracture or dislocation. Patient given [place] and Zofran Did discuss case with on-call orthopedic surgeon Dr. Santiago who states that the patient to be placed in a sling and follow-up. Patient given prescription for Endocet and Zofran for severe pain otherwise for her mild to moderate pain she can use Tylenol and ibuprofen. She is encouraged return if worsening symptoms or concerns. She is agreeable this plan all course concerns answered she was discharged home in stable condition. Discharge Plan Triage Chief Complaint: Upper Extremity Injury Other Complaint: Fall ED Provider: Dewey Pardo Dx/Rx/DC Orders Clinical Impression: Closed fracture of left proximal humerus, Chronic kidney disease, Fall Prescriptions: New oxycodone-acetaminophen [Endocet] 5-325 mg tablet 1 tab PO Q6H PRN (Reason: pain) 2 Days Qty: 8 0RF ondansetron 4 mg tablet,disintegrating 4 mg PO Q6H PRN (Reason: nausea and vomiting) Qty: 20 0RF No Action (DME) blood sugar diagnostic Strip See Rx Instructions .ROUTE .MEDSUPPLY Qty: 100 Patient Comments: use 1 Strip four times daily Rx Instructions: As directed metformin 500 mg tablet extended release 24 hr 2,000 mg PO QHS Qty: 360 Patient Comments: TAKE 4 TABLETS BY MOUTH ONCE DAILY AT NIGHT (DME) blood-glucose meter [facility] See Rx Instructions .ROUTE .MEDSUPPLY Qty: 1 Rx Instructions: As directed [employer] SoloStar U-300 Insulin 300 unit/mL (1.5 mL) insulin pen 70 unit subcut 1730 insulin lispro [Humalog Alec KwikPen U-100] 100 unit/mL insulin pen, half-unit 40 unit subcut .1/2 HR PRIOR TO MEAL diphenhydramine HCl [Benadryl] 25 mg capsule 25 mg PO QHS PRN (Reason: sleep) rosuvastatin 20 mg tablet 20 mg PO DAILY cholecalciferol (vitamin D3) 50 mcg (2,000 unit) capsule 50 mcg PO DAILY magnesium oxide 400 mg magnesium tablet 1,600 mg PO DAILY anastrozole 1 mg tablet 1 mg PO DAILY omeprazole 40 mg capsule,delayed release(DR/EC) 40 mg PO BID 90 Days Qty: 180 3RF Rx Instructions: x2 until 04/09 then 1 tablet QD after that duloxetine 60 mg capsule,delayed release(DR/EC) 60 mg PO QHS Qty: 90 2RF pregabalin 200 mg capsule 200 mg PO BID levothyroxine 150 MCG tablet 150 mcg PO DAILY olmesartan [Benicar] 20 mg tablet 40 mg PO DAILY Patient Comments: 1 tablet by mouth once a day ibuprofen 400 mg Tablet 400 mg PO Q6H PRN (Reason: Pain) ondansetron HCl 4 mg tablet 4 mg PO Q8H PRN (Reason: nausea and vomiting) cefdinir 300 mg capsule 300 mg PO BID Qty: 13 0RF (DME) Bilateral wrist splints See Rx Instructions .ROUTE .MEDSUPPLY Qty: 2 0RF Rx Instructions: Right and left wrist splints to be worn at night Primary Care Provider: Benny Bosch Referrals: Benny Bosch MD [Primary Care Provider] - Eamon Santiago MD [Med Staff - Active Staff] - Activity Restrictions/Additional Instructions: Use Tylenol for mild pain max dose Tylenol in 24 hours 4000 mg. Use the Endocetand Zofran for severe pain. Your x-ray did show that you broke your left shoulder. You need to follow-up with orthopedics that you referred to. Return with worsening symptoms or any concerns do not operate anything under the influence of a narcotic. Print Language: Montserratian Disposition Disposition: Home, Self Care What to do if you have Problems For any increased pain, shortness of breath, bleeding, nausea or vomiting, chestpain, or any unexpected problems, contact your Primary Care Provider. Call [facility] ([phone]) or report to the closest Emergency Room. Call 911 if necessary. 01/27/25 1444 <Electronically signed by Dewey Pardo DO> Cosigner Signature (if applicable): CC: Dr. Benny Bosch MD ~ Signed [facility] Work Phone: 1(579) 492-783409-16-2025 Radiology Diagnostic study note [facility] Imaging Services [address] [place], [place] [address] Shoulder min 2 Views MR#: [id number] Acct: [id number] Name: SULEIMAN RAMSEY Rep #: [id number] : 1945 F 79 From: Carson Russell MD PCP: Dr. Benny Bosch MD Status: RE G ER Study:Shoulder min 2 Views Date of Exam: 01/27/25 Exam# [id number] Ordering Dr: Gabriella Pardo DO PROCEDURE: SHOULDER MIN 2 VIEWS 01/27/2025 REASON FOR EXAM: FALL TECHNIQUE: Procedure Code: RADSH Modality: DX Procedure: SHOULDER MIN 2 VIEWS Laterality: Left shoulder COMPARISON: None FINDINGS: Bones: Nondisplaced impacted fracture of the proximal surgical neck of the humerus with extension of the greater tuberosity. Joints: Normal alignment. Mild degenerative changes. Soft tissues: Soft tissue swelling. Other: RAD/Shoulder min 2 Views IMPRESSION: Nondisplaced impacted fracture of the surgical neck of the humerus with extension to the greater tuberosity. Soft tissue swelling. Reading Location: [place] [address] CC: Dr. Benny Bosch MD; Dr. Dewey Pardo DO ~ Professor/Nurse Anesthetist: Signed [facility]09-16-2025 Radiology Diagnostic study note [facility] Imaging Services [address] [place], [place] [address] Humerus min 2 Views MR#: [id number] Acct: [id number] Name: SULEIMAN RAMSEY Rep #: [id number] : 1945 F 79 From: Carson Russell MD PCP: Dr. Benny Bsoch MD Status: RE G ER Study:Humerus min 2 Views Date of Exam: 01/27/25 Exam# [id number] Ordering Dr: Gabriella Pardo DO PROCEDURE: HUMERUS MIN 2 VIEWS 01/27/2025 REASON FOR EXAM: FALL TECHNIQUE: Procedure Code: RADHUM Modality: DX Procedure: HUMERUS MIN 2 VIEWS Laterality: Left shoulder COMPARISON: None FINDINGS: Bones: Impacted nondisplaced fracture of the surgical neck of the humerus with extension to the greater tuberosity. Joints: Normal alignment at the shoulder and elbow. Soft tissues: Soft tissue swelling. Other: RAD/Humerus min 2 Views IMPRESSION: Nondisplaced impacted fracture of the proximal surgical neck of the left humeruswith extension to the greater tuberosity. Soft tissue swelling. Reading Location: [place] [address] CC: Dr. Benny Bosch MD; Dr. Dewey Pardo, ~ Professor/Nurse Anesthetist: Signed [facility]09-16-2025 Radiology Diagnostic study note [facility] Imaging Services [address] [place] [address] Elbow min 3 Views MR#: [id number] Acct: [id number] Name: SULEIMAN RAMSEY Rep #: [id number] : 1945 F 79 From: Carson Russell MD PCP: Dr. Benny Bosch MD Status: RE G ER Study:Elbow min 3 Views Date of Exam: Exam# [id number] Ordering Dr: Gabriella Pardo DO PROCEDURE: ELBOW MIN 3 VIEWS 01/27/2025 REASON FOR EXAM: PAIN AFTER FALL TECHNIQUE: Procedure Code: RADEL Modality: DX Procedure: ELBOW MIN 3 VIEWS Laterality: Left elbow COMPARISON: None FINDINGS: Bones: No fracture seen. Joints: No evidence of dislocation Soft tissues: Soft tissue swelling. Other: RAD/Elbow min 3 Views IMPRESSION: No fracture. Soft tissue swelling. Reading Location: [place] [address] CC: Dr. Benny Bosch MD; Dr. Dewey Pardo DO ~ Professor/Nurse Anesthetist: Signed [facility]07-26-2025 Radiology Diagnostic study note [facility] Imaging Services [address] [place] [address] Brain/Head without Contrast MR#: [id number] Acct: [id number] Name: SULEIMAN RAMSEY Rep #: [id number] : 1945 F 79 From: Karina Camacho MD PCP: Dr. Benny Bosch MD Status: RE G ER Study:Brain/Head without Contrast Date of Exa m: 12/06/24 Exam# [id number] Ordering Dr: Stacey Griffith PROCEDURE: BRAIN/HEAD WITHOUT CONTRAST 12/06/2024 REASON FOR EXAM: HEAD INJURY TECHNIQUE: BRAIN/HEAD WITHOUT CONTRAST Coronal and Sagittal reconstruction series were provided. One or more dose reduction techniques were used (e.g., Automated exposure control, adjustment of the mA and/or kV according to patient size, use of iterative reconstruction technique. RADIATION DOSE SUMMARY: CTDlvol: 45 mGy DLP: 748 mGycm FINDINGS: There is no intracranial mass. There is no intracranial hemorrhage. No hydrocephalus. Minimal rightsphenoid mucosal thickening with small air-fluid levels CT/Brain/Head without Contrast IMPRESSION: Mild atrophy. Sphenoid sinusitis. Reading Location[facility] CC: Dr. Benny Bosch MD; NOVA Max ~ Professor/Nurse Anesthetist: Signed [facility]07-26-2025 Radiology Diagnostic study note [facility] Imaging Services [address] [place], [place] [address] Pelvis 1 or 2 Views MR#: [id number] Acct: [id number] Name: SULEIMAN RAMSEY Rep #: [id number] : 1945 F 79 From: Terry Zaragoza MD PCP: Dr. Benny Bosch MD Status: RE G ER Study:Pelvis 1 or 2 Views Date of Exam: 12/06/24 Exam# [id number] Ordering Dr: Stacey Griffith PROCEDURE: PELVIS 1 OR 2 VIEWS 12/06/2024 REASON FOR EXAM: PAIN, FALL TECHNIQUE: PELVIS 1 OR 2 VIEWS COMPARISON: None. FINDINGS: No evidence of acute fracture or dislocation. Mild bilateral hip osteoarthrosis. Partially visualized degenerative changes of the spine. RAD/Pelvis 1 or 2 Views IMPRESSION: No acute osseous abnormalities. Reading Location: [facility] CC: Dr. Benny Bosch MD; NOVA Max ~ Professor/Nurse Anesthetist: Signed [facility]07-26-2025 Radiology Diagnostic study note [facility] Imaging Services [address] [place] [id number] Chest PA and Lateral MR#: [id number] Acct: [id number] Name: SULEIMAN RAMSEY Rep #: [id number] : 1945 F 79 From: Terry Zaragoza MD PCP: Dr. Benny Bosch MD Status: [facility] ER Study:Chest PA and Lateral Date of Exam: 12/06/24 Exam# [id number] Ordering Dr: Stacey Griffith PROCEDURE: CHEST PA AND LATERAL 12/06/2024 REASON FOR EXAM: WEAKNESS, SOB TECHNIQUE: CHEST PA AND LATERAL COMPARISON: 04/24/2024. FINDINGS: The heart is normal in size. The lungs are clear. No acute osseous abnormalities. RAD/Chest PA and Lateral IMPRESSION: NO ACUTE FINDINGS. Reading Location: [facility] CC: Dr. Benny Bosch MD; NOVA Max ~ Professor/Nurse Anesthetist: Signed [facility]07-26-2025 NoteHNO ID: [id number] Author: BRANT ARANGO APRN.WHIT Service: ? Author Type: Nurse Practitioner Type: Progress Notes Filed: 12/06/2024 13:08 Note Text: Patient came in with complaints of headache dizziness and unsteadiness. Patient says she fell about a week ago did hit her head. Patient does have significant bruising to the right side. Patient says she is having a hard time remembering things. Worried about slow brain bleed. Patient is being referred to the emergency room 's cannot take her now.[facility] 12-06-2024 History of Present illness Narrative* Brant Arango APRN.WHIT - 12/06/2024 1:04 PM EDT Patient came in with complaints of headache dizziness and unsteadiness. Patient says she fell abouta week ago did hit her head. Patient does have significant bruising to the right side. Patient saysshe is having a hard time remembering things. Worried about slow brain bleed. Patient is being referred to the emergency room 's cannot take her now. [facility]* Diagnosis Onset Date Resolution Status Admit Date Polyneuropathy chronic November 06, 2024 11:49am [facility] Work Phone: 1(218) 213-917004-22-2025 Radiology Diagnostic study note [facility] Imaging Services [address] [place], [place] [id number] Shoulder min 2 Views MR#: [id number] Acct: [id number] Name: SULEIMAN RAMSEY Rep #: [id number] : 1945 F 78 From: Brown Garcia DO PCP: Dr. Benny Bosch MD Status: RE G CLI Study:Shoulder min 2 Views Date of Exam: 09/02/24 Exam# [id number] Ordering Dr: Benny Bosch MD PROCEDURE: SHOULDER [...] Views IMPRESSION: Unremarkable right shoulder. Reading Location: [id number] CC: Dr. Benny Bosch MD ~ Professor/Nurse Anesthetist: Signed [facility]04-07-2025 History of Present illness Narrative* Danay Griffin - 08/18/2024 10:00 AM EDT Suleiman Ramsey 1945 08/18/2024 HPI: Suleiman Ramsey is a 78 year old female who presents here today for follow up breast cancer. Per Dr. Chowdhury's previous note: H/o hypertension, left bundle branch block, hypercholesterolemia, hypothyroidism, diabetes, atrophic vaginitis and rosacea. Patient noted a mass in her right breast approximately 6 months prior to presentation. She was seenby her superintendent division to confirm the presence of a mass. She underwent a bilateral diagnostic mammogram with a right-sided ultrasound at [facility] 11/10/2022. The ultrasound demonstrated that the [...] 2/3. ER (clone 6F11) >95% , strong NE (clone 16/1E2) 80%, weak to moderate Her-2Neu (clone CB11) 1 - 2+ (equivocal) Patient had a CT of the chest, abdomen pelvis on 11/29/2022 at [facility]. There was a group of nodular [...] had a bone scan on 12/04/2022 at [facility]. That study demonstrated increased uptake in [...] of no special type (ductal) Histologic Grade (Dresden Histologic Score) Glandular (Acinar) / Tubular Differentiation [...] Examined (sentinel and non-sentinel) 2 Number of [place] Nodes Examined 2 pTNM CLASSIFICATION (AJCC 8th [...] positives and negatives as outlined in the intervalhistory. Past medical history, appointments, medications, allergies reviewed. [...] C50.211, Z17.0 pT3 pN0 M0 grade 3 ER/NE positive, HER2 nonamplified pathologic stage IIA invasive [...] with PCP for health maintenance Danay Griffin APRN.ELECTRICAL INTERN I spent a total of 30 minutes on the date of the service which included preparing to see the patient, [id number] patient care, completing clinical documentation, performing a [...] evaluation of this patient. documented in this encounterAd[facility]04-07-[facility]25 NoteHNO ID: [id number] Author: DANAY GRIFFIN, ? Service: ? Author [...] to presentation. She was seen by her superintendent division to confirm the presence of a mass. She underwent a bilateral diagnostic mammogram with a right-sided ultrasound at [facility] 11/10/2022. The ultrasound demonstrated that the [...] 2/3. ER (clone 6F11) >95% , strong NE (clone 16/1E2) 80%, weak to moderate Her-2Neu (clone CB11) 1 - 2+ (equivocal) Patient had a CT of the chest, abdomen pelvis on 11/29/2022 at [facility]. There was a group of nodular [...] had a bone scan on 12/04/2022 at [facility]. That study demonstrated increased uptake in [...] of no special type (ductal) Histologic Grade (D[place]den Histologic Score) Glandular (Acinar) / Tubular Differentiation Score 3 Nuclear Pleomorphism Score 2 Mitotic Rate Score 2 Overall Grade Grade 3 (scores of 8 or 9) Tumor Size Greatest dimension of largest invasive focus (Millimeters): 70 mm Ductal Carcinoma In Situ (DCIS) Present Architectural Patterns Cribriform Solid Nuclear Grade Grade III (high) Lymphatic and / or Vascular In (more content not included)...[facility]02-04-2025 Evaluation note* Diagnosis Onset Date Resolution Status Admit Date Diarrhea acute June 17, 2024 8:17am Gastric reflux acute June 172024 8:17am [facility] Work Phone: 1(718) 819-231101-21-2025 [facility] Medical Records Department [address] [place] [address] History Physical Exam 06/03/24 1246 MR#: [id number] Acct: [id number] Name: SULEIMAN RAMSEY Rep #: [id number] : 1945 78 From: Prem Friend DO PCP: Dr. Benny Bosch MD Status:[facility] Location: [place] [address] HPI - General General Date of Admission: [...] omeprazole to 40 mg BID. EGD scheduled [facility] ED 04.24.24 visit after presenting to [...] History subcutaneous half-unit pen MEAL (Humalog Alec KwikPen (U-100)) omeprazole 40 mg capsule,delayed 40 mg [...] gabapentin AdvReac Severe Other Verified 05/23/24 06:20 [facility] Medical History Cancer Thyroid disease Diabetes Leg [...] 50 50 mcg PO (more content not included)...[facility]01-10-2025 [facility] Medical Records Department [address] [place] [address] History Physical Exam 05/23/24 0638 MR#: [id number] Acct: [id number] Name: SULEIMAN RAMSEY Rep #: [id number] : 1945 78 From: Prem Friend DO PCP: Dr. Benny Bosch MD Status:[facility] Location: [place] [address] HPI - General General Date of Admission: [...] with no stigmata of bleeding. Biopsied. OV 11.20.24 w/ epigastric pain, nausea and 5lbs weight loss for one week. Hx of H. pylori infection. Started ozempic prior to symptom start. Increased omeprazole to 40 mg BID. EGD scheduled [facility] ED 04.24.24 visit after presenting to [...] she eats any food.PCP recently ordered GES. [facility] Medical History Cancer Thyroid disease Diabetes Leg [...] 05/23/24 History unit/mL (1.5 mL) subcutaneous pen (Tousloan [...] History subcutaneous half-unit pen MEAL (Humalog Alec KwikPen (U-100)) omeprazole 40 mg capsule,delayed 40 mg [...] gain or weight loss (more content not included)...[facility]12-31-2024 Evaluation note* Diagnosis Onset Date Resolution Status Admit Date Polyneuropathy chronic April 152023 1:23pm Abdominal pain acute May 232024 6:02am Gastric reflux acute May 232024 6:02am Diarrhea acute June 03, 2024 12:07pm Diarrhea acute June 17, 2024 8:17am Gastric reflux acute June 172024 8:17am [facility] Work Phone: 1(916) 893-839012-20-2024 Evaluation note* Diagnosis Onset Date Resolution Status Admit Date Epigastric abdominal pain inactive May 02, 2024 12:57pm Polyneuropathy chronic April 152023 1:23pm Abdominal pain acute May 232024 6:02am Gastric reflux acute May 232024 6:02am Diarrhea acute June 03, 2024 12:07pm Diarrhea acute June 17, 2024 8:17am Gastric reflux acute June 172024 8:17am [facility] Work Phone: 1(203) 787-765310-21-2024 NoteHNO ID: [id number] Author: DANAY GRIFFIN, ? Service: ? Author [...] to presentation. She was seen by her superintendent division to confirm the presence of a mass. She underwent a bilateral diagnostic mammogram with a right-sided ultrasound at [facility] 11/10/2022. The ultrasound demonstrated that the [...] 2/3. ER (clone 6F11) >95% , strong NE (clone 16/1E2) 80%, weak to moderate Her-2Neu (clone CB11) 1 - 2+ (equivocal) Patient had a CT of the chest, abdomen pelvis on 11/29/2022 at [facility]. There was a group of nodular [...] had a bone scan on 12/04/2022 at [facility]. That study demonstrated increased uptake in [...] and / or Vascular (more content not included)...[facility]10-21-2024 History of Present illness Narrative* Danay Griffin - 03/03/2024 8:36 AM EDT Suleiman Ramsey 1945 03/03/2024 HPI: Suleiman Ramsey is a 78 year old female who presents here today for follow up breast cancer. Per Dr. Chowdhury's previous note: H/o hypertension, left bundle branch block, hypercholesterolemia, hypothyroidism, diabetes, atrophic vaginitis and rosacea. Patient noted a mass in her right breast approximately 6 months prior to presentation. She was seenby her superintendent division to confirm the presence of a mass. She underwent a bilateral diagnostic mammogram with a right-sided ultrasound at [facility] 11/10/2022. The ultrasound demonstrated that the [...] 2/3. ER (clone 6F11) >95% , strong NE (clone 16/1E2) 80%, weak to moderate Her-2Neu (clone CB11) 1 - 2+ (equivocal) Patient had a CT of the chest, abdomen pelvis on 11/29/2022 at [facility]. There was a group of nodular [...] had a bone scan on 12/04/2022 at [facility]. That study demonstrated increased uptake in [...] Examined (sentinel and non-sentinel) 2 Number of [place] Nodes Examined 2 pTNM CLASSIFICATION (AJCC 8th [...] C50.211, Z17.0 pT3 pN0 M0 grade 3 ER/NE positive, HER2 nonamplified pathologic stage IIA invasive [...] call office with any question/concerns. Danay Griffin APRN.ELECTRICAL INTERN I spent a total of 30 minutes on the date of the service which included preparing to see the patient, [id number]-md-[id number] patient care, completing clinical documentation, performing a [...] evaluation of this patient. documented in this encounterAdams County Hospital10-16-2024 Nurse Note* Brandy Morales LPN - 02/27/2024 9:05 AM EDT Follow up Last mammogram on: 11/26/2023 bilateral Results: see report Is the patient active on [employer] Yes Electronically Signed By: Brandy Morales LPN [...] Comment: one a Year Drug use: No [facility] Work Phone: 1(735) 554-316410-16-2024 Nurse Note* Brandy Morales LPN - 02/27/2024 9:05 AM EDT Follow up Last mammogram on: 11/26/2023 bilateral Results: see report Is the patient active on [employer] Yes Electronically Signed By: Brandy Morales LPN [...] Year Drug use: No documented in this encounterAdams County Hospital10-16-2024 History of Present illness Narrative* Alex Danielle PA-C - 02/27/2024 9:00 AM EDT REASON FOR TODAY'S VISIT: Patient presents with: Established Patient HISTORY of PRESENT ILLNESS: Suleiman Drew Fly, 78 year old year old female, s/p a RIGHT mastectomy, RIGHT sentinel lymph node mapping and biopsy (no reconstruction) performed by Dr. Parkinson (Breast Surgeon) on 01/09/2023 Final pathology reports 7.0 cm IDC (margins clear), Grade 3, 0/2 LN, -LVI ER+, NE+, HER2- PATHOLOGICAL STAGE RIGHT BREAST: p,T3,N0 HISTORY: [...] DATE OF EXAM: Nov 26 2023 11:24AM [facility] - [facility] SCREENING W JOVAN / PROCEDURE REASON: multiple diagnoses * * * * Physician Interpretation * * * * RESULT: THIS REPORT HAS BEEN AMENDED. #[id number] - [facility] SCREENING W JOVAN UNILATERAL LEFT [...] dated: 11/10/2022 mammogram and 12/22/2022 mammogram - Formerly [facility], 1928–1983. There are scattered areas of fibroglandular density [...] finding letter sent: Normal - Films Compared Professor/Nurse Anesthetist: Hamzah Transcribe Date/Time: Nov 26 2023 11:01A [...] clear), Grade 3, 0/2 LN, -LVI ER+, NE+, HER2- PATHOLOGICAL STAGE RIGHT BREAST: p,T3,N0 SOZO [...] which included preparing to see the patient, [id number] patient care, completing clinical documentation, obtaining and/or reviewing separately obtained history, performing a medically appropriate examination, and counseling and educating the patient/family/caregiver. Alex Danielle PA-C cc: Micki Parkinson, DO Breast Surgeon Benny Bosch MD [address] [facility] [address] [address] documented in this encounterAdams County Hospital10-16-2024 NoteHNO ID: [id number] Author: ALEX DANIELLE PA-C Service: ? Author Type: Physician Sheet Metal Supervisor Type: Progress Notes Filed: 02/27/2024 10:38 Note [...] clear), Grade 3, 0/2 LN, -LVI ER+, NE+, HER2- PATHOLOGICAL STAGE RIGHT BREAST: p,T3,N0 HISTORY: [...] Nov 26 2023 11:24AM [facility] - [facility] SCREENING W JOVAN / PROCEDURE REASON: multiple diagnoses * * * * Physician Interpretation * * * * RESULT: THIS REPORT HAS BEEN AMENDED. #[id number] - [facility] SCREENING W JOVAN UNILATERAL LEFT [...] dated: 11/10/2022 mammogram and 12/22/2022 mammogram - [facility], [facility]. There are scattered areas of fibroglandular density [...] finding letter sent: Normal - Films Compared Professor/Nurse Anesthetist: Hamzah Transcribe Date/Time: Nov 26 2023 11:01A [...] clear), Grade 3, 0/2 LN, -LVI ER+, NE+, HER2- PATHOLOGICAL STAGE RIGHT BREAST: p,T3,N0 SOZO [...] on how to perfo (more content not included)...[facility]09-16-2024 History of Present illness Narrative* Marshal Park MD - 01/28/2024 9:29 AM EDT Clinical Data Assistant offered: Patient declines. Suleiman is a 78 year old who presents for an annual gynecologic exam without complaints. Postmenopausal: Yes Denies post menopausal bleeding HRT use: No. Last Pap: 05/03/2011 normal HPV: 02/11/2007 negative History of abnormal pap: Yes Last mammogram: 2023 History of abnormal mammogram: H/o breast cancer OB History T0 L3 SAB0 IAB0 Ectopic0 Multiple0 Live Births0 Supervisor Photocomposition History LMP: Postmenopausal Age at Menarche: Age at First : Age at Menopause: Supervisor Photocomposition History Comments: Menarche: 12; Age at 1st [...] discussed with the Patient or Patient's Authorized Program Advisor. As applicable, any other physician, advance practice provider, medical student, or other health professional student that will be observing or involved in the sensitive examination for educational or training purposes was discussed with the Patient or Authorized Program Advisor. The Patient or Authorized Program Advisor has agreed to proceed with the sensitive [...] external genitalia normal, normal Bartholin's glands, urethra, [place]-Bacavi's glands, no vulvar lesions, no cervical lesions, [...] needed Marshal Park DO documented in this encounterAdams County Hospital09-16-2024 NoteHNO ID: [id number] Author: MARSHAL PARK MD Service: ? Author Type: Physician Type: Progress Notes Filed: 01/28/2024 12:50 Note Text: Clinical Data Assistant offered: Patient declines. Suleiman is a 78 year old who presents for an annual gynecologic exam without complaints. Postmenopausal: Yes Denies post menopausal bleeding HRT use: No. Last Pap: 05/03/2011 normal HPV: 02/11/2007 negative History of abnormal pap: Yes Last mammogram: 2023 History of abnormal mammogram: H/o breast cancer OB History T0 L3 SAB0 IAB0 Ectopic0 Multiple0 Live Births0 Supervisor Photocomposition History LMP: Postmenopausal Age at Menarche: Age at First : Age at Menopause: Supervisor Photocomposition History Comments: Menarche: 12; Age at 1st [...] discussed with the Patient or Patient's Authorized Program Advisor. As applicable, any other physician, advance practice provider, medical student, or other health professional student that will be observing or involved in the sensitive examination for educational or training purposes was discussed with the Patient or Authorized Program Advisor. The Patient or Authorized Program Advisor has agreed to proceed with the sensitive [...] external genitalia normal, normal Bartholin's glands, urethra, [place]-Bacavi's glands, no vulvar lesions, no cervical lesions, [...] up one year or sooner as needed [facility] Tele[facility] encounter Note* Telephone Encounter - Susan Wilkinson APRN.CNP - 12/19/2023 12:09 PM EDT Refill done on December 10. [facility]08-[facility] Miscellaneous Notes* Telephone Encounter - Susan Wilkinson APRN.CNP - 12/19/2023 12:09 PM EDT Refill done on December 10. documented in this encounterAdams County Hospital07-30-2024 NoteHNO ID: [id number] Author: SUSAN WILKINSON APRN.CNP Service: ? Author Type: Nurse Practitioner Type: [...] to presentation. She was seen by her superintendent division to confirm the presence of a mass. She underwent a bilateral diagnostic mammogram with a right-sided ultrasound at [facility] 11/10/2022. The ultrasound demonstrated that the [...] 2/3. ER (clone 6F11) >95% , strong NE (clone 16/1E2) 80%, weak to moderate Her-2Neu (clone CB11) 1 - 2+ (equivocal) Patient had a CT of the chest, abdomen pelvis on 11/29/2022 at [facility]. There was a group of nodular [...] had a bone scan on 12/04/2022 at [facility]. That study demonstrated increased uptake in [...] of no special type (ductal) Histologic Grade (Dresden Histologic Score) Glandular (Acinar) / Tubular Differentiation Score 3 Nuclear Pleomorphism Score 2 Mitotic Rate Score 2 Overall Grade Grade 3 (scores of 8 or 9) Tumor Size Greatest dimension of largest invasive focus (Millimeters): 70 mm Ductal Carcinoma In Situ (DCIS) Present Architectural Patterns Cribriform Solid Nuclear Grade Grade III (high) (more content not included)...[facility]07-30-[facility] History of Present illness Narrative* Wilkinson, Susan, STORM.ELECTRICAL INTERN - 12/11/2023 9:36 AM EDT Chief Complaint [...] prior to presentation. She was seenby her superintendent division to confirm the presence of a mass. She underwent a bilateral diagnostic mammogram with a right-sided ultrasound at [facility] 11/10/2022. The ultrasound demonstrated that the [...] 2/3. ER (clone 6F11) >95% , strong NE (clone 16/1E2) 80%, weak to moderate Her-2Neu (clone CB11) 1 - 2+ (equivocal) Patient had a CT of the chest, abdomen pelvis on 11/29/2022 at [facility]. There was a group of nodular [...] had a bone scan on 12/04/2022 at [facility]. That study demonstrated increased uptake in [...] of no special type (ductal) Histologic Grade (Dresden Histologic Score) Glandular (Acinar) / Tubular Differentiation [...] Examined (sentinel and non-sentinel) 2 Number of [place] Nodes Examined 2 pTNM CLASSIFICATION (AJCC 8th [...] I do something and I'm wiped out. [place] this way prior to dx. Denies fevers. [...] C50.211, Z17.0 pT3 pN0 M0 grade 3 ER/NE positive, HER2 nonamplified pathologic stage IIA invasive [...] - Pt. requests est. care appt. with RN HEMODIALYSIS. - Follow up when zometa due in with BMP. - Pt. aware to call office with any question/concerns. The patient indicates understanding of these issues and agrees with the plan. All documentation from previous visit of 08/03/23-Dr. Chowdhury/myself was copied and pasted, documentation has been reviewed and edited as necessary for today's visit. Susan Wilkinson APRN.CNP documented in this encounterAdams County Hospital07-16-2024 Miscellaneous Notes* Letter - [facility] - 2023 9:20 AM EDT 2023 PID: [id number] Suleiman Ramsey [address] [place] [address] Dear Rosaura Ramsey, Your prior imaging studies have arrived [...] report will be kept on [facility] at [facility] as part of your permanent medical record and are available for your continuing care. Thank you for allowing us to help in meeting your health care needs. Sincerely, Dr. Hoffman Interpreting Radiologist [facility] (Normal Old Films compared) documented in this encounterAdams County Hospital07-16-2024 Note* Letter - Kiah Shukla - 2023 9:20 AM EDT 2023 PID: [id number] Suleiman Ramsey [address] [place] [address] Dear Ms. Ramsey, Your prior imaging studies [...] report will be kept on file at [facility] as part of your permanent medical record and are available for your continuing care. Thank you for allowing us to help in meeting your health care needs. Sincerely, Dr. Hoffman Interpreting Radiologist [facility] (Normal Old Films compared) [facility]07-15-[facility] History of Present illness Narrative* Keely Sellers Mammo Tech - 11/26/2023 11:10 AM [...] PATIENT PRESENTS WITH AN IMPLANTABLE OR ATTACHED ENTRY LEVEL ACCOUNTANT: Yes [facility] RADIOLOGY DEPARTMENT: Mammography PERIPHERAL IV DATA: Not applicable SIGNED BY: Omaira Crowell November 26, 2023 10:59 AM documented in this encounterAdams County Hospital06-26-2024 Telephone encounter Note * Telephone Encounter - María Severino LPN - 11/07/2023 11:12 AM EDT Note faxed as requested. María Severino LPN [facility]06-26-[facility] Miscellaneous Notes* Telephone Encounter - María Severino LPN - 11/07/2023 11:12 AM EDT Note faxed as requested. María Severino LPN * Telephone Encounter - Kori Mohamud - 11/07/2023 10:48 AM EDT Please fax office visit note from 08/02 to PCP office at [phone]. documented in this encounterAdams County Hospital06-26-2024 Telephone encounter Note * Telephone Encounter - Kori Mohamud - 11/07/2023 10:48 AM EDT Please fax office visit note from 08/02 to PCP office at [phone]. [facility] Work Phone: 1(502) 173-711004-05-2024 Nurse Note* Brandy Morales LPN - 08/17/2023 1:38 PM EDT Follow up Last mammogram on: 11/10/22 bilateral Results: see report Is the patient active on [employer] Yes Electronically Signed By: Brandy Morales LPN [...] Year Drug use: No documented in this encounterAdams [facility] Hospital04-05-2024 History of Present illness Narrative* Alex Danielle PA-C - 08/17/2023 1:30 PM EDT REASON FOR TODAY'S VISIT: Patient presents with: Established Patient HISTORY of PRESENT ILLNESS: Suleiman Patelton, 77 year old year old female, s/p a RIGHT mastectomy, RIGHT sentinel lymph node mapping and biopsy (No reconstruction) performed by Dr. Parkinson (Breast Surgeon) on 01/09/2023 Final pathology reports IDC, 7.0 cm (margins clear), Grade 3, 0/2 LN, -LVI ER+, NE+, HER2- PATHOLOGICAL STAGE RIGHT BREAST: p,T3,N0 Small [...] clear), Grade 3, 0/2 LN, -LVI ER+, NE+, HER2- PATHOLOGICAL STAGE RIGHT BREAST: p,T3,N0 No [...] which included preparing to see the patient, [id number]-ev-ljfq patient care, completing clinical documentation, obtaining and/or reviewing separately obtained history, performing a medically appropriate examination, counseling and educating the pat ient/family/caregiver, and ordering medications, tests, or procedures. Alex Danielle PA-C cc: Micki Parkinson, DO Breast Surgeon Benny Bosch MD [address] [facility] [address] Benny Bosch MD [address] [facility] [address] [place] [address] documented in this encounterAdams County Hospital03-22-2024 History of Present illness Narrative* Susan Wilkinson APRN.ELECTRICAL INTERN - 08/03/2023 9:16 AM EDT Chief Complaint [...] prior to presentation. She was seenby her superintendent division to confirm the presence of a mass. She underwent a bilateral diagnostic mammogram with a right-sided ultrasound at [facility] 11/10/2022. The ultrasound demonstrated that the [...] 2/3. ER (clone 6F11) >95% , strong NE (clone 16/1E2) 80%, weak to moderate Her-2Neu (clone CB11) 1 - 2+ (equivocal) Patient had a CT of the chest, abdomen pelvis on 11/29/2022 at [facility]. There was a group of nodular [...] had a bone scan on 12/04/2022 at [facility]. That study demonstrated increased uptake in [...] Examined (sentinel and non-sentinel) 2 Number of [place] Nodes Examined 2 pTNM CLASSIFICATION (AJCC 8th [...] C50.211, Z17.0 pT3 pN0 M0 grade 3 ER/NE positive, HER2 nonamplified pathologic stage IIA invasive [...] as necessary for today's visit. Susan Wilkinson APRN.CNP documented in this encounterAdams County Hospital02-09-2024 Miscellaneous Notes* Telephone Encounter - Susan Wilkinson APRN.CNP - 06/22/2023 1:17 PM EST Spoke with daughter. Pt. will hold arimidex until OV and will discuss plan at that time. Susan Wilkinson APRN.CNP * Telephone Encounter - Ruth Pearce - [...] her daughter(Gama) Left detailed message on Gama voicemail concerning pt. Holding her Arimidex and re-evaluate at next OV. Also sent information to them via my chart. Tatiana Cross LPN * Telephone Encounter - Susan Wilkinson APRN.CNP - 06/22/2023 7:40 AM EST Please advise pt. to hold arimidex until her OV. We can discuss options and her symptoms at that time. Thank you. Susan Wilkinson APRN.ELECTRICAL INTERN * Telephone Encounter - Luisana Jasso LPN [...] fatigue. Unsteady on feet. documented in this encounterAdams County Hospital12-14-2023 History of Present illness Narrative* Joy Barry MD, MD - 04/26/2023 1:22 PM EST AMBULATORY TELEPHONE VISIT Suleiman Ramsey has consented to this telephone encounter. Persons Present: patient Chief Complaint/Reason: Four week follow-up after radiation treatment. 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 It's ER positive (>90%, strong), NE positive (40%, weak to moderate) and Her2 [...] minutes Joy Barry MD documented in this encounterAdams County Hospital12-08-2023 Miscellaneous Notes* Telephone Encounter - Jesica Triplett [...] you. Susan Wilkinson APRN.WHIT documented in this encounterAdams County Hospital12-08-[facility]23 History of Present illness Narrative* Karen Briones [...] draw. Karen Briones RN documented in this encounterAdams County Hospital12-08-2023 History of Present illness Narrative* Wilkinson [place], STORM.ELECTRICAL INTERN - 04/20/2023 11:02 AM EST Chief Complaint [...] prior to presentation. She was seenby her superintendent division to confirm the presence of a mass. She underwent a bilateral diagnostic mammogram with a right-sided ultrasound at [facility] 11/10/2022. The ultrasound demonstrated that the [...] 2/3. ER (clone 6F11) >95% , strong NE (clone 16/1E2) 80%, weak to moderate Her-2Neu (clone CB11) 1 - 2+ (equivocal) Patient had a CT of the chest, abdomen pelvis on 11/29/2022 at [facility]. There was a group of nodular [...] had a bone scan on 12/04/2022 at [facility]. That study demonstrated increased uptake in [...] of no special type (ductal) Histologic Grade (Dresden Histologic Score) Glandular (Acinar) / Tubular Differentiation [...] Examined (sentinel and non-sentinel) 2 Number of [place] Nodes Examined 2 pTNM CLASSIFICATION (AJCC 8th [...] C50.211, Z17.0 pT3 pN0 M0 grade 3 ER/NE positive, HER2 nonamplified pathologic stage IIA invasive [...] as necessary for today's visit. Susan Wilkinson APRN.ELECTRICAL INTERN documented in this encounterAdams County Hospital12-08-2023 Nurse Note* Tatiana Cross LPN - 04/20/2023 10:59 AM EST Est. Pt, discuss SCP Tatiana Cross LPN documented in this encounterAdams County Hospital11-20-2023 Miscellaneous Notes* Telephone Encounter - María Severino LPN - 04/02/2023 4:41 PM EST Dental clearance received from [facility] and sent to scanning. Patient is aware to come for appointment tomorrow. María Severino LPN * Telephone Encounter - Shereen Martinez - 04/02/2023 2:42 PM EST I called [...] Leblanc Pss * Telephone Encounter - María Severino LPN - 04/02/2023 1:51 PM EST PSS- please reschedule today's missed OV to a SCP OV with Susan AFTER radiation is completed. Patient came in today and had labs, missed OV with Dr. Chowdhury. Patient is scheduled for [facility] tomorrow but does not have dental clearance. I spoke with the patient and she did have a dental cleaning last month at [facility]. Their fax machine is down so I emailed a dental clearance form to their office. Will leave appointment as scheduled and await clearance form. María Severino LPN documented in this encounterAdams County Hospital11-17-2023 Nurse Note* Elizabeth Villalta RN - 03/30/2023 10:12 AM EST Written discharge instructions given and reviewed with patient. Patient verbalizes understanding. Encouraged to call with any questions or concerns. Instruction for 4 week phone call follow up appointment given by Dr. Barry. 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 It's ER positive (>90%, strong), NE positive (40%,weak to moderate) and Her2 2+ [...] AM Electronically Signed cc: [place] [address] Bobby Parkinson documented in this encounterAdams County Hospital11-14-2023 Nurse Note* Elizabeth Villalta RN - 03/27/2023 10:13 AM EST Radiation Therapy - Nursing Note (OTV) PATIENT NAME: Suleiman Ramsey PATIENT March 27, 2023 [facility] FACILITY/LOCATION: [facility] NOTE TYPE: BREAST Subjective Data no new complaints Additional Data Do you want to see a Inbound Ingredient Logistics Specialist? No Status: Post-menopausal. Stress Scale: On a scale of 0 to 10, what number best describes how much distress you have experienced in the past week?(0 being no distress and 10 being extreme distress) 4 Social work notified: Pt denied need to see renal social worker at this time. Nursing Assessment Fatigue: had [...] by: Elizabeth Villalta RN documented in this encounterAdams County Hospital11-14-2023 History of Present illness Narrative* Joy Barry MD, MD - 03/27/2023 10:03 AM EST Radiation Oncology - On Treatment Review (OTR) Note PATIENT NAME: Suleiman Ramsey PATIENT DIAGNOSIS: Stage IIA, pT3 pN0 (sn), grade 3 invasive ductal carcinoma of the right breast s/p rightmastectomy and sentinel node biopsy on 01/09/23. It's ER positive (>90%, strong), NE positive (40%, weak to moderate) and Her2 [...] planned. Joy Barry MD documented in this encounterAdams County Hospital11-07-2023 History of Present illness Narrative* Joy Barry MD, MD - 03/20/2023 10:34 AM EST Radiation Oncology - On Treatment Review (OTR) Note PATIENT NAME: Suleiman Ramsey PATIENT DIAGNOSIS: Stage IIA, pT3 pN0 (sn), grade 3 invasive ductal carcinoma of the right breast s/p rightmastectomy and sentinel node biopsy on 01/09/23. It's ER positive (>90%, strong), NE positive (40%, weak to moderate) and Her2 [...] planned. Joy Barry MD documented in this encounterAdams County Hospital11-07-2023 Nurse Note* Elizabeth Villalta RN - 03/20/2023 10:28 AM EST Radiation Therapy - Nursing Note (OTV) PATIENT NAME: Suleiman Ramsey PATIENT March 20, 2023 [facility] FACILITY/LOCATION: [facility] NOTE TYPE: BREAST Subjective Data c/o some irritation in upper axiliary region thinks it is from bra she wears Additional Data Do you want to see a Inbound Ingredient Logistics Specialist? No Status: Post-menopausal. Stress Scale: On a scale of 0 to 10, what number best describes how much distress you have experienced in the past week?(0 being no distress and 10 being extreme distress) 4 Social work notified: Pt denied need to see renal social worker at this time. Nursing Assessment Fatigue: moderate; [...] by: Elizabeth Villalta RN documented in this encounterAdams County Hospital10-31-2023 Nurse Note* Elizabeth Villalta RN - 03/13/2023 10:14 AM EDT Radiation Therapy - Nursing Note (OTV) PATIENT NAME: Suleiman Ramsey PATIENT March 13, 2023 [facility] FACILITY/LOCATION: [facility] NOTE TYPE: BREAST Subjective Data concerned about a lump under scar in axilla region thinks it has been there Additional Data Do you want to see a Inbound Ingredient Logistics Specialist? Yes scheduled today Status: Post-menopausal. Stress Scale: On a scale of 0 to 10, what number best describes how much distress you have experienced in the past week?(0 being no distress and 10 being extreme distress) 4 Social work notified: Pt denied need to see renal social worker at this time. Nursing Assessment Fatigue: increased [...] by: Elizabeth Villalta RN documented in this encounterAdams County Hospital10-31-2023 History of Present illness Narrative* Joy Barry MD, MD - 03/13/2023 10:13 AM EDT Radiation Oncology - On Treatment Review (OTR) Note PATIENT NAME: Suleiman Ramsey PATIENT DIAGNOSIS: Stage IIA, pT3 pN0 (sn), grade 3 invasive ductal carcinoma of the right breast s/p rightmastectomy and sentinel node biopsy on 01/09/23. It's ER positive (>90%, strong), NE positive (40%, weak to moderate) and Her2 [...] planned. Joy Barry MD documented in this encounterAdams County Hospital10-24-2023 Nurse Note* Elizabeth Villalta RN - 03/06/2023 10:30 AM EDT Radiation Therapy - Nursing Note (OTV) PATIENT NAME: Suleiman Ramsey PATIENT March 06, 2023 [facility] FACILITY/LOCATION: [facility] NOTE TYPE: BREAST Subjective Data no complaints Additional Data Do you want to see a Inbound Ingredient Logistics Specialist? No Status: Post-menopausal. Stress Scale: On a scale of 0 to 10, what number best describes how much distress you have experienced in the past week?(0 being no distress and 10 being extreme distress) 4 Social work notified: Pt denied need to see renal social worker at this time. Nursing Assessment Fatigue: increased [...] by: Elizabeth Villalta RN documented in this encounterAdams County Hospital10-24-2023 History of Present illness Narrative* Joy Barry MD, - 03/06/2023 9:57 AM EDT Radiation Oncology - On Treatment Review (OTR) Note PATIENT NAME: Suleiman Ramsey PATIENT DIAGNOSIS: Stage IIA, pT3 pN0 (sn), grade 3 invasive ductal carcinoma of the right breast s/p rightmastectomy and sentinel node biopsy on 01/09/23. It's ER positive (>90%, strong), NE positive (40%, weak to moderate) and Her2 [...] planned. Joy Barry MD documented in this encounterAdams County Hospital10-17-2023 History of Present illness Narrative* Brittany Olvera RD - 02/27/2023 2:32 PM EDT Oncology Nutrition Therapy Initial Assessment I have communicated my name and active licensure. The patient's identity and physical location wereverified at the time of this visit. Either the patient or their legal congressional representative has been informed of the risks [...] prior to presentation. She was seenby her superintendent division to confirm the presence of a mass. She underwent a bilateral diagnostic mammogram with a right-sided ultrasound at [facility] 11/10/2022. The ultrasound demonstrated that the [...] Dosing Weight: 78 kg Estimated kilocalorie needs: 6864-4630 kilocalories determined by 20-25 kcal/kg Estimated protein [...] Brittany Olvera RD, LD documented in this encounterAdams County Hospital10-17-2023 Nurse Note* Elizabeth Villalta RN - 02/27/2023 10:14 AM EDT Radiation Therapy - Nursing Note (OTV) PATIENT NAME: Suleiman Ramsey PATIENT February 27, 2023 [facility] FACILITY/LOCATION: [facility] NOTE TYPE: BREAST Subjective Data no complaints Additional Data Do you want to see a Inbound Ingredient Logistics Specialist? Yes will assist having trouble with blood sugar Status: Post-menopausal. Stress Scale: On a scale of 0 to 10, what number best describes how much distress you have experienced in the past week?(0 being no distress and 10 being extreme distress) 5 Social work notified: Pt denied need to see renal social worker at this time. Nursing Assessment Fatigue: none [...] by: Elizabeth Villalta RN documented in this encounterAdams County Hospital10-17-2023 History of Present illness Narrative* Joy Barry MD, MD - 02/27/2023 10:11 AM EDT Radiation Oncology - On Treatment Review (OTR) Note PATIENT NAME: Suleiman Ramsey PATIENT DIAGNOSIS: Stage IIA, pT3 pN0 (sn), grade 3 invasive ductal carcinoma of the right breast s/p rightmastectomy and sentinel node biopsy on 01/09/23. It's ER positive (>90%, strong), NE positive (40%, weak to moderate) and Her2 [...] planned. Joy Barry MD documented in this encounterAdams County Hospital10-14-2023 NoteHNO ID: [id number] Author: Note, Interface Service: ? Author Type: ? Type: Progress Notes Filed: 02/24/2023 3:31 AM Note Text: Epic Scheduled Downtime: 02/24/2023 1:00:00 AM to 02/24/2023 1:28:00 [facility]10-12-2023 Nurse Note* Gracie Adam RN - 02/22/2023 11:22 AM EDT Radiation Therapy - Patient Education Note PATIENT NAME: Suleiman Ramsey PATIENT February 22, 2023 [facility] FACILITY/LOCATION: [facility] READINESS TO LEARN Cognitive Ability: Alert and [...] handouts on Department phone list, Fatigue, and [facility] instructions, XRT sheet and Aqu[employer] handout. Referral (recommendation): None, Pt denied need for social work, van service, and bilingual branch manager. Was approved? unknown Signed by: Gracie Adam, RN documented in this encounterAdams County Hospital10-12-2023 History of Present illness Narrative* Joy Barry MD, - 02/22/2023 12:00 AM EDT SULEIMAN RAMSEY [id number] 02/22/2023 [facility] Department of Radiation Oncology [facility] RADIATION ONCOLOGY SIMULATION NOTE DATE OF SIMULATION: 02/22/2023 MACHINE: Drill Map Definition CT Simulator Diagnosis: Stage IIA, pT3 pN0 (sn), grade 3 invasive ductal carcinoma of the right breast s/p rightmastectomy and sentinel node biopsy on 01/09/23. It's ER positive (>90%, strong), NE positive (40%, weak to moderate) and Her2 [...] Barry M.D./too 0:17 AM documented in this encounterAdams County Hospital10-12-2023 History of Present illness Narrative* Joy Barry MD, - 02/22/2023 12:00 AM EDT SULEIMAN RAMSEY [id number] 02/22/2023 [facility] Department of Radiation Oncology Treatment Planning [...] Barry M.D. 0:16 AM documented in this encounterAdams County Hospital09-29-2023 NoteHNO ID: [id number] Author: Alex Danielle PA-C Service: ? Author Type: Physician Sheet Metal Supervisor Type: Progress Notes Filed: 02/19/2023 2:24 PM [...] clear), Grade 3, 0/2 LN, -LVI ER+, NE+, HER2- PATHOLOGICAL STAGE RIGHT BREAST: p,T3,N0 Small [...] are any questions, concerns or problems. [facility]09-22-2023 History of Present illness Narrative* Joy Barry MD, MD - 02/02/2023 2:26 PM EDT Radiation Oncology - New Patient/Consult Note PATIENT NAME: Suleiman Ramsey PATIENT REQUESTING PROVIDER: Dr. Bobby Chowdhury DIAGNOSIS: Stage IIA, pT3 pN0 (sn), grade 3 invasive ductal carcinoma of the right breast s/p rightmastectomy and sentinel node biopsy on 01/09/23. It's ER positive (>90%, strong), NE positive (40%, weak to moderate) and Her2 [...] ductal carcinoma. It's ER positive (>90%, strong), NE positive (40%, weak to moderate) and Her2 [...] on 01/09/23. It's ER positive (>90%, strong), NE positive (40%, weak to moderate) and Her2 [...] that other personnel such as radiation therapists, data power consultant, and physicists will partici castorena in planning [...] care. Signed by: Joy Barry MD cc: Bneny Bosch MD [facility] [place] [id number] Bobby Parkinson documented in this encounterAdams County Hospital09-22-2023 Nurse Note* Gracie Adam RN - 02/02/2023 2:24 PM EDT Radiation Therapy - Nursing Note (Consult) PATIENT NAME: Suleiman Ramsey PATIENT February 02, 2023 [facility] FACILITY/LOCATION: [facility] Chief Complaint: consult Reason for visit: Consult. Referring physician: Internal provider Dr Parkinson Subjective Data: see pain assessment Additional Data Do you want to see a Inbound Ingredient Logistics Specialist? No Are you interested in information about fertility? No Status: Post-menopausal Stress Scale: On a scale of 0 to 10, what number best describes how much distress you have experienced in the past week?(0 being no distress and 10 being extreme distress) 4 Social work notified: Pt denied need to see renal social worker at this time. SIGNED by: Gracie Adam RN documented in this encounterAdams County Hospital09-22-2023 History of Present illness Narrative* Bobby Chowdhury, - 02/02/2023 1:30 PM EDT Patient referred [...] prior to presentation. She was seenby her superintendent division to confirm the presence of a mass. She underwent a bilateral diagnostic mammogram with a right-sided ultrasound at [facility] 11/10/2022. The ultrasound demonstrated that the [...] 2/3. ER (clone 6F11) >95% , strong NE (clone 16/1E2) 80%, weak to moderate Her-2Neu (clone CB11) 1 - 2+ (equivocal) Patient had a CT of the chest, abdomen pelvis on 11/29/2022 at [facility]. There was a group of nodular [...] had a bone scan on 12/04/2022 at [facility]. That study demonstrated increased uptake in [...] Examined (sentinel and non-sentinel) 2 Number of [place] Nodes Examined 2 pTNM CLASSIFICATION (AJCC 8th [...] diagnosis) Assessment: -pT3 pN0 M0 grade 3 ER/NE positive, HER2 nonamplified pathologic stage IIA invasive [...] which included preparing to see the patient, [id number] patient care, completing clinical documentation, obtaining and/or reviewing separately obtained history, performing a medically appropriate examination, counseling and educating the pat ient/family/caregiver, communicating with other HCPs (not separately reported), and communicating results to the patient/family/caregiver. Bobby Chowdhury DO documented in this encounterAdams County Hospital09-15-2023 NoteHNO ID: [id number] Author: Alex Danielle PA-C Service: ? Author Type: Physician Sheet Metal Supervisor Type: Progress Notes Filed: 01/26/2023 11:10 AM [...] questions or concerns in the interim. [facility]09-15-2023 Nurse Note* Brandy Morales LPN - [...] Year Drug use: No documented in this encounterAdams County Hospital09-15-2023 History of Present illness Narrative* Alex Danielle [...] interim. Alex Danielle PA-C documented in this encounterAdams County Hospital09-08-2023 NoteHNO ID: [id number] Author: Alex Danielle PA-C Service: ? Author Type: Physician Sheet Metal Supervisor Type: Progress Notes Filed: 01/19/2023 3:14 PM [...] of no special type (ductal) Histologic Grade (Dresden Histologic Score) Glandular (Acinar) / Tubular Differentiation [...] Examined (sentinel and non-sentinel) 2 Number of [place] Nodes Examined 2 pTNM CLASSIFICATION (AJCC 8th [...] Negative (not amplified) Testing Performed on Comment(s) Program Advisor tumor block: A18 . ASSESSMENT: Suleiman Ramsey, 77 year old year old female, s/p a RIGHT mastectomy, RIGHT sentinel lymph node mapping and biopsy (No reconstruction) performed by Dr. Parkinson (Breast Surgeon) on 01/09/2023 Final pathology reports IDC, 7.0 cm (margins clear), Grade 3, 0/2 LN, -LVI ER+, NE+, HER2- PATHOLOGICAL STAGE RIGHT BREAST: p,T3,N0 POST OPERATIVE STATUS: Uncomplicated post-operative course, Patient initially presented on with (more content not included)... [facility] [id number] Nurse Note* Brandy Morales LPN - 01/19/2023 1:20 PM EDT Post op Last mammogram on: 11/10/22 bilateral Results: see report Is the patient active on eigitalhart Yes Electronically Signed By: Brandy Morales LPN [...] Year Drug use: No documented in this encounterAdams County Hospital09-08-2023 History of Present illness Narrative* Alex Danielle [...] Examined (sentinel and non-sentinel) 2 Number of [place] Nodes Examined 2 pTNM CLASSIFICATION (AJCC 8th [...] Negative (not amplified) Testing Performed on Comment(s) Program Advisor tumor block: A18 . ASSESSMENT: Suleiman Ramsey, 77 year old year old female, s/p a RIGHT mastectomy, RIGHT sentinel lymph node mapping and biopsy (No reconstruction) performed by Dr. Parkinson (Breast Surgeon) on 01/09/2023 Final pathology reports IDC, 7.0 cm (margins clear), Grade 3, 0/2 LN, -LVI ER+, NE+, HER2- PATHOLOGICAL STAGE RIGHT BREAST: p,T3,N0 POST OPERATIVE STATUS: Uncomplicated post-operative course, Patient initially presented on with a RIGHT breast 6.8 cm span of disease @ 1:00. LN appear normal. Bx (ribbon clip) shows IDC, NG 2. ER+NE+HER2- [id number] PLAN Pathology report reviewed by (Breast Surgeon) [...] interim. Alex Danielle PA-C documented in this encounterAdams County Hospital08-31-2023 Miscellaneous Notes* Telephone Encounter - Keila Godoy RN - 01/11/2023 10:58 AM EDT BREAST HEALTH NURSE POST-OP PHONE CONTACT: Suleiman Ramsey was contacted via telephone as follow-up from recent breast surgery. I spoke withher daughter as pt was sleeping at the time of this call. TOPICS ADDRESSED: PAIN ASSESSMENT: Yes LOCATION: surgical incisions PAIN CHARACTER: aching MEDICATIONS: Took one [place] last night at [facility], otherwise Tylenol prn [...] scheduled with NOVA Armijo documented in this encounterAdams County Hospital08-30-2023 NoteEducation (GENSF) SULEIMAN RAMSEY ([id number]) 1945 F Date Time Provider Department 01/10/23 [...] (RASHAD x 1). 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 Patient [...] T36.4X5A] 09/21/2010 06/09/2012 Depre (more content not included)...[facility] [id number] NoteHNO ID: [id number] Author: Ivonne Anderson RN Service: Nursing Author Type: Registered Nurse Type: Nursing Progress Note Filed: 01/10/2023 11:03 AM Note Text: Other: 1100- RASHAD teaching provided to pt and family both verbalize understanding. [facility] New [id number] NoteHNO ID: [id number] Author: Radha Bowers RN Service: ? Author [...] (RASHAD x 1). 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 Patient has SÁNCHEZ wrap for dressing. Patient has gift bag and drain pouch. Breast nurse navigator will follow-up tomorrow by phone for post-op assessment. All questions answered. Radha Bowers, [facility]08-30-2023 NoteHNO ID: [id number] Author: Ok Connor MD Service: General Surgery [...] input(s): APTT, PT, INR in the last 42402 hours. Intake and Output: Date 01/09/23 07 - 01/10/23 0659 01/10/23 07 - 01/11/23 0659 Shift 6512-7098 1626-7373 8021-2737 24 Hour Total 8881-1998 1421-0359 9711-1389 24 Hour Total INTAKE IV 4466 647 3370 Volume (mL) (lactated ringers iv infusion) 1200 1200 Volume (mL) (lactated ringers iv infusion) 700 700 Shift Total 0219 893 0558 OUTPUT Urine Urine Not Saved. 2 x [...] pen (long acting) 56 Units SUBCUTANEOUS AT BEDTIMEEncompass Health Rehabilitation Hospital Of New [id number] History of Present illness Narrative* Radha Bowers [...] (RASHAD x 1). 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 Patient has SÁNCHEZ wrap for dressing. Patient has gift bag and drain pouch. Breast nurse navigator will follow-up tomorrow by phone for post-op assessment. All questions answered. Radha Bowers RN documented in this encounterAdams County Hospital08-30-2023 Miscellaneous Notes* Telephone Encounter - Kori Mohamud [...] able. Bobby Chowdhury DO documented in this encounterAdams County Hospital08-29-2023 NoteHNO ID: [id number] Author: Talat Valdez SRNA Service: ? Author Type: Student Type: Anesthesia Procedure Notes Filed: 01/09/2023 12:34 PM Note Text: ANESTHESIOLOGY PROCEDURE NOTE Airway General Information Procedure Start Time/Medication Administration: 01/09/2023 12:27 PM Patient location during procedure: OR Timeout Performed Pre-procedure: timeout performed Consent Obtained: Yes Patient identity confirmed: arm band and patient Staffing SALESPERSON BURIAL NEEDS: Susan Foy APRN.SALESPERSON BURIAL NEEDS SRNA: Talat Valdez SRNA Performed by: MAMTA and SALESPERSON BURIAL NEEDS Indications and Patient Condition Indications for airway [...] January 09, 2023 TIME: 12:33 PM CSN: [id number] NoteEducation (GENSF) SULEIMAN RAMSEY ([id number]) 1945 F Date Time Provider Department 01/09/23 [...] 01/05/2023 Encounter Status:Closed by RADHA BOWERS on 01/09/23[facility] 01-09-2023 NoteHNO ID: [id number] Author: Radha Bowers RN Service: ? Author [...] further educational and emotional support needs. [facility]ers[facility]-2023 NoteHNO ID: [id number] Author: Truong Richards, Nuclear ROCKI Service: Nuclear Medicine Author Type: Drafter Apprentice Type: Progress Notes Filed: 01/09/2023 12:46 PM [...] safety can be found using this link: [email or web address] SIGNATURE: Gypsy Lord PATIENT NAME: Suleiman Ramsey DATE: January 09, 2023 TIME: 12:44 PM PAGER/CONTACT #:[facility] [id number] History of Present illness Narrative* Radha Bowers [...] needs. Radha Bowers RN documented in this encounterAdams County Hospital08-29-2023 History of Present illness Narrative* Truong Richards Nuclear Tech - 01/09/2023 9:15 AM EDT RADIOLOGY SERVICE [...] 1233 PATIENT DISCHARGED TO: Ambulatory patient, left [place] department area. A Diagnostic radioactive procedure has taken place, with no further precautions necessary other than routine body substance precautions. More information regarding radiation safety can be found usingthis link: [email or web address] 20Diagnostic%20Nuclear%20Medicine%20Procedures.pdf SIGNATURE: Gypsy Lord PATIENT NAME: Suleiman Ramsey DATE: January 09, 2023 TIME: 12:44 PM PAGER/CONTACT #: documented in this encounterAdams [facility]08-28-[facility]23 Nurse Note* Brandy Morales LPN - 01/08/2023 [...] patient education: 20 minutes. documented in this encounterAdams [facility] Hospital08-25-2023 History and physical note * Malia Acosta APRN.ELECTRICAL INTERN - 01/05/2023 2:20 PM EDT HISTORY AND PHYSICAL EXAMINATION SERVICE DATE: 01/05/2023 SERVICE TIME: 3:17 PM PRIMARY CARE PHYSICIAN: Benny oBsch MD, MD REASON FOR VISIT: Suleiman Ramsey [...] Admin: COVID-19 vaccine, age 12+ yr, bivalent ([employer]-BIONTECH) 10/01/2021 Imm Admin: COVID-19 original vaccine, age 12+ yr, monovalent (PFIZER- BIONTECH - GREGG TOP) 03/10/2021 Imm Admin: COVID-19 [...] AICD/PPM, CAD, chest pain, CHF, DVT/PE, recent [place], murmur/valvular heart disease, open heart surgery and valve surgery. GI: Negative for: abdominal pain, GERD, GI bleed <30 days, hepatitis, liver disease, nausea and vomiting. : Denies kidney disease Negative for: dysuria, frequent urination, hematuria and urinary tract infection. RN HEMODIALYSIS: Negative for: vaginal bleeding. Endocrine: Positive for: [...] 422 QTC Calculation (Bazett) 455 Calculated P [place] 38 Calculated R [place] -31 Calculated T [place] 94 Impression SINUS RHYTHM WITH 1ST DEGREE AV BLOCK LEFT AXIS DEVIATION COMPLETE LEFT BUNDLE BRANCH BLOCK ABNORMAL ECG No results found for this or any previous visit (from the past 80411 hour(s)). Assessment Patient has the following medical [...] the past, viewed on prior EKG's from [employer] online charts. Cabral Activity Status Index: METS: [...] large neck Non-male patient STOP-Bang Score: 4 [id number] Score: [id number] Score: 0 ANESTHESIA FINDINGS: Intubation History: No [...] instructions and voices comprehension and compliance. SIGNATURE: Malia Acosta APRN.CNP PATIENT NAME: Suleiman Ramsey DATE: January 05, 2023 TIME: 12:12 PM PAGER/CONTACT #: documented in this encounterAdams County Hospital08-25-2023 Instructions* Patient Instructions* Malia Acosta APRN.CNP - 01/05/2023 12:12 PM EDT PATIENT PREOPERATIVE INSTRUCTIONS Micki Parkinson DO has scheduled you for your procedure at this surgery center: [facility]: [phone] --[phone] [id number]. Please check in on the1st floor at [...] Procedures: - YOU MUST HAVE A RESPONSIBLE BUSINESS SOLUTION ANALYST TAKE YOU HOME. A BUILDING STONECUTTER OR SPRAY II PAINTER CANNOT BE MADE A RESPONSIBLE BUSINESS SOLUTION ANALYST. - We recommend that a responsible person [...] Advance Directive, please fax a copy to [phone] or email to for it to be [...] into your chart that day. Malia Acosta APRN.CNP documented in this encounterAdams County Hospital08-25-2023 Miscellaneous Notes* Telephone Encounter - Taqueria Gracia RN - 01/05/2023 10:38 AM EDT Left voicemail on Gama's (Suleiman's daughter) phone with my name and number to call if she has any questions or concerns about mother's surgery Sunday. documented in this encounterAdams County Hospital08-23-2023 History of Present illness Narrative* Alex Danielle [...] is not indicated. Nuclear medicine injection for [place] node biopsies is scheduled for the day of surgery in the operating room. Reviewed her home medications and allergies. Reviewed her past medical history including hyperlipidemia, HTN, IDDM,hypothyroidism Spoke to patient's daughter Gama, states Ms Ramsey has superintendent division named Dr. Leora Villa, ([facility]). Advise to send/fax the notes with any mitzy-operative recommendations to the office. Patient reports she takes 70 units of Toujeo insulin and 30 units of Humalog after her dinner in the evening. Discussed post-operative pain medications and alternative methods of pain control. Would like any post-operative medication e-scripted to [facility] in [place]. (Pharmacy listed in [employer]) Multiple surgical questions addressed today. She is encouraged to call or send a [employer] message with any additional question or concerns. Contact numbers reviewed for her convenience. Alex Danielle PA-C documented in this encounterAdams County Hospital08-15-2023 Miscellaneous Notes* Telephone Encounter - Brandy Valenzuela - 12/26/2022 12:51 PM EDT Spoke to patient. Informed surgery information and appointments . And notes from her superintendent division. * Telephone Encounter - Brandy Valenzuela - 12/26/2022 10:10 AM EDT Spoke to patient's daughter Gama , informed patient surgery date and appointments related to herprocedure with Dr. Parkinson on 01/09 . Counter Tacker note with recommendations needed before her mother's surgery. documented in this encounterAdams County Hospital08-15-2023 Miscellaneous Notes* Telephone Encounter - Alex Danielle PA-C - 12/26/2022 9:05 AM EDT Spoke with patient who would like to proceed with RIGHT simple mastectomy, RIGHT sentinel lymph node mapping and biopsy with on 01/09/2023. Surgeon and surgical schedulers will be notified. Contact numbers reviewed for her convenience. Alex Danielle PA-C documented in this encounterAdams County Hospital08-11-2023 NoteHNO ID: [id number] Author: Samuel Dinh MD Service: ? Author Type: Physician Type: Progress Notes Filed: 12/29/2022 2:01 PM Note Text: BREAST RECONSTRUCTION EVALUATION CC: Suleiman Ramsey is a 77 year old that presents today for breast reconstruction evaluation. HPI: Suleiman Ramsey is a 77 year old female with a history of RIGHT breast cancer. Diagnosis was made at [facility] by means of ultrasound-guided core biopsy of Right breast on 11/15/2022. The pathology report showed Infiltrating Ductal Carcinoma Grade 2, ER positive, NE positive, HER2 non-amplified (FISH). She has a [...] Take one(1) tablet d (more content not included)...[id number] History of Present illness Narrative* Samuel Dinh MD - 12/22/2022 2:00 PM EDT Images from the original note were not included. BREAST RECONSTRUCTION EVALUATION CC: Suleiman Ramsey is a 77 year old that presents today for breast reconstruction evaluation. HPI: Suleiman Ramsey is a 77 year old female with a history of RIGHT breast cancer. Diagnosis was made at [facility] by means of ultrasound-guided core biopsy of Rightbreast on 11/15/2022. The pathology report showed Infiltrating Ductal Carcinoma Grade 2, ER positive,NE positive, HER2 non-amplified (FISH). She has a [...] Implant Size: 800cc Type of Implant: Tissue Senior Tax Specialist Assessment: - Would be moderate candidate for pharmacy director based reconstruction, with high risk of infection [...] mail. The patient was seen with Dr. Dnih who performed the Review of Systems and [...] 29, 2022 2:01 PM documented in this encounterAdams County Hospital08-11-2023 NoteHNO ID: [id number] Author: Micki Parkinson, DO Service: ? Author Type: Physician Type: Progress Notes Filed: 12/25/2022 8:25 AM Note Text: NEW BREAST CANCER - INITIAL SURGICAL VISIT SERVICE DATE: 12/19/2022 REFERRING PROVIDER: Dr. Rio Richards SUBJECTIVE: REASON FOR TODAY'S VISIT: Breast Cancer Evaluation HISTORY of PRESENT ILLNESS: Suleiman Ramsey is a 77 year old White female who [facility] at the request of RIGHT for an opinion regarding a new diagnosis of RIGHT breast cancer. Patient states the palpable breast mass was first noted in 6 months ago on a self breast exam. She saw her superintendent division who also palpated the mass. She was [...] cm in size. Diagnosis was made at [facility] by means of ultrasound-guided core biopsy of Right breast on 11/15/2022. The pathology report showed Infiltrating Ductal Carcinoma Grade 2, ER positive, NE positive, HER2 non-amplified (FISH). Metastatic workup with [...] tablet Take 1 (more content not included)... [facility] [id number] Nurse Note* Brandy Morales LPN - 12/22/2022 [...] work: No Is the patient active on [employer] Yes Electronically Signed By: Brandy Morales LPN [...] Year Drug use: No documented in this encounterAdams County Hospital08-11-2023 History of Present illness Narrative* Micki Parkinson DO - 12/22/2022 10:30 AM EDT NEW BREAST CANCER - INITIAL SURGICAL VISIT SERVICE DATE: 12/19/2022 REFERRING PROVIDER: Dr. Rio Richards SUBJECTIVE: REASON FOR TODAY'S VISIT: Breast Cancer Evaluation HISTORY of PRESENT ILLNESS: Suleiman Ramsey is a 77 year old White female who [facility] at the request of RIGHT for an opinion regarding a new diagnosis of RIGHT breast cancer. Patient states the palpable breast mass was first noted in 6 months ago on a self breast exam. She saw her superintendent division who also palpated the mass. She was [...] cm in size. Diagnosis was made at [facility] by means of ultrasound-guided core biopsy of Rightbreast on 11/15/2022. The pathology report showed Infiltrating Ductal Carcinoma Grade 2, ER positive,NE positive, HER2 non-amplified (FISH). Metastatic workup with [...] RESULTS: Outside [facility]ology read [facility] pending IDC grade 2 ER+ NE+ Her2 non-amplified by FISH OVERREAD FINAL DIAGNOSIS Outside case S [id number], collected 11/15/2022: Right breast, ultrasound-guided core biopsy: - Invasive ductal carcinoma, provisional histologic grade 2, measuring 13 mm in greatest dimension. - Received immunohistochemical stains show the following: ER: Positive, >90%, strong staining intensity. NE: Positive, 40%, weak to moderate staining intensity. HER2: Equivocal (2+) - Per outside report, HER2 FISH is not amplified (ratio 1.3, HER2 signal copy, 3.6) ASSESSMENT: Suleiman Ramsey is a 77 year old female with a RIGHT breast 6.8 cm span of disease @ 1:00. LN appear normal. Bx (ribbon clip) shows IDC, NG 2. ER+NE+HER2- [id number] PLAN: DIAGNOSIS: (C50.211, Z17.0) Malignant neoplasm of [...] concerns. Micki Parkinson DO, FACS Breast Surgeon [facility] Cc: Dr. Susie Yi documented in this encounterAdams County Hospital08-09-2023 Miscellaneous Notes* Telephone Encounter - Brandy Morlaes LPN - 12/20/2022 8:50 AM EDT Called and spoke to pt regarding her imaging review. Informed pt she needs a right mammogram for post clip placement. She verbalized understanding. Offered pt this Sunday at 8:30 am before she sees . pt and agreed to this time and date. Brandy Morales LPN documented in this encounterAdams County Hospital08-02-2023 Miscellaneous Notes* Telephone Encounter - Brandy Morales LPN - 12/13/2022 1:37 PM EDT Called and spoke to pt daughter regarding her moms up coming appointment with Dr. Parkinson on 12/22. Went over additional appointments she may or may not need. I maging received and what (MMG/US/MRI - radiology reviewed yet? In process from [place]. no other imaging in over 10 years Pathology slides sent / reviewed? Requested from [place] Consults: Breast psych (Ag) not at this time Med onc pt has oncologist she is est with at [place]. Rad onc no pt is thinking mastectomy Plastics requesting . I answered all questions and she thanked me for the call. Brandy Morales LPN documented in this encounterAdams County Hospital04-08-2014 Miscellaneous Notes* Telephone Encounter - Dang Keller [...] 11. Dang Keller LPN documented in this encounterAdams County Hospital05-11-2011 History of Past illness Narrative* Problem [...] of this encounter (statuses as of 09/08/2020) [facility] Narrative* Problem [...] of this encounter (statuses as of 12/13/2022) [facility] Narrative* Problem [...] of this encounter (statuses as of 12/13/2022) [facility] Narrative* Problem [...] of this encounter (statuses as of 12/15/2022) [facility] Narrative* Problem [...] of this encounter (statuses as of 12/20/2022) [facility] Narrative* Problem [...] of this encounter (statuses as of 12/25/2022) [facility] Narrative* Problem [...] of this encounter (statuses as of 12/26/2022) [facility] Narrative* Problem [...] of this encounter (statuses as of 12/26/2022) [facility] Narrative* Problem [...] of this encounter (statuses as of 12/29/2022) [facility] Narrative* Problem [...] of this encounter (statuses as of 01/03/2023) [facility] N[facility]* Problem [...] of this encounter (statuses as of 01/05/2023) [facility] Narrative* Problem [...] of this encounter (statuses as of 01/05/2023) [facility] Narrative* Problem [...] of this encounter (statuses as of 01/09/2023) [facility] Narrative* Problem [...] of this encounter (statuses as of 01/09/2023) [facility] Narrative* Problem [...] of this encounter (statuses as of 01/09/2023) [facility] Narrative* Problem [...] of this encounter (statuses as of 01/10/2023) [facility]* Problem [...] of this encounter (statuses as of 01/10/2023) [facility]* Problem [...] of this encounter (statuses as of 01/11/2023) [facility] Narrative* Problem [...] of this encounter (statuses as of 01/18/2023) [facility] Narrative* Problem [...] of this encounter (statuses as of 01/19/2023) [facility] Narr[facility]* Problem [...] of this encounter (statuses as of 01/25/2023) [facility] Narrative* Problem [...] of this encounter (statuses as of 01/26/2023) [facility]* Problem [...] of this encounter (statuses as of 02/03/2023) [facility] Narrative* Problem [...] of this encounter (statuses as of 02/06/2023) [facility]* Problem [...] of this encounter (statuses as of 02/22/2023) [facility]* Problem [...] of this encounter (statuses as of 02/22/2023) [facility]* Problem [...] of this encounter (statuses as of 02/24/2023) [facility]* Problem [...] of this encounter (statuses as of 02/27/2023) [facility]* Problem [...] of this encounter (statuses as of 02/28/2023) [facility]* Problem [...] of this encounter (statuses as of 03/06/2023) [facility]* Problem [...] of this encounter (statuses as of 03/13/2023) [facility]* Problem [...] of this encounter (statuses as of 03/21/2023) [facility]* Problem [...] of this encounter (statuses as of 03/27/2023) [facility]* Problem [...] of this encounter (statuses as of 03/30/2023) [facility]* Problem [...] of this encounter (statuses as of 03/30/2023) [facility]* Problem [...] of this encounter (statuses as of 04/03/2023) [facility]* Problem [...] of this encounter (statuses as of 04/03/2023) [facility]* Problem [...] of this encounter (statuses as of 04/04/2023) [facility]* Problem [...] of this encounter (statuses as of 04/20/2023) [facility]* Problem [...] of this encounter (statuses as of 04/20/2023) [facility]* Problem [...] of this encounter (statuses as of 04/20/2023) [facility]* Problem [...] of this encounter (statuses as of 04/27/2023) [facility]* Problem [...] of this encounter (statuses as of 06/22/2023) [facility]* Problem [...] of this encounter (statuses as of 08/03/2023) [facility]* Problem [...] of this encounter (statuses as of 08/06/2023) [facility]* Problem [...] of this encounter (statuses as of 08/17/2023) [facility]* Problem [...] of this encounter (statuses as of 08/17/2023) [facility] Future Appointments Appointment Date:06/04/2025 11:30:00 AM Scheduled Provider:LEORA VILLA MD Location:[facility] Appointment Type:ENDO OV Diagnostic Tests Pending * Urine Culture 03/19/25 Future Scheduled Tests Radiology* BD Bone Density DEXA Axial Skeleton Adult (21 yrs or older) 03/19/25 [facility] Evaluation note* Diagnosis Onset Date Resolution Status Contusion of rib on left side acute Contusion, scapular region a cute Fall acute Strain of lumbar region acut e Closed displaced comminuted fracture of shaft of left ulna acute Contusion of left wrist, initial encounter acute [facility] Work Phone: Evaluation noteNo assessment information available [facility] Work Phone: Evaluation note* Diagnosis Onset Date Resolution Status Hearing loss acute [facility] Work Phone: Evaluation note* Diagnosis Onset Date Resolution Status Urinary tract infection acut e [facility] Work Phone: Evaluation note* Diagnosis Onset Date Resolution Status Urinary tract infection acut e Abnormal mammogram of right breast acute [facility] Work Phone: Evaluation note* Diagnosis Onset Date Resolution Status Urinary tract infection acut e Breast cancer, right acute Breast cancer, right acute Neuropathy noneactive [facility] Work Phone: Evaluation note* Diagnosis Onset Date Resolution Status Urinary tract infection acut e Breast cancer, right acute Breast cancer, right acute Bilateral carpal tunnel syndrome acute Fatigue acute Polyneuropathy acute [facility] Work Phone: Evaluation note* Diagnosis Malignant neoplasm of female breast, unspecified estrogen receptor status, unspecified laterality, unspecified site of breast (HCC)- [facility] Diagnosis Malignant neoplasm of upper-inner quadrant of right breast in female, estrogen receptor positive (HCC)- Primary [facility]* Diagnosis Bilateral malignant neoplasm involving both nipple and areola in female, unspecified estrogen receptor status (HCC)- Primary Malignant neoplasm of upper-inner quadrant of right breast in female, 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, estrogen receptor positive (HCC) [facility]* Diagnosis Malignant neoplasm of upper-inner quadrant of right breast in female, estrogen receptor positive (HCC)- Primary Malignant neoplasm of upper-inner quadrant of right breast in female, estrogen receptor positive (HCC) [facility]* Diagnosis Malignant neoplasm of upper-inner quadrant of right breast in female, estrogen receptor positive (HCC)- Primary Malignant neoplasm of upper-inner quadrant of right breast in female, estrogen receptor positive (HCC) [facility]* Diagnosis Pre-op evaluation- Primary Preoperative examination, unspecified Essential hypertension, benign Pure hypercholesterolemia Unspecified hypothyroidism Type 2 diabetes mellitus without complication, with long-term current use of insulin (HCC) LBBB (left bundle branch block) Other left bundle branch block Malignant neoplasm of upper-inner quadrant of right breast in female, estrogen receptor positive (HCC) [facility]* Diagnosis Malignant neoplasm of upper-inner quadrant of right breast in female, estrogen receptor positive (HCC)- Primary documented in this encounter [facility] note* Diagnosis Malignant neoplasm of upper-inner quadrant of right breast in female, estrogen receptor positive (HCC)- [facility] Diagnosis Malignant neoplasm of upper-inner quadrant of right breast in female, estrogen receptor positive (HCC)- Primary [facility] Diagnosis Malignant neoplasm of upper-inner quadrant of right breast in female, estrogen receptor positive (HCC)- [facility] Diagnosis Malignant neoplasm of upper-inner quadrant of right breast in female, estrogen receptor positive (HCC)- Primary [facility] Diagnosis Malignant neoplasm of upper-inner quadrant of right breast in female, estrogen receptor positive (HCC)- Primary [facility] Diagnosis Malignant neoplasm of upper-inner quadrant of right breast in female, estrogen receptor positive (HCC)- [facility] Diagnosis Malignant neoplasm of upper-inner quadrant of right breast in female, estrogen receptor positive (HCC)- Primary [facility] Diagnosis Malignant neoplasm of upper-inner quadrant of right breast in female, estrogen receptor positive (HCC)- Primary [facility]* Diagnosis Malignant neoplasm of upper-inner quadrant of right breast in female, estrogen receptor positive (HCC)- Primary [facility] Diagnosis Malignant neoplasm of upper-inner quadrant of right breast in female, estrogen receptor positive (HCC)- Primary [facility] Diagnosis Malignant neoplasm of upper-inner quadrant of right breast in female, estrogen receptor positive (HCC)- Primary [facility]* Diagnosis Malignant neoplasm of upper-inner quadrant of right breast in female, estrogen receptor positive (HCC)- Primary [facility] Diagnosis Malignant neoplasm of upper-inner quadrant of right breast in female, estrogen receptor positive (HCC)- Primary [facility] Diagnosis Malignant neoplasm of upper-inner quadrant of right breast in female, estrogen receptor positive (HCC)- [facility] Malignant neoplasm of upper-inner quadrant of right breast in female, estrogen receptor positive (HCC)- [facility] Diagnosis Malignant neoplasm of upper-inner quadrant of right breast in female, estrogen receptor positive (HCC)- Primary documented in this encounter [facility] note* Diagnosis Malignant neoplasm of upper-inner quadrant of right breast in female, estrogen receptor positive (HCC)- Primary documented in this encounter [facility] note* Diagnosis Onset Date Resolution Status Urinary tract infection acut e Bilateral carpal tunnel syndrome acute Fatigue acute Polyneuropathy chronic Fatigue acute Increased urinary frequency acute [facility] Work Phone: Evaluation note* Diagnosis Onset Date Resolution Status Urinary tract infection acut e Bilateral carpal tunnel syndrome acute Fatigue acute Polyneuropathy chronic Fatigue acute Increased urinary frequency acute Fatigue acute [facility] Work Phone: Evaluation note* Diagnosis Onset Date Resolution Status Bilateral carpal tunnel syndrome acute Fatigue acute Polyneuropathy chronic Fatigue acute Increased urinary frequency acute Fatigue acute Fatigue acute Urinary tract infection acut e [facility] Work Phone: Evaluation note* Diagnosis Malignant neoplasm of upper-inner quadrant of right breast in female, estrogen receptor positive (HCC)- [facility] Diagnosis Onset Date Resolution Status Fatigue acute Increased urinary frequency acute Fatigue acute [facility]igue [facility]: [facility] Diagnosis Onset Date Resolution Status Increased urinary frequency acute Fatigue acute Fatigue [facility]* Diagnosis Malignant neoplasm of upper-inner quadrant of right breast in female, estrogen receptor positive (HCC)- Primary documented in this encounter [facility] note* Diagnosis Breast cancer screening, high risk patient Screening mammogram for high-risk patient Encounter for screening mammogram for malignant neoplasm of breast Other screening mammogram documented in this encounter [facility] note* Diagnosis Malignant neoplasm of upper-inner quadrant of right breast in female, estrogen receptor positive (HCC)- Primary documented in this encounter [facility] note* Diagnosis Pre-op evaluation- Primary Preoperative examination, unspecified Essential hypertension, benign Pure hypercholesterolemia Unspecified hypothyroidism Type 2 diabetes mellitus without complication, with long-term current use of insulin (HCC) LBBB (left bundle branch block) Other left bundle branch block Encounter for gynecological examination (general) (routine) without abnormal findings- Primary Encounter for screening mammogram for breast cancer documented in this encounter [facility] note* Diagnosis Malignant neoplasm of right female breast, unspecified estrogen receptor status, unspecified site of breast (HCC) Malignant neoplasm of upper-outer quadrant of right female breast, unspecified estrogen receptor status (HCC) documented in this encounter [facility] note* Diagnosis Pre-op evaluation- Primary [...] influencing health status documented in this encounter [facility] note* Diagnosis Pre-op evaluation- Primary Preoperative examination, unspecified Essential hypertension, benign Pure hypercholesterolemia Unspecified hypothyroidism Type 2 diabetes mellitus without complication, with long-term current use of insulin (HCC) LBBB (left bundle branch block) Other left bundle branch block Malignant neoplasm of upper-inner quadrant of right breast in female, estrogen receptor positive (HCC)- Primary documented in this encounter [facility] note* Diagnosis Pre-op evaluation- Primary Preoperative examination, unspecified Essential hypertension, benign Pure hypercholesterolemia Unspecified hypothyroidism Type 2 diabetes mellitus without complication, with long-term current use of insulin (HCC) LBBB (left bundle branch block) Other left bundle branch block Malignant neoplasm of upper-inner quadrant of right breast in female, estrogen receptor positive (HCC)- Primary documented in this encounter [facility] note* Diagnosis Breast cancer screening, high risk patient- Primary Screening mammogram for high-risk patient Encounter for screening mammogram for malignant neoplasm of breast Other screening mammogram documented in this encounter [facility] note* Diagnosis Malignant neoplasm of upper-inner quadrant of right breast in female, estrogen receptor positive (HCC)- Primary documented in this encounter [facility] note* Diagnosis Pre-op evaluation- Primary Preoperative examination, unspecified Essential hypertension, benign Pure hypercholesterolemia Unspecified hypothyroidism Type 2 diabetes mellitus without complication, with long-term current use of insulin (HCC) LBBB (left bundle branch block) Other left bundle branch block Malignant neoplasm of upper-inner quadrant of right breast in female, estrogen receptor positive (HCC)- [facility] evaluation- Primary Preoperative examination, unspecified Essential hypertension, benign Pure hypercholesterolemia Unspecified hypothyroidism Type 2 diabetes mellitus without complication, with long-term current use of insulin (HCC) LBBB (left bundle branch block) Other left bundle branch block Malignant neoplasm of upper-inner quadrant of right breast in female, estrogen receptor positive (HCC)- Primary [facility] Diagnosis Onset Date Resolution Status Admit Date Polyneuropathy chronic November 06, 2024 11:49am [facility] Work Phone: Evaluation note* Diagnosis Pre-op evaluation- Primary Preoperative examination, unspecified Essential hypertension, benign Pure hypercholesterolemia Unspecified hypothyroidism Type 2 diabetes mellitus without complication, with long-term current use of insulin (HCC) LBBB (left bundle branch block) Other left bundle branch block Dizziness- Primary Dizziness and giddiness documented in this encounter [facility] course Narrative No data available for this section [facility] Hospital Discharge instructions Additional Instructions Follow preprinted instructions from your surgeons office. 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 [facility] Work Phone: Hospital Discharge instructionsAdditional Instructions Use Tylenol for mild pain max dose Tylenol in 24 hours 4000 mg. Use the Endocet and Zofran for severe pain. Your x-ray did show that you broke your left shoulder. You need to follow-up with orthopedics that you referred to. Return with worsening symptoms or any concerns do not operate anything under the influence of a narcotic.[facility] Work Phone: Hospital Discharge instructions No data available for this section [facility] Progress note No data available for this section [facility] Reason for referral (narrative)* Outpatient Procedure (Routine) - Closed Specialty Diagnoses / Procedures Referred By Jace pereira Referred To [facility] Diagnoses Pre-op evaluation Essential hypertension, benign Pure hypercholesterolemia Unspecified hypothyroidism Type 2 diabetes mellitus without complication, with long-term current use of insulin (HCC) Procedures ECG COMPLETE ECG ROUTINE ECG W/LEAST 12 LDS W/I&R Malia Acosta APRN.CNP [address] [place] [address] [facility] [address] [place] [address] Referral ID Status Reason Start Date Expiration Date V isits Requested Visits Authorized [id number] Closed Auto-Generate d Referral 01/05/2023 01/05/2024 1 1 [facility] for referral (narrative)* Diagnostic Procedure Only (Routine) - New Request Specialty Diagnoses / Procedures Referred By Jace pereira Referred To Contact [facility] Diagnoses Encounter for screening mammogram for breast cancer Procedures EVAN SCREENING W JOVAN SCREENING DIGITAL BREAST TOMOSYNTHESIS BI SCREENING MAMMOGRAPHY BI 2-VIEW BREAST INC CAD Marshal Park MD [address] [place] [address] [facility] [address] [place] [address] Referral ID Status Reason Start Date Expiration Date Visits Requested Visits Authorized [id number] New Request Auto-Generat ed Referral 01/28/2024 02/26/2025 1 1 [facility] for referral (narrative)* Diagnostic Procedure Only (Routine) - Authorized Specialty Diagnoses / Procedures Referred By Jace pereira Referred To Contact [facility] Diagnoses Breast cancer screening, high risk patient Encounter for screening mammogram for malignant neoplasm of breast Procedures EVAN SCREENING W JOVAN SCREENING DIGITAL BREAST TOMOSYNTHESIS BI SCREENING MAMMOGRAPHY BI 2-VIEW BREAST INC CAD Alex Danielle PA-C [address] [place] [address] [facility] [address] [place] [address] Referral ID Status Reason Start Date Expiration Date Visits Requested Visits Authorized [id number] Authorized Auto-Generat ed Referral 08/17/2023 09/15/2024 1 1 [facility] for referral (narrative)No reason for referral information [facility]WT[facility] Work Phone: Reason for visit Narrative* Diagnostic Procedure Only (Routine) - Closed Specialty Diagnoses / Procedures Referred By Jace pereira Referred To Contact [facility] Diagnoses Breast cancer screening, high risk patient Encounter for screening mammogram for malignant neoplasm of breast Procedures EVAN SCREENING W JOVAN SCREENING DIGITAL BREAST TOMOSYNTHESIS BI SCREENING MAMMOGRAPHY BI 2-VIEW BREAST INC CAD Alex Danielle PA-C [address] [place] [id number] [facility] [address] [place] [address] Referral ID Status Reason Start Date Expiration Date V isits Requested Visits Authorized [id number] Closed Auto-Generate d Referral 08/17/2023 09/15/2024 1 1 [facility] Diagnostic Procedure Only (Routine) - Closed Specialty Diagnoses / Procedures Referred By Jace pereira Referred To Contact [facility] Diagnoses Malignant neoplasm of right female breast, unspecified estrogen receptor status, unspecified site of breast (HCC) Malignant neoplasm of upper-outer quadrant of right female breast, unspecified estrogen receptor status (HCC) Procedures EVAN DIAGNOSTIC RIGHT DIAGNOSTIC MAMMOGRAPHY COMPUTER[place] [address] [place] [address] [facility] [address] [place] [address] Referral ID Status Reason Start Date Expiration Date V isits Requested Visits Authorized [id number] Closed Auto-Generate d Referral 12/20/2022 01/19/2024 1 1 [facility] Summary Purpose Family History No Family [...] Date/ Time Advance Directives Yes August 09, 8:35am Living Will Yes February 16 1:48pm Power of Account Executive Sales Representative Yes February 16 1:48pm Advance Directive Response Recorded Date/ Time Name of Medical Power of Account Executive Sales Representative SPOUSE March 08, 2022 8:45am Advance Directives Yes August 09, 8:35am Living Will Yes March 08 8:45am Power of Account Executive Sales Representative Yes March 08, 2022 8:45am Advance Directive Response Recorded Date/ Time Name of Medical Power of Account Executive Sales Representative SPOUSE March 08, 2022 7:45am Advance Directives Yes August 09 7:35am Living Will Yes March 08 7:45am Power of Account Executive Sales Representative Yes March 08, 2022 7:45am Advance Directive Response Recorded Date/ Time Advance Directives Yes August 09, 8:35am Living Will Yes March 08 8:45am Power of Account Executive Sales Representative Yes March 08, 2022 8:45am Advance Directive Response Recorded Date/ Time Name of Medical Power of Account Executive Sales Representative GAMA RAMSEY - DAUGHTER August 17, 2022 4:17pm Advance Directives Yes August 09, 018 8:35am Living Will Yes August 17, 2022 4:17pm Power of Account Executive Sales Representative Yes August 17 4:17pm Advance Directive Response Recorded Date/ Time Advance Directives Yes August 09, 7:35am Living Will Yes August 17, 2022 3:17pm Power of Account Executive Sales Representative Yes August 17 3:17pm Advance Directive Response Recorded Date/ Time Advance Directives Yes August 09 8:35am Living Will Yes August 17, 2022 4:17pm Power of Account Executive Sales Representative Yes August 17 4:17pm Advance Directive Response Recorded Date/ Time Living Will Yes May 30 11:44am Do you have a Healthcare Pow er of Account Executive Sales Representative? Yes May 30, 2024 11:44am Name of Medical Power of Account Executive Sales Representative GAMA RAMSEY May 30, 2024 11:44am Living Will Yes May 21 1:26pm Do you have a Healthcare Pow er of Account Executive Sales Representative? Yes May 21, 2024 1:26pm Name of Medical Power of Account Executive Sales Representative LASHELL RAMSEY May 21, 2024 1:26pm Living Will Yes April 24 11:35am Do you have a Healthcare Pow er of Account Executive Sales Representative? Yes April 24, 2024 11:35am Name of Medical Power of Account Executive Sales Representative OR MY ELDEST DAUGHTER GAMA April 24, 2024 11:35am Advance Directives Yes August 09 8:35am Advance Directive Response Recorded Date/ Time Living Will Yes May 30 11:44am Do you have a Healthcare Power of Account Executive Sales Representative? Yes May 30, 2024 11:44am Name of Medical Power of Account Executive Sales Representative GAMA RAMSEY May 30, 2024 11:44am Living Will Yes May 21 1:26pm Do you have a Healthcare Power of Account Executive Sales Representative? Yes May 21, 2024 1:26pm Name of Medical Power of Account Executive Sales Representative LASHELL RAMSEY May 21, 2024 1:26pm Advance Directives Yes August 09 018 8:35am Advance Directive Response Recorded Date/ Time Advance Directives Yes August 09 8:35am Advance Directive Response Recorded Date/ Time Do you have a Healthcare Power of Account Executive Sales Representative? No December 06, 2024 1:18pm Advance Directives Yes August 09 8:35am Advance Directive Response Recorded Date/ Time Do you have a Healthcare Power of Account Executive Sales Representative? No December 06, 2024 1:18pm Do you have a Healthcare Power of Account Executive Sales Representative? Yes January 27, 2025 1:16pm Name of Medical Power of Account Executive Sales Representative daughter January 27, 2025 1:16pm Advance Directives Yes August 09 8:35am Chief Complaint and Reason for Visit [...] Date Polyneuropathy November 06, 2024 11:4 9am Chief Complaint Admit Date pain fall- LEFT SHOULDER September 02 5:05pm SCREENING October 07, 2024 6:56a m 6 M FU November 06, 2024 11:4 9am weakness December 06, 2024 1:07 pm Chief Complaint Admit Date SCREENING October 07, 2024 6:56a m 6 M FU November 06, 2024 11:4 9am weakness December 06, 2024 1:07 pm upper extremity injury January 27 12:46pm Reason for Referral Specialty Diagnoses / Procedures Referred By Jace pereira Referred To Contact Endocrinology Diagnoses Malignant neoplasm of upper-inner quadrant of right breast in female, estrogen receptor positive (HCC) Procedures CONSULT TO ENDOCRINOLOGY OFFICE/OUTPATIENT [facility] 60-74 MINUTES Alex Danielle PA-C [address] [place] [address] Referral ID Status Reason Start Date Expiration Date Visits Requested Visits Authorized [id number] Authorized PCP Requested Referral 12/26/2022 12/26/2023 1 1 Specialty Diagnoses / Procedures Referred By Contfarshad t Referred To Contact [facility] Diagnoses Malignant neoplasm of upper-inner quadrant of right breast in female, estrogen receptor positive (HCC) Procedures CONSULT TO BREAST REHAB PROGRAM THERAPEUTIC EXERCISES RE, EA 15 MIN. THERAPEUT ACTVITY DIRECT PT CONTACT EACH 15 MIN Alex Danielle PA-C [address] [place] [address] [facility] [address] [address] Referral ID Status Reason Start Date Expiration Date Visits Requested Visits Authorized [id number] Authorized PCP Requested Referral Auto-Generate d Referral 01/17/2023 01/17/2024 99 99 Specialty Diagnoses / Procedures Referred By Contfarshad t Referred To Contact Diagnoses Malignant neoplasm of upper-inner quadrant of right breast in female, estrogen receptor positive (HCC) Procedures CT SIM PLANNING RADIATION ONCOLOGY THER RAD SIMULAJ-AIDED FIELD SETTING COMPLEX Joy Barry MD, [address] [place] [address] Referral ID Status Reason Start Date Expiration Date Visits Requested Visits Authorized [id number] Pending Review PCP Requested Referral 3 05/22/2023 1 1 Medications Administered Section Inactive Administered Medications - up to 3 most recent administrations Medication Order MAR Action Action Date Dose Rate Site zoledronic ro-lxoujosi-9.9NaCl 4 mg iv piggyback 100 mL (ZOMETA) 4 mg, INTRAVENOUS, Administer over 15 Minutes, ONCE, 1 dose, On Sun04/03/23 at 1030, Hazardous Potential Reproductive Risk Drug: Use appropriate PPE. New Bag/Syringe/Bottle 04/03/2023 10:23 AM EST 4 mg Additional Source Comments INFORMATION SOURCE (unrecogn ized section and content) DATE CREATED AUTHOR 10/13/2018 [facility] ([place]) DATE CREATED AUTHOR AUTHOR'S ORGANIZ ATION 02/25/2023 [facility] DATE CREATED AUTHOR AUTHOR'S ORGANIZ ATION 12/07/2024 [facility] DATE CREATED AUTHOR AUTHOR'S ORGANIZ ATION 03/17/2025 [facility] DATE CREATED AUTHOR AUTHOR'S ORGANIZ ATION 03/24/2025 [facility] Source Comments (unrecognize d section and content) In the event this informatio n is protected by the Federal Confidentiality of Alcohol and Drug Abuse Patient Records regulations: The Federal rules restrict any use of the information to criminally investigate or prosecute any alcohol or drug abuse patient.[facility] the event this information is protected by the Federal Confidentiality of Alcohol and Drug Abuse Patient Records regulations: The Federal rules restrict any use of the information to criminally investigate or prosecute any alcohol or drug abuse patient.[facility] the event this information is protected by the Federal Confidentiality of Alcohol and Drug Abuse Patient Records regulations: The Federal rules restrict any use of the information to criminally investigate or prosecute any alcohol or drug abuse patient.[facility] the event this information is protected by the Federal Confidentiality of Alcohol and Drug Abuse Patient Records regulations: The Federal rules restrict any use of the information to criminally investigate or prosecute any alcohol or drug abuse patient.[facility] the event this information is protected by the Federal Confidentiality of Alcohol and Drug Abuse Patient Records regulations: The Federal rules restrict any use of the information to criminally investigate or prosecute any alcohol or drug abuse patient.[facility] the event this information is protected by the Federal Confidentiality of Alcohol and Drug Abuse Patient Records regulations: The Federal rules restrict any use of the information to criminally investigate or prosecute any alcohol or drug abuse patient.[facility] the event this information is protected by the Federal Confidentiality of Alcohol and Drug Abuse Patient Records regulations: The Federal rules restrict any use of the information to criminally investigate or prosecute any alcohol or drug abuse patient.[facility] the event this information is protected by the Federal Confidentiality of Alcohol and Drug Abuse Patient Records regulations: The Federal rules restrict any use of the information to criminally investigate or prosecute any alcohol or drug abuse patient.[facility] the event this information is protected by the Federal Confidentiality of Alcohol and Drug Abuse Patient Records regulations: The Federal rules restrict any use of the information to criminally investigate or prosecute any alcohol or drug abuse patient.[facility] the event this information is protected by the Federal Confidentiality of Alcohol and Drug Abuse Patient Records regulations: The Federal rules restrict any use of the information to criminally investigate or prosecute any alcohol or drug abuse patient.[facility] the event this information is protected by the Federal Confidentiality of Alcohol and Drug Abuse Patient Records regulations: The Federal rules restrict any use of the information to criminally investigate or prosecute any alcohol or drug abuse patient.[facility] the event this information is protected by the Federal Confidentiality of Alcohol and Drug Abuse Patient Records regulations: The Federal rules restrict any use of the information to criminally investigate or prosecute any alcohol or drug abuse patient.[facility] the event this information is protected by the Federal Confidentiality of Alcohol and Drug Abuse Patient Records regulations: The Federal rules restrict any use of the information to criminally investigate or prosecute any alcohol or drug abuse patient.[facility] the event this information is protected by the Federal Confidentiality of Alcohol and Drug Abuse Patient Records regulations: The Federal rules restrict any use of the information to criminally investigate or prosecute any alcohol or drug abuse patient.[facility] the event this information is protected by the Federal Confidentiality of Alcohol and Drug Abuse Patient Records regulations: The Federal rules restrict any use of the information to criminally investigate or prosecute any alcohol or drug abuse patient.[facility] the event this information is protected by the Federal Confidentiality of Alcohol and Drug Abuse Patient Records regulations: The Federal rules restrict any use of the information to criminally investigate or prosecute any alcohol or drug abuse patient.[facility] the event this information is protected by the Federal Confidentiality of Alcohol and Drug Abuse Patient Records regulations: The Federal rules restrict any use of the information to criminally investigate or prosecute any alcohol or drug abuse patient.[facility] the event this information is protected by the Federal Confidentiality of Alcohol and Drug Abuse Patient Records regulations: The Federal rules restrict any use of the information to criminally investigate or prosecute any alcohol or drug abuse patient.[facility] the event this information is protected by the Federal Confidentiality of Alcohol and Drug Abuse Patient Records regulations: The Federal rules restrict any use of the information to criminally investigate or prosecute any alcohol or drug abuse patient.[facility] the event this information is protected by the Federal Confidentiality of Alcohol and Drug Abuse Patient Records regulations: The Federal rules restrict any use of the information to criminally investigate or prosecute any alcohol or drug abuse patient.[facility] the event this information is protected by the Federal Confidentiality of Alcohol and Drug Abuse Patient Records regulations: The Federal rules restrict any use of the information to criminally investigate or prosecute any alcohol or drug abuse patient.[facility] the event this information is protected by the Federal Confidentiality of Alcohol and Drug Abuse Patient Records regulations: The Federal rules restrict any use of the information to criminally investigate or prosecute any alcohol or drug abuse patient.[facility] HospitalIn the event this information is protected by the Federal Confidentiality of Alcohol and Drug Abuse Patient Records regulations: The Federal rules restrict any use of the information to criminally investigate or prosecute any alcohol or drug abuse patient.[facility]In the event this information is protected by the Federal Confidentiality of Alcohol and Drug Abuse Patient Records regulations: The Federal rules restrict any use of the information to criminally investigate or prosecute any alcohol or drug abuse patient.[facility] HospitalIn the event this information is protected by the Federal Confidentiality of Alcohol and Drug Abuse Patient Records regulations: The Federal rules restrict any use of the information to criminally investigate or prosecute any alcohol or drug abuse patient.[facility] HospitalIn the event this information is protected by the Federal Confidentiality of Alcohol and Drug Abuse Patient Records regulations: The Federal rules restrict any use of the information to criminally investigate or prosecute any alcohol or drug abuse patient.[facility] HospitalIn the event this information is protected by the Federal Confidentiality of Alcohol and Drug Abuse Patient Records regulations: The Federal rules restrict any use of the information to criminally investigate or prosecute any alcohol or drug abuse patient.[facility] HospitalIn the event this information is protected by the Federal Confidentiality of Alcohol and Drug Abuse Patient Records regulations: The Federal rules restrict any use of the information to criminally investigate or prosecute any alcohol or drug abuse patient.[facility] HospitalIn the event this information is protected by the Federal Confidentiality of Alcohol and Drug Abuse Patient Records regulations: The Federal rules restrict any use of the information to criminally investigate or prosecute any alcohol or drug abuse patient.[facility] HospitalIn the event this information is protected by the Federal Confidentiality of Alcohol and Drug Abuse Patient Records regulations: The Federal rules restrict any use of the information to criminally investigate or prosecute any alcohol or drug abuse patient.[facility] HospitalIn the event this information is protected by the Federal Confidentiality of Alcohol and Drug Abuse Patient Records regulations: The Federal rules restrict any use of the information to criminally investigate or prosecute any alcohol or drug abuse patient.[facility] HospitalIn the event this information is protected by the Federal Confidentiality of Alcohol and Drug Abuse Patient Records regulations: The Federal rules restrict any use of the information to criminally investigate or prosecute any alcohol or drug abuse patient.[facility] HospitalIn the event this information is protected by the Federal Confidentiality of Alcohol and Drug Abuse Patient Records regulations: The Federal rules restrict any use of the information to criminally investigate or prosecute any alcohol or drug abuse patient.[facility] HospitalIn the event this information is protected by the Federal Confidentiality of Alcohol and Drug Abuse Patient Records regulations: The Federal rules restrict any use of the information to criminally investigate or prosecute any alcohol or drug abuse patient.[facility] HospitalIn the event this information is protected by the Federal Confidentiality of Alcohol and Drug Abuse Patient Records regulations: The Federal rules restrict any use of the information to criminally investigate or prosecute any alcohol or drug abuse patient.[facility] HospitalIn the event this information is protected by the Federal Confidentiality of Alcohol and Drug Abuse Patient Records regulations: The Federal rules restrict any use of the information to criminally investigate or prosecute any alcohol or drug abuse patient.[facility] HospitalIn the event this information is protected by the Federal Confidentiality of Alcohol and Drug Abuse Patient Records regulations: The Federal rules restrict any use of the information to criminally investigate or prosecute any alcohol or drug abuse patient.[facility] HospitalIn the event this information is protected by the Federal Confidentiality of Alcohol and Drug Abuse Patient Records regulations: The Federal rules restrict any use of the information to criminally investigate or prosecute any alcohol or drug abuse patient.[facility] HospitalIn the event this information is protected by the Federal Confidentiality of Alcohol and Drug Abuse Patient Records regulations: The Federal rules restrict any use of the information to criminally investigate or prosecute any alcohol or drug abuse patient.[facility] HospitalIn the event this information is protected by the Federal Confidentiality of Alcohol and Drug Abuse Patient Records regulations: The Federal rules restrict any use of the information to criminally investigate or prosecute any alcohol or drug abuse patient.[facility] HospitalIn the event this information is protected by the Federal Confidentiality of Alcohol and Drug Abuse Patient Records regulations: The Federal rules restrict any use of the information to criminally investigate or prosecute any alcohol or drug abuse patient.[facility] HospitalIn the event this information is protected by the Federal Confidentiality of Alcohol and Drug Abuse Patient Records regulations: The Federal rules restrict any use of the information to criminally investigate or prosecute any alcohol or drug abuse patient.[facility] HospitalIn the event this information is protected by the Federal Confidentiality of Alcohol and Drug Abuse Patient Records regulations: The Federal rules restrict any use of the information to criminally investigate or prosecute any alcohol or drug abuse patient.[facility] HospitalIn the event this information is protected by the Federal Confidentiality of Alcohol and Drug Abuse Patient Records regulations: The Federal rules restrict any use of the information to criminally investigate or prosecute any alcohol or drug abuse patient.[facility] HospitalIn the event this information is protected by the Federal Confidentiality of Alcohol and Drug Abuse Patient Records regulations: The Federal rules restrict any use of the information to criminally investigate or prosecute any alcohol or drug abuse patient.[facility] HospitalIn the event this information is protected by the Federal Confidentiality of Alcohol and Drug Abuse Patient Records regulations: The Federal rules restrict any use of the information to criminally investigate or prosecute any alcohol or drug abuse patient.[facility] HospitalIn the event this information is protected by the Federal Confidentiality of Alcohol and Drug Abuse Patient Records regulations: The Federal rules restrict any use of the information to criminally investigate or prosecute any alcohol or drug abuse patient.[facility] HospitalIn the event this information is protected by the Federal Confidentiality of Alcohol and Drug Abuse Patient Records regulations: The Federal rules restrict any use of the information to criminally investigate or prosecute any alcohol or drug abuse patient.[facility] HospitalIn the event this information is protected by the Federal Confidentiality of Alcohol and Drug Abuse Patient Records regulations: The Federal rules restrict any use of the information to criminally investigate or prosecute any alcohol or drug abuse patient.[facility] HospitalIn the event this information is protected by the Federal Confidentiality of Alcohol and Drug Abuse Patient Records regulations: The Federal rules restrict any use of the information to criminally investigate or prosecute any alcohol or drug abuse patient.[facility] HospitalIn the event this information is protected by the Federal Confidentiality of Alcohol and Drug Abuse Patient Records regulations: The Federal rules restrict any use of the information to criminally investigate or prosecute any alcohol or drug abuse patient.[facility] HospitalIn the event this information is protected by the Federal Confidentiality of Alcohol and Drug Abuse Patient Records regulations: The Federal rules restrict any use of the information to criminally investigate or prosecute any alcohol or drug abuse patient.[facility] HospitalIn the event this information is protected by the Federal Confidentiality of Alcohol and Drug Abuse Patient Records regulations: The Federal rules restrict any use of the information to criminally investigate or prosecute any alcohol or drug abuse patient.[facility] HospitalIn the event this information is protected by the Federal Confidentiality of Alcohol and Drug Abuse Patient Records regulations: The Federal rules restrict any use of the information to criminally investigate or prosecute any alcohol or drug abuse patient.[facility] HospitalIn the event this information is protected by the Federal Confidentiality of Alcohol and Drug Abuse Patient Records regulations: The Federal rules restrict any use of the information to criminally investigate or prosecute any alcohol or drug abuse patient.[facility] HospitalIn the event this information is protected by the Federal Confidentiality of Alcohol and Drug Abuse Patient Records regulations: The Federal rules restrict any use of the information to criminally investigate or prosecute any alcohol or drug abuse patient.[facility] HospitalIn the event this information is protected by the Federal Confidentiality of Alcohol and Drug Abuse Patient Records regulations: The Federal rules restrict any use of the information to criminally investigate or prosecute any alcohol or drug abuse patient.[facility] HospitalIn the event this information is protected by the Federal Confidentiality of Alcohol and Drug Abuse Patient Records regulations: The Federal rules restrict any use of the information to criminally investigate or prosecute any alcohol or drug abuse patient.[facility] HospitalIn the event this information is protected by the Federal Confidentiality of Alcohol and Drug Abuse Patient Records regulations: The Federal rules restrict any use of the information to criminally investigate or prosecute any alcohol or drug abuse patient.[facility] HospitalIn the event this information is protected by the Federal Confidentiality of Alcohol and Drug Abuse Patient Records regulations: The Federal rules restrict any use of the information to criminally investigate or prosecute any alcohol or drug abuse patient.[facility] HospitalIn the event this information is protected by the Federal Confidentiality of Alcohol and Drug Abuse Patient Records regulations: The Federal rules restrict any use of the information to criminally investigate or prosecute any alcohol or drug abuse patient.[facility] HospitalIn the event this information is protected by the Federal Confidentiality of Alcohol and Drug Abuse Patient Records regulations: The Federal rules restrict any use of the information to criminally investigate or prosecute any alcohol or drug abuse patient.[facility] HospitalIn the event this information is protected by the Federal Confidentiality of Alcohol and Drug Abuse Patient Records regulations: The Federal rules restrict any use of the information to criminally investigate or prosecute any alcohol or drug abuse patient.[facility] HospitalIn the event this information is protected by the Federal Confidentiality of Alcohol and Drug Abuse Patient Records regulations: The Federal rules restrict any use of the information to criminally investigate or prosecute any alcohol or drug abuse patient.[facility] HospitalIn the event this information is protected by the Federal Confidentiality of Alcohol and Drug Abuse Patient Records regulations: The Federal rules restrict any use of the information to criminally investigate or prosecute any alcohol or drug abuse patient.[facility] Reason for Visit (unrecogniz ed section and content) Reason Onset Date Comments 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 Reason Comments [...] (HCC) Bobby Chowdhury, DO [address] [place] [address] [facility] [address] [place] [address] Referral ID Status Reason Start Date Expiration Date V isits Requested Visits Authorized [id number] Authorized 02/12/2023 05/13/2023 99 99 Reason Comments Established Patient Reason Comments Research [id number] Consent Reason Comments Recheck Reason Comments Medication Problem Return Call Request Reason Onset Date Comments Refill Request 08/04/2023 Specialty Diagnoses / Procedures [facility] Referred To Contact Diagnoses Malignant neoplasm of upper-inner quadrant of right breast in female, estrogen receptor positive (HCC) Susan Wilkinson APRN.ELECTRICAL INTERN [address] [place] [address] [facility] [address] [place] [address] Referral ID Status Reason Start Date Expiration Date V isits Requested Visits Authorized [id number] Authorized 04/27/2023 07/26/2023 99 99 Reason Comments Electronic Communication Reason Onset Date Comments Refill Request 12/19/2023 Reason Comments [facility] Specialty Diagnoses / Procedures Referred By [facility] t Referred To Contact Diagnoses Malignant neoplasm of upper-inner quadrant of right breast in female, estrogen receptor positive (HCC) Susan Wilkinson APRN.ELECTRICAL INTERN [address] [place] [address] Phone: tel: fax: Susan Wilkinson APRN.ELECTRICAL INTERN [address] [place] [address] Phone: tel: fax: Referral ID Status Reason Start Date Expiration Date V isits Requested Visits Authorized [id number] Authorized 08/18/2024 11/16/2024 99 99 Reason Comments Refill Request Goals (unrecognized section and content) Goals may [...] may be documented in an alternate section No data available for this section Care Teams (unrecognized sec tion and [...] Primary Care Provider, Referr ing Provider Active nAuj BHATT PA Attending Provider Active Team Status: Inactive Member Role Status Dates Dr. Benny Bosch MD Primary Care Provider Active Elton BHATT PA-C Attending Provider, Referring Pr ovider Active [...] Provider, Referr ing Provider Active Benny Livingston GUEST SERVICES ASSISTANT, GUEST SERVICES ASSISTANT-C Attending Provider Active Team Status: Inactive Member Role Status Dates Dr. Benny Bosch MD Primary Care Provider Active Dr. Kristian Alvarez DO Attending Provider, Emergency [place] Active Team Status: Inactive Member Role Status Dates Dr. Benny Bosch MD Primary Care Provider Active Benny Livingston GUEST SERVICES ASSISTANT, GUEST SERVICES ASSISTANT-C Attending Provider, Referring Pro vider Active Team [...] Active Dr. Alejandro Morales MD Attending Provider, James corbett Provider Active Front Office Medical Assistant Relationship Specialty Start Date End Date Benny Bosch MD [address] [place] [address] PCP - General Family Medicine 12/27/22 Front Office Medical Assistant Relationship Specialty Start Date End Date Benny Bosch MD [address] [place] [address] PCP - General Family Medicine 12/27/22 Front Office Medical Assistant Relationship Specialty Start Date End Date Benny Bosch MD [address] [place] [address] PCP - General Family Medicine 12/27/22 Front Office Medical Assistant Relationship Specialty Start Date End Date Benny Bosch MD [address] [place] [address] PCP - General Family Medicine 12/27/22 Front Office Medical Assistant Relationship Specialty Start Date End Date Benny Bosch MD [address] [place] [address] PCP - General Family Medicine 12/27/22 Front Office Medical Assistant Relationship Specialty Start Date End Date Benny Bosch MD [address] [place] [address] PCP - General Family Medicine 12/27/22 Front Office Medical Assistant Relationship Specialty Start Date End Date Benny Bosch MD [address] [place] [address] PCP - General Family Medicine 12/27/22 Front Office Medical Assistant Relationship Specialty Start Date End Date Benny Bosch MD [address] [place] [address] PCP - General Family Medicine 12/27/22 Front Office Medical Assistant Relationship Specialty Start Date End Date Benny Bosch MD [address] [place] [address] PCP - General Family Medicine 12/27/22 Front Office Medical Assistant Relationship Specialty Start Date End Date Benny Bosch MD [address] [place] [address] PCP - General Family Medicine 12/27/22 Joy Barry MD, [address] [place] [address] Physician Radiation Oncology 01/11/23 Front Office Medical Assistant Relationship Specialty Start Date End Date Benny Bosch MD [address] [place] [address] PCP - General Family Medicine 12/27/22 Joy Barry MD, [address] [place] [address] Physician Radiation Oncology 01/11/23 Front Office Medical Assistant Relationship Specialty Start Date End Date Benny Bosch MD [address] [place] [address] PCP - General Family Medicine 12/27/22 Joy Barry MD, [address] [place] [address] Physician Radiation Oncology 01/11/23 Front Office Medical Assistant Relationship Specialty Start Date End Date Benny Bosch MD [address] [place] [address] PCP - General Family Medicine 12/27/22 Joy Barry MD, [address] [place] [address] Physician Radiation Oncology 01/11/23 Front Office Medical Assistant Relationship Specialty Start Date End Date Benny Bosch MD [address] [facility] [address] [place] [address] PCP - General Family Medicine 12/27/22 Joy Barry MD, [address] [place] [address] Physician Radiation Oncology 01/11/23 Front Office Medical Assistant Relationship Specialty Start Date End Date Benny Bosch MD [address] [facility] [address] [place] [address] PCP - General Family Medicine 12/27/22 Joy Baryr MD, [address] [place] [address] Physician Radiation Oncology 01/11/23 Front Office Medical Assistant Relationship Specialty Start Date End Date Benny Bosch MD [address] [place], [place] [address] PCP - General Family Medicine 12/27/22 Joy Barry MD, [address] [place] [address] Physician Radiation Oncology 01/11/23 Front Office Medical Assistant Relationship Specialty Start Date End Date Benny Bosch MD [address] [place], [place] [address] PCP - General Family Medicine 12/27/22 Joy Barry MD, [address] [place] [address] Physician Radiation Oncology 01/11/23 Front Office Medical Assistant Relationship Specialty Start Date End Date Benny Bosch MD [address] [place] [address] PCP - General Family Medicine 12/27/22 Joy Barry MD, [address] [place] [address] Physician Radiation Oncology 01/11/23 Front Office Medical Assistant Relationship Specialty Start Date End Date Benny Bosch MD [address] [place] [address] PCP - General Family Medicine 12/27/22 Joy Barry MD, [address] [place] [address] Physician Radiation Oncology 01/11/23 Front Office Medical Assistant Relationship Specialty Start Date End Date Benny Bosch MD [address] [place] [address] PCP - General Family Medicine 12/27/22 Joy Barry MD, [address] [place] [address] Physician Radiation Oncology 01/11/23 Front Office Medical Assistant Relationship Specialty Start Date End Date Benny Bosch MD [address] [place] [address] PCP - General Family Medicine 12/27/22 Joy Barry MD, [address] [place] [address] Physician Radiation Oncology 01/11/23 Front Office Medical Assistant Relationship Specialty Start Date End Date Benny Bosch MD [address] [facility] [address] [place] [address] PCP - General Family Medicine 12/27/22 Joy Barry MD, [address] [place] [address] Physician Radiation Oncology 01/11/23 Front Office Medical Assistant Relationship Specialty Start Date End Date Benny Bosch MD [address] [facility] [address] [place] [address] PCP - General Family Medicine 12/27/22 Joy Barry MD, [address] [place] [address] Physician Radiation Oncology 01/11/23 Front Office Medical Assistant Relationship Specialty Start Date End Date Benny Bosch MD [address] [place] [address] PCP - General Family Medicine 12/27/22 Joy Barry MD, [address] [place] [address] Physician Radiation Oncology 01/11/23 Front Office Medical Assistant Relationship Specialty Start Date End Date Benny Bosch MD [address] [place] [address] PCP - General Family Medicine 12/27/22 Joy Barry MD, [address] [place] [address] Physician Radiation Oncology 01/11/23 Front Office Medical Assistant Relationship Specialty Start Date End Date Benny Bosch MD [address] [facility] [address] [place] [address] PCP - General Family Medicine 12/27/22 Joy Barry MD, [address] [place] [address] Physician Radiation Oncology 01/11/23 Front Office Medical Assistant Relationship Specialty Start Date End Date Benny Bosch MD [address] [facility] [address] [place] [address] PCP - General Family Medicine 12/27/22 Joy Barry MD, [address] [place] [address] Physician Radiation Oncology 01/11/23 Front Office Medical Assistant Relationship Specialty Start Date End Date Benny Bosch MD [address] [facility] [address] [place], [place] [address] PCP - General Family Medicine 12/27/22 Joy Barry MD, [address] [place] [address] Physician Radiation Oncology 01/11/23 Front Office Medical Assistant Relationship Specialty Start Date End Date Benny Bosch MD [address] [place] [address] PCP - General Family Medicine 12/27/22 Joy Barry MD, [address] [place] [address] Physician Radiation Oncology 01/11/23 Front Office Medical Assistant Relationship Specialty Start Date End Date Benny Bosch MD [address] [place] [address] PCP - General Family Medicine 12/27/22 Joy Barry MD, [address] [place] [address] Physician Radiation Oncology 01/11/23 Team Status: Inactive [...] Benny Bosch MD Primary Care Provider Active ERICA AguiarC Attending Provider, Referring Provider Active Front Office Medical Assistant Relationship Specialty Start Date End Date Benny Bosch MD [address] [place] [address] PCP - General Family Medicine 12/27/22 Joy Barry MD [address] [place] [address] Physician Radiation Oncology 01/11/23 Team Status: Active [...] Dates Dr. Cong Morrison MD Primary Care Provider, Referr ing Provider Active NOVA Antonio Attending Provider Active Team Status: Inactive Member Role Status Dates Dr. Cong Morrison MD Primary Care Provider Active Anuj BHATT PA Attending Provider, Referring Provi wilma Active Front Office Medical Assistant Relationship Specialty Start Date End Date Benny Bosch MD [address] [place] [address] PCP - General Family Medicine 12/27/22 Joy Barry MD [address] [place] [address] Physician Radiation Oncology 01/11/23 Front Office Medical Assistant Relationship Specialty Start Date End Date Benny Bosch MD [address] [place] [address] PCP - General Family Medicine 12/27/22 Joy Barry MD [address] [place] [address] Physician Radiation Oncology 01/11/23 Team Status: Inactive Member Role Status Dates Dr. Cong Morrison MD Primary Care Pr ovider, Attending Provider, Referring Provider Active Front Office Medical Assistant Relationship Specialty Start Date End Date Benny Bosch MD [address] [place] [address] PCP - General Family Medicine 12/27/22 Joy Barry MD [address] [place] [address] Physician Radiation Oncology 01/11/23 Front Office Medical Assistant Relationship Specialty Start Date End Date Benny Bosch MD [address] [place] [address] PCP - General Family Medicine 12/27/22 Joy Barry MD [address] [place] [place] [address] Physician Radiation Oncology 01/11/23 Front Office Medical Assistant Relationship Specialty Start Date End Date Benny Bosch MD [address] [facility] [address] [place] [address] PCP - General Family Medicine 12/27/22 Joy Barry MD [address] [place] [address] Physician Radiation Oncology 01/11/23 Front Office Medical Assistant Relationship Specialty Start Date End Date Benny Bosch MD [address] [facility] [address] [place] [address] PCP - General Family Medicine 12/27/22 Joy Barry MD [address] [place] [address] Physician Radiation Oncology 01/11/23 Front Office Medical Assistant Relationship Specialty Start Date End Date Benny Bosch MD [address] [facility] [address] [place] [address] PCP - General Family Medicine 12/27/22 Joy Barry MD [address] [place] [address] Physician Radiation Oncology 01/11/23 Front Office Medical Assistant Relationship Specialty Start Date End Date Benny Bosch MD [address] [facility] [address] [place] [address] PCP - General Family Medicine 12/27/22 Joy Barry MD [address] [place] [address] Physician Radiation Oncology 01/11/23 Front Office Medical Assistant Relationship Specialty Start Date End Date Benny Bosch MD [address] [facility] [address] [place] [address] PCP - General Family Medicine 12/27/22 Joy Barry MD [address] [place] [address] Physician Radiation Oncology 01/11/23 Front Office Medical Assistant Relationship Specialty Start Date End Date Benny Bosch MD [address] [facility] [address] [place] [address] PCP - General Family Medicine 12/27/22 Joy Barry MD [address] [place] [address] Physician Radiation Oncology 01/11/23 Front Office Medical Assistant Relationship Specialty Start Date End Date Benny Bosch MD [address] [facility] [address] [place] [address] PCP - General Family Medicine 12/27/22 Joy Barry MD [address] [place] [address] Physician Radiation Oncology 01/11/23 Team Status: Active [...] July 25, 2024 Dr. Leora Villa MD Attending Provider Act [place] Start: July 25, 2024 End: July 25, 2024 Dr. Leora Villa MD Referring Provider Act [place] Start: July 25, 2024 End: July 25, 2024 Front Office Medical Assistant Relationship Specialty Start Date End Date Benny Bosch MD [address] [place] [address] PCP - General Family Medicine 12/27/22 Joy Barry MD [address] [place] [address] Physician Radiation Oncology 01/11/23 Front Office Medical Assistant Relationship Specialty Start Date End Date Benny Bosch MD [address] [facility] [address] [place] [address] PCP - General Family Medicine 12/27/22 Joy Barry MD [address] [place] [address] Physician Radiation Oncology 01/11/23 Team Status: Inactive [...] November 06, 2024 End: November 06, 2024 Team Status: Active Member Role/Relationship Status Dates Dr. Benny Bosch MD Primary Care Provider Active Team Status: Inactive Member Role/Relationship Status Dates Dr. Benny Bosch MD Primary Care Provider Active Start: September 02, 2024 End: September 02, 2024 Dr. Benny Bosch MD Attending Provider Active Start: September 02, 2024 End: September 02, 2024 Dr. Benny Bosch MD Referring Provider Active Start: September 02, 2024 End: September 02, 2024 Team Status: Inactive Member Role/Relationship Status Dates Dr. Benny Bosch MD Primary Care Provider Active Start: October 07, 2024 End: October 07, 2024 Dr. Marshal Park DO Attending Provider Active Start: October 07, 2024 End: October 07, 2024 Dr. Marshal Park DO Referring Provider Active Start: October 07, 2024 End: October 07, 2024 Team Status: Inactive Member Role/Relationship Status Dates Dr. Benny Bosch MD Primary Care Provider Active Start: October 30, 2024 End: October 30, 2024 Dr. Leora Villa MD Attending Provider Act [place] Start: October 30, 2024 End: October 30, 2024 Dr. Leora Villa MD Referring Provider Act [place] Start: October 30, 2024 End: October 30, 2024 Team Status: Inactive Member Role/Relationship Status Dates Dr. Cong Morrison MD Attending Provider Active Start: November 06, 2024 End: November 06, 2024 Dr. Benny Bosch MD Primary Care Provider Active Start: November 06, 2024 End: November 06, 2024 Dr. Benny Bosch MD Referring Provider Active Start: November 06, 2024 End: November 06, 2024 Team Status: Inactive Member Role/Relationship Status Dates Dr. Benny Bosch MD Primary Care Provider Active Start: December 06, 2024 End: December 06, 2024 Dr. You Degroot DO Emergency Provider Active Start: December 06, 2024 End: December 06, 2024 Team Status: Inactive Member Role/Relationship Status Dates Dr. Benny Bosch MD Primary Care Provider Active Start: October 07, 2024 End: October 07, 2024 Dr. Marshal Park DO Attending Provider Active Start: October 07, 2024 End: October 07, 2024 Dr. Marshal Park DO Referring Provider Active Start: October 07, 2024 End: October 07, 2024 Team Status: Inactive Member Role/Relationship Status Dates Dr. Benny Bosch MD Primary Care Provider Active Start: October 30, 2024 End: October 30, 2024 Dr. Leora Villa MD Attending Provider Act [place] Start: October 30, 2024 End: October 30, 2024 Dr. Leora Villa MD Referring Provider Act [place] Start: October 30, 2024 End: October 30, 2024 Team Status: Inactive Member Role/Relationship Status Dates Dr. Cong Morrison MD Attending Provider Active Start: November 06, 2024 End: November 06, 2024 Dr. Benny Bosch MD Primary Care Provider Active Start: November 06, 2024 End: November 06, 2024 Dr. Benny Bosch MD Referring Provider Active Start: November 06, 2024 End: November 06, 2024 Team Status: Inactive Member Role/Relationship Status Dates Dr. Benny Bosch MD Primary Care Provider Active Start: December 06, 2024 End: December 06, 2024 Dr. You Degroot DO Attending Provider Active Start: December 06, 2024 End: December 06, 2024 Dr. You Degroot DO Emergency Provider Active Start: December 06, 2024 End: December 06, 2024 Team Status: Inactive Member Role/Relationship Status Dates Dr. Benny Bosch MD Primary Care Provider Active Start: January 27, 2025 End: January 27, 2025 Dr. Dewey Pardo DO Emergency Provider Active Start: January 27, 2025 End: January 27, 2025 FOR RECORDS PERTAINING TO PATIENTS WHO ARE [...] BE BASED ON THE PRIMARY CLINICAL RECORDS. [facility] [employer] [facility]. provides no warranty or guarantee of the accuracy or completeness of information in this document.
--- NOTE | 2025-04-28 07:05 | BD_ITS ---
PROCEDURE: DEXA BONE DENSITY STUDY 04/28/2025 REASON FOR EXAM: F, age 79 y/o . Postmenopausal. TECHNIQUE: Procedure Code: BDDBD Modality: DX Procedure: DEXA BONE DENSITY STUDY COMPARISON: December 21, 2021. FINDINGS: BMD and T-SCORES Lumbar spine: 1.032 g/cm2, T-score 0.2 Levels: L1 through L4 Change from prior: Improvement of 6.6%. Left femoral neck: 0.675 g/cm2, T-score -1.6 Femoral neck comparison data not recommended for monitoring change. Left total hip: 0.858 g/cm2, T-score -0.6 Change from prior: Improvement of 1.7%. Right femoral neck: 0.653 g/cm2, T-score -1.8 Femoral neck comparison data not recommended for monitoring change. Right total hip: 0.839 g/cm2, T-score -0.8 Change from prior: Improvement of 3.7. Right 1/3 radius: 0.439 g/cm2, T-score -2.6 The World Health Organization has defined the following categories based on bone density: Normal bone density: T-score equal to or greater than -1.0 Osteopenia: T-score between -1.0 and -2.5 Osteoporosis: T-score equal to or less than -2.5 FRAX (or Comparable) Fracture Risk Assessment: 10 Year Probability of Fracture: Major Osteoporotic Fracture: 28% Hip Fracture: 7.5% (Note: FRAX is not to be reported in setting of normal range bone density, osteoporosis on DEXA, known history of osteoporosis, prior osteoporotic hip or vertebral fracture, or for any patient undergoing pharmacological treatment for bone loss.) The National Osteoporosis Foundation (NOF) recommends pharmacological treatment for patients with a FRAX 10-year risk of 3% or higher for a hip fracture, or 20% or higher for a major osteoporotic fracture, to prevent osteoporosis and reduce fracture risk. The patient does meet the pharmacological treatment recommendations for prevention of osteoporosis. BD/Dexa Bone Density Study IMPRESSION: OSTEOPOROSIS. Recommend follow-up as clinically warranted. Reading Location: [id number]
== END 2025-04-28 23:59 | disposition home or self-care (01) ==
LOC: OPBD 06:57
PROVIDERS: PCP Family Medicine; Referring Provider Internal Medicine Endocrinology, Diabetes & Metabolism; Visit Provider Internal Medicine Endocrinology, Diabetes & Metabolism
DX: S42.91XA Fracture of right shoulder girdle, part unspecified, initial encounter for closed fracture (principal); Z78.0 Asymptomatic menopausal state
CPT/HCPCS: 77080

== ENCOUNTER 2025-04-30 13:46 | Emergency (ER) | payer MEDICARE, BC, SELFPAY ==
[2025-04-30 13:48] VITALS: BP 173/96; PULSE 85; RESP 18; TEMP 36.1; O2SAT 99; BMI 33.1
--- NOTE | 2025-04-30 14:13 | RAD_ITS ---
PROCEDURE: HAND MIN 3 VIEWS 04/30/2025 REASON FOR EXAM: PAIN, EDEMA Recent fall. Soft tissue swelling. TECHNIQUE: Procedure Code: ANH Modality: DX Procedure: HAND MIN 3 VIEWS COMPARISON: None FINDINGS: No fracture is seen. No evidence of dislocation. Soft tissue swelling. RAD/Hand Min 3 Views IMPRESSION: Soft tissue swelling. Reading Location: [facility]
--- NOTE | 2025-04-30 15:35 | EX.ED.UPPERE ---
HPI History of Present Illness Chief Complaint: Upper Extremity Injury Informant: patient Narrative Narrative: 79-year-old female presenting to the emergency room with chief complaint of right hand pain. Patient states that 2 nights ago she fell out of bed striking her hand on the ground. She has developed swelling and bruising and tenderness along the medial dorsal aspect of the hand. Her she also notes some bruising on the palmar surface. She is left-handed. Patient denies any other injuries. She denies neck pain. No headache. She denies striking her head. [facility] Medical History Cancer Thyroid disease Diabetes Leg cramps History of neuropathy History of recent fall Fatty liver Restless legs Dietary restriction History of hiatal hernia History of ulceration Abdominal pain Post-menopausal Wears hearing aid Wears glasses Insulin dependent diabetes mellitus High cholesterol Back pain Gastric reflux Former smoker History of echocardiogram History of stress test Hx of corn of toe Hx of dermabrasion Bloating Hypergammaglobulinemia CKD (chronic kidney disease) Hyperlipidemia Cataracts, bilateral Increased urinary frequency Back pain Difficulty balancing Arthritis Thyroid disease Hypertension Home Medications ?Medication ?Instructions ?Recorded ?Last Taken ?Type levothyroxine 150 mcg tablet 150 mcg PO DAILY 12/03/14 06/03/24 08:00 History blood sugar diagnostic #100 ea 01/24/19 03/15/22 History blood-glucose meter #1 ea 01/24/19 03/15/22 History metformin 500 mg tablet,extended 2,000 mg PO QHS #360 tabs 01/24/19 03/15/22 History release 24 hr insulin glargine U-300 conc 300 70 unit subcut 1730 02/14/21 05/23/24 History unit/mL (1.5 mL) subcutaneous pen (Toujeo SoloStar U-300 Insulin) ibuprofen 400 mg tablet 400 mg PO Q6H PRN Pain 03/08/22 03/15/22 History olmesartan 20 mg tablet (Benicar) 40 mg PO DAILY 11/15/22 06/03/24 08:00 History cholecalciferol (vitamin D3) 50 50 mcg PO DAILY 11/27/22 Unknown History mcg (2,000 unit) capsule diphenhydramine HCl 25 mg capsule 25 mg PO QHS PRN sleep 11/27/22 Unknown History (Benadryl) magnesium oxide 1,600 mg PO DAILY 11/27/22 Unknown History rosuvastatin 20 mg tablet 20 mg PO DAILY 11/27/22 Unknown History Bilateral wrist splints #2 ea 12/21/22 Unknown Rx anastrozole 1 mg tablet 1 mg PO DAILY 10/05/23 Unknown History insulin lispro 100 unit/mL 40 unit subcut .COMPLEX 04/02/24 Unknown History subcutaneous half-unit pen (Humalog Junior Gauthier (U-100)) ondansetron HCl 4 mg tablet 4 mg PO Q8H PRN nausea and vomiting 05/30/24 Unknown History omeprazole 40 mg capsule,delayed 40 mg PO BID abdominal pain 90 06/17/24 Unknown Rx release days #180 caps duloxetine 60 mg capsule,delayed 60 mg PO QHS #90 caps 11/07/24 Unknown Rx release pregabalin 200 mg capsule 200 mg PO BID 11/07/24 Unknown History cefdinir 300 mg capsule 300 mg PO BID #13 caps 12/06/24 Unknown Rx ondansetron 4 mg disintegrating 4 mg PO Q6H PRN nausea and 01/27/25 Unknown Rx tablet vomiting #20 tabs oxycodone-acetaminophen 5 mg-325 1 tab PO Q6H PRN pain 2 days #8 01/27/25 Unknown Rx mg tablet (Endocet) tabs Allergy/AdvReac Type Severity Reaction Status Date / Time gabapentin AdvReac Severe Other Verified 04/30/25 13:50 Family History Father Cancer lung/liver/pancreas Myocardial infarction Heart disease Grandfather Rectal cancer paternal Surgical History History of esophagogastroduodenoscopy (EGD) History of back surgery Hx of right mastectomy History of right breast biopsy (~11/2022) S/P ORIF (open reduction internal fixation) fracture Hx of arthroscopic knee surgery Hx of tubal ligation Social History housing: house Smoking Status: Former smoker alcohol intake: never ROS ROS ED Constitutional Constitutional ED: Denies chills, fever(s) or weight loss Eyes Eyes: Denies change in vision or diplopia ENT ENT ED: Denies ear pain, rhinorrhea or sore throat Cardiovascular Cardiovascular: Denies chest pain, orthopnea, palpitations or racing heartbeat Respiratory/Chest Respiratory/Chest: Denies cough, dyspnea or orthopnea Gastrointestinal Gastrointestinal: Denies abdominal pain, diarrhea, nausea or vomiting Genitourinary Genitourinary ED: Denies dysuria, hematuria or urinary frequency Musculoskeletal Musculoskeletal: Reports other Details: See history of present illness ; Denies arthralgias, back pain, myalgias or neck pain Integumentary Denies abscess or rash Neurologic Neurologic: Denies headache(s) or weakness Psychiatric Psychiatric: Denies anxiety, depression, suicidal ideation or suicidal thoughts Endocrine Endocrinology: Denies polydipsia, polyphagia or polyuria Allergic/Immunologic Allergic/Immunologic ED: Denies mouth swelling, tongue swelling or urticaria EXAM Physical Exam Const Vital Signs: 04/30/25 13:48 Temperature 96.9 F L Temperature Source Temporal Pulse Rate 85 Respiratory Rate 18 Blood Pressure 173/96 H Blood Pressure Mean 121 Pulse Ox 99 Oxygen Delivery Method Room Air Positive well nourished and well developed General Appearance ED: well developed HEENT Reports normocephalic, head/scalp atraumatic and moist mucous membranes Eyes PERRL and EOMs intact bilaterally Neck full ROM, no lymphadenopathy, supple and no JVD General: Negative for tenderness Resp normal respiratory effort and clear to auscultation bilaterally Cardio regular rate, regular rhythm and no murmurs GI normal to inspection, nondistended, normoactive bowel sounds and non-tender Palpation: soft Back/Spine no CVA tenderness and normal ROM Extremity Extremity Narrative: There is mild swelling and ecchymosis located over the medial dorsal surface of the right hand as well as the ulnar surface. She has some tenderness along the shaft of the fourth metacarpal. I do not appreciate tenderness along the fifth metacarpal. There is no malrotation of digits. Normal opposition. No tenderness at the wrist joint. Neurovascularly intact. General Extremety ED: Negative for edema General Extremity: Negative for edema Neuro oriented x3 and CN's II-XII intact bilaterally Sensorium / Orientation: alert Motor Exam: strength 5/5 throughout Psych mental status grossly normal Mood & Affect: Negative for depressed or tearful Skin no rashes or lesions noted and no wounds MDM MDM MDM Narrative Medical decision making narrative: Differential diagnosis includes fracture dislocation contusion tendon injury neurovascular Independent or potation of the plain films of the right hand is no definitive fracture. Radiology read is also negative. I asked specifically for radiologist to reexamine the x-rays pain close attention to the fourth and the fifth metacarpal. There is a subtle lucency located along the shaft of the fifth metacarpal. Is not felt that this represents fracture according to radiology. Again she is not tender in that spot. I spoke with the patient given the above results showed her the imaging. We talked about placing her in a splint. She states that she has an appointment tomorrow with her primary care doctor and would like to wait and see what he thinks about the images before being placed in a splint. Patient to continue ice rest. Return if worsening or concerns History & Record Review Discussion w/independent historian: Patient and Significant other Radiography Diagnostic Testing: Clinical Impression(s) from Imaging Studies Hand X-Ray 04/30/25 14:13 IMPRESSION: Soft tissue swelling. Reading Location: [id number] Discharge Plan Triage Chief Complaint: Upper Extremity Injury ED Provider: Jonathan Brasher Dx/Rx/DC Orders Clinical Impression: Contusion of hand, Fall Instructions: ED Hand Contusion Prescriptions: No Action (DME) blood sugar diagnostic Strip See Rx Instructions .ROUTE .MEDSUPPLY Qty: 100 Patient Comments: use 1 Strip four times daily Rx Instructions: As directed metformin 500 mg tablet extended release 24 hr 2,000 mg PO QHS Qty: 360 Patient Comments: TAKE 4 TABLETS BY MOUTH ONCE DAILY AT NIGHT (DME) blood[place] [facility] Rx Instructions .ROUTE .MEDSUPPLY Qty: 1 Rx Instructions: As directed Toujeo SoloStar U-300 Insulin 300 unit/mL (1.5 mL) insulin pen 70 unit subcut 1730 insulin lispro [Humalog Alec KwikPen U-100] 100 unit/mL insulin pen, half-unit 40 unit subcut .COMPLEX Rx Instructions: Frequency: 1/2 HR PRIOR TO MEAL diphenhydramine HCl [Benadryl] 25 mg capsule 25 mg PO QHS PRN (Reason: sleep) rosuvastatin 20 mg tablet 20 mg PO DAILY cholecalciferol (vitamin D3) 50 mcg (2,000 unit) capsule 50 mcg PO DAILY magnesium oxide 400 mg magnesium tablet 1,600 mg PO DAILY anastrozole 1 mg tablet 1 mg PO DAILY omeprazole 40 mg capsule,delayed release(DR/EC) 40 mg PO BID 90 Days Qty: 180 3RF Rx Instructions: x2 until 04/09 then 1 tablet QD after that duloxetine 60 mg capsule,delayed release(DR/EC) 60 mg PO QHS Qty: 90 2RF pregabalin 200 mg capsule 200 mg PO BID levothyroxine 150 MCG tablet 150 mcg PO DAILY olmesartan [Benicar] 20 mg tablet 40 mg PO DAILY Patient Comments: 1 tablet by mouth once a day ibuprofen 400 mg Tablet 400 mg PO Q6H PRN (Reason: Pain) ondansetron HCl 4 mg tablet 4 mg PO Q8H PRN (Reason: nausea and vomiting) cefdinir 300 mg capsule 300 mg PO BID Qty: 13 0RF oxycodone-acetaminophen [Endocet] 5-325 mg tablet 1 tab PO Q6H PRN (Reason: pain) 2 Days Qty: 8 0RF ondansetron 4 mg tablet,disintegrating 4 mg PO Q6H PRN (Reason: nausea and vomiting) Qty: 20 0RF (DME) Bilateral wrist splints See Rx Instructions .ROUTE .MEDSUPPLY Qty: 2 0RF Rx Instructions: Right and left wrist splints to be worn at night Primary Care Provider: Abhinav Bosch Referrals: Abhinav Bosch MD [Primary Care Provider, Family Practice] - 10-14 Days if not better Print Language: Estonian Disposition Disposition: Home, Self Care
== END 2025-04-30 15:38 | disposition home or self-care (01) ==
PROVIDERS: Emergency Provider Emergency Medicine; PCP Family Medicine; Visit Provider Emergency Medicine
DX: S60.221A Contusion of right hand, initial encounter (principal); E11.22 Type 2 diabetes mellitus with diabetic chronic kidney disease; E11.40 Type 2 diabetes mellitus with diabetic neuropathy, unspecified; N18.9 Chronic kidney disease, unspecified; Z87.891 Personal history of nicotine dependence; W06.XXXA Fall from bed, initial encounter
CPT/HCPCS: 73130; 99282